=== PATIENT | female | born 1995 | race Caucasian/White ===

== ENCOUNTER 2017-05-08 17:28 | Emergency (ER) | payer SELFPAY ==
[2017-05-08 17:29] VITALS: BP 153/95; PULSE 115; RESP 16; TEMP 36.6; O2SAT 99; BMI 29.2
--- NOTE | 2017-05-08 17:56 | NURSING ---
NO OLD EKGS
--- NOTE | 2017-05-08 17:57 | EKG12_ITS ---
Test Reason : CP Blood Pressure : / mmHG Vent. Rate : 100 BPM Atrial Rate : 100 BPM P-R Int : 128 ms QRS Dur : 072 ms QT Int : 358 ms P-R-T Axes : 034 065 037 degrees QTc Int : 461 ms Normal sinus rhythm Normal ECG Confirmed by CLARICE THOMAS ([id number]), clinical editor FLAKO SUMMERS ([id number]) on 05/11/2017 1:17:22 PM Referred By: GABI Confirmed By:CLARICE THOMAS
[2017-05-08] MEDS: 0.9% Normal Saline 1,000 ML 150 ML IV (18:12)
[2017-05-08] MEDS: Ketorolac 30 MG/ML Syringe IV (18:12)
[2017-05-08 18:23] LABS: Absolute Lymphocyte Count 2.44 X10^3/ul (0.83-4.51); Basophil# 0.02 X10^3/uL; Basophil% 0.2 % (0-1); Eosinophil# 0.09 X10^3/uL; Hematocrit 43.2 % (37-47); Hemoglobin 13.6 g/dl (12.0-15.0); Lymphocyte # 2.44 X10^3/ul (4.0); Mean Corp Hgb Conc 31.5 g/gl (32-36); Mean Corpuscular Hgb 28.1 pg (27.0-32.0); Mean Corpuscular Volume 89.3 fL (81-99); Mean Platelet Vol. 9.5 fl (6.2-12.0); Monocyte# 0.82 X10^3/uL; Monocyte% 8.7 % (0-10); Neutrophil # 5.99 X10^3/uL (2.7-7.7); Neutrophil % 63.9 % (47-70); Platelet Count 358 K/mm3 (150-450); RBC Distribution Width SD 42.6 fl (35.1-43.9); Red Blood Count 4.84 M/mm3 (4.2-5.4); White Blood Count 9.4 K/mm3 (4.4-11.0)
[2017-05-08 18:24] LABS: POSITIVE COUNT NO; POSITIVE DIFFERENTIAL NO; POSITIVE MORPHOLOGY NO
--- NOTE | 2017-05-08 18:28 | RAD_ITS ---
XR Chest 2 Views INDICATION: INTERMITTENT CHEST PAIN FOR 2-3 WEEKS. WORSE TODAY COMPARISON: None FINDINGS: Heart size and pulmonary vascularity are within normal limits. The lungs are clear without evidence of airspace consolidation or pleural effusion. The osseous structures are grossly unremarkable. RAD/Chest PA and Lateral IMPRESSION: No radiographic evidence of acute intrathoracic disease. at 1931 Reported and signed by: Parvin Mathews MD Electronically Signed: Parvin Mathews MD at 18:29 EST Tel , Service support ,
[2017-05-08 18:34] LABS: D-Dimer Quantitative (DVT/PE) < 0.27 FEU/ug/m (0.27-0.49)
[2017-05-08 18:39] LABS: Anion Gap 6 (5-15); BUN 9 mg/dL (7-18); Calcium,Total 9.2 mg/dL (8.5-10.1); Chloride 105 mmol/L (98-107); Creatinine, Serum 0.64 mg/dL (0.55-1.02); EST Glomerular Filtration Rate 124 mL/min (>60); Est Glom Filt Rate - Afr Amer 150 mL/min (>60); Estimated Creatinine Clearance 121.08 ml/min; Glucose 92 mg/dL (74-106); Potassium 3.9 mmol/L (3.5-5.1); Sodium Level 139 mmol/L (136-145)
--- NOTE | 2017-05-08 19:18 | ED.VISSUMM ---
- ER Visit Summary Date of Service: 05/08/17 Chief Complaint: Chest pain History of Present Illness: The patient is a 21 F who reports intermittent chest pain for the last 3 weeks. She reports mild lightheadedness today only. She does state she feels like her heart races fast when this happens. She has not yet checked her pulse rate with these episodes. She denies coronary vascular or PE risk factors. Physical Examination: Blood pressure is 153/95, temperature 97.9, heart rate 115, respiratory rate 16, pulse ox 99% on room air. Head and neck examination is unremarkable. Heart is slightly tachycardic and regular. Lung sounds are clear. Does have mild left anterior chest wall tenderness. No crepitus is noted. Abdomen is soft and nontender. Lower extremity examination reveals normal strength and sensation. No calf tenderness or edema is noted. Test Results: EKG is sinus at 100 with no acute ischemia. Two-view chest x-ray is unremarkable. CBC and chemistry studies are normal. Troponin is less than 0.02. D-dimer is less than 0.27. Emergency Department Course and Treatment: She was given Toradol and IV fluids. On repeat evaluation she is resting comfortable. Heart rate is 94. Test results were discussed with her. I advised her that I do not have a definitive cause for her symptoms. I do have concern that she claims her heart races during these episodes. She does need to be seen for follow-up and may require a Holter monitor. Treatment Plan: [] Disposition: Discharge Impression: Chest pain, uncertain etiology This note was generated with [employer] dictation software. It may contain incorrect words, spelling, and punctuation that were not noted in review of the chart prior to signing ED Disposition - Plan for ED Patient: Chief Complaint: Chest Pain Referrals: Ramón Dent DO [Primary Care Provider] -
--- NOTE | 2017-05-08 19:23 | ED.DCSUM_ITS ---
- ER Visit Summary Date of Service: 05/08/17 Chief Complaint: Chest pain History of Present Illness: The patient is a 21 F who reports intermittent chest pain for the last 3 weeks. She reports mild lightheadedness today only. She does state she feels like her heart races fast when this happens. She has not yet checked her pulse rate with these episodes. She denies coronary vascular or PE risk factors. Physical Examination: Blood pressure is 153/95, temperature 97.9, heart rate 115 , respiratory rate 16, pulse ox 99% on room air. Head and neck examination is unremarkable. Heart is slightly tachycardic and regular. Lung sounds are clear. Does have mild left anterior chest wall tenderness. No crepitus is noted. Abdomen is soft and nontender. Lower extremity examination reveals normal strength and sensation. No calf tenderness or edema is noted. Test Results: EKG is sinus at 100 with no acute ischemia. Two-view chest x-ray is unremarkable. CBC and chemistry studies are normal. Troponin is less than 0.02. D-dimer is less than 0.27. Emergency Department Course and Treatment: She was given Toradol and IV fluids. On repeat evaluation she is resting comfortable. Heart rate is 94. Test results were discussed with her. I advised her that I do not have a definitive cause for her symptoms. I do have concern that she claims her heart races during these episodes. She does need to be seen for follow-up and may require a Holter monitor. Treatment Plan: [] Disposition: Discharge Impression: Chest pain, uncertain etiology This note was generated with [employer] dictation software. It may contain incorrect words, spelling, and punctuation that were not noted in review of the chart prior to signing ED Disposition - Plan for ED Patient: Chief Complaint: Chest Pain Referrals: Ramón Dent DO [Primary Care Provider] -
--- NOTE | 2017-05-08 19:23 | ED.DEP ---
ED Disposition - Plan for ED Patient: Disposition: Home or Assisted Living Chief Complaint: Chest Pain Instructions: ED Chest Pain Atypical Unkn Cause Referrals: Gutierrez Wu III, MD [STAFF PHYSICIAN] - As soon as possible
[2017-05-08 19:28] LABS: Pregnancy, Serum, hCG Quali. NEGATIVE Negative (0-9 Nonpreg)
[2017-05-08 19:37] VITALS: BP 140/88; PULSE 88; RESP 20; O2SAT 97
== END 2017-05-08 19:39 | disposition home or self-care (01) ==
PROVIDERS: Emergency Provider Emergency Medicine; Family Provider Pediatrics; PCP Pediatrics
DX: R07.9 Chest pain, unspecified (principal); R42 Dizziness and giddiness; R00.0 Tachycardia, unspecified
CPT/HCPCS: 71046; 80048; 84484; 84703; 85025; 85379; 93005; 96361; 96374; 99284; J7030; A4216

== ENCOUNTER 2018-02-14 19:02 | Emergency (ER) | payer MEDICAID, SELFPAY ==
[2018-02-14 19:03] VITALS: BP 153/97; PULSE 96; RESP 15; TEMP 35.7; O2SAT 100; BMI 33.5
[2018-02-14 22:18] VITALS: BP 112/74; PULSE 71; RESP 15; O2SAT 99
--- NOTE | 2018-02-14 23:59 | ED.VISSUMM ---
- ER Visit Summary Date of Service: 02/14/18 Chief Complaint: Cramping lower abdominal/pelvic pain with vaginal bleeding History of Present Illness: The patient is a 22 F who presents with vaginal bleeding and pelvic cramping pain that started today. The bleeding has resolved. The cramping pain is much milder. She denies orthostatic symptoms. She does report nausea without vomiting diarrhea. She does report frequency without hematuria or dysuria. She states she has A negative blood type and her has A positive blood type. She denies history of bruising or bleeding disorder. She has no other complaints please read written note Physical Examination: Vital signs are normal. She appears in no distress. HEENT is unremarkable. Heart is regular without murmur, gallop or rub. S1 and S2 are normal. Lungs are clear to auscultation with good movement of air bilaterally. Abdomen is soft nontender bowel sounds are present normal. External genitalia normal. There is no blood in the vaginal vault. There is small amount of blood noted near the external loss which appears normal. Uterus is mildly tender. No cervical motion tenderness. No obvious adnexal mass. Test Results: Trans-abdominal pelvic ultrasound performed by la reveals a single live IUP with heart rate of 140-150. There is no gross anomaly noted. The placenta appears normal. Emergency Department Course and Treatment: ABO Rh and RhoGam and transabdominal ultrasound performed by la Treatment Plan: Appropriate home-going instructions and follow-up with the director educational radio at [facility] Disposition: Discharged to home in stable condition with appropriate home-going instruction Impression: Threatened miscarriage This note was generated with [employer] dictation software. It may contain incorrect words, spelling, and punctuation that were not noted in review of the chart prior to signing ED Disposition - Plan for ED Patient: Disposition: Home or Assisted Living Chief Complaint: Vag Bld, Preg Instructions: ED Miscarriage Poss Referrals: Ramón Dent DO [Primary Care Provider] - Angie Escalera MD [STAFF PHYSICIAN] - 3-5 Days
--- NOTE | 2018-02-15 00:03 | ED.DCSUM_ITS ---
- ER Visit Summary Date of Service: 02/14/18 Chief Complaint: Cramping lower abdominal/pelvic pain with vaginal bleeding History of Present Illness: The patient is a 22 F who presents with vaginal bleeding and pelvic cramping pain that started today. The bleeding has resolved. The cramping pain is much milder. She denies orthostatic symptoms. She does report nausea without vomiting diarrhea. She does report frequency without hematuria or dysuria. She states she has A negative blood type and her has A positive blood type. She denies history of bruising or bleeding disorder. She has no other complaints please read written note Physical Examination: Vital signs are normal. She appears in no distress. HEENT is unremarkable. Heart is regular without murmur, gallop or rub. S1 and S2 are normal. Lungs are clear to auscultation with good movement of air bilaterally. Abdomen is soft nontender bowel sounds are present normal. External genitalia normal. There is no blood in the vaginal vault. There is small amount of blood noted near the external loss which appears normal. Uterus is mildly tender. No cervical motion tenderness. No obvious adnexal mass. Test Results: Trans-abdominal pelvic ultrasound performed by wi reveals a single live IUP with heart rate of 140-150. There is no gross anomaly noted. The placenta appears normal. Emergency Department Course and Treatment: ABO Rh and RhoGam and transabdominal ultrasound performed by wi Treatment Plan: Appropriate home-going instructions and follow-up with the authorization manager at [facility] Disposition: Discharged to home in stable condition with appropriate home-going instruction Impression: Threatened miscarriage This note was generated with [employer] dictation software. It may contain incorrect words, spelling, and punctuation that were not noted in review of the chart prior to signing ED Disposition - Plan for ED Patient: Disposition: Home or Assisted Living Chief Complaint: Vag Bld, Preg Instructions: ED Miscarriage Poss Referrals: Ramón Dent DO [Primary Care Provider] - Angie Escalera MD [STAFF PHYSICIAN] - 3-5 Days
[2018-02-15 00:09] VITALS: BP 118/75; PULSE 62; RESP 15; O2SAT 98
== END 2018-02-15 00:10 | disposition home or self-care (01) ==
PROVIDERS: Emergency Provider Emergency Medicine; Family Provider Pediatrics; PCP Pediatrics
DX: O20.0 Threatened abortion (principal); Z3A.00 Weeks of gestation of pregnancy not specified
CPT/HCPCS: 36415; 85461; 86900; 90384; 96372; 99282; J2790

== ENCOUNTER 2018-05-27 16:45 | Outpatient (CLI) | payer MEDICAID, SELFPAY ==
[2018-05-27 17:18] VITALS: BMI 40.6
--- NOTE | 2018-05-27 18:36 | OB.TRI.NOTE ---
History of Present Illness Date of Service: 05/27/18 Was patient seen by the physician?: Yes Reason For Visit: DECREASED MOVEMENT Date of Service: 05/27/18 Gestational age: 28w 3d History of Present Illness: 22-year-old 1 para 0 at 28 weeks gestation presents complaining of decreased movement for the past couple of days. She reports that you she used to feel more good vigorous movements. However over the last 48 hours she feels the fetus has been more quiet. She is feeling some movements, especially early in the morning and late at night. She denies any vaginal bleeding, trauma, contractions or leaking of fluid. She denies any other complaints. Allergies morphine Allergy (Verified 05/08/17 17:31) Rash NST - FHR Rate Baby A Baseline: 130 bpm Variability:: Moderate Accelerations:: 10 x 10 Decelerations:: Variable - occas NST Reactive:: Appropriate for gestational age Uterine Activity:: quiet Impression/Plan Brief US done, normal AFV, + gross FM, normal tone, transverse fetus a/p 22 YOF @ 28+ weeks gest w/ decreased FM d/w her kick counts normal AFV and NSt is AGA f/u in office as scheduled or as needed
== END 2018-05-27 18:40 | disposition home or self-care (01) ==
LOC: WPOUT 16:50 → WP 16:51
PROVIDERS: Family Provider Pediatrics; PCP Pediatrics; Referring Provider Obstetrics & Gynecology; Visit Provider Obstetrics & Gynecology
DX: O36.8130 Decreased fetal movements, third trimester, not applicable or unspecified (principal); O32.2XX0 Maternal care for transverse and oblique lie, not applicable or unspecified; Z3A.28 28 weeks gestation of pregnancy
CPT/HCPCS: 59025; 59050; 76815; 99218; G0378

== ENCOUNTER 2018-06-14 17:06 | Emergency (ER) | payer MEDICAID, SELFPAY ==
[2018-06-14 17:08] VITALS: BP 147/92; PULSE 109; RESP 18; TEMP 36.7; O2SAT 98; BMI 45.3
[2018-06-14 17:21] VITALS: PULSE 104; O2SAT 98
--- NOTE | 2018-06-14 17:25 | EKG12_ITS ---
Test Reason : SOB Blood Pressure : / mmHG Vent. Rate : 097 BPM Atrial Rate : 097 BPM P-R Int : 132 ms QRS Dur : 072 ms QT Int : 356 ms P-R-T Axes : 020 036 017 degrees QTc Int : 452 ms Normal sinus rhythm Normal ECG Confirmed by CLARICE THOMAS ([id number]), newspaper or periodical editor PRINCESS MARTINS ([id number]) on 06/17/2018 11:09:43 AM Referred By: LAITH Confirmed By:CLARICE THOMAS
--- NOTE | 2018-06-14 17:38 | RAD_ITS ---
STUDY: X-RAY CHEST REASON FOR EXAM: Female, 22 years old. Chest pain with sob TECHNIQUE: Single AP portable view of the chest. COMPARISON: 05/08/2017. FINDINGS: The lungs are clear and expanded. There is no demonstrated pleural abnormality. Normal size heart. Normal mediastinum and yenifer. Normal visualized pulmonary arteries. Normal visualized aortic arch and descending thoracic aorta. Normal visualized thoracic spine. Normal visualized ribs, clavicles, and shoulders. There is no demonstrated abnormality of the visualized soft tissue structures of the upper abdomen. RAD/Chest 1 View (Portable) IMPRESSION: Normal x-ray examination of the chest. Electronically Signed: Joseph Landaverde MD at 18:21 EDT , Service support ,
[2018-06-14 17:47] LABS: Absolute Lymphocyte Count 2.29 X10^3/ul (0.83-4.51); Absolute Neutrophil Count 8.4 X10^3/uL (2.0-7.7); Basophil# 0.02 X10^3/uL; Basophil% 0.2 % (0-1); Eosinophil# 0.16 X10^3/uL; Eosinophils% 1.3 % (0-5); Hematocrit 34.6 % (37-47); Lymphocyte # 2.29 X10^3/ul (4.0); Lymphocyte % 18.4 % (19-41); Mean Corp Hgb Conc 31.8 g/gl (32-36); Mean Corpuscular Hgb 27.8 pg (27.0-32.0); Mean Corpuscular Volume 87.4 fL (81-99); Mean Platelet Vol. 9.5 fl (6.2-12.0); Monocyte# 1.49 X10^3/uL; Neutrophil # 8.35 X10^3/uL (2.7-7.7); Neutrophil % 67.2 % (47-70); Platelet Count 307 K/mm3 (150-450); RBC Distribution Width CV 13.3 % (11.6-14.6); RBC Distribution Width SD 42.8 fl (35.1-43.9); Red Blood Count 3.96 M/mm3 (4.2-5.4); White Blood Count 12.4 K/mm3 (4.4-11.0)
[2018-06-14 17:49] LABS: POSITIVE COUNT NO; POSITIVE DIFFERENTIAL NO; POSITIVE MORPHOLOGY NO
[2018-06-14 17:52] VITALS: O2SAT 98
[2018-06-14 17:59] LABS: International Normalized Ratio 1.1; Prothrombin Time (Protime)PT. 13.7 SECONDS (11.7-14.9)
[2018-06-14 18:00] LABS: Partial Thromboplast Time 25.1 Seconds (24.1-36.2)
[2018-06-14 18:06] LABS: D-Dimer Quantitative (DVT/PE) 0.56 FEU/ug/m (0.27-0.49)
[2018-06-14 18:07] LABS: AST(SGOT) 17 U/L (15-37); Alanine Aminotransfer ALT/SGPT 18 U/L (13-56); Albumin, Serum 2.5 g/dL (3.2-5.0); Alkaline Phosphatase 107 U/L (45-117); Anion Gap 5 (5-15); BUN 5 mg/dL (7-18); BUN/Creat Ratio 10.1 RATIO (10-20); Bilirubin, Direct < 0.05 mg/dL (0.00-0.30); Calcium,Total 8.3 mg/dL (8.5-10.1); Chloride 108 mmol/L (98-107); EST Glomerular Filtration Rate 165 mL/min (>60); Est Glom Filt Rate - Afr Amer 200 mL/min (>60); Estimated Creatinine Clearance 147.23 ml/min; Globulin 4.2 g/dL (2.2-4.2); Glucose 64 mg/dL (74-106); Potassium 3.6 mmol/L (3.5-5.1); Protein, Total 6.7 g/dL (6.4-8.2); Sodium Level 138 mmol/L (136-145); Uric Acid 2.5 mg/dL (2.6-6.0)
--- NOTE | 2018-06-14 18:08 | ED.RN ---
dr. kirkpatrick informed of d-dimer 0.56.
[2018-06-14 18:14] LABS: BNP,B-Type NATRIURETIC PEPTIDE 7.8 pg/mL (0-100)
--- NOTE | 2018-06-14 18:21 | CT_ITS ---
STUDY: CTA CHEST REASON FOR EXAM: Female, 22 years old. SOBSSOBSCTA - Chest 31 WEEKS WITH WEIGHT GAIN OF 24 LBS IN ONE WEEK. SOB RADIATION DOSAGE (If Supplied By Facility): CTDIvol = ( 12.66 ) mGy, DLP = ( 437.87 ) mGycm TECHNIQUE: The examination was performed with the intravenous administration of 100ML IV Isovue 370. Post-processing of the angiographic images was performed, with multiplanar reformation and 3D reconstruction. Individualized dose optimization techniques were used for this CT. COMPARISON: None. FINDINGS: Normal enhancement of the main pulmonary artery and right and left pulmonary arteries. Normal enhancement of the bilateral peripheral pulmonary arteries. There is no demonstrated pulmonary embolism. Normal thoracic aorta and visualized great vessels. There is no demonstrated aortic dissection. Normal heart and pericardium. Normal mediastinum. Normal hilar regions. Normal visualized trachea and bronchi. The lungs are under expanded. Normal pulmonary parenchyma. Normal pleura. Normal chest wall structures. Normal osseous structures. There is diffuse fatty infiltration of the liver. CT/CTA Chest W/WO Contrast IMPRESSION: Normal CTA chest examination, without a demonstrated pulmonary embolism or arterial dissection. No acute chest disease. Electronically Signed: Joseph Landaverde MD at 19:29 EDT , Service support ,
[2018-06-14 19:07] VITALS: PULSE 106; RESP 18; O2SAT 97
[2018-06-14 19:26] LABS: Mucous, Urine 0 SEEN /hpf (<or=2+); Red Blood Cells-Urine 0 SEEN /hpf (0-5)
[2018-06-14 19:34] LABS: Color, Urine Yellow (Yellow); Glucose, Dipstick 50 mg/dl (Normal); Ketone-Dipstick Negative (Negative); Leukocyte Esterase-Dipstick 25 /ul (Negative); Nitrite-Dipstick Negative (Negative); Occult Blood-Urine Negative /ul (Negative); Protein-Dipstick 15 mg/dl (Negative); Urine Bilirubin Dipstick Negative (Negative); Urine Clarity Sl. Cloudy (Clear); Urine Urobilinogen Normal (Normal)
[2018-06-14 19:43] LABS: Bacteria RARE /hpf (None Seen); Squamous Epithelial Cells - UA 0-5 SEEN /hpf (5-10); White Blood Cells 0-5 SEEN /hpf (0-5)
--- NOTE | 2018-06-14 21:23 | ED.DCSUM_ITS ---
- ER Visit Summary Date of Service: 06/14/18 Chief Complaint: Short of breath, weight gain History of Present Illness: The patient is a 22 F who is currently 31 weeks . She reports increased shortness of breath with exertion along with chest heaviness. She did syncopal episode 1 week ago at work. She was sent over from her [employer] SUPERVIS[employer]'s office with the above complaints along with a 12 pound weight gain in the past 1 week. Physical Examination: Blood pressure is 147/92, temperature 98.1, heart rate 109, respiratory rate 18, pulse ox 98% on room air. Patient sitting upright in bed no acute distress. She is alert and talkative. Head neck examination normal. Heart is slightly tachycardic and regular. Lungs sounds are clear. Abdomen is soft and gravid. Test Results: EKG is sinus at 97 with no sign of acute ischemia. Portable chest x-ray normal. CBC was a white count 12.4 with normal differential. Hemoglobin is 11. Chemistry studies significant for glucose of 64. LFTs normal. Coags normal. Uric acid is normal. Urinalysis and BNP are normal. D-dimer is elevated at 0.56. CTA of the chest is obtained and unremarkable. Emergency Department Course and Treatment: Blood pressures remained stable in the emergency room. At time of discharge pressure is 129/90. I spoke with Dr. Escalera, the patient's STOREROOM SUPERVISOR. Patient will be seen in the office later this week. If patient is not feeling improved tomorrow she is to call the office. Patient is to increase fluids and rest. Treatment Plan: [] Disposition: Discharge Impression: 1. Dyspnea 2. Third trimester This note was generated with [employer] dictation software. It may contain incorrect words, spelling, and punctuation that were not noted in review of the chart prior to signing ED Disposition - Plan for ED Patient: Disposition: Home or Assisted Living Instructions: ED Dyspnea Shortness of Breath, ED Pelvic Pain Preg UKO 2 or 3 Tri Referrals: Angie Escalera MD [STAFF PHYSICIAN] - Keep Renita appointment Additional Instructions: Call office tomorrow if not feeling improved.
[2018-06-14 21:33] VITALS: BP 129/90; PULSE 96; RESP 20; O2SAT 100
== END 2018-06-14 21:33 | disposition home or self-care (01) ==
PROVIDERS: Emergency Provider Emergency Medicine
DX: O99.513 Diseases of the respiratory system complicating pregnancy, third trimester (principal); R06.00 Dyspnea, unspecified; R74.8 Abnormal levels of other serum enzymes; Z3A.31 31 weeks gestation of pregnancy
CPT/HCPCS: 71045; 71275; 80048; 80076; 81001; 83880; 84550; 85025; 85379; 85610; 85730; 93005; 99284; Q9967

== ENCOUNTER 2018-06-29 17:27 | Observation (INO) | payer MEDICAID, SELFPAY ==
[2018-06-29 16:53] VITALS: BMI 40.8
[2018-06-29] MEDS: 0.9% Normal Saline 1,000 ML 500 ML IV (17:20)
[2018-06-29 17:57] LABS: Fetal Fibronectin POSITIVE
[2018-06-29] MEDS: 0.9% Normal Saline 1,000 ML 50 ML IV (18:25)
[2018-06-29 18:29] LABS: Color, Urine Yellow (Yellow); Glucose, Dipstick 250 mg/dl (Normal); Ketone-Dipstick Negative (Negative); Leukocyte Esterase-Dipstick 25 /ul (Negative); Nitrite-Dipstick Negative (Negative); Occult Blood-Urine Negative /ul (Negative); Protein-Dipstick Negative (Negative); Specific Gravity, Urine 1.015 (1.002-1.030); Urine Bilirubin Dipstick Negative (Negative); Urine Clarity Clear (Clear); Urine Urobilinogen 1 mg/dl (Normal); Urine pH 6.5 (5.0 - 8.0)
--- NOTE | 2018-06-29 20:17 | OB.TRI.NOTE ---
History of Present Illness Date of Service: 06/29/18 Was patient seen by the physician?: Yes Reason For Visit: R/O PRE TERM LABOR Date of Service: 06/29/18 Gestational age: 33.1 History of Present Illness: 23yo @ 33.1 wks sent from office to r/o labor. pt was seen in office- NST performed due to patient c/o back pain. Contractions found to be every 2-3 minutes. cervix at that time was closed (external os FT), soft and thick -3. head was appreciated- significant amount of movement on NST in office and here on L&D. Ultrasound done on L&D reveals BREECH presentation. Allergies morphine Allergy (Verified 06/29/18 16:55) Rash peanut Allergy (Verified 06/29/18 16:55) Anaphylaxis Laboratory Studies: Laboratory Tests 06/29/18 06/29/18 Range/Units 17:45 16:30 Urine Color Yellow (Yellow) Urine Clarity Clear (Clear) Urine pH 6.5 (5.0 - 8.0) Ur Specific [place] 1.015 (1.002-1.030) Urine Protein Negative (Negative) mg/dl Urine Glucose (UA) 250 H (Normal) mg/dl Urine Ketones Negative (Negative) mg/dl Urine Occult Blood Negative (Negative) /ul Urine Nitrite Negative (Negative) Urine Bilirubin Negative (Negative) mg/dL Urine Urobilinogen 1 H (Normal) mg/dl Ur Leukocyte Esterase 25 H (Negative) /ul Fibronectin POSITIVE H Physical Exam General: Alert, Oriented x3 Abdomen: Soft, Gravid Neurological: Cranial nerves II-XII grossly intact CYLINDER HONER: Normal external genitalia Estimated gestational size: Appropriate for gestational size Presentation: Breech Cervix Dilation (cm): 0.5 Station: -3 Effacement (%): 40 NST - FHR Rate Baby A Baseline: 130s Variability:: Moderate Accelerations:: 15 x 15 Decelerations:: None NST Reactive:: Yes FHR Category:: Category I Uterine Activity:: q2-3min Impression/Plan 23yo @ 33.1 wks with contractions- r/o labor 1) FFN - Positive- collected in office prior to VE 2) Breech confirmed on ultrasound 3) Celestone 12mg IM now and repeat 24 hrs 4) finish liter of NS then KVO and allow PO fluids 5) Cervical exam minimal change from office- however now unable to palpate presenting part 6) monitor FHR/TOCO 7) overnight observation at this time
--- NOTE | 2018-06-29 20:23 | OB.TRI.HP_ITS ---
History of Present Illness Date of Service: 06/29/18 Was patient seen by the physician?: Yes Reason For Visit: R/O PRE TERM LABOR Date of Service: 06/29/18 Gestational age: 33.1 History of Present Illness: 23yo @ 33.1 wks sent from office to r/o labor. pt was seen in office- NST performed due to patient c/o back pain. Contractions found to be every 2-3 minutes. cervix at that time was closed (external os FT), soft and thick -3. head was appreciated- significant amount of movement on NST in office and here on L&D. Ultrasound done on L&D reveals BREECH presentation. Allergies morphine Allergy (Verified 06/29/18 16:55) Rash peanut Allergy (Verified 06/29/18 16:55) Anaphylaxis Laboratory Studies: Laboratory Tests 06/29/18 06/29/18 Range/Units 17:45 16:30 Urine Color Yellow (Yellow) Urine Clarity Clear (Clear) Urine pH 6.5 (5.0 - 8.0) Ur Specific [place] 1.015 (1.002-1.030) Urine Protein Negative (Negative) mg/dl Urine Glucose (UA) 250 H (Normal) mg/dl Urine Ketones Negative (Negative) mg/dl Urine Occult Blood Negative (Negative) /ul Urine Nitrite Negative (Negative) Urine Bilirubin Negative (Negative) mg/dL Urine Urobilinogen 1 H (Normal) mg/dl Ur Leukocyte Esterase 25 H (Negative) /ul Fibronectin POSITIVE H Physical Exam General: Alert, Oriented x3 Abdomen: Soft, Gravid Neurological: Cranial nerves II-XII grossly intact BUILDING APPRAISER: Normal external genitalia Estimated gestational size: Appropriate for gestational size Presentation: Breech Cervix Dilation (cm): 0.5 Station: -3 Effacement (%): 40 NST - FHR Rate Baby A Baseline: 130s Variability:: Moderate Accelerations:: 15 x 15 Decelerations:: None NST Reactive:: Yes FHR Category:: Category I Uterine Activity:: q2-3min Impression/Plan 23yo @ 33.1 wks with contractions- r/o labor 1) FFN - Positive- collected in office prior to VE 2) Breech confirmed on ultrasound 3) Celestone 12mg IM now and repeat 24 hrs 4) finish liter of NS then KVO and allow PO fluids 5) Cervical exam minimal change from office- however now unable to palpate presenting part 6) monitor FHR/TOCO 7) overnight observation at this time
[2018-06-29] MEDS: Betamethasone/Betamethasone 30 MG/5 ML Vial 12 MG IM (20:40)
[2018-06-29] MEDS: Acetaminophen 325 MG Tablet 650 MG PO (21:23)
[2018-06-30] MEDS: Acetaminophen 325 MG Tablet 650 MG PO (02:46)
--- NOTE | 2018-06-30 07:08 | OB.TRI.PN ---
Progress Notes Date of Service: 06/30/18 Progress Note: pt seen at bedside, doing well. pt reports having constant cramping. denies vaginal bleeding. good FM overnight. Cervical exam unchanged FT/thick and soft/ Floating. BREECH. a/P 23yo @ 33.2 wks- contractions 1) NST today 2) Celestone #2 injection tonight 8pm 3) PTL reviewed 4) f/u in office wednesday for Ultrasound and OB visit 5) dc home after reactive NST Laboratory Studies: Laboratory Tests 06/29/18 06/29/18 Range/Units 17:45 16:30 Urine Color Yellow (Yellow) Urine Clarity Clear (Clear) Urine pH 6.5 (5.0 - 8.0) Ur Specific [place] 1.015 (1.002-1.030) Urine Protein Negative (Negative) mg/dl Urine Glucose (UA) 250 H (Normal) mg/dl Urine Ketones Negative (Negative) mg/dl Urine Occult Blood Negative (Negative) /ul Urine Nitrite Negative (Negative) Urine Bilirubin Negative (Negative) mg/dL Urine Urobilinogen 1 H (Normal) mg/dl Ur Leukocyte Esterase 25 H (Negative) /ul Fibronectin POSITIVE H
== END 2018-06-30 08:10 | disposition home or self-care (01) ==
LOC: WPOUT 06-30 09:35
PROVIDERS: Admitting Provider Obstetrics & Gynecology; Referring Provider Obstetrics & Gynecology; Visit Provider Obstetrics & Gynecology
DX: O62.9 Abnormality of forces of labor, unspecified (principal); Z3A.33 33 weeks gestation of pregnancy; O32.1XX0 Maternal care for breech presentation, not applicable or unspecified; O47.03 False labor before 37 completed weeks of gestation, third trimester
CPT/HCPCS: 96360; 96361; 36415; 59025; 59050; 76815; 81002; 82565; 82570; 82731; 84112; 84156; 84450; 84460; 84550; 85027; 85610; 85730; 96372; 99218; J7030; G0378; J0702

== ENCOUNTER 2018-06-30 22:37 | Outpatient (CLI) | payer MEDICAID, SELFPAY ==
[2018-06-29 16:53] VITALS: BMI 40.8
[2018-06-30] MEDS: Betamethasone/Betamethasone 30 MG/5 ML Vial 12 MG IM (23:16)
[2018-06-30 23:27] VITALS: BMI 41.2
[2018-07-01 00:19] LABS: Hematocrit 31.6 % (37-47); Hemoglobin 10.1 g/dl (12.0-15.0); Mean Corpuscular Hgb 27.2 pg (27.0-32.0); Mean Corpuscular Volume 84.9 fL (81-99); Mean Platelet Vol. 9.7 fl (6.2-12.0); Platelet Count 349 K/mm3 (150-450); RBC Distribution Width CV 13.3 % (11.6-14.6); Red Blood Count 3.72 M/mm3 (4.2-5.4); White Blood Count 15.8 K/mm3 (4.4-11.0)
[2018-07-01 00:22] LABS: International Normalized Ratio 1.1; Prothrombin Time (Protime)PT. 14.2 SECONDS (11.7-14.9); Scan Indicated on CBC? Y/N NO
[2018-07-01 00:23] LABS: Partial Thromboplast Time 25.6 Seconds (24.1-36.2)
[2018-07-01 00:26] LABS: Protein, Urine (Random) 23.3 mg/dL (<11.9); Protein:Creat Ratio 218 mg/g CRE (0-200)
[2018-07-01 00:31] LABS: ROM Internal Control Test YES-OK TO RESULT pt. (Internal QC); ROM Patient Test Negative (Negative); Record Kit Lot#, ROM+ J7836
[2018-07-01 00:31] LABS: AST(SGOT) 14 U/L (15-37); Alanine Aminotransfer ALT/SGPT 14 U/L (13-56); Creatinine, Serum 0.46 mg/dL (0.55-1.02); EST Glomerular Filtration Rate 180 mL/min (>60); Est Glom Filt Rate - Afr Amer 217 mL/min (>60); Estimated Creatinine Clearance 165.65 ml/min; Uric Acid 2.9 mg/dL (2.6-6.0)
--- NOTE | 2018-07-01 01:13 | OB.TRI.NOTE ---
History of Present Illness Was patient seen by the physician?: No Reason For Visit: CELESTONE SHOT Date of Service: 06/30/18 Final BELEM: 08/16/18 Gestational age: 33 Weeks and 3 Days Allergies morphine Allergy (Verified 06/29/18 16:55) Rash peanut Allergy (Verified 06/29/18 16:55) Anaphylaxis Laboratory Studies: Laboratory Tests 06/30/18 06/30/18 06/30/18 Range/Units 23:55 23:50 23:50 WBC (4.4-11.0) K/mm3 RBC (4.2-5.4) M/mm3 Hgb (12.0-15.0) g/dl Hct (37-47) % MCV (81-99) fL MCH (27.0-32.0) pg MCHC (32-36) g/gl RDW (11.6-14.6) % RDW Differential (35.1-43.9) fl Plt Count (150-450) K/mm3 MPV (6.2-12.0) fl PT 14.2 (11.7-14.9) SECONDS INR 1.1 APTT 25.6 (24.1-36.2) Seconds Creatinine 0.46 L (0.55-1.02) mg/dL Estim Creat Clear Calc 165.65 ml/min Est GFR (MDRD) Af Amer 217 (>60) mL/min Est GFR (MDRD) Non-Af 180 (>60) mL/min Uric Acid 2.9 (2.6-6.0) mg/dL AST 14 L (15-37) U/L ALT 14 (13-56) U/L U Random Total Protein (<11.9) mg/dL Urine Creatinine (NO RANGE EST.) mg/dL Protein/Creatinin Ratio (0-200) mg/g CRE Vag Amniotic Fld Detect Negative (Negative) 06/30/18 06/30/18 Range/Units 23:50 23:00 WBC 15.8 H (4.4-11.0) K/mm3 RBC 3.72 L (4.2-5.4) M/mm3 Hgb 10.1 L (12.0-15.0) g/dl Hct 31.6 L (37-47) % MCV 84.9 (81-99) fL MCH 27.2 (27.0-32.0) pg MCHC 32.0 (32-36) g/gl RDW 13.3 (11.6-14.6) % RDW Differential 40.0 (35.1-43.9) fl Plt Count 349 (150-450) K/mm3 MPV 9.7 (6.2-12.0) fl PT (11.7-14.9) SECONDS INR APTT (24.1-36.2) Seconds Creatinine (0.55-1.02) mg/dL Estim Creat Clear Calc ml/min Est GFR (MDRD) Af Amer (>60) mL/min Est GFR (MDRD) Non-Af (>60) mL/min Uric Acid (2.6-6.0) mg/dL AST (15-37) U/L ALT (13-56) U/L U Random Total Protein 23.3 H (<11.9) mg/dL Urine Creatinine 107.00 (NO RANGE EST.) mg/dL Protein/Creatinin Ratio 218 H (0-200) mg/g CRE Vag Amniotic Fld Detect (Negative) NST - FHR Rate Baby A Baseline: 125 Variability:: Moderate Accelerations:: 15 x 15 Decelerations:: None NST Reactive:: Yes Uterine Activity:: irritability Impression/Plan NST for threatened PTL
== END 2018-07-01 00:40 | disposition home or self-care (01) ==
LOC: WPOUT 22:41 → WP 22:41
PROVIDERS: Referring Provider Obstetrics & Gynecology; Visit Provider Obstetrics & Gynecology
DX: O47.03 False labor before 37 completed weeks of gestation, third trimester (principal); Z3A.33 33 weeks gestation of pregnancy
CPT/HCPCS: 96372; 36415; 59025; 59050; 82565; 82570; 84112; 84156; 84450; 84460; 84550; 85027; 85610; 85730; 99218; G0378

== ENCOUNTER 2018-07-17 20:55 | Outpatient (CLI) | payer MEDICAID, SELFPAY ==
[2018-07-17 21:40] VITALS: BMI 41.2
[2018-07-17 22:00] LABS: ROM Internal Control Test YES-OK TO RESULT pt. (Internal QC); ROM Patient Test Negative (Negative)
[2018-07-17 22:46] LABS: Group B Strep DNA By PCR Negative (Negative); Internal Control PASS; Probe Check PASS; Specimen Processing Control PASS
[2018-07-17 22:50] LABS: Color, Urine Yellow (Yellow); Glucose, Dipstick Normal (Normal); Ketone-Dipstick 5 mg/dl (Negative); Leukocyte Esterase-Dipstick 25 /ul (Negative); Nitrite-Dipstick Negative (Negative); Occult Blood-Urine 10 /ul (Negative); Protein-Dipstick Negative (Negative); Urine Bilirubin Dipstick Negative (Negative); Urine Clarity Clear (Clear); Urine Urobilinogen 1 mg/dl (Normal)
[2018-07-17 23:00] LABS: Protein:Creat Ratio 229 mg/g CRE (0-200)
[2018-07-17 23:34] LABS: Hematocrit 32.2 % (37-47); Hemoglobin 9.9 g/dl (12.0-15.0); Mean Corp Hgb Conc 30.7 g/gl (32-36); Mean Corpuscular Hgb 26.1 pg (27.0-32.0); Mean Platelet Vol. 9.7 fl (6.2-12.0); Platelet Count 405 K/mm3 (150-450); RBC Distribution Width SD 43.3 fl (35.1-43.9); Red Blood Count 3.79 M/mm3 (4.2-5.4); Scan Indicated on CBC? Y/N NO; White Blood Count 12.4 K/mm3 (4.4-11.0)
[2018-07-17 23:37] LABS: International Normalized Ratio 1.1; Prothrombin Time (Protime)PT. 13.6 SECONDS (11.7-14.9)
[2018-07-17 23:38] LABS: Partial Thromboplast Time 26.7 Seconds (24.1-36.2)
[2018-07-18 00:04] LABS: Creatinine, Serum 0.53 mg/dL (0.55-1.02); Estimated Creatinine Clearance 143.77 ml/min
[2018-07-18 00:05] LABS: AST(SGOT) 16 U/L (15-37); Alanine Aminotransfer ALT/SGPT 14 U/L (13-56); EST Glomerular Filtration Rate 154 mL/min (>60); Est Glom Filt Rate - Afr Amer 187 mL/min (>60)
--- NOTE | 2018-07-19 10:28 | OB.TRI.HP_ITS ---
- Problem List (1) False labor before 37 completed weeks of gestation during in third trimester, antepartum Status: Acute (2) Vaginal discharge during in third trimester Status: Acute History of Present Illness Date of Service: 07/17/18 Was patient seen by the physician?: No Reason For Visit: R/O LABOR Date of Service: 07/17/18 Final BELEM: 08/16/18 Final BELEM Source: US <20 weeks Gestational age: 36 Weeks and 0 Days History of Present Illness: Patient presents to triage reporting irregular contractions that intensified and some scant clear leaking fluid from vagina. On admission patient's blood pressures were slightly elevated 140s/80s. Patient denies DIEGO, scotoma or RUQ pain. She reports +FM. Patient has a previous triage visit where she received Celestone for concerns of labor. Allergies morphine Allergy (Verified 07/17/18 21:42) Rash peanut Allergy (Verified 07/17/18 21:42) Anaphylaxis Laboratory Studies: Laboratory Tests 07/17/18 07/17/18 07/17/18 Range/Units 23:00 23:00 23:00 WBC 12.4 H (4.4-11.0) K/mm3 RBC 3.79 L (4.2-5.4) M/mm3 Hgb 9.9 L (12.0-15.0) g/dl Hct 32.2 L (37-47) % MCV 85.0 (81-99) fL MCH 26.1 L (27.0-32.0) pg MCHC 30.7 L (32-36) g/gl RDW 14.0 (11.6-14.6) % RDW Differential 43.3 (35.1-43.9) fl Plt Count 405 (150-450) K/mm3 MPV 9.7 (6.2-12.0) fl PT 13.6 (11.7-14.9) SECONDS INR 1.1 APTT 26.7 (24.1-36.2) Seconds Creatinine 0.53 L (0.55-1.02) mg/dL Estim Creat Clear Calc 143.77 ml/min Est GFR (MDRD) Af Amer 187 (>60) mL/min Est GFR (MDRD) Non-Af 154 (>60) mL/min Uric Acid 3.0 (2.6-6.0) mg/dL AST 16 (15-37) U/L ALT 14 (13-56) U/L Urine Color (Yellow) Urine Clarity (Clear) Urine pH (5.0 - 8.0) Ur Specific [place] (1.002-1.030) Urine Protein (Negative) mg/dl Urine Glucose (UA) (Normal) mg/dl Urine Ketones (Negative) mg/dl Urine Occult Blood (Negative) /ul Urine Nitrite (Negative) Urine Bilirubin (Negative) mg/dL Urine Urobilinogen (Normal) mg/dl Ur Leukocyte Esterase (Negative) /ul U Random Total Protein (<11.9) mg/dL Urine Creatinine (NO RANGE EST.) mg/dL Protein/Creatinin Ratio (0-200) mg/g CRE Vag Amniotic Fld Detect (Negative) Group B Strep DNA (Negative) Specimen Comment 07/17/18 07/17/18 07/17/18 Range/Units 22:30 22:30 21:18 WBC (4.4-11.0) K/mm3 RBC (4.2-5.4) M/mm3 Hgb (12.0-15.0) g/dl Hct (37-47) % MCV (81-99) fL MCH (27.0-32.0) pg MCHC (32-36) g/gl RDW (11.6-14.6) % RDW Differential (35.1-43.9) fl Plt Count (150-450) K/mm3 MPV (6.2-12.0) fl PT (11.7-14.9) SECONDS INR APTT (24.1-36.2) Seconds Creatinine (0.55-1.02) mg/dL Estim Creat Clear Calc ml/min Est GFR (MDRD) Af Amer (>60) mL/min Est GFR (MDRD) Non-Af (>60) mL/min Uric Acid (2.6-6.0) mg/dL AST (15-37) U/L ALT (13-56) U/L Urine Color Yellow (Yellow) Urine Clarity Clear (Clear) Urine pH 6.0 (5.0 - 8.0) Ur Specific [place] 1.020 (1.002-1.030) Urine Protein Negative (Negative) mg/dl Urine Glucose (UA) Normal (Normal) mg/dl Urine Ketones 5 H (Negative) mg/dl Urine Occult Blood 10 H (Negative) /ul Urine Nitrite Negative (Negative) Urine Bilirubin Negative (Negative) mg/dL Urine Urobilinogen 1 H (Normal) mg/dl Ur Leukocyte Esterase 25 H (Negative) /ul U Random Total Protein 25.0 H (<11.9) mg/dL Urine Creatinine 109.00 (NO RANGE EST.) mg/dL Protein/Creatinin Ratio 229 H (0-200) mg/g CRE Vag Amniotic Fld Detect Negative (Negative) Group B Strep DNA (Negative) Specimen Comment 07/17/18 Range/Units 21:18 WBC (4.4-11.0) K/mm3 RBC (4.2-5.4) M/mm3 Hgb (12.0-15.0) g/dl Hct (37-47) % MCV (81-99) fL MCH (27.0-32.0) pg MCHC (32-36) g/gl RDW (11.6-14.6) % RDW Differential (35.1-43.9) fl Plt Count (150-450) K/mm3 MPV (6.2-12.0) fl PT (11.7-14.9) SECONDS INR APTT (24.1-36.2) Seconds Creatinine (0.55-1.02) mg/dL Estim Creat Clear Calc ml/min Est GFR (MDRD) Af Amer (>60) mL/min Est GFR (MDRD) Non-Af (>60) mL/min Uric Acid (2.6-6.0) mg/dL AST (15-37) U/L ALT (13-56) U/L Urine Color (Yellow) Urine Clarity (Clear) Urine pH (5.0 - 8.0) Ur Specific [place] (1.002-1.030) Urine Protein (Negative) mg/dl Urine Glucose (UA) (Normal) mg/dl Urine Ketones (Negative) mg/dl Urine Occult Blood (Negative) /ul Urine Nitrite (Negative) Urine Bilirubin (Negative) mg/dL Urine Urobilinogen (Normal) mg/dl Ur Leukocyte Esterase (Negative) /ul U Random Total Protein (<11.9) mg/dL Urine Creatinine (NO RANGE EST.) mg/dL Protein/Creatinin Ratio (0-200) mg/g CRE Vag Amniotic Fld Detect (Negative) Group B Strep DNA Negative (Negative) Specimen Comment Not Reportable Review of Systems Unable to obtain accurate/complete ROS d/t: See Nursing Note Physical Exam Vitals: See Nursing Note - initially 140/90s, over course of hospital stay blood pressure decreased 140/80s then 130/70s Otherwise VSS, Afebrile See Nursing Note for PE NST - FHR Rate Baby A Baseline: 130 Variability:: Moderate Accelerations:: 15 x 15 Decelerations:: None NST Reactive:: Yes, Appropriate for gestational age FHR Category:: Category I Uterine Activity:: Mild to moderately palpable contractions q 2-15 minutes lasting 60-80 seconds. Most palpable contractions not easily felt by the patient. Impression/Plan 23 y/o @ 35+ weeks, False Labor, Category I FHT P: 1) Patient's cervix unchanged during triage evaluation 2) Urine P/C Ratio in normal range and pre-eclampsia labs are not elevated 3) Labor precautions reviewed, [facility] teaching done 4) F/u in [facility] as scheduled for next visit Naida SYED
== END 2018-07-18 00:15 | disposition home or self-care (01) ==
LOC: WPOUT 21:03 → OBT 21:04
PROVIDERS: Advanced Practice Midwife; Referring Provider Obstetrics & Gynecology; Visit Provider Obstetrics & Gynecology
DX: O47.03 False labor before 37 completed weeks of gestation, third trimester (principal); Z3A.36 36 weeks gestation of pregnancy
CPT/HCPCS: 36415; 59025; 59050; 81002; 82565; 82570; 84112; 84156; 84450; 84460; 84550; 85027; 85610; 85730; 87081; 87653; 99218; G0378

== ENCOUNTER 2018-07-31 13:05 | Inpatient (IN) | payer MEDICAID, SELFPAY ==
[2018-07-30 23:49] VITALS: BMI 42.4
[2018-07-31] MEDS: Lactated Ringers 1,000 ML 999 ML IV (01:50)
[2018-07-31 02:07] LABS: Absolute Lymphocyte Count 1.81 X10^3/ul (0.83-4.51); Absolute Neutrophil Count 7.9 X10^3/uL (2.0-7.7); Basophil# 0.02 X10^3/uL; Basophil% 0.2 % (0-1); Eosinophil# 0.16 X10^3/uL; Eosinophils% 1.4 % (0-5); Hematocrit 33.9 % (37-47); Hemoglobin 10.6 g/dl (12.0-15.0); Lymphocyte # 1.81 X10^3/ul (4.0); Lymphocyte % 15.9 % (19-41); Mean Corp Hgb Conc 31.3 g/gl (32-36); Mean Corpuscular Hgb 26.2 pg (27.0-32.0); Mean Corpuscular Volume 83.7 fL (81-99); Mean Platelet Vol. 10.2 fl (6.2-12.0); Monocyte# 1.35 X10^3/uL; Monocyte% 11.9 % (0-10); Neutrophil # 7.94 X10^3/uL (2.7-7.7); Neutrophil % 69.9 % (47-70); Platelet Count 285 K/mm3 (150-450); RBC Distribution Width CV 14.4 % (11.6-14.6); RBC Distribution Width SD 42.7 fl (35.1-43.9); Red Blood Count 4.05 M/mm3 (4.2-5.4); White Blood Count 11.4 K/mm3 (4.4-11.0)
[2018-07-31 02:09] LABS: POSITIVE COUNT NO; POSITIVE DIFFERENTIAL NO; POSITIVE MORPHOLOGY NO
[2018-07-31 02:21] LABS: Fibrinogen 678 mg/dl (203-444); International Normalized Ratio 1.1; Partial Thromboplast Time 25.7 Seconds (24.1-36.2); Prothrombin Time (Protime)PT. 14.1 SECONDS (11.7-14.9)
--- NOTE | 2018-07-31 02:43 | NURSING ---
this nurse spoke to new order obtained. lab results given to .
[2018-07-31] MEDS: Nalbuphine 10 MG/ML Ampul IV ×2 (02:59→18:30)
[2018-07-31] MEDS: Acetaminophen 500 MG Tablet PO (04:44)
[2018-07-31] MEDS: Lactated Ringers 1,000 ML 100 ML IV ×3 (07:14→20:50)
[2018-07-31] MEDS: DiphenhydrAMINE 50 MG/ML Syringe IV (07:42)
[2018-07-31] MEDS: traMADol 50 MG Tablet PO (07:48)
[2018-07-31 12:37] LABS: Absolute Lymphocyte Count 1.11 X10^3/ul (0.83-4.51); Basophil# 0.02 X10^3/uL; Basophil% 0.2 % (0-1); Eosinophil# 0.12 X10^3/uL; Eosinophils% 1.3 % (0-5); Hematocrit 34.9 % (37-47); Hemoglobin 10.9 g/dl (12.0-15.0); Lymphocyte # 1.11 X10^3/ul (4.0); Lymphocyte % 11.9 % (19-41); Mean Corp Hgb Conc 31.2 g/gl (32-36); Mean Corpuscular Hgb 25.8 pg (27.0-32.0); Mean Corpuscular Volume 82.7 fL (81-99); Mean Platelet Vol. 10.3 fl (6.2-12.0); Monocyte% 10.7 % (0-10); Neutrophil # 6.99 X10^3/uL (2.7-7.7); Neutrophil % 75.1 % (47-70); POSITIVE COUNT NO; POSITIVE DIFFERENTIAL NO; POSITIVE MORPHOLOGY NO; Platelet Count 273 K/mm3 (150-450); RBC Distribution Width CV 14.4 % (11.6-14.6); RBC Distribution Width SD 42.6 fl (35.1-43.9); Red Blood Count 4.22 M/mm3 (4.2-5.4); White Blood Count 9.3 K/mm3 (4.4-11.0)
[2018-07-31 12:38] LABS: Fibrinogen 599 mg/dl (203-444); Prothrombin Time (Protime)PT. 13.4 SECONDS (11.7-14.9)
--- NOTE | 2018-07-31 16:22 | HP.PCM_ITS ---
History Date of Admission: 07/31/18 Final BELEM: 08/16/18 Final BELEM Source: US <20 weeks Gestational age: 37 Weeks and 5 Days History of this : This is a 23 year-old, 1 para 0 at 37-5/7 weeks gestation with EDC of 6 06/2018 by last menstrual period confirmed by 7-week ultrasound presented late in the evening of 07/30/2018 complaining of a fall in her garage. She states she was carrying an empty box and tripped and fell she is not sure if she hit her knees or her abdomen. She did lay on the garage door for several minutes because she was just so uncomfortable and sore from having fallen. She denies any vaginal bleeding. She does not have any acute injuries or musculoskeletal pain that she is complaining of other than some abdominal tenderness when she arrived. She has had good movement. She started having some cramping that worsened after the fall but no regular contractions before admission. After arrival, patient was found to be having some contractions that were palpating mild to moderate. Her cervix was examined several times and there was not a significant change. However, because the patient was so uncomfortable she was observed overnight. She received several doses of Nubain, then a dose of t ramadol and Vistaril to try to help her sleep, but she was still uncomfortable to get a significant amount of sleep even after these measures. She woke up because the contractions were painful enough that they occur up. 2 sets of abruption labs were ordered which were normal and did not reveal any indication of occult abruption. This morning she was found to be 3 cm and it was determined that she was likely an early prodromal labor. In addition, she has been followed in the office for elevated blood pressures and polyhydramnios. Between her blood pressures in the office and the blood pressures today, she does meet criteria for gestational hypertension. She denies any visual changes, severe persistent headache, or epigastric discomfort other than pressure from the baby. She did have a mild headache this morning but this was likely due to lack of sleep. This afternoon after observing the patient for approximately 14 hours, the decision was made to admit her for prodromal labor and gestational hypertension without evidence of preeclampsia. is complicated today by an LGA fetus based on estimated weight on ultrasound and polyhydramnios, maternal obesity with BMI of 42. Mild antepartum anemia. 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 Allergies morphine Allergy (Verified 07/17/18 21:42) Rash peanut Allergy (Verified 07/17/18 21:42) Anaphylaxis Home Medications: Home Medications Pnv No.95/Ferrous Fum/Folic AC [ Formula] 1 each PO DAILY 02/14/18 Smoking Status: Never smoker Alcohol: None Number of Fetus(es): 1 Heart Tracing: Normal baseline, moderate variability, at times minimal variability, spontaneous accelerations noted. No recurrent decelerations. Reactive and reassuring upon admission. TOCO Analysis: Contractions q. 2 to 5 minutes upon admission, now spaced out to approximately every 5-7 min History Past Pregnancies: Past Pregnancies Delivery Date Name GA/Weeks Outcome Route Weight Infant Gender Labor Length Anesthesia Delivery Location Provider FOB Expected Infant Delivery Method: Spontaneous Vaginal Review of Systems Constitutional: Reports: Fatigue. Denies: Anorexia, Chills, Fever Eyes: Denies: Blurred vision, Vision Change Cardiovascular: Reports: Edema. Denies: Chest Pain Respiratory: Reports: Shortness of Breath - appropriate level for , no tachypnea. Denies: Cough Gastrointestinal: Reports: Abdominal Pain. Denies: Diarrhea, Vomiting Genitourinary: Denies: Dysuria Skin: Denies: Rash Neurological: Denies: Blurred vision, Double vision, Change in Speech, Slurred speech, Confusion Hematologic/ Lymphatic: Reports: Anemia. Denies: Easy Bruising, Hx of blood clot Physical Exam General: Alert, Cooperative, No apparent distress, - - appears tired, is cooperative HEENT: Atraumatic, EOMI Cardiovascular: Regular rate Lungs: Normal air movement Abdomen: Soft, Non Tender, Non-Distended, Gravid, Tender - mildly, diffusely, - - No rebound or guarding Extremities:: Deep tendon reflexes - 2+, no clonus, Other - Edema 2+ Neurological: Cranial nerves II-XII grossly intact, Neuro grossly intact [employer]ENT: Normal external genitalia Estimated gestational size: Large for gestational age Presentation: Cephalic Cervix Dilation (cm): 3 - Medium consistency, midposition Station: -3 Effacement (%): 70 - AROM with return of large amount of clear fluid Assessment/Plan All Active Problems False labor before 37 completed weeks of gestation during in third trimester, antepartum (Acute) Vaginal discharge during in third trimester (Acute) This is a 23 year-old, 1 para 0 at 37-5/7 weeks gestation with likely prodromal labor and gestational hypertension without evidence of preeclampsia. Will admit for what is likely early labor. Augmentation with Pitocin as needed. It may have nitrous oxide, or epidural as needed for pain control. Estimated weight is less than 4500 g clinically, and this is clinically reasonable to expect vaginal delivery. Repeat preeclampsia labs in the morning if patient is undelivered and/or earlier if blood pressures or other symptoms change significantly. Patient's questions were answered and she agrees with plan.
[2018-07-31] MEDS: Oxytocin 30 units/NS 500 ml 30 UNITS/500 ML IV.SOLN IV (17:05)
[2018-07-31] MEDS: fentaNYL-bupivacaine (epidural) 100 ML BAG EPIDURAL (20:59)
[2018-07-31] MEDS: Amnioinfusion- 0.9% NS 1,000 ML IV.SOLN. INTRA-UTER (23:47)
[2018-08-01] MEDS: fentaNYL-bupivacaine (epidural) 100 ML BAG EPIDURAL (01:41)
[2018-08-01] MEDS: Acetaminophen 325 MG Tablet PO (02:19)
[2018-08-01] MEDS: Oxytocin 30 units/NS 500 ml 30 UNITS/500 ML IV.SOLN 334 UNITS IV (04:08)
--- NOTE | 2018-08-01 04:24 | PCM.OPRPT ---
Vaginal Delivery Maternal Presentation: Medically Indicated Induction - prodromal labor, gestational hypertension Method of Induction: - - pitocin augmentation Amniotic Membrane Rupture Type: Artificial Amniotic Fluid Description: Clear Final BELEM: 08/16/18 Gestational age: 37 Weeks and 6 Days Date of Procedure: 08/01/18 Pre-Operative Diagnosis: labor Post-Operative Diagnosis: same Surgery/ Procedure Performed: Spontaneous Vaginal Delivery Type of Anesthesia: Epidural Description of Procedure: A vigorous female was delivered LEXII over a first-degree perineal laceration. The remainder the infant was delivered with maternal pushing and gentle traction only in less than 15 seconds. The Pitocin infusion was initiated for active management of the third stage. The cord was clamped and cut after 1 minute. The was attended to by the waiting nursing staff. The placenta was delivered spontaneously and intact. Of note, the cord was very thin but normal length and normal insertion. The cervix and vagina were intact. The first-degree perineal laceration was repaired with 3-0 Vicryl suture in a running standard fashion. Sponge and needle counts were correct. A vaginal sweep was completed by me. Presentation: LEXII Placental Delivery Description: Spontaneous Placenta Disposition: [facility] Cord Vessel Description: 3 Vessels Cord Entanglement: None Drain: Guevara to straight drain Estimated Blood Loss: 300 Infant A gender: Female (1 minute): 8 (5 minute): 9 Episiotomy Description: None Laceration: 1st degree Medications given after delivery: IV Pitocin Complications: None
[2018-08-01] MEDS: Oxytocin 30 units/NS 500 ml 30 UNITS/500 ML IV.SOLN 167 UNITS IV (04:38)
[2018-08-01] MEDS: 0.9% Saline Lock 10 ML Syringe IV (05:56)
[2018-08-01] MEDS: Naproxen 250 MG Tablet 500 MG PO ×2 (06:07→19:24)
[2018-08-01 08:00] VITALS: BP 119/67; PULSE 106; RESP 15; TEMP 36.2
[2018-08-01 12:00] VITALS: BP 132/96; PULSE 104; RESP 13; TEMP 36.3
[2018-08-01 16:15] VITALS: BP 131/80; PULSE 99; RESP 14; TEMP 36.5
[2018-08-01 20:45] VITALS: BP 138/82; PULSE 98; RESP 16; TEMP 36.6
[2018-08-02 00:15] VITALS: BP 129/80; PULSE 80; RESP 16; TEMP 36.6
[2018-08-02 04:45] VITALS: BP 126/86; PULSE 82; RESP 16; TEMP 36.4
[2018-08-02 05:08] LABS: Hematocrit 30.2 % (37-47); Hemoglobin 9.5 g/dl (12.0-15.0); Mean Corp Hgb Conc 31.5 g/gl (32-36); Mean Corpuscular Hgb 26.1 pg (27.0-32.0); Mean Platelet Vol. 9.6 fl (6.2-12.0); Platelet Count 250 K/mm3 (150-450); RBC Distribution Width CV 14.8 % (11.6-14.6); RBC Distribution Width SD 44.8 fl (35.1-43.9); Red Blood Count 3.64 M/mm3 (4.2-5.4); Scan Indicated on CBC? Y/N NO; White Blood Count 14.5 K/mm3 (4.4-11.0)
--- NOTE | 2018-08-02 08:21 | PN.OBGYN_ITS ---
Subjective: Pain well controlled, average lochia. Patient denies headache visual changes or epigastric pain. - Physical Exam General: Alert, Cooperative, No apparent distress Abdomen: Soft, Non-Distended, Tender - Appropriately, fundus firm. Extremities: Edema - 2+, - - 3+ DTRs, no clonus Vital Signs Temp Pulse Resp BP 97.6 F L 82 16 126/86 H 08/02/18 04:45 08/02/18 04:45 08/02/18 04:45 08/02/18 04:45 Oxygen Delivery Method Room Air Weight: 112.037 kg Body Mass Index (BMI) 42.4 Intake and Output for Last 24 Hours 07/31/18 08/01/18 08/02/18 23:59 23:59 23:59 Intake Total 1802 / 1802 Output Total 900 / 900 4300 / 4300 Balance 902 / 902 -4300 / -4300 Laboratory Tests Past 24 Hrs 08/02/18 04:50 WBC 14.5 H RBC 3.64 L Hgb 9.5 L Hct 30.2 L MCV 83.0 MCH 26.1 L MCHC 31.5 L RDW 14.8 H RDW Differential 44.8 H Plt Count 250 MPV 9.6 Medical Necessity - Tobacco Use Smoking Status: Never smoker Assessment/Plan All Active Problems False labor before 37 completed weeks of gestation during in third trimester, antepartum (Acute) Vaginal discharge during in third trimester (Acute) day #1 status post vaginal delivery. Blood pressure stable. Likely home tomorrow. Continue to work on breast-feeding and monitor blood pr essures for today.
[2018-08-02 10:00] VITALS: BP 135/86; PULSE 74; RESP 20; TEMP 37
[2018-08-02 14:00] VITALS: BP 104/63; PULSE 79; RESP 18; TEMP 36.6
[2018-08-02] MEDS: Naproxen 250 MG Tablet 500 MG PO (14:59)
[2018-08-02] MEDS: Senna/Docusate Sodium 1 Tablet PO (15:00)
[2018-08-02 19:45] VITALS: BP 133/93; PULSE 73; RESP 18; TEMP 36.6; O2SAT 98
[2018-08-02] MEDS: Acetaminophen 500 MG Tablet 1000 MG PO (22:40)
[2018-08-03 02:40] VITALS: BP 146/86; PULSE 89; RESP 16; TEMP 36.2
[2018-08-03] MEDS: Naproxen 250 MG Tablet 500 MG PO (03:11)
[2018-08-03 03:55] VITALS: BP 127/86; PULSE 67; RESP 18
[2018-08-03 08:20] VITALS: BP 143/95; PULSE 77; RESP 16; TEMP 36.3
--- NOTE | 2018-08-03 08:38 | PCM.PN.OB ---
Subjective: Pain well controlled, average lochia. Mild headache but that is been persistent for the entire hospital stay. Is not severe or worsening in the pain medication she took in the middle the night helped. She denies visual changes or epigastric pain - Physical Exam General: Alert, Cooperative, No apparent distress Abdomen: Soft, Non-Distended Extremities: Edema - 2+ edema, no clonus, 2+ DTRs Vital Signs Temp Pulse Resp BP Pulse Ox 97.1 F L 67 18 127/86 H 98 08/03/18 02:40 08/03/18 03:55 08/03/18 03:55 08/03/18 03:55 08/02/18 19:45 Oxygen Delivery Method Room Air Weight: 112.037 kg Body Mass Index (BMI) 42.4 Intake and Output for Last 24 Hours 08/01/18 08/02/18 08/03/18 23:59 23:59 23:59 Output Total 4300 / 4300 Balance -4300 / -4300 Medical Necessity - Tobacco Use Smoking Status: Never smoker Assessment/Plan All Active Problems False labor before 37 completed weeks of gestation during in third trimester, antepartum (Acute) Vaginal discharge during in third trimester (Acute) day #2 status post vaginal delivery. Patient is doing well. Blood pressures have trended up over the last 24 hours. Will initiate labetalol 100 mg p.o. twice daily and have her follow-up in the office in 2 to 4 days for blood pressure check. Return to the office or hospital as needed for symptoms of severe preeclampsia. Patient is comfortable with plan. Infant is breast-feeding and doing well.
--- NOTE | 2018-08-03 08:47 | DCINST_ITS ---
Discharge Diet: No Restrictions Discharge Activity: Return to Normal Activity, May not drive while taking narcotic pain medications., May Shower May resume sexual activity in: 4-6 weeks Additional Activity Instructions:: Nothing in the vagina for 4-6 weeks. You may return to work/school in 6 weeks. Call your doctor if your incision/area has: Continuous Slow Oozing, Sudden Increased Bleeding, Increased Pain/ Swelling, Increased Redness, Foul Smelling Discharge Additional Instructions: If you experience any of the following, contact your healthcare provider. * Bleeding that soaks a pad every hour for 2 hours * Fever 100.4 or higher * Unrelieved incision or abdominal pain * Swelling, redness, discharge or bleeding from your incision or episiotomy site * Your incision begins to separate * Problems urinating (including inability to urinate or burning while urinating). * Visual changes * Severe headache * Flu-like symptoms * Pain or redness in one of both of your breasts * Pain, warmth, tenderness or swelling in your legs, especially the calf area * Frequent nausea and vomiting * Symptoms of depression or anxiety If you experience any of the following, call 911 or go to the nearest Emergency Room. * Chest pain * Problems breathing * Seizure activity * Partial or complete paralysis of a body part, slurred speech, weakness or drooping of the face, or a sudden inability to walk or hold your balance Allergies/Adverse Reactions: Allergies morphine Allergy (Verified 07/17/18 21:42) Rash peanut Allergy (Verified 07/17/18 21:42) Anaphylaxis Medications to take at Discharge Pnv No.95/Ferrous Fum/Folic AC [ Formula Tablet] 1 each PO DAILY 02/14/18 Ibuprofen [Motrin] 800 mg PO TID PRN PRN #60 tablet 08/03/18 Labetalol [Trandate (Beta Ismael)] 100 mg PO BID #60 tablet 08/03/18 The following prescriptions were given: Ibuprofen [Motrin] 800 mg PO TID PRN PRN #60 tablet PRN Reason: Pain Labetalol [Trandate (Beta Ismael)] 100 mg PO BID #60 tablet Please Follow Up With: Angie Escalera MD - [phone] When: Call to make an appointment with your doctor in 6 weeks. Schedule a BP check 2-4 days Primary Care Physician: Care Physician,No Primary [Primary Care Provider] - Test Results: Test results from this visit will be discussed in further detail at your follow- up appointment, if applicable.
--- NOTE | 2018-08-03 08:47 | PCM.DC.SUM ---
Discharge Date and Diagnosis Date of Admission: 07/31/18 Date of Discharge: 08/03/18 Hospital Course and Treatment Operations: - Procedures: None Summary of Care Provided: The patient is a 23 year old 1 para 0 was admitted at 37+ gestational weeks for contractions and gestational hypertension. Her labor was augmented with Pitocin and artificial rupture membranes. She had a spontaneous vaginal delivery without complications. By postoperative day #2 she was ambulating, urinating tolerating regular diet without difficulty. She was given routine instructions and she is to follow-up in 2 to 4 days or as needed. She was begun on labetalol 100 mg p.o. twice daily. [] - Physical Exam Vital Signs Temp Pulse Resp BP Pulse Ox 97.1 F L 67 18 127/86 H 98 08/03/18 02:40 08/03/18 03:55 08/03/18 03:55 08/03/18 03:55 08/02/18 19:45 Oxygen Delivery Method Room Air Weight: 112.037 kg Body Mass Index (BMI) 42.4 Intake and Output for Last 24 Hours 08/01/18 08/02/18 08/03/18 23:59 23:59 23:59 Output Total 4300 / 4300 Balance -4300 / -4300 Discharge Diet: No Restrictions Discharge Activity: Return to Normal Activity, May not drive while taking narcotic pain medications., May Shower May resume sexual activity in: 4-6 weeks Additional Activity Instructions:: Nothing in the vagina for 4-6 weeks. You may return to work/school in 6 weeks. Call your doctor if your incision/area has: Continuous Slow Oozing, Sudden Increased Bleeding, Increased Pain/ Swelling, Increased Redness, Foul Smelling Discharge Home Medications: Medications to take at Discharge Pnv No.95/Ferrous Fum/Folic AC [ Formula Tablet] 1 each PO DAILY 02/14/18 Ibuprofen [Motrin] 800 mg PO TID PRN PRN #60 tablet 08/03/18 Labetalol [Trandate (Beta Ismael)] 100 mg PO BID #60 tablet 08/03/18 Following Prescrptions Were Given to Patient: Ibuprofen [Motrin] 800 mg PO TID PRN PRN #60 tablet PRN Reason: Pain Labetalol [Trandate (Beta Ismael)] 100 mg PO BID #60 tablet Primary Care Physician: Care Physician,No Primary [Primary Care Provider] - Please Follow Up With: Angie Escalera MD - [phone] Medical Necessity - Tobacco Use Smoking Status: Never smoker Meaningful Use Info Meaningful Use Diagnoses (Choose all that apply): None applicable
[2018-08-03] MEDS: Labetalol 100 MG Tablet PO (10:35)
[2018-08-03 14:15] VITALS: BP 146/85; PULSE 101; RESP 16; TEMP 36.6
== END 2018-08-03 14:15 | disposition home or self-care (01) | DRG 560 ==
LOC: WPOUT 13:15
PROVIDERS: Admitting Provider Obstetrics & Gynecology; Referring Provider Obstetrics & Gynecology; Visit Provider Obstetrics & Gynecology
DX: O13.4 Gestational [pregnancy-induced] hypertension without significant proteinuria, complicating childbirth (principal); O40.3XX0 Polyhydramnios, third trimester, not applicable or unspecified; O70.0 First degree perineal laceration during delivery; O36.63X0 Maternal care for excessive fetal growth, third trimester, not applicable or unspecified; O99.02 Anemia complicating childbirth; D64.9 Anemia, unspecified; O99.214 Obesity complicating childbirth; E66.9 Obesity, unspecified; Z3A.37 37 weeks gestation of pregnancy; Z37.0 Single live birth
CPT/HCPCS: 59025; 59050; 85025; 85027; 85384; 85461; 85610; 85730; 86850; 86900; 90384; 99218; J7030; J7120; A4216; G0378; J2790

== ENCOUNTER → 2018-08-18 14:04 | Outpatient (CLI) | payer MEDICAID, SELFPAY ==
[2018-07-30 23:49] VITALS: BMI 42.4
[2018-08-18 14:31] LABS: Lipase 115 U/L (73-393)
== END ==
PROVIDERS: Visit Provider Family Medicine
DX: R10.11 Right upper quadrant pain (principal); R10.13 Epigastric pain
CPT/HCPCS: 83690

== ENCOUNTER 2019-05-24 14:33 | Emergency (ER) | payer MEDICAID, SELFPAY ==
[2018-07-30 23:49] VITALS: BMI 42.4
[2019-05-24 14:34] VITALS: BP 132/82; PULSE 95; RESP 18; TEMP 37.2; O2SAT 98; BMI 40.7
[2019-05-24 14:59] VITALS: PULSE 101; RESP 16; O2SAT 99
--- NOTE | 2019-05-24 15:06 | US_ITS ---
STUDY: SECOND AND THIRD TRIMESTER OBSTETRICAL ULTRASOUND REASON FOR EXAM: Female, 23 years old ABD CRAMPING X 2 DAYS. LMP: January 31, 2019. TECHNIQUE: Transabdominal. TECHNICAL QUALITY: Adequate. PRIOR ULTRASOUND: None. FINDINGS: There is a single intrauterine fetus. The fetus is in a cephalic presentation. There is demonstrated cardiac activity with a heart rate of 153 bpm. There is a normal amniotic fluid volume. The largest amniotic fluid pocket measures 5.8 cm. The placenta is fundal in location. There are Grade 0 placental changes. The cervix measures 3.5 cm in length. The bilateral adnexal regions are normal. There is debris in the urinary bladder. BIOMETRY: BPD: 3.7 cm: 17 weeks, 3 days HC: 13.6 cm: 17 weeks, 1 days AC: 11.9 cm: 17 weeks, 5 days FL: 2.2 cm: 16 weeks, 4 days age by current US: 17 weeks, 2 days. BELEM by current US: October 30, 2019. Estimated weight: 180 grams, +/- 26 grams, 94 %. Age by LMP: 16 weeks, 1 days. BELEM by LMP: November 07, 2019. US/OB Limited (No Biometrics) IMPRESSION: Single intrauterine gestation 17 weeks 2 days with estimated due date October 30, 2019. Electronically Signed: Lee Bain MD at 16:22 EDT , Service support ,
--- NOTE | 2019-05-24 15:06 | ED.DCSUM_ITS ---
History of Present Illness Chief Complaint: Nausea/Vomiting Informant: Patient Onset: Today Narrative: Patient is currently 17 weeks . She states last week for 3 days she had some mild cramping and bleeding. This seemed to resolve. She was seen by her OB 2 days ago. She states yesterday afternoon her cramping started again. She did take some Tylenol this afternoon and then vomited approximate 45 minutes later. She states the cramping has been more difficult to control today. She denies urinary symptoms. She denies diarrhea. She thought she may have had a fever this morning when she was at work but did not have a thermometer available to check it. Past Medical History - Allergies and Home Meds Allergies/Adverse Reactions: Allergies morphine Allergy (Verified 05/24/19 14:36) Rash peanut Allergy (Verified 05/24/19 14:36) Anaphylaxis Primary Care Physician: Care Physician,No Primary [Primary Care Provider] - Doctors: [facility] [employer] Prior records reviewed: Yes Past Medical History: None Lives: With Family Smoking Status: Never smoker Review of Systems General: Denies: Chills, Fever Eyes: Denies: Visual changes - bilaterally ENT: Denies: Bilateral ear pain Cardiovascular: Denies: Chest pain Respiratory: Denies: Dyspnea, Cough Gastrointestinal: Reports: Abdominal pain, Nausea, Vomiting. Denies: Diarrhea Genitourinary: Denies: Dysuria Musculoskeletal: Denies: Swelling, Extremity Pain Neurological: Denies: Headache Psych: Denies: Depression Allergy: Denies: Uticaria Physical Exam Vital Signs/Narrative: Vital Signs Temp Pulse Resp BP Pulse Ox 05/24/19 14:59 101 H 16 99 05/24/19 14:34 99.0 F 95 18 132/82 H 98 Inital Vital Signs reviewed: Yes General: Well nourished, Well developed Head: Normocephalic ENT: Moist mucous membranes Neck: Supple Cardiovascular: Regular rate, Regular rhythm Respiratory: No distress, CTA bilaterally Abdomen: Soft, Nontender, Hypoactive bowel sounds Extremities: Nontender Skin: Normal color, No rash Neurological: Alert, Oriented x3 Psychological: Normal affect Diagnostic/Tx/Re-eval Impressions Obstetrics Ultrasound 05/24/19 15:06 IMPRESSION: Single intrauterine gestation 17 weeks 2 days with estimated due date October 30, 2019. Electronically Signed: Lee Bain MD at 16:22 EDT , Service support , 05/24/19 15:06 US OB [OB Limited] [US] Stat Laboratory Results 05/24/19 05/24/19 05/24/19 15:19 15:19 17:12 WBC 10.7 RBC 4.24 Hgb 11.8 L Hct 37.1 MCV 87.5 MCH 27.8 MCHC 31.8 L RDW Std Deviation 44.4 H RDW Coeff of Dorcas 13.9 Plt Count 311 MPV 9.7 Immature Gran % (Auto) 0.400 Neut % (Auto) 66.0 Lymph % (Auto) 22.6 [place] % (Auto) 8.8 Eos % (Auto) 1.8 Baso % (Auto) 0.4 Absolute Neuts (auto) 7.1 Absolute Lymphs (auto) 2.42 Nucleated RBC % 0 Sodium 139 Potassium 3.9 Chloride 109 H Carbon Dioxide 23.0 Anion Gap 7 BUN 9 Creatinine 0.52 L Estim Creat Clear Calc 140.38 Est GFR (MDRD) Af Amer 187 Est GFR (MDRD) Non-Af 154 BUN/Creatinine Ratio 17.2 Glucose 85 Calcium 8.6 Urine Color Yellow Urine Clarity Sl. Cloudy Urine pH 6.5 Ur Specific [place] 1.015 Urine Protein Negative Urine Glucose (UA) Normal Urine Ketones Negative Urine Occult Blood Negative Urine Nitrite Negative Urine Bilirubin Negative Urine Urobilinogen Normal Ur Leukocyte Esterase Negative Urine RBC 0 SEEN Urine WBC 0 SEEN Ur Squamous Epith Cells 0-5 SEEN Urine Bacteria RARE Urine Mucus 0 SEEN - Medical Decision Making Patient was given a liter IV fluids and Zofran. On repeat evaluation she reports feeling much improved. She has had no further cramping in the ER. She is had no bleeding or spotting. She has Zofran at home that she will take if needed for nausea. She will increase fluids. ED Disposition - Plan for ED Patient: Disposition: Home or Assisted Living Diagnosis: Abdominal cramping, Vomiting Instructions: VOMITING (7y-Adult), Pelvic Pain in : Unclear (2-3 Trime ster) Referrals: Kimi Smith CNM [Certified Nurse Senior [employer] Sql Developer] -
[2019-05-24] MEDS: 0.9% Normal Saline 1,000 ML 1000 ML IV (15:18)
[2019-05-24] MEDS: Ondansetron 4 MG/2 ML Vial IV (15:18)
[2019-05-24 15:27] LABS: Absolute Lymphocyte Count 2.42 X10^3/uL (0.83-4.51); Absolute Neutrophil Count 7.1 X10^3/uL (2.0-7.7); Basophil# 0.04 X10^3/uL; Basophil% 0.4 % (0-1); Eosinophil# 0.19 X10^3/uL; Eosinophils% 1.8 % (0-5); Hematocrit 37.1 % (37-47); Hemoglobin 11.8 g/dL (12.0-15.0); Lymphocyte # 2.42 X10^3/ul (4.0); Lymphocyte % 22.6 % (19-41); Mean Corp Hgb Conc 31.8 g/dL (32-36); Mean Corpuscular Hgb 27.8 pg (27.0-32.0); Mean Corpuscular Volume 87.5 fL (81-99); Mean Platelet Vol. 9.7 fl (6.2-12.0); Monocyte# 0.94 X10^3/uL; Monocyte% 8.8 % (0-10); NRBC Flagged by Analyzer 0 % (0-5); Neutrophil # 7.09 X10^3/uL (2.7-7.7); Platelet Count 311 K/mm3 (150-450); RBC Distribution Width CV 13.9 % (11.6-14.6); RBC Distribution Width SD 44.4 fl (35.1-43.9); Red Blood Count 4.24 M/mm3 (4.2-5.4); White Blood Count 10.7 K/mm3 (4.4-11.0)
[2019-05-24 15:43] LABS: Anion Gap 7 (5-15); BUN 9 mg/dL (7-18); BUN/Creat Ratio 17.2 RATIO (10-20); Calcium,Total 8.6 mg/dL (8.5-10.1); Chloride 109 mmol/L (98-107); Creatinine, Serum 0.52 mg/dL (0.55-1.02); EST Glomerular Filtration Rate 154 mL/min (>60); Est Glom Filt Rate - Afr Amer 187 mL/min (>60); Estimated Creatinine Clearance 140.38 ml/min; Glucose 85 mg/dL (74-106); Potassium 3.9 mmol/L (3.5-5.1); Sodium Level 139 mmol/L (136-145)
[2019-05-24 17:15] LABS: Mucous, Urine 0 SEEN /hpf (<or=2+); Red Blood Cells-Urine 0 SEEN /hpf (0-5); White Blood Cells 0 SEEN /hpf (0-5)
[2019-05-24 17:22] LABS: Color, Urine Yellow (Yellow); Glucose, Dipstick Normal (Normal); Ketone-Dipstick Negative (Negative); Leukocyte Esterase-Dipstick Negative /ul (Negative); Nitrite-Dipstick Negative (Negative); Occult Blood-Urine Negative /ul (Negative); Protein-Dipstick Negative (Negative); Specific Gravity, Urine 1.015 (1.002-1.030); Urine Bilirubin Dipstick Negative (Negative); Urine Clarity Sl. Cloudy (Clear); Urine Urobilinogen Normal (Normal); Urine pH 6.5 (5.0 - 8.0)
[2019-05-24 17:36] LABS: Bacteria RARE /hpf (None Seen); Squamous Epithelial Cells - UA 0-5 SEEN /hpf (5-10)
[2019-05-24 18:11] VITALS: BP 142/97; PULSE 81; RESP 16; O2SAT 100
== END 2019-05-24 18:12 | disposition home or self-care (01) ==
PROVIDERS: Emergency Provider Emergency Medicine
DX: O21.9 Vomiting of pregnancy, unspecified (principal); R10.9 Unspecified abdominal pain; Z3A.17 17 weeks gestation of pregnancy
CPT/HCPCS: 76815; 80048; 81001; 85025; 96361; 96374; 99283; J7030; A4216; J2405

== ENCOUNTER 2019-09-04 23:10 | Outpatient (CLI) | payer MEDICAID, SELFPAY ==
[2019-09-04 23:25] VITALS: BP 141/95; PULSE 100; TEMP 36.4
[2019-09-04 23:31] VITALS: BMI 45.6
[2019-09-04 23:46] VITALS: BP 215/78; PULSE 102
[2019-09-04 23:50] VITALS: BP 122/79; PULSE 106
[2019-09-04 23:52] VITALS: BP 128/72
[2019-09-04 23:56] VITALS: BP 125/86; PULSE 105
--- NOTE | 2019-09-08 17:39 | OB.TRI.NOTE ---
History of Present Illness Date of Service: 09/04/19 Was patient seen by the physician?: No Reason For Visit: R/O Date of Service: 09/04/19 Final BELEM: 11/07/19 Final BELEM Source: US <20 weeks Gestational age: 30 w 6 Days Allergies morphine Allergy (Verified 05/24/19 14:36) Rash peanut Allergy (Verified 05/24/19 14:36) Anaphylaxis Physical Exam Vitals: Vital Signs Temp Pulse BP 97.5 F L 105 H 125/86 H 09/04/19 23:25 09/04/19 23:56 09/04/19 23:56 NST - FHR Rate Baby A Baseline: 135 Variability:: Moderate Accelerations:: 15 x 15 Decelerations:: None NST Reactive:: Yes FHR Category:: Category I Uterine Activity:: irritability Impression/Plan 24-year-old 2 para 1 at 30 weeks 6 days with threatened labor. No evidence of labor. heart tones are reassuring. Patient is to push fluids and rest. Follow-up in the office as scheduled or as needed. Patient is comfortable with plan.
== END 2019-09-05 00:10 | disposition home or self-care (01) ==
LOC: WPOUT 23:17 → WP 23:17
PROVIDERS: Visit Provider Obstetrics & Gynecology
DX: Z34.83 Encounter for supervision of other normal pregnancy, third trimester (principal); Z3A.30 30 weeks gestation of pregnancy
CPT/HCPCS: 59025; 59050; 99218; G0378

== ENCOUNTER 2019-09-20 23:07 | Outpatient (CLI) | payer MEDICAID, SELFPAY ==
[2019-09-20 23:36] VITALS: PULSE 109; O2SAT 98
[2019-09-20 23:40] VITALS: BMI 45.7
[2019-09-20 23:52] VITALS: BP 131/88; PULSE 106; TEMP 36.3; O2SAT 98
[2019-09-21 00:08] LABS: Absolute Lymphocyte Count 2.25 X10^3/uL (0.83-4.51); Absolute Neutrophil Count 7.9 X10^3/uL (2.0-7.7); Basophil# 0.03 X10^3/uL; Basophil% 0.3 % (0-1); Eosinophil# 0.13 X10^3/uL; Eosinophils% 1.1 % (0-5); Lymphocyte # 2.25 X10^3/ul (4.0); Lymphocyte % 19.5 % (19-41); Mean Corp Hgb Conc 30.6 g/dL (32-36); Mean Corpuscular Hgb 27.4 pg (27.0-32.0); Mean Corpuscular Volume 89.8 fL (81-99); Mean Platelet Vol. 9.7 fl (6.2-12.0); Monocyte# 1.12 X10^3/uL; Monocyte% 9.7 % (0-10); NRBC Flagged by Analyzer 0 % (0-5); Neutrophil # 7.93 X10^3/uL (2.7-7.7); Neutrophil % 68.7 % (47-70); Platelet Count 293 K/mm3 (150-450); RBC Distribution Width CV 13.5 % (11.6-14.6); RBC Distribution Width SD 44.2 fl (35.1-43.9); Red Blood Count 4.01 M/mm3 (4.2-5.4); White Blood Count 11.5 K/mm3 (4.4-11.0)
[2019-09-21 00:09] VITALS: BP 131/88; PULSE 101
[2019-09-21 00:16] LABS: Bedside Glucose 113 mg/dL (70-110)
[2019-09-21 00:23] LABS: Color, Urine Yellow (Yellow); Glucose, Dipstick 250 mg/dl (Normal); Ketone-Dipstick 5 mg/dl (Negative); Leukocyte Esterase-Dipstick Negative /ul (Negative); Nitrite-Dipstick Negative (Negative); Occult Blood-Urine Negative /ul (Negative); Protein-Dipstick Negative (Negative); Urine Bilirubin Dipstick Negative (Negative); Urine Clarity Clear (Clear); Urine Urobilinogen Normal (Normal)
[2019-09-21 00:24] VITALS: BP 141/91; PULSE 106
[2019-09-21 00:24] LABS: ALB/GLOB Ratio 0.6 RATIO (0.9-2.4); AST(SGOT) 11 U/L (15-37); Alanine Aminotransfer ALT/SGPT 15 U/L (13-56); Albumin, Serum 2.4 g/dL (3.2-5.0); Alkaline Phosphatase 117 U/L (45-117); Anion Gap 8 (5-15); BUN 7 mg/dL (7-18); Calcium,Total 8.1 mg/dL (8.5-10.1); Chloride 108 mmol/L (98-107); Creatinine, Serum 0.58 mg/dL (0.55-1.02); EST Glomerular Filtration Rate 136 mL/min (>60); Est Glom Filt Rate - Afr Amer 165 mL/min (>60); Estimated Creatinine Clearance 124.79 ml/min; Globulin 4.2 g/dL (2.2-4.2); Glucose 120 mg/dL (74-106); Protein, Total 6.6 g/dL (6.4-8.2); Sodium Level 139 mmol/L (136-145)
[2019-09-21 00:35] LABS: Lactic Acid 2.6 mmol/L (0.4-1.9)
[2019-09-21 01:29] VITALS: BP 137/84; PULSE 94
[2019-09-21 04:05] LABS: Reflex Lactate? Y
--- NOTE | 2019-09-27 08:51 | OB.TRI.PN_ITS ---
Progress Notes Date of Service: 09/20/19 Progress Note: at 33w2d Presented to labor and delivery with complaint of BS in the 300's, instructed to come to labor and delivery. Over the last week patient with complaint of increasing BS levels in 200's and today in 300's. It was 350 at highest and then came down to 313. Slight headache, no visual changes just not feeling well. Feels she is doing well with diet and no other concerns. No vaginal bleeding or leakage of fluid. O: FHR 145, moderate, accels, reactive. No contractions BS 113 by fingerstick CMP BS 120 K 3.0 CBC hgb 11 lactic acid 2.6 urine ketones 5 A: GDM P: 1) No signs of DKA and BS normal range 2) Will follow up in office in am 3) Reviewed by nursing when to call and BS management Laboratory Studies: Laboratory Tests 09/21/19 09/20/19 09/20/19 Range/Units 00:05 23:59 23:59 WBC (4.4-11.0) K/mm3 RBC (4.2-5.4) M/mm3 Hgb (12.0-15.0) g/dL Hct (37-47) % MCV (81-99) fL MCH (27.0-32.0) pg MCHC (32-36) g/dL RDW Std Deviation (35.1-43.9) fl RDW Coeff of Dorcas (11.6-14.6) % Plt Count (150-450) K/mm3 MPV (6.2-12.0) fl Immature Gran % (Auto) (0.0-0.9) % Neut % (Auto) (47-70) % Lymph % (Auto) (19-41) % [place] % (Auto) (0-10) % Eos % (Auto) (0-5) % Baso % (Auto) (0-1) % Absolute Neuts (auto) (2.0-7.7) X10^3/uL Absolute Lymphs (auto) (0.83-4.51) X10^3/uL Nucleated RBC % (0-5) % Sodium 139 (136-145) mmol/L Potassium 3.0 L (3.5-5.1) mmol/L Chloride 108 H (98-107) mmol/L Carbon Dioxide 23.0 (21.0-32.0) mmol/L Anion Gap 8 (5-15) BUN 7 (7-18) mg/dL Creatinine 0.58 (0.55-1.02) mg/dL Estim Creat Clear Calc 124.79 ml/min Est GFR (MDRD) Af Amer 165 (>60) mL/min Est GFR (MDRD) Non-Af 136 (>60) mL/min BUN/Creatinine Ratio 12.0 (10-20) RATIO Glucose 120 H (74-106) mg/dL Lactic Acid (0.4-1.9) mmol/L Calcium 8.1 L (8.5-10.1) mg/dL Total Bilirubin 0.10 L (0.20-1.00) mg/dL AST 11 L (15-37) U/L ALT 15 (13-56) U/L Alkaline Phosphatase 117 (45-117) U/L Total Protein 6.6 (6.4-8.2) g/dL Albumin 2.4 L (3.2-5.0) g/dL Globulin 4.2 (2.2-4.2) g/dL Albumin/Globulin Ratio 0.6 L (0.9-2.4) RATIO Urine Color Yellow (Yellow) Urine Clarity Clear (Clear) Urine pH 7.0 (5.0 - 8.0) Ur Specific [place] 1.010 (1.002-1.030) Urine Protein Negative (Negative) mg/dl Urine Glucose (UA) 250 H (Normal) mg/dl Urine Ketones 5 H (Negative) mg/dl Urine Occult Blood Negative (Negative) /ul Urine Nitrite Negative (Negative) Urine Bilirubin Negative (Negative) mg/dL Urine Urobilinogen Normal (Normal) mg/dl Ur Leukocyte Esterase Negative (Negative) /ul POC Glucose 113 H (70-110) mg/dL 09/20/19 09/20/19 Range/Units 23:59 23:59 WBC 11.5 H (4.4-11.0) K/mm3 RBC 4.01 L (4.2-5.4) M/mm3 Hgb 11.0 L (12.0-15.0) g/dL Hct 36.0 L (37-47) % MCV 89.8 (81-99) fL MCH 27.4 (27.0-32.0) pg MCHC 30.6 L (32-36) g/dL RDW Std Deviation 44.2 H (35.1-43.9) fl RDW Coeff of Dorcas 13.5 (11.6-14.6) % Plt Count 293 (150-450) K/mm3 MPV 9.7 (6.2-12.0) fl Immature Gran % (Auto) 0.700 (0.0-0.9) % Neut % (Auto) 68.7 (47-70) % Lymph % (Auto) 19.5 (19-41) % [place] % (Auto) 9.7 (0-10) % Eos % (Auto) 1.1 (0-5) % Baso % (Auto) 0.3 (0-1) % Absolute Neuts (auto) 7.9 H (2.0-7.7) X10^3/uL Absolute Lymphs (auto) 2.25 (0.83-4.51) X10^3/uL Nucleated RBC % 0 (0-5) % Sodium (136-145) mmol/L Potassium (3.5-5.1) mmol/L Chloride (98-107) mmol/L Carbon Dioxide (21.0-32.0) mmol/L Anion Gap (5-15) BUN (7-18) mg/dL Creatinine (0.55-1.02) mg/dL Estim Creat Clear Calc ml/min Est GFR (MDRD) Af Amer (>60) mL/min Est GFR (MDRD) Non-Af (>60) mL/min BUN/Creatinine Ratio (10-20) RATIO Glucose (74-106) mg/dL Lactic Acid 2.6 H* (0.4-1.9) mmol/L Calcium (8.5-10.1) mg/dL Total Bilirubin (0.20-1.00) mg/dL AST (15-37) U/L ALT (13-56) U/L Alkaline Phosphatase (45-117) U/L Total Protein (6.4-8.2) g/dL Albumin (3.2-5.0) g/dL Globulin (2.2-4.2) g/dL Albumin/Globulin Ratio (0.9-2.4) RATIO Urine Color (Yellow) Urine Clarity (Clear) Urine pH (5.0 - 8.0) Ur Specific [place] (1.002-1.030) Urine Protein (Negative) mg/dl Urine Glucose (UA) (Normal) mg/dl Urine Ketones (Negative) mg/dl Urine Occult Blood (Negative) /ul Urine Nitrite (Negative) Urine Bilirubin (Negative) mg/dL Urine Urobilinogen (Normal) mg/dl Ur Leukocyte Esterase (Negative) /ul POC Glucose (70-110) mg/dL
== END 2019-09-21 01:35 | disposition home or self-care (01) ==
LOC: WPOUT 23:13 → WP 23:13
PROVIDERS: Visit Provider Advanced Practice Midwife
DX: O24.419 Gestational diabetes mellitus in pregnancy, unspecified control (principal); R51 Headache; Z3A.33 33 weeks gestation of pregnancy
CPT/HCPCS: 36415; 59025; 59050; 80053; 81002; 82962; 83605; 85025; 99218; G0378

== ENCOUNTER 2019-09-25 11:50 | Outpatient (CLI) | payer MEDICAID, SELFPAY ==
[2019-09-25 13:05] VITALS: BP 134/83; PULSE 107
[2019-09-25 13:34] VITALS: BMI 44.1
[2019-09-25] MEDS: Lactated Ringers 1,000 ML 250 ML IV (14:25)
[2019-09-25 14:41] LABS: Bedside Glucose 113 mg/dL (70-110)
[2019-09-25 14:49] LABS: ALB/GLOB Ratio 0.5 RATIO (0.9-2.4); AST(SGOT) 13 U/L (15-37); Alanine Aminotransfer ALT/SGPT 16 U/L (13-56); Albumin, Serum 2.4 g/dL (3.2-5.0); Alkaline Phosphatase 133 U/L (45-117); Anion Gap 7 (5-15); BUN 6 mg/dL (7-18); BUN/Creat Ratio 10.4 RATIO (10-20); Calcium,Total 8.5 mg/dL (8.5-10.1); Chloride 107 mmol/L (98-107); Creatinine, Serum 0.58 mg/dL (0.55-1.02); EST Glomerular Filtration Rate 138 mL/min (>60); Est Glom Filt Rate - Afr Amer 166 mL/min (>60); Estimated Creatinine Clearance 130.27 ml/min; Globulin 4.4 g/dL (2.2-4.2); Glucose 106 mg/dL (74-106); Potassium 3.5 mmol/L (3.5-5.1); Protein, Total 6.8 g/dL (6.4-8.2); Sodium Level 139 mmol/L (136-145)
--- NOTE | 2019-09-25 18:13 | PCM.HP.OB ---
- Problem List (1) 33 weeks gestation of Status: Acute (2) Multiparous Status: Acute (3) Diet controlled gestational diabetes mellitus (GDM) Status: Acute History Date of Admission: 09/25/19 Final BELEM: 11/07/19 Final BELEM Source: US <20 weeks Gestational age: 33 Weeks and 6 Days History of this : This is a 24 year-old, at 33w6d admitted for N/V and uncontrolled GDM. She reports last week her blood sugars were in the 200-300s. She states about 5 days ago she bought a new glucometer and since then her blood sugars have been better controlled. She states her fasting blood sugars have been in the 110s. Her postprandials have been 160-180, and she has been checking her postprandials 1 hour after meals. She has nausea and vomiting when she lies down at night. Otherwise she is tolerating p.o. She has good appetite. No contractions, bleeding, leaking of fluid. Good movement. Allergies cefdinir Allergy (Verified 09/25/19 13:36) Vomiting morphine Allergy (Verified 09/25/19 13:36) Rash peanut Allergy (Verified 09/25/19 13:36) Anaphylaxis Home Medications: Home Medications Pnv No.95/Ferrous Fum/Folic AC [ Formula Tablet] 1 each PO DAILY 02/14/18 Acetaminophen [Tylenol Extra Strength] 500 mg PO Q4H PRN PRN 05/24/19 Aspirin [Aspirin, Baby] 81 mg PO DAILY@0800 09/04/19 Insulin Glargine [Lantus (BKC)] units SUBCUT QHS 09/25/19 Smoking Status: Never smoker Number of Fetus(es): 1 NST - FHR Rate Baby A Baseline: 130 Variability:: Moderate Accelerations:: 15 x 15 Decelerations:: Variable - 1 variable NST Reactive:: Yes History Past Pregnancies: Past Pregnancies Delivery Date Name GA/ Weeks Outcome Route Wt Sex Labor Length Anesthesia Delivery Location Provider FOB Review of Systems Gastrointestinal: Denies: Abdominal Pain, Nausea, Vomiting Genitourinary: Denies: Dysuria Gynecological: Denies: Vaginal bleeding, Vaginal discharge Physical Exam Vitals: Vital Signs Pulse BP 107 H 134/83 H 09/25/19 13:05 09/25/19 13:05 General: Alert, No apparent distress HEENT: Atraumatic Abdomen: Soft, Gravid Neurological: Neuro grossly intact Assessment/Plan All Active Problems False labor before 37 completed weeks of gestation during in third trimester, antepartum (Acute) Vaginal discharge during in third trimester (Acute) 33 weeks gestation of (Acute) Multiparous (Acute) Diet controlled gestational diabetes mellitus (GDM) (Acute) This is a 24 year-old, at 33w6d admitted for N/V and uncontrolled GDM. - N/V: Electrolytes on admission. 1L fluid bolus given. Patient is tolerating PO. Will start Pepcid for likely acid reflux and order Zofran PRN overnight - GDM: To check BG fasting and 2 hr PP. Continue 10 units of NPH at bedtime. Diabetic diet - NST q shift - SCD's for DVT proph
[2019-09-25 19:25] VITALS: BP 133/94; PULSE 104; PULSE 106; O2SAT 98
[2019-09-25 19:26] VITALS: TEMP 36.8; O2SAT 97
[2019-09-25 19:31] LABS: Bedside Glucose 136 mg/dL (70-110)
[2019-09-25 19:52] VITALS: BP 145/84; PULSE 101
[2019-09-25] MEDS: Famotidine 20 MG Tablet PO (22:20)
[2019-09-26 06:21] LABS: Bedside Glucose 88 mg/dL (70-110)
[2019-09-26 07:44] VITALS: O2SAT 92
[2019-09-26 07:45] VITALS: BP 133/76; PULSE 85; TEMP 36.4; O2SAT 97
--- NOTE | 2019-09-26 07:56 | PN.OBGYN_ITS ---
Patient Problems: Active and Suspected Problems 33 weeks gestation of (Acute) Multiparous (Acute) Diet controlled gestational diabetes mellitus (GDM) (Acute) Subjective: patient denies DIEGO or visual changes. Denies epigastric pain. No N/V since arrived here. Good FM. No VB/LOF. No regular ctxs. - Physical Exam Vitals/I&O's: Vital Signs Temp Pulse BP Pulse Ox 97.6 F L 85 133/76 H 97 09/26/19 07:45 09/26/19 07:45 09/26/19 07:45 09/26/19 07:45 Weight: 116.7 kg Body Mass Index (BMI) 44.1 Intake and Output for Last 24 Hours 09/24/19 09/25/19 09/26/19 23:59 23:59 23:59 Intake Total 1000 / 1000 Balance 1000 / 1000 General: Alert, Cooperative, No apparent distress Abdomen: Soft, Non Tender, Non-Distended, Gravid, Appropriate for Gestational Age Extremities: Edema - 2+ Neurological: Deep Tendon Reflexes 2+/4 and Symmetrical, - - no clonus Psych/Mental Status: Normal Affect, Appropriate Laboratory Results 09/25/19 14:12: POC Glucose 113 H 09/25/19 14:25: Sodium 139, Potassium 3.5, Chloride 107, Carbon Dioxide 25.0, Anion Gap 7, BUN 6 L, Creatinine 0.58, Estim Creat Clear Calc 130.27, Est GFR (MDRD) Af Amer 166, Est GFR (MDRD) Non-Af 138, BUN/Creatinine Ratio 10.4, Glucose 106, Calcium 8.5, Total Bilirubin 0.10 L, AST 13 L, ALT 16, Alkaline Phosphatase 133 H, Total Protein 6.8, Albumin 2.4 L, Globulin 4.4 H, Albumin/Globulin Ratio 0.5 L 09/25/19 19:23: POC Glucose 136 H 09/26/19 06:18: POC Glucose 88 Current Medications Dextrose (D50w Syringe) 0 gm IV X1 PRN; Protocol PRN Reason: Hypoglycemia Famotidine (Pepcid) 20 mg PO BID [facility] Last Admin: 09/25/19 22:20 Dose: 20 mg Documented by: Glucagon () 1 mg IM .X1 PRN PRN Reason: Hypoglycemia Insulin Glargine (Lantus (Bkc)) 10 units SC QHS [facility] Last Admin: 09/25/19 22:21 Dose: 10 units Documented by: Ondansetron HCl (Zofran Odt) 4 mg PO Q8H PRN PRN PRN Reason: NAUSEA/VOMITING Medical Necessity - Tobacco Use Smoking Status: Never smoker Assessment/Plan All Active Problems False labor before 37 completed weeks of gestation during in third trimester, antepartum (Acute) Vaginal discharge during in third trimester (Acute) 33 weeks gestation of (Acute) Multiparous (Acute) Diet controlled gestational diabetes mellitus (GDM) (Acute) HD#2 GDM, patient reported significant jump in blood sugars over the past week. Been reported nausea vomiting yesterday. Since arrival to hospital she is not had any further emesis. Blood sugars have been well controlled. We will see what postprandial is after breakfast. monitoring this morning. Likely discharge home later, but will need to continue to monitor blood sugars and follow-up in the office. Patient hypertension without evidence of preeclampsia at this time. Will follow blood pressure closely. Patient is to call or return for any symptoms of preeclampsia.
[2019-09-26] MEDS: Famotidine 20 MG Tablet PO (10:07)
[2019-09-26 10:10] LABS: Bedside Glucose 117 mg/dL (70-110)
== END 2019-09-26 11:30 | disposition home or self-care (01) ==
LOC: WPOUT 12:00 → WP 12:01
PROVIDERS: Referring Provider Obstetrics & Gynecology; Visit Provider Obstetrics & Gynecology
DX: O47.03 False labor before 37 completed weeks of gestation, third trimester (principal); O24.410 Gestational diabetes mellitus in pregnancy, diet controlled; O21.2 Late vomiting of pregnancy; O16.3 Unspecified maternal hypertension, third trimester; Z79.82 Long term (current) use of aspirin; Z3A.33 33 weeks gestation of pregnancy
CPT/HCPCS: 96360; 96361; 36415; 59025; 59050; 80053; 82962; 99218; J7120; G0378

== ENCOUNTER 2019-10-13 15:40 | Outpatient (CLI) | payer MEDICAID, SELFPAY ==
[2019-10-13] VITALS (13 sets, daily range): BP systolic 120–176; BP diastolic 68–98; PULSE 64–85; O2SAT 98–99; BMI 46.2
[2019-10-13 18:19] LABS: ALB/GLOB Ratio 0.5 RATIO (0.9-2.4); AST(SGOT) 14 U/L (15-37); Alanine Aminotransfer ALT/SGPT 13 U/L (13-56); Albumin, Serum 2.4 g/dL (3.2-5.0); Alkaline Phosphatase 153 U/L (45-117); Anion Gap 5 (5-15); BUN 10 mg/dL (7-18); Calcium,Total 9.3 mg/dL (8.5-10.1); Chloride 108 mmol/L (98-107); Creatinine, Serum 0.56 mg/dL (0.55-1.02); EST Glomerular Filtration Rate 144 mL/min (>60); Est Glom Filt Rate - Afr Amer 174 mL/min (>60); Estimated Creatinine Clearance 129.25 ml/min; Globulin 4.4 g/dL (2.2-4.2); Glucose 124 mg/dL (74-106); Potassium 3.8 mmol/L (3.5-5.1); Protein, Total 6.8 g/dL (6.4-8.2); Sodium Level 139 mmol/L (136-145)
--- NOTE | 2019-11-03 18:14 | OB.TRI.PN ---
Progress Notes Date of Service: 10/15/19 Progress Note: Patient called with elevated blood glucose at home in 300's, not feeling well. with nausea and feeling dizzy. No vaginal bleeding, fluid leakage or contractions. Advised to go to labor and delivery. Upon arrival no complaints. O: Reactive NST VS stable Glucose 124 A: Nausea Dizziness Abnormal Glucose P: 1) Glucose normal range upon arrival and feeling ok. No further complaints. 2) Ok to D/C home Laboratory Studies: Laboratory Tests 10/13/19 Range/Units 17:05 Sodium 139 (136-145) mmol/L Potassium 3.8 (3.5-5.1) mmol/L Chloride 108 H (98-107) mmol/L Carbon Dioxide 26.0 (21.0-32.0) mmol/L Anion Gap 5 (5-15) BUN 10 (7-18) mg/dL Creatinine 0.56 (0.55-1.02) mg/dL Estim Creat Clear Calc 129.25 ml/min Est GFR (MDRD) Af Amer 174 (>60) mL/min Est GFR (MDRD) Non-Af 144 (>60) mL/min BUN/Creatinine Ratio 18.0 (10-20) RATIO Glucose 124 H (74-106) mg/dL Calcium 9.3 (8.5-10.1) mg/dL Total Bilirubin 0.10 L (0.20-1.00) mg/dL AST 14 L (15-37) U/L ALT 13 (13-56) U/L Alkaline Phosphatase 153 H (45-117) U/L Total Protein 6.8 (6.4-8.2) g/dL Albumin 2.4 L (3.2-5.0) g/dL Globulin 4.4 H (2.2-4.2) g/dL Albumin/Globulin Ratio 0.5 L (0.9-2.4) RATIO
== END 2019-10-13 18:45 | disposition home or self-care (01) ==
LOC: WPOUT 15:50 → WP 15:51
PROVIDERS: Referring Provider Advanced Practice Midwife; Visit Provider Advanced Practice Midwife
DX: O99.810 Abnormal glucose complicating pregnancy (principal); Z3A.00 Weeks of gestation of pregnancy not specified
CPT/HCPCS: 36415; 59025; 59050; 80053; 99218; G0378

== ENCOUNTER 2019-10-16 18:53 | Inpatient (IN) | payer MEDICAID, SELFPAY ==
[2019-10-13 16:02] VITALS: BMI 46.2
--- NOTE | 2019-10-16 16:53 | PCM.HP.OB ---
History Date of Admission: 09/25/19 Final BELEM: 11/07/19 Final BELME Source: US <20 weeks Gestational age: 36 Weeks and 6 Days History of this : This is a 24 year-old, @ 36.6 wks- seen in office today for discomfort. BPs trending up- BPs 130-140/80s-90s with GDMA2, on NPH insulin at night with moderate control. pt denies DIEGO, visual changes or RUQ pain. reviewed IOL for Gestational HTN. Allergies cefdinir Allergy (Verified 09/25/19 13:36) Vomiting morphine Allergy (Verified 09/25/19 13:36) Rash peanut Allergy (Verified 09/25/19 13:36) Anaphylaxis Home Medications: Home Medications Pnv No.95/Ferrous Fum/Folic AC [ Formula Tablet] 1 each PO DAILY 02/14/18 Acetaminophen [Tylenol Extra Strength] 500 mg PO Q4H PRN PRN 05/24/19 Aspirin [Aspirin, Baby] 81 mg PO DAILY@0800 09/04/19 Insulin Glargine [Lantus (BKC)] units SUBCUT QHS 09/25/19 Smoking Status: Never smoker Alcohol: None Number of Fetus(es): 1 History Past Pregnancies: Past Pregnancies Delivery Date Name GA/ Weeks Outcome Route Wt Sex Labor Length Anesthesia Delivery Location Provider FOB Expected Delivery Method: Spontaneous Vaginal Review of Systems Constitutional: Denies: Anorexia Eyes: Denies: Blurred vision HEENT: Denies: Head Aches Cardiovascular: Denies: Chest Pain Respiratory: Denies: Cough Gastrointestinal: Denies: Abdominal Pain Physical Exam General: Alert, Oriented x3 Abdomen: Soft, Non Tender, Gravid Neurological: Cranial nerves II-XII grossly intact TIRE ADJUSTER: Normal external genitalia Estimated gestational size: Appropriate for gestational size Presentation: Cephalic Cervix Dilation (cm): 0 Station: -3 Effacement (%): 50 Assessment/Plan All Active Problems False labor before 37 completed weeks of gestation during in third trimester, antepartum (Acute) Vaginal discharge during in third trimester (Acute) 33 weeks gestation of (Acute) Multiparous (Acute) Diet controlled gestational diabetes mellitus (GDM) (Acute) This is a 24 year-old, @ 36.6 weeks, Here for IOL due to Gest HTN and GDMA2 1) admit to L&D 2) cervical ripening with Cytotec- then possible Pitocin/Guevara or AROM 3) Epidural if requested 4) monitor fhr/toco 5) PRE E labs- previous labs were WNL but will recheck today 6) risks/benefits of IOL were reviewed with patient in office
[2019-10-16 19:27] VITALS: BMI 46.5
[2019-10-16 19:31] VITALS: TEMP 36.7; O2SAT 99
[2019-10-16 19:32] VITALS: PULSE 101; O2SAT 98
[2019-10-16] MEDS: Lactated Ringers 1,000 ML 50 ML IV (19:55)
[2019-10-16 20:10] VITALS: BP 125/82; PULSE 95
[2019-10-16 20:10] LABS: Bedside Glucose 91 mg/dL (70-110)
[2019-10-16 20:23] LABS: Absolute Lymphocyte Count 2.14 X10^3/uL (0.83-4.51); Absolute Neutrophil Count 7.3 X10^3/uL (2.0-7.7); Basophil# 0.02 X10^3/uL; Basophil% 0.2 % (0-1); Eosinophils% 0.9 % (0-5); Hematocrit 35.8 % (37-47); Hemoglobin 11.5 g/dL (12.0-15.0); Lymphocyte # 2.14 X10^3/ul (4.0); Mean Corp Hgb Conc 32.1 g/dL (32-36); Mean Corpuscular Volume 87.1 fL (81-99); Mean Platelet Vol. 9.9 fl (6.2-12.0); Monocyte% 10.3 % (0-10); NRBC Flagged by Analyzer 0 % (0-5); Neutrophil # 7.29 X10^3/uL (2.7-7.7); Neutrophil % 67.9 % (47-70); Platelet Count 297 K/mm3 (150-450); RBC Distribution Width CV 13.8 % (11.6-14.6); RBC Distribution Width SD 43.8 fl (35.1-43.9); Red Blood Count 4.11 M/mm3 (4.2-5.4); White Blood Count 10.7 K/mm3 (4.4-11.0)
[2019-10-16 20:32] LABS: International Normalized Ratio 1.1; Partial Thromboplast Time 25.6 Seconds (24.1-36.2); Prothrombin Time (Protime)PT. 13.4 SECONDS (11.7-14.9)
[2019-10-16 20:37] LABS: AST(SGOT) 16 U/L (15-37); Alanine Aminotransfer ALT/SGPT 16 U/L (13-56); Creatinine, Serum 0.52 mg/dL (0.55-1.02); EST Glomerular Filtration Rate 155 mL/min (>60); Est Glom Filt Rate - Afr Amer 188 mL/min (>60); Estimated Creatinine Clearance 139.19 ml/min; Uric Acid 3.5 mg/dL (2.6-6.0)
[2019-10-16] MEDS: miSOPROStol 25 MCG TABLET PO (21:04)
[2019-10-16 21:11] VITALS: BP 134/85; PULSE 89
[2019-10-16 21:13] VITALS: TEMP 36.8
[2019-10-16 22:19] LABS: Protein, Urine (Random) 34.2 mg/dL (<11.9); Protein:Creat Ratio 287 mg/g CRE (0-200)
[2019-10-17] VITALS (72 sets, daily range): BP systolic 102–164; BP diastolic 55–106; PULSE 71–163; RESP 18; TEMP 35.8–36.9; O2SAT 77–100
[2019-10-17 00:30] LABS: Bedside Glucose 77 mg/dL (70-110)
[2019-10-17] MEDS: miSOPROStol 25 MCG TABLET PO (01:18)
[2019-10-17 04:16] LABS: Bedside Glucose 91 mg/dL (70-110)
--- NOTE | 2019-10-17 04:59 | PCM.PN.BLA ---
Progress Note pt seen at bedside, doing well. VE performed- Unable to palpate presenting part- 1/thick/high- not able to place intracervical curran at this time. Will start pitocin. Vertex confirmed on bedside ultrasound. STROKE Vital Signs/Narrative: Vital Signs Temp Pulse BP Pulse Ox 10/17/19 04:10 97.7 F L 10/17/19 04:08 85 122/77 H 10/17/19 02:36 81 117/77 10/17/19 02:31 86 98
[2019-10-17] MEDS: Oxytocin 30 units/NS 500 ml 30 UNITS/500 ML IV.SOLN IV (05:49)
[2019-10-17 07:30] LABS: Bedside Glucose 80 mg/dL (70-110)
[2019-10-17 11:55] LABS: Bedside Glucose 82 mg/dL (70-110)
[2019-10-17] MEDS: Lactated Ringers 1,000 ML 50 ML IV (13:18)
--- NOTE | 2019-10-17 13:51 | PCM.PN.BLA ---
Progress Note S: Patient feeling increased ctxs O:cvx - 1.5/60/-3 AROM clear fluid FSE & IUPC placed fhts - 125 with mod variability, accels tocos - not tracing well A&P: continue pit induction for gestational hypertension STROKE Vital Signs/Narrative: Vital Signs Temp Pulse BP Pulse Ox 10/17/19 12:46 80 127/78 H 10/17/19 12:45 98.1 F 10/17/19 10:55 85 117/72 95 10/17/19 10:54 97.2 F L 10/17/19 09:53 98.4 F 10/17/19 09:52 81 114/61
[2019-10-17] MEDS: Lactated Ringers 500 ML 999 ML IV (14:44)
[2019-10-17] MEDS: fentaNYL-bupivacaine (epidural) 100 ML BAG EPIDURAL (15:14)
[2019-10-17 16:25] LABS: Bedside Glucose 79 mg/dL (70-110)
[2019-10-17 19:00] LABS: Bedside Glucose 82 mg/dL (70-110)
[2019-10-17] MEDS: Oxytocin 30 units/NS 500 ml 30 UNITS/500 ML IV.SOLN 334 UNITS IV (19:49)
--- NOTE | 2019-10-17 20:06 | PCM.OPRPT ---
Vaginal Delivery Maternal Presentation: Medically Indicated Induction Method of Induction: Pitocin, Amniotomy, Cytotec Medical Reason for Induction: Gestational Hypertension Amniotic Membrane Rupture Type: Artificial Amniotic Fluid Description: Clear Final BELEM: 11/07/19 Gestational age: 37 Weeks and 0 Days Date of Procedure: 10/17/19 Pre-Operative Diagnosis: (1) Gestational hypertension (2) A2 Gestational diabetes Post-Operative Diagnosis: Same Surgery/ Procedure Performed: Spontaneous Vaginal Delivery Type of Anesthesia: Epidural Description of Procedure: Patient in stirrups when C/C/+2. She pushed to deliver head. Shoulders & body easily followed. placed on maternal abdomen where 3VC clamped & cut in delayed fashion. Placenta delivered with gentle traction. Good uterine tone obtained. Presentation: LEXII Placental Delivery Description: Spontaneous Placenta Disposition: [facility] Cord Vessel Description: 3 Vessels Cord Entanglement: None Estimated Blood Loss: 250ml A gender: Male - Brent (1 minute): 9 (5 minute): 9 Episiotomy Description: None Laceration: None Medications given after delivery: IV Pitocin Complications: None
[2019-10-18] VITALS (13 sets, daily range): BP systolic 119–137; BP diastolic 70–82; PULSE 78–97; RESP 14–18; TEMP 36.3–36.9
[2019-10-18 05:11] LABS: Bedside Glucose 94 mg/dL (70-110)
--- NOTE | 2019-10-18 08:08 | PCM.PN.OB ---
Subjective: Patient is doing well. She denies headache, vision changes, right upper quadrant pain. She is ambulating voiding without difficulty. She is tolerating regular diet without nausea or vomiting. She denies lightheadedness, chest pain, shortness of breath, leg pain. Lochia normal. - Physical Exam Vitals/I&O's: Vital Signs Temp Pulse Resp BP Pulse Ox 97.9 F 78 18 119/70 97 10/18/19 05:01 10/18/19 05:00 10/18/19 05:00 10/18/19 05:00 10/17/19 23:44 Oxygen Delivery Method Room Air Weight: 263 lb 0.183 oz Body Mass Index (BMI) 46.5 Intake and Output for Last 24 Hours 10/16/19 10/17/19 10/18/19 23:59 23:59 23:59 Intake Total 3541.76 / 3541.76 Output Total 2024 / 2024 300 / 300 Balance 1516.76 / 1516.76 -300 / -300 General: Alert, No apparent distress HEENT: Atraumatic Abdomen: Soft, Non Tender, - - FF@U Extremities: No Calf Tenderness, Edema Skin: No rashes Neurological: Neuro grossly intact Psych/Mental Status: Normal Affect, Appropriate Laboratory Results 10/17/19 11:45: POC Glucose 82 10/17/19 16:22: POC Glucose 79 10/17/19 18:54: POC Glucose 82 10/17/19 22:45: Screen NEGATIVE, Baby's Blood Type A POSITIVE, Baby's BRODY NEGATIVE 10/18/19 05:00: POC Glucose 94 Current Medications Acetaminophen (Tylenol) 1,000 mg PO Q8H PRN PRN PRN Reason: Pain Score 1-3/10 Bisacodyl (Dulcolax) 10 mg RECTAL UD PRN PRN Reason: If no BM Dibucaine (Dibucaine) 1 applic TOPICAL TID PRN PRN; Protocol PRN Reason: Discomfort Hydrocortisone (Hytone) 1 applic TOPICAL TID PRN PRN; Protocol PRN Reason: Discomfort Ibuprofen (Motrin) 600 mg PO Q6H PRN PRN PRN Reason: Pain Score 1-3/10 Methylergonovine Maleate (Methergine) 0.2 mg IM X1 PRN PRN Reason: Excess bleeding/uterine atony Ondansetron HCl (Zofran) 4 mg IV Q4H PRN PRN PRN Reason: Nausea Oxycodone HCl (Oxyir) 5 - 10 mg PO Q4H PRN PRN PRN Reason: Pain Score 4-10/10 Senna/Docusate Sodium (Senokot-S, Shari-Colace) 1 - 2 tablet PO DAILY PRN PRN PRN Reason: Constipation Simethicone (Mylicon) 80 mg PO PCHS PRN PRN Reason: Indigestion/Stomach pain Sodium Chloride () 5 - 15 ml IV UD PRN PRN Reason: SALINE FLUSH Medical Necessity - Tobacco Use Smoking Status: Never smoker Assessment/Plan All Active Problems False labor before 37 completed weeks of gestation during in third trimester, antepartum (Acute) Vaginal discharge during in third trimester (Acute) 33 weeks gestation of (Acute) Multiparous (Acute) Diet controlled gestational diabetes mellitus (GDM) (Acute) Patient is day 1 from a vaginal delivery. She is doing well. No preeclampsia symptoms and blood pressures are normal. Fasting blood sugar this morning. Dispo- care and anticipate discharge home tomorrow.
[2019-10-18] MEDS: Senna/Docusate Sodium 1 Tablet PO (09:09)
[2019-10-18] MEDS: Ibuprofen 600 MG Tablet PO (09:09)
[2019-10-19] VITALS (15 sets, daily range): BP systolic 91–161; BP diastolic 50–90; PULSE 79–88; RESP 14–18; TEMP 36.2–36.5
[2019-10-19] MEDS: Ibuprofen 600 MG Tablet PO (03:08)
--- NOTE | 2019-10-19 08:06 | PCM.PN.OB ---
Subjective: Patient doing well. She denies headache, vision changes, upper abdominal pain. She is ambulating voiding without difficulty. She is tolerating regular diet without nausea or vomiting. She denies lightheadedness, dizziness, chest pain, shortness of breath, leg pain. Lochia normal. She feels ready to go home. - Physical Exam Vitals/I&O's: Vital Signs Temp Pulse Resp BP Pulse Ox 97.3 F L 80 14 135/87 H 97 10/19/19 07:45 10/19/19 07:45 10/19/19 02:56 10/19/19 07:45 10/17/19 23:44 Oxygen Delivery Method Room Air Weight: 263 lb 0.183 oz Body Mass Index (BMI) 46.5 Intake and Output for Last 24 Hours 10/17/19 10/18/19 10/19/19 23:59 23:59 23:59 Intake Total 3541.76 / 3541.76 Output Total 2024 / 2024 300 / 300 Balance 1516.76 / 1516.76 -300 / -300 General: Alert, No apparent distress HEENT: Atraumatic Abdomen: Soft, Non Tender Extremities: No edema, No Calf Tenderness Skin: No rashes Neurological: Neuro grossly intact Psych/Mental Status: Normal Affect, Appropriate Current Medications Acetaminophen (Tylenol) 1,000 mg PO Q8H PRN PRN PRN Reason: Pain Score 1-3/10 Bisacodyl (Dulcolax) 10 mg RECTAL UD PRN PRN Reason: If no BM Dibucaine (Dibucaine) 1 applic TOPICAL TID PRN PRN; Protocol PRN Reason: Discomfort Hydrocortisone (Hytone) 1 applic TOPICAL TID PRN PRN; Protocol PRN Reason: Discomfort Ibuprofen (Motrin) 600 mg PO Q6H PRN PRN PRN Reason: Pain Score 1-3/10 Last Admin: 10/19/19 03:08 Dose: 600 mg Documented by: Labetalol HCl (Trandate) 200 mg PO BID CAMI Methylergonovine Maleate (Methergine) 0.2 mg IM X1 PRN PRN Reason: Excess bleeding/uterine atony Ondansetron HCl (Zofran) 4 mg IV Q4H PRN PRN PRN Reason: Nausea Oxycodone HCl (Oxyir) 5 - 10 mg PO Q4H PRN PRN PRN Reason: Pain Score 4-10/10 Senna/Docusate Sodium (Senokot-S, Shari-Colace) 1 - 2 tablet PO DAILY PRN PRN PRN Reason: Constipation Last Admin: 10/18/19 09:09 Dose: 2 tablet Documented by: Simethicone (Mylicon) 80 mg PO PCHS PRN PRN Reason: Indigestion/Stomach pain Sodium Chloride () 5 - 15 ml IV UD PRN PRN Reason: SALINE FLUSH Medical Necessity - Tobacco Use Smoking Status: Never smoker Assessment/Plan All Active Problems False labor before 37 completed weeks of gestation during in third trimester, antepartum (Acute) Vaginal discharge during in third trimester (Acute) 33 weeks gestation of (Acute) Multiparous (Acute) Diet controlled gestational diabetes mellitus (GDM) (Acute) Patient is day 2 from a spontaneous vaginal delivery. Blood pressures have been elevated so we will start labetalol 200 mg p.o. twice daily. Patient has no preeclampsia symptoms this morning. We will continue to monitor blood pressures today and if patient does well on labetalol okay for discharge home. Discussed follow-up in the office early next week for blood pressure check. She is otherwise meeting all milestones to go home and desires to go home today.
[2019-10-19] MEDS: Labetalol 200 MG Tablet PO (08:18)
--- NOTE | 2019-10-19 08:24 | DCINST_ITS ---
Discharge Diet: No Restrictions Discharge Activity: May Shower, May Take a Tub Bath May resume sexual activity in: 6 weeks Weight Bearing Status: Weight bearing as tolerated Lifting Restrictions: No lifting anything heavier than baby for 4 weeks Call your doctor if you observe: Fever of 101 or Higher, Inability to urinate, Inability to have a bowel movement, Using more than one pad per hour, Shortness of breath, Dizziness, Fainting spells, Chest pain, Increased palpitations (irregular heartbeat), Calf discomfort, Uncontrolled pain Additional Instructions: If you experience any of the following, contact your healthcare provider. * Bleeding that soaks a pad every hour for 2 hours * Fever 100.4 or higher * Unrelieved incision or abdominal pain * Swelling, redness, discharge or bleeding from your incision or episiotomy site * Your incision begins to separate * Problems urinating (including inability to urinate or burning while urinating). * Visual changes * Severe headache * Flu-like symptoms * Pain or redness in one of both of your breasts * Pain, warmth, tenderness or swelling in your legs, especially the calf area * Frequent nausea and vomiting * Symptoms of depression or anxiety If you experience any of the following, call 911 or go to the nearest Emergency Room. * Chest pain * Problems breathing * Seizure activity * Partial or complete paralysis of a body part, slurred speech, weakness or drooping of the face, or a sudden inability to walk or hold your balance Allergies/Adverse Reactions: Allergies cefdinir Allergy (Verified 09/25/19 13:36) Vomiting morphine Allergy (Verified 09/25/19 13:36) Rash peanut Allergy (Verified 09/25/19 13:36) Anaphylaxis Medications to take at Discharge Pnv No.95/Ferrous Fum/Folic AC [ Formula Tablet] 1 each PO DAILY 02/14/18 Acetaminophen [Tylenol Extra Strength] 500 mg PO Q4H PRN PRN 05/24/19 Aspirin [Aspirin, Baby] 81 mg PO DAILY@0800 09/04/19 Insulin Glargine [Lantus (BKC)] 10 units SUBCUT QHS 09/25/19 Labetalol [Trandate (Beta Ismael)] 200 mg PO BID #60 tab 10/19/19 The following prescriptions were given: Labetalol [Trandate (Beta Ismael)] 200 mg PO BID #60 tab Transmission Status: Pending to [id number] When: 1 week for blood pressure check. 6 weeks for visit Primary Care Physician: Care Physician,No Primary [Primary Care Provider] - Test Results: Test results from this visit will be discussed in further detail at your follow- up appointment, if applicable.
== END 2019-10-19 13:15 | disposition home or self-care (01) | DRG 560 ==
PROVIDERS: Obstetrics & Gynecology; Admitting Provider Obstetrics & Gynecology; Visit Provider Obstetrics & Gynecology
DX: O13.4 Gestational [pregnancy-induced] hypertension without significant proteinuria, complicating childbirth (principal); O24.424 Gestational diabetes mellitus in childbirth, insulin controlled; O99.214 Obesity complicating childbirth; E66.01 Morbid (severe) obesity due to excess calories; Z79.82 Long term (current) use of aspirin; Z79.4 Long term (current) use of insulin; Z3A.36 36 weeks gestation of pregnancy; Z37.0 Single live birth
CPT/HCPCS: 36415; 59025; 59050; 80053; 82565; 82570; 82962; 84156; 84450; 84460; 84550; 85025; 85461; 85610; 85730; 86850; 86900; 86901; 87635; 90384; 94799; 99218; J7120; G0378; J2790; U0003

== ENCOUNTER 2022-08-27 21:52 | Emergency (ER) | payer MEDICAID, SELFPAY ==
[2022-08-27 21:53] VITALS: BP 145/94; PULSE 132; RESP 18; TEMP 36.8; O2SAT 98; BMI 36.4
[2022-08-27] MEDS: Metoclopramide 10 MG/2 ML Vial IV (22:53)
[2022-08-27] MEDS: 0.9% Normal Saline 1,000 ML 999 ML IV (22:53)
--- NOTE | 2022-08-27 23:06 | EDS_ITS ---
HPI HPI - GI History of Present Illness Chief Complaint: Nausea/Vomiting Narrative Narrative: 27-year-old female presenting with nausea, vomiting. She states this started after surgery. Apparently she had gastric bypass 5 days ago at [facility] by Dr. Steel. She states it is an elective surgery. She states she contacted her surgeon a couple of days ago because she notes she had not been able to hold down much food. She is making less urine and stool is not quite diarrhea but not quite solid. She has had 2 bowel movements this week. She reports that every time she eats something she has pain in the left flank. It is sharp in nature. It does go away eventually. She is concerned she might be dehydrated because she has not been able to eat. She states that she called her surgeon 2 days ago and they told her she needed to get stat lab work but did not have her come to an office visit. She has not heard about her lab results. She denies fevers. She does states she is lightheaded and dizzy when she stands up. PFSH PFSH Home Medications vit no.95-ferrous fumarate 28 mg-folic acid 800 mcg tablet ( Multivitamins) 1 ea PO DAILY 02/14/18 [History Last Taken 10/16/19] acetaminophen 500 mg tablet 500 mg PO Q4H PRN PRN Pain Or Fever 05/24/19 [History Last Taken 05/24/19] metoclopramide HCl 10 mg tablet (Reglan) 10 mg PO Q6H PRN nausea and vomiting #14 tabs 08/28/22 [Rx Last Taken Unknown] sucralfate 100 mg/mL oral suspension (Carafate) 10 ml PO BID PRN epigastric pain #400 mL 08/28/22 [Rx Last Taken Unknown] Allergy/AdvReac Type Severity Reaction Status Date / Time cefdinir Allergy Vomiting Verified 08/27/22 21:55 morphine Allergy Rash Verified 08/27/22 21:55 peanut Allergy Anaphylaxis Verified 08/27/22 21:55 Social History Smoking Status: Never smoker ROS ROS ED Constitutional Constitutional ED: Denies chills or fever(s) ENT ENT ED: Denies rhinorrhea or sore throat Cardiovascular Cardiovascular: Reports other Details: Lightheadedness ; Denies chest pain Respiratory/Chest Respiratory/Chest: Denies cough or dyspnea Gastrointestinal Gastrointestinal: Reports abdominal pain, nausea and vomiting Genitourinary Genitourinary ED: Reports other Details: Decreased urine output ; Denies dysuria Musculoskeletal Musculoskeletal: Denies arthralgias Integumentary Denies abscess or Abrasions Neurologic Neurologic: Reports headache(s) Psychiatric Psychiatric: Denies anxiety or depression Endocrine Endocrinology: Denies polydipsia or polyphagia EXAM Physical Exam Const Vital Signs: 08/27/22 21:53 08/28/22 02:35 Temperature 98.3 F Temperature Source Temporal Pulse Rate 132 H 94 Respiratory Rate 18 17 Blood Pressure 145/94 H 123/87 H Blood Pressure Mean 111 99 Pulse Ox 98 100 Oxygen Delivery Method Room Air Room Air Positive well nourished General Appearance ED: NAD; Negative for pallor HEENT Reports dry mucous membranes normocephalic and atraumatic Mouth ED: Yes dry mucous membranes Mouth: dry mucous membranes Eyes PERRL Resp normal respiratory effort Effort and Inspection: Negative for respiratory distress Cardio regular rhythm Rate: tachycardic GI GI Narrative: TTP LUQ. Abdomen nonperitoneal. Surgical stitch sites look clean, dry, intact. Palpation: soft Neuro CN's II-XII intact bilaterally and moves all extremities Sensorium / Orientation: alert Motor Exam: strength 5/5 throughout Psych mental status grossly normal Skin General Skin Exam: Negative for jaundice or pallor MDM MDM MDM Narrative Medical decision making narrative: 27-year-old female presenting with left flank pain intermittently and nausea/vomiting. She has decreased output of urine and decree stool output because she cannot eat and drink. She is contacted her surgeon who had her do lab work but she has not seen the results. She has not been seen again by her surgeon. Differential includes postop infection, anemia, GI bleed, electrolyte abnormalities, dehydration, UTI, pyelonephritis, gastritis bowel perforation, bowel obstruction. Patient is given Reglan to help with her nausea. CBC to assess white blood cell count, hemoglobin, platelets, differential. BMP to assess, renal function, electrolytes. Liver function panel to assess the liver. Urinalysis to assess for UTI. CT of the abdomen pelvis with oral contrast will be obtained as well. CBC shows a normal white count of 7.5. Hemoglobin 14.9, hematocrit 45.7, platelets 355. Creatinine is normal 1.84 electrolytes normal with exception of a potassium of 3.2. Urinalysis shows 150 ketones. No evidence of infection. CT of the abdomen pelvis shows a left ovarian cyst which does not appear to be complex. There is no evidence of acute pathology otherwis e. On reevaluation the patient is feeling much better. Heart rate has come down. She does not feel lightheaded anymore. She is not nauseous anymore with the Reglan. Potassium was repleted orally with 40 mill equivalents of p.o. potassium. She tolerated this well. I made several attempts to try to get a hold of the surgeon or the on-call surgeon for [facility] and I did not receive a phone call back. She did tell me she supposed to be on Protonix but she was given extended release by mistake and they told her not to take it because of she is status post gastric bypass. She does not know what they were supposed to substitute. I am going to place her on Carafate. She states the Reglan helped a lot somata give her Reglan for nausea. Return precautions were discussed. Patient discharged home in stable condition. Impression: 1. Postop abdominal pain 2. Left ovarian cyst 3. Nausea/vomiting 4. Dehydration 5. Hypokalemia Lab Data Labs: Laboratory Results - last 24 hr 08/27/22 08/27/22 08/28/22 22:46 22:46 00:40 WBC 7.5 RBC 5.31 Hgb 14.9 Hct 45.7 MCV 86.1 MCH 28.1 MCHC 32.6 RDW Std Deviation 42.7 RDW Coeff of Dorcas 13.9 Plt Count 355 MPV 10.9 Immature Gran % (Auto) 0.300 Neut % (Auto) 57.5 Lymph % (Auto) 29.9 Dixon % (Auto) 9.6 Eos % (Auto) 2.0 Baso % (Auto) 0.7 Absolute Neuts (auto) 4.3 Absolute Lymphs (auto) 2.24 Nucleated RBC % 0 Sodium 137 Potassium 3.2 L Chloride 105 Carbon Dioxide 19.0 L Anion Gap 13 BUN 10 Creatinine 0.84 Estim Creat Clear Calc 83.95 Est GFR (MDRD) Af Amer 105 Est GFR (MDRD) Non-Af 87 BUN/Creatinine Ratio 11.9 Glucose 94 Calcium 9.5 Total Bilirubin 0.30 Direct Bilirubin 0.11 AST 41 H ALT 114 H Alkaline Phosphatase 148 H Total Protein 7.7 Albumin 3.6 Globulin 4.1 Urine Color Yellow Urine Clarity Clear Urine pH 5.0 Ur Specific [place] 1.030 Urine Protein 30 H Urine Glucose (UA) Normal Urine Ketones 150 A* Urine Occult Blood 25 H Urine Nitrite Negative Urine Bilirubin 1 H Urine Urobilinogen 4 H Ur Leukocyte Esterase 25 H Urine RBC 0-5 SEEN Urine WBC 0-5 SEEN Ur Squamous Epith Cells 0-5 SEEN Amorphous Sediment 1+ Urine Bacteria 2+ Hyaline Casts 5-10 SEEN Urine Mucus 1+ Radiography Diagnostic Testing: Clinical Impression(s) from Imaging Studies Abdomen CT 08/28/22 22:32 IMPRESSION: 1. Presumed recent cholecystectomy. No suspicious fluid collections. Mild band of atelectasis in the right lung base. Mild ventral body wall postoperative changes. 2. Gastrojejunostomy. Oral contrast reached most of the distal small bowel. Normal appendix. Moderate stool in the proximal half of the colon and in the sigmoid. 3. 5.4 cm left adnexal cystic lesion. Fairly simple by unenhanced CT but not fully evaluated. Recommendations: ACR White Paper guidelines (Ordoñez, et. al. JACR 2020;17(2):248-254) recommend pelvic ultrasound to better characterize this cyst. Electronically Signed: Rand Shrestha MD at 1:17 EDT , Discharge Plan Triage Chief Complaint: Nausea/Vomiting ED Provider: Davion Calvo Dx/Rx/DC Orders Prescriptions: New sucralfate [Carafate] 100 mg/mL suspension 10 ml PO BID PRN (Reason: epigastric pain) Qty: 400 0RF metoclopramide HCl [Reglan] 10 mg tablet 10 mg PO Q6H PRN (Reason: nausea and vomiting) Qty: 14 0RF No Action PNV cmb#95-ferrous fumarate-FA [ Multivitamins] 1 EACH tablet 1 ea PO DAILY acetaminophen 500 MG tablet 500 mg PO Q4H PRN PRN (Reason: Pain Or Fever) Primary Care Provider: Care Physician,No Primary Referrals: Care Physician,No Primary [Primary Care Provider] - Disposition Disposition: Home, Self Care
[2022-08-27 23:07] LABS: Absolute Lymphocyte Count 2.24 X10^3/uL (0.83-4.51); Absolute Neutrophil Count 4.3 X10^3/uL (2.0-7.7); Basophil# 0.05 X10^3/uL; Basophil% 0.7 % (0-1); Eosinophil# 0.15 X10^3/uL; Hematocrit 45.7 % (37-47); Hemoglobin 14.9 g/dL (12.0-15.0); Lymphocyte # 2.24 X10^3/ul (0.83-4.51); Lymphocyte % 29.9 % (19-41); Mean Corp Hgb Conc 32.6 g/dL (32-36); Mean Corpuscular Hgb 28.1 pg (27.0-32.0); Mean Corpuscular Volume 86.1 fL (81-99); Mean Platelet Vol. 10.9 fl (6.2-12.0); Monocyte# 0.72 X10^3/uL; Monocyte% 9.6 % (0-10); NRBC Flagged by Analyzer 0 % (0-5); Neutrophil # 4.32 X10^3/uL (2.7-7.7); Neutrophil % 57.5 % (47-70); Platelet Count 355 K/mm3 (150-450); RBC Distribution Width CV 13.9 % (11.6-14.6); RBC Distribution Width SD 42.7 fl (35.1-43.9); Red Blood Count 5.31 M/mm3 (4.2-5.4); White Blood Count 7.5 K/mm3 (4.4-11.0)
[2022-08-27 23:24] LABS: AST(SGOT) 41 U/L (15-37); Alanine Aminotransfer ALT/SGPT 114 U/L (13-56); Albumin, Serum 3.6 g/dL (3.2-5.0); Alkaline Phosphatase 148 U/L (45-117); Anion Gap 13 (5-15); BUN 10 mg/dL (7-18); BUN/Creat Ratio 11.9 RATIO (10-20); Bilirubin, Direct 0.11 mg/dL (0.00-0.30); Calcium,Total 9.5 mg/dL (8.5-10.1); Chloride 105 mmol/L (98-107); Creatinine, Serum 0.84 mg/dL (0.55-1.02); EST Glomerular Filtration Rate 87 mL/min (>60); Est Glom Filt Rate - Afr Amer 105 mL/min (>60); Estimated Creatinine Clearance 83.95 ml/min; Globulin 4.1 g/dL (2.2-4.2); Glucose 94 mg/dL (74-106); Potassium 3.2 mmol/L (3.5-5.1); Protein, Total 7.7 g/dL (6.4-8.2); Sodium Level 137 mmol/L (136-145)
[2022-08-28 00:52] LABS: Color, Urine Yellow (Yellow); Glucose, Dipstick Normal (Normal); Leukocyte Esterase-Dipstick 25 /ul (Negative); Nitrite-Dipstick Negative (Negative); Occult Blood-Urine 25 /ul (Negative); Protein-Dipstick 30 mg/dl (Negative); Urine Clarity Clear (Clear); Urine Urobilinogen 4 mg/dl (Normal)
[2022-08-28 00:54] LABS: Ketone-Dipstick 150 mg/dl (Negative); Urine Bilirubin Dipstick 1 mg/dL (Negative)
[2022-08-28 00:56] LABS: Amorphous Sediment 1+; Bacteria 2+ /hpf (None Seen); Hyaline Cast 5-10 SEEN /lpf (0-5); Mucous, Urine 1+ /hpf (<or=2+); Red Blood Cells-Urine 0-5 SEEN /hpf (0-5); Squamous Epithelial Cells - UA 0-5 SEEN /hpf (5-10); White Blood Cells 0-5 SEEN /hpf (0-5)
[2022-08-28] MEDS: 0.9% Normal Saline 1,000 ML 999 ML IV (01:08)
[2022-08-28 02:35] VITALS: BP 123/87; PULSE 94; RESP 17; O2SAT 100
[2022-08-28] MEDS: Potassium Chloride Oral Soln 20 MEQ/15 ML UDC 40 MEQ PO (02:41)
[2022-08-28] MEDS: Pantoprazole Sodium 40 MG Tablet PO (03:12)
--- NOTE | 2022-08-28 22:32 | CT_ITS ---
EXAM: CT ABDOMEN AND PELVIS WITHOUT INTRAVENOUS CONTRAST CLINICAL INDICATION: abdominal pain TECHNIQUE: Helically acquired images were obtained of the abdomen and pelvis without intravenous contrast. This CT exam was performed using one or more of the following dose reduction techniques: automated exposure control, adjustment of the mA and/or kV according to patient size, and/or use of iterative reconstruction technique. CONTRAST: Oral Gastrografin RADIATION DOSE: CTDIvol = 16.39 mGy, DLP = 855.96 mGy-cm. COMPARISON: Unenhanced exam September 10, 2015. FINDINGS: LOWER THORAX: Mild band of atelectasis in the right lung base. No cardiomegaly. No significant pericardial effusion. ABDOMEN: LIVER: Small zone of presumed focal fat in the typical location in the left lobe of the liver. GALLBLADDER AND BILE DUCTS: Gas bubbles in the ventral abdominal wall, mild soft tissue stranding in the upper abdomen midline right upper quadrant, presumed recent cholecystectomy. Cholecystectomy clips. No intra- or extrahepatic biliary ductal dilation. PANCREAS: Unremarkable. No focal cystic mass. SPLEEN: Unremarkable. Normal size without focal cystic or solid mass. ADRENALS: Unremarkable. No nodules. KIDNEYS AND URETERS: Unremarkable. Normal renal size and position. No hydronephrosis. STOMACH AND BOWEL: Postoperative changes of gastrojejunostomy. Oral contrast reached most of the distal small bowel. Moderate gas and stool in the proximal half of the colon, mild stool in the sigmoid colon, moderate gas in the rectum. No stomach or bowel distention. No focal inflammatory change. PELVIS: APPENDIX: No evidence of acute appendicitis. BLADDER: Unremarkable. REPRODUCTIVE: Large dominant follicle or cyst in the left ovary, 5.4 cm x 4.8 cm x 5 cm, appears simple on unenhanced CT. ABDOMEN and PELVIS: INTRAPERITONEAL SPACE: Unremarkable. No ascites or other fluid collection. No free air. BONES/JOINTS: L5 pars defects and slight grade 1 L4-5 anterolisthesis, similar to prior exam. No significant spinal stenosis. No suspicious lytic or blastic abnormality. SOFT TISSUES: Unremarkable. No discrete abdominal or pelvic wall hernia. VASCULATURE: Unremarkable. Abdominal aorta is non-dilated. LYMPH NODES: Unremarkable. No enlarged lymph nodes. CT/Abdomen/Pel W ORAL Cont Only IMPRESSION: 1. Presumed recent cholecystectomy. No suspicious fluid collections. Mild band of atelectasis in the right lung base. Mild ventral body wall postoperative changes. 2. Gastrojejunostomy. Oral contrast reached most of the distal small bowel. Normal appendix. Moderate stool in the proximal half of the colon and in the sigmoid. 3. 5.4 cm left adnexal cystic lesion. Fairly simple by unenhanced CT but not fully evaluated. Recommendations: ACR White Paper guidelines (Ordoñez, et. al. JACR 2020;17(2):248-254) recommend pelvic ultrasound to better characterize this cyst. Electronically Signed: Rand Shrestha MD at 1:17 EDT ,
== END 2022-08-28 03:57 | disposition home or self-care (01) ==
PROVIDERS: Emergency Provider Student in an Organized Health Care Education/Training Program; Visit Provider Student in an Organized Health Care Education/Training Program
DX: G89.18 Other acute postprocedural pain (principal); R10.9 Unspecified abdominal pain; E86.0 Dehydration; Z98.84 Bariatric surgery status; N83.202 Unspecified ovarian cyst, left side; E87.6 Hypokalemia; R11.2 Nausea with vomiting, unspecified; Z79.899 Other long term (current) drug therapy; R51.9 Headache, unspecified
CPT/HCPCS: 74176; 80048; 80076; 81001; 85025; 96361; 96374; 99284; J7030; A4216

== ENCOUNTER 2022-11-17 10:23 | Emergency (ER) | payer MEDICAID, SELFPAY ==
[2022-11-17 10:24] VITALS: BP 146/91; PULSE 90; RESP 14; TEMP 36.1; O2SAT 100; BMI 31.5
--- NOTE | 2022-11-17 10:55 | US_ITS ---
STUDY: FIRST TRIMESTER OBSTETRICAL ULTRASOUND REASON FOR EXAM: Female, 27 years old Positive home , left adnexal pain, -- History 8 cm left ovarian cyst 1 month ago LMP: October 20, 2022. TECHNIQUE: Transvaginal TECHNICAL QUALITY: Adequate. PRIOR ULTRASOUND: Comparison is made with prior study dated May 24, 2019. FINDINGS: There is visualization of a single gestational sac in a normal intrauterine position. The mean sac diameter (MSD) measures 8.3 mm, indicating an estimated gestational age (EGA) of 5 weeks, 4 days. The gestational sac has an irregular shape. There is no demonstrated yolk sac. The placenta is non-visualized. There is no demonstrated embryo ( pole). The estimated gestation age (EGA) by LMP is 4 weeks, 0 days. The estimated date of delivery (BELEM) by LMP is July 27, 2023. The estimated gestation age (EGA) by US is 5 weeks, 4 days. The estimated date of delivery (BELEM) by US is July 16, 2023. The uterus measures 10.8 cm x 7.8 cm x 4.9 cm. There is no demonstrated uterine fibroid. The cervix is closed. The right ovary measures 7.6 cm x 8.6 cm x 6.6 cm.. There is a 7.6 x 8.6 cm x 6.6 cm simple cyst in the right ovary. There is no visualized right adnexal mass or complex lesion. The left ovary measures 4.2 cm x 3.1 cm by 2.3 cm.. There is no left ovarian cyst. There is no visualized left adnexal mass or complex lesion. Good blood flow is seen in both ovaries. There is minimal fluid in the cul de sac. US/Transvaginal w/Preg US IMPRESSION: Irregular shaped intrauterine gestational sac without a pole or yolk sac. 7.6 cm x 8.6 cm x 6.6 cm simple cyst in the right ovary. Minimal amount of free fluid in the cul-de-sac. Electronically Signed: Ellis Murguia MD at 13:14 EDT ,
--- NOTE | 2022-11-17 10:57 | ED.VIS.FEGU ---
HPI HPI - Female History of Present Illness Chief Complaint: Female C/O Detail of Chief Complaint: Left adnexal pain Informant: patient Pain Pain: Negative for Pelvic Pain, Vulvar Pain or Vaginal Pain Maximum Severity: Severe Worsened by: Movement Relieved by: - (Nothing) Bleeding Issue: Negative for Vaginal bleeding, Passing clots or Passing tissue Associated Symptoms Associated Symptoms: Positive for Dysuria, Frequency and Irregular Period; Negative for Urgency, Hematuria or Missed Period Last known menstrual period: October 16, positive home test P: 2 Narrative Narrative: Patient is a 27-year-old female who was last normal menstrual was October 16. She had a positive home as yesterday. She has a known history of an 8 cm left ovarian cyst diagnosed on ultrasound 1 month ago. She presents with abrupt onset of left lower quadrant abdominal pain. She was sent to the ER by her sales special agent. She denies orthostatic symptoms. She does report dysuria and slight frequency. She denies hematuria. Denies history of renal ureterolithiasis. She denies black or maroon-colored stool. Denies blood or mucus in her stool. She denies change in bowel habitus. She points to the left lower back where she has most discomfort. She denies history of ectopic . She denies history of STI. She denies history of endometriosis. She does have history of gestational diabetes. Prior similar symptoms: No Recent Illness/Hospitalization: Yes PFSH PFSH Home Medications vit no.95-ferrous fumarate 28 mg-folic acid 800 mcg tablet ( Multivitamins) 1 ea PO DAILY 02/14/18 [History Last Taken 10/16/19] acetaminophen 500 mg tablet 500 mg PO Q4H PRN PRN Pain Or Fever 05/24/19 [History Last Taken 05/24/19] metoclopramide HCl 10 mg tablet (Reglan) 10 mg PO Q6H PRN nausea and vomiting #14 tabs 08/28/22 [Rx Last Taken Unknown] sucralfate 100 mg/mL oral suspension (Carafate) 10 ml PO BID PRN epigastric pain #400 mL 08/28/22 [Rx Last Taken Unknown] Allergy/AdvReac Type Severity Reaction Status Date / Time cefdinir Allergy Vomiting Verified 11/17/22 10:24 morphine Allergy Rash Verified 11/17/22 10:24 peanut Allergy Anaphylaxis Verified 11/17/22 10:24 Social History (Updated 11/17/22 @ 11:[address] Ru Oden MD) household members: children Smoking Status: Never smoker ROS ROS ED Constitutional Constitutional ED: Denies chills, fever(s) or subjective Eyes Eyes: Denies change in vision ENT ENT ED: Denies rhinorrhea or sore throat Cardiovascular Cardiovascular: Denies chest pain or palpitations Respiratory/Chest Respiratory/Chest: Denies cough, dyspnea or dyspnea on exertion Gastrointestinal Gastrointestinal: Reports abdominal pain and nausea; Denies diarrhea or vomiting Genitourinary Genitourinary ED: Reports dysuria and urinary frequency; Denies hematuria Musculoskeletal Musculoskeletal: Denies arthralgias, myalgias or neck pain Integumentary Denies rash Neurologic Neurologic: Denies paresthesias or weakness Psychiatric Psychiatric: Reports anxiety Endocrine Endocrinology: Denies heat intolerance Hematologic/Lymphatic Hematologic/Lymphatic: Denies easy bleeding or easy bruising EXAM Physical Exam Const Vital Signs: 11/17/22 10:24 11/17/22 14:37 Temperature 97 F L Temperature Source Temporal Pulse Rate 90 98 Respiratory Rate 14 18 Blood Pressure 146/91 H 134/83 H Blood Pressure Mean 109 100 Pulse Ox 100 93 Oxygen Delivery Method Room Air Room Air Positive well nourished and well developed Constitutional Narrative: Patient appears uncomfortable. Patient became tearful after abdominal exam. General Appearance ED: well developed; Negative for NAD, odor of alcohol detected or pallor HEENT Reports moist mucous membranes HEENT Narrative: Head is atraumatic normocephalic. Ears are normal. Nares are patent. Eyes PERRL and EOMs intact bilaterally General Eye ED: Negative for pale conjunctiva or scleral icterus Neck no lymphadenopathy, supple and no JVD Chest Wall inspection of chest normal and palpation of chest normal Resp normal respiratory effort and clear to auscultation bilaterally Cardio regular rate, regular rhythm, S1 normal heart sound, no murmurs and no JVD GI soft to palpation, non-distended and no masses; Negative for non-tender GI Narrative: Question percussion tenderness. Auscultation: hypoactive bowel sounds Palpation: tender LLQ and guarding LLQ; Negative for rigid, hepatomegaly, splenomegaly or mass Back/Spine no CVA tenderness Lumbar Spine / Lower Back: lumbar spinal tenderness Extremity normal to inspection and full ROM General Extremety ED: Negative for edema or tenderness General Extremity: Negative for edema Neuro oriented x3, CN's II-XII intact bilaterally and no sensory deficits noted Sensorium / Orientation: alert Psych Mood & Affect: anxious Skin no rashes or lesions noted and no wounds General Skin Exam: Negative for jaundice or pallor MDM MDM MDM Narrative Medical decision making narrative: With history of recent test and history of 8 cm left ovarian cyst need to evaluate for ectopic , ovarian torsion. Serum quantitative level was obtained as well as transvaginal ultrasound. The maintenance parts technician was contacted personally by me to inform her that there is concern for as well as torsion. UA was obtained because of her urologic symptoms. CBC to assess white count differential. Patient was made NPO. Patient was medicated with Zofran for her nausea and morphine for her pain. History & Record Review Additional record(s) reviewed:: Prior outpatient record (Records from outside facility indicates patient did have a large left ovarian cyst.) Lab Data Attestation: I reviewed the patient's lab results. Lab results narrative: Urinalysis is unremarkable. Quantitative hCG is 46. Labs: Laboratory Results - last 24 hr 11/17/22 11/17/22 11:11 11:20 HCG, Quant 46 H Urine Color Yellow Urine Clarity Cloudy Urine pH 5.0 Ur Specific Strawn 1.025 Urine Protein 30 H Urine Glucose (UA) Normal Urine Ketones 150 A* Urine Occult Blood Negative Urine Nitrite Negative Urine Bilirubin 1 H Urine Urobilinogen 8 H Ur Leukocyte Esterase 100 H Urine RBC 0 SEEN Urine WBC 0-5 SEEN Ur Squamous Epith Cells 0-5 SEEN Urine Bacteria RARE Urine Mucus 3+ Radiography Diagnostic Testing: Clinical Impression(s) from Imaging Studies Obstetrics Ultrasound 11/17/22 10:55 IMPRESSION: Irregular shaped intrauterine gestational sac without a pole or yolk sac. 7.6 cm x 8.6 cm x 6.6 cm simple cyst in the right ovary. Minimal amount of free fluid in the cul-de-sac. Electronically Signed: Ellis Murguia MD at 13:14 EDT , Management Discussion w/another healthcare provider: Parts Sales Counterperson (Dr. Miller who is on-call for [facility] was paged. Patient is seen through [facility]) Treatment and Re-Evaluation Narrative: Plan is quantitative hCG in 48 hours. Discharge Plan Triage Chief Complaint: Female C/O ED Provider: Ru Oden Dx/Rx/DC Orders Clinical Impression: Early stage of , Cyst of left ovary Instructions: 1st Trimester, ED Ovarian Cyst Prescriptions: No Action PNV cmb#95-ferrous fumarate-FA [ Multivitamins] 1 EACH tablet 1 ea PO DAILY acetaminophen 500 MG tablet 500 mg PO Q4H PRN PRN (Reason: Pain Or Fever) sucralfate [Carafate] 100 mg/mL suspension 10 ml PO BID PRN (Reason: epigastric pain) Qty: 400 0RF metoclopramide HCl [Reglan] 10 mg tablet 10 mg PO Q6H PRN (Reason: nausea and vomiting) Qty: 14 0RF Primary Care Provider: Care Physician,No Primary Referrals: Chelsea Miller MD [Med Staff - Active Staff] - 3-5 Days Care Physician,No Primary [Primary Care Provider] - Activity Restrictions/Additional Instructions: 1. You will need to contact the lab for repeat test in 48 hours. Recommend having the test done here since there can be a 15 to 20% variance if done at another lab. 2. Contact Dr. Miller for follow-up appointment to discuss results of repeat hCG level Disposition Disposition: Home, Self Care
[2022-11-17 11:15] LABS: Red Blood Cells-Urine 0 SEEN /hpf (0-5)
[2022-11-17 11:20] LABS: Color, Urine Yellow (Yellow); Glucose, Dipstick Normal (Normal); Ketone-Dipstick 150 mg/dl (Negative); Leukocyte Esterase-Dipstick 100 /ul (Negative); Nitrite-Dipstick Negative (Negative); Occult Blood-Urine Negative /ul (Negative); Protein-Dipstick 30 mg/dl (Negative); Specific Gravity, Urine 1.025 (1.002-1.030); Urine Bilirubin Dipstick 1 mg/dL (Negative); Urine Clarity Cloudy (Clear); Urine Urobilinogen 8 mg/dl (Normal)
[2022-11-17 11:25] LABS: Bacteria RARE /hpf (None Seen); Mucous, Urine 3+ /hpf (<or=2+); Squamous Epithelial Cells - UA 0-5 SEEN /hpf (5-10); White Blood Cells 0-5 SEEN /hpf (0-5)
[2022-11-17] MEDS: Ondansetron 4 MG/2 ML Vial IV (11:26)
[2022-11-17] MEDS: Morphine 4 MG/ML Syringe IV (11:27)
[2022-11-17 11:46] LABS: hCG Titer Quant., Serum 46 mIU/mL (1-3)
[2022-11-17 14:37] VITALS: BP 134/83; PULSE 98; RESP 18; O2SAT 93
== END 2022-11-17 15:30 | disposition home or self-care (01) ==
PROVIDERS: Emergency Provider Emergency Medicine; Visit Provider Emergency Medicine
DX: O34.81 Maternal care for other abnormalities of pelvic organs, first trimester (principal); N83.202 Unspecified ovarian cyst, left side; R11.0 Nausea; R30.0 Dysuria; Z86.32 Personal history of gestational diabetes; Z3A.01 Less than 8 weeks gestation of pregnancy
CPT/HCPCS: 76817; 81001; 84702; 96374; 96375; 99283; A4216; J2405

== ENCOUNTER → 2022-11-19 | Outpatient (CLI) | payer MEDICAID, SELFPAY ==
[2022-11-19 12:09] LABS: Internal QC Validated? YES +Cl - CLEAR BKGD; Record Kit Lot#,Urine Preg HCG0000667200
[2022-11-19 12:16] LABS: Pregnancy, Urine Positive Negative
[2022-11-19 16:02] LABS: hCG Titer Quant., Serum 109 mIU/mL (1-3)
== END | disposition home or self-care (01) ==
PROVIDERS: Referring Provider Emergency Medicine; Visit Provider Emergency Medicine
DX: O99.891 Other specified diseases and conditions complicating pregnancy (principal); R52 Pain, unspecified; Z3A.00 Weeks of gestation of pregnancy not specified
CPT/HCPCS: 36415; 81025; 84702

== ENCOUNTER 2022-12-17 09:04 | Emergency (ER) | payer MEDICAID, SELFPAY ==
[2022-12-17 09:05] VITALS: BP 138/92; PULSE 81; RESP 14; TEMP 36.6; O2SAT 98; BMI 29.8
--- NOTE | 2022-12-17 09:07 | EX.ED.DYSGE1 ---
HPI History of Present Illness Chief Complaint: Abd Pain [facility] Medical History (Updated 12/17/22 @ 09:31 by Cherry Rodriguez) Gestational diabetes Gestational diabetes Home Medications vit no.95-ferrous fumarate 28 mg-folic acid 800 mcg tablet ( Multivitamins) 1 ea PO DAILY 02/14/18 [History Last Taken 10/16/19] acetaminophen 500 mg tablet 500 mg PO Q4H PRN PRN Pain Or Fever 05/24/19 [History Last Taken 05/24/19] metoclopramide HCl 10 mg tablet (Reglan) 10 mg PO Q6H PRN nausea and vomiting #14 tabs 08/28/22 [Rx Last Taken Unknown] sucralfate 100 mg/mL oral suspension (Carafate) 10 ml PO BID PRN epigastric pain #400 mL 08/28/22 [Rx Last Taken Unknown] Allergy/AdvReac Type Severity Reaction Status Date / Time cefdinir Allergy Vomiting Verified 12/17/22 09:05 morphine Allergy Rash Verified 12/17/22 09:05 peanut Allergy Anaphylaxis Verified 12/17/22 09:05 Social History (Updated 11/17/22 @ 11:[address] Ru Oden MD) household members: children Smoking Status: Never smoker EXAM Physical Exam Const Vital Signs: 12/17/22 09:05 Temperature 98 F Temperature Source Temporal Pulse Rate 81 Respiratory Rate 14 Blood Pressure 138/92 H Blood Pressure Mean 107 Pulse Ox 98 Oxygen Delivery Method Room Air [facility] MDM Narrative Medical decision making narrative: HISTORY OF PRESENT ILLNESS: 27-year-old female here with concern for lump on the left side. She is 8 weeks . She further states she had an ultrasound 1/2 weeks ago which showed a live intrauterine no evidence of ectopic . REVIEW OF SYSTEMS: Pertinent positives: left sided abdominal lump Pertinent negatives: Vomiting, vaginal bleeding, passage of tissue, fever PHYSICAL EXAM: Nursing triage notes reviewed, Vital signs reviewed Constitutional: please see mdm HENT: MMM Eyes: Pupils equal round and reactive to light, Extraocular muscles intact Neck: No stridor, no JVD, full neck ROM Lungs: Clear to auscultation, No wheezing or rales. No increased work of breathing, no conversational dyspnea, no accessory muscle use, no nasal flaring. No respiratory distress noted Heart: Regular rate and rhythm, No murmurs, No rubs and No gallops, 2+ distal pulses (radial, femoral, posterior tibial) in all extremities Abdomen: Soft, there is approximately 3 x 3 cm area that feels like a lump or mass just left of the umbilicus., rebound or guarding, no obvious peritoneal signs, no palpable pulsatile abdominal masses, no auscultated abdominal bruit no adnexal tenderness noted. : No CVAT Extremities: No edema Skin: No rash or lesions noted MEDICAL DECISION MAKING: Chief Complaint: Abdominal lung External records reviewed: prior ED notes reviewed: Last ED visit on November 17, 2022 for left adnexal pain. Imaging studies reviewed: IMPRESSION: Irregular shaped intrauterine gestational sac without a pole or yolk sac. 7.6 cm x 8.6 cm x 6.6 cm simple cyst in the right ovary. Minimal amount of free fluid in the cul-de-sac. Factors affecting care: Approximately 8 weeks OB Social determinants of health: none History obtained from others: none Consults: none MDM Narrative: The patient was hemodynamically stable, afebrile, nontoxic-appearing. There is a palpable freely movable, lump in the left side of the abdomen. Ultrasound despite the patient abdomen showed approximately 9 x 7 x 6 cm hypoechoic area with Doppler signal consistent with likely hematoma versus cyst this is just below the subcutaneous layer and just above the peritoneum. Differential diagnosis includes: Abdominal wall hematoma, abdominal wall cyst, lipoma, abdominal wall abscess There is no indication for incision or drainage. I do not suspect the patient suffering from an abscess at this time there is no infectious symptoms she is afebrile she is nontoxic-appearing she has no sirs or sepsis criteria in terms of her vital signs or clinical exam. Given she is and a CT scan would not be indicated. No decays for repeat ultrasound as patient had an ultrasound 1/2 weeks ago which showed live intrauterine . There is no signs or symptoms of any related concerns. Given she is anti-inflammatories are indicated. I shared my clinical suspicion with the patient. Given the positive dopplerable signal I did not feel the need to ascertain the nature of this fluid in her abdominal wall. I suspect it is a hematoma. This should resolve on its own. Gave Tylenol instructions. Infection instructions and COCKTA[employer]OUNGE [employer]NAGER follow-up. The patient and/or family, caregivers express understanding. The patient and/or family, caregivers agrees with the plan. Shared decision making: I will have a discussion with the patient and or visitors regarding risk/benefits of further testing or admission. They will be made aware of of the risk/benefits inherent in this decision they will be given the opportunity to voice understanding. Total critical care time today provided was at least 0 minutes. This excludes separately billable procedures. Critical care time (if documented) is secondary to the patient having high probability of clinically significant/life threatening deterioration in the patient's condition which required my urgent intervention. Impression: 1. Abdominal wall fluid collection 2. First trimester Dispo: Discharge Discharge Plan Triage Chief Complaint: Abd Pain ED Provider: Rito Bloom Dx/Rx/DC Orders Prescriptions: No Action PNV cmb#95-ferrous fumarate-FA [ Multivitamins] 1 EACH tablet 1 ea PO DAILY acetaminophen 500 MG tablet 500 mg PO Q4H PRN PRN (Reason: Pain Or Fever) sucralfate [Carafate] 100 mg/mL suspension 10 ml PO BID PRN (Reason: epigastric pain) Qty: 400 0RF metoclopramide HCl [Reglan] 10 mg tablet 10 mg PO Q6H PRN (Reason: nausea and vomiting) Qty: 14 0RF Primary Care Provider: Care Physician,No Primary Referrals: Care Physician,No Primary [Primary Care Provider] -
== END 2022-12-17 10:09 | disposition home or self-care (01) ==
PROVIDERS: Emergency Provider Emergency Medicine; Visit Provider Emergency Medicine
DX: O99.891 Other specified diseases and conditions complicating pregnancy (principal); R18.8 Other ascites; Z3A.08 8 weeks gestation of pregnancy
CPT/HCPCS: 99282

== ENCOUNTER 2022-12-19 20:28 | Emergency (ER) | payer MEDICAID, SELFPAY ==
[2022-12-19 20:29] VITALS: BP 127/91; PULSE 94; RESP 15; TEMP 36.2; O2SAT 100; BMI 29.5
--- NOTE | 2022-12-19 21:13 | US_ITS ---
STUDY: FIRST TRIMESTER OBSTETRICAL ULTRASOUND REASON FOR EXAM: Female, 27 years old r/o ovarian cyst -- PAIN WITH CYST LMP: October 20, 2022 TECHNIQUE: Transvaginal TECHNICAL QUALITY: Adequate. PRIOR ULTRASOUND: November 17, 2022 OB ultrasound FINDINGS: There is visualization of a single gestational sac in a normal intrauterine position. days. The gestational sac shape is within normal limits. There is a visualized yolk sac. The yolk sac measures 4 mm. The placenta is non-visualized. There is a visualized early suggestion of a umbilical cord with an adjacent small cystic structure suggesting a possible first trimester umbilical cord cyst. This measures approximately 7 x 7 x 5 mm. The radiologist gestational sac there is a visualized curvilinear fluid collection which may represent a small subchronic hemorrhage. There is visualization of a live embryo. The crown-rump length (CRL) measures 1.88 cm, indicating an estimated gestational age (EGA) of 8 weeks, 2 days. There is demonstrated cardiac activity with a heart rate of 173 bpm. The estimated gestation age (EGA) by LMP is 8 weeks, 4 days. The estimated date of delivery (BELEM) by LMP is 07/27/2023. The estimated gestation age (EGA) by US is 8 weeks, 2 days. The estimated date of delivery (BELEM) by US is July 29, 2023.. The uterus measures 11.4 x 8.2 x 6.7 cm. There is no demonstrated uterine fibroid. The cervix is closed. As seen on the prior study November 17, 2022, there is a large right side anechoic thin-walled avascular adnexal cystic structure measuring 8.9 x 8.4 x 7.6 cm. Allowing for differences in measuring technique this is similar to the prior study. The left ovary measures 3.4 x 1.5 x 3.5. There is no left ovarian cyst. There is no visualized left adnexal mass or complex lesion. There is no fluid in the cul de sac. US/Transvaginal w/Preg US IMPRESSION: Single live intrauterine . 8 weeks 2 days by ultrasound. Estimated delivery date 07/29/2023. Findings suggest a small subchorionic hemorrhage. There is a visualized small 7 x 7 x 5 mm cystic structure that is suggestive of a small first trimester umbilical cord cyst. Recommend continued follow-up. Large anechoic cystic mass in the right adnexa measuring 8.9 x 8.4 x 7.6 cm. This may represent a large corpus luteal cyst. Appropriate follow-up is warranted as this cyst is atypical by size. Electronically Signed: Kallie Cortes MD at 0:23 EDT ,
--- NOTE | 2022-12-19 23:00 | EX.ED.DYSGE1 ---
HPI History of Present Illness Chief Complaint: Abd Pain [facility] Medical History (Updated 12/20/22 @ 00:[address] Rito Bloom DO) Gestational diabetes Gestational diabetes Home Medications vit no.95-ferrous fumarate 28 mg-folic acid 800 mcg tablet ( Multivitamins) 1 ea PO DAILY 02/14/18 [History Last Taken 10/16/19] acetaminophen 500 mg tablet 500 mg PO Q4H PRN PRN Pain Or Fever 05/24/19 [History Last Taken 05/24/19] ondansetron 4 mg disintegrating tablet 4 mg PO Q8H PRN nausea and vomiting 3 days #9 tabs 12/20/22 [Rx Last Taken Unknown] Allergy/AdvReac Type Severity Reaction Status Date / Time cefdinir Allergy Vomiting Verified 12/19/22 20:35 morphine Allergy Rash Verified 12/19/22 20:35 peanut Allergy Anaphylaxis Verified 12/19/22 20:35 Social History (Updated 11/17/22 @ 11:[address] Ru Oden MD) household members: children Smoking Status: Never smoker EXAM Physical Exam Const Vital Signs: 12/19/22 20:29 Temperature 97.1 F L Temperature Source Temporal Pulse Rate 94 Respiratory Rate 15 Blood Pressure 127/91 H Blood Pressure Mean 103 Pulse Ox 100 Oxygen Delivery Method Room Air MDM MDM MDM Narrative Medical decision making narrative: HISTORY OF PRESENT ILLNESS: 27-year-old female here with concern for a lump in the left side of her abdomen. REVIEW OF SYSTEMS: Pertinent positives: abdominal pain associated with lump Pertinent negatives: No abdominal pain, vaginal bleeding, discharge, passage of tissue, leakage of fluid. PHYSICAL EXAM: Nursing triage notes reviewed, Vital signs reviewed Constitutional: please see mdm HENT: MMM Eyes: Pupils equal round and reactive to light, Extraocular muscles intact Neck: No stridor, no JVD, full neck ROM Lungs: Clear to auscultation, No wheezing or rales. No increased work of breathing, no conversational dyspnea, no accessory muscle use, no nasal flaring. No respiratory distress noted Heart: Regular rate and rhythm, No murmurs, No rubs and No gallops, 2+ distal pulses (radial, femoral, posterior tibial) in all extremities Abdomen: Soft, there is a palpable approximate 3 x 3 cm area of a mass in the left lower quadrant of the abdomen. There is no Rigidity, rebound or guarding, no obvious peritoneal signs, no palpable pulsatile abdominal masses, no auscultated abdominal bruit : No CVAT Extremities: No edema Neuro: No focal neurological deficits, cranial nerves II through XII intact, 5/5 strength in all extremities. Intact sensation to light touch in all extremities, 2+ reflexes bilateral patella tendons. Normal gait. No ataxia. Skin: No rash or lesions noted MEDICAL DECISION MAKING: Chief Complaint: Lump in the left side of the abdomen External records reviewed: Prior ED visits reviewed: Seen in the ED on 12/17/2022 by myself this time and ultrasounds performed and showed a cystic structure in left abdomen. Factors affecting care: Left ovarian cyst, currently Social determinants of health: none History obtained from others: none Consults: none [facility] Narrative: Patient was hemodynamically stable, afebrile, nontoxic-appearing. Exam with masslike structure left lower quadrant of the abdomen. Ultrasound showed approximately 8 x 8 x 9 large cystic structure left abdomen. My ultrasound showed evidence of a heartbeat. I considered the following differential diagnosis: Ovarian cyst, abdominal wall cyst ALL IMAGES (IF OBTAINED) HAVE BEEN PERSONALLY REVIEWED AND INTERPRETED BY MYSELF. Given is her second visit I did want to make sure the patient did not have any PROGRAM HOST emergencies such as miscarriage or demise. Did obtain a transvaginal ultrasound. US pending at this time. The patient and/or family, caregivers express understanding. The patient and/or family, caregivers agrees with the plan. Shared decision making: I will have a discussion with the patient and or visitors regarding risk/benefits of further testing or admission. They will be made aware of of the risk/benefits inherent in this decision they will be given the opportunity to voice understanding. Total critical care time today provided was at least 0 [] minutes. This excludes separately billable procedures. Critical care time (if documented) is secondary to the patient having high probability of clinically significant/life threatening deterioration in the patient's condition which required my urgent intervention. Impression: 1. corpus luteum cyst 2. 1st trimester pregnency 3. subchorionic hemmorhage 4. umbilical cord cyst Dispo: discharge Radiography Diagnostic Testing: Clinical Impression(s) from Imaging Studies Obstetrics Ultrasound 12/19/22 21:13 IMPRESSION: Single live intrauterine . 8 weeks 2 days by ultrasound. Estimated delivery date 07/29/2023. Findings suggest a small subchorionic hemorrhage. There is a visualized small 7 x 7 x 5 mm cystic structure that is suggestive of a small first trimester umbilical cord cyst. Recommend continued follow-up. Large anechoic cystic mass in the right adnexa measuring 8.9 x 8.4 x 7.6 cm. This may represent a large corpus luteal cyst. Appropriate follow-up is warranted as this cyst is atypical by size. Electronically Signed: Kallie Cortes MD at 0:23 EDT , Discharge Plan Triage Chief Complaint: Abd Pain ED Provider: Rito Bloom Dx/Rx/DC Orders Clinical Impression: Corpus luteum cyst Instructions: 1st Trimester, ED Abdominal Pain, Early Prescriptions: New ondansetron 4 mg tablet,disintegrating 4 mg PO Q8H PRN (Reason: nausea and vomiting) 3 Days Qty: 9 0RF No Action PNV cmb#95-ferrous fumarate-FA [ Multivitamins] 1 EACH tablet 1 ea PO DAILY acetaminophen 500 MG tablet 500 mg PO Q4H PRN PRN (Reason: Pain Or Fever) Primary Care Provider: Natalie Blum Referrals: Pamela Dumont MD [Med Staff - Active Staff] - Activity Restrictions/Additional Instructions: Thank you for trusting us with your care today! Please take Tylenol (2 pills, 650 mg) every 6 hours as needed for pain and fever control. Please take Zofran as needed. Please return to the emergency department if your symptoms change or worsen. Please follow with your primary care physician for further outpatient evaluation and management. Disposition Disposition: Home, Self Care
[2022-12-19] MEDS: Ondansetron ODT 4 MG Tablet PO (23:03)
== END 2022-12-20 00:44 | disposition home or self-care (01) ==
PROVIDERS: Emergency Provider Emergency Medicine; PCP Physician Assistant; Visit Provider Emergency Medicine
DX: O99.891 Other specified diseases and conditions complicating pregnancy (principal); N83.202 Unspecified ovarian cyst, left side; O34.81 Maternal care for other abnormalities of pelvic organs, first trimester; O20.8 Other hemorrhage in early pregnancy; N83.10 Corpus luteum cyst of ovary, unspecified side; Z3A.08 8 weeks gestation of pregnancy
CPT/HCPCS: 76817; 99283

== ENCOUNTER 2023-02-18 20:13 | Emergency (ER) | payer MEDICAID, SELFPAY ==
[2023-02-18 20:14] VITALS: BP 128/80; PULSE 89; RESP 16; TEMP 36.4; O2SAT 100; BMI 29.2
--- NOTE | 2023-02-18 23:21 | ED.VIS.FEGU ---
HPI HPI - Female History of Present Illness Chief Complaint: Vag Bld, Preg Detail of Chief Complaint: Vaginal bleeding, second trimester Informant: patient Pain Pain: Negative for Pelvic Pain, Vulvar Pain or Vaginal Pain Quality: Positive for Cramping Location: Suprapubic Current Severity: Mild Maximum Severity: Moderate Relieved by: - (Nothing) Bleeding Issue: Positive for Vaginal bleeding; Negative for Passing clots or Passing tissue Onset: Hours Context: Sudden Onset Timing: Intermittent Current Severity: - (Patient reports a gush of blood while sitting.) Associated Symptoms Associated Symptoms: Positive for Frequency and Missed Period; Negative for Dysuria, Urgency or Hematuria Last known menstrual period: Patient is 18 weeks gestation. She has had a ultrasound that revealed a si Test: Positive Sexually: Positive for Active Control: No control P: 2 Ab: 0 Narrative Narrative: Patient is a 27-year-old G3, P2 female who has a negative blood type who presents with gush of blood while sitting. She had no complication with the first 2 . She reports cramping pain that she localizes in the suprapubic area. She did not note any clots with the gush of blood. She did contact her OB who is affiliated with [facility] who recommended she come to the emergency department. She states she has not felt the baby kick during her entire . She denies fever, chills night sweats. She denies dysuria or hematuria. She does have frequency. She denies low back or flank pain. There is no history of trauma. Prior similar symptoms: No Recent Illness/Hospitalization: No PFSH PFSH Medical History Gestational diabetes Gestational diabetes Home Medications vit no.95-ferrous fumarate 28 mg-folic acid 800 mcg tablet ( Multivitamins) 1 ea PO DAILY 02/14/18 [History Last Taken 10/16/19] acetaminophen 500 mg tablet 500 mg PO Q4H PRN PRN Pain Or Fever 05/24/19 [History Last Taken 05/24/19] ondansetron 4 mg disintegrating tablet 4 mg PO Q8H PRN nausea and vomiting 3 days #9 tabs 12/20/22 [Rx Last Taken Unknown] Allergy/AdvReac Type Severity Reaction Status Date / Time cefdinir Allergy Vomiting Verified 02/18/23 20:16 morphine Allergy Rash Verified 02/18/23 20:16 peanut Allergy Anaphylaxis Verified 02/18/23 20:16 Social History household members: children Smoking Status: Never smoker ROS ROS ED Constitutional Constitutional ED: Denies chills, fever(s), subjective or sweats Eyes Eyes: Denies blurry vision, change in vision or diplopia ENT ENT ED: Denies rhinorrhea or sore throat Cardiovascular Cardiovascular: Denies chest pain or palpitations Respiratory/Chest Respiratory/Chest: Denies cough, dyspnea or dyspnea on exertion Gastrointestinal Gastrointestinal: Reports abdominal pain; Denies constipation, diarrhea, melena or vomiting Genitourinary Genitourinary ED: Reports urinary frequency; Denies dysuria or hematuria Musculoskeletal Musculoskeletal: Denies arthralgias, myalgias or neck pain Integumentary Denies rash Neurologic Neurologic: Denies headache(s) or paresthesias Psychiatric Psychiatric: Reports anxiety Hematologic/Lymphatic Hematologic/Lymphatic: Denies easy bleeding or easy bruising EXAM Physical Exam Const Vital Signs: 02/18/23 20:14 02/18/23 23:52 Temperature 97.6 F L Temperature Source Temporal Pulse Rate 89 66 Respiratory Rate 16 15 Blood Pressure 128/80 H Blood Pressure Mean 96 Pulse Ox 100 100 Oxygen Delivery Method Room Air Positive well nourished, well developed and obese General Appearance ED: well developed and NAD; Negative for odor of alcohol detected or pallor Nutritional Appearance: obese HEENT Reports moist mucous membranes HEENT Narrative: Head is atraumatic and normocephalic. Ears are normal. Nares are patent. Eyes PERRL and EOMs intact bilaterally General Eye ED: Negative for pale conjunctiva or scleral icterus Neck no lymphadenopathy, supple and no JVD Chest Wall inspection of chest normal and palpation of chest normal Resp normal respiratory effort and clear to auscultation bilaterally Cardio regular rate, regular rhythm, S1 normal heart sound, no murmurs and no JVD GI normal to inspection, nondistended, normoactive bowel sounds, soft to palpation and non-distended; Negative for non-tender GI Narrative: Fundal height is 1 fingerbreadth below the umbilicus. heart tones are 145. Auscultation: normoactive bowel sounds Palpation: Negative for tender, guarding, rigid, hepatomegaly or splenomegaly Narrative: External genitalia normal. Vaginal mucosa was normal. Cervical mucosa is normal. There is no blood in the vaginal vault. Bimanual exam reveals the external os to be slightly open to fingertip. There is no right or left adnexal mass appreciated. Back/Spine no CVA tenderness Extremity normal to inspection and full ROM General Extremety ED: Negative for edema or tenderness General Extremity: Negative for edema Neuro oriented x3, CN's II-XII intact bilaterally and no sensory deficits noted Sensorium / Orientation: alert Motor Exam: strength 5/5 throughout Psych mental status grossly normal Skin no rashes or lesions noted and no wounds General Skin Exam: Negative for jaundice or pallor MDM MDM MDM Narrative Medical decision making narrative: Differential diagnosis would include vaginal bleeding, bleeding from cervix, threatened AB. She did have an outpatient ultrasound which revealed a subchorionic bleed. This may be the cause of her gush of blood . Since she has a negative blood RhoGAM protocol was initiated. Since heart tones are 145 and the os is closed with no blood noted ultrasound was not obtained. History & Record Review Additional record(s) reviewed:: Prior outpatient record (Outpatient ultrasound that revealed single live intrauterine .) and Prior labs Discharge Plan Triage Chief Complaint: Vag Bld, Preg ED Provider: Ru Oden Dx/Rx/DC Orders Clinical Impression: Vaginal bleeding before 22 weeks gestation, Encounter for prophylactic administration of RhoGAM Prescriptions: No Action PNV cmb#95-ferrous fumarate-FA [ Multivitamins] 1 EACH tablet 1 ea PO DAILY acetaminophen 500 MG tablet 500 mg PO Q4H PRN PRN (Reason: Pain Or Fever) ondansetron 4 mg tablet,disintegrating 4 mg PO Q8H PRN (Reason: nausea and vomiting) 3 Days Qty: 9 0RF Primary Care Provider: Natalie Blum Referrals: Chelsea Miller MD [Med Staff - Active Staff] - 3-5 Days Natalie Blum PA [Primary Care Provider] - Disposition Disposition: Home, Self Care
[2023-02-18 23:52] VITALS: PULSE 66; RESP 15; O2SAT 100
== END 2023-02-19 00:13 | disposition home or self-care (01) ==
PROVIDERS: Emergency Provider Emergency Medicine; PCP Physician Assistant; Visit Provider Emergency Medicine
DX: O20.9 Hemorrhage in early pregnancy, unspecified (principal); Z3A.18 18 weeks gestation of pregnancy; Z67.91 Unspecified blood type, Rh negative
CPT/HCPCS: 96372; 99282; J2790

== ENCOUNTER 2023-04-12 19:36 | Emergency (ER) | payer MEDICAID, SELFPAY ==
[2023-04-12 19:37] VITALS: BP 133/82; PULSE 101; RESP 18; TEMP 36.5; O2SAT 99; BMI 30.7
[2023-04-12] MEDS: 0.9% Normal Saline (1000mL) 1,000 ML 999 ML IV (20:00)
[2023-04-12 20:02] LABS: Absolute Lymphocyte Count 1.88 X10^3/uL (0.83-4.51); Absolute Neutrophil Count 7.5 X10^3/uL (2.0-7.7); Basophil# 0.02 X10^3/uL; Basophil% 0.2 % (0-1); Eosinophil# 0.03 X10^3/uL; Eosinophils% 0.3 % (0-5); Hematocrit 33.4 % (37-47); Hemoglobin 10.2 g/dL (12.0-15.0); Lymphocyte # 1.88 X10^3/ul (0.83-4.51); Lymphocyte % 18.6 % (19-41); Mean Corp Hgb Conc 30.5 g/dL (32-36); Mean Corpuscular Hgb 25.8 pg (27.0-32.0); Mean Corpuscular Volume 84.3 fL (81-99); Mean Platelet Vol. 9.7 fl (6.2-12.0); Monocyte# 0.63 X10^3/uL; Monocyte% 6.2 % (0-10); NRBC Flagged by Analyzer 0 % (0-5); Neutrophil # 7.49 X10^3/uL (2.7-7.7); Neutrophil % 74.3 % (47-70); Platelet Count 324 K/mm3 (150-450); RBC Distribution Width CV 12.7 % (11.6-14.6); RBC Distribution Width SD 38.8 fl (35.1-43.9); Red Blood Count 3.96 M/mm3 (4.2-5.4); White Blood Count 10.1 K/mm3 (4.4-11.0)
[2023-04-12 20:15] LABS: Anion Gap 6 (5-15); BUN 4 mg/dL (7-18); BUN/Creat Ratio 8.3 RATIO (10-20); Calcium,Total 8.1 mg/dL (8.5-10.1); Chloride 112 mmol/L (98-107); Creatinine, Serum 0.48 mg/dL (0.55-1.02); EST Glomerular Filtration Rate 164 mL/min (>60); Est Glom Filt Rate - Afr Amer 198 mL/min (>60); Estimated Creatinine Clearance 176.26 ml/min; Glucose 133 mg/dL (74-106); Potassium 3.7 mmol/L (3.5-5.1); Sodium Level 141 mmol/L (136-145)
[2023-04-12 20:50] VITALS: BP 117/79
--- OUTSIDE RECORDS SUMMARY | 2023-04-12 21:33 | XMS RPT_ITS | CCD ---
Author Name Unknown Address [address] [place] [address] Organization [facility] Care Team Providers Care Rigging Foreman Name Role Phone Jacklyn ZIMMERMAN, Shakeel Lamb Primary Care Provider [phone] BRENDA YOST Referring Unavailable JACKLYN, SHAKEEL A Primary Care Unavailable SAM YOSTI Referring Unavailable JACKLYN, SHAKEEL A Primary Care Unavailable Shakeel Villasenor MD Primary Care Provider [phone] ANGIE MORA Referring Unavailable JACKLYN, SHAKEEL A Primary Care Unavailable JACKLYN, SHAKEEL A Primary Care Unavailable SANDRA EDWARDS Attending Unavailable JACKLYN, SHAKEEL A Primary Care Unavailable JIMMIE JULES Attending Unavail able JACKLYN, SHAKEEL A Primary Care Unavailable CORETTA, KAYY Referring Unavailable JACKLYN, SHAKEEL A Primary Care Unavailable ANGIE MORA Referring Unavailable JACKLYN, SHAKEEL A Primary Care Unavailable CRISTY PLATT Referring Unavailable JACKLYN, SHAKEEL A Primary Care Unavailable RITIKA, XIAOXI Referring Unavailable RITIKA, XIAVIRGIEI Attending Unavailable JACKLYN, SHAKEEL A Primary Care Unavailable CORETTA, KAYY Referring Unavailable JACKLYN, SHAKEEL A Primary Care Unavailable RITIKA, XIAOXI Referring Unavailable RITIKA, XIAVIRGIEI Attending Unavailable JACKLYN, SHAKEEL A Primary Care Unavailable SAM YOSTI Attending Unavailable RITIKA, XIAOXI Referring Unavailable JACKLYN, SHAKEEL A Primary Care Unavailable RITIKA, XIAOXI Referring Unavailable JACKLYN, SHAKEEL A Primary Care Unavailable JACKLYN, SHAKEEL A Primary Care Unavailable HANNAH COTO Attending Unavailable JACKLYN, SHAKEEL A Primary Care Unavailable JACKLYN, SHAKEEL A Primary Care Unavailable HANNAH COTO Attending Unavailable RITIKA, XIAOXI Referring Unavailable JACKLYN, SHAKEEL A Primary Care Unavailable BRENDA YOST Referring Unavailable JACKLYN, SHAKEEL A Primary Care Unavailable BRENDA YOST Referring Unavailable JACKLYN, SHAKEEL A Primary Care Unavailable ANGIE MORA Attending Unavailable JACKLYN, SHAKEEL A Primary Care Unavailable BRENDA YOST Referring Unavailable KAREN OCHOA Attending Unavailable JACKLYN, SHAKEEL A Primary Care Unavailable CORETTAKAYY Beasley Attending Unavailable JACKLYN, SHAKEEL A Primary Care Unavailable JACKLYN, SHAKEEL A Primary Care Unavailable KALPANA JEAN BAPTISTE Attending Unavailable BRENDA YOST Referring Unavailable JACKLYN, SHAKEEL A Primary Care Unavailable JACKLYN, SHAKEEL A Primary Care Unavailable BULOW, CRISTY Attending Unavailable JACKLYN, SHAKEEL A Primary Care Unavailable BULOW, CRISTY Referring Unavailable JACKLYN, SHAKEEL A Primary Care Unavailable CORETTA, KAYY Attending Unavailable JACKLYN, SHAKEEL A Primary Care Unavailable CORETTA, KAYY Referring Unavailable JACKLYN, SHAKEEL A Primary Care Unavailable ANGIE MORA Referring Unavailable JACKLYN, SHAKEEL A Primary Care Unavailable ANGIE MORA Referring Unavailable JACKLYN, SHAKEEL A Primary Care Unavailable BRENDA YOST Attending Unavailable BRENDA YOST Admitting Unavailable JACKLYN, SHAKEEL A Primary Care Unavailable BULOW, CRISTY Referring Unavailable JACKLYN, SHAKEEL A Primary Care Unavailable BULOW, CRISTY Referring Unavailable JACKLYN, SHAKEEL A Primary Care Unavailable JACKLYN, SHAKEEL A Primary Care Unavailable BRENDA YOST Referring Unavailable JACKLYN, SHAKEEL A Primary Care Unavailable CHUY CHRISTENSEN Attending Unavailable JACKLYN, SHAKEEL A Primary Care Unavailable JACKLYN, SHAKEEL A Primary Care Unavailable KEITH ARRIAGA Referring Unavailable Allergies Allergy Classification Reported Allergen(s) Allergy Type Date of Onset Reaction(s) Facility (20 sources) cefdinir; Translations: [CEFDINIR] Drug Allergy [address] [facility] Work Phone: (20 sources) Morphine; Translations: [MORPHINE] Drug Allergy 4 Hives, Shortness of Breath [facility] Work Phone: (20 sources) peanut; Translations: [PEANUTS] Food Intolerance [address] [facility] Work Phone: Medications Completed/Discontinued Medications Medication Drug Class(es) Dates Sig (Normalized) Sig (Original) acetaminophen 325 mg oral tablet (20 sources) take 2 tablets by mouth every six hours as needed acetaminophen (TYLENOL) 325 mg tablet Take 650 mg by mouth every 6 hours as needed. 0 Active Problems Active Problems Problem Classification Problem Date Documented Da te Episodic/Chronic Contraceptive and procreative management (1 source) Contraception status; Translations: [Encounter for surveillance of vaginal ring hormonal contraceptive device] Episodic Headache; including migraine (1 source) Headache disorder; Translations: [Headache disorder] Onset: 04-12-2023 Episodic Immunizations and screening for infectious disease (2 sources) Patient encounter status; Translations: [Encounter for screening for human papillomavirus (HPV)] Episodic Miscellaneous mental health disorders (1 source) Psychological and behavioral factors associated with disorders or diseases classified elsewhere; Translations: [Psychological factors affecting morbid obesity (HCC)] Onset: 06-30-2022 Chronic Nausea and vomiting (1 source) Nausea and vomiting; Translations: [Nausea with vomiting, unspecified] Episodic Nervous system congenital anomalies (20 sources) Chiari malformation type II; 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] Onset: 07-10-2013 11-28-2019 Chronic Other complications of (1 source) High risk ; Translations: [Supervision of high risk , unspecified, second trimester] 01-29-2023 Episodic Other complications of (1 source) Supervision of high risk , unspecified, second trimester; Translations: [Supervision of high risk in second trimester] Onset: 03-11-2023 Episodic Other connective tissue disease (1 source) Cramp in lower limb; Translations: [Cramp and spasm] Episodic Other gastrointestinal disorders (1 source) Intolerance to food; Translations: [Malabsorption due to intolerance, not elsewhere classified] Chronic Other gastrointestinal disorders (1 source) Malabsorption due to intolerance, not elsewhere classified; Translations: [Food intolerance] Onset: 09-29-2022 Chronic Other gastrointestinal disorders (2 sources) History of bariatric surgical procedure; Translations: [Bariatric surgery status] Episodic Other gastrointestinal disorders (6 sources) History of bypass of stomach; Translations: [Bariatric surgery status] Onset: 01-01-2023 01-01-2023 Episodic Other liver diseases (1 source) Enzyme level - finding; Translations: [Transaminitis] Episodic Other nutritional; endocrine; and metabolic disorders (20 sources) Morbid obesity; Translations: [Morbid (severe) obesity due to excess calories] Onset: 03-22-2019 11-29-2020 Chronic Other nutritional; endocrine; and metabolic disorders (20 sources) Body mass index 40+ - severely obese; Translations: [Morbid (severe) obesity due to excess calories] Onset: 08-04-2022 Chronic Other nutritional; endocrine; and metabolic disorders (3 sources) Morbid (severe) obesity due to excess calories; Translations: [Obesity, Class III, BMI 40-49.9 (morbid obesity) (HCC)] Onset: 11-29-2020 Chronic Other nutritional; endocrine; and metabolic disorders (1 source) Body mass index (BMI) 40.0-44.9, adult; Translations: [Body mass index 40.0-44.9, adult (HCC)] Onset: 06-02-2022 Chronic Other screening for suspected conditions (not mental disorders or infectious disease) (1 source) Cancer cervix screening status; Translations: [Encounter for screening for malignant neoplasm of cervix] Episodic Other upper respiratory infections (3 sources) Chronic sinusitis; Translations: [Chronic sinusitis, unspecified] Onset: 11-02-2022 11-02-2022 Chronic Other upper respiratory infections (1 source) Streptococcal sore throat; Translations: [Streptococcal pharyngitis] 11-02-2022 Episodic Ovarian cyst (1 source) Cyst of left ovary; Translations: [Unspecified ovarian cyst, left side] 11-05-2022 Episodic Residual codes; unclassified (1 source) Gestation period, 10 weeks; Translations: [10 weeks gestation of ] 01-01-2023 Episodic Residual codes; unclassified (1 source) Gestation period, 14 weeks; Translations: [14 weeks gestation of ] 01-29-2023 Episodic Residual codes; unclassified (1 source) 14 weeks gestation of ; Translations: [14 weeks gestation of ] Onset: 03-11-2023 Episodic Residual codes; unclassified (1 source) 10 weeks gestation of ; Translations: [10 weeks gestation of ] Onset: 01-20-2023 Episodic Syncope (1 source) Syncope and collapse; Translations: [Syncope, unspecified syncope type] Onset: 04-12-2023 Episodic Unclassified (1 source) NO SHOW 09-28-2022 Unclassified (1 source) Transaminitis; Translations: [Transaminitis] Onset: 09-29-2022 Past or Other Problems Problem Classification Problem Date Documented Da te Episodic/Chronic Abdominal pain (5 sources) Left upper quadrant pain; Translations: [Left upper quadrant pain] Onset: 08-26-2022 Episodic Chronic obstructive pulmonary disease and bronchiectasis (1 source) Bronchitis, not specified as acute or chronic; Translations: [Sinobronchitis] Onset: 11-02-2022 Episodic Diabetes or abnormal glucose tolerance complicating ; childbirth; or the puerperium (20 sources) History of gestational diabetes mellitus; Translations: [Personal history of gestational diabetes] Onset: 05-16-2020 05-16-2020 Episodic Hemorrhage during ; abruptio placenta; placenta previa (1 source) Threatened ; Translations: [Threatened ] Onset: 11-24-2022 Episodic Mycoses (20 sources) Onychomycosis; Translations: [Tinea unguium] Onset: 11-29-2020 11-29-2020 Episodic Nonmalignant breast conditions (3 sources) Cyst of left breast; Translations: [Solitary cyst of left breast] Onset: 11-04-2022 10-16-2022 Episodic Other complications of (3 sources) with inconclusive viability, not applicable or unspecified; Translations: [ with inconclusive viability] Onset: 12-03-2022 12-01-2022 Episodic Other complications of (2 sources) RhD negative; Translations: [Other specified related conditions, unspecified trimester] Onset: 01-17-2018 01-21-2023 Episodic Other connective tissue disease (1 source) Cramp and spasm; Translations: [Leg cramping] Onset: 08-26-2022 Episodic Other gastrointestinal disorders (1 source) Bariatric surgery status; Translations: [History of gastric bypass] Onset: 01-01-2023 Episodic Other nervous system disorders (1 source) Other acute postprocedural pain; Translations: [Post-op pain] Onset: 08-20-2022 Episodic Other and delivery including normal (2 sources) with uncertain dates; Translations: [Encounter for supervision of normal , unspecified, first trimester] Onset: 01-01-2023 01-01-2023 Episodic Residual codes; unclassified (20 sources) History of gestational hypertension; Translations: [Personal history of other complications of , childbirth and the puerperium] Onset: 03-16-2019 11-29-2020 Episodic Viral infection (20 sources) Viral disease; Translations: [Viral infection, unspecified] Onset: 03-26-2021 Episodic Results Test Name Value Interpretation Reference Range Facil ity Vital Signs Date Time Vital Sign Value Performing Clinician Brien reagan 01-29-2023 11:01-0500 Body weight 73.03 kg Angie Mora MD Work Phone: [facility] 01-29-2023 11:01-0500 Diastolic blood pressure 74 mm[Hg] Angie Mora MD Work Phone: [facility] 01-29-2023 11:01-0500 Systolic blood pressure 118 mm[Hg] Angie Mora MD Work Phone: [facility] 01-01-2023 10:59-0400 Body height 160 cm Kayy Coretta [employer]CR[employer] Work Phone: [facility] 01-01-2023 10:59-0400 Body weight 76.2 kg Kayy Cleburne [employer]CR[employer]E M[employer] Work Phone: [facility] 01-01-2023 10:59-0400 Diastolic blood pressure 74 mm[Hg] Kayy Cleburne [employer]CR[employer]E [employer] Work Phone: [facility] 01-01-2023 10:59-0400 Systolic blood pressure 118 mm[Hg] Kayy Coretta [employer]CR[employer] Work Phone: [facility] 12-17-2022 08:43-0400 Body temperature 97.59 [degF] Steffanie Miller [employer]CR[employer]E [employer] Work Phone: [facility] 12-17-2022 08:43-0400 Body weight 76.39 kg Steffanie Miller [employer]CR[employer]E [employer] Work Phone: [facility] 12-17-2022 08:43-0400 Diastolic blood pressure 96 mm[Hg] Steffanie Miller [employer]CR[employer]E [employer] Work Phone: [facility] 12-17-2022 08:43-0400 Heart rate 73 /min Steffanie Miller [employer]CR[employer] Work Phone: [facility] 12-17-2022 08:43-0400 Respiratory rate 20 /min Steffanielizzeth Miller [employer]CR[employer] Work Phone: [facility] 12-17-2022 08:43-0400 SaO2% (BldA) [Mass fraction] 100 % Steffanie Miller [employer]CR[employer]E [employer] Work Phone: [facility] 12-17-2022 08:43-0400 Systolic blood pressure 120 mm[Hg] Steffanie Miller [employer]CR[employer]E [employer] Work Phone: [facility] 11-02-2022 12:25-0400 Body height 160 cm Rameshrosario Chagkevin [employer]CR[employer] Work Phone: [facility] 11-02-2022 12:25-0400 Body temperature 97.59 [degF] Jennalee Chagin [employer]CR[employer]E [employer] Work Phone: [facility] 11-02-2022 12:25-0400 Body weight 83.42 kg Jenpatrica Chagin [employer]CR[employer]E M[employer] Work Phone: [facility] 11-02-2022 12:25-0400 Diastolic blood pressure 86 mm[Hg] Jennalee Chagin [employer]CR[employer]E M[employer] Work Phone: [facility] 11-02-2022 12:25-0400 Heart rate 86 /min Jennalee Chagin [employer]CR[employer]E M[employer] Work Phone: [facility] 11-02-2022 12:25-0400 Respiratory rate 18 /min Jennalee Chagin [employer]CR[employer]E M[employer] Work Phone: [facility] 11-02-2022 12:25-0400 SaO2% (BldA) [Mass fraction] 97 % Jennalee Chagin [employer]CR[employer]E M[employer] Work Phone: [facility] 11-02-2022 12:25-0400 Systolic blood pressure 126 mm[Hg] Jennalee Chagin [employer]CR[employer]E M[employer] Work Phone: [facility] 10-16-2022 12:56-0400 Body weight 84.01 kg Kayy Coretta [employer]CR[employer]E [employer] Work Phone: [facility] 10-16-2022 12:56-0400 Diastolic blood pressure 82 mm[Hg] Kayy Coretta [employer]CR[employer]E [employer] Work Phone: [facility] 10-16-2022 12:56-0400 Systolic blood pressure 112 mm[Hg] Kayy Coretta [employer]CR[employer]E [employer] Work Phone: [facility] 08-11-2022 13:11-0400 Body weight 101.[address] Work Phone: [facility] 05-28-2022 07:57-0400 Body weight 110 kg Cristy Bulow [employer]CR[employer]E M[employer] Work Phone: [facility] 05-28-2022 07:57-0400 Diastolic blood pressure 74 mm[Hg] Cristy Bulow [employer]CR[employer]E M[employer] Work Phone: [facility] 05-28-2022 07:57-0400 Heart rate 95 /min Cristy Bulow [employer]CR[employer]E M[employer] Work Phone: [facility] 05-28-2022 07:57-0400 Respiratory rate 18 /min Cristy Bulow [employer]CR[employer]E M[employer] Work Phone: [facility] 05-28-2022 07:57-0400 Systolic blood pressure 126 mm[Hg] Cristy Bulow [employer]CR[employer]E M[employer] Work Phone: [facility] 10-03-2021 09:59-0400 Body height 159.2 cm Brenda Yost MD Work Phone: [facility] 10-03-2021 09:59-0400 Body weight 105.78 kg Brenda Yost MD Work Phone: [facility] 10-03-2021 09:59-0400 Diastolic blood pressure 82 mm[Hg] Brenda Yost MD Work Phone: [facility] 10-03-2021 09:59-0400 Heart rate 85 /min Brenda Yost MD Work Phone: [facility] 10-03-2021 09:59-0400 Systolic blood pressure 120 mm[Hg] Brenda Yost MD Work Phone: [facility] 08-22-2021 14:51-0400 Body height 161.3 cm Kayy Cleburne [employer]CRETE M[employer] Work Phone: [facility] 08-22-2021 14:51-0400 Body weight 101.42 kg Kayy Coretta [employer]CR[employer]E M[employer] Work Phone: [facility] 08-22-2021 14:51-0400 Diastolic blood pressure 70 mm[Hg] Kayy Coretta [employer]CR[employer]E [employer] Work Phone: [facility] 08-22-2021 14:51-0400 Systolic blood pressure 116 mm[Hg] Kayy Cleburne [employer]CR[employer]E M[employer] Work Phone: [facility] 07-22-2021 11:04-0400 Body temperature 97.5 [degF] Kimi Jeffrey [employer]CR[employer]E [employer] Work Phone: [facility] 07-22-2021 11:04-0400 Body weight 103.42 kg Kimi Jeffrey [employer]CR[employer]E [employer] Work Phone: [facility] 07-22-2021 11:04-0400 Diastolic blood pressure 74 mm[Hg] Kimi Jeffrey [employer]CR[employer]E M[employer] Work Phone: [facility] 07-22-2021 11:04-0400 Heart rate 98 /min Kimi Jeffrey [employer]CR[employer]E [employer] Work Phone: [facility] 07-22-2021 11:04-0400 Respiratory rate 16 /min Kimi Jeffrey [employer]CR[employer]E M[employer] Work Phone: [facility] 07-22-2021 11:04-0400 SaO2% (BldA) [Mass fraction] 99 % Kimi Jeffrey [employer]CR[employer]E M[employer] Work Phone: [facility] 07-22-2021 11:04-0400 Systolic blood pressure 122 mm[Hg] Kimi Jeffrey [employer]CR[employer]E M[employer] Work Phone: [facility] Encounters Encounter Date Encounter Type Care Provider Facility Start: 04-12-2023 End: 04-12-2023 Emergency department patient visit CHUY CHRISTENSEN Facility:[facility] Start: 04-07-2023 End: 04-07-2023 ambulatory SHAKEEL VILLASENOR Facility:[facility] Start: 03-31-2023 End: 03-31-2023 ambulatory SHAKEEL VILLASENOR Facility:[facility] Start: 03-11-2023 End: 03-11-2023 ambulatory ANGIE MORA Facility:[facility] Start: 01-29-2023 End: 01-29-2023 ambulatory ANGIE MORA Facility:[facility] Start: 01-29-2023 End: 01-29-2023 Patient encounter procedure Angie Mora MD Work Phone: OB/Gynecology Procedures Date Procedure Procedure Detail Performing Clinician Start: 01-20-2023 Antibody screen ANGIE MORA Plan of Treatment Date Care Activity Detail Author Start: 08-14-[address] [facility] Start: 08-22-2024 [address] [facility] Start: 01-29-2023 End: 01-30-2024 OBSTETRIC ULTRASOUND [facility] OBSTETRIC ULTRASOUND [facility] Anc Imaging Routine History of gastric bypass 14 weeks gestation of Supervision of high risk in second trimester Expected: 01/29/2023, Expires: 01/30/2024 [facility] Work Phone: Immunizations Immunization Date Immunization Notes Care Provider Fa venuty 08-15-2019 RHO(D) immune globul in- IV or IM Kimi Jeffrey [employer] Work Phone: [facility] 08-15-2019 tetanus toxoid, redu david diphtheria toxoid, and acellular pertussis vaccine, adsorbed Kimi Jeffrey [employer]CR[employer]E [employer] Work Phone: [facility] 05-22-2019 RHO(D) immune globul in- IV or IM Kimi Jeffrey [employer]CR[employer]E M[employer] Work Phone: [facility] Work Phone: 06-29-2018 tetanus toxoid, redu david diphtheria toxoid, and acellular pertussis vaccine, adsorbed Kimi Jeffrey CONCR[employer]E M[employer]ER.[facility] Work Phone: [facility] 05-23-2018 RHO(D) immune globul in- IV or IM Kimi Jeffrey [employer]CR[employer]E M[employer].[facility] Work Phone: [facility] Work Phone: 03-25-2018 influenza, injectabl e, quadrivalent, contains preservative Kimi Jeffrey [employer]CR[employer]E M[employer].[facility] Work Phone: [facility] 03-25-2018 influenza virus vaccine, unspecified formulation Angie Mora MD Work Phone: [facility] 09-05-2012 human papilloma viru s vaccine, quadrivalent Kimi Jeffrey [employer]CR[employer].[facility] Work Phone: [facility] 03-30-2012 human papilloma viru s vaccine, quadrivalent Kimi Jeffrey [employer]CR[employer]E M[employer].[facility] Work Phone: [facility] 12-01-2011 human papilloma viru s vaccine, quadrivalent Kimi Jeffrey [employer]CR[employer]E M[employer].[facility] Work Phone: [facility] 12-01-2011 tetanus toxoid, redu david diphtheria toxoid, and acellular pertussis vaccine, adsorbed Kimi Jeffrey [employer]CR[employer]E M[employer].[facility] Work Phone: [facility] 03-28-2010 Meningococcal, MCV4, unspecified conjugate formulation(groups A, C, Y and W-135) Kimi Jeffrey [employer]CR[employer]E M[employer].[facility] Work Phone: [facility] Work Phone: 12-13-2008 diphtheria and tetan us toxoids, adsorbed for pediatric use Kimi Jeffrey [employer]CR[employer]E M[employer].[facility] Work Phone: [facility] Work Phone: 10-08-2000 diphtheria, tetanus toxoids and acellular pertussis vaccine Kimi Jeffrey [employer]CR[employer]E [employer].[facility] Work Phone: [facility] Work Phone: 10-08-2000 measles, mumps and rubella virus vaccine Kimi Rachele [employer]CR[employer].[facility] Work Phone: [facility] Work Phone: 10-08-2000 poliovirus vaccine, inactivated Kimifloyd Jeffrey [employer] Work Phone: [facility] Work Phone: 10-08-2000 varicella virus vaccine Marilin ica Rachele [employer]CR[employer].[facility] Work Phone: [facility] Work Phone: 01-13-2000 diphtheria, tetanus toxoids and acellular pertussis vaccine Kimi Rachele [employer]CR[employer].[facility] Work Phone: [facility] Work Phone: 09-26-1997 diphtheria, tetanus toxoids and acellular pertussis vaccine Kimi Rachele [employer]CR[employer].[facility] Work Phone: [facility] Work Phone: 09-26-1997 haemophilus influenz ae type b vaccine, HbOC conjugate Kimifloyd Jeffrey [employer]CR[employer].[facility] Work Phone: [facility] Work Phone: 09-26-1997 measles, mumps and rubella virus vaccine Kimi Rachele [employer]CR[employer].[facility] Work Phone: [facility] Work Phone: 1997 Chicken Pox (disease) Nasrin a Rachele [employer] Work Phone: [facility] Work Phone: 01-03-1997 trivalent poliovirus vaccine, live, oral Kimi Jeffrey [employer].[facility] Work Phone: [facility] Work Phone: 01-01-1997 hepatitis B vaccine, pediatric or pediatric/adolescent dosage Kimi Jeffrey [employer] Work Phone: [facility] Work Phone: 1996 DTaP-Haemophilus influenzae type b conjugate vaccine Kimifloyd Jeffrey [employer] Work Phone: [facility] Work Phone: 1996 trivalent poliovirus vaccine, live, oral Kimi Jeffrey [employer] Work Phone: [facility] Work Phone: 1996 DTaP-Haemophilus influenzae type b conjugate vaccine Kimi Jeffrey [employer] Work Phone: [facility] Work Phone: 1996 trivalent poliovirus vaccine, live, oral Kimi Jeffrey [employer]CR[employer].[facility] Work Phone: [facility] Work Phone: 1996 hepatitis B vaccine, pediatric or pediatric/adolescent dosage Kimi Jeffrey [employer] Work Phone: [facility] Work Phone: 1996 hepatitis B vaccine, pediatric or pediatric/adolescent dosage Kimi Jeffrey [employer]CR[employer].[facility] Work Phone: [facility] Work Phone: Payers Date Payer Category Payer Medicaid [phone]. [id number] 2022 Medicaid [id number] 2022 Medicaid [id number] 2022 Medicaid [id number] 2020 Medicaid [place] [employer] [employer] MEDICAID [id number] 2020-Present [phone] [address] [place] [address] Medicaid [id number] 2020 Unknown [facility] IMS MGMT [id number] 2020-Present [phone] [address] [address] [place] [address] [id number] Social History Date Type Detail Facility Start: 05-15-2013 End: 05-11-2022 Tobacco smoking status NHIS Never smoked tobacco [facility] Work Phone: Start: 05-15-2013 End: 05-11-2022 Tobacco use and exposure Smokeless tobacco non-user [facility] Work Phone: Start: 07-22-2021 End: 08-04-2022 Alcohol intake Current non-drinker of alcohol (finding) [facility] Start: 11-28-2019 History SDOH Financial 5 [facility] Start: 11-28-2019 History SDOH Food Worry 1 [facility] Start: 11-28-2019 History SDOH Transpo rt Med 2 [facility] Start: 03-16-[address] [facility] Start: 1995 Sex Assigned At Not on file C [facility] Start: 07-12-2021 End: 07-22-2021 Exposure to SARS-CoV-2 (event) Yes [facility] Work Phone: Start: 08-04-2021 End: 10-03-2021 Exposure to SARS-CoV-2 (event) Not sure [facility] Work Phone: Start: 10-31-2019 End: 08-04-2022 History of Social function [facility] Start: 10-31-2019 End: 08-04-[address] [facility] How hard is it for y ou to pay for the very basics like food, housing, medical care, and heating Not hard at all [facility] (I/We) worried sarah er (my/our) food would run out before (I/we) got money to buy more. Never true [facility] Start: 11-03-2022 [facility] Goals Date Patient Goal Desired Activity /State Personal health goal Clinical Notes 06-29-2019 to 04-07-2023 Quick Notes - Angie Mora MD - 01/29/2023 11:40 AM ESTPatient InstructionsTelephone Encounter - Raquel Brown RN - 01/05/2023 11:13 AM EDTPatient InstructionsPatient Instructions Note Date & Type Note Facility 04-07-2023 Note HNO ID: [id number] Author: ARMANDO WASHINGTON APRN.AIRCRAFT ENGINE [employer]CH[employer]IC [employer] Service: ? Author Type: Nurse Practitioner Type: Progress Notes Filed: 04/07/2023 17:10 Note Text: This note was created using NoteWriter. Subjective Laina De León is a 27 year old female. HPI by patient: Laina is a 27 year old presenting to the office with the complaint of flu like symptoms Started approximately Wednesday Associated symptoms include dizzy, SOB, lightheaded, cold sweats, runny nose, body aches, chills, bilateral ear pain Denies any other concerns Covid Immunization Dates Overdue - Covid-19 Vaccine ( season) Overdue since 11/13/2022 05/08/2021 Imm Admin: COVID-19 original vaccine, full dose, monovalent (MODERNA) 07/18/2020 Imm Admin: COVID-19 original vaccine, full dose, monovalent (MODERNA) 06/20/2020 Imm Admin: COVID-19 original vaccine, full dose, monovalent (MODERNA) Sick contacts: no Smoking history/second hand smoke: no OTC tylenol No antibiotic use in the last 60 days. ALLERGIES Cefdinir Vomiting Morphine Hives, Shortness of Breath Comment:given medication at [facility] and reacted Peanuts Swelling Comment:redness Family History Reviewed Including Cardiac Diseases, Psychiatric Diseases, AND Substance Abuse Problem: No Known Problems Relation: Father Age of Onset: (Not Specified) Problem: No Known Problems Relation: Mother Age of Onset: (Not Specified) Problem: No Known Problems Relation: Sister Age of Onset: (Not Specified) Problem: No Known Problems Relation: Sister Age of Onset: (Not Specified) Problem: No Known Problems Relation: Maternal Grandfather Age of Onset: (Not Specified) Problem: No Known Problems Relation: Maternal Grandmother Age of Onset: (Not Specified) Problem: Heart Relation: Paternal Grandfather Age of Onset: (Not Specified) Problem: Hypertension Relation: Paternal Grandmother Age of Onset: (Not Specified) Problem: No Known Problems Relation: Daughter Age of Onset: (Not Specified) Problem: Heart Relation: Other Age of Onset: (Not Specified) Comment: great g-father/Paternal Problem: Hypertension Relation: Other Age of Onset: (Not Specified) Comment: mgm/paternal side Problem: Thyroid Relation: Other Age of Onset: (Not Specified) Comment: MGGMo Problem: Anesthesia Problems Relation: No Family History Age of Onset: (Not Specified) Social History Tobacco Use Smoking status: Never Smokeless tobacco: Never Vaping Use Vaping Use: Never used Alcohol use: No Drug use: No Review of Systems Constitutional: Positive for chills and fatigue. Negative for fever. HENT: Positive for congestion, ear pain, postnasal drip, rhinorrhea and sore throat. Respiratory: Positive for cough. Cardiovascular: Negative for chest pain. Musculoskeletal: Positive for myalgias. Allergic/Immunologic: Negative for immunocompromised state. Neurological: Positive for dizziness, light-headedness and headaches. Hematological: Negative for adenopathy. Objective BP 97/57 (BP Site: Right Arm, BP Position: Sitting, BP Cuff Size: Regular Adult) Pulse 118 Temp 37.5 ?C (99.5 ?F) (Left Tympanic) Resp 18 Ht 160 cm (5' 3 ) Wt 77.2 kg (170 lb 1.4 oz) LMP 10/20/2022 (Exact Date) SpO2 99% BMI 30.13 kg/m? Physical Exam Vitals and nursing note reviewed. HENT: Right Ear: Tympanic membrane and ear canal normal. Left Ear: Tympanic membrane and ear canal normal. Nose: Congestion and rhinorrhea present. Mouth/Throat: Pharynx: Uvula midline. Posterior oropharyngeal erythema present. No oropharyngeal exudate. Cardiovascular: Rate and Rhythm: Normal rate and regular rhythm. Heart sounds: Normal heart sounds. Pulmonary: Effort: Pulmonary effort is normal. No respiratory distress. Breath sounds: Normal breath sounds. No stridor. No wheezing, rhonchi or rales. Chest: Chest wall: No tenderness. Lymphadenopathy: Cervical: No cervical adenopathy. Skin: General: Skin is warm and dry. Neurological: Mental Status: She is alert and oriented to person, place, and time. Assessment and Plan ASSESSMENT/PLAN: 1. Flu-like symptoms - ICD9: 780.99, ICD10: R68.89 - Supportive care recs provided - COVID AND INFLUENZA A/B AND RSV NAAT, ROUTINE - OXYMETAZOLINE 0.05 % NASAL SPRAY - GUAIFENESIN ER 600 MG TABLET, EXTENDED RELEASE 12 HR Armando Washington APRN.CNP Medical Decision Making: Problems: Moderate: New problem with uncertain prognosis Data: Unique test(s) ordered: 3+ Risk: Moderate: Drug management Medical Decision Making Level: 4 - Moderate [facility] 01-29-2023 Miscellaneous Notes RR- VB No. LOF No. CTXS No. Movement: absent. Other c/o: No. Medication list reviewed. Physical Exam See Flow Sheet Abd: soft, nontender, gravid Ext: edema: no A/P 14w3d Estimated Date of Delivery: 07/27/23 Labs: declines aneuploidy screeing f/u in 4-5 weeks for anatomy US cont. PNV declines flu vaccine today Angie Mora M.D. documented in this encounter [facility] 01-29-2023 Instructions Marly Hernadez Ma - 01/29/2023 10:56 AM EST SEQUENTIAL SCREENINGS The [facility] offers sequential screenings for women who are interested in screenings for chromosomal abnormalities and certain defects during a . The sequential screen combines ultrasound and blood tests to determine the risk of chromosomal abnormalities, including Down's Syndrome (Trisomy 21) and Trisomy 18, as well as open neural tube defects including spina bifida. Ultrasound examination is performed between 11 weeks and 13 weeks gestational age. Blood tests are drawn after the ultrasound and again later in the between 15 and 21 weeks gestational age. Please let your physician know if you are interested in this testing. It will require an appointment with our dairy laboratory technician. This is not an ultrasound performed by a physician in our office during a routine visit. SIGNS AND SYMPTOMS OF LABOR 1. Contractions every 10 minutes or more often 2. Clear, pink, or brownish fluid (water) leaking from vagina 3. Feeling that baby is pushing down, pressure 4. Low, dull backache 5. Cramps that feel like a period 6. Cramps with or without diarrhea If you notice any of the above symptoms, contact our office at [phone] and ask to speak with a nurse. After hours, you can call doctors registry at [phone] OR call [facility] at [phone] and ask to have the doctor confidential investigator paged. If you consider this an emergency, dial [phone] or go to your nearest emergency department. NEED HELP? Are you dealing with a violent or abusive relationship? Are you a victim of rape or sexual assult? Call [facility]) 24 hour Crisis Hotline: 630.729.5307 or 793-981-9623. MANUAL Your Guide to a Healthy manual is now on-line. Visit [email or web address] to download your free copy documented in this encounter [facility] 01-05-2023 Miscellaneous Notes 1st risk assessment form submitted 01/05/2023 11w today documented in this encounter [facility] 01-01-2023 Note HNO ID: [id number] Author: Kayy Longo APRN.AIRCRAFT ENGINE MECHANIC [employer] Service: ? Author Type: Nurse Practitioner Type: Progress Notes Filed: 01/01/2023 12:00 PM Note Text: INITIAL OB ASSESSMENT OB Provider: Kalpana Laguerre CNM HPI: Laina is a 27 year old White here to establish Obstetrical Care. Patient's last menstrual period was 10/20/2022 (exact date). from OB Dating Form. Cycles regular was unplanned but accepted Weight prior to bypass 210 lbs, 2 weeks prior to that 250 lbs Complaints: Nausea OB History T2 L2 SAB0 IAB0 Ectopic0 Multiple0 Live Births2 Previous history: Prior : never History of 4th degree laceration: No History of shoulder dystocia: No History of Hypertensive disorders including pre-eclampsia, chronic hypertension or gestational hypertension: No History of gestational diabetes: Yes Patient's Risk Screening for delivery: Have you had a prior cash between 20w and 36w6d?: No MEDICAL/PSYCHOSOCIAL HISTORY: History of hemorrhage or bleeding concerns: No Thyroid Disease: No History of chronic hypertension: No History of pre-existing diabetes: No ABO/RH(D) Date Value Ref Range Status 05/22/2019 A NEGATIVE Final BMI 29.76 kg/(m2) History of abnormal pap: No Prior treatment for cervical dysplasia: none. History of STDs: None Tobacco use: No Caffeine use: No Drug use: No Alcohol use: No Multivitamin with Folic acid: Yes Judaism or heritage: No Would refuse blood transfusion if medically necessary: No Are you currently employed? Yes, Occupation: [employer] Do you have any history of depression, anxiety, PTSD, eating disorders or other mood problems: No Do you have any safety concerns or history of traumatic events that you would like to discuss with your provider: No SDOH Screening: How often does this describe you? I don't have enough money to pay my bills: Never Within the past 12 months, have you worried that your food would run out before you had money to buy more: Never In the past 12 months, has lack of reliable transportation kept you from going to medical appointments or work, or from keeping things needed for daily living: Never In the past 12 months, have you had any concerns about having a place to live, or about the condition or quality of your housing: Never Are there any cultural or spiritual needs we should be aware of: No Depression/Anxiety Screening: denies symptoms of depression. OB Depression and Anxiety Screening- This Encounter (since 12/31/2022) Over the past 2 weeks have you felt down, depressed, or hopeless? Negative Over the past two weeks, have you felt little interest or pleasure in doing things?? Negative Feeling nervous, anxious or on edge 0-Not at all Not being able to stop or control worrying 0-Not al all Anxiety Pre-Screening Total (If >/= 3 additional questions will be reviewed) 0 Genetic Screening: Partner present: No Patient verbalized knowledge of partner family health history: No Do you or your partner have any personal or family history of defects not previously discussed: No Do you have history of a complicated by anomaly, genetic condition, or demise: No ACOG Recommended Screening Screening for early gestational diabetes testing: Criteria for early testing requires elevated BMI plus one other risk factor: BMI 29.76 kg/(m2) (risk factor if > than 25 or 23 in Americans) Additional risk factors: Previous gestational diabetes mellitus and recent bariatric surgery 08/20/22 She does meet ACOG criteria for early gestational DM screening. Screening for low dose aspirin use for the prevention of pre-eclampsia: Low dose aspirin should be considered if the patient has one high or two moderate risk factors: High risk factors: None Moderate risk ractors: Family history of pre-eclampsia (mother or sister) She does not meet criteria for low dose ASA Marital Status:Single Partner: Name: Abe Age: 29 Occupation: [employer] Gender: Male History of STDs: None PAST MEDICAL HISTORY Diagnosis Date Anemia complicating , first trimester 03/24/2019 Asthma as a child Childhood asthma without complication 01/03/2018 01/03/2018 Not currently using Albuterol inhaler. Continue to monitor. No Hemabate. SW Concussion 2009 COVID-19 virus infection 03/26/202103/2021 Diet controlled gestational diabetes mellitus (GDM) in third trimester 08/16/2019 Gestational hypertension Hx of gestational diabetes mellitus, not currently 05/16/2020 Mononucleosis NEGATIVE MEDICAL HISTORY normal color vision PMH - PAST MEDICAL HISTORY OF slip disc Spondylolysis of lumbar region 06/25/2011 PAST SURGICAL HISTORY Procedure Laterality Date GASTRIC BYPASS HX 08/20/2022 LAPAROSCOPY SURG CHOLECYSTECTOMY 08/30/2018 Cholecystectomy, lap Current Outpatie (more content not included)... [facility] 01-01-2023 Instructions Erika Calderón Ma - 01/01/2023 11:05 AM EDT Please select the following link to access the [facility] Your Guide to a Healthy . [email or web address] documented in this encounter [facility] 01-01-2023 History of Present illness Narrative INITIAL OB ASSESSMENT OB Provider: Kalpana Laguerre CNM HPI: Laina is a 27 year old White here to establish Obstetrical Care. Patient's last menstrual period was 10/20/2022 (exact date). from OB Dating Form. Cycles regular was unplanned but accepted Weight prior to bypass 210 lbs, 2 weeks prior to that 250 lbs Complaints: Nausea OB History T2 L2 SAB0 IAB0 Ectopic0 Multiple0 Live Births2 Previous history: Prior : never History of 4th degree laceration: No History of shoulder dystocia: No History of Hypertensive disorders including pre-eclampsia, chronic hypertension or gestational hypertension: No History of gestational diabetes: Yes Patient's Risk Screening for delivery: Have you had a prior cash between 20w and 36w6d?: No MEDICAL/PSYCHOSOCIAL HISTORY: History of hemorrhage or bleeding concerns: No Thyroid Disease: No History of chronic hypertension: No History of pre-existing diabetes: No ABO/RH(D) Date Value Ref Range Status 05/22/2019 A NEGATIVE Final BMI 29.76 kg/(m^2) History of abnormal pap: No Prior treatment for cervical dysplasia: none. History of STDs: None Tobacco use: No Caffeine use: No Drug use: No Alcohol use: No Multivitamin with Folic acid: Yes Judaism or heritage: No Would refuse blood transfusion if medically necessary: No Are you currently employed? Yes, Occupation: [employer] Do you have any history of depression, anxiety, PTSD, eating disorders or other mood problems: No Do you have any safety concerns or history of traumatic events that you would like to discuss with your provider: No SDOH Screening: How often does this describe you? I don't have enough money to pay my bills: Never Within the past 12 months, have you worried that your food would run out before you had money to buy more: Never In the past 12 months, has lack of reliable transportation kept you from going to medical appointments or work, or from keeping things needed for daily living: Never In the past 12 months, have you had any concerns about having a place to live, or about the condition or quality of your housing: Never Are there any cultural or spiritual needs we should be aware of: No Depression/Anxiety Screening: denies symptoms of depression. OB Depression and Anxiety Screening- This Encounter (since 12/31/2022) Over the past 2 weeks have you felt down, depressed, or hopeless? Negative Over the past two weeks, have you felt little interest or pleasure in doing things? Negative Feeling nervous, anxious or on edge 0-Not at all Not being able to stop or control worrying 0-Not al all Anxiety Pre-Screening Total (If >/= 3 additional questions will be reviewed) 0 Genetic Screening: Partner present: No Patient verbalized knowledge of partner family health history: No Do you or your partner have any personal or family history of defects not previously discussed: No Do you have history of a complicated by anomaly, genetic condition, or demise: No ACOG Recommended Screening Screening for early gestational diabetes testing: Criteria for early testing requires elevated BMI plus one other risk factor: BMI 29.76 kg/(m^2) (risk factor if > than 25 or 23 in Americans) Additional risk factors: Previous gestational diabetes mellitus and recent bariatric surgery 08/20/22 She does meet ACOG criteria for early gestational DM screening. Screening for low dose aspirin use for the prevention of pre-eclampsia: Low dose aspirin should be considered if the patient has one high or two moderate risk factors: High risk factors: None Moderate risk ractors: Family history of pre-eclampsia (mother or sister) She does not meet criteria for low dose ASA Marital Status:Single Partner: Name: Abe Age: 29 Occupation: [employer] Gender: Male History of STDs: None PAST MEDICAL HISTORY Diagnosis Date Anemia complicating , first trimester 03/24/2019 Asthma as a child Childhood asthma without complication 01/03/2018 01/03/2018 Not currently using Albuterol inhaler. Continue to monitor. No Hemabate. SW Concussion 2009 COVID-19 virus infection 03/26/202103/2021 Diet controlled gestational diabetes mellitus (GDM) in third trimester 08/16/2019 Gestational hypertension Hx of gestational diabetes mellitus, not currently 05/16/2020 Mononucleosis NEGATIVE MEDICAL HISTORY normal color vision PMH - PAST MEDICAL HISTORY OF slip disc Spondylolysis of lumbar region 06/25/2011 PAST SURGICAL HISTORY Procedure Laterality Date GASTRIC BYPASS HX 08/20/2022 LAPAROSCOPY SURG CHOLECYSTECTOMY 08/30/2018 Cholecystectomy, lap Current Outpatient Medications Medication Sig Dispense Refill vit/iron fum/folic ac (-FOLIC ACID ORAL) Take by mouth. albuterol HFA (PROVENTIL HFA, VENTOLIN HFA) 90 mcg/actuation inhaler Inhale 2 Puffs as instructed every 4 hours as needed for wheezing/shortness of breath. (Patient not taking: Reported on 01/01/2023) [address] (PROTONIX) 40 mg tablet Take 1 tablet by mouth DAILY (6 AM). (Patient not taking: Reported on 01/01/2023) 90 tablet 3 mv,calcium,min/iron/folic/vitK (ONE-A-DAY WOMEN'S COMPLETE ORAL) Take by mouth once daily. (Patient not taking: Reported on 01/01/2023) acetaminophen (TYLENOL) 325 mg tablet Take 650 mg by mouth every 6 hours as needed. No current facility-administered medications for this visit. Allergies As of Date: 01/01/2023 Allergen Noted Reaction CEFDINIR 04/11/2012 Vomiting MORPHINE 05/15/2013 Hives and Shortness of Breath PEANUTS 12/18/2014 Swelling Fully Assessed 01/01/2023 Does patient have penicillin allergy: No REVIEW OF SYSTEMS: GENERAL: Negative for: Fever or Chills HEENT: Negative for: Headache, Impaired Vision, Ringing in Ears, Nosebleeds NECK: Negative for: Swelling, Pain, Stiffness RESPIRATORY: Negative for: Cough, Shortness of breath, Wheezing GASTROINTESTINAL: nausea MUSCULOSKELETAL: Negative for: Muscle or joint pain, stiffness, Joint swelling NEUROLOGIC/PSYCHIATRIC: Negative for: Weakness, Paralysis, Numbness, Tingling, Tremor, Anxiety, Depression, Memory loss SKIN: Negative for: Rash, Itching GENITOURINARY: Negative for: vaginal itching, vaginal discharge, hematuria or dysuria PHYSICAL EXAM: BP 118/74 Ht 5' 3 (1.60m) Wt 168 lb (76.2kg) LMP 10/20/2022 BMI 29.77 kg/(m^2). GENERAL: pleasant in no apparent distress DERMATOLOGY: Normal, without lesions, non-icteric, and non-hirsute NECK: Supple, full range of motion, no adenopathy, and thyroid normal CHEST: Normal inspiratory effort BREAST: soft, non-tender, symmetric, no dominant mass, normal nipple-areolar complex, no lymphadenopathy, and no nipple discharge ABDOMEN: soft, non-tender, and no masses NEURO: alert and oriented x3,exam grossly non-focal PELVIS: External genitalia normal without lesions. Perineal body intact. No vaginal or cervical lesions. Cervix closed. No adnexal masses or tenderness. Clinical Pelvimetry: Pelvimetry clinically assessed as adequate Limited OB ultrasound exam: single intrauterine and positive cardiac activity OB Risk Screening: Completed, no positive findings documented. ASSESSMENT: 27 year old at 10w3d wks gestational age PLAN: 1) Patient oriented to practice. Patient given new OB orientation folder. Discussed nutrition, folic acid supplementation, dietary guidelines, exercise, smoking, alcohol, caffeine, and drug use. Discussed gestational weight gain guidelines. Discussed routine OB labs including STD/HIV. Discussed how to access Your guide to a health and the Test Lead Application Testing. OB Community care order placed. Discussed aneuploidy and carrier screening. Regarding aneuploidy screening, nuchal translucency/first trimester early anatomy ultrasound and NIPT were discussed. Regarding carrier screening, the myriad screen was discussed. The risks/benefits and limitations of NIPT/aneuploidy screening were reviewed including the potential for false negative and false positive results. We discussed the availability of professional-society guided carrier screening and reviewed the conditions screened and limitations of screening. The availability of genetic counseling was reviewed. Information on aneuploidy/carrier screening was provided. The patient chooses: Aneuploidy screening: declines screening Discussed hemoglobin electrophoresis. Patient: Declines Patient has penicillin allergy, plan for allergy testing. Reviewed midwifery and associate professor of art history services that are available. 2) History of diabetes: Given previous gestational diabetes or LGA baby, ordered early glucose screen or Hemoglobin A1C Follow up in 4 weeks or sooner prn. @8 weeks external US done that show a small sub-chorionic hemorrhage, pt had had no bleeding. Also showed a small cyst on umbilical cord Kayy Longo APRN.FLORECITA documented in this encounter [facility] 12-17-2022 Note HNO ID: [id number] Author: Steffanie Miller APRN.FLORECITA Service: ? Author Type: Nurse Practitioner Type: Progress Notes Filed: 12/17/2022 9:01 AM Note Text: Patient came in with complaints of left abdominal discomfort and firm lump that she noted a few days ago. Patient says that she did not have it before. On palpation a firm lump is noted in the mid left area. About the size of a softball. And tender upon palpation. Patient is also 7 or 8 weeks . Patient denies any other symptoms associated with it. Did call [facility] office they agree ER is best place for patient. Patient is being sent right now. Patient is going to take her self. [facility] 12-17-2022 History of Present illness Narrative Patient came in with complaints of left abdominal discomfort and firm lump that she noted a few days ago. Patient says that she did not have it before. On palpation a firm lump is noted in the mid left area. About the size of a softball. And tender upon palpation. Patient is also 7 or 8 weeks . Patient denies any other symptoms associated with it. Did call [facility] office they agree ER is best place for patient. Patient is being sent right now. Patient is going to take her self. documented in this encounter [facility] 12-03-2022 Note HNO ID: [id number] Author: Kimi Sherwood RDMS Service: ? Author Type: Auto Motor Mechanic Type: Progress Notes Filed: 12/03/2022 11:24 AM Note Text: Radiology Service Progress Note PATIENT NAME: Laina De León DATE OF SERVICE: December 03, 2022 TIME: 11:24 AM PATIENT IDENTITY VERIFICATION COMPLETED USING TWO (2) IDENTIFIERS: Name and Date of confirmed by patient verbally. FALL SCREENING: Has the patient had 2 falls in the last year or 1 fall with injury or currently using an Ambulatory Assistive Device (Walker, Cane, Wheelchair, Crutches, etc.)? No PATIENT GENDER DATA: Female. status: : Yes. Urinalysis hCG results are as follows: Positive status: NO. PATIENT RELEVANT IMPLANT DATA REVIEWED: Not Applicable RADIOLOGY DEPARTMENT: Ultrasound PERIPHERAL IV DATA: Not applicable SIGNED BY: Kimi Sherwood RDMS RVT December 03, 2022 11:24 AM [facility] 12-03-2022 History of Present illness Narrative Radiology Service Progress Note PATIENT NAME: Laina De León DATE OF SERVICE: December 03, 2022 TIME: 11:24 AM PATIENT IDENTITY VERIFICATION COMPLETED USING TWO (2) IDENTIFIERS: Name and Date of confirmed by patient verbally. FALL SCREENING: Has the patient had 2 falls in the last year or 1 fall with injury or currently using an Ambulatory Assistive Device (Walker, Cane, Wheelchair, Crutches, etc.)? No PATIENT GENDER DATA: Female. status: : Yes. Urinalysis hCG results are as follows: Positive status: NO. PATIENT RELEVANT IMPLANT DATA REVIEWED: Not Applicable RADIOLOGY DEPARTMENT: Ultrasound PERIPHERAL IV DATA: Not applicable SIGNED BY: Kimi Sherwood RDMS RVT December 03, 2022 11:24 AM documented in this encounter [facility] 12-01-2022 Note HNO ID: [id number] Author: Angie Mora MD Service: ? Author Type: Physician Type: Progress Notes Filed: 12/01/2022 3:11 PM Note Text: patient needs new order for early ob US in radiology. Angie Mora MD [facility] 12-01-2022 History of Present illness Narrative patient needs new order for early ob US in radiology. Angie Mora MD documented in this encounter [facility] 11-20-2022 Miscellaneous Notes Patient notified and NOB scheduled. Klarissa Lay RN Message and mychart message left asking pt to call the office for results. Leonela Carreon LPN Hcg quants increasing well. OK to scheduled PNC. Chelsea Miller MD 2nd HCG quant from [facility] is 109 Order faxed to [facility] lab. Please leave phone note open for result. Patient will still need initial visits scheduled. Inna Horne RN Spoke with patient. She's agreeable to go later today. Lab order on 's desk. Inna Horne RN Yes repeat HCG today if possible [facility] lab called. Patient was seen at [facility] ER on 11/17 to rule out ectopic and torsion. Her HCG was 46. Lab called because the wrong order was placed by ER physician. A urine HCG was done today. No blood work. Patient was to have a repeat HCG today. Would you like us to contact patient and see if she can go back to [facility] lab and have HCG level done? ER report in mailbox. Inna Horne RN documented in this encounter [facility] 11-17-2022 Miscellaneous Notes Noted Chelsea Miller MD Patient called with c/o left sided pain accompanied by nausea that began 2 hours ago. Sharp pain with a pain rate of 7 out of 10. An 8cm cyst was seen on her US on 11/05/22. Advised to visit ER to rule out torsion. Patient informed nurse that she took three positive UPT. LMP 10/20/22. Patient plans to go to ER for evaluation. Message forwarded to DOC and RM to review when she returns. Inna Horne RN documented in this encounter [facility] 11-05-2022 Miscellaneous Notes Pt notified and assisted to schedule follow up ultrasound.Leonela Carreon LPN Please let the pt know that she does have a 8cm cyst on the left ovary and that is the cause of her pain. Review torsion precautions. Follow up US in 8 weeks. Kayy Longo APRN.CNP documented in this encounter [facility] 11-04-2022 Note HNO ID: [id number] Author: Kathleen Espinoza RDMS Service: ? Author Type: Glass Scullion Type: Progress Notes Filed: 11/04/2022 2:58 PM Note Text: Radiology Service Progress Note PATIENT NAME: Laina De León DATE OF SERVICE: November 04, 2022 TIME: 2:58 PM PATIENT IDENTITY VERIFICATION COMPLETED USING TWO (2) IDENTIFIERS: Name and Date of confirmed by patient verbally. FALL SCREENING: Has the patient had 2 falls in the last year or 1 fall with injury or currently using an Ambulatory Assistive Device (Walker, Cane, Wheelchair, Crutches, etc.)? No PATIENT GENDER DATA: Female. status: : No status: NO. PATIENT RELEVANT IMPLANT DATA REVIEWED: Not Applicable RADIOLOGY DEPARTMENT: Ultrasound PERIPHERAL IV DATA: Not applicable SIGNED BY: Kathleen Espinoza RDMS November 04, 2022 2:58 PM [facility] 11-04-2022 Note HNO ID: [id number] Author: Kathleen Espinoza RDMS Service: ? Author Type: Glass Scullion Type: Progress Notes Filed: 11/04/2022 2:59 PM Note Text: Radiology Service Progress Note PATIENT NAME: Laina De León DATE OF SERVICE: November 04, 2022 TIME: 2:59 PM PATIENT IDENTITY VERIFICATION COMPLETED USING TWO (2) IDENTIFIERS: Name and Date of confirmed by patient verbally. FALL SCREENING: Has the patient had 2 falls in the last year or 1 fall with injury or currently using an Ambulatory Assistive Device (Walker, Cane, Wheelchair, Crutches, etc.)? No PATIENT GENDER DATA: Female. status: : No status: NO. PATIENT RELEVANT IMPLANT DATA REVIEWED: Not Applicable RADIOLOGY DEPARTMENT: Ultrasound PERIPHERAL IV DATA: Not applicable SIGNED BY: Kathleen Espinoza RDMS November 04, 2022 2:59 PM [facility] 11-04-2022 History of Present illness Narrative Radiology Service Progress Note PATIENT NAME: Laina De León DATE OF SERVICE: November 04, 2022 TIME: 2:59 PM PATIENT IDENTITY VERIFICATION COMPLETED USING TWO (2) IDENTIFIERS: Name and Date of confirmed by patient verbally. FALL SCREENING: Has the patient had 2 falls in the last year or 1 fall with injury or currently using an Ambulatory Assistive Device (Walker, Cane, Wheelchair, Crutches, etc.)? No PATIENT GENDER DATA: Female. status: : No status: NO. PATIENT RELEVANT IMPLANT DATA REVIEWED: Not Applicable RADIOLOGY DEPARTMENT: Ultrasound PERIPHERAL IV DATA: Not applicable SIGNED BY: Kathleen Espinoza RDMS November 04, 2022 2:59 PM documented in this encounter [facility] 11-02-2022 Note HNO ID: [id number] Author: Sterling Martinez RT(Jerilyn) Service: Radiology Author Type: Technologist Type: Progress Notes Filed: 11/02/2022 3:00 PM Note Text: Radiology Service Progress Note PATIENT NAME: Laina De León DATE OF SERVICE: November 02, 2022 TIME: 2:59 PM PATIENT IDENTITY VERIFICATION COMPLETED USING TWO (2) IDENTIFIERS: Name and Date of confirmed by patient verbally and Name and Date of confirmed by identification band. FALL SCREENING: Has the patient had 2 falls in the last year or 1 fall with injury or currently using an Ambulatory Assistive Device (Walker, Cane, Wheelchair, Crutches, etc.)? No PATIENT GENDER DATA: Female. status: : No status: NO. PATIENT RELEVANT IMPLANT DATA REVIEWED: Not Applicable RADIOLOGY DEPARTMENT: General X-ray: Exam(s) Completed: Chest X-Ray PERIPHERAL IV DATA: Not applicable SIGNED BY: JEROD Monge) November 02, 2022 2:59 PM [facility] 11-02-2022 History of Present illness Narrative Radiology Service Progress Note PATIENT NAME: Laina De León DATE OF SERVICE: November 02, 2022 TIME: 2:59 PM PATIENT IDENTITY VERIFICATION COMPLETED USING TWO (2) IDENTIFIERS: Name and Date of confirmed by patient verbally and Name and Date of confirmed by identification band. FALL SCREENING: Has the patient had 2 falls in the last year or 1 fall with injury or currently using an Ambulatory Assistive Device (Walker, Cane, Wheelchair, Crutches, etc.)? No PATIENT GENDER DATA: Female. status: : No status: NO. PATIENT RELEVANT IMPLANT DATA REVIEWED: Not Applicable RADIOLOGY DEPARTMENT: General X-ray: Exam(s) Completed: Chest X-Ray PERIPHERAL IV DATA: Not applicable SIGNED BY: RT Saleem(Jerilyn) November 02, 2022 2:59 PM documented in this encounter [facility] 11-02-2022 Note HNO ID: [id number] Author: Keith Arriaga APRN.AIRCRAFT ENGINE MECHANIC OVERHAUL Service: ? Author Type: Nurse Practitioner Type: Progress Notes Filed: 11/02/2022 1:03 PM Note Text: This note was created using [employer]ishop[employer]. Subjective Laina De León is a 27 year old female. CC: cough X3 weeks sore throat, coughing, headache, lightheaded and dizzy contributes this to hard coughing, denies lightheadedness/dizziness at rest, chills a couple days ago, bilateral ear pressure, congestion Overall no improvement Denies shortness of breath, wheezing, ear pain, nausea, vomiting, diarrhea Struve exercise-induced asthma as a child To date Mucinex, DayQuil/NyQuil Sick contact: none known Review of Systems Constitutional: Negative for chills, fatigue and fever. HENT: Positive for congestion, ear pain and sore throat. Negative for postnasal drip, rhinorrhea, sinus pressure and sinus pain. Respiratory: Positive for cough. Negative for shortness of breath and wheezing. Gastrointestinal: Negative for diarrhea, nausea and vomiting. Neurological: Negative for headaches. Objective BP 126/86 (BP Site: Right Arm, BP Position: Sitting, BP Cuff Size: Regular Adult) Pulse 86 Temp 36.4 ?C (97.6 ?F) (Right Tympanic) Resp 18 Ht 160 cm (5' 3 ) Wt 83.4 kg (183 lb 14.4 oz) LMP 09/29/2022 (Exact Date) SpO2 97% BMI 32.58 kg/m? Physical Exam Vitals reviewed. Constitutional: General: She is not in acute distress. Appearance: She is not ill-appearing. HENT: Head: Normocephalic. Right Ear: Ear canal and external ear normal. A middle ear effusion (Mild serous) is present. Left Ear: Ear canal and external ear normal. A middle ear effusion (Serous) is present. Nose: Nose normal. Right Sinus: No maxillary sinus tenderness or frontal sinus tenderness. Left Sinus: No maxillary sinus tenderness or frontal sinus tenderness. Mouth/Throat: Lips: [place]. Pharynx: Oropharynx is clear. Uvula midline. Posterior oropharyngeal erythema (slight) present. No pharyngeal swelling, oropharyngeal exudate or uvula swelling. Tonsils: No tonsillar exudate or tonsillar abscesses. Comments: Postnasal drainage noted Cardiovascular: Rate and Rhythm: Normal rate and regular rhythm. Heart sounds: Normal heart sounds. Pulmonary: Effort: Pulmonary effort is normal. No respiratory distress. Breath sounds: Wheezing present. Comments: Faint expiratory wheeze bilateral lower lung stevens. Harsh cough during exam. Lymphadenopathy: Head: Right side of head: No submental, submandibular, tonsillar, preauricular, posterior auricular or occipital adenopathy. Left side of head: No submental, submandibular, tonsillar, preauricular, posterior auricular or occipital adenopathy. Skin: General: Skin is warm. Coloration: Skin is not cyanotic or pale. Neurological: Mental Status: She is alert and oriented to person, place, and time. Assessment and Plan ASSESSMENT/PLAN: 1. Sinobronchitis - ICD9: 473.9, 490, ICD10: J32.9, J40 (primary diagnosis) -Discussed with patient given wheezing will begin albuterol Given length of cough with worsening will also obtain chest x-ray to rule out pneumonia - Will begin treatment with Augmentin 875 mg PO BID for 10 days to cover strep and respiratory bacteria, as tolerated despite a listed cephalosporin allergy Contagiousness and precautions discussed Work note provided - Follow up in 3-5 days if symptoms persist or worsen. -Discussed red flags and emergent treatment or immediate evaluation - XR CHEST 2V FRONTAL/LAT 2. Strep pharyngitis - ICD9: 034.0, ICD10: J02.0 - Group A strep molecular testing positive -See above Note provided - Contagious dz precautions discussed- including considered contagious until on antibiotics for 24 hours - The patient should follow up in 3-5 days if symptoms persist or worsen Keith Arriaga APRN.CNP [facility] 11-02-2022 Instructions Keith Arriaga APRN.CNP - 11/02/2022 12:30 PM EDT Rest Fluids May use Tylenol as needed for discomfort Plain Mucinex Leave 4 hours between taking your antibiotic and any vitamins, calcium or magnesium supplements. Take antibiotic with full glass of water and food. This antibiotic can make you more sensitive to sunlight avoid prolonged sun exposure, use sun protection SPF. documented in this encounter [facility] 11-02-2022 History of Present illness Narrative This note was created using [employer]. Subjective Laina De León is a 27 year old female. CC: cough X3 weeks sore throat, coughing, headache, lightheaded and dizzy contributes this to hard coughing, denies lightheadedness/dizziness at rest, chills a couple days ago, bilateral ear pressure, congestion Overall no improvement Denies shortness of breath, wheezing, ear pain, nausea, vomiting, diarrhea Struve exercise-induced asthma as a child To date Mucinex, DayQuil/NyQuil Sick contact: none known Review of Systems Constitutional: Negative for chills, fatigue and fever. HENT: Positive for congestion, ear pain and sore throat. Negative for postnasal drip, rhinorrhea, sinus pressure and sinus pain. Respiratory: Positive for cough. Negative for shortness of breath and wheezing. Gastrointestinal: Negative for diarrhea, nausea and vomiting. Neurological: Negative for headaches. Objective BP 126/86 (BP Site: Right Arm, BP Position: Sitting, BP Cuff Size: Regular Adult) Pulse 86 Temp 36.4 C (97.6 F) (Right Tympanic) Resp 18 Ht 160 cm (5' 3 ) Wt 83.4 kg (183 lb 14.4 oz) LMP 09/29/2022 (Exact Date) SpO2 97% BMI 32.58 kg/m Physical Exam Vitals reviewed. Constitutional: General: She is not in acute distress. Appearance: She is not ill-appearing. HENT: Head: Normocephalic. Right Ear: Ear canal and external ear normal. A middle ear effusion (Mild serous) is present. Left Ear: Ear canal and external ear normal. A middle ear effusion (Serous) is present. Nose: Nose normal. Right Sinus: No maxillary sinus tenderness or frontal sinus tenderness. Left Sinus: No maxillary sinus tenderness or frontal sinus tenderness. Mouth/Throat: Lips: [place]. Pharynx: Oropharynx is clear. Uvula midline. Posterior oropharyngeal erythema (slight) present. No pharyngeal swelling, oropharyngeal exudate or uvula swelling. Tonsils: No tonsillar exudate or tonsillar abscesses. Comments: Postnasal drainage noted Cardiovascular: Rate and Rhythm: Normal rate and regular rhythm. Heart sounds: Normal heart sounds. Pulmonary: Effort: Pulmonary effort is normal. No respiratory distress. Breath sounds: Wheezing present. Comments: Faint expiratory wheeze bilateral lower lung stevens. Harsh cough during exam. Lymphadenopathy: Head: Right side of head: No submental, submandibular, tonsillar, preauricular, posterior auricular or occipital adenopathy. Left side of head: No submental, submandibular, tonsillar, preauricular, posterior auricular or occipital adenopathy. Skin: General: Skin is warm. Coloration: Skin is not cyanotic or pale. Neurological: Mental Status: She is alert and oriented to person, place, and time. Assessment and Plan ASSESSMENT/PLAN: 1. Sinobronchitis - ICD9: 473.9, 490, ICD10: J32.9, J40 (primary diagnosis) -Discussed with patient given wheezing will begin albuterol Given length of cough with worsening will also obtain chest x-ray to rule out pneumonia - Will begin treatment with Augmentin 875 mg PO BID for 10 days to cover strep and respiratory bacteria, as tolerated despite a listed cephalosporin allergy Contagiousness and precautions discussed Work note provided - Follow up in 3-5 days if symptoms persist or worsen. -Discussed red flags and emergent treatment or immediate evaluation - XR CHEST 2V FRONTAL/LAT 2. Strep pharyngitis - ICD9: 034.0, ICD10: J02.0 - Group A strep molecular testing positive -See above Note provided - Contagious dz precautions discussed- including considered contagious until on antibiotics for 24 hours - The patient should follow up in 3-5 days if symptoms persist or worsen Keith Arriaga APRN.AIRCRAFT ENGINE MECHANIC OVERHAUL documented in this encounter [facility] 10-16-2022 Note HNO ID: [id number] Author: Kayy Longo APRN.FLORECITA Service: ? Author Type: Nurse Practitioner Type: Progress Notes Filed: 10/16/2022 1:45 PM Note Text: Director Corporate Sales offered: Patient declines. Laina is a 27 year old who presents for an annual gynecologic exam with complaints, cramping on the left side for 2 months Menses: cycles every 21-25 days and 4-5 days of flow. 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 Continue to monitor. No Hemabate. SW Concussion 2010 COVID-19 virus infection 03/26/202103/2021 Diet controlled gestational diabetes mellitus (GDM) in third trimester 08/16/2019 Gestational hypertension Hx of gestational diabetes mellitus, not currently 05/16/2020 Mononucleosis NEGATIVE MEDICAL HISTORY normal color vision PMH - PAST MEDICAL HISTORY OF slip disc Spondylolysis of lumbar region 06/25/2011 PAST SURGICAL HISTORY Procedure Laterality Date GASTRIC BYPASS HX 08/20/2022 LAPAROSCOPY SURG CHOLECYSTECTOMY 08/30/2018 Cholecystectomy, lap FAMILY HISTORY Problem Relation Age of Onset No Known Problems Father No Known Problems Mother No Known Problems Sister No Known Problems Sister No Known Problems Maternal Grandfather No Known Problems Maternal Grandmother Heart Paternal Grandfather Hypertension Paternal Grandmother No Known Problems Daughter Heart Other great g-father/Paternal Hypertension Other mgm/paternal side Thyroid Other MGGMo Anesthesia Problems No Family History SOCIAL HISTORY Social History Tobacco Use Smoking status: Never Smokeless tobacco: Never Vaping Use Vaping Use: Never used Substance Use Topics Alcohol use: No Drug use: No REVIEW OF SYSTEMS Abdomen: No abdominal pain, nausea, vomiting, diarrhea, or constipation. No bloating, early satiety, indigestion, or increased flatulence. Bladder: No dysuria, gross hematuria, urinary frequency, urinary urgency, or incontinence. Breast: No breast lumps, nipple d/c, overlying skin changes, redness or skin retraction. Allergies and current medication updated:Yes EXAM: BP 112/82 Wt 185 lb 3.2 oz (84.0kg) LMP 09/29/2022 GENERAL: pleasant, female in no apparent distress HEENT: Normocephalic, atraumatic, mucus membranes moist, and no lesions NECK: Supple, full range of motion, no adenopathy, and thyroid normal DERMATOLOGY: Normal, without lesions, non-icteric, and non-hirsute BREAST: soft, non-tender, symmetric, normal nipple-areolar complex, no lymphadenopathy, no nipple discharge, and +left breast upper outer quadrant has a 2 cm possible cyst that is tender with exam CHEST: Normal inspiratory effort ABDOMEN: soft, non-tender, and no masses PELVIC: external genitalia normal, normal Bartholin's glands, urethra, [place]'s glands, no vulvar lesions, no cervical lesions, good vaginal support, physiologic discharge present, normal appearing perineal body and perianal region BIMANUAL: uterus normal size, shape and consistency, no adnexal masses, and non-tender RECTOVAGINAL: deferred. NEURO: alert and oriented x3,exam grossly non-focal EXTREMITIES: normal ASSESSMENT/PLAN: 1) Health maintenance: Pap/HPV up to date. Nutrition, exercise and routine health maintenance exams reviewed. Calcium/Vitamin D supplementation information provided. 2) Contraception: none. Contraceptive options reviewed and information provided. 3) STD screening: Declined STD check. 4) Follow up one year or sooner as needed Pelvic US and breast US ordered Kayy Longo APRN.CNP [facility] 10-16-2022 History of Present illness Narrative Director Corporate Sales offered: Patient declines. Laina is a 27 year old who presents for an annual gynecologic exam with complaints, cramping on the left side for 2 months Menses: cycles every 21-25 days and 4-5 days of flow. 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 Continue to monitor. No Hemabate. SW Concussion 2010 COVID-19 virus infection 03/26/202103/2021 Diet controlled gestational diabetes mellitus (GDM) in third trimester 08/16/2019 Gestational hypertension Hx of gestational diabetes mellitus, not currently 05/16/2020 Mononucleosis NEGATIVE MEDICAL HISTORY normal color vision PMH - PAST MEDICAL HISTORY OF slip disc Spondylolysis of lumbar region 06/25/2011 PAST SURGICAL HISTORY Procedure Laterality Date GASTRIC BYPASS HX 08/20/2022 LAPAROSCOPY SURG CHOLECYSTECTOMY 08/30/2018 Cholecystectomy, lap FAMILY HISTORY Problem Relation Age of Onset No Known Problems Father No Known Problems Mother No Known Problems Sister No Known Problems Sister No Known Problems Maternal Grandfather No Known Problems Maternal Grandmother Heart Paternal Grandfather Hypertension Paternal Grandmother No Known Problems Daughter Heart Other great g-father/Paternal Hypertension Other mgm/paternal side Thyroid Other MGGMo Anesthesia Problems No Family History SOCIAL HISTORY Social History Tobacco Use Smoking status: Never Smokeless tobacco: Never Vaping Use Vaping Use: Never used Substance Use Topics Alcohol use: No Drug use: No REVIEW OF SYSTEMS Abdomen: No abdominal pain, nausea, vomiting, diarrhea, or constipation. No bloating, early satiety, indigestion, or increased flatulence. Bladder: No dysuria, gross hematuria, urinary frequency, urinary urgency, or incontinence. Breast: No breast lumps, nipple d/c, overlying skin changes, redness or skin retraction. Allergies and current medication updated:Yes EXAM: BP 112/82 Wt 185 lb 3.2 oz (84.0kg) LMP 09/29/2022 GENERAL: pleasant, female in no apparent distress HEENT: Normocephalic, atraumatic, mucus membranes moist, and no lesions NECK: Supple, full range of motion, no adenopathy, and thyroid normal DERMATOLOGY: Normal, without lesions, non-icteric, and non-hirsute BREAST: soft, non-tender, symmetric, normal nipple-areolar complex, no lymphadenopathy, no nipple discharge, and +left breast upper outer quadrant has a 2 cm possible cyst that is tender with exam CHEST: Normal inspiratory effort ABDOMEN: soft, non-tender, and no masses PELVIC: external genitalia normal, normal Bartholin's glands, urethra, [place]'s glands, no vulvar lesions, no cervical lesions, good vaginal support, physiologic discharge present, normal appearing perineal body and perianal region BIMANUAL: uterus normal size, shape and consistency, no adnexal masses, and non-tender RECTOVAGINAL: deferred. NEURO: alert and oriented x3,exam grossly non-focal EXTREMITIES: normal ASSESSMENT/PLAN: 1) Health maintenance: Pap/HPV up to date. Nutrition, exercise and routine health maintenance exams reviewed. Calcium/Vitamin D supplementation information provided. 2) Contraception: none. Contraceptive options reviewed and information provided. 3) STD screening: Declined STD check. 4) Follow up one year or sooner as needed Pelvic US and breast US ordered Kayy Longo APRN.FLORECITA documented in this encounter [facility] 09-30-2022 Note HNO ID: [id number] Author: Karen Ochoa, PhD Service: ? Author Type: Physician Type: Progress Notes Filed: 09/30/2022 2:58 PM Note Text: [facility] Progress Note 09/30/2022 Billing code: [id number]/[place] Patient did not attend, cancel, or reschedule this appointment. Shared Psychology Appointment (SPA, virtual)-- NO SHOW Karen Ochoa, PhD Clinical Health Psychologist [facility] 09-29-2022 Note HNO ID: [id number] Author: RT Willam(R) Service: Radiology Author Type: Technologist Type: Progress Notes Filed: 09/29/2022 10:35 AM Note Text: Radiology Service Progress Note PATIENT NAME: Laina De León DATE OF SERVICE: September 29, 2022 TIME: 10:34 AM PATIENT IDENTITY VERIFICATION COMPLETED USING TWO (2) IDENTIFIERS: Name and Date of confirmed by patient verbally and Name and Date of confirmed by identification band. FALL SCREENING: Has the patient had 2 falls in the last year or 1 fall with injury or currently using an Ambulatory Assistive Device (Walker, Cane, Wheelchair, Crutches, etc.)? No PATIENT GENDER DATA: Female. status: : No status: NO. PATIENT RELEVANT IMPLANT DATA REVIEWED: Not Applicable RADIOLOGY DEPARTMENT: General X-ray: Exam(s) Completed: GI/ Procedure(s): Upper GI with barium contrast PERIPHERAL IV DATA: Not applicable SIGNED BY: RT Willam(R) September 29, 2022 10:34 AM [facility] 09-28-2022 Note HNO ID: [id number] Author: Jeffery Tinajero RD Service: ? Author Type: Registered Dietitian Type: Progress Notes Filed: 09/28/2022 4:05 PM Note Text: Patient was scheduled for a nutrition appointment today. The patient did not check into their scheduled appointment. I sent the patient a [employer] message encouraging them to reschedule their appointment by calling [phone]. [facility] 09-28-2022 History of Present illness Narrative Patient was scheduled for a nutrition appointment today. The patient did not check into their scheduled appointment. I sent the patient a [employer] message encouraging them to reschedule their appointment by calling [phone]. documented in this encounter [facility] 09-18-2022 Note HNO ID: [id number] Author: Brenda Yost MD Service: ? Author Type: Physician Type: Progress Notes Filed: 09/18/2022 11:29 AM Note Text: Metabolic Surgery Postoperative Virtual Clinic Visit Name: Laina De León This visit was performed virtually via Zoom technology due to the COVID-19 epidemic as an effort to protect patients and minimize exposure.? Virtual Visit (Audio/Visual) I have discussed the nature of this visit with the patient which will occur via [employer] (Phone, Virtual Visit) and she agrees to proceed with this interaction . Index Surgery Date of Surgery: 08/20/2022 Surgeon: Brenda Yost MD Surgical Procedure: robo bypass Pre-surgical weight: 230lbs HPI: Today's Visit: There were no vitals taken for this visit. No weight on file for this encounter. Last Visit: Wt: 101.6 kg (224 lb) BMI: 39.68 kg/(m2) Total weight loss: not asked About 50% of the time, patient feels a balloon sensation or gas bubble in her lower neck/chest area when she tries to eat soft foods. Then gets nauseous, has abdominal discomfort. Has tried to cottage cheese, scrambled eggs. Has the same sensation with any type of soft foods. Also becomes slightly shaky and lightheadedness 15-20min after eating. Fluid intake is around 40-50oz Protein intake is around 30-40grams BMs are normal Pain medication use: tylenol prn No issues with incisions. Taking vitamins PHYSICAL EXAM: General - Normal, healthy, cooperative, in no acute distress, obese Able to interact verbally by video conference Psych - ORIENTATION: normal to time place, person and situation Mood/Affect: AFFECT AND MOOD: Normal Head/Neuro - Normal size and shape Facial appearance normal Pulmonary - respiratory effort normal Cardiovascular - patient describes extremities normal, warm, no cyanosis,no clubbing, and no edema Abdominal - Obese, Visible protrusions or hernias: No Incisions/scars: Healed, per patient Skin - abnormal lesions not visualized Motor - patient seen sitting with Normal appearing strength and coordination Assessment A/P: Normal post-OP course Patient Active Problem List Morbid obesity with BMI of 40.0-44.9, adult (HCC) Obesity, Class III, BMI >= 40 COVID-19 virus infection Onychomycosis Well adult exam Hx of gestational diabetes mellitus, not currently Morbid obesity (HCC) History of gestational hypertension 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[facility]) Resolved Hospital Problems No resolved problems to display. DISPOSITION: Return 1 month to Post-op follow up/ individual office visit EDUCATION: Encouraged to continue with healthy lifestyle changes and incorporate cardiovascular and resistance training, Discussed weight loss expectations after bariatric and metabolic surgery, Advised PT to avoid NSAIDs, smoking tobacco given increased risk of marginal ulcers, or Discussed importance of protein intake as per the RDN note CBC, CMP Upper GI ordered REFERRALS: N/A LABS: Brenda Yost MD Advanced Laparoscopic AND Bariatric Surgery Bariatric AND Metabolic [place] [facility] 09-18-2022 History of Present illness Narrative Metabolic Surgery Postoperative Virtual Clinic Visit Name: Laina De León This visit was performed virtually via [employer] technology due to the COVID-19 epidemic as an effort to protect patients and minimize exposure.? Virtual Visit (Audio/Visual) I have discussed the nature of this visit with the patient which will occur via [facility] (Phone, Virtual Visit) and she agrees to proceed with this interaction . Index Surgery Date of Surgery: 08/20/2022 Surgeon: Brenda Yost MD Surgical Procedure: robo bypass Pre-surgical weight: 230lbs HPI: Today's Visit: There were no vitals taken for this visit. No weight on file for this encounter. Last Visit: Wt: 101.6 kg (224 lb) BMI: 39.68 kg/(m^2) Total weight loss: not asked About 50% of the time, patient feels a balloon sensation or gas bubble in her lower neck/chest area when she tries to eat soft foods. Then gets nauseous, has abdominal discomfort. Has tried to cottage cheese, scrambled eggs. Has the same sensation with any type of soft foods. Also becomes slightly shaky and lightheadedness 15-20min after eating. Fluid intake is around 40-50oz Protein intake is around 30-40grams BMs are normal Pain medication use: tylenol prn No issues with incisions. Taking vitamins PHYSICAL EXAM: General - Normal, healthy, cooperative, in no acute distress, obese Able to interact verbally by video conference Psych - ORIENTATION: normal to time place, person and situation Mood/Affect: AFFECT AND MOOD: Normal Head/Neuro - Normal size and shape Facial appearance normal Pulmonary - respiratory effort normal Cardiovascular - patient describes extremities normal, warm, no cyanosis,no clubbing, and no edema Abdominal - Obese, Visible protrusions or hernias: No Incisions/scars: Healed, per patient Skin - abnormal lesions not visualized Motor - patient seen sitting with Normal appearing strength and coordination Assessment A/P: Normal post-OP course Patient Active Problem List Morbid obesity with BMI of 40.0-44.9, adult ([facility]) Obesity, Class III, BMI >= 40 COVID-19 virus infection Onychomycosis Well adult exam Hx of gestational diabetes mellitus, not currently Morbid obesity (HCC) History of gestational hypertension 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[facility]) Resolved Hospital Problems No resolved problems to display. DISPOSITION: Return 1 month to Post-op follow up/ individual office visit EDUCATION: Encouraged to continue with healthy lifestyle changes and incorporate cardiovascular and resistance training, Discussed weight loss expectations after bariatric and metabolic surgery, Advised PT to avoid NSAIDs, smoking tobacco given increased risk of marginal ulcers, or Discussed importance of protein intake as per the RDN note CBC, CMP Upper GI ordered REFERRALS: N/A LABS: Brenda Yost MD Advanced Laparoscopic & Bariatric Surgery Bariatric & Metabolic [place] [facility] documented in this encounter [facility] 09-04-2022 Note HNO ID: [id number] Author: Brenda Yost MD Service: ? Author Type: Physician Type: Progress Notes Filed: 09/04/2022 9:06 AM Note Text: Metabolic Surgery Postoperative Virtual Clinic Visit Name: Laina De León This visit was performed virtually via Zoom technology due to the COVID-19 epidemic as an effort to protect patients and minimize exposure.? Virtual Visit (Audio/Visual) I have discussed the nature of this visit with the patient which will occur via [facility] (Phone, Virtual Visit) and she agrees to proceed with this interaction . Index Surgery Date of Surgery: 08/20/2022 Surgeon: Brenda Yost MD Surgical Procedure: robo bypass Pre-surgical weight: 230lbs HPI: Today's Visit: There were no vitals taken for this visit. No weight on file for this encounter. Last Visit: Wt: 101.6 kg (224 lb) BMI: 39.68 kg/(m2) Total weight loss: not asked Patient developed abdominal pain about 4 days postop. Went to the ED and was found to have a ruptured ovarian cyst. Also found to be COVID positive. Relatively asymptomatic from a respiratory standpoint. Overall, patient has been doing well now. Fluid intake is around 50oz Protein intake is around 30-40grams BMs are normal Pain medication use: none (last use was 5 days ago) No fevers/chills. No issues with incisions. Patient was recovering from ruptured cyst. Has been walking PHYSICAL EXAM: General - Normal, healthy, cooperative, in no acute distress, obese Able to interact verbally by video conference Psych - ORIENTATION: normal to time place, person and situation Mood/Affect: AFFECT AND MOOD: Normal Head/Neuro - Normal size and shape Facial appearance normal Pulmonary - respiratory effort normal Cardiovascular - patient describes extremities normal, warm, no cyanosis,no clubbing, and no edema Abdominal - Obese, Visible protrusions or hernias: No Incisions/scars: Healed, per patient Skin - abnormal lesions not visualized Motor - patient seen sitting with Normal appearing strength and coordination Assessment A/P: Normal post-OP course Patient Active Problem List Morbid obesity with BMI of 40.0-44.9, adult ([facility]) Obesity, Class III, BMI >= 40 COVID-19 virus infection Onychomycosis Well adult exam Hx of gestational diabetes mellitus, not currently Morbid obesity (HCC) History of gestational hypertension 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[facility]) Resolved Hospital Problems No resolved problems to display. DISPOSITION: Return 1 month to Post-op follow up/ individual office visit EDUCATION: Encouraged to continue with healthy lifestyle changes and incorporate cardiovascular and resistance training, Discussed weight loss expectations after bariatric and metabolic surgery, Advised PT to avoid NSAIDs, smoking tobacco given increased risk of marginal ulcers, or Discussed importance of protein intake as per the RDN note REFERRALS: N/A LABS: Brenda Yost MD Advanced Laparoscopic AND Bariatric Surgery Bariatric AND Metabolic [place] [id number] History of Present illness Narrative Metabolic Surgery Postoperative Virtual Clinic Visit Name: Laina De León This visit was performed virtually via Zoom technology due to the COVID-19 epidemic as an effort to protect patients and minimize exposure.? Virtual Visit (Audio/Visual) I have discussed the nature of this visit with the patient which will occur via [facility] (Phone, Virtual Visit) and she agrees to proceed with this interaction . Index Surgery Date of Surgery: 08/20/2022 Surgeon: Brenda Yost MD Surgical Procedure: robo bypass Pre-surgical weight: 230lbs HPI: Today's Visit: There were no vitals taken for this visit. No weight on file for this encounter. Last Visit: Wt: 101.6 kg (224 lb) BMI: 39.68 kg/(m^2) Total weight loss: not asked Patient developed abdominal pain about 4 days postop. Went to the ED and was found to have a ruptured ovarian cyst. Also found to be COVID positive. Relatively asymptomatic from a respiratory standpoint. Overall, patient has been doing well now. Fluid intake is around 50oz Protein intake is around 30-40grams BMs are normal Pain medication use: none (last use was 5 days ago) No fevers/chills. No issues with incisions. Patient was recovering from ruptured cyst. Has been walking PHYSICAL EXAM: General - Normal, healthy, cooperative, in no acute distress, obese Able to interact verbally by video conference Psych - ORIENTATION: normal to time place, person and situation Mood/Affect: AFFECT AND MOOD: Normal Head/Neuro - Normal size and shape Facial appearance normal Pulmonary - respiratory effort normal Cardiovascular - patient describes extremities normal, warm, no cyanosis,no clubbing, and no edema Abdominal - Obese, Visible protrusions or hernias: No Incisions/scars: Healed, per patient Skin - abnormal lesions not visualized Motor - patient seen sitting with Normal appearing strength and coordination Assessment A/P: Normal post-OP course Patient Active Problem List Morbid obesity with BMI of 40.0-44.9, adult (HCC) Obesity, Class III, BMI >= 40 COVID-19 virus infection Onychomycosis Well adult exam Hx of gestational diabetes mellitus, not currently Morbid obesity (HCC) History of gestational hypertension 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[facility]) Resolved Hospital Problems No resolved problems to display. DISPOSITION: Return 1 month to Post-op follow up/ individual office visit EDUCATION: Encouraged to continue with healthy lifestyle changes and incorporate cardiovascular and resistance training, Discussed weight loss expectations after bariatric and metabolic surgery, Advised PT to avoid NSAIDs, smoking tobacco given increased risk of marginal ulcers, or Discussed importance of protein intake as per the RDN note REFERRALS: N/A LABS: Brenda Yost MD Advanced Laparoscopic & Bariatric Surgery Bariatric & Metabolic [place] [facility] documented in this encounter [facility] 08-31-2022 Miscellaneous Notes BMI SPECIALTY CARE COORDINATION POST-OP TELEPHONE CALL BMI Post Op Telephone Call Pt was called on the 7 day after discharge. DO YOU HAVE A COPY OF YOUR DISCHARGE INSTRUCTIONS YES Is there anything in your discharge instructions that you do not understand? YES Pain: tolerable. and taking Tylenol. On a scale of 0-10, 0 being not satisfied and 10 being very satisfied, how satisfied were you with your pain management strategy after surgery? 10 Patient instructed not to take any narcotic pain medications (such as Roxicodone) within three hours before bedtime as it may cause breathing difficulty. If you are having pain at bedtime you may take Tylenol (liquid form or two extra strength tablets). Phase 2 full liquid diet:: tolerating diet. and pt estimates 45 grams of protein and 50oz of fluid daily. Incisions: surgical glue intact GI: + BM and +flatus : WNL Medications: Taking as instructioned at discharge PPI and Zofran CPAP USE: No Remind patient of post op appt. Reminded patient of how to reach [facility] BMI or their surgeons office. Patient reminded to seek medical attention if they develop chest pain, a sudden onset of shortness of breath or persistent pain in the calf of their legs - BEST TO ALWAYS present to [facility] hospital where you had your surgery Patient verbalized understanding of all advice and instructions given. COVID-19 Symptoms: none . Sakshi Porter RN documented in this encounter [facility] 08-28-2022 Miscellaneous Notes [facility] SPECIALTY CARE COORDINATION TELEPHONE ENCOUNTER KVM with call back number to check on pt documented in this encounter [facility] 08-26-2022 Miscellaneous Notes BMI SPECIALTY CARE COORDINATION TELEPHONE ENCOUNTER 12:00 update Pt is going to get stat lab work drawn Pt called the phone line complaining about leg cramps and hurts to stand up in the back of her caves. She said when she drinks she has a sharp pain on the left side. The nurse told her to give it a couple days and it has not gone away yet. She can feel the difference of incisional pain and this pain when she drinks. She stated that the pain lasts for approx 5 minutes. I asked her does it happen when it is room temperature and she said yes it happens no matter what. I will advise and get back to her. documented in this encounter [facility] 08-22-2022 Note HNO ID: [id number] Author: Nova Moran MD Service: General Surgery Author Type: Resident Type: Progress Notes Filed: 08/22/2022 8:52 AM Note Text: GENERAL SURGERY PROGRESS NOTE Laina De León [id number] ASSESSMENT AND PLAN Laina De León is a 27 year old female with PMHx chiari malformation type II, gestational DM, gestational HTN who is now s/p robotic qcxs-[id number]-gastric bypass (08/21/2022). Patient doing well. Neuro/Pain: Tylenol, Oxy, Dilaudid Cardiac: No active issues Respiratory: Encourage incentive spirometry. Minimize use of supplemental O2. FEN/GI: Phase II diet, IVF, PPI, anti-emetics PRN Renal: Strict I/Os ID: No indication for abx Heme: No clinical evidence of bleeding Endo: No endocrine concerns Prophylaxis: DVT ppx: Lovenox 40mg Sub Q BID, OOB/ambulation, SCDs Dispo: Continue RNF, likely dc later today Plan to be discussed with Dr. Yost Nova Moran M.D. General Surgery PGY2 SUBJECTIVE: No acute events overnight. Pain improved. No nausea or vomiting. Tolerating phase II diet. Had ~2000 cc intake yesterday. Ambulated in hallway. Passing flatus. OBJECTIVE: BP 98/71 Pulse 74 Temp 37 ?C (98.6 ?F) (Oral) Resp 20 Ht 160 cm (5' 2.99 ) Wt 97.5 kg (214 lb 15.2 oz) LMP 07/30/2022 (Exact Date) SpO2 92% BMI 38.09 kg/m? GENERAL: Alert and oriented, no acute distress HEENT: Sclera non-icteric LUNGS: Non labored breathing on RA ABDOMEN: Soft, non-tender, non-distended WOUND: Clean, dry and intact without erythema, induration or drainage Labs: CBC, Coags, BMP, Mg, Phos Recent Labs 08/21/22 0509 WBC 11.82* HB 13.5 HCT 39.6 PLT 284 NA 139 K 3.2* CHLOR 102 CO2 20* BUN <2* CREAT 0.62 GLUC 90 CA 8.8 MG 1.7 P 2.2* Liver Function, Amylase, AND Lipase I/O past 24h: Intake/Output Summary (Last 24 hours) at 08/22/2022 0852 Last data filed at 08/22/2022 0608 Gross per 24 hour Intake 2320 ml Output 700 ml Net 1620 ml LDA: Lines, Drains, and Airways Line Duration Peripheral 08/20/22 0655 Assessment Short Left Forearm 22 Gauge 2 days Peripheral 08/20/22 0755 Left Hand 18 Gauge 2 days SURGERY/PROCEDURE: Procedure(s) and Anesthesia Type: * XI ROBOTIC LAPAROSCOPIC GASTRIC RESTRICTIVE SURG W/ BYPASS AND JOSE-EN-Y [facility] 08-21-2022 Note HNO ID: [id number] Author: Leann Martel RN Service: Care Management Author Type: Registered Nurse Type: Care Mgt Initial Assessment Filed: 08/21/2022 11:44 AM Note Text: CARE MANAGEMENT: ASSESSMENT AND DISCHARGE PLAN SERVICE DATE: August 21, 2022 SERVICE TIME: 1053 PCP: Shakeel Villasenor MD Primary Contact: Extended Emergency Contact Information Primary Emergency Contact: Cory De León Mobile Relation: Father Admission Status: Inpatient Insurance Provider: INESSA GARVEY MEDICAID OF [place] Discharge Planning requested by: Per Department Practice Potential Transition Plans No Services Indicated Advance Directives Current Advance Directive: None Laboratory Manager Attempted to Assist with AD Completion: Yes Action: Education Provided [place] of [place] Explained: [place] Given: No Reason Not Given: No placements necessary Discharge Planning Participant(s): Patient Patient/Family Comments: Caregiver Assessment: Caregiver is ready, willing and able to meet the patient's needs as recommended by the inter-professional team: No Caregiver needed Transport at Discharge: Transportation Arrangements: Car Destination: home Needs Prior to Discharge: Needs Prior to Discharge: None Post-Acute Discharge Plan: This patient has been screened for Care Management Transitional Planning Services. At this time, it does not appear this patient will require transition planning services. Should this change, and the patient require transition planning services during this admission, please contact assigned rn field case manager/transitional primary health care nurse. SIGNATURE: Leann Martel RN PATIENT NAME: Laina De León DATE: August 21, 2022 TIME: 10:53 AM CONTACT #: [phone] [facility] 08-21-2022 Note HNO ID: [id number] Author: Nova Moran MD Service: General Surgery Author Type: Resident Type: Progress Notes Filed: 08/21/2022 7:58 AM Note Text: GENERAL SURGERY PROGRESS NOTE Laina De León [id number] ASSESSMENT AND PLAN Laina De León is a 27 year old female with PMHx chiari malformation type II, gestational DM, gestational HTN who is now s/p robotic ealz-jd-z-gastric bypass (08/21/2022). Patient doing well. Neuro/Pain: Tylenol, Oxy, Dilaudid Cardiac: No active issues Respiratory: Encourage incentive spirometry. Minimize use of supplemental O2. FEN/GI: Phase II diet, IVF, PPI, anti-emetics PRN Renal: Strict I/Os ID: No indication for abx Heme: No clinical evidence of bleeding Endo: No endocrine concerns Prophylaxis: DVT ppx: Lovenox 40mg Sub Q BID, OOB/ambulation, SCDs Dispo: Continue RNF, likely dc later today Plan discussed with Dr. Yost Nova Moran M.D. General Surgery PGY2 SUBJECTIVE: No acute events overnight. Having crampy abdominal pin, No nausea or vomiting. Tolerating phase I diet. Not yet passing flatus. On her period. Ambulated to bathroom. OBJECTIVE: BP 121/70 Pulse 66 Temp 36.7 ?C (98.1 ?F) (Oral) Resp 19 Ht 160 cm (5' 2.99 ) Wt 97.5 kg (214 lb 15.2 oz) LMP 07/30/2022 (Exact Date) SpO2 95% BMI 38.09 kg/m? GENERAL: Alert and oriented, no acute distress HEENT: Sclera non-icteric LUNGS: Non labored breathing on RA ABDOMEN: Soft, non-tender, non-distended WOUND: Clean, dry and intact without erythema, induration or drainage Labs: CBC, Coags, BMP, Mg, Phos Recent Labs 08/21/22 0509 WBC 11.82* HB 13.5 HCT 39.6 PLT 284 NA 139 K 3.2* CHLOR 102 CO2 20* BUN <2* CREAT 0.62 GLUC 90 CA 8.8 MG 1.7 P 2.2* Liver Function, Amylase, AND Lipase I/O past 24h: Intake/Output Summary (Last 24 hours) at 08/21/2022 0751 Last data filed at 08/21/2022 0400 Gross per 24 hour Intake 2350 ml Output 620 ml Net 1730 ml LDA: Lines, Drains, and Airways Line Duration Peripheral 08/20/22 0655 Assessment Short Left Forearm 22 Gauge 1 day Peripheral 08/20/22 0755 Left Hand 18 Gauge <1 day SURGERY/PROCEDURE: Procedure(s) and Anesthesia Type: * XI ROBOTIC LAPAROSCOPIC GASTRIC RESTRICTIVE SURG W/ BYPASS AND JOSE-EN-Y [facility] documented as of this encounter (statuses as of 10/16/2022) [facility] History of Past illness Narrative* Problem Noted Date Diagnosed Date Resolved Date Morbid obesity with BMI of 40.0-44.9, adult 08/20/2022 10/16/2022 Obesity, Class III, BMI >= 40 08/04/2022 10/16/2022 Well adult exam 05/16/2020 10/16/2022 Overview: Last done: 05/16/20 Acute upper respiratory infection 06/29/2019 10/31/2019 Overview: 06/29/2019 Pt being tested for COVID19 - results pending. SW Morbid obesity 03/22/2019 10/16/2022 Last Assessment & Plan: -Body mass index is 40.88 kg/m . -scheduled for the surgery Polyhydramnios in third trimester 07/05/2018 08/05/2018 Overview: July 05, 2018 D/w her risks. NSTs weekly. Kick counts. PTL precuations. F/u weekly. Angie Mora MD Short interval between pregn ancies affecting , antepartum 06/15/2018 10/31/2019 Overview: 03/16/2019 Patient delivered her previous child 08/01/2018. TKRN Shortness of breath 06/15/2018 07/06/19 19 Abnormal glucose measurement 05/31/2018 08/05/2018 Overview: 05/31/2018 Elevated 1hr GTT. 03/17 elevated with 3hr GTT - 2hr was elevated to 209. Consider 3rd tri growth US. SW Rh negative state in antepartum period 01/17/2018 10/31/2019 Overview: 03/24/19-A negative will need Rhogam at 28 wks. Kimi Smith APRN.CNM Childhood asthma without complication 01/03/2018 10/31/2019 Overview: 01/03/2018 Not currently using Albuterol inhaler. Continue to monitor. No Hemabate. SW Bleeding in early 12/30/2017 06/21/2018 Overview: 12/30/2017 Patient was seen by Kimi Smith 12/22/2017 for bleeding in . She denies any bleeding since then. Miscarriage precautions given. Patient to call/come in of she develops any further bleeding, the development of pain or PRN problems. TKRN Patient request for diagnostic testing 12/30/2017 08/15/2019 Overview: 06/19/19-Declines aneuploidy screening. Kimi Smith APRN.CNM 03/16/2019. Patient desires nuchal ultrasound and genetic carrier screening testing. TKRN Mononucleosis 05/17/2013 06/21/2018 Tendonitis, Achilles, left 01/10/2013 0 06/21/2018 Lumbago 07/07/2011 06/21/2018 Spondylolysis of lumbar region 06/25/2011 10/31/2019 documented as of this encounter (statuses as of 11/02/2022) [facility]23 History of Past illness Narrative* Problem Noted Date Diagnosed Date Resolved Date Morbid obesity with BMI of 40.0-44.9, adult 08/20/2022 10/16/2022 Obesity, Class III, BMI >= 40 08/04/2022 10/16/2022 Well adult exam 05/16/2020 10/16/2022 Overview: Last done: 05/16/20 Acute upper respiratory infection 06/29/2019 10/31/2019 Overview: 06/29/2019 Pt being tested for COVID19 - results pending. SW Morbid obesity 03/22/2019 10/16/2022 Last Assessment & Plan: -Body mass index is 40.88 kg/m . -scheduled for the surgery Polyhydramnios in third trimester 07/05/2018 08/05/2018 Overview: July 05, 2018 D/w her risks. NSTs weekly. Kick counts. PTL precuations. F/u weekly. Angie Mora MD Short interval between pregn ancies affecting , antepartum 06/15/2018 10/31/2019 Overview: 03/16/2019 Patient delivered her previous child 08/01/2018. TKRN Shortness of breath 06/15/2018 07/06/19 19 Abnormal glucose measurement 05/31/2018 08/05/2018 Overview: 05/31/2018 Elevated 1hr GTT. 03/17 elevated with 3hr GTT - 2hr was elevated to 209. Consider 3rd tri growth US. SW Rh negative state in antepartum period 01/17/2018 10/31/2019 Overview: 03/24/19-A negative will need Rhogam at 28 wks. Kimi Smith APRN.CNM Childhood asthma without complication 01/03/2018 10/31/2019 Overview: 01/03/2018 Not currently using Albuterol inhaler. Continue to monitor. No Hemabate. SW Bleeding in early 12/30/2017 06/21/2018 Overview: 12/30/2017 Patient was seen by Kimi Smith 12/22/2017 for bleeding in . She denies any bleeding since then. Miscarriage precautions given. Patient to call/come in of she develops any further bleeding, the development of pain or PRN problems. TKRN Patient request for diagnostic testing 12/30/2017 08/15/2019 Overview: 06/19/19-Declines aneuploidy screening. Kimi Smith APRN.SAM 03/16/2019. Patient desires nuchal ultrasound and genetic carrier screening testing. TKRN Mononucleosis 05/17/2013 06/21/2018 Tendonitis, Achilles, left 01/10/2013 0 06/21/2018 Lumbago 07/07/2011 06/21/2018 Spondylolysis of lumbar region 06/25/2011 10/31/2019 documented as of this encounter (statuses as of 11/03/2022) [facility] History of Past illness Narrative* Problem Noted Date Diagnosed Date Resolved Date Morbid obesity with BMI of 40.0-44.9, adult 08/20/2022 10/16/2022 Obesity, Class III, BMI >= 40 08/04/2022 10/16/2022 Well adult exam 05/16/2020 10/16/2022 Overview: Last done: 05/16/20 Acute upper respiratory infection 06/29/2019 10/31/2019 Overview: 06/29/2019 Pt being tested for COVID19 - results pending. SW Morbid obesity 03/22/2019 10/16/2022 Last Assessment & Plan: -Body mass index is 40.88 kg/m . -scheduled for the surgery Polyhydramnios in third trimester 07/05/2018 08/05/2018 Overview: July 05, 2018 D/w her risks. NSTs weekly. Kick counts. PTL precuations. F/u weekly. Angie Mora MD Short interval between pregn ancies affecting , antepartum 06/15/2018 10/31/2019 Overview: 03/16/2019 Patient delivered her previous child 08/01/2018. TKRN Shortness of breath 06/15/2018 07/06/19 19 Abnormal glucose measurement 05/31/2018 08/05/2018 Overview: 05/31/2018 Elevated 1hr GTT. 03/17 elevated with 3hr GTT - 2hr was elevated to 209. Consider 3rd tri growth US. SW Rh negative state in antepartum period 01/17/2018 10/31/2019 Overview: 03/24/19-A negative will need Rhogam at 28 wks. Kimi Smith APRN.CNM Childhood asthma without complication 01/03/2018 10/31/2019 Overview: 01/03/2018 Not currently using Albuterol inhaler. Continue to monitor. No Hemabate. SW Bleeding in early 12/30/2017 06/21/2018 Overview: 12/30/2017 Patient was seen by Kimi Smith 12/22/2017 for bleeding in . She denies any bleeding since then. Miscarriage precautions given. Patient to call/come in of she develops any further bleeding, the development of pain or PRN problems. TKRN Patient request for diagnostic testing 12/30/2017 08/15/2019 Overview: 06/19/19-Declines aneuploidy screening. Kimi Smith APRN.SAM 03/16/2019. Patient desires nuchal ultrasound and genetic carrier screening testing. TKRN Mononucleosis 05/17/2013 06/21/2018 Tendonitis, Achilles, left 01/10/2013 0 06/21/2018 Lumbago 07/07/2011 06/21/2018 Spondylolysis of lumbar region 06/25/2011 10/31/2019 documented as of this encounter (statuses as of 11/06/2022) [facility] History of Past illness Narrative* Problem Noted Date Diagnosed Date Resolved Date Morbid obesity with BMI of 40.0-44.9, adult 08/20/2022 10/16/2022 Obesity, Class III, BMI >= 40 08/04/2022 10/16/2022 Well adult exam 05/16/2020 10/16/2022 Overview: Last done: 05/16/20 Acute upper respiratory infection 06/29/2019 10/31/2019 Overview: 06/29/2019 Pt being tested for COVID19 - results pending. SW Morbid obesity 03/22/2019 10/16/2022 Last Assessment & Plan: -Body mass index is 40.88 kg/m . -scheduled for the surgery Polyhydramnios in third trimester 07/05/2018 08/05/2018 Overview: July 05, 2018 D/w her risks. NSTs weekly. Kick counts. PTL precuations. F/u weekly. Angie Mora MD Short interval between pregn ancies affecting , antepartum 06/15/2018 10/31/2019 Overview: 03/16/2019 Patient delivered her previous child 08/01/2018. TKRN Shortness of breath 06/15/2018 07/06/19 19 Abnormal glucose measurement 05/31/2018 08/05/2018 Overview: 05/31/2018 Elevated 1hr GTT. 03/17 elevated with 3hr GTT - 2hr was elevated to 209. Consider 3rd tri growth US. SW Rh negative state in antepartum period 01/17/2018 10/31/2019 Overview: 03/24/19-A negative will need Rhogam at 28 wks. Kimi Smith APRN.SAM Childhood asthma without complication 01/03/2018 10/31/2019 Overview: 01/03/2018 Not currently using Albuterol inhaler. Continue to monitor. No Hemabate. SW Bleeding in early 12/30/2017 06/21/2018 Overview: 12/30/2017 Patient was seen by Kimi Smith 12/22/2017 for bleeding in . She denies any bleeding since then. Miscarriage precautions given. Patient to call/come in of she develops any further bleeding, the development of pain or PRN problems. TKRN Patient request for diagnostic testing 12/30/2017 08/15/2019 Overview: 06/19/19-Declines aneuploidy screening. Kimi Smith APRN.SAM 03/16/2019. Patient desires nuchal ultrasound and genetic carrier screening testing. TKRN Mononucleosis 05/17/2013 06/21/2018 Tendonitis, Achilles, left 01/10/2013 0 06/21/2018 Lumbago 07/07/2011 06/21/2018 Spondylolysis of lumbar region 06/25/2011 10/31/2019 documented as of this encounter (statuses as of 11/17/2022) [facility] History of Past illness Narrative* Problem Noted Date Diagnosed Date Resolved Date Morbid obesity with BMI of 40.0-44.9, adult 08/20/2022 10/16/2022 Obesity, Class III, BMI >= 40 08/04/2022 10/16/2022 Well adult exam 05/16/2020 10/16/2022 Overview: Last done: 05/16/20 Acute upper respiratory infection 06/29/2019 10/31/2019 Overview: 06/29/2019 Pt being tested for COVID19 - results pending. SW Morbid obesity 03/22/2019 10/16/2022 Last Assessment & Plan: -Body mass index is 40.88 kg/m . -scheduled for the surgery Polyhydramnios in third trimester 07/05/2018 08/05/2018 Overview: July 05, 2018 D/w her risks. NSTs weekly. Kick counts. PTL precuations. F/u weekly. Angie Mora MD Short interval between pregn ancies affecting , antepartum 06/15/2018 10/31/2019 Overview: 03/16/2019 Patient delivered her previous child 08/01/2018. TKRN Shortness of breath 06/15/2018 07/06/19 19 Abnormal glucose measurement 05/31/2018 08/05/2018 Overview: 05/31/2018 Elevated 1hr GTT. 03/17 elevated with 3hr GTT - 2hr was elevated to 209. Consider 3rd tri growth US. SW Rh negative state in antepartum period 01/17/2018 10/31/2019 Overview: 03/24/19-A negative will need Rhogam at 28 wks. Kimi Smith APRN.CNM Childhood asthma without complication 01/03/2018 10/31/2019 Overview: 01/03/2018 Not currently using Albuterol inhaler. Continue to monitor. No Hemabate. SW Bleeding in early 12/30/2017 06/21/2018 Overview: 12/30/2017 Patient was seen by Kimi Smith 12/22/2017 for bleeding in . She denies any bleeding since then. Miscarriage precautions given. Patient to call/come in of she develops any further bleeding, the development of pain or PRN problems. TKRN Patient request for diagnostic testing 12/30/2017 08/15/2019 Overview: 06/19/19-Declines aneuploidy screening. Kimi Smith APRN.SAM 03/16/2019. Patient desires nuchal ultrasound and genetic carrier screening testing. TKRN Mononucleosis 05/17/2013 06/21/2018 Tendonitis, Achilles, left 01/10/2013 0 06/21/2018 Lumbago 07/07/2011 06/21/2018 Spondylolysis of lumbar region 06/25/2011 10/31/2019 documented as of this encounter (statuses as of 11/20/2022) [facility] History of Past illness Narrative* Problem Noted Date Diagnosed Date Resolved Date Morbid obesity with BMI of 40.0-44.9, adult 08/20/2022 10/16/2022 Obesity, Class III, BMI >= 40 08/04/2022 10/16/2022 Well adult exam 05/16/2020 10/16/2022 Overview: Last done: 05/16/20 Acute upper respiratory infection 06/29/2019 10/31/2019 Overview: 06/29/2019 Pt being tested for COVID19 - results pending. SW Morbid obesity 03/22/2019 10/16/2022 Last Assessment & Plan: -Body mass index is 40.88 kg/m . -scheduled for the surgery Polyhydramnios in third trimester 07/05/2018 08/05/2018 Overview: July 05, 2018 D/w her risks. NSTs weekly. Kick counts. PTL precuations. F/u weekly. Angie Mora MD Short interval between pregn ancies affecting , antepartum 06/15/2018 10/31/2019 Overview: 03/16/2019 Patient delivered her previous child 08/01/2018. TKRN Shortness of breath 06/15/2018 07/06/19 19 Abnormal glucose measurement 05/31/2018 08/05/2018 Overview: 05/31/2018 Elevated 1hr GTT. 1/3 elevated with 3hr GTT - 2hr was elevated to 209. Consider 3rd tri growth US. SW Rh negative state in antepartum period 01/17/2018 10/31/2019 Overview: 03/24/19-A negative will need Rhogam at 28 wks. Kimi Smith APRN.SAM Childhood asthma without complication 01/03/2018 10/31/2019 Overview: 01/03/2018 Not currently using Albuterol inhaler. Continue to monitor. No Hemabate. SW Bleeding in early 12/30/2017 06/21/2018 Overview: 12/30/2017 Patient was seen by Kimi Smith 12/22/2017 for bleeding in . She denies any bleeding since then. Miscarriage precautions given. Patient to call/come in of she develops any further bleeding, the development of pain or PRN problems. TKRN Patient request for diagnostic testing 12/30/2017 08/15/2019 Overview: 06/19/19-Declines aneuploidy screening. Kimi Smith APRN.SAM 03/16/2019. Patient desires nuchal ultrasound and genetic carrier screening testing. TKRN Mononucleosis 05/17/2013 06/21/2018 Tendonitis, Achilles, left 01/10/2013 0 06/21/2018 Lumbago 07/07/2011 06/21/2018 Spondylolysis of lumbar region 06/25/2011 10/31/2019 documented as of this encounter (statuses as of 12/02/2022) [facility] History of Past illness Narrative* Problem Noted Date Diagnosed Date Resolved Date Morbid obesity with BMI of 40.0-44.9, adult 08/20/2022 10/16/2022 Obesity, Class III, BMI >= 40 08/04/2022 10/16/2022 Well adult exam 05/16/2020 10/16/2022 Overview: Last done: 05/16/20 Acute upper respiratory infection 06/29/2019 10/31/2019 Overview: 06/29/2019 Pt being tested for COVID19 - results pending. SW Morbid obesity 03/22/2019 10/16/2022 Last Assessment & Plan: -Body mass index is 40.88 kg/m . -scheduled for the surgery Polyhydramnios in third trimester 07/05/2018 08/05/2018 Overview: July 05, 2018 D/w her risks. NSTs weekly. Kick counts. PTL precuations. F/u weekly. Angie Mora MD Short interval between pregn ancies affecting , antepartum 06/15/2018 10/31/2019 Overview: 03/16/2019 Patient delivered her previous child 08/01/2018. TKRN Shortness of breath 06/15/2018 07/06/19 19 Abnormal glucose measurement 05/31/2018 08/05/2018 Overview: 05/31/2018 Elevated 1hr GTT. 03/17 elevated with 3hr GTT - 2hr was elevated to 209. Consider 3rd tri growth US. SW Rh negative state in antepartum period 01/17/2018 10/31/2019 Overview: 03/24/19-A negative will need Rhogam at 28 wks. Kimi Smith APRN.CNM Childhood asthma without complication 01/03/2018 10/31/2019 Overview: 01/03/2018 Not currently using Albuterol inhaler. Continue to monitor. No Hemabate. SW Bleeding in early 12/30/2017 06/21/2018 Overview: 12/30/2017 Patient was seen by Kimi Smith 12/22/2017 for bleeding in . She denies any bleeding since then. Miscarriage precautions given. Patient to call/come in of she develops any further bleeding, the development of pain or PRN problems. TKRN Patient request for diagnostic testing 12/30/2017 08/15/2019 Overview: 06/19/19-Declines aneuploidy screening. Kimi Smith APRN.CNM 03/16/2019. Patient desires nuchal ultrasound and genetic carrier screening testing. TKRN Mononucleosis 05/17/2013 06/21/2018 Tendonitis, Achilles, left 01/10/2013 0 06/21/2018 Lumbago 07/07/2011 06/21/2018 Spondylolysis of lumbar region 06/25/2011 10/31/2019 documented as of this encounter (statuses as of 12/18/2022) [facility] History of Past illness Narrative* Problem Noted Date Diagnosed Date Resolved Date Morbid obesity with BMI of 40.0-44.9, adult 08/20/2022 10/16/2022 Obesity, Class III, BMI >= 40 08/04/2022 10/16/2022 Well adult exam 05/16/2020 10/16/2022 Overview: Last done: 05/16/20 Acute upper respiratory infection 06/29/2019 10/31/2019 Overview: 06/29/2019 Pt being tested for COVID19 - results pending. SW Morbid obesity 03/22/2019 10/16/2022 Last Assessment & Plan: -Body mass index is 40.88 kg/m . -scheduled for the surgery Polyhydramnios in third trimester 07/05/2018 08/05/2018 Overview: July 05, 2018 D/w her risks. NSTs weekly. Kick counts. PTL precuations. F/u weekly. Angie Mora MD Short interval between pregn ancies affecting , antepartum 06/15/2018 10/31/2019 Overview: 03/16/2019 Patient delivered her previous child 08/01/2018. TKRN Shortness of breath 06/15/2018 07/06/19 19 Abnormal glucose measurement 05/31/2018 08/05/2018 Overview: 05/31/2018 Elevated 1hr GTT. 03/17 elevated with 3hr GTT - 2hr was elevated to 209. Consider 3rd tri growth US. SW Rh negative state in antepartum period 01/17/2018 10/31/2019 Overview: 03/24/19-A negative will need Rhogam at 28 wks. Kimi Smith APRN.SAM Childhood asthma without complication 01/03/2018 10/31/2019 Overview: 01/03/2018 Not currently using Albuterol inhaler. Continue to monitor. No Hemabate. SW Bleeding in early 12/30/2017 06/21/2018 Overview: 12/30/2017 Patient was seen by Kimi Smith 12/22/2017 for bleeding in . She denies any bleeding since then. Miscarriage precautions given. Patient to call/come in of she develops any further bleeding, the development of pain or PRN problems. TKRN Patient request for diagnostic testing 12/30/2017 08/15/2019 Overview: 06/19/19-Declines aneuploidy screening. Kimi Smith APRN.SAM 03/16/2019. Patient desires nuchal ultrasound and genetic carrier screening testing. TKRN Mononucleosis 05/17/2013 06/21/2018 Tendonitis, Achilles, left 01/10/2013 0 06/21/2018 Lumbago 07/07/2011 06/21/2018 Spondylolysis of lumbar region 06/25/2011 10/31/2019 documented as of this encounter (statuses as of 01/01/2023) [facility] History of Past illness Narrative* Problem Noted Date Diagnosed Date Resolved Date Morbid obesity with BMI of 40.0-44.9, adult 08/20/2022 10/16/2022 Obesity, Class III, BMI >= 40 08/04/2022 10/16/2022 Well adult exam 05/16/2020 10/16/2022 Overview: Last done: 05/16/20 Acute upper respiratory infection 06/29/2019 10/31/2019 Overview: 06/29/2019 Pt being tested for COVID19 - results pending. SW Morbid obesity 03/22/2019 10/16/2022 Last Assessment & Plan: -Body mass index is 40.88 kg/m . -scheduled for the surgery Polyhydramnios in third trimester 07/05/2018 08/05/2018 Overview: July 05, 2018 D/w her risks. NSTs weekly. Kick counts. PTL precuations. F/u weekly. Angie Mora MD Short interval between pregn ancies affecting , antepartum 06/15/2018 10/31/2019 Overview: 03/16/2019 Patient delivered her previous child 08/01/2018. TKRN Shortness of breath 06/15/2018 07/06/19 19 Abnormal glucose measurement 05/31/2018 08/05/2018 Overview: 05/31/2018 Elevated 1hr GTT. 03/17 elevated with 3hr GTT - 2hr was elevated to 209. Consider 3rd tri growth US. SW Rh negative state in antepartum period 01/17/2018 10/31/2019 Overview: 03/24/19-A negative will need Rhogam at 28 wks. Kimi Smith APRN.CNM Childhood asthma without complication 01/03/2018 10/31/2019 Overview: 01/03/2018 Not currently using Albuterol inhaler. Continue to monitor. No Hemabate. SW Bleeding in early 12/30/2017 06/21/2018 Overview: 12/30/2017 Patient was seen by Kimi Smith 12/22/2017 for bleeding in . She denies any bleeding since then. Miscarriage precautions given. Patient to call/come in of she develops any further bleeding, the development of pain or PRN problems. TKRN Patient request for diagnostic testing 12/30/2017 08/15/2019 Overview: 06/19/19-Declines aneuploidy screening. Kimi Smith APRN.CNM 03/16/2019. Patient desires nuchal ultrasound and genetic carrier screening testing. TKRN Mononucleosis 05/17/2013 06/21/2018 Tendonitis, Achilles, left 01/10/2013 0 06/21/2018 Lumbago 07/07/2011 06/21/2018 Spondylolysis of lumbar region 06/25/2011 10/31/2019 documented as of this encounter (statuses as of 01/05/2023) [facility] History of Past illness Narrative* Problem Noted Date Diagnosed Date Resolved Date Morbid obesity with BMI of 40.0-44.9, adult 08/20/2022 10/16/2022 Obesity, Class III, BMI >= 40 08/04/2022 10/16/2022 Well adult exam 05/16/2020 10/16/2022 Overview: Last done: 05/16/20 Acute upper respiratory infection 06/29/2019 10/31/2019 Overview: 06/29/2019 Pt being tested for COVID19 - results pending. SW Morbid obesity 03/22/2019 10/16/2022 Last Assessment & Plan: -Body mass index is 40.88 kg/m . -scheduled for the surgery Polyhydramnios in third trimester 07/05/2018 08/05/2018 Overview: July 05, 2018 D/w her risks. NSTs weekly. Kick counts. PTL precuations. F/u weekly. Angie Mora MD Short interval between pregn ancies affecting , antepartum 06/15/2018 10/31/2019 Overview: 03/16/2019 Patient delivered her previous child 08/01/2018. TKRN Shortness of breath 06/15/2018 07/06/19 19 Abnormal glucose measurement 05/31/2018 08/05/2018 Overview: 05/31/2018 Elevated 1hr GTT. 03/17 elevated with 3hr GTT - 2hr was elevated to 209. Consider 3rd tri growth US. SW Rh negative state in antepartum period 01/17/2018 10/31/2019 Overview: 03/24/19-A negative will need Rhogam at 28 wks. Kimi Smith APRN.CNM Childhood asthma without complication 01/03/2018 10/31/2019 Overview: 01/03/2018 Not currently using Albuterol inhaler. Continue to monitor. No Hemabate. SW Bleeding in early 12/30/2017 06/21/2018 Overview: 12/30/2017 Patient was seen by Kimi Smith 12/22/2017 for bleeding in . She denies any bleeding since then. Miscarriage precautions given. Patient to call/come in of she develops any further bleeding, the development of pain or PRN problems. TKRN Patient request for diagnostic testing 12/30/2017 08/15/2019 Overview: 06/19/19-Declines aneuploidy screening. Kimi Smith APRN.SAM 03/16/2019. Patient desires nuchal ultrasound and genetic carrier screening testing. TKRN Mononucleosis 05/17/2013 06/21/2018 Tendonitis, Achilles, left 01/10/2013 0 06/21/2018 Lumbago 07/07/2011 06/21/2018 Spondylolysis of lumbar region 06/25/2011 10/31/2019 documented as of this encounter (statuses as of 01/17/2023) [facility] History of Past illness Narrative* Problem Noted Date Diagnosed Date Resolved Date Morbid obesity with BMI of 40.0-44.9, adult 08/20/2022 10/16/2022 Obesity, Class III, BMI >= 40 08/04/2022 10/16/2022 COVID-19 virus infection 03/26/2021 Overview: 03/2021 Onychomycosis 11/29/2020 01/29/2023 Well adult exam 05/16/2020 10/16/2022 Overview: Last done: 05/16/20 Hx of gestational diabetes sandra contreras, not currently 05/16/2020 01/29/2023 Last Assessment & Plan: Assessment: resolved after Hemoglobin A1C (%) Date Value 05/16/2020 5.7 Acute upper respiratory infection 06/29/2019 10/31/2019 Overview: 06/29/2019 Pt being tested for COVID19 - results pending. SW Morbid obesity 03/22/2019 10/16/2022 Last Assessment & Plan: -Body mass index is 40.88 kg/m . -scheduled for the surgery Polyhydramnios in third trimester 07/05/2018 08/05/2018 Overview: July 05, 2018 D/w her risks. NSTs weekly. Kick counts. PTL precuations. F/u weekly. Angie Mora MD Short interval between pregn ancies affecting , antepartum 06/15/2018 10/31/2019 Overview: 03/16/2019 Patient delivered her previous child 08/01/2018. TKRN Shortness of breath 06/15/2018 07/06/19 19 Abnormal glucose measurement 05/31/2018 08/05/2018 Overview: 05/31/2018 Elevated 1hr GTT. 1/3 elevated with 3hr GTT - 2hr was elevated to 209. Consider 3rd tri growth US. SW Childhood asthma without complication 01/03/2018 10/31/2019 Overview: 01/03/2018 Not currently using Albuterol inhaler. Continue to monitor. No Hemabate. SW Bleeding in early 12/30/2017 06/21/2018 Overview: 12/30/2017 Patient was seen by Kimi Smith 12/22/2017 for bleeding in . She denies any bleeding since then. Miscarriage precautions given. Patient to call/come in of she develops any further bleeding, the development of pain or PRN problems. TKRN Patient request for diagnostic testing 12/30/2017 08/15/2019 Overview: 06/19/19-Declines aneuploidy screening. Kimi Smith APRN.SAM 03/16/2019. Patient desires nuchal ultrasound and genetic carrier screening testing. TKRN Mononucleosis 05/17/2013 06/21/2018 Tendonitis, Achilles, left 01/10/2013 0 06/21/2018 Lumbago 07/07/2011 06/21/2018 Spondylolysis of lumbar region 06/25/2011 10/31/2019 documented as of this encounter (statuses as of 01/29/2023) [facility] History of Past illness Narrative* Problem Noted Date Diagnosed Date Resolved Date Morbid obesity with BMI of 40.0-44.9, adult 08/20/2022 10/16/2022 Obesity, Class III, BMI >= 40 08/04/2022 10/16/2022 COVID-19 virus infection 03/26/2021 Overview: 03/2021 Onychomycosis 11/29/2020 01/29/2023 Well adult exam 05/16/2020 10/16/2022 Overview: Last done: 05/16/20 Hx of gestational diabetes sandra contreras, not currently 05/16/2020 01/29/2023 Last Assessment & Plan: Assessment: resolved after Hemoglobin A1C (%) Date Value 05/16/2020 5.7 Acute upper respiratory infection 06/29/2019 10/31/2019 Overview: 06/29/2019 Pt being tested for COVID19 - results pending. SW Morbid obesity 03/22/2019 10/16/2022 Last Assessment & Plan: -Body mass index is 40.88 kg/m . -scheduled for the surgery Polyhydramnios in third trimester 07/05/2018 08/05/2018 Overview: July 05, 2018 D/w her risks. NSTs weekly. Kick counts. PTL precuations. F/u weekly. Angie Mora MD Short interval between pregn ancies affecting , antepartum 06/15/2018 10/31/2019 Overview: 03/16/2019 Patient delivered her previous child 08/01/2018. TKRN Shortness of breath 06/15/2018 07/06/19 19 Abnormal glucose measurement 05/31/2018 08/05/2018 Overview: 05/31/2018 Elevated 1hr GTT. 03/17 elevated with 3hr GTT - 2hr was elevated to 209. Consider 3rd tri growth US. SW Childhood asthma without complication 01/03/2018 10/31/2019 Overview: 01/03/2018 Not currently using Albuterol inhaler. Continue to monitor. No Hemabate. SW Bleeding in early 12/30/2017 06/21/2018 Overview: 12/30/2017 Patient was seen by Kimi Smith 12/22/2017 for bleeding in . She denies any bleeding since then. Miscarriage precautions given. Patient to call/come in of she develops any further bleeding, the development of pain or PRN problems. TKRN Patient request for diagnostic testing 12/30/2017 08/15/2019 Overview: 06/19/19-Declines aneuploidy screening. Kimi Smith APRN.CNM 03/16/2019. Patient desires nuchal ultrasound and genetic carrier screening testing. TKRN Mononucleosis 05/17/2013 06/21/2018 Tendonitis, Achilles, left 01/10/2013 0 06/21/2018 Lumbago 07/07/2011 06/21/2018 Spondylolysis of lumbar region 06/25/2011 10/31/2019 documented as of this encounter (statuses as of 02/02/2023) [facility]06-08-2023 NoteHNO ID: [id number] Author: Zacarias Daniels APRN.EDGE BURNISHER Service: ? 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 EDGE BURNISHER: Zacarias Daniels APRN.EDGE BURNISHER Indications and Patient Condition Indications for airway management: anesthesia Preoxygenated: yes anesthesia circuit Method: sleep Difficult Mask: No Final Airway Details Final airway type: endotracheal airway Final Endotracheal Airway: ETT Cuffed: yes Successful intubation technique: video laryngoscopy Devices used: Atkinson Endotracheal tube insertion site: oral Blade: Tavares Blade size: #3 ETT size (mm): 7.0 Placement verified by: capnometry Cormack-Lehane Classification: grade I - full view of glottis Number of attempts at approach: 1 Airway not difficult SIGNATURE: Zacarias Daniels APRN.CRNA PATIENT NAME: Laina De León DATE: August 20, 2022 TIME: 8:03 AM [facility]: [id number] NoteHNO ID: [id number] Author: Kalpana Jean Baptiste RD Service: ? Author Type: Registered Dietitian Type: Progress Notes Filed: 08/11/2022 1:12 PM Note Text: his visit was performed virtually due to the COVID-19 epidemic as an effort to protect patients and minimize exposure. Consent from patient received to conduct visit virtually. This Team Access Model visit is a virtual GROUP encounter. It required patient-provider interaction for the medical decision making as documented below. I have communicated my name and active licensure. The patient?s identity and physical location were verified at the time of this visit. Either the patient or their legal personal banking representative has been informed of the risks and benefits of -- and alternatives to -- treatment through a remote evaluation and consents to proceed with the evaluation remotely. Patient reports weight (as measured by home scale) of 224 pounds. TOPIC: LIFE STYLE CHANGES: Pre-op weight loss surgery (RYGB): Diet and Exercise PROGRESS: Nutrition Intervention (date of last encounter 07/02/22): 1. Practice these: * Eat in this order protein first, vegetable and fruit second and whole grain carbohydrates last. * Separate eating and drinking by 30 minutes * Chew your food 20-30x per bite * Meals should last 30 minutes. 2. Fluids: 64 oz per day minimum No carbonation, no caffeine, no calories, no alcohol. Water, sugar free drink mix, decaf coffee and tea 3. Exercise: 150-250 minutes cardio/aerobic activity/week and 10-20 minutes strength/resistance training 2x per week 4. Protein: 77 g per day. Lean meats, fish, low fat dairy - cottage cheese, [place] yogurt, light yogurt, cheese, ricotta cheese, nuts, peanut butter, beans/legumes. Eat protein first at all meals. 5. Vitamins : Begin looking into Vitamins and Minerals (page 49 of your Bariatric Guide to Surgery Book) - OK to use a bariatric multivitamin: - Bariatric Fusion: multiple options- look on website www.bariatricfusion.com - Celebrate: multiple options- look on website Www.Kinteraebratevitamins.[employer] - Procare Health: 1 Multivitamin and Calcium Citrate twice a day (total of 7481-1993 mg/day) * take calcium citrate separately from Multivitamin with iron at least 2 hours apart and 4 hours apart from additional calcium www.[employer] - Bariatric Choice: 4 complete multivitamins (chewables) per day www.bariatricchoCircleCI.[employer] - Bariatric Advantage: 2 Multivitamins and 3 Calcium Citrate Chewables per day * take calcium citrate separately from Multivitamin with iron at least 2 hours apart and 4 hours apart from additional calcium www.bariatricadvantage.[employer] - [place]imelts Www.[employer] - Bariatric Pal www.bariatricpal.com B complex with at least 75 mg Thiamine during the 2 weeks. 6. Start the full liquid diet 2 weeks prior to surgery. No solid food. 64 oz per day fluid - 4 shakes per day (Isopure + 1/2 cup skim milk) 7. Advance your diet as tolerated after surgery- refer to book for each phase and examples. Begin after starting solid foods: Vitamin/minerals: (2) children's chewable Multivitamin complete (morning) OR (2) adult Chewable complete multivitamin, Iron supplement 45-60mg (morning), Vit B12 500 mcg sublingual pill or liquid (morning), and calcium citrate w/Vit D 600 mg at lunch and 600 mg at dinner. Additional 2000 IU Vit D3 daily, B complex with 75-100 mg Thiamine Pre-op goal weight: 224 lbs. CHANGES IN TREATMENT: Patient met goal(s): Yes Diagnosis: has not changed. Allergies: Cefdinir, Morphine, and Peanuts Medications: Current Outpatient Medications Medication Sig Dispense Refill Etonogestrel-Ethinyl Estradiol (NUVARING) 0.12-0.015 mg/24 hr vaginal ring Use 1 Each vaginally as directed. (Patient not taking: No sig reported) 1 Each 13 mv,calcium,min/iron/folic/vitK (ONE-A-DAY WOMEN'S COMPLETE ORAL) Take by mouth once daily. (Patient not taking: No sig reported) acetaminophen (TYLENOL) 325 mg tablet Take 650 mg by mouth every 6 hours as needed. (Patient not taking: No sig reported) No current facility-administered medications for this visit. (currently taking) ; Anthropometrics: Height: Last 1 Encounter Ht Readings: Date: Ht: 08/04/2022 160 cm (5' 3 ) Current weight: Last 1 Encounter Wt Readings: Date: Wt: 08/04/2022 104.7 kg (230 lb 12.8 oz) There is no height or weight on file to calculate BMI. Resting Metabolic Rate: 1756 Malnutrition Screening Significant unintentional weight loss? No Eating less than 75% of usual intake for more than 2 weeks? No Nutritional status: Educational materials provided: none this visit READINESS TO LEARN Cognitive ability: Alert and oriented Motivation to learn: Interested Family support: Unable to assess - Family not present Instruction provided to: Patient Patient learns best by: Multiple Methods Factors affecting learning: None Physical limitations affecting learning: None Lik (more content not included)...[facility]05-30-2023 Instructions* Patient Instructions* Kalpana Jean Baptiste, GAYATHRI - 08/11/2022 1:12 PM EDT Nutrition Intervention: Modify type and amount of intake at meals and snacks Practice these: * Eat in this order protein first, vegetable and fruit second and whole grain carbohydrates last. * Separate eating and drinking by 30 minutes * Chew your food 20-30x per bite * Meals should last 30 minutes. 2. Fluids: 64 oz per day minimum No carbonation, no caffeine, no calories, no alcohol. Water, sugarfree drink mix, decaf coffee and tea 3. Physical activity: 150-250 minutes cardio/aerobic activity/week and 10-20 minutes strength/resistance training 2x per week 4. Protein: 77 g per day. Lean meats, fish, low fat dairy - cottage cheese, [place]ayan yogurt, light yogurt, cheese, ricotta cheese, nuts, peanut butter, beans/legumes. Eat protein first at all meals. 5. Protein shakes: < 200 calories, < 30 g carbohydrates and > 15 g protein 6. Vitamins : Begin looking into Vitamins and Minerals (page 49 of your Bariatric Guide to Surgery Book) - OK to use a bariatric multivitamin: - Bariatric Fusion: multiple options- look on website www.bariatricfusion.com - Celebrate: multiple options- look on website Www.Kinteraebratevitamins.[employer] - Procare Health: 1 Multivitamin and Calcium Citrate twice a day (total of 1200- 1500 mg/day) * take calcium citrate separately from Multivitamin with iron at least 2 hours apart and 4 hours apart from additional calcium www.procareGlobal Care Quest.[employer] - Bariatric Choice: 4 complete multivitamins (chewable) per day Www.bariatricchoice.com - Bariatric Advantage: 2 Multivitamins and 3 Calcium Citrate Chewable per day * take calcium citrate separately from Multivitamin with iron at least 2 hours apart and 4 hours apart from additional calcium www.bariatricadVeltiage.[employer] B complex with at least 75 mg Thiamine during the 2 weeks. 7. Start the full liquid diet 2 weeks prior to surgery. No solid food. 64 oz per day fluid - 4 shakes per day (Isopure + 1/2 cup skim milk) OR trying 4 shakes per day (Isopure + 3/4 cup oat milk) 8. Advance your diet as tolerated after surgery. Phase 1-Clear liquid (in hospital only); Phase 2 Full liquids (protein shakes limited to 1/4c per meal, 1c fluids between meals), Phase 3 soft/pureed;high protein foods; Phase 4 high protein foods with added vegetables Begin after starting solid foods: Vitamin/minerals: (2) children's chewable Multivitamin complete (morning) OR (2) adult Centrum Chewable complete multivitamin, Iron supplement 18mg (morning), Vit B12 500 mcg sublingual pill or liquid (morning), and calcium citrate w/Vit D 600 mg at lunch and 600 mg at dinner. Additional 2000 IU Vit D3 daily, B complex with 75-100 mg Thiamine Nutrition Monitoring & Evaluation:Follow pre op diet and fluid guidelines Criteria: weight check Need for Follow up: 2 weeks post op documented in [facility] encounterSt[facility] History of Present illness Narrative* Kalpana Jean Baptiste, RD - 08/11/2022 12:45 PM EDT his visit was performed virtually due to the COVID-19 epidemic as an effort to protect patients andminimize exposure. Consent from patient received to conduct visit virtually. This Team Access Modelvisit is a virtual GROUP encounter. It required patient-provider interaction for the medical decision making as documented below. I have communicated my name and active licensure. The patient s identity and physical location wereverified at the time of this visit. Either the patient or their legal personal banking representative has been informed of the risks and benefits of -- and alternatives to -- treatment through a remote evaluation andconsents to proceed with the evaluation remotely. Patient reports weight (as measured by home scale) of 224 pounds. TOPIC: LIFE STYLE CHANGES: Pre-op weight loss surgery (RYGB): Diet and Exercise PROGRESS: Nutrition Intervention (date of last encounter 07/02/22): 1. Practice these: * Eat in this order protein first, vegetable and fruit second and whole grain carbohydrates last. * Separate eating and drinking by 30 minutes * Chew your food 20-30x per bite * Meals should last 30 minutes. 2. Fluids: 64 oz per day minimum No carbonation, no caffeine, no calories, no alcohol. Water, sugarfree drink mix, decaf coffee and tea 3. Exercise: 150-250 minutes cardio/aerobic activity/week and 10-20 minutes strength/resistance training 2x per week 4. Protein: 77 g per day. Lean meats, fish, low fat dairy - cottage cheese, [place] yogurt, light yogurt, cheese, ricotta cheese, nuts, peanut butter, beans/legumes. Eat protein first at all meals. 5. Vitamins : Begin looking into Vitamins and Minerals (page 49 of your Bariatric Guide to Surgery Book) - OK to use a bariatric multivitamin: - Bariatric Fusion: multiple options- look on website www.bariatricfusion.com - Celebrate: multiple options- look on website Www.celebratevitamins.com - Procare Health: 1 Multivitamin and Calcium Citrate twice a day (total of 1200- 1500 mg/day) * take calcium citrate separately from Multivitamin with iron at least 2 hours apart and 4 hours apart from additional calcium www.procarenow.[employer] - Bariatric Choice: 4 complete multivitamins (chewables) per day www.bariatricchoice.com - Bariatric Advantage: 2 Multivitamins and 3 Calcium Citrate Chewables per day * take calcium citrate separately from Multivitamin with iron at least 2 hours apart and 4 hours apart from additional calcium www.bariatricadvantage.com - [place]imelts Www.[employer] - Bariatric Pal www.bariatricpal.com B complex with at least 75 mg Thiamine during the 2 weeks. 6. Start the full liquid diet 2 weeks prior to surgery. No solid food. 64 oz per day fluid - 4 shakes per day (Isopure + 1/2 cup skim milk) 7. Advance your diet as tolerated after surgery- refer to book for each phase and examples. Begin after starting solid foods: Vitamin/minerals: (2) children's chewable Multivitamin complete (morning)OR (2) adult Chewable complete multivitamin, Iron supplement 45-60mg (morning), Vit B12 500 mcg sublingual pill or liquid (morning), and calcium citrate w/Vit D 600 mg at lunch and 600 mg at dinner. Additional 2000 IU Vit D3 daily, B complex with 75-100 mg Thiamine Pre-op goal weight: 224 lbs. CHANGES IN TREATMENT: Patient met goal(s): Yes Diagnosis: has not changed. Allergies: Cefdinir, Morphine, and Peanuts Medications: Current Outpatient Medications Medication Sig Dispense Refill Etonogestrel-Ethinyl Estradiol (NUVARING) 0.12-0.015 mg/24 hr vaginal ring Use 1 Each vaginally as directed. (Patient not taking: No sig reported) 1 Each 13 mv,calcium,min/iron/folic/vitK (ONE-A-DAY WOMEN'S COMPLETE ORAL) Take by mouth once daily. (Patientnot taking: No sig reported) acetaminophen (TYLENOL) 325 mg tablet Take 650 mg by mouth every 6 hours as needed. (Patient not taking: No sig reported) No current facility-administered medications for this visit. (currently taking) ; Anthropometrics: Height: Last 1 Encounter Ht Readings: Date: Ht: 08/04/2022 160 cm (5' 3 ) Current weight: Last 1 Encounter Wt Readings: Date: Wt: 08/04/2022 104.7 kg (230 lb 12.8 oz) There is no height or weight on file to calculate BMI. Resting Metabolic Rate: 1756 Malnutrition Screening Significant unintentional weight loss? No Eating less than 75% of usual intake for more than 2 weeks? No Nutritional status: Educational materials provided: none this visit READINESS TO LEARN Cognitive ability: Alert and oriented Motivation to learn: Interested Family support: Unable to assess - Family not present Instruction provided to: Patient Patient learns best by: Multiple Methods Factors affecting learning: None Physical limitations affecting learning: None Likelihood of Adherence: High Patient participated in preop bariatric surgery shared nutrition appointment. Patient participated actively in group. Patient with intolerance to the 5 protein shakes recommended for pre-op, started using Isopure with crystal light today and has been tolerating well. Isopure with 90 calories, 20 grams of protein, so will have to add milk/plant-based milk with powder to further meet calorie needs (800). Protein shake planned now is Isopure. Vitamin B complex with appropriate thiamine is being taken. Beverage choices include water, Propel Zero. PA includes being active with her kids. Nutrition Diagnosis: Overweight/obesity, related to, food/nutrition - related knowledge deficit, asevidenced by BMI above normative standard for age and gender. Nutrition Intervention: Modify type and amount of intake at meals and snacks Practice these: * Eat in this order protein first, vegetable and fruit second and whole grain carbohydrates last. * Separate eating and drinking by 30 minutes * Chew your food 20-30x per bite * Meals should last 30 minutes. 2. Fluids: 64 oz per day minimum No carbonation, no caffeine, no calories, no alcohol. Water, sugarfree drink mix, decaf coffee and tea 3. Physical activity: 150-250 minutes cardio/aerobic activity/week and 10-20 minutes strength/resistance training 2x per week 4. Protein: 77 g per day. Lean meats, fish, low fat dairy - cottage cheese, [place] yogurt, light yogurt, cheese, ricotta cheese, nuts, peanut butter, beans/legumes. Eat protein first at all meals. 5. Protein shakes: < 200 calories, < 30 g carbohydrates and > 15 g protein 6. Vitamins : Begin looking into Vitamins and Minerals (page 49 of your Bariatric Guide to Surgery Book) - OK to use a bariatric multivitamin: - Bariatric Fusion: multiple options- look on website www.bariatricfusion.com - Celebrate: multiple options- look on website Www.Kinteraebratevitamins.[employer] - [employer] Health: 1 Multivitamin and Calcium Citrate twice a day (total of 1200- 1500 mg/day) * take calcium citrate separately from Multivitamin with iron at least 2 hours apart and 4 hours apart from additional calcium www.[employer] - Bariatric Choice: 4 complete multivitamins (chewable) per day Www.bariatricCoverMe.[employer] - Bariatric Advantage: 2 Multivitamins and 3 Calcium Citrate Chewable per day * take calcium citrate separately from Multivitamin with iron at least 2 hours apart and 4 hours apart from additional calcium www.bariatricadvantage.[employer] B complex with at least 75 mg Thiamine during the 2 weeks. 7. Start the full liquid diet 2 weeks prior to surgery. No solid food. 64 oz per day fluid - 4 shakes per day (Isopure + 1/2 cup skim milk) OR trying 4 shakes per day (Isopure + 3/4 cup oat milk) 8. Advance your diet as tolerated after surgery. Phase 1-Clear liquid (in hospital only); Phase 2 Full liquids (protein shakes limited to 1/4c per meal, 1c fluids between meals), Phase 3 soft/pureed;high protein foods; Phase 4 high protein foods with added vegetables Begin after starting solid foods: Vitamin/minerals: (2) children's chewable Multivitamin complete (morning) OR (2) adult Centrum Chewable complete multivitamin, Iron supplement 18mg (morning), Vit B12 500 mcg sublingual pill or liquid (morning), and calcium citrate w/Vit D 600 mg at lunch and 600 mg at dinner. Additional 2000 IU Vit D3 daily, B complex with 75-100 mg Thiamine Nutrition Monitoring & Evaluation:Follow pre op diet and fluid guidelines Criteria: weight check Need for Follow up: 2 weeks post op Appointment Start Time: 12:45 pm Appointment End Time: 1:10 pm Time Spent on Consult: 25 minutes - Group Signed by: Kalpana Jean Baptiste RDN, SEBAS, MFBrando documented in this encounterSt. [facility] Miscellaneous Notes* Telephone Encounter - Sakshi Porter RN - 08/11/2022 11:44 AM EDT BMI SPECIALTY CARE COORDINATION TELEPHONE ENCOUNTER Dr Yost spoke with pt and gave her alternative ideas. I will check up on her in a couple days to see how she is tolerating the diet. documented in this encounterSt. [facility]05-30-2023 Miscellaneous Notes* Telephone Encounter - Sakshi Porter RN - 08/11/2022 10:38 AM EDT [facility] SPECIALTY CARE COORDINATION TELEPHONE ENCOUNTER Pt complains that she cannot tolerate any protein shake and has tried 6 of the, She stated that nutrition told her to try the mendez that have all the vitamins and calories/protein and she cannot tolerate them either. She vomits after all of them. I will talk to Dr. Yost and call her back. She was on hold with nutrition for 45 mins and then she called nursing. documented in this encounterSt. Mary'[facility]05-30-2023 Miscellaneous Notes* Telephone Encounter - Priya Kaminski RN - 08/11/2022 9:44 AM EDT Please see pt Priya Kaminski RN August 11, 2022 9:44 AM * Telephone Encounter - Patsy Polk - 08/11/2022 9:37 AM EDT Laina Chandana De León is calling Hannah Coto RD today with concern regarding request to speak to a nurse. She states that she has not been able to keep anything down. Going on day 6 today. No chief complaint on file. Patient has been identified by name and birthdate. Duration of symptoms: 6 days Person calling: self Call patient at: on cell [phone] (home) [phone] (cell) Was an appointment scheduled: Yes: Date/Time: today Closing statement: Symptom Call: Thank you for [facility], your call is very important. A nurse will call in approximately 2-4 hours during business hours. If this is an emergency, please contact 911. Patsy Pride documented in this encounterSt. Mary'[facility]05-23-2023 NoteHNO ID: [id number] Author: Brenda Yost MD Service: ? Author Type: Physician Type: Progress Notes Filed: 08/04/2022 9:13 AM Note Text: BARIATRIC SURGERY PREOPERATIVE VISIT NOTE SERVICE DATE: 08/04/2022 SUBJECTIVE: Preoperative visit Laina De León is a 27 year old female seen in Bariatric Surgery clinic today for their final preoperative assessment. WEIGHT Current BMI: Body mass index is 41.31 kg/m?. Last Wt 08/04/22 104.7 kg (230 lb 13.2 oz) Planned Procedure: Laparoscopic Jose en-Y Gastric Bypass PMH: anil malformation type II, gestational DM, gestational HTN PSH: lap maurisio Patient Active Problem List Obesity, Class III, BMI >= 40 COVID-19 virus infection Onychomycosis Well adult exam Hx of gestational diabetes mellitus, not currently Morbid obesity (HCC) History of gestational hypertension 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HCC) Resolved Hospital Problems No resolved problems to display. PAST MEDICAL HISTORY Diagnosis Date Anemia complicating , first trimester 03/24/2019 Asthma as a child Childhood asthma without complication 01/03/2018 01/03/2018 Not currently using Albuterol inhaler. Continue to monitor. No Hemabate. SW Concussion 2009 COVID-19 virus infection 03/26/202103/2021 Diet controlled gestational diabetes mellitus (GDM) in third trimester 08/16/2019 Gestational hypertension Hx of gestational diabetes mellitus, not currently 05/16/2020 Mononucleosis NEGATIVE MEDICAL HISTORY normal color vision PMH - PAST MEDICAL HISTORY OF slip disc Spondylolysis of lumbar region 06/25/2011 PAST SURGICAL HISTORY Procedure Laterality Date LAPAROSCOPY SURG CHOLECYSTECTOMY 08/30/2018 Cholecystectomy, lap Social History Tobacco Use Smoking status: Never Smokeless tobacco: Never Vaping Use Vaping Use: Never used Substance Use Topics Alcohol use: No Drug use: No ALLERGIES Allergen Reactions Cefdinir Vomiting Morphine Hives, Shortness of Breath given medication at [facility] ER and reacted Peanuts Swelling redness BMI PHYSICAL EXAM: General - Normal, healthy, cooperative, in no acute distress, obese Able to interact verbally by video conference Psych - ORIENTATION: normal to time place, person and situation Mood/Affect: AFFECT AND MOOD: Normal Head/Neuro - Normal size and shape Facial appearance normal Pulmonary - respiratory effort normal Cardiovascular - patient describes extremities normal, warm, no cyanosis,no clubbing, and no edema Abdominal - Obese, Visible protrusions or hernias: No Incisions/scars: Healed, Skin - abnormal lesions not visualized Motor - patient seen sitting with Normal appearing strength and coordination MEDICATIONS: Prior to Admission Medications: Etonogestrel-Ethinyl Estradiol (NUVARING) 0.12-0.015 mg/24 hr vaginal ring Use 1 Each vaginally as directed. (Patient not taking: No sig reported) mv,calcium,min/iron/folic/vitK (ONE-A-DAY WOMEN'S COMPLETE ORAL) Take by mouth once daily. (Patient not taking: No sig reported) acetaminophen (TYLENOL) 325 mg tablet Take 650 mg by mouth every 6 hours as needed. (Patient not taking: No sig reported) No current facility-administered medications for this visit. VISIT NOTE: This patient was seen in clinic today to obtain informed consent and discuss the details of their upcoming operation including the appropriate expectations for perioperative and postoperative care. In addition, preoperative and postoperative relevant prescriptions were provided and explained during this clinic visit. The consent discussion included the risks, benefits and anticipated outcomes of the procedure, the risks and benefits of the alternatives to the procedure, and the roles and tasks of the personnel to be involved. The patient had an opportunity to ask additional questions that were answered. The patient expressed that they understood. A consent form was signed today. SIGNATURE: Brenda Yost MD PATIENT NAME: Laina De León Advanced Laparoscopic AND Bariatric Surgery DATE: August 04, 2022 CSN: [id number] TIME: 8:55 [facility]04-20-2023 NoteHNO ID: [id number] Author: Hannah Coto RD Service: ? Author Type: Registered Dietitian Type: Progress Notes Filed: 07/02/2022 9:22 AM Note Text: Nutritional Therapy Re-Assessment Nutrition Diagnosis: Overweight/obesity, related to, decreased energy needs, as evidenced by BMI above normative standard for age and gender RECOMMENDED MALNUTRITION DIAGNOSIS: NO MALNUTRITION IDENTIFIED NUTRITION CARE PLAN: Nutrition Intervention 07/02/2022: Modify type and amount of food eaten at meals and snacks. 1. Practice these: * Eat in this order protein first, vegetable and fruit second and whole grain carbohydrates last. * Separate eating and drinking by 30 minutes * Chew your food 20-30x per bite * Meals should last 30 minutes. 2. Fluids: 64 oz per day minimum No carbonation, no caffeine, no calories, no alcohol. Water, sugar free drink mix, decaf coffee and tea 3. Exercise: 150-250 minutes cardio/aerobic activity/week and 10-20 minutes strength/resistance training 2x per week 4. Protein: 77 g per day. Lean meats, fish, low fat dairy - cottage cheese, [place]rugu[place] yogurt, light yogurt, cheese, ricotta cheese, nuts, peanut butter, beans/legumes. Eat protein first at all meals. 5. Vitamins : Begin looking into Vitamins and Minerals (page 49 of your Bariatric Guide to Surgery Book) - OK to use a bariatric multivitamin: - Bariatric Fusion: multiple options- look on website www.bariatricfusion.com - Celebrate: multiple options- look on website Www.Huoliratevitamins.[employer] - Procare Health: 1 Multivitamin and Calcium Citrate twice a day (total of 2597-5564 mg/day) * take calcium citrate separately from Multivitamin with iron at least 2 hours apart and 4 hours apart from additional calcium www.TripdaareGlobal Care Quest.[employer] - Bariatric Choice: 4 complete multivitamins (chewables) per day www.bariatricchoice.com - Bariatric Advantage: 2 Multivitamins and 3 Calcium Citrate Chewables per day * take calcium citrate separately from Multivitamin with iron at least 2 hours apart and 4 hours apart from additional calcium www.bariatricadvantage.com - Barimelts Www.barimelts.[employer] - Bariatric Pal www.bariatricpal.com B complex with at least 75 mg Thiamine during the 2 weeks. 6. Start the full liquid diet 2 weeks prior to surgery. No solid food. 64 oz per day fluid - 4 shakes per day (Isopure + 1/2 cup skim milk) 7. Advance your diet as tolerated after surgery- refer to book for each phase and examples. Begin after starting solid foods: Vitamin/minerals: (2) children's chewable Multivitamin complete (morning) OR (2) adult Chewable complete multivitamin, Iron supplement 45-60mg (morning), Vit B12 500 mcg sublingual pill or liquid (morning), and calcium citrate w/Vit D 600 mg at lunch and 600 mg at dinner. Additional 2000 IU Vit D3 daily, B complex with 75-100 mg Thiamine Pre-op goal weight: 224 lbs. Nutrition Monitoring AND Evaluation: 1-2# weight loss per week Need for Follow up: 2 weeks pre op PROGRESS: Interval History: Patient presents with desirable and intentional weight loss 11# since last visit. She continues to have consistent intake throughout the day and has trialed several protein shakes for pre op diet. Fluids remain adequate and appropriate and is foods and fluids accordingly. 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 At end of session, patient is able to identify pre op full liquid diet as well as all post op vitamins and diet phases. Anticipate good adherence to goals. The patient has been thoroughly evaluated and educated on good dietary practices and is capable of following these guidelines pre- and post surgically. From nutrition standpoint, the patient is cleared for weight loss surgery. If the patient desires, she may continue to follow up with the dietitian on a monthly basis until all surgical requirements are met. Nutrition Intervention 06/11/2022: Modify type and amount of food eaten at meals and snacks. Read Nutrition Guidelines section before next visit. 1. Continue to not skip meals. 2. Use protein shake 1x per day to replace any skipped meals or for breakfast 3. Use the Healthy Plate Method of portion control for lunch and dinner 4 oz lean meat (fish, chicken, pork tenderloin, turkey, seafood, eggs/cheese 1/2 plate non starchy vegetables (salad, greens, cabbage, spinach, brussel sprouts, broccoli, carrots, celery, peppers, green beans, cauliflower) 1 cup starch/starchy vegetables (corn, peas, reynolds beans, winter squash, sweet potato, rice, pasta, potato) 4. continue physical activity with a goal of 150 min of aerobic exercise per week. Include 2-3 days of strength exercises 2-3 times/week. 5. Drink 64 ounces per day water. Fluids should follow these guidelines: No carbonation, no caffeine, no calories, no alcohol- no eating and drinking at same time- separate foods and fluids by at least 20 minutes (more content not included)...[facility]04-20-2023 NoteEducation (BIANKA) GENETLAINA Chandana ([id number]) 1995 F CHT Date Time Provider Department 07/02/22 8:45 AM HANNAH COTO Reason for Visit: Patient Education [91] Reassessment [674] Cmt: Primary Visit Diagnosis:Body mass index 40.0-44.9, adult ([facility]) [Z68.41] Other Visit Diagnosis:Dietary counseling and surveillance [Z71.3] During your visit today, we recorded the following information about you: Height 1.592 m Allergies As of Date: 07/02/2022 Noted Allergy Reaction CEFDINIR 04/11/2012 11 - Vomiting MORPHINE 05/15/2013 4 - Hives 12 - Shortness of Breath Comments: given medication at [facility] and reacted PEANUTS 12/18/2014 7 - Swelling Comments: redness Date Reviewed: 07/02/2022 Reviewed by: Hannah Coto RD - Fully Assessed Prescriptions as of 07/02/2022 - Etonogestrel-Ethinyl Estradiol (NUVARING) 0.12-0.015 mg/24 hr vaginal ring Use 1 Each vaginally as directed. - mv,calcium,min/iron/folic/vitK (ONE-A-DAY WOMEN'S COMPLETE ORAL) Take by mouth once daily. - acetaminophen (TYLENOL) 325 mg tablet Take 650 mg by mouth every 6 hours as needed. Encounter Status:Closed by HANNAH COTO on 07/02/22[facility] 06-30-2022 NoteHNO ID: [id number] Author: Jamee Loyd PSYD Service: ? Author Type: Resident Type: Progress Notes Filed: 06/30/2022 12:53 PM Note Text: Attestation signed by Nickie Reynolds, PhD at 06/30/2022 12:54 PM Reviewed and confirmed. See specific supervision comments below. Nickie Reynolds, Ph.D. Psychologist [facility] EVALUATION DATE OF SERVICE: 06/30/2022 TIME OF SERVICE: 9:15AM-10:15AM - pt arrived approx. 15 mins. late for appointment. [facility]: [facility] CPT CODE: 14640 Psychiatric diagnostic evaluation BILLING CODE: ENDO OLIVIA [facility] [place] DATE OF FIRST SERVICE THIS CYCLE: 06/30/2022 SESSION #: 1 The patient signed the Informed Consent for Psychological Evaluation AND Care Form, and the [facility] care insurance benefits, fees for service, emergency procedures, and the limits of confidentiality that may pertain with any given case were discussed with the patient. Ms. De León was given a copy of the consent form. IDENTIFYING INFORMATION: Ms. Laina De León is a 27 year old female. She was referred by Dr. Yost. Ms. De León is seeking gastric bypass surgery for morbid obesity. COLLATERAL PARTIES PRESENT: Nickie Reynolds, PhD, BMI psychologist and mapping supervisor. MOTIVATION FOR SURGERY / UNDERSTANDING OF PROCEDURE / EXPECTATIONS: Ms. De León notes she is motivated for surgery by loss of energy, wanting to improve health for children, and wanting to feel better . The patient has a fair understanding of the surgery, risks, and benefits. She has talked with other people. Including her friend who have undergone the procedure. Pt stated that she initially started process in August 2021, but was traveling for work, which impacted her timeline. Specific areas of understanding that should be addressed include nutrition after surgery, risks associated with surgery, behavioral changes necessary, and knowledge regarding surgical procedure. The patient has not attended a weight loss surgery support group. The patient expects to lose 50 lbs. following surgery over 12-18 months. Other expectations include improvement in health, increased energy, reduction in pain, and being able to do more with my children. Educated patient regarding expected weight loss after surgical procedure and timeline of weight loss/surgery recovery. CAPACITY TO CONSENT: Ms. De León evidences the following concerns regarding capacity to consent: none noted. MEDICAL PROBLEMS ACTIVE PROBLEM LIST Chiari Malformation Type II (Hcc) History of Gestational Hypertension Morbid Obesity (Hcc) Well Adult Exam Hx of Gestational Diabetes Mellitus, Not Currently Onychomycosis Covid-19 Virus Infection Gallbladder removed Past surgeries? Yes. PAST SURGICAL HISTORY Procedure Laterality Date LAPAROSCOPY SURG CHOLECYSTECTOMY 08/30/2018 Cholecystectomy, lap History of psychological complications post-surgery? No MEDICATIONS Current Outpatient Medications Medication Sig Etonogestrel-Ethinyl Estradiol (NUVARING) 0.12-0.015 mg/24 hr vaginal ring Use 1 Each vaginally as directed. mv,calcium,min/iron/folic/vitK (ONE-A-DAY WOMEN'S COMPLETE ORAL) Take by mouth once daily. acetaminophen (TYLENOL) 325 mg tablet Take 650 mg by mouth every 6 hours as needed. No current facility-administered medications for this visit. Medications were reviewed with patient. ALLERGIES ALLERGIES Allergen Reactions Cefdinir Vomiting Morphine Hives, Shortness of Breath given medication at [facility] and reacted Peanuts Swelling redness EATING/WEIGHT HISTORY: Ms. De León was thin as a child. Her weight at age 19 was 170-180 lbs. 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 The patient denies a family history of obesity. The patient's current weight is 244 lbs. Her BMI is 43.76. The patient has tried weight loss strategies in the past including: meal kits (HelloFresh, Every Plate), watching what [she's] eating. The patient denies a history of laxative/diuretic use. The patient denies a history of vomiting to lose weight. The patient denies a history of an eating disorder. She has not had treatment for eating disorders in the past. The most pt has lost is ~2 lbs using dieting. Patient reports eating 3 meals/day, with 1 snack. The patient notes coffee/tea use of 0 cups/day. Soda pop usage is 0 per day - no caffeine since appointment on 06/11/22 Diet History: Taken from nutrition intake note from 06/11/[address] Breakfast - work 7:30- takes something with her- banana and baby bel cheese / fruit powder protein (more content not included)...[facility]03-30-2023 NoteEducation (BIANKA) LAINA DE LEÓN ([id number]) 1995 F T Date Time Provider Department 06/11/22 8:45 AM HANNAH COTO Reason for Visit: Patient Education [91] Assessment [673] Primary Visit Diagnosis:Body mass index 40.0-44.9, adult ([facility]) [Z68.41] Other Visit Diagnosis:Dietary counseling and surveillance [Z71.3] During your visit today, we recorded the following information about you: Weight Height 110.9 kg 1.592 m Allergies As of Date: 06/11/2022 Noted Allergy Reaction CEFDINIR 04/11/2012 11 - Vomiting MORPHINE 05/15/2013 4 - Hives 12 - Shortness of Breath Comments: given medication at [facility] and reacted PEANUTS 12/18/2014 7 - Swelling Comments: redness Date Reviewed: 06/11/2022 Reviewed by: Hannah Coto RD - Fully Assessed Prescriptions as of 06/11/2022 - Etonogestrel-Ethinyl Estradiol (NUVARING) 0.12-0.015 mg/24 hr vaginal ring Use 1 Each vaginally as directed. - mv,calcium,min/iron/folic/vitK (ONE-A-DAY WOMEN'S COMPLETE ORAL) Take by mouth once daily. - acetaminophen (TYLENOL) 325 mg tablet Take 650 mg by mouth every 6 hours as needed. Encounter Status:Closed by HANNAH COTO on 06/11/22[facility] 06-11-2022 NoteHNO ID: [id number] Author: Hannah Coto RD Service: ? Author Type: Registered Dietitian Type: Progress Notes Filed: 06/11/2022 9:59 AM Note Text: Nutrition Therapy Initial Assessment Nutrition Diagnosis: Overweight/obesity, related to, decreased energy needs, as evidenced by BMI above normative standard for age and gender. RECOMMENDED MALNUTRITION DIAGNOSIS: NO MALNUTRITION IDENTIFIED NUTRITION CARE PLAN Nutrition Intervention 06/11/2022: Modify type and amount of food eaten at meals and snacks. Read Nutrition Guidelines section before next visit. 1. Continue to not skip meals. 2. Use protein shake 1x per day to replace any skipped meals or for breakfast 3. Use the Healthy Plate Method of portion control for lunch and dinner 4 oz lean meat (fish, chicken, pork tenderloin, turkey, seafood, eggs/cheese 1/2 plate non starchy vegetables (salad, greens, cabbage, spinach, brussel sprouts, broccoli, carrots, celery, peppers, green beans, cauliflower) 1 cup starch/starchy vegetables (corn, peas, reynolds beans, winter squash, sweet potato, rice, pasta, potato) 4. continue physical activity with a goal of 150 min of aerobic exercise per week. Include 2-3 days of strength exercises 2-3 times/week. 5. Drink 64 ounces per day water. Fluids should follow these guidelines: No carbonation, no caffeine, no calories, no alcohol- no eating and drinking at same time- separate foods and fluids by at least 20 minutes. Goal weight pre-op is 224 lbs. Protein goal is 77 gm Nutrition Monitoring AND Evaluation: 1-2# weight loss per week Need for Follow up: 1 month Patient presents for initial nutrition consult to discuss initial consultation pre op RYGB (Dr. Yost). BMI 43.76, Class 3 obesity. No significant co morbidities included. Patient has basic understanding of the surgery and necessary changes needed to be made prior to surgery. Weight loss expectations are unknown; expecting to lose ? lbs (? %TBW). Motivation for surgery includes feeling better . Previous diet attempts include lower carb. Diet recall reveals consistent intake with all food groups represented and without significant calories coming from concentrated sweets or saturated fats. Patient is drinking all zero calorie beverages and is working towards goal. Physical activity includes walking 1- 1.5 miles daily at work and is planning on increasing with warmer weather. Overall, doing well. Anticipate adherence to pre agreed upon goals. [place] body weight is 141 lbs. Excess body weight is 92 lbs.(Based on initial weight 233# recorded by Dr. Yost 10/03/2021) Goal weight pre-op is 224 lbs. Protein goal is 77 gm (based on 1.2 gm/kg ideal body weight) Patient does meet National Institutes of Health guidelines for weight loss surgery, however would like to see more of an effort in making dietary changes before giving clearance. I anticipate at least 1 nutritional follow-up visits prior to clearance for surgery. Patient's symptoms are: Weight Concerns: failure to lose weight Diet History: Breakfast - work 7:30- takes something with her- banana and baby bel cheese Snack - fruit Lunch - 11:45- food delivered- [employer] (chicken/rice/veg) OR chicken, vegetable, water or propel/flavored water Snack - crackers and hummus, nuts Dinner - 6:30- does not eat out; skillet dinner with pasta/chicken/vegetables Snack - none Beverages - water, flavored water, propel, occasionally gatorade 0 Alcohol- none Vitamins/Supplements - mvi Activity: Activities of Daily Living: Active 50% of the day. 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 Resting Metabolic Rate: 1809 Malnutrition Screening Significant unintentional weight loss? No Eating less than 75% of usual intake for more than 2 weeks? No Potential Signs of Inflammation: no identifiable sources Education Materials Provided: BMI Nutrition Guidelines READINESS TO LEARN Cognitive ability: Alert and oriented Motivation to learn: Eager Interested Family support: Unable to assess - Family not present Instruction provided to: Patient Patient learns best by: Multiple Methods Factors affecting learning: None Physical limitations affecting learning: None Referred/Supervised by: Alex MNT Billing Type: Initial Assess/15 min 3 units SIGNATURE: Hannah Coto MS,RD,CSKELSEYM,LD PATIENT NAME: Laina De León DATE: June 09, 2022 TIME: 7:46 AM PAGER:[facility]03-21-2023 NoteHNO ID: [id number] Author: Lila Tobar LPN Service: ? Author Type: ? Type: Progress Notes Filed: 06/02/2022 9:10 AM Note Text: Patient presents for EKG per Cristy Platt CNP. Denies any problems at this time. Tolerated procedure well. Lila Tobar [facility]03-21-2023 NoteHNO ID: [id number] Author: RT Mirna(R) Service: ? Author Type: Glass Scullion Type: Progress Notes Filed: 06/02/2022 8:39 AM Note Text: Radiology Service Progress Note PATIENT NAME: Laina De León DATE OF SERVICE: June 02, 2022 TIME: 8:29 AM PATIENT IDENTITY VERIFICATION COMPLETED USING TWO (2) IDENTIFIERS: Name and Date of confirmed by patient verbally. FALL SCREENING: Has the patient had 2 falls in the last year or 1 fall with injury or currently using an Ambulatory Assistive Device (Walker, Cane, Wheelchair, Crutches, etc.)? No PATIENT GENDER DATA: Female. status: : No status: NO. PATIENT RELEVANT IMPLANT DATA REVIEWED: Yes RADIOLOGY DEPARTMENT: General X-ray: Exam(s) Completed: Chest X-Ray PERIPHERAL IV DATA: Not applicable SIGNED BY: RT Mirna(R) June 02, 2022 8:29 [facility]03-21-2023 History of Present illness Narrative* Lila Tobar LPN - 06/02/2022 9:09 AM EDT Patient presents for EKG per Cristy Platt CNP. Denies any problems at this time. Tolerated procedure well. Lila Tobar LPN [facility] NoteHNO ID: [id number] Author: Cristy Platt APRN.FLORECITA Service: ? Author Type: Nurse Practitioner Type: Progress Notes Filed: 05/28/2022 8:22 AM Note Text: BMI Obesity Medicine Initial Bariatric Surgery Consult May 28, 2022 Consultation requested by Kelly Can CNP for an opinion regarding Obesity. My final recommendations will be communicated back to the requesting physician by way of shared Medical record or letter to requesting physician via [place] mail. Patient Summary:: Laina De León is a 26 year old female who presents on May 28, 2022 for medical assessment of obesity. The patient is undecided on which surgical procedure to pursue with . Weight History: She reports no family history of obesity and adult onset weight gain. 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 Weight Graph: (please see graph scanned in chart) Obesigenic Medications: NO Diet: B: Fruit, yogurt L: Pack lunches, grilled chicken wrap D: Pasta dish Currently using every plate service Snacks: Fruits, pretzel chips Beverages: Water, propel Quality of diet: 24hr recall suggests healthy diet. Characterization of diet:Structured. History of eating disorders: negative Previous Obesity Treatments: Self directed exercise and dieting Portion control Caloric restriction Low carb dieting Exercise: Regular exercise: Walks 1-1.5 miles a day Previously had active job Barriers to regular exercise? None Stress test: no Functional Status: Do heavy work around the house, such as scrubbing floors, lifting or moving heavy furniture (8.00 METs) Patient denies any chest pain or undue shortness of breath with the above physical activity. ?Sleep: BRYSON NO ; CPAP NO Quality:adequate, Generally restful Weeder Thinner Work? NO STOP BANG 1. Snoring : Do you snore loudly (louder than talking, heard through closed doors)? NO 2. Tired : Do you often feel tired, fatigued, or sleepy during daytime? YES 3. Observed : Has anyone observed you stop breathing during your sleep? NO 4. Blood Pressure: Do you have or are you being treated for high blood pressure? NO 5. BMI : BMI more than 35 kg/m2? YES 6. Age : Age over 50 yr old? NO 7. Neck circumference: Neck circumference greater than 40 cm? NO 8. Gender : Gender male? NO STOP BANG Score 2, low ??Stress: Some Past Medical History PAST MEDICAL HISTORY Diagnosis Date Anemia complicating , first trimester 03/24/2019 Asthma as a child Childhood asthma without complication 01/03/2018 01/03/2018 Not currently using Albuterol inhaler. Continue to monitor. No Hemabate. SW Concussion 2009 COVID-19 virus infection 03/26/202103/2021 Diet controlled gestational diabetes mellitus (GDM) in third trimester 08/16/2019 Gestational hypertension Hx of gestational diabetes mellitus, not currently 05/16/2020 Mononucleosis NEGATIVE MEDICAL HISTORY normal color vision PMH - PAST MEDICAL HISTORY OF slip disc Spondylolysis of lumbar region 06/25/2011 No history of GA, COPD, asthma, peptic ulcer disease, dyslipidemia, hypothyroidism, HTN, cancer, DVT, PE, CVA, T2DM, gout, kidney stones, CKD, and smoking history Current Outpatient Medications on File Prior to Visit Medication Sig Etonogestrel-Ethinyl Estradiol (NUVARING) 0.12-0.015 mg/24 hr vaginal ring Use 1 Each vaginally as directed. mv,calcium,min/iron/folic/vitK (ONE-A-DAY WOMEN'S COMPLETE ORAL) Take by mouth once daily. acetaminophen (TYLENOL) 325 mg tablet Take 650 mg by mouth every 6 hours as needed. No current facility-administered medications on file prior to visit. ALLERGIES Allergen Reactions Cefdinir Vomiting Morphine Hives, Shortness of Breath given medication at [facility] and reacted Peanuts Swelling redness PAST SURGICAL HISTORY Procedure Laterality Date LAPAROSCOPY SURG CHOLECYSTECTOMY 08/30/2018 Cholecystectomy, lap Any problems with anesthesia with the above surgeries: No FAMILY HISTORY Problem Relation Age of Onset No Known Problems Mother No Known Problems Father No Known Problems Sister No Known Problems Sister Hypertension Paternal Grandmother Heart Paternal Grandfather No Known Problems Maternal Grandmother No Known Problems Maternal Grandfather Heart Other great g-father/Paternal Hypertension Other mgm/paternal side Thyroid Other MGGMo No Known Problems Daughter Social History Tobacco Use Smoking status: Never Smokeless tobacco: Never Vaping Use Vaping Use: Never used Substance Use Topics Alcohol use: No Drug use: No Review Of Systems Skin: negative Respiratory: No history of cough, hemoptysis, asthma, recent chest infection, wheezing Cardiovascular: No history of chest pain,palpitation,orthopnea,cynosis,pedel edema and +Gestati (more content not included)...[facility]03-16-2023 History of Present illness Narrative* Cristy Platt, CONCRETE MIXER.FLORECITA - 05/28/2022 7:59 AM EDT BMI Obesity Medicine Initial Bariatric Surgery Consult May 28, 2022 Consultation requested by Kelly Can CNP for an opinion regarding Obesity. My final recommendations will be communicated back to the requesting physician by way of shared Medical record or letterto requesting physician via [place] mail. Patient Summary:: Laina De León is a 26 year old female who presents on May 28, 2022 for medical assessment of obesity. The patient is undecided on which surgical procedure to pursue with . Weight History: She reports no family history of obesity and adult onset weight gain. 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 Weight Graph: (please see graph scanned in chart) Obesigenic Medications: NO Diet: B: Fruit, yogurt L: Pack lunches, grilled chicken wrap D: Pasta dish Currently using every plate service Snacks: Fruits, pretzel chips Beverages: Water, propel Quality of diet: 24hr recall suggests healthy diet. Characterization of diet:Structured. History of eating disorders: negative Previous Obesity Treatments: Self directed exercise and dieting Portion control Caloric restriction Low carb dieting Exercise: Regular exercise: Walks 1-1.5 miles a day Previously had active job Barriers to regular exercise? None Stress test: no Functional Status: Do heavy work around the house, such as scrubbing floors, lifting or moving heavy furniture (8.00 METs) Patient denies any chest pain or undue shortness of breath with the above physical activity. ?Sleep: BRYSON NO ; CPAP NO Quality:adequate, Generally restful Weeder Thinner Work? NO STOP BANG 1. Snoring : Do you snore loudly (louder than talking, heard through closed doors)? NO 2. Tired : Do you often feel tired, fatigued, or sleepy during daytime? YES 3. Observed : Has anyone observed you stop breathing during your sleep? NO 4. Blood Pressure: Do you have or are you being treated for high blood pressure? NO 5. BMI : BMI more than 35 kg/m2? YES 6. Age : Age over 50 yr old? NO 7. Neck circumference: Neck circumference greater than 40 cm? NO 8. Gender : Gender male? NO STOP BANG Score 2, low ??Stress: Some Past Medical History PAST MEDICAL HISTORY Diagnosis Date Anemia complicating , first trimester 03/24/2019 Asthma as a child Childhood asthma without complication 01/03/2018 01/03/2018 Not currently using Albuterol inhaler. Continue to monitor. No Hemabate. SW Concussion 2009 COVID-19 virus infection 03/26/202103/2021 Diet controlled gestational diabetes mellitus (GDM) in third trimester 08/16/2019 Gestational hypertension Hx of gestational diabetes mellitus, not currently 05/16/2020 Mononucleosis NEGATIVE MEDICAL HISTORY normal color vision PMH - PAST MEDICAL HISTORY OF slip disc Spondylolysis of lumbar region 06/25/2011 No history of GA, COPD, asthma, peptic ulcer disease, dyslipidemia, hypothyroidism, HTN, cancer, DVT, PE, CVA, T2DM, gout, kidney stones, CKD, and smoking history Current Outpatient Medications on File Prior to Visit Medication Sig Etonogestrel-Ethinyl Estradiol (NUVARING) 0.12-0.015 mg/24 hr vaginal ring Use 1 Each vaginally as directed. mv,calcium,min/iron/folic/vitK (ONE-A-DAY WOMEN'S COMPLETE ORAL) Take by mouth once daily. acetaminophen (TYLENOL) 325 mg tablet Take 650 mg by mouth every 6 hours as needed. No current facility-administered medications on file prior to visit. ALLERGIES Allergen Reactions Cefdinir Vomiting Morphine Hives, Shortness of Breath given medication at [facility] ER and reacted Peanuts Swelling redness PAST SURGICAL HISTORY Procedure Laterality Date LAPAROSCOPY SURG CHOLECYSTECTOMY 08/30/2018 Cholecystectomy, lap Any problems with anesthesia with the above surgeries: No FAMILY HISTORY Problem Relation Age of Onset No Known Problems Mother No Known Problems Father No Known Problems Sister No Known Problems Sister Hypertension Paternal Grandmother Heart Paternal Grandfather No Known Problems Maternal Grandmother No Known Problems Maternal Grandfather Heart Other great g-father/Paternal Hypertension Other mgm/paternal side Thyroid Other MGGMo No Known Problems Daughter Social History Tobacco Use Smoking status: Never Smokeless tobacco: Never Vaping Use Vaping Use: Never used Substance Use Topics Alcohol use: No Drug use: No Review Of Systems Skin: negative Respiratory: No history of cough, hemoptysis, asthma, recent chest infection, wheezing Cardiovascular: No history of chest pain,palpitation,orthopnea,cynosis,pedel edema and +GestationalHTN Gastrointestinal: No blood in stool, pain with BM, tarry stool, persistent diarrhea or constipations/p Cholecystectomy Genitourinary: No burning with urination, blood in urine or incontinence. Hematology/Lymphology Negative for prolonged bleeding, bruising easily or swollen nodes Musculoskeletal: negative Psychiatric: negative Endocrine: No history of thyroid disorder,diabetes,cold intolerance,heat,intolerance,polydypsia and+Gestational DM Neuro: No history of headaches, syncope, paralysis, seizures or tremors Physical Exam BP 126/74 Pulse 95 Resp 18 Wt 110 kg (242 lb 8 oz) LMP 09/23/2021 (Exact Date) BMI 43.42 kg/m BMI = Body mass index is 43.42 kg/m . HEENT:: Supple, no adenopathy; thyroid symmetric, normal size, no bruits Lungs: Lungs clear to auscultation. No wheezing, rhonchi, rales. Heart: RRR without murmur, gallop, or rubs. No ectopy Abdomen: Normal abdominal exam, Abdomen soft, non-tender. Bowel sounds normal. No masses, organomegaly Extremities: No clubbing, cyanosis, or edema. Skin: Skin color, texture, turgor normal, no suspicious rashes or lesions Impression Laina De León is a 26 year old female with Class III obesity She has the following metabolic complications of obesity N/A and other medical conditions as below. We reviewed principles of energy metabolism, caloric intake and expenditure, and rationale for treatment program. We discussed the importance of healthy lifestyle modification. She is a candidate for bariatric and metabolic surgery. she will be evaluated by our multidisciplinary team in preparation for surgery. : Recommend that she should not become for 18-24 months after surgery due to increased risks of micronutrient deficiency. I counseled her on the perioperative use of estrogen therapy, instructing her not to take oral estrogen (eg OCPs) one month before and one month after surgery due to increased VTE risk. We reviewed alternate forms of contraception and encouraged the patient to speak with her physician/provider to formulate a perioperative plan. If she is considering a Jose-en Y gastric bypass, I counseled her that oral methods of control may not be as effective after surgery and that they should consider alternate contraception to reduce the risk of . Patient Active Problem List COVID-19 virus infection Onychomycosis Well adult exam Hx of gestational diabetes mellitus, not currently Morbid obesity (HCC) History of gestational hypertension 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HCC) Resolved Hospital Problems No resolved problems to display. Plan Based on the severity and resistance of the obesity to more conservative weight loss approaches, I believe a surgical intervention is the best and most appropriate intervention. -She has a 0 month insurance requirement prior to surgery. -Reviewed BMI Nutritional Tips for Bariatric Surgery pamphlet -Encouraged the patient to improve physical activity. We discussed the benefits of both cardiovascular and strength exercises. -Discussed the importance of taking post-operative vitamins and reviewed vitamin levels ordered today. Patient understands that any variations of B vitamins or Vitamin D will be corrected pre-operatively. -Labs ordered today: See Epic -CXR, EKG order placed today I spent a total of 45 minutes on the date of the service which included preparing to see the patient, [id number] patient care, completing clinical documentation, obtaining and/or reviewing separately obtained history, performing a medically appropriate examination, counseling and educating the pat ient/family/caregiver, ordering medications, tests, or procedures, and independently interpreting results (not separately reported). Cristy Platt APRN.CNP documented in this encounterSt. [facility] NoteHNO ID: [id number] Author: Shakeel Guzmán APRN.CNP Service: ? Author Type: Nurse Practitioner Type: Progress Notes Filed: 05/11/2022 7:36 AM Note Text: Subjective HPI Nontoxic-appearing female presents to urgent care with a chief complaint of sore throat. Duration of symptoms 6 days. Associated symptoms sore throat, fever, , and headache. Some transient ear pain.highest recorded temperature 101. Has been afebrile for the last 24 hours. Patient states history of strep throat in the past with similar signs of symptoms. No sick contacts. Patient denies any trismus, inability to swallow, inability to handle secretions, decreased range of motion of neck, vomiting, abdominal pain, visual changes, acute headache, cough, pleuritic pain, or change in bowel or bladder habits. Past medical history prescription medication use allergies reviewed. .Patient presents with: Sore Throat: bilateral ear pain and headache x days PAST MEDICAL HISTORY Diagnosis Date Anemia complicating , first trimester 03/24/2019 Asthma as a child Childhood asthma without complication 01/03/2018 01/03/2018 Not currently using Albuterol inhaler. Continue to monitor. No Hemabate. SW Concussion 2009 COVID-19 virus infection 03/26/202103/2021 Diet controlled gestational diabetes mellitus (GDM) in third trimester 08/16/2019 Gestational hypertension Hx of gestational diabetes mellitus, not currently 05/16/2020 Mononucleosis NEGATIVE MEDICAL HISTORY normal color vision PMH - PAST MEDICAL HISTORY OF slip disc Spondylolysis of lumbar region 06/25/2011 PAST SURGICAL HISTORY Procedure Laterality Date LAPAROSCOPY SURG CHOLECYSTECTOMY 08/30/2018 Cholecystectomy, lap ALLERGIES Cefdinir, Morphine, and Peanuts MEDICATIONS Etonogestrel-Ethinyl Estradiol (NUVARING) 0.12-0.015 mg/24 hr vaginal ring Use 1 Each vaginally as directed. mv,calcium,min/iron/folic/vitK (ONE-A-DAY WOMEN'S COMPLETE ORAL) Take by mouth once daily. acetaminophen (TYLENOL) 325 mg tablet Take 650 mg by mouth every 6 hours as needed. FAMILY HISTORY Problem Relation Age of Onset No Known Problems Mother No Known Problems Father No Known Problems Sister No Known Problems Sister Hypertension Paternal Grandmother Heart Paternal Grandfather No Known Problems Maternal Grandmother No Known Problems Maternal Grandfather Heart Other great g-father/Paternal Hypertension Other mgm/paternal side Thyroid Other MGGMo No Known Problems Daughter Social History Tobacco Use Smoking status: Never Smokeless tobacco: Never Vaping Use Vaping Use: Never used Substance Use Topics Alcohol use: No Drug use: No BP 112/68 Pulse 108 Temp 36.9 ?C (98.4 ?F) Resp 16 Wt 108.9 kg (240 lb) LMP 09/23/2021 (Exact Date) SpO2 98% BMI 42.98 kg/m? Hr 91 Review of Systems Constitutional: Positive for fever. Negative for chills and malaise/fatigue. HENT: Positive for ear pain and sore throat. Negative for congestion, ear discharge and sinus pain. Eyes: Negative for blurred vision, pain, discharge and redness. Respiratory: Negative for cough, hemoptysis, sputum production, shortness of breath, wheezing and stridor. Cardiovascular: Negative for chest pain. Gastrointestinal: Negative for abdominal pain, diarrhea, nausea and vomiting. Musculoskeletal: Negative for myalgias. Skin: Negative for itching and rash. Neurological: Positive for headaches. Negative for dizziness. Objective Physical Exam Constitutional: General: She is not in acute distress. Appearance: She is not diaphoretic. HENT: Head: Normocephalic. Jaw: No trismus, tenderness, swelling or pain on movement. Right Ear: Tympanic membrane, ear canal and external ear normal. Left Ear: Tympanic membrane, ear canal and external ear normal. Mouth/Throat: Lips: [place]. Mouth: Mucous membranes are moist. Pharynx: Oropharynx is clear. Uvula midline. Posterior oropharyngeal erythema present. No pharyngeal swelling, oropharyngeal exudate or uvula swelling. Tonsils: No tonsillar exudate or tonsillar abscesses. 1+ on the right. 2+ on the left. Eyes: Conjunctiva/sclera: Conjunctivae normal. Pupils: Pupils are equal, round, and reactive to light. Cardiovascular: Rate and Rhythm: Normal rate and regular rhythm. Heart sounds: Normal heart sounds. Pulmonary: Effort: Pulmonary effort is normal. No tachypnea, accessory muscle usage or respiratory distress. Breath sounds: Normal breath sounds. No stridor. No wheezing, rhonchi or rales. Abdominal: Palpations: Abdomen is soft. Tenderness: There is no abdominal tenderness. Musculoskeletal: Cervical back: Normal range of motion and neck supple. No rigidity or tenderness. No pain with movement. Normal range of motion. Lymphadenopathy: Cervical: No cervical adenopathy. Skin: General: Skin is warm and dry. Neurological: Mental Status: She is alert and oriented to (more content not included)... [facility]07-22-2022 History of Present illness Narrative* Brenda Yost MD - 10/03/2021 10:00 AM EDT BARIATRIC H&P/PRE-OPERATIVE CONSULT SERVICE DATE: 10/03/2021 SERVICE TIME: 10AM PRIMARY CARE PHYSICIAN: Shakeel Villasenor MD Subjective Patient presents to discuss bariatric surgery options for weight loss. Patient referred by Dr. Can. CHIEF COMPLAINT: Discussion of surgical weight loss, morbid obesity HPI: Laina De León is a 26 year old female who presents on October 03, 2021 for surgical evaluation and treatment of obesity. The patient is interested in surgical weight management. Age at onset - early adult years. Rate of weight gain is described as gradual over years. She started gaining weight around the time of her first child (2018), continued when she was with her second in 2019. She doesn't have a goal weight in mind, she just wants to feel better and feel healthier. Maximum weight 235 (currently) Previous treatments include self-directed dieting. She doesn't feel like the weight comes off and if she does lose weight, it doesn't stay off. Heartburn/reflux: sometimes when she eats, not consistent, doesn't take meds. Happens less than once a week. NSAID use: none Smoking: no EtOH: very rarely DIET INTAKE: A lot of meat and veggies, doesn't like eating starchy stuff EXERCISE ACTIVITY: Patient walks a lot for work, maybe 8-10 miles a day (works for [employer]), feels that she doesn't lose weight even though she is pretty active, can exercise with minimal issues but sometimes becomes SOB FUNCTIONAL STATUS: Climb a flight of stairs or walk up a hill (5.50 METs) Significant Anesthesia Considerations: None PAST MEDICAL HISTORY Diagnosis Date Anemia complicating , first trimester 03/24/2019 Asthma as a child Childhood asthma without complication 01/03/2018 01/03/2018 Not currently using Albuterol inhaler. Continue to monitor. No Hemabate. SW Concussion 2009 COVID-19 virus infection 03/26/202103/2021 Diet controlled gestational diabetes mellitus (GDM) in third trimester 08/16/2019 Gestational hypertension Hx of gestational diabetes mellitus, not currently 05/16/2020 Mononucleosis NEGATIVE MEDICAL HISTORY normal color vision PMH - PAST MEDICAL HISTORY OF slip disc Spondylolysis of lumbar region 06/25/2011 PAST SURGICAL HISTORY Procedure Laterality Date LAPAROSCOPY SURG CHOLECYSTECTOMY 08/30/2018 Cholecystectomy, lap FAMILY HISTORY Problem Relation Age of Onset No Known Problems Mother No Known Problems Father No Known Problems Sister No Known Problems Sister Hypertension Paternal Grandmother Heart Paternal Grandfather No Known Problems Maternal Grandmother No Known Problems Maternal Grandfather Heart Other great g-father/Paternal Hypertension Other mgm/paternal side Thyroid Other MGGMo No Known Problems Daughter Social History Tobacco Use Smoking status: Never Smoker Smokeless tobacco: Never Used Vaping Use Vaping Use: Never used Substance Use Topics Alcohol use: No Drug use: No Current Outpatient Medications Medication Sig Etonogestrel-Ethinyl Estradiol (NUVARING) 0.12-0.015 mg/24 hr vaginal ring Use 1 Each vaginally as directed. mv,calcium,min/iron/folic/vitK (ONE-A-DAY WOMEN'S COMPLETE ORAL) Take by mouth once daily. acetaminophen (TYLENOL) 325 mg tablet Take 650 mg by mouth every 6 hours as needed. No current facility-administered medications for this visit. ALLERGIES Allergen Reactions Cefdinir Vomiting Morphine Hives, Shortness of Breath given medication at [facility] ER and reacted Peanuts Swelling redness REVIEW OF SYSTEMS: General: no fevers or chills Neuro: No history of stroke or neurological problems. Respiratory: No SOB or cough. No asthma. No snoring/BRYSON Cardiovascular: No HTN, no CHF or GA. GI: No abdominal pain. No reflux or heartburn. : No dysuria or hematuria. No kidney stones . Endocrine: Has not taken steroids within the past 30 days. No history of diabetes Hematology: No history of bleeding disorder. No h/o DVT or PE Oncology: No personal history of cancer. Psych: No anxiety or depression requiring medications Skin: No ecchymoses Objective PHYSICAL EXAM: Patient reported BP 120/82 Pulse 85 Ht 159.2 cm (5' 2.66 ) Wt 105.8 kg (233 lb 3.2 oz) LMP 09/23/2021 (Exact Date) BMI 41.76 kg/m General Normal, healthy, cooperative, in no acute distress, obese Able to interact verbally by video conference Psych ORIENTATION: normal to time place, person and situation Mood/Affect: AFFECT AND MOOD: Normal Head/Neuro Normal size and shape Facial appearance normal Pulmonary respiratory effort normal Cardiovascular patient describes extremities normal, warm, no cyanosis,no clubbing, and no edema Abdominal Obese, Visible protrusions or hernias: No Incisions/scars: Healed, lap maurisio incisions Skin abnormal lesions not visualized Motor patient seen sitting with Normal appearing strength and coordination DATA: Diagnostic tests reviewed for today's visit: Labs reviewed: cbc, bmp, lfts, hga1c Notes reviewed: joe longo, ingrid, jayson The following labs were reviewed: WBC (k/uL) Date Value 01/10/2021 8.02 RBC (m/uL) Date Value 01/10/2021 4.99 Hemoglobin (g/dL) Date Value 01/10/2021 13.5 Hematocrit (%) Date Value 01/10/2021 43.6 MCV (fL) Date Value 01/10/2021 87.4 MCH (pG) Date Value 01/10/2021 27.1 MCHC (g/dL) Date Value 01/10/2021 31.0 RDW-CV (%) Date Value 01/10/2021 12.4 Platelet Count (k/uL) Date Value 01/10/2021 393 MPV (fL) Date Value 01/10/2021 10.2 Glucose (mg/dL) Date Value 01/10/2021 85 BUN (mg/dL) Date Value 01/10/2021 12 Creatinine (mg/dL) Date Value 01/10/2021 0.57 (L) Sodium (mmol/L) Date Value 01/10/2021 138 Potassium (mmol/L) Date Value 01/10/2021 4.5 Chloride (mmol/L) Date Value 01/10/2021 102 CO2 (mmol/L) Date Value 01/10/2021 22 Protein, Total (g/dL) Date Value 01/10/2021 7.5 Albumin (g/dL) Date Value 01/10/2021 4.3 Calcium (mg/dL) Date Value 01/10/2021 9.5 Alkaline Phosphatase (U/L) Date Value 01/10/2021 123 Bilirubin, Total (mg/dL) Date Value 01/10/2021 0.2 AST (U/L) Date Value 01/10/2021 20 ALT (U/L) Date Value 01/10/2021 14 Glucose (mg/dL) Date Value 01/10/2021 85 Creatinine (mg/dL) Date Value 01/10/2021 0.57 Potassium (mmol/L) Date Value 01/10/2021 4.5 AST (U/L) Date Value 01/10/2021 20 ALT (U/L) Date Value 01/10/2021 14 Hemoglobin A1C (%) Date Value 05/16/2020 5.7 Total Cholesterol, Nonfasting (mg/dL) Date Value 05/16/2020 138 HDL Cholesterol, Nonfasting (mg/dL) Date Value 05/16/2020 46 ] LDL Cholesterol, Nonfasting (mg/dL) Date Value 05/16/2020 68 Triglycerides, Nonfasting (mg/dL) Date Value 05/16/2020 119 ] Hemoglobin A1C (%) Date Value 05/16/2020 5.7 Albumin (g/dL) Date Value 01/10/2021 4.3 Total Cholesterol, Nonfasting (mg/dL) Date Value 05/16/2020 138 HDL Cholesterol, Nonfasting (mg/dL) Date Value 05/16/2020 46 LDL Cholesterol, Nonfasting (mg/dL) Date Value 05/16/2020 68 Triglycerides, Nonfasting (mg/dL) Date Value 05/16/2020 119 ] Glucose (mg/dL) Date Value 01/10/2021 85 BUN (mg/dL) Date Value 01/10/2021 12 Creatinine (mg/dL) Date Value 01/10/2021 0.57 (L) Sodium (mmol/L) Date Value 01/10/2021 138 Potassium (mmol/L) Date Value 01/10/2021 4.5 Chloride (mmol/L) Date Value 01/10/2021 102 CO2 (mmol/L) Date Value 01/10/2021 22 Protein, Total (g/dL) Date Value 01/10/2021 7.5 Albumin (g/dL) Date Value 01/10/2021 4.3 Calcium (mg/dL) Date Value 01/10/2021 9.5 Alkaline Phosphatase (U/L) Date Value 01/10/2021 123 Bilirubin, Total (mg/dL) Date Value 01/10/2021 0.2 AST (U/L) Date Value 01/10/2021 20 ALT (U/L) Date Value 01/10/2021 14 WBC (k/uL) Date Value 01/10/2021 8.02 RBC (m/uL) Date Value 01/10/2021 4.99 Hemoglobin (g/dL) Date Value 01/10/2021 13.5 Hematocrit (%) Date Value 01/10/2021 43.6 MCV (fL) Date Value 01/10/2021 87.4 MCH (pG) Date Value 01/10/2021 27.1 MCHC (g/dL) Date Value 01/10/2021 31.0 RDW-CV (%) Date Value 01/10/2021 12.4 Platelet Count (k/uL) Date Value 01/10/2021 393 MPV (fL) Date Value 01/10/2021 10.2 PROBLEM LIST: Patient Active Problem List COVID-19 virus infection Onychomycosis Well adult exam Hx of gestational diabetes mellitus, not currently Morbid obesity (HCC) History of gestational hypertension 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HCC) Resolved Hospital Problems No resolved problems to display. Assessment/Plan Ms. De León is a 26 year old female referred to me for preoperative evaluation. IMPRESSION: Morbid obesity, BMI 41.8: - Patient is a good candidate for metabolic surgery based on NIH criteria. Had an extensive discussion regarding bariatric surgery, comparing and contrasting different procedures. - Patient is currently considering RYGB - Continue through BMI program - Reviewed principles of energy metabolism, caloric intake and expenditure, and rationale for treatment program. Also reinforced need for reduced calorie, low fat diet and increased physical activity. Information regarding potential postoperative complications, dietary and medical postoperative limitations, and potential cosmetic sequelae has been received by individual. SIGNATURE: Yokasta Manzo MD PATIENT NAME: Laina De León DATE: October 03, 2021 TIME: 10:16 AM Medical Decision Making: Problems: Moderate: 1+ chronic illnesses with change Data: Unique source(s) for external note(s) reviewed: 3+ Unique test result(s) reviewed: 2 Independent interpretation of test from other physician/QHCP Risk: High: Decision on elective major surgery w/ risk factors Medical Decision Making Level: 5 - High documented in this encounterSt. [facility] History of Present illness Narrative* Kayy PinonRAYMOND shen.AIRCRAFT ENGINE MECHANIC OVERHAUL - 08/22/2021 2:38 PM EDT Laina is a 26 year old who presents for an annual gynecologic exam without complaints. Menses: cycles every 21-25 days and 4-5 days of flow. Contraception: Nuva Ring HPV vaccine: Yes Last Pap: 01/11/2018 normal HPV: N/A History of abnormal pap: No Last mammogram: never Sexually active: Yes Patient concerns for STD exposure: No. 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 Continue to monitor. No Hemabate. SW Concussion 2010 COVID-19 virus infection 03/26/202103/2021 Diet controlled gestational diabetes mellitus (GDM) in third trimester 08/16/2019 Gestational hypertension Hx of gestational diabetes mellitus, not currently 05/16/2020 Mononucleosis NEGATIVE MEDICAL HISTORY normal color vision PMH - PAST MEDICAL HISTORY OF slip disc Spondylolysis of lumbar region 06/25/2011 PAST SURGICAL HISTORY Procedure Laterality Date LAPAROSCOPY SURG CHOLECYSTECTOMY 08/30/2018 Cholecystectomy, lap FAMILY HISTORY Problem Relation Age of Onset No Known Problems Mother No Known Problems Father No Known Problems Sister No Known Problems Sister Hypertension Paternal Grandmother Heart Paternal Grandfather No Known Problems Maternal Grandmother No Known Problems Maternal Grandfather Heart Other great g-father/Paternal Hypertension Other mgm/paternal side Thyroid Other MGGMo No Known Problems Daughter SOCIAL HISTORY Social History Tobacco Use Smoking status: Never Smoker Smokeless tobacco: Never Used Vaping Use Vaping Use: Never used Substance Use Topics Alcohol use: No Drug use: No REVIEW OF SYSTEMS Abdomen: No abdominal pain, nausea, vomiting, diarrhea, or constipation. No bloating, early satiety, indigestion, or increased flatulence. Bladder: No dysuria, gross hematuria, urinary frequency, urinary urgency, or incontinence. Breast: No breast lumps, nipple d/c, overlying skin changes, redness or skin retraction. Allergies and current medication updated:Yes EXAM: BP 116/70 Ht 5' 3.5 (1.61m) Wt 223 lb 9.6 oz (101.4kg) LMP 07/22/2021 BMI 38.98 kg/(m^2). GENERAL: pleasant, female in no apparent distress HEENT: Normocephalic, atraumatic, mucus membranes moist and no lesions NECK: Supple, full range of motion, no adenopathy and thyroid normal DERMATOLOGY: Normal, without lesions, non-icteric and non-hirsute BREAST: soft, non-tender, symmetric, no dominant mass, normal nipple-areolar complex, no lymphadenopathy and no nipple discharge CHEST: Normal inspiratory effort ABDOMEN: soft, non-tender and no masses PELVIC: external genitalia normal, normal Bartholin's glands, urethra, [place]'s glands, no vulvar lesions, no cervical lesions, physiologic discharge present, normal appearing perineal body and perianal region BIMANUAL: uterus normal size, shape and consistency, no adnexal masses and non-tender RECTOVAGINAL: deferred. NEURO: alert and oriented x3,exam grossly non-focal EXTREMITIES: normal ASSESSMENT/PLAN: 1) Health maintenance: Pap done with reflex HPV. Mammogram starting age 40. Nutrition, exercise and routine health maintenance exams reviewed. Calcium/Vitamin D supplementation information provided. 2) Contraception: Nuva Ring. Contraceptive options reviewed and information provided. 3) STD screening: Declined STD check. 4) Follow up one year or sooner as needed Kayy Longo APRN.CNP documented in this encounterSt. [facility] Miscellaneous Notes* Telephone Encounter - Kelly Can APRN.CNP - 08/18/2021 3:37 PM EDT Prescription sent for generic equivalent. The following approved medication requests have been transmitted electronically. Signed Prescriptions Disp Refills naltrexone-bupropion (CONTRAVE) 8-90 mg ER tablet 60 tablet 0 Sig: Take 1 tablet by mouth twice daily. Authorizing Provider: KELLY CAN APRN.CNP documented in this encounterSt. Mary'[facility]06-06-2022 Miscellaneous Notes* Telephone Encounter - Kelly Can APRN.CNP - 08/18/2021 1:34 PM EDT Discussed with patient last week about medications for weight loss. Would like to start Contrave. Will be seeing bariatric medicine in 4 weeks. Get labs in 3 months. The following approved medication requests have been transmitted electronically. Signed Prescriptions Disp Refills naltrexone-bupropion (CONTRAVE) 8-90 mg ER tablet 60 tablet 3 Sig: Take 1 tablet by mouth twice daily. Take 1 tablet daily for 1 week and then increase to 1 tablet BID. Authorizing Provider: KELLY CAN APRN.CNP * Telephone Encounter - Marla Valentine LPN - 08/18/2021 10:53 AM EDT Pt called and states she is returning your call and can be reached at [phone] after 12 pm today. Marla Valentine LPN documented in this encounterSt. Mary[facility]05-10-2022 Instructions* Patient Instructions* Kimi Jeffrey APRN.CNP - 07/22/2021 11:13 AM EDT Viral illness (primary encounter diagnosis) Nausea and vomiting, unspecified vomiting type You have been diagnosed with an illness caused by a virus. Antibiotics do not cure viral infections. If given when not needed, antibiotics can be harmful. The treatments described below will help youfeel better while your body's own defenses are fighting the virus. General Instructions: Drink extra water and juice. Use a cool mist vaporizer or saline nasal spray to relieve congestion. For Sore throats, use ice chips or sore throat spray; lozenges for older children and adults. Specific Medications: Fever, aches, ear pain: Use medicines according to the package instructions or as directed by your healthcare provider. Stop the medication when the symptoms get better. No follow-ups on file. documented in this encounterSt. Mary'[facility]05-10-2022 History of Present illness Narrative* Kimi Jeffrey APRN.FLORECITA - 07/22/2021 11:07 AM EDT This note was created using [employer]. Subjective Laina De León is a 26 year old female. 26 year old female Acute onset 07/16/21 citing she felt tired and slept 18 hours 07/17/21 states developed +body aches +fever + chills unable to tolerate PO +emesis +diarrhea + headache States immediately after eating anything. Denies cough or congestion. Denies accompanying URI sx. States she feels like she is getting worse. 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 States 21 month old recently ill, attends daycare. States that he is feeling better. States similarsymptoms. States she took Immodium and tylenol. The history is provided by the patient. No speech and language clinician was used. Illness The current episode started 5 to 7 days ago. The onset was sudden. The problem occurs continuously.The problem has been gradually worsening. The problem is mild. Nothing relieves the symptoms. Nothing aggravates the symptoms. Associated symptoms include a fever, diarrhea, nausea, vomiting, headaches and rhinorrhea. Pertinent negatives include no decreased vision, no double vision, no eye itching, no photophobia, no abdominal pain, no congestion, no ear discharge, no ear pain, no hearing loss, no mouth sores, no sore throat, no stridor, no neck pain, no cough, no wheezing, no rash, no eye discharge, no eye pain and no eye redness. She has been eating and drinking normally. Urine output has been normal. The last void occurred less than 6 hours ago. There were sick contacts at work. She hasreceived no recent medical care. PAST MEDICAL HISTORY Diagnosis Date Anemia complicating , first trimester 03/24/2019 Asthma as a child Childhood asthma without complication 01/03/2018 01/03/2018 Not currently using Albuterol inhaler. Continue to monitor. No Hemabate. SW Concussion 2009 COVID-19 virus infection 03/26/202103/2021 Diet controlled gestational diabetes mellitus (GDM) in third trimester 08/16/2019 Gestational hypertension Hx of gestational diabetes mellitus, not currently 05/16/2020 Mononucleosis NEGATIVE MEDICAL HISTORY normal color vision PMH - PAST MEDICAL HISTORY OF slip disc Spondylolysis of lumbar region 06/25/2011 PAST SURGICAL HISTORY Procedure Laterality Date LAPAROSCOPY SURG CHOLECYSTECTOMY 08/30/2018 Cholecystectomy, lap ALLERGIES Cefdinir, Morphine, and Peanuts MEDICATIONS mv,calcium,min/iron/folic/vitK (ONE-A-DAY WOMEN'S COMPLETE ORAL) Take by mouth once daily. acetaminophen (TYLENOL) 325 mg tablet Take 650 mg by mouth every 6 hours as needed. ondansetron orally disintegrating (ZOFRAN ODT) 4 mg disintegrating tablet Take 1 tablet by mouth every 6 hours as needed for nausea/vomiting. amitriptyline (ELAVIL) 10 mg tablet Take 1 tablet by mouth daily at bedtime. cholecalciferol, vitamin D3, (VITAMIN D3 ORAL) Take 2,000 Units by mouth once daily. cholecalciferol, Vitamin D3, (VITAMIN D3) 1,250 mcg (50,000 unit) cap capsule Take 1 capsule by mouth one time a week. Etonogestrel-Ethinyl Estradiol (NUVARING) 0.12-0.015 mg/24 hr vaginal ring Use 1 Each vaginally as directed. FAMILY HISTORY Problem Relation Age of Onset No Known Problems Mother No Known Problems Father No Known Problems Sister No Known Problems Sister Hypertension Paternal Grandmother Heart Paternal Grandfather No Known Problems Maternal Grandmother No Known Problems Maternal Grandfather Heart Other great g-father/Paternal Hypertension Other mgm/paternal side Thyroid Other MGGMo No Known Problems Daughter Social History Tobacco Use Smoking status: Never Smoker Smokeless tobacco: Never Used Vaping Use Vaping Use: Never used Substance Use Topics Alcohol use: No Drug use: No Review of Systems Constitutional: Positive for fatigue and fever. Negative for activity change, appetite change and chills. HENT: Positive for rhinorrhea. Negative for congestion, ear discharge, ear pain, hearing loss, mouth sores, sinus pressure, sinus pain, sneezing and sore throat. Eyes: Negative for double vision, photophobia, pain, discharge, redness and itching. Respiratory: Negative for apnea, cough, chest tightness, wheezing and stridor. Cardiovascular: Negative for chest pain, palpitations and leg swelling. Gastrointestinal: Positive for diarrhea, nausea and vomiting. Negative for abdominal pain. Musculoskeletal: Negative for arthralgias, back pain and neck pain. Skin: Negative for color change, pallor and rash. Allergic/Immunologic: Negative for environmental allergies, food allergies and immunocompromised state. Neurological: Positive for headaches. Negative for dizziness, seizures, facial asymmetry, light-headedness and numbness. Hematological: Negative for adenopathy. Does not bruise/bleed easily. Psychiatric/Behavioral: Negative for agitation and behavioral problems. Objective BP 122/74 Pulse 98 Temp 36.4 C (97.5 F) Resp 16 Wt 103.4 kg (228 lb) LMP 12/24/2020 (Approximate) SpO2 99% BMI 40.39 kg/m Physical Exam Vitals and nursing note reviewed. Constitutional: General: She is not in acute distress. Appearance: Normal appearance. She is normal weight. She is not ill-appearing, toxic-appearing or diaphoretic. HENT: Head: Normocephalic and atraumatic. Right Ear: Ear canal and external ear normal. Left Ear: Ear canal and external ear normal. Nose: Nose normal. No congestion or rhinorrhea. Mouth/Throat: Mouth: Mucous membranes are moist. Pharynx: No oropharyngeal exudate or posterior oropharyngeal erythema. Eyes: General: Right eye: No discharge. Left eye: No discharge. Extraocular Movements: Extraocular movements intact. Conjunctiva/sclera: Conjunctivae normal. Pupils: Pupils are equal, round, and reactive to light. Cardiovascular: Rate and Rhythm: Normal rate and regular rhythm. Pulses: Normal pulses. Heart sounds: Normal heart sounds. No murmur heard. No friction rub. Pulmonary: Effort: Pulmonary effort is normal. No respiratory distress. Breath sounds: Normal breath sounds. No stridor. No wheezing, rhonchi or rales. Chest: Chest wall: No tenderness. Abdominal: General: Abdomen is flat. There is no distension. Palpations: Abdomen is soft. There is no mass. Tenderness: There is no abdominal tenderness (generalized mild abdominal TTP ). There is no right CVA tenderness, left CVA tenderness, guarding or rebound. Hernia: No hernia is present. Musculoskeletal: General: No swelling, tenderness, deformity or signs of injury. Normal range of motion. Cervical back: Normal range of motion and neck supple. No rigidity. Right lower leg: No edema. Left lower leg: No edema. Lymphadenopathy: Cervical: No cervical adenopathy. Skin: General: Skin is warm and dry. Coloration: Skin is not jaundiced or pale. Findings: No bruising, erythema, lesion or rash. Neurological: General: No focal deficit present. Mental Status: She is alert and oriented to person, place, and time. Cranial Nerves: No cranial nerve deficit. Sensory: No sensory deficit. Motor: No weakness. Coordination: Coordination normal. Gait: Gait normal. Psychiatric: Mood and Affect: Mood normal. Behavior: Behavior normal. Thought Content: Thought content normal. Judgment: Judgment normal. Assessment and Plan ASSESSMENT/PLAN: 1. Viral illness - ICD9: 079.99, ICD10: B34.9 (primary diagnosis) - Discussed viral etiology and rationale for treatment. - Symptomatic treatment with prn analgesia - Supportive care with fluids and rest - The patient may also use OTC cough and cold meds as needed, warm salt water gargles, throat lozenges and/or OTC throat spray as needed and nasal saline gtts and suction prn. - Follow up in 3-5 days if symptoms persist or sooner if worsening of symptoms - COVID WITH FLUA+B, ROUTINE - ONDANSETRON 4 MG DISINTEGRATING TABLET 2. Nausea and vomiting, unspecified vomiting type - ICD9: 787.01, ICD10: R11.2 X 4 days Likely related to viral illness No red flags Hemodynamically stable Will cover with Zofran here in clinic, RX for same - COVID WITH FLUA+B, ROUTINE-obtained BRAT diet Follow up with Dr. Villasenor if symptoms persist - ONDANSETRON 4 MG DISINTEGRATING TABLET Kimi Jeffrey APRN.FLORECITA documented in this encounterSt. [facility]09-[facility]21 NoteHNO ID: [id number] Author: Bekah Momin DPM Service: Podiatry Author Type: Resident Type: Progress Notes Filed: 12/02/2020 2:00 PM Note Text: Attestation signed by Kevin Funes at 12/02/2020 10:30 PM I was present and agree with resident note Kevin Funes DPM PODIATRIC PRE-OPERATIVE NOTE SERVICE DATE: 12/02/2020 SERVICE TIME: 1:58 PM DIAGNOSIS: Dystrophic left third toenail PROCEDURE(S): Left third toenail removal via chemical matrixectomy Consent on chart: Yes LABS: CBC: WBC 6.68 05/16/2020 Hemoglobin 14.0 05/16/2020 Hematocrit 46.1 05/16/2020 Platelet Count 357 05/16/2020 CMP: Sodium 141 05/16/2020 Potassium 4.1 05/16/2020 BUN 9 05/16/2020 Creatinine 0.66 05/16/2020 Glucose 92 05/16/2020 COAGS: No results found for this basename: aptt,inr URINALYSIS: Ketones, Urine NEG 09/10/2015 Nitrites NEG 09/10/2015 Specific [place], Ur >=1.030 08/30/2018 Protein, Urine trace 10/16/2019 Leukocytes NEG 09/10/2015 Type AND screen: No Medical Clearance: Yes CXR/EKG: N/A Medications/Preop Antibiotics: Ancef ALLERGIES Allergen Reactions - Cefdinir Vomiting - Morphine Hives, Shortness of Breath given medication at [facility] ER and reacted - Peanuts Swelling redness Surgical site identified: Yes NPO: Yes IV Fluids: Yes Risks and benefits, complications, treatment options, expected outcome and rehabilitation explained, patient understands. All questions were entertained and answered. Patient wishes to proceed with above procedure(s). SIGNATURE: Bekah Momin DPM PATIENT NAME: Laina De León DATE: December 02, 2020 TIME: 1:58 PM PAGER:[facility] [phone] History of Past illness Narrative * Problem Noted Date Resolved Date Acute upper respiratory infection 06/29/2019 10/31/2019 Overview: 06/29/2019 Pt being tested for COVID19 - results pending. SW Polyhydramnios in third trimester 07/05/2018 08/05/2018 Overview: July 05, 2018 D/w her risks. NSTs weekly. Kick counts. PTL precuations. F/u weekly. Angie Mora MD Short interval between pregn ancies affecting , antepartum 06/15/2018 10/31/2019 Overview: 03/16/2019 Patient delivered her previous child 08/01/2018. TKRN Shortness of breath 06/15/2018 07/05/2018 Abnormal glucose measurement 05/31/2018 Overview: 05/31/2018 Elevated 1hr GTT. 03/17 elevated with 3hr GTT - 2hr was elevated to 209. Consider 3rd tri growth US. SW Rh negative state in antepartum period 8 10/31/2019 Overview: 03/24/19-A negative will need Rhogam at 28 wks. Kimi Smith APRN.CNM Childhood asthma without complication 01/03/2018 10/31/2019 Overview: 01/03/2018 Not currently using Albuterol inhaler. Continue to monitor. No Hemabate. SW Bleeding in early 12/30/2017 04/0 11/2018 Overview: 12/30/2017 Patient was seen by Kimi Smith 12/22/2017 for bleeding in . She denies any bleeding since then. Miscarriage precautions given. Patient to call/come in of she develops any further bleeding, the development of pain or PRN problems. TKRN Patient request for diagnostic testing 8 08/15/2019 Overview: 06/19/19-Declines aneuploidy screening. Kimi Smith APRN.SAM 03/16/2019. Patient desires nuchal ultrasound and genetic carrier screening testing. TKRN Mononucleosis 05/17/2013 06/21/2018 Tendonitis, Achilles, left 01/10/201306/21 Lumbago 07/07/2011 06/21/2018 Spondylolysis of lumbar region 06/25/2011 0 10/31/2019 documented as of this encounter (statuses as of 07/22/2021) [facility] of Past illness Narrative* Problem Noted Date Resolved Date Acute upper respiratory infection 06/29/2019 10/31/2019 Overview: 06/29/2019 Pt being tested for COVID19 - results pending. SW Polyhydramnios in third trimester 07/05/2018 08/05/2018 Overview: July 05, 2018 D/w her risks. NSTs weekly. Kick counts. PTL precuations. F/u weekly. Angie Mora MD Short interval between pregn ancies affecting , antepartum 06/15/2018 10/31/2019 Overview: 03/16/2019 Patient delivered her previous child 08/01/2018. TKRN Shortness of breath 06/15/2018 07/05/2018 Abnormal glucose measurement 05/31/2018 Overview: 05/31/2018 Elevated 1hr GTT. 03/17 elevated with 3hr GTT - 2hr was elevated to 209. Consider 3rd tri growth US. SW Rh negative state in antepartum period 8 10/31/2019 Overview: 03/24/19-A negative will need Rhogam at 28 wks. Kimi Smith APRN.SAM Childhood asthma without complication 01/03/2018 10/31/2019 Overview: 01/03/2018 Not currently using Albuterol inhaler. Continue to monitor. No Hemabate. SW Bleeding in early 12/30/2017 04/0 11/2018 Overview: 12/30/2017 Patient was seen by Kimi Smith 12/22/2017 for bleeding in . She denies any bleeding since then. Miscarriage precautions given. Patient to call/come in of she develops any further bleeding, the development of pain or PRN problems. TKRN Patient request for diagnostic testing 8 08/15/2019 Overview: 06/19/19-Declines aneuploidy screening. Kimi Smith APRN.CNM 03/16/2019. Patient desires nuchal ultrasound and genetic carrier screening testing. TKRN Mononucleosis 05/17/2013 06/21/2018 Tendonitis, Achilles, left 01/10/201306/21 Lumbago 07/07/2011 06/21/2018 Spondylolysis of lumbar region 06/25/2011 0 10/31/2019 documented as of this encounter (statuses as of 08/18/2021) [facility] of Past illness Narrative* Problem Noted Date Resolved Date Acute upper respiratory infection 06/29/2019 10/31/2019 Overview: 06/29/2019 Pt being tested for COVID19 - results pending. SW Polyhydramnios in third trimester 07/05/2018 08/05/2018 Overview: July 05, 2018 D/w her risks. NSTs weekly. Kick counts. PTL precuations. F/u weekly. Angie Mora MD Short interval between pregn ancies affecting , antepartum 06/15/2018 10/31/2019 Overview: 03/16/2019 Patient delivered her previous child 08/01/2018. TKRN Shortness of breath 06/15/2018 07/05/2018 Abnormal glucose measurement 05/31/2018 Overview: 05/31/2018 Elevated 1hr GTT. 03/17 elevated with 3hr GTT - 2hr was elevated to 209. Consider 3rd tri growth US. SW Rh negative state in antepartum period 8 10/31/2019 Overview: 03/24/19-A negative will need Rhogam at 28 wks. Kimi Smith APRN.SAM Childhood asthma without complication 01/03/2018 10/31/2019 Overview: 01/03/2018 Not currently using Albuterol inhaler. Continue to monitor. No Hemabate. SW Bleeding in early 12/30/2017 04/11/2018 Overview: 12/30/2017 Patient was seen by Kimi Smith 12/22/2017 for bleeding in . She denies any bleeding since then. Miscarriage precautions given. Patient to call/come in of she develops any further bleeding, the development of pain or PRN problems. TKRN Patient request for diagnostic testing 8 08/15/2019 Overview: 06/19/19-Declines aneuploidy screening. Kimi Smith APRN.SAM 03/16/2019. Patient desires nuchal ultrasound and genetic carrier screening testing. TKRN Mononucleosis 05/17/2013 06/21/2018 Tendonitis, Achilles, left 01/10/201306/21 Lumbago 07/07/2011 06/21/2018 Spondylolysis of lumbar region 06/25/2011 0 10/31/2019 documented as of this encounter (statuses as of 08/18/2021) [facility] of Past illness Narrative* Problem Noted Date Resolved Date Acute upper respiratory infection 06/29/2019 10/31/2019 Overview: 06/29/2019 Pt being tested for COVID19 - results pending. SW Polyhydramnios in third trimester 07/05/2018 08/05/2018 Overview: July 05, 2018 D/w her risks. NSTs weekly. Kick counts. PTL precuations. F/u weekly. Angie Mora MD Short interval between pregn ancies affecting , antepartum 06/15/2018 10/31/2019 Overview: 03/16/2019 Patient delivered her previous child 08/01/2018. TKRN Shortness of breath 06/15/2018 07/05/2018 Abnormal glucose measurement 05/31/2018 Overview: 05/31/2018 Elevated 1hr GTT. 03/17 elevated with 3hr GTT - 2hr was elevated to 209. Consider 3rd tri growth US. SW Rh negative state in antepartum period 8 10/31/2019 Overview: 03/24/19-A negative will need Rhogam at 28 wks. Kimi Smith APRN.SAM Childhood asthma without complication 01/03/2018 10/31/2019 Overview: 01/03/2018 Not currently using Albuterol inhaler. Continue to monitor. No Hemabate. SW Bleeding in early 12/30/2017 04/0 11/2018 Overview: 12/30/2017 Patient was seen by Kimi Smith 12/22/2017 for bleeding in . She denies any bleeding since then. Miscarriage precautions given. Patient to call/come in of she develops any further bleeding, the development of pain or PRN problems. TKRN Patient request for diagnostic testing 8 08/15/2019 Overview: 06/19/19-Declines aneuploidy screening. Kimi Smith APRN.SAM 03/16/2019. Patient desires nuchal ultrasound and genetic carrier screening testing. TKRN Mononucleosis 05/17/2013 06/21/2018 Tendonitis, Achilles, left 01/10/201306/21 Lumbago 07/07/2011 06/21/2018 Spondylolysis of lumbar region 06/25/2011 0 10/31/2019 documented as of this encounter (statuses as of 08/19/2021) [facility] of Past illness Narrative* Problem Noted Date Resolved Date Acute upper respiratory infection 06/29/2019 10/31/2019 Overview: 06/29/2019 Pt being tested for COVID19 - results pending. SW Polyhydramnios in third trimester 07/05/2018 08/05/2018 Overview: July 05, 2018 D/w her risks. NSTs weekly. Kick counts. PTL precuations. F/u weekly. Angie Mora MD Short interval between pregn ancies affecting , antepartum 06/15/2018 10/31/2019 Overview: 03/16/2019 Patient delivered her previous child 08/01/2018. TKRN Shortness of breath 06/15/2018 07/05/2018 Abnormal glucose measurement 05/31/2018 Overview: 05/31/2018 Elevated 1hr GTT. 03/17 elevated with 3hr GTT - 2hr was elevated to 209. Consider 3rd tri growth US. SW Rh negative state in antepartum period 8 10/31/2019 Overview: 03/24/19-A negative will need Rhogam at 28 wks. Kimi Smith APRN.CNM Childhood asthma without complication 01/03/2018 10/31/2019 Overview: 01/03/2018 Not currently using Albuterol inhaler. Continue to monitor. No Hemabate. SW Bleeding in early 12/30/2017 04/11/2018 Overview: 12/30/2017 Patient was seen by Kimi Smith 12/22/2017 for bleeding in . She denies any bleeding since then. Miscarriage precautions given. Patient to call/come in of she develops any further bleeding, the development of pain or PRN problems. TKRN Patient request for diagnostic testing 8 08/15/2019 Overview: 06/19/19-Declines aneuploidy screening. Kimi Smith APRN.CNM 03/16/2019. Patient desires nuchal ultrasound and genetic carrier screening testing. TKRN Mononucleosis 05/17/2013 06/21/2018 Tendonitis, Achilles, left 01/10/201306/21 Lumbago 07/07/2011 06/21/2018 Spondylolysis of lumbar region 06/25/2011 0 10/31/2019 documented as of this encounter (statuses as of 08/22/2021) [facility] Past illness Narrative* Problem Noted Date Resolved Date Acute upper respiratory infection 06/29/2019 10/31/2019 Overview: 06/29/2019 Pt being tested for COVID19 - results pending. SW Polyhydramnios in third trimester 07/05/2018 08/05/2018 Overview: July 05, 2018 D/w her risks. NSTs weekly. Kick counts. PTL precuations. F/u weekly. Angie Mora MD Short interval between pregn ancies affecting , antepartum 06/15/2018 10/31/2019 Overview: 03/16/2019 Patient delivered her previous child 08/01/2018. TKRN Shortness of breath 06/15/2018 07/05/2018 Abnormal glucose measurement 05/31/2018 Overview: 05/31/2018 Elevated 1hr GTT. 03/17 elevated with 3hr GTT - 2hr was elevated to 209. Consider 3rd tri growth US. SW Rh negative state in antepartum period 8 10/31/2019 Overview: 03/24/19-A negative will need Rhogam at 28 wks. Kimi Smith APRN.CNM Childhood asthma without complication 01/03/2018 10/31/2019 Overview: 01/03/2018 Not currently using Albuterol inhaler. Continue to monitor. No Hemabate. SW Bleeding in early 12/30/2017 04/0 11/2018 Overview: 12/30/2017 Patient was seen by Kimi Smith 12/22/2017 for bleeding in . She denies any bleeding since then. Miscarriage precautions given. Patient to call/come in of she develops any further bleeding, the development of pain or PRN problems. TKRN Patient request for diagnostic testing 8 08/15/2019 Overview: 06/19/19-Declines aneuploidy screening. Kimi Smith APRN.CNM 03/16/2019. Patient desires nuchal ultrasound and genetic carrier screening testing. TKRN Mononucleosis 05/17/2013 06/21/2018 Tendonitis, Achilles, left 01/10/201306/21 Lumbago 07/07/2011 06/21/2018 Spondylolysis of lumbar region 06/25/2011 0 10/31/2019 documented as of this encounter (statuses as of 10/03/2021) [facility] History of Past illness Narrative* Problem Noted Date Resolved Date Acute upper respiratory infection 06/29/2019 10/31/2019 Overview: 06/29/2019 Pt being tested for COVID19 - results pending. SW Polyhydramnios in third trimester 07/05/2018 08/05/2018 Overview: July 05, 2018 D/w her risks. NSTs weekly. Kick counts. PTL precuations. F/u weekly. Angie Mora MD Short interval between pregn ancies affecting , antepartum 06/15/2018 10/31/2019 Overview: 03/16/2019 Patient delivered her previous child 08/01/2018. TKRN Shortness of breath 06/15/2018 07/05/2018 Abnormal glucose measurement 05/31/2018 Overview: 05/31/2018 Elevated 1hr GTT. 03/17 elevated with 3hr GTT - 2hr was elevated to 209. Consider 3rd tri growth US. SW Rh negative state in antepartum period 8 10/31/2019 Overview: 03/24/19-A negative will need Rhogam at 28 wks. Kimi Smith APRN.SAM Childhood asthma without complication 01/03/2018 10/31/2019 Overview: 01/03/2018 Not currently using Albuterol inhaler. Continue to monitor. No Hemabate. SW Bleeding in early 12/30/2017 04/0 11/2018 Overview: 12/30/2017 Patient was seen by Kimi Smith 12/22/2017 for bleeding in . She denies any bleeding since then. Miscarriage precautions given. Patient to call/come in of she develops any further bleeding, the development of pain or PRN problems. TKRN Patient request for diagnostic testing 8 08/15/2019 Overview: 06/19/19-Declines aneuploidy screening. Kimi Smith APRN.SAM 03/16/2019. Patient desires nuchal ultrasound and genetic carrier screening testing. TKRN Mononucleosis 05/17/2013 06/21/2018 Tendonitis, Achilles, left 01/10/201306/21 Lumbago 07/07/2011 06/21/2018 Spondylolysis of lumbar region 06/25/2011 0 10/31/2019 documented as of this encounter (statuses as of 05/28/2022) [facility] History of Past illness Narrative* Problem Noted Date Resolved Date Acute upper respiratory infection 06/29/2019 10/31/2019 Overview: 06/29/2019 Pt being tested for COVID19 - results pending. SW Polyhydramnios in third trimester 07/05/2018 08/05/2018 Overview: July 05, 2018 D/w her risks. NSTs weekly. Kick counts. PTL precuations. F/u weekly. Angie Mora MD Short interval between pregn ancies affecting , antepartum 06/15/2018 10/31/2019 Overview: 03/16/2019 Patient delivered her previous child 08/01/2018. TKRN Shortness of breath 06/15/2018 07/05/2018 Abnormal glucose measurement 05/31/2018 Overview: 05/31/2018 Elevated 1hr GTT. 03/17 elevated with 3hr GTT - 2hr was elevated to 209. Consider 3rd tri growth US. SW Rh negative state in antepartum period 8 10/31/2019 Overview: 03/24/19-A negative will need Rhogam at 28 wks. Kimi Smith APRN.SAM Childhood asthma without complication 01/03/2018 10/31/2019 Overview: 01/03/2018 Not currently using Albuterol inhaler. Continue to monitor. No Hemabate. SW Bleeding in early 12/30/2017 04/0 11/2018 Overview: 12/30/2017 Patient was seen by Kimi Smith 12/22/2017 for bleeding in . She denies any bleeding since then. Miscarriage precautions given. Patient to call/come in of she develops any further bleeding, the development of pain or PRN problems. TKRN Patient request for diagnostic testing 8 08/15/2019 Overview: 06/19/19-Declines aneuploidy screening. Kimi Smith APRN.SAM 03/16/2019. Patient desires nuchal ultrasound and genetic carrier screening testing. TKRN Mononucleosis 05/17/2013 06/21/2018 Tendonitis, Achilles, left 01/10/201306/21 Lumbago 07/07/2011 06/21/2018 Spondylolysis of lumbar region 06/25/2011 0 10/31/2019 documented as of this encounter (statuses as of 06/02/2022) [facility] History of Past illness Narrative* Problem Noted Date Resolved Date Acute upper respiratory infection 06/29/2019 10/31/2019 Overview: 06/29/2019 Pt being tested for COVID19 - results pending. SW Polyhydramnios in third trimester 07/05/2018 08/05/2018 Overview: July 05, 2018 D/w her risks. NSTs weekly. Kick counts. PTL precuations. F/u weekly. Angie Mora MD Short interval between pregn ancies affecting , antepartum 06/15/2018 10/31/2019 Overview: 03/16/2019 Patient delivered her previous child 08/01/2018. TKRN Shortness of breath 06/15/2018 07/05/2018 Abnormal glucose measurement 05/31/2018 Overview: 05/31/2018 Elevated 1hr GTT. 03/17 elevated with 3hr GTT - 2hr was elevated to 209. Consider 3rd tri growth US. SW Rh negative state in antepartum period 8 10/31/2019 Overview: 03/24/19-A negative will need Rhogam at 28 wks. Kimi Smith APRN.SAM Childhood asthma without complication 01/03/2018 10/31/2019 Overview: 01/03/2018 Not currently using Albuterol inhaler. Continue to monitor. No Hemabate. SW Bleeding in early 12/30/2017 04/0 11/2018 Overview: 12/30/2017 Patient was seen by Kimi Smith 12/22/2017 for bleeding in . She denies any bleeding since then. Miscarriage precautions given. Patient to call/come in of she develops any further bleeding, the development of pain or PRN problems. TKRN Patient request for diagnostic testing 8 08/15/2019 Overview: 06/19/19-Declines aneuploidy screening. Kimi Smith APRN.SAM 03/16/2019. Patient desires nuchal ultrasound and genetic carrier screening testing. TKRN Mononucleosis 05/17/2013 06/21/2018 Tendonitis, Achilles, left 01/10/201306/21 Lumbago 07/07/2011 06/21/2018 Spondylolysis of lumbar region 06/25/2011 0 10/31/2019 documented as of this encounter (statuses as of 07/03/2022) [facility] History of Past illness Narrative* Problem Noted Date Resolved Date Acute upper respiratory infection 06/29/2019 10/31/2019 Overview: 06/29/2019 Pt being tested for COVID19 - results pending. SW Polyhydramnios in third trimester 07/05/2018 08/05/2018 Overview: July 05, 2018 D/w her risks. NSTs weekly. Kick counts. PTL precuations. F/u weekly. Angie Mora MD Short interval between pregn ancies affecting , antepartum 06/15/2018 10/31/2019 Overview: 03/16/2019 Patient delivered her previous child 08/01/2018. TKRN Shortness of breath 06/15/2018 07/05/2018 Abnormal glucose measurement 05/31/2018 Overview: 05/31/2018 Elevated 1hr GTT. 03/17 elevated with 3hr GTT - 2hr was elevated to 209. Consider 3rd tri growth US. SW Rh negative state in antepartum period 8 10/31/2019 Overview: 03/24/19-A negative will need Rhogam at 28 wks. Kimi Smith APRN.CNM Childhood asthma without complication 01/03/2018 10/31/2019 Overview: 01/03/2018 Not currently using Albuterol inhaler. Continue to monitor. No Hemabate. SW Bleeding in early 12/30/2017 04/0 11/2018 Overview: 12/30/2017 Patient was seen by Kimi Smith 12/22/2017 for bleeding in . She denies any bleeding since then. Miscarriage precautions given. Patient to call/come in of she develops any further bleeding, the development of pain or PRN problems. TKRN Patient request for diagnostic testing 8 08/15/2019 Overview: 06/19/19-Declines aneuploidy screening. Kimi Smith APRN.SAM 03/16/2019. Patient desires nuchal ultrasound and genetic carrier screening testing. TKRN Mononucleosis 05/17/2013 06/21/2018 Tendonitis, Achilles, left 01/10/201306/21 Lumbago 07/07/2011 06/21/2018 Spondylolysis of lumbar region 06/25/2011 0 10/31/2019 documented as of this encounter (statuses as of 08/11/2022) [facility] History of Past illness Narrative* Problem Noted Date Resolved Date Acute upper respiratory infection 06/29/2019 10/31/2019 Overview: 06/29/2019 Pt being tested for COVID19 - results pending. SW Polyhydramnios in third trimester 07/05/2018 08/05/2018 Overview: July 05, 2018 D/w her risks. NSTs weekly. Kick counts. PTL precuations. F/u weekly. Angie Mora MD Short interval between pregn ancies affecting , antepartum 06/15/2018 10/31/2019 Overview: 03/16/2019 Patient delivered her previous child 08/01/2018. TKRN Shortness of breath 06/15/2018 07/05/2018 Abnormal glucose measurement 05/31/2018 Overview: 05/31/2018 Elevated 1hr GTT. 03/17 elevated with 3hr GTT - 2hr was elevated to 209. Consider 3rd tri growth US. SW Rh negative state in antepartum period 8 10/31/2019 Overview: 03/24/19-A negative will need Rhogam at 28 wks. Kimi Smith APRN.SAM Childhood asthma without complication 01/03/2018 10/31/2019 Overview: 01/03/2018 Not currently using Albuterol inhaler. Continue to monitor. No Hemabate. SW Bleeding in early 12/30/201711/2018 Overview: 12/30/2017 Patient was seen by Kimi Smith 12/22/2017 for bleeding in . She denies any bleeding since then. Miscarriage precautions given. Patient to call/come in of she develops any further bleeding, the development of pain or PRN problems. TKRN Patient request for diagnostic testing 8 08/15/2019 Overview: 06/19/19-Declines aneuploidy screening. Kimi Smith APRN.CNM 03/16/2019. Patient desires nuchal ultrasound and genetic carrier screening testing. TKRN Mononucleosis 05/17/2013 06/21/2018 Tendonitis, Achilles, left 01/10/201306/21 Lumbago 07/07/2011 06/21/2018 Spondylolysis of lumbar region 06/25/2011 0 10/31/2019 documented as of this encounter (statuses as of 08/11/2022) [facility] History of Past illness Narrative* Problem Noted Date Resolved Date Acute upper respiratory infection 06/29/2019 10/31/2019 Overview: 06/29/2019 Pt being tested for COVID19 - results pending. SW Polyhydramnios in third trimester 07/05/2018 08/05/2018 Overview: July 05, 2018 D/w her risks. NSTs weekly. Kick counts. PTL precuations. F/u weekly. Angie Mora MD Short interval between pregn ancies affecting , antepartum 06/15/2018 10/31/2019 Overview: 03/16/2019 Patient delivered her previous child 08/01/2018. TKRN Shortness of breath 06/15/2018 07/05/2018 Abnormal glucose measurement 05/31/2018 Overview: 05/31/2018 Elevated 1hr GTT. 1/3 elevated with 3hr GTT - 2hr was elevated to 209. Consider 3rd tri growth US. SW Rh negative state in antepartum period 8 10/31/2019 Overview: 03/24/19-A negative will need Rhogam at 28 wks. Kimi Smith APRN.SAM Childhood asthma without complication 01/03/2018 10/31/2019 Overview: 01/03/2018 Not currently using Albuterol inhaler. Continue to monitor. No Hemabate. SW Bleeding in early 12/30/2017 04/0 11/2018 Overview: 12/30/2017 Patient was seen by Kimi Smith 12/22/2017 for bleeding in . She denies any bleeding since then. Miscarriage precautions given. Patient to call/come in of she develops any further bleeding, the development of pain or PRN problems. TKRN Patient request for diagnostic testing 8 08/15/2019 Overview: 06/19/19-Declines aneuploidy screening. Kimi Smith APRN.SAM 03/16/2019. Patient desires nuchal ultrasound and genetic carrier screening testing. TKRN Mononucleosis 05/17/2013 06/21/2018 Tendonitis, Achilles, left 01/10/201306/21 Lumbago 07/07/2011 06/21/2018 Spondylolysis of lumbar region 06/25/2011 0 10/31/2019 documented as of this encounter (statuses as of 08/26/2022) [facility] History of Past illness Narrative* Problem Noted Date Resolved Date Acute upper respiratory infection 06/29/2019 10/31/2019 Overview: 06/29/2019 Pt being tested for COVID19 - results pending. SW Polyhydramnios in third trimester 07/05/2018 08/05/2018 Overview: July 05, 2018 D/w her risks. NSTs weekly. Kick counts. PTL precuations. F/u weekly. Angie Mora MD Short interval between pregn ancies affecting , antepartum 06/15/2018 10/31/2019 Overview: 03/16/2019 Patient delivered her previous child 08/01/2018. TKRN Shortness of breath 06/15/2018 07/05/2018 Abnormal glucose measurement 05/31/2018 Overview: 05/31/2018 Elevated 1hr GTT. 03/17 elevated with 3hr GTT - 2hr was elevated to 209. Consider 3rd tri growth US. SW Rh negative state in antepartum period 8 10/31/2019 Overview: 03/24/19-A negative will need Rhogam at 28 wks. Kimi Smith APRN.SAM Childhood asthma without complication 01/03/2018 10/31/2019 Overview: 01/03/2018 Not currently using Albuterol inhaler. Continue to monitor. No Hemabate. SW Bleeding in early 12/30/2017 04/0 11/2018 Overview: 12/30/2017 Patient was seen by Kimi Smith 12/22/2017 for bleeding in . She denies any bleeding since then. Miscarriage precautions given. Patient to call/come in of she develops any further bleeding, the development of pain or PRN problems. TKRN Patient request for diagnostic testing 8 08/15/2019 Overview: 06/19/19-Declines aneuploidy screening. Kimi Smith APRN.SAM 03/16/2019. Patient desires nuchal ultrasound and genetic carrier screening testing. TKRN Mononucleosis 05/17/2013 06/21/2018 Tendonitis, Achilles, left 01/10/201306/21 Lumbago 07/07/2011 06/21/2018 Spondylolysis of lumbar region 06/25/2011 0 10/31/2019 documented as of this encounter (statuses as of 08/28/2022) [facility] History of Past illness Narrative* Problem Noted Date Resolved Date Acute upper respiratory infection 06/29/2019 10/31/2019 Overview: 06/29/2019 Pt being tested for COVID19 - results pending. SW Polyhydramnios in third trimester 07/05/2018 08/05/2018 Overview: July 05, 2018 D/w her risks. NSTs weekly. Kick counts. PTL precuations. F/u weekly. Angie Mora MD Short interval between pregn ancies affecting , antepartum 06/15/2018 10/31/2019 Overview: 03/16/2019 Patient delivered her previous child 08/01/2018. TKRN Shortness of breath 06/15/2018 07/05/2018 Abnormal glucose measurement 05/31/2018 Overview: 05/31/2018 Elevated 1hr GTT. 03/17 elevated with 3hr GTT - 2hr was elevated to 209. Consider 3rd tri growth US. SW Rh negative state in antepartum period 8 10/31/2019 Overview: 03/24/19-A negative will need Rhogam at 28 wks. Kimi Smith APRN.SAM Childhood asthma without complication 01/03/2018 10/31/2019 Overview: 01/03/2018 Not currently using Albuterol inhaler. Continue to monitor. No Hemabate. SW Bleeding in early 12/30/2017 04/0 11/2018 Overview: 12/30/2017 Patient was seen by Kimi Smith 12/22/2017 for bleeding in . She denies any bleeding since then. Miscarriage precautions given. Patient to call/come in of she develops any further bleeding, the development of pain or PRN problems. TKRN Patient request for diagnostic testing 8 08/15/2019 Overview: 06/19/19-Declines aneuploidy screening. Kimi Smith APRN.SAM 03/16/2019. Patient desires nuchal ultrasound and genetic carrier screening testing. TKRN Mononucleosis 05/17/2013 06/21/2018 Tendonitis, Achilles, left 01/10/201306/21 Lumbago 07/07/2011 06/21/2018 Spondylolysis of lumbar region 06/25/2011 0 10/31/2019 documented as of this encounter (statuses as of 08/28/2022) [facility] History of Past illness Narrative* Problem Noted Date Resolved Date Acute upper respiratory infection 06/29/2019 10/31/2019 Overview: 06/29/2019 Pt being tested for COVID19 - results pending. SW Polyhydramnios in third trimester 07/05/2018 08/05/2018 Overview: July 05, 2018 D/w her risks. NSTs weekly. Kick counts. PTL precuations. F/u weekly. Angie Mora MD Short interval between pregn ancies affecting , antepartum 06/15/2018 10/31/2019 Overview: 03/16/2019 Patient delivered her previous child 08/01/2018. TKRN Shortness of breath 06/15/2018 07/05/2018 Abnormal glucose measurement 05/31/2018 Overview: 05/31/2018 Elevated 1hr GTT. 03/17 elevated with 3hr GTT - 2hr was elevated to 209. Consider 3rd tri growth US. SW Rh negative state in antepartum period 8 10/31/2019 Overview: 03/24/19-A negative will need Rhogam at 28 wks. Kimi Smith APRN.CNM Childhood asthma without complication 01/03/2018 10/31/2019 Overview: 01/03/2018 Not currently using Albuterol inhaler. Continue to monitor. No Hemabate. SW Bleeding in early 12/30/2017 0411/2018 Overview: 12/30/2017 Patient was seen by Kimi Smith 12/22/2017 for bleeding in . She denies any bleeding since then. Miscarriage precautions given. Patient to call/come in of she develops any further bleeding, the development of pain or PRN problems. TKRN Patient request for diagnostic testing 8 08/15/2019 Overview: 06/19/19-Declines aneuploidy screening. Kimi Smith APRN.SAM 03/16/2019. Patient desires nuchal ultrasound and genetic carrier screening testing. TKRN Mononucleosis 05/17/2013 06/21/2018 Tendonitis, Achilles, left 01/10/201306/21 Lumbago 07/07/2011 06/21/2018 Spondylolysis of lumbar region 06/25/2011 0 10/31/2019 documented as of this encounter (statuses as of 08/31/2022) [facility] History of Past illness Narrative* Problem Noted Date Resolved Date Acute upper respiratory infection 06/29/2019 10/31/2019 Overview: 06/29/2019 Pt being tested for COVID19 - results pending. SW Polyhydramnios in third trimester 07/05/2018 08/05/2018 Overview: July 05, 2018 D/w her risks. NSTs weekly. Kick counts. PTL precuations. F/u weekly. Angie Mora MD Short interval between pregn ancies affecting , antepartum 06/15/2018 10/31/2019 Overview: 03/16/2019 Patient delivered her previous child 08/01/2018. TKRN Shortness of breath 06/15/2018 07/05/2018 Abnormal glucose measurement 05/31/2018 Overview: 05/31/2018 Elevated 1hr GTT. 03/17 elevated with 3hr GTT - 2hr was elevated to 209. Consider 3rd tri growth US. SW Rh negative state in antepartum period 8 10/31/2019 Overview: 03/24/19-A negative will need Rhogam at 28 wks. Kimi Smith APRN.SAM Childhood asthma without complication 01/03/2018 10/31/2019 Overview: 01/03/2018 Not currently using Albuterol inhaler. Continue to monitor. No Hemabate. SW Bleeding in early 12/30/2017 04/0 11/2018 Overview: 12/30/2017 Patient was seen by Kimi Smith 12/22/2017 for bleeding in . She denies any bleeding since then. Miscarriage precautions given. Patient to call/come in of she develops any further bleeding, the development of pain or PRN problems. TKRN Patient request for diagnostic testing 8 08/15/2019 Overview: 06/19/19-Declines aneuploidy screening. Kimi Smith APRN.CNSandra 03/16/2019. Patient desires nuchal ultrasound and genetic carrier screening testing. TKRN Mononucleosis 05/17/2013 06/21/2018 Tendonitis, Achilles, left 01/10/201306/21 Lumbago 07/07/2011 06/21/2018 Spondylolysis of lumbar region 06/25/2011 0 10/31/2019 documented as of this encounter (statuses as of 09/04/2022) [facility] History of Past illness Narrative* Problem Noted Date Resolved Date Acute upper respiratory infection 06/29/2019 10/31/2019 Overview: 06/29/2019 Pt being tested for COVID19 - results pending. SW Polyhydramnios in third trimester 07/05/2018 08/05/2018 Overview: July 05, 2018 D/w her risks. NSTs weekly. Kick counts. PTL precuations. F/u weekly. Angie Mora MD Short interval between pregn ancies affecting , antepartum 06/15/2018 10/31/2019 Overview: 03/16/2019 Patient delivered her previous child 08/01/2018. TKRN Shortness of breath 06/15/2018 07/05/2018 Abnormal glucose measurement 05/31/2018 Overview: 05/31/2018 Elevated 1hr GTT. 03/17 elevated with 3hr GTT - 2hr was elevated to 209. Consider 3rd tri growth US. SW Rh negative state in antepartum period 8 10/31/2019 Overview: 03/24/19-A negative will need Rhogam at 28 wks. Kimi Smith APRN.SAM Childhood asthma without complication 01/03/2018 10/31/2019 Overview: 01/03/2018 Not currently using Albuterol inhaler. Continue to monitor. No Hemabate. SW Bleeding in early 12/30/2017 04/0 11/2018 Overview: 12/30/2017 Patient was seen by Kimi Smith 12/22/2017 for bleeding in . She denies any bleeding since then. Miscarriage precautions given. Patient to call/come in of she develops any further bleeding, the development of pain or PRN problems. TKRN Patient request for diagnostic testing 8 08/15/2019 Overview: 06/19/19-Declines aneuploidy screening. Kimi Smith APRN.SAM 03/16/2019. Patient desires nuchal ultrasound and genetic carrier screening testing. TKRN Mononucleosis 05/17/2013 06/21/2018 Tendonitis, Achilles, left 01/10/201306/21 Lumbago 07/07/2011 06/21/2018 Spondylolysis of lumbar region 06/25/2011 0 10/31/2019 documented as of this encounter (statuses as of 09/18/2022) [facility] of Past illness Narrative* Problem Noted Date Diagnosed Date Resolved Date Acute upper respiratory infection 06/29/2019 10/31/2019 Overview: 06/29/2019 Pt being tested for COVID19 - results pending. SW Polyhydramnios in third trimester 07/05/2018 08/05/2018 Overview: July 05, 2018 D/w her risks. NSTs weekly. Kick counts. PTL precuations. F/u weekly. Angie Mora MD Short interval between pregn ancies affecting , antepartum 06/15/2018 10/31/2019 Overview: 03/16/2019 Patient delivered her previous child 08/01/2018. TKRN Shortness of breath 06/15/2018 07/06/19 19 Abnormal glucose measurement 05/31/2018 08/05/2018 Overview: 05/31/2018 Elevated 1hr GTT. 03/17 elevated with 3hr GTT - 2hr was elevated to 209. Consider 3rd tri growth US. SW Rh negative state in antepartum period 01/17/2018 10/31/2019 Overview: 03/24/19-A negative will need Rhogam at 28 wks. Kimi Smith APRN.CNM Childhood asthma without complication 01/03/2018 10/31/2019 Overview: 01/03/2018 Not currently using Albuterol inhaler. Continue to monitor. No Hemabate. SW Bleeding in early 12/30/2017 06/21/2018 Overview: 12/30/2017 Patient was seen by Kimi Smith 12/22/2017 for bleeding in . She denies any bleeding since then. Miscarriage precautions given. Patient to call/come in of she develops any further bleeding, the development of pain or PRN problems. TKRN Patient request for diagnostic testing 12/30/2017 08/15/2019 Overview: 06/19/19-Declines aneuploidy screening. Kimi Smith APRN.CNM 03/16/2019. Patient desires nuchal ultrasound and genetic carrier screening testing. TKRN Mononucleosis 05/17/2013 06/21/2018 Tendonitis, Achilles, left 01/10/2013 0 06/21/2018 Lumbago 07/07/2011 06/21/2018 Spondylolysis of lumbar region 06/25/2011 10/31/2019 documented as of this encounter (statuses as of 09/29/2022) [facility] Viral illness- Primary Unspecified viral infection, in conditions classified elsewhere and of unspecified site Nausea and vomiting, unspecified vomiting type [facility] this [facility] Diagnosis Obesity, Class III, BMI 40-49.9 (morbid obesity) (HCC)- Primary Morbid obesity [facility] Diagnosis Obesity, Class III, BMI 40-49.9 (morbid obesity) (HCC) Morbid obesity [facility] Diagnosis Encounter for gynecological examination (general) (routine) without abnormal findings- Primary Screening for cervical cancer Screening for malignant neoplasm of the cervix Encounter for screening for human papillomavirus (HPV) Special screening examination for human papillomavirus (HPV) Encounter for surveillance of vaginal ring hormonal contraceptive device [facility] Diagnosis Body mass index 40.0-44.9, adult (HCC)- Primary Body Mass Index 40.0-44.9, adult [facility] Diagnosis Body mass index 40.0-44.9, adult (HCC)- Primary Body Mass Index 40.0-44.9, adult [facility] Diagnosis Body mass index 40.0-44.9, adult (HCC) Body Mass Index 40.0-44.9, adult [facility] Diagnosis Morbid obesity (HCC)- Primary Morbid obesity Preoperative examination Preoperative examination, unspecified [facility] this [facility] Diagnosis BMI 40.0-44.9, adult (HCC)- Primary Body Mass Index 40.0-44.9, adult Dietary counseling Dietary surveillance and counseling Morbid obesity (HCC) Morbid obesity Preoperative examination Preoperative examination, unspecified [facility] Diagnosis Left upper quadrant abdominal pain- Primary Leg cramping Cramp of limb [facility] Diagnosis Transaminitis- Primary Nonspecific elevation of levels of transaminase or lactic acid dehydrogenase (LDH) [facility] Diagnosis Bariatric surgery status- Primary [facility] Diagnosis Food intolerance- Primary Other specified intestinal malabsorption Bariatric surgery status documented [facility] this [facility] Diagnosis NO SHOW- Primary documented [facility] this [facility]* Diagnosis Encounter for gynecological examination without abnormal finding- Primary Routine gynecological examination Pelvic pain in female Unspecified symptom associated with female genital organs Breast cyst, left documented in this encounter [facility] note* Diagnosis Sinobronchitis- Primary Unspecified sinusitis (chronic) Strep pharyngitis Streptococcal sore throat [facility]* Diagnosis Sinobronchitis Unspecified sinusitis (chronic) [facility]* Diagnosis Left ovarian cyst- Primary Other and unspecified ovarian cyst documented in this encounter [facility] note* Diagnosis , location unknown- Primary state, incidental documented in this encounter [facility] note* Diagnosis Lower abdominal pain- Primary Abdominal pain, other specified site documented in this encounter [facility] note* Diagnosis 10 weeks gestation of - Primary state, incidental with uncertain dates in first trimester History of gastric bypass Bariatric surgery status Hx of gestational diabetes mellitus, not currently Personal history of gestational diabetes [facility]* Diagnosis , location unknown state, incidental documented in this encounter [facility] note* Diagnosis Breast cyst, left [facility]* Diagnosis Supervision of high risk in second trimester- Primary Unspecified high-risk History of gastric bypass Bariatric surgery status 14 weeks gestation of state, incidental documented in this encounter [facility] for referral (narrative)* Outpatient Procedure (Routine) - Authorized Specialty Diagnoses / Procedures Referred By Catie perez Referred To Contact [facility] Diagnoses Body mass index 40.0-44.9, adult (HCC) Procedures ECG COMPLETE ECG ROUTINE ECG W/LEAST 12 LDS W/I&R Cristy Platt APRN.CNP [address] [place] [address] [facility] [id number] [place] [address] Referral ID Status Reason Start Date Expiration Date Visits Requested Visits Authorized [id number] Authorized Auto-Generat ed Referral 05/28/2022 05/28/2023 1 1 [facility] for referral (narrative)* Diagnostic Procedure Only (Routine) - Pending Review Specialty Diagnoses / Procedures Referred By Catie perez Referred To Contact XR IMAGING Diagnoses Food intolerance Procedures XR UPPER GI SINGLE CONTRAST RADIOLOGIC EXAM UPR GI TRC SINGLE CONTRAST STUDY Brenda Yost MD [address] [place] [address] Xr Imaging Referral ID Status Reason Start Date Expiration Date Visits Requested Visits Authorized [id number] Pending Review Auto-Generat ed Referral 09/18/2022 10/18/2023 1 1 [facility] for referral (narrative)* Diagnostic Procedure Only (Routine) - Authorized Specialty Diagnoses / Procedures Referred By Contac t Referred To Contact [facility] Diagnoses Breast cyst, left Procedures US BREAST LTD LEFT US BREAST UNI REAL TIME WITH IMAGE LIMITED Kayy Longo APRN.CNP [address] [place] [address] [facility] [address] [place] [address] Referral ID Status Reason Start Date Expiration Date Visits Requested Visits Authorized [id number] Authorized Auto-Generat ed Referral 10/16/2022 11/15/2023 1 1 * Diagnostic Procedure Only (Routine) - Authorized Specialty Diagnoses / Procedures Referred By Contac t Referred To Contact [facility] Diagnoses Pelvic pain in female Procedures PELVIC US WHI US PELVIC NONOBSTETRIC REAL-TIME IMAGE COMPLETE Kayy Longo APRN.CNP [address] [place] [address] [facility] [address] [place] [address] Referral ID Status Reason Start Date Expiration Date Visits Requested Visits Authorized [id number] Authorized Auto-Generat ed Referral 10/16/2022 10/16/2023 1 1 [facility] for referral (narrative)* Diagnostic Procedure Only (Routine) - Authorized Specialty Diagnoses / Procedures Referred By Contac t Referred To Contact US IMAGING Diagnoses Left ovarian cyst Procedures US FEMALE PELVIS TRANSVAG US TRANSVAGINAL Kayy Longo APRN.CNP [address] [place] [address] [place] [address] Referral ID Status Reason Start Date Expiration Date Visits Requested Visits Authorized [id number] Authorized Auto-Generat ed Referral 11/05/2022 12/05/2023 1 1 [facility] for referral (narrative)* Diagnostic Procedure Only (Routine) - Pending Review Specialty Diagnoses / Procedures Referred By Contac t Referred To Contact US IMAGING Diagnoses , location unknown Procedures US PREG TRANSVAG <14 WEEKS US PREG UTERUS REAL TIME W/IMAGE DCMTN TRANSVAG Angie Mora MD [address] [place] [address] Us Imaging [id number] Referral ID Status Reason Start Date Expiration Date Visits Requested Visits Authorized [id number] Pending Review Auto-Generat ed Referral 12/01/2022 12/31/2023 1 1 * Diagnostic Procedure Only (Routine) - Pending Review Specialty Diagnoses / Procedures Referred By Contac t Referred To Contact US IMAGING Diagnoses , location unknown Procedures US PREG TRANSABD <14 WEEKS LTD US UTERUS LIMITED 1/> FETUSES Angie Mora MD [address] [place] [address] [place] [address] Referral ID Status Reason Start Date Expiration Date Visits Requested Visits Authorized [id number] Pending Review Auto-Generat ed Referral 12/01/2022 12/31/2023 1 1 [facility] for referral (narrative)* Diagnostic Procedure Only (Routine) - Closed Specialty Diagnoses / Procedures Referred By Contac t Referred To Contact US IMAGING Diagnoses , location unknown Procedures US PREG TRANSVAG <14 WEEKS US PREG UTERUS REAL TIME W/IMAGE DCMTN TRANSVAG Angie Mora MD [address] [place] [address] [place] [address] Referral ID Status Reason Start Date Expiration Date V isits Requested Visits Authorized [id number] Closed Auto-Generate d Referral 12/01/2022 12/31/2023 1 1 * Diagnostic Procedure Only (Routine) - Closed Specialty Diagnoses / Procedures Referred By Contac t Referred To Contact US IMAGING Diagnoses , location unknown Procedures US PREG TRANSABD <14 WEEKS LTD US UTERUS LIMITED 1/ FETUSES Angie Mora MD [address] [place] [place] [address] Us Imaging [id number] Referral ID Status Reason Start Date Expiration Date V isits Requested Visits Authorized [id number] Closed Auto-Generate d Referral 12/01/2022 12/31/2023 1 1 [facility] for referral (narrative)* Diagnostic Procedure Only (Routine) - Closed Specialty Diagnoses / Procedures Referred By Contac t Referred To Contact [facility] Diagnoses Breast cyst, left Procedures US BREAST LTD LEFT US BREAST UNI REAL TIME WITH IMAGE LIMITED Kayy Longo APRN.CNP [address] [place] [address] [facility] [address] [place] [address] Referral ID Status Reason Start Date Expiration Date V isits Requested Visits Authorized [id number] Closed Auto-Generate d Referral 10/16/2022 11/15/2023 1 1 [facility] for referral (narrative)* Diagnostic Procedure Only (Routine) - Authorized Specialty Diagnoses / Procedures Referred By Contac t Referred To Contact [facility] Diagnoses History of gastric bypass 14 weeks gestation of Supervision of high risk in second trimester Procedures OBSTETRIC ULTRASOUND WHI US PREG UTERUS AFTER 1ST TRIMEST GESTATION Angie Mora MD [address] [place] [address] 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 Open packaging using dry hands; do not push tablet through packaging. Given 07/22/2021 11:25 AM EDT 4 mg Health Concerns Infection Onset Date Last Indicated Resolved Time COVID-19 Rule-Out 07/22/2021 07/22/2021 Problem Noted Date Diagnosed Date [facility] Education - COMMON 01/01/2023 [place] - [place] 01/01/2023 Problem Noted Date Diagnosed Date [facility] Education - COMMON 01/01/2023 [place] - [place] 01/01/2023 Problem Noted Date Diagnosed Date [facility] Education - COMMON 01/01/2023 [place] - [place] 01/01/2023 Additional Source Comments INFORMATION SOURCE (unrecogn ized section and content) DATE CREATED AUTHOR AUTHOR'S ORGANIZ ATION 05/05/2019 [facility] ([place]) DATE CREATED AUTHOR AUTHOR'S ORGANIZ ATION 12/03/2020 [facility] DATE CREATED AUTHOR AUTHOR'S ORGANIZ ATION 05/30/2021 [facility] [place] DATE CREATED AUTHOR AUTHOR'S ORGANIZ ATION 09/30/2022 [facility] DATE CREATED AUTHOR AUTHOR'S ORGANIZ ATION 04/09/2023 [facility] DATE CREATED AUTHOR AUTHOR'S ORGANIZ ATION 04/12/2023 [facility] Source Comments (unrecognize d section and content) In the event this informatio n is protected by the Federal Confidentiality of Alcohol and Drug Abuse Patient Records regulations: The Federal rules restrict any use of the information to criminally investigate or prosecute any alcohol or drug abuse patient.[facility] event this information is protected by the Federal Confidentiality of Alcohol and Drug Abuse Patient Records regulations: The Federal rules restrict any use of the information to criminally investigate or prosecute any alcohol or drug abuse patient.[facility] the event this information is protected by the Federal Confidentiality of Alcohol and Drug Abuse Patient Records regulations: The Federal rules restrict any use of the information to criminally investigate or prosecute any alcohol or drug abuse patient.[facility] the event this information is protected by the Federal Confidentiality of Alcohol and Drug Abuse Patient Records regulations: The Federal rules restrict any use of the information to criminally investigate or prosecute any alcohol or drug abuse patient.[facility] the event this information is protected by the Federal Confidentiality of Alcohol and Drug Abuse Patient Records regulations: The Federal rules restrict any use of the information to criminally investigate or prosecute any alcohol or drug abuse patient.[facility] the event this information is protected by the Federal Confidentiality of Alcohol and Drug Abuse Patient Records regulations: The Federal rules restrict any use of the information to criminally investigate or prosecute any alcohol or drug abuse patient.[facility] the event this information is protected by the Federal Confidentiality of Alcohol and Drug Abuse Patient Records regulations: The Federal rules restrict any use of the information to criminally investigate or prosecute any alcohol or drug abuse patient.[facility] the event this information is protected by the Federal Confidentiality of Alcohol and Drug Abuse Patient Records regulations: The Federal rules restrict any use of the information to criminally investigate or prosecute any alcohol or drug abuse patient.[facility] the event this information is protected by the Federal Confidentiality of Alcohol and Drug Abuse Patient Records regulations: The Federal rules restrict any use of the information to criminally investigate or prosecute any alcohol or drug abuse patient.[facility] the event this information is protected by the Federal Confidentiality of Alcohol and Drug Abuse Patient Records regulations: The Federal rules restrict any use of the information to criminally investigate or prosecute any alcohol or drug abuse patient.[facility] the event this information is protected by the Federal Confidentiality of Alcohol and Drug Abuse Patient Records regulations: The Federal rules restrict any use of the information to criminally investigate or prosecute any alcohol or drug abuse patient.[facility] the event this information is protected by the Federal Confidentiality of Alcohol and Drug Abuse Patient Records regulations: The Federal rules restrict any use of the information to criminally investigate or prosecute any alcohol or drug abuse patient.[facility] the event this information is protected by the Federal Confidentiality of Alcohol and Drug Abuse Patient Records regulations: The Federal rules restrict any use of the information to criminally investigate or prosecute any alcohol or drug abuse patient.[facility] the event this information is protected by the Federal Confidentiality of Alcohol and Drug Abuse Patient Records regulations: The Federal rules restrict any use of the information to criminally investigate or prosecute any alcohol or drug abuse patient.[facility] the event this information is protected by the Federal Confidentiality of Alcohol and Drug Abuse Patient Records regulations: The Federal rules restrict any use of the information to criminally investigate or prosecute any alcohol or drug abuse patient.[facility] the event this information is protected by the Federal Confidentiality of Alcohol and Drug Abuse Patient Records regulations: The Federal rules restrict any use of the information to criminally investigate or prosecute any alcohol or drug abuse patient.[facility] the event this information is protected by the Federal Confidentiality of Alcohol and Drug Abuse Patient Records regulations: The Federal rules restrict any use of the information to criminally investigate or prosecute any alcohol or drug abuse patient.[facility] the event this information is protected by the Federal Confidentiality of Alcohol and Drug Abuse Patient Records regulations: The Federal rules restrict any use of the information to criminally investigate or prosecute any alcohol or drug abuse patient.[facility] the event this information is protected by the Federal Confidentiality of Alcohol and Drug Abuse Patient Records regulations: The Federal rules restrict any use of the information to criminally investigate or prosecute any alcohol or drug abuse patient.[facility] the event this information is protected by the Federal Confidentiality of Alcohol and Drug Abuse Patient Records regulations: The Federal rules restrict any use of the information to criminally investigate or prosecute any alcohol or drug abuse patient.[facility] the event this information is protected by the Federal Confidentiality of Alcohol and Drug Abuse Patient Records regulations: The Federal rules restrict any use of the information to criminally investigate or prosecute any alcohol or drug abuse patient.[facility] the event this information is protected by the Federal Confidentiality of Alcohol and Drug Abuse Patient Records regulations: The Federal rules restrict any use of the information to criminally investigate or prosecute any alcohol or drug abuse patient.[facility] the event this information is protected by the Federal Confidentiality of Alcohol and Drug Abuse Patient Records regulations: The Federal rules restrict any use of the information to criminally investigate or prosecute any alcohol or drug abuse patient.[facility] the event this information is protected by the Federal Confidentiality of Alcohol and Drug Abuse Patient Records regulations: The Federal rules restrict any use of the information to criminally investigate or prosecute any alcohol or drug abuse patient.[facility] the event this information is protected by the Federal Confidentiality of Alcohol and Drug Abuse Patient Records regulations: The Federal rules restrict any use of the information to criminally investigate or prosecute any alcohol or drug abuse patient.[facility] the event this information is protected by the Federal Confidentiality of Alcohol and Drug Abuse Patient Records regulations: The Federal rules restrict any use of the information to criminally investigate or prosecute any alcohol or drug abuse patient.[facility] the event this information is protected by the Federal Confidentiality of Alcohol and Drug Abuse Patient Records regulations: The Federal rules restrict any use of the information to criminally investigate or prosecute any alcohol or drug abuse patient.[facility] the event this information is protected by the Federal Confidentiality of Alcohol and Drug Abuse Patient Records regulations: The Federal rules restrict any use of the information to criminally investigate or prosecute any alcohol or drug abuse patient.[facility] the event this information is protected by the Federal Confidentiality of Alcohol and Drug Abuse Patient Records regulations: The Federal rules restrict any use of the information to criminally investigate or prosecute any alcohol or drug abuse patient.[facility] the event this information is protected by the Federal Confidentiality of Alcohol and Drug Abuse Patient Records regulations: The Federal rules restrict any use of the information to criminally investigate or prosecute any alcohol or drug abuse patient.[facility] the event this information is protected by the Federal Confidentiality of Alcohol and Drug Abuse Patient Records regulations: The Federal rules restrict any use of the information to criminally investigate or prosecute any alcohol or drug abuse patient.[facility] the event this information is protected by the Federal Confidentiality of Alcohol and Drug Abuse Patient Records regulations: The Federal rules restrict any use of the information to criminally investigate or prosecute any alcohol or drug abuse patient.[facility]In the event this information is protected by the Federal Confidentiality of Alcohol and Drug Abuse Patient Records regulations: The Federal rules restrict any use of the information to criminally investigate or prosecute any alcohol or drug abuse patient.[facility] CenterIn the event this information is protected by the Federal Confidentiality of Alcohol and Drug Abuse Patient Records regulations: The Federal rules restrict any use of the information to criminally investigate or prosecute any alcohol or drug abuse patient.[facility] Reason for Visit (unrecogniz ed section and content) Reason Comments Orders Medication/labs Reason Comments Refill Request Reason Comments Obesity New Patient Reason Comments Obesity Weight Loss Surgery Reason Comments EKG Specialty Diagnoses / Procedures Referred By Catie perez Referred To Contact [facility] Diagnoses Body mass index 40.0-44.9, adult (HCC) Procedures ECG COMPLETE ECG ROUTINE ECG W/LEAST 12 LDS W/I&R Giulia, Cristy, CONCRETE MIXER.AIRCRAFT ENGINE MECHANIC OVERHAUL [address] [place] [address] [facility] [place] [address] [place] [address] Referral ID Status Reason Start Date Expiration Date V isits Requested Visits Authorized [id number] Closed Auto-Generate d Referral 05/28/2022 05/28/2023 1 1 Reason Comments 08/16/2022 (pseudo) Reason Onset Date Comments phone encounter 08/11/2022 Reason Comments Patient Update Reason Comments Patient Education Reassessment Reason Comments phone encounter Reason Comments Post Op Call Reason Comments Post-Op Visit Reason Comments Post-Op Visit Reason Onset Date Comments Yearly Exam 10/16/2022 Reason Comments Sore Throat Going on for 3wks, c oughing, headaches, chest hurts, lightheaded and dizzy due to coughing, chills a couple days ago, both ear pain (pressure), has taken mucines day/nyquil otc meds with no relief at all, Reason Comments Results Reason Comments Left sided pain Early Reason Comments US Reason Comments Mass Lump in lower left s derrell of abdomen x 1 day Reason Comments Initial OB Visit Reason Comments Radiology US Specialty Diagnoses / Procedures Referred By Catie perez Referred To Contact US IMAGING Diagnoses , location unknown Procedures US PREG TRANSABD <14 WEEKS LTD US UTERUS LIMITED 1/> FETUSES Angie Mora MD [address] [place] [address] Us Imaging [id number] Referral ID Status Reason Start Date Expiration Date V isits Requested Visits Authorized [id number] Closed Auto-Generate d Referral 12/01/2022 12/31/2023 1 1 Reason Comments Radiology US Specialty Diagnoses / Procedures Referred By Catie perez Referred To Contact [facility] Diagnoses Breast cyst, left Procedures US BREAST LTD LEFT US BREAST UNI REAL TIME WITH IMAGE LIMITED Kayy LongoRAYMOND.AIRCRAFT ENGINE MECHANIC OVERHAUL [address] [place] [address] Br Imaging [address] [place] [address] Referral ID Status Reason Start Date Expiration Date V isits Requested Visits Authorized [id number] Closed Auto-Generate d Referral 10/16/2022 11/15/2023 1 1 Reason Onset Date Comments Care 01/29/2023 Reason Comments Vomiting Care Teams (unrecognized sec tion and content) Rigging Foreman Relationship Specialty Start Date End Date Shakeel Villasenor MD [address] [place] [address] [phone] PCP - General Family Practice 03/20/21 Rigging Foreman Relationship Specialty Start Date End Date Shakeel Villasenor MD [address] [place] [id number] PCP - General Family Practice 03/20/21 Rigging Foreman Relationship Specialty Start Date End Date Shakeel Villasenor MD [address] [place] [phone] PCP - General Family Practice 03/20/21 Rigging Foreman Relationship Specialty Start Date End Date Shakeel Villasenor MD [address] [place] [phone] PCP - General Family Practice 03/20/21 Rigging Foreman Relationship Specialty Start Date End Date Shakeel Villasenor MD [address] [place] [phone] PCP - General Family Medicine 03/20/21 Rigging Foreman Relationship Specialty Start Date End Date Shakeel Villasenor MD [address] [place] [phone] PCP - General Family Medicine 03/20/21 Rigging Foreman Relationship Specialty Start Date End Date Shakeel Villasenor MD [address] [place] [address] PCP - General Family Medicine 03/20/21 Rigging Foreman Relationship Specialty Start Date End Date Shakeel Villasenor MD [address] [place] [address] PCP - General Family Medicine 03/20/21 Rigging Foreman Relationship Specialty Start Date End Date Shakeel Villasenor MD [address] [place] [address] PCP - General Family Medicine 03/20/21 Rigging Foreman Relationship Specialty Start Date End Date Shakeel Villasenor MD [address] [place] [address] PCP - General Family Medicine 03/20/21 Rigging Foreman Relationship Specialty Start Date End Date Shakeel Villasenor MD [address] [place] [address] PCP - General Family Medicine 03/20/21 Rigging Foreman Relationship Specialty Start Date End Date Shakeel Villasenor MD [address] [place] [address] PCP - General Family Medicine 03/20/21 Rigging Foreman Relationship Specialty Start Date End Date Shakeel Villasenor MD [address] [place] [address] PCP - General Family Medicine 03/20/21 Rigging Foreman Relationship Specialty Start Date End Date Shakeel Villasenor MD [address] [place] [address] PCP - General Family Medicine 03/20/21 Rigging Foreman Relationship Specialty Start Date End Date Shakeel Villasenor MD [address] [place] [address] PCP - General Family Medicine 03/20/21 Rigging Foreman Relationship Specialty Start Date End Date Shakeel Villasenor MD [address] [place] [address] PCP - General Family Medicine 03/20/21 Rigging Foreman Relationship Specialty Start Date End Date Shakeel Villasenro MD [address] [place] [address] PCP - General Family Medicine 03/20/21 Rigging Foreman Relationship Specialty Start Date End Date Shakeel Villasenor MD [address] [place] [address] PCP - General Family Medicine 03/20/21 Rigging Foreman Relationship Specialty Start Date End Date Shakeel Villasenor MD [address] [place] [address] PCP - General Family Medicine 03/20/21 Rigging Foreman Relationship Specialty Start Date End Date Shakeel Villasenor MD [address] [place] [address] PCP - General Family Medicine 03/20/21 Rigging Foreman Relationship Specialty Start Date End Date Shakeel Villasenor MD [address] [place] [address] PCP - General Family Medicine 03/20/21 Rigging Foreman Relationship Specialty Start Date End Date Shakeel Villasenor MD [address] [place] [address] PCP - General Family Medicine 03/20/21 Rigging Foreman Relationship Specialty Start Date End Date Shakeel Villasenor MD [address] [place] [address] PCP - General Family Medicine 03/20/21 FOR RECORDS PERTAINING TO PATIENTS WHO ARE OR HAVE BEEN ENROLLED IN A CHEMICAL DEPENDENCY/SUBSTANCEABUSE PROGRAM, SOME INFORMATION MAY BE OMITTED. This clinical summary was aggregated from multiple sources. Caution should be exercised in using it in the provision of clinical care. This summary normalizes information from multiple sources, and as a consequence, information in this document may materially change the coding, format and clinical context of patient data. In addition, data may be omitted in some cases. CLINICAL DECISIONS SHOULD BE BASED ON THE PRIMARY CLINICAL RECORDS. [employer] provides no warranty or guarantee of the accuracy or completeness of information in this document.
[2023-04-12 22:03] LABS: Red Blood Cells-Urine 0 SEEN /hpf (0-5)
[2023-04-12 22:04] LABS: Absolute Lymphocyte Count 2.44 X10^3/uL (0.83-4.51); Absolute Neutrophil Count 7.7 X10^3/uL (2.0-7.7); Basophil# 0.03 X10^3/uL; Basophil% 0.3 % (0-1); Eosinophil# 0.03 X10^3/uL; Eosinophils% 0.3 % (0-5); Hematocrit 30.5 % (37-47); Hemoglobin 9.3 g/dL (12.0-15.0); Lymphocyte # 2.44 X10^3/ul (0.83-4.51); Lymphocyte % 21.8 % (19-41); Mean Corp Hgb Conc 30.5 g/dL (32-36); Mean Corpuscular Hgb 25.8 pg (27.0-32.0); Mean Corpuscular Volume 84.7 fL (81-99); Mean Platelet Vol. 9.6 fl (6.2-12.0); Monocyte# 0.92 X10^3/uL; Monocyte% 8.2 % (0-10); NRBC Flagged by Analyzer 0 % (0-5); Neutrophil # 7.74 X10^3/uL (2.7-7.7); Neutrophil % 69.2 % (47-70); Platelet Count 273 K/mm3 (150-450); RBC Distribution Width CV 12.8 % (11.6-14.6); RBC Distribution Width SD 39.5 fl (35.1-43.9); White Blood Count 11.2 K/mm3 (4.4-11.0)
[2023-04-12] MEDS: 0.9% Normal Saline (1000mL) 1,000 ML 1000 ML IV (22:05)
[2023-04-12 22:09] LABS: Color, Urine Yellow (Yellow); Glucose, Dipstick Normal (Normal); Ketone-Dipstick Negative (Negative); Leukocyte Esterase-Dipstick 100 /ul (Negative); Nitrite-Dipstick Negative (Negative); Occult Blood-Urine Negative /ul (Negative); Protein-Dipstick Negative (Negative); Specific Gravity, Urine 1.015 (1.002-1.030); Urine Bilirubin Dipstick Negative (Negative); Urine Clarity Clear (Clear); Urine Urobilinogen 1 mg/dl (Normal); Urine pH 6.5 (5.0 - 8.0)
[2023-04-12 22:16] LABS: Bacteria 1+ /hpf (None Seen); Mucous, Urine RARE /hpf (<or=2+); Squamous Epithelial Cells - UA 0-5 SEEN /hpf (5-10); White Blood Cells 0-5 SEEN /hpf (0-5)
[2023-04-12 22:23] LABS: ALB/GLOB Ratio 0.6 RATIO (0.9-2.4); AST(SGOT) 13 U/L (15-37); Alanine Aminotransfer ALT/SGPT 15 U/L (13-56); Albumin, Serum 2.2 g/dL (3.2-5.0); Alkaline Phosphatase 104 U/L (45-117); Anion Gap 6 (5-15); BUN 5 mg/dL (7-18); BUN/Creat Ratio 14.7 RATIO (10-20); Calcium,Total 7.9 mg/dL (8.5-10.1); Chloride 113 mmol/L (98-107); Creatinine, Serum 0.34 mg/dL (0.55-1.02); EST Glomerular Filtration Rate 245 mL/min (>60); Est Glom Filt Rate - Afr Amer 297 mL/min (>60); Estimated Creatinine Clearance 248.84 ml/min; Globulin 3.9 g/dL (2.2-4.2); Glucose 86 mg/dL (74-106); Protein, Total 6.1 g/dL (6.4-8.2); Sodium Level 142 mmol/L (136-145)
[2023-04-12 22:46] VITALS: BP 110/83; BP 119/80; BP 123/87; PULSE 78; PULSE 82; PULSE 85
[2023-04-12 23:44] VITALS: BP 110/75; PULSE 73; RESP 17; O2SAT 98
--- NOTE | 2023-04-12 23:49 | EDS_ITS ---
HPI History of Present Illness Chief Complaint: Dizziness Informant: patient Narrative Narrative: 27-year-old female entering now her third trimester (G3, P2 Ab0) who follows with [facility] for obstetrics locally presenting to the emergency room. Patient states she was at work today was standing for about 15 minutes when she had a syncopal episode. She states she went to [facility] where she was evaluated given IV fluids was discharged. Patient notes that last week she had influenza. She states for the past 3 days she has had an occipital headache. She denies any light sensitivity. Is not positional in nature. She denies any arm leg face weakness or altered sensation. No rashes. She states that she feels very lightheaded with standing. Prior to her passing out she states she got black vision. She states when she stands she has black spots to start appearing in her vision. There is no vertiginous-like feeling. [facility] Medical History Gestational diabetes Gestational diabetes Home Medications vit no.95-ferrous fumarate 28 mg-folic acid 800 mcg tablet ( Multivitamins) 1 ea PO DAILY 02/14/18 [History Last Taken 10/16/19] acetaminophen 500 mg tablet 500 mg PO Q4H PRN PRN Pain Or Fever 05/24/19 [Histo ry Last Taken 05/24/19] Allergy/AdvReac Type Severity Reaction Status Date / Time cefdinir Allergy Vomiting Verified 04/12/23 19:37 morphine Allergy Rash Verified 04/12/23 19:37 peanut Allergy Anaphylaxis Verified 04/12/23 19:37 Social History household members: children Smoking Status: Never smoker ROS ROS ED Constitutional Constitutional ED: Denies chills, fever(s) or weight loss Eyes Eyes: Reports other Details: Black spots. Vision was standing ; Denies blurry vision, change in vision or diplopia ENT ENT ED: Denies ear pain, rhinorrhea or sore throat Cardiovascular Cardiovascular: Reports other Details: Syncope lightheadedness with standing ; Denies chest pain, orthopnea, palpitations or racing heartbeat Respiratory/Chest Respiratory/Chest: Denies cough, dyspnea or orthopnea Gastrointestinal Gastrointestinal: Denies abdominal pain, diarrhea, nausea or vomiting Genitourinary Genitourinary ED: Denies dysuria, hematuria or urinary frequency Musculoskeletal Musculoskeletal: Denies arthralgias or myalgias Integumentary Denies abscess or rash Neurologic Neurologic: Reports headache(s); Denies paresthesias or weakness Psychiatric Psychiatric: Denies anxiety, depression, suicidal ideation or suicidal thoughts Endocrine Endocrinology: Denies polydipsia, polyphagia or polyuria Allergic/Immunologic Allergic/Immunologic ED: Denies mouth swelling, tongue swelling or urticaria EXAM Physical Exam Const Vital Signs: 04/12/23 19:37 04/12/23 20:28 04/12/23 20:50 Temperature 97.7 F L Temperature Source Temporal Pulse Rate 101 H Pulse Rate [Lying] Pulse Rate [Sitting (for 1 minute prior to obtaining)] Pulse Rate [Standing (for 1 minute prior to obtaining)] Respiratory Rate 18 Respiratory Effort Normal Respiratory Pattern Normal Blood Pressure 133/82 H 117/79 Blood Pressure [Lying] Blood Pressure [Sitting (for 1 minute prior to obtaining)] Blood Pressure [Standing (for 1 minute prior to obtaining)] Blood Pressure Mean 99 91 Blood Pressure Mean [Lying] Blood Pressure Mean [Sitting (for 1 minute prior to obtaining)] Blood Pressure Mean [Standing (for 1 minute prior to obtaining)] Pulse Ox 99 04/12/23 22:46 04/12/23 23:44 Temperature Temperature Source Pulse Rate 73 Pulse Rate [Lying] 78 Pulse Rate [Sitting (for 1 minute prior to obtaining)] 82 Pulse Rate [Standing (for 1 minute prior to obtaining)] 85 Respiratory Rate 17 Respiratory Effort Respiratory Pattern Blood Pressure 110/75 Blood Pressure [Lying] 110/83 H Blood Pressure [Sitting (for 1 minute prior to obtaining)] 119/80 Blood Pressure [Standing (for 1 minute prior to obtaining)] 123/87 H Blood Pressure Mean 86 Blood Pressure Mean [Lying] 92 Blood Pressure Mean [Sitting (for 1 minute prior to obtaining)] 93 Blood Pressure Mean [Standing (for 1 minute prior to obtaining)] 99 Pulse Ox 98 Positive well nourished and well developed General Appearance ED: well developed HEENT Reports normocephalic, head/scalp atraumatic and moist mucous membranes Eyes PERRL and EOMs intact bilaterally Eyes Narrative: No photophobia. No obvious papilledema on the nondilated exam. Neck no lymphadenopathy, supple and no JVD Resp normal respiratory effort and clear to auscultation bilaterally Cardio regular rate, regular rhythm and no murmurs GI normal to inspection, nondistended, normoactive bowel sounds and non-tender GI Narrative: Enlarged uterus consistent with dates Palpation: soft Back/Spine no CVA tenderness and normal ROM Extremity normal to inspection General Extremety ED: Negative for edema General Extremity: Negative for edema Neuro oriented x3 and CN's II-XII intact bilaterally Sensorium / Orientation: alert Sensory Exam: No sensory level loss detected Motor Exam: strength 5/5 throughout Psych mental status grossly normal Mood & Affect: Negative for depressed or tearful Skin no rashes or lesions noted and no wounds MDM MDM MDM Narrative Medical decision making narrative: Basic blood work fairly unremarkable. I was not made aware that blood work had been drawn in triage while she was waiting for room assignment. She has a slight decrease in her hemoglobin probably dilutional from the liter of fluid she got here before I saw her and the fluids that she received at [facility]. CMP is essentially negative urinalysis negative for infection. No protein. No ketones. Patient is not orthostatic positive. When she initially checked into triage heart rate is 101 she is down into the 70s. heart tones in the 150s. At this point I am not seeing anything obvious to explain her symptoms. Headache differential is very broad. I doubt that this is meningitis stroke hemorrhage migraine thrombosis. I do not see evidence of dehydration. Patient states that she just does not feel right now when she stands. Very difficult to get a clear understanding of what she is feeling. At this point however I am not seeing anything obvious having admitted her into the hospital for. I did advise her that in the next 24 hours to please keep a close eye on herself and if she develops any new or concerning symptoms she needs to come to emergency. 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 History & Record Review Discussion w/independent historian: Patient Lab Data Attestation: I reviewed the patient's lab results. Labs: Laboratory Results - last 24 hr 04/12/23 04/12/23 19:50 21:57 WBC 10.1 11.2 H RBC 3.96 L 3.60 L Hgb 10.2 L 9.3 L Hct 33.4 L 30.5 L MCV 84.3 84.7 MCH 25.8 L 25.8 L MCHC 30.5 L 30.5 L RDW Std Deviation 38.8 39.5 RDW Coeff of Dorcas 12.7 12.8 Plt Count 324 273 MPV 9.7 9.6 Immature Gran % (Auto) 0.400 0.200 Neut % (Auto) 74.3 H 69.2 Lymph % (Auto) 18.6 L 21.8 [place] % (Auto) 6.2 8.2 Eos % (Auto) 0.3 0.3 Baso % (Auto) 0.2 0.3 Absolute Neuts (auto) 7.5 7.7 Absolute Lymphs (auto) 1.88 2.44 Nucleated RBC % 0 0 Sodium 141 142 Potassium 3.7 4.0 Chloride 112 H 113 H Carbon Dioxide 23.0 23.0 Anion Gap 6 6 BUN 4 L 5 L Creatinine 0.48 L 0.34 L Estim Creat Clear Calc 176.26 248.84 Est GFR (MDRD) Af Amer 198 297 Est GFR (MDRD) Non-Af 164 245 BUN/Creatinine Ratio 8.3 L 14.7 Glucose 133 H 86 Calcium 8.1 L 7.9 L Total Bilirubin 0.20 AST 13 L ALT 15 Alkaline Phosphatase 104 Total Protein 6.1 L Albumin 2.2 L Globulin 3.9 Albumin/Globulin Ratio 0.6 L Urine Color Yellow Urine Clarity Clear Urine pH 6.5 Ur Specific [place] 1.015 Urine Protein Negative Urine Glucose (UA) Normal Urine Ketones Negative Urine Occult Blood Negative Urine Nitrite Negative Urine Bilirubin Negative Urine Urobilinogen 1 H Ur Leukocyte Esterase 100 H Urine RBC 0 SEEN Urine WBC 0-5 SEEN Ur Squamous Epith Cells 0-5 SEEN Urine Bacteria 1+ Urine Mucus RARE EKG Initial EKG: Attestation: I personally reviewed and interpreted this EKG as follows: Comments: Normal sinus rhythm ventricular rate of 77 bpm Discharge Plan Triage Chief Complaint: Dizziness ED Provider: Jeff Thakur Dx/Rx/DC Orders Clinical Impression: Lightheadedness, Headache, , Syncope Prescriptions: No Action PNV cmb#95-ferrous fumarate-FA [ Multivitamins] 1 EACH tablet 1 ea PO DAILY acetaminophen 500 MG tablet 500 mg PO Q4H PRN PRN (Reason: Pain Or Fever) Stand Alone Forms: ED Work / School Excuse Primary Care Provider: Natalie Blum Referrals: Natalie Blum, PA [Primary Care Provider] - As Needed Activity Restrictions/Additional Instructions: 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 Please return to the emergency department with any concerns or worsening. Disposition Disposition: Home, Self Care Discharge Date/Time: 04/12/23 23:46
== END 2023-04-12 23:46 | disposition home or self-care (01) ==
PROVIDERS: Emergency Medicine; Emergency Provider Emergency Medicine; PCP Physician Assistant; Visit Provider Emergency Medicine
DX: O26.893 Other specified pregnancy related conditions, third trimester (principal); R55 Syncope and collapse; Z3A.00 Weeks of gestation of pregnancy not specified
CPT/HCPCS: 80048; 80053; 81001; 85025; 93005; 96360; 96361; 99284; J7030; A4216

== ENCOUNTER 2023-05-17 14:13 | Outpatient (CLI) | payer MEDICAID, SELFPAY ==
[2023-05-17 14:31] VITALS: PULSE 92; RESP 16; TEMP 37; O2SAT 97
[2023-05-17 14:32] VITALS: BP 111/73; PULSE 85
[2023-05-17 14:36] VITALS: BMI 31.9
[2023-05-17 15:02] LABS: Bedside Glucose 158 mg/dL (74-106)
--- NOTE | 2023-05-17 15:19 | OB.TRI.NOTE ---
HPI - General HPI Narrative LAINA DE LEÓN, is a 27 F at 29 weeks who presents to triage with lower abdominal cramping that started yesterday. She denies any loss of fluid or vaginal bleeding. Denies dysuria. History of GDM with previous and is just now starting to monitor blood glucose levels. Maternal Data Information BELEM Calculator Estimated Delivery Date Method Current WG Current Estimate 07/27/23 Manual 29w 6d PFSH PFS Medical History Gestational diabetes Gestational diabetes Home Medications vit no.95-ferrous fumarate 28 mg-folic acid 800 mcg tablet ( Multivitamins) 1 ea PO DAILY 02/14/18 [History Last Taken 10/16/19] acetaminophen 500 mg tablet 500 mg PO Q4H PRN PRN Pain Or Fever 05/24/19 [History Last Taken 05/24/19] aspirin 81 mg tablet,delayed release (Adult Low Dose Aspirin) 81 mg PO DAILY 05/17/23 [History Last Taken Unknown] ferrous sulfate 325 mg (65 mg iron) tablet (Feosol) 325 mg PO DAILY 05/17/23 [History Last Taken Unknown] Allergy/AdvReac Type Severity Reaction Status Date / Time cefdinir Allergy Vomiting Verified 05/17/23 14:34 morphine Allergy Rash Verified 05/17/23 14:34 peanut Allergy Anaphylaxis Verified 05/17/23 14:34 Social History household members: children Smoking Status: Never smoker History Elective abortions Hx Para 1 Spontaneous abortions Hx # Term Pregnancies Ectopic pregnancies Hx # Pregnancies Multiple births # of living children ROS Eyes Eyes: Denies blurry vision Cardiovascular Cardiovascular: Reports none; Denies chest pain at rest, chest pain with activity or dizziness Respiratory/Chest Respiratory/Chest: Denies cough or dyspnea Gastrointestinal Gastrointestinal: Reports none and other; Denies diarrhea or vomiting Genitourinary Genitourinary: Denies dysuria Musculoskeletal Musculoskeletal: Reports none Integumentary Integumentary: Reports none; Denies rash Neurologic Neurologic: Denies dizziness, headache(s) or other visual disturbances Psychiatric Psychiatric: Reports none Physical Exam Const alert and no apparent distress General Appearance: cooperative Orientation / Consciousness: awake Exam Limitations: no limitations HEENT normocephalic Eyes General Eye: normal appearance of both eyes Neck full ROM Chest inspection of chest normal Resp normal respiratory effort and normal air movement Effort and Inspection: symmetric chest movement Auscultation: clear to auscultation bilaterally Cardio regular rate GI soft to palpation, non-tender and non-distended Inspection: and other Back/Spine normal ROM Extremity full ROM, normal capillary refill and no calf tenderness Skin no rashes or lesions noted Neuro oriented x3 and CN's II-XII intact bilaterally Psych mental status grossly normal NST FHR Rate Baby A Baseline: 140 Variability:: Moderate Accelerations:: 10 x 10 Decelerations:: None NST Reactive:: Yes Uterine Activity:: none Assessment & Plan (1) 29 weeks gestation of : (2) Uterine cramping: (3) History of gastric bypass: PLAN: Plan UA- + glucose, ketones, urobili No contractions seen via TOCO or palpated Suspect dehydration- discussed increasing fluid intake and adding in electrolytes NST reactive BEDSIDE GLUCOSE - 158 D/C home with follow up in office t his week
[2023-05-17 15:25] LABS: Color, Urine Yellow (Yellow); Glucose, Dipstick 250 mg/dl (Normal); Ketone-Dipstick 15 mg/dl (Negative); Leukocyte Esterase-Dipstick Negative /ul (Negative); Nitrite-Dipstick Negative (Negative); Occult Blood-Urine Negative /ul (Negative); Protein-Dipstick 15 mg/dl (Negative); Urine Bilirubin Dipstick Negative (Negative); Urine Clarity Clear (Clear); Urine Urobilinogen 4 mg/dl (Normal)
== END 2023-05-17 16:10 | disposition home or self-care (01) ==
LOC: WPOUT 14:18 → WP 14:19
PROVIDERS: PCP Physician Assistant; Referring Provider Advanced Practice Midwife; Visit Provider Advanced Practice Midwife
DX: O99.891 Other specified diseases and conditions complicating pregnancy (principal); Z3A.29 29 weeks gestation of pregnancy; Z79.82 Long term (current) use of aspirin; N94.89 Other specified conditions associated with female genital organs and menstrual cycle; O99.843 Bariatric surgery status complicating pregnancy, third trimester
CPT/HCPCS: 59025; 59050; 81002; 82962; 99221; G0378

== ENCOUNTER 2023-06-09 11:00 | Observation (INO) | payer MEDICAID, SELFPAY ==
[2023-06-09] VITALS (18 sets, daily range): BP systolic 107–118; BP diastolic 60–76; PULSE 81–134; RESP 16; TEMP 36.6–37; O2SAT 97–98
[2023-06-09 09:49] LABS: Bedside Glucose 232 mg/dL (74-106)
[2023-06-09] MEDS: Insulin Human 75/25 Kwickpen 20 UNIT SC (11:19)
--- NOTE | 2023-06-09 13:53 | NURSING ---
120cc apple juice given for BGT 69
[2023-06-09 14:06] LABS: Bedside Glucose 69 mg/dL (74-106)
[2023-06-09 14:25] LABS: Bedside Glucose 121 mg/dL (74-106)
[2023-06-09 17:06] LABS: Bedside Glucose 96 mg/dL (74-106)
[2023-06-09] MEDS: Insulin Human 75/25 Kwickpen 10 UNIT SC (17:11)
[2023-06-09] MEDS: Acetaminophen 500 MG Tablet 1000 MG PO (18:33)
[2023-06-09 20:00] LABS: Bedside Glucose 83 mg/dL (74-106)
[2023-06-09 22:37] LABS: Bedside Glucose 58 mg/dL (74-106)
[2023-06-09 22:37] LABS: Bedside Glucose 90 mg/dL (74-106)
[2023-06-10 00:06] VITALS: BP 86/51; PULSE 75; RESP 16; TEMP 36.3; O2SAT 98
[2023-06-10 00:07] VITALS: BP 112/76; PULSE 77
[2023-06-10 03:03] VITALS: PULSE 74; RESP 16; TEMP 36.3; O2SAT 98
[2023-06-10 03:04] VITALS: BP 111/75; PULSE 71
[2023-06-10] MEDS: 0.9% Saline Lock 10 ML Syringe IV (03:06)
[2023-06-10 03:30] LABS: Bedside Glucose 71 mg/dL (74-106)
--- NOTE | 2023-06-10 06:09 | PCM.HP.OB ---
[facility] - General General Date of Admission: 06/09/23 Date of Service: 06/09/23 Chief Complaint: headache, high blood sugar HPI Narrative LAINA DE LEÓN, is a 27 F who presents with a headache, overall lousy feeling and a fasting blood sugar of 242. Started on NPH about 2-3 weeks ago, however did not actually start it until last week. Dose prescribed was 10 but but was actually taking 15 units with breakfast. Prior blood o was normal fastings and 170-180 postpradials. After starting NPH fasting increased to 180s and PP was over 200. Overall did not fell good and could tell that her BG was high. Short acting insulin was added 2 days ago however the pharmacy wouldn't fill it and she did not start. Upon arrival she had already taken her NPH. BG was 232. Original plan to add short acting with meals was followed and she was given given breakfast with 20 units. Calculated based on weight and gestational age. Her PP was 69. However, she did not eat the entire meal. She had half a bowl of cheerios and half a yogurt. She was given juice and it increased to 121 and an hour after 96. Next dose decreased as a result and PP was 86. She also ate a smaller meal. Patient states she is eating her daily amount of carbs but is doing so over 6-7 meals instead of 3. QHS was 58 treated with juice and jello. Her headache improved with decreasing BG and tylenol. Vital have been normal. Maternal Data Information BELEM Calculator Estimated Delivery Date Method Current WG Current Estimate 07/27/23 Manual 33w 2d Final BELEM: 07/27/23 Gestational age: 33+1 [facility] Medical History Gestational diabetes Gestational diabetes Home Medications vit no.95-ferrous fumarate 28 mg-folic acid 800 mcg tablet ( Multivitamins) 1 ea PO DAILY 02/14/18 [History Last Taken 10/16/19] acetaminophen 500 mg tablet 500 mg PO Q4H PRN PRN Pain Or Fever 05/24/19 [History Last Taken 05/24/19] aspirin 81 mg tablet,delayed release (Adult Low Dose Aspirin) 81 mg PO DAILY 05/17/23 [History Last Taken Unknown] ferrous sulfate 325 mg (65 mg iron) tablet (Feosol) 325 mg PO DAILY 05/17/23 [History Last Taken Unknown] insulin NPH isoph U-100 human 100 unit/mL (3 mL) subcutaneous pen (Humulin N NPH U-100 Insulin KwikPen) 15 unit subcut DAILY 06/09/23 [History Last Taken Unknown] Allergy/AdvReac Type Severity Reaction Status Date / Time cefdinir Allergy Vomiting Verified 06/09/23 09:47 morphine Allergy Rash Verified 06/09/23 09:47 peanut Allergy Anaphylaxis Verified 06/09/23 09:47 Social History household members: children Smoking Status: Never smoker History Elective abortions Hx Para 1 Spontaneous abortions Hx # Term Pregnancies Ectopic pregnancies Hx # Pregnancies Multiple births # of living children NST FHR Rate Baby A Variability:: Moderate Accelerations:: 15 x 15 Decelerations:: None NST Reactive:: Yes FHR Category:: Category I Uterine Activity:: quiet ROS Eyes Eyes: Denies blurry vision ENT HEENT: Reports headache(s) Cardiovascular Cardiovascular: Reports none; Denies chest pain at rest, chest pain with activity or dizziness Respiratory/Chest Respiratory/Chest: Denies cough or dyspnea Gastrointestinal Gastrointestinal: Reports none and other; Denies diarrhea or vomiting Genitourinary Genitourinary: Denies dysuria Musculoskeletal Musculoskeletal: Reports none Integumentary Integumentary: Reports none; Denies rash Neurologic Neurologic: Reports weakness; Denies dizziness, headache(s) or other visual disturbances Psychiatric Psychiatric: Reports none Vital Signs Vital Signs Vital Signs: 06/09/23 09:29 06/09/23 09:29 06/09/23 09:30 Temperature Temperature Source Pulse Rate 134 H 124 H Respiratory Rate Blood Pressure 112/70 BP Systolic 112 BP Diastolic 70 Pulse Ox 06/09/23 09:30 06/09/23 09:35 06/09/23 09:35 Temperature Temperature Source Pulse Rate 116 H Respiratory Rate Blood Pressure BP Systolic BP Diastolic Pulse Ox 98 98 06/09/23 09:40 06/09/23 09:40 06/09/23 09:45 Temperature Temperature Source Pulse Rate 112 H 115 H Respiratory Rate Blood Pressure BP Systolic BP Diastolic Pulse Ox 98 06/09/23 09:45 06/09/23 09:50 06/09/23 09:50 Temperature Temperature Source Pulse Rate 114 H Respiratory Rate Blood Pressure BP Systolic BP Diastolic Pulse Ox 98 98 06/09/23 09:55 06/09/23 09:55 06/09/23 10:00 Temperature Temperature Source Pulse Rate 104 H 101 H Respiratory Rate Blood Pressure BP Systolic BP Diastolic Pulse Ox 98 06/09/23 10:00 06/09/23 10:05 06/09/23 10:05 Temperature Temperature Source Pulse Rate 99 Respiratory Rate Blood Pressure BP Systolic BP Diastolic Pulse Ox 98 98 06/09/23 10:10 06/09/23 10:10 06/09/23 10:15 Temperature Temperature Source Pulse Rate 96 97 Respiratory Rate Blood Pressure BP Systolic BP Diastolic Pulse Ox 98 06/09/23 10:15 06/09/23 10:20 06/09/23 10:20 Temperature Temperature Source Pulse Rate 89 Respiratory Rate Blood Pressure BP Systolic BP Diastolic Pulse Ox 98 97 06/09/23 10:25 06/09/23 10:25 06/09/23 10:30 Temperature Temperature Source Pulse Rate 90 91 Respiratory Rate Blood Pressure BP Systolic BP Diastolic Pulse Ox 98 06/09/23 10:30 06/09/23 14:05 06/09/23 14:05 Temperature Temperature Source Pulse Rate 88 Respiratory Rate Blood Pressure 118/69 BP Systolic 118 BP Diastolic 69 Pulse Ox 97 06/09/23 15:52 06/09/23 15:52 06/09/23 19:32 Temperature Temperature Source Pulse Rate 81 Respiratory Rate Blood Pressure 107/60 113/76 BP Systolic 107 113 BP Diastolic 60 76 Pulse Ox 06/09/23 19:32 06/09/23 19:31 06/09/23 19:31 Temperature Temperature Source Pulse Rate 90 92 Respiratory Rate Blood Pressure BP Systolic BP Diastolic Pulse Ox 98 06/09/23 19:32 06/09/23 19:32 06/09/23 19:32 Temperature Temperature Source Temporal Pulse Rate 93 Respiratory Rate 16 Blood Pressure BP Systolic BP Diastolic Pulse Ox 06/09/23 19:32 06/09/23 19:32 06/10/23 00:06 Temperature 97.9 F Temperature Source Temporal Pulse Rate Respiratory Rate Blood Pressure BP Systolic BP Diastolic Pulse Ox 98 06/10/23 00:06 06/10/23 00:06 06/10/23 00:06 Temperature 97.3 F L Temperature Source Pulse Rate Respiratory Rate 16 Blood Pressure BP Systolic BP Diastolic Pulse Ox 98 06/10/23 00:06 06/10/23 00:06 06/10/23 00:07 Temperature Temperature Source Pulse Rate 75 Respiratory Rate Blood Pressure 86/51 L 112/76 BP Systolic 86 112 BP Diastolic 51 76 Pulse Ox 06/10/23 00:07 06/10/23 03:03 06/10/23 03:03 Temperature Temperature Source Temporal Pulse Rate 77 74 Respiratory Rate Blood Pressure BP Systolic BP Diastolic Pulse Ox 06/10/23 03:03 06/10/23 03:03 06/10/23 03:03 Temperature 97.4 F L Temperature Source Pulse Rate Respiratory Rate 16 Blood Pressure BP Systolic BP Diastolic Pulse Ox 98 06/10/23 03:04 06/10/23 03:04 Temperature Temperature Source Pulse Rate 71 Respiratory Rate Blood Pressure 111/75 BP Systolic 111 BP Diastolic 75 Pulse Ox Weight Weight: 85.275 kg Labs Labs Labs: Blood Type A NEGATIVE Antibody Screen NEGATIVE Hct 30.5 % (37-47) L Hgb 9.3 g/dL (12.0-15.0) L Obstetrics Ultrasound Group B Strep DNA Negative (Negative) Rhogam given: Yes Assessment & Plan (1) Gestational diabetes requiring insulin: PLAN: adding short acting insulin to regimen and fill will hospital pharmacy (2) 33 weeks gestation of : (3) Headache in , antepartum: PLAN: tylenol hydration and BG control
[2023-06-10 06:28] LABS: Bedside Glucose 69 mg/dL (74-106)
--- NOTE | 2023-06-10 08:03 | PN.OBGYN_ITS ---
Subjective Subjective Over night glucose 71 at 3 am. Snack at 10 with a qhs BG of 58. Fasting this am 69. Asymptomatic. Ordering breakfast. Discussed QHS snack and just NPH but 2 times a day. Super[employer] coming to see her this am. Objective Data Objective Data Vital Signs: Vital Signs Temp Pulse Resp BP Pulse Ox 97.4 F L 71 16 111/75 98 06/10/23 03:03 06/10/23 03:04 06/10/23 03:03 06/10/23 03:04 06/10/23 03:03 Weight: 85.275 kg Intake & Output: Intake and Output for Last 24 Hours 06/08/23 06/09/23 06/10/23 23:59 23:59 23:59 Intake Total 120 / 120 Balance 120 / 120 Lab / Micro Data Labs: Laboratory Results - last 24 hr 06/09/23 09:30: POC Glucose 232 H 06/09/23 13:47: POC Glucose 69 L 06/09/23 14:06: POC Glucose 121 H 06/09/23 15:02: POC Glucose 96 06/09/23 19:31: POC Glucose 83 06/09/23 21:58: POC Glucose 58 L 06/09/23 22:17: POC Glucose 90 06/10/23 03:01: POC Glucose 71 L 06/10/23 06:02: POC Glucose 69 L ROS Constitutional Constitutional: Denies headache(s) Eyes Eyes: Denies change in vision ENT HEENT: Reports systems reviewed and no addt'l complaints, except as documented Cardiovascular Cardiovascular: Denies chest pain, dyspnea or lightheadedness Respiratory/Chest Respiratory/Chest: Denies dyspnea Gastrointestinal Gastrointestinal: Denies change in bowel habits Genitourinary Genitourinary: Denies burning urination or genital lesions Integumentary Integumentary: Denies rash Neurologic Neurologic: Denies confusion, dizziness, headache(s), numbness or weakness Physical Exam Const alert and oriented x3 General Appearance: cooperative and comfortable HEENT normocephalic and head/scalp atraumatic Eyes PERRL and EOMs intact bilaterally Neck full ROM Resp normal respiratory effort Extremity normal to inspection and full ROM Neuro oriented x3 and CN's II-XII intact bilaterally Psych mental status grossly normal NST FHR Rate Baby A NST Reactive:: Yes Assessment & Plan (1) Gestational diabetes requiring insulin: PLAN: NPH 20 am and 10 QHS 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 Has office appointments scheduled (2) 33 weeks gestation of :
--- NOTE | 2023-06-10 08:40 | PCM.DC.SUM ---
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 Has office appointments scheduled (2) 33 weeks gestation of : Status: Acute Code(s): Z3A.33 - 33 weeks gestation of Medications at Discharge Home Medications vit no.95-ferrous fumarate 28 mg-folic acid 800 mcg tablet ( Multivitamins) 1 ea PO DAILY 02/14/18 acetaminophen 500 mg tablet 500 mg PO Q4H PRN PRN Pain Or Fever 05/24/19 aspirin 81 mg tablet,delayed release (Adult Low Dose Aspirin) 81 mg PO DAILY 05/17/23 ferrous sulfate 325 mg (65 mg iron) tablet (Feosol) 325 mg PO DAILY 05/17/23 insulin NPH isoph U-100 human 100 unit/mL (3 mL) subcutaneous pen (Humulin N NPH U-100 Insulin KwikPen) 10 unit (0.1 mL) subcut QHS #0 mL 06/10/23 insulin NPH isoph U-100 human 100 unit/mL (3 mL) subcutaneous pen (Humulin N NPH U-100 Insulin KwikPen) 20 unit (0.2 mL) subcut BREAKFAST #0 mL 06/10/23 Hospital Course Operations None Procedures None Summary of Care Provided Minutes Spent on Discharge: 25 Hospital Course: Admitted for DIEGO and elevated BG. BG decreased with short acting insulin. Highest in patient BG 121. Improved FBG with QHS snack. New plan - NPH 20 in am and 10 QHS with snack Physical Exam Const alert and no apparent distress General Appearance: cooperative HEENT normocephalic Resp normal respiratory effort Cardio regular rate GI soft to palpation GI Narrative: gravid, nontender, appropriate for gestational age Extremity no calf tenderness General Extremity: edema Skin no wounds Rashes: No rashes noted Psych activity/motor behavior normal Weight / BMI Weight Weight: 85.275 kg ABG / Lab / Microbiology Data Laboratory: Laboratory Results - last 24 hr 06/09/23 09:30: POC Glucose 232 H 06/09/23 13:47: POC Glucose 69 L 06/09/23 14:06: POC Glucose 121 H 06/09/23 15:02: POC Glucose 96 06/09/23 19:31: POC Glucose 83 06/09/23 21:58: POC Glucose 58 L 06/09/23 22:17: POC Glucose 90 06/10/23 03:01: POC Glucose 71 L 06/10/23 06:02: POC Glucose 69 L D/C Instructions Discharge Diet: No restrictions and Carb Control Diet Discharge Activity: Return to Normal Activity Additional Instructions: call office for low BG or BG over 200 Please Follow Up With: Inna Garcia MD When: 06/14/23 - scheduled Meaningful Use Info Meaningful Use Diagnoses (Choose all that apply): None applicable Discharge Plan Admission Admit Date/Time: 06/09/23 11:00 Attending Provider: Inna Garcia Primary Care Provider: Natalie Blum Instructions Additional Instructions / Restrictions: NPH 20 units with breakfast. 10 units qhs. QHS snack Discharge Orders/Prescriptions Prescriptions: New Humulin N NPH Insulin KwikPen 100 unit/mL (3 mL) Insulin Pen 20 unit subcut BREAKFAST Qty: 0 0RF Humulin N NPH Insulin KwikPen 100 unit/mL (3 mL) Insulin Pen 10 unit subcut QHS Qty: 0 0RF Continued PNV cmb#95-ferrous fumarate-FA [ Multivitamins] 1 EACH tablet 1 ea PO DAILY acetaminophen 500 MG tablet 500 mg PO Q4H PRN PRN (Reason: Pain Or Fever) aspirin [Adult Low Dose Aspirin] 81 mg tablet,delayed release (DR/EC) 81 mg PO DAILY ferrous sulfate [Feosol] 325 mg (65 mg iron) tablet 325 mg PO DAILY Discontinued Humulin N NPH Insulin KwikPen 100 unit/mL (3 mL) insulin pen 15 unit subcut DAILY Referrals / Follow Up: Natalie Blum PA [Primary Care Provider] - Disposition Disposition (needs filled in before D/C Order can be placed): Home, Self Care
[2023-06-10 08:42] LABS: Bedside Glucose 76 mg/dL (74-106)
[2023-06-10 09:42] VITALS: BP 98/56; PULSE 130; O2SAT 99
[2023-06-10 13:29] VITALS: BP 122/76; PULSE 84
== END 2023-06-10 11:46 | disposition home or self-care (01) ==
LOC: WPOUT 06-10 07:21 → WP 06-10 07:21
PROVIDERS: Advanced Practice Midwife; Admitting Provider Obstetrics & Gynecology; PCP Physician Assistant; Referring Provider Obstetrics & Gynecology; Visit Provider Obstetrics & Gynecology
DX: O24.414 Gestational diabetes mellitus in pregnancy, insulin controlled (principal); O99.891 Other specified diseases and conditions complicating pregnancy; R51.9 Headache, unspecified; Z79.82 Long term (current) use of aspirin; Z3A.33 33 weeks gestation of pregnancy
CPT/HCPCS: 59025; 59050; 82962; 97803; 99221; A4216; G0378

== ENCOUNTER 2023-06-11 21:55 | Outpatient (CLI) | payer MEDICAID, SELFPAY ==
[2023-06-11 22:08] VITALS: BP 120/73; PULSE 101
[2023-06-11 22:14] VITALS: RESP 18; TEMP 36.7
[2023-06-11 22:18] VITALS: BMI 32.4
[2023-06-11 22:42] LABS: Bedside Glucose 88 mg/dL (74-106)
[2023-06-11] MEDS: Ondansetron ODT 4 MG Tablet PO (23:16)
[2023-06-11 23:51] VITALS: PULSE 86; O2SAT 98
[2023-06-11 23:56] VITALS: PULSE 89; O2SAT 99
[2023-06-12 00:01] VITALS: PULSE 86; O2SAT 99
[2023-06-12 00:06] VITALS: PULSE 96; O2SAT 98
[2023-06-12 00:11] VITALS: PULSE 89; O2SAT 99
--- NOTE | 2023-06-12 08:20 | OB.TRI.NOTE ---
HPI - General General Date of Service: 06/11/23 HPI Narrative LAINA DE LEÓN, is a 27 F who presents c/o nausea, vomiting and headache since last night- was seen in office earlier in day. having hard time controlling BS- did not take NPH b/c BS was low. in 80s, last had full meal 06/10/23 6pm. in office was able to keep down apple juice and crackers. No fevers, no abdominal pain. Maternal Data Information BELEM Calculator Estimated Delivery Date Method Current WG Current Estimate 07/27/23 Manual 33w 4d PFSH PFSH Medical History Gestational diabetes Gestational diabetes Home Medications vit no.95-ferrous fumarate 28 mg-folic acid 800 mcg tablet ( Multivitamins) 1 ea PO DAILY 02/14/18 [History Last Taken 10/16/19] acetaminophen 500 mg tablet 500 mg PO Q4H PRN PRN Pain Or Fever 05/24/19 [History Last Taken 05/24/19] aspirin 81 mg tablet,delayed release (Adult Low Dose Aspirin) 81 mg PO DAILY 05/17/23 [History Last Taken Unknown] ferrous sulfate 325 mg (65 mg iron) tablet (Feosol) 325 mg PO DAILY 05/17/23 [History Last Taken Unknown] insulin NPH isoph U-100 human 100 unit/mL (3 mL) subcutaneous pen (Humulin N NPH U-100 Insulin KwikPen) 10 unit (0.1 mL) subcut QHS #0 mL 06/10/23 [Rx Last Taken Unknown] insulin NPH isoph U-100 human 100 unit/mL (3 mL) subcutaneous pen (Humulin N NPH U-100 Insulin KwikPen) 20 unit (0.2 mL) subcut BREAKFAST #0 mL 06/10/23 [Rx Last Taken Unknown] Allergy/AdvReac Type Severity Reaction Status Date / Time cefdinir Allergy Vomiting Verified 06/11/23 22:20 morphine Allergy Rash Verified 06/11/23 22:20 peanut Allergy Anaphylaxis Verified 06/11/23 22:20 Social History household members: children Smoking Status: Never smoker History Elective abortions Hx Para 1 Spontaneous abortions Hx # Term Pregnancies Ectopic pregnancies Hx # Pregnancies Multiple births # of living children NST FHR Rate Baby A Baseline: 130s Variability:: Moderate Accelerations:: 15 x 15 Decelerations:: None NST Reactive:: Yes FHR Category:: Category I Uterine Activity:: occasional Assessment & Plan (1) Headache in , antepartum: (2) Gestational diabetes requiring insulin: (3) History of gastric bypass: (4) 33 weeks gestation of : (5) Nausea and vomiting during : PLAN: Plan @ 33.4 weeks GDMA2, h/o Gastric Bypass 1) difficulty w/ BS control at this time- hold NPH pt was given parameters in office- encouraged for higher protein snacks 2) zofran given in L&D 3) able to tolerate PO- per nursing No vomiting in L&D 4) VS stable 5) BS 88 on L&D 6) dc home 7) NST- cat1 reactive- well being established. pt has followup in office on 06/14/23
== END 2023-06-12 00:15 | disposition home or self-care (01) ==
LOC: WPOUT 22:03 → WP 22:03
PROVIDERS: PCP Physician Assistant; Referring Provider Obstetrics & Gynecology; Visit Provider Obstetrics & Gynecology
DX: O99.891 Other specified diseases and conditions complicating pregnancy (principal); O21.9 Vomiting of pregnancy, unspecified; R51.9 Headache, unspecified; Z79.82 Long term (current) use of aspirin; O24.414 Gestational diabetes mellitus in pregnancy, insulin controlled; Z3A.33 33 weeks gestation of pregnancy; O99.843 Bariatric surgery status complicating pregnancy, third trimester
CPT/HCPCS: 59025; 59050; 82962; 99221; G0378

== ENCOUNTER 2023-07-02 14:15 | Outpatient (CLI) | payer MEDICAID, SELFPAY ==
[2023-07-02 14:43] VITALS: BP 125/80; PULSE 100
[2023-07-02 15:05] LABS: Hematocrit 34.9 % (37-47); Hemoglobin 10.5 g/dL (12.0-15.0); Mean Corp Hgb Conc 30.1 g/dL (32-36); Mean Corpuscular Volume 86.4 fL (81-99); Mean Platelet Vol. 10.2 fl (6.2-12.0); POSITIVE MORPHOLOGY YES; Platelet Count 288 K/mm3 (150-450); RBC Distribution Width CV 20.1 % (11.6-14.6); Red Blood Count 4.04 M/mm3 (4.2-5.4)
[2023-07-02 15:06] LABS: Scan Indicated on CBC? Y/N YES- FLAGS NOTED
--- NOTE | 2023-07-02 15:21 | OB.TRI.NOTE ---
HPI - General General Date of Admission: 07/02/23 Date of Service: 07/02/23 Chief Complaint: rule out pre e HPI Narrative LAINA DE LEÓN, is a 28 F who presents with headache, vision changes that resolve when she removes her glasses, RUQ pain when she pushes on her abdomen. The headache has been present for days and is noted at her last visit. Maternal Data Information BELEM Calculator Estimated Delivery Date Method Current WG Current Estimate 07/27/23 Manual 36w 3d PFSH PFSH Medical History Gestational diabetes Gestational diabetes Home Medications vit no.95-ferrous fumarate 28 mg-folic acid 800 mcg tablet ( Multivitamins) 1 ea PO DAILY 02/14/18 [History Last Taken 10/16/19] acetaminophen 500 mg tablet 500 mg PO Q4H PRN PRN Pain Or Fever 05/24/19 [History Last Taken 05/24/19] aspirin 81 mg tablet,delayed release (Adult Low Dose Aspirin) 81 mg PO DAILY 05/17/23 [History Last Taken Unknown] ferrous sulfate 325 mg (65 mg iron) tablet (Feosol) 325 mg PO DAILY 05/17/23 [History Last Taken Unknown] insulin NPH isoph U-100 human 100 unit/mL (3 mL) subcutaneous pen (Humulin N NPH U-100 Insulin KwikPen) 10 unit (0.1 mL) subcut QHS #0 mL 06/10/23 [Rx Last Taken Unknown] insulin NPH isoph U-100 human 100 unit/mL (3 mL) subcutaneous pen (Humulin N NPH U-100 Insulin KwikPen) 20 unit (0.2 mL) subcut BREAKFAST #0 mL 06/10/23 [Rx Last Taken Unknown] Allergy/AdvReac Type Severity Reaction Status Date / Time cefdinir Allergy Vomiting Verified 06/11/23 22:20 morphine Allergy Rash Verified 06/11/23 22:20 peanut Allergy Anaphylaxis Verified 06/11/23 22:20 Social History household members: children Smoking Status: Never smoker History Elective abortions Hx Para 1 Spontaneous abortions Hx # Term Pregnancies Ectopic pregnancies Hx # Pregnancies Multiple births # of living children
[2023-07-02 15:42] LABS: Protein, Urine (Random) 39.1 mg/dL (<11.9); Protein:Creat Ratio 270 mg/g CRE (0-200)
[2023-07-02] MEDS: LACTATED RINGERS 1,000 ML 999 ML IV (15:45)
[2023-07-02 15:47] LABS: AST(SGOT) 14 U/L (15-37); Alanine Aminotransfer ALT/SGPT 14 U/L (13-56); Creatinine, Serum 0.76 mg/dL (0.55-1.02); EST Glomerular Filtration Rate 96 mL/min (>60); Est Glom Filt Rate - Afr Amer 117 mL/min (>60); Uric Acid 3.4 mg/dL (2.6-6.0)
--- NOTE | 2023-07-02 15:48 | OB.TRI.NOTE ---
HPI - General General Date of Admission: 07/02/23 Date of Service: 07/02/23 Chief Complaint: rule out pre e HPI Narrative LAINA DE LEÓN, is a 28 F who presents with a headache. She has had an off and on headache for a few days. She says today the headache feels different because it is more generalized rather than frontal. She feels it is a pulsating DIEGO 7/10 and not improved with Tylenol this morning. She reports vision changes when she takes her glasses off. She has nausea but no vomiting. Eating OK. She has a sharp RUQ pain when she pushes on her upper abdomen. No ctx, vb, lof. Good FM. She had an appointment this morning and says she was going to mention the headache, but forgot to discuss her headache at the visit. She was seen earlier this week for an appointment and had a headache at that time. She has been checking her blood pressures at home and states they have all been normal. Maternal Data Information BELEM Calculator Estimated Delivery Date Method Current WG Current Estimate 07/27/23 Manual 36w 3d [facility] Medical History Gestational diabetes Gestational diabetes Home Medications vit no.95-ferrous fumarate 28 mg-folic acid 800 mcg tablet ( Multivitamins) 1 ea PO DAILY 02/14/18 [History Last Taken 10/16/19] acetaminophen 500 mg tablet 500 mg PO Q4H PRN PRN Pain Or Fever 05/24/19 [History Last Taken 05/24/19] aspirin 81 mg tablet,delayed release (Adult Low Dose Aspirin) 81 mg PO DAILY 05/17/23 [History Last Taken Unknown] ferrous sulfate 325 mg (65 mg iron) tablet (Feosol) 325 mg PO DAILY 05/17/23 [History Last Taken Unknown] insulin NPH isoph U-100 human 100 unit/mL (3 mL) subcutaneous pen (Humulin N NPH U-100 Insulin KwikPen) 10 unit (0.1 mL) subcut QHS #0 mL 06/10/23 [Rx Last Taken Unknown] insulin NPH isoph U-100 human 100 unit/mL (3 mL) subcutaneous pen (Humulin N NPH U-100 Insulin KwikPen) 20 unit (0.2 mL) subcut BREAKFAST #0 mL 06/10/23 [Rx Last Taken Unknown] Allergy/AdvReac Type Severity Reaction Status Date / Time cefdinir Allergy Vomiting Verified 06/11/23 22:20 morphine Allergy Rash Verified 06/11/23 22:20 peanut Allergy Anaphylaxis Verified 06/11/23 22:20 Social History household members: children Smoking Status: Never smoker History Elective abortions Hx Para 1 Spontaneous abortions Hx # Term Pregnancies Ectopic pregnancies Hx # Pregnancies Multiple births # of living children Physical Exam Const alert and no apparent distress General Appearance: comfortable HEENT normocephalic Resp normal respiratory effort GI soft to palpation and non-distended GI Narrative: +minimal tenderness in epigastric area and RUQ. No rebounding, no guarding, no rigidity Extremity Extremity Narrative: Patellar reflexes 2+ and no clonus, no swelling NST FHR Rate Baby A Baseline: 130 Variability:: Moderate Accelerations:: 15 x 15 Decelerations:: None NST Reactive:: Yes FHR Category:: Category I Uterine Activity:: no contractions Assessment & Plan (1) 36 weeks gestation of : PLAN: Pre e labs normal. BP normal. Suspect migraine headache with nausea. Patient desired IVF bolus and migraine cocktail. Cont to check BP's at home. Discussed pre e signs and symptoms, and reasons to call or come in. She has a visit on Wednesday and an induction scheduled for 37 weeks. (2) Headache in :
[2023-07-02 15:49] VITALS: BP 119/81; PULSE 88
[2023-07-02 15:58] LABS: Differential Comment SEE COMMENTS
[2023-07-02 16:03] VITALS: BMI 34.0
[2023-07-02 16:06] VITALS: BP 112/83; PULSE 88
[2023-07-02] MEDS: DiphenhydrAMINE 50 MG/ML Syringe 25 MG IV (16:16)
[2023-07-02] MEDS: Metoclopramide 10 MG/2 ML Vial 5 MG IV (16:17)
[2023-07-02 16:21] VITALS: BP 132/88; PULSE 85
[2023-07-02 16:37] VITALS: BP 134/87; PULSE 78
[2023-07-02 16:51] VITALS: BP 125/87; PULSE 75
== END 2023-07-02 17:00 | disposition home or self-care (01) ==
LOC: WPOUT 14:19 → WP 14:19
PROVIDERS: Obstetrics & Gynecology; PCP Physician Assistant; Referring Provider Advanced Practice Midwife; Visit Provider Advanced Practice Midwife
DX: O99.891 Other specified diseases and conditions complicating pregnancy (principal); Z79.4 Long term (current) use of insulin; R51.9 Headache, unspecified; R10.11 Right upper quadrant pain; Z3A.36 36 weeks gestation of pregnancy; Z79.82 Long term (current) use of aspirin; Z79.899 Other long term (current) drug therapy
CPT/HCPCS: 96374; 96375; 96361; 36415; 59025; 59050 ×2; 82565; 82570; 84156; 84450; 84460; 84550; 85027; G0378 ×2; J7120; 99221

== ENCOUNTER 2023-07-04 09:48 | Inpatient (IN) | payer MEDICAID, SELFPAY ==
[2023-07-04] VITALS (41 sets, daily range): BP systolic 113–143; BP diastolic 71–99; PULSE 68–106; RESP 16–18; TEMP 36.3–37.2; O2SAT 97–100; BMI 34.2
--- NOTE | 2023-07-04 | PLAC_PTH ---
PATIENT: LAINA DE LEÓN LOC: [facility] U#:[id number] AGE/SX: 28/F ROOM: WP006 RE07/04/[address]: Dr. Mariam Edwards DO : 1995 BED: 1 DIS: 07/06/2023 SPEC #: [id number] RECD: 07/05/23 10:25 STATUS: JIMI GA #: [id number] REYNALDO: 07/04/23 00:[address]: Mariam dEwards DEPT: SURGICAL PATHOLOGY RECD BY: Rk Coates ENTERED: 07/05/23 10:25 SP TYPE: PLACENTA OTHR DR: SHAYY Alejandro Tissues: Placenta, NOS Procedures: Surgery Specimen Level V HEADER OPERATION: Vaginal delivery PRE-OP DIAGNOSIS: Possible abruption TISSUE SUBMITTED: Placenta MICROSCOPIC DIAGNOSIS Placenta: Placental disc - third trimester placenta (555 gm). Membranes - no pathologic diagnosis. Umbilical cord - three blood vessels and no pathologic diagnosis. SJ:mr 07/07/23 MICROSCOPIC DESCRIPTION Slides are reviewed. GROSS DESCRIPTION SPECIMEN: PLACENTA / CLINICAL INFORMATION: A. Weight: 3.19 kg B. Gestational Age: 36 weeks C. Sex: Female PLACENTAL WEIGHT (POST FIXATION): 555 gm PLACENTAL DIMENSIONS: 19.0 x 16.0 x 4.0 cm PLACENTAL SHAPE: Usual ovoid PLACENTAL WEIGHT FOR GESTATIONAL AGE: Within 10-99th percentile MEMBRANES - Present A. Insertion: Marginal B. Site of rupture from edge: 10.0 cm from edge of placental disc C. Color of membrane: Barba-allison D. Abnormalities: None UMBILICAL CORD - Present A. Color: Barba-allison B. Insertion: Paracentral C. Length: 37.0 cm D. Diameter: 1.2 cm E. Number of vessels: Three F. Abnormalities: None PLACENTAL DISC - Present A. Color of surface: Barba-allison B. surface abnormalities: None C. Maternal cotyledons: Intact with minimal tears D. Attached retro placental clot: No clot E. Cut surface: Dark red and spongy F. Lesions: None G. Separate clot: Absent SECTIONS SUBMITTED: 1. Membrane roll 2. Cord, maternal end 3. Cord, end 4. Placental disc, and maternal surfaces 5. Placental disc, and maternal surfaces 6. Placental disc, and maternal surfaces /mr 07/06/2023TC:4 CPT: 36004
[2023-07-04 07:46] LABS: Bedside Glucose 75 mg/dL (74-106)
[2023-07-04] MEDS: Lactated Ringers 1,000 ML 999 ML IV (08:00)
[2023-07-04 08:15] LABS: Absolute Lymphocyte Count 2.09 X10^3/uL (0.83-4.51); Absolute Neutrophil Count 9.5 X10^3/uL (2.0-7.7); Basophil# 0.05 X10^3/uL; Basophil% 0.4 % (0-1); Eosinophil# 0.09 X10^3/uL; Eosinophils% 0.7 % (0-5); Hematocrit 34.3 % (37-47); Hemoglobin 10.6 g/dL (12.0-15.0); Lymphocyte # 2.09 X10^3/ul (0.83-4.51); Lymphocyte % 16.4 % (19-41); Mean Corp Hgb Conc 30.9 g/dL (32-36); Mean Corpuscular Hgb 25.9 pg (27.0-32.0); Mean Corpuscular Volume 83.9 fL (81-99); Monocyte# 0.94 X10^3/uL; Monocyte% 7.4 % (0-10); NRBC Flagged by Analyzer 0 % (0-5); Neutrophil # 9.51 X10^3/uL (2.7-7.7); Neutrophil % 74.6 % (47-70); Platelet Count 285 K/mm3 (150-450); RBC Distribution Width CV 19.9 % (11.6-14.6); RBC Distribution Width SD 61.1 fl (35.1-43.9); Red Blood Count 4.09 M/mm3 (4.2-5.4); White Blood Count 12.7 K/mm3 (4.4-11.0)
[2023-07-04 08:45] LABS: International Normalized Ratio 1.1
[2023-07-04 08:46] LABS: Partial Thromboplast Time 27.3 Seconds (24.1-36.2)
[2023-07-04 08:47] LABS: Fibrinogen 529 mg/dl (203-444)
--- NOTE | 2023-07-04 08:50 | PCM.HP.OB ---
HPI - General General Date of Service: 07/04/23 Chief Complaint: bleeding HPI Narrative LAINA DE LEÓN, is a 28 F who presents with vaginal bleeding. The patient is a who presents at 36w5d with bleeding. She states she woke up this morning after feeling a gush and noticed blood soaking through her pants, and onto her bed. She is feeling ctx's as well. No leaking fluid. Good FM. DIEGO from Wednesday has improved. Maternal Data Information BELEM Calculator Estimated Delivery Date Method Current WG Current Estimate 07/27/23 Manual 36w 5d PFSH PFS Medical History (Updated 07/04/23 @ 09:[address] Mariam Edwards, DO) Gestational diabetes Gestational diabetes Polyhydramnios Home Medications vit no.95-ferrous fumarate 28 mg-folic acid 800 mcg tablet ( Multivitamins) 1 ea PO DAILY 02/14/18 [History Last Taken 10/16/19] acetaminophen 500 mg tablet 500 mg PO Q4H PRN PRN Pain Or Fever 05/24/19 [History Last Taken 05/24/19] aspirin 81 mg tablet,delayed release (Adult Low Dose Aspirin) 81 mg PO DAILY 05/17/23 [History Last Taken Unknown] ferrous sulfate 325 mg (65 mg iron) tablet (Feosol) 325 mg PO DAILY 05/17/23 [History Last Taken Unknown] insulin NPH isoph U-100 human 100 unit/mL (3 mL) subcutaneous pen (Humulin N NPH U-100 Insulin KwikPen) 16 unit subcut QHS Diabetes 07/04/23 [History Last Taken Unknown] insulin NPH isoph U-100 human 100 unit/mL (3 mL) subcutaneous pen (Humulin N NPH U-100 Insulin KwikPen) 50 unit subcut BREAKFAST Diabetes 07/04/23 [History Last Taken 07/03/23] Allergy/AdvReac Type Severity Reaction Status Date / Time cefdinir Allergy Vomiting Verified 06/11/23 22:20 morphine Allergy Rash Verified 06/11/23 22:20 peanut Allergy Anaphylaxis Verified 06/11/23 22:20 Surgical History (Updated 07/04/23 @ 08:26 by Melany Goyal) Gastric bypass status for obesity History of cholecystectomy Social History household members: children Smoking Status: Never smoker History Elective abortions Hx Para 2 Spontaneous abortions Hx # Term Pregnancies Ectopic pregnancies Hx # Pregnancies Multiple births # of living children NST FHR Rate Baby A Baseline: 140 Variability:: Moderate Accelerations:: 15 x 15 Decelerations:: None NST Reactive:: Yes FHR Category:: Category I Uterine Activity:: ctx's q 1-3 min Vital Signs Vital Signs Vital Signs: 07/04/23 07:03 07/04/23 07:03 07/04/23 07:03 Temperature Temperature Source Temporal Pulse Rate 72 Respiratory Rate Blood Pressure 139/95 H BP Systolic 139 BP Diastolic 95 07/04/23 07:03 07/04/23 07:03 07/04/23 08:29 Temperature 97.5 F L Temperature Source Pulse Rate Respiratory Rate 18 Blood Pressure 122/78 H BP Systolic 122 BP Diastolic 78 07/04/23 08:29 07/04/23 08:29 07/04/23 08:29 Temperature Temperature Source Temporal Pulse Rate 80 Respiratory Rate 16 Blood Pressure BP Systolic BP Diastolic 07/04/23 08:29 Temperature 98.9 F Temperature Source Pulse Rate Respiratory Rate Blood Pressure BP Systolic BP Diastolic Weight Weight: 193 lb Body Mass Index (BMI) 34.2 Physical Exam Const alert and no apparent distress General Appearance: comfortable HEENT normocephalic Resp normal respiratory effort GI soft to palpation, non-tender and non-distended Narrative: Cvx 4-5/60. Cervix is soft and posterior. BBOW on exam and unable to palpate head. Labs Labs Labs: Blood Type A NEGATIVE Antibody Screen NEGATIVE Hct 34.3 % (37-47) L Hgb 10.6 g/dL (12.0-15.0) L Obstetrics Ultrasound Syphilis Total Ab Pending Group B Strep DNA Negative (Negative) Rhogam given: Yes Assessment & Plan (1) 36 weeks gestation of : PLAN: - Admit for observation - GBS negative on 06/21/23 - Plans epidural for pain control - Cervix 4-5 cm on admission and on 1 hour recheck - Bedside TAUS shows subjective polyhydramnios and vertex presentation - Will recheck again in 2 hours. [place] with ctx's q 1-3 min, however patient comfortable appearing and cervix posterior - Discussed risk of prematurity with delivery at this gestational age - Discussed would not recommend BMZ for lung maturity given insulin requiring GDM and 36w5d (2) Gestational diabetes requiring insulin: PLAN: - BG check on admission - Diabetic protocol if admitted for labor (3) History of gastric bypass: (4) Polyhydramnios affecting : PLAN: - EFW 3,025 g 83% on 06/25/23 - JOSY on 07/02/23 showing polyhydramnios 33.5 cm - Discussed risks associated with polyhydramnios (5) Rh negative state in antepartum period: (6) History of gestational hypertension: PLAN: - BP's have been normal except isolated elevated diastolic BP. Headache from Wednesday has improved. Pre e labs 2 days ago normal. Continue to closely monitor (7) Vaginal bleeding: PLAN: - Discussed concern for placental abruption given amount of bleeding she described at home. Since admission scant brown to dark red blood noted on exams and pads. No active red bleeding. Abruption labs normal and Hgb stable. Category 1 tracing. Discussed indication for emergent delivery would be heavy vaginal bleeding with concern for patient, or non reassuring heart tracing with concern for fetus. Continue to closely monitor at this time
[2023-07-04 09:39] LABS: Syphilis Antibodies Non-reactive
[2023-07-04] MEDS: Lactated Ringers 1,000 ML 200 ML IV (10:21)
[2023-07-04] MEDS: Oxytocin 15 Units/NS 250ml 15 UNITS/250 ML IV.SOLN 2 UNITS IV (10:47)
[2023-07-04 11:28] LABS: Bedside Glucose 71 mg/dL (74-106)
[2023-07-04] MEDS: fentaNYL-bupivacaine (epidural) 100 ML BAG EPIDURAL (11:37)
[2023-07-04] MEDS: LACTATED RINGERS 500 ML 999 ML IV (14:00)
--- NOTE | 2023-07-04 14:05 | PCM.PN.BLA ---
Progress Note RN called as patient feels she is leaking fluid. At bedside to check on patient. She is comfortable with an epidural. Physical Exam Const alert and no apparent distress General Appearance: comfortable HEENT normocephalic Resp normal respiratory effort GI soft to palpation and non-tender Narrative: Cvx 5/80/-2, cervix soft and now midposition. Assessment & Plan Assessment/Plan (1) Vaginal bleeding: PLAN: Patient on 4 of Pitocin with ctx's q 2 min and palpating strong. Cervical change noted, and cervix is now thinned and mid position. Can palpated head on cervical exam now. Upon exam scant brown blood noted, and possibly scant clear fluid as well. Bulging bag of water palpated behind head. Category 1 tracing. Discussed with patient possible small leak in membranes, and now forebag palpated. Unable to rupture forebag given head is ballotable. Head has come down in the pelvis and cervical change noted with position changes and Pitocin. Continue with position changes to engage head prior to rupture of forebag. Bedside TAUS performed noting vertex presentation. Patient agreeable with plan of care. (2) History of gestational hypertension: (3) Rh negative state in antepartum period: (4) Polyhydramnios affecting : (5) 36 weeks gestation of : (6) Gestational diabetes requiring insulin: (7) History of gastric bypass:
[2023-07-04 15:32] LABS: Bedside Glucose 66 mg/dL (74-106)
--- NOTE | 2023-07-04 15:42 | PCM.OPRPT ---
Problems Associated Problem List Diagnoses (1) Vaginal delivery: (2) Vaginal bleeding: (3) History of gestational hypertension: (4) Rh negative state in antepartum period: (5) Polyhydramnios affecting : (6) 36 weeks gestation of : (7) Gestational diabetes requiring insulin: Report of Operation Date of Procedure: 07/04/23 Pre-Operative Diagnosis: 36 week gestation, vaginal bleeding, A2GDM poorly controlled, polyhydramnios Post-Operative Diagnosis: As above Surgery/Procedure Performed:: Vaginal delivery Description of Surgical Findings:: VFI in LEXII position with apgars 8, 9. Clear fluid. Normal appearing placenta. Intact perineum. Surgeon: Mariam Edwards Type of Anesthesia: Epidural Special Medications: None Specimen's removed: Placenta Drains: Guevara Estimated Blood Loss (mL): 100 Fluids Replaced: N/A Description of Procedure: Patient complete and pushing. Head of infant delivered in right occiput anterior position, followed by the shoulders and body spontaneously. A vigorous viable female infant was delivered atraumatically without any force, traction, or delay. The was placed on maternal abdomen. The cord was clamped and cut after a 60 second delay by the father of the baby. Cord blood was obtained. The placenta was delivered spontaneously and noted to be normal-appearing and intact with three-vessel cord. The uterus was explored x 1. Fundus firm and bleeding hemostatic. No lacerations noted upon inspection. Sponge counts were correct. Vaginal sweep was performed. Grafts/Implants Used: None Complications None Admit VTE Documentation VTE Present on Admission: No
[2023-07-04] MEDS: Oxytocin 15 Units/NS 250ml 15 UNITS/250 ML IV.SOLN 83 UNITS IV (16:00)
[2023-07-04] MEDS: Acetaminophen 500 MG Tablet 1000 MG PO (17:19)
[2023-07-04 17:28] LABS: Bedside Glucose 124 mg/dL (74-106)
[2023-07-04] MEDS: Rho(D) Immune Globulin 300 MCG (1500 Unit) Syringe IV (18:34)
[2023-07-04] MEDS: 0.9% Saline Lock 10 ML Syringe IV ×2 (18:39→19:56)
[2023-07-04 18:54] LABS: Pathology Specimen OB SEE PATHOLOGY REPORT
[2023-07-05 00:12] VITALS: BP 123/83; PULSE 89; RESP 17; TEMP 36.3; O2SAT 97
[2023-07-05] MEDS: Acetaminophen 500 MG Tablet 1000 MG PO (02:02)
[2023-07-05 03:13] VITALS: BP 116/85; PULSE 74; RESP 16; TEMP 36.2; O2SAT 97
[2023-07-05 07:13] LABS: Bedside Glucose 74 mg/dL (74-106)
[2023-07-05 08:30] VITALS: BP 118/87; PULSE 72; RESP 16; TEMP 36.2; O2SAT 97
--- NOTE | 2023-07-05 08:30 | PCM.PN.OB ---
Subjective Subjective Feels good. BG have been normal. Bottle feeding. Pain controlled., Moderate lochia Objective Data Objective Data Vital Signs: Vital Signs Temp Pulse Resp BP Pulse Ox O2 Del Method 97.1 F L 74 16 116/85 H 97 Room Air 07/05/23 03:13 07/05/23 03:13 07/05/23 03:13 07/05/23 03:13 07/05/23 03:13 07/05/23 03:13 Oxygen Delivery Method Room Air Weight: 87.543 kg Body Mass Index (BMI) 34.2 Intake & Output: Intake and Output for Last 24 Hours 07/03/23 07/04/23 07/05/23 23:59 23:59 23:59 Intake Total 2868.95 / 2868.95 Output Total 2250 / 2250 Balance 618.95 / 618.95 Lab / Micro Data 07/04/23 08:00 Labs: Laboratory Results - last 24 hr 07/04/23 08:00: PT 14.0, INR 1.1, APTT 27.3, Fibrinogen 529 H, Syphilis Total Ab Non-reactive, Blood Type A NEGATIVE, Antibody Screen POSITIVE, Antibody Identification ANTI-D 07/04/23 11:06: POC Glucose 71 L 07/04/23 15:14: POC Glucose 66 L 07/04/23 17:04: POC Glucose 124 H 07/04/23 17:05: Screen NEGATIVE, Baby's Blood Type A POSITIVE, Baby's BRODY NEGATIVE 07/05/23 06:44: POC Glucose 74 Physical Exam Const alert and no apparent distress Narrative: Fundus firm, below umbilicus. Assessment & Plan (1) Vaginal delivery: (2) 36 weeks gestation of : (3) Gestational diabetes requiring insulin: PLAN: Plan Expect D/c tomorrow
[2023-07-05 12:18] VITALS: BP 112/80; PULSE 78; RESP 18; TEMP 36.3; O2SAT 97
[2023-07-05 16:09] VITALS: BP 127/95; PULSE 91; RESP 16; TEMP 36.4; O2SAT 98
[2023-07-05 21:02] VITALS: BP 131/82; PULSE 78; RESP 16; TEMP 36.3; O2SAT 96
[2023-07-06 03:40] VITALS: BP 105/71; PULSE 70; RESP 18; TEMP 36.9; O2SAT 97
--- NOTE | 2023-07-06 07:10 | NURSING ---
all late entry charting completed by this RN on this pt completed late due to unit acuity
--- NOTE | 2023-07-06 08:51 | PCM.DC.SUM ---
Providers Date of Admission: 07/04/23 Date of Discharge: 07/06/23 Primary Care Physician: SHAYY Alejandro Reason For Visit: LABOR AND DELIVERY Diagnosis Discharge Diagnosis (1) Vaginal delivery: Status: Acute Code(s): O80 - Encounter for full-term uncomplicated delivery (2) 36 weeks gestation of : Status: Acute Code(s): Z3A.36 - 36 weeks gestation of (3) Gestational diabetes requiring insulin: Status: Acute Code(s): O24.414 - Gestational diabetes mellitus in , insulin controlled Medications at Discharge Home Medications vit no.95-ferrous fumarate 28 mg-folic acid 800 mcg tablet ( Multivitamins) 1 ea PO DAILY 02/14/18 acetaminophen 500 mg tablet 500 mg PO Q4H PRN PRN Pain Or Fever 05/24/19 aspirin 81 mg tablet,delayed release (Adult Low Dose Aspirin) 81 mg PO DAILY 05/17/23 ferrous sulfate 325 mg (65 mg iron) tablet (Feosol) 325 mg PO DAILY 05/17/23 insulin NPH isoph U-100 human 100 unit/mL (3 mL) subcutaneous pen (Humulin N NPH U-100 Insulin KwikPen) 16 unit subcut QHS Diabetes 07/04/23 insulin NPH isoph U-100 human 100 unit/mL (3 mL) subcutaneous pen (Humulin N NPH U-100 Insulin KwikPen) 50 unit subcut BREAKFAST Diabetes 07/04/23 Hospital Course Summary of Care Provided Minutes Spent on Discharge: 15 Weight / BMI Weight Weight: 193 lb Body Mass Index (BMI) 34.2 ABG / Lab / Microbiology Data 07/04/23 08:00 D/C Instructions Discharge Diet: No restrictions Discharge Activity: Return to Normal Activity, May Drive, May Shower and May Take a Tub Bath May resume sexual activity in: 6 weeks Weight Bearing Status: Full weight bearing Lifting Restricted to (Lbs): 20 Call your doctor if you observe: Fever of 101 or Higher, Inability to urinate, Inability to have a bowel movement, Using more than 1 pad per hour, Shortness of breath, Dizziness, Fainting spells, Chest pain, Increased palpitations (irregular heartbeat), Calf discomfort and Uncontrolled pain When: 2 weeks virtual visit and 6 weeks PP Meaningful Use Info Meaningful Use Meaningful Use Diagnoses (Choose all that apply): None applicable Ischemic Stroke Statin Dosing Therapy Reference: STATIN DOSE THERAPY REFERENCE: * Patients > 75 years receive moderate or high dose statin therapy. * Patients 75 years or YOUNGER should receive HIGH intensity statin dose unless contraindicated. You will be required to document reason for non-treatment if statin daily dose does not meet guidelines. HIGH DOSE STATIN THERAPY DAILY Atorvastatin > than or = to 40 mg Rosuvastatin > than or = to 20 mg Amlodipine + Atorvastatin > than or = to 2.5/40 mg Ezetimibe + Simvastatin 10/80 mg Simvastatin 80mg Discharge Plan Admission Admit Date/Time: 07/04/23 09:48 Attending Provider: Mariam Edwards Primary Care Provider: Natalie Blum Discharge Orders/Prescriptions Prescriptions: No Action PNV cmb#95-ferrous fumarate-FA [ Multivitamins] 1 EACH tablet 1 ea PO DAILY acetaminophen 500 MG tablet 500 mg PO Q4H PRN PRN (Reason: Pain Or Fever) aspirin [Adult Low Dose Aspirin] 81 mg tablet,delayed release (DR/EC) 81 mg PO DAILY ferrous sulfate [Feosol] 325 mg (65 mg iron) tablet 325 mg PO DAILY Humulin N NPH Insulin KwikPen 100 unit/mL (3 mL) Insulin Pen 50 unit subcut BREAKFAST Humulin N NPH Insulin KwikPen 100 unit/mL (3 mL) Insulin Pen 16 unit subcut QHS Referrals / Follow Up: Natalie Blum PA [Primary Care Provider] -
--- NOTE | 2023-07-06 08:52 | PCM.DC.SUM ---
Providers Date of Admission: 07/04/23 Primary Care Physician: SHAYY Alejandro Reason For Visit: LABOR AND DELIVERY Diagnosis Discharge Diagnosis (1) Vaginal delivery: Status: Acute Code(s): O80 - Encounter for full-term uncomplicated delivery (2) 36 weeks gestation of : Status: Acute Code(s): Z3A.36 - 36 weeks gestation of (3) Gestational diabetes requiring insulin: Status: Acute Code(s): O24.414 - Gestational diabetes mellitus in , insulin controlled Medications at Discharge Home Medications vit no.95-ferrous fumarate 28 mg-folic acid 800 mcg tablet ( Multivitamins) 1 ea PO DAILY 02/14/18 acetaminophen 500 mg tablet 1,000 mg (2 x 500 mg) PO Q6H PRN PRN Pain 1-10 Or Fever #0 tabs 07/06/23 ibuprofen 600 mg tablet 600 mg PO Q6H PRN PRN Pain Score 1-10 #0 tabs 07/06/23 Weight / BMI Weight Weight: 193 lb Body Mass Index (BMI) 34.2 ABG / Lab / Microbiology Data 07/04/23 08:00 D/C Instructions Discharge Diet: No restrictions May resume sexual activity in: 6 weeks Weight Bearing Status: Full weight bearing Lifting Restricted to (Lbs): 20 Call your doctor if you observe: Fever of 101 or Higher, Inability to urinate, Inability to have a bowel movement, Using more than 1 pad per hour, Shortness of breath, Dizziness, Fainting spells, Chest pain, Increased palpitations (irregular heartbeat), Calf discomfort and Uncontrolled pain When: 2 weeks virtual visit and 6 weeks PP Meaningful Use Info Meaningful Use Meaningful Use Diagnoses (Choose all that apply): None applicable Ischemic Stroke Statin Dosing Therapy Reference: STATIN DOSE THERAPY REFERENCE: * Patients > 75 years receive moderate or high dose statin therapy. * Patients 75 years or YOUNGER should receive HIGH intensity statin dose unless contraindicated. You will be required to document reason for non-treatment if statin daily dose does not meet guidelines. HIGH DOSE STATIN THERAPY DAILY Atorvastatin > than or = to 40 mg Rosuvastatin > than or = to 20 mg Amlodipine + Atorvastatin > than or = to 2.5/40 mg Ezetimibe + Simvastatin 10/80 mg Simvastatin 80mg Discharge Plan Admission Admit Date/Time: 07/04/23 09:48 Primary Reason for Your Visit: Attending Provider: Mariam Edwards Primary Care Provider: Natalie Blum Discharge Orders/Prescriptions Prescriptions: New acetaminophen 500 mg Tablet 1,000 mg PO Q6H PRN PRN (Reason: Pain 1-10 Or Fever) Qty: 0 0RF ibuprofen 600 mg Tablet 600 mg PO Q6H PRN PRN (Reason: Pain Score 1-10) Qty: 0 0RF Continued PNV cmb#95-ferrous fumarate-FA [ Multivitamins] 1 EACH tablet 1 ea PO DAILY Discontinued acetaminophen 500 MG tablet 500 mg PO Q4H PRN PRN (Reason: Pain Or Fever) aspirin [Adult Low Dose Aspirin] 81 mg tablet,delayed release (DR/EC) 81 mg PO DAILY ferrous sulfate [Feosol] 325 mg (65 mg iron) tablet 325 mg PO DAILY Humulin N NPH Insulin KwikPen 100 unit/mL (3 mL) Insulin Pen 50 unit subcut BREAKFAST Humulin N NPH Insulin KwikPen 100 unit/mL (3 mL) Insulin Pen 16 unit subcut QHS Referrals / Follow Up: Mariam Edwards DO [Med Staff - Active Staff] - (2 week virtual and 6 week ) Natalie Blum PA [Primary Care Provider] - Disposition Disposition (needs filled in before D/C Order can be placed): Home, Self Care
--- NOTE | 2023-07-06 08:54 | PCM.PN.OB ---
Subjective Subjective Doing well per patient and nursing staff. Ambulating and taking PO without difficulty. Voiding and passing flatus. Pain controlled. Bottle feeding, planning to pump when she gets home. Denies headache, visual changes, chest pain, shortness of breath, leg pain or increased bleeding. Lochia normal. Objective Data Objective Data Vital Signs: Vital Signs Temp Pulse Resp BP Pulse Ox O2 Del Method 98.4 F 70 18 105/71 97 Room Air 07/06/23 03:40 07/06/23 03:40 07/06/23 03:40 07/06/23 03:40 07/06/23 03:40 07/06/23 03:40 Oxygen Delivery Method Room Air Weight: 193 lb Body Mass Index (BMI) 34.2 Intake & Output: Intake and Output for Last 24 Hours 07/04/23 07/05/23 07/06/23 23:59 23:59 23:59 Intake Total 2868.95 / 2868.95 Output Total 2250 / 2250 Balance 618.95 / 618.95 Lab / Micro Data 07/04/23 08:00 ROS Constitutional Constitutional: Reports systems reviewed and no addt'l complaints, except as documented; Denies headache(s) Eyes Eyes: Denies acute decrease in peripheral vision, blurry vision or change in vision ENT HEENT: Reports systems reviewed and no addt'l complaints, except as documented Cardiovascular Cardiovascular: Denies chest pain or dizziness Respiratory/Chest Respiratory/Chest: Denies cough, dyspnea, dyspnea on exertion, shortness of breath at rest or shortness of breath with exertion Gastrointestinal Gastrointestinal: Denies abdominal pain, diarrhea, nausea or vomiting Genitourinary Genitourinary: Denies abdominal discomfort Musculoskeletal Musculoskeletal: Denies limited range of motion Integumentary Integumentary: Reports systems reviewed and no addt'l complaints, except as documented Neurologic Neurologic: Reports systems reviewed and no addt'l complaints, except as documented Psychiatric Psychiatric: Reports systems reviewed and no addt'l complaints, except as documented Endocrine Endocrinology: Reports systems reviewed and no addt'l complaints, except as documented Hematologic/Lymphatic Hematologic/Lymphatic: Reports systems reviewed and no addt'l complaints, except as documented Allergic/Immunologic Allergic/Immunologic: Reports systems reviewed and no addt'l complaints, except as documented Physical Exam Const alert and oriented x3 General Appearance: cooperative Orientation / Consciousness: awake, oriented to person, oriented to place and oriented to time Exam Limitations: no limitations HEENT normocephalic Head and Scalp: normal to inspection, normocephalic and atraumatic Face and Sinus: normal facial exam Eyes General Eye: normal appearance of both eyes Neck full ROM Chest Chest: symmetrical chest wall rise Resp normal respiratory effort and normal air movement Auscultation: clear to auscultation bilaterally Cardio regular rate, regular rhythm, S1 normal heart sound, S2 normal heart sound, no murmurs, no rub, no gallops and no clicks GI normal to inspection, nondistended, normoactive bowel sounds and non-tender appearance of the vagina normal Bladder / Kidney Exam: no CVA tenderness Back/Spine normal ROM Extremity normal to inspection and full ROM Skin no rashes or lesions noted Neuro oriented x3 and moves all extremities Sensorium / Orientation: awake, alert and oriented to person Motor Exam: clonus absent Deep Tendon Reflexes: Rt Patellar (L4): 2+ and Lt Patellar (L4): 2+ Assessment & Plan (1) Vaginal delivery: PLAN: Plan 1) PPD#2 D/C home 2) Vitals stable 3) follow up in 2 weeks and 6 weeks
[2023-07-06 09:01] VITALS: BP 124/85; PULSE 68; RESP 16; TEMP 36.4; O2SAT 98
== END 2023-07-06 12:30 | disposition home or self-care (01) | DRG 560 ==
LOC: WPOUT 09:55 → WP 09:55
PROVIDERS: Advanced Practice Midwife; Admitting Provider Obstetrics & Gynecology; PCP Physician Assistant; Visit Provider Obstetrics & Gynecology
DX: O40.3XX0 Polyhydramnios, third trimester, not applicable or unspecified (principal); Z37.0 Single live birth; O24.424 Gestational diabetes mellitus in childbirth, insulin controlled; O99.891 Other specified diseases and conditions complicating pregnancy; R51.9 Headache, unspecified; R10.11 Right upper quadrant pain; Z3A.36 36 weeks gestation of pregnancy; Z79.82 Long term (current) use of aspirin; O99.844 Bariatric surgery status complicating childbirth
CPT/HCPCS: 36415; 59025; 59050; 76815; 82565; 82570; 82962; 84156; 84450; 84460; 84550; 85025; 85027; 85384; 85461; 85610; 85730; 86780; 86850; 86870; 86900; 86901; 88307; 90384; 99221; J7120; A4216; G0378; J2790; J2791

== ENCOUNTER 2024-06-23 21:55 | Outpatient (CLI) | payer MEDICAID, SELFPAY ==
[2024-06-23 22:08] VITALS: BMI 27.5
[2024-06-23 22:18] VITALS: PULSE 241; O2SAT 100
[2024-06-23 22:22] VITALS: BP 115/70; PULSE 80
[2024-06-23 22:40] LABS: Color, Urine Yellow (Yellow); Glucose, Dipstick 50 mg/dl (Normal); Ketone-Dipstick Negative (Negative); Leukocyte Esterase-Dipstick 25 /ul (Negative); Nitrite-Dipstick Negative (Negative); Occult Blood-Urine Negative /ul (Negative); Protein-Dipstick 15 mg/dl (Negative); Urine Bilirubin Dipstick Negative (Negative); Urine Clarity Sl. Cloudy (Clear); Urine Urobilinogen Normal (Normal)
--- NOTE | 2024-06-23 23:03 | OB.TRI.HP_ITS ---
HPI - General General Date of Admission: 06/23/24 Chief Complaint: cramping and back pain HPI Narrative LAINA DE LEÓN, is a 28 F who presents with cramping and lower back pain. NO bleeding or loss of fluid Maternal Data Information Final BELEM: 11/05/24 Gestational age: 20+5 [facility] Medical History (Updated 06/26/24 @ 05:[address] Inna Garcia MD) Polyhydramnios Gestational diabetes Gestational diabetes Home Medications ?Medication ?Instructions ?Recorded ?Last Taken ?Type vit no.95-ferrous 1 ea PO DAILY 05/3006/23/24 History fumarate 28 mg-folic acid 800 mcg tablet ( Multivitamins) aspirin 81 mg chewable tablet 1 tab PO DAILY 06/23/24 06/23/24 History (Aspirin Childrens) ferrous sulfate 325 mg (65 mg 325 mg PO BID 06/23/24 0 06/23/24 History iron) tablet (Feosol) insulin NPH isoph U-100 human 100 16 unit subcut DAILY 06/23/24 06/23/24 20:00 History unit/mL (3 mL) subcutaneous pen (Humulin N NPH U-100 Insulin KwikPen) insulin NPH isoph U-100 human 100 32 unit subcut DAILY gdm 06/23/24 06/23/24 History unit/mL (3 mL) subcutaneous pen (Humulin N NPH U-100 Insulin KwikPen) Allergy/AdvReac Type Severity Reaction Status Date / Time cefdinir Allergy Vomiting Verified 06/23/24 22:27 morphine Allergy Rash Verified 06/23/24 22:27 peanut Allergy Anaphylaxis Verified 06/23/24 22:27 Surgical History (Updated 07/10/23 @ 00:04 by Background Chad) Gastric bypass status for obesity History of cholecystectomy Social History household members: children Smoking Status: Never smoker History 5 Elective abortions Hx Para 2 Spontaneous abortions Hx # Term Pregnancies Ectopic pregnancies Hx # Pregnancies Multiple births # of living children NST FHR Rate Baby A Baseline: 150 Uterine Activity:: quiet Assessment & Plan (1) 20 weeks gestation of : (2) Back pain affecting in second trimester: PLAN: UA negative. No contractions PLAN: Plan Urine culture sent.
[2024-06-23] MEDS: SimETHICONE 80 MG Chewable Tablet PO (23:30)
== END 2024-06-23 23:35 | disposition home or self-care (01) ==
LOC: WPOUT 22:00 → WP 22:02
PROVIDERS: PCP Physician Assistant; Visit Provider Obstetrics & Gynecology
DX: O99.891 Other specified diseases and conditions complicating pregnancy (principal); M54.50 Low back pain, unspecified; O26.892 Other specified pregnancy related conditions, second trimester; R10.9 Unspecified abdominal pain; O24.414 Gestational diabetes mellitus in pregnancy, insulin controlled; Z3A.20 20 weeks gestation of pregnancy
CPT/HCPCS: 59050; 81002; 87086; 87088; 99221; G0378

== ENCOUNTER 2024-09-23 16:50 | Outpatient (CLI) | payer MEDICAID, SELFPAY ==
[2024-09-23] VITALS (12 sets, daily range): BP systolic 116–146; BP diastolic 66–96; PULSE 80–105; RESP 14; TEMP 36.5; O2SAT 98–99; BMI 33.8
--- OUTSIDE RECORDS SUMMARY | 2024-09-23 17:02 | XMS RPT_ITS | CCD ---
Author Organization [facility] Care Team Providers Care Associate Director Career Services Name Role Phone Shakeel Villasenor MD Primary Care Provider CORY YOST Referring Unavailable SHAKEEL VILLASENOR Primary Care Unavailable CORY YOST Referring Unavailable SHAKEEL VILLASENOR Primary Care Unavailable Shakeel Villasenor MD Primary Care Provider Shakeel Villasenor MD Primary Care Provider Shakeel Villasenor MD Primary Care Provider Shakeel Villasenor MD Primary Care Provider Cynthia RAMONBLENDER LABORER, Lea Unavailable Natalie Blum PA-C Unavailable JOCELYNN MACKENZIE Attending Unavailable JOCELYNN MACKENZIE Admitting Unavailable Natalie Ley Primary Care Provider Dr. Inna Garcia MD Attending Provider Shakeel Villasenor MD Primary Care Provider Natalie Ley Primary Care Unavailable Inna Garcia Attending Unavailable Kimi Smith Referring Unavailable Kimi Smith Attending Unavailable Natalie Ley Primary Care Unavailable Sandra Edwards Attending Unavailable Jerry Sandra Admitting Unavailable Natalie Ley Primary Care Unavailable Kulwant LUCAS, Natalie Primary Care Unavailable Margaret Clay NP Attending Unavailable Natalie Ley Referring Unavailable JIMMIE JULES Attending Unavail able INNA GARCIA Attending Unavailable MELLISSA JULESRE Referring Unavail able SANDRA EDWARDS Attending Unavailable PRICEIDRE Referring Unavail able MELLISSA JULESRE Referring Unavail able BENDARAM, EDDI WANG Attending Unavaila ble JET, KAYY Referring Unavailable JACKLYN, SHAKEEL A Primary Care Unavailable JET, KAYY Referring Unavailable JACKLYN, SHAKEEL A Primary Care Unavailable JACKLYN, SHAKEEL A Primary Care Unavailable JET, KAYY Referring Unavailable JACKLYN, SHAKEEL A Primary Care Unavailable JIMMIE JULES Attending Unavail able JACKLYN, SHAKEEL A Primary Care Unavailable INNA GARCIA Referring Unavailable BENDARAM, EDDI WANG Attending Unavaila ble SHAYE, INNA Referring Unavailable JACKLYN, SHAKEEL A Primary Care Unavailable JET, KAYY Referring Unavailable JACKLYN, SHAKEEL A Primary Care Unavailable JET, KAYY Attending Unavailable JACKLYN, SHAKEEL A Primary Care Unavailable JET, KAYY Referring Unavailable JACKLYN, SHAKEEL A Primary Care Unavailable INNA GARCIA Referring Unavailable BENDARAM, EDDI WANG Attending Unavaila ANGIE Aparicio Referring Unavailable MELLISSA JULESRE Referring Unavail able JET, KAYY Referring Unavailable ANGIE MORA Attending Unavailable JACKLYN, SHAKEEL A Primary Care Unavailable JACKLYN, SHAKEEL A Primary Care Unavailable JET, KAYY Attending Unavailable ANGIE MORA Referring Unavailable JACKLYN, SHAKEEL A Primary Care Unavailable JET, KAYY Referring Unavailable JET, KAYY Referring Unavailable JET, KAYY Referring Unavailable INNA GARCIA Attending Unavailable JET, KAYY Referring Unavailable JACKLYN, SHAKEEL A Primary Care Unavailable CHELSEA NAVARRO Attending Unavailable JIMMIE JULES Referring Unavail able JACKLYN, SHAKEEL A Primary Care Unavailable IVETT LAGUERRE Attending Unavailable JET, KAYY Referring Unavailable JACKLYN, SHAKEEL A Primary Care Unavailable JET, KAYY Referring Unavailable ANGIE MORA Referring Unavailable JET, KAYY Referring Unavailable JACKLYN, SHAKEEL A Primary Care Unavailable Allergies Allergy Classification Reported Allergen(s) Allergy Type Date of Onset Reaction(s) Facility (20 sources) cefdinir; Translations: [CEFDINIR] Drug Allergy [address] [facility] Work Phone: (20 sources) Morphine; Translations: [MORPHINE] Drug Allergy 4 Hives, Shortness of Breath [facility] Work Phone: (20 sources) peanut; Translations: [PEANUTS] Food Intolerance [address] [facility] Work Phone: (11 sources) peanut allergenic extract Drug Allergy 3 Anaphylaxis [facility] (1 source) cefdinir Drug Allergy 5 [facility] (1 source) Morphine Drug Allergy 5 [facility] (1 source) peanut allergenic extract Drug Allergy 5 [facility] Medications Current Medications Medication Drug Class(es) Dates Sig (Normalized) Sig (Original) aspirin 81 mg chewable tablet (20 sources) Platelet Aggregation Inhibitor, Nonsteroidal Anti-inflammatory Drug Start: 06-23-2024 take 1 tablet by mouth once daily Aspirin (Aspirin Childrens) 81 mg tablet,chewable Active 1 {tbl} PO DAILY June 23, 2024 12:00am Start: 03-31-2024 take 1 tablet by chuck once daily aspirin, enteric coated (ECOTRIN LOW STRENGTH) 81 mg EC tablet Indications: Encounter for supervision of normal in multigravida (HCC) Take 1 tablet by mouth once daily. 90 tablet 3 03/31/2024 Active Start: 05-17-2023 End: 07-06-2023 Aspirin (Adult Low Dose Aspi rin) 81 mg tablet,delayed release (DR/EC) Discontinued 81 mg PO DAILY May 17, 2023 1:00am July 06, 2023 8:53am Start: 09-04-2019 End: 10-19-2019 take 1 tablet by mouth once daily Aspirin 81 MG tablet,chewable Discontinued 81 mg PO DAILY@0800 September 04, 2019 12:00am October 19, 2019 12:01pm Start: 08-29-2019 End: 11-29-2020 take 1 tablet by mouth once daily aspirin, enteric coated (ASPIRIN, ENTERIC COATED) 81 mg EC tablet Take 1 tablet by mouth once daily. 08/29/2019 11/29/2020 Discontinued End: 09-13-2023 take 81 mg by mouth once daily BABY ASPIRIN ORAL Take 81 mg by mouth once daily. 0 09/13/2023 Discontinued Comment on above: Take 81 mg by mouth once daily. Blood-Glucose Sensor (FREESTYLE DELORIS 3 PLUS SENSOR) ira (20 sources) Start: 09-07-2024 Blood-Glucose Sensor (FREESTYLE DELORIS 3 PLUS SENSOR) ira Indications: Insulin controlled gestational diabetes mellitus (GDM) in second trimester (HCC) Please change every 15 days 6 each 1 09/07/2024 Active Start: 06-22-2024 End: 09-07-2024 Blood-Glucose Sensor (FREEST YLE DELORIS 3 PLUS SENSOR) ira Indications: Insulin controlled gestational diabetes mellitus (GDM) in second trimester (HCC) Please change every 15 days 6 each 1 06/22/2024 09/07/2024 Discontinued Start: 06-22-2024 Blood-Glucose Sensor (FREESTYLE DELORIS 3 PLUS SENSOR) ira Indications: Insulin controlled gestational diabetes mellitus (GDM) in second trimester (HCC) Please change every 15 days 6 each 1 06/22/2024 Active ferrous sulfate 325 mg oral tablet (20 sources) Start: 06-23-2024 take 1 tablet by mouth twice daily Ferrous Sulfate (Feosol) 325 mg (65 mg iron) tablet Active 325 mg PO TWICE A DAY June 23, 2024 12:00am Start: 05-17-2023 End: 07-06-2023 take 1 tablet by mouth once daily Ferrous Sulfate (Feosol) 325 mg (65 mg iron) tablet Discontinued 325 mg PO DAILY May 17, 2023 1:00am July 06, 2023 8:53am Comment on above: Take 325 mg by mouth once daily. flash glucose scanning reader (FREESTYLE DELORIS 14 DAY READER) (1 source) Start: 06-17-2024 End: 06-18-2024 flash glucose scanning reader (FREESTYLE DELORIS 14 DAY READER) Use to check blood sugar at least 4 times daily. 1 each 06/17/2024 06/18/2024 Active flash glucose sensor (FREESTYLE DELORIS 14 DAY SENSOR) kit (20 sources) Start: 06-17-2024 flash glucose sensor (FREESTYLE DELORIS 14 DAY SENSOR) kit Apply new sensor every 14 days to upper arm. Use to check blood sugar at least 4 times daily. 6 kit 4 06/17/2024 Active 3 ml insulin isophane, human 100 unt/ml pen injector (20 sources) Start: 09-04-2024 insulin NPH (HUMULIN N NPH INSULIN KWIKPEN) 100 unit/mL (3 mL) injection pen Indications: Diabetes mellitus type 1, controlled, without complications (HCC) Take 32 units before breakfast and 9 units before dinner 15 mL 1 09/04/2024 Active Start: 06-23-2024 Insulin Nph Is oph U-100 Human (Humulin N Nph Insulin Kwikpen) 100 unit/mL (3 mL) insulin pen Active 32 U SC DAILY June 23, 2024 12:00am Start: 06-23-2024 Insulin Nph Is oph U-100 Human (Humulin N Nph Insulin Kwikpen) 100 unit/mL (3 mL) insulin pen Active 16 U SC DAILY June 23, 2024 12:00am Start: 06-22-2024 End: 09-04-2024 inject 32 [IU] by subcutaneous injection before breakfast, then inject 16 [IU] by subcutaneous injection before dinner insulin NPH subcutaneous pen Indications: Diabetes mellitus type 1, controlled, without complications (HCC) Take 32 units before breakfast and 16 units before dinner 15 mL 1 06/22/2024 09/04/2024 Discontinued Start: 07-04-2023 End: 07-06-2023 Insulin Nph Isoph U-100 Gina n (Humulin N Nph Insulin Kwikpen) 100 unit/mL (3 mL) Insulin Pen Discontinued 50 U SC WITH BREAKFAST July 04, 2023 12:00am July 06, 2023 8:53am Start: 07-04-2023 End: 07-06-2023 Insulin Nph Isoph U-100 Gina n (Humulin N Nph Insulin Kwikpen) 100 unit/mL (3 mL) Insulin Pen Discontinued 16 U SC AT BEDTIME July 04, 2023 12:00am July 06, 2023 8:53am Start: 06-28-2023 End: 09-13-2023 insulin NPH subcutaneous pen Inject 76 Units subcutaneously as directed. Inject 50 units before breakfast and 26 units at night 3 mL 3 06/28/2023 09/13/2023 Discontinued Start: 06-21-2023 End: 06-28-2023 insulin NPH subcutaneous pen Inject 50 Units subcutaneously as directed. Inject 40 units before breakfast and 26 units at night 3 mL 3 06/21/2023 06/28/2023 Discontinued Start: 06-10-2023 End: 07-04-2023 Insulin Nph Isoph U-100 Gina n (Humulin N Nph Insulin Kwikpen) 100 unit/mL (3 mL) Insulin Pen Discontinued 20 U SC WITH BREAKFAST 0 June 10, 2023 12:00am July 04, 2023 7:14am Start: 06-10-2023 End: 07-04-2023 Insulin Nph Isoph U-100 Gina n (Humulin N Nph Insulin Kwikpen) 100 unit/mL (3 mL) Insulin Pen Discontinued 10 U SC AT BEDTIME 0 June 10, 2023 12:00am July 04, 2023 7:14am Start: 06-09-2023 End: 06-10-2023 Insulin Nph Isoph U-100 Gina n (Humulin N Nph Insulin Kwikpen) 100 unit/mL (3 mL) insulin pen Discontinued 15 U SC DAILY June 09, 2023 12:00am June 10, 2023 8:41am Start: 05-26-2023 End: 08-24-2023 inject 10 [IU] by subcutaneous injection once daily at breakfast insulin NPH subcutaneous pen Inject 10 Units subcutaneously daily with breakfast. 3 mL 2 05/26/2023 06/21/2023 Discontinued Comment on above: Inject 10 Units subc utaneously daily with breakfast. Inject 50 Units subc utaneously as directed. Inject 40 units before breakfast and 26 units at night Inject 76 Units subc utaneously as directed. Inject 50 units before breakfast and 26 units at night ondansetron 4 mg disintegrating oral tablet (20 sources) Serotonin-3 Receptor Antagonist Start: 025 take 1 tablet by mouth every eight hours as needed ondansetron orally disintegrating (ZOFRAN ODT) 4 mg disintegrating tablet Take 1 tablet by mouth every 8 hours as needed. 20 tablet 1 03/31/2024 Active Start: 12-20-2022 End: 04-12-2023 take 1 tablet by mouth every eight hours as needed for nausea and vomiting Ondansetron 4 mg tablet,disintegrating Discontinued 4 mg PO Q8H as needed for nausea and vomiting 9 December 20, 2022 12:00am April 12, 2023 8:37pm Start: 08-21-2022 End: 10-16-2022 take 1 tablet by mouth every eight hours as needed ondansetron (ZOFRAN) 4 mg tablet Take 1 tablet by mouth every 8 hours as needed for nausea/vomiting. 10 tablet 0 08/21/2022 10/16/2022 Discontinued Start: 07-22-2021 End: 08-22-2021 take 1 tablet by mouth every six hours as needed ondansetron orally disintegrating (ZOFRAN ODT) 4 mg disintegrating tablet Take 1 tablet by mouth every 6 hours as needed for nausea/vomiting. 21 tablet 0 07/22/2021 08/22/2021 Discontinued Comment on above: Take 1 tablet by chuck th every 6 hours as needed for nausea/vomiting. Take 1 tablet by chuck th every 8 hours as needed for nausea/vomiting. Pnv Cmb#95-Ferrous Fumarate-Fa ( Multivitamins) 1 EACH tablet (11 sources) Start: 02-14-2018 Pnv Cmb#95-Ferrous Fumarate-Fa ( Multivitamins) 1 EACH tablet Active 1 NMA PO DAILY February 14, 2018 1:00am Start: 02-14-2018 Pnv Cmb#95-Nino jocelyn Fumarate-Fa ( Multivitamins) 1 EACH tablet Active 1 EACH PO DAILY February 14, 2018 12:00am Start: 02-14-2018 Pnv Cmb#95-Nino jocelyn Fumarate-Fa ( Multivitamins) 1 EACH tablet Active 1 EACH PO DAILY February 14, 2018 1:00am vit/iron fum/folic ac (-FOLIC ACID ORAL) (20 sources) take 1 tablet by chuck th once daily before mealtime vit/iron fum/folic ac (-FOLIC ACID ORAL) Take 1 tablet by mouth once daily. Active vit/iro n fum/folic ac (-FOLIC ACID ORAL) Take by mouth. Suspended vit/iro n fum/folic ac (-FOLIC ACID ORAL) Take by mouth. Active vit/iro n fum/folic ac (-FOLIC ACID ORAL) Take by mouth. 0 Suspended vit/iro n fum/folic ac (-FOLIC ACID ORAL) Take by mouth. 0 Active Comment on above: Take by mouth. Completed/Discontinued Medications Medication Drug Class(es) Dates Sig (Normalized) Sig (Original) acetaminophen 500 mg oral tablet (20 sources) Start: 07-06-2023 End: 06-23-2024 take 1-10 tablets by mouth every six hours as needed for pain Acetaminophen 500 mg Tablet Discontinued 1000 mg PO EVERY 6 HOURS NEEDED as needed for Pain 1-10 Or Fever 0 July 06, 2023 12:00am June 23, 2024 10:29pm Start: 07-06-2023 take 1000 mg by mout h every six hours as needed Acetaminophen Active 1000 MG PO EVERY 6 HOURS NEEDED 0 July 06, 2023 12:00am Start: 05-24-2019 End: 07-06-2023 take 1 tablet by mouth every four hours as needed for pain Acetaminophen 500 MG tablet Discontinued 500 mg PO EVERY 4 HOURS NEEDED as needed for Pain Or Fever May 24, 2019 12:00am July 06, 2023 8:53am End: 03-31-2024 take 2 tablets by mouth every six hours as needed acetaminophen (TYLENOL) 325 mg tablet Take 650 mg by mouth every 6 hours as needed. 03/31/2024 Discontinued Comment on above: Take 650 mg by mouth every 6 hours as needed. [id number] 200 actuat albuterol 0.09 mg/actuat metered dose inhaler (10 sources) beta2-Adrenergic Agonist Start: End: take 2 puff(s) by inhalation every four hours as needed for wheezing albuterol HFA (PROVENTIL HFA, VENTOLIN HFA) 90 mcg/actuation inhaler Inhale 2 Puffs as instructed every 4 hours as needed for wheezing/shortness of breath. 1 Each 0 11/02/2022 01/01/2023 Discontinued Comment on above: Inhale 2 Puffs as in structed every 4 hours as needed for wheezing/shortness of breath. amitriptyline hydrochloride 10 mg oral tablet (5 sources) Tricyclic Antidepressant Start: 021 End: take 1 tablet by mouth once daily at bedtime amitriptyline (ELAVIL) 10 mg tablet Take 1 tablet by mouth daily at bedtime. 30 tablet 3 02/14/2021 08/22/2021 Discontinued Comment on above: Take 1 tablet by chuck th daily at bedtime. amoxicillin 875 mg / clavulanate 125 mg oral tablet (4 sources) Penicillin-class Antibacterial Start: End: take 1 tablet by mouth every twelve hours amoxicillin-clavula timoteo acid (AUGMENTIN) 875-125 mg per tablet Take 1 tablet by mouth every 12 hours for 10 days. 20 tablet 0 11/02/2022 11/12/2022 Comment on above: Take 1 tablet by chuck every 12 hours for 10 days. Breast Pump (1 source) Start: End: Breast Pump Use as directed 1 Each 12/26/2019 11/29/2020 Discontinued 12 hr buPROPion hydrochloride 90 mg / naltrexone hydrochloride 8 mg extended release oral tablet (5 sources) Opioid Antagonist, Aminoketone Start: End: take 1 tablet by mouth twice daily naltrexone-bupropio n (CONTRAVE) 8-90 mg ER tablet Indications: Obesity, Class III, BMI 40-49.9 (morbid obesity) (HCC) Take 1 tablet by mouth twice daily. 60 tablet 0 08/18/2021 08/22/2021 Discontinued Comment on above: Take 1 tablet by [place] twice daily. Take 1 tablet daily for 1 week and then increase to 1 tablet BID. Take 1 tablet by chuck twice daily. cholecalciferol 1.25 mg oral capsule (5 sources) Vitamin D Start: End: take 1 capsule by mouth every week cholecalciferol, Vitamin D3, (VITAMIN D3) 1,250 mcg (50,000 unit) cap capsule Take 1 capsule by mouth one time a week. 12 capsule 0 05/17/2020 08/22/2021 Discontinued Comment on above: Take 1 capsule by [facility] one time a week. cholecalciferol, vitamin D3, (VITAMIN D3 ORAL) (5 sources) End: take 2000 [IU] by mouth once daily cholecalciferol, vitamin D3, (VITAMIN D3 ORAL) Take 2,000 Units by mouth once daily. 0 08/22/2021 Discontinued take 2000 [IU] by mouth once lyle ly cholecalciferol, vitamin D3, (VITAMIN D3 ORAL) Take 2,000 Units by mouth once daily. 0 Active Comment on above: Take 2,000 Units by mouth once daily. cyclobenzaprine hydrochloride 10 mg oral tablet (1 source) Muscle Relaxant Start: 11-15-19 End: 11-30-19 take 1 tablet by mouth every eight hours as needed cyclobenzaprine (FLEXERIL) 10 mg tablet Take 1 tablet by mouth three times daily as needed for Muscle Spasm. 15 tablet 11/15/2019 11/29/2020 Discontinued doxycycline hyclate 100 mg oral capsule (1 source) Tetracycline-cla ss Drug Start: 11-03-19 End: 11-03-19 take 1 capsule by mouth twice daily doxycycline hyclate (VIBRAMYCIN) 100 mg capsule Take 1 capsule by mouth twice daily for 7 days. 14 capsule 0 11/02/2022 11/02/2022 Discontinued (Course of therapy completed) Comment on above: Take 1 capsule by mo [facility] twice daily for 7 days. 21 day ethinyl estradiol 0.910060 mg/hr / etonogestrel 0.005 mg/hr vaginal system (20 sources) Progestin, Estrogen Start: 02-02-20 End: 03-31-19 Etonogestrel-Ethinyl Estradiol (NUVARING) 0.12-0.015 mg/24 hr vaginal ring Use 1 Each vaginally as directed. 1 Each 13 02/02/2024 03/31/2024 Discontinued Start: 11-28-2019 End: 10-16-2022 Etonogestrel-Ethinyl Estradi ol (NUVARING) 0.12-0.015 mg/24 hr vaginal ring Use 1 Each vaginally as directed. 1 Each 13 11/28/2019 08/22/2021 Discontinued Comment on above: Use 1 Each vaginally as directed. 12 hr guaiFENesin 600 mg extended release oral tablet (20 sources) Start: 04-07-19 End: 06-21-19 take 2 tablets by mouth twice daily guaiFENesin (MUCINEX) 600 mg 12 hr tablet Indications: Flu-like symptoms Take 2 tablets by mouth two times a day. 30 tablet 0 04/07/2023 06/21/2023 Discontinued Comment on above: Take 2 tablets by mo ut two times a day. ibuprofen 600 mg oral tablet (2 sources) Nonsteroidal Anti-inflammatory Drug Start: 07-06-19 End: 06-24-19 take 1 tablet by mouth every six hours as needed for pain Ibuprofen 600 mg Tablet Discontinued 600 mg PO EVERY 6 HOURS NEEDED as needed for Pain Score 1-10 0 July 06, 2023 12:00am June 23, 2024 10:29pm 3 ml insulin glargine 100 unt/ml pen injector (16 sources) Insulin Analog Start: 06-18-19 End: 06-23-19 insulin glargine (LANTUS SOLOSTAR U-100 INSULIN) 100 unit/mL (3 mL) Inject 15 Units subcutaneously in the morning and before bedtime 3 mL 06/17/2024 06/22/2024 Discontinued Start: 09-25-2019 End: 10-19-2019 inject 10 [IU] by subcutaneous injection at bedtime Insulin Glargine 100 UNITS/ML insulin pen Discontinued 10 U subcut AT BEDTIME September 25, 2019 12:00am October 19, 2019 12:01pm Start: 09-25-2019 End: 10-19-2019 inject 10 [IU] by subcutaneous injection at bedtime Insulin Glargine Discontinued 10 UNITS subcut AT BEDTIME September 25, 2019 12:00am October 19, 2019 12:01pm 3 ml insulin lispro 100 unt/ml pen injector (5 sources) Insulin Analog Start: 06-17-2024 End: 06-22-2024 inject 8 [IU] by subcutaneous injection three times daily before mealtime insulin lispro (HUMALOG KWIKPEN INSULIN) 100 unit/mL Inject 8 Units subcutaneously three times a day before meals. 1 each 06/17/2024 06/22/2024 Discontinued 3 ml insulin, regular, human 100 unt/ml pen injector (11 sources) Insulin Start: 06-07-2023 End: 08-06-2023 insulin regular human (NOVOLIN R FLEXPEN) 100 unit/mL (3 mL) pen Inject 20 Units subcutaneously daily with breakfast. 12 mL 0 06/07/2023 06/21/2023 Discontinued Start: 06-07-2023 End: 08-06-2023 insulin regular human (NOVOL IN R FLEXPEN) 100 unit/mL (3 mL) pen Inject 15 Units subcutaneously daily with dinner. 4.5 mL 1 06/07/2023 06/25/2023 Discontinued Comment on above: Inject 20 Units subc utaneously daily with breakfast. Inject 15 Units subc utaneously daily with dinner. 10 ml iron sucrose 20 mg/ml injection (3 sources) Parenteral Iron Replacement Start: 06-28-2024 End: 06-28-2024 200 mg, INTRAVENOUS, ONCE, 1 dose, On Wed06/28/24 at 0830, May administer up to 200 mg via IV push over 5-10 minutes. Please conduct a 30 minute post-dose observation. Start: 06-23-2024 End: 06-23-2024 200 mg, INTRAVENOUS, ONCE, 1 dose, On Wed06/23/24 at 1130, May administer up to 200 mg via IV push over 5-10 minutes. Please conduct a 30 minute post-dose observation. Start: 06-21-2024 End: 06-21-2024 200 mg, INTRAVENOUS, ONCE, 1 dose, On Wed06/21/24 at 1000, May administer up to 200 mg via IV push over 5-10 minutes. Please conduct a 30 minute post-dose observation. metoclopramide 10 mg oral tablet (11 sources) Dopamine-2 Receptor Antagonist Start: 08-28-2022 End: 12-19-2022 take 1 tablet by mouth every six hours as needed for nausea and vomiting Metoclopramide Hcl (Reglan) 10 mg tablet Discontinued 10 mg PO EVERY 6 HOURS as needed for nausea and vomiting August 28, 2022 12:00am December 19, 2022 8:56pm mv,calcium,min/iron/ folic/vitK (ONE-A-DAY WOMEN'S COMPLETE ORAL) (20 sources) End: 01-01-2023 mv,calcium,min/iron /folic/vitK (ONE-A-DAY WOMEN'S COMPLETE ORAL) Take by mouth once daily. 0 01/01/2023 Discontinued mv,calcium,min/i mainor/folic/vitK (ONE-A-DAY WOMEN'S COMPLETE ORAL) Take by mouth once daily. 0 Active Comment on above: Take by mouth once d aily. oxyCODONE hydrochloride 5 mg oral tablet (9 sources) Opioid Agonist Start: 08-22-19 End: 10-17-19 take 1 tablet by mouth every six hours as needed for pain oxyCODONE IR (ROXICODONE) 5 mg immediate release tablet Indications: Post-op pain Take 1 tablet by mouth every 6 hours as needed for pain. 5 tablet 0 08/21/2022 10/16/2022 Discontinued Comment on above: Take 1 tablet by chuck th every 6 hours as needed for pain. oxymetazoline hydrochloride 0.5 mg/ml nasal spray (20 sources) Start: 04-07-19 End: 09-13-19 oxymetazoline (AFRIN, OXYMETAZOLINE,) 0.05 % nasal spray Indications: Flu-like symptoms Use 2-3 Sprays in each nostril two times a day. Use as directed. For a maximum of 3 (three) days. 22 mL 0 04/07/2023 09/13/2023 Discontinued Comment on above: Use 2-3 Sprays in ea ch nostril two times a day. Use as directed. For a maximum of 3 (three) days. pantoprazole 40 mg delayed release oral tablet (19 sources) Proton Pump Inhibitor Start: 08-23-19 End: 08-22-19 take 1 tablet by mouth once daily, then take 6 tablets by mouth in the morning pantoprazole DR (PROTONIX) 40 mg tablet Take 1 tablet by mouth DAILY (6 AM). 90 tablet 3 08/22/2022 01/01/2023 Discontinued Comment on above: Take 1 tablet by chuck th DAILY (6 AM). Rbnrikkc-Ti-Cdg-Fe-FA ( VITAMIN) tab (1 source) End: 11-30-19 take 1 tablet by mouth once Igleiasw-Zo-Fpo-Fe-F A ( VITAMIN) tab Take 1 tablet by mouth. 11/29/2020 Discontinued 2 ml rho(d) immune globulin, human 750 unt/ml prefilled syringe (1 source) Human Immunoglobulin G Start: 04-28-19 End: 04-28-19 RhoD immune globulin 300 mcg injection (RHOPHYLAC) sucralfate 100 mg/ml oral suspension (11 sources) Aluminum Complex Start: 08-29-19 End: 12-20-19 take 1 mL by mouth twice daily as needed for pain Sucralfate (Carafate) 100 mg/mL suspension Discontinued 10 mL PO TWICE A DAY as needed for epigastric pain 400 August 28, 2022 3:49am December 19, 2022 8:56pm Problems Active Problems Problem Classification Problem Date Documented Da te Episodic/Chronic Administrative/social admission (11 sources) Multiparous; Translations: [Problems related to multiparity] 09-27-2019 Episodic Conditions associated with dizziness or vertigo (7 sources) Lightheadedness; Translations: [Dizziness and giddiness] 04-12-2023 Episodic Contraceptive and procreative management (12 sources) Contraception status; Translations: [Encounter for surveillance of vaginal ring hormonal contraceptive device] Onset: 08-14-2024 Episodic Deficiency and other anemia (1 source) Iron deficiency anemia; Translations: [Other iron deficiency anemias] 05-31-2024 Episodic Deficiency and other anemia (1 source) Anemia, unspecified; Translations: [Anemia, unspecified type] Onset: 06-16-2024 Episodic Diabetes mellitus without complication (2 sources) Type 1 diabetes mellitus well controlled; Translations: [Type 1 diabetes mellitus without complications] 06-22-2024 Chronic Diabetes or abnormal glucose tolerance complicating ; childbirth; or the puerperium (1 source) Diabetes mellitus in mother complicating , childbirth AND/OR puerperium; Translations: [Unspecified pre-existing diabetes mellitus in , second trimester] 06-23-2024 Chronic Diabetes or abnormal glucose tolerance complicating ; childbirth; or the puerperium (20 sources) History of gestational diabetes mellitus; Translations: [Personal history of gestational diabetes] Onset: 05-16-2020 Resolved: 03-31-2024 05-16-2020 Episodic Early or threatened labor (11 sources) False labor before 37 completed weeks of gestation; Translations: [False labor before 37 completed weeks of gestation, third trimester] 08-01-2018 Episodic Headache; including migraine (15 sources) Headache; Translations: [Headache] 04-12-2023 Episodic Headache; including migraine (1 source) Headache; including migraine; Translations: [Headache, unspecified] Onset: 07-11-2023 Immunizations and screening for infectious disease (20 sources) Patient encounter status; Translations: [Encounter for screening for human papillomavirus (HPV)] Onset: 08-14-2024 Episodic Menstrual disorders (4 sources) Missed period; Translations: [Irregular menstruation, unspecified] Onset: 01-24-2024 01-24-2024 Chronic Nausea and vomiting (14 sources) Nausea and vomiting; Translations: [Nausea with vomiting, unspecified] Episodic Nervous system congenital anomalies (20 sources) Chiari malformation type II; 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] Onset: 07-10-2013 11-28-2019 Chronic Nonmalignant breast conditions (2 sources) Cyst of left breast; Translations: [Solitary cyst of left breast] 10-16-2022 Episodic Other complications of (20 sources) Anemia of ; Translations: [Anemia complicating , second trimester] Onset: 05-19-2023 Resolved: 03-31-2024 04-30-2023 Chronic Other complications of (20 sources) Anemia in mother complicating , childbirth AND/OR puerperium; Translations: [Anemia complicating , third trimester] Onset: 05-04-2023 Resolved: 03-31-2024 05-04-2023 Chronic Other complications of (1 source) Anemia complicating , unspecified trimester; Translations: [Anemia affecting , antepartum (HCC)] Onset: 04-18-2024 Chronic Other complications of (2 sources) Anemia complicating , second trimester; Translations: [Maternal iron deficiency anemia complicating , second trimester (HCC)] Onset: 05-30-2024 Chronic Other complications of (1 source) Anemia complicating , first trimester; Translations: [Anemia affecting in first trimester] Onset: 05-30-2024 Chronic Other complications of (11 sources) Vaginal discharge; Translations: [Other specified related conditions, third trimester] 08-01-2018 Episodic Other complications of (2 sources) with inconclusive viability, not applicable or unspecified; Translations: [ with inconclusive viability] 12-01-2022 Episodic Other complications of (14 sources) High risk ; Translations: [Supervision of high risk , unspecified, second trimester] 01-29-2023 Episodic Other complications of (10 sources) Other specified related conditions, unspecified trimester; Translations: [Other specified complications of , antepartum condition or complication] Onset: 06-16-2024 06-10-2023 Episodic Other complications of (3 sources) Vomiting of , unspecified; Translations: [Unspecified vomiting of , unspecified as to episode of care or not applicable] 06-12-2023 Episodic Other complications of (1 source) Supervision of high risk , unspecified, second trimester; Translations: [Supervision of high risk in second trimester (HCC)] Onset: 07-24-2024 Episodic Other connective tissue disease (1 source) Cramp in lower limb; Translations: [Cramp and spasm] Episodic Other female genital disorders (2 sources) Vaginal bleeding; Translations: [Abnormal uterine and vaginal bleeding, unspecified] 07-04-2023 Chronic Other female genital disorders (1 source) Abnormal uterine and vaginal bleeding, unspecified; Translations: [Other specified noninflammatory disorders of vagina] 07-06-2023 Chronic Other female genital disorders (5 sources) Uterine contractions present; Translations: [Other specified conditions associated with female genital organs and menstrual cycle] 05-17-2023 Episodic Other female genital disorders (4 sources) Other specified conditions associated with female genital organs and menstrual cycle; Translations: [Other specified symptoms associated with female genital organs] 05-17-2023 Episodic Other gastrointestinal disorders (1 source) Intolerance to food; Translations: [Malabsorption due to intolerance, not elsewhere classified] Chronic Other gastrointestinal disorders (1 source) Malabsorption due to intolerance, not elsewhere classified; Translations: [Food intolerance] Onset: 09-29-2022 Chronic Other gastrointestinal disorders (20 sources) Abnormal intestinal absorption; Translations: [Intestinal malabsorption, unspecified] Onset: 05-04-2023 04-30-2023 Chronic Other gastrointestinal disorders (1 source) Intestinal malabsorption, unspecified; Translations: [Impaired intestinal absorption (HCC)] Onset: 05-04-2023 Chronic Other gastrointestinal disorders (2 sources) History of bariatric surgical procedure; Translations: [Bariatric surgery status] Episodic Other gastrointestinal disorders (8 sources) Bariatric surgery status; Translations: [Bariatric surgery status] Onset: 06-16-2024 05-17-2023 Episodic Other liver diseases (1 source) Enzyme level - finding; Translations: [Transaminitis] Episodic Other non-traumatic joint disorders (1 source) Pain in wrist; Translations: [Pain in left wrist] 01-12-2020 Episodic Other screening for suspected conditions (not mental disorders or infectious disease) (4 sources) Cancer cervix screening status; Translations: [Encounter for screening for malignant neoplasm of cervix] Onset: 06-23-2024 Episodic Other upper respiratory infections (2 sources) Chronic sinusitis; Translations: [Chronic sinusitis, unspecified] 11-02-2022 Chronic Polyhydramnios and other problems of amniotic cavity (20 sources) Polyhydramnios; Translations: [Polyhydramnios, third trimester, not applicable or unspecified] Onset: 07-05-2018 Resolved: 03-31-2024 05-26-2023 Episodic Residual codes; unclassified (13 sources) Gestation period, 33 weeks; Translations: [33 weeks gestation of ] 09-27-2019 Episodic Residual codes; unclassified (1 source) Gestation period, 10 weeks; Translations: [10 weeks gestation of ] 01-01-2023 Episodic Residual codes; unclassified (1 source) Gestation period, 14 weeks; Translations: [14 weeks gestation of ] 01-29-2023 Episodic Residual codes; unclassified (2 sources) Gestation period, 30 weeks; Translations: [30 weeks gestation of ] 05-19-2023 Episodic Residual codes; unclassified (3 sources) Gestation period, 31 weeks; Translations: [31 weeks gestation of ] 05-26-2023 Episodic Residual codes; unclassified (3 sources) Gestation period, 32 weeks; Translations: [32 weeks gestation of ] 06-01-2023 Episodic Residual codes; unclassified (5 sources) Gestation period, 29 weeks; Translations: [29 weeks gestation of ] 05-17-2023 Episodic Residual codes; unclassified (4 sources) 29 weeks gestation of ; Translations: [ state, incidental] 05-17-2023 Episodic Residual codes; unclassified (6 sources) 33 weeks gestation of ; Translations: [ state, incidental] 06-10-2023 Episodic Residual codes; unclassified (2 sources) Gestation period, 34 weeks; Translations: [34 weeks gestation of ] 06-18-2023 Episodic Residual codes; unclassified (3 sources) Gestation period, 35 weeks; Translations: [35 weeks gestation of ] 06-25-2023 Episodic Residual codes; unclassified (4 sources) Gestation period, 36 weeks; Translations: [36 weeks gestation of ] 07-02-2023 Episodic Residual codes; unclassified (3 sources) 36 weeks gestation of ; Translations: [ state, incidental] 07-02-2023 Episodic Residual codes; unclassified (1 source) Personal history of other complications of , childbirth and the puerperium; Translations: [Personal history of other genital system and obstetric disorders] 07-06-2023 Episodic Residual codes; unclassified (1 source) Finding of menstrual bleeding; Translations: [Other specified health status] 03-16-2024 Episodic Residual codes; unclassified (1 source) Gestation period, 6 weeks; Translations: [Less than 8 weeks gestation of ] 03-16-2024 Episodic Residual codes; unclassified (1 source) Gestation period, 8 weeks; Translations: [8 weeks gestation of ] 03-31-2024 Episodic Residual codes; unclassified (2 sources) Gestation period, 12 weeks; Translations: [12 weeks gestation of ] 04-26-2024 Episodic Residual codes; unclassified (1 source) Gestation period, 17 weeks; Translations: [17 weeks gestation of ] 05-31-2024 Episodic Residual codes; unclassified (6 sources) Gestation period, 20 weeks; Translations: [20 weeks gestation of ] 06-21-2024 Episodic Residual codes; unclassified (2 sources) Gestation period, 25 weeks; Translations: [25 weeks gestation of ] 07-24-2024 Episodic Residual codes; unclassified (3 sources) Gestation period, 28 weeks; Translations: [28 weeks gestation of ] 08-14-2024 Episodic Residual codes; unclassified (1 source) 31 weeks gestation of ; Translations: [31 weeks gestation of (HCC)] Onset: 09-07-2024 Episodic Residual codes; unclassified (1 source) Unspecified blood type, Rh negative; Translations: [Rh negative state in antepartum period (HCC)] Onset: 06-16-2024 Episodic Residual codes; unclassified (1 source) 30 weeks gestation of ; Translations: [30 weeks gestation of (HCC)] Onset: 08-29-2024 Episodic Residual codes; unclassified (1 source) 28 weeks gestation of ; Translations: [28 weeks gestation of (HCC)] Onset: 08-14-2024 Episodic Residual codes; unclassified (1 source) 25 weeks gestation of ; Translations: [25 weeks gestation of (HCC)] Onset: 07-24-2024 Episodic Residual codes; unclassified (1 source) 20 weeks gestation of ; Translations: [20 weeks gestation of (HCC)] Onset: 06-22-2024 Episodic Spontaneous (1 source) with abortive outcome; Translations: [Complete or unspecified spontaneous without complication] 02-02-2024 Episodic Unclassified (1 source) NO SHOW 09-28-2022 Unclassified (1 source) Transaminitis; Translations: [Transaminitis] Onset: 09-29-2022 Unclassified (20 sources) [facility] Education - COMMON Onset: 01-01-2023 01-01-2023 Unclassified (20 sources) Education - [place] Onset: 01-01-2023 01-01-2023 Unclassified (1 source) Other specified diseases and conditions complicating ; Translations: [Other specified diseases and conditions complicating ] Onset: 06-28-2024 Unclassified (1 source) Gestational Diabetes Onset: 08-29-2024 Past or Other Problems Problem Classification Problem Date Documented Da te Episodic/Chronic Abdominal pain (17 sources) Left upper quadrant pain; Translations: [Left upper quadrant pain] Onset: 10-01-2023 Episodic Asthma (20 sources) Childhood asthma; Translations: [Unspecified asthma, uncomplicated] Onset: 01-03-2018 Resolved: 10-31-2019 10-31-2019 Chronic Deficiency and other anemia (20 sources) Anemia; Translations: [Anemia, unspecified] Onset: 05-04-2023 05-04-2023 Episodic Deficiency and other anemia (1 source) Iron deficiency anemia, unspecified; Translations: [Maternal iron deficiency anemia complicating , second trimester (HCC)] Onset: 06-05-2024 Episodic Diabetes mellitus without complication (20 sources) Abnormal glucose level; Translations: [Other abnormal glucose] Onset: 05-31-2018 Resolved: 08-05-2018 08-05-2018 Episodic Hemorrhage during ; abruptio placenta; placenta previa (20 sources) Antepartum hemorrhage; Translations: [Hemorrhage in early , unspecified] Onset: 12-30-2017 Resolved: 06-21-2018 02-19-2023 Episodic Mycoses (20 sources) Onychomycosis; Translations: [Tinea unguium] Onset: 11-29-2020 Resolved: 01-29-2023 11-29-2020 Episodic Other acquired deformities (20 sources) Spondylolysis; Translations: [Spondylolysis, lumbar region] Onset: 06-25-2011 Resolved: 10-31-2019 10-31-2019 Episodic Other complications of (20 sources) RhD negative; Translations: [Other specified related conditions, unspecified trimester] Onset: 01-17-2018 01-21-2023 Episodic Other complications of (20 sources) Finding of pattern of ; Translations: [Supervision of other high risk pregnancies, unspecified trimester] Onset: 06-15-2018 Resolved: 10-31-2019 10-31-2019 Episodic Other connective tissue disease (20 sources) Left achilles tendonitis; Translations: [Achilles tendinitis, left leg] Onset: 01-10-2013 Resolved: 06-21-2018 06-21-2018 Episodic Other female genital disorders (20 sources) Cyst of uterine adnexa; Translations: [Other noninflammatory disorders of ovary, fallopian tube and broad ligament] Onset: 03-16-2024 03-16-2024 Episodic Other gastrointestinal disorders (20 sources) History of bypass of stomach; Translations: [Bariatric surgery status] Onset: 01-01-2023 01-01-2023 Episodic Other lower respiratory disease (20 sources) Dyspnea; Translations: [Shortness of breath] Onset: 06-15-2018 Resolved: 07-05-2018 07-05-2018 Episodic Other nutritional; endocrine; and metabolic disorders (20 sources) Morbid obesity; Translations: [Morbid (severe) obesity due to excess calories] Onset: 03-22-2019 Resolved: 10-16-2022 11-29-2020 Chronic Other nutritional; endocrine; and metabolic disorders (20 sources) Body mass index 40+ - severely obese; Translations: [Morbid (severe) obesity due to excess calories] Onset: 08-04-2022 Resolved: 10-16-2022 Chronic Other and delivery including normal (20 sources) Early stage of ; Translations: [Encounter for supervision of normal , unspecified, unspecified trimester] Onset: 07-11-2023 11-17-2022 Episodic Other upper respiratory infections (20 sources) Streptococcal sore throat; Translations: [Streptococcal pharyngitis] Onset: 06-29-2019 Resolved: 10-31-2019 11-02-2022 Episodic Ovarian cyst (20 sources) Cyst of left ovary; Translations: [Unspecified ovarian cyst, left side] Onset: 12-16-2023 11-05-2022 Episodic Residual codes; unclassified (20 sources) History of gestational hypertension; Translations: [Personal history of other complications of , childbirth and the puerperium] Onset: 03-16-2019 11-29-2020 Episodic Residual codes; unclassified (20 sources) Gestation period, 27 weeks; Translations: [27 weeks gestation of ] Onset: 05-03-2023 Resolved: 06-21-2023 04-28-2023 Episodic Residual codes; unclassified (20 sources) Gestation period, 19 weeks; Translations: [19 weeks gestation of ] Onset: 06-17-2024 Resolved: 06-23-2024 06-17-2024 Episodic Residual codes; unclassified (1 source) 8 weeks gestation of ; Translations: [8 weeks gestation of ] Onset: 04-14-2024 Episodic Short gestation; low weight; and growth retardation (20 sources) Prematurity of infant; Translations: [ , unspecified weeks of gestation] Onset: 06-16-2024 06-16-2024 Episodic Spondylosis; intervertebral disc disorders; other back problems (20 sources) Low back pain; Translations: [Lumbago] Onset: 07-07-2011 Resolved: 06-21-2018 06-21-2018 Episodic Syncope (20 sources) Syncope; Translations: [Syncope and collapse] Onset: 05-03-2023 04-12-2023 Episodic Viral infection (20 sources) Viral disease; Translations: [Viral infection, unspecified] Onset: 05-17-2013 Resolved: 01-29-2023 Episodic Results Test Name Value Interpretation Reference Range Facility URINE OB DIP B/Oon 5 Glucose Ql (U) Negative Neg mg/dL [facility] Interpretation and review of laboratory results Normal [facility] Protein.monoclonal (U) [Mass/Vol] Negative Neg mg/dL [facility] Examination level ultrasound on 09-07-[address] [facility] Radiology Study observation (narrative) [facility] URINE OB DIP B/Oon 5 Glucose Ql (U) Negative Neg mg/dL [facility] Interpretation and review of laboratory results Normal [facility] Protein.monoclonal (U) [Mass/Vol] trace Neg mg/dL [facility] CNOVon 08-29-2024 CNOV Office Visit (ENWSTR ) ----- SEDA DE LEÓN ([id number]) 1995 F T Date Time Provider Department 08/29/24 8:40 AM EDDI SNEED ENWSTR During your visit today, we recorded the following information about you: Pulse Respiration Blood pressure Weight 74/minute 18/minute 100/68 84.8 kg Jose Munoz RN 08/30/2024 10:25 PM Signed Eddi Sneed MD 08/30/2024 10:25 PM Addendum [facility] Follow up visit note Referred by: Inna Garcia MD (OBGYN) Chief complaint: Gestational Diabetes Mellitus My final recommendations will be communicated back to the requesting physician by way of shared medical record or letter via [place] mail. History of Present Illness: Seda De León is a 29 year old female patient presenting for follow up evaluation of Gestational diabetes mellitus She is A1, currently 30+ weeks of gestation. Last delivery was in 06/2023. Initial visit with vt on 06/22/24. EUGENE 07/25/24 PMH: significant for gastric bypass in 2019, iron deficiency anemia for which she is undergoing infusions along with oral iron supplements. She had 2 pregnancies before gastric bypass -Initially diagnosed with GDM during second and third (so prior two pregnancies) - Blood sugars typically normalize within 1-2 days . . - Weight gain of 10-15 lbs this ; no significant weight changes in previous pregnancies. - no new symptoms of hyperglycemia - she reports no concerns today other than some lows No known diabetic complications as expected from GDM Other comorbidities-- No -Family history of diabetes mellitus - No Personal history of pancreatitis-- No History of alcohol consumption--No Family history of thyroid cancer-- No Personal history of Urinary tract infections -- None is the recent past - Insulin therapy initiated one week ago with Lispro and Lantus due to blood sugars >200 mg/dL. . Diabetes Medications -Current regimen: insulin NPH 32 units before breakfast, 16 units before dinner started on initial visit with me, switched from basal-bolus (TID) regimen which resulted in multiple hypoglycemic episodes which are now better Reduced dose of before dinner insulin to 14 units on last visit, and advised to go down further if continues to experience lows after 2 to 3 days of taking new dose- she further reduced it as instructed to 11 units now for the last few days -Misses doses: None -Adverse medication effects: hypoglycemia -Rotating injection sites: yes -Previously Used DM Meds: She was on insulin during previous , treated by OBGYN . Blood sugars -Self monitoring of blood sugar via CGM Summary of Personal CGM Findings: Type of CGM: [employer] 3+ August 02, 2024 to August 29, 2024 1) CGM recording is adequate for interpretation. Worn 95% of time. 2) Average glucose is 85 mg/dL. BG range/St. Dev: 25% 3) 82% time in range 70-180 mg/dL, however ranges are different and hence not significantly concerning on most blood sugar readings and the reading mostly except some are within goal 4) patterns: shows random lows (below recommended threshold for ) to lowest 56 mg/dl, during the day, and few overnight . Hypoglycemia -Hypoglycemic episodes: much less frequent than before, but still has some lows randomly -Frequency and timing of hypoglycemia: lowest 54 mg/dl -Hypoglycemia awareness: yes, diaphoresis and tremors. . Lifestyle -Exercise: low to moderate -Diet: - Adheres to a low-carb, high-protein diet, consuming 5 small meals daily since gastric bypass . ROS: SYSTEMIC: Denies fatigue, malaise, energy, Weight has been stable, heat/cold intolerance, polydipsia EYES: Denies blurring of vision, diplopia, pain/discomfort, excessive tearing, swelling of eye lids, bulging, redness, dryness, NECK: Denies goiter, lump, pain/discomfort, dysphagia, hoarseness, sore thorat RESPIRATORY: Denies dyspnea at rest/with exertion, orthopnea cough, pleuritic chest pain, snoring, apnea episodes CARDIOVASCULAR: Chest pain, palpitations, irregular heart beats GASTRO-INTESTINAL:Denies Nausea, vomiting, abdominal pain, hyperdefecation, rectal bleeding NEUROLOGICAL: Denies dizziness, lightheadedness, weakness, cramping, numbness/tingling of extremities MUSCULOSKELETAL: Denies joint pain, stiffness, swelling, cramping or weakness. GENITOURINARY: Denies polyuria, recurrent UTI/yeast infections SKIN: Denies dryness, brittle nails, hair loss, alopecia, excessive sweating, flushing, darkening of skin PSYCHIATRIC: Denies anxiety, depression, panic attacks, irritability, mood swings Past Medical History PAST MEDICAL HISTORY Diagnosis Date Anemia complicating , first trimester ([facility]) 03/24/2019 Anemia during in second trimester ([facility]) 05/19/2023 Asthma as a child [employer] (more content not included)... Normal [facility] URINE OB DIP B/Oon 5 Glucose Ql (U) Negative Neg mg/dL [facility] Interpretation and review of laboratory results Normal 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 STUDENT SERVICES COUNSELOR FRVW [place] OGWE During your visit today, we recorded the following information about you: Arabella Sanz RN 08/15/2024 8:39 AM Signed 3rd risk assessment form submitted 08/15/24 Arabella Sanz RN Allergies As of Date: 08/15/2024 Noted Allergy Reaction CEFDINIR 04/11/2012 11 - Vomiting MORPHINE 05/15/2013 4 - Hives 12 - Shortness of Breath Comments: given medication at [facility] and reacted PEANUTS 12/18/2014 7 - Swelling Comments: redness Date Reviewed: 08/14/2024 Reviewed by: Donna Miguel MA - Fully Assessed Reason for Visit: PRAF [4193] Prescriptions as of 08/15/2024 - Insulin Douglas, Disposable, (PEN NEEDLE) 32 gauge x 5/32 1 each as needed. - Blood-Glucose Sensor (FREESTYLE DELORIS 3 PLUS SENSOR) ira Please change every 15 days - insulin NPH subcutaneous pen Take 32 units before breakfast and 16 units before dinner - flash glucose sensor (FREESTYLE DELORIS 14 DAY SENSOR) kit Apply new sensor every 14 days to upper arm. Use to check blood sugar at least 4 times daily. - blood sugar diagnostic (FREESTYLE PRECISION CARA STRIPS) test strip Use to check blood sugar once daily as needed. - aspirin, enteric coated (ECOTRIN LOW STRENGTH) 81 mg EC tablet Take 1 tablet by mouth once daily. - ondansetron orally disintegrating (ZOFRAN ODT) 4 mg disintegrating tablet Take 1 tablet by mouth every 8 hours as needed. - ferrous sulfate 325 mg (65 mg iron) tablet Take 325 mg by mouth once daily. - vit/iron fum/folic ac (-FOLIC ACID ORAL) Take by mouth. Problem List As Of Date 08/15/2024 Noted Resolved Spondylolysis of lumbar region [M43.06] 06/25/2011 10/31/2019 Lumbago [M54.50] 07/07/2011 06/21/2018 Tendonitis, Achilles, left [M76.62] 01/10/2013 06/21/2018 Mononucleosis [B27.90] 05/17/2013 06/21/2018 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HCC) [Q07.01] 07/10/2013 Bleeding in early [O20.9] 12/30/2017 06/21/2018 Patient request for diagnostic testing [Z01.89] 12/30/2017 08/15/2019 Childhood asthma without complication [J45.909] 01/03/2018 10/31/2019 Rh negative state in antepartum period (HCC) [O*01/17/2018 Abnormal glucose measurement [R73.09] 05/31/2018 08/05/2018 Short interval between pregnancies affecting pr*06/15/2018 10/31/2019 Shortness of breath [R06.02] 06/15/2018 07/05/2018 Polyhydramnios (HCC) [O40.9XX0] 07/05/2018 History of gestational hypertension [Z87.59] 03/16/2019 Morbid obesity (HCC) [E66.01] 03/22/2019 10/16/2022 Acute upper respiratory infection [J06.9] 06/29/2019 10/31/2019 Well adult exam [Z00.00] 05/16/2020 10/16/2022 Hx of gestational diabetes mellitus, not curren*05/16/2020 01/29/2023 Onychomycosis [B35.1] 11/29/2020 01/29/2023 COVID-19 virus infection [U07.1] 03/26/2021 01/29/2023 Obesity, Class III, BMI >= 40 [E66.813] 08/04/2022 10/16/2022 Morbid obesity with BMI of 40.0-44.9, adult (HC*08/20/2022 10/16/2022 History of gastric bypass [Z98.84] 01/01/2023 Pre-syncope [R55] 05/03/2023 27 weeks gestation of [Z3A.27] 05/03/2023 06/21/2023 Anemia [D64.9] 05/04/2023 Maternal iron deficiency anemia complicating pr*05/04/2023 03/31/2024 Impaired intestinal absorption [K90.9] 05/04/2023 Insulin controlled gestational diabetes mellitu*05/19/2023 Anemia during in second trimester [O9*05/19/2023 03/31/2024 Paratubal cyst [N83.8] 03/16/2024 Hx of gestational diabetes in prior , *03/31/2024 Encounter for supervision of normal i*03/31/2024 Anemia affecting , antepartum [O99.019]04/18/2024 Maternal iron deficiency anemia complicating pr*06/05/2024 Prematurity of fetus (HCC) [P07.30] 06/16/2024 19 weeks gestation of (HCC) [Z3A.19] 06/17/2024 06/23/2024 Request for sterilization [Z30.2] 08/14/2024 Encounter Status:Closed by ARABELLA SANZ on 08/15/24 Normal [facility] CBC W Auto Differential pane l (Bld)on 08-14-2024 Basophils (Bld) [#/Vol] 0.04 10*3/uL Normal <0.11 [facility] Comment on above: Order Comment: Speci men Type: BLOOD SPECIMENOrdering Facility: [facility] Address: [address] [place] [address] Performed By: #### 5 7021-8 ####[facility] CENTERLIA [id number] [place] [address] [place] Basophils/100 WBC (Bld) 0.4 % Normal [facility] Comment on above: Order Comment: Speci men Type: BLOOD SPECIMENOrdering Facility: [facility] Address: [address] [place] [address] Performed By: #### 5 7021-8 ####[facility] CENTERLIA [id number] [place] [address] [place] Differential cell count method Nom (Bld) Auto Normal [facility] Comment on above: Order Comment: Speci men Type: BLOOD SPECIMENOrdering Facility: [facility] Address: [address] [place] [address] Performed By: #### 5 7021-8 ####[facility] CENTERLIA [id number] [place] [address] [place] Eosinophils (Bld) [#/Vol] 0.11 10*3/uL Normal <0.46 [facility] Comment on above: Order Comment: Speci men Type: BLOOD SPECIMENOrdering Facility: [facility] Address: [address] [place] [address] Performed By: #### 5 7021-8 ####[facility] CENTERLIA [id number] [place] [address] [place] Eosinophils/100 WBC (Bld) 1.1 % Normal [facility] Comment on above: Order Comment: Speci men Type: BLOOD SPECIMENOrdering Facility: [facility] Address: [address] [place] [address] Performed By: #### 5 7021-8 ####[facility] SHAILESHNCTAYO [id number] [place] [address] [place] Erythrocyte distribution width (RBC) [Ratio] 18.4 % High 11.5-15.0 [facility] Comment on above: Order Comment: Speci men Type: BLOOD SPECIMENOrdering Facility: [facility] Address: [address] [place] [address] Performed By: #### 5 7021-8 ####[facility] JESSENIAMIDDLETONNCLIA [id number] [place] [address] [place] Hematocrit (Bld) [Volume fraction] 33.3 % Low 36.0-46.0 [facility] Comment on above: Order Comment: Speci men Type: BLOOD SPECIMENOrdering Facility: [facility] Address: [address] [place] [address] Performed By: #### 5 7021-8 ####[facility] JESSENIAMIDDLETONNCLIA [id number] [place] [address] [place] Hemoglobin (Bld) [Mass/Vol] 10.3 g/dL Low 11.5-15.5 [facility] Comment on above: Order Comment: Speci men Type: BLOOD SPECIMENOrdering Facility: [facility] Address: [address] [place] [address] Performed By: #### 5 7021-8 ####[facility]ITALNCLIA [id number] [place] [address] [place] Immature granulocytes (Bld) [#/Vol] 0.05 10*3/uL Normal <0.10 [facility] Comment on above: Order Comment: Speci men Type: BLOOD SPECIMENOrdering Facility: [facility] Address: [address] [place], [place] [address] Performed By: #### 5 7021-8 ####[facility] HOSPITALNCLIA [id number] [place] [address] [place] [facility] Immature granulocytes/100 WBC (Bld) 0.5 % Normal [facility] Comment on above: Order Comment: Speci men Type: BLOOD SPECIMENOrdering Facility: [facility] Address: [address] [place] [address] Performed By: #### 5 7021-8 ####[facility] HOSPITALNCLI [id number] [place] [address] [place] Lymphocytes (Bld) [#/Vol] 2.22 10*3/uL Normal 1.00-4.00 [facility] Comment on above: Order Comment: Speci men Type: BLOOD SPECIMENOrdering Facility: [facility] Address: [address] [place] [address] Performed By: #### 5 7021-8 ####[facility]IM[facility]E [id number] [place] [address] [place] Lymphocytes/100 WBC (Bld) 21.6 % Normal [facility] Comment on above: Order Comment: Speci men Type: BLOOD SPECIMENOrdering Facility: [facility] Address: [address] [place] [address] Performed By: #### 5 7021-8 ####[facility] [id number] [place] [address] [place] MCH (RBC) [Entitic mass] 25.4 pg Low 26.0-34.0 [facility] Comment on above: Order Comment: Speci men Type: BLOOD SPECIMENOrdering Facility: [facility] Address: [address] [place] [address] Performed By: #### 5 7021-8 ####[facility]ITALNCST[facility] [id number] [place] [address] [place] MCHC (RBC) [Mass/Vol] 30.9 g/dL Normal 30.5-36.0 [facility] Comment on above: Order Comment: Speci men Type: BLOOD SPECIMENOrdering Facility: [facility] Address: [address] [place] [address] Performed By: #### 5 7021-8 ####[facility] JESSENIAIvanMARKOA [id number] [place] [address] [place] MCV (RBC) [Entitic vol] 82.0 fL Normal 80.0-100.0 [facility] Comment on above: Order Comment: Speci men Type: BLOOD SPECIMENOrdering Facility: [facility] Address: [address] [place] [address] Performed By: #### 5 7021-8 ####[facility] HOSPITALNCМАРИНАA [id number] [place] [address] [place] Monocytes (Bld) [#/Vol] 0.83 10*3/uL Normal <0.87 [facility] Comment on above: Order Comment: Speci men Type: BLOOD SPECIMENOrdering Facility: [facility] Address: [address] [place] [address] Performed By: #### 5 7021-8 ####[facility] HOSPITALMARYLIA [id number] [place] [address] [place] Monocytes/100 WBC (Bld) 8.1 % Normal [facility] Comment on above: Order Comment: Speci men Type: BLOOD SPECIMENOrdering Facility: [facility] Address: [address] [place] [address] Performed By: #### 5 7021-8 ####[facility]ITALNCLIA [id number] [place] [address] [place] Neutrophils (Bld) [#/Vol] 7.05 10*3/uL Normal 1.45-7.50 [facility] Comment on above: Order Comment: Speci men Type: BLOOD SPECIMENOrdering Facility: [facility] Address: [address] [place] [address] Performed By: #### 5 7021-8 ####[facility] ROBBIE [id number] [place] [address] [place] Neutrophils/100 WBC (Bld) 68.3 % Normal [facility] Comment on above: Order Comment: Speci men Type: BLOOD SPECIMENOrdering Facility: [facility] Address: [address] [place] [address] Performed By: #### 5 7021-8 ####[facility]ITALNCST[facility] [id number] [place] [address] [place] Nucleated RBC (Bld) [#/Vol] 10*3/uL Normal <0.01 [facility] Comment on above: Order Comment: Speci men Type: BLOOD SPECIMENOrdering Facility: [facility] Address: [address] [place] [address] Performed By: #### 5 7021-8 ####[facility]PITALNCLIA [id number] [place] [address] [place] Nucleated RBC/100 WBC (Bld) [Ratio] 0.0 /100 WBC Normal [facility] Comment on above: Order Comment: Speci men Type: BLOOD SPECIMENOrdering Facility: [facility] Address: [address] [place] [address] Performed By: #### 5 7021-8 ####[facility]A [id number] [place] [address] [place] Platelet mean volume (Bld) [Entitic vol] 9.3 fL Normal 9.0-12.7 [facility] Comment on above: Order Comment: Speci men Type: BLOOD SPECIMENOrdering Facility: [facility] Address: [address] [place] [address] Performed By: #### 5 7021-8 ####[facility] JESSENIAMIDDLETONNCLIA [id number] [place] [address] [place] Platelets (Bld) [#/Vol] 361 10*3/uL Normal 150-400 [facility] Comment on above: Order Comment: Speci men Type: BLOOD SPECIMENOrdering Facility: [facility] Address: [address] [place], [place] [address] Performed By: #### 5 7021-8 ####[facility] JESSENIAMIDDLETONNCLIA [id number] [place] [address] [place] RBC (Bld) [#/Vol] 4.06 10*6/uL Normal 3.90-5.20 [facility] Comment on above: Order Comment: Speci men Type: BLOOD SPECIMENOrdering Facility: [facility] Address: [address] [place] [address] Performed By: #### 5 7021-8 ####[facility]OSPITALNCLIA [id number] [place] [address] [place] WBC (Bld) [#/Vol] 10.30 10*3/uL Normal 3.70-11.00 [facility] Comment on above: Order Comment: Speci men Type: BLOOD SPECIMENOrdering Facility: [facility] Address: [address] [place], [place] [address] Performed By: #### 5 7021-8 ####[facility] HOSPITALNCLIA [id number] [place] [address] [place] Examination level ultrasound on 08-14-[address] [facility] Radiology Study observation (narrative) [facility] Ferritin SerPl-mCncon 2024 Ferritin [Mass/Vol] 15.0 ng/mL Normal 14.7-205.1 [facility] Comment on above: Order Comment: Speci men Type: BLOOD SPECIMENOrdering Facility: [facility] Address: [address] [place] [address] Performed By: #### 2 276-4, 85102-8 ####[facility] LABIA [id number] [place] [id number] [place] Iron and Iron binding capaci ty panelon 08-14-2024 Iron [Mass/Vol] 32 ug/dL Low 41-186 [facility] Comment on above: Order Comment: Speci men Type: BLOOD SPECIMENOrdering Facility: [facility] Address: [address] [place] [address] Performed By: #### 2 276-4, 86875-2 ####[facility] LABIA [id number] [place] [address] [place] Iron binding capacity [Mass/Vol] >532 High 232-386 [facility] Comment on above: Order Comment: Speci men Type: BLOOD SPECIMENOrdering Facility: [facility] Address: [address] [place] [address] Performed By: #### 2 276-4, 67095-3 ####[facility] LABIA [id number] [place] [address] [place] Iron/TIBC [Molar ratio] <6.0 Low 15.0-57.0 [facility] Comment on above: Order Comment: Speci men Type: BLOOD SPECIMENOrdering Facility: [facility] Address: [address] [place] [address] Performed By: #### 2 276-4, 81492-6 ####[facility] LABIA [id number] [place] [id number] [place] Reagin and Treponema pallidu m IgG and IgM [Interp]on 08-14-2024 T. pallidum IgG+IgM IA Ql (S) Non-Reactive Normal Nonreactive [facility] Comment on above: Order Comment: Speci men Type: BLOOD SPECIMENOrdering Facility: [facility] Address: [address] [place] [address] Performed By: #### 7 3752-8 ####[facility] LABCLIA [id number] [place] [address] [place] Reagin+T pallidum IgG+IgM Se rPl-Impon 08-14-2024 Reagin and Treponema pallidum IgG and IgM [Interp] Cannot exclude recent Treponemal infection if specimen collected within 7-10 days after appearance of suspect lesions or 2-3 weeks after an exposure. Clinical correlation is required. Normal [facility] Comment on above: Order Comment: Speci men Type: BLOOD SPECIMENOrdering Facility: [facility] Address: [address] [place] [address] Performed By: #### 7 3752-8 ####[facility] LABCLIA [id number] [place] [address] [place] TYPE + SCREEN PRENATALon ABO A Normal [facility] Comment on above: Order Comment: Speci men Type: BLOOD SPECIMENOrdering Facility: [facility] Address: [address] [place] [address] Performed By: #### T SPN ####[facility] BLOOD BANKCLIA [id number] [place] [address] [place] Rh Nom (Bld) Negative Normal [facility] Comment on above: Order Comment: Speci men Type: BLOOD SPECIMENOrdering Facility: [facility] Address: [address] [place] [address] Performed By: #### T SPN ####[facility] BLOOD BANKCLIA [id number] [place] [address] [place] TYPE AND SCREEN EXPIRATION 08/17/2024 23:59 Normal [facility] Comment on above: Order Comment: Speci men Type: BLOOD SPECIMENOrdering Facility: [facility] Address: [address] [place] [address] Performed By: #### T SPN ####[facility] BLOOD BANKCLIA [id number] [place] [id number] [place] URINE OB DIP B/Oon Glucose Ql (U) Negative Neg mg/dL [facility] Interpretation and review of laboratory results Normal [facility] Protein.monoclonal (U) [Mass/Vol] Negative Neg mg/dL [facility] CNOVon 07-25-2024 CNOV Office Visit (ENWSTR ) ----- SEDA DE LEÓN ([id number]) 1995 F CHT Date Time Provider Department 07/25/24 2:00 PM EDDI SNEED ENWSTR During your visit today, we recorded the following information about you: Pulse Blood pressure Weight 86/minute 111/77 77 kg Jose Munoz RN 08/02/2024 1:11 PM Signed Eddi Sneed MD 08/02/2024 1:09 PM Signed [facility] Initial Clinic Visit Note Referred by: Inna Garcia MD (OBGYN) Chief complaint: Gestational Diabetes Mellitus My final recommendations will be communicated back to the requesting physician by way of shared medical record or letter via US mail. History of Present Illness: Seda De León is a 29 year old female patient presenting as a new patient to me for evaluation of Gestational diabetes mellitus She is A1, currently 26 weeks of gestation. Last delivery was in 06/2023. PMH: significant for gastric bypass in 2019, iron deficiency anemia for which she is undergoing infusions along with oral iron supplements. She had 2 pregnancies before gastric bypass -Initially diagnosed with GDM during second and third (so prior two pregnancies) - Blood sugars typically normalize within 1-2 days . . - Weight gain of 10-15 lbs this ; no significant weight changes in previous pregnancies. - no new symptoms of hyperglycemia - she reports no concerns today other than some lows No known diabetic complications as expected from GDM Other comorbidities-- No -Family history of diabetes mellitus - No Personal history of pancreatitis-- No History of alcohol consumption--No Family history of thyroid cancer-- No Personal history of Urinary tract infections -- None is the recent past - Insulin therapy initiated one week ago with Lispro and Lantus due to blood sugars >200 mg/dL. . Diabetes Medications -Current regimen: insulin NPH 32 units before breakfast, 16 units before dinner started on initial visit with me, switched from basal-bolus (TID) regimen which resulted in multiple hypoglycemic episodes which are now better -Misses doses: None -Adverse medication effects: hypoglycemia -Rotating injection sites: yes -Previously Used DM Meds: She was on insulin during previous , treated by OBGYN . Blood sugars -Self monitoring of blood sugar via CGM Summary of Personal CGM Findings: Type of CGM: [email or web address] G7 1) CGM recording is adequate for interpretation. Worn 94% of time. 2) Average glucose is 81 mg/dL. BG range/St. Dev: 24.8% 3) 73% time in range 70-180 mg/dL, however ranges are different and hence not significantly concerning on most blood sugar readings 4) patterns: shows random lows (below recommended threshold for ) to lowest 56 mg/dl, during the day, and few overnight . Hypoglycemia -Hypoglycemic episodes: less frequent than before, but still has some overnight lows -Frequency and timing of hypoglycemia: lowest 56 mg/dl -Hypoglycemia awareness: yes, diaphoresis and tremors. . Lifestyle -Exercise: low to moderate -Diet: - Adheres to a low-carb, high-protein diet, consuming 5 small meals daily since gastric bypass . ROS: SYSTEMIC: Denies fatigue, malaise, energy, Weight has been stable, heat/cold intolerance, polydipsia EYES: Denies blurring of vision, diplopia, pain/discomfort, excessive tearing, swelling of eye lids, bulging, redness, dryness, NECK: Denies goiter, lump, pain/discomfort, dysphagia, hoarseness, sore thorat RESPIRATORY: Denies dyspnea at rest/with exertion, orthopnea cough, pleuritic chest pain, snoring, apnea episodes CARDIOVASCULAR: Chest pain, palpitations, irregular heart beats GASTRO-INTESTINAL:Denies Nausea, vomiting, abdominal pain, hyperdefecation, rectal bleeding NEUROLOGICAL: Denies dizziness, lightheadedness, weakness, cramping, numbness/tingling of extremities MUSCULOSKELETAL: Denies joint pain, stiffness, swelling, cramping or weakness. GENITOURINARY: Denies polyuria, recurrent UTI/yeast infections SKIN: Denies dryness, brittle nails, hair loss, alopecia, excessive sweating, flushing, darkening of skin PSYCHIATRIC: Denies anxiety, depression, panic attacks, irritability, mood swings Past Medical History PAST MEDICAL HISTORY Diagnosis Date Anemia complicating , first trimester ([facility]) 03/24/2019 Anemia during in second trimester ([facility]) 05/19/2023 Asthma as a child Childhood asthma without complication ([facility]) 01/03/2018 01/03/2018 Not currently using Albuterol inhaler. Continue to monitor. No Hemabate. SW Concussion 2009 COVID-19 virus infection 03/26/202103/2021 Diet controlled gestational diabetes mellitus (GDM) in third trimester ([facility]) 08/16/2019 Gestational hypertension ([facility]) History of gestational hypertension 03/16/2019 Hx of gestational harsh (more content not included)... Normal [facility] URINE OB DIP B/Oon 5 Glucose Ql (U) Negative Neg mg/dL 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 [facility] During your visit today, we recorded the following information about you: Arabella Sanz RN 2024 12:06 PM Signed 2nd risk assessment form submitted 06/26/24 Arabella Sanz RN Allergies As of Date: 2024 Noted Allergy Reaction CEFDINIR 04/11/2012 11 - Vomiting MORPHINE 05/15/2013 4 - Hives 12 - Shortness of Breath Comments: given medication at [facility] and reacted PEANUTS 12/18/2014 7 - Swelling Comments: redness Date Reviewed: 06/23/2024 Reviewed by: Paulina Salas, RN - Fully Assessed Reason for Visit: PRAF [4193] Prescriptions as of 2024 - Blood-Glucose Sensor (FREESTYLE DELORIS 3 PLUS SENSOR) ira Please change every 15 days - insulin NPH subcutaneous pen Take 32 units before breakfast and 16 units before dinner - flash glucose sensor (FREESTYLE DELORIS 14 DAY SENSOR) kit Apply new sensor every 14 days to upper arm. Use to check blood sugar at least 4 times daily. - blood sugar diagnostic (FREESTYLE PRECISION CARA STRIPS) test strip Use to check blood sugar once daily as needed. - Insulin Douglas, Disposable, (PEN NEEDLE) 32 gauge x 5/32 1 each as needed. - aspirin, enteric coated (ECOTRIN LOW STRENGTH) 81 mg EC tablet Take 1 tablet by mouth once daily. - ondansetron orally disintegrating (ZOFRAN ODT) 4 mg disintegrating tablet Take 1 tablet by mouth every 8 hours as needed. - ferrous sulfate 325 mg (65 mg iron) tablet Take 325 mg by mouth once daily. - vit/iron fum/folic ac (-FOLIC ACID ORAL) Take by mouth. 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] 07/10/2013 Bleeding in early [O20.9] 12/30/2017 06/21/2018 Patient request for diagnostic testing [Z01.89] 12/30/2017 08/15/2019 Childhood asthma without complication [J45.909] 01/03/2018 10/31/2019 Rh negative state in antepartum period (HCC) [O*01/17/2018 Abnormal glucose measurement [R73.09] 05/31/2018 08/05/2018 Short interval between pregnancies affecting pr*06/15/2018 10/31/2019 Shortness of breath [R06.02] 06/15/2018 07/05/2018 Polyhydramnios in third trimester [O40.3XX0] 07/05/2018 03/31/2024 History of gestational hypertension [Z87.59] 03/16/2019 Morbid obesity (HCC) [E66.01] 03/22/2019 10/16/2022 Acute upper respiratory infection [J06.9] 06/29/2019 10/31/2019 Well adult exam [Z00.00] 05/16/2020 10/16/2022 Hx of gestational diabetes mellitus, not curren*05/16/2020 01/29/2023 Onychomycosis [B35.1] 11/29/2020 01/29/2023 COVID-19 virus infection [U07.1] 03/26/2021 01/29/2023 Obesity, Class III, BMI >= 40 [E66.01] 08/04/2022 10/16/2022 Morbid obesity with BMI of 40.0-44.9, adult (HC*08/20/2022 10/16/2022 History of gastric bypass [Z98.84] 01/01/2023 Pre-syncope [R55] 05/03/2023 27 weeks gestation of [Z3A.27] 05/03/2023 06/21/2023 Anemia [D64.9] 05/04/2023 Maternal iron deficiency anemia complicating pr*05/04/2023 03/31/2024 Impaired intestinal absorption [K90.9] 05/04/2023 Insulin controlled gestational diabetes mellitu*05/19/2023 Anemia during in second trimester [O9*05/19/2023 03/31/2024 Paratubal cyst [N83.8] 03/16/2024 Hx of gestational diabetes in prior , *03/31/2024 Encounter for supervision of normal i*03/31/2024 Anemia affecting , antepartum [O99.019]04/18/2024 Maternal iron deficiency anemia complicating pr*06/05/2024 Prematurity of fetus (HCC) [P07.30] 06/16/2024 19 weeks gestation of (HCC) [Z3A.19] 06/17/2024 06/23/2024 Encounter Status:Closed by ARABELLA SANZ on 06/26/24 [facility] Telephone (ENDWST) ----- SEDA DE LEÓN ([id number]) 1995 F CHT Date Time Provider Department 06/26/24 EDDI SNEED ENDWST During your visit today, we recorded the following information about you: Kimi Jason LPN 2024 9:17 AM Signed Patient calling stating she is still having issues with lows. She has been running between 60s AND 70s and even after she eats she doesn't even peak to 150. Verified that she is double checking with finger sticks and taking insulin 32 units before breakfast and 16 units before dinner. She is having symptoms of shakiness, lightheadedness and sweating. ELLEN Askew Brittney, RN 2024 9:49 AM Signed Eddi Sneed MD 2024 7:17 PM Signed She can lower the dose to 28 units in am and 14 units in pm. But most of her labs are within ranges. Please advise her to quit following what the sensor for a low, and rather let us know of blood sugars less than 60 mg/dl before next visit in 3 weeks Inna Dowell MA 06/27/2024 9:05 AM Signed Phoned patient as requested. Patient accepts dosage change. Patient is double checking readings with glucometer. Inna Dowell MA Allergies As of Date: 2024 Noted Allergy Reaction CEFDINIR 04/11/2012 11 - Vomiting MORPHINE 05/15/2013 4 - Hives 12 - Shortness of Breath Comments: given medication at [facility] ER and reacted PEANUTS 12/18/2014 7 - Swelling Comments: redness Date Reviewed: 06/23/2024 Reviewed by: Paulina Salas, KEYONNA - Fully Assessed Prescriptions as of 06/27/2024 - Blood-Glucose Sensor (FREESTYLE DELORIS 3 PLUS SENSOR) ira Please change every 15 days - insulin NPH subcutaneous pen Take 32 units before breakfast and 16 units before dinner - flash glucose sensor (FREESTYLE DELORIS 14 DAY SENSOR) kit Apply new sensor every 14 days to upper arm. Use to check blood sugar at least 4 times daily. - blood sugar diagnostic (FREESTYLE PRECISION CARA STRIPS) test strip Use to check blood sugar once daily as needed. - Insulin Douglas, Disposable, (PEN NEEDLE) 32 gauge x 5/32 1 each as needed. - aspirin, enteric coated (ECOTRIN LOW STRENGTH) 81 mg EC tablet Take 1 tablet by mouth once daily. - ondansetron orally disintegrating (ZOFRAN ODT) 4 mg disintegrating tablet Take 1 tablet by mouth every 8 hours as needed. - ferrous sulfate 325 mg (65 mg iron) tablet Take 325 mg by mouth once daily. - vit/iron fum/folic ac (-FOLIC ACID ORAL) Take by mouth. 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] 07/10/2013 Bleeding in early [O20.9] 12/30/2017 06/21/2018 Patient request for diagnostic testing [Z01.89] 12/30/2017 08/15/2019 Childhood asthma without complication [J45.909] 01/03/2018 10/31/2019 Rh negative state in antepartum period (HCC) [O*01/17/2018 Abnormal glucose measurement [R73.09] 05/31/2018 08/05/2018 Short interval between pregnancies affecting pr*06/15/2018 10/31/2019 Shortness of breath [R06.02] 06/15/2018 07/05/2018 Polyhydramnios in third trimester [O40.3XX0] 07/05/2018 03/31/2024 History of gestational hypertension [Z87.59] 03/16/2019 Morbid obesity (HCC) [E66.01] 03/22/2019 10/16/2022 Acute upper respiratory infection [J06.9] 06/29/2019 10/31/2019 Well adult exam [Z00.00] 05/16/2020 10/16/2022 Hx of gestational diabetes mellitus, not curren*05/16/2020 01/29/2023 Onychomycosis [B35.1] 11/29/2020 01/29/2023 COVID-19 virus infection [U07.1] 03/26/2021 01/29/2023 Obesity, Class III, BMI >= 40 [E66.01] 08/04/2022 10/16/2022 Morbid obesity with BMI of 40.0-44.9, adult (HC*08/20/2022 10/16/2022 History of gastric bypass [Z98.84] 01/01/2023 Pre-syncope [R55] 05/03/2023 27 weeks gestation of [Z3A.27] 05/03/2023 06/21/2023 Anemia [D64.9] 05/04/2023 Maternal iron deficiency anemia complicating pr*05/04/2023 03/31/2024 Impaired intestinal absorption [K90.9] 05/04/2023 Insulin controlled gestational diabetes mellitu*05/19/2023 Anemia during in second trimester [O9*05/19/2023 03/31/2024 Paratubal cyst [N83.8] 03/16/2024 Hx of gestational diabetes in prior , *03/31/2024 Encounter for supervision of normal i*03/31/2024 Anemia affecting , antepartum [O99.019]04/18/2024 Maternal iron deficiency anemia complicating pr*06/05/2024 Prematurity of fetus (HCC) [P07.30] 06/16/2024 19 weeks gestation of (HCC) [Z3A.19] 06/17/2024 06/23/2024 Encounter Status:Closed by INNA DOWELL on 06/27/24 Normal [facility] Urine Cultureon 06-25-2024 URC Below infection colt l. Mixed Gram Positive Organisms [place] Count <1000 MIXC Mixed contaminants. Submit a new specimen if indicated. Normal [facility] Comment on above: Performed By: #### B [id number], BTS, L100.0100 #### [facility] [address] [place], [address] Bilirubin Test strip Ql (U)O rdered By: Inna Garcia on 06-23-2024 Bilirubin Ql (U) Negative Negative [facility] CNPNon 06-23-2024 CNPN Telephone (EMQ) ----- SEDA DE LEÓN ([id number]) 1995 F T Date Time Provider Department 06/23/24 EDDI SNEED During your visit today, we recorded the following information about you: Cade Bustamante 06/23/2024 2:57 PM Signed Initiated PA for insulin NPH human (HUMULIN N NPH INSULIN KWIKPEN) 100 unit/mL through Covermymeds Questions Completed/attached notes Waiting for determination Cade Marshall Prior Caseworker Intake Endocrinology AND Metabolism [place] Cade Bustamante 06/23/2024 3:25 PM Signed insulin NPH human (HUMULIN N NPH INSULIN KWIKPEN) 100 unit/mL has been approved Notified patient through aida Marshall Prior Caseworker Intake Endocrinology AND Metabolism [place] Allergies As of Date: 06/23/2024 Noted Allergy Reaction CEFDINIR 04/11/2012 11 - Vomiting MORPHINE 05/15/2013 4 - Hives 12 - Shortness of Breath Comments: given medication at [facility] and reacted PEANUTS 12/18/2014 7 - Swelling Comments: redness Date Reviewed: 06/23/2024 Reviewed by: Paulina Salas RN - Fully Assessed Reason for Visit: Insurance Authorization [[id number]] Cmt: (HUMULIN N NPH INSULIN KWIKPEN) 100 unit/mL - Insurance Approval Prescriptions as of 06/23/2024 - Blood-Glucose Sensor (FREESTYLE DELORIS 3 PLUS SENSOR) ira Please change every 15 days - insulin NPH subcutaneous pen Take 32 units before breakfast and 16 units before dinner - flash glucose sensor (FREESTYLE DELORIS 14 DAY SENSOR) kit Apply new sensor every 14 days to upper arm. Use to check blood sugar at least 4 times daily. - blood sugar diagnostic (FREESTYLE PRECISION CARA STRIPS) test strip Use to check blood sugar once daily as needed. - Insulin Douglas, Disposable, (PEN NEEDLE) 32 gauge x 5/32 1 each as needed. - aspirin, enteric coated (ECOTRIN LOW STRENGTH) 81 mg EC tablet Take 1 tablet by mouth once daily. - ondansetron orally disintegrating (ZOFRAN ODT) 4 mg disintegrating tablet Take 1 tablet by mouth every 8 hours as needed. - ferrous sulfate 325 mg (65 mg iron) tablet Take 325 mg by mouth once daily. - vit/iron fum/folic ac (-FOLIC ACID ORAL) Take by mouth. 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] 06/25/2011 10/31/2019 Lumbago [M54.50] 07/07/2011 06/21/2018 Tendonitis, Achilles, left [M76.62] 01/10/2013 06/21/2018 Mononucleosis [B27.90] 05/17/2013 06/21/2018 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HCC) [Q07.01] 07/10/2013 Bleeding in early [O20.9] 12/30/2017 06/21/2018 Patient request for diagnostic testing [Z01.89] 12/30/2017 08/15/2019 Childhood asthma without complication [J45.909] 01/03/2018 10/31/2019 Rh negative state in antepartum period (HCC) [O*01/17/2018 Abnormal glucose measurement [R73.09] 05/31/2018 08/05/2018 Short interval between pregnancies affecting pr*06/15/2018 10/31/2019 Shortness of breath [R06.02] 06/15/2018 07/05/2018 Polyhydramnios in third trimester [O40.3XX0] 07/05/2018 03/31/2024 History of gestational hypertension [Z87.59] 03/16/2019 Morbid obesity (HCC) [E66.01] 03/22/2019 10/16/2022 Acute upper respiratory infection [J06.9] 06/29/2019 10/31/2019 Well adult exam [Z00.00] 05/16/2020 10/16/2022 Hx of gestational diabetes mellitus, not curren*05/16/2020 01/29/2023 Onychomycosis [B35.1] 11/29/2020 01/29/2023 COVID-19 virus infection [U07.1] 03/26/2021 01/29/2023 Obesity, Class III, BMI >= 40 [E66.01] 08/04/2022 10/16/2022 Morbid obesity with BMI of 40.0-44.9, adult (HC*08/20/2022 10/16/2022 History of gastric bypass [Z98.84] 01/01/2023 Pre-syncope [R55] 05/03/2023 27 weeks gestation of [Z3A.27] 05/03/2023 06/21/2023 Anemia [D64.9] 05/04/2023 Maternal iron deficiency anemia complicating pr*05/04/2023 03/31/2024 Impaired intestinal absorption [K90.9] 05/04/2023 Insulin controlled gestational diabetes mellitu*05/19/2023 Anemia during in second trimester [O9*05/19/2023 03/31/2024 Paratubal cyst [N83.8] 03/16/2024 Hx of gestational diabetes in prior , *03/31/2024 Encounter for supervision of normal i*03/31/2024 Anemia affecting , antepartum [O99.019]04/18/2024 Maternal iron deficiency anemia complicating pr*06/05/2024 Prematurity of fetus (HCC) [P07.30] 06/16/2024 19 weeks gestation of (HCC) [Z3A.19] 06/17/2024 06/23/2024 Encounter Status:Closed by CADE BUSTAMANTE on 06/23/24 Normal [facility] Examination level ultrasound on 06-23-2024 Indication Detailed anatomic survey Gestational diabetes mellitus before 24 weeks Impression REMOTE READ The patient is referred for a detailed anatomic survey. - Single, live, intrauterine . - biometry is consistent with the established gestational age. - No malformations were visualized on a complete detailed anatomic survey. - The amniotic fluid volume is normal amount. - The placenta is posterior, fundal. - The Transabdominal cervical length measures 40.1 mm with no evidence of funneling or other dynamic changes. - Not all structural malformations can be detected by ultrasound examination. Recommendations Monthly growth ultrasound Maternal Assessment Height 160 cm Height (ft) 5 ft Height (in) 3 in Physical Exam Initial weight (lb) 147 lb Initial BMI 26.05 kg/m Maternal assessment other: 5 Para 3 Method Transabdominal ultrasound examination. View: Adequate visualization Cash . Number of fetuses: 1 Dating LMP on: 01/30/2024 Cycle: LMP date not known GA by LMP 20 w + 5 d BELEM by LMP: 11/05/2024 GA by prior assessment 20 w + 5 d BELEM by prior assessment: 11/05/2024 Ultrasound examination on: 06/23/2024 GA by U/S based upon: AC, BPD, Femur, HC GA by U/S 21 w + 0 d BELEM by U/S: 11/03/2024 Assigned: based on stated BELEM, selected on 06/23/2024 Assigned GA 20 w + 5 d Assigned BELEM: 11/05/2024 General Evaluation Cardiac activity present. FHR 140 bpm. movements: present. Presentation: breech Placenta: Placental site: posterior, fundal Umbilical cord: Cord vessels: 3 vessel cord Amniotic fluid: Amount of AF: normal amount. MVP 5.3 cm Growth Overview Exam date GA BPD (mm) HC (mm) AC (mm) FL (mm) HL (mm) EFW (g) 06/23/2024 20w 5d 49.5 60% 189.7 66% 165.8 73% 32.2 38% 32.2 51% 389 57% Biometry Standard BPD 49.5 mm 21w 0d 60% Hadlock OFD 68.8 mm 21w 3d 95% Nicolaides HC 189.7 mm 21w 2d 66% Kristin Cerebellum tr 21.5 mm 20w 2d 52% Hill Nuchal fold 4.2 mm AC 165.8 mm 21w 4d 73% Hadlock Femur 32.2 mm 20w 1d 38% Kristin Humerus 32.2 mm 20w 6d 51% Kristin EFW 389 g 20w 6d 57% Hadlock EFW (lb) 0 lb EFW (oz) 14 oz EFW by: Hadlock (HC-AC-FL) Extended Cardroom Hand 6.1 mm CM 4.6 mm 32% Nicolaides Extremities / Bony Struc FL / HC 0.17 2% Hadlock Other Structures FHR 140 bpm Anatomy Cranium: normal Lateral ventricles: normal Choroid plexus: normal Midline falx: normal Cavum septi pellucidi: normal Cerebellum: normal Cisterna magna: normal Head / Neck Vermis: normal Neck: normal Nuchal fold: normal Lips: normal Profile: normal Nose: normal Face Maxilla: normal Mandible: normal Orbits: normal Lens: normal 4-chamber view: normal RVOT view: normal LVOT view: normal 3-vessel view: normal [id number] view: normal Heart / Thorax Situs: situs solitus (normal) Aortic arch view: normal SVC: normal IVC: normal Cardiac axis: normal Rt lung: normal Lt lung: normal Diaphragm: normal Cord insertion: normal Stomach: normal Kidneys: normal Bladder: normal Genitals: normal Abdomen Abdom. wall: normal Cervical spine: normal Thoracic spine: normal Lumbar spine: normal Sacral spine: normal Arms: normal Legs: normal Rt upper arm: normal Rt forearm: normal Rt hand: normal Rt fingers: normal Lt upper arm: normal Lt forearm: normal Lt hand: normal Lt fingers: normal Rt upper leg: normal Rt lower leg: normal Rt foot: normal Lt upper leg: normal Lt lower leg: normal Lt foot: normal sex: male Wants to know sex: yes Maternal Structures Uterus / Cervix Uterus: Visualized Cervix: Visualized Approach: Transabdominal Cervical length 40.1 mm Other: Patient declined transvaginal ultrasound for cervical length. Ovaries / Tubes / Adnexa Rt ovary: Not visualized Lt ovary: Not visualized Performed By: Steve Barraza RDMS, RVT Read By: Kyung Tom M.D. MATERNAL MEDICINE [facility] Radiology Study observation (narrative) [facility] Glucose Ql (U)Ordered By: Jacoby Garcia on 06-23-2024 Glucose (U) [Mass/Vol] 50 mg/dL High Normal [facility] Ketones Test strip Ql (U)Ord ered By: Inna Garcia on 06-23-2024 Ketones Ql (U) Negative Negative [facility] Nitrite Test strip Ql (U)Ord ered By: Inna Garcia on 06-23-2024 Nitrite Ql (U) Negative Negative [facility] OB Triage Physician Noteon 0 06-23-2024 OB Triage Physician Note [facility] Medical Records Department [address] [place] [address] OB Triage Physician Note 06/23/24 2303 MR#: [id number] Acct: [id number] Name: SEDA DE LEÓN Rep #: [id number] : 1995 28 From: Inna Garcia MD PCP: SHAYY Alejandro Status:DEP CLI Y Location: [facility] HPI - General General Date of Admission: 06/23/24 Chief Complaint: cramping and back pain HPI Narrative SEDA DE LEÓN, is a 28 F who presents with cramping and lower back pain. NO bleeding or loss of fluid Maternal Data Information Final BELEM: 11/05/24 Gestational age: 20+5 PFSH [facility] Medical History (Updated 06/26/24 @ 05:[address] Inna Garcia MD) Polyhydramnios Gestational diabetes Gestational diabetes Home Medications ???Medication ???Instructions ???Recorded ???Last Taken ???Type vit no.95-ferrous 1 ea PO DAILY 02/14/18 0 06/23/24 History fumarate 28 mg-folic acid 800 mcg tablet ( Multivitamins) aspirin 81 mg chewable tablet 1 tab PO DAILY 06/23/24 06/23/24 H istory (Aspirin Childrens) ferrous sulfate 325 mg (65 mg 325 mg PO BID 06/23/24 06/23/24 Hi story iron) tablet (Feosol) insulin NPH isoph U-100 human 100 16 unit subcut DAILY 06/23/2402/06 20:00 History unit/mL (3 mL) subcutaneous pen (Humulin N NPH U-100 Insulin KwikPen) insulin NPH isoph U-100 human 100 32 unit subcut DAILY gdm 06/23/24 06/23/24 History unit/mL (3 mL) subcutaneous pen (Humulin N NPH U-100 Insulin KwikPen) Allergy/AdvReac Type Severity Reaction Status Date / Time cefdinir Allergy Vomiting Verified 06/23/24 22:27 morphine Allergy Rash Verified 06/23/24 22:27 peanut Allergy Anaphylaxis Verified 06/23/24 22:27 Surgical History (Updated 07/10/23 @ 00:04 by Background Darenny) Gastric bypass status for obesity History of cholecystectomy Social History household members: children Smoking Status: Never smoker History 5 Elective abortions Hx Para 2 Spontaneous abortions Hx # Term Pregnancies Ectopic pregnancies Hx # Pregnancies Multiple births # of living children NST FHR Rate Baby A Baseline: 150 Uterine Activity:: quiet Assessment Plan (1) 20 weeks gestation of : (2) Back pain affecting in second trimester: PLAN: UA negative. No contractions PLAN: Plan Urine culture sent. 06/26/24 0557 Date Inna Garcia MD Cosigner Signature (if applicable): Date CC: Dr. Inna Garcia MD; SHAYY Alejandro Signed Normal [facility] Protein Test strip Ql (U)Ord ered By: Inna Garcia on 06-23-2024 Protein Ql (U) 15 mg/dl High Negative [facility] Urinalysis, Routine (Dipstic k)on 06-23-2024 BILIRUBIN URINE Negative Normal Negative [facility] Comment on above: Order Comment: Labor Performed By: #### B [id number], BTS, L100.0100 #### [facility] [address] [place], [address] Clarity (U) Sl. Cloudy Normal Clear [facility] Comment on above: Order Comment: Labor Performed By: #### B [id number], BTS, L100.0100 #### [facility] [address] [place], [address] Color (U) Yellow Normal Yellow [facility] Comment on above: Order Comment: Labor Performed By: #### B [id number], BTS, L100.0100 #### [facility] [address] [place], [address] GLUCOSE, UR 50 mg/dl Abnormal Normal [facility] Comment on above: Order Comment: Labor Performed By: #### B [id number], BTS, L100.0100 #### [facility] [address] [place], [address] KETONE UR Negative Normal Negative [facility] Comment on above: Order Comment: Labor Performed By: #### B [id number], BTS, L100.0100 #### [facility] [address] [place], [address] LEUK ESTERASE 25 /ul Abnormal Negative [facility] Comment on above: Order Comment: Labor Performed By: #### B [id number], BTS, L100.0100 #### [facility] [address] [place], [address] Nitrite Ql (U) Negative Normal Negative [facility] Comment on above: Order Comment: Labor Performed By: #### B [id number], BTS, L100.0100 #### [facility] [address] [place], [address] OCCULT BLOOD-UR Negative Normal Negative [facility] Comment on above: Order Comment: Labor Performed By: #### B [id number], BTS, L100.0100 #### [facility] [address] [place], [address] pH UR 6.0 Normal 5.0 - 8.0 [facility] Comment on above: Order Comment: Labor Performed By: #### B [id number], BTS, L100.0100 #### [facility] [address] [place], [address] PROT DIPSTX 15 mg/dl Abnormal Negative [facility] Comment on above: Order Comment: Labor Performed By: #### B [id number], BTS, L100.0100 #### [facility] [address] [place], [address] SP.GR. DIPSTX 1.020 Normal 1.002-1.030 [facility] Comment on above: Order Comment: Labor Performed By: #### B [id number], BTS, L100.0100 #### [facility] [address] [place], [address] UROBILI Normal Normal Normal [facility] Comment on above: Order Comment: Labor Performed By: #### B [id number], BTS, L100.0100 #### [facility] [address] [place], [address] Urine blood detectionOrdered By: Inna Garcia on 06-23-2024 Urine Occult Blood Negative Negative [facility] Urine clarityOrdered By: Vianey Garcia on 06-23-2024 Clarity (U) Sl. Cloudy Clear [facility] Urine color determinationOrd ered By: Inna Garcia on 06-23-2024 Color (U) Yellow Yellow [facility] Urine leukocyte esterase det ection by dipstickOrdered By: Inna Garcia on 06-23-2024 Leukocyte esterase Test strip Ql (U) 25 /ul High Negative [facility] Urine pHOrdered By: Inna Garcia on 06-23-2024 pH (U) 6.0 [pH] 5.0 - 8.0 [facility] Urine specific gravity measu rementOrdered By: Inna Shaye on 06-23-2024 Specific gravity (U) [Rel density] 1.020 1.002-1.030 [facility] Urobilinogen Ql (U)Ordered B y: Inna Shaye on 06-23-2024 Urine Urobilinogen Normal mg/dl Normal [facility] CNOVon 06-22-2024 CNOV Office Visit (ENWSTR ) ----- SEDA DE LEÓN ([id number]) 1995 F CHT Date Time Provider Department 06/22/24 3:00 PM EDDI SNEED ENWSTR During your visit today, we recorded the following information about you: Temperature Pulse Weight 97.7 degrees 111/minute 74.9 kg Eddi Sneed MD 06/25/2024 6:22 PM Signed [facility] Initial Clinic Visit Note Referred by: Inna Garcia MD (OBGYN) Chief complaint: Gestational Diabetes Mellitus My final recommendations will be communicated back to the requesting physician by way of shared medical record or letter via [place] mail. History of Present Illness: Seda De León is a 28 year old female patient presenting as a new patient to me for evaluation of Gestational diabetes mellitus She is A1, currently 20 weeks of gestation. Last delivery was in 06/2023. PMH: significant for gastric bypass in 2019, iron deficiency anemia for which she is undergoing infusions along with oral iron supplements. She had 2 pregnancies before gastric bypass -Initially diagnosed with GDM during second and third (so prior two pregnancies) - Blood sugars typically normalize within 1-2 days . . - Weight gain of 10 lbs this ; no significant weight changes in previous pregnancies. - Has symptoms of increased urination, thirst and fatigue which she believes is due to No known diabetic complications as expected from GDM Other comorbidities-- No -Family history of diabetes mellitus - No Personal history of pancreatitis-- No History of alcohol consumption--No Family history of thyroid cancer-- No Personal history of Urinary tract infections -- None is the recent past - Insulin therapy initiated one week ago with Lispro and Lantus due to blood sugars >200 mg/dL. . Diabetes Medications -Current regimen: insulin lantus 15 units BID, Humalog kwikpen 10 units TID - Insulin therapy initiated one week ago with Lispro and Lantus due to blood sugars >200 mg/dL. -Misses doses: None -Adverse medication effects: hypoglycemia as mentioned below -Rotating injection sites: yes -Previously Used DM Meds: She was on insulin during previous , treated by OBGYN . Blood sugars -Self monitoring of blood sugar via fingerstick: x daily - Uses a glucometer and sensor for blood sugar monitoring; noted discrepancies between sensor and glucometer readings, and hence stopped using sensor. No available BG readings today . Hypoglycemia -Hypoglycemic episodes: yes, since starting insulin -Frequency and timing of hypoglycemia: Experiencing frequent hypoglycemic episodes, with blood sugars dropping to 40s-50s mg/dL, particularly 2 hours postprandial and at night. -Hypoglycemia awareness: yes, diaphoresis and tremors. She also reports she is not sure with what meals she needs to take lispro as she eats multiple small meals a day . Lifestyle -Exercise: -Diet: - Adheres to a low-carb, high-protein diet, consuming 5 small meals daily since gastric bypass . ROS: SYSTEMIC: Denies fatigue, malaise, energy, Weight has been stable, heat/cold intolerance, polydipsia EYES: Denies blurring of vision, diplopia, pain/discomfort, excessive tearing, swelling of eye lids, bulging, redness, dryness, NECK: Denies goiter, lump, pain/discomfort, dysphagia, hoarseness, sore thorat RESPIRATORY: Denies dyspnea at rest/with exertion, orthopnea cough, pleuritic chest pain, snoring, apnea episodes CARDIOVASCULAR: Chest pain, palpitations, irregular heart beats GASTRO-INTESTINAL:Denies Nausea, vomiting, abdominal pain, hyperdefecation, rectal bleeding NEUROLOGICAL: Denies dizziness, lightheadedness, weakness, cramping, numbness/tingling of extremities MUSCULOSKELETAL: Denies joint pain, stiffness, swelling, cramping or weakness. GENITOURINARY: Denies polyuria, recurrent UTI/yeast infections SKIN: Denies dryness, brittle nails, hair loss, alopecia, excessive sweating, flushing, darkening of skin PSYCHIATRIC: Denies anxiety, depression, panic attacks, irritability, mood swings Past Medical History PAST MEDICAL HISTORY Diagnosis Date Anemia complicating , first trimester ([facility]) 03/24/2019 Anemia during in second trimester ([facility]) 05/19/2023 Asthma as a child Childhood asthma without complication ([facility]) 01/03/2018 01/03/2018 Not currently using Albuterol inhaler. Continue to monitor. No Hemabate. SW Concussion 2010 COVID-19 virus infection 03/26/202103/2021 Diet controlled gestational diabetes mellitus (GDM) in third trimester ([facility]) 08/16/2019 Gestational hypertension ([facility]) History of gestational hypertension 03/16/2019 Hx of gestational diabetes mellitus, not currently 05/16/2020 Insulin controlled gestational diabetes mellitus (GDM) in third trimester ([facility]) 05/18 (more content not included)... Normal [facility] CNPNon 06-22-2024 CNPN Telephone (ENWSTR) ----- SEDA DE LEÓN ([id number]) 1995 F CHT Date Time Provider Department 06/22/24 EDDI SNEED ENWSTR During your visit today, we recorded the following information about you: Inna Dowell MA 06/22/2024 3:48 PM Signed Prior Auth requested for Humulin kwikpen 100u/ml [place] [id number] YINKA Juárez Lakieta D 06/23/2024 2:58 PM Signed Cade Kimball Caseworker Intake Endocrinology AND Metabolism [place] Allergies As of Date: 06/22/2024 Noted Allergy Reaction CEFDINIR 04/11/2012 11 - Vomiting MORPHINE 05/15/2013 4 - Hives 12 - Shortness of Breath Comments: given medication at [facility] ER and reacted PEANUTS 12/18/2014 7 - Swelling Comments: redness Date Reviewed: 06/22/2024 Reviewed by: Inna Dowell MA - Fully Assessed 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 Use to check blood sugar at least 4 times daily. - blood sugar diagnostic (FREESTYLE PRECISION CARA STRIPS) test strip Use to check blood sugar once daily as needed. - Insulin Douglas, Disposable, (PEN NEEDLE) 32 gauge x 5/32 1 each as needed. - aspirin, enteric coated (ECOTRIN LOW STRENGTH) 81 mg EC tablet Take 1 tablet by mouth once daily. - ondansetron orally disintegrating (ZOFRAN ODT) 4 mg disintegrating tablet Take 1 tablet by mouth every 8 hours as needed. - ferrous sulfate 325 mg (65 mg iron) tablet Take 325 mg by mouth once daily. - vit/iron fum/folic ac (-FOLIC ACID ORAL) Take by mouth. 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] 06/25/2011 10/31/2019 Lumbago [M54.50] 07/07/2011 06/21/2018 Tendonitis, Achilles, left [M76.62] 01/10/2013 06/21/2018 Mononucleosis [B27.90] 05/17/2013 06/21/2018 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HCC) [Q07.01] 07/10/2013 Bleeding in early [O20.9] 12/30/2017 06/21/2018 Patient request for diagnostic testing [Z01.89] 12/30/2017 08/15/2019 Childhood asthma without complication [J45.909] 01/03/2018 10/31/2019 Rh negative state in antepartum period (HCC) [O*01/17/2018 Abnormal glucose measurement [R73.09] 05/31/2018 08/05/2018 Short interval between pregnancies affecting pr*06/15/2018 10/31/2019 Shortness of breath [R06.02] 06/15/2018 07/05/2018 Polyhydramnios in third trimester [O40.3XX0] 07/05/2018 03/31/2024 History of gestational hypertension [Z87.59] 03/16/2019 Morbid obesity (HCC) [E66.01] 03/22/2019 10/16/2022 Acute upper respiratory infection [J06.9] 06/29/2019 10/31/2019 Well adult exam [Z00.00] 05/16/2020 10/16/2022 Hx of gestational diabetes mellitus, not curren*05/16/2020 01/29/2023 Onychomycosis [B35.1] 11/29/2020 01/29/2023 COVID-19 virus infection [U07.1] 03/26/2021 01/29/2023 Obesity, Class III, BMI >= 40 [E66.01] 08/04/2022 10/16/2022 Morbid obesity with BMI of 40.0-44.9, adult (HC*08/20/2022 10/16/2022 History of gastric bypass [Z98.84] 01/01/2023 Pre-syncope [R55] 05/03/2023 27 weeks gestation of [Z3A.27] 05/03/2023 06/21/2023 Anemia [D64.9] 05/04/2023 Maternal iron deficiency anemia complicating pr*05/04/2023 03/31/2024 Impaired intestinal absorption [K90.9] 05/04/2023 Insulin controlled gestational diabetes mellitu*05/19/2023 Anemia during in second trimester [O9*05/19/2023 03/31/2024 Paratubal cyst [N83.8] 03/16/2024 Hx of gestational diabetes in prior , *03/31/2024 Encounter for supervision of normal i*03/31/2024 Anemia affecting , antepartum [O99.019]04/18/2024 Maternal iron deficiency anemia complicating pr*06/05/2024 Prematurity of fetus (HCC) [P07.30] 06/16/2024 19 weeks gestation of (HCC) [Z3A.19] 06/17/2024 Encounter Status:Closed by CADE BUSTAMANTE on 06/23/24 [facility] CNNURSEon 06-21-2024 CNNURSE Nurse Visit (ENDIMT) ----- SEDA DE LEÓN ([id number]) 1995 F CHT Date Time Provider Department 06/21/24 11:00 AM SAMANTHA ELIAS During your visit today, we recorded the following information about you: Samantha Elias RN 06/21/2024 11:23 AM Signed DIABETES CARE AND EDUCATION VISIT Location: [place] Type of visit: In person individual PATIENT'S MAIN CONCERN TODAY: Low blood sugars and make sure her sensor is connected Support person present for education today: none Cognitive ability: Alert and oriented Motivation to learn: Interested Learning barriers identified by educator: none Method of instruction: written, verbal, and demonstration DIABETES FINDINGS: 3rd GDM - given copy of the Survival Skills and GDM guide Monitoring: downloaded and linked to our Endo account Meal Planning: briefly reviewed Medications: Reviewed use of the insulin pens Problem Solving: Discussed hypoglycemia and hyperglycemia - discussed follow up with her physician for dosage adjustments if having any sugars less than 60 mg/dL in Physical Activity: benefits of physical activity for her body's use of insulin/sugar HANDOUTS: Healthy You: Survival Skills and Healthy You: Diabetes and LEARNING RESPONSE: Taking medications: Demonstrated understanding/competency today or at previous visit Monitoring glucose: Demonstrated understanding/competency today or at previous visit Acute complications: Demonstrated understanding/competency today or at previous visit POSSIBLE FUTURE TOPICS: 1. DIABETES CARE AND EDUCATION PLAN: Individual follow-up, GDM dietary appointment scheduled for RD Time Spent (Minutes): 25 minutes This visit note will be communicated to the healthcare provider via access to shared medical record. SIGNATURE: Samantha Elias RN PATIENT NAME: Seda De León DATE: June 21, 2024 TIME: 10:59 AM Inna Dowell MA 06/21/2024 11:23 AM Signed Referring Provider: ANGIE MORA [[id number]] Allergies As of Date: 06/21/2024 Noted Allergy Reaction CEFDINIR 04/11/2012 11 - Vomiting MORPHINE 05/15/2013 4 - Hives 12 - Shortness of Breath Comments: given medication at [facility] and reacted PEANUTS 12/18/2014 7 - Swelling Comments: redness Date Reviewed: 06/21/2024 Reviewed by: Eva Parker RN - Fully Assessed Primary Visit Diagnosis:Hx of gestational diabetes in prior , currently ([facility]) [O09.299, Z86.32] Prescriptions as of 06/21/2024 - insulin glargine (LANTUS SOLOSTAR U-100 INSULIN) 100 unit/mL (3 mL) Inject 15 Units subcutaneously in the morning and before bedtime - flash glucose sensor (FREESTYLE DELORIS 14 DAY SENSOR) kit Apply new sensor every 14 days to upper arm. Use to check blood sugar at least 4 times daily. - blood sugar diagnostic (FREESTYLE PRECISION CARA STRIPS) test strip Use to check blood sugar once daily as needed. - insulin lispro (HUMALOG KWIKPEN INSULIN) 100 unit/mL Inject 8 Units subcutaneously three times a day before meals. - Insulin Douglas, Disposable, (PEN NEEDLE) 32 gauge x 5/32 1 each as needed. - aspirin, enteric coated (ECOTRIN LOW STRENGTH) 81 mg EC tablet Take 1 tablet by mouth once daily. - ondansetron orally disintegrating (ZOFRAN ODT) 4 mg disintegrating tablet Take 1 tablet by mouth every 8 hours as needed. - ferrous sulfate 325 mg (65 mg iron) tablet Take 325 mg by mouth once daily. - vit/iron fum/folic ac (-FOLIC ACID ORAL) Take by mouth. Problem List As Of Date 06/21/2024 Noted Resolved Spondylolysis of lumbar region [M43.06] 06/25/2011 10/31/2019 Lumbago [M54.50] 07/07/2011 06/21/2018 Tendonitis, Achilles, left [M76.62] 01/10/2013 06/21/2018 Mononucleosis [B27.90] 05/17/2013 06/21/2018 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HCC) [Q07.01] 07/10/2013 Bleeding in early [O20.9] 12/30/2017 06/21/2018 Patient request for diagnostic testing [Z01.89] 12/30/2017 08/15/2019 Childhood asthma without complication [J45.909] 01/03/2018 10/31/2019 Rh negative state in antepartum period (HCC) [O*01/17/2018 Abnormal glucose measurement [R73.09] 05/31/2018 08/05/2018 Short interval between pregnancies affecting pr*06/15/2018 10/31/2019 Shortness of breath [R06.02] 06/15/2018 07/05/2018 Polyhydramnios in third trimester [O40.3XX0] 07/05/2018 03/31/2024 History of gestational hypertension [Z87.59] 03/16/2019 Morbid obesity (HCC) [E66.01] 03/22/2019 10/16/2022 Acute upper respiratory infection [J06.9] 06/29/2019 10/31/2019 Well adult exam [Z00.00] 05/16/2020 10/16/2022 Hx of gestational diabetes mellitus, not curren*05/16/2020 01/29/2023 Onychomycosis [B35.1] 11/29/2020 01/29/2023 COVID-19 virus infection [U07.1] 03/26/2021 01/29/2023 Obesity, Class III, BMI >= 40 [E66.01] 08/04/2022 10/16/2022 Morbid obesity with BMI of 40.0-44.9, adult (HC*08/20/2022 08/ (more content not included)... [facility] SEDA DE LEÓN ([id number]) 1995 F CHT Date Time Provider Department 06/21/24 IVETT LAGUERRE During your visit today, we recorded the following information about you: Seda Cardoza, RN 06/21/2024 9:37 AM Signed 20w3d DX gestational DM-sent to [facility][1] on Wednesday. Discharged home on Wednesday. Pt was started on Lispro AND Lantus insulin and dosage/ Has Deloris. Ever since leaving on Wednesday has been keeping a log of blood sugars. Fluctuating -180's then down to 40's , constant headaches since Wednesday Taking Tylenol-helps, but not taking completely away. Has not been monitoring blood pressures and denies having BP problems at this time. Pt states she is eating high protein meals. The low BG are waking her up at night. Currently in [facility] getting an iron infusion-appt at 930 (60 minute appt). Advised Pt that headaches can occur with fluctuations in blood sugars and that she should be seen to discuss with provider what dosage would be best for her. Please advise on when Pt should be seen. KEYONNA Hendricks Jennifer, MD 06/21/2024 10:01 AM Signed Seda Sherman, KEYONNA 06/21/2024 10:47 AM Signed Spoke to Endocrinology- Dr. Torres is able to see patient tomorrow at 3pm. Balaji-[employer]-able to see Pt today at 11am to assist with linking Pt's deloris to Alexa system. Pt is agreeable to seeing Endo Dietitian Wednesday virtually at 11am. At bedtime-eating cheese stick, cottage cheese, yogurt. Advised Pt to be cautious with the yogurt as it can have a lot of sugar in it. Pt states that its usually around 2am that she wakes up with her BG around 40/50's and she is hot/sweaty. Advised Pt to maybe set an alarm for 1am and eat protein-such as peanuts to help stabilize BG. Pt states she has been trying to stick to eating mainly meats and vegetables Pt states yesterday at grilled chicken wrap-used mini tortilla (0 carb wrap). Please file pended orders. PSS scheduling appts. KEYNONA Hendricks Jennifer, MD 06/21/2024 10:59 AM Signed Thank you. Orders signed Allergies As of Date: 06/21/2024 Noted Allergy Reaction CEFDINIR 04/11/2012 11 - Vomiting MORPHINE 05/15/2013 4 - Hives 12 - Shortness of Breath Comments: given medication at [facility] and reacted PEANUTS 12/18/2014 7 - Swelling Comments: redness Date Reviewed: 06/21/2024 Reviewed by: Eva Parker RN - Fully Assessed Primary Visit Diagnosis:Insulin controlled gestational diabetes mellitus (GDM) in second trimester ([facility]) [O24.414] Other Visit Diagnosis:20 weeks gestation of ([facility]) [Z3A.20] Order(s):CONSULT TO ENDOCRINOLOGY [9007] Order #: [id number]: 1 FUTURE ENDOCRINOLOGY DIETITIAN VISIT (MNT) [6807250] Order #: [id number]: 4 FUTURE Prescriptions as of 06/21/2024 - insulin glargine (LANTUS SOLOSTAR U-100 INSULIN) 100 unit/mL (3 mL) Inject 15 Units subcutaneously in the morning and before bedtime - flash glucose sensor (FREESTYLE DELORIS 14 DAY SENSOR) kit Apply new sensor every 14 days to upper arm. Use to check blood sugar at least 4 times daily. - blood sugar diagnostic (FREESTYLE PRECISION CARA STRIPS) test strip Use to check blood sugar once daily as needed. - insulin lispro (HUMALOG KWIKPEN INSULIN) 100 unit/mL Inject 8 Units subcutaneously three times a day before meals. - Insulin Douglas, Disposable, (PEN NEEDLE) 32 gauge x 5/32 1 each as needed. - aspirin, enteric coated (ECOTRIN LOW STRENGTH) 81 mg EC tablet Take 1 tablet by mouth once daily. - ondansetron orally disintegrating (ZOFRAN ODT) 4 mg disintegrating tablet Take 1 tablet by mouth every 8 hours as needed. - ferrous sulfate 325 mg (65 mg iron) tablet Take 325 mg by mouth once daily. - vit/iron fum/folic ac (-FOLIC ACID ORAL) Take by mouth. 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 Normal [facility] CNCOon 06-17-2024 CNCO Letter Text Normal [facility] CNDSon 06-17-2024 CNDS HNO ID: [id number] Author: CRISTY SWENSON DO Service: Obstetrics Author Type: Resident Type: Discharge Summary Filed: 06/17/2024 16:15 Note Text: ----- Attestation signed by Donna Worthington MD at 06/17/2024 7:52 PM (Updated) [facility] STAFF PHYSICIAN NOTE OF PERSONAL INVOLVEMENT IN CARE I have reviewed the progress note obtained and documented by the resident and I personally participated in the mcgowan components. I have discussed the case and management of the patient's care. The following comments revise or confirm relevant mcgowan components of the note. Admitted for glucose control. Started Lantus/lispro. I spent 30 min discharging the patient. Donna Worthington MD ----- DISCHARGE NOTE (Patient Admitted Less than 48 Hours) SERVICE DATE: 06/17/2024 SERVICE TIME: 4:14 PM ADMISSION DATE: 06/16/2024 DISCHARGE DISPOSITION: Home with Self Care Seda is a 28 year old who was directly admitted to the [facility] service from [place] on 06/16/24 at 19w5d for glycemic control in the setting of newly diagnosed GDMA. Upon arrival, patient's blood glucose was found to be 224. She was started on Lantus 15/15, log 10/10/10 and sliding scale insulin with meals. Her CBC and CMP on admission were unremarkable other than iron deficiency anemia with a hgb of 9.4. Her repeat hgb A1c is still in process. Her blood sugar stabilized inpatient, though she did experience post-prandial low of 61, so her log was changed to 8u. She was discharged home on hospital day 2 with a prescription for insulin and a CGM. She has office follow up scheduled on 06/21. She has venofer infusions schedules on 06/21 and 06/23. Recommendations for insulin controlled gestational diabetes: Recommend serial assessment of growth (28, 32, 36 weeks gestation and twice weekly surveillance (NSTs/BPPs on different days) beginning at 32 weeks. Recommend delivery at 39 wga or earlier if clinically indicated. DIET: Carb conscious ACTIVITY AFTER DISCHARGE: Resume pre-hospital activity FOLLOW UP CARE REQUIRED: growth q4 starting at 28w; NST/BPP weekly starting at 32w DISCHARGE MEDICATIONS: Medication List START taking these medications blood sugar diagnostic test strip Commonly known as: FREESTYLE PRECISION CARA STRIPS Use to check blood sugar once daily as needed. FREESTYLE DELORIS 14 DAY READER Generic drug: flash glucose scanning reader Use to check blood sugar at least 4 times daily. FREESTYLE DELORIS 14 DAY SENSOR Kit Generic drug: flash glucose sensor Apply new sensor every 14 days to upper arm. Use to check blood sugar at least 4 times daily. insulin lispro 100 unit/mL Commonly known as: HumaLOG KwikPen Insulin Inject 8 Units subcutaneously three times a day before meals. LANTUS SOLOSTAR U-100 INSULIN 100 unit/mL (3 mL) Generic drug: insulin glargine Inject 15 Units subcutaneously in the morning and before bedtime CONTINUE taking these medications aspirin, enteric coated 81 mg EC tablet Commonly known as: ECOTRIN LOW STRENGTH Take 1 tablet by mouth once daily. ferrous sulfate 325 mg (65 mg iron) tablet ondansetron orally disintegrating 4 mg disintegrating tablet Commonly known as: ZOFRAN ODT Take 1 tablet by mouth every 8 hours as needed. -FOLIC ACID ORAL Where to Get Your Medications These medications were sent to e- [facility]/pharmacy #[id number] [place] [address] [address] [facility] [phone] [place] [address] blood sugar diagnostic test strip FREESTYLE DELORIS 14 DAY READER FREESTYLE DELORIS 14 DAY SENSOR Kit insulin lispro 100 unit/mL LANTUS SOLOSTAR U-100 INSULIN 100 unit/mL (3 mL) FINAL DIAGNOSIS: GMDA2 Plan of care discussed with Provider, RN, Patient SIGNATURE: Cristy Swenson DO PATIENT NAME: Seda De León DATE: June 17, 2024 TIME: 4:14 PM [facility] PT EDon 06-17-2024 PT ED HNO ID: [id number] Author: MAGGIE SALGADO DTR Service: Nutrition Therapy Author Type: Document Management Specialist Type: Patient Education Filed: 06/19/2024 16:34 Note Text: NUTRITION THERAPY PATIENT EDUCATION SERVICE DATE: 06/19/2024 SERVICE TIME: 1633 TOPIC: Diet: Carbohydrate Controlled Exemption from nutrition education: Patient not ready to learn at this time due to patient was discharged prior to education Material(s) Provided to Patient: Education Materials Provided Nutrition Education [facility]: Gestational Diabetes Program and Portion Plate Placemat were sent via mail MNT Billing: $ Routine Care : 1-15 minutes SIGNATURE: Maggie Salgado DTR PATIENT NAME: Seda De León DATE: June 19, 2024 TIME: 4:33 PM PAGER: Normal [facility] CBC W Auto Differential pane l (Bld)on 06-16-2024 Basophils (Bld) [#/Vol] 0.03 10*3/uL Normal <0.11 [facility] Comment on above: Order Comment: Speci men Type: BLOOD SPECIMEN Ordering Facility: [facility] Address: [address] [place] [address] Performed By: #### 5 7021-8 #### [facility] CLIA [id number] [address] [place] [address] [place] Basophils/100 WBC (Bld) 0.3 % Normal [facility] Comment on above: Order Comment: Speci men Type: BLOOD SPECIMEN Ordering Facility: [facility] Address: [address] [place] [address] Performed By: #### 5 7021-8 #### [facility] CLIA [id number] [address] [place] Differential cell count method Nom (Bld) Auto Normal [facility] Comment on above: Order Comment: Speci men Type: BLOOD SPECIMEN Ordering Facility: [facility] Address: [address] [place] [address] Performed By: #### 5 7021-8 #### [facility] CLIA [id number] [address] [place] [address] [place] Eosinophils (Bld) [#/Vol] 0.15 10*3/uL Normal <0.46 [facility] Comment on above: Order Comment: Speci men Type: BLOOD SPECIMEN Ordering Facility: [facility] Address: [address] [place] [address] Performed By: #### 5 7021-8 #### [facility] CLIA [id number] [address] [place] Eosinophils/100 WBC (Bld) 1.3 % Normal [facility] Comment on above: Order Comment: Speci men Type: BLOOD SPECIMEN Ordering Facility: [facility] Address: [address] [place] [address] Performed By: #### 5 7021-8 #### [facility] CLIA [id number] [address] [place] Erythrocyte distribution width (RBC) [Ratio] 15.4 % High 11.5-15.0 [facility] Comment on above: Order Comment: Speci men Type: BLOOD SPECIMEN Ordering Facility: [facility] Address: [address] [place] [address] Performed By: #### 5 7021-8 #### [facility] CLIA [id number] [address] [place] Hematocrit (Bld) [Volume fraction] 31.0 % Low 36.0-46.0 [facility] Comment on above: Order Comment: Speci men Type: BLOOD SPECIMEN Ordering Facility: [facility] Address: [address] [place] [address] Performed By: #### 5 7021-8 #### [facility] CLIA [id number] [address] [place] Hemoglobin (Bld) [Mass/Vol] 9.4 g/dL Low 11.5-15.5 [facility] Comment on above: Order Comment: Speci men Type: BLOOD SPECIMEN Ordering Facility: [facility] Address: [address] [place] [address] Performed By: #### 5 7021-8 #### [facility] CLIA [id number] [address] [place] Immature granulocytes (Bld) [#/Vol] 0.04 10*3/uL Normal <0.10 [facility] Comment on above: Order Comment: Speci men Type: BLOOD SPECIMEN Ordering Facility: [facility] Address: [address] [place] [address] Performed By: #### 5 7021-8 #### [facility] CLIA [id number] [address] Immature granulocytes/100 WBC (Bld) 0.4 % Normal [facility] Comment on above: Order Comment: Speci men Type: BLOOD SPECIMEN Ordering Facility: [facility] Address: [address] [place] [address] Performed By: #### 5 7021-8 #### [facility] CLIA [id number] [address] Lymphocytes (Bld) [#/Vol] 2.31 10*3/uL Normal 1.00-4.00 [facility] Comment on above: Order Comment: Speci men Type: BLOOD SPECIMEN Ordering Facility: [facility] Address: [address] [place] [address] Performed By: #### 5 7021-8 #### [facility] CLIA [id number] [address] Lymphocytes/100 WBC (Bld) 20.6 % Normal [facility] Comment on above: Order Comment: Speci men Type: BLOOD SPECIMEN Ordering Facility: [facility] Address: [address] [place] [address] Performed By: #### 5 7021-8 #### [facility] CLIA [id number] [address] MCH (RBC) [Entitic mass] 23.7 pg Low 26.0-34.0 [facility] Comment on above: Order Comment: Speci men Type: BLOOD SPECIMEN Ordering Facility: [facility] Address: [address] [place] [address] Performed By: #### 5 7021-8 #### [facility] CLIA [id number] [address] [place] MCHC (RBC) [Mass/Vol] 30.3 g/dL Low 30.5-36.0 [facility] Comment on above: Order Comment: Speci men Type: BLOOD SPECIMEN Ordering Facility: [facility] Address: [address] [place] [address] Performed By: #### 5 7021-8 #### [facility] CLIA [id number] [address] [place] [address] [place] MCV (RBC) [Entitic vol] 78.3 fL Low 80.0-100.0 [facility] Comment on above: Order Comment: Speci men Type: BLOOD SPECIMEN Ordering Facility: [facility] Address: [address] [place] [address] Performed By: #### 5 7021-8 #### [facility] CLIA [id number] [address] [place] Monocytes (Bld) [#/Vol] 1.09 10*3/uL High <0.87 [facility] Comment on above: Order Comment: Speci men Type: BLOOD SPECIMEN Ordering Facility: [facility] Address: [address] [place] [address] Performed By: #### 5 7021-8 #### [facility] CLIA [id number] [address] [place] Monocytes/100 WBC (Bld) 9.7 % Normal [facility] Comment on above: Order Comment: Speci men Type: BLOOD SPECIMEN Ordering Facility: [facility] Address: [address] [place] [address] Performed By: #### 5 7021-8 #### [facility] CLIA [id number] [address] [place] Neutrophils (Bld) [#/Vol] 7.60 10*3/uL High 1.45-7.50 [facility] Comment on above: Order Comment: Speci men Type: BLOOD SPECIMEN Ordering Facility: [facility] Address: [address] [place] [address] Performed By: #### 5 7021-8 #### [facility] CLIA [id number] [address] [place] Neutrophils/100 WBC (Bld) 67.7 % Normal [facility] [facility] Comment on above: Order Comment: Speci men Type: BLOOD SPECIMEN Ordering Facility: [facility] Address: [address] [place] [address] Performed By: #### 5 7021-8 #### [facility] CLIA [id number] [address] [place] Nucleated RBC (Bld) [#/Vol] 10*3/uL Normal <0.01 [facility] Comment on above: Order Comment: Speci men Type: BLOOD SPECIMEN Ordering Facility: [facility] Address: [address] [place] [address] Performed By: #### 5 7021-8 #### [facility] CLIA [id number] [address] [place] Nucleated RBC/100 WBC (Bld) [Ratio] 0.0 /100 WBC Normal [facility] Comment on above: Order Comment: Speci men Type: BLOOD SPECIMEN Ordering Facility: [facility] Address: [address] [place] [address] Performed By: #### 5 7021-8 #### [facility] CLIA [id number] [address] [place] Platelet mean volume (Bld) [Entitic vol] 9.7 fL Normal 9.0-12.7 [facility] Comment on above: Order Comment: Speci men Type: BLOOD SPECIMEN Ordering Facility: [facility] Address: [address] [place] [address] Performed By: #### 5 7021-8 #### [facility] CLIA [id number] 1 [place] [address] [place] Platelets (Bld) [#/Vol] 385 10*3/uL Normal 150-400 [facility] Comment on above: Order Comment: Speci men Type: BLOOD SPECIMEN Ordering Facility: [facility] Address: [address] [place] [address] Performed By: #### 5 7021-8 #### [facility] CLIA [id number] [address] OF [facility] RBC (Bld) [#/Vol] 3.96 10*6/uL Normal 3.90-5.20 [facility] Comment on above: Order Comment: Speci men Type: BLOOD SPECIMEN Ordering Facility: [facility] Address: [address] [place] [address] Performed By: #### 5 7021-8 #### [facility] CLIA [id number] [address] WBC (Bld) [#/Vol] 11.22 10*3/uL High 3.70-11.00 [facility] Comment on above: Order Comment: Speci men Type: BLOOD SPECIMEN Ordering Facility: [facility] Address: [address] [place] [address] Performed By: #### 5 7021-8 #### [facility] CLIA [id number] [address] Comprehensive metabolic 2000 panelon 06-16-2024 Albumin [Mass/Vol] 3.5 g/dL Low 3.9-4.9 [facility] Comment on above: Order Comment: Speci men Type: BLOOD SPECIMEN Ordering Facility: [facility] Address: [address] [place] [address] Performed By: #### 2 4323-8 #### [facility] CLIA [id number] [address] ALP [Catalytic activity/Vol] 95 U/L Normal 34-123 [facility] Comment on above: Order Comment: Speci men Type: BLOOD SPECIMEN Ordering Facility: [facility] Address: [address] [place] [address] Performed By: #### 2 4323-8 #### [facility] CLIA [id number] [address] ALT With P-5'-P [Catalytic activity/Vol] 6 U/L Low 7-38 [facility] Comment on above: Order Comment: Speci men Type: BLOOD SPECIMEN Ordering Facility: [facility] Address: [address] [place] [address] Performed By: #### 2 4323-8 #### [facility] CLIA [id number] [address] [place] Anion gap [Moles/Vol] 10 mmol/L Normal 8-15 [facility] Comment on above: Order Comment: Speci men Type: BLOOD SPECIMEN Ordering Facility: [facility] Address: [address] [place] [address] Performed By: #### 2 4323-8 #### [facility] CLIA [id number] [address] [place] AST With P-5'-P [Catalytic activity/Vol] 15 U/L Normal 13-35 [facility] Comment on above: Order Comment: Speci men Type: BLOOD SPECIMEN Ordering Facility: [facility] Address: [address] [place] [address] Performed By: #### 2 4323-8 #### [facility] CLIA [id number] [address] [place] Bilirubin [Mass/Vol] mg/dL Low 0.2-1.3 [facility] Comment on above: Order Comment: Speci men Type: BLOOD SPECIMEN Ordering Facility: [facility] Address: [address] [place] [address] Performed By: #### 2 4323-8 #### [facility] CLIA [id number] [address] [place] Calcium [Mass/Vol] 8.2 mg/dL Low 8.5-10.2 [facility] Comment on above: Order Comment: Speci men Type: BLOOD SPECIMEN Ordering Facility: [facility] Address: [address] [place] [address] Performed By: #### 2 4323-8 #### [facility] CLIA [id number] [address] [place] Chloride [Moles/Vol] 104 mmol/L Normal 98-107 [facility] Comment on above: Order Comment: Speci men Type: BLOOD SPECIMEN Ordering Facility: [facility] Address: [address] [place] [address] Performed By: #### 2 4323-8 #### [employer] [facility] CLIA [id number] [address] [place] CO2 [Moles/Vol] 22 mmol/L Normal 22-30 [facility] Comment on above: Order Comment: Speci men Type: BLOOD SPECIMEN Ordering Facility: [facility] Address: [address] [place] [address] Performed By: #### 2 4323-8 #### [facility] CLIA [id number] [address] STATES OF [facility] Creatinine [Mass/Vol] 0.45 mg/dL Low 0.58-0.96 [facility] Comment on above: Order Comment: Speci men Type: BLOOD SPECIMEN Ordering Facility: [facility] Address: [address] [place] [address] Performed By: #### 2 4323-8 #### [facility] CLIA [id number] [address] Creatinine and Glomerular filtration rate.predicted panel (S/P/Bld) 135 mL/min/1.73m??? Normal >=60 [facility] Comment on above: Order Comment: Speci men Type: BLOOD SPECIMEN Ordering Facility: [facility] Address: [address] [place] [address] Result Comment: Rekha mated Glomerular Filtration Rate (eGFR) is calculated using the 2020 CKD-EPI creatinine equation. This equation utilizes serum creatinine, sex, and age as parameters. The creatinine assay has traceable calibration to isotope dilution-mass spectrometry. Refer to KDIGO guidelines for clinical interpretation. In patients with unstable renal function, e.g. those with acute kidney injury, the eGFR may not accurately reflect actual GFR. Performed By: #### 2 4323-8 #### [employer] [facility] CLIA [id number] [address] OF [facility] Glucose [Mass/Vol] 56 mg/dL Low 74-99 [facility] Comment on above: Order Comment: Speci men Type: BLOOD SPECIMEN Ordering Facility: [facility] Address: [address] [place], [place] [id number] Result Comment: The [place] Diabetes Association (ADA) provides guidance for cutoff values for fasting glucose and random glucose. The ADA defines fasting as no caloric intake for at least 8 hours. Fasting plasma glucose results between 100 to 125 mg/dL indicate increased risk for diabetes (prediabetes). Fasting plasma glucose results greater than or equal to 126 mg/dL meet the criteria for diagnosis of diabetes. In the absence of unequivocal hyperglycemia, results should be confirmed by repeat testing. In a patient with classic symptoms of hyperglycemia or hyperglycemic crisis, random plasma glucose results greater than or equal to 200 mg/dL meet the criteria for diagnosis of diabetes. Reference: Standards of Medical Care in Diabetes 2016, [place] Diabetes Association. Diabetes Care. 2016.39(Suppl 1). Performed By: #### 2 4323-8 #### [facility] CLIA [id number] 1 [place] [address] [place] Potassium [Moles/Vol] 4.0 mmol/L Normal 3.7-5.1 [facility] Comment on above: Order Comment: Shantel espinal Type: BLOOD SPECIMEN Ordering Facility: [facility] Address: [address] [place] [address] Performed By: #### 2 4323-8 #### [facility] CLIA [id number] 1 [place] [address] [place] Protein [Mass/Vol] 6.7 g/dL Normal 6.3-8.0 [facility] Comment on above: Order Comment: Shantel men Type: BLOOD SPECIMEN Ordering Facility: [facility] Address: [address] [place] [id number] Performed By: #### 2 4323-8 #### [facility] CLIA [id number] 1 [place] [address] [place] Sodium [Moles/Vol] 136 mmol/L Normal 136-144 [facility] Comment on above: Order Comment: Shantel espinal Type: BLOOD SPECIMEN Ordering Facility: [facility] Address: [address] [place] [address] Performed By: #### 2 4323-8 #### [facility] CLIA [id number] [address] STATES [facility] Urea nitrogen [Mass/Vol] 10 mg/dL Normal 7-21 [facility] Comment on above: Order Comment: Shantel espinal Type: BLOOD SPECIMEN Ordering Facility: [facility] Address: [facility] [place] [address] Performed By: #### 2 4323-8 #### [facility] CLIA [id number] 1 [place] [id number] [facility] HISTORY PHYSICALon HISTORY PHYSICAL HNO ID: [id number] Author: JOCELYNN MACKENZIE MD Service: Obstetrics Author Type: Resident Type: H&P Filed: 06/16/2024 16:28 Note Text: ----- Attestation signed by Jocelynn Mackenzie MD at 06/16/2024 4:28 PM Attending Attestation I evaluated personally participated in the mcgowan components. I agree with the resident's findings and plan as documented and have discussed the case and management of the patient's care with the resident. I have reviewed and edited the above note to reflect our collaborative assessment and recommendations. 28yo at 19w5d with GDM admitted for glycemic control. She has a history of GDM in prior requiring insulin. Agree with plan to begin Lantus 15/15 and aspart 10 with meals. Jocelynn Mackenzie MD June 16, 2024 4:26 PM ----- OBSTETRICS HISTORY AND PHYSICAL SERVICE DATE: June 16, 2024 SERVICE TIME: 3:00 PM Subjective Patient's stated reason for arrival: CHIEF COMPLAINT: glycemic control HISTORY OF THE PRESENT ILLNESS: The patient is a 28 year old female, , who is at 19w5d with an BELEM of 11/05/2024, by Last Menstrual Period dating method. Patient is here as a direct admit from [place] for glycemic control in the setting of GDMA. Patient with hx of GDMA2 in previous that was poorly controlled. Had an early hgba1c that was 5.6 in this . Fasting glucoses since diagnosis have been 110-160 and 1 hour post-prandials have been 170-300. She is asymptomatic. Denies DIEGO, vision changes, CP, SOB, RUQ pain. Good movement. No vaginal bleeding, loss of fluid or contractions. HISTORY REVIEW PAST MEDICAL HISTORY Diagnosis Date Anemia complicating , first trimester 03/24/2019 Anemia during in second trimester 05/19/2023 Asthma as a child Childhood asthma without complication 01/03/2018 01/03/2018 Not currently using Albuterol inhaler. Continue to monitor. No Hemabate. SW Concussion 2009 COVID-19 virus infection 03/26/202103/2021 Diet controlled gestational diabetes mellitus (GDM) in third trimester 08/16/2019 Gestational hypertension History of gestational hypertension 03/16/2019 Hx of gestational diabetes mellitus, not currently 05/16/2020 Insulin controlled gestational diabetes mellitus (GDM) in third trimester 05/19/2023 Maternal iron deficiency anemia complicating , third trimester 05/04/2023 Mononucleosis NEGATIVE MEDICAL HISTORY normal color vision PMH - PAST MEDICAL HISTORY OF slip disc Polyhydramnios in third trimester 07/05/2018 06/03/23 Mild noted on 32 week growth. Continue to plan for testing. Cristy Matthew, RAYMOND.[employer] July 05, 2018 D/w her risks. NSTs weekly. Kick counts. PTL precuations. F/u weekly. Angie Mora MD Spondylolysis of lumbar region 06/25/2011 PAST SURGICAL HISTORY Procedure Laterality Date GASTRIC BYPASS HX 08/20/2022 LAPAROSCOPY SURG CHOLECYSTECTOMY 08/30/2018 Cholecystectomy, lap FAMILY HISTORY Problem Relation Age of Onset No Known Problems Mother No Known Problems Father No Known Problems Sister No Known Problems Sister No Known Problems Maternal Grandmother No Known Problems Maternal Grandfather Hypertension Paternal Grandmother Heart Paternal Grandfather other (Bladder reflux) Daughter Seizures Daughter Heart Paternal great-grandfather Anesthesia Problems No Family History Social History Tobacco Use Smoking status: Never Smokeless tobacco: Never Vaping Use Vaping status: Never Used Substance Use Topics Alcohol use: No Drug use: No Obstetric History T2 L3 SAB1 IAB0 Ectopic0 Multiple0 Live Births3 Name of Baby 1: Ashley Date: 08/01/18 GA: 37w6d Type: Vaginal, Spontaneous Apgar1: 8 Apgar5: 9 Living: Living Name of Baby 2: Brent Date: 10/17/19 GA: 37w0d Type: Vaginal, Spontaneous Apgar1: 9 Apgar5: 9 Living: Living Name of Baby 3: Not recorded Date: 07/04/23 GA: 36w5d Type: Vaginal, Spontaneous Apgar1: 8 Apgar5: 9 Living: Living Name of Baby 4: Not recorded Date: 02/02/24 GA: Not recorded Type: Not recorded Apgar1: Not recorded Apgar5: Not recorded Living: Not recorded Name of Baby 5: Not recorded Date: Not recorded GA: Not recorded Type: Not recorded Apgar1: Not recorded Apgar5: Not recorded Living: Not recorded ALLERGIES Allergen Reactions Cefdinir Vomiting Morphine Hives, Shortness of Breath given medication at [facility] ER and reacted Peanuts Swelling redness Prior to Admission Medications Prescriptions Last Dose Informant Patient Reported? Taking? aspirin, enteric coated (ECOTRIN LOW STRENGTH) 81 mg EC tablet No Yes Sig: Take 1 tablet by mouth once daily. ferrous sulfate 325 mg (65 mg iron) tablet Yes Yes Sig: Take 325 mg by mouth once daily. ondansetron orally disintegr (more content not included)... Normal [facility] HbA1c (Bld)on 06-16-2024 Average glucose Estimated from glycated hemoglobin (Bld) [Mass/Vol] 105 mg/dL Normal [facility] Comment on above: Order Comment: Speci men Type: BLOOD SPECIMEN Ordering Facility: [facility] Address: [address] [place] [address] Result Comment: eAG: (Estimated average glucose) is a calculated value from HgbA1c and is physician relations representative of the average blood glucose level in the last 2-3 month period. Performed By: #### 5 5454-3 #### [facility] CLIA [id number] [address] [place] [address] [place] HbA1c (Bld) [Mass fraction] 5.3 % Normal 4.3-5.6 [facility] Comment on above: Order Comment: Speci men Type: BLOOD SPECIMEN Ordering Facility: [facility] Address: [address] [place] [address] Result Comment: [place] Diabetes Association guidelines indicate that patients with HgbA1c in the range 5.7-6.4% are at increased risk for development of diabetes, and intervention by lifestyle modification may be beneficial. HgbA1c greater or equal to 6.5% is considered diagnostic of diabetes. Performed By: #### 5 5454-3 #### [facility] CLIA [id number] [address] [place] [address] [place] TYPE + SCREEN PRENATALon ABO A Normal [facility] Comment on above: Order Comment: Speci men Type: BLOOD SPECIMEN Ordering Facility: [facility] Address: [address] [place] [address] Performed By: #### T SPN #### [facility] CLIA [id number] [address] [place] Rh Nom (Bld) Negative Normal [facility] Comment on above: Order Comment: Speci men Type: BLOOD SPECIMEN Ordering Facility: [facility] Address: [address] [place] [address] Performed By: #### T SPN #### [facility] CLIA [id number] [address] [place] TYPE AND SCREEN EXPIRATION 06/19/2024 23:59 Normal [facility] Comment on above: Order Comment: Speci men Type: BLOOD SPECIMEN Ordering Facility: [facility] Address: [address] [place] [address] Performed By: #### T SPN #### [facility] CLIA [id number] [address] STATES OF [facility] FLORECITAIzzy 06-08-2024 CNPN Telephone (INTMMN) ----- GENETSEDA Chandana ([id number]) 1995 F CHT Date Time Provider Department 06/08/24 LUH QUINN INTMMN During your visit today, we recorded the following information about you: Luh Quinn, KEYONNA 06/08/2024 11:26 AM Signed Venofer orders signed. SHAYY approved. Venice León 06/08/2024 11:53 AM Signed LVM for pt to call back and schedule IRON SUCROSE 200 X3 OVER 2 WEEKS. Amy Torres 06/08/2024 12:14 PM Signed Scheduled with patient Start email sent Allergies As of Date: 06/08/2024 Noted Allergy Reaction CEFDINIR 04/11/2012 11 - Vomiting MORPHINE 05/15/2013 4 - Hives 12 - Shortness of Breath Comments: given medication at [facility] and reacted PEANUTS 12/18/2014 7 - Swelling Comments: redness Date Reviewed: 06/05/2024 Reviewed by: Luh Quinn, RN - Fully Assessed Reason for Visit: Hematology [Other] Prescriptions as of 06/08/2024 - aspirin, enteric coated (ECOTRIN LOW STRENGTH) 81 mg EC tablet Take 1 tablet by mouth once daily. - ondansetron orally disintegrating (ZOFRAN ODT) 4 mg disintegrating tablet Take 1 tablet by mouth every 8 hours as needed. - ferrous sulfate 325 mg (65 mg iron) tablet Take 325 mg by mouth once daily. - vit/iron fum/folic ac (-FOLIC ACID ORAL) Take by mouth. 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] 07/10/2013 Bleeding in early [O20.9] 12/30/2017 06/21/2018 Patient request for diagnostic testing [Z01.89] 12/30/2017 08/15/2019 Childhood asthma without complication [J45.909] 01/03/2018 10/31/2019 Rh negative state in antepartum period [O26.899*01/17/2018 Abnormal glucose measurement [R73.09] 05/31/2018 08/05/2018 Short interval between pregnancies affecting pr*06/15/2018 10/31/2019 Shortness of breath [R06.02] 06/15/2018 07/05/2018 Polyhydramnios in third trimester [O40.3XX0] 07/05/2018 03/31/2024 History of gestational hypertension [Z87.59] 03/16/2019 Morbid obesity (HCC) [E66.01] 03/22/2019 10/16/2022 Acute upper respiratory infection [J06.9] 06/29/2019 10/31/2019 Well adult exam [Z00.00] 05/16/2020 10/16/2022 Hx of gestational diabetes mellitus, not curren*05/16/2020 01/29/2023 Onychomycosis [B35.1] 11/29/2020 01/29/2023 COVID-19 virus infection [U07.1] 03/26/2021 01/29/2023 Obesity, Class III, BMI >= 40 [E66.01] 08/04/2022 10/16/2022 Morbid obesity with BMI of 40.0-44.9, adult (HC*08/20/2022 10/16/2022 History of gastric bypass [Z98.84] 01/01/2023 Pre-syncope [R55] 05/03/2023 27 weeks gestation of [Z3A.27] 05/03/2023 06/21/2023 Anemia [D64.9] 05/04/2023 Maternal iron deficiency anemia complicating pr*05/04/2023 03/31/2024 Impaired intestinal absorption [K90.9] 05/04/2023 Diet controlled gestational diabetes mellitus (*05/19/2023 Anemia during in second trimester [O9*05/19/2023 03/31/2024 Paratubal cyst [N83.8] 03/16/2024 Hx of gestational diabetes in prior , *03/31/2024 Encounter for supervision of normal i*03/31/2024 Anemia affecting , antepartum [O99.019]04/18/2024 Maternal iron deficiency anemia complicating pr*06/05/2024 Encounter Status:Closed by LHU MEYERS on 06/08/24 Normal [facility] CBC panel Auto (Bld)on 05-30 Erythrocyte distribution width (RBC) [Ratio] 15.9 % High 11.5-15.0 [facility] Comment on above: Order Comment: Shantel espinal Type: BLOOD SPECIMENOrdering Facility: [facility] Address: [address] [place] [address] Performed By: #### 5 8410-2 ####[facility] [id number] [place] [address] [place] Hematocrit (Bld) [Volume fraction] 33.5 % Low 36.0-46.0 [facility] Comment on above: Order Comment: Shantel espinal Type: BLOOD SPECIMENOrdering Facility: [facility] Address: [address] [place] [address] Performed By: #### 5 8410-2 ####[facility] [id number] [place] [id number] [place] Hemoglobin (Bld) [Mass/Vol] 9.9 g/dL Low 11.5-15.5 [facility] Comment on above: Order Comment: Shantel espinal Type: BLOOD SPECIMENOrdering Facility: [facility] Address: [address] [place] [address] Performed By: #### 5 8410-2 ####[facility] [id number] [place] [address] [place] MCH (RBC) [Entitic mass] 23.3 pg Low 26.0-34.0 [facility] Comment on above: Order Comment: Speci men Type: BLOOD SPECIMENOrdering Facility: [facility] Address: [address] [place] [address] Performed By: #### 5 8410-2 ####[facility] [id number] [place] [address] [place] MCHC (RBC) [Mass/Vol] 29.6 g/dL Low 30.5-36.0 [facility] Comment on above: Order Comment: Speci men Type: BLOOD SPECIMENOrdering Facility: [facility] Address: [address] [place] [address] Performed By: #### 5 8410-2 ####[facility] [id number] [place] [address] [place] MCV (RBC) [Entitic vol] 79.0 fL Low 80.0-100.0 [facility] Comment on above: Order Comment: Speci men Type: BLOOD SPECIMENOrdering Facility: [facility] Address: [address] [place] [address] Performed By: #### 5 8410-2 ####[facility] [id number] [place] [address] [place] Nucleated RBC (Bld) [#/Vol] 10*3/uL Normal <0.01 [facility] Comment on above: Order Comment: Speci men Type: BLOOD SPECIMENOrdering Facility: [facility] Address: [address] [place] [address] Performed By: #### 5 8410-2 ####[facility] [id number] [place] [address] [place] Platelet mean volume (Bld) [Entitic vol] 10.9 fL Normal 9.0-12.7 [facility] Comment on above: Order Comment: Speci men Type: BLOOD SPECIMENOrdering Facility: [facility] Address: [address] [place] [address] Performed By: #### 5 8410-2 ####[facility] [id number] [facility] [id number], [facility]95 [place] Platelets (Bld) [#/Vol] 474 10*3/uL High 150-400 [facility] Comment on above: Order Comment: Speci men Type: BLOOD SPECIMENOrdering Facility: [facility] Address: [address] [place] [address] Performed By: #### 5 8410-2 ####[facility] [id number] [facility] [address], [place] [address] [place] RBC (Bld) [#/Vol] 4.24 10*6/uL Normal 3.90-5.20 [facility] Comment on above: Order Comment: Speci men Type: BLOOD SPECIMENOrdering Facility: [facility] Address: [address] [place] [address] Performed By: #### 5 8410-2 ####[facility] LABCLIA [id number] [address], [place] [address] [place] WBC (Bld) [#/Vol] 9.94 10*3/uL Normal 3.70-11.00 [facility] Comment on above: Order Comment: Speci men Type: BLOOD SPECIMENOrdering Facility: [facility] Address: [address] [place] [address] Performed By: #### 5 8410-2 ####[facility] LABCLIA [id number] [address], [facility] [place] Ferritin SerPl-mCncon 2024 Ferritin [Mass/Vol] 13.8 ng/mL Low 14.7-205.1 [facility] Comment on above: Order Comment: Speci men Type: BLOOD SPECIMENOrdering Facility: [facility] Address: [address] [place] [address] Performed By: #### 5 0190-8, 2275-4 ####[facility] LABCLIA [id number] [place] [address] [place] Iron and Iron binding capaci ty panelon 05-30-2024 Iron [Mass/Vol] 20 ug/dL Low 41-186 [facility] Comment on above: Order Comment: Speci men Type: BLOOD SPECIMENOrdering Facility: [facility] Address: [address] [place] [address] Performed By: #### 5 0190-8, 2275-4 ####[facility] LABCLIA [id number] [address] [place] Iron binding capacity [Mass/Vol] >520 High 232-386 [facility] Comment on above: Order Comment: Speci men Type: BLOOD SPECIMENOrdering Facility: [facility] Address: [address] [place] [address] Performed By: #### 5 0190-8, 2275-06 ####[facility] LABIA [id number] [address] [place] Iron/TIBC [Molar ratio] <3.8 Low 15.0-57.0 [facility] Comment on above: Order Comment: Speci men Type: BLOOD SPECIMENOrdering Facility: [facility] Address: [address] [place] [address] Performed By: #### 5 0190-8, 4 ####[facility] LABCLIA [id number] [place] [id number] [place] CNCOon 05-02-2024 CNCO Letter Text Normal [facility] Examination level ultrasound on 04-26-2024 Indication First trimester anatomic survey Impression REMOTE READ The patient is referred for a first trimester anatomy scan including nuchal translucency measurement as clinically indicated. - Single, live, intrauterine . - [place] rump length measurement is consistent with the established gestational age. - A qualitative screen of the nuchal translucency and other anatomic structures was unremarkable on a complete first trimester anatomic assessment. - Simple ovarian cyst as noted below - Not all structural malformations can be detected by ultrasound examination. Maternal Structures: Right Ovary: Size 17 mm x 27 mm x 20 mm Left Ovary: Size 85 mm x 71 mm x 56 mm Recommendations Return for anatomy ultrasound Maternal Assessment Height 160 cm Height (ft) 5 ft Height (in) 3 in Physical Exam Initial weight (lb) 147 lb Initial BMI 26.05 kg/m Maternal assessment other: 5 Para 3 Method Transabdominal ultrasound examination Cash . Number of fetuses: 1 Dating LMP on: 01/30/2024 Cycle: LMP date not known GA by LMP 12 w + 3 d BELEM by LMP: 11/05/2024 GA by prior assessment 12 w + 3 d BELEM by prior assessment: 11/05/2024 Ultrasound examination on: 04/26/2024 GA by U/S based upon: CRL GA by U/S 13 w + 0 d BELEM by U/S: 11/01/2024 Assigned: based on stated BELEM, selected on 04/26/2024 Assigned GA 12 w + 3 d Assigned BELEM: 11/05/2024 General Evaluation Cardiac activity present Placenta: posterior Cord vessels: 3 vessel cord Amniotic fluid: normal amount Biometry Standard FHR 167 bpm CRL 67.0 mm 13w 0d 81% [place] First Trimester Anatomy Calvarium: normal Falx cerebri: normal Choroid plexus: normal Profile: normal Nasal bone: normal Retronasal triangle: normal Maxilla: normal Mandible: normal Nuchal translucency: Unremarkable Situs: normal Cardiac position: normal Cardiac axis: normal 4-chamber view: normal 4-chamber view with color: normal 5-glgqci-hcmecvl view: normal Abdominal cord insertion: normal Stomach: normal Kidneys: normal Bladder: normal Color doppler of perivesical umbilical arteries: normal Vertebral alignment: normal Arms: normal Hands: normal Legs: normal Feet: normal Maternal Structures Uterus / Cervix Uterus: Visualized Uterus length 152 mm Uterus width 117 mm Uterus height 90 mm Uterus Vol 835.8 cm Ovaries / Tubes / Adnexa Rt ovary: Visualized Rt ovary D1 17 mm Rt ovary D2 27 mm Rt ovary D3 20 mm Rt ovary Vol 4.8 cm Lt ovary: Visualized Lt ovary D1 85 mm Lt ovary D2 71 mm Lt ovary D3 56 mm Lt ovary Vol 177.0 cm Lt ovarian cyst D1 70 mm Lt ovarian cyst D2 55 mm Lt ovarian cyst D3 65 mm Lt ovarian cyst mean 63.3 mm Lt ovarian cyst vol 131.031 cm Lt ovarian cyst findings: Unilocular simple cyst Performed By: Steve Barraza RDMS, RVT Read By: Kyung Tom M.D. MATERNAL MEDICINE [facility] Radiology Study observation (narrative) [facility] William 04-18-2024 CNPN Telephone (OBGYWM) ----- SEDA DE LEÓN ([id number]) 1995 F CHT Date Time Provider Department 04/18/24 KAYY LONGO OBGYWM During your visit today, we recorded the following information about you: Allergies As of Date: 04/18/2024 Noted Allergy Reaction CEFDINIR 04/11/2012 11 - Vomiting MORPHINE 05/15/2013 4 - Hives 12 - Shortness of Breath Comments: given medication at [facility] and reacted PEANUTS 12/18/2014 7 - Swelling Comments: redness Date Reviewed: 03/31/2024 Reviewed by: Patricia Valentine LPN - Fully Assessed Reason for Visit: Orders [681] Primary Visit Diagnosis:Anemia affecting in first trimester [O99.011] Order(s):IRON AND TIBC [SQIRON] Order #: [id number] FUTURE FERRITIN [SQFERR] Order #: [id number] FUTURE Prescriptions as of 04/18/2024 - aspirin, enteric coated (ECOTRIN LOW STRENGTH) 81 mg EC tablet Take 1 tablet by mouth once daily. - ondansetron orally disintegrating (ZOFRAN ODT) 4 mg disintegrating tablet Take 1 tablet by mouth every 8 hours as needed. - ferrous sulfate 325 mg (65 mg iron) tablet Take 325 mg by mouth once daily. - vit/iron fum/folic ac (-FOLIC ACID ORAL) Take by mouth. 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] 07/10/2013 Bleeding in early [O20.9] 12/30/2017 06/21/2018 Patient request for diagnostic testing [Z01.89] 12/30/2017 08/15/2019 Childhood asthma without complication [J45.909] 01/03/2018 10/31/2019 Rh negative state in antepartum period [O26.899*01/17/2018 Abnormal glucose measurement [R73.09] 05/31/2018 08/05/2018 Short interval between pregnancies affecting pr*06/15/2018 10/31/2019 Shortness of breath [R06.02] 06/15/2018 07/05/2018 Polyhydramnios in third trimester [O40.3XX0] 07/05/2018 03/31/2024 History of gestational hypertension [Z87.59] 03/16/2019 Morbid obesity (HCC) [E66.01] 03/22/2019 10/16/2022 Acute upper respiratory infection [J06.9] 06/29/2019 10/31/2019 Well adult exam [Z00.00] 05/16/2020 10/16/2022 Hx of gestational diabetes mellitus, not curren*05/16/2020 01/29/2023 Onychomycosis [B35.1] 11/29/2020 01/29/2023 COVID-19 virus infection [U07.1] 03/26/2021 01/29/2023 Obesity, Class III, BMI >= 40 [E66.01] 08/04/2022 10/16/2022 Morbid obesity with BMI of 40.0-44.9, adult (HC*08/20/2022 10/16/2022 History of gastric bypass [Z98.84] 01/01/2023 Pre-syncope [R55] 05/03/2023 27 weeks gestation of [Z3A.27] 05/03/2023 06/21/2023 Anemia [D64.9] 05/04/2023 Maternal iron deficiency anemia complicating pr*05/04/2023 03/31/2024 Impaired intestinal absorption [K90.9] 05/04/2023 Insulin controlled gestational diabetes mellitu*05/19/2023 03/31/2024 Anemia during in second trimester [O9*05/19/2023 03/31/2024 Paratubal cyst [N83.8] 03/16/2024 Hx of gestational diabetes in prior , *03/31/2024 Encounter for supervision of normal i*03/31/2024 Encounter Status:Closed by KAYY LONGO on 04/18/24 Normal [facility] CBC W Auto Differential pane l (Bld)on 04-14-2024 Basophils (Bld) [#/Vol] 0.05 10*3/uL Normal <0.11 [facility] Comment on above: Order Comment: Speci men Type: BLOOD SPECIMENOrdering Facility: [facility] Address: [address] [place] [address] Performed By: #### 5 7021-8 ####[facility] [id number] [place] [address] [place] Basophils/100 WBC (Bld) 0.4 % Normal [facility] Comment on above: Order Comment: Speci men Type: BLOOD SPECIMENOrdering Facility: [facility] Address: [address] [place] [address] Performed By: #### 5 7021-8 ####[facility] [id number] [place] [address] [place] Differential cell count method Nom (Bld) Auto Normal [facility] Comment on above: Order Comment: Speci men Type: BLOOD SPECIMENOrdering Facility: [facility] Address: [address] [place] [address] Performed By: #### 5 7021-8 ####[facility]YWINLIA [id number] [place] [address] [place] Eosinophils (Bld) [#/Vol] 0.13 10*3/uL Normal <0.46 [facility] Comment on above: Order Comment: Speci men Type: BLOOD SPECIMENOrdering Facility: [facility] Address: [address] [place] [address] Performed By: #### 5 7021-8 ####[facility]ENTERLIA [id number] [place] [address] [place] Eosinophils/100 WBC (Bld) 1.1 % Normal [facility] Comment on above: Order Comment: Speci men Type: BLOOD SPECIMENOrdering Facility: [facility] Address: [address] [place] [address] Performed By: #### 5 7021-8 ####[facility] [id number] [place] [address] [place] Erythrocyte distribution width (RBC) [Ratio] 15.1 % High 11.5-15.0 [facility] Comment on above: Order Comment: Speci men Type: BLOOD SPECIMENOrdering Facility: [facility] Address: [address] [place] [address] Performed By: #### 5 7021-8 ####[facility] CENTERLIA [id number] [place] [address] [place] Hematocrit (Bld) [Volume fraction] 32.9 % Low 36.0-46.0 [facility] Comment on above: Order Comment: Speci men Type: BLOOD SPECIMENOrdering Facility: [facility] Address: [address] [place] [address] Performed By: #### 5 7021-8 ####[facility]ITALNCLI [id number] [place] [address] [place] Hemoglobin (Bld) [Mass/Vol] 10.1 g/dL Low 11.5-15.5 [facility] Comment on above: Order Comment: Speci men Type: BLOOD SPECIMENOrdering Facility: [facility] Address: [address] [place] [address] Performed By: #### 5 7021-8 ####[facility] [id number] [place] [address] [place] Immature granulocytes (Bld) [#/Vol] 0.04 10*3/uL Normal <0.10 [facility] Comment on above: Order Comment: Speci men Type: BLOOD SPECIMENOrdering Facility: [facility] Address: [address] [place] [address] Performed By: #### 5 7021-8 ####[facility] [id number] [place] [address] [place] Immature granulocytes/100 WBC (Bld) 0.3 % Normal [facility] Comment on above: Order Comment: Speci men Type: BLOOD SPECIMENOrdering Facility: [facility] Address: [address] [place] [address] Performed By: #### 5 7021-8 ####[facility] [id number] [place] [address] [place] Lymphocytes (Bld) [#/Vol] 2.76 10*3/uL Normal 1.00-4.00 [facility] Comment on above: Order Comment: Speci men Type: BLOOD SPECIMENOrdering Facility: [facility] Address: [address] [place] [address] Performed By: #### 5 7021-8 ####[facility] [id number] [place] [address] [place] Lymphocytes/100 WBC (Bld) 23.7 % Normal [facility] Comment on above: Order Comment: Speci men Type: BLOOD SPECIMENOrdering Facility: [facility] Address: [address] [place] [address] Performed By: #### 5 7021-8 ####[facility] JESSENIAIvanNCTAYO [id number] [place] [address] [place] MCH (RBC) [Entitic mass] 24.2 pg Low 26.0-34.0 [facility] Comment on above: Order Comment: Speci men Type: BLOOD SPECIMENOrdering Facility: [facility] Address: [address] [place] [address] Performed By: #### 5 7021-8 ####[facility] [id number] [place] [address] [place] MCHC (RBC) [Mass/Vol] 30.7 g/dL Normal 30.5-36.0 [facility] Comment on above: Order Comment: Speci men Type: BLOOD SPECIMENOrdering Facility: [facility] Address: [address] [place] [address] Performed By: #### 5 7021-8 ####[facility]OSPITALNCA [id number] [place] [address] [place] MCV (RBC) [Entitic vol] 78.7 fL Low 80.0-100.0 [facility] Comment on above: Order Comment: Speci men Type: BLOOD SPECIMENOrdering Facility: [facility] Address: [address] [place], [place] [address] Performed By: #### 5 7021-8 ####[facility]ITALNCLIA [id number] [place] [address] [place] Monocytes (Bld) [#/Vol] 0.75 10*3/uL Normal <0.87 [facility] Comment on above: Order Comment: Speci men Type: BLOOD SPECIMENOrdering Facility: [facility] Address: [address] [place] [address] [place] [address] Performed By: #### 5 7021-8 ####[facility] JESSENIAWMARYLIA [id number] [place] [address] [place] Monocytes/100 WBC (Bld) 6.4 % Normal [facility] Comment on above: Order Comment: Speci men Type: BLOOD SPECIMENOrdering Facility: [facility] Address: [address] [place] [address] Performed By: #### 5 7021-8 ####[facility]ITALNCLIA [id number] [place] [address] [place] Neutrophils (Bld) [#/Vol] 7.93 10*3/uL High 1.45-7.50 [facility] Comment on above: Order Comment: Speci men Type: BLOOD SPECIMENOrdering Facility: [facility] Address: [address] [place] [address] Performed By: #### 5 7021-8 ####[facility] CENTERLIA [id number] [place] [address] [place] Neutrophils/100 WBC (Bld) 68.1 % Normal [facility] Comment on above: Order Comment: Speci men Type: BLOOD SPECIMENOrdering Facility: [facility] Address: [address] [place] [address] Performed By: #### 5 7021-8 ####[facility]ENTERLIA [id number] [place] [address] [place] Nucleated RBC (Bld) [#/Vol] 10*3/uL Normal <0.01 [facility] Comment on above: Order Comment: Speci men Type: BLOOD SPECIMENOrdering Facility: [facility] Address: [address] [place] [address] Performed By: #### 5 7021-8 ####[facility] [id number] [place] [address] [place] Nucleated RBC/100 WBC (Bld) [Ratio] 0.0 /100 WBC Normal [facility] Comment on above: Order Comment: Speci men Type: BLOOD SPECIMENOrdering Facility: [facility] Address: [address] [place] [address] Performed By: #### 5 7021-8 ####[facility] [id number] [place] [address] [place] Platelet mean volume (Bld) [Entitic vol] 9.5 fL Normal 9.0-12.7 [facility] Comment on above: Order Comment: Speci men Type: BLOOD SPECIMENOrdering Facility: [facility] Address: [address] [place] [address] Performed By: #### 5 7021-8 ####[facility] [id number] [place] [address] [place] Platelets (Bld) [#/Vol] 392 10*3/uL Normal 150-400 [facility] Comment on above: Order Comment: Speci men Type: BLOOD SPECIMENOrdering Facility: [facility] Address: [address] [place] [address] Performed By: #### 5 7021-8 ####[facility] [id number] [place] [address] [place] RBC (Bld) [#/Vol] 4.18 10*6/uL Normal 3.90-5.20 [facility] Comment on above: Order Comment: Speci men Type: BLOOD SPECIMENOrdering Facility: [facility] Address: [address] [place] [address] Performed By: #### 5 7021-8 ####[facility]ITALNCLI [id number] [place] [address] [place] WBC (Bld) [#/Vol] 11.66 10*3/uL High 3.70-11.00 [facility] Comment on above: Order Comment: Speci men Type: BLOOD SPECIMENOrdering Facility: [facility] Address: [address] [place] [address] Performed By: #### 5 7021-8 ####[facility] A[facility] [id number] [place] [id number] [place] HBV surface Ag Ser Qlon 03-17 HBV surface Ag Ql (S) Negative Normal Negative [facility] Comment on above: Order Comment: Speci men Type: BLOOD SPECIMENOrdering Facility: [facility] Address: [address] [place] [address] Performed By: #### 7 3752-8, 5195-3, 31028-6 ####[facility] LABCLIA [id number] [place] [address] [place] HCV Ab Ser Qlon 04-14-2024 HCV Ab Ql (S) Negative Normal Negative [facility] Comment on above: Order Comment: Speci men Type: BLOOD SPECIMENOrdering Facility: [facility] Address: [address] [place] [address] Result Comment: The result suggests no evidence of active infection with Hepatitis C virus. Should recent infection be suspected, repeat testing may be considered 4-6 weeks after this draw. Performed By: #### 1 6128-1 ####[facility] LABCLIA [id number] [place] [address] [place] HIV 1+2 Ab IA Qlon HIV 1 and 2 Ab IA.rapid Nom (S/P/Bld) Normal [facility] Comment on above: Order Comment: Speci men Type: BLOOD SPECIMENOrdering Facility: [facility] Address: [address] [place] [address] Result Comment: Test not indicated. Performed By: #### 7 3752-8, 5195-3, 81530-1 ####[facility] LABCLIA [id number] [place] [address] [place] HIV 1+2 Ab+HIV1 p24 Ag IA Ql Non-Reactive Normal Nonreactive [facility] Comment on above: Order Comment: Speci men Type: BLOOD SPECIMENOrdering Facility: [facility] Address: [address] [place] [address] Performed By: #### 7 3752-8, 5195-3, 59682-0 ####[facility] LABCLIA [id number] [place] [address] [place] HIV immunoassay testing algorithm interpretation (S/P/Bld) [Interp] Normal [facility] Comment on above: Order Comment: Speci men Type: BLOOD SPECIMENOrdering Facility: [facility] Address: [address] [place] [address] Result Comment: No e vidence of HIV-1 or HIV-2 infection. Should recent infection be suspected, repeat testing may be considered 2-3 weeks after this draw. [place] Rev. Code 3701.243(E): This information has been disclosed to you from confidential records protected from disclosure by state law. ???You shall make no further disclosure of this information without the specific, written, and informed release of the individual to whom it pertains or as otherwise permitted by state law. A general authorization for the release of medical or other information is not sufficient for the purpose of the release of HIV test results or diagnoses. Performed By: #### 7 3752-8, 5195-3, 37428-5 ####[facility] LABCLIA [id number] [place] [id number] [place] HbA1c (Bld)on 04-14-2024 Average glucose Estimated from glycated hemoglobin (Bld) [Mass/Vol] 114 mg/dL Normal [facility] Comment on above: Order Comment: Speci men Type: BLOOD SPECIMENOrdering Facility: [facility] Address: [address] [place] [address] Result Comment: eAG: (Estimated average glucose) is a calculated value from HgbA1c and is physician relations representative of the average blood glucose level in the last 2-3 month period. Performed By: #### 5 5454-3 ####[facility] LABCLIA [id number] [place] [address] [place] HbA1c (Bld) [Mass fraction] 5.6 % Normal 4.3-5.6 [facility] Comment on above: Order Comment: Speci men Type: BLOOD SPECIMENOrdering Facility: [facility] Address: [address] [place] [address] Result Comment: [place] Diabetes Association guidelines indicate that patients with HgbA1c in the range 5.7-6.4% are at increased risk for development of diabetes, and intervention by lifestyle modification may be beneficial. HgbA1c greater or equal to 6.5% is considered diagnostic of diabetes. Performed By: #### 5 5454-3 ####[facility] LABCLIA [id number] [place] [address] [place] [id number] PLUSon 04-14-2024 Cell-free DNA./Cell-free DNA.total Dosage of chromosome-specific cfDNA (cfDNA) [Molar fraction] 11% Normal [facility] Comment on above: Order Comment: Speci men Type: BLOOD SPECIMENOrdering Facility: [facility] Address: [address] [place] [address] Performed By: #### M AT21 ####[facility] LABCLIA [id number] [place] [address] Chr 13+18+21+X+Y aneuploidy Dosage of chromosome-specific cfDNA Ql (cfDNA) Negative Normal [facility] Comment on above: Order Comment: Speci men Type: BLOOD SPECIMENOrdering Facility: [facility] Address: [address] [place] [address] Performed By: #### M AT21 ####[facility] LABCLIA [id number] [place] [address] Chr 21 trisomy Dosage of chromosome-specific cfDNA Ql (cfDNA) Negative Normal [facility] Comment on above: Order Comment: Speci men Type: BLOOD SPECIMENOrdering Facility: [facility] Address: [address] [place] [address] Performed By: #### M AT21 ####[facility] LABCLIA [id number] [place] [address] Chr X and Y aneuploidy risk Sequencing Ql (cfDNA) [Interp] Not detected Normal [facility] Comment on above: Order Comment: Speci men Type: BLOOD SPECIMENOrdering Facility: [facility] Address: [address] [place] [address] Result Comment: Not Detected Not Detected Performed By: #### M AT21 ####[facility] LABCLIA [id number] [place] [address] Citation Carlos (Reference lab test) Comment Normal [facility] Comment on above: Order Comment: Speci men Type: BLOOD SPECIMENOrdering Facility: [facility] Address: [address] [place] [address] Result Comment: 1. P navid BORGES, et al. Estefania Med. 2012;14(3):296-305. 2. Kranthi TOURE et al. Prenat Diag. 2013;33(6):591-597. 3. Echols C, et al. Clin Chem. 2015 Apr;61(4):608-616. 4. Rick BORGES, et al. Estefania Med. 2011;13(11):913-920. 5. ACOG/SMFM Practice Bulletin No. 226, Dec 2019. Performed By: #### M AT21 ####[facility] LABCLIA [id number] [place] [address] Gestational age Estimated from conception date Cash Normal [facility] Comment on above: Order Comment: Speci men Type: BLOOD SPECIMENOrdering Facility: [facility] Address: [address] [place] [address] Performed By: #### M AT21 ####[facility] LABCLIA [id number] [place] [address] GESTATIONALAGE AGE > OR = 9W Yes [facility] Comment on above: Order Comment: Speci men Type: BLOOD SPECIMENOrdering Facility: [facility] Address: [address] [place] [address] Performed By: #### M AT21 ####[facility] LABCLIA [id number] [place] [address] Laboratory comment Carlos (Report) Comment [facility] Comment on above: Order Comment: Shantel espinal Type: BLOOD SPECIMENOrdering Facility: [facility] Address: [address] [place] [address] Result Comment: The MaterniT(R) 21 PLUS laboratory-developed test (LDT) analyzes circulating cell-free DNA from a maternal blood sample. This test is used for screening purposes and not diagnostic. Clinical correlation is recommended. Validation data on twin pregnancies is limited and the ability of this test to detect aneuploidy in higher multiple gestations has not yet been validated. Performed By: #### M AT21 ####[facility] LABCLIA [id number] [place] [id number] director of adult epilepsy name Nom (Provider) Comment [facility] Comment on above: Order Comment: Speckyle espinal Type: BLOOD SPECIMENOrdering Facility: [facility] Address: [address] [place] [address] Result Comment: This specimen showed an expected representation of chromosome 21, 18 and 13 material. Clinical correlation is suggested. Comment Harish Carcamo MD, PhD, Director, [employer] Performed By: #### M AT21 ####[facility] LABCLIA [id number] [place] [id number] LIMITATIONS OF THE TEST Comment [facility] Comment on above: Order Comment: Shantel espinal Type: BLOOD SPECIMENOrdering Facility: [facility] Address: [address] [place] [address] Result Comment: Soledad ellington the results of these tests are highly reliable, discordant results, including inaccurate sex prediction, may occur due to placental, maternal, or mosaicism or neoplasm; vanishing twin; prior maternal organ transplant; or other causes. These tests are screening tests and not diagnostic; they do not replace the accuracy and precision of diagnosis with CVS or amniocentesis. A patient with a positive test result should be referred for genetic counseling and offered invasive diagnosis for confirmation of test results.[5] The results of this testing, including the benefits and limitations, should be discussed with a qualified healthcare provider. management decisions, including termination of the , should not be based on the results of these tests alone. The healthcare provider is responsible for the use of this information in the management of their patient. Sex chromosomal aneuploidies are not reportable for known multiple gestations. A negative result does not ensure an unaffected nor does it exclude the possibility of other chromosomal abnormalities or defects which are not a part of these tests. An uninformative result may be reported, the causes of which may include, but are not limited to, insufficient sequencing coverage, noise or artifacts in the region, amplification or sequencing bias, or insufficient fraction. These tests are not intended to identify pregnancies at risk for neural tube defects or ventral wall defects. Testing for whole chromosome abnormalities (including sex chromosomes) and for subchromosomal abnormalities could lead to the potential discovery of both and maternal genomic abnormalities that could have major, minor, or no, clinical significance. Evaluating the significance of a positive or a non-reportable result may involve both invasive testing and additional studies on the mother. Such investigations may lead to a diagnosis of maternal chromosomal or subchromosomal abnormalities, which on occasion may be associated with benign or malignant maternal neoplasms. These tests may not accurately identify triploidy, balanced rearrangements, or the precise location of subchromosomal duplications or deletions; these may be detected by diagnosis with CVS or amniocentesis. The ability to report results may be impacted by maternal BMI, maternal weight, maternal systemic lupus erythematosus (SLE) and/or by certain pharmaceutical agents such as low molecular weight heparin (for example: Lovenox(R), Xaparin(R), Clexane(R) and Fragmin(R)). Performed By: #### M AT21 ####[facility] LABCLIA [id number] [facility] [place] [address] Monosomy X risk Dosage of chromosome-specific cfDNA Ql (Plasma cell-free+WBC DNA) [Interp] Not detected [facility] Comment on above: Order Comment: Speci men Type: BLOOD SPECIMENOrdering Facility: [facility] Address: [facility] [place] [address] Performed By: #### M AT21 ####[facility] LABCLIA [id number] [place] [address] NEGATIVE PREDICTIVE VALUE Note [facility] Comment on above: Order Comment: Shantel espinal Type: BLOOD SPECIMENOrdering Facility: [facility] Address: [address] [place] [address] Result Comment: The Negative Predictive Value (NPV) for trisomy 21, 18, and 13 is greater than 99%. The NPV for SCA and ESS cannot be calculated as SCA and ESS are only reported when an abnormality is detected. Performed By: #### M AT21 ####[facility] LABCLIA [id number] [place] [address] PERFORMANCE CHARACTERISTICS Note [facility] Comment on above: Order Comment: Shantel espinal Type: BLOOD SPECIMENOrdering Facility: [facility] Address: [address] [place] [address] Result Comment: ! Sex ! Accuracy: 99.4% ! ! ! ! Region (associated syndrome) ! Est. Sens# ! Est. Spec ! ! ! ! Trisomy 21 (Down Syndrome) ! 99.1% ! 99.9% ! ! ! ! Trisomy 18 (Perez Syndrome) ! >99.9% ! 99.6% ! ! ! ! Trisomy 13 (Patau Syndrome) ! 91.7% ! 99.7% ! ! ! ! Sex Chromosome Aneuploidies## ! 96.2% ! 99.7% ! ! ! * As reported in ISCA database nstd37 [https://www.ncbi.nlm.nih.gov/dbvar/studies/nstd37/ ] # Estimated Sensitivity. Sensitivity estimated across the observed size distribution of each syndrome [per ISCA database nstd37] and across the range of fractions observed in routine clinical NIPT. Actual sensitivity can also be influenced by other factors such as the size of the event, total sequence counts, amplification bias, or sequence bias. ## Cash gestation only. Performed By: #### M AT21 ####[employer] ResearchIA [id number] [place] [address] POSITIVE PREDICTIVE VALUE N/A [facility] Comment on above: Order Comment: Speci men Type: BLOOD SPECIMENOrdering Facility: [facility] Address: [address] [place] [address] Performed By: #### M AT21 ####[facility] LABCLIA [id number] [place] [address] Reference Lab Test Method Comment [facility] Comment on above: Order Comment: Speci men Type: BLOOD SPECIMENOrdering Facility: [facility] Address: [address] [place], [place] [id number] Result Comment: See Notes Circulating cell-free DNA was purified from the plasma component of maternal blood. The extracted DNA was then converted into a genomic DNA library for aneuploidy analysis of chromosomes 21, 18, and 13 via next generation sequencing.[1] Optional findings based on the test order include sex chromosome aneuploidy (SCA)[2], and enhanced sequencing series (ESS)[3], which will only be reported on as an additional finding when an abnormality is detected. SCA testing includes information on X and Y representation, while ESS testing includes deletions in selected regions (22q, 15q, 11q, 8q, 5p, 4p, 1p) and trisomy of chromosomes 16 and 22. Performed By: #### M AT21 ####[employer] [id number] [place] [address] Service comment (Unsp spec) [Interp] Comment [facility] Comment on above: Order Comment: Speci men Type: BLOOD SPECIMENOrdering Facility: [facility] Address: [address] [place] [address] Result Comment: See Notes [employer] is a subsidiary of [employer], using the brand [employer]. This test was developed and its performance characteristics determined by [employer]. It has not been cleared or approved by the Food and Drug Administration. This laboratory is certified under the Clinical Laboratory Improvement Amendments (CLIA) as qualified to perform high complexity clinical laboratory testing and accredited by the [employer] (CAP). If there is future clinical need for adding MaterniT GENOME testing, this specimen will be available until term. [facility] samples will not be retained beyond 60 days. [facility] patients will have to send a new sample for re-sequencing ([facility] Test Code: 265484). Performed By: #### M AT21 ####[facility] LABCLIA [id number] [place] [address] Sex Dosage of chromosome-specific cfDNA Nom (cfDNA) Comment [facility] Comment on above: Order Comment: Speci men Type: BLOOD SPECIMENOrdering Facility: [facility] Address: [address] [place] [address] Result Comment: Cons istent with Male Performed By: #### M AT21 ####[facility] LABCLIA [id number] [place] [address] Test performance information Carlos (Unsp spec) Comment [facility] Comment on above: Order Comment: Speci men Type: BLOOD SPECIMENOrdering Facility: [facility] Address: [address] [place] [address] Result Comment: The performance characteristics of the MaterniT(R) 21 PLUS laboratory-developed test (LDT) have been determined in a clinical validation study with women at increased risk for chromosomal aneuploidy.[1-4] Performed By: #### M AT21 ####[facility] LABCLIA [id number] [place] [address] Trisomy 13 risk Dosage of chromosome-specific cfDNA Ql (cfDNA) [Interp] Negative [facility] Comment on above: Order Comment: Speci men Type: BLOOD SPECIMENOrdering Facility: [facility] Address: [address] [place] [address] Performed By: #### M AT21 ####[facility] LABCLIA [id number] [place] [address] Trisomy 18 risk Dosage of chromosome-specific cfDNA Ql (Plasma cell-free+WBC DNA) [Interp] Negative [facility] Comment on above: Order Comment: Speci kylie Type: BLOOD SPECIMENOrdering Facility: [facility] Address: [address] [place] [address] Performed By: #### M AT21 ####[facility] LABCLIA [id number] [place] [address] RUBELLA IGG ANTIBODYon 04-14 RUBELLA IGG AB, QUAL Positive Normal Positive [facility] Comment on above: Order Comment: Shantel espinal Type: BLOOD SPECIMENOrdering Facility: [facility] Address: [address] [place] [address] Result Comment: The result suggests recent or past exposure to Rubella virus or history of Rubella vaccination. Positive result may also be seen due to presence of passively-transferred antibodies. Please correlate with patient's history. Performed By: #### R UBIGG ####[facility] LABCLIA [id number] [place] [address] [place] Reagin and Treponema pallidu m IgG and IgM [Interp]on 04-14-2024 T. pallidum IgG+IgM IA Ql (S) Non-Reactive Normal Nonreactive [facility] Comment on above: Order Comment: Speci men Type: BLOOD SPECIMENOrdering Facility: [facility] Address: [address] [place] [address] Performed By: #### 7 3752-8, 5195-3, 70479-1 ####[facility] LABCLIA [id number] [place] [address] [place] Reagin+T pallidum IgG+IgM Se rPl-Impon 04-14-2024 Reagin and Treponema pallidum IgG and IgM [Interp] Cannot exclude recent Treponemal infection if specimen collected within 7-10 days after appearance of suspect lesions or 2-3 weeks after an exposure. Clinical correlation is required. [facility] Comment on above: Order Comment: Speci men Type: BLOOD SPECIMENOrdering Facility: [facility] Address: [address] [place] [address] Performed By: #### 7 3752-8, 5195-3, 31470-4 ####[facility] LABCLIA [id number] [place] [address] [place] TYPE + SCREEN PRENATALon ABO A [facility] Comment on above: Order Comment: Speci men Type: BLOOD SPECIMENOrdering Facility: [facility] Address: [address] [place] [address] Performed By: #### T SPN ####[facility] BLOOD BANKCLIA [id number] [place] [address] [place] Rh Nom (Bld) Negative [facility] Comment on above: Order Comment: Speci men Type: BLOOD SPECIMENOrdering Facility: [facility] Address: [address] [place] [address] Performed By: #### T SPN ####[facility] BLOOD BANKCLIA [id number] [address] TYPE AND SCREEN EXPIRATION 04/17/2024 23:59 [facility] Comment on above: Order Comment: Speci men Type: BLOOD SPECIMENOrdering Facility: [facility] Address: [address] [place] [address] Performed By: #### T SPN ####[facility] BLOOD BANKCLIA [id number] [address] CNPNon 04-04-2024 CNPN Telephone (OGFVWE) ----- SEDA DE LEÓN ([id number]) 1995 F [facility] Date Time Provider Department 04/04/24 INNA CARROLL During your visit today, we recorded the following information about you: Inna Carroll RN 04/04/2024 11:24 AM Signed 1st risk assessment form submitted 04/04/2024. 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 - ondansetron orally disintegrating (ZOFRAN ODT) 4 mg disintegrating tablet Take 1 tablet by mouth every 8 hours as needed. - ferrous sulfate 325 mg (65 mg iron) tablet Take 325 mg by mouth once daily. - vit/iron fum/folic ac (-FOLIC ACID ORAL) Take by mouth. 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] 07/10/2013 Bleeding in early [O20.9] 12/30/2017 06/21/2018 Patient request for diagnostic testing [Z01.89] 12/30/2017 08/15/2019 Childhood asthma without complication [J45.909] 01/03/2018 10/31/2019 Rh negative state in antepartum period [O26.899*01/17/2018 Abnormal glucose measurement [R73.09] 05/31/2018 08/05/2018 Short interval between pregnancies affecting pr*06/15/2018 10/31/2019 Shortness of breath [R06.02] 06/15/2018 07/05/2018 Polyhydramnios in third trimester [O40.3XX0] 07/05/2018 03/31/2024 History of gestational hypertension [Z87.59] 03/16/2019 Morbid obesity (HCC) [E66.01] 03/22/2019 10/16/2022 Acute upper respiratory infection [J06.9] 06/29/2019 10/31/2019 Well adult exam [Z00.00] 05/16/2020 10/16/2022 Hx of gestational diabetes mellitus, not curren*05/16/2020 01/29/2023 Onychomycosis [B35.1] 11/29/2020 01/29/2023 COVID-19 virus infection [U07.1] 03/26/2021 01/29/2023 Obesity, Class III, BMI >= 40 [E66.01] 08/04/2022 10/16/2022 Morbid obesity with BMI of 40.0-44.9, adult (HC*08/20/2022 10/16/2022 History of gastric bypass [Z98.84] 01/01/2023 Pre-syncope [R55] 05/03/2023 27 weeks gestation of [Z3A.27] 05/03/2023 06/21/2023 Anemia [D64.9] 05/04/2023 Maternal iron deficiency anemia complicating pr*05/04/2023 03/31/2024 Impaired intestinal absorption [K90.9] 05/04/2023 Insulin controlled gestational diabetes mellitu*05/19/2023 03/31/2024 Anemia during in second trimester [O9*05/19/2023 03/31/2024 Paratubal cyst [N83.8] 03/16/2024 Hx of gestational diabetes in prior , *03/31/2024 Encounter for supervision of normal i*03/31/2024 Encounter Status:Closed by INNA CARROLL on 04/04/24 [facility] Bacteria Ur Culton Bacteria identified Cx Nom (U) ORGANISM ID: 1 <10,000 CFU/ml Normal urogenital braeden [facility] Comment on above: Performed By: #### 6 30-4 ####[facility] LABCLIA [id number] [place] [address] [place] C. trachomatis+N. gonorrhoea e DNA BEN+probe Ql (Unsp spec)on 03-31-2024 C. trachomatis rRNA BEN+probe Ql (Unsp spec) Not detected Normal Not detected [facility] Comment on above: Order Comment: Speci men Type: SWABOrdering Facility: [facility] Address: [address] [place] [address] Performed By: #### 3 6902-5 ####[facility] LABCLIA [id number] [place] [address] [place] N. gonorrhoeae rRNA BEN+probe Ql (Unsp spec) Not detected Normal Not detected [facility] Comment on above: Order Comment: Speci men Type: SWABOrdering Facility: [facility] Address: [address] [place] [address] Performed By: #### 3 6902-5 ####[facility] LABCLIA [id number] [place] [address] [place] PAP TESTon 03-31-2024 ADEQUACY [facility] Comment on above: Order Comment: Speci men Type: FLUID SPECIMENOrdering Facility: [facility] Address: [address] [place] [address] Result Comment: Sati sfactory for interpretation. No endocervical component Performed By: #### L [id number] ####[facility] LABCLIA [id number] [place] [address] [place] CASE REPORT [facility] Comment on above: Order Comment: Speci men Type: FLUID SPECIMENOrdering Facility: [facility] Address: [address] [place] [address] Result Comment: Gyne cologic Cytology Report Case: [id number] Authorizing Provider: Kayy Longo APRN.BLENDER LABORER Collected: 03/31/2024 09:48 AM Ordering Location: OB/Gynecology Received: 03/31/2024 12:14 PM First Screen: Luis Jim, CT, ASCP Specimen: Pap Test, ThinPrep, Cervix Performed By: #### L [id number] ####[facility] LABCLIA [id number] [place] [address] [place] CLINICAL HISTORY, CYTOLOGY, BERRY GROWER Routine Exam [facility] Comment on above: Order Comment: Speci men Type: FLUID SPECIMENOrdering Facility: [facility] Address: [address] [place] [address] Performed By: #### L [id number] ####[facility] LABCLIA [id number] [place] [address] [place] FINAL PERFORMING LAB Normal [facility] Comment on above: Order Comment: Speci men Type: FLUID SPECIMENOrdering Facility: [facility] Address: [address] [place] [address] Result Comment: Tech nical component, overlock sleeve setter screening performed at [facility], [facility] [address] CLIA# [id number] Diagnostic interpretation performed at [facility], [address] [address] CLIA# [id number] Fire Alarm Installer: Amarjit Harper M.D. Performed By: #### L [id number] ####[facility] LABCLIA [id number] [place] [address] [place] INTERPRETATION, CYTOLOGY, BERRY GROWER [facility] Comment on above: Order Comment: Speci men Type: FLUID SPECIMENOrdering Facility: [facility] Address: [address] [place] [address] Result Comment: Nega tive for intraepithelial lesion or malignancy. Performed By: #### L [id number] ####[facility] LABCLIA [id number] [place] [id number] [place] LMP 02/29/2024 [facility] Comment on above: Order Comment: Speci men Type: FLUID SPECIMENOrdering Facility: [facility] Address: [address] [place] [address] Performed By: #### L [id number] ####[facility] LABCLIA [id number] [place] [id number] [place] PAP DISCLAIMER COMMENT The Pap Smear is a screening test for cervical cancer. False negative results occur with all screening tests, emphasizing the need for rescreening at recommended intervals, and clinical correlation. [facility] Comment on above: Order Comment: Speci men Type: FLUID SPECIMENOrdering Facility: [facility] Address: [address] [place] [id number] Performed By: #### L [id number] ####[facility] LABCLIA [id number] [address] [place] PAP BAG PATCHER COMMENT This specimen has be en analyzed by the ThinPrep Imaging System, an automated imaging and review system, which assists the laboratory in evaluating cells on ThinPrep Pap tests. Following automated imaging, selected stevens from every slide are reviewed by a overlock sleeve setter. [facility] Comment on above: Order Comment: Speci men Type: FLUID SPECIMENOrdering Facility: [facility] Address: [address] [place] [address] Performed By: #### L [id number] ####[facility] LABIA [id number] [address] [place] POC MERCHANDISING LEAD ULTRASOUNDon 03-31-19 Indication Confirmation of intrauterine . Confirmation of cardiac activity. Estimation of gestational age Impression cardiac activity is visualized, CRL is appropriate for clinical dates, corresponding to BELEM 11/05/24 Recommendations Additional follow-up as clinically indicated. Method Transvaginal ultrasound examination. View: Adequate visualization Cash . Number of embryos: 1 Dating LMP on: 01/30/2024 Cycle: LMP date not known GA by LMP 8 w + 5 d BELEM by LMP: 11/05/2024 Ultrasound examination on: 03/31/2024 GA by U/S based upon: CRL GA by U/S 8 w + 1 d BELEM by U/S: 11/09/2024 Assigned: based on the LMP, selected on 03/31/2024 Assigned GA 8 w + 5 d Assigned BELEM: 11/05/2024 Biometry Standard FHR 170 bpm CRL 17.4 mm 8w 1d 10% Hadlock Assessment Gestational sac: visualized Location: intrauterine Yolk sac: visualized Embryo: visualized CRL 17.4 mm 8w 1d 10% Hadlock Cardiac activity: present FHR 170 bpm General Evaluation Cardiac activity present. FHR 170 bpm. movements: present Performed By: Kayy Longo CNP Read By: Kayy Longo CNP MATERNAL MEDICINE [facility] Radiology Study observation (narrative) [facility] Examination level ultrasound on 03-16-2024 Indication dating, Viability Impression Maternal Structures: Right Ovary: Size 32 mm x 29 mm x 11 mm Left Ovary: Size 40 mm x 39 mm x 18 mm. There is a left simple paraovarian/paratubal cyst that measures 19 mm x 40 mm x 54 mm. - Single, live, intrauterine . - An intrauterine gestational sac with a yolk sac and pole is present. - Patient did not have a menses after the last miscarriage. Therefore, dating is now based on today?s crown rump length. The final EDC is 11/09/2024 - heart rate is within normal limits. FHR 122. Recommendations - First trimester anatomic survey at 13 weeks with nuchal translucency measurement as clinically indicated. - Additional follow up as clinically indicated. Simple paratubal/paraovarian cyst. No follow-up needed. Maternal Assessment Height 160 cm Height (ft) 5 ft Height (in) 3 in Method Transabdominal ultrasound examination. View: Adequate visualization Cash . Number of embryos: 1 Dating Cycle: LMP date not known Ultrasound examination on: 03/16/2024 GA by U/S based upon: CRL GA by U/S 6 w + 0 d BELEM by U/S: 11/09/2024 Assigned: based on ultrasound (CRL), selected on 03/16/2024 Assigned GA 6 w + 0 d Assigned BELEM: 11/09/2024 Assessment Gestational sac: visualized Location: intrauterine Yolk sac: visualized YS 2.8 mm 1% Gr[place]ia Embryo: visualized CRL 3.4 mm 6w 0d <1% Hadlock Cardiac activity: present FHR 122 bpm Maternal Structures Uterus / Cervix Uterus: Visualized Uterus position: anteflexed Description of uterine malformations: none Myometrium: normal Uterus length 101 mm Uterus width 94 mm Uterus height 71 mm Uterus Vol 353.0 cm Endometrium: normal, live IUP noted within Cervix: Visualized Cervix details: normal Ovaries / Tubes / Adnexa Rt ovary: Visualized Rt ovary morphology: premenopausal normal follicular Rt ovary D1 32 mm Rt ovary D2 29 mm Rt ovary D3 11 mm Rt ovary Vol 5.1 cm Lt ovary: Visualized Lt ovary morphology: premenopausal normal follicular Lt ovary D1 40 mm Lt ovary D2 39 mm Lt ovary D3 18 mm Lt ovary Vol 14.3 cm Lt ovarian cyst(s): Cysts identified Lt ovarian cyst D1 19 mm Lt ovarian cyst D2 40 mm Lt ovarian cyst D3 54 mm Lt ovarian cyst mean 37.7 mm Lt ovarian cyst vol 21.488 cm Lt ovarian cyst findings: Simple paraovarian/paratubal cyst Performed By: Niki Lucio RDMS Read By: Trisha Rudolph M.D. MATERNAL MEDICINE [facility] Radiology Study observation (narrative) [facility] B-HCG SerPl-aCncon 4 HCG.beta subunit Qn 1700.0 m[IU]/mL High <5.0 [facility] Comment on above: Order Comment: Speci men Type: BLOOD SPECIMENOrdering Facility: [facility] Address: [address] [place] [address] Result Comment: CHERELLE TITATIVE HCG NORMAL RANGES Weeks of Gestation (Weeks Since LMP) 3 Weeks (5.8-71.2 mIU/mL) 4 Weeks (9.5-750 mIU/mL) 5 Weeks (217-7138 mIU/mL) 6 Weeks (158-13127 mIU/mL) 7 Weeks (3697-406005 mIU/mL) 8 Weeks (35460-922665 mIU/mL) 9 Weeks (44437-511703 mIU/mL) 10 Weeks (38460-938737 mIU/mL) 12 Weeks (67217-735675 mIU/mL) Referenced to 4th IS of [facility] Performed By: #### 2 1198-7 ####[facility] LABCLIA [id number] [facility] [place] [place] [address] [place] CNPIzzy 03-03-2024 CNPN Telephone (WALEGY) ----- SEDA DE LEÓN ([id number]) 1995 F CHT Date Time Provider Department 03/03/24 SHAYE, INNA OBGYWM During your visit today, we recorded the following information about you: Seda Cardoza RN 03/03/2024 10:16 AM Addendum ----- Message from Inna Garcia MD sent at 03/03/2024 10:02 AM EST ----- Keep open for future results Inna Horne RN 03/06/2024 8:42 AM Signed See result note. Inna Horne RN Allergies As of Date: 03/03/2024 Noted Allergy Reaction CEFDINIR 04/11/2012 11 - Vomiting MORPHINE 05/15/2013 4 - Hives 12 - Shortness of Breath Comments: given medication at [facility] and reacted PEANUTS 12/18/2014 7 - Swelling Comments: redness Date Reviewed: 02/02/2024 Reviewed by: Erika Calderón MA - Fully Assessed Prescriptions as of 03/06/2024 - Etonogestrel-Ethinyl Estradiol (NUVARING) 0.12-0.015 mg/24 hr vaginal ring Use 1 Each vaginally as directed. - ferrous sulfate 325 mg (65 mg iron) tablet Take 325 mg by mouth once daily. - vit/iron fum/folic ac (-FOLIC ACID ORAL) Take by mouth. - acetaminophen (TYLENOL) 325 mg tablet Take 650 mg by mouth every 6 hours as needed. 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.01] 07/10/2013 Bleeding in early [O20.9] 12/30/2017 06/21/2018 Patient request for diagnostic testing [Z01.89] 12/30/2017 08/15/2019 Childhood asthma without complication [J45.909] 01/03/2018 10/31/2019 Rh negative state in antepartum period [O26.899*01/17/2018 Abnormal glucose measurement [R73.09] 05/31/2018 08/05/2018 Short interval between pregnancies affecting pr*06/15/2018 10/31/2019 Shortness of breath [R06.02] 06/15/2018 07/05/2018 Polyhydramnios in third trimester [O40.3XX0] 07/05/2018 History of gestational hypertension [Z87.59] 03/16/2019 Morbid obesity (HCC) [E66.01] 03/22/2019 10/16/2022 Acute upper respiratory infection [J06.9] 06/29/2019 10/31/2019 Well adult exam [Z00.00] 05/16/2020 10/16/2022 Hx of gestational diabetes mellitus, not curren*05/16/2020 01/29/2023 Onychomycosis [B35.1] 11/29/2020 01/29/2023 COVID-19 virus infection [U07.1] 03/26/2021 01/29/2023 Obesity, Class III, BMI >= 40 [E66.01] 08/04/2022 10/16/2022 Morbid obesity with BMI of 40.0-44.9, adult (HC*08/20/2022 10/16/2022 History of gastric bypass [Z98.84] 01/01/2023 Pre-syncope [R55] 05/03/2023 27 weeks gestation of [Z3A.27] 05/03/2023 06/21/2023 Anemia [D64.9] 05/04/2023 Maternal iron deficiency anemia complicating pr*05/04/2023 Impaired intestinal absorption [K90.9] 05/04/2023 Insulin controlled gestational diabetes mellitu*05/19/2023 Anemia during in second trimester [O9*05/19/2023 Encounter Status:Closed by INNA HORNE on 03/06/24 Normal [facility] B-HCG [facility] 4 HCG.beta subunit Qn 713.3 m[IU]/mL High <5.0 C [facility] Comment on above: Order Comment: Speci men Type: BLOOD SPECIMENOrdering Facility: [facility] Address: [address] [place] [address] Result Comment: CHERELLE TITATIVE HCG NORMAL RANGES Weeks of Gestation (Weeks Since LMP) 3 Weeks (5.8-71.2 mIU/mL) 4 Weeks (9.5-750 mIU/mL) 5 Weeks (217-7138 mIU/mL) 6 Weeks (158-35658 mIU/mL) 7 Weeks (3697-984219 mIU/mL) 8 Weeks (94043-397052 mIU/mL) 9 Weeks (62111-557103 mIU/mL) 10 Weeks (54744-217309 mIU/mL) 12 Weeks (31158-805556 mIU/mL) Referenced to 4th IS of [facility] Performed By: #### 2 1198-7 ####[facility] LABIA [id number] [address] OF [facility] CNPIzzy 03-01-2024 CNPN Telephone (OBGYWM) ----- SEDA DE LEÓN ([id number]) 1995 F T Date Time Provider Department 03/01/24 INNA GARCIA During your visit today, we recorded the following information about you: Steve Bolivar RN 03/01/2024 1:20 PM Signed Patient was last seen in the office on 02/01 for miscarriage follow up. At office visit she was prescribed Nuvaring and started it the following day. Patient calling with concerns of positive test at home. Patient took a test because she was due to start her period after removing the Nuvaring and she has not started yet. Patient last had an HCG quant level done on 01/28/24 and it was 61.2. Do you want patient to have repeat blood work? KEYONNA Borja Jennifer, MD 03/01/2024 1:32 PM Signed Yes. Orders placed Steve Bolivar RN 03/01/2024 1:53 PM Signed Patient notified and voiced understanding, will get blood work completed tomorrow. KEYONNA Borja Jennifer, MD 03/06/2024 8:16 AM Signed Addended by: INNA GARCIA on: 03/06/2024 08:16 AM Modules accepted: Orders Allergies As of Date: 03/01/2024 Noted Allergy Reaction CEFDINIR 04/11/2012 11 - Vomiting MORPHINE 05/15/2013 4 - Hives 12 - Shortness of Breath Comments: given medication at [facility] and reacted PEANUTS 12/18/2014 7 - Swelling Comments: redness Date Reviewed: 02/02/2024 Reviewed by: Erika Calderón MA - Fully Assessed Reason for Visit: test [Other] Primary Visit Diagnosis:Missed menses [N92.6] Order(s):HCG QUANTITATIVE [SQHCGQT] Order #: [id number] STANDING OBSTETRIC ULTRASOUND WHI [[id number]] Reflex Order#: [id number] (Ord#:[id number])Qty: 1 FUTURE Prescriptions as of 03/06/2024 - Etonogestrel-Ethinyl Estradiol (NUVARING) 0.12-0.015 mg/24 hr vaginal ring Use 1 Each vaginally as directed. - ferrous sulfate 325 mg (65 mg iron) tablet Take 325 mg by mouth once daily. - vit/iron fum/folic ac (-FOLIC ACID ORAL) Take by mouth. - acetaminophen (TYLENOL) 325 mg tablet Take 650 mg by mouth every 6 hours as needed. 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] 07/10/2013 Bleeding in early [O20.9] 12/30/2017 06/21/2018 Patient request for diagnostic testing [Z01.89] 12/30/2017 08/15/2019 Childhood asthma without complication [J45.909] 01/03/2018 10/31/2019 Rh negative state in antepartum period [O26.899*01/17/2018 Abnormal glucose measurement [R73.09] 05/31/2018 08/05/2018 Short interval between pregnancies affecting pr*06/15/2018 10/31/2019 Shortness of breath [R06.02] 06/15/2018 07/05/2018 Polyhydramnios in third trimester [O40.3XX0] 07/05/2018 History of gestational hypertension [Z87.59] 03/16/2019 Morbid obesity (HCC) [E66.01] 03/22/2019 10/16/2022 Acute upper respiratory infection [J06.9] 06/29/2019 10/31/2019 Well adult exam [Z00.00] 05/16/2020 10/16/2022 Hx of gestational diabetes mellitus, not curren*05/16/2020 01/29/2023 Onychomycosis [B35.1] 11/29/2020 01/29/2023 COVID-19 virus infection [U07.1] 03/26/2021 01/29/2023 Obesity, Class III, BMI >= 40 [E66.01] 08/04/2022 10/16/2022 Morbid obesity with BMI of 40.0-44.9, adult (HC*08/20/2022 10/16/2022 History of gastric bypass [Z98.84] 01/01/2023 Pre-syncope [R55] 05/03/2023 27 weeks gestation of [Z3A.27] 05/03/2023 06/21/2023 Anemia [D64.9] 05/04/2023 Maternal iron deficiency anemia complicating pr*05/04/2023 Impaired intestinal absorption [K90.9] 05/04/2023 Insulin controlled gestational diabetes mellitu*05/19/2023 Anemia during in second trimester [O9*05/19/2023 Encounter Status:Closed by STEVE BOLIVAR on 03/01/24 [facility] Wliliam 02-09-2024 BRANDON Telephone (OBGYWM) ----- SEDA DE LEÓN ([id number]) 1995 F CHT Date Time Provider Department 02/09/24 JIMMIE JULES During your visit today, we recorded the following information about you: Polo Soto RN 02/09/2024 4:27 PM Signed Patient saw DM 02/01 for f/u miscarriage and was prescribed Nuvaring. She is asking when she can start that. She is still having light bleeding from miscarriage. Aware provider is back in office on 02/10. KEYONNA Gasca Deidre, MD 02/11/2024 9:37 AM Signed She can start it. Polo Soto RN 02/11/2024 9:45 AM Signed Patient notified. Polo Soto RN Allergies As of Date: 02/09/2024 Noted Allergy Reaction CEFDINIR 04/11/2012 11 - Vomiting MORPHINE 05/15/2013 4 - Hives 12 - Shortness of Breath Comments: given medication at [facility] and reacted PEANUTS 12/18/2014 7 - Swelling Comments: redness Date Reviewed: 02/02/2024 Reviewed by: Erika Calderón MA - Fully Assessed Reason for Visit: Medication Question [6498] Prescriptions as of 02/11/2024 - Etonogestrel-Ethinyl Estradiol (NUVARING) 0.12-0.015 mg/24 hr vaginal ring Use 1 Each vaginally as directed. - ferrous sulfate 325 mg (65 mg iron) tablet Take 325 mg by mouth once daily. - vit/iron fum/folic ac (-FOLIC ACID ORAL) Take by mouth. - acetaminophen (TYLENOL) 325 mg tablet Take 650 mg by mouth every 6 hours as needed. 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] 07/10/2013 Bleeding in early [O20.9] 12/30/2017 06/21/2018 Patient request for diagnostic testing [Z01.89] 12/30/2017 08/15/2019 Childhood asthma without complication [J45.909] 01/03/2018 10/31/2019 Rh negative state in antepartum period [O26.899*01/17/2018 Abnormal glucose measurement [R73.09] 05/31/2018 08/05/2018 Short interval between pregnancies affecting pr*06/15/2018 10/31/2019 Shortness of breath [R06.02] 06/15/2018 07/05/2018 Polyhydramnios in third trimester [O40.3XX0] 07/05/2018 History of gestational hypertension [Z87.59] 03/16/2019 Morbid obesity (HCC) [E66.01] 03/22/2019 10/16/2022 Acute upper respiratory infection [J06.9] 06/29/2019 10/31/2019 Well adult exam [Z00.00] 05/16/2020 10/16/2022 Hx of gestational diabetes mellitus, not curren*05/16/2020 01/29/2023 Onychomycosis [B35.1] 11/29/2020 01/29/2023 COVID-19 virus infection [U07.1] 03/26/2021 01/29/2023 Obesity, Class III, BMI >= 40 [E66.01] 08/04/2022 10/16/2022 Morbid obesity with BMI of 40.0-44.9, adult (HC*08/20/2022 10/16/2022 History of gastric bypass [Z98.84] 01/01/2023 Pre-syncope [R55] 05/03/2023 27 weeks gestation of [Z3A.27] 05/03/2023 06/21/2023 Anemia [D64.9] 05/04/2023 Maternal iron deficiency anemia complicating pr*05/04/2023 Impaired intestinal absorption [K90.9] 05/04/2023 Insulin controlled gestational diabetes mellitu*05/19/2023 Anemia during in second trimester [O9*05/19/2023 Encounter Status:Closed by POLO SOTO on 02/11/24 [facility] CNOVon 02-02-2024 CNOV Office Visit (OBGYWM ) ----- SEDA DE LEÓN ([id number]) 1995 F CHT Date Time Provider Department 02/02/24 10:20 AM JIMMIE JULES OBGYWM During your visit today, we recorded the following information about you: Blood pressure Weight 118/74 66.7 kg Jimmie Jules MD 02/02/2024 11:59 AM Signed Commercial Installer offered: Patient declines. Seda De León is a 28 year old female who presents for follow up miscarriage- pt reports didn't know she was - took UPT on 01/13, started bleeding on 01/28 - no fevers or pain. Pt reports just stopped breast feeding 2 months ago. Pt was not taking any control. Pt reports would like to start BC. Pt reports previously used Nuva Ring and was happy with it. Pt offers no other concerns today. Pt reports prior to she was being followed for a left ovarian cyst. Patient states she was to have a follow-up ultrasound but it had to be canceled because she found out she was . 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 Continue to monitor. No Hemabate. SW Concussion 2010 COVID-19 virus infection 03/26/202103/2021 Diet controlled gestational diabetes mellitus (GDM) in third trimester 08/16/2019 Gestational hypertension History of gestational hypertension 03/16/2019 Hx of gestational diabetes mellitus, not currently [...] Other MGGMo Anesthesia Problems No Family History Social History Tobacco Use Smoking status: Never Smokeless tobacco: Never Vaping Use Vaping status: Never Used Substance Use Topics Alcohol use: No Drug use: No Current Outpatient Medications Medication Sig ferrous sulfate 325 mg (65 mg iron) tablet Take 325 mg by mouth once daily. vit/iron fum/folic ac (-FOLIC ACID ORAL) Take by mouth. acetaminophen (TYLENOL) 325 mg tablet Take 650 mg by mouth every 6 hours as needed. No current facility-administered medications for this visit. Allergies As of Date: 02/02/2024 Allergen Noted Reaction CEFDINIR 04/11/2012 Vomiting MORPHINE 05/15/2013 Hives and Shortness of Breath PEANUTS 12/18/2014 Swelling Fully Assessed 09/13/2023 REVIEW OF SYSTEMS Abdomen: No bloating, early satiety, indigestion, or increased flatulence. No abdominal pain, nausea, vomiting, diarrhea, or constipation. Bladder: no dysuria. Expanded ROS: no fever Allergies and current medication updated:Yes SENSITIVE EXAM: The sensitive examination was discussed with the Patient or Patient's Authorized R&D Engineer. As applicable, any other physician, advance practice provider, medical student, or other health professional student that will be observing or involved in the sensitive examination for educational or training purposes was discussed with the Patient or Authorized R&D Engineer. The Patient or Authorized R&D Engineer has agreed to proceed with the sensitive examination. (Sensitive examination includes inspection and/or palpation of the breasts, pelvis, prostate and anorectal regions). EXAM: BP 118/74 Wt 147 lb (66.7kg) LMP 10/20/2022 GENERAL: pleasant, female in no apparent distress HEENT: Normocephalic, atraumatic, mucus membranes moist, and no lesions NECK: full range of motion DERMATOLOGY: Normal and without lesions ABDOMEN: soft, non-tender, and no masses PELVIC: external genitalia normal, normal Bartholin's glands, urethra, [place]'s glands, no vulvar lesions, no cervical lesions, good vaginal support, normal appearing perineal body and perianal region, moderate amount of blood in vault, minimal active bleeding. Os is closed. NEURO: alert and oriented x3,exam grossly non-focal EXTREMITIES: normal Limited transvaginal ultras (more content not included)... Normal [facility] 01-31-2024 CNPN Telephone (OBGYWM) ----- SEDA DE LEÓN ([id number]) 1995 F CHT Date Time Provider Department 01/31/24 KAYY LONGO OBGYWM During your visit today, we recorded the following information about you: Kayy Longo APRN.CNP 01/31/2024 7:31 AM Signed Pt quant levels are falling, consistent with a SAB. Pt needs scheduled with doctor to discuss management. Kayy Longo APRN.Polo Lindsey RN 01/31/2024 9:56 AM Signed Attempted to call patient. Unable to leave message because mailbox was full. KEYONNA Gasca Lindsey, RN 01/31/2024 10:27 AM Signed Patient notified and voiced understanding of results. Follow up scheduled. Steve Bolivar RN Allergies As of Date: 01/31/2024 Noted Allergy Reaction CEFDINIR 04/11/2012 11 - Vomiting MORPHINE 05/15/2013 4 - Hives 12 - Shortness of Breath Comments: given medication at [facility] and reacted PEANUTS 12/18/2014 7 - Swelling Comments: redness Date Reviewed: 09/13/2023 Reviewed by: Maritza Schneider MA - Fully Assessed Reason for Visit: Results [95] Prescriptions as of 01/31/2024 - ferrous sulfate 325 mg (65 mg iron) tablet Take 325 mg by mouth once daily. - vit/iron fum/folic ac (-FOLIC ACID ORAL) Take by mouth. - acetaminophen (TYLENOL) 325 mg tablet Take 650 mg by mouth every 6 hours as needed. Problem List As Of Date 01/31/2024 Noted Resolved Spondylolysis of lumbar region [M43.06] 06/25/2011 10/31/2019 Lumbago [M54.50] 07/07/2011 06/21/2018 Tendonitis, Achilles, left [M76.62] 01/10/2013 06/21/2018 Mononucleosis [B27.90] 05/17/2013 06/21/2018 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HCC) [Q07.01] 07/10/2013 Bleeding in early [O20.9] 12/30/2017 06/21/2018 Patient request for diagnostic testing [Z01.89] 12/30/2017 08/15/2019 Childhood asthma without complication [J45.909] 01/03/2018 10/31/2019 Rh negative state in antepartum period [O26.899*01/17/2018 Abnormal glucose measurement [R73.09] 05/31/2018 08/05/2018 Short interval between pregnancies affecting pr*06/15/2018 10/31/2019 Shortness of breath [R06.02] 06/15/2018 07/05/2018 Polyhydramnios in third trimester [O40.3XX0] 07/05/2018 History of gestational hypertension [Z87.59] 03/16/2019 Morbid obesity (HCC) [E66.01] 03/22/2019 10/16/2022 Acute upper respiratory infection [J06.9] 06/29/2019 10/31/2019 Well adult exam [Z00.00] 05/16/2020 10/16/2022 Hx of gestational diabetes mellitus, not curren*05/16/2020 01/29/2023 Onychomycosis [B35.1] 11/29/2020 01/29/2023 COVID-19 virus infection [U07.1] 03/26/2021 01/29/2023 Obesity, Class III, BMI >= 40 [E66.01] 08/04/2022 10/16/2022 Morbid obesity with BMI of 40.0-44.9, adult (HC*08/20/2022 10/16/2022 History of gastric bypass [Z98.84] 01/01/2023 Pre-syncope [R55] 05/03/2023 27 weeks gestation of [Z3A.27] 05/03/2023 06/21/2023 Anemia [D64.9] 05/04/2023 Maternal iron deficiency anemia complicating pr*05/04/2023 Impaired intestinal absorption [K90.9] 05/04/2023 Insulin controlled gestational diabetes mellitu*05/19/2023 Anemia during in second trimester [O9*05/19/2023 Encounter Status:Closed by STEVE BOLIVAR on 01/31/24 Normal [facility] B-HCG SerPl-aCncon 4 HCG.beta subunit Qn 61.2 m[IU]/mL High <5.0 Cl [facility] Comment on above: Order Comment: Speci men Type: BLOOD SPECIMENOrdering Facility: [facility] Address: [address] [place] [address] Result Comment: CHERELLE TITATIVE HCG NORMAL RANGES Weeks of Gestation (Weeks Since LMP) 3 Weeks (5.8-71.2 mIU/mL) 4 Weeks (9.5-750 mIU/mL) 5 Weeks (217-7138 mIU/mL) 6 Weeks (158-24823 mIU/mL) 7 Weeks (3697-952086 mIU/mL) 8 Weeks (70882-205520 mIU/mL) 9 Weeks (04807-469196 mIU/mL) 10 Weeks (37138-301958 mIU/mL) 12 Weeks (75351-838907 mIU/mL) Referenced to 4th IS of [facility] Performed By: #### 2 1198-7 ####[facility] LABCLIA [id number] [place] [address] [place] B-HCG SerPl-aCncon 4 HCG.beta subunit Qn 124.3 m[IU]/mL High <5.0 C [facility] Comment on above: Order Comment: Speci men Type: BLOOD SPECIMENOrdering Facility: [facility] Address: [address] [facility] [place] [address] Result Comment: CHERELLE TITATIVE HCG NORMAL RANGES Weeks of Gestation (Weeks Since LMP) 3 Weeks (5.8-71.2 mIU/mL) 4 Weeks (9.5-750 mIU/mL) 5 Weeks (217-7138 mIU/mL) 6 Weeks (158-21173 mIU/mL) 7 Weeks (3697-613844 mIU/mL) 8 Weeks (98882-293848 mIU/mL) 9 Weeks (42315-813492 mIU/mL) 10 Weeks (24067-287940 mIU/mL) 12 Weeks (91941-691708 mIU/mL) Referenced to 4th IS of [facility] Performed By: #### 2 1198-7 ####[facility] LABCLIA [id number] [address] [facility] CNPN Telephone (OBGYWM) ----- SEDA DE LEÓN ([id number]) 1995 F CHT Date Time Provider Department 01/25/24 KAYY LONGO During your visit today, we recorded the following information about you: Kayy Longo APRN.CNP 01/25/2024 7:02 AM Signed +HCG, repeat x 2, order filed. Assist pt in scheduling NOB. Kayy Longo APRN.Inna Mcdaniel RN 01/25/2024 8:30 AM Signed Patient notified. Will have HCG done on 01/25 and 01/27. Scheduled NOB on 02/23. Inna Horne RN Allergies As of Date: 01/25/2024 Noted Allergy Reaction CEFDINIR 04/11/2012 11 - Vomiting MORPHINE 05/15/2013 4 - Hives 12 - Shortness of Breath Comments: given medication at [facility] and reacted PEANUTS 12/18/2014 7 - Swelling Comments: redness Date Reviewed: 09/13/2023 Reviewed by: Maritza Schneider MA - Fully Assessed Reason for Visit: Results [95] Primary Visit Diagnosis:Encounter for test, result positive [Z32.01] Order(s):HCG QUANTITATIVE [SQHCGQT] Order #: [id number] STANDING Prescriptions as of 01/25/2024 - ferrous sulfate 325 mg (65 mg iron) tablet Take 325 mg by mouth once daily. - vit/iron fum/folic ac (-FOLIC ACID ORAL) Take by mouth. - acetaminophen (TYLENOL) 325 mg tablet Take 650 mg by mouth every 6 hours as needed. Problem List As Of Date 01/25/2024 Noted Resolved Spondylolysis of lumbar region [M43.06] 06/25/2011 10/31/2019 Lumbago [M54.50] 07/07/2011 06/21/2018 Tendonitis, Achilles, left [M76.62] 01/10/2013 06/21/2018 Mononucleosis [B27.90] 05/17/2013 06/21/2018 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HCC) [Q07.01] 07/10/2013 Bleeding in early [O20.9] 12/30/2017 06/21/2018 Patient request for diagnostic testing [Z01.89] 12/30/2017 08/15/2019 Childhood asthma without complication [J45.909] 01/03/2018 10/31/2019 Rh negative state in antepartum period [O26.899*01/17/2018 Abnormal glucose measurement [R73.09] 05/31/2018 08/05/2018 Short interval between pregnancies affecting pr*06/15/2018 10/31/2019 Shortness of breath [R06.02] 06/15/2018 07/05/2018 Polyhydramnios in third trimester [O40.3XX0] 07/05/2018 History of gestational hypertension [Z87.59] 03/16/2019 Morbid obesity (HCC) [E66.01] 03/22/2019 10/16/2022 Acute upper respiratory infection [J06.9] 06/29/2019 10/31/2019 Well adult exam [Z00.00] 05/16/2020 10/16/2022 Hx of gestational diabetes mellitus, not curren*05/16/2020 01/29/2023 Onychomycosis [B35.1] 11/29/2020 01/29/2023 COVID-19 virus infection [U07.1] 03/26/2021 01/29/2023 Obesity, Class III, BMI >= 40 [E66.01] 08/04/2022 10/16/2022 Morbid obesity with BMI of 40.0-44.9, adult (HC*08/20/2022 10/16/2022 History of gastric bypass [Z98.84] 01/01/2023 Pre-syncope [R55] 05/03/2023 27 weeks gestation of [Z3A.27] 05/03/2023 06/21/2023 Anemia [D64.9] 05/04/2023 Maternal iron deficiency anemia complicating pr*05/04/2023 Impaired intestinal absorption [K90.9] 05/04/2023 Insulin controlled gestational diabetes mellitu*05/19/2023 Anemia during in second trimester [O9*05/19/2023 Encounter Status:Closed by INNA HORNE on 01/25/24 Normal [facility] B-HCG SerPl-aCncon 4 HCG.beta subunit Qn 88.1 m[IU]/mL High <5.0 Cl [facility] Comment on above: Order Comment: Speci men Type: BLOOD SPECIMENOrdering Facility: [facility] Address: [address] [place] [address] Result Comment: CHERELLE TITATIVE HCG NORMAL RANGES Weeks of Gestation (Weeks Since LMP) 3 Weeks (5.8-71.2 mIU/mL) 4 Weeks (9.5-750 mIU/mL) 5 Weeks (217-7138 mIU/mL) 6 Weeks (158-54074 mIU/mL) 7 Weeks (3697-368860 mIU/mL) 8 Weeks (25675-718513 mIU/mL) 9 Weeks (68426-360445 mIU/mL) 10 Weeks (90892-880465 mIU/mL) 12 Weeks (53997-020490 mIU/mL) Referenced to 4th IS of [facility] Performed By: #### 2 1198-7 ####[facility] LABIA [id number] [address] [place] 01-24-2024 BRANDON Telephone (OBGYWSandra) ----- SEDA DE LEÓN ([id number]) 1995 F T Date Time Provider Department 01/24/24 KAYY LONGO During your visit today, we recorded the following information about you: Inna Horne RN 01/24/2024 9:56 AM Signed Patient states that she has not had a period since she delivered June 2023. Calling to report that she had a faint +UPT and a week later, another faint +UPT. She has a Pelvic US on 12/16/23 for a left ovarian cyst. Not using contraception. Interested in discussing if she is not . Denies experiencing any symptoms. Having some left sided pain, but believes that's from her cyst. HCG pending if appropriate. KEYONAN Barrios Renee, APRN.FLORECITA 01/24/2024 10:18 AM Signed Ordered filed. She can stop by and have that done at any time. Kayy Longo APRN.Steve Villasenor RN 01/24/2024 10:37 AM Signed Patient notified and voiced understanding. Steve Bolivar RN Allergies As of Date: 01/24/2024 Noted Allergy Reaction CEFDINIR 04/11/2012 11 - Vomiting MORPHINE 05/15/2013 4 - Hives 12 - Shortness of Breath Comments: given medication at [facility] ER and reacted PEANUTS 12/18/2014 7 - Swelling Comments: redness Date Reviewed: 09/13/2023 Reviewed by: Maritza Schneider MA - Fully Assessed Reason for Visit: Missed Menses [Other] Primary Visit Diagnosis:Missed menses [N92.6] Order(s):HCG QUANTITATIVE [SQHCGQT] Order #: [id number] FUTURE Prescriptions as of 01/24/2024 - ferrous sulfate 325 mg (65 mg iron) tablet Take 325 mg by mouth once daily. - vit/iron fum/folic ac (-FOLIC ACID ORAL) Take by mouth. - acetaminophen (TYLENOL) 325 mg tablet Take 650 mg by mouth every 6 hours as needed. Problem List As Of Date 01/24/2024 Noted Resolved Spondylolysis of lumbar region [M43.06] 06/25/2011 10/31/2019 Lumbago [M54.50] 07/07/2011 06/21/2018 Tendonitis, Achilles, left [M76.62] 01/10/2013 06/21/2018 Mononucleosis [B27.90] 05/17/2013 06/21/2018 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HCC) [Q07.01] 07/10/2013 Bleeding in early [O20.9] 12/30/2017 06/21/2018 Patient request for diagnostic testing [Z01.89] 12/30/2017 08/15/2019 Childhood asthma without complication [J45.909] 01/03/2018 10/31/2019 Rh negative state in antepartum period [O26.899*01/17/2018 Abnormal glucose measurement [R73.09] 05/31/2018 08/05/2018 Short interval between pregnancies affecting pr*06/15/2018 10/31/2019 Shortness of breath [R06.02] 06/15/2018 07/05/2018 Polyhydramnios in third trimester [O40.3XX0] 07/05/2018 History of gestational hypertension [Z87.59] 03/16/2019 Morbid obesity (HCC) [E66.01] 03/22/2019 10/16/2022 Acute upper respiratory infection [J06.9] 06/29/2019 10/31/2019 Well adult exam [Z00.00] 05/16/2020 10/16/2022 Hx of gestational diabetes mellitus, not curren*05/16/2020 01/29/2023 Onychomycosis [B35.1] 11/29/2020 01/29/2023 COVID-19 virus infection [U07.1] 03/26/2021 01/29/2023 Obesity, Class III, BMI >= 40 [E66.01] 08/04/2022 10/16/2022 Morbid obesity with BMI of 40.0-44.9, adult (HC*08/20/2022 10/16/2022 History of gastric bypass [Z98.84] 01/01/2023 Pre-syncope [R55] 05/03/2023 27 weeks gestation of [Z3A.27] 05/03/2023 06/21/2023 Anemia [D64.9] 05/04/2023 Maternal iron deficiency anemia complicating pr*05/04/2023 Impaired intestinal absorption [K90.9] 05/04/2023 Insulin controlled gestational diabetes mellitu*05/19/2023 Anemia during in second trimester [O9*05/19/2023 Encounter Status:Closed by STEVE BOLIVAR on 01/24/24 [facility] 12-17-2023 CNPN Telephone (OBGYWM) ----- SEDA DE LEÓN ([id number]) 1995 F T Date Time Provider Department 12/17/23 KAYY LONGO During your visit today, we recorded the following information about you: Kayy Longo APRN.CNP 12/17/2023 7:50 AM Signed Please let the patient know that the ovarian cyst has slightly increased in size I would like to repeat the ultrasound in another 12 weeks. Please review torsion precautions with patient. Kayy Longo APRN.FLORECITA Yee Egan, ELLEN 12/17/2023 9:01 AM Signed Left message to call office Polo Soto RN 12/28/2023 8:48 AM Signed Left message for patient to call office or check mychart. Polo Soto RN Allergies As of Date: 12/17/2023 Noted Allergy Reaction CEFDINIR 04/11/2012 11 - Vomiting MORPHINE 05/15/2013 4 - Hives 12 - Shortness of Breath Comments: given medication at [facility] and reacted PEANUTS 12/18/2014 7 - Swelling Comments: redness Date Reviewed: 09/13/2023 Reviewed by: Maritza Schneider MA - Fully Assessed Reason for Visit: Results [95] Primary Visit Diagnosis:Ovarian cyst, left [N83.202] Order(s):PELVIC US [facility] [[id number]] Order #: [id number]: 1 FUTURE Prescriptions as of 12/28/2023 - ferrous sulfate 325 mg (65 mg iron) tablet Take 325 mg by mouth once daily. - vit/iron fum/folic ac (-FOLIC ACID ORAL) Take by mouth. - acetaminophen (TYLENOL) 325 mg tablet Take 650 mg by mouth every 6 hours as needed. Problem List As Of Date 12/17/2023 Noted Resolved Spondylolysis of lumbar region [M43.06] 06/25/2011 10/31/2019 Lumbago [M54.50] 07/07/2011 06/21/2018 Tendonitis, Achilles, left [M76.62] 01/10/2013 06/21/2018 Mononucleosis [B27.90] 05/17/2013 06/21/2018 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HCC) [Q07.01] 07/10/2013 Bleeding in early [O20.9] 12/30/2017 06/21/2018 Patient request for diagnostic testing [Z01.89] 12/30/2017 08/15/2019 Childhood asthma without complication [J45.909] 01/03/2018 10/31/2019 Rh negative state in antepartum period [O26.899*01/17/2018 Abnormal glucose measurement [R73.09] 05/31/2018 08/05/2018 Short interval between pregnancies affecting pr*06/15/2018 10/31/2019 Shortness of breath [R06.02] 06/15/2018 07/05/2018 Polyhydramnios in third trimester [O40.3XX0] 07/05/2018 History of gestational hypertension [Z87.59] 03/16/2019 Morbid obesity (HCC) [E66.01] 03/22/2019 10/16/2022 Acute upper respiratory infection [J06.9] 06/29/2019 10/31/2019 Well adult exam [Z00.00] 05/16/2020 10/16/2022 Hx of gestational diabetes mellitus, not curren*05/16/2020 01/29/2023 Onychomycosis [B35.1] 11/29/2020 01/29/2023 COVID-19 virus infection [U07.1] 03/26/2021 01/29/2023 Obesity, Class III, BMI >= 40 [E66.01] 08/04/2022 10/16/2022 Morbid obesity with BMI of 40.0-44.9, adult (HC*08/20/2022 10/16/2022 History of gastric bypass [Z98.84] 01/01/2023 Pre-syncope [R55] 05/03/2023 27 weeks gestation of [Z3A.27] 05/03/2023 06/21/2023 Anemia [D64.9] 05/04/2023 Maternal iron deficiency anemia complicating pr*05/04/2023 Impaired intestinal absorption [K90.9] 05/04/2023 Insulin controlled gestational diabetes mellitu*05/19/2023 Anemia during in second trimester [O9*05/19/2023 Encounter Status:Closed by POLO SOTO on 12/28/23 Normal [facility] US [facility]vison 12-16-2023 Indication Follow-up on ovarian cyst Impression Normal appearing anteverted uterus that measures 93 mm x 50 mm x 66 mm. Asymmetrically thickened myometrium which is suggestive of adenomyosis. Endometrium meaures 17.4 mm. Normal endometrial contour. Normal appearing right ovary that contains a 23 x 21 x 19 mm corpus luteum cyst. Left ovary contains a 64 x 77 x 62 mm simple paraovarian/paratubal cyst. No adnexal masses were observed. There is no free fluid visualized in the peritoneal cavity. Comparison to ultrasound on 10/01/2023: Normal appearing left ovary with a 56 x 55 x 34 mm paraovarian/paratubal unilocular simple cyst. Recommendations O-RADS 2 left ovarian simple cyst, almost certainly benign. Follow up ultrasound is recommended in 12 months due to size of cyst. History Previous Outcomes Children born living ?37w 1 Other: Mode of last delivery: Vaginal Delivery Method transvaginal, 3D ultrasound examination, Color Doppler examination. View: Adequate visualization Uterus Uterus: Visualized Uterus position: anteverted Description of uterine malformations: none Myometrium: asymmetrically thickened Endometrium: thickened Cervix details: normal Uterus length 93 mm Uterus width 66 mm Uterus height 50 mm Uterus Vol 162.3 cm Endometrial thickness, total 17.4 mm Fibroids: No fibroids identified Polyps: No polyps identified Right Ovary Rt ovary: Visualized Rt ovary D1 23 mm Rt ovary D2 19 mm Rt ovary D3 21 mm Rt ovary Vol 4.8 cm Rt ovarian corpus luteum: purely cystic Rt ovarian corpus luteum D1 23.0 mm Rt ovarian corpus luteum D2 21.0 mm Rt ovarian corpus luteum D3 19.0 mm Left Ovary Lt ovary: Visualized Lt ovary morphology: premenopausal normal follicular Lt ovary D1 32 mm Lt ovary D2 16 mm Lt ovary D3 14 mm Lt ovary Vol 3.9 cm Lt ovarian cyst D1 64 mm Lt ovarian cyst D2 77 mm Lt ovarian cyst D3 62 mm Lt ovarian cyst mean 67.7 mm Lt ovarian cyst vol 159.978 cm Lt ovarian cyst findings: Simple paraovarian/paratubal cyst Cul de Sac Visualized. no free fluid visualized Performed By: Niki Lucio RDMS Read By: Reyna Greene M.D. MATERNAL MEDICINE [facility] Radiology Study observation (narrative) [facility] [place] 10-04-2023 [facility] Telephone (OBGYWM) ----- SEDA DE LEÓN ([id number]) 1995 F CHT Date Time Provider Department 10/04/23 KAYY LONGO During your visit today, we recorded the following information about you: Kayy Longo APRN.CNP 10/04/2023 2:04 PM Signed Please let the pt know that there is a cyst on the left ovary which is the likely reason for the pain she is having. I would like her to repeat the US in 10 weeks to monitor cyst. No treatment at this time. THU Lynn Tara, RN 10/04/2023 2:28 PM Signed Pt notified and pelvic u/s appt made. Seda Cardoza RN Allergies As of Date: 10/04/2023 Noted Allergy Reaction CEFDINIR 04/11/2012 11 - Vomiting MORPHINE 05/15/2013 4 - Hives 12 - Shortness of Breath Comments: given medication at [facility] and reacted PEANUTS 12/18/2014 7 - Swelling Comments: redness Date Reviewed: 09/13/2023 Reviewed by: Maritza Schneider MA - Fully Assessed Reason for Visit: Results [95] Primary Visit Diagnosis:Ovarian cyst, left [N83.202] Order(s):PELVIC US I [[id number]] Order #: [id number]: 1 FUTURE Prescriptions as of 10/04/2023 - ferrous sulfate 325 mg (65 mg iron) tablet Take 325 mg by mouth once daily. - vit/iron fum/folic ac (-FOLIC ACID ORAL) Take by mouth. - acetaminophen (TYLENOL) 325 mg tablet Take 650 mg by mouth every 6 hours as needed. Problem List As Of Date 10/04/2023 Noted Resolved Spondylolysis of lumbar region [M43.06] 06/25/2011 10/31/2019 Lumbago [M54.50] 07/07/2011 06/21/2018 Tendonitis, Achilles, left [M76.62] 01/10/2013 06/21/2018 Mononucleosis [B27.90] 05/17/2013 06/21/2018 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HCC) [Q07.01] 07/10/2013 Bleeding in early [O20.9] 12/30/2017 06/21/2018 Patient request for diagnostic testing [Z01.89] 12/30/2017 08/15/2019 Childhood asthma without complication [J45.909] 01/03/2018 10/31/2019 Rh negative state in antepartum period [O26.899*01/17/2018 Abnormal glucose measurement [R73.09] 05/31/2018 08/05/2018 Short interval between pregnancies affecting pr*06/15/2018 10/31/2019 Shortness of breath [R06.02] 06/15/2018 07/05/2018 Polyhydramnios in third trimester [O40.3XX0] 07/05/2018 History of gestational hypertension [Z87.59] 03/16/2019 Morbid obesity (HCC) [E66.01] 03/22/2019 10/16/2022 Acute upper respiratory infection [J06.9] 06/29/2019 10/31/2019 Well adult exam [Z00.00] 05/16/2020 10/16/2022 Hx of gestational diabetes mellitus, not curren*05/16/2020 01/29/2023 Onychomycosis [B35.1] 11/29/2020 01/29/2023 COVID-19 virus infection [U07.1] 03/26/2021 01/29/2023 Obesity, Class III, BMI >= 40 [E66.01] 08/04/2022 10/16/2022 Morbid obesity with BMI of 40.0-44.9, adult (HC*08/20/2022 10/16/2022 History of gastric bypass [Z98.84] 01/01/2023 Pre-syncope [R55] 05/03/2023 27 weeks gestation of [Z3A.27] 05/03/2023 06/21/2023 Anemia [D64.9] 05/04/2023 Maternal iron deficiency anemia complicating pr*05/04/2023 Impaired intestinal absorption [K90.9] 05/04/2023 Insulin controlled gestational diabetes mellitu*05/19/2023 Anemia during in second trimester [O9*05/19/2023 Encounter Status:Closed by SEDA CARDOZA on 10/04/23 Normal [facility]vison 10-02-2023 Indication Pelvic pain- left lower quadrant Impression Normal appearing anteverted uterus that measures 83 mm x 38 mm x 55 mm. Endometrium has a normal trilaminar appearance and measures 2.9 mm. Arcuate endometrial contour. Normal appearing right ovary. Normal appearing left ovary with a 56 x 55 x 34 mm paraovarian/paratubal unilocular simple cyst. No adnexal masses were observed. There is no free fluid visualized in the peritoneal cavity. Recommendations O-RADS 2 left ovarian simple cyst, almost certainly benign. Follow up ultrasound is recommended in 12 months due to size of cyst. History Previous Outcomes Children born living ?37w 1 Other: Mode of last delivery: Vaginal Delivery Menstrual History Cycle: LMP date not known Method Transabdominal, transvaginal, 3D ultrasound examination, Color Doppler examination. View: Adequate visualization Uterus Uterus: Visualized Uterus position: anteverted Description of uterine malformations: arcuate Myometrium: normal Endometrium: normal Cervix details: normal Uterus length 83 mm Uterus width 55 mm Uterus height 38 mm Uterus Vol 90.4 cm Endometrial thickness, total 2.9 mm Fibroids: No fibroids identified Polyps: No polyps identified Right Ovary Rt ovary: Visualized Rt ovary morphology: premenopausal normal follicular Rt ovary D1 25 mm Rt ovary D2 18 mm Rt ovary D3 26 mm Rt ovary Vol 6.1 cm Left Ovary Lt ovary: Visualized Lt ovary morphology: premenopausal normal follicular Lt ovary D1 19 mm Lt ovary D2 19 mm Lt ovary D3 24 mm Lt ovary Vol 4.4 cm Lt ovarian cyst(s): Cysts identified Lt ovarian cyst D1 56 mm Lt ovarian cyst D2 55 mm Lt ovarian cyst D3 34 mm Lt ovarian cyst mean 48.3 mm Lt ovarian cyst vol 54.831 cm Lt ovarian cyst findings: Simple paraovarian/paratubal cyst Cul de Sac Visualized. no free fluid visualized Performed By: Niki Lucio RDMS Read By: Reyna Greene M.D. MATERNAL MEDICINE [facility] US [facility] 10-01-2023 Radiology Study observation (narrative) [facility] CNOVon 09-13-2023 CNOV Office Visit (OBGYWM ) ----- SEDA DE LEÓN ([id number]) 1995 F CHT Date Time Provider Department 09/13/23 10:15 AM KAYY LONGO OBGYWSandra During your visit today, we recorded the following information about you: Blood pressure Weight 120/70 68.3 kg Kayy Longo, RAYMOND.BLENDER LABORER 09/13/2023 10:42 AM Signed Commercial Installer offered: Patient declines. Seda De León is a 28 year old female who presents for problem visit left side pelvic pain for 3 week(s). HPI: pain started about 3-4 wks that comes and goes. The pain ranges from cramping to sharp. She is now noticing the pain more often. Denies any vaginal bleeding. 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 Continue to monitor. No Hemabate. SW Concussion 2009 COVID-19 virus infection 03/26/202103/2021 Diet controlled gestational diabetes mellitus (GDM) in third trimester 08/16/2019 Gestational hypertension History of gestational hypertension 03/16/2019 Hx of gestational diabetes mellitus, not currently [...] Other MGGMo Anesthesia Problems No Family History Social History Tobacco Use Smoking status: Never Smokeless tobacco: Never Vaping Use Vaping Use: Never used Substance Use Topics Alcohol use: No Drug use: No Current Outpatient Medications Medication Sig ferrous sulfate 325 mg (65 mg iron) tablet Take 325 mg by mouth once daily. vit/iron fum/folic ac (-FOLIC ACID ORAL) Take by mouth. acetaminophen (TYLENOL) 325 mg tablet Take 650 mg by mouth every 6 hours as needed. insulin NPH subcutaneous pen Inject 76 Units subcutaneously as directed. Inject 50 units before breakfast and 26 units at night (Patient not taking: Reported on 07/13/2023) insulin needles, DISPOSABLE, (PEN NEEDLE) 31 gauge x 5/16 1 Each once daily. (Patient not taking: Reported on 07/13/2023) oxymetazoline (AFRIN, OXYMETAZOLINE,) 0.05 % nasal spray Use 2-3 Sprays in each nostril two times a day. Use as directed. For a maximum of 3 (three) days. (Patient not taking: Reported on 07/13/2023) BABY ASPIRIN ORAL Take 81 mg by mouth once daily. (Patient not taking: Reported on 07/13/2023) No current facility-administered medications for this visit. Allergies As of Date: 09/13/2023 Allergen Noted Reaction CEFDINIR 04/11/2012 Vomiting MORPHINE 05/15/2013 Hives and Shortness of Breath PEANUTS 12/18/2014 Swelling Fully Assessed 09/13/2023 REVIEW OF SYSTEMS Expanded ROS: N/A Allergies and current medication updated:Yes EXAM: BP 120/70 Wt 150 lb 9.6 oz (68.3kg) LMP 10/20/2022 GENERAL: pleasant, female in no apparent distress HEENT: Normocephalic, atraumatic, mucus membranes moist, and no lesions CHEST: Normal inspiratory effort ABDOMEN: soft, no masses, and Mild tenderness in LLQ, suprapubic area PELVIC: external genitalia normal, normal Bartholin's glands, urethra, [place]'s glands, no vulvar lesions, no cervical lesions, good vaginal support, physiologic discharge present, normal appearing perineal body and perianal region BIMANUAL: uterus normal size, shape and consistency, no adnexal masses, non-tender, and Mild tenderness NEURO: alert and oriented x3,exam grossly non-focal EXTREMITIES: normal ASSESSMENT/PLAN: 1. Pelvic pain in female - ICD9: 625.9, ICD10: R10.2 - PELVIC US WHI Will notify patient of test results. Kayy Longo APRN.FLORECITA Medical Decision Making: Problems: Low: Acute, uncomplicated illness or injury Data: Unique test(s) ordered: 1 Risk: Low: Low risk from testing/treatment Medical Decision Making Level: 3 - Low Allergies As of Date: 09/13/2023 Noted Allergy Reaction CEFDINIR 04/11/2012 11 - Vomiting MORPHINE 05/15/2013 4 - Hives 12 - Shor (more content not included)... Normal [facility] MR/HARPREET.Sheri 08-17-2023 MR/HARPREET.[facility] [address] [place] [address] OFFICE VISIT Date of Service: 08/11/23 MR#: [id number] Acct: [id number] Name: SEDA DE LEÓN Rep #: [id number] : 1995 Provider: Margaret Clay NP Age/Sex: 28/F Location: [facility] Status: Signed Intake Vital Signs 07/04/23 07:11 08/17/23 09:57 Height 5 ft 3 in 5 ft 3 in Intake Visit Reasons: assessment Chief Complaint: assessment Allergies cefdinir Allergy (Verified 06/11/23 22:20) Vomiting morphine Allergy (Verified 06/11/23 22:20) Rash peanut Allergy (Verified 06/11/23 22:20) Anaphylaxis : Yes PFSH PFSH Medical History (Updated 07/10/23 @ 00:04 by Background Daemon) Polyhydramnios Gestational diabetes Gestational diabetes Surgical History (Updated 07/10/23 @ 00:04 by Background Daemon) Gastric bypass status for obesity History of cholecystectomy Social History household members: children Smoking Status: Never smoker History Elective abortions Hx Para 2 Spontaneous abortions Hx # Term Pregnancies Ectopic pregnancies Hx # Pregnancies Multiple births # of living children HPI HPI HPI: SEDA REHARD, is a 28 F who presents to the office today for assessment. Would like to transition baby to nursing more at breast, has been having to fortify breastmilk d/t baby having sl ow weight gain. History provided by the patient. ROS ROS Const Constitutional: Denies fever(s) or lethargy : Denies nipple discharge Skin Skin/Breast: Denies breast pain, breast skin changes or nipple discharge Details: currently patient is bottle feeding 3 oz fortified breastmilk q 3 hours, to 24cal/oz, would like to transition to exclusisve if able, patient has oversupply, getting 10-12 oz q 4 hours with pumping, minimal nipple pain with feeds and baby is tongue tied , currently latching 3-4x per day for 10 minutes usually after bottle feeds Exam Maternal Assessment Breast Assessment Bilateral Breasts: Full Nipple Assessment Bilateral Nipples: Everted Areolar Tissue Areolar Tissue: Pliable Assessment Baby Feeding History Is your baby latching onto the breast: Yes Number of Breast Feedings in 24 hours: 3-4 Minutes per breast: First Breast: 10 Supplements Supplement Type:: Expressed milk (fortified to 24 tomy/oz) Frequency: q 3 hours Amount: 3 oz Breast Pumping Type of Breast Pump: Spectra, Medela Frequency: q 4 hours Amount: 10-12 oz Reason for supplements or pumping:: Bottle feeding d/t weight gain concerns Goals Breast Feeding Goals: Exclusive Exam Const General: comfortable and no acute distress Orientation: alert and oriented x3 Chest Breast inspection: normal inspection of the breasts Breast palpation: normal palpation of the breasts Resp Effort Inspection: normal respiratory effort Skin General: no rashes or lesions noted Psych Appearance: grossly normal Mental Status: mental status grossly normal Affect: normal affect Assessment and Plan Assessment and Plan (1) Care and examination of lactating mother: Plan: Latch Score L - Latch Latch: Grasps breast, tongue down, lips flanged, rhymic sucking (2) A - Audible Swallowing Audible Swallowing: Spontaneous intermittent <24 hrs, spontaneous frequent >24 hrs (2) T - Type of Nipple Type of Nipple: Everted (after stimulation) (2) C - Comfort (Breast/Nipple) Comfort (Breast/Nipple): Soft and/or tender (2) H - Hold (Positioning) Hold (Positioning): No assist from staff, mother able to position/hold (2) Total Score Total Score:: 10 Observation Feeding Observed:: Yes Educated on feeding plan, goal to feed 1x per day at breast and continue all other bottles at 24 tomy/oz d/t baby having such difficulty with weight each time has tried to wean down to 22 tomy/oz. Educated on oversupply. Follow up in 1 week or sooner as needed. Coding Level of Care Code 65338 PRVT COUNSELING INDIVID Diagnoses Care and examination of lactating mother Z39.1 Time Spent (min) 08/17/23 0959 Date Margaret Clay RESIDENT PROGRAMS ASSISTANT RESIDENT PROGRAMS ASSISTANT-C Cosigner Signature: Date (if applicable) CC: Normal [facility] Bedside Glucoseon 07-05-2023 FINGERSTICK GLU 74 mg/dL Normal 74-106 [facility] Comment on above: Result Comment: BETO MCKNIGHT OF PATIENT CARE PER NURSING PROTOCOL Performed By: #### L 501.080 #### [facility] [address] [place], [place], [id number] Thin prep Papanicolaou smear with manual screeningOrdered By: Sandra Edwards on 07-05-2023 Thin prep Papanicolaou smear with manual screening 74 mg/dL 74-106 [facility] Comment on above: MANAGEMENT OF PATIEN T CARE PER NURSING PROTOCOL (ROM) Rupture Of Membraneson 07-04-2023 C-LINE PRESENT? Normal Internal QC [facility] Comment on above: Result Comment: NOT NEEDED PER WP Performed By: #### B [id number], BTS, L100.0100 #### [facility] [address] [place], [place], [id number] RECORD KIT LOT# Normal [facility] Comment on above: Result Comment: NOT NEEDED PER WP Performed By: #### B [id number], BTS, L100.0100 #### [facility] [address] [place], [address] ROM Normal Negative [facility] Comment on above: Result Comment: NOT NEEDED PER WP Performed By: #### B [id number], BTS, L100.0100 #### [facility] [address] [place], [address] Absolute lymphocyte countOrd ered By: Sandra Edwards on 07-04-2023 Lymphocytes Auto (Unsp spec) [#/Vol] 2.09 10*3/uL 0.83-4.51 [facility] Activated partial thrombopla stin time (aPTT) in platelet poor plasma by coagulation aOrdered By: Sandra Edwards on 07-04-2023 aPTT Coag (PPP) [Time] 27.3 s 24.1-36.2 [facility] Automated blood erythrocyte count (number/volume)Ordered By: Sandra Edwards on 07-04-2023 RBC (Bld) [#/Vol] 4.09 10*6/uL Low 4.2-5.4 [facility] Comment on above: Performed By: #### B [id number], BTS, L100.0100 #### [facility] [address] [place], [address] Automated blood hematocrit ( percentage)Ordered By: Sandra Edwards on 07-04-2023 Hematocrit (Bld) [Volume fraction] 34.3 % Low 37-47 [facility] Comment on above: Performed By: #### B [id number], BTS, L100.0100 #### [facility] [address] [place], [address] Automated lymphocyte count a s percentage of total leukocytesOrdered By: Sandra Edwards on 07-04-2023 Lymphocytes/100 WBC Auto (Unsp spec) 16.4 % 19-41 [facility] [id number] 07-04-2023 ANTIBODY ID D Normal [facility] Comment on above: Order Comment: Labor Performed By: #### B [id number], BTS, L100.0100 #### [facility] [address] [place], [address] BRho(D) IGon 07-04-2023 Rho(D) IG Normal [facility] Comment on above: Result Comment: [id number] Rho(D) IG PRSMD TRFSD 07/04/23 1825 Performed By: #### B [id number], BTS, L100.0100 #### [facility] [address] [place], [address] Basophil percentageOrdered B y: Sandra Edwards on 07-04-2023 Basophils/100 WBC (Bld) 0.4 % Normal 0-1 [facility] Comment on above: Performed By: #### B [id number], BTS, L100.0100 #### [facility] [address] [place], [address] Eosinophils/100 WBC (Bld) 0.7 % Normal 0-5 [facility] Comment on above: Performed By: #### B [id number], BTS, L100.0100 #### [facility] [address] [place], [address] Hemoglobin (Bld) [Mass/Vol] 10.6 g/dL Low 12.0-15.0 [facility] Comment on above: Performed By: #### B [id number], BTS, L100.0100 #### [facility] [address] [place], [address] Monocytes/100 WBC (Bld) 7.4 % Normal 0-10 [facility] Comment on above: Performed By: #### B [id number], BTS, L100.0100 #### [facility] [address] [place], [address] Neutrophils/100 WBC (Bld) 74.6 % High 47-70 [facility] Comment on above: Performed By: #### B [id number], BTS, L100.0100 #### [facility] [address] [place], [address] WBC (Bld) [#/Vol] 12.7 10*3/uL High 4.4-11.0 [facility] Comment on above: Performed By: #### B [id number], BTS, L100.0100 #### [facility] [address] [place], [address] Neutrophils (Bld) [#/Vol] 9.5 10*3/uL 2.0-7.7 [facility] Bedside Glucoseon 07-04-2023 FINGERSTICK GLU 124 mg/dL High 74-106 [facility] Comment on above: Result Comment: BETO GEMENT OF PATIENT CARE PER NURSING PROTOCOL Performed By: #### L 501.080 #### [facility] [address] [place], [address] FINGERSTICK GLU 66 mg/dL Low 74-106 [facility] Comment on above: Result Comment: BETO GEMENT OF PATIENT CARE PER NURSING PROTOCOL Performed By: #### L 501.080 #### [facility] [address] [place], [address] FINGERSTICK GLU 71 mg/dL Low 74-106 [facility] Comment on above: Result Comment: BETO GEMENT OF PATIENT CARE PER NURSING PROTOCOL Performed By: #### B [id number], BTS, L100.0100 #### [facility] [address] [place], [address] FINGERSTICK GLU 75 mg/dL Normal 74-106 [facility] Comment on above: Result Comment: BETO GEMENT OF PATIENT CARE PER NURSING PROTOCOL Performed By: #### L 501.080 #### [facility] [address] [place], [address] CBC W/Diff, Automatedon 04-2 Absolute Lymph 2.09 X10 3/uL Normal 0.83-4.51 [facility] Comment on above: Performed By: #### B [id number], BTS, L100.0100 #### [facility] [address] [place], [address] Absolute Neut 9.5 X10 3/uL High 2.0-7.7 [facility] Comment on above: Performed By: #### B [id number], BTS, L100.0100 #### [facility] [address] [place], [address] IG% 0.500 Normal 0.0-0.9 [facility] Comment on above: Result Comment: IG% - Immature Granulocytes (promyelocytes, myelocytes and metamyelocytes) > 1% indicates that a LEFT SHIFT is Present. Performed By: #### B [id number], BTS, L100.0100 #### [facility] [address] [place], [address] Lymphocytes/100 WBC (Bld) 16.4 % Low 19-41 [facility] Comment on above: Performed By: #### B [id number], BTS, L100.0100 #### [facility] [address] [place], [address] Nucleated RBC (Bld) [#/Vol] 0 10*3/uL Normal 0-5 [facility] Comment on above: Performed By: #### B [id number], BTS, L100.0100 #### [facility] [address] [place], [address] RDW SD 61.1 fl High 35.1-43.9 [facility] Comment on above: Performed By: #### B [id number], BTS, L100.0100 #### [facility] [address] [place], [address] CBC W/Diff, AutomatedOrdered By: Sandra Edwards on 07-04-2023 MCH (RBC) [Entitic mass] 25.9 pg Low 27.0-32.0 [facility] Comment on above: Performed By: #### B [id number], BTS, L100.0100 #### [facility] [address] [place], [address] MCHC (RBC) [Mass/Vol] 30.9 g/dL Low 32-36 [facility] Comment on above: Performed By: #### B [id number], BTS, L100.0100 #### [facility] [address] [place], [address] Platelet mean volume (Bld) [Entitic vol] 10.0 fL Normal 6.2-12.0 [facility] Comment on above: Performed By: #### B [id number], BTS, L100.0100 #### [facility] [address] [place], [address] Platelets (Bld) [#/Vol] 285 10*3/uL Normal 150-450 [facility] Comment on above: Performed By: #### B [id number], BTS, L100.0100 #### [facility] [address] [place], [address] Determination of erythrocyte mean corpuscular volume (MCV)Ordered By: Sandra Edwards on 07-04-2023 MCV (RBC) [Entitic vol] 83.9 fL Normal 81-99 [facility] Comment on above: Performed By: #### B [id number], BTS, L100.0100 #### [facility] [address] [place], [address] Erythrocyte distribution wid th ratioOrdered By: Sandra Edwards on 07-04-2023 Erythrocyte distribution width (RBC) [Ratio] 19.9 % High 11.6-14.6 [facility] Comment on above: Performed By: #### B [id number], BTS, L100.0100 #### [facility] [address] [place], [address] Erythrocyte distribution wid th standard deviationOrdered By: Sandra Edwards on 07-04-2023 Erythrocyte distribution width (RBC) [Entitic vol] 61.1 fL 35.1-43.9 [facility] FibrinogenOrdered By: Sandra jackson on 07-04-2023 Fibrinogen 529 mg/dl High 203-444 [facility] Comment on above: Performed By: #### L 300.4700, L300.3900, L300.4310 #### [facility] [address] [place], [address] H AND P Exam - OB/GYNon 06-14 H&P Exam - TOOL AND DIE DESIGNER [facility] Medical Records Department [address] [place] [address] H P Exam - TOOL AND DIE DESIGNER 07/04/23 0850 MR#: [id number] Acct: [id number] Name: SEDA DE LEÓN Rep #: [id number] : 1995 28 From: Sandra Edwards DO PCP: SHAYY Alejandro Status:ADM IN Location: [id number] HPI - General General Date of Service: 07/04/23 Chief Complaint: bleeding HPI Narrative SEDA DE LEÓN, is a 28 F who presents with vaginal bleeding. The patient is a who presents at 36w5d with bleeding. She states she woke up this morning after feeling a gush and noticed blood soaking through her pants, and onto her bed. She is feeling ctx's as well. No leaking fluid. Good FM. DIEGO from Wednesday has improved. Maternal Data Information BELEM Calculator Estimated Delivery Date Method Current WG Current Estimate 07/27/23 Manual 36w 5d PFSH PFSH Medical History (Updated 07/04/23 @ 09:[address] Sandra Edwards, DO) Gestational diabetes Gestational diabetes Polyhydramnios Home Medications vit no.95-ferrous fumarate 28 mg-folic acid 800 mcg tablet ( Multivitamins) 1 ea PO DAILY 02/14/18 [History Last Taken 10/16/19] acetaminophen 500 mg tablet 500 mg PO Q4H PRN PRN Pain Or Fever 05/24/19 [History Last Taken 05/24/19] aspirin 81 mg tablet,delayed release (Adult Low Dose Aspirin) 81 mg PO DAILY 05/17/23 [History Last Taken Unknown] ferrous sulfate 325 mg (65 mg iron) tablet (Feosol) 325 mg PO DAILY 05/17/23 [History Last Taken Unknown] insulin NPH isoph U-100 human 100 unit/mL (3 mL) subcutaneous pen (Humulin N NPH U-100 Insulin KwikPen) 16 unit subcut QHS Diabetes 07/04/23 [History Last Taken Unknown] insulin NPH isoph U-100 human 100 unit/mL (3 mL) subcutaneous pen (Humulin N NPH U-100 Insulin KwikPen) 50 unit subcut BREAKFAST Diabetes 07/04/23 [History Last Taken 07/03/23] Allergy/AdvReac Type Severity Reaction Status Date / Time cefdinir Allergy Vomiting Verified 06/11/23 22:20 morphine Allergy Rash Verified 06/11/23 22:20 peanut Allergy Anaphylaxis Verified 06/11/23 22:20 Surgical History (Updated 07/04/23 @ 08:26 by Melany Goyla) Gastric bypass status for obesity History of cholecystectomy Social History household members: children Smoking Status: Never smoker History Elective abortions Hx Para 2 Spontaneous abortions Hx # Term Pregnancies Ectopic pregnancies Hx # Pregnancies Multiple births # of living children NST FHR Rate Baby A Baseline: 140 Variability:: Moderate Accelerations:: 15 x 15 Decelerations:: None NST Reactive:: Yes FHR Category:: Category I Uterine Activity:: ctx's q 1-3 min Vital Signs Vital Signs Vital Signs: 07/04/23 07:03 07/04/23 07:03 07/04/23 07:03 Temperature Temperature Source Temporal Pulse Rate 72 Respiratory Rate Blood Pressure 139/95 H BP Systolic 139 BP Diastolic 95 07/04/23 07:03 07/04/23 07:03 07/04/23 08:29 Temperature 97.5 F L Temperature Source Pulse Rate Respiratory Rate 18 Blood Pressure 122/78 H BP Systolic 122 BP Diastolic 78 07/04/23 08:29 07/04/23 08:29 07/04/23 08:29 Temperature Temperature Source Temporal Pulse Rate 80 Respiratory Rate 16 Blood Pressure BP Systolic BP Diastolic 07/04/23 08:29 Temperature 98.9 F Temperature Source Pulse Rate Respiratory Rate Blood Pressure BP Systolic BP Diastolic Weight Weight: 193 lb Body Mass Index (BMI) 34.2 Physical Exam Const alert and no apparent distress General Appearance: comfortable HEENT normocephalic Resp normal respiratory effort GI soft to palpation, non-tender and non-distended Narrative: Cvx 4-. Cervix is soft and posterior. BBOW on exam and unable to palpate head. Labs Labs Labs: Blood Type A NEGATIVE Antibody Screen NEGATIVE Hct 34.3 % (37-47) L Hgb 10.6 g/dL (12.0-15.0) L Obstetrics Ultrasound Syphilis Total Ab Pending Group B Strep DNA Negative (Negative) Rhogam given: Yes Assessment Plan (1) 36 weeks gestation of : PLAN: - Admit for observation - GBS negative on 06/21/23 - Plans epidural for pain control - Cervix 4-5 cm on admission and on 1 hour recheck - Bedside TAUS shows subjective polyhydramnios and vertex presentation - Will recheck again in 2 hours. [place] with ctx's q 1-3 min, however patient comfortable appearing and cervix posterior - Discussed risk of prematurity with delivery at this gestational age - Discussed would not recommend BMZ for lung maturity given insulin requiring GDM and 36w5d (2) Gestational diabet (more content not included)... Normal [facility] Immature granulocytes/100 WB C Auto (Bld)Ordered By: Sandra Edwards on 07-04-2023 Immature granulocytes/100 WBC (Bld) 0.500 % 0.0-0.9 [facility] Comment on above: IG% - Immature Granu locytes (promyelocytes, myelocytes and metamyelocytes) > 1% indicates that a LEFT SHIFT is Present. L509.8000on 07-04-2023 Syphilis Abs Non-Reactive Normal [facility] Comment on above: Performed By: #### B [id number], BTS, L100.0100 #### [facility] [address] [place], [address] Laboratory - CoagulationOrde red By: Sandra Edwards on 07-04-2023 INR Coag (Bld) [Relative time] 1.1 {INR} [facility] Laboratory - Hematology and Cell countsOrdered By: Sandra Edwards on 07-04-2023 Nucleated RBC/100 WBC (Bld) [Ratio] 0 % 0-5 [facility] Operative Reporton 4 Operative Report [facility] Medical Records Department [address] [place] [address] Operative Report 07/04/23 1542 MR#: [id number] Acct: [id number] Name: SEDA DE LEÓN Rep #: [id number] : 1995 28 From: Sandra Edwards DO PCP: SHAYY Alejandro Status:ADM IN Location: [id number] Problems Associated Problem List Diagnoses (1) Vaginal delivery: (2) Vaginal bleeding: (3) History of gestational hypertension: (4) Rh negative state in antepartum period: (5) Polyhydramnios affecting : (6) 36 weeks gestation of : (7) Gestational diabetes requiring insulin: Report of Operation Date of Procedure: 07/04/23 Pre-Operative Diagnosis: 36 week gestation, vaginal bleeding, A2GDM poorly controlled, polyhydramnios Post-Operative Diagnosis: As above Surgery/Procedure Performed:: Vaginal delivery Description of Surgical Findings:: VFI in LEXII position with apgars 8, 9. Clear fluid. Normal appearing placenta. Intact perineum. Surgeon: Sandra Edwards Type of Anesthesia: Epidural Special Medications: None Specimen's removed: Placenta Drains: Guevara Estimated Blood Loss (mL): 100 Fluids Replaced: N/A Description of Procedure: Patient complete and pushing. Head of infant delivered in right occiput anterior position, followed by the shoulders and body spontaneously. A vigorous viable female was delivered atraumatically without any force, traction, or delay. The was placed on maternal abdomen. The cord was clamped and cut after a 60 second delay by the father of the baby. Cord blood was obtained. The placenta was delivered spontaneously and noted to be normal-appearing and intact with three-vessel cord. The uterus was explored x 1. Fundus firm and bleeding hemostatic. No lacerations noted upon inspection. Sponge counts were correct. Vaginal sweep was performed. Grafts/Implants Used: None Complications None Admit VTE Documentation VTE Present on Admission: No 07/04/23 1546 Cosigner Signature (if applicable): CC: Dr. Sandra Edwards DO; SHAYY Alejandro Signed Normal [facility] Partial Thromboplast Timeon 07-04-2023 aPTT Coag (Bld) [Time] 27.3 s Normal 24.1-36.2 [facility] Comment on above: Performed By: #### L 300.4700, L300.3900, L300.4310 #### [facility] [address] [place], [address] Pathology Specimen OBon 06-14 PATH. Spec OB SEE PATHOLOGY REPORT Normal [facility] Comment on above: Order Comment: Send Specimen For (Specify): Studies @ [facility] Lab:RoutineTime of Procedure: 1524Date of Procedure: 07/04/23Reason specimen being sent to pathology (Hx/complications):Possible abruptionType of specimen: PlacentaType of procedure performed: Other Result Comment: Spec imen submitted to Anatomical Pathology Department for testing. Performed By: #### B [id number], BTS, L100.0100 #### [facility] [address] [place], [address] Prothrombin Time w/INRon INR Coag (PPP) [Relative time] 1.1 {INR} Normal [facility] Comment on above: Performed By: #### L 300.4700, L300.3900, L300.4310 #### [facility] [address] [place], [address] Prothrombin Time w/INROrdere d By: Sandra Edwards on 07-04-2023 PT Coag (PPP) [Time] 14.0 s Normal 11.7-14.9 [facility] Comment on above: Performed By: #### L 300.4700, L300.3900, L300.4310 #### [facility] [address] [place], [address] Rh Negative Mom Workupon ABO and Rh group Nom (Bld) Blood group A Rh(D) positive Normal [facility] Comment on above: Order Comment: Labor Performed By: #### B [id number], BTS, L100.0100 #### [facility] [address] [place], [address] DIRECT ANTIGLOB Negative Normal NEGATIVE [facility] Comment on above: Order Comment: Labor Performed By: #### B [id number], BTS, L100.0100 #### [facility] [address] [place], [address] SCREEN Negative Normal NEGATIVE [facility] Comment on above: Order Comment: Labor Performed By: #### B [id number], BTS, L100.0100 #### [facility] [address] [place], [address] ABO and Rh group Nom (Bld) Blood group A Rh(D) negative Normal [facility] Comment on above: Order Comment: Labor Performed By: #### B [id number], BTS, L100.0100 #### [facility] [address] [place], [address] MOM'S ABS Negative Normal [facility] Comment on above: Order Comment: Labor Performed By: #### B [id number], BTS, L100.0100 #### [facility] [address] [place], [address] ABO and Rh group Nom (Bld) Test Not Performed [facility] Comment on above: Order Comment: Labor Result Comment: Canc elled via OM: Order edited - Discontinuing original order Performed By: #### B [id number], BTS, L100.0100 #### [facility] [address] [place], [address] DIRECT ANTIGLOB Not performed Normal NEGATIVE [facility] Comment on above: Order Comment: Labor Result Comment: Canc elled via OM: Order edited - Discontinuing original order Performed By: #### B [id number], BTS, L100.0100 #### [facility] [address] [place], [address] SCREEN Not performed Normal NEGATIVE [facility] Comment on above: Order Comment: Labor Result Comment: Canc elled via OM: Order edited - Discontinuing original order Performed By: #### B [id number], BTS, L100.0100 #### [facility] [address] [place], [address] MOM'S ABS Not performed Normal [facility] Comment on above: Order Comment: Labor Result Comment: Canc elled via OM: Order edited - Discontinuing original order Performed By: #### B [id number], BTS, L100.0100 #### [facility] [address] [place], [address] Serum Treponema species anti body detectionOrdered By: Sandra Edwards on 07-04-2023 Treponema sp Ab Ql (S) Non-Reactive [facility] Surgery Specimen Level Von 0 07-04-2023 Surgery Specimen Level V Patient Age/Sex Location Account Attending Physician SEDA DE LEÓN [id number] Dr. Sandra Edwards DO Specimen: [id number] Received: 07/05/23 Status: JIMI Graham Num: [id number] Spec Type: PLACENTA Subm Dr: Dr. Sandra Edwards DO HEADER OPERATION: Vaginal delivery PRE-OP DIAGNOSIS: Possible abruption TISSUE SUBMITTED: Placenta MICROSCOPIC DIAGNOSIS Placenta: Placental disc - third trimester placenta (555 gm). Membranes - no pathologic diagnosis. Umbilical cord - three blood vessels and no pathologic diagnosis. SJ: 07/07/23 MICROSCOPIC DESCRIPTION Slides are reviewed. GROSS DESCRIPTION SPECIMEN: PLACENTA / CLINICAL INFORMATION: A. Weight: 3.19 kg B. Gestational Age: 36 weeks C. Sex: Female PLACENTAL WEIGHT (POST FIXATION): 555 gm PLACENTAL DIMENSIONS: 19.0 x 16.0 x 4.0 cm PLACENTAL SHAPE: Usual ovoid PLACENTAL WEIGHT FOR GESTATIONAL AGE: Within 10-99th percentile MEMBRANES - Present A. Insertion: Marginal B. Site of rupture from edge: 10.0 cm from edge of placental disc C. Color of membrane: Barba-allison D. Abnormalities: None UMBILICAL CORD - Present A. Color: Barba-allison B. Insertion: Paracentral C. Length: 37.0 cm D. Diameter: 1.2 cm E. Number of vessels: Three F. Abnormalities: None Patient Age/Sex Location Account Attending Physician SEDA DE LEÓN [id number] Dr. Sandra Edwards DO PLACENTAL DISC - Present A. Color of surface: Barba-allison B. surface abnormalities: None C. Maternal cotyledons: Intact with minimal tears D. Attached retro placental clot: No clot E. Cut surface: Dark red and spongy F. Lesions: None G. Separate clot: Absent SECTIONS SUBMITTED: 1. Membrane roll 2. Cord, maternal end 3. Cord, end 4. Placental disc, and maternal surfaces 5. Placental disc, and maternal surfaces 6. Placental disc, and maternal surfaces MOI/ 07/06/2023TC:4 CPT: 96254 Patient Age/Sex Location Account Attending Physician SEDA DE LEÓN [id number] Dr. Sandra Edwards, DO Signed (signature on file) Dr. Jean Claude Godinez MD 07/07/23 1228 Normal [facility] Comment on above: Performed By: #### B [id number], BTS, L100.0100 #### [facility] [address] [place], [place], [address] Type AND Screenon 07-04-2023 ABO and Rh group Nom (Bld) Blood group A Rh(D) negative Normal [facility] Comment on above: Order Comment: Labor Performed By: #### Brian [id number], BTS, L100.0100 #### [facility] [address] [place], [address] AST(SGOT)on 07-02-2023 AST [Catalytic activity/Vol] 14 U/L Low 15-37 [facility] Comment on above: Performed By: #### Brian [id number], BTS, L100.0100 #### [facility] [address] [place], [address] Alanine Aminotransferas (SGP T)on 07-02-2023 ALT [Catalytic activity/Vol] 14 U/L Normal 13-56 [facility] Comment on above: Performed By: #### B [id number], BTS, L100.0100 #### [facility] [address] [place], [address] Basophil percentageOrdered B y: Sandra Jerry on 07-02-2023 Hemoglobin (Bld) [Mass/Vol] 10.5 g/dL 12.0-15.0 [facility] WBC (Bld) [#/Vol] 9.0 10*3/uL 4.4-11.[address] [facility] Blood manual differential co mment interpretation (narrative result)Ordered By: Sandra Edwards on 07-02-2023 Manual differential comment Carlos (Bld) [Interp] SEE COMMENTS [facility] Comment on above: RARE ANISOCYTOSISRAR E MACROCYTOSIS CBC-Complete Blood Cnt No Di ffon 07-02-2023 Erythrocyte distribution width (RBC) [Ratio] 20.1 % High 11.6-14.6 [facility] Comment on above: Performed By: #### B [id number], BTS, L100.0100 #### [facility] [address] [place], [address] Hematocrit (Bld) [Volume fraction] 34.9 % Low 37-47 [facility] Comment on above: Performed By: #### B [id number], BTS, L100.0100 #### [facility] [address] [place], [address] Hemoglobin (Bld) [Mass/Vol] 10.5 g/dL Low 12.0-15.0 [facility] Comment on above: Performed By: #### B [id number], BTS, L100.0100 #### [facility] [address] [place], [address] MCH (RBC) [Entitic mass] 26.0 pg Low 27.0-32.0 [facility] Comment on above: Performed By: #### B [id number], BTS, L100.0100 #### [facility] [address] [place], [address] MCHC (RBC) [Mass/Vol] 30.1 g/dL Low 32-36 [facility] Comment on above: Performed By: #### B [id number], BTS, L100.0100 #### [facility] [address] [place], [address] MCV (RBC) [Entitic vol] 86.4 fL Normal 81-99 [facility] Comment on above: Performed By: #### B [id number], BTS, L100.0100 #### [facility] [address] [place], [address] Platelet mean volume (Bld) [Entitic vol] 10.2 fL Normal 6.2-12.0 [facility] Comment on above: Performed By: #### B [id number], BTS, L100.0100 #### [facility] [address] [place], [address] Platelets (Bld) [#/Vol] 288 10*3/uL Normal 150-450 [facility] Comment on above: Performed By: #### B [id number], BTS, L100.0100 #### [facility] [address] [place], [address] RBC (Bld) [#/Vol] 4.04 10*6/uL Low 4.2-5.4 [facility] Comment on above: Performed By: #### B [id number], BTS, L100.0100 #### [facility] [address] [place], [address] RDW SD 63.0 fl High 35.1-43.9 [facility] Comment on above: Performed By: #### B [id number], BTS, L100.0100 #### [facility] [address] [place], [address] WBC (Bld) [#/Vol] 9.0 10*3/uL Normal 4.4-11.[address] [facility] Comment on above: Performed By: #### B [id number], BTS, L100.0100 #### [facility] [address] [place], [address] Determination of erythrocyte mean corpuscular volume (MCV)Ordered By: Sandra Edwards on 07-02-2023 MCV (RBC) [Entitic vol] 86.4 fL 81-99 [facility] Differential Commenton 07-01 SMEAR COMMENT SEE COMMENTS Normal [facility] Comment on above: Result Comment: RARE ANISOCYTOSIS RARE MACROCYTOSIS Performed By: #### B [id number], BTS, L100.0100 #### [facility] [address] [place], [address] Erythrocyte distribution wid th ratioOrdered By: Sandra Edwards on 07-02-2023 Erythrocyte distribution width (RBC) [Ratio] 20.1 % 11.6-14.6 [facility] Erythrocyte distribution wid th standard deviationOrdered By: Sandra Edwards on 07-02-2023 Erythrocyte distribution width (RBC) [Entitic vol] 63.0 fL 35.1-43.9 [facility] Biophysical profile.hope dy movement USon 07-02-[address] [facility] Hematocrit Auto (Bld) [Volum e fraction]Ordered By: Sandra Edwards on 07-02-2023 Hematocrit (Bld) [Volume fraction] 34.9 % 37-47 [facility] - Chemistry and C hemistry - challengeOrdered By: Sandra Edwards on 07-02-2023 ALT [Catalytic activity/Vol] 14 U/L 13-56 [facility] - Hematology and Cell countsOrdered By: Sandra Edwards on 07-02-2023 MCH (RBC) [Entitic mass] 26.0 pg 27.0-32.0 [facility] MCHC (RBC) [Mass/Vol] 30.1 g/dL 32-36 [facility] Platelet mean volume (Bld) [Entitic vol] 10.2 fL 6.2-12.0 [facility] Platelets (Bld) [#/Vol] 288 10*3/uL 150-450 [facility] No Panel InformationOrdered By: Sandra Edwards on 07-02-2023 Estimated GFR (MDRD) Amer 117 mL/min >60 [facility] Comment on above: GFR Calc Estimated GFR (MDRD) Non-Af Amer 96 mL/min >60 [facility] Comment on above: Non- GFR Calc OB Triage Physician Noteon 0 07-02-2023 OB Triage Physician Note [facility] Medical Records Department [address] [place] [address] OB Triage Physician Note 07/02/23 1548 MR#: [id number] Acct: [id number] Name: SEDA DE LEÓN Rep #: [id number] : 1995 28 From: Sandra Edwards DO PCP: SHAYY Alejandro Status:REG CLI Y Location: [id number] HPI - General General Date of Admission: 07/02/23 Date of Service: 07/02/23 Chief Complaint: rule out pre e HPI Narrative SEDA DE LEÓN, is a 28 F who presents with a headache. She has had an off and on headache for a few days. She says today the headache feels different because it is more generalized rather than frontal. She feels it is a pulsating DIEGO 7/10 and not improved with Tylenol this morning. She reports vision changes when she takes her glasses off. She has nausea but no vomiting. Eating OK. She has a sharp RUQ pain when she pushes on her upper abdomen. No ctx, vb, lof. Good FM. She had an appointment this morning and says she was going to mention the headache, but forgot to discuss her headache at the visit. She was seen earlier this week for an appointment and had a headache at that time. She has been checking her blood pressures at home and states they have all been normal. Maternal Data Information BELEM Calculator Estimated Delivery Date Method Current WG Current Estimate 07/27/23 Manual 36w 3d PFSH PFS Medical History Gestational diabetes Gestational diabetes Home Medications vit no.95-ferrous fumarate 28 mg-folic acid 800 mcg tablet ( Multivitamins) 1 ea PO DAILY 02/14/18 [History Last Taken 10/16/19] acetaminophen 500 mg tablet 500 mg PO Q4H PRN PRN Pain Or Fever 05/24/19 [History Last Taken 05/24/19] aspirin 81 mg tablet,delayed release (Adult Low Dose Aspirin) 81 mg PO DAILY 05/17/23 [History Last Taken Unknown] ferrous sulfate 325 mg (65 mg iron) tablet (Feosol) 325 mg PO DAILY 05/17/23 [History Last Taken Unknown] insulin NPH isoph U-100 human 100 unit/mL (3 mL) subcutaneous pen (Humulin N NPH U-100 Insulin KwikPen) 10 unit (0.1 mL) subcut QHS #0 mL 06/10/23 [Rx Last Taken Unknown] insulin NPH isoph U-100 human 100 unit/mL (3 mL) subcutaneous pen (Humulin N NPH U-100 Insulin KwikPen) 20 unit (0.2 mL) subcut BREAKFAST #0 mL 06/10/23 [Rx Last Taken Unknown] Allergy/AdvReac Type Severity Reaction Status Date / Time cefdinir Allergy Vomiting Verified 06/11/23 22:20 morphine Allergy Rash Verified 06/11/23 22:20 peanut Allergy Anaphylaxis Verified 06/11/23 22:20 Social History household members: children Smoking Status: Never smoker History Elective abortions Hx Para 1 Spontaneous abortions Hx # Term Pregnancies Ectopic pregnancies Hx # Pregnancies Multiple births # of living children Physical Exam Const alert and no apparent distress General Appearance: comfortable HEENT normocephalic Resp normal respiratory effort GI soft to palpation and non-distended GI Narrative: +minimal tenderness in epigastric area and RUQ. No rebounding, no guarding, no rigidity Extremity Extremity Narrative: Patellar reflexes 2+ and no clonus, no swelling NST FHR Rate Baby A Baseline: 130 Variability:: Moderate Accelerations:: 15 x 15 Decelerations:: None NST Reactive:: Yes FHR Category:: Category I Uterine Activity:: no contractions Assessment Plan (1) 36 weeks gestation of : PLAN: Pre e labs normal. BP normal. Suspect migraine headache with nausea. Patient desired IVF bolus and migraine cocktail. Cont to check BP's at home. Discussed pre e signs and symptoms, and reasons to call or come in. She has a visit on Wednesday and an induction scheduled for 37 weeks. (2) Headache in : 07/02/23 7923 Date Sandra Edwards DO Cosigner Signature (if applicable): Date CC: Dr. Sandra Edwards DO; SHAYY Alejandro Signed ADDENDUM by Dr. Sandra Edwards DO on 07/02/23 at 1600 Addendum Has nausea and light sensitivity with headache. 07/02/23 1600 Date Sandra Edwards DO cc: Dr. Sandra Edwards DO; SHAYY Alejandro * Signed Normal [facility] OB Triage Physician Note [facility] Medical Records Department [address] [place] [address] OB Triage Physician Note 07/02/23 1521 MR#: [id number] Acct: [id number] Name: SEDA DE LEÓN Rep #: [id number] : 1995 28 From: Sandra Edwards DO PCP: SHAYY Alejandro Status:REG CLI Y Location: [place] [id number] HPI - General General Date of Admission: 07/02/23 Date of Service: 07/02/23 Chief Complaint: rule out pre e HPI Narrative SEDA DE LEÓN, is a 28 F who presents with headache, vision changes that resolve when she removes her glasses, RUQ pain when she pushes on her abdomen. The headache has been present for days and is noted at her last visit. Maternal Data Information BELEM Calculator Estimated Delivery Date Method Current WG Current Estimate 07/27/23 Manual 36w 3d PFSH PFSH Medical History Gestational diabetes Gestational diabetes Home Medications vit no.95-ferrous fumarate 28 mg-folic acid 800 mcg tablet ( Multivitamins) 1 ea PO DAILY 02/14/18 [History Last Taken 10/16/19] acetaminophen 500 mg tablet 500 mg PO Q4H PRN PRN Pain Or Fever 05/24/19 [History Last Taken 05/24/19] aspirin 81 mg tablet,delayed release (Adult Low Dose Aspirin) 81 mg PO DAILY 05/17/23 [History Last Taken Unknown] ferrous sulfate 325 mg (65 mg iron) tablet (Feosol) 325 mg PO DAILY 05/17/23 [History Last Taken Unknown] insulin NPH isoph U-100 human 100 unit/mL (3 mL) subcutaneous pen (Humulin N NPH U-100 Insulin KwikPen) 10 unit (0.1 mL) subcut QHS #0 mL 06/10/23 [Rx Last Taken Unknown] insulin NPH isoph U-100 human 100 unit/mL (3 mL) subcutaneous pen (Humulin N NPH U-100 Insulin KwikPen) 20 unit (0.2 mL) subcut BREAKFAST #0 mL 06/10/23 [Rx Last Taken Unknown] Allergy/AdvReac Type Severity Reaction Status Date / Time cefdinir Allergy Vomiting Verified 06/11/23 22:20 morphine Allergy Rash Verified 06/11/23 22:20 peanut Allergy Anaphylaxis Verified 06/11/23 22:20 Social History household members: children Smoking Status: Never smoker History Elective abortions Hx Para 1 Spontaneous abortions Hx # Term Pregnancies Ectopic pregnancies Hx # Pregnancies Multiple births # of living children 07/02/23 1523 Date Sandra Edwards DO Cosigner Signature (if applicable): Date CC: Dr. Sandra Edwards DO; SHAYY Alejandro Signed Normal [facility] Protein+Creatinine Ratio,Uri neon 07-02-2023 PROT:CRE RATIO 270 mg/g CRE High 0-200 [facility] Comment on above: Performed By: #### B [id number], BTS, L100.0100 #### [facility] [address] [place], [address] Protein (U) [Mass/Vol] 39.1 mg/dL High <11.9 [facility] Comment on above: Performed By: #### B [id number], BTS, L100.0100 #### [facility] [address] [place], [address] UR CREAT 145.00 mg/dL Normal NO RANGE EST. [facility] Comment on above: Performed By: #### B [id number], BTS, L100.0100 #### [facility] [address] [place], [address] RBC Auto (Bld) [#/Vol]Ordere d By: Sandra Edwards on 07-02-2023 RBC (Bld) [#/Vol] 4.04 10*6/uL 4.2-5.4 [facility] Serum Creatinine AND GFRon 0 07-02-2023 Creatinine [Mass/Vol] 0.76 mg/dL Normal 0.55-1.02 [facility] Comment on above: Result Comment: The validity of the calculated GFR GFRAA in patients over 70 years has not been determined. Clinical correlation is essential. Performed By: #### B [id number], BTS, L100.0100 #### [facility] [address] [place], [address] EST GFR - AA 117 mL/min Normal >60 [facility] Comment on above: Result Comment: Afri can [place] GFR Calc Performed By: #### B [id number], BTS, L100.0100 #### [facility] [address] [place], [address] GFR/1.73 sq M.predicted among non-blacks MDRD (S/P/Bld) [Vol rate/Area] 96 mL/min/{1.73_m2} Normal >60 [facility] Comment on above: Result Comment: Non- GFR Calc Performed By: #### B [id number], BTS, L100.0100 #### [facility] [address] [place], [place], [address] Serum or plasma creatinine m easurement (mass/volume)Ordered By: Sandra Edwards on 07-02-2023 Creatinine [Mass/Vol] 0.76 mg/dL 0.55-1.02 [facility] Comment on above: The validity of the calculated GFR & GFRAA in patients over 70 years has not been determined. Clinical correlation is essential. Serum or plasma uric acid me asurement (mass/volume)Ordered By: Sandra Edwards on 07-02-2023 Urate [Mass/Vol] 3.4 mg/dL 2.6-6.0 [facility] Comment on above: The drugs N-Acetylcy steine and Metamizole may falsely depress this assay. Thin prep Papanicolaou smear with manual screeningOrdered By: Sandra Edwards on 07-02-2023 Protein (U) [Mass/Vol] 39.1 mg/dL 0.0-11.8 [facility] Thin prep Papanicolaou smear with manual screening 14 U/L 15-37 [facility] Uric Acidon 07-02-2023 URIC 3.4 mg/dL Normal 2.6-6.0 [facility] Comment on above: Result Comment: The drugs N-Acetylcysteine and Metamizole may falsely depress this assay. Performed By: #### B [id number], BTS, L100.0100 #### [facility] [address] [place], [place], [address] Urine creatinine measurement (mass/volume)Ordered By: Sandra Edwards on 07-02-2023 Creatinine (U) [Mass/Vol] 145.00 mg/dL NO RANGE EST. [facility] Urine protein/creatinine mas s ratioOrdered By: Sandra Edwards on 07-02-2023 Protein/Creatinine (U) [Mass ratio] 270 mg/g CRE 0-200 [facility] URINE OB DIP B/Oon Glucose Ql (U) Negative Neg mg/dL [facility] Protein.monoclonal (U) [Mass/Vol] trace Neg mg/dL [facility] Examination level ultrasound on 06-25-[address] [facility] CBC panel Auto (Bld)on 06-20 Erythrocyte distribution width (RBC) [Ratio] 21.0 % High 11.5 - 15.0 % [facility] Hematocrit (Bld) [Volume fraction] 33.9 % Low 36.0 - 46.0 % [facility] Hemoglobin (Bld) [Mass/Vol] 10.6 g/dL Low 11.5 - 15.5 g/dL [facility] MCH (RBC) [Entitic mass] 26.2 pg 26.0 - 34.[address] [facility] MCHC (RBC) [Mass/Vol] 31.3 g/dL 30.5 - 36.0 g/dL [facility] MCV (RBC) [Entitic vol] 83.9 fL 80.0 - 100.[address] [facility] Nucleated RBC (Bld) [#/Vol] <0.01 k/uL [facility] Platelet mean volume (Bld) [Entitic vol] 9.8 fL 9.0 - 12.[address] [facility] Platelets (Bld) [#/Vol] 285 10*3/uL 150 - 400 k/uL [facility] RBC (Bld) [#/Vol] 4.04 10*6/uL 3.90 - 5.2 0 m/uL [facility] WBC (Bld) [#/Vol] 7.32 10*3/uL 3.70 - 11. 00 k/uL [facility] Comprehensive metabolic 2000 panelon 06-21-2023 Albumin [Mass/Vol] 3.3 g/dL Low 3.9 - 4.9 g/dL [facility] ALP [Catalytic activity/Vol] 133 U/L High 34 - 123 U/L [facility] ALT [Catalytic activity/Vol] 13 U/L 7 - 38 U/L [facility] Anion gap [Moles/Vol] 8 mmol/L Low 9 - 18 mmol/L [facility] AST [Catalytic activity/Vol] 12 U/L Low 13 - 35 U/L [facility] Bilirubin [Mass/Vol] Low 0.2 - 1 .3 mg/dL [facility] Calcium [Mass/Vol] 8.7 mg/dL 8.5 - 10. 2 mg/dL [facility] Chloride [Moles/Vol] 107 mmol/L High 97 - 10 5 mmol/L [facility] CO2 [Moles/Vol] 23 mmol/L 22 - 30 mmol/L [facility] Creatinine [Mass/Vol] 0.40 mg/dL Low 0.58 - 0.96 mg/dL [facility] Estimated Glomerular Filtration Rate 140 mL/min/1.73m >=60 mL/min/1.73m [facility] Glucose [Mass/Vol] 87 mg/dL 74 - 99 mg/dL [facility] Potassium [Moles/Vol] 3.6 mmol/L Low 3.7 - 5.1 mmol/L [facility] Protein [Mass/Vol] 6.3 g/dL 6.3 - 8.0 g/dL [facility] Sodium [Moles/Vol] 138 mmol/L 136 - 144 mmol/L [facility] Urea nitrogen [Mass/Vol] 8 mg/dL 7 - 21 mg/dL [facility] URINE OB DIP B/Oon 4 Glucose Ql (U) Negative Neg mg/dL [facility] Protein.monoclonal (U) [Mass/Vol] Negative Neg mg/dL [facility] Biophysical profile.hope dy movement USon 06-18-[address] [facility] URINE OB DIP B/Oon 4 Glucose Ql (U) Negative Neg mg/dL [facility] Protein.monoclonal (U) [Mass/Vol] Negative Neg mg/dL [facility] Thin prep Papanicolaou smear with manual screeningOrdered By: Sandra Lopez on 06-11-2023 Thin prep Papanicolaou smear with manual screening 88 mg/dL 74-106 [facility] Comment on above: MANAGEMENT OF PATIEN T CARE PER NURSING PROTOCOL Thin prep Papanicolaou smear with manual screeningOrdered By: Inna Garcia on 06-10-2023 Thin prep Papanicolaou smear with manual screening 76 mg/dL 74-106 [facility] Comment on above: MANAGEMENT OF PATIEN T CARE PER NURSING PROTOCOL URINE OB DIP B/Oon 4 Glucose Ql (U) Negative Neg mg/dL [facility] Protein.monoclonal (U) [Mass/Vol] Negative Neg mg/dL [facility] Examination level ultrasound on 06-02-[address] [facility] URINE OB DIP B/Oon 4 Glucose Ql (U) Negative Neg mg/dL [facility] Protein.monoclonal (U) [Mass/Vol] Negative Neg mg/dL [facility] Examination level ultrasound on 05-26-[address] [facility] URINE OB DIP B/Oon 4 Glucose Ql (U) Negative Neg mg/dL [facility] Protein.monoclonal (U) [Mass/Vol] trace Neg mg/dL [facility] URINE OB DIP B/Oon 4 Glucose Ql (U) Negative Neg mg/dL [facility] Protein.monoclonal (U) [Mass/Vol] Negative Neg mg/dL [facility] Bilirubin Test strip Ql (U)O rdered By: Ivett Laguerre on 05-17-2023 Bilirubin Ql (U) Negative Negative [facility] Ketones Test strip Ql (U)Ord ered By: Ivett Laguerre on 05-17-2023 Ketones Ql (U) 15 mg/dl Negative [facility] Nitrite Test strip Ql (U)Ord ered By: Ivett Laguerre on 05-17-2023 Nitrite Ql (U) Negative Negative [facility] Protein Test strip Ql (U)Ord ered By: Ivett Laguerre on 05-17-2023 Protein Ql (U) 15 mg/dl Negative [facility] Thin prep Papanicolaou smear with manual screeningOrdered By: Ivett Laguerre on 05-17-2023 Thin prep Papanicolaou smear with manual screening 158 mg/dL 74-106 [facility] Comment on above: MANAGEMENT OF PATIEN T CARE PER NURSING PROTOCOL Urine blood detectionOrdered By: Ivett Laguerre on 05-17-2023 RBC Ql (U) Negative Negative [facility] Urine clarityOrdered By: Veda Laguerre on 05-17-2023 Clarity (U) Clear Clear [facility] Urine color determinationOrd ered By: Ivett Laguerre on 05-17-2023 Color (U) Yellow Yellow [facility] Urine glucose detectionOrder ed By: Ivett Laguerre on 05-17-2023 Glucose Ql (U) 250 mg/dl Normal [facility] Urine leukocyte esterase det ection by dipstickOrdered By: Ivett Laguerre on 05-17-2023 Leukocyte esterase Test strip Ql (U) Negative Negative [facility] Urine pHOrdered By: Ivett Laguerre on 05-17-2023 pH (U) 7.0 [pH] 5.0 - 8.0 [facility] Urine specific gravity measu rementOrdered By: Ivett Laguerre on 05-17-2023 Specific gravity (U) [Rel density] 1.010 1.002-1.030 [facility] Urine urobilinogen measureme ntOrdered By: Ivett Laguerre on 05-17-2023 Urobilinogen Ql (U) 4 mg/dl Normal [facility] URINE OB DIP B/Oon 4 Glucose Ql (U) Negative Neg mg/dL [facility] Protein.monoclonal (U) [Mass/Vol] Negative Neg mg/dL [facility] Absolute lymphocyte countOrd ered By: Jeff Thakur on 04-12-2023 Lymphocytes Auto (Unsp spec) [#/Vol] 2.44 10*3/uL 0.83-4.51 [facility] Automated lymphocyte count a s percentage of total leukocytesOrdered By: Jeff Thakur on 04-12-2023 Lymphocytes/100 WBC Auto (Unsp spec) 21.8 % 19-41 [facility] Basophil percentageOrdered B y: Jeff Thakur on 04-12-2023 Basophil percentage 0-5 SEEN /hpf 0-5 [facility] Basophils/100 WBC (Bld) 0.3 % 0-1 [facility] Bilirubin [Mass/Vol] 0.20 mg/dL 0.20-1.00 [facility] Comment on above: For patients on eltr ombopag therapy, use of [employer] [place] TBIL is not recommended. Chloride [Moles/Vol] 113 mmol/L 98-107 [facility] Eosinophils/100 WBC (Bld) 0.3 % 0-5 [facility] Glucose [Mass/Vol] 86 mg/dL 74-[address] [facility] Hemoglobin (Bld) [Mass/Vol] 9.3 g/dL 12.0-15.0 [facility] Monocytes/100 WBC (Bld) 8.2 % 0-10 [facility] Neutrophils (Bld) [#/Vol] 7.7 10*3/uL 2.0-7.7 [facility] Neutrophils/100 WBC (Bld) 69.2 % 47-70 [facility] Potassium [Moles/Vol] 4.0 mmol/L 3.5-5.1 [facility] Protein [Mass/Vol] 6.1 g/dL 6.4-8.[address] [facility] Sodium [Moles/Vol] 142 mmol/L 136-[address] [facility] WBC (Bld) [#/Vol] 11.2 10*3/uL 4.4-11.0 [facility] Bilirubin Test strip Ql (U)O rdered By: Jeff Thakur on 04-12-2023 Bilirubin Ql (U) Negative Negative [facility] Determination of erythrocyte mean corpuscular volume (MCV)Ordered By: Jeff Thakur on 04-12-2023 MCV (RBC) [Entitic vol] 84.7 fL 81-99 [facility] Erythrocyte distribution wid th ratioOrdered By: Jeff Thakur on 04-12-2023 Erythrocyte distribution width (RBC) [Ratio] 12.8 % 11.6-14.6 [facility] Erythrocyte distribution wid th standard deviationOrdered By: Jeff Thakur on 04-12-2023 Erythrocyte distribution width (RBC) [Entitic vol] 39.5 fL 35.1-43.9 [facility] Hematocrit Auto (Bld) [Volum e fraction]Ordered By: Jeff Thakur on 04-12-2023 Hematocrit (Bld) [Volume fraction] 30.5 % 37-47 [facility] Immature granulocytes/100 WB C Auto (Bld)Ordered By: Jeff Thakur on 04-12-2023 Immature granulocytes/100 WBC (Bld) 0.200 % 0.0-0.9 [facility] Comment on above: IG% - Immature Granu locytes (promyelocytes, myelocytes and metamyelocytes) > 1% indicates that a LEFT SHIFT is Present. Ketones Test strip Ql (U)Ord ered By: Jeff Thakur on 04-12-2023 Ketones Ql (U) Negative Negative [facility] - Chemistry and C hemistry - challengeOrdered By: Jeff Thakur on 04-12-2023 Albumin/Globulin [Mass ratio] 0.6 {ratio} 0.9-2.4 [facility] ALP [Catalytic activity/Vol] 104 U/L 45-117 [facility] ALT [Catalytic activity/Vol] 15 U/L 13-56 [facility] CO2 [Moles/Vol] 23.0 mmol/L 21.0-32.0 [facility] Globulin (S) [Mass/Vol] 3.9 g/dL 2.2-4.2 [facility] Urea nitrogen/Creatinine [Mass ratio] 14.7 mg/mg 10-20 [facility] - Hematology and Cell countsOrdered By: Jeff Thakur on 04-12-2023 MCH (RBC) [Entitic mass] 25.8 pg 27.0-32.0 [facility] MCHC (RBC) [Mass/Vol] 30.5 g/dL 32-36 [facility] Nucleated RBC/100 WBC (Bld) [Ratio] 0 % 0-5 [facility] Platelets (Bld) [#/Vol] 273 10*3/uL 150-450 [facility] Mucus LM Ql (Urine sed)Order ed By: Jeff Thakur on 04-12-2023 Mucus Ql (Urine sed) RARE /hpf [facility] Nitrite Test strip Ql (U)Ord ered By: Jeff Thakur on 04-12-2023 Nitrite Ql (U) Negative Negative [facility] No Panel InformationOrdered By: Jeff Thakur on 04-12-2023 Estimated Creatinine Clearance Calc 248.84 ml/min [facility] Estimated GFR (MDRD) Amer 297 mL/min >60 [facility] Comment on above: GFR Calc Estimated GFR (MDRD) Non-Af Amer 245 mL/min >60 [facility] Comment on above: Non- GFR Calc Urine RBC 0 SEEN /hpf 0-5 [facility] Platelet mean volume Paolo-Ec ker (Bld) [Entitic vol]Ordered By: Jeff Thakur on 04-12-2023 Platelet mean volume (Bld) [Entitic vol] 9.6 fL 6.2-12.0 [facility] Protein Test strip Ql (U)Ord ered By: Jeff Thkaur on 04-12-2023 Protein Ql (U) Negative Negative [facility] RBC Auto (Bld) [#/Vol]Ordere d By: Jeff Thakur on 04-12-2023 RBC (Bld) [#/Vol] 3.60 10*6/uL 4.2-5.4 [facility] Serum or plasma calcium alia urement (mass/volume)Ordered By: Jeff Thakur on 04-12-2023 Calcium [Mass/Vol] 7.9 mg/dL 8.5-10.[address] [facility] Serum or plasma creatinine m easurement (mass/volume)Ordered By: Jeff Thakur on 04-12-2023 Creatinine [Mass/Vol] 0.34 mg/dL 0.55-1.02 [facility] Comment on above: The validity of the calculated GFR & GFRAA in patients over 70 years has not been determined. Clinical correlation is essential. Serum or plasma urea nitroge n measurement (mass/volume)Ordered By: Jeff Thakur on 04-12-2023 Urea nitrogen [Mass/Vol] 5 mg/dL 7-18 [facility] Squamous epithelial cells de tection in urine sediment by light microscopyOrdered By: Jeff Thakur on 04-12-2023 Epithelial cells.squamous LM Ql (Urine sed) 0-5 SEEN /hpf 5-10 [facility] Thin prep Papanicolaou smear with manual screeningOrdered By: Jeff Thakur on 04-12-2023 Thin prep Papanicolaou smear with manual screening 2.2 g/dL 3.2-5.0 [facility] Thin prep Papanicolaou smear with manual screening 13 U/L 15-37 [facility] Thin prep Papanicolaou smear with manual screening 6 5-15 [facility] Urine blood detectionOrdered By: Jeff Thakur on 04-12-2023 RBC Ql (U) Negative Negative [facility] Urine clarityOrdered By: Abraham Thakur on 04-12-2023 Clarity (U) Clear Clear [facility] Urine color determinationOrd ered By: Jeff Thakur on 04-12-2023 Color (U) Yellow Yellow [facility] Urine glucose detectionOrder ed By: Jeff Thakur on 04-12-2023 Glucose Ql (U) Normal mg/dl Normal [facility] Urine leukocyte esterase det ection by dipstickOrdered By: Jeff Thakur on 04-12-2023 Leukocyte esterase Test strip Ql (U) 100 /ul Negative [facility] Urine pHOrdered By: Jeff butt on 04-12-2023 pH (U) 6.5 [pH] 5.0 - 8.0 [facility] Urine sediment bacteria coun t by microscopy (number/high power field)Ordered By: Jeff Thakur on 04-12-2023 Bacteria LM.HPF (Urine sed) [#/Area] 1 /[HPF] None Seen [facility] Urine specific gravity measu rementOrdered By: Jeff Thakur on 04-12-2023 Specific gravity (U) [Rel density] 1.015 1.002-1.030 [facility] Urine urobilinogen measureme ntOrdered By: Jeff Thakur on 04-12-2023 Urobilinogen Ql (U) 1 mg/dl Normal [facility] No Panel Informationon 12-[address] [facility] Laboratory - Chemistry and C hemistry - challengeOrdered By: Ru Oden on 11-19-2022 HCG ( test) Ql (U) Negative [facility] Comment on above: TEST is *P OSITIVE* Serum or plasma choriogonado tropin detectionOrdered By: Ru Oden on 11-19-2022 HCG ( test) Ql 109 mIU/mL <4 [facility] Comment on above: hCG levels with Gest ational AgeGestational Age hCG mIU/mL (IU/L)0.2 - 1 week 5 - 501-2 weeks 50 - 5002-3 weeks 100 - 03269-1 weeks 500 - 845058-5 weeks 1000 - 070409-7 weeks 39058 - 100,0006-8 weeks 90845 - 200,0002-3 months 80333 - 100,000 Basophil percentageOrdered B y: Ru Oden on 11-17-2022 Basophil percentage 0-5 SEEN /hpf 0-5 [facility] Bilirubin Test strip Ql (U)O rdered By: Ru Oden on 11-17-2022 Bilirubin Ql (U) 1 mg/dL Negative [facility] Comment on above: COLOR OF URINE MAY A FFECT DIPSTICK RESULTS. Ketones Test strip Ql (U)Ord ered By: Ru Oden on 11-17-2022 Ketones Ql (U) 150 mg/dl Negative [facility] Comment on above: CRITICAL VALUE *H Mucus LM Ql (Urine sed)Order ed By: Ru Oden on 11-17-2022 Mucus Ql (Urine sed) 3+ /hpf [facility] Nitrite Test strip Ql (U)Ord ered By: Ru Oden on 11-17-2022 Nitrite Ql (U) Negative Negative [facility] Protein Test strip Ql (U)Ord ered By: Ru Oden on 11-17-2022 Protein Ql (U) 30 mg/dl Negative [facility] Serum or plasma choriogonado tropin detectionOrdered By: Ru Oden on 11-17-2022 HCG ( test) Ql 46 mIU/mL <4 [facility] Comment on above: hCG levels with Gest ational AgeGestational Age hCG mIU/mL (IU/L)0.2 - 1 week 5 - 501-2 weeks 50 - 5002-3 weeks 100 - 75869-5 weeks 500 - 510438-5 weeks 1000 - 437949-8 weeks 53418 - 100,0006-8 weeks 61554 - 200,0002-3 months 78135 - 100,000 Squamous epithelial cells de tection in urine sediment by light microscopyOrdered By: Ru Oden on 11-17-2022 Epithelial cells.squamous LM Ql (Urine sed) 0-5 SEEN /hpf 5-10 [facility] Urine blood detectionOrdered By: Ru Oden on 11-17-2022 RBC Ql (U) Negative Negative [facility] RBC Ql (U) 0 SEEN /hpf 0-5 [facility] Urine clarityOrdered By: Ru Oden on 11-17-2022 Clarity (U) Cloudy Clear [facility] Urine color determinationOrd ered By: Ru Oden on 11-17-2022 Color (U) Yellow Yellow [facility] Urine glucose detectionOrder ed By: Ru Oden on 11-17-2022 Glucose Ql (U) Normal mg/dl Normal [facility] Urine leukocyte esterase det ection by dipstickOrdered By: Ru Oden on 11-17-2022 Leukocyte esterase Test strip Ql (U) 100 /ul Negative [facility] Urine pHOrdered By: Ru romero on 11-17-2022 pH (U) 5.0 [pH] 5.0 - 8.0 [facility] Urine sediment bacteria coun t by microscopy (number/high power field)Ordered By: Ru Oden on 11-17-2022 Bacteria LM.HPF (Urine sed) [#/Area] RARE /hpf None Seen [facility] Urine specific gravity measu rementOrdered By: Ru Oden on 11-17-2022 Specific gravity (U) [Rel density] 1.025 1.002-1.030 [facility] Urobilinogen Auto test strip Ql (U)Ordered By: Ru Oden on 11-17-2022 Urobilinogen Ql (U) 8 mg/dl Normal [facility] US BREAST LTD LEFTon [address] [facility] No Panel Informationon 11-[address] [facility] STREP A MOLECULAR (POC)on Procedural Control Valid [facility] Strep A (POCT) Positive Abnormal Negative [facility] CBC W Auto Differential pane l (Bld)on 09-29-2022 Basophils (Bld) [#/Vol] 0.04 10*3/uL Normal <0.11 [facility] Comment on above: Order Comment: Speci men Type: BLOOD SPECIMEN Ordering Facility: [facility] Address: [address] [place] [address] Performed By: #### 5 7021-8 #### [facility] CLIA [id number] [place] [address] [place] Basophils/100 WBC (Bld) 0.7 % Normal [facility] Comment on above: Order Comment: Speci men Type: BLOOD SPECIMEN Ordering Facility: [facility] Address: [address] [place] [address] Performed By: #### 5 7021-8 #### [facility] CLIA [id number] [place] [address] [place] Differential cell count method Nom (Bld) Auto Normal [facility] Comment on above: Order Comment: Speci men Type: BLOOD SPECIMEN Ordering Facility: [facility] Address: [address] [address] Performed By: #### 5 7021-8 #### [facility] CLIA [id number] [place] [address] [place] Eosinophils (Bld) [#/Vol] 0.15 10*3/uL Normal <0.46 [facility] Comment on above: Order Comment: Speci men Type: BLOOD SPECIMEN Ordering Facility: [facility] Address: [address] [address] Performed By: #### 5 7021-8 #### [facility] CLIA [id number] [place] [address] [place] Eosinophils/100 WBC (Bld) 2.6 % Normal [facility] Comment on above: Order Comment: Speci men Type: BLOOD SPECIMEN Ordering Facility: [facility] Address: [address] [place] [address] Performed By: #### 5 7021-8 #### [facility] CLIA [id number] [place] [address] [place] Erythrocyte distribution width (RBC) [Ratio] 13.3 % Normal 11.5-15.0 [facility] Comment on above: Order Comment: Speci men Type: BLOOD SPECIMEN Ordering Facility: [facility] Address: [address] [address] Performed By: #### 5 7021-8 #### [facility] CLIA [id number] [place] [address] [place] Hematocrit (Bld) [Volume fraction] 40.9 % Normal 36.0-46.0 [facility] Comment on above: Order Comment: Speci men Type: BLOOD SPECIMEN Ordering Facility: [facility] Address: [address] [place] [address] Performed By: #### 5 7021-8 #### [facility] CLIA [id number] [place] [address] [place] Hemoglobin (Bld) [Mass/Vol] 13.2 g/dL Normal 11.5-15.5 [facility] Comment on above: Order Comment: Speci men Type: BLOOD SPECIMEN Ordering Facility: [facility] Address: [address] [address] Performed By: #### 5 7021-8 #### [facility] CLIA [id number] [place] [address] [place] Immature granulocytes (Bld) [#/Vol] 10*3/uL Normal <0.10 [facility] Comment on above: Order Comment: Speci men Type: BLOOD SPECIMEN Ordering Facility: [facility] Address: [address] [address] Performed By: #### 5 7021-8 #### [facility] CLIA [id number] [place] [address] [place] Immature granulocytes/100 WBC (Bld) 0.2 % Normal [facility] Comment on above: Order Comment: Speci men Type: BLOOD SPECIMEN Ordering Facility: [facility] Address: [address] [address] Performed By: #### 5 7021-8 #### [facility] CLIA [id number] [place] [address] [place] Lymphocytes (Bld) [#/Vol] 2.36 10*3/uL Normal 1.00-4.00 [facility] Comment on above: Order Comment: Speci men Type: BLOOD SPECIMEN Ordering Facility: [facility] Address: [address] [address] Performed By: #### 5 7021-8 #### [facility] CLIA [id number] [place] [address] [place] Lymphocytes/100 WBC (Bld) 40.4 % Normal [facility] Comment on above: Order Comment: Speci men Type: BLOOD SPECIMEN Ordering Facility: [facility] Address: [address] [address] Performed By: #### 5 7021-8 #### [facility] CLIA [id number] [address] [place] MCH (RBC) [Entitic mass] 27.7 pg Normal 26.0-34.0 [facility] Comment on above: Order Comment: Speci men Type: BLOOD SPECIMEN Ordering Facility: [facility] Address: [address] [address] Performed By: #### 5 7021-8 #### [facility] CLIA [id number] [address] [place] MCHC (RBC) [Mass/Vol] 32.3 g/dL Normal 30.5-36.0 [facility] Comment on above: Order Comment: Speci men Type: BLOOD SPECIMEN Ordering Facility: [facility] Address: [address] [place] [address] Performed By: #### 5 7021-8 #### [facility] [id number] [place] [address] [place] MCV (RBC) [Entitic vol] 85.9 fL Normal 80.0-100.0 [facility] Comment on above: Order Comment: Speci men Type: BLOOD SPECIMEN Ordering Facility: [facility] Address: [address] [place] [address] Performed By: #### 5 7021-8 #### [facility] IA [id number] [address] [place] Monocytes (Bld) [#/Vol] 0.52 10*3/uL Normal <0.87 [facility] Comment on above: Order Comment: Speci men Type: BLOOD SPECIMEN Ordering Facility: [facility] Address: [address] [address] Performed By: #### 5 7021-8 #### [facility] CLIA [id number] [address] Monocytes/100 WBC (Bld) 8.9 % Normal [facility] Comment on above: Order Comment: Speci men Type: BLOOD SPECIMEN Ordering Facility: [facility] Address: [address] Performed By: #### 5 7021-8 #### [facility] CLIA [id number] [place] [address] [place] Neutrophils (Bld) [#/Vol] 2.76 10*3/uL Normal 1.45-7.50 [facility] Comment on above: Order Comment: Speci men Type: BLOOD SPECIMEN Ordering Facility: [facility] Address: [address] [address] Performed By: #### 5 7021-8 #### [facility] CLIA [id number] [place] [address] [place] Neutrophils/100 WBC (Bld) 47.2 % Normal [facility] Comment on above: Order Comment: Speci men Type: BLOOD SPECIMEN Ordering Facility: [facility] Address: [address] [address] Performed By: #### 5 7021-8 #### [facility] CLIA [id number] [place] [address] [place] Nucleated RBC (Bld) [#/Vol] 10*3/uL Normal <0.01 [facility] Comment on above: Order Comment: Speci men Type: BLOOD SPECIMEN Ordering Facility: [facility] Address: [address] [address] Performed By: #### 5 7021-8 #### [facility] CLIA [id number] [place] [address] [place] Nucleated RBC/100 WBC (Bld) [Ratio] 0.0 /100 WBC Normal [facility] Comment on above: Order Comment: Speci men Type: BLOOD SPECIMEN Ordering Facility: [facility] Address: [address] Performed By: #### 5 7021-8 #### [facility] CLIA [id number] [place] [address] [place] Platelet mean volume (Bld) [Entitic vol] 10.9 fL Normal 9.0-12.7 [facility] Comment on above: Order Comment: Speci men Type: BLOOD SPECIMEN Ordering Facility: [facility] Address: [address] [address] Performed By: #### 5 7021-8 #### [facility] CLIA [id number] [place] [address] [place] Platelets (Bld) [#/Vol] 323 10*3/uL Normal 150-400 [facility] Comment on above: Order Comment: Speci men Type: BLOOD SPECIMEN Ordering Facility: [facility] Address: [address] Performed By: #### 5 7021-8 #### [facility] CLIA [id number] [place] [address] [place] [facility] [place] RBC (Bld) [#/Vol] 4.76 10*6/uL Normal 3.90-5.[address] [facility] Comment on above: Order Comment: Speci men Type: BLOOD SPECIMEN Ordering Facility: [facility] Address: [address] Performed By: #### 5 7021-8 #### [facility] CLIA [id number] [place] [address] [place] WBC (Bld) [#/Vol] 5.84 10*3/uL Normal 3.70-11.[address] [facility] Comment on above: Order Comment: Speci men Type: BLOOD SPECIMEN Ordering Facility: [facility] Address: [address] [place], [place] [address] Performed By: #### 5 7021-8 #### [facility] CLIA [id number] [address] [place] Comprehensive metabolic 2000 panelon 09-29-2022 Albumin [Mass/Vol] 4.0 g/dL Normal 3.9-4.9 [facility] Comment on above: Order Comment: Speci men Type: BLOOD SPECIMEN Ordering Facility: [facility] Address: [address] [place], [place] [address] Performed By: #### 2 4323-8 #### [facility] CLIA [id number] [place] [address] [place] ALP [Catalytic activity/Vol] 109 U/L Normal 34-123 [facility] Comment on above: Order Comment: Speci men Type: BLOOD SPECIMEN Ordering Facility: [facility] Address: [address] [address] Performed By: #### 2 4323-8 #### [facility] CLIA [id number] [place] [address] [place] ALT [Catalytic activity/Vol] 23 U/L Normal 7-38 [facility] Comment on above: Order Comment: Speci men Type: BLOOD SPECIMEN Ordering Facility: [facility] Address: [address] [place] [address] Performed By: #### 2 4323-8 #### [facility] CLIA [id number] [place] [address] [place] Anion gap [Moles/Vol] 15 mmol/L Normal 9-18 [facility] Comment on above: Order Comment: Speci men Type: BLOOD SPECIMEN Ordering Facility: [facility] Address: [address] [place] [address] Performed By: #### 2 4323-8 #### [facility] CLIA [id number] [place] [address] [place] AST [Catalytic activity/Vol] 30 U/L Normal 13-35 [facility] Comment on above: Order Comment: Speci men Type: BLOOD SPECIMEN Ordering Facility: [facility] Address: [address] [address] Performed By: #### 2 4323-8 #### [facility] CLIA [id number] [place] [address] [place] Bilirubin [Mass/Vol] 0.2 mg/dL Normal 0.2-1.3 [facility] Comment on above: Order Comment: Speci men Type: BLOOD SPECIMEN Ordering Facility: [facility] Address: [address] [place] [id number] Performed By: #### 2 4323-8 #### [facility] CLIA [id number] [place] [address] [place] Calcium [Mass/Vol] 9.4 mg/dL Normal 8.5-10.2 [facility] Comment on above: Order Comment: Speci men Type: BLOOD SPECIMEN Ordering Facility: [facility] Address: [address] Performed By: #### 2 4323-8 #### [facility] CLIA [id number] [place] [address] [place] Chloride [Moles/Vol] 104 mmol/L Normal 97-105 [facility] Comment on above: Order Comment: Speci men Type: BLOOD SPECIMEN Ordering Facility: [facility] Address: [address] [address] Performed By: #### 2 4323-8 #### [facility] CLIA [id number] [place] [address] [place] CO2 [Moles/Vol] 23 mmol/L Normal 22-30 [facility] Comment on above: Order Comment: Speci men Type: BLOOD SPECIMEN Ordering Facility: [facility] Address: [address] Performed By: #### 2 4323-8 #### [facility] CLIA [id number] [place] [address] [place] Creatinine [Mass/Vol] 0.57 mg/dL Low 0.58-0.96 [facility] Comment on above: Order Comment: Speci men Type: BLOOD SPECIMEN Ordering Facility: [facility] Address: [address] Performed By: #### 2 4323-8 #### [facility] CLIA [id number] [place] [address] [place] ESTIMATED GLOMERULAR FILTRATION RATE 129 mL/min/1.73m??? Normal >=60 [facility] Comment on above: Order Comment: Speci men Type: BLOOD SPECIMEN Ordering Facility: [facility] Address: [address] Result Comment: Rekha mated Glomerular Filtration Rate (eGFR) is calculated using the 2020 CKD-EPI creatinine equation. This equation utilizes serum creatinine, sex, and age as parameters. The creatinine assay has traceable calibration to isotope dilution-mass spectrometry. Refer to KDIGO guidelines for clinical interpretation. In patients with unstable renal function, e.g. those with acute kidney injury, the eGFR may not accurately reflect actual GFR. Performed By: #### 2 4323-8 #### [facility] CLIA [id number] [place] [address] [place] Glucose [Mass/Vol] 90 mg/dL Normal 74-99 [facility] Comment on above: Order Comment: Shantel espinal Type: BLOOD SPECIMEN Ordering Facility: [facility] Address: [address] [place], [place] [id number] Result Comment: The [place] Diabetes [employer] (ADA) provides guidance for cutoff values for fasting glucose and random glucose. The ADA defines fasting as no caloric intake for at least 8 hours. Fasting plasma glucose results between 100 to 125 mg/dL indicate increased risk for diabetes (prediabetes). Fasting plasma glucose results greater than or equal to 126 mg/dL meet the criteria for diagnosis of diabetes. In the absence of unequivocal hyperglycemia, results should be confirmed by repeat testing. In a patient with classic symptoms of hyperglycemia or hyperglycemic crisis, random plasma glucose results greater than or equal to 200 mg/dL meet the criteria for diagnosis of diabetes. Reference: Standards of Medical Care in Diabetes 2016, [place] [employer]. Diabetes Care. 2016.39(Suppl 1). Performed By: #### 2 4323-8 #### [facility] CLIA [id number] [place] [address] [place] Potassium [Moles/Vol] 3.5 mmol/L Low 3.7-5.1 [facility] Comment on above: Order Comment: Shantel espinal Type: BLOOD SPECIMEN Ordering Facility: [facility] Address: [address] [place], [place] [address] Performed By: #### 2 4323-8 #### [facility] CLIA [id number] [place] [address] [place] Protein [Mass/Vol] 6.6 g/dL Normal 6.3-8.0 [facility] Comment on above: Order Comment: Shantel espinal Type: BLOOD SPECIMEN Ordering Facility: [facility] Address: [address] [place] [address] Performed By: #### 2 4323-8 #### [facility] CLIA [id number] [place] [address] [place] Sodium [Moles/Vol] 142 mmol/L Normal 136-144 [facility] Comment on above: Order Comment: Norai kylie Type: BLOOD SPECIMEN Ordering Facility: [facility] Address: [address] [place] [address] Performed By: #### 2 4323-8 #### [facility] CLIA [id number] [place] [address] [place] Urea nitrogen [Mass/Vol] 7 mg/dL Normal 7-21 [facility] Comment on above: Order Comment: Speci men Type: BLOOD SPECIMEN Ordering Facility: [facility] Address: [address] [place] [address] Performed By: #### 2 4323-8 #### [facility] CLIA [id number] [place] [address] [place] XR UPPER GI SINGLE CONTRASTo n 09-29-2022 XR UPPER GI SINGLE CONTRAST * * *Final Report* * * DATE OF EXAM: Sep 29 2022 10:07AM SPX [id number] - XR UPPER GI SINGLE CONTRAST / PROCEDURE REASON: Food intolerance * * * * Physician Interpretation * * * * RESULT: EXAM:XR UPPER GI SINGLE CONTRAST HISTORY: 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 Cholecystectomy clips are in place. Single contrast study was performed. 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 The esophagus is normal in contour, caliber and course. No gastroesophageal reflux elicited during the study. The contrast passes into the small gastric pouch and subsequently into the small bowel without delay. Proximal jejunal mucosal fold pattern is normal. Fluoroscopic Radiation Summary: Plane A, Air Kerma: 38.8 mGy Dose Area Product (DAP): Fluoro time: 2:48 min:sec IMPRESSION:Postoperative changes. No abnormal findings. Transcribed Using Voice Recognition Transcribe Date/Time: Sep 29 2022 10:20A Dictated by: GENEVA RIVERO MD This examination was interpreted and the report reviewed and electronically signed by: GENEVA RIVERO MD on Sep 29 2022 10:30AM EST [id number] Normal [facility] Amorphous sediment detection in urine sediment by light microscopyOrdered By: Dr. Calvo on 08-28-2022 Amorphous sediment LM Ql (Urine sed) 1+ [facility] Basophil percentageOrdered B y: Dr. Calvo on 08-28-2022 Basophil percentage 0-5 SEEN /hpf 0-5 [facility] Bilirubin Test strip Ql (U)O rdered By: Dr. Calvo on 08-28-2022 Bilirubin Ql (U) 1 mg/dL Negative [facility] Comment on above: COLOR OF URINE MAY A FFECT DIPSTICK RESULTS.CRITICAL VALUE VERIFIED. CALLED TO Ayan RIVERA RN ER08/28/22 0054 Vincent Archer.RESULTS READ BACK BY SAME. Hyaline casts LM.LPF (Urine sed) [#/Area]Ordered By: Dr. Calvo on 08-28-2022 Hyaline casts (Urine sed) [#/Area] 5 /[LPF] 0-5 [facility] Ketones Test strip Ql (U)Ord ered By: Dr. Calvo on 08-28-2022 Ketones Ql (U) 150 mg/dl Negative [facility] Comment on above: CRITICAL VALUE *H Mucus LM Ql (Urine sed)Order ed By: Dr. Calvo on 08-28-2022 Mucus Ql (Urine sed) 1+ /hpf [facility] Nitrite Test strip Ql (U)Ord ered By: Dr. Calvo on 08-28-2022 Nitrite Ql (U) Negative Negative [facility] Protein Test strip Ql (U)Ord ered By: Dr. Calvo on 08-28-2022 Protein Ql (U) 30 mg/dl Negative [facility] Squamous epithelial cells de tection in urine sediment by light microscopyOrdered By: Dr. Calvo on 08-28-2022 Epithelial cells.squamous LM Ql (Urine sed) 0-5 SEEN /hpf 5-10 [facility] Urine blood detectionOrdered By: Dr. Calvo on 08-28-2022 RBC Ql (U) 25 /ul Negative [facility] RBC Ql (U) 0-5 SEEN /hpf 0-5 [facility] Urine clarityOrdered By: Dr. Calvo on 08-28-2022 Clarity (U) Clear Clear [facility] Urine color determinationOrd ered By: Dr. Calvo on 08-28-2022 Color (U) Yellow Yellow [facility] Urine glucose detectionOrder ed By: Dr. Calvo on 08-28-2022 Glucose Ql (U) Normal mg/dl Normal [facility] Urine leukocyte esterase det ection by dipstickOrdered By: Dr. Calvo on 08-28-2022 Leukocyte esterase Test strip Ql (U) 25 /ul Negative [facility] Urine pHOrdered By: Dr. Ky terry on 08-28-2022 pH (U) 5.0 [pH] 5.0 - 8.0 [facility] Urine sediment bacteria coun t by microscopy (number/high power field)Ordered By: Dr. Calvo on 08-28-2022 Bacteria LM.HPF (Urine sed) [#/Area] 2 /[HPF] None Seen [facility] Comment on above: Previous reported re sult: 1+ /hpfEdited by: GOLDIE on 08/28/22:0056 AMENDED REPORT 08/28/22 0056 BACTERIA previously reported as: 1+ /hpf Urine specific gravity measu rementOrdered By: Dr. Calvo on 08-28-2022 Specific gravity (U) [Rel density] 1.030 1.002-1.030 [facility] Urobilinogen Auto test strip Ql (U)Ordered By: Dr. Calvo on 08-28-2022 Urobilinogen Ql (U) 4 mg/dl Normal [facility] Absolute lymphocyte countOrd ered By: Dr. Calvo on 08-27-2022 Lymphocytes Auto (Unsp spec) [#/Vol] 2.24 10*3/uL 0.83-4.51 [facility] Basophil percentageOrdered B y: Dr. Calvo on 08-27-2022 Basophils/100 WBC (Bld) 0.7 % 0-1 [facility] Bilirubin [Mass/Vol] 0.30 mg/dL 0.20-1.00 [facility] Comment on above: For patients on eltr ombopag therapy, use of Dimension [place] TBIL is not recommended. Chloride [Moles/Vol] 105 mmol/L 98-107 [facility] Eosinophils/100 WBC (Bld) 2.0 % 0-5 [facility] Glucose [Mass/Vol] 94 mg/dL 74-[address] [facility] Neutrophils (Bld) [#/Vol] 4.3 10*3/uL 2.0-7.7 [facility] Neutrophils/100 WBC (Bld) 57.5 % 47-70 [facility] Potassium [Moles/Vol] 3.2 mmol/L 3.5-5.1 [facility] Protein [Mass/Vol] 7.7 g/dL 6.4-8.[address] [facility] Sodium [Moles/Vol] 137 mmol/L 136-[address] [facility] WBC (Bld) [#/Vol] 7.5 10*3/uL 4.4-11.[address] [facility] Blood erythrocytes count (nu mber/volume)Ordered By: Dr. Calvo on 08-27-2022 RBC (Bld) [#/Vol] 5.31 10*6/uL 4.2-5.4 [facility] Blood hemoglobin measurement (mass/volume)Ordered By: Dr. Calvo on 08-27-2022 Hemoglobin (Bld) [Mass/Vol] 14.9 g/dL 12.0-15.0 [facility] Blood lymphocytes/100 leukoc ytesOrdered By: Dr. Calvo on 08-27-2022 Lymphocytes/100 WBC (Bld) 29.9 % 19-41 [facility] Blood monocytes/100 leukocyt esOrdered By: Dr. Calvo on 08-27-2022 Monocytes/100 WBC (Bld) 9.6 % 0-10 [facility] Blood platelet mean volumeOr dered By: Dr. Calvo on 08-27-2022 Platelet mean volume (Bld) [Entitic vol] 10.9 fL 6.2-12.0 [facility] Determination of erythrocyte mean corpuscular volume (MCV)Ordered By: Dr. Calvo on 08-27-2022 MCV (RBC) [Entitic vol] 86.1 fL 81-99 [facility] Direct bilirubinOrdered By: Dr. Calvo on 08-27-2022 Bilirubin.direct [Mass/Vol] 0.11 mg/dL 0.00-0.30 [facility] Hematocrit Auto (Bld) [Volum e fraction]Ordered By: Dr. Calvo on 08-27-2022 Hematocrit (Bld) [Volume fraction] 45.7 % 37-47 [facility] Laboratory - Chemistry and C hemistry - challengeOrdered By: Dr. Calvo on 08-27-2022 ALP [Catalytic activity/Vol] 148 U/L 45-117 [facility] ALT [Catalytic activity/Vol] 114 U/L 13-56 [facility] CO2 [Moles/Vol] 19.0 mmol/L 21.0-32.0 [facility] Globulin (S) [Mass/Vol] 4.1 g/dL 2.2-4.2 [facility] Urea nitrogen/Creatinine [Mass ratio] 11.9 mg/mg 10-20 [facility] Laboratory - Hematology and Cell countsOrdered By: Dr. Calvo on 08-27-2022 Erythrocyte distribution width (RBC) [Entitic vol] 42.7 fL 35.1-43.9 [facility] Erythrocyte distribution width (RBC) [Ratio] 13.9 % 11.6-14.6 [facility] Immature granulocytes/100 WBC (Bld) 0.300 % 0.0-0.9 [facility] Comment on above: IG% - Immature Granu locytes (promyelocytes, myelocytes and metamyelocytes) > 1% indicates that a LEFT SHIFT is Present. MCH (RBC) [Entitic mass] 28.1 pg 27.0-32.0 [facility] Nucleated RBC/100 WBC (Bld) [Ratio] 0 % 0-5 [facility] MCHC Auto (RBC) [Mass/Vol]Or dered By: Dr. Calvo on 08-27-2022 MCHC (RBC) [Mass/Vol] 32.6 g/dL 32-36 [facility] No Panel InformationOrdered By: Dr. Calvo on 08-27-2022 Estimated Creatinine Clearance Calc 83.95 ml/min [facility] Estimated GFR (MDRD) Amer 105 mL/min >60 [facility] Comment on above: GFR Calc Estimated GFR (MDRD) Non-Af Amer 87 mL/min >60 [facility] Comment on above: Non- GFR Calc Platelets bldOrdered By: Dr. Calvo on 08-27-2022 Platelets (Bld) [#/Vol] 355 10*3/uL 150-450 [facility] Serum or plasma albumin alia urement (mass/volume)Ordered By: Dr. Calvo on 08-27-2022 Albumin [Mass/Vol] 3.6 g/dL 3.2-5.[address] [facility] Serum or plasma calcium alia urement (mass/volume)Ordered By: Dr. Calvo on 08-27-2022 Calcium [Mass/Vol] 9.5 mg/dL 8.5-10.[address] [facility] Serum or plasma creatinine m easurement (mass/volume)Ordered By: Dr. Calvo on 08-27-2022 Creatinine [Mass/Vol] 0.84 mg/dL 0.55-1.02 [facility] Comment on above: The validity of the calculated GFR & GFRAA in patients over 70 years has not been determined. Clinical correlation is essential. Serum or plasma urea nitroge n measurement (mass/volume)Ordered By: Dr. Calvo on 08-27-2022 Urea nitrogen [Mass/Vol] 10 mg/dL 7-18 [facility] Thin prep Papanicolaou smear with manual screeningOrdered By: Dr. Calvo on 08-27-2022 Thin prep Papanicolaou smear with manual screening 41 U/L 15-37 [facility] Thin prep Papanicolaou smear with manual screening 13 -15 [facility] CBC W Auto Differential pane l (Bld)on 08-26-2022 Basophils (Bld) [#/Vol] 0.03 10*3/uL <0.11 k/uL [facility] Basophils/100 WBC (Bld) 0.5 % [facility] Differential cell count method Nom (Bld) Auto [facility] Eosinophils (Bld) [#/Vol] 0.15 10*3/uL <0.46 k/uL [facility] Eosinophils/100 WBC (Bld) 2.3 % [facility] Erythrocyte distribution width (RBC) [Ratio] 13.8 % 11.5 - 15.0 % [facility] Hematocrit (Bld) [Volume fraction] 44.1 % 36.0 - 46.0 % [facility] Hemoglobin (Bld) [Mass/Vol] 14.3 g/dL 11.5 - 15.5 g/dL [facility] Immature granulocytes (Bld) [#/Vol] <0.10 k/uL [facility] Immature granulocytes/100 WBC (Bld) 0.2 % [facility] Lymphocytes (Bld) [#/Vol] 2.11 10*3/uL 1.00 - 4.00 k/uL [facility] Lymphocytes/100 WBC (Bld) 33.0 % [facility] MCH (RBC) [Entitic mass] 27.8 pg 26.0 - 34.[address] [facility] MCHC (RBC) [Mass/Vol] 32.4 g/dL 30.5 - 36.0 g/dL [facility] MCV (RBC) [Entitic vol] 85.6 fL 80.0 - 100.[address] [facility] Monocytes (Bld) [#/Vol] 0.63 10*3/uL <0.87 k/uL [facility] Monocytes/100 WBC (Bld) 9.8 % [facility] Neutrophils (Bld) [#/Vol] 3.47 10*3/uL 1.45 - 7.50 k/uL [facility] Neutrophils/100 WBC (Bld) 54.2 % [facility] Nucleated RBC (Bld) [#/Vol] <0.01 k/uL [facility] Nucleated RBC/100 WBC (Bld) [Ratio] 0.0 /[address] [facility] Platelet mean volume (Bld) [Entitic vol] 12.3 fL 9.0 - 12.[address] [facility] Platelets (Bld) [#/Vol] 332 10*3/uL 150 - 400 k/uL [facility] RBC (Bld) [#/Vol] 5.15 10*6/uL 3.90 - 5.2 0 m/uL [facility] WBC (Bld) [#/Vol] 6.40 10*3/uL 3.70 - 11. 00 k/uL [facility] PHOSPHORUS INORGANICon 08-26 Phosphate [Mass/Vol] 3.6 mg/dL 2.7 - 4 .8 mg/dL [facility] XR Chest PA and Lateralon IMPRESSION: No acute radiographic abnormality. Day Care Provider: RAMON Transcribe Date/Time: Jun 02 2022 10:25A Dictated by : DEMETRA MEDRANO MD This examination was interpreted and the report reviewed and electronically signed by: DEMETRA MEDRANO MD on Jun 02 2022 10:26AM [facility] DIVISION OF RADIOLOGY * * *Final Report* * * DATE OF EXAM: Jun 02 2022 8:38AM WOX 5291 - XR CHEST 2V FRONTAL/LAT / PROCEDURE REASON: Body mass index 40.0-44.9, adult (HCC) * * * * Physician Interpretation * * * * EXAMINATION: CHEST RADIOGRAPH (2 VIEW FRONTAL & LATERAL) CLINICAL HISTORY: Body mass index 40.0-44.9, adult (HCC) MQ: XC2_6 EXAM DATE/TIME: 06/02/2022 8:38 AM COMPARISON: No relevant prior studies available. RESULT: Lines, tubes, and devices: None. Lungs and pleura: Small lung volume due to inadequate inspiration. No definite consolidation. No lung mass. No pleural effusion. No pneumothorax. Cardiomediastinal silhouette: Probably unremarkable cardiomediastinal silhouette. Bones and soft tissues: Unremarkable. DIVISION OF RADIOLOGY Provider, [facility] - 06/02/2022 * * *Final Report* * * DATE OF EXAM: Jun 02 2022 8:38AM WOX 5291 - XR CHEST 2V FRONTAL/LAT / PROCEDURE REASON: Body mass index 40.0-44.9, adult (HCC) * * * * Physician Interpretation * * * * EXAMINATION: CHEST RADIOGRAPH (2 VIEW FRONTAL & LATERAL) CLINICAL HISTORY: Body mass index 40.0-44.9, adult (HCC) MQ: XC2_6 EXAM DATE/TIME: 06/02/2022 8:38 AM COMPARISON: No relevant prior studies available. RESULT: Lines, tubes, and devices: None. Lungs and pleura: Small lung volume due to inadequate inspiration. No definite consolidation. No lung mass. No pleural effusion. No pneumothorax. Cardiomediastinal silhouette: Probably unremarkable cardiomediastinal silhouette. Bones and soft tissues: Unremarkable. IMPRESSION IMPRESSION: No acute radiographic abnormality. Day Care Provider: RAMON Transcribe Date/Time: Jun 02 2022 10:25A Dictated by : DEMETRA MEDRANO MD This examination was interpreted and the report reviewed and electronically signed by: DEMETRA MEDRANO MD on Jun 02 2022 10:26AM EST [facility] Radiology Study observation (narrative) [facility] XR Chest PA and LateralOrder ed By: [facility] Provider on 06-02-[address] [facility] SCon 05-23-2021 [facility] REPORT Normal [facility] DATE OF SERVICE: 05/23/2021 HISTORY OF PRESENT ILLNESS: She is a 25-year-old female presenting today with a productive cough, sinus pressure, congestion, and drainage. She has chest discomfort with breathing. She states that she tested positive for COVID-19 in March 2021. She is fully vaccinated. She denies headaches and dizziness, denies abdominal pain, denies back pain. No history of blood clots. SOCIAL, FAMILY, PAST SURGICAL HISTORIES: Reviewed. ALLERGIES: PEANUTS, CEFDINIR. HOME MEDICATIONS: NuvaRing. PHYSICAL EXAMINATION: Blood pressure is 124/88, pulse is 102, respirations 19, temperature 98.6, pulse oximetry 97%. She is alert, in no acute distress. Head is atraumatic, normocephalic. Normal sclerae and conjunctivae. Nose is congested. Oropharynx postnasal drip. Neck is supple. Lungs have coarse breath sounds bilaterally. No rales or labored breathing. Regular rate and rhythm. Abdomen soft, nontender. Skin warm, dry. No clubbing, cyanosis or edema. [facility] PATIENT NAME: SEDA DE LEÓN [address] MEDICAL REC #: [id number] [place] [address] [facility] REPORT [facility] PHYSICIAN IMPRESSION: 1. Sinusitis. 2. Upper respiratory infection with cough and congestion. PLAN: Z-Tunde and Bromfed DM. Rest, fluids, follow up for nonresolution. Irwin Downs MD [id number] SSI File#: [id number] END OF DOCUMENT / CHANGE LOG FOLLOWS Last Edited By Elec. Signed By Irwin Downs MD #Irwin Yeung MD #DAPHNE on 05/29/2021 10:52 ET on 05/29/2021 10:52 ET Revision Number - 2 Verified/Reviewed by 05/29/21 1053 DAPHNE [facility] PATIENT NAME: SEDA DE LEÓN [address] [address] MEDICAL REC #: [id number] [place] [address] [facility] RE[facility] PHYSICIAN Normal [facility] ANES POSTPROC EVALon 021 ANES POSTPROC EVAL HNO ID: [id number] Author: Kimber Melara MD Service: Anesthesiology Author Type: Anesthesiologist Type: Anesthesia Postprocedure Evaluation Filed: 12/02/2020 4:02 PM Note Text: POST ANESTHESIA EVALUATION NOTE : 1995 Procedure Summary Date: 12/02/20 Room / Location: [address] [place] Anesthesia Start: 1415 Anesthesia Stop: 1451 Procedure: EXCISION OF NAIL AND MATRIX FOR PERMANENT REMOVAL (Left Toe third ) Diagnosis: Onychomycosis Surgeons: Kevin Funes Responsible Provider: Kimber Melara MD Anesthesia Type: MAC ASA Status: 2 Anesthesia Type: MAC Last vitals Vitals Value Taken Time BP 127/85 12/02/20 1530 Temp 36.7 ?C (98.1 ?F) 12/02/20 1455 Pulse 66 12/02/20 1530 Resp 16 12/02/20 1530 SpO2 100 % 12/02/20 1530 Post Anesthesia Patient Status Patient Evaluation: PACU. PACU/ICU Patient Condition: stable. Anticipated Disposition: phase 2 then home. Neurological Status: aware and responsive. Pulmonary Status: breathing comfortably on room air Airway Control: returned to baseline unsupported. Cardiovascular Status: stable. Pain Management: clinically adequate - multimodal analgesia pain management approach Postoperative Hydration: acceptable. Intraoperative Events: no significant anesthesia events Post Operative Nausea/Vomiting Status: no significant post operative nausea or vomiting Anesthetic Observations: Recommendation: continue current plan of care. No complications documented. SIGNATURE: Kimber Melara MD PATIENT NAME: Seda De León DATE: December 02, 2020 TIME: 4:01 PM CSN: [id number] [facility] ANES PRE-OPon 12-02-2020 ANES PRE-OP HNO ID: [id number] Author: Kimber Melara MD Service: Anesthesiology Author Type: Anesthesiologist Type: Anesthesia Preprocedure Evaluation Filed: 12/02/2020 11:17 AM Note Text: ANESTHESIOLOGY DAY OF SURGERY NOTE : 1995 Procedure(s) (LRB): EXCISION OF NAIL AND MATRIX FOR PERMANENT REMOVAL (Left) Surgeon(s): Kevin Funes Estimated body mass index is 40.74 kg/m? as calculated from the following: Height as of 11/29/20: 160 cm (5' 3). Weight as of 11/29/20: 104.3 kg (230 lb). Most recent hematocrit and potassium results: Hematocrit 46.1 05/16/2020 Potassium 4.1 05/16/2020 Relevant Problems NEURO-PSYCH (+) History of gestational hypertension (+) Hx of gestational diabetes mellitus, not currently I - PHYSICAL EVALUATION AIRWAY Patient intubated: No. Tracheostomy tube not present Mallampati: II. TM distance: >3 FB. Neck ROM: full ROM without neurological symptoms. Mouth opening: adequate. Short neck: no. Thick neck: no DENTAL Dental findings: teeth intact. Additional exam findings: no II - ANESTHESIA PLAN ASA Score: 2 Anesthetic Plan: MAC The patient is not a current smoker. Monitoring plan: standard ASA. Postoperative analgesic plan: multimodal analgesia. Anesthetic Risks, Benefits, Alternatives, Personnel Discussed. Consent obtained from: patient.Patient / Surrogate agrees to blood products: blood products not planned DNR status not reviewed with patient and/or family prior to surgery. Significant changes in the patient condition since the History and Physical, not otherwise documented in primary service progress note: no. Potential Anesthesia issues that may suggest increased risk of complications or contraindication to planned procedure: none. No vitals data found for the desired time range. Facility-Administered Medications as of 12/02/2020 Medication Dose Route Frequency - lidocaine 10 mg/mL (1 %) 1-2 mg injection (XYLOCAINE) 0.1-0.2 mL INTRADERMAL PRN - lactated ringers iv infusion 5-30 mL/hr INTRAVENOUS CONTINUOUS Outpatient Medications as of 12/02/2020 Medication Sig - cholecalciferol, Vitamin D3, (VITAMIN D3) 1,250 mcg (50,000 unit) cap capsule Take 1 capsule by mouth one time a week. - Etonogestrel-Ethinyl Estradiol (NUVARING) 0.12-0.015 mg/24 hr vaginal ring Use 1 Each vaginally as directed. - acetaminophen (TYLENOL) 325 mg tablet Take 650 mg by mouth every 6 hours as needed. I have interviewed and examined the patient. I have reviewed the medical record and/or the pre-anesthesia evaluation, pertinent labs, and test results. This contains updated information obtained within 48 hours of Surgery/Procedure. SIGNATURE: Kimber Melara MD PATIENT NAME: Seda De León DATE: December 02, 2020 TIME: 11:16 AM CSN: [id number] [facility] BRIEF OP NOTon 12-02-2020 BRIEF OP NOT HNO ID: [id number] Author: Kevin Funes Service: Podiatry Author Type: Physician Type: Brief Op Note Filed: 12/02/2020 2:50 PM Note Text: BRIEF OP NOTE LOG ID: [id number] Surgery/Procedure Date: 12/02/2020 Incision/Procedure Start Time: 2:31 PM Incision Close/Procedure End Time: 2:49 PM Surgeon(s)/Proceduralist( s) and Stock Cutter(s): Surgeon(s) and Role: * Kevin Funes - Primary * Bekah Momin DPM - Resident - Assisting Procedure(s): left 3rd toenail removal with chemical matrixectomy Anesthesia: Monitored Anesthesia Care Findings: severe thickening of left hallux toenail Estimated Blood Loss: 0 ml Specimens: None Complications: None Pre-Op/Pre-Procedure Diagnosis: onychomycosis Post-Op/Post-Procedure Diagnosis: * No post-op diagnosis entered * SIGNATURE: Kevin Funes DPM PATIENT NAME: Seda De León DATE: December 02, 2020 TIME: 2:50 PM PAGER/CONTACT #: [facility] HISTORY PHYSICALon HISTORY PHYSICAL HNO ID: [id number] Author: Kevin Funes Service: Podiatry Author Type: Physician Type: HANDP Filed: 12/02/2020 1:54 PM Note Text: UPDATED HISTORY AND PHYSICAL EXAMINATION SERVICE DATE: 12/02/2020 SERVICE TIME: 1:53 PHYSICAL EXAM MUST BE COMPLETED ON ADMISSION The History and Physical (completed in the past 30 days) has been reviewed and the patient has been examined. The contents accurately reflect the patient's condition with the following additions or revisions since the HANDP was completed. Examination indicates no changes. This HANDP can be found in the Electronic Medical Record. Lungs are clear and symmetrical Heart with regular rate and rhythm Will plan for left 3rd toenail removal via chemical matrixectomy SIGNATURE: Kevin Funes DPM PATIENT NAME: Seda De León DATE: December 02, 2020 TIME: 1:53 PM [facility] NURSING PROGon 12-02-2020 NURSING PROG HNO ID: [id number] Author: Fredis Abraham RN Service: Nursing Author Type: Registered Nurse Type: Nursing Progress Note Filed: 12/02/2020 3:46 PM Note Text: Nursing Progress Note Patient Name: Seda De León Patient Location: [place] Surgery/ME Surgery Daily Note: Lite snack given, family at bedside, no c/o This note was completed by: Fredis Abraham [facility] OPERATIVE NOon 12-02-2020 OPERATIVE NO HNO ID: [id number] Author: Kevin Funes Service: Podiatry Author Type: Physician Type: Operative Report Filed: 12/02/2020 9:25 PM Note Text: OPERATIVE/PROCEDURE REPORT LOG ID: [id number] SURGERY/PROCEDURE DATE: 12/02/2020 INCISION/PROCEDURE START TIME: 2:31 PM INCISION CLOSE/PROCEDURE END TIME: 2:49 PM SURGEON(S)/PROCEDURALIST( S) AND TWISTING FRAME OPERATOR(S): Surgeon(s) and Role: * Kevin Funes - Primary * Bekah Momin DPM - Resident - Assisting No Additional Staff SURGERY/PROCEDURE(S): Left 3rd toenail total phenol matrixectomy ANESTHESIA: Monitored Anesthesia Care SURGERY/PROCEDURE DETAILS: patient is a pleasant 25 year old female who complains of painful dystrophic left 3rd toenail. We discussed various treatment options for the toenail not limited to topical medication vs oral medication vs toenail removal. Patient has elected to proceed with total toenail removal. We discussed risks of the procedure not limited to infection, pain, swelling, bleeding, slow wound healing, recurrent toenail, loss of toe. Patient consents to proceed with total nail removal of left 3rd toe. Of note, patient does have gel nail sinhala on the left 3rd toenail. I attempted to remove this prior to procedure but was unsuccessful. I offered patient chance to reschedule but patient elected to proceed with removal of toenail today. Patient was transferred from the pre-op holding area to the operating room and placed on the operating room table in supine position. She was placed under monitored anesthesia care and a local field block was performed to the left 3rd toe consisting of 3 cc of 1% lidocaine plain. The left 3rd toe was then prepped and draped in the usual aseptic technique. Attention was then directed to the left 3rd toe. A digitial tourniquet was applied to the left 3rd toe. Using an elevator, the left 3rd toenail was freed proximally from the nail bed. The entire nail was then removed. A curette was used to assure no remaining spicule. All nonviable tissue was debrided with tissue nippers. Three applications of phenol administered for 30 seconds was then applied to the left 3rd toe. The toe was then irrigated with saline and the tourniquet was removed. Hemostasis was achieved. The left 3rd toe as then dressed with silvadene, adaptic, billy and coban. Patient was awakened and found to be in stable condition . She was transferred to pacu in stable condition. She will discharge once discharge criteria is met. PRE-OP/PRE-PROCEDURE DIAGNOSIS: onychomycosis of left 3rd toe POST-OP/POST-PROCEDURE DIAGNOSIS: Same as Preop ESTIMATED BLOOD LOSS: 0 ml SPECIMENS: None IMPLANTABLE DEVICES: None DRAINS: None COMPLICATIONS: None PARTICIPATION IN SURGERY/PROCEDURE: I/primary surgeon/proceduralist performed the procedure with assistance. SIGNATURE: Kevin Funes DPM PATIENT NAME: Seda De León DATE: December 02, 2020 TIME: 9:10 PM [facility] XR Wrist - left PA and Later al and Obliqueon 01-12-2020 IMPRESSION: No acute bone or joint space abnormality. Day Care Provider: RAMON Transcribe Date/Time: Jan 12 2020 8:21A Dictated by : Patrick SEXTON MD This examination was interpreted and the report reviewed and electronically signed by: Patrick SEXTON MD on Jan 12 2020 8:23AM [facility] DIVISION OF RADIOLOGY * * *Final Report* * * DATE OF EXAM: Jan 12 2020 8:20AM WOX 5270 - XR WRIST 3V PA/LAT/OBL LT / PROCEDURE REASON: Acute pain of left wrist * * * * Physician Interpretation * * * * EXAM: XR WRIST 3V PA/LAT/OBL LT HISTORY: Acute pain of left wrist. Dorsal carpal bone pain x1 week, no injury. VIEWS: PA, oblique and lateral left wrist. COMPARISON: No relevant comparison. FINDINGS: No dislocation, acute fracture or focal bone lesion. Joint spaces are maintained. No soft tissue calcification. DIVISION OF RADIOLOGY Provider, Cc Imagin g [place] - 01/12/2020 * * *Final Report* * * DATE OF EXAM: Jan 12 2020 8:20AM WOX 5270 - XR WRIST 3V PA/LAT/OBL LT / PROCEDURE REASON: Acute pain of left wrist * * * * Physician Interpretation * * * * EXAM: XR WRIST 3V PA/LAT/OBL LT HISTORY: Acute pain of left wrist. Dorsal carpal bone pain x1 week, no injury. VIEWS: PA, oblique and lateral left wrist. COMPARISON: No relevant comparison. FINDINGS: No dislocation, acute fracture or focal bone lesion. Joint spaces are maintained. No soft tissue calcification. IMPRESSION IMPRESSION: No acute bone or joint space abnormality. Day Care Provider: PSCB Transcribe Date/Time: Jan 12 2020 8:21A Dictated by : Patrick SEXTON MD This examination was interpreted and the report reviewed and electronically signed by: Patrick SEXTON MD on Jan 12 2020 8:23AM EST [facility] Radiology Study observation (narrative) [facility] XR Wrist - left PA and Later al and ObliqueOrdered By: Ccf Provider on 01-12-[address] [facility] CURon 04-09-2019 CUR . MICRO - Microbiology PROCEDURE: Urine Culture [*1] SOURCE: Urine, Clean Catch BODY SITE: COLLECTED DATE/TIME: 04/07/2019 07:15 EST RECEIVED DATE/TIME: 04/07/2019 15:13 EST START DATE/TIME: 04/07/2019 15:13 EST FREE TEXT SOURCE: FINAL REPORTS Final Report [] Verified Date/Time/Personnel: 04/09/2019 07:33 EST 10,000 - 50,000 cfu/ml Multiple bacterial morphotypes present. Probable Contamination. Suggest recollection if clinically indicated. PRELIMINARY REPORTS Preliminary Report [] Verified Date/Time/Personnel: 04/08/2019 08:20 EST No growth to date Performing Locations *1: This test was performed at: [facility], [address] [place] [address], [id number] , [facility] ([place]) Comment on above: Performed By: #### C BC, VAMSI, [facility] #### [address] [address] #### LIP, CMP, HCGQ, GFR #### [place] [address] RESPIDon 04-08-2019 Adenovirus Not Detected Normal Not Detected [facility] ([place]) Comment on above: Order Comment: Order added by [email or web address] Performed By: #### R ESPID #### [place] [address] Bordetella Parapertussis Not Detected Normal Not Detected [facility] ([place]) Comment on above: Order Comment: Order added by [email or web address] Performed By: #### R ESPID #### [place] [address] Bordetella Pertussis Not Detected Normal Not Detected [facility] ([place]) Comment on above: Order Comment: Order added by [email or web address] Performed By: #### R ESPID #### [place] [address] Chlamydophila pneumoniae Not Detected Normal Not Detected [facility] ([place]) Comment on above: Order Comment: Order added by [email or web address] Performed By: #### R ESPID #### [place] [address] Coronavirus 229E Not Detected Normal Not Detected [facility] ([place]) Comment on above: Order Comment: Order added by [email or web address] Performed By: #### R ESPID #### [place] [address] Coronavirus HKU1 Not Detected Normal Not Detected [facility] ([place]) Comment on above: Order Comment: Order added by [email or web address] Performed By: #### R ESPID #### [place] [address] Coronavirus NL63 Not Detected Normal Not Detected [facility] ([place]) Comment on above: Order Comment: Order added by [email or web address] Performed By: #### R ESPID #### [address] [address] Coronavirus OC43 Not Detected Normal Not Detected [facility] ([place]) Comment on above: Order Comment: Order added by [email or web address] Performed By: #### R ESPID #### [address] [address] Human Metapneumovirus Not Detected Normal Not Detected [facility] ([place]) Comment on above: Order Comment: Order added by [email or web address] Performed By: #### R ESPID #### [place] [id number] Influenza A Not Detected Normal Not Detected [facility] ([place]) Comment on above: Order Comment: Order added by [email or web address] Performed By: #### R ESPID #### [place] [address] Influenza B Not Detected Normal Not Detected [facility] ([place]) Comment on above: Order Comment: Order added by [email or web address] Performed By: #### R ESPID #### [place] [id number] Mycoplasma pneumoniae Not Detected Normal Not Detected [facility] ([place]) Comment on above: Order Comment: Order added by [email or web address] Performed By: #### R ESPID #### [place] [id number] Parainfluenza 1 Not Detected Normal Not Detected [facility] ([place]) Comment on above: Order Comment: Order added by [email or web address]_[email or web address] Performed By: #### R ESPID #### [place] [id number] Parainfluenza 2 Not Detected Normal Not Detected [facility] ([place]) Comment on above: Order Comment: Order added by [email or web address] Performed By: #### R ESPID #### [place] [id number] Parainfluenza 3 Not Detected Normal Not Detected [facility] ([place]) Comment on above: Order Comment: Order added by [email or web address] Performed By: #### R ESPID #### [place] [address] Parainfluenza 4 Not Detected Normal Not Detected [facility] ([place]) Comment on above: Order Comment: Order added by [email or web address] Performed By: #### R ESPID #### [place] [address] Respiratory Syncytial Virus Not Detected Normal Not Detected [facility] ([place]) Comment on above: Order Comment: Order added by [email or web address] Performed By: #### R ESPID #### [place] [address] Rhinovirus/Enteroviru s Not Detected Normal Not Detected [facility] ([place]) Comment on above: Order Comment: Order added by [email or web address] Performed By: #### R ESPID #### [place] [address] .Auto Diffon 04-07-2019 Ammonia (P) [Mass/Vol] 0.60 10 3/mcL Normal 0.15-1.00 [facility] ([place]) Comment on above: Performed By: #### VAMSI GONZALEZ ANEU #### [address] [address] #### LIP, CMP, HCGQ, GFR #### [place] [address] Basophils (Bld) [#/Vol] 0.00 10 3/mcL Normal 0.00-0.19 [facility] ([place]) Comment on above: Performed By: #### C VAMSI MARIE ANEU #### [address] [address] #### LIP, CMP, HCGQ, GFR #### [place] [address] Basophils/100 WBC (Bld) 0.2 % Normal 0.0-2.5 [facility] ([place]) Comment on above: Performed By: #### C VAMSI MARIE ANEU #### [place] [address] #### LIP, CMP, HCGQ, GFR #### [address] [address] Eosinophils (Bld) [#/Vol] 0.00 10 3/mcL Normal 0.00-0.40 [facility] ([place]) Comment on above: Performed By: #### C BC, ADIFF, ANEU #### [place] [address] #### LIP, CMP, HCGQ, GFR #### [address] [address] Eosinophils/100 WBC (Bld) 0.2 % Normal 0.0-7.0 [facility] ([place]) Comment on above: Performed By: #### C BC, ADIFF, ANEU #### [place] [address] #### LIP, CMP, HCGQ, GFR #### [address] [address] Lymphocytes (Bld) [#/Vol] 0.70 10 3/mcL Low 0.77-3.85 [facility] ([place]) Comment on above: Performed By: #### C BC, ADIFF, ANEU #### [place] [address] #### LIP, CMP, HCGQ, GFR #### [address] [address] Lymphocytes/100 WBC (Bld) 5.3 % Low 10.0-50.0 [facility] ([place]) Comment on above: Performed By: #### C BC, ADIFF, ANEU #### [place] [address] #### LIP, CMP, HCGQ, GFR #### [address] [address] Monocytes/100 WBC (Bld) 5.1 % Normal 1.7-13.0 [facility] ([place]) Comment on above: Performed By: #### C BC, ADIFF, ANEU #### [address] [address] #### LIP, CMP, HCGQ, GFR #### [address] [address] Neutrophils/100 WBC (Bld) 89.2 % High 37.0-80.0 [facility] ([place]) Comment on above: Performed By: #### C BC, ADIFF, ANEU #### [address] [address] #### LIP, CMP, HCGQ, GFR #### [address] [address] .GFRon 04-07-2019 GFR 100 ml/min/1.73sqm Normal [facility] ([place]) Comment on above: Result Comment: GFR Population mean for , Non- Americans Ages 20-29 = 116 mL/min/1.73 sq.m. Ages 30-39 = 107 mL/min/1.73 sq.m. Ages 40-49 = 99 mL/min/1.73 sq.m. Ages 50-59 = 93 mL/min/1.73 sq.m. Ages 60-69 = 85 mL/min/1.73 sq.m. Ages 70+ = 75 mL/min/1.73 sq.m. Chronic Kidney Disease: Less than 60 mL/min/1.73 square meters End Stage Renal Disease: Less than 15 mL/min/1.73 square meters Performed By: #### C BC, ADIFF, ANEU #### [address] [address] #### LIP, CMP, HCGQ, GFR #### [address] [address] GFR Non- 83 ml/min/1.73sqm Normal [facility] ([place]) Comment on above: Result Comment: GFR Population mean for , Non- Americans Ages 20-29 = 116 mL/min/1.73 sq.m. Ages 30-39 = 107 mL/min/1.73 sq.m. Ages 40-49 = 99 mL/min/1.73 sq.m. Ages 50-59 = 93 mL/min/1.73 sq.m. Ages 60-69 = 85 mL/min/1.73 sq.m. Ages 70+ = 75 mL/min/1.73 sq.m. Chronic Kidney Disease: Less than 60 mL/min/1.73 square meters End Stage Renal Disease: Less than 15 mL/min/1.73 square meters Performed By: #### C BCVAMSI, ANEU #### [place] [address] #### LIP, CMP, HCGQ, GFR #### [address] [address] .NEUABSon 04-07-2019 Neutrophils (Bld) [#/Vol] 11.00 10 3/mcL High 2.85-6.16 [facility] ([place]) Comment on above: Performed By: #### VAMSI GONZALEZ, ANEU #### [place] [address] #### LIP, CMP, HCGQ, GFR #### [place] [address] CBCon 04-07-2019 Erythrocyte distribution width (RBC) [Ratio] 13.9 % Normal 11.5-14.5 [facility] ([place]) Comment on above: Performed By: #### VAMSI GONZALEZ, ANEU #### [place] [address] #### LIP, CMP, HCGQ, GFR #### [place] [address] Hematocrit (Bld) [Volume fraction] 43.9 % Normal 37.0-47.0 [facility] ([place]) Comment on above: Performed By: #### VAMSI GONZALEZ, ANEU #### [place] [address] #### LIP, CMP, HCGQ, GFR #### [place] [address] Hemoglobin (Bld) [Mass/Vol] 14.4 G/dL Normal 12.0-16.0 [facility] ([place]) Comment on above: Performed By: #### C CYNTHIA ADIFF, ANEU #### [place] [address] #### LIP, CMP, HCGQ, GFR #### [address] [address] MCH (RBC) [Entitic mass] 27.5 pg Normal 27.0-31.2 [facility] ([place]) Comment on above: Performed By: #### C CYNTHIA, ADIFF, ANEU #### [place] [address] #### LIP, CMP, HCGQ, GFR #### [place] [address] MCHC (RBC) [Mass/Vol] 32.8 G/dL Low 33.0-37.0 [facility] ([place]) Comment on above: Performed By: #### C CYNTHIA, GISELAIFF, ANEU #### [place] [address] #### LIP, CMP, HCGQ, GFR #### [place] [address] MCV (RBC) [Entitic vol] 83.6 fL Normal 80.0-94.0 [facility] ([place]) Comment on above: Performed By: #### C CYNTHIA, ADIFF, ANEU #### [place] [address] #### LIP, CMP, HCGQ, GFR #### [place] [address] Platelet mean volume (Bld) [Entitic vol] 8.1 fL Normal 7.4-10.4 [facility] ([place]) Comment on above: Performed By: #### C CYNTHIA, ADIFF, ANEU #### [place] [address] #### LIP, CMP, HCGQ, GFR #### [place] [address] Platelets (Bld) [#/Vol] 368 10 3/mcL Normal 130-400 [facility] ([place]) Comment on above: Performed By: #### C CYNTHIA ADIFF, ANEU #### [place] [address] #### LIP, CMP, HCGQ, GFR #### [address] [address] RBC (Bld) [#/Vol] 5.26 10 6/mcL Normal 4.20-5.40 [facility] ([place]) Comment on above: Performed By: #### C CYNTHIA ADIFF, ANEU #### [place] [address] #### LIP, CMP, HCGQ, GFR #### [address] [address] WBC (Bld) [#/Vol] 12.40 10 3/mcL High 4.60-10.80 [facility] ([place]) Comment on above: Performed By: #### C VAMSI MARIE, ANEU #### [place] [address] #### LIP, CMP, HCGQ, GFR #### [place] [address] CMPon 04-07-2019 Albumin [Mass/Vol] 3.4 G/dL Low 3.5-5.0 [facility] ([place]) Comment on above: Performed By: #### C GISELA MARIEIFF, ANEU #### [place] [address] #### LIP, CMP, HCGQ, GFR #### [place] [address] Albumin/Globulin [Mass ratio] 0.9 {ratio} Low 1.1-2.5 [facility] ([place]) Comment on above: Performed By: #### Noemy MARIE, ADIFF, ANEU #### [place] [address] #### LIP, CMP, HCGQ, GFR #### [place] [address] ALP [Catalytic activity/Vol] 104 U/L Normal 40-135 [facility] ([place]) Comment on above: Performed By: #### C BC, ADIFF, ANEU #### [address] [address] #### LIP, CMP, HCGQ, GFR #### [address] [address] ALT [Catalytic activity/Vol] 24 U/L Normal 10-35 [facility] ([place]) Comment on above: Performed By: #### C BC, ADIFF, ANEU #### [address] [address] #### LIP, CMP, HCGQ, GFR #### [address] [address] AST [Catalytic activity/Vol] 18 U/L Normal 10-40 [facility] ([place]) Comment on above: Performed By: #### C BC, ADIFF, ANEU #### [place] [address] #### LIP, CMP, HCGQ, GFR #### [address] [address] Bili Total 0.3 mg/dL Normal 0.2-1.0 [facility] ([place]) Comment on above: Performed By: #### C BC, ADIFF, ANEU #### [place] [address] #### LIP, CMP, HCGQ, GFR #### [address] [address] Calcium [Mass/Vol] 8.6 mg/dL Normal 8.4-10.2 [facility] ([place]) Comment on above: Performed By: #### C BC, ADIFF, ANEU #### [address] [address] #### LIP, CMP, HCGQ, GFR #### [address] [address] Chloride [Moles/Vol] 102 mmol/L Normal 98-107 [facility] ([place]) Comment on above: Performed By: #### C BC, ADIFF, ANEU #### [address] [address] #### LIP, CMP, HCGQ, GFR #### [address] [address] CO2 [Moles/Vol] 21 mmol/L Low 22-29 [facility] ([place]) Comment on above: Performed By: #### C BC, ADIFF, ANEU #### [address] [address] #### LIP, CMP, HCGQ, GFR #### [address] [address] Creatinine [Mass/Vol] 0.86 mg/dL Normal 0.55-1.02 [facility] ([place]) Comment on above: Performed By: #### C BC, ADIFF, ANEU #### [place] [address] #### LIP, CMP, HCGQ, GFR #### [place] [address] Electrolyte Balance 13.0 mEq/L Normal [facility] ([place]) Comment on above: Performed By: #### C BC, ADIFF, ANEU #### [place] [address] #### LIP, CMP, HCGQ, GFR #### [address] [address] Globulin (S) [Mass/Vol] 3.7 G/dL Normal [facility] ([place]) Comment on above: Performed By: #### C BC, ADIFF, ANEU #### [address] [address] #### LIP, CMP, HCGQ, GFR #### [address] [address] Glucose [Mass/Vol] 150 mg/dL High 70-105 [facility] ([place]) Comment on above: Performed By: #### C BC, ADIFF, ANEU #### [place] [id number] #### LIP, CMP, HCGQ, GFR #### [address] [address] Potassium [Moles/Vol] 3.8 mmol/L Normal 3.5-5.1 [facility] ([place]) Comment on above: Performed By: #### C BC, ADIFF, ANEU #### [address] [address] #### LIP, CMP, HCGQ, GFR #### [address] [address] Protein [Mass/Vol] 7.1 G/dL Normal 6.4-8.2 [facility] ([place]) Comment on above: Performed By: #### C BC, ADIFF, ANEU #### [address] [address] #### LIP, CMP, HCGQ, GFR #### [address] [address] Sodium [Moles/Vol] 136 mmol/L Normal 136-145 [facility] ([place]) Comment on above: Performed By: #### C BC, ADIFF, ANEU #### [address] [address] #### LIP, CMP, HCGQ, GFR #### [address] [address] Urea nitrogen [Mass/Vol] 14 mg/dL Normal 7-18 [facility] ([place]) Comment on above: Performed By: #### C BC, ADIFF, ANEU #### [address] [address] #### LIP, CMP, HCGQ, GFR #### [address] [address] Urea nitrogen/Creatinine [Mass ratio] 16 ratio Normal 7-27 [facility] ([place]) Comment on above: Performed By: #### C BC, ADIFF, ANEU #### [address] [address] #### LIP, CMP, HCGQ, GFR #### [address] [address] HCGQon 04-07-2019 hCG, quantitative [address].8 mIU/mL Normal [facility] ([place]) Comment on above: Result Comment: HCG Quantitative 3 Weeks Gestation mIU/mL 5.0 to 12.0 HCG Quantitative 4 Weeks Gestation mIU/mL 10.0 to 708.0 HCG Quantitative 5 Weeks Gestation mIU/mL 217.0 to 8245.0 HCG Quantitative 6 Weeks Gestation mIU/mL 152.0 to 32,177.0 HCG Quantitative 7 Weeks Gestation mIU/mL 4059.0 to 153,767.0 HCG Quantitative 8 Weeks Gestation mIU/mL 31,366.0 to 149,094.0 HCG Quantitative 9 Weeks Gestation mIU/mL 59,109.0 to 135,901.0 HCG Quantitative 10 Weeks Gestation mIU/mL 44,186.0 to 170,409.0 HCG Quantitative 12 Weeks Gestation mIU/mL 27,107.0 to 201,615.0 HCG Quantitative 14 Weeks Gestation mIU/mL 24,302.0 to 93,646.0 Performed By: #### VAMSI GONZALEZ ANEU #### [address] [address] #### LIP, CMP, HCGQ, GFR #### [place] [address] LIPon 04-07-2019 Lipase Level 59 U/L Low 73-393 [facility] ([place]) Comment on above: Performed By: #### VAMSI GONZALEZ, ANEU #### [place] [address] #### LIP, CMP, HCGQ, GFR #### [place] [address] RFLUon 04-07-2019 RFLU . MICRO - Microbiology PROCEDURE: Rapid Flu A+B Screen w Confirm if Ind [*1] SOURCE: Nares BODY SITE: COLLECTED DATE/TIME: 04/07/2019 07:15 EST RECEIVED DATE/TIME: 04/07/2019 07:27 EST START DATE/TIME: 04/07/2019 07:27 EST FREE TEXT SOURCE: FINAL REPORTS Final Report [] Verified Date/Time/Personnel: 04/07/2019 07:47 EST Specimen is negative for the presence of influenza A antigen. . Specimen is negative for the presence of influenza B antigen. . Inadequate specimen collection, improper sample handling and/or low levels of viral shedding may yield a false-negative result. . The optimal specimen type for the Rapid Flu test is a nasopharyngeal wash/aspirate or nasopharyngeal swab. All negative rapid tests for Flu A and Flu B will be confirmed with a Respiratory Id Panel by PCR. . Assay method employs immunofluorescence technology. Performing Locations *1: This test was performed at: [address] ([place]) Comment on above: Performed By: #### R FLU #### [place] [address] UAon 04-07-2019 Color (U) Yellow Normal [facility] ([place]) Comment on above: Performed By: #### U A #### [place] [address] Glucose (U) [Mass/Vol] Negative Normal Negative [facility] ([place]) Comment on above: Performed By: #### U A #### [place] [address] Ketones Ql (U) Trace Negative [facility] ([place]) Comment on above: Performed By: #### U A #### [place] [address] UA Appear Clear Normal Clear [facility] ([place]) Comment on above: Performed By: #### U A #### [place] [address] UA Blood Negative Normal Negative [facility] ([place]) Comment on above: Performed By: #### U A #### [place] [id number] UA Leuk Est Negative Normal Negative [facility] ([place]) Comment on above: Performed By: #### U A #### [place] [address] UA Nitrite Negative Normal Negative [facility] ([place]) Comment on above: Performed By: #### U A #### [place] [address] UA pH 6.0 Normal 5.0 - 8.0 [facility] ([place]) Comment on above: Performed By: #### U A #### [address] [address] UA Protein Negative Normal Negative [facility] ([place]) Comment on above: Performed By: #### U A #### [address] [address] UA Spec Grav >=1.030 1.015-1.025 [facility] ([place]) Comment on above: Performed By: #### U A #### [address] [address] UA Specimen Type Clean Catch Normal [facility] ([place]) Comment on above: Performed By: #### U A #### [address] [address] UA Urobilinogen 0.2 E.U./dL Normal 0.2-1.0 [facility] ([place]) Comment on above: Performed By: #### U A #### [address] [address] Urobilinogen Qn (U) Negative Normal Negative [facility] ([place]) Comment on above: Performed By: #### U A #### [address] [address] Surgical Tissue Examon 08-30 Surgical Tissue Exam Test performed at [place] [address] NAME: SEDA DE LEÓN REQUESTING: ATIYA MCKEE MD FINAL DIAGNOSIS: LAPAROSCOPIC CHOLECYSTECTOMY - CHRONIC CHOLECYSTITIS. OPERATIVE PROCEDURE: Laparoscopic cholecystectomy with cholangiograms CLINICAL INFORMATION: RUQ abdominal pain [R10.11] GROSS DESCRIPTION: Gallbladder Received in formalin labeled gallbladder is a specimen consisting of a gallbladder measuring 4.3 x 2.4 x 1.2 cm. A perforation is not present. The lumen contains bile. The serosal surface is pink-purple and smooth. The wall of the specimen measures 0.1 cm in thickness. Calcluli are not present. A calculus is not impacted in the cystic duct. Upon sectioning the folds, the mucosal surface displays a focus of prominent mucosal folds measuring 1.4 x 1.2 x 0.5 cm. Upon sectioning, it displays a white smooth cut surface. The remainder of the mucosal surface is green, bile stained, and slightly hemorrhagic. Tissue is submitted as follows: 1 - physician relations representative sections of gallbladder; 2-3 focus of mucosal folds- fungating mass, totally submitted. KVB:[email or web address] QUIROZ M.D. (Electronic signature on file) Signed out: 09/01/2018 12:12 PRINTED: 09/01/[address] [facility] Comment on above: Performed By: #### S URG #### [place] [address] Urine HCG, Qual.on 9 HCG.beta subunit ( test) Ql (U) Negative Normal Negative [facility] Comment on above: Performed By: #### L HCG2 #### [place] [address] Specific [place], Ur >=1.030 Normal 1.005-1.030 [facility] Comment on above: Performed By: #### L HCG2 #### [facility] [address] [place], [place] [address] Vital Signs Date Time Vital Sign Value Performing Clinician Facility 09-21-2024 09:59-0400 Body mass index (BMI) [Ratio] 33.8 kg/m2 Sandra Edwards MD Work Phone: [facility] 09-21-2024 09:59-0400 Body weight 86.55 kg Sandra Edwards MD Work Phone: [facility] 09-21-2024 09:59-0400 Diastolic blood pressure 77 mm[Hg] Sandra Edwards MD Work Phone: [facility] 09-21-2024 09:59-0400 Systolic blood pressure 118 mm[Hg] Sandra Edwards MD Work Phone: [facility] 09-07-2024 09:53-0400 Body mass index (BMI) [Ratio] 32.42 kg/m2 Chelsea Navarro MD Work Phone: [facility] 09-07-2024 09:53-0400 Body weight 83.01 kg Chelsea Navarro MD Work Phone: [facility] 09-07-2024 09:53-0400 Diastolic blood pressure 72 mm[Hg] Chelsea Navarro MD Work Phone: [facility] 09-07-2024 09:53-0400 Systolic blood pressure 116 mm[Hg] Chelsea Navarro MD Work Phone: [facility] 08-29-2024 08:38-0400 Body mass index (BMI) [Ratio] 33.13 kg/m2 Eddi Sneed MD Work Phone: [facility] 08-29-2024 08:38-0400 Body weight 84.82 kg Eddi Sneed MD Work Phone: [facility] Comment on above: self-reported from OB visit 08/29/24 08-29-2024 08:38-0400 Diastolic blood pressure 68 mm[Hg] Eddi Sneed MD Work Phone: [facility] Comment on above: self-reported from OB visit 08/29/24 08-29-2024 08:38-0400 Heart rate 74 /min Eddi Sneed MD Work Phone: [facility] 08-29-2024 08:38-0400 Respiratory rate 18 /min Eddi Sneed MD Work Phone: [facility] 08-29-2024 08:38-0400 SaO2% (BldA) [Mass fraction] 98 % Eddi Sneed MD Work Phone: [facility] 08-29-2024 08:38-0400 Systolic blood pressure 100 mm[Hg] Eddi Sneed MD Work Phone: [facility] Comment on above: self-reported from OB visit 08/29/24 08-29-2024 08:08-0400 Body mass index (BMI) [Ratio] 33.13 kg/m2 Inna Garcia MD Work Phone: [facility] 08-29-2024 08:08-0400 Body weight 84.82 kg Inna Garcia MD Work Phone: [facility] 08-29-2024 08:08-0400 Diastolic blood pressure 68 mm[Hg] Inna Garcia MD Work Phone: [facility] 08-29-2024 08:08-0400 Systolic blood pressure 100 mm[Hg] Inna Garcia MD Work Phone: [facility] 08-14-2024 13:34-0400 Body mass index (BMI) [Ratio] 31.21 kg/m2 Sandra Edwards MD Work Phone: [facility] 08-14-2024 13:34-0400 Body weight 79.92 kg Sandra Edwards MD Work Phone: [facility] 08-14-2024 13:34-0400 Diastolic blood pressure 70 mm[Hg] Sandra Edwards MD Work Phone: [facility] 08-14-2024 13:34-0400 Systolic blood pressure 110 mm[Hg] Sandra Edwards MD Work Phone: [facility] 07-24-2024 07:57-0400 Body mass index (BMI) [Ratio] 30.65 kg/m2 Jimmie Wang MD Work Phone: [facility] 07-24-2024 07:57-0400 Body weight 78.47 kg Jimmie Wang MD Work Phone: [facility] 07-24-2024 07:57-0400 Diastolic blood pressure 64 mm[Hg] Jimmie Wang MD Work Phone: [facility] 07-24-2024 07:57-0400 Systolic blood pressure 110 mm[Hg] Jimmie Wang MD Work Phone: [facility] 06-28-2024 08:14-0400 Body temperature 98.2 [degF] Treatment Wstr Work Phone: [facility] 06-28-2024 08:14-0400 Diastolic blood pressure 71 mm[Hg] Treatment Wstr Work Phone: [facility] 06-28-2024 08:14-0400 Heart rate 98 /min Treatment Wstr Work Phone: [facility] 06-28-2024 08:14-0400 Respiratory rate 16 /min Treatment Wstr Work Phone: [facility] 06-28-2024 08:14-0400 SaO2% (BldA) [Mass fraction] 99 % Treatment Wstr Work Phone: [facility] 06-28-2024 08:14-0400 Systolic blood pressure 109 mm[Hg] Treatment Wstr Work Phone: [facility] 06-23-2024 22:22-0400 Diastolic blood pressure 70 mm[Hg] Natalie LUCAS Work Phone: [facility] 06-23-2024 22:22-0400 Heart rate 80 /min Natalie Blum PA Work Phone: [facility] 06-23-2024 22:22-0400 Systolic blood pressure 115 mm[Hg] Natalie Blum PA Work Phone: [facility] 06-23-2024 22:18-0400 SaO2% (BldA) [Mass fraction] 100 % Natalie LUCAS Work Phone: [facility] 06-23-2024 22:08-0400 Body height 165.1 cm Natalie LUCAS Work Phone: [facility] 06-23-2024 22:08-0400 Body mass index (BMI) [Ratio] 27.5 kg/m2 Natalie LUCAS Work Phone: [facility] 06-23-2024 22:08-0400 Body weight 75.11 kg Natalie Blum PA Work Phone: [facility] 06-23-2024 11:18-0400 Body temperature 97.9 [degF] Treatment Wstr Work Phone: [facility] 06-23-2024 11:18-0400 Diastolic blood pressure 76 mm[Hg] Treatment Wstr Work Phone: [facility] 06-23-2024 11:18-0400 Heart rate 87 /min Treatment Wstr Work Phone: [facility] 06-23-2024 11:18-0400 Respiratory rate 16 /min Treatment Wstr Work Phone: [facility] 06-23-2024 11:18-0400 SaO2% (BldA) [Mass fraction] 99 % Treatment Wstr Work Phone: [facility] 06-23-2024 11:18-0400 Systolic blood pressure 116 mm[Hg] Treatment Wstr Work Phone: [facility] 06-23-2024 08:53-0400 Body mass index (BMI) [Ratio] 29.05 kg/m2 Inna Garcia MD Work Phone: [facility] 06-23-2024 08:53-0400 Body weight 74.39 kg Inna Garcia MD Work Phone: [facility] 06-23-2024 08:53-0400 Diastolic blood pressure 64 mm[Hg] Inna Garcia MD Work Phone: [facility] 06-23-2024 08:53-0400 Systolic blood pressure 118 mm[Hg] Inna Garcia MD Work Phone: [facility] 06-22-2024 14:53-0400 Body mass index (BMI) [Ratio] 29.26 kg/m2 Eddi Sneed MD Work Phone: [facility] 06-22-2024 14:53-0400 Body temperature 97.7 [degF] Eddi Sneed MD Work Phone: [facility] 06-22-2024 14:53-0400 Body weight 74.93 kg Eddi Sneed MD Work Phone: [facility] 06-22-2024 14:53-0400 Heart rate 111 /min Eddi Sneed MD Work Phone: [facility] 06-22-2024 14:53-0400 SaO2% (BldA) [Mass fraction] 98 % Eddi Sneed MD Work Phone: [facility] 06-21-2024 09:33-0400 Body temperature 97.11 [degF] Treatment Wstr Work Phone: [facility] 06-21-2024 09:33-0400 Diastolic blood pressure 73 mm[Hg] Treatment Wstr Work Phone: [facility] 06-21-2024 09:33-0400 Heart rate 82 /min Treatment Wstr Work Phone: [facility] 06-21-2024 09:33-0400 SaO2% (BldA) [Mass fraction] 100 % Treatment Wstr Work Phone: [facility] 06-21-2024 09:33-0400 Systolic blood pressure 117 mm[Hg] Treatment Wstr Work Phone: [facility] 05-31-2024 15:31-0400 Body mass index (BMI) [Ratio] 28.31 kg/m2 Angie Mora MD Work Phone: [facility] 05-31-2024 15:31-0400 Body weight 72.48 kg Angie Mora MD Work Phone: [facility] 05-31-2024 15:31-0400 Diastolic blood pressure 80 mm[Hg] Angie Mora MD Work Phone: [facility] 05-31-2024 15:31-0400 Systolic blood pressure 120 mm[Hg] Angie Mora MD Work Phone: [facility] 04-26-2024 10:14-0500 Body mass index (BMI) [Ratio] 26.57 kg/m2 Ivett Laguerre APRN.CNM Work Phone: [facility] 04-26-2024 10:14-0500 Body weight 68.04 kg Ivett Plotts [employer] OPER[employer].CNM Work Phone: [facility] 04-26-2024 10:14-0500 Diastolic blood pressure 82 mm[Hg] Ivett Plotts [employer] OPERATOR.CNM Work Phone: [facility] 04-26-2024 10:14-0500 Systolic blood pressure 120 mm[Hg] Ivett Plotts [employer] OPERATOR.CNM Work Phone: [facility] 03-31-2024 08:19-0500 Body mass index (BMI) [Ratio] 26.15 kg/m2 Kayy Plainfield [employer] OPER[employer].BLENDER LABORER Work Phone: [facility] 03-31-2024 08:19-0500 Body weight 66.95 kg Kayy Jet [employer] OPER[employer].BLENDER LABORER Work Phone: [facility] 03-31-2024 08:19-0500 Diastolic blood pressure 62 mm[Hg] Kayy Jet [employer] OPERATOR.BLENDER LABORER Work Phone: [facility] 03-31-2024 08:19-0500 Systolic blood pressure 116 mm[Hg] Kayy Jet [employer] OPERATOR.BLENDER LABORER Work Phone: [facility] 02-02-2024 10:16-0500 Body mass index (BMI) [Ratio] 26.04 kg/m2 Jimmie Wang MD Work Phone: [facility] 02-02-2024 10:16-0500 Body weight 66.68 kg Jimmie Wang MD Work Phone: [facility] 02-02-2024 10:16-0500 Diastolic blood pressure 74 mm[Hg] Jimmie Wang MD Work Phone: [facility] 02-02-2024 10:16-0500 Systolic blood pressure 118 mm[Hg] Jimmie Wang MD Work Phone: [facility] 09-13-2023 10:26-0400 Body mass index (BMI) [Ratio] 26.68 kg/m2 Kayy [place] [employer] OPER[employer].BLENDER LABORER Work Phone: [facility] 09-13-2023 10:26-0400 Body weight 68.31 kg Kayy Jet [employer] OPERATOR.BLENDER LABORER Work Phone: [facility] 09-13-2023 10:26-0400 Diastolic blood pressure 70 mm[Hg] Kayy Jet [employer] OPERATOR.BLENDER LABORER Work Phone: [facility] 09-13-2023 10:26-0400 Systolic blood pressure 120 mm[Hg] Kayy Jet [employer] OPERATOR.BLENDER LABORER Work Phone: [facility] 07-13-2023 10:01-0400 Body mass index (BMI) [Ratio] 29.58 kg/m2 Angie Mora MD Work Phone: [facility] 07-13-2023 10:01-0400 Body weight 75.75 kg Angie Mora MD Work Phone: [facility] 07-13-2023 10:01-0400 Diastolic blood pressure 84 mm[Hg] Angie Mora MD Work Phone: [facility] 07-13-2023 10:01-0400 Systolic blood pressure 126 mm[Hg] Angie Mora MD Work Phone: [facility] 07-06-2023 09:01-0400 Body temperature 97.5 [degF] [facility] 07-06-2023 09:01-0400 Diastolic blood pressure 85 mm[Hg] [facility] 07-06-2023 09:01-0400 Heart rate 68 /min [facility] 07-06-2023 09:01-0400 Respiratory rate 16 /min [facility] 07-06-2023 09:01-0400 SaO2% (BldA) [Mass fraction] 98 % [facility] 07-06-2023 09:01-0400 Systolic blood pressure 124 mm[Hg] [facility] 07-04-2023 07:11-0400 Body height 160.02 cm [facility] 07-04-2023 07:11-0400 Body mass index (BMI) [Ratio] 34.2 kg/m2 [facility] 07-04-2023 07:11-0400 Body weight 87.54 kg [facility] 07-02-2023 16:51-0400 Diastolic blood pressure 87 mm[Hg] [facility] 07-02-2023 16:51-0400 Heart rate 75 /min [facility] 07-02-2023 16:51-0400 Systolic blood pressure 125 mm[Hg] [facility] 07-02-2023 16:03-0400 Body mass index (BMI) [Ratio] 34 kg/m2 [facility] 07-02-2023 16:03-0400 Body weight 87.08 kg [facility] 07-02-2023 11:06-0400 Diastolic blood pressure 76 mm[Hg] Ob Ultrasound Work Phone: [facility] 07-02-2023 11:06-0400 Systolic blood pressure 120 mm[Hg] Ob Ultrasound Work Phone: [facility] 06-28-2023 10:13-0400 Body weight 85.28 kg Angie Mora MD Work Phone: [facility] 06-28-2023 10:13-0400 Diastolic blood pressure 84 mm[Hg] Angie Mora MD Work Phone: [facility] 06-28-2023 10:13-0400 Systolic blood pressure 129 mm[Hg] Angie Mora MD Work Phone: [facility] 06-25-2023 10:52-0400 Diastolic blood pressure 76 mm[Hg] Jimmie Wang MD Work Phone: [facility] 06-25-2023 10:52-0400 Systolic blood pressure 116 mm[Hg] Jimmie Wang MD Work Phone: [facility] 06-21-2023 13:17-0400 Body weight 83.92 kg Angie Mora MD Work Phone: [facility] 06-21-2023 13:17-0400 Diastolic blood pressure 81 mm[Hg] Angie Mora MD Work Phone: [facility] 06-21-2023 13:17-0400 Systolic blood pressure 132 mm[Hg] Angie Mora MD Work Phone: [facility] 06-18-2023 14:25-0400 Diastolic blood pressure 80 mm[Hg] Ob Ultrasound Work Phone: [facility] 06-18-2023 14:25-0400 Systolic blood pressure 110 mm[Hg] Ob Ultrasound Work Phone: [facility] 06-14-2023 14:18-0400 Body weight 83.92 kg Inna Garcia MD Work Phone: [facility] 06-14-2023 14:18-0400 Diastolic blood pressure 85 mm[Hg] Inna Garcia MD Work Phone: [facility] 06-14-2023 14:18-0400 Systolic blood pressure 132 mm[Hg] Inna Garcia MD Work Phone: [facility] 06-12-2023 00:11-0400 Heart rate 89 /min [facility] 06-12-2023 00:11-0400 SaO2% (BldA) [Mass fraction] 99 % [facility] 06-12-2023 00:06-0400 Heart rate 96 /min [facility] 06-12-2023 00:06-0400 SaO2% (BldA) [Mass fraction] 98 % [facility] 06-11-2023 22:18-0400 Body height 160.02 cm [facility] 06-11-2023 22:18-0400 Body mass index (BMI) [Ratio] 32.4 kg/m2 [facility] 06-11-2023 22:18-0400 Body weight 83 kg [facility] 06-11-2023 22:14-0400 Body temperature 98 [degF] [facility] 06-11-2023 22:14-0400 Respiratory rate 18 /min [facility] 06-11-2023 22:08-0400 Diastolic blood pressure 73 mm[Hg] [facility] 06-11-2023 22:08-0400 Systolic blood pressure 120 mm[Hg] [facility] 06-10-2023 13:29-0400 Diastolic blood pressure 76 mm[Hg] [facility] 06-10-2023 13:29-0400 Heart rate 84 /min [facility] 06-10-2023 13:29-0400 Systolic blood pressure 122 mm[Hg] [facility] 06-10-2023 11:23-0400 Body height 160.02 cm [facility] 06-10-2023 11:23-0400 Body weight 85.27 kg [facility] 06-10-2023 09:42-0400 Diastolic blood pressure 56 mm[Hg] [facility] 06-10-2023 09:42-0400 Heart rate 130 /min [facility] 06-10-2023 09:42-0400 SaO2% (BldA) [Mass fraction] 99 % [facility] 06-10-2023 09:42-0400 Systolic blood pressure 98 mm[Hg] [facility] 06-10-2023 03:03-0400 Body temperature 97.4 [degF] [facility] 06-10-2023 03:03-0400 Respiratory rate 16 /min [facility] 06-07-2023 09:50-0400 Body weight 83.92 kg Inna Garcia MD Work Phone: [facility] 06-07-2023 09:50-0400 Diastolic blood pressure 73 mm[Hg] Inna Garcia MD Work Phone: [facility] 06-07-2023 09:50-0400 Systolic blood pressure 113 mm[Hg] Inna Garcia MD Work Phone: [facility] 06-03-2023 13:23-0400 Body temperature 97.9 [degF] Treatment Wstr Work Phone: [facility] 06-03-2023 13:23-0400 Diastolic blood pressure 76 mm[Hg] Treatment Wstr Work Phone: [facility] 06-03-2023 13:23-0400 Heart rate 93 /min Treatment Wstr Work Phone: [facility] 06-03-2023 13:23-0400 Respiratory rate 20 /min Treatment Wstr Work Phone: [facility] 06-03-2023 13:23-0400 Systolic blood pressure 107 mm[Hg] Treatment Wstr Work Phone: [facility] 06-01-2023 13:58-0400 Body weight 84.28 kg Inna Garcia MD Work Phone: [facility] 06-01-2023 13:58-0400 Diastolic blood pressure 82 mm[Hg] Inna Garcia MD Work Phone: [facility] 06-01-2023 13:58-0400 Systolic blood pressure 121 mm[Hg] Inna Garcia MD Work Phone: [facility] 05-26-2023 15:30-0400 Body weight 83.46 kg Jimmie Wang MD Work Phone: [facility] 05-26-2023 15:30-0400 Diastolic blood pressure 70 mm[Hg] Jimmie Wang MD Work Phone: [facility] 05-26-2023 15:30-0400 Systolic blood pressure 118 mm[Hg] Jimmie Wang MD Work Phone: [facility] 05-26-2023 14:44-0400 Body temperature 97.59 [degF] Treatment Wstr Work Phone: [facility] 05-26-2023 14:44-0400 Diastolic blood pressure 78 mm[Hg] Treatment Wstr Work Phone: [facility] 05-26-2023 14:44-0400 Heart rate 94 /min Treatment Wstr Work Phone: [facility] 05-26-2023 14:44-0400 Respiratory rate 16 /min Treatment Wstr Work Phone: [facility] 05-26-2023 14:44-0400 SaO2% (BldA) [Mass fraction] 98 % Treatment Wstr Work Phone: [facility] 05-26-2023 14:44-0400 Systolic blood pressure 114 mm[Hg] Treatment Wstr Work Phone: [facility] 05-25-2023 13:46-0400 Body height [address] [facility] 05-25-2023 13:46-0400 Body weight 84.[address] [facility] 05-24-2023 10:58-0400 Diastolic blood pressure 71 mm[Hg] Treatment Wstr Work Phone: [facility] 05-24-2023 10:58-0400 Heart rate 88 /min Treatment Wstr Work Phone: [facility] 05-24-2023 10:58-0400 Systolic blood pressure 103 mm[Hg] Treatment Wstr Work Phone: [facility] 05-24-2023 09:57-0400 Body temperature 98.01 [degF] Treatment Wstr Work Phone: [facility] 05-24-2023 09:57-0400 Respiratory rate 20 /min Treatment Wstr Work Phone: [facility] 05-19-2023 08:02-0500 Body weight 81.65 kg Jimmie Wang MD Work Phone: [facility] 05-19-2023 08:02-0500 Diastolic blood pressure 60 mm[Hg] Jimmie Wang MD Work Phone: [facility] 05-19-2023 08:02-0500 Systolic blood pressure 110 mm[Hg] Jimmie Wang MD Work Phone: [facility] 05-17-2023 14:36-0500 Body height 160.02 cm [facility] 05-17-2023 14:36-0500 Body mass index (BMI) [Ratio] 31.9 kg/m2 [facility] 05-17-2023 14:36-0500 Body weight 81.9 kg [facility] 05-17-2023 14:32-0500 Diastolic blood pressure 73 mm[Hg] [facility] 05-17-2023 14:32-0500 Heart rate 85 /min [facility] 05-17-2023 14:32-0500 Systolic blood pressure 111 mm[Hg] [facility] 05-17-2023 14:31-0500 Body temperature 98.6 [degF] [facility] 05-17-2023 14:31-0500 Respiratory rate 16 /min [facility] 05-17-2023 14:31-0500 SaO2% (BldA) [Mass fraction] 97 % [facility] 04-28-2023 13:38-0500 Body weight 80.74 kg Jimmie Wang MD Work Phone: [facility] 04-28-2023 13:38-0500 Diastolic blood pressure 68 mm[Hg] Jimmie Wang MD Work Phone: [facility] 04-28-2023 13:38-0500 Systolic blood pressure 120 mm[Hg] Jimmie Wang MD Work Phone: [facility] 04-12-2023 23:44-0500 Diastolic blood pressure 75 mm[Hg] [facility] 04-12-2023 23:44-0500 Heart rate 73 /min [facility] 04-12-2023 23:44-0500 Respiratory rate 17 /min [facility] 04-12-2023 23:44-0500 SaO2% (BldA) [Mass fraction] 98 % [facility] 04-12-2023 23:44-0500 Systolic blood pressure 110 mm[Hg] [facility] 04-12-2023 19:37-0500 Body height 160.02 cm [facility] 04-12-2023 19:37-0500 Body mass index (BMI) [Ratio] 30.7 kg/m2 [facility] 04-12-2023 19:37-0500 Body temperature 97.7 [degF] [facility] 04-12-2023 19:37-0500 Body weight 78.56 kg [facility] 02-18-2023 23:52-0500 Heart rate 66 /min [facility] 02-18-2023 23:52-0500 Respiratory rate 15 /min [facility] 02-18-2023 23:52-0500 SaO2% (BldA) [Mass fraction] 100 % [facility] 02-18-2023 20:14-0500 Body height 160.02 cm [facility] 02-18-2023 20:14-0500 Body mass index (BMI) [Ratio] 29.2 kg/m2 [facility] 02-18-2023 20:14-0500 Body temperature 97.6 [degF] [facility] 02-18-2023 20:14-0500 Body weight 74.84 kg [facility] 02-18-2023 20:14-0500 Diastolic blood pressure 80 mm[Hg] [facility] 02-18-2023 20:14-0500 Systolic blood pressure 128 mm[Hg] [facility] 01-29-2023 11:01-0500 Body weight 73.03 kg Angie Mora MD Work Phone: [facility] 01-29-2023 11:01-0500 Diastolic blood pressure 74 mm[Hg] Angie Mora MD Work Phone: [facility] 01-29-2023 11:01-0500 Systolic blood pressure 118 mm[Hg] Angie Mora MD Work Phone: [facility] 01-01-2023 10:59-0400 Body height 160 cm Kayy Jet [employer]PER[employer]ER [employer]ORER Work Phone: [facility] 01-01-2023 10:59-0400 Body weight 76.2 kg Kayy Jet [employer] OPERATOR.BLENDER LABORER Work Phone: [facility] 01-01-2023 10:59-0400 Diastolic blood pressure 74 mm[Hg] Kayy Jet [employer] OPERATOR.BLENDER LABORER Work Phone: [facility] 01-01-2023 10:59-0400 Systolic blood pressure 118 mm[Hg] Kayy Longo APRN.BLENDER LABORER Work Phone: [facility] 12-19-2022 20:29-0400 Body mass index (BMI) [Ratio] 29.5 kg/m2 [facility] 12-19-2022 20:29-0400 Body temperature 97.1 [degF] [facility] 12-19-2022 20:29-0400 Body weight 75.74 kg [facility] 12-19-2022 20:29-0400 Diastolic blood pressure 91 mm[Hg] [facility] 12-19-2022 20:29-0400 Heart rate 94 /min [facility] 12-19-2022 20:29-0400 Respiratory rate 15 /min [facility] 12-19-2022 20:29-0400 SaO2% (BldA) [Mass fraction] 100 % [facility] 12-19-2022 20:29-0400 Systolic blood pressure 127 mm[Hg] [facility] 12-17-2022 09:05-0400 Body mass index (BMI) [Ratio] 29.8 kg/m2 [facility] 12-17-2022 09:05-0400 Body temperature 98 [degF] [facility] 12-17-2022 09:05-0400 Body weight 76.4 kg [facility] 12-17-2022 09:05-0400 Diastolic blood pressure 92 mm[Hg] [facility] 12-17-2022 09:05-0400 Heart rate 81 /min [facility] 12-17-2022 09:05-0400 Respiratory rate 14 /min [facility] 12-17-2022 09:05-0400 SaO2% (BldA) [Mass fraction] 98 % [facility] 12-17-2022 09:05-0400 Systolic blood pressure 138 mm[Hg] [facility] 12-17-2022 08:43-0400 Body temperature 97.59 [degF] Steffanie Navarro APRN.CNP Work Phone: [facility] 12-17-2022 08:43-0400 Body weight 76.39 kg Steffanie Navarro APRN.BLENDER LABORER Work Phone: [facility] 12-17-2022 08:43-0400 Diastolic blood pressure 96 mm[Hg] Steffanie Navarro APRN.BLENDER LABORER Work Phone: [facility] 12-17-2022 08:43-0400 Heart rate 73 /min Steffanie Navarro APRN.BLENDER LABORER Work Phone: [facility] 12-17-2022 08:43-0400 Respiratory rate 20 /min Steffanie Navarro APRN.BLENDER LABORER Work Phone: [facility] 12-17-2022 08:43-0400 SaO2% (BldA) [Mass fraction] 100 % Steffanie Navarro APRN.BLENDER LABORER Work Phone: [facility] 12-17-2022 08:43-0400 Systolic blood pressure 120 mm[Hg] Steffanie Navarro APRN.BLENDER LABORER Work Phone: [facility] 11-17-2022 14:37-0400 Diastolic blood pressure 83 mm[Hg] [facility] 11-17-2022 14:37-0400 Heart rate 98 /min [facility] 11-17-2022 14:37-0400 Respiratory rate 18 /min [facility] 11-17-2022 14:37-0400 SaO2% (BldA) [Mass fraction] 93 % [facility] 11-17-2022 14:37-0400 Systolic blood pressure 134 mm[Hg] [facility] 11-17-2022 10:24-0400 Body height 160.02 cm [facility] 11-17-2022 10:24-0400 Body mass index (BMI) [Ratio] 31.5 kg/m2 [facility] 11-17-2022 10:24-0400 Body temperature 97 [degF] [facility] 11-17-2022 10:24-0400 Body weight 80.7 kg [facility] 11-02-2022 12:25-0400 Body height 160 cm Keith Arriaga APRN.BLENDER LABORER Work Phone: [facility] 11-02-2022 12:25-0400 Body temperature 97.59 [degF] Jennalee Chagin [employer] OPER[employer]ENDER [employer]ORER Work Phone: [facility] 11-02-2022 12:25-0400 Body weight 83.42 kg Jennalee Chagin [employer] OPERATOR.BLENDER LABORER Work Phone: [facility] 11-02-2022 12:25-0400 Diastolic blood pressure 86 mm[Hg] Jennalee Chagin [employer] OPERATOR.BLENDER LABORER Work Phone: [facility] 11-02-2022 12:25-0400 Heart rate 86 /min Jennalee Chagin [employer] OPERATOR.BLENDER LABORER Work Phone: [facility] 11-02-2022 12:25-0400 Respiratory rate 18 /min Jennalee Chagin [employer]ANT OPERATOR.BLENDER LABORER Work Phone: [facility] 11-02-2022 12:25-0400 SaO2% (BldA) [Mass fraction] 97 % Jennalee Chagin [employer] PLANT OPERATOR.BLENDER LABORER Work Phone: [facility] 11-02-2022 12:25-0400 Systolic blood pressure 126 mm[Hg] Jennalee Chagin [employer] POWER PLANT OPERATOR.BLENDER LABORER Work Phone: [facility] 10-16-2022 12:56-0400 Body weight 84.01 kg Kayy [place] [employer] OPERATOR.BLENDER LABORER Work Phone: [facility] 10-16-2022 12:56-0400 Diastolic blood pressure 82 mm[Hg] Kayy Jet [employer] P[employer] OPERATOR.BLENDER LABORER Work Phone: [facility] 10-16-2022 12:56-0400 Systolic blood pressure 112 mm[Hg] Kayy Jet [employer] P[employer] PLANT OPERATOR.BLENDER LABORER Work Phone: [facility] 08-28-2022 02:35-0400 Diastolic blood pressure 87 mm[Hg] [facility] 08-28-2022 02:35-0400 Heart rate 94 /min [facility] 08-28-2022 02:35-0400 Respiratory rate 17 /min [facility] 06-16-2023 02:35-0400 SaO2% (BldA) [Mass fraction] 100 % [facility] 08-28-2022 02:35-0400 Systolic blood pressure 123 mm[Hg] [facility] 08-27-2022 21:53-0400 Body height 160.02 cm [facility] 08-27-2022 21:53-0400 Body mass index (BMI) [Ratio] 36.4 kg/m2 [facility] 08-27-2022 21:53-0400 Body temperature 98.3 [degF] [facility] 08-27-2022 21:53-0400 Body weight 93.4 kg [facility] 08-11-2022 13:11-0400 Body weight 101.61 kg Ivett Pati TRINH Work Phone: [facility] 05-28-2022 07:57-0400 Body weight 110 kg Cristy Bulow [employer] OPERATOR.BLENDER LABORER Work Phone: [facility] 05-28-2022 07:57-0400 Diastolic blood pressure 74 mm[Hg] Cristy Bulow [employer] P[employer] OPERATOR.BLENDER LABORER Work Phone: [facility] 05-28-2022 07:57-0400 Heart rate 95 /min Cristy Bulow [employer] P[employer] OPERATOR.BLENDER LABORER Work Phone: [facility] 05-28-2022 07:57-0400 Respiratory rate 18 /min Cristy Bulow [employer] POWER PLANT OPERATOR.BLENDER LABORER Work Phone: [facility] 05-28-2022 07:57-0400 Systolic blood pressure 126 mm[Hg] Cristy Bulow [employer] POWER PLANT OPERATOR.BLENDER LABORER Work Phone: [facility] 10-03-2021 09:59-0400 Body height 159.2 cm Cory Yost MD Work Phone: [facility] 10-03-2021 09:59-0400 Body weight 105.78 kg Cory Yost MD Work Phone: [facility] 10-03-2021 09:59-0400 Diastolic blood pressure 82 mm[Hg] Cory Yost MD Work Phone: [facility] 10-03-2021 09:59-0400 Heart rate 85 /min Cory Yost MD Work Phone: [facility] 10-03-2021 09:59-0400 Systolic blood pressure 120 mm[Hg] Cory Yost MD Work Phone: [facility] 08-22-2021 14:51-0400 Body height 161.3 cm Kayy Jet [employer] OPERATOR.BLENDER LABORER Work Phone: [facility] 08-22-2021 14:51-0400 Body weight 101.42 kg Kayy [place] [employer] P[employer] OPERATOR.BLENDER LABORER Work Phone: [facility] 08-22-2021 14:51-0400 Diastolic blood pressure 70 mm[Hg] Kayy Jet [employer] POWER PLANT OPERATOR.BLENDER LABORER Work Phone: [facility] 08-22-2021 14:51-0400 Systolic blood pressure 116 mm[Hg] Kayy Jet [employer] P[employer] PL[employer] OPERATOR.BLENDER LABORER Work Phone: [facility] 07-22-2021 11:04-0400 Body temperature 97.5 [degF] Kimi Jeffrey [employer] OPERATOR.BLENDER LABORER Work Phone: [facility] 07-22-2021 11:04-0400 Body weight 103.42 kg Kimi Jeffrey [employer] OPERATOR.BLENDER LABORER Work Phone: [facility] 07-22-2021 11:04-0400 Diastolic blood pressure 74 mm[Hg] Kimi Jeffrey [employer] OPERATOR.BLENDER LABORER Work Phone: [facility] 07-22-2021 11:04-0400 Heart rate 98 /min Kimi Jeffrey [employer] OPERATOR.BLENDER LABORER Work Phone: [facility] 07-22-2021 11:04-0400 Respiratory rate 16 /min Kimi Jeffrey [employer] OPERATOR.BLENDER LABORER Work Phone: [facility] 07-22-2021 11:04-0400 SaO2% (BldA) [Mass fraction] 99 % Kimi Jeffrey [employer] OPERATOR.BLENDER LABORER Work Phone: [facility] 07-22-2021 11:04-0400 Systolic blood pressure 122 mm[Hg] Kimi Rachele ANDINO Work Phone: [facility] Encounters Encounter Date Encounter Type Care Provider Facility Start: 09-21-2024 End: 09-21-2024 Patient encounter procedure Sandra Edwards MD Work Phone: OB/Gynecology Comment on above: Insulin controlled g estational diabetes mellitus (GDM) in second trimester (HCC) (Primary Dx); 33 weeks gestation of (HCC); Polyhydramnios in third trimester complication, single or unspecified fetus (HCC); Anemia affecting , antepartum (HCC) Start: 09-07-2024 End: 09-07-2024 Patient encounter procedure Whi Tech 1 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[facility] Comment on above: Encounter for ultras ound to check growth (HCC) (Primary Dx); Insulin controlled gestational diabetes mellitus (GDM) in second trimester (HCC); 31 weeks gestation of (HCC) Polyhydramnios in th ird trimester complication, single or unspecified fetus (HCC) (Primary Dx); Insulin controlled gestational diabetes mellitus (GDM) in second trimester (HCC); Anemia affecting , antepartum (HCC); 31 weeks gestation of (HCC) Start: 09-07-2024 End: 09-07-2024 [facility] Facility:[facility] Start: 09-01-2024 End: 09-04-2024 Refill Eddi Sneed MD Work Phone: Endocrinology Comment on above: Refill Request Start: 08-29-2024 End: 08-29-2024 Patient encounter procedure Eddi Sneed MD Work Phone: Endocrinology Comment on above: Insulin controlled g estational diabetes mellitus (GDM) in third trimester (HCC) [O24.414] (Primary Dx) Start: 08-29-2024 End: 08-29-2024 Office outpatient visit 15 minutes Inna Garcia MD Work Phone: OB/Gynecology Comment on above: Polyhydramnios in th ird trimester complication, single or unspecified fetus (HCC) (Primary Dx); Insulin controlled gestational diabetes mellitus (GDM) in second trimester (HCC); Rh negative state in antepartum period (HCC); Supervision of high risk in second trimester (HCC); Anemia, unspecified type; 30 weeks gestation of (HCC) Start: 08-29-2024 End: 08-29-2024 ambulatory INNA GARCIA Facility:[facility] Start: 08-15-2024 End: 08-15-2024 Telephone encounter Nurse 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Joy Zarate Work Phone: Obstetrics/Gynecology Comment on above: PRAF Start: 08-14-2024 End: 08-14-2024 ambulatory JIMMIE WANG Facility:[facility] Start: 08-14-2024 End: 08-14-2024 ambulatory SANDRA EDWARDS Facility:[facility] Start: 08-14-2024 End: 08-14-2024 Patient encounter procedure Sandra Edwards MD Work Phone: OB/Gynecology Comment on above: 28 weeks gestation o f (HCC) (Primary Dx); Supervision of high risk in second trimester (HCC); Insulin controlled gestational diabetes mellitus (GDM) in second trimester (HCC); Rh negative state in antepartum period (HCC); Need for vaccination; Request for sterilization Encounter for ultras ound to check growth (HCC) (Primary Dx); Insulin controlled gestational diabetes mellitus (GDM) in second trimester (HCC); 28 weeks gestation of (HCC) Start: 07-25-2024 End: 07-25-2024 ambulatory EDDI SNEED Facility:[facility] Start: 07-24-2024 End: 07-24-2024 Patient encounter procedure Jimmie Wang MD Work Phone: OB/Gynecology Comment on above: Supervision of high risk in second trimester (HCC) (Primary Dx); Insulin controlled gestational diabetes mellitus (GDM) in second trimester (HCC); Anemia, unspecified type; 25 weeks gestation of (HCC) Start: 07-24-2024 End: 07-24-2024 ambulatory JIMMIE WANG Facility:[facility] Start: 06-28-2024 End: 06-28-2024 ambulatory Treatment Rm 15 [facility] Work Phone: Hematology/Oncology Comment on above: Maternal iron defici ency anemia complicating , second trimester (HCC) (Primary Dx); Impaired intestinal absorption (HCC); History of gastric bypass Start: 2024 End: 06-27-2024 Telephone encounter Nurse 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Joy Zarate Work Phone: Obstetrics/Gynecology Comment on above: PRAF Start: 06-23-2024 End: 06-23-2024 Telephone encounter Eddi Sneed MD Work Phone: Endocrinology & Metabolic [place] Comment on above: Insurance Authorizat ion ((HUMULIN N NPH INSULIN KWIKPEN) 100 unit/mL - Insurance Approval ) Start: 06-23-2024 End: 06-23-2024 Office outpatient visit 15 minutes Inna Garcia MD Work Phone: OB/Gynecology Comment on above: 20 weeks gestation o f (HCC) (Primary Dx); Insulin controlled gestational diabetes mellitus (GDM) in second trimester (HCC); Anemia, unspecified type; Rh negative state in antepartum period (HCC); Encounter for supervision of normal in multigravida ([facility]) Start: 06-23-2024 End: 06-23-2024 ambulatory Treatment 16 [facility] Work Phone: Hematology/Oncology Comment on above: Maternal iron defici ency anemia complicating , second trimester (HCC) (Primary Dx); Impaired intestinal absorption (HCC); History of gastric bypass Start: 06-23-2024 End: 06-23-2024 Patient encounter procedure Whi Tech 1 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[facility] Comment on above: Encounter for anatomic survey (HCC) (Primary Dx); Pre-existing diabetes mellitus in in second trimester (HCC); 20 weeks gestation of (HCC) Start: 06-22-2024 End: 06-22-2024 ambulatory EDDI SNEED Facility:[facility] Start: 06-22-2024 End: 06-22-2024 Patient encounter procedure Eddi Sneed MD Work Phone: Endocrinology Comment on above: Insulin controlled g estational diabetes mellitus (GDM) in second trimester (HCC) (Primary Dx); 20 weeks gestation of (HCC); Diabetes mellitus type 1, controlled, without complications (HCC) Start: 06-22-2024 End: 06-23-2024 Telephone encounter Eddi Sneed MD Work Phone: Endocrinology Comment on above: Spin Instructor - O ther (Prior Auth for HumuLin N kwik Pen 100u/ML) Start: 06-21-2024 End: 06-21-2024 Telephone encounter Ivett Laguerre APRN.CNM Work Phone: OB/Gynecology Start: 06-21-2024 End: 06-21-2024 Nursing evaluation of patient and report Samantha Elias RN Work Phone: Endocrinology Comment on above: Hx of gestational di abetes in prior , currently (HCC) (Primary Dx) Start: 06-21-2024 End: 06-21-2024 ambulatory Treatment Rm 15 [facility] Work Phone: Hematology/Oncology Comment on above: Maternal iron defici ency anemia complicating , second trimester (HCC) (Primary Dx); Impaired intestinal absorption (HCC); History of gastric bypass Start: 06-17-2024 End: 06-17-2024 Orders Only Cristy Swenson DO Work Phone: [place] PROVIDER OB Start: 06-16-2024 End: 06-17-2024 Evaluation and management of inpatient JOCELYNN DOLMEGAN Facility:[facility] Start: 06-15-2024 End: 06-16-2024 ambulatory Angie Mora MD Work Phone: OB/Gynecology Comment on above: Glucose Start: 06-05-2024 End: 06-05-2024 ambulatory Luh Quinn RNsupervisor special effects [facility] in [facility] Comment on above: Blood Management Start: 05-31-2024 End: 05-31-2024 ambulatory ANGIE MORA Facility:[facility] Start: 05-31-2024 End: 05-31-2024 Patient encounter procedure Angie Mora MD Work Phone: OB/Gynecology Comment on above: 17 weeks gestation o f (Primary Dx); Encounter for supervision of normal in multigravida; Anemia affecting , antepartum; Diet controlled gestational diabetes mellitus (GDM) in second trimester; Other iron deficiency anemia; Impaired intestinal absorption Start: 05-31-2024 End: 07-31-2024 Follow-up encounter Ivett Laguerre APRN.CNM Work Phone: OB/Gynecology Start: 05-30-2024 End: 05-30-2024 [facility] Facility:[facility] Start: 04-28-2024 End: 06-28-2024 Follow-up encounter Kayy Longo APRN.CNP Work Phone: OB/Gynecology Start: 04-26-2024 End: 04-26-2024 [facility] Facility:[facility] Start: 04-26-2024 End: 04-26-2024 Patient encounter procedure Ivett Laguerre APRN.CNM Work Phone: OB/Gynecology Comment on above: Encounter for superv ision of normal in multigravida (Primary Dx); Hx of gestational diabetes in prior , currently ; Anemia affecting in second trimester; 12 weeks gestation of ; Rh negative state in antepartum period; History of gastric bypass; History of gestational hypertension; Anemia complicating , second trimester Encounter for patrick fishman screening for malformation using ultrasound (Primary Dx); 12 weeks gestation of Start: 04-18-2024 End: 04-18-2024 Telephone encounter Kayy Longo APRN.CNP Work Phone: OB/Gynecology Comment on above: Orders Start: 04-14-2024 End: 04-14-2024 ambulatory [facility] Facility:[facility] Start: 04-04-2024 End: 04-04-2024 Telephone encounter Inna Carroll RN Obstetrics/Gynecolog y Comment on above: Spin Instructor - O ther (PRAF) Start: 03-31-2024 End: 03-31-2024 [facility] Facility:[facility] Start: 03-31-2024 End: 03-31-2024 Patient encounter procedure Kayy Longo APRN.BLENDER LABORER Work Phone: OB/Gynecology Comment on above: Encounter for superv ision of normal in multigravida (Primary Dx); Screening for cervical cancer; 8 weeks gestation of ; Encounter for anatomic survey; Hx of gestational diabetes in prior , currently Start: 03-16-2024 End: 03-16-2024 [facility] Facility:[facility] Start: 03-16-2024 End: 03-16-2024 Patient encounter procedure 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[facility] Work Phone: OB/Gynecology Comment on above: Missed menses (Prima ry Dx); Date of last menstrual period (LMP) unknown; 6 weeks gestation of ; Paratubal cyst Start: 03-04-2024 End: 03-04-2024 [facility] Facility:[facility] Start: 03-03-2024 End: 03-06-2024 Telephone encounter Inna Garcia MD Work Phone: OB/Gynecology Start: 03-02-2024 End: 03-02-2024 [facility] Facility:[facility] Start: 03-01-2024 End: 03-01-2024 Telephone encounter Inna Garcia MD Work Phone: OB/Gynecology Comment on above: test Start: 02-09-2024 End: 02-11-2024 Telephone encounter Jimmie Wang MD Work Phone: OB/Gynecology Comment on above: Medication Question Start: 02-02-2024 End: 02-02-2024 [facility] Facility:[facility] Start: 02-02-2024 End: 02-02-2024 Patient encounter procedure Jimmie Wang MD Work Phone: OB/Gynecology Comment on above: Complete (P rimary Dx); Ovarian cyst, left; Encounter for initial prescription of vaginal ring hormonal contraceptive Start: 01-31-2024 End: 01-31-2024 Telephone encounter Kayy Longo APRN.BLENDER LABORER Work Phone: OB/Gynecology Comment on above: Results Start: 01-28-2024 End: 01-28-2024 ambulatory SHAKEEL VILLASENOR Facility:[facility] Start: 01-26-2024 End: 01-26-2024 ambulatory KAYY JET Facility:[facility] Start: 01-25-2024 End: 01-25-2024 Telephone encounter Kayy Jet [employer] POWER PLANT OPERATOR.BLENDER LABORER Work Phone: OB/Gynecology Comment on above: Results Start: 01-24-2024 End: 01-24-2024 Telephone encounter Kayy [place] [employer]URE POWER PLANT OPERATOR.BLENDER LABORER Work Phone: OB/Gynecology Comment on above: Missed Menses Start: 01-24-2024 End: 01-24-2024 ambulatory KAYY JET Facility:[facility] Start: 01-03-2024 End: 01-04-2024 E-mail encounter from caregiver Luisana Craft MD Work Phone: Neurology Start: 01-03-2024 End: 01-04-2024 Patient encounter procedure Luisana Craft MD Work Phone: Neurology Comment on above: Appointment Request Start: 12-17-2023 End: 12-28-2023 Telephone encounter Kayy Jet [employer] POWER PLANT OPERATOR.BLENDER LABORER Work Phone: OB/Gynecology Comment on above: Results Start: 12-16-2023 End: 12-16-2023 ambulatory KAYY JET OB/Gynecology Start: 12-16-2023 End: 12-16-2023 Patient encounter procedure Whi Tech 1 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Wstr Mob OB/Gynecology Start: 10-04-2023 Telephone encounter Kayy [facility] [employer] POWER PLANT OPERATOR.BLENDER LABORER Work Phone: OB/Gynecology Comment on above: Results Start: 10-01-2023 End: 10-01-2023 ambulatory KAYY JET OB/Gynecology Start: 10-01-2023 End: 10-01-2023 Patient encounter procedure Whi Tech 1 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Wstr Mob OB/Gynecology Start: 09-13-2023 End: 09-13-2023 ambulatory SHAKEEL VILLASENOR Facility:[facility] Start: 09-13-2023 End: 09-13-2023 Patient encounter procedure Kayy Jet [employer] POWER PLANT OPERATOR.BLENDER LABORER Work Phone: OB/Gynecology Comment on above: Pelvic pain in femal e (Primary Dx) Start: 08-11-2023 End: 08-11-2023 ambulatory Natalie LUCAS Facility:[facility] Start: 07-13-2023 End: 07-13-2023 Patient encounter procedure Angie Mora MD Work Phone: OB/Gynecology Comment on above: Routine f ollow-up (Primary Dx); Impaired glucose tolerance in , delivered Start: 07-05-2023 ambulatory Sandra Herrera Work Phone: OB/Gynecology Comment on above: Ob Delivery Note Start: 07-04-2023 End: 07-06-2023 Evaluation and management of inpatient [facility] Work Phone: Start: 07-02-2023 End: 07-02-2023 ambulatory [facility] Work Phone: Start: 07-02-2023 Telephone encounter Kimi Deirdre elle [employer] CAP[employer] POWER PLANT OPERATOR.CNM Work Phone: OB/Gynecology Comment on above: OB DIEGO, vision change s, RUQ pain Start: 07-02-2023 End: 07-02-2023 Patient encounter procedure [facility] Out[facility] Work Phone: Comment on above: History of gastric b ypass (Primary Dx); Insulin controlled gestational diabetes mellitus (GDM) in third trimester; Polyhydramnios in third trimester complication, single or unspecified fetus; 36 weeks gestation of Start: 06-28-2023 End: 06-28-2023 Patient encounter procedure Angie Mora MD Work Phone: OB/Gynecology Comment on above: Supervision of other high risk pregnancies, third trimester (Primary Dx); Insulin controlled gestational diabetes mellitus (GDM) in third trimester; Polyhydramnios in third trimester complication, single or unspecified fetus; 35 weeks gestation of ; History of gastric bypass Start: 06-25-2023 End: 06-25-2023 Patient encounter procedure Jimmie Neyhart Wang MD Work Phone: OB/Gynecology Comment on above: Insulin controlled g estational diabetes mellitus (GDM) in third trimester (Primary Dx); Polyhydramnios in third trimester complication, single or unspecified fetus; Supervision of other high risk pregnancies, third trimester; 35 weeks gestation of Encounter for ultras ound to check growth (Primary Dx); Insulin controlled gestational diabetes mellitus (GDM) in third trimester; Polyhydramnios in third trimester complication, single or unspecified fetus; 35 weeks gestation of Start: 06-21-2023 End: 06-21-2023 Patient encounter procedure Angie Mora MD Work Phone: OB/Gynecology Comment on above: Supervision of other high risk pregnancies, third trimester (Primary Dx); 34 weeks gestation of ; Polyhydramnios in third trimester complication, single or unspecified fetus; Insulin controlled gestational diabetes mellitus (GDM) in third trimester; History of gastric bypass; Anemia during in third trimester Start: 06-18-2023 End: 06-18-2023 Patient encounter procedure 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[facility] Work Phone: OB/Gynecology Comment on above: Insulin controlled g estational diabetes mellitus (GDM) in third trimester (Primary Dx); Polyhydramnios in third trimester complication, single or unspecified fetus; History of gastric bypass; 34 weeks gestation of Start: 06-14-2023 End: 06-14-2023 Office outpatient visit 15 minutes Inan Garcia MD Work Phone: OB/Gynecology Comment on above: 33 weeks gestation o f (Primary Dx); Insulin controlled gestational diabetes mellitus (GDM) in third trimester; Polyhydramnios in third trimester complication, single or unspecified fetus Start: 06-11-2023 End: 06-12-2023 ambulatory [facility] Work Phone: Start: 06-11-2023 End: 06-12-2023 Patient encounter procedure [facility] Work Phone: Start: 06-09-2023 Telephone encounter Inna alonzo MD Work Phone: OB/Gynecology Comment on above: blood sugars Start: 06-09-2023 End: 06-10-2023 Evaluation and management of inpatient [facility] Work Phone: Start: 06-09-2023 End: 06-10-2023 observation encounter [facility] Work Phone: Start: 06-07-2023 End: 06-07-2023 Office outpatient visit 25 minutes Inna Garcia MD Work Phone: OB/Gynecology Comment on above: Insulin controlled g estational diabetes mellitus (GDM) in third trimester (Primary Dx); 32 weeks gestation of ; Polyhydramnios in third trimester complication, single or unspecified fetus; Anemia during in third trimester Start: 06-03-2023 End: 06-03-2023 ambulatory Treatment [address] [place] Work Phone: Hematology/Oncology Comment on above: Maternal iron defici ency anemia complicating , third trimester (Primary Dx); Impaired intestinal absorption Start: 06-02-2023 End: 06-02-2023 Patient encounter procedure 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[facility] Work Phone: OB/Gynecology Comment on above: Insulin controlled g estational diabetes mellitus (GDM) in third trimester; Polyhydramnios in third trimester complication, single or unspecified fetus Start: 06-01-2023 End: 06-01-2023 ambulatory Treatment [address] [place] Work Phone: Hematology/Oncology Comment on above: Maternal iron defici ency anemia complicating , third trimester (Primary Dx); Impaired intestinal absorption; 32 weeks gestation of ; Supervision of high risk in second trimester; Insulin controlled gestational diabetes mellitus (GDM) in third trimester; History of gastric bypass Start: 06-01-2023 End: 06-01-2023 Patient encounter procedure Inna Garcia MD Work Phone: OB/Gynecology Comment on above: 32 weeks gestation o f (Primary Dx); Supervision of high risk in second trimester; Insulin controlled gestational diabetes mellitus (GDM) in third trimester; History of gastric bypass; History of gestational hypertension Start: 06-01-2023 Telephone encounter Inna alonzo MD Work Phone: OB/Gynecology Comment on above: Appointment Start: 05-31-2023 Telephone encounter Jimmie Wang MD Work Phone: OB/Gynecology Comment on above: Insulin [place] Start: 05-27-2023 Telephone encounter Jimmie Wang MD Work Phone: OB/Gynecology Comment on above: Insurance Authorizat ion Start: 05-26-2023 End: 05-26-2023 ambulatory Treatment Rm 8 [facility] Work Phone: Hematology/Oncology Comment on above: Maternal iron defici ency anemia complicating , third trimester (Primary Dx); Impaired intestinal absorption Start: 05-26-2023 End: 05-26-2023 Patient encounter procedure 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[facility] Work Phone: OB/Gynecology Comment on above: Gestational diabetes mellitus, class A1 (Primary Dx); Supervision of high risk in second trimester; History of gastric bypass; History of gestational hypertension; Polyhydramnios in cash in third trimester Insulin controlled g estational diabetes mellitus (GDM) in third trimester (Primary Dx); Polyhydramnios in third trimester complication, single or unspecified fetus; History of gastric bypass; Anemia during in third trimester; 31 weeks gestation of Insulin controlled g estational diabetes mellitus (GDM) in third trimester (Primary Dx); Polyhydramnios in third trimester complication, single or unspecified fetus Start: 05-25-2023 End: 05-25-[address] OB/Gynecology Comment on above: Assessment; Patient Education Start: 05-24-2023 End: 05-24-2023 ambulatory Treatment Rm 12 [facility] Work Phone: Hematology/Oncology Comment on above: Maternal iron defici ency anemia complicating , third trimester (Primary Dx); Impaired intestinal absorption Start: 05-20-2023 Telephone encounter Spin Instructor RN Obstetrics/Gynecology Comment on above: PRAF Start: 05-19-2023 End: 05-19-2023 Patient encounter procedure Jimmie Wang MD Work Phone: OB/Gynecology Comment on above: Gestational diabetes mellitus, class A1 (Primary Dx); Supervision of high risk in second trimester; Anemia during in second trimester; 30 weeks gestation of Start: 05-17-2023 End: 05-17-2023 ambulatory [facility] Work Phone: Start: 05-17-2023 End: 05-17-2023 Patient encounter procedure [facility] Work Phone: Start: 05-04-2023 ambulatory Luh Quinn RN [facility] Comment on above: Blood Management Maternal iron defici ency anemia complicating , third trimester; Impaired intestinal absorption Start: 04-30-2023 Telephone encounter Jimmie Wang MD Work Phone: OB/Gynecology Comment on above: Blood Management Breast Pump Start: 04-29-2023 Telephone encounter Jimmie Wang MD Work Phone: OB/Gynecology Comment on above: Results Start: 04-28-2023 End: 04-28-2023 Patient encounter procedure Jimmie Wang MD Work Phone: OB/Gynecology Comment on above: Supervision of high risk in second trimester (Primary Dx); History of gastric bypass; Rh negative state in antepartum period; Need for vaccination; 27 weeks gestation of Start: 04-12-2023 End: 04-12-2023 Emergency department patient visit [facility] Work Phone: Start: 02-18-2023 End: 02-19-2023 Emergency department patient visit [facility] Work Phone: Start: 01-29-2023 End: 01-29-2023 Patient encounter procedure Angie Mora MD Work Phone: OB/Gynecology Comment on above: Supervision of high risk in second trimester (Primary Dx); History of gastric bypass; 14 weeks gestation of Start: 01-05-2023 Telephone encounter Raquel Brown RN Obstetrics/Gynecology Start: 01-01-2023 End: 01-01-2023 Patient encounter procedure Kayy Longo RAYMOND.BLENDER LABORER Work Phone: OB/Gynecology Comment on above: 10 weeks gestation o f (Primary Dx); with uncertain dates in first trimester; History of gastric bypass; Hx of gestational diabetes mellitus, not currently Start: 12-19-2022 End: 12-20-2022 Emergency department patient visit [facility] Work Phone: Start: 12-17-2022 End: 12-17-2022 Emergency department patient visit [facility] Work Phone: Start: 12-17-2022 End: 12-17-2022 Patient encounter procedure Steffanie Navarro RAYMOND.BLENDER LABORER Work Phone: [facility] Comment on above: Lower abdominal pain (Primary Dx) Start: 12-03-2022 End: 12-03-2022 Subsequent hospital visit by physician [facility] 1 Work Phone: Radiology Comment on above: , location unknown [O36.80X0] Start: 12-01-2022 ambulatory Angie perkins MD Work Phone: OB/Gynecology Comment on above: , location unknown (Primary Dx) Start: 12-01-2022 Patient encounter procedure Angie Mora MD Work Phone: [facility] Start: 11-19-2022 Telephone encounter Chelsea campo MD Work Phone: OB/Gynecology Comment on above: Patient Update Start: 11-19-2022 End: 11-19-2022 ambulatory [facility] Work Phone: Start: 11-19-2022 End: 11-19-2022 Patient encounter procedure [facility]Labor[facility] Work Phone: Start: 11-17-2022 Telephone encounter Chelsea campo MD Work Phone: OB/Gynecology Comment on above: Left sided pain; Ear ly Start: 11-17-2022 End: 11-17-2022 Emergency department patient visit [facility] Work Phone: Start: 11-05-2022 Telephone encounter Kayy correia [employer]BON CAPTURE POWER PLANT OPERATOR.BLENDER LABORER Work Phone: OB/Gynecology Comment on above: Results Start: 11-04-2022 End: 11-04-2022 Subsequent hospital visit by physician [facility] 2 Work Phone: Radiology Comment on above: Breast cyst, left [N 60.02] Start: 11-02-2022 End: 11-02-2022 Subsequent hospital visit by physician [facility] Comment on above: Sinobronchitis [J32. 9, J40] Start: 11-02-2022 End: 11-02-2022 Patient encounter procedure Keith Arriaga [employer]BON CAPTURE POWER PLANT OPERATOR.BLENDER LABORER Work Phone: [facility] Comment on above: Sinobronchitis (Prim janelle Dx); Strep pharyngitis Start: 10-16-2022 End: 10-16-2022 Patient encounter procedure Kayy Longo [employer] CAPTURE POWER PLANT OPERATOR.BLENDER LABORER Work Phone: OB/Gynecology Comment on above: Encounter for gyneco logical examination without abnormal finding (Primary Dx); Pelvic pain in female; Breast cyst, left Start: 10-16-2022 End: 10-16-2022 Patient encounter status Kayy Longo [employer] CAPTURE POWER PLANT OPERATOR.BLENDER LABORER Work Phone: [facility] Start: 09-29-2022 End: 09-30-2022 ambulatory CORY YOST Facility:[facility] Start: 09-28-2022 Chart abstracting Jeffery funez RD Work Phone: General Surgery Start: 09-18-2022 End: 09-18-2022 Admission to same day surgery center Cory Yost MD Work Phone: General Surgery Comment on above: Food intolerance (Pr imary Dx); Bariatric surgery status Start: 09-18-2022 End: 09-18-2022 Telemedicine consultation with patient Cory Yost MD Work Phone: [facility] Start: 09-04-2022 End: 09-04-2022 Admission to same day surgery center Cory Yost MD Work Phone: General Surgery Comment on above: Bariatric surgery [facility] (Primary Dx) Start: 09-04-2022 End: 09-04-2022 Telemedicine consultation with patient Cory Yost MD Work Phone: [facility] Start: 08-31-2022 Telephone encounter Sakshi Michaels General Surgery Comment on above: Post Op Call Start: 08-28-2022 Orders Only Cory Yost MD Work Phone: General Surgery Comment on above: Transaminitis (Prima ry Dx) Patient Update Start: 08-27-2022 End: 08-28-2022 Emergency department patient visit [facility] Start: 08-26-2022 Telephone encounter Sakshi Michaels General Surgery Comment on above: phone encounter Left upper quadrant abdominal pain (Primary Dx); Leg cramping Start: 08-11-2022 Telephone encounter Sakshi Michaels General Surgery Comment on above: phone encounter Patient Update Vomiting Start: 08-11-2022 End: 08-11-2022 ambulatory Ivett Pulidojoyce TRINH Work Phone: General Surgery Comment on above: BMI 40.0-44.9, adult (HCC) (Primary Dx); Dietary counseling Start: 08-11-2022 End: 08-11-2022 Telemedicine consultation with patient Ivett Krueger RD Work Phone: [facility] Start: 07-02-2022 ambulatory Sakshi Porter RN [facility] Comment on above: 08/16/2022 (pseudo) Start: 07-02-2022 Preprocedural examination done Sakshi Porter RN General Surgery Start: 06-02-2022 End: 06-02-2022 Nursing evaluation of patient and report Hi Nurse Work Phone: [facility] Comment on above: Body mass index 40.0 -44.9, adult (HCC) Start: 06-02-2022 End: 06-02-2022 Subsequent hospital visit by physician [facility] Work Phone: Radiology Comment on above: Body mass index 40.0 -44.9, adult (HCC) [Z68.41] Start: 05-28-2022 End: 05-28-2022 Patient encounter procedure Cristy Giulia [employer] CAPTURE POWER PLANT OPERATOR.BLENDER LABORER Work Phone: Endocrinology BMI Comment on above: Body mass index 40.0 -44.9, adult (HCC) (Primary Dx) Start: 10-03-2021 End: 10-03-2021 Patient encounter procedure Cory Yost MD Work Phone: General Surgery Comment on above: Body mass index 40.0 -44.9, adult (HCC) (Primary Dx) Start: 08-22-2021 End: 08-22-2021 Patient encounter procedure Kayy Longo CARBON CAPTURE POWER PLANT OPERATOR.BLENDER LABORER Work Phone: OB/Gynecology Comment on above: Encounter for gyneco logical examination (general) (routine) without abnormal findings (Primary Dx); Screening for cervical cancer; Encounter for screening for human papillomavirus (HPV); Encounter for surveillance of vaginal ring hormonal contraceptive device Start: 08-22-2021 End: 08-22-2021 Patient encounter status Kayy Longo CARBON CAPTURE POWER PLANT OPERATOR.BLENDER LABORER Work Phone: OB/Gynecology Start: 08-18-2021 Refill Kelly Can APRN.BLENDER LABORER Work Phone: [facility] Comment on above: Refill Request Start: 08-18-2021 Telephone encounter Kelly carpenter [employer] CAPTURE POWER PLANT OPERATOR.BLENDER LABORER Work Phone: Family [facility] Comment on above: Orders (Medication/l abs ) Start: 07-22-2021 End: 07-22-2021 Patient encounter procedure Kimi Jeffrey CARBON CAPTURE POWER PLANT OPERATOR.BLENDER LABORER Work Phone: [facility] Comment on above: Viral illness (Prima ry Dx); Nausea and vomiting, unspecified vomiting type Start: 05-16-2020 End: 10-16-2022 Patient encounter status Kimi Jeffrey APRN.BLENDER LABORER Work Phone: [facility] Work Phone: Start: 01-12-2020 End: 01-12-2020 Subsequent hospital visit by physician [facility] Work Phone: Radiology Comment on above: Acute pain of left w rist [M25.532] Start: 12-30-2017 End: 08-15-2019 Patient requested procedure Sandra Edwards MD Work Phone: [facility] Procedures Date Procedure Procedure Detail Performing Clinician Start: 09-21-2024 Urnls dip stick/tabl et rgnt non-auto w/o micrscp Sandra Edwards MD Work Phone: Start: 09-07-2024 Urnls dip stick/tabl et rgnt non-auto w/o micrscp Chelsea Navarro MD Work Phone: Start: 09-07-2024 Us preg uterus after 1st trimest / gestation Jimmie Wang MD Work Phone: Start: 08-29-2024 Urnls dip stick/tabl et rgnt non-auto w/o micrscp Inna Garcia MD Work Phone: Start: 08-14-2024 Antibody screen JIMMIE WANG Comment on above: Order Comment: Speci men Type: BLOOD SPECIMENOrdering Facility: [facility] Address: [address] [place] [address] Result Comment: Narda ent has a previous clinically significant antibody Performed By: #### T SPN ####[facility] BLOOD BANKCLIA [id number] [place] [address] [place] Start: 08-14-2024 Urnls dip stick/tabl et rgnt non-auto w/o micrscp Sandra Edwards MD Work Phone: Start: 08-14-2024 Us preg uterus after 1st trimest 03/15 gestation Jimmie Wang MD Work Phone: Start: 07-24-2024 Urnls dip stick/tabl et rgnt non-auto w/o micrscp Jimmie Wang MD Work Phone: Start: 06-23-2024 Us preg uterus after 1st trimest / gestation Kayy Jet [employer]BON CAPTURE POWER PLANT OPERATOR.BLENDER LABORER Work Phone: Start: 06-16-2024 Antibody screen JOCELYNN SMITH Comment on above: Order Comment: Speci men Type: BLOOD SPECIMEN Ordering Facility: [facility] Address: [address] [place] [address] Result Comment: Narda ent has a previous clinically significant antibody Performed By: #### T SPN #### [facility] BLOOD BANK CLIA [id number] [place] Start: 04-26-2024 Us preg uterus after 1st trimest / gestation Kayy Plainfield CARBON CAPTURE POWER PLANT OPERATOR.BLENDER LABORER Work Phone: Start: 04-14-2024 Antibody screen JIMMIE WANG Comment on above: Order Comment: Speci men Type: BLOOD SPECIMENOrdering Facility: [facility] Address: [address] [place] [address] Result Comment: Narda ent has a previous clinically significant antibody Performed By: #### T SPN ####CC [facility] BLOOD BANKCLIA [id number] [address] [place] Start: 03-31-2024 Us uterus l imited 1/> fetuses Kayy Plainfield CARBON CAPTURE POWER PLANT OPERATOR.BLENDER LABORER Work Phone: Start: 03-31-2024 Adult depression scr eening assessment Kayy Jet [employer]BON CAPTURE POWER PLANT OPERATOR.BLENDER LABORER Work Phone: Start: 03-16-2024 Us preg uterus after 1st trimest 03/15 gestation Inna Garcia MD Work Phone: Start: 12-16-2023 Us pelvic nonobstetr ic real-time image complete Kayy Plainfield CARBON CAPTURE POWER PLANT OPERATOR.BLENDER LABORER Work Phone: Start: 10-01-2023 Us pelvic nonobstetr ic real-time image complete Kayy Plainfield CARBON CAPTURE POWER PLANT OPERATOR.BLENDER LABORER Work Phone: Start: 07-02-2023 biophysical pr ofile non-stress testing Jimmie Wang MD Work Phone: Start: 06-28-2023 URINE OB DIP B/O Kaitlin Mora MD Work Phone: Start: 06-25-2023 Us preg uterus after 1st trimest 03/15 gestation Jimmie Wang MD Work Phone: Start: 06-21-2023 URINE OB DIP B/O Kaitlin Mora MD Work Phone: Start: 06-18-2023 biophysical pr ofile non-stress testing Jimmie Wang MD Work Phone: Start: 06-14-2023 URINE OB DIP B/O Virgil Garcia MD Work Phone: Start: 06-07-2023 URINE OB DIP B/O Virgil Garcia MD Work Phone: Start: 06-02-2023 Us preg uterus after 1st trimest 03/15 gestation Jimmie Wang MD Work Phone: Start: 06-01-2023 URINE OB DIP B/O Virgil Garcia MD Work Phone: Start: 05-26-2023 URINE OB DIP B/O Jimmie Wang MD Work Phone: Start: 05-26-2023 Us preg uterus after 1st trimest 03/15 gestation Jimmie Wang MD Work Phone: Start: 05-19-2023 URINE OB DIP B/O Jimmie Wang MD Work Phone: Start: 04-28-2023 URINE OB DIP B/O Jimmie Wang MD Work Phone: Start: 12-19-2022 Transvaginal obstetr ic ultrasonography Start: 12-03-2022 Us preg uterus real time w/image dcmtn transvag Angie Mora MD Work Phone: Start: 11-17-2022 Transvaginal obstetr ic ultrasonography Start: 11-04-2022 Us breast uni real t hans with image limited Kayy Longo [employer]BON CAPTURE POWER PLANT OPERATOR.BLENDER LABORER Work Phone: Start: 11-02-2022 Radiologic exam ches t 2 views Keith Arriaga CARBON CAPTURE POWER PLANT OPERATOR.BLENDER LABORER Work Phone: Start: 11-02-2022 STREP A MOLECULAR (POC) [facility] Provider Start: 08-28-2022 CT of abdomen and pe lvis with oral contrast Start: 06-02-2022 Radiologic exam ches t 2 views Cristy Platt [employer]BON CAPTURE POWER PLANT OPERATOR.BLENDER LABORER Work Phone: Start: 01-12-2020 Radex wrist complete minimum 3 views Marcelle Talavera CARBON CAPTURE POWER PLANT OPERATOR.BLENDER LABORER Work Phone: Start: 06-22-2018 Adult depression scr eening assessment Kimi Jeffrey CARBON CAPTURE POWER PLANT OPERATOR.BLENDER LABORER Work Phone: Plan of Treatment Date Care Activity Detail Author Start: 08-14-2034 Urine microalbumin profile DTaP,Tdap,Td Vaccine (12 - Td or Tdap) [facility] Start: 04-28-2033 Urine microalbumin profile DTaP,Tdap,Td Vaccine (11 - Td or Tdap) [facility] Start: 08-14-2029 Urine microalbumin profile [facility] Start: 03-31-2027 Screening for malignant neoplasm of cervix Cervical Cancer Screening [facility] Start: 03-31-2025 Anxiety Screening Anxiety Screening [facility] Start: 03-31-2025 Depression Screening Depression Screening [facility] Start: 11-13-2024 Influenza vaccination [facility] Start: 10-17-2024 End: 10-17-2024 Patient encounter procedure 10/17/2024 8:10 AM EDT Routine Office Visit OB/Gynecology [address] [place] [address] Jimmie Jules MD [address] [place] [id number] ob routine OB/Gynecology Comment on above: ob routine Start: 10-12-2024 End: 10-12-2024 Patient encounter procedure OB/Gynecology Comment on above: nst/ob OB Start: 10-05-2024 End: 10-05-2024 Patient encounter procedure Maternal Medicine Comment on above: Growth OB Start: 09-28-2024 End: 09-28-2024 Patient encounter procedure OB/Gynecology Comment on above: nst/ob OB 4 wk f/u GESTATIONAL DIABETES Start: 09-21-2024 End: 09-21-2024 Patient encounter procedure OB/Gynecology Comment on above: nst/ob NST / OB Start: 09-07-2024 End: 09-07-2024 Patient encounter procedure Maternal Medicine Comment on above: Growth OB Start: 08-29-2024 End: 08-29-2024 Patient encounter procedure OB/Gynecology Comment on above: OB Return in about 4 we eks Start: 08-22-2024 PAP TESTING PAP TESTING [facility] Start: 08-22-2024 Screening for malignant neoplasm of cervix [facility] Start: 08-14-2024 End: 11-13-2024 ANEMIA REFLEX PANEL ANEMIA REFLEX PANEL Lab Routine Supervision of high risk in second trimester (HCC) 25 weeks gestation of (HCC) Expected: 08/14/2024, Expires: 11/13/[address] [facility] Comment on above: Expected: 08/14/2024, Expires: 5 Start: 08-14-2024 End: 07-24-2025 SYPHILIS TREPONEMAL W/REFLEX SYPHILIS TREPONEMAL W/REFLEX Lab Routine Supervision of high risk in second trimester (HCC) 25 weeks gestation of (HCC) Expected: 08/14/2024, Expires: 07/24/2025 [facility] Work Phone: Comment on above: Expected: 08/14/2024, Expires: 6 Start: 08-14-2024 End: 11-13-2024 TYPE + SCREEN TYPE + SCREEN Blood Bank Routine Supervision of high risk in second trimester (HCC) 25 weeks gestation of (HCC) Expected: 08/14/2024, Expires: 11/13/[address] [facility] Comment on above: Expected: 08/14/2024, Expires: 5 Start: 08-14-2024 End: 08-14-2024 Patient encounter procedure Maternal Medicine Comment on above: US AND PRASAD Start: 07-25-2024 End: 07-25-2024 Patient encounter procedure 07/25/2024 2:00 PM EDT Office Visit Endocrinology [address] [place] [address] Eddi Sneed MD [address] [place] [address] Gest diabetes Endocrinology Comment on above: Gest diabetes Start: 07-21-2024 End: 07-21-2024 Patient encounter procedure OB/Gynecology Comment on above: OB Gest diabetes Start: 06-28-2024 End: 06-28-2024 ambulatory 06/28/2024 8:30 AM EDT Infusion Center Hematology/Oncology [address] [place] [address] 2ND Hematology/Oncology Comment on above: 2ND Start: 06-23-2024 End: 06-23-2024 [facility] Start: 06-23-2024 Nonstress test [facility] Start: 06-23-2024 Obstetric monitoring [facility] Start: 06-23-2024 Vital signs measurements [facility] Start: 06-23-2024 Bacteria identified in Urine by Culture Urine Culture [facility] Start: 06-23-2024 End: 06-23-2024 ambulatory 06/23/2024 11:00 AM EDT Infusion Center Hematology/Oncology [address] [place] [address] 2ND Hematology/Oncology Comment on above: 2ND Start: 06-23-2024 End: 06-23-2024 Patient encounter procedure Maternal Medicine Comment on above: Anatomy Anatomy/OB Start: 06-22-2024 End: 06-22-2024 Patient encounter procedure 06/22/2024 3:00 PM EDT Office Visit Endocrinology [address] [place] [address] Eddi Sneed MD [address] [place] [address] Gestational DM-ok per KEYONNA Tejedamedical care administrator Comment on above: Gestational DM-ok per KEYONNA Tejeda Start: 06-21-2024 End: 06-21-2024 ambulatory 06/21/2024 9:30 AM EDT [facility] Hematology/Oncology [address] [place] [address] 2ND Hematology/Oncology Comment on above: 2ND Start: 05-31-2024 End: 05-31-2024 Patient encounter procedure 05/31/2024 3:50 PM EDT Routine Office Visit OB/Gynecology [address] [place] [address] Angie Mora MD [address] [place] [address] OB-Review blood sugars OB/Gynecology Comment on above: OB-Review blood sugars Start: 05-26-2024 End: 05-26-2024 Patient encounter procedure 05/26/2024 8:10 AM EDT Routine Office Visit OB/Gynecology [address] [place], [place] [id number] Jimmie Jules MD [address] [place] [address] OB OB/Gynecology Comment on above: OB Start: 04-26-2024 End: 07-26-2024 CBC panel - Blood by Automated count COMPLETE BLOOD COUNT Lab Routine Anemia complicating , second trimester Expected: 04/26/2024, Expires: 07/26/2024 [facility] Work Phone: Comment on above: Expected: 04/26/2024, Expires: Start: 04-26-2024 End: 04-26-2024 Patient encounter procedure Maternal Medicine Comment on above: Nuchal OB Start: 04-18-2024 End: 07-18-2024 Ferritin [Mass/volume] in Serum or Plasma FERRITIN Lab Routine Anemia affecting in first trimester Expected: 04/18/2024, Expires: 07/18/[address] [facility] Comment on above: Expected: 04/18/2024, Expires: Start: 04-18-2024 End: 07-18-2024 Iron and Iron binding capacity panel - Serum or Plasma IRON AND TIBC Lab Routine Anemia affecting in first trimester Expected: 04/18/2024, Expires: 07/18/2024 [facility] Work Phone: Comment on above: Expected: 04/18/2024, Expires: Start: 03-31-2024 End: 06-30-2024 ANEMIA REFLEX PANEL ANEMIA REFLEX PANEL Lab Routine Encounter for supervision of normal in multigravida Expected: 03/31/2024, Expires: 06/30/2024 [facility] Work Phone: Comment on above: Expected: 03/31/2024, Expires: Start: 03-31-2024 End: 06-30-2024 Chromosome 21 trisomy [Presence] in Blood or Tissue by Cytogenetics [id number] PLUS Lab Routine 8 weeks gestation of Expected: 03/31/2024, Expires: 06/30/[address] [facility] Comment on above: Expected: 03/31/2024, Expires: Start: 03-31-2024 End: 06-30-2024 Hemoglobin A1c in Blood HEMOGLOBIN A1C Lab Routine Encounter for supervision of normal in multigravida Expected: 03/31/2024, Expires: 06/30/[address] [facility] Comment on above: Expected: 03/31/2024, Expires: Start: 03-31-2024 End: 06-30-2024 Hepatitis B virus surface Ag [Presence] in Serum HEPATITIS B SURFACE ANTIGEN Lab Routine Encounter for supervision of normal in multigravida Expected: 03/31/2024, Expires: 06/30/[address] [facility] Comment on above: Expected: 03/31/2024, Expires: Start: 03-31-2024 End: 06-30-2024 Hepatitis C virus Ab [Presence] in Serum HEPATITIS C ANTIBODY IA WITH CONFIRMATION Lab Routine Encounter for supervision of normal in multigravida Expected: 03/31/2024, Expires: 06/30/[address] [facility] Comment on above: Expected: 03/31/2024, Expires: Start: 03-31-2024 End: 06-30-2024 HIV 1+2 Ab [Presence] in Serum or Plasma by Immunoassay HIV 1/2 COMBO WITH REFLEX TO DIFFERENTIATION Lab Routine Encounter for supervision of normal in multigravida Expected: 03/31/2024, Expires: 06/30/[address] [facility] Comment on above: Expected: 03/31/2024, Expires: Start: 03-31-2024 End: 03-31-2025 OBSTETRIC ULTRASOUND [facility] Comment on above: Expected: 03/31/2024, Expires: Start: 03-31-2024 End: 06-30-2024 RUBELLA IGG ANTIBODY RUBELLA IGG ANTIBODY Lab Routine Encounter for supervision of normal in multigravida Expected: 03/31/2024, Expires: 06/30/[address] [facility] Comment on above: Expected: 03/31/2024, Expires: Start: 03-31-2024 End: 06-30-2024 SYPHILIS TREPONEMAL W/REFLEX SYPHILIS TREPONEMAL W/REFLEX Lab Routine Encounter for supervision of normal in multigravida Expected: 03/31/2024, Expires: 06/30/[address] [facility] Comment on above: Expected: 03/31/2024, Expires: Start: 03-31-2024 End: 06-30-2024 TYPE + SCREEN TYPE + SCREEN Blood Bank Routine Encounter for supervision of normal in multigravida Expected: 03/31/2024, Expires: 06/30/[address] 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[employer] [address] [place] [address] Ovarian cyst, left [N83.202] OB/Gynecology Comment on above: Ovarian cyst, left [N83.202] Start: 03-16-2024 End: 03-16-2024 Patient encounter procedure 03/16/2024 8:00 AM EST Routine Office Visit OB/Gynecology [address] [place] [address] 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, 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[employer] [address] [place] [address] dating/viability OB/Gynecology Comment on above: dating/viability Start: 03-09-2024 End: 03-09-2024 ambulatory 03/09/2024 8:00 AM EST Procedure OB/Gynecology [address] [place] [address] 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, 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[employer] [address] [place] [address] Ovarian cyst, left [N83.202 OB/Gynecology Comment on above: Ovarian cyst, left [N83.202 Start: 02-24-2024 End: 02-24-2024 Patient encounter procedure 02/24/2024 8:15 AM EST Initial Office Visit OB/Gynecology [address] [place] [address] Kayy Longo, RAYMOND.BLENDER LABORER [address] [place] [address] New OB OB/Gynecology Comment on above: New OB Start: 02-02-2024 End: 02-02-2024 Patient encounter procedure 02/02/2024 10:20 AM EST Office Visit OB/Gynecology [address] [place] [id number] Jimmie Jules MD [address] [place] [address] Miscarriage F/U OB/Gynecology Comment on above: Miscarriage F/U Start: 01-24-2024 End: 04-24-2024 Choriogonadotropin.beta subunit [Units/volume] in Serum or Plasma [facility] Work Phone: Comment on above: Expected: 01/24/2024, Expires: Start: 01-19-2024 End: 01-19-2024 Patient encounter procedure 01/19/2024 12:30 PM EST Office Visit Neurology [address] [id number] Luisana Craft MD [address], [place] [id number] recurring migraines (last OV 02/14/2021) Neurology Comment on above: recurring migraines (last OV 02/14/2021) Start: 12-17-2023 End: 12-16-2024 US Pelvis PELVIC US [facility] Anc Imaging Routine Ovarian cyst, left Expected: 12/17/2023, Expires: 12/16/2024 [facility] Work Phone: Comment on above: Expected: 12/17/2023, Expires: Start: 12-16-2023 End: 12-16-2023 Manual pelvic examination 12/16/2023 9:00 AM EDT Procedure OB/Gynecology [address] [place] [id number] Pelvic u/s OB/Gynecology Comment on above: Pelvic u/s Start: 11-14-2023 Covid-19 Vaccine () Covid-19 Vaccine () [facility] Start: 11-14-2023 Influenza vaccination [facility] Start: 10-04-2023 End: 10-03-2024 US Pelvis PELVIC US [facility] Anc Imaging Routine Ovarian cyst, left Expected: 10/04/2023, Expires: 10/03/2024 [facility] Work Phone: Comment on above: Expected: 10/04/2023, Expires: Start: 09-14-2023 End: 09-14-2023 Manual pelvic examination 09/14/2023 10:30 AM EDT Procedure OB/Gynecology [address] [place] [address] Pelvic pain in female [R10.2] OB/Gynecology Comment on above: Pelvic pain in female [R10.2] Start: 09-13-2023 End: 09-12-2024 US Pelvis PELVIC US [facility] Anc Imaging Routine Pelvic pain in female Expected: 09/13/2023, Expires: 09/12/2024 [facility] Work Phone: Comment on above: Expected: 09/13/2023, Expires: Start: 08-17-2023 End: 08-17-2023 Patient encounter procedure 08/17/2023 10:20 AM EDT Office Visit OB/Gynecology [address] [place] [address] Chelsea Navarro MD [address] [place] [address] PP OB/Gynecology Comment on above: PP Start: 07-13-2023 End: 10-12-2023 GLUC RYAN, 2-HR NON-GEST, 75 GM, FASTING GLUC RYAN, 2-HR NON-GEST, 75 GM, FASTING Lab Routine Impaired glucose tolerance in , delivered Expected: 07/13/2023, Expires: 10/12/2023 [facility] Work Phone: Comment on above: Expected: 07/13/2023, Expires: Start: 07-06-2023 Patient discharge [facility] Start: 07-04-2023 Administration of blood product [facility] Start: 07-04-2023 Administration of medication [facility] Start: 07-04-2023 Application of ice collar, cap or bag [facility] Start: 07-04-2023 Catheterization of vein [facility] Start: 07-04-2023 Introduction of urinary catheter [facility] Start: 07-04-2023 Measuring intake and output [facility] Start: 07-04-2023 Notification of physician [facility] Start: 07-04-2023 Procedure discontinued [facility] Start: 07-04-2023 Provision of activity privileges [facility] Start: 07-04-2023 Vital signs measurements [facility] Start: 07-04-2023 Documentation procedure [facility] Start: 07-04-2023 End: 07-04-2023 [facility] Start: 07-04-2023 Admission procedure [facility] Start: 06-21-2023 End: 09-20-2023 Protein/Creatinine [Mass Ratio] in Urine PROTEIN CREATININE RATIO Lab Routine 34 weeks gestation of Polyhydramnios in third trimester complication, single or unspecified fetus Insulin controlled gestational diabetes mellitus (GDM) in third trimester History of gastric bypass Supervision of other high risk pregnancies, third trimester Anemia during in third trimester Expected: 06/21/2023, Expires: 09/20/2023 [facility] Work Phone: Comment on above: Expected: 06/21/2023, Expires: Start: 06-12-2023 Patient discharge [facility] Start: 06-11-2023 End: 06-11-2023 [facility] Start: 06-11-2023 Nonstress test [facility] Start: 06-11-2023 Obstetric monitoring [facility] Start: 06-11-2023 Vital signs measurements [facility] Start: 06-10-2023 Patient discharge [facility] Start: 06-09-2023 Notification of physician [facility] Start: 06-09-2023 [facility] Start: 06-09-2023 [facility] Start: 06-09-2023 Admission procedure [facility] Start: 06-09-2023 Nonstress test [facility] Start: 06-09-2023 Vital signs measurements [facility] Start: 06-09-2023 End: 06-09-2023 Notification of physician [facility] Start: 06-09-2023 End: 06-09-2023 Catheterization of vein [facility] Start: 06-09-2023 End: 06-09-2023 [facility] Start: 06-09-2023 Patient referral to dietitian [facility] Start: 06-07-2023 End: 09-06-2023 CBC panel - Blood by Automated count CBC Lab Routine Anemia during in third trimester Expected: 06/07/2023, Expires: 09/06/2023 [facility] Work Phone: Comment on above: Expected: 06/07/2023, Expires: Start: 06-01-2023 End: 08-31-2023 TYPE + SCREEN [facility] Work Phone: Comment on above: Expected: 06/01/2023, Expires: Start: 05-17-2023 End: 05-17-2023 Nonstress test [facility] Start: 05-17-2023 End: 05-17-2023 Obstetric monitoring [facility] Start: 05-17-2023 Vital signs measurements [facility] Start: 05-17-2023 End: 05-17-2023 [facility] Start: 05-17-2023 Patient discharge [facility] Start: 04-12-2023 [facility] Start: 03-15-2023 Behavioral Health Screening Behavioral Health Screening [facility] Start: 03-15-2023 Depression Assessment Depression Assessment [facility] Start: 02-19-2023 [facility] Start: 02-18-2023 Administration of blood product [facility] Start: 02-18-2023 [facility] Start: 02-18-2023 [facility] Start: 01-29-2023 End: 01-30-2024 OBSTETRIC ULTRASOUND [facility] OBSTETRIC ULTRASOUND [facility] Anc Imaging Routine History of gastric bypass 14 weeks gestation of Supervision of high risk in second trimester Expected: 01/29/2023, Expires: 01/30/2024 [facility] Work Phone: Comment on above: Expected: 01/29/2023, Expires: 4 Start: 01-01-2023 End: 04-02-2023 CBC panel - Blood by Automated count CBC Lab Routine 10 weeks gestation of Expected: 01/01/2023, Expires: 04/02/2023 [facility] Work Phone: Comment on above: Expected: 01/01/2023, Expires: 4 Start: 01-01-2023 End: 04-02-2023 Hemoglobin A1c in Blood HGB A1C Lab Routine 10 weeks gestation of Expected: 01/01/2023, Expires: 04/02/2023 [facility] Work Phone: Comment on above: Expected: 01/01/2023, Expires: 4 Start: 01-01-2023 End: 04-02-2023 Hepatitis B virus surface Ag [Presence] in Serum HEP B SURF AG SCRN Lab Routine 10 weeks gestation of Expected: 01/01/2023, Expires: 04/02/2023 [facility] Work Phone: Comment on above: Expected: 01/01/2023, Expires: 4 Start: 01-01-2023 End: 04-02-2023 Hepatitis C virus Ab [Presence] in Serum HEPATITIS C ANTIBODY IA WITH CONFIRMATION Lab Routine 10 weeks gestation of Expected: 01/01/2023, Expires: 04/02/2023 [facility] Work Phone: Comment on above: Expected: 01/01/2023, Expires: 4 Start: 01-01-2023 End: 04-02-2023 HIV 1+2 Ab [Presence] in Serum or Plasma by Immunoassay HIV 1 2 COMBO(AG/AB),WITH REFLEX TO DIFFERENTIATION Lab Routine 10 weeks gestation of Expected: 01/01/2023, Expires: 04/02/2023 [facility] Work Phone: Comment on above: Expected: 01/01/2023, Expires: 4 Start: 01-01-2023 End: 04-02-2023 RUBELLA IGG AB RUBELLA IGG AB Lab Routine 10 weeks gestation of Expected: 01/01/2023, Expires: 04/02/2023 [facility] Work Phone: Comment on above: Expected: 01/01/2023, Expires: 4 Start: 01-01-2023 End: 04-02-2023 SYPHILIS TOTAL W/REFLEX SYPHILIS TOTAL W/REFLEX Lab Routine 10 weeks gestation of Expected: 01/01/2023, Expires: 04/02/2023 [facility] Work Phone: Comment on above: Expected: 01/01/2023, Expires: 4 Start: 01-01-2023 End: 04-02-2023 TYPE + SCREEN TYPE + SCREEN Blood Bank Routine 10 weeks gestation of Expected: 01/01/2023, Expires: 04/02/2023 [facility] Work Phone: Comment on above: Expected: 01/01/2023, Expires: 4 Start: 12-20-2022 [facility] Start: 12-17-2022 [facility] Start: 11-13-2022 Covid-19 Vaccine () Covid-19 Vaccine () [facility] Start: 11-13-2022 Influenza vaccination [facility] Start: 10-16-2022 End: 10-17-2023 PELVIC US [facility] PELVIC US [facility] Anc Imaging Routine Pelvic pain in female Expected: 10/16/2022, Expires: 10/17/2023 [facility] Work Phone: Comment on above: Expected: 10/16/2022, Expires: 4 Start: 09-18-2022 End: 11-18-2022 CBC panel - Blood by Automated count CBC Lab Routine Food intolerance Expected: 09/18/2022, Expires: 11/18/2022 [facility] Work Phone: Comment on above: Expected: 09/18/2022, Expires: 3 Start: 09-18-2022 End: 11-18-2022 Comprehensive metabolic 2000 panel - Serum or Plasma COMP METABOLIC PANEL Lab Routine Food intolerance Expected: 09/18/2022, Expires: 11/18/2022 [facility] Work Phone: Comment on above: Expected: 09/18/2022, Expires: Start: 08-28-2022 End: 10-28-2022 CBC W Auto Differential panel - Blood CBC + DIFF Lab Routine Transaminitis Expected: 08/28/2022, Expires: 10/28/2022 [facility] Work Phone: Comment on above: Expected: 08/28/2022, Expires: Start: 08-28-2022 End: 10-28-2022 Comprehensive metabolic 2000 panel - Serum or Plasma COMP METABOLIC PANEL Lab Routine Transaminitis Expected: 08/28/2022, Expires: 10/28/2022 [facility] Work Phone: Comment on above: Expected: 08/28/2022, Expires: Start: 08-26-2022 End: 10-26-2022 Comprehensive metabolic 2000 panel - Serum or Plasma [facility] Work Phone: Comment on above: Expected: 08/26/2022, Expires: 3 Start: 08-26-2022 End: 10-26-2022 Magnesium [Mass/volume] in Serum or Plasma [facility] Work Phone: Comment on above: Expected: 08/26/2022, Expires: Start: 05-28-2022 End: 07-28-2022 25-hydroxyvitamin D3 [Mass/volume] in Serum or Plasma VITAMIN D 25 HYDROXY Lab Routine Body mass index 40.0-44.9, adult (HCC) Expected: 05/28/2022, Expires: 07/28/2022 [facility] Work Phone: Comment on above: Expected: 05/28/2022, Expires: Start: 05-28-2022 End: 07-28-2022 CBC W Auto Differential panel - Blood CBC + DIFF Lab Routine Body mass index 40.0-44.9, adult (HCC) Expected: 05/28/2022, Expires: 07/28/2022 [facility] Work Phone: Comment on above: Expected: 05/28/2022, Expires: Start: 05-28-2022 End: 07-28-2022 Cobalamin (Vitamin B12) [Mass/volume] in Serum or Plasma VITAMIN B12 BLOOD Lab Routine Body mass index 40.0-44.9, adult (HCC) Expected: 05/28/2022, Expires: 07/28/2022 [facility] Work Phone: Comment on above: Expected: 05/28/2022, Expires: Start: 05-28-2022 End: 07-28-2022 Comprehensive metabolic 2000 panel - Serum or Plasma COMP METABOLIC PANEL Lab Routine Body mass index 40.0-44.9, adult (HCC) Expected: 05/28/2022, Expires: 07/28/2022 [facility] Work Phone: Comment on above: Expected: 05/28/2022, Expires: Start: 05-28-2022 End: 07-28-2022 Ferritin [Mass/volume] in Serum or Plasma FERRITIN BLD Lab Routine Body mass index 40.0-44.9, adult (HCC) Expected: 05/28/2022, Expires: 07/28/2022 [facility] Work Phone: Comment on above: Expected: 05/28/2022, Expires: Start: 05-28-2022 End: 07-28-2022 Folate [Mass/volume] in Serum or Plasma FOLATE SERUM Lab Routine Body mass index 40.0-44.9, adult (HCC) Expected: 05/28/2022, Expires: 07/28/2022 [facility] Work Phone: Comment on above: Expected: 05/28/2022, Expires: Start: 05-28-2022 End: 07-28-2022 Hemoglobin A1c in Blood HGB A1C Lab Routine Body mass index 40.0-44.9, adult (HCC) Expected: 05/28/2022, Expires: 07/28/2022 [facility] Work Phone: Comment on above: Expected: 05/28/2022, Expires: Start: 05-28-2022 End: 07-28-2022 Iron and Iron binding capacity panel - Serum or Plasma IRON + TIBC Lab Routine Body mass index 40.0-44.9, adult (HCC) Expected: 05/28/2022, Expires: 07/28/2022 [facility] Work Phone: Comment on above: Expected: 05/28/2022, Expires: Start: 05-28-2022 End: 07-28-2022 Lipid 1996 panel - Serum or Plasma LIPID PANEL BASIC Lab Routine Body mass index 40.0-44.9, adult (HCC) Expected: 05/28/2022, Expires: 07/28/2022 [facility] Work Phone: Comment on above: Expected: 05/28/2022, Expires: Start: 05-28-2022 End: 07-28-2022 Natriuretic peptide.B prohormone N-Terminal [Mass/volume] in Serum or Plasma NT PRO BNP Lab Routine Body mass index 40.0-44.9, adult (HCC) Expected: 05/28/2022, Expires: 07/28/2022 [facility] Work Phone: Comment on above: Expected: 05/28/2022, Expires: Start: 05-28-2022 End: 07-28-2022 Thyrotropin [Units/volume] in Serum or Plasma TSH BLD Lab Routine Body mass index 40.0-44.9, adult (HCC) Expected: 05/28/2022, Expires: 07/28/2022 [facility] Work Phone: Comment on above: Expected: 05/28/2022, Expires: 3 Start: 05-28-2022 End: 07-28-2022 VITAMIN B1 (THIAMINE), WHOLE BLOOD VITAMIN B1 (THIAMINE), WHOLE BLOOD Lab Routine Body mass index 40.0-44.9, adult (HCC) Expected: 05/28/2022, Expires: 07/28/2022 [facility] Work Phone: Comment on above: Expected: 05/28/2022, Expires: 3 Start: 03-15-2022 DEPRESSION ASSESSMENT DEPRESSION ASSESSMENT [facility] Start: 11-13-2021 Influenza vaccination [facility] Start: 08-18-2021 End: 10-18-2021 Comprehensive metabolic 2000 panel - Serum or Plasma COMP METABOLIC PANEL Lab Routine Obesity, Class III, BMI 40-49.9 (morbid obesity) (HCC) Expected: 08/18/2021, Expires: 10/18/2021 [facility] Work Phone: Comment on above: Expected: 08/18/2021, Expires: 2 Start: 07-22-2021 End: 08-05-2021 Influenza virus A and B RNA and SARS-CoV-2 (COVID-19) N gene panel - Respiratory specimen by BEN with probe detection [facility] Work Phone: Comment on above: Expected: 07/22/2021, Expires: 2 Start: 07-03-2021 COVID-19 VACCINE (4 - Booster for Moderna series) COVID-19 VACCINE (4 - Booster for Moderna series) [facility] Start: 07-03-2021 COVID-19 VACCINE (4 - Moderna series) COVID-19 VACCINE (4 - Moderna series) [facility] Start: 01-03-2021 PAP TESTING PAP TESTING [facility] Start: 06-23-2019 Adult depression screening assessment DEPRESSION SCREENING [facility] Start: 06-27-2015 ONE PNEUMOVAX PRIOR TO AGE 65 ONE PNEUMOVAX PRIOR TO AGE [address] [facility] Start: 2014 Anxiety Screening Anxiety Screening [facility] Start: 2014 Depression Screening Depression Screening [facility] Start: 2010 PEDS TO ADULT TRANSITION ANNUAL ASSESSMENT PEDS TO ADULT TRANSITION ANNUAL ASSESSMENT [facility] Start: 2008 PEDS TO ADULT TRANSITION INITIAL DISCUSSION PEDS TO ADULT TRANSITION INITIAL DISCUSSION [facility] Bacteria identified in Urine by Culture URINE CULTURE Microbiology Routine 10 weeks gestation of 01/01/2023 12:55 PM EDT [facility] Work Phone: Bacteria identified in Urine by Culture BACTERIAL CULTURE, URINE Microbiology Routine Encounter for supervision of normal in multigravida 03/31/2024 9:48 AM [facility] End: 11-22-2023 BIOPHYSICAL PROFILE US [facility] BIOPHYSICAL PROFILE US [facility] Anc Imaging Routine Insulin controlled gestational diabetes mellitus (GDM) in third trimester Polyhydramnios in third trimester complication, single or unspecified fetus History of gastric bypass 31 weeks gestation of Once per week for 10 Occurrences starting 05/26/2023 until 11/22/2023 [facility] Work Phone: Comment on above: Once per week for 10 Occurrences startin g 05/26/2023 until 11/22/2023 Chlamydia trachomatis+Neisseria gonorrhoeae DNA [Presence] in Unspecified specimen by BEN with probe detection GONORRHEA/CHLAMYDIA NAAT Lab Routine 10 weeks gestation of 01/01/2023 12:55 PM EDT [facility] Work Phone: Chlamydia trachomatis+Neisseria gonorrhoeae DNA [Presence] in Unspecified specimen by BEN with probe detection GONORRHEA/CHLAMYDIA NAAT Lab Routine Encounter for supervision of normal in multigravida 03/31/2024 9:48 AM [facility] End: 01-24-2025 Choriogonadotropin.beta subunit [Units/volume] in Serum or Plasma HCG QUANTITATIVE Lab Routine Encounter for test, result positive 2x per week for 2 Occurrences starting 01/25/2024 until 01/24/2025 [facility] Work Phone: Comment on above: 2x per week for 2 Occurrences starting 1 03/26/2023 until 01/24/2025 End: 03-01-2025 Choriogonadotropin.beta subunit [Units/volume] in Serum or Plasma HCG QUANTITATIVE Lab Routine Missed menses 3x per week for 10 Occurrences starting 03/01/2024 until 03/01/2025 [facility] Work Phone: Comment on above: 3x per week for 10 Occurrences starting 03/01/2024 until 03/01/2025 End: 05-29-2023 ECG COMPLETE ECG COMPLETE ECG Routine Body mass index 40.0-44.9, adult (HCC) 1 Occurrences starting 05/28/2022 until 05/29/2023 [facility] Work Phone: Comment on above: 1 Occurrences starting 05/28/2022 until 05/29/2023 End: 07-28-2023 nonstress test NON-STRESS TEST Procedures Routine 31 weeks gestation of Polyhydramnios in third trimester complication, single or unspecified fetus Insulin controlled gestational diabetes mellitus (GDM) in third trimester Once per week for 10 Occurrences starting 05/26/2023 until 07/28/2023 [facility] Work Phone: Comment on above: Once per week for 10 Occurrences startin g 05/26/2023 until 07/28/2023 End: 11-05-2024 nonstress test NON-STRESS TEST Procedures Routine 28 weeks gestation of ([facility]) Supervision of high risk in second trimester ([facility]) Insulin controlled gestational diabetes mellitus (GDM) in second trimester ([facility]) Once per week for 7 Occurrences starting 08/14/2024 until 11/05/2024 [facility] Work Phone: Comment on above: Once per week for 7 Occurrences starting 08/14/2024 until 11/05/2024 End: 08-11-2023 OBSTETRIC ULTRASOUND WHI OBSTETRIC ULTRASOUND [facility] Anc Imaging Routine Insulin controlled gestational diabetes mellitus (GDM) in third trimester Polyhydramnios in third trimester complication, single or unspecified fetus Once per month for 2 Occurrences starting 05/26/2023 until 08/11/2023 [facility] Work Phone: Comment on above: Once per month for 2 Occurrences startin g 05/26/2023 until 08/11/2023 End: 11-06-2024 OBSTETRIC ULTRASOUND WHI OBSTETRIC ULTRASOUND [facility] Anc Imaging Routine Insulin controlled gestational diabetes mellitus (GDM) in second trimester ([facility]) 25 weeks gestation of ([facility]) Supervision of high risk in second trimester ([facility]) Once per month for 8 Occurrences starting 07/24/2024 until 11/06/[address] [facility] Comment on above: Once per month for 8 Occurrences startin g 07/24/2024 until 11/06/2024 PAP FLUID CERVICAL SCREENING PAP FLUID CERVICAL SCREENING Lab Routine Screening for cervical cancer Encounter for screening for human papillomavirus (HPV) 08/22/2021 3:07 PM EDT [facility] Work Phone: PAP TEST PAP TEST Lab Rou johnny Screening for cervical cancer 03/31/2024 9:48 AM EST [facility] Patient Education [facility] Work Phone: Patient referral [facility] Work Phone: POC MERCHANDISING LEAD ULTRASOUND POC MERCHANDISING LEAD ULTRASO UND Anc Imaging Routine with uncertain dates in first trimester Ordered: 01/01/2023 [facility] Work Phone: Comment on above: Ordered: 01/01/2023 End: 06-27-2023 Radiologic exam chest 2 views XR CHEST 2V FRONTAL/LAT Radiology Routine Body mass index 40.0-44.9, adult (HCC) 1 Occurrences starting 05/28/2022 until 06/27/2023 [facility] Work Phone: Comment on above: 1 Occurrences starting 05/28/2022 until 06/27/2023 ROUTINE, GR OUP B STREP PCR ROUTINE, GROUP B STREP PCR Microbiology Routine 34 weeks gestation of 06/21/2023 3:36 PM EDT [facility] Work Phone: Urine culture [facility] URINE OB DIP B/O URINE OB DIP B/ O Lab Routine History of gastric bypass 14 weeks gestation of Supervision of high risk in second trimester Ordered: 01/29/2023 [facility] Work Phone: Comment on above: Ordered: 01/29/2023 URINE OB DIP B/O URINE OB DIP B/ O Lab Routine 35 weeks gestation of Ordered: 06/25/2023 [facility] Work Phone: Comment on above: Ordered: 06/25/2023 End: 11-15-2023 US BREAST LTD LEFT US BREAST LTD LEFT Radiology Routine Breast cyst, left 1 Occurrences starting 10/16/2022 until 11/15/2023 [facility] Work Phone: Comment on above: 1 Occurrences starting 10/16/2022 until 11/15/2023 End: 12-31-2023 US PREG TRANSABD <14 WEEKS LTD US PREG TRANSABD <14 WEEKS LTD Radiology Routine , location unknown 1 Occurrences starting 12/01/2022 until 12/31/2023 [facility] Work Phone: Comment on above: 1 Occurrences starting 12/01/2022 until 12/31/2023 End: 12-31-2023 US PREG TRANSVAG <14 WEEKS US PREG TRANSVAG <14 WEEKS Radiology Routine , location unknown 1 Occurrences starting 12/01/2022 until 12/31/2023 [facility] Work Phone: Comment on above: 1 Occurrences starting 12/01/2022 until 12/31/2023 End: 12-05-2023 Us transvaginal US FEMALE PELVIS TRANSVAG Radiology Routine Left ovarian cyst 1 Occurrences starting 11/05/2022 until 12/05/2023 [facility] Work Phone: Comment on above: 1 Occurrences starting 11/05/2022 until 12/05/2023 End: 10-18-2023 XR UPPER GI SINGLE CONTRAST XR UPPER GI SINGLE CONTRAST Radiology Routine Food intolerance 1 Occurrences starting 09/18/2022 until 10/18/2023 [facility] Work Phone: Comment on above: 1 Occurrences starting 09/18/2022 until 10/18/2023 [facility] Immunizations Immunization Date Immunization Notes Care Provider [facility] 08-14-2024 RHO(D) immune globulin- IV or IM Sandra Edwards MD Work Phone: [facility] 08-14-2024 tetanus toxoid, reduced diphtheria toxoid, and acellular pertussis vaccine, adsorbed Sandra Edwards MD Work Phone: [facility] 06-01-2023 RHO(D) immune globulin- IV or IM Treatment Wstr Work Phone: [facility] 04-28-2023 tetanus toxoid, reduced diphtheria toxoid, and acellular pertussis vaccine, adsorbed Jimmie Wang MD Work Phone: [facility] 08-15-2019 RHO(D) immune globulin- IV or IM Kimi Jeffrey [employer] Work Phone: [facility] 08-15-2019 tetanus toxoid, reduced diphtheria toxoid, and acellular pertussis vaccine, adsorbed Kimi Jeffrey [employer] OPERATOR.[employer] Work Phone: [facility] 05-22-2019 RHO(D) immune globulin- IV or IM Kimi Jeffrey [employer] OPERATOR.[employer] Work Phone: [facility] Work Phone: 06-29-2018 tetanus toxoid, reduced diphtheria toxoid, and acellular pertussis vaccine, adsorbed Kimi Jeffrey [employer] OPERATOR.[employer] Work Phone: [facility] 05-23-2018 RHO(D) immune globulin- IV or IM Kimi Jeffrey [employer] OPERATOR.[employer]ORER Work Phone: [facility] Work Phone: 03-25-2018 influenza, injectable, quadrivalent, contains preservative Kimi Jeffrey [employer] OPERATOR.[employer]ER Work Phone: [facility] 03-25-2018 influenza virus vaccine, unspecified formulation Angie Mora MD Work Phone: [facility] 09-05-2012 human papilloma viru s vaccine, quadrivalent Kimi Jeffrey [employer] OPERATOR.[employer] Work Phone: [facility] 03-30-2012 human papilloma viru s vaccine, quadrivalent Kimi Jeffrey [employer] OPERATOR.[employer]ER [employer]ORER Work Phone: [facility] 12-01-2011 human papilloma viru s vaccine, quadrivalent Kimi Jeffrey [employer] OPERATOR.[employer]ENDER [employer]ORER Work Phone: [facility] 12-01-2011 tetanus toxoid, reduced diphtheria toxoid, and acellular pertussis vaccine, adsorbed Kimi Jeffrey [employer] OPERATOR.[employer]ENDER [employer]ORER Work Phone: [facility] 03-28-2010 Meningococcal, MCV4, unspecified conjugate formulation(groups A, C, Y and W-135) Kimi Jeffrey [employer] OPERATOR.[facility] Work Phone: [facility] Work Phone: 12-13-2008 diphtheria and tetanus toxoids, adsorbed for pediatric use Kimi Jeffrey [employer] OPERATOR.[facility] Work Phone: [facility] Work Phone: 10-08-2000 diphtheria, tetanus toxoids and acellular pertussis vaccine Kimi Jeffrey [employer] OPERATOR.BLENDER LABORER Work Phone: [facility] Work Phone: 10-08-2000 measles, mumps and rubella virus vaccine Kimi Jeffrey [employer] OPERATOR.[facility] Work Phone: [facility] Work Phone: 10-08-2000 poliovirus vaccine, inactivated Kimi Jeffrey [employer] OPERATOR.[facility] Work Phone: [facility] Work Phone: 10-08-2000 varicella virus vaccine Kimi Jeffrey [employer] OPERATOR.[employer]END[employer]ER Work Phone: [facility] Work Phone: 01-13-2000 diphtheria, tetanus toxoids and acellular pertussis vaccine Kimi Jeffrey [employer] OPERATOR.[employer]ER [employer]ORER Work Phone: [facility] Work Phone: 09-26-1997 diphtheria, tetanus toxoids and acellular pertussis vaccine Kimi Jeffrey [employer] OPERATOR.[employer]ENDER [employer]ORER Work Phone: [facility] Work Phone: 09-26-1997 haemophilus influenzae type b vaccine, HbOC conjugate Kimi Jeffrey [employer] OPERATOR.[facility] Work Phone: [facility] Work Phone: 09-26-1997 measles, mumps and rubella virus vaccine Kimi Jeffrey [employer] OPERATOR.[facility] Work Phone: [facility] Work Phone: 1997 Chicken Pox (disease) Jessic a Jeffrey [employer] OPERATOR.[facility] Work Phone: [facility] Work Phone: 01-03-1997 trivalent poliovirus vaccine, live, oral Kmii Jeffrey [employer] OPERATOR.[facility] Work Phone: [facility] Work Phone: 01-01-1997 hepatitis B vaccine, pediatric or pediatric/adolescent dosage Kimi Jeffrey [employer] OPERATOR.[facility] Work Phone: [facility] Work Phone: 1996 DTaP-Haemophilus influenzae type b conjugate vaccine Kimi Jeffrey [employer] OPERATOR.[facility] Work Phone: [facility] Work Phone: 1996 trivalent poliovirus vaccine, live, oral Kimi Jeffrey [employer] OPERATOR.[facility] Work Phone: [facility] Work Phone: 1996 DTaP-Haemophilus influenzae type b conjugate vaccine Kimi Jeffrey [employer] OPERATOR.[facility] Work Phone: [facility] Work Phone: 1996 trivalent poliovirus vaccine, live, oral Kimi Jeffrey [employer] OPERATOR.[facility] Work Phone: [facility] Work Phone: 1996 hepatitis B vaccine, pediatric or pediatric/adolescent dosage Kimi Jeffrey [employer] OPERATOR.[facility] Work Phone: [facility] Work Phone: 1996 hepatitis B vaccine, pediatric or pediatric/adolescent dosage Kimi Jeffrey APRN.[facility] Work Phone: [facility] Work Phone: NEGATED: Highlighted row has not occurred!04-28-2023 RHO(D) immune globulin- IV or IM Jimmie Wang MD Work Phone: [facility] Payers Date Payer Category Payer Self-pay [id number] 2022 Medicaid [id number] 2020 Medicaid [employer] MEDICA[employer] [id number] 2020-Present [phone] [address] [place] [address] Medicaid [id number] 2020 Government (not [facility] or Medicaid) [employer] MGMT [id number] 2020 Unknown [facility] [employer] CLA IMS MGMT [id number] 2020-Present [phone] [id number] 2019 Medicaid [id number] Unknown [employer] [id number] Unknown [facility] [id number] Unknown [employer] ADV D *DO NOT USE* [id number] Unknown [id number] Unknown [id number] Unknown [id number] Unknown [id number] Social History Date Type Detail Facility Start: 05-15-2013 End: 05-11-2022 Tobacco smoking status [facility] Never smoked tobacco [facility] Work Phone: Start: 05-15-2013 End: 05-11-2022 Tobacco use and exposure Smokeless tobacco non-user [facility] Work Phone: Start: 07-22-2021 End: 09-21-2024 Alcohol intake Current non-drinker of alcohol (finding) [facility] Start: 11-28-2019 History SDOH Financial [address] [facility] Start: 11-28-2019 History SDOH Food Worry [address] [facility] Start: 11-28-2019 History SDOH Transport Med [address] [facility] Start: 03-16-2019 Education [address] [facility] Start: 1995 Sex Assigned At Not on file C [facility] Start: 07-12-2021 End: 07-22-2021 Exposure to SARS-CoV-2 (event) Yes [facility] Work Phone: Start: 12-13-2019 End: 10-03-2021 Exposure to SARS-CoV-2 (event) Not sure [facility] Work Phone: Start: 08-27-2022 End: 04-12-2023 Tobacco smoking status NHIS Unknown if ever smoked [facility] Start: 10-16-2019 None [facility] Start: 05-24-2019 With Family [facility] Start: 05-24-2019 Non-smoker [facility] Start: 1995 Sex Assigned At Female W [facility] Start: 08-04-2022 End: 06-21-2024 History of Social function [facility] Start: 08-04-2022 End: 06-21-2024 Tobacco use panel [facility] How hard is it for you to pay for the very basics like food, housing, medical care, and heating Not hard at all [facility] (I/We) worried whether (my/our) food would run out before (I/we) got money to buy more. Never true [facility] Start: 11-03-2022 [facility] Start: 06-24-2024 Sex Female (finding) [facility] NEGATED: Highlighted row [facility] Medical Equipment Procedure Code Equipment Code Equipment Origin al Text Equipment Identifier Dates [id number], [id number], [id number], [id number], [id number], [id number], [id number] Start: 08-16-2019 End: 08-29-2024 Comment on above: 1 Each once daily. Goals Date Patient Goal Desired Activity /State Personal health goal Personal health goal Functional Status Date Assessment Result Facility 06-17-2024 Are you deaf, or do you have serious difficulty hearing No 06/17/2024 4:23 PM Chen Tirado, KEYONNA [facility] 06-17-2024 Are you blind, or do you have serious difficulty seeing, even when wearing glasses No 06/17/2024 4:23 PM Chen Tirado, RN No [facility] 06-17-2024 Do you have serious difficulty walking or climbing stairs No 06/17/2024 4:23 PM Chen Tirado, RN No [facility] 06-17-2024 Do you have difficul ty dressing or bathing No 06/17/2024 4:23 PM Chen Tirado, RN No [facility] 06-17-2024 Because of a physica l, mental, or emotional condition, do you have difficulty doing errands alone such as visiting a physician's office or shopping No 06/17/2024 4:23 PM Chen Tirado RN No [facility] 05-03-2023 Are you deaf, or do you have serious difficulty hearing No 05/03/2023 4:15 PM Hortencia Curtis RN No [facility] 05-03-2023 Are you blind, or do you have serious difficulty seeing, even when wearing glasses No 05/03/2023 4:15 PM Hortencia Curtis RN No [facility] 05-03-2023 Do you have serious difficulty walking or climbing stairs No 05/03/2023 4:15 PM Hortencia Curtis RN No [facility] 05-03-2023 Do you have difficul ty dressing or bathing No 05/03/2023 4:15 PM Hortencia Curtis RN No [facility] 05-03-2023 Because of a physica l, mental, or emotional condition, do you have difficulty doing errands alone such as visiting a physician's office or shopping No 05/03/2023 4:15 PM Hortencia Curtis RN No [facility] Mental Status Date Assessment Result Facility 06-17-2024 Because of a physica l, mental, or emotional condition, do you have serious difficulty concentrating, remembering, or making decisions No 06/17/2024 4:23 PM Chen Tirado RN No [facility] 05-03-2023 Because of a physica l, mental, or emotional condition, do you have serious difficulty concentrating, remembering, or making decisions No 05/03/2023 4:15 PM Hortencia Curtis RN No [facility] 04-12-2023 Cognitive function Level Of Cons ciousness Awake;Alert;Appropriate [facility] Work Phone: Clinical Notes 06-29-2019 to 09-21-2024 Quick Notes - Sandra Edwards MD - 09/21/2024 11:44 AM EDTPrenatal Quick Notes - Sandra Edwards MD - 09/21/2024 11:44 AM EDTSandra Edwards MD - 09/21/2024 10:49 AM EDTPatient Instructions Note Date & Type Note Facility 09-21-2024 Progress note Formatting of t his note might be different from the original. SW- Pt doing well. No DIEGO, vision changes, pain, ctx, vb, lof. Good FM PE: Gen- NAD, well appearing Abd- Soft, gravid, NT See flowsheet A/p 33 wk gestation - A2GDM: Managed by endo. Average BG 90-05 per patient. Cont antepartum testing and repeat growth US. Discussed delivery timing - Anemia: Cont PO iron - RTO 1 wk Sandra Edwards DO [facility] 09-21-2024 Miscellaneous Notes SW- Pt doing well. No DIEGO, vision changes, pain, ctx, vb, lof. Good FM PE: Gen- NAD, well appearing Abd- Soft, gravid, NT See flowsheet A/p 33 wk gestation - A2GDM: Managed by endo. Average BG 90-05 per patient. Cont antepartum testing and repeat growth US. Discussed delivery timing - Anemia: Cont PO iron - RTO 1 wk Sandra Edwards DO documented in this encounter [facility] 09-21-2024 History of Presen t illness Narrative NST SUMMARY PROVIDER ASSESSMENT AND INTERPRETATION Seda De León is a 29 year old female, , who is at 33w4d with an BELEM of 11/05/2024, by Last Menstrual Period dating method. Indications for NST: Gestational Diabetes - Insulin Controlled Baseline: 135 Variability: Moderate Accelerations: Present 15 X 15 Decelerations: None Contractions: TOCO: one ctx Interpretation: Reactive SIGNATURE: Sandra Edwards DO documented in this encounter [facility] 09-21-2024 Instructions Donna Miguel MA - 09/21/2024 9:59 AM EDT SEQUENTIAL SCREENINGS The [facility] offers sequential screenings for women who are [...] It will require an appointment with our bottle house quality control technician. This is not an ultrasound performed [...] the above symptoms, contact our office at [phone] and ask to speak with a nurse. After hours, you can call doctors registry at [phone] OR call [facility] at [phone] and ask to have the doctor educational psychology professor paged. If you consider this an emergency, dial 7-5-2 or go to your nearest emergency department. NEED HELP? Are you dealing with a violent or abusive relationship? Are you a victim of rape or sexual assult? Call [facility] ([place]) 24 hour Crisis Hotline: 463.190.6107 or 499-737-0487. MANUAL Your Guide to a Healthy manual is now on-line. Visit [email or web address] Lora to download your free copy documented in this encounter [facility] 09-07-2024 Progress note Formatting of t his note might be different from the original. KJ - S: Seda denies LOF, contractions or vaginal bleeding. O: 31w4d, see flow sheet SENSITIVE EXAM: Sensitive exam not performed. A/P: Assessment & Plan Polyhydramnios in third trimester complication, single or unspecified fetus (HCC) Growth US today with BPP 8/8 Orders: URINE OB DIP B/O Insulin controlled gestational diabetes mellitus (GDM) in second trimester ([facility]) Managed by endocrinology. Patient reports BS are getting better. testing at 32 weeks. Orders: URINE OB DIP B/O Blood-Glucose Sensor (FREESTYLE DELORIS 3 PLUS SENSOR) ira; Please change every 15 days Anemia affecting , antepartum ([facility]) Continue iron PO. S/p IV iron. Orders: URINE OB DIP B/O 31 weeks gestation of ([facility]) Orders: URINE OB DIP B/O Reviewed PTL & FM precautions Chelsea Navarro MD [facility] 09-07-2024 Miscellaneous Notes KJ - S: Seda denies LOF, contractions or vaginal bleeding. O: 31w4d, see flow sheet SENSITIVE EXAM: Sensitive exam not performed. A/P: Assessment & Plan Polyhydramnios in third trimester complication, single or unspecified fetus (HCC) Growth US today with BPP 8/8 Orders: URINE OB DIP B/O Insulin controlled gestational diabetes mellitus (GDM) in second trimester ([facility]) Managed by endocrinology. Patient reports BS are getting better. testing at 32 weeks. Orders: URINE OB DIP B/O Blood-Glucose Sensor (FREESTYLE DELORIS 3 PLUS SENSOR) ira; Please change every 15 days Anemia affecting , antepartum ([facility]) Continue iron PO. S/p IV iron. Orders: URINE OB DIP B/O 31 weeks gestation of ([facility]) Orders: URINE OB DIP B/O Reviewed PTL & FM precautions Chelsea Navarro MD documented in this encounter [facility] 09-07-2024 Note Indication Evaluation of well-being. Evaluation of growth, Gestational diabetes - insulin dependent, History of gestational hypertension Impression remote read - Single, live, intrauterine . - presentation is cephalic, oblique. - The biometry is consistent with the assigned gestational dating. - The EFW is 1928 g, at the 60%. AC is at the 85%. - The amniotic fluid volume is normal amount with an MVP of 6.6 cm and an JOSY of 21 cm. - The placenta is posterior, fundal. - BPP 10/20. - No malformations visualized on a limited survey as detailed below. Recommendations Continue planned testing Maternal Assessment Height 160 cm Height (ft) 5 ft Height (in) 3 in Physical Exam Initial weight (lb) 147 lb Initial BMI 26.05 kg/m Method Transabdominal ultrasound examination Cash . Number of fetuses: 1 Dating LMP on: 01/30/2024 Cycle: LMP date not known GA by LMP 31 w + 4 d BELEM by LMP: 11/05/2024 GA by prior assessment 31 w + 4 d BELEM by prior assessment: 11/05/2024 Ultrasound examination on: 09/07/2024 GA by U/S based upon: AC, BPD, Femur, HC GA by U/S 31 w + 6 d BELEM by U/S: 11/03/2024 Assigned: based on stated BELEM, selected on 08/14/2024 Assigned GA 31 w + 4 d Assigned BELEM: 11/05/2024 General Evaluation Cardiac activity present. FHR 145 bpm. movements: present. Presentation: cephalic, oblique Placenta: Placental site: posterior, fundal Umbilical cord: Cord vessels: 3 vessel cord. Insertion site: normal insertion Amniotic fluid: Amount of AF: normal amount. MVP 6.6 cm. JOSY 21.0 cm. Q1 5.3 cm, Q2 3.8 cm, Q3 6.6 cm, Q4 5.3 cm Biophysical Profile 2: breathing movements 2: Gross body movements 2: tone 2: Amniotic fluid volume 10/20 Biophysical profile score Growth Overview Exam date GA BPD (mm) HC (mm) AC (mm) FL (mm) HL (mm) EFW (g) 06/23/2024 20w 5d 49.5 60% 189.7 66% 165.8 73% 32.2 38% 32.2 51% 389 57% 08/14/2024 28w 1d 71.8 61% 270.4 69% 251.9 79% 49.3 16% 1238 51% 09/07/2024 31w 4d 79.3 48% 298.8 64% 289.7 85% 58.3 27% 1928 60% Biometry Standard BPD 79.3 mm 31w 6d 48% Hadlock OFD 107.6 mm 32w 1d 70% Nicolaides HC 298.8 mm 32w 2d 64% Kristin AC 289.7 mm 33w 0d 85% Hadlock Femur 58.3 mm 30w 3d 27% Kristin EFW 1,928 g 31w 6d 60% Hadlock EFW (lb) 4 lb EFW (oz) 4 oz EFW by: Hadlock (HC-AC-FL) Extended Cardroom Hand 5.1 mm Extremities / Bony Struc FL / HC 0.20 Other Structures FHR 145 bpm Anatomy Lateral ventricles: normal Cavum septi pellucidi: normal Cerebellum: normal Cisterna magna: normal 4-chamber view: normal RVOT view: normal LVOT view: normal 3-vessel view: normal Heart / Thorax Situs: situs solitus (normal) Diaphragm: normal Stomach: normal Kidneys: normal Bladder: normal Wants to know sex: yes Performed By: Gita Salcido RDMS Read By: Kyung Tom M.D. [facility] 09-07-2024 Instructions Tom Thomson MA - 09/07/2024 9:52 AM EDT SEQUENTIAL SCREENINGS The [facility] offers sequential screenings for women who are [...] It will require an appointment with our bottle house quality control technician. This is not an ultrasound performed [...] the above symptoms, contact our office at [phone] and ask to speak with a nurse. After hours, you can call doctors registry at [phone] OR call [facility] at [phone] and ask to have the doctor educational psychology professor paged. If you consider this an emergency, dial 0-7-6 or go to your nearest emergency department. NEED HELP? Are you dealing with a violent or abusive relationship? Are you a victim of rape or sexual assult? Call [facility] ([place]) 24 hour Crisis Hotline: 899.424.8101 or 915-981-4776. MANUAL Your Guide to a Healthy manual is now on-line. Visit [email or web address] [email or web address] to download your free copy documented in this encounter [facility] 08-29-2024 Instructions Eddi Sneed MD - 08/29/2024 8:49 AM EDT Continue 32 unuts with breakfast and reduce evening dose to 9 units daily Continue CGM documented in this encounter [facility] 08-29-2024 Note HNO ID: [id number] Author: EDDI SNEED MD Service: ? Author Type: Physician Type: Progress Notes Filed: 08/30/2024 22:25 Note Text: [facility] Follow up visit note Referred by: Inna Garcia MD (OBGYN) Chief complaint: Gestational Diabetes Mellitus My final recommendations will be communicated back to the requesting physician by way of shared medical record or letter via US mail. History of Present Illness: Seda De León is a 29 year old female patient presenting for follow up evaluation of Gestational diabetes mellitus She is A1, currently 30+ weeks of gestation. Last delivery was in 06/2023. Initial visit with vt on 06/22/24. EUGENE 07/25/24 PMH: significant for gastric bypass in 2019, iron deficiency anemia for which she is undergoing infusions along with oral iron supplements. She had 2 pregnancies before gastric bypass -Initially diagnosed with GDM during second and third (so prior two pregnancies) - Blood sugars typically normalize within 1-2 days . . - Weight gain of 10-15 lbs this ; no significant weight changes in previous pregnancies. - no new symptoms of hyperglycemia - she reports no concerns today other than some lows No known diabetic complications as expected from GDM Other comorbidities-- No -Family history of diabetes mellitus - No Personal history of pancreatitis-- No History of alcohol consumption--No Family history of thyroid cancer-- No Personal history of Urinary tract infections -- None is the recent past - Insulin therapy initiated one week ago with Lispro and Lantus due to blood sugars >200 mg/dL. . Diabetes Medications -Current regimen: insulin NPH 32 units before breakfast, 16 units before dinner started on initial visit with me, switched from basal-bolus (TID) regimen which resulted in multiple hypoglycemic episodes which are now better Reduced dose of before dinner insulin to 14 units on last visit, and advised to go down further if continues to experience lows after 2 to 3 days of taking new dose- she further reduced it as instructed to 11 units now for the last few days -Misses doses: None -Adverse medication effects: hypoglycemia -Rotating injection sites: yes -Previously Used DM Meds: She was on insulin during previous , treated by OBGYN . Blood sugars -Self monitoring of blood sugar via CGM Summary of Personal CGM Findings: Type of CGM: Key [employer] deloris 3+ August 02, 2024 to August 29, 2024 1) CGM recording is adequate for interpretation. Worn 95% of time. 2) Average glucose is 85 mg/dL. BG range/St. Dev: 25% 3) 82% time in range 70-180 mg/dL, however ranges are different and hence not significantly concerning on most blood sugar readings and the reading mostly except some are within goal 4) patterns: shows random lows (below recommended threshold for ) to lowest 56 mg/dl, during the day, and few overnight . Hypoglycemia -Hypoglycemic episodes: much less frequent than before, but still has some lows randomly -Frequency and timing of hypoglycemia: lowest 54 mg/dl -Hypoglycemia awareness: yes, diaphoresis and tremors. . Lifestyle -Exercise: low to moderate -Diet: - Adheres to a low-carb, high-protein diet, consuming 5 small meals daily since gastric bypass . ROS: SYSTEMIC: Denies fatigue, malaise, energy, Weight has been stable, heat/cold intolerance, polydipsia EYES: Denies blurring of vision, diplopia, pain/discomfort, excessive tearing, swelling of eye lids, bulging, redness, dryness, NECK: Denies goiter, lump, pain/discomfort, dysphagia, hoarseness, sore thorat RESPIRATORY: Denies dyspnea at rest/with exertion, orthopnea cough, pleuritic chest pain, snoring, apnea episodes CARDIOVASCULAR: Chest pain, palpitations, irregular heart beats GASTRO-INTESTINAL:Denies Nausea, vomiting, abdominal pain, hyperdefecation, rectal bleeding NEUROLOGICAL: Denies dizziness, lightheadedness, weakness, cramping, numbness/tingling of extremities MUSCULOSKELETAL: Denies joint pain, stiffness, swelling, cramping or weakness. GENITOURINARY: Denies polyuria, recurrent UTI/yeast infections SKIN: Denies dryness, brittle nails, hair loss, alopecia, excessive sweating, flushing, darkening of skin PSYCHIATRIC: Denies anxiety, depression, panic attacks, irritability, mood swings Past Medical History PAST MEDICAL HISTORY Diagnosis Date Anemia complicating , first trimester ([facility]) 03/24/2019 Anemia during in second trimester ([facility]) 05/19/2023 Asthma as a child Childhood asthma without complication ([facility]) 01/03/2018 01/03/2018 Not currently using Albuterol inhaler. Continue to monitor. No Hemabate. SW Concussion 2009 COVID-19 virus infection 03/26/202103/2021 Diet controlled gestational diabetes mellitus (GDM) in third trimester ([facility]) 08/16/2019 Gestational hypertension (HCC) History of (more content not included)... [facility] 08-29-2024 History of Presen t illness Narrative [facility] Follow up visit note Referred by: Inna Garcia MD (OBGYN) Chief complaint: Gestational Diabetes Mellitus My final recommendations will be communicated back to the requesting physician by way of shared medical record or letter via US mail. History of Present Illness: Seda De León is a 29 year old female patient presenting for follow up evaluation of Gestational diabetes mellitus She is A1, currently 30+ weeks of gestation. Last delivery was in 06/2023. Initial visit with me on 06/22/24. EUGENE 07/25/24 PMH: significant for gastric bypass in 2019, iron deficiency anemia for which she is undergoing infusions along with oral iron supplements. She had 2 pregnancies before gastric bypass -Initially diagnosed with GDM during second and third (so prior two pregnancies) - Blood sugars typically normalize within 1-2 days . . - Weight gain of 10-15 lbs this ; no significant weight changes in previous pregnancies. - no new symptoms of hyperglycemia - she reports no concerns today other than some lows No known diabetic complications as expected from GDM Other comorbidities-- No -Family history of diabetes mellitus - No Personal history of pancreatitis-- No History of alcohol consumption--No Family history of thyroid cancer-- No Personal history of Urinary tract infections -- None is the recent past - Insulin therapy initiated one week ago with Lispro and Lantus due to blood sugars >200 mg/dL. . Diabetes Medications -Current regimen: insulin NPH 32 units before breakfast, 16 units before dinner started on initial visit with me, switched from basal-bolus (TID) regimen which resulted in multiple hypoglycemic episodes which are now better Reduced dose of before dinner insulin to 14 units on last visit, and advised to go down further if continues to experience lows after 2 to 3 days of taking new dose- she further reduced it as instructed to 11 units now for the last few days -Misses doses: None -Adverse medication effects: hypoglycemia -Rotating injection sites: yes -Previously Used DM Meds: She was on insulin during previous , treated by OBGYN . Blood sugars -Self monitoring of blood sugar via CGM Summary of Personal CGM Findings: Type of CGM: [employer] deloris 3+ August 02, 2024 to August 29, 2024 1) CGM recording is adequate for interpretation. Worn 95% of time. 2) Average glucose is 85 mg/dL. BG range/St. Dev: 25% 3) 82% time in range 70-180 mg/dL, however ranges are different and hence not significantly concerning on most blood sugar readings and the reading mostly except some are within goal 4) patterns: shows random lows (below recommended threshold for ) to lowest 56 mg/dl, during the day, and few overnight . Hypoglycemia -Hypoglycemic episodes: much less frequent than before, but still has some lows randomly -Frequency and timing of hypoglycemia: lowest 54 mg/dl -Hypoglycemia awareness: yes, diaphoresis and tremors. . Lifestyle -Exercise: low to moderate -Diet: - Adheres to a low-carb, high-protein diet, consuming 5 small meals daily since gastric bypass . ROS: SYSTEMIC: Denies fatigue, malaise, energy, Weight has been stable, heat/cold intolerance, polydipsia EYES: Denies blurring of vision, diplopia, pain/discomfort, excessive tearing, swelling of eye lids, bulging, redness, dryness, NECK: Denies goiter, lump, pain/discomfort, dysphagia, hoarseness, sore thorat RESPIRATORY: Denies dyspnea at rest/with exertion, orthopnea cough, pleuritic chest pain, snoring, apnea episodes CARDIOVASCULAR: Chest pain, palpitations, irregular heart beats GASTRO-INTESTINAL:Denies Nausea, vomiting, abdominal pain, hyperdefecation, rectal bleeding NEUROLOGICAL: Denies dizziness, lightheadedness, weakness, cramping, numbness/tingling of extremities MUSCULOSKELETAL: Denies joint pain, stiffness, swelling, cramping or weakness. GENITOURINARY: Denies polyuria, recurrent UTI/yeast infections SKIN: Denies dryness, brittle nails, hair loss, alopecia, excessive sweating, flushing, darkening of skin PSYCHIATRIC: Denies anxiety, depression, panic attacks, irritability, mood swings Past Medical History PAST MEDICAL HISTORY Diagnosis Date Anemia complicating , first trimester ([facility]) 03/24/2019 Anemia during in second trimester ([facility]) 05/19/2023 Asthma as a child Childhood asthma without complication ([facility]) 01/03/2018 01/03/2018 Not currently using Albuterol inhaler. Continue to monitor. No Hemabate. SW Concussion 2010 COVID-19 virus infection 03/26/202103/2021 Diet controlled gestational diabetes mellitus (GDM) in third trimester ([facility]) 08/16/2019 Gestational hypertension ([facility]) History of gestational hypertension 03/16/2019 Hx of gestational diabetes mellitus, not currently 05/16/2020 Insulin controlled gestational diabetes mellitus (GDM) in third trimester ([facility]) 05/19/2023 Maternal iron deficiency anemia complicating , third trimester ([facility]) 05/04/2023 Mononucleosis NEGATIVE MEDICAL HISTORY normal color vision PMH - PAST MEDICAL HISTORY OF slip disc Polyhydramnios in third trimester (HCC) 07/05/2018 06/03/23 Mild noted on 32 week growth. Continue to plan for testing. Cristy Matthew APRN.BLENDER LABORER July 05, 2018 D/w her risks. NSTs weekly. Kick counts. PTL precuations. F/u weekly. Angie Mora MD Spondylolysis of lumbar region 06/25/2011 Past Surgical History PAST SURGICAL HISTORY Procedure Laterality Date GASTRIC BYPASS HX 08/20/2022 LAPAROSCOPY SURG CHOLECYSTECTOMY 08/30/2018 Cholecystectomy, lap Family History FAMILY HISTORY Problem Relation Age of Onset No Known Problems Mother No Known Problems Father No Known Problems Sister No Known Problems Sister No Known Problems Maternal Grandmother No Known Problems Maternal Grandfather Hypertension Paternal Grandmother Heart Paternal Grandfather other (Bladder reflux) Daughter Seizures Daughter Heart Paternal great-grandfather Anesthesia Problems No Family History Social History Social History Tobacco Use Smoking status: Never Smokeless tobacco: Never Vaping Use Vaping status: Never Used Substance Use Topics Alcohol use: No Drug use: No Allergies ALLERGIES Allergen Reactions Cefdinir Vomiting Morphine Hives, Shortness of Breath given medication at [facility] ER and reacted Peanuts Swelling redness Current Medications Current Outpatient Medications Medication Sig Dispense Refill BD ULTRAFINE III MINI PEN 31 gauge x 3/16 1 each as needed. Blood-Glucose Sensor (AradigmSTYLE DELORIS 3 PLUS SENSOR) ira Please change every 15 days 6 each 1 insulin NPH subcutaneous pen Take 32 units before breakfast and 16 units before dinner (Patient taking differently: Take 32 units before breakfast and 10 units before dinner) 15 mL 1 blood sugar diagnostic (FREESTYLE PRECISION CARA STRIPS) test strip Use to check blood sugar once daily as needed. 20 strip 1 aspirin, enteric coated (ECOTRIN LOW STRENGTH) 81 mg EC tablet Take 1 tablet by mouth once daily. 90 tablet 3 ondansetron orally disintegrating (ZOFRAN ODT) 4 mg disintegrating tablet Take 1 tablet by mouth every 8 hours as needed. 20 tablet 1 ferrous sulfate 325 mg (65 mg iron) tablet Take 325 mg by mouth once daily. vit/iron fum/folic ac (-FOLIC ACID ORAL) Take 1 tablet by mouth once daily. flash glucose sensor (FREESTYLE DELORIS 14 DAY SENSOR) kit Apply new sensor every 14 days to upper arm. Use to check blood sugar at least 4 times daily. (Patient not taking: Reported on 08/29/2024) 6 kit 4 No current facility-administered medications for this visit. Vitals: 08/29/24 0838 BP: 100/68 Pulse: 74 Resp: 18 SpO2: 98% Weight: 84.8 kg (187 lb) Physical Exam GENERAL: Well nourished, obese, well hydrated, in no distress and oriented x 3 EYES: no thyroid eye signs, EOMI NECK: , no tenderness and adenopathy THYROID: Non-tender to palpable, no evidence of goiter, no nodules palpable LUNGS: Unlabored on room air HEART: regular rate and rhythm, normal S and S2 GI: gravid abdomen Injections sites without lipodystrophy EXTREMITIES: no edema NEURO: normal strength, no tremor, monofilament testing not done today either. OTHER: Acanthosis None Labs TSH Date Value Ref Range Status 06/02/2022 0.668 0.270 - 4.200 mIU/L Final Comment: If the patient is , TSH reference range varies by gestational period: First Trimester (weeks 9-12): 0.180-2.990 mIU/L Second Trimester: 0.110-3.980 mIU/L Third Trimester: 0.480-4.710 mIU/L Marquez Lagos et al. A Practical Approach for the Verifications and Determination of Site- and Trimester-Specific Reference Intervals for Thyroid Function tests in . Thyroid, 2019:29:3:412-420. Yobani Ellington et al. 2017 Guidelines of the [place] Thyroid Association for the Diagnosis and Management of Thyroid Disease during and the . Thyroid, 2017:27:3:315-389. 01/10/2021 0.792 0.270 - 4.200 uU/mL Final Comment: If the patient is , TSH reference range varies by gestational period: First Trimester (weeks 9-12): 0.180-2.990 mcIU/mL Second Trimester: 0.110-3.980 mcIU/mL Third Trimester: 0.480-4.710 mcIU/mL Marquez Lagos et al. A Practical Approach for the Verifications and Determination of Site- and Trimester-Specific Reference Intervals for Thyroid Function tests in . Thyroid, 2019:29:3:412-420. Yobani Ellington et al. 2017 Guidelines of the [place] Thyroid Association for the Diagnosis and Management of Thyroid Disease during and the . Thyroid, 2017:27:3:315-389. 05/16/2020 0.541 0.270 - 4.200 uU/mL Final Comment: If the patient is , TSH reference range varies by gestational period: First Trimester (weeks 9-12): 0.180-2.990 mcIU/mL Second Trimester: 0.110-3.980 mcIU/mL Third Trimester: 0.480-4.710 mcIU/mL Marquez Lagos et al. A Practical Approach for the Verifications and Determination of Site- and Trimester-Specific Reference Intervals for Thyroid Function tests in . Thyroid, 2019:29:3:412-420. Yobani Ellington, et al. 2017 Guidelines of the [place] Thyroid Association for the Diagnosis and Management of Thyroid Disease during and the . Thyroid, 2017:27:3:315-389. Free T4 Date Value Ref Range Status 05/16/2020 1.3 0.9 - 1.7 ng/dL Final Hemoglobin A1C Date Value Ref Range Status 06/16/2024 5.3 4.3 - 5.6 % Final Comment: [place] Diabetes Association guidelines indicate that patients with HgbA1c in the range 5.7-6.4% are at increased risk for development of diabetes, and intervention by lifestyle modification may be beneficial. HgbA1c greater or equal to 6.5% is considered diagnostic of diabetes. Cholesterol, Total Date Value Ref Range Status 06/02/2022 127 <200 mg/dL Final Comment: <200 mg/dL, Desirable 200-239 mg/dL, Borderline high >239 mg/dL, High HDL Cholesterol Date Value Ref Range Status 06/02/2022 41 >39 mg/dL Final Comment: 40-59 mg/dL, Acceptable >59 mg/dL, High: Negative risk factor for coronary heart disease <40 mg/dL, Low: Positive risk factor for coronary heart disease LDL Cholesterol, Calculated Date Value Ref Range Status 06/02/2022 53 <100 mg/dL Final Comment: <100 mg/dL, Optimal 100-129 mg/dL, Near optimal/above optimal 130-159 mg/dL, Borderline high 160-189 mg/dL, High >189 mg/dL, Very high Secondary prevention optimal LDL Cholesterol levels are recommended to be < 70 mg/dL Triglyceride Date Value Ref Range Status 06/02/2022 165 (H) <150 mg/dL Final Comment: <150 mg/dL, Normal 150-199 mg/dL, Borderline high 200-499 mg/dL, High >499 mg/dL, Very high Assessment and Plan Gestational diabetes mellitus: On insulin basal-bolus regimen Currently 30+ weeks of gestation Had GDM during previous , requiring insulin, no complications reported -A1c 5.3% in 06/2024, but this is not reliable -eGFR normal, at 135 in 06/2024 - she has seen DE on 06/21/24, has an appt with endocrine dietitian - reviewed no need for checking of preventative labs during -Current regimen: Insulin NPH 32 units before breakfast, 11 units before dinner Plan: - will reduce evening dose to 10 units daily. Continue same dose for before breakfast Advised lowering to 9 units before dinner if continues to have symptoms overnight or BG lower than 64 mg/dl - advised continuing small frequent meals as is, low carb high protein- will send prescriptions for deloris 3+ -hypoglycemia treatment reviewed, along with BG targets. Reviewed lowering insulin dose by 2 units in the evening if waking up with low sugars or if overnight hypoglycemia noted after this change. - she is also instructed to check finger stick if BG are extreme and appear not consistent with diet and activity, and bring log on next visit -Lifestyle modifications (diet, exercise) have been discussed with the patient - completed diabetes education on 06/21/24 - recommended to keep appt with dietitian - labs for cholesterol may not bladder changer, hence will defer, reviewed diet and exercise as above Scripts sent to pharmacy of pt choice: Yes RTC in 4 weeks I have confirmed and edited as necessary, the past medical, surgical, family, and social history as obtained by others. Medical Decision Making: Problems: Moderate: 1+ chronic illnesses with change Risk: Moderate: Drug management Medical Decision Making Level: 4 - Moderate Eddi Sneed MD Endocrinology Associate Staff [facility] Endocrinology and Metabolism [place] [phone] Images from the original note were not included. documented in this encounter [facility] 08-29-2024 Note HNO ID: [id number] Author: JOSE MUNOZ RN Service: ? Author Type: Registered Nurse Type: Progress Notes Filed: 08/30/2024 22:25 Note Text: [facility] 08-29-2024 Progress note Formatting of t his note might be different from the original. S: Seda De León is a 29 year old female who presents at 11/05/2024, by Last Menstrual Period for a routine visit. Denies headache, visual changes, chest pain, shortness of breath, vaginal bleeding, leakage of fluid, or dysuria. Feeling well, no complaints. Good movement, No contractions O: See flow sheet Gen: No apparent distress Abd: Gravid, nontender Growth US next visit Insulin managed by endo. Has apportionment today ASSESSMENT/PLAN: 1. Polyhydramnios in third trimester complication, single or unspecified fetus ([facility]) - ICD9: 657.03, ICD10: O40.3XX0 (primary diagnosis) Repeat US next visit - URINE OB DIP B/O 2. Insulin controlled gestational diabetes mellitus (GDM) in second trimester ([facility]) - ICD9: 648.83, ICD10: O24.414 Managed by endo - URINE OB DIP B/O 3. Rh negative state in antepartum period ([facility]) - ICD9: 646.83, ICD10: O26.899, Z67.91 S/p rhogam - URINE OB DIP B/O 4. Supervision of high risk in second trimester ([facility]) - ICD9: V23.9, ICD10: O09.92 - URINE OB DIP B/O 5. Anemia, unspecified type - ICD9: 285.9, ICD10: D64.9 Rpeat Hgb in 2-4 weeks - URINE OB DIP B/O 6. 30 weeks gestation of ([facility]) - ICD9: V22.2, ICD10: Z3A.30 - URINE OB DIP B/O Inna Garcia MD [facility] 08-29-2024 Miscellaneous Notes S: Seda De León is a 29 year old female who presents at 11/05/2024, by Last Menstrual Period for a routine visit. Denies headache, visual changes, chest pain, shortness of breath, vaginal bleeding, leakage of fluid, or dysuria. Feeling well, no complaints. Good movement, No contractions O: See flow sheet Gen: No apparent distress Abd: Gravid, nontender Growth US next visit Insulin managed by endo. Has apportionment today ASSESSMENT/PLAN: 1. Polyhydramnios in third trimester complication, single or unspecified fetus ([facility]) - ICD9: 657.03, ICD10: O40.3XX0 (primary diagnosis) Repeat US next visit - URINE OB DIP B/O 2. Insulin controlled gestational diabetes mellitus (GDM) in second trimester ([facility]) - ICD9: 648.83, ICD10: O24.414 Managed by endo - URINE OB DIP B/O 3. Rh negative state in antepartum period ([facility]) - ICD9: 646.83, ICD10: O26.899, Z67.91 S/p rhogam - URINE OB DIP B/O 4. Supervision of high risk in second trimester ([facility]) - ICD9: V23.9, ICD10: O09.92 - URINE OB DIP B/O 5. Anemia, unspecified type - ICD9: 285.9, ICD10: D64.9 Rpeat Hgb in 2-4 weeks - URINE OB DIP B/O 6. 30 weeks gestation of ([facility]) - ICD9: V22.2, ICD10: Z3A.30 - URINE OB DIP B/O Inna Garcia MD documented in this encounter [facility] 08-29-2024 Instructions Maritza Schneider MA - 08/29/2024 8:02 AM EDT SEQUENTIAL SCREENINGS The [facility] offers sequential screenings for women who are [...] It will require an appointment with our bottle house quality control technician. This is not an ultrasound performed [...] the above symptoms, contact our office at [phone] and ask to speak with a nurse. After hours, you can call doctors registry at [phone] OR call [facility] at [phone] and ask to have the doctor educational psychology professor paged. If you consider this an emergency, dial 9-1-9 or go to your nearest emergency department. NEED HELP? Are you dealing with a violent or abusive relationship? Are you a victim of rape or sexual assult? Call [facility] ([place]) 24 hour Crisis Hotline: 830.948.2799 or 763-366-4981. MANUAL Your Guide to a Healthy manual is now on-line. Visit [email or web address] to download your free copy documented in this encounter [facility] 08-15-2024 Telephone encounter Note 3rd risk assessment form submitted 08/15/24 Arabella Sanz RN [facility] 08-15-2024 Miscellaneous Notes 3rd risk assessment form submitted 08/15/24 Arabella Sanz RN documented in this encounter [facility] 08-14-2024 Note Indication Evaluation of growth Gestational diabetes mellitus before 24 weeks Impression - Single, live, intrauterine . - presentation is cephalic. - The biometry is consistent with the assigned gestational dating. - The EFW is 1238 g, at the 51%. AC is at the 79%. - The amniotic fluid volume is mild polyhydramnios with an MVP of 7.9 cm and an JOSY of 27 cm. - The placenta is posterior, fundal. - No malformations visualized on a limited survey as detailed below. Recommendations Growth in four weeks Maternal Assessment Height 160 cm Height (ft) 5 ft Height (in) 3 in Physical Exam Initial weight (lb) 147 lb Initial BMI 26.05 kg/m Maternal assessment other: 5 Para 3 REMOTE READ Method Transabdominal ultrasound examination Cash . Number of fetuses: 1 Dating LMP on: 01/30/2024 Cycle: LMP date not known GA by LMP 28 w + 1 d BELEM by LMP: 11/05/2024 GA by prior assessment 28 w + 1 d BELEM by prior assessment: 11/05/2024 Ultrasound examination on: 08/14/2024 GA by U/S based upon: AC, BPD, Femur, HC GA by U/S 28 w + 4 d BELEM by U/S: 11/02/2024 Assigned: based on stated BELEM, selected on 08/14/2024 Assigned GA 28 w + 1 d Assigned BELEM: 11/05/2024 General Evaluation Cardiac activity present. FHR 138 bpm. movements: present. Presentation: cephalic Placenta: Placental site: posterior, fundal Umbilical cord: Cord vessels: 3 vessel cord Amniotic fluid: Amount of AF: mild polyhydramnios. MVP 7.9 cm. JOSY 27.0 cm. Q1 6.3 cm, Q2 5.8 cm, Q3 6.9 cm, Q4 7.9 cm Growth Overview Exam date GA BPD (mm) HC (mm) AC (mm) FL (mm) HL (mm) EFW (g) 06/23/2024 20w 5d 49.5 60% 189.7 66% 165.8 73% 32.2 38% 32.2 51% 389 57% 08/14/2024 28w 1d 71.8 61% 270.4 69% 251.9 79% 49.3 16% 1238 51% Biometry Standard BPD 71.8 mm 28w 6d 61% Hadlock OFD 95.7 mm 28w 2d 67% Nicolaides HC 270.4 mm 29w 0d 69% Kristin AC 251.9 mm 29w 3d 79% Hadlock Femur 49.3 mm 26w 5d 16% Kristin EFW 1,238 g 28w 1d 51% Hadlock EFW (lb) 2 lb EFW (oz) 12 oz EFW by: Hadlock (HC-AC-FL) Extended Cardroom Hand 1.8 mm Extremities / Bony Struc FL / HC 0.18 Other Structures FHR 138 bpm Anatomy Lateral ventricles: normal Cavum septi pellucidi: normal Cerebellum: normal Cisterna magna: normal 4-chamber view: normal RVOT view: normal LVOT view: normal 3-vessel view: normal Heart / Thorax Situs: situs solitus (normal) Diaphragm: normal Stomach: normal Kidneys: normal Bladder: normal sex: male Wants to know sex: yes Performed By: Steve Barraza RDMS, RVT Read By: Kyung Tom M.D. [facility] 08-14-2024 Note HNO ID: [id number] Author: POLO SOTO RN Service: ? Author Type: Registered Nurse Type: Progress Notes Filed: 08/14/2024 14:39 Note Text: Seda De León 29 year old is here for her injection of Rhophylac. Seda De León ABO/RH(D) (no units) Date Value 05/22/2019 A NEGATIVE Antibody Screen (no units) Date Value 06/16/2024 Negative 08/15/2019 POS Antibody Identified (no units) Date Value 04/28/2023 No new Neda Detected 08/15/2019 ANTI-D PRESENT. Seda De León is RH Negative Rhophylac was given without incident. See immunizations for details of immunizations administered today. Provider Dr. Edwards was present in office at time of injection Seda De León was given her Rhophylac pocket card. Polo Soto RN [facility] 08-14-2024 History of Presen t illness Narrative Seda De León 29 year old is here for her injection of Rhophylac. Seda De León ABO/RH(D) (no units) Date Value 05/22/2019 A NEGATIVE Antibody Screen (no units) Date Value 06/16/2024 Negative 08/15/2019 POS Antibody Identified (no units) Date Value 04/28/2023 No new Neda Detected 08/15/2019 ANTI-D PRESENT. Seda De León is RH Negative Rhophylac was given without incident. See immunizations for details of immunizations administered today. Provider Dr. Edwards was present in office at time of injection Seda eD León was given her Rhophylac pocket card. Polo Soto RN Patient identified by name and date of . Seda De León presents today for a vaccination of Tdap. Patient denies an allergy to latex: yes Patient denies a severe (life-threatening) allergy to a previous dose of Tdap, DTP, DTaP, DT or Td vaccine. Yes Patient denies history of epilepsy or neurological problems: Yes Patient is afebrile and denies being moderately or severely ill: Yes Patient denies history of Guillain-[place] Syndrome (a severe paralytic illness): Yes Tdap Adacel injection was given without incident. See immunizations for details of immunizations administered today. VIS sheet provided: Yes Provider Dr. Edwards was present in office at time of injection. Polo Soto RN documented in this encounter [facility] 08-14-2024 Note HNO ID: [id number] Author: POLO SOTO RN Service: ? Author Type: Registered Nurse Type: Progress Notes Filed: 08/14/2024 14:39 Note Text: Patient identified by name and date of . Seda De León presents today for a vaccination of Tdap. Patient denies an allergy to latex: yes Patient denies a severe (life-threatening) allergy to a previous dose of Tdap, DTP, DTaP, DT or Td vaccine. Yes Patient denies history of epilepsy or neurological problems: Yes Patient is afebrile and denies being moderately or severely ill: Yes Patient denies history of Guillain-Middleburg Syndrome (a severe paralytic illness): Yes Tdap Adacel injection was given without incident. See immunizations for details of immunizations administered today. VIS sheet provided: Yes Provider Dr. Edwards was present in office at time of injection. Polo Soto RN [facility] 08-14-2024 Progress note Formatting of t his note might be different from the original. SW- Pt doing well. No pain, vb, lof. Good FM PE: Gen- NAD, well appearing Abd- Soft, gravid, NT See flowsheet A/p 28 wk gestation - Type 2 DM: Following with endo - Tdap and Rhogam today - Declines plan sheet - LARC signed - NST's ordered - Title 19 signed. Desires sterilization after discussion of r/b/a - RTO 2 wks Sandra Edwards DO [facility] 08-14-2024 Miscellaneous Notes SW- Pt doing well. No pain, vb, lof. Good FM PE: Gen- NAD, well appearing Abd- Soft, gravid, NT See flowsheet A/p 28 wk gestation - Type 2 DM: Following with endo - Tdap and Rhogam today - Declines plan sheet - LARC signed - NST's ordered - Title 19 signed. Desires sterilization after discussion of r/b/a - RTO 2 wks Sandra Edwards DO documented in this encounter [facility] 08-14-2024 Instructions Donna Miguel MA - 08/14/2024 1:27 PM EDT SEQUENTIAL SCREENINGS The [facility] offers sequential screenings for women who are [...] It will require an appointment with our bottle house quality control technician. This is not an ultrasound performed [...] the above symptoms, contact our office at [phone] and ask to speak with a nurse. After hours, you can call doctors registry at [phone] OR call [facility] at [phone] and ask to have the doctor educational psychology professor paged. If you consider this an emergency, dial [phone] or go to your nearest emergency department. NEED HELP? Are you dealing with a violent or abusive relationship? Are you a victim of rape or sexual assult? Call [facility] ([place]) 24 hour Crisis Hotline: 192.328.4937 or 860-282-7955. MANUAL Your Guide to a Healthy manual is now on-line. Visit [email or web address] to download your free copy documented in this encounter [facility] 07-25-2024 Note HNO ID: [id number] Author: EDDI SNEED MD Service: ? Author Type: Physician Type: Progress Notes Filed: 08/02/2024 13:09 Note Text: [facility] Initial Clinic Visit Note Referred by: Inna Garcia MD (OBGYN) Chief complaint: Gestational Diabetes Mellitus My final recommendations will be communicated back to the requesting physician by way of shared medical record or letter via [place] mail. History of Present Illness: Seda De León is a 29 year old female patient presenting as a new patient to vt for evaluation of Gestational diabetes mellitus She is A1, currently 26 weeks of gestation. Last delivery was in 06/2023. PMH: significant for gastric bypass in 2019, iron deficiency anemia for which she is undergoing infusions along with oral iron supplements. She had 2 pregnancies before gastric bypass -Initially diagnosed with GDM during second and third (so prior two pregnancies) - Blood sugars typically normalize within 1-2 days . . - Weight gain of 10-15 lbs this ; no significant weight changes in previous pregnancies. - no new symptoms of hyperglycemia - she reports no concerns today other than some lows No known diabetic complications as expected from GDM Other comorbidities-- No -Family history of diabetes mellitus - No Personal history of pancreatitis-- No History of alcohol consumption--No Family history of thyroid cancer-- No Personal history of Urinary tract infections -- None is the recent past - Insulin therapy initiated one week ago with Lispro and Lantus due to blood sugars >200 mg/dL. . Diabetes Medications -Current regimen: insulin NPH 32 units before breakfast, 16 units before dinner started on initial visit with me, switched from basal-bolus (TID) regimen which resulted in multiple hypoglycemic episodes which are now better -Misses doses: None -Adverse medication effects: hypoglycemia -Rotating injection sites: yes -Previously Used DM Meds: She was on insulin during previous , treated by OBGYN . Blood sugars -Self monitoring of blood sugar via CGM Summary of Personal CGM Findings: Type of CGM: Dex3d [employer] G7 1) CGM recording is adequate for interpretation. Worn 94% of time. 2) Average glucose is 81 mg/dL. BG range/St. Dev: 24.8% 3) 73% time in range 70-180 mg/dL, however ranges are different and hence not significantly concerning on most blood sugar readings 4) patterns: shows random lows (below recommended threshold for ) to lowest 56 mg/dl, during the day, and few overnight . Hypoglycemia -Hypoglycemic episodes: less frequent than before, but still has some overnight lows -Frequency and timing of hypoglycemia: lowest 56 mg/dl -Hypoglycemia awareness: yes, diaphoresis and tremors. . Lifestyle -Exercise: low to moderate -Diet: - Adheres to a low-carb, high-protein diet, consuming 5 small meals daily since gastric bypass . ROS: SYSTEMIC: Denies fatigue, malaise, energy, Weight has been stable, heat/cold intolerance, polydipsia EYES: Denies blurring of vision, diplopia, pain/discomfort, excessive tearing, swelling of eye lids, bulging, redness, dryness, NECK: Denies goiter, lump, pain/discomfort, dysphagia, hoarseness, sore thorat RESPIRATORY: Denies dyspnea at rest/with exertion, orthopnea cough, pleuritic chest pain, snoring, apnea episodes CARDIOVASCULAR: Chest pain, palpitations, irregular heart beats GASTRO-INTESTINAL:Denies Nausea, vomiting, abdominal pain, hyperdefecation, rectal bleeding NEUROLOGICAL: Denies dizziness, lightheadedness, weakness, cramping, numbness/tingling of extremities MUSCULOSKELETAL: Denies joint pain, stiffness, swelling, cramping or weakness. GENITOURINARY: Denies polyuria, recurrent UTI/yeast infections SKIN: Denies dryness, brittle nails, hair loss, alopecia, excessive sweating, flushing, darkening of skin PSYCHIATRIC: Denies anxiety, depression, panic attacks, irritability, mood swings Past Medical History PAST MEDICAL HISTORY Diagnosis Date Anemia complicating , first trimester ([facility]) 03/24/2019 Anemia during in second trimester ([facility]) 05/19/2023 Asthma as a child Childhood asthma without complication ([facility]) 01/03/2018 01/03/2018 Not currently using Albuterol inhaler. Continue to monitor. No Hemabate. SW Concussion 2010 COVID-19 virus infection 03/26/202103/2021 Diet controlled gestational diabetes mellitus (GDM) in third trimester ([facility]) 08/16/2019 Gestational hypertension ([facility]) History of gestational hypertension 03/16/2019 Hx of gestational diabetes mellitus, not currently 05/16/2020 Insulin controlled gestational diabetes mellitus (GDM) in third trimester ([facility]) 05/19/2023 Maternal iron deficiency anemia complicating , third trimester ([facility]) 05/04/2023 Mononucleosis NEGATIVE MEDICAL HISTORY normal color vision PMH - P (more content not included)... [facility] 07-25-2024 Note HNO ID: [id number] Author: O'DELL, JOSE, RN Service: ? Author Type: Registered Nurse Type: Progress Notes Filed: 08/02/2024 13:11 Note Text: [facility] 07-24-2024 Progress note Formatting of t his note might be different from the original. DM-Pt doing well. Denies vaginal Bleeding, Leaking fluid, or regular Contractions. Pt reports good movement Physical Exam: Gen: female in no apparent distress Abd: soft, Gravid. Non tender to palpation. See flow sheet @ 08/04 [facility] Assessment & Plan Supervision of high risk in second trimester ([facility]) Orders: URINE OB DIP B/O SYPHILIS TREPONEMAL W/REFLEX; Future ANEMIA REFLEX PANEL; Future TYPE + SCREEN ; Future OBSTETRIC ULTRASOUND WHI; Standing Insulin controlled gestational diabetes mellitus (GDM) in second trimester ([facility]) Sees endocrinology tomorrow- will need insulin adjusted- runs 70s before meals but can spike to 200s after. Last time endocrinology removed her short acting insulin before meals- b/c dropping too low. - pt reports running low during night - reviewed poor sleep and impact on BS levels - Reviewed nutrition and decreasing carbs- increasing protein. - Growth us starting 28 weeks - NSTs starting 32 weeks - BPPs?? May need twice weekly testing if still not well controlled Orders: URINE OB DIP B/O Insulin Douglas, Disposable, (PEN NEEDLE) 32 gauge x 5/32; 1 each as needed. OBSTETRIC ULTRASOUND WHI; Standing Anemia, unspecified type Continue IV iron Orders: URINE OB DIP B/O 25 weeks gestation of ([facility]) Orders: URINE OB DIP B/O SYPHILIS TREPONEMAL W/REFLEX; Future ANEMIA REFLEX PANEL; Future TYPE + SCREEN ; Future OBSTETRIC ULTRASOUND WHI; Standing Jimmie Lopez MD [facility] 07-24-2024 Miscellaneous Notes DM-Pt doing well. Denies vaginal Bleeding, Leaking fluid, or regular Contractions. Pt reports good movement Physical Exam: Gen: female in no apparent distress Abd: soft, Gravid. Non tender to palpation. See flow sheet @ 08/04 [facility] Assessment & Plan Supervision of high risk in second trimester ([facility]) Orders: URINE OB DIP B/O SYPHILIS TREPONEMAL W/REFLEX; Future ANEMIA REFLEX PANEL; Future TYPE + SCREEN ; Future OBSTETRIC ULTRASOUND WHI; Standing Insulin controlled gestational diabetes mellitus (GDM) in second trimester ([facility]) Sees endocrinology tomorrow- will need insulin adjusted- runs 70s before meals but can spike to 200s after. Last time endocrinology removed her short acting insulin before meals- b/c dropping too low. - pt reports running low during night - reviewed poor sleep and impact on BS levels - Reviewed nutrition and decreasing carbs- increasing protein. - Growth us starting 28 weeks - NSTs starting 32 weeks - BPPs?? May need twice weekly testing if still not well controlled Orders: URINE OB DIP B/O Insulin Douglas, Disposable, (PEN NEEDLE) 32 gauge x 5/32; 1 each as needed. OBSTETRIC ULTRASOUND WHI; Standing Anemia, unspecified type Continue IV iron Orders: URINE OB DIP B/O 25 weeks gestation of ([facility]) Orders: URINE OB DIP B/O SYPHILIS TREPONEMAL W/REFLEX; Future ANEMIA REFLEX PANEL; Future TYPE + SCREEN ; Future OBSTETRIC ULTRASOUND WHI; Standing Jimmie Lopez MD documented in this encounter [facility] 07-24-2024 Instructions Erika Calderón MA - 07/24/2024 7:55 AM EDT SEQUENTIAL SCREENINGS The [facility] offers sequential screenings for women who are [...] It will require an appointment with our bottle house quality control technician. This is not an ultrasound performed [...] the above symptoms, contact our office at [phone] and ask to speak with a nurse. After hours, you can call doctors registry at [phone] OR call [facility] at [phone] and ask to have the doctor educational psychology professor paged. If you consider this an emergency, dial --1 or go to your nearest emergency department. NEED HELP? Are you dealing with a violent or abusive relationship? Are you a victim of rape or sexual assult? Call [facility] ([place]) 24 hour Crisis Hotline: 134.613.1951 or 918-612-9252. MANUAL Your Guide to a Healthy manual is now on-line. Visit [email or web address] to download your free copy documented in this encounter [facility] 06-27-2024 Telephone encounter Note Phoned patient as requested. Patient accepts dosage change. Patient is double checking readings with glucometer. Inna Dowell MA [facility] 06-27-2024 Miscellaneous Notes Phoned patient as requested. Patient accepts dosage change. Patient is double checking readings with glucometer. Inna Dowell MA She can lower the dose to 28 units in am and 14 units in pm. But most of her labs are within ranges. Please advise her to quit following what the sensor for a low, and rather let us know of blood sugars less than 60 mg/dl before next visit in 3 weeks Images from the original note were not included. Patient calling stating she is still having issues with lows. She has been running between 60s & 70s and even after she eats she doesn't even peak to 150. Verified that she is double checking with finger sticks and taking insulin 32 units before breakfast and 16 units before dinner. She is having symptoms of shakiness, lightheadedness and sweating. Kimi Jason LPN documented in this encounter [facility] 2024 Telephone encounter Note She can lower the dose to 28 units in am and 14 units in pm. But most of her labs are within ranges. Please advise her to quit following what the sensor for a low, and rather let us know of blood sugars less than 60 mg/dl before next visit in [address] [facility] 2024 Telephone encounter Note 2nd risk assessment form submitted 06/26/24 Arabella Sanz RN [facility] 2024 Miscellaneous Notes 2nd risk assessment form submitted 06/26/24 Arabella Sanz RN documented in this encounter [facility] 2024 Telephone encounter Note Images from the original note were not included. [facility] 2024 Telephone encounter Note Patient calling stating she is still having issues with lows. She has been running between 60s & 70s and even after she eats she doesn't even peak to 150. Verified that she is double checking with finger sticks and taking insulin 32 units before breakfast and 16 units before dinner. She is having symptoms of shakiness, lightheadedness and sweating. Kimi Jason LPN [facility] 06-23-2024 Telephone encounter Note Images from the original note were not included. insulin NPH human (HUMULIN N NPH INSULIN KWIKPEN) 100 unit/mL has been approved Notified patient through aida Marshall Prior Caseworker Intake Endocrinology & Metabolism [place] [facility] 06-23-2024 Miscellaneous Notes Images from the original note were not included. insulin NPH human (HUMULIN N NPH INSULIN KWIKPEN) 100 unit/mL has been approved Notified patient through aida Kimball Caseworker Intake Endocrinology & Metabolism [place] Images from the original note were not included. Initiated PA for insulin NPH human (HUMULIN N NPH INSULIN KWIKPEN) 100 unit/mL through Covermymeds Questions Completed/attached notes Waiting for determination Cade Kimball Caseworker Intake Endocrinology [facility] Metabolism [place] documented in this encounter [facility] 06-23-2024 Telephone encounter Note Images from the original note were not included. Cade Kimball Caseworker Intake Endocrinology & Metabolism [place] [facility] 06-23-2024 Miscellaneous Notes Images from the original note were not included. Cade Marshall Prior Caseworker Intake Endocrinology & Metabolism [place] Prior Auth requested for Humulin kwikpen 100u/ml [place] [id number] Inna Dowell MA documented in this encounter [facility] 06-23-2024 Telephone encounter Note Images from the original note were not included. Initiated PA for insulin NPH human (HUMULIN N NPH INSULIN KWIKPEN) 100 unit/mL through Covermymeds Questions Completed/attached notes Waiting for determination Cade Marshall Prior Caseworker Intake Endocrinology & Metabolism [place] [facility] 06-23-2024 Progress note Formatting of t his note might be different from the original. S: Seda De León is a 28 year old female who presents at 11/05/2024, by Last Menstrual Period for a routine visit. Denies headache, visual changes, chest pain, shortness of breath, vaginal bleeding, leakage of fluid, or dysuria. Feeling well, no complaints. O: See flow sheet Gen: No apparent distress Saw endocrine on Wed and insulin changed. Does feel better. Did not have low BG overnight last night. Getting weekly Iron infusion. Anantomy completed today ASSESSMENT/PLAN: 1. 20 weeks gestation of ([facility]) - ICD9: V22.2, ICD10: Z3A.20 (primary diagnosis) 2. Insulin controlled gestational diabetes mellitus (GDM) in second trimester ([facility]) - ICD9: 648.83, ICD10: O24.414 New insulin dosage per endocrine 3. Anemia, unspecified type - ICD9: 285.9, ICD10: D64.9 IV iron 4. Rh negative state in antepartum period ([facility]) - ICD9: 646.83, ICD10: O26.899, Z67.91 Rhogam at 28 5. Encounter for supervision of normal in multigravida ([facility]) - ICD9: V22.1, ICD10: Z34.80 Inna Garcia MD [facility] 06-23-2024 Miscellaneous Notes S: Seda De León is a 28 year old female who presents at 11/05/2024, by Last Menstrual Period for a routine visit. Denies headache, visual changes, chest pain, shortness of breath, vaginal bleeding, leakage of fluid, or dysuria. Feeling well, no complaints. O: See flow sheet Gen: No apparent distress Saw endocrine on Wed and insulin changed. Does feel better. Did not have low BG overnight last night. Getting weekly Iron infusion. Anantomy completed today ASSESSMENT/PLAN: 1. 20 weeks gestation of ([facility]) - ICD9: V22.2, ICD10: Z3A.20 (primary diagnosis) 2. Insulin controlled gestational diabetes mellitus (GDM) in second trimester ([facility]) - ICD9: 648.83, ICD10: O24.414 New insulin dosage per endocrine 3. Anemia, unspecified type - ICD9: 285.9, ICD10: D64.9 IV iron 4. Rh negative state in antepartum period ([facility]) - ICD9: 646.83, ICD10: O26.899, Z67.91 Rhogam at 28 5. Encounter for supervision of normal in multigravida ([facility]) - ICD9: V22.1, ICD10: Z34.80 Inna Garcia MD documented in this encounter [facility] 06-23-2024 Instructions Maritza Schneider MA - 06/23/2024 8:12 AM EDT SEQUENTIAL SCREENINGS The [facility] offers sequential screenings for women who are [...] It will require an appointment with our bottle house quality control technician. This is not an ultrasound performed [...] the above symptoms, contact our office at [phone] and ask to speak with a nurse. After hours, you can call doctors registry at [phone] OR call [facility] at [phone] and ask to have the doctor educational psychology professor paged. If you consider this an emergency, dial 91- or go to your nearest emergency department. NEED HELP? Are you dealing with a violent or abusive relationship? Are you a victim of rape or sexual assult? Call [facility] ([place]) 24 hour Crisis Hotline: 995.556.1658 or 957-256-6524. MANUAL Your Guide to a Healthy manual is now on-line. Visit [email or web address] to download your free copy documented in this encounter [facility] 06-22-2024 Telephone encounter Note Prior Auth requested for Humulin kwikpen 100u/ml [place] [id number] Inna Dowell MA [facility] 06-22-2024 Instructions Eddi Sneed MD - 06/22/2024 3:20 PM EDT Please administer 32 units of NPH before breakfast and 16 units before dinner Please start using Primavista 3+, scripts sent documented in this encounter [facility] 06-22-2024 Note HNO ID: [id number] Author: EDDI SNEED MD Service: ? Author Type: Physician Type: Progress Notes Filed: 06/25/2024 18:22 Note Text: [facility] Initial Clinic Visit Note Referred by: Inna Garcia MD (OBGYN) Chief complaint: Gestational Diabetes Mellitus My final recommendations will be communicated back to the requesting physician by way of shared medical record or letter via [place] mail. History of Present Illness: Seda De León is a 28 year old female patient presenting as a new patient to me for evaluation of Gestational diabetes mellitus She is A1, currently 20 weeks of gestation. Last delivery was in 06/2023. PMH: significant for gastric bypass in 2019, iron deficiency anemia for which she is undergoing infusions along with oral iron supplements. She had 2 pregnancies before gastric bypass -Initially diagnosed with GDM during second and third (so prior two pregnancies) - Blood sugars typically normalize within 1-2 days . . - Weight gain of 10 lbs this ; no significant weight changes in previous pregnancies. - Has symptoms of increased urination, thirst and fatigue which she believes is due to No known diabetic complications as expected from GDM Other comorbidities-- No -Family history of diabetes mellitus - No Personal history of pancreatitis-- No History of alcohol consumption--No Family history of thyroid cancer-- No Personal history of Urinary tract infections -- None is the recent past - Insulin therapy initiated one week ago with Lispro and Lantus due to blood sugars >200 mg/dL. . Diabetes Medications -Current regimen: insulin lantus 15 units BID, Humalog kwikpen 10 units TID - Insulin therapy initiated one week ago with Lispro and Lantus due to blood sugars >200 mg/dL. -Misses doses: None -Adverse medication effects: hypoglycemia as mentioned below -Rotating injection sites: yes -Previously Used DM Meds: She was on insulin during previous , treated by [facility] . Blood sugars -Self monitoring of blood sugar via fingerstick: x daily - Uses a glucometer and sensor for blood sugar monitoring; noted discrepancies between sensor and glucometer readings, and hence stopped using sensor. No available BG readings today . Hypoglycemia -Hypoglycemic episodes: yes, since starting insulin -Frequency and timing of hypoglycemia: Experiencing frequent hypoglycemic episodes, with blood sugars dropping to 40s-50s mg/dL, particularly 2 hours postprandial and at night. -Hypoglycemia awareness: yes, diaphoresis and tremors. She also reports she is not sure with what meals she needs to take lispro as she eats multiple small meals a day . Lifestyle -Exercise: -Diet: - Adheres to a low-carb, high-protein diet, consuming 5 small meals daily since gastric bypass . ROS: SYSTEMIC: Denies fatigue, malaise, energy, Weight has been stable, heat/cold intolerance, polydipsia EYES: Denies blurring of vision, diplopia, pain/discomfort, excessive tearing, swelling of eye lids, bulging, redness, dryness, NECK: Denies goiter, lump, pain/discomfort, dysphagia, hoarseness, sore thorat RESPIRATORY: Denies dyspnea at rest/with exertion, orthopnea cough, pleuritic chest pain, snoring, apnea episodes CARDIOVASCULAR: Chest pain, palpitations, irregular heart beats GASTRO-INTESTINAL:Denies Nausea, vomiting, abdominal pain, hyperdefecation, rectal bleeding NEUROLOGICAL: Denies dizziness, lightheadedness, weakness, cramping, numbness/tingling of extremities MUSCULOSKELETAL: Denies joint pain, stiffness, swelling, cramping or weakness. GENITOURINARY: Denies polyuria, recurrent UTI/yeast infections SKIN: Denies dryness, brittle nails, hair loss, alopecia, excessive sweating, flushing, darkening of skin PSYCHIATRIC: Denies anxiety, depression, panic attacks, irritability, mood swings Past Medical History PAST MEDICAL HISTORY Diagnosis Date Anemia complicating , first trimester ([facility]) 03/24/2019 Anemia during in second trimester ([facility]) 05/19/2023 Asthma as a child Childhood asthma without complication ([facility]) 01/03/2018 01/03/2018 Not currently using Albuterol inhaler. Continue to monitor. No Hemabate. SW Concussion 2009 COVID-19 virus infection 03/26/202103/2021 Diet controlled gestational diabetes mellitus (GDM) in third trimester ([facility]) 08/16/2019 Gestational hypertension (HCC) History of gestational hypertension 03/16/2019 Hx of gestational diabetes mellitus, not currently 05/16/2020 Insulin controlled gestational diabetes mellitus (GDM) in third trimester ([facility]) 05/19/2023 Maternal iron deficiency anemia complicating , third trimester ([facility]) 05/04/2023 Mononucleosis NEGATIVE MEDICAL HISTORY normal color vision PMH - PAST MEDICAL HISTORY OF slip disc Polyhydramnios in third trimester ([facility]) 07/05/2018 06/03/23 (more content not included)... [facility] 06-22-2024 History of Presen t illness Narrative [facility] Initial Clinic Visit Note Referred by: Inna Garcia MD (OBGYN) Chief complaint: Gestational Diabetes Mellitus My final recommendations will be communicated back to the requesting physician by way of shared medical record or letter via [place] mail. History of Present Illness: Seda De León is a 28 year old female patient presenting as a new patient to me for evaluation of Gestational diabetes mellitus She is A1, currently 20 weeks of gestation. Last delivery was in 06/2023. PMH: significant for gastric bypass in 2019, iron deficiency anemia for which she is undergoing infusions along with oral iron supplements. She had 2 pregnancies before gastric bypass -Initially diagnosed with GDM during second and third (so prior two pregnancies) - Blood sugars typically normalize within 1-2 days . . - Weight gain of 10 lbs this ; no significant weight changes in previous pregnancies. - Has symptoms of increased urination, thirst and fatigue which she believes is due to No known diabetic complications as expected from GDM Other comorbidities-- No -Family history of diabetes mellitus - No Personal history of pancreatitis-- No History of alcohol consumption--No Family history of thyroid cancer-- No Personal history of Urinary tract infections -- None is the recent past - Insulin therapy initiated one week ago with Lispro and Lantus due to blood sugars >200 mg/dL. . Diabetes Medications -Current regimen: insulin lantus 15 units BID, Humalog kwikpen 10 units TID - Insulin therapy initiated one week ago with Lispro and Lantus due to blood sugars >200 mg/dL. -Misses doses: None -Adverse medication effects: hypoglycemia as mentioned below -Rotating injection sites: yes -Previously Used DM Meds: She was on insulin during previous , treated by [facility] . Blood sugars -Self monitoring of blood sugar via fingerstick: x daily - Uses a glucometer and sensor for blood sugar monitoring; noted discrepancies between sensor and glucometer readings, and hence stopped using sensor. No available BG readings today . Hypoglycemia -Hypoglycemic episodes: yes, since starting insulin -Frequency and timing of hypoglycemia: Experiencing frequent hypoglycemic episodes, with blood sugars dropping to 40s-50s mg/dL, particularly 2 hours postprandial and at night. -Hypoglycemia awareness: yes, diaphoresis and tremors. She also reports she is not sure with what meals she needs to take lispro as she eats multiple small meals a day . Lifestyle -Exercise: -Diet: - Adheres to a low-carb, high-protein diet, consuming 5 small meals daily since gastric bypass . ROS: SYSTEMIC: Denies fatigue, malaise, energy, Weight has been stable, heat/cold intolerance, polydipsia EYES: Denies blurring of vision, diplopia, pain/discomfort, excessive tearing, swelling of eye lids, bulging, redness, dryness, NECK: Denies goiter, lump, pain/discomfort, dysphagia, hoarseness, sore thorat RESPIRATORY: Denies dyspnea at rest/with exertion, orthopnea cough, pleuritic chest pain, snoring, apnea episodes CARDIOVASCULAR: Chest pain, palpitations, irregular heart beats GASTRO-INTESTINAL:Denies Nausea, vomiting, abdominal pain, hyperdefecation, rectal bleeding NEUROLOGICAL: Denies dizziness, lightheadedness, weakness, cramping, numbness/tingling of extremities MUSCULOSKELETAL: Denies joint pain, stiffness, swelling, cramping or weakness. GENITOURINARY: Denies polyuria, recurrent UTI/yeast infections SKIN: Denies dryness, brittle nails, hair loss, alopecia, excessive sweating, flushing, darkening of skin PSYCHIATRIC: Denies anxiety, depression, panic attacks, irritability, mood swings Past Medical History PAST MEDICAL HISTORY Diagnosis Date Anemia complicating , first trimester ([facility]) 03/24/2019 Anemia during in second trimester ([facility]) 05/19/2023 Asthma as a child Childhood asthma without complication ([facility]) 01/03/2018 01/03/2018 Not currently using Albuterol inhaler. Continue to monitor. No Hemabate. SW Concussion 2010 COVID-19 virus infection 03/26/202103/2021 Diet controlled gestational diabetes mellitus (GDM) in third trimester ([facility]) 08/16/2019 Gestational hypertension (HCC) History of gestational hypertension 03/16/2019 Hx of gestational diabetes mellitus, not currently 05/16/2020 Insulin controlled gestational diabetes mellitus (GDM) in third trimester ([facility]) 05/19/2023 Maternal iron deficiency anemia complicating , third trimester ([facility]) 05/04/2023 Mononucleosis NEGATIVE MEDICAL HISTORY normal color vision PMH - PAST MEDICAL HISTORY OF slip disc Polyhydramnios in third trimester ([facility]) 07/05/2018 06/03/23 Mild noted on 32 week growth. Continue to plan for testing. Cristy Matthew APRN.[employer]ENDER [employer]ER July 05, 2018 D/w her risks. NSTs weekly. Kick counts. PTL precuations. F/u weekly. Angie Mora MD Spondylolysis of lumbar region 06/25/2011 Past Surgical History PAST SURGICAL HISTORY Procedure Laterality Date GASTRIC BYPASS HX 08/20/2022 LAPAROSCOPY SURG CHOLECYSTECTOMY 08/30/2018 Cholecystectomy, lap Family History FAMILY HISTORY Problem Relation Age of Onset No Known Problems Mother No Known Problems Father No Known Problems Sister No Known Problems Sister No Known Problems Maternal Grandmother No Known Problems Maternal Grandfather Hypertension Paternal Grandmother Heart Paternal Grandfather other (Bladder reflux) Daughter Seizures Daughter Heart Paternal great-grandfather Anesthesia Problems No Family History Social History Social History Tobacco Use Smoking status: Never Smokeless tobacco: Never Vaping Use Vaping status: Never Used Substance Use Topics Alcohol use: No Drug use: No Allergies ALLERGIES Allergen Reactions Cefdinir Vomiting Morphine Hives, Shortness of Breath given medication at [facility] ER and reacted Peanuts Swelling redness Current Medications Current Outpatient Medications Medication Sig Dispense Refill insulin glargine (LANTUS SOLOSTAR U-100 INSULIN) 100 unit/mL (3 mL) Inject 15 Units subcutaneously in the morning and before bedtime 3 mL 0 flash glucose sensor (FREESTYLE DELORIS 14 DAY SENSOR) kit Apply new sensor every 14 days to upper arm. Use to check blood sugar at least 4 times daily. 6 kit 4 blood sugar diagnostic (FREESTYLE PRECISION CARA STRIPS) test strip Use to check blood sugar once daily as needed. 20 strip 1 insulin lispro (HUMALOG KWIKPEN INSULIN) 100 unit/mL Inject 8 Units subcutaneously three times a day before meals. 1 each 0 Insulin Douglas, Disposable, (PEN NEEDLE) 32 gauge x 5/32 1 each as needed. 200 each 0 aspirin, enteric coated (ECOTRIN LOW STRENGTH) 81 mg EC tablet Take 1 tablet by mouth once daily. 90 tablet 3 ondansetron orally disintegrating (ZOFRAN ODT) 4 mg disintegrating tablet Take 1 tablet by mouth every 8 hours as needed. 20 tablet 1 ferrous sulfate 325 mg (65 mg iron) tablet Take 325 mg by mouth once daily. vit/iron fum/folic ac (-FOLIC ACID ORAL) Take by mouth. No current facility-administered medications for this visit. Vitals: 06/22/24 1453 BP Position: Sitting BP Cuff Size: Regular Adult Pulse: 111 Temp: 36.5 C (97.7 F) TempSrc: Temporal Artery SpO2: 98% Weight: 74.9 kg (165 lb 3.2 oz) Physical Exam GENERAL: Well nourished, obese, well hydrated, in no distress and oriented x 3 EYES: no thyroid eye signs, EOMI NECK: , no tenderness and adenopathy THYROID: Non-tender to palpable, no evidence of goiter, no nodules palpable LUNGS: Unlabored on room air HEART: regular rate and rhythm GI: gravid abdomen Injections sites without lipodystrophy EXTREMITIES: no edema NEURO: normal strength, no tremor, monofilament testing not done OTHER: Acanthosis None Labs TSH Date Value Ref Range Status 06/02/2022 0.668 0.270 - 4.200 mIU/L Final Comment: If the patient is , TSH reference range varies by gestational period: First Trimester (weeks 9-12): 0.180-2.990 mIU/L Second Trimester: 0.110-3.980 mIU/L Third Trimester: 0.480-4.710 mIU/L Marquez Lagos et al. A Practical Approach for the Verifications and Determination of Site- and Trimester-Specific Reference Intervals for Thyroid Function tests in . Thyroid, 2019:29:3:412-420. Yobani Ellington et al. 2017 Guidelines of the [place] Thyroid Association for the Diagnosis and Management of Thyroid Disease during and the . Thyroid, 2017:27:3:315-389. 01/10/2021 0.792 0.270 - 4.200 uU/mL Final Comment: If the patient is , TSH reference range varies by gestational period: First Trimester (weeks 9-12): 0.180-2.990 mcIU/mL Second Trimester: 0.110-3.980 mcIU/mL Third Trimester: 0.480-4.710 mcIU/mL Marquez Lagos et al. A Practical Approach for the Verifications and Determination of Site- and Trimester-Specific Reference Intervals for Thyroid Function tests in . Thyroid, 2019:29:3:412-420. Yobani Ellington et al. 2017 Guidelines of the [place] Thyroid Association for the Diagnosis and Management of Thyroid Disease during and the . Thyroid, 2017:27:3:315-389. 05/16/2020 0.541 0.270 - 4.200 uU/mL Final Comment: If the patient is , TSH reference range varies by gestational period: First Trimester (weeks 9-12): 0.180-2.990 mcIU/mL Second Trimester: 0.110-3.980 mcIU/mL Third Trimester: 0.480-4.710 mcIU/mL Marquez Lagos et al. A Practical Approach for the Verifications and Determination of Site- and Trimester-Specific Reference Intervals for Thyroid Function tests in . Thyroid, 2019:29:3:412-420. Yobani Ellington et al. 2017 Guidelines of the [place] Thyroid Association for the Diagnosis and Management of Thyroid Disease during and the . Thyroid, 2017:27:3:315-389. Free T4 Date Value Ref Range Status 05/16/2020 1.3 0.9 - 1.7 ng/dL Final Hemoglobin A1C Date Value Ref Range Status 06/16/2024 5.3 4.3 - 5.6 % Final Comment: [place] Diabetes Association guidelines indicate that patients with HgbA1c in the range 5.7-6.4% are at increased risk for development of diabetes, and intervention by lifestyle modification may be beneficial. HgbA1c greater or equal to 6.5% is considered diagnostic of diabetes. Cholesterol, Total Date Value Ref Range Status 06/02/2022 127 <200 mg/dL Final Comment: <200 mg/dL, Desirable 200-239 mg/dL, Borderline high >239 mg/dL, High HDL Cholesterol Date Value Ref Range Status 06/02/2022 41 >39 mg/dL Final Comment: 40-59 mg/dL, Acceptable >59 mg/dL, High: Negative risk factor for coronary heart disease <40 mg/dL, Low: Positive risk factor for coronary heart disease LDL Cholesterol Date Value Ref Range Status 06/02/2022 53 <100 mg/dL Final Comment: <100 mg/dL, Optimal 100-129 mg/dL, Near optimal/above optimal 130-159 mg/dL, Borderline high 160-189 mg/dL, High >189 mg/dL, Very high Secondary prevention optimal LDL Cholesterol levels are recommended to be < 70 mg/dL Triglyceride Date Value Ref Range Status 06/02/2022 165 (H) <150 mg/dL Final Comment: <150 mg/dL, Normal 150-199 mg/dL, Borderline high 200-499 mg/dL, High >499 mg/dL, Very high Assessment and Plan Gestational diabetes mellitus: On insulin basal-bolus regimen Currently 21 weeks of gestation Had GDM during previous , requiring insulin, no complications reports -A1c 5.3% in 06/2024, but this is not reliable -eGFR normal, at 135 in 06/2024 - she has seen DE on 06/21/24, has an appt with endocrine dietitian -Current regimen: insulin lantus 15 units BID, Humalog kwikpen 10 units TID -Will change regimen to Insulin NPH due to duration of action and meal timings- start on 32 units before breakfast, 16 units before dinner - advised continuing small frequent meals as is, low carb high protein- will send prescriptions for deloris 3+ -hypoglycemia treatment reviewed, along with BG targets. Reviewed lowering insulin dose by 2 units in the evening if waking up with low sugars or if overnight hypoglycemia noted after this change. - she is also instructed to check finger stick if BG are extreme and appear not consistent with diet and activity, and bring log on next visit -Lifestyle modifications (diet, exercise) have been discussed with the patient - recommended to keep appt with dietitian - labs for cholesterol may not bladder changer, hence will defer, reviewed diet and exercise as above Scripts sent to pharmacy of pt choice: Yes RTC in 4 weeks I have confirmed and edited as necessary, the past medical, surgical, family, and social history as obtained by others. I spent a total of 55 minutes on the date of the service which included preparing to see the patient, [id number] patient care, completing clinical documentation, obtaining and/or reviewing separately obtained history, performing a medically appropriate examination, counseling and educating the patient/family/caregiver, ordering medications, tests, or procedures, independently interpreting results (not separately reported), and communicating results to the patient/family/caregiver. Eddi Sneed MD Endocrinology Associate Staff [facility] Endocrinology and Metabolism [place] [phone] documented in this encounter [facility] 06-21-2024 Note HNO ID: [id number] Author: INNA DOWELL MA Service: ? Author Type: Drop Forger Type: Progress Notes Filed: 06/21/2024 11:23 Note Text: [facility] 06-21-2024 History of Presen t illness Narrative Images from the original note were not included. DIABETES CARE AND EDUCATION VISIT Location: [place] Type of visit: In person individual PATIENT'S MAIN CONCERN TODAY: Low blood sugars and make sure her sensor is connected Support person present for education today: none Cognitive ability: Alert and oriented Motivation to learn: Interested Learning barriers identified by educator: none Method of instruction: written, verbal, and demonstration DIABETES FINDINGS: 3rd GDM - given copy of the Survival Skills and GDM guide Monitoring: downloaded and linked to our Endo account Meal Planning: briefly reviewed Medications: Reviewed use of the insulin pens Problem Solving: Discussed hypoglycemia and hyperglycemia - discussed follow up with her physician for dosage adjustments if having any sugars less than 60 mg/dL in Physical Activity: benefits of physical activity for her body's use of insulin/sugar HANDOUTS: Healthy You: Survival Skills and Healthy You: Diabetes and LEARNING RESPONSE: Taking medications: Demonstrated understanding/competency today or at previous visit Monitoring glucose: Demonstrated understanding/competency today or at previous visit Acute complications: Demonstrated understanding/competency today or at previous visit POSSIBLE FUTURE TOPICS: 1. DIABETES CARE AND EDUCATION PLAN: Individual follow-up, GDM dietary appointment scheduled for RD Time Spent (Minutes): 25 minutes This visit note will be communicated to the healthcare provider via access to shared medical record. SIGNATURE: Samantha Elias RN PATIENT NAME: Seda De León DATE: June 21, 2024 TIME: 10:59 AM documented in this encounter [facility] 06-21-2024 Telephone encounter Note Thank you. Orders signed [facility] 06-21-2024 Note HNO ID: [id number] Author: SAMANTHA ELIAS RN Service: ? Author Type: Registered Nurse Type: Progress Notes Filed: 06/21/2024 11:23 Note Text: DIABETES CARE AND EDUCATION VISIT Location: [place] Type of visit: In person individual PATIENT'S MAIN CONCERN TODAY: Low blood sugars and make sure her sensor is connected Support person present for education today: none Cognitive ability: Alert and oriented Motivation to learn: Interested Learning barriers identified by educator: none Method of instruction: written, verbal, and demonstration DIABETES FINDINGS: 3rd GDM - given copy of the Survival Skills and GDM guide Monitoring: downloaded and linked to our Endo account Meal Planning: briefly reviewed Medications: Reviewed use of the insulin pens Problem Solving: Discussed hypoglycemia and hyperglycemia - discussed follow up with her physician for dosage adjustments if having any sugars less than 60 mg/dL in Physical Activity: benefits of physical activity for her body's use of insulin/sugar HANDOUTS: Healthy You: Survival Skills and Healthy You: Diabetes and LEARNING RESPONSE: Taking medications: Demonstrated understanding/competency today or at previous visit Monitoring glucose: Demonstrated understanding/competency today or at previous visit Acute complications: Demonstrated understanding/competency today or at previous visit POSSIBLE FUTURE TOPICS: 1. DIABETES CARE AND EDUCATION PLAN: Individual follow-up, GDM dietary appointment scheduled for RD Time Spent (Minutes): 25 minutes This visit note will be communicated to the healthcare provider via access to shared medical record. SIGNATURE: Samantha Elias RN PATIENT NAME: Seda De León DATE: June 21, 2024 TIME: 10:59 AM [facility] 06-21-2024 Miscellaneous Notes Thank you. Orders signed Spoke to Endocrinology- Dr. Torres is able to see patient tomorrow at 3pm. [employer]-able to see Pt today at 11am to assist with linking Pt's deloris to [employer] system. Pt is agreeable to seeing Endo Dietitian Wednesday virtually at 11am. At bedtime-eating cheese stick, cottage cheese, yogurt. Advised Pt to be cautious with the yogurt as it can have a lot of sugar in it. Pt states that its usually around 2am that she wakes up with her BG around 40/50's and she is hot/sweaty. Advised Pt to maybe set an alarm for 1am and eat protein-such as peanuts to help stabilize BG. Pt states she has been trying to stick to eating mainly meats and vegetables Pt states yesterday at grilled chicken wrap-used mini tortilla (0 carb wrap). Please file pended orders. PSS scheduling appts. Seda Cardoza RN Okay 20w3d DX gestational DM-sent to [facility][1] on Wednesday. Discharged home on Wednesday. Pt was started on Lispro & Lantus insulin and dosage/ Has Deloris. Ever since leaving on Wednesday has been keeping a log of blood sugars. Fluctuating -180's then down to 40's , constant headaches since Wednesday Taking Tylenol-helps, but not taking completely away. Has not been monitoring blood pressures and denies having BP problems at this time. Pt states she is eating high protein meals. The low BG are waking her up at night. Currently in [facility] getting an iron infusion-appt at 930 (60 minute appt). Advised Pt that headaches can occur with fluctuations in blood sugars and that she should be seen to discuss with provider what dosage would be best for her. Please advise on when Pt should be seen. Seda Cardoza RN documented in this encounter [facility] 06-21-2024 Telephone encounter Note Spoke to Endocrinology- Dr. Torres is able to see patient tomorrow at 3pm. [employer]-able to see Pt today at 11am to assist with linking Pt's deloris to [employer] system. Pt is agreeable to seeing Endo Dietitian Wednesday virtually at 11am. At bedtime-eating cheese stick, cottage cheese, yogurt. Advised Pt to be cautious with the yogurt as it can have a lot of sugar in it. Pt states that its usually around 2am that she wakes up with her BG around 40/50's and she is hot/sweaty. Advised Pt to maybe set an alarm for 1am and eat protein-such as peanuts to help stabilize BG. Pt states she has been trying to stick to eating mainly meats and vegetables Pt states yesterday at grilled chicken wrap-used mini tortilla (0 carb wrap). Please file pended orders. PSS scheduling appts. Seda Cardoza RN [facility] 06-21-2024 Telephone encounter Note [place] [facility] 06-21-2024 Telephone encounter Note 20w3d DX gestational DM-sent to [facility][1] on Wednesday. Discharged home on Wednesday. Pt was started on Lispro & Lantus insulin and dosage/ Has Deloris. Ever since leaving on Wednesday has been keeping a log of blood sugars. Fluctuating -180's then down to 40's , constant headaches since Wednesday Taking Tylenol-helps, but not taking completely away. Has not been monitoring blood pressures and denies having BP problems at this time. Pt states she is eating high protein meals. The low BG are waking her up at night. Currently in [facility] getting an iron infusion-appt at 930 (60 minute appt). Advised Pt that headaches can occur with fluctuations in blood sugars and that she should be seen to discuss with provider what dosage would be best for her. Please advise on when Pt should be seen. Seda Cardoza RN [facility] 06-17-2024 Note HNO ID: [id number] Author: CRISTY SWENSON DO Service: Obstetrics Author Type: Resident Type: Progress Notes Filed: 06/17/2024 08:30 Note Text: Attestation signed by Donna Worthington MD at 06/17/2024 7:50 PM MFM Addendum: 19w6d with GDMA2 and pre-diabetes. Started on insulin. Lantus . Home on lispro . She is planning to get a freestyle CGM. Advised to follow up with Evelin Wang for glucose follow up instructions. Donna Worthington MD OBSTETRICS NTEPARTUM PROGRESS NOTE SERVICE DATE: 06/17/2024 SERVICE TIME: 8:28 AM 28 year old EGA:19w6d admitted for glycemic control in the setting of recently diagnosed GDMA. Plan of care discussed with: Provider, RN, Patient. Assessment AND Plan Insulin controlled gestational diabetes mellitus (GDM) in second trimester (HCC) - direct admission from [place] to the [facility] service for glycemic control in the setting of GDM - fasting glucose 78 (4/5) - initiate Lantus 15/15, log 12/22/09, SS1 - admission CBC, CMP within normal limits other than iron deficiency anemia - Hgb A1c pending - fasting and 1 hour post-prandial blood glucose - consult nutrition - s/p DM education Rh negative state in antepartum period ([facility]) - A negative will need Rhogam at 28 wks History of gestational hypertension - GHTN in G1/G2 - compliant with bASA History of gastric bypass - susana-en-y gastric bypass 08/2022 - hx of iron malabsorption - Hgb 9.9 two weeks ago Anemia - most recent Hgb 9.9 - admission Hgb 9.4, consider venofer during admission Hx of gestational diabetes in prior , currently ([facility]) - poorly controlled GDMA2 in G3 Prematurity of fetus ([facility]) - daily doptones - BMZ, magnesium, NICU consult deferred due to previability - has not had anatomy US yet Subjective : No current vaginal bleeding, No current leaking of fluid, No contractions, Good movement, No shortness of breath or chest pain, and No calf tenderness Seda is feeling well this morning. She has no complaints and was able to sleep well last night. She would like to be discharged home today. Requesting a prescription for a CGM on discharge. Objective : LAST VITALS: Pulse BP Resp O2 Sat Temp Pain 77 117/64 15 98 % 36 ?C (96.8 ?F) 0 PHYSICAL EXAM: General: WD, WN, NAD, comfortable Heart: RR Lungs: normal respiratory effort MONITORING/ASSESSMENT: Daily doptones pending LABS Diagnostic tests reviewed for today's visit: Most recent labs and imaging results. SIGNATURE: Cristy Swenson DO PATIENT NAME: Seda De León DATE: June 17, 2024 TIME: 6:38 AM [facility] 06-16-2024 Note HNO ID: [id number] Author: ANTHONY, DAVID, RN Service: Diabetes Education Author Type: Registered Nurse Type: Allied Health Filed: 06/16/2024 15:47 Note Text: DIABETES EDUCATION INPATIENT PROGRESS NOTE INITIAL OR FOLLOW-UP: First diabetes care AND education visit this admission VISIT TYPE: in-person SERVICE DATE: 06/16/2024 SERVICE TIME: 3 pm RECOMMENDATIONS TO DISCHARGING PROVIDER FOR DISCHARGE ORDERS: Follow-up with PCP/endo/MFM after discharge. Provided outpatient phone number for follow up. Awareness of need for referral for education. Educated on pen use as well as hypo/hyperglycemia s/s and management. Patient return demo of insulin pen with 100% accuracy. Reviewed hospital dosing and discussed how they may change. Patient was on insulin with last and has been checking BG for the last week or so. Had GDM with last and was admitted during that time for variable BG. Encouraged patient to seek outpatient diabetes educ referral for RN/RD support. Reviewed CGM and brief explanation of use/benefits/obtainment. RECOMMENDATIONS TO INPATIENT NURSE: Allow patient to dial up insulin pen dose (supervised) and Allow patient to self-inject insulin (supervised) PATIENT HISTORY/ASSESSMENT: Previously diagnosed: Gestational Treatment prior to hospitalization: prior on insulin Has meter. Admission Dx: GDM INTERVENTIONS/TOPICS COVERED: -Diabetes Basics: diabetes disease process, role of insulin in the body, role of glucose in the body, insulin resistance, relationship of glucose and insulin in the body, hepatic glucose release, gestational diabetes basics, and symptoms of diabetes -Monitoring: BG targets, CGM type: Deloris, rationale for HGM, and testing frequency -Healthy Eating: impact of carbs on BG, foods with carbs, and protein -Medications: medication safety/timing, medication side effects, insulin storage, site selection/rotation, pen injection instruction, patient able to do a successful return demo with minimal coaching, sharps disposal, basal insulin, prandial insulin, and injectable insulin discussed: lispro (Humalog) and glargine (Lantus) -Physical Activity: benefits of exercise, impact of exercise on BG, types of exercise, and exercise safety -Problem Solving: hypoglycemia s/sx/tx and hyperglycemia s/sx/tx -Reducing Risks: LT complications, importance of BG control to reduce risks, and risks to mom and baby with elevated blood sugars during EDUCATION: Cognitive ability: Alert and Oriented. Motivation to learn: Interested. Barriers to learning: None Family support: Unable to assess - Family not present Education Type: Individual instruction Written instruction - handouts Verbal instruction Demonstration-Hands on Learning Response to education: States/Identifies. Education provided to: Patient. Teachback method used: Yes Handouts provided: Healthy You: Diabetes and Time Spent (Minutes): 30 SIGNATURE: David Anthony RN PATIENT NAME: Seda De León DATE: June 16, 2024 TIME: 3:42 PM PAGER: [phone] [facility] 06-16-2024 Telephone encounter Note Patient notified. Polo Soto RN [facility] 06-16-2024 Miscellaneous Notes Patient notified. Polo Soto RN Please call patient- I spoke to [facility] Dr. Jocelynn Mackenzie educational psychology professor for [facility]- pt is go proceed to [facility] for admission for BS control. Patient notified and wants to go to [facility]. Polo Soto RN Please call patient- I reached out to [facility]- BS are extremely elevated. They agree with admission for BS regulation- either [facility] or [facility]. Would she be ok with this- and where does she prefer? 19w5d Please review elevated blood sugars in RR's absence. Thank you. documented in this encounter [facility] 06-16-2024 Telephone encounter Note Please call patient- I spoke to [facility] Dr. Jocelynn Mackenzie educational psychology professor for [facility]- pt is go proceed to [facility] for admission for BS control. [facility] Work Phone: 06-16-2024 Telephone encounter Note Patient notified and wants to go to [facility]. Polo Soto RN [facility] 06-16-2024 Telephone encounter Note Please call patient- I reached out to [facility]- BS are extremely elevated. They agree with admission for BS regulation- either [place] or [facility]. Would she be ok with this- and where does she prefer? [facility] 06-16-2024 Telephone encounter Note 19w5d Please review elevated blood sugars in RR's absence. Thank you. [facility] 06-05-2024 Note HNO ID: [id number] Author: LUH QUINN RN Service: ? Author Type: Registered Nurse Type: Progress Notes Filed: 06/05/2024 13:15 Note Text: Patient referred to Blood Management for evaluation and treatment of pre-surgical anemia and/or iron deficiency. Non-surgical: anemia in Date of surgery: NA Medical/Surgical History: PAST MEDICAL HISTORY Diagnosis Date Anemia complicating , first trimester 03/24/2019 Anemia during in second trimester 05/19/2023 Asthma as a child Childhood asthma without complication 01/03/2018 01/03/2018 Not currently using Albuterol inhaler. Continue to monitor. No Hemabate. SW Concussion 2009 COVID-19 virus infection 03/26/202103/2021 Diet controlled gestational diabetes mellitus (GDM) in third trimester 08/16/2019 Gestational hypertension History of gestational hypertension 03/16/2019 Hx of gestational diabetes mellitus, not currently 05/16/2020 Insulin controlled gestational diabetes mellitus (GDM) in third trimester 05/19/2023 Maternal iron deficiency anemia complicating , third trimester 05/04/2023 Mononucleosis NEGATIVE MEDICAL HISTORY normal color vision PMH - PAST MEDICAL HISTORY OF slip disc Polyhydramnios in third trimester 07/05/2018 06/03/23 Mild noted on 32 week growth. Continue to plan for testing. Cristy Matthew APRN.BLENDER LABORER July 05, 2018 D/w her risks. NSTs weekly. Kick counts. PTL precuations. F/u weekly. Angie Mora MD Spondylolysis of lumbar region 06/25/2011 PAST SURGICAL HISTORY Procedure Laterality Date GASTRIC BYPASS HX 08/20/2022 LAPAROSCOPY SURG CHOLECYSTECTOMY 08/30/2018 Cholecystectomy, lap Other significant Medical/Surgical history: - Prior diagnosis of anemia - Nutritional deficiencies - Gastric bypass Current Outpatient Medications Medication Sig aspirin, enteric coated (ECOTRIN LOW STRENGTH) 81 mg EC tablet Take 1 tablet by mouth once daily. ondansetron orally disintegrating (ZOFRAN ODT) 4 mg disintegrating tablet Take 1 tablet by mouth every 8 hours as needed. ferrous sulfate 325 mg (65 mg iron) tablet Take 325 mg by mouth once daily. vit/iron fum/folic ac (-FOLIC ACID ORAL) Take by mouth. No current facility-administered medications for this visit. Current medications that may affect iron absorption and/or blood loss: - Aspirin Baseline laboratory values: WBC (k/uL) Date Value 05/30/2024 9.94 RBC (m/uL) Date Value 05/30/2024 4.24 Hemoglobin (g/dL) Date Value 05/30/2024 9.9 (L) Hematocrit (%) Date Value 05/30/2024 33.5 (L) MCV (fL) Date Value 05/30/2024 79.0 (L) MCH (pg) Date Value 05/30/2024 23.3 (L) MCHC (g/dL) Date Value 05/30/2024 29.6 (L) RDW-CV (%) Date Value 05/30/2024 15.9 (H) Platelet Count (k/uL) Date Value 05/30/2024 474 (H) MPV (fL) Date Value 05/30/2024 10.9 Iron Date Value Ref Range Status 05/30/2024 20 (L) 41 - 186 ug/dL Final TIBC Date Value Ref Range Status 05/30/2024 >520 (H) 232 - 386 ug/dL Final Ferritin Date Value Ref Range Status 05/30/2024 13.8 (L) 14.7 - 205.1 ng/mL Final Folate Date Value Ref Range Status 06/02/2022 13.8 >4.7 ng/mL Final Vitamin B12 Date Value Ref Range Status 06/02/2022 678 232 - 1,245 pg/mL Final Transferrin Saturation Date Value Ref Range Status 05/30/2024 <3.8 (L) 15.0 - 57.0 % Final Assess for the need to augment a patient?s natural red blood cell production: - Blood transfusion avoidance - Iron depletion Recommendations according to Blood Management patient care guidelines: - Iron Sucrose 200 mg, IV infusion, dose(s) 3 Total iron deficit using Ganzoni equation = 677 mg (pre- wt 67 kg/goal hgb 11 g/dL) Clinical information is sent to a provider for review and evaluation for treatment. [facility] 06-05-2024 History of Presen t illness Narrative Patient referred to Blood Management for evaluation and treatment of pre-surgical anemia and/or iron deficiency. Non-surgical: anemia in Date of surgery: NA Medical/Surgical History: PAST MEDICAL HISTORY Diagnosis Date Anemia complicating , first trimester 03/24/2019 Anemia during in second trimester 05/19/2023 Asthma as a child Childhood asthma without complication 01/03/2018 01/03/2018 Not currently using Albuterol inhaler. Continue to monitor. No Hemabate. SW Concussion 2009 COVID-19 virus infection 03/26/202103/2021 Diet controlled gestational diabetes mellitus (GDM) in third trimester 08/16/2019 Gestational hypertension History of gestational hypertension 03/16/2019 Hx of gestational diabetes mellitus, not currently 05/16/2020 Insulin controlled gestational diabetes mellitus (GDM) in third trimester 05/19/2023 Maternal iron deficiency anemia complicating , third trimester 05/04/2023 Mononucleosis NEGATIVE MEDICAL HISTORY normal color vision PMH - PAST MEDICAL HISTORY OF slip disc Polyhydramnios in third trimester 07/05/2018 06/03/23 Mild noted on 32 week growth. Continue to plan for testing. Cristy Matthew APRN.BLENDER LABORER July 05, 2018 D/w her risks. NSTs weekly. Kick counts. PTL precuations. F/u weekly. Angie Mora MD Spondylolysis of lumbar region 06/25/2011 PAST SURGICAL HISTORY Procedure Laterality Date GASTRIC BYPASS HX 08/20/2022 LAPAROSCOPY SURG CHOLECYSTECTOMY 08/30/2018 Cholecystectomy, lap Other significant Medical/Surgical history: - Prior diagnosis of anemia - Nutritional deficiencies - Gastric bypass Current Outpatient Medications Medication Sig aspirin, enteric coated (ECOTRIN LOW STRENGTH) 81 mg EC tablet Take 1 tablet by mouth once daily. ondansetron orally disintegrating (ZOFRAN ODT) 4 mg disintegrating tablet Take 1 tablet by mouth every 8 hours as needed. ferrous sulfate 325 mg (65 mg iron) tablet Take 325 mg by mouth once daily. vit/iron fum/folic ac (-FOLIC ACID ORAL) Take by mouth. No current facility-administered medications for this visit. Current medications that may affect iron absorption and/or blood loss: - Aspirin Baseline laboratory values: WBC (k/uL) Date Value 05/30/2024 9.94 RBC (m/uL) Date Value 05/30/2024 4.24 Hemoglobin (g/dL) Date Value 05/30/2024 9.9 (L) Hematocrit (%) Date Value 05/30/2024 33.5 (L) MCV (fL) Date Value 05/30/2024 79.0 (L) MCH (pg) Date Value 05/30/2024 23.3 (L) MCHC (g/dL) Date Value 05/30/2024 29.6 (L) RDW-CV (%) Date Value 05/30/2024 15.9 (H) Platelet Count (k/uL) Date Value 05/30/2024 474 (H) MPV (fL) Date Value 05/30/2024 10.9 Iron Date Value Ref Range Status 05/30/2024 20 (L) 41 - 186 ug/dL Final TIBC Date Value Ref Range Status 05/30/2024 >520 (H) 232 - 386 ug/dL Final Ferritin Date Value Ref Range Status 05/30/2024 13.8 (L) 14.7 - 205.1 ng/mL Final Folate Date Value Ref Range Status 06/02/2022 13.8 >4.7 ng/mL Final Vitamin B12 Date Value Ref Range Status 06/02/2022 678 232 - 1,245 pg/mL Final Transferrin Saturation Date Value Ref Range Status 05/30/2024 <3.8 (L) 15.0 - 57.0 % Final Assess for the need to augment a patient s natural red blood cell production: - Blood transfusion avoidance - Iron depletion Recommendations according to Blood Management patient care guidelines: - Iron Sucrose 200 mg, IV infusion, dose(s) 3 Total iron deficit using Ganzoni equation = 677 mg (pre- wt 67 kg/goal hgb 11 g/dL) Clinical information is sent to a provider for review and evaluation for treatment. documented in this encounter [facility] 05-31-2024 Progress note Formatting of t his note might be different from the original. RR- VB No. LOF No. CTXS No. Movement: present. Other c/o: No. Medication list reviewed. patient reports started checking BS b/c of h/o GDM and hasn't felt well so was concerned about high or low BS. SENSITIVE EXAM: Sensitive exam not performed. Physical Exam See Flow Sheet Abd: soft, nontender, gravid Ext: edema: no A/P 17w3d Estimated Date of Delivery: 11/05/24 Assessment & Plan 17 weeks gestation of Encounter for supervision of normal in multigravida Anemia affecting , antepartum h/o gastric bypass, iron levels still low despite attempt at po fe, referral for IVfe Diet controlled gestational diabetes mellitus (GDM) in second trimester h/o gastric bypass, normal hgba1c earlier in . However, now BS is significantly elevated. D/w her need recording of trends to determine if needs treatment. Consider endocrine referaly and consider continuous glucose monitoring. COnsider GDM as strong h/o of it and will not have her do 1 hr as has dumping syndrome. BS difficult to control last . States glucose strips are new within a month and monitor is from last and in good working order. Checked BS at work and reading was simliar to her monitor F/u for anatomy US or prn. Send BS log in within a week for review. 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 Angie Mora M.D. [facility] 05-31-2024 Miscellaneous Notes RR- VB No. LOF No. CTXS No. Movement: present. Other c/o: No. Medication list reviewed. patient reports started checking BS b/c of h/o GDM and hasn't felt well so was concerned about high or low BS. SENSITIVE EXAM: Sensitive exam not performed. Physical Exam See Flow Sheet Abd: soft, nontender, gravid Ext: edema: no A/P 17w3d Estimated Date of Delivery: 11/05/24 Assessment & Plan 17 weeks gestation of Encounter for supervision of normal in multigravida Anemia affecting , antepartum h/o gastric bypass, iron levels still low despite attempt at po fe, referral for IVfe Diet controlled gestational diabetes mellitus (GDM) in second trimester h/o gastric bypass, normal hgba1c earlier in . However, now BS is significantly elevated. D/w her need recording of trends to determine if needs treatment. Consider endocrine referaly and consider continuous glucose monitoring. COnsider GDM as strong h/o of it and will not have her do 1 hr as has dumping syndrome. BS difficult to control last . States glucose strips are new within a month and monitor is from last and in good working order. Checked BS at work and reading was simliar to her monitor F/u for anatomy US or prn. Send BS log in within a week for review. 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 Angie Mora M.D. documented in this encounter [facility] 05-31-2024 Instructions Donna Miguel MA - 05/31/2024 3:30 PM EDT SEQUENTIAL SCREENINGS The [facility] offers sequential screenings for women who are [...] It will require an appointment with our bottle house quality control technician. This is not an ultrasound performed [...] the above symptoms, contact our office at [phone] and ask to speak with a nurse. After hours, you can call doctors registry at [phone] OR call [facility] at [phone] and ask to have the doctor educational psychology professor paged. If you consider this an emergency, dial 9-1-1 or go to your nearest emergency department. NEED HELP? Are you dealing with a violent or abusive relationship? Are you a victim of rape or sexual assult? Call [facility] ([facility] 24 hour Crisis Hotline: 920.810.4263 or 393-951-2060. MANUAL Your Guide to a Healthy manual is now on-line. Visit [email or web address] to download your free copy documented in this encounter [facility] 05-31-2024 Telephone encounter Note Blood management consulted. Ivett Laguerre APRN.CNM [facility] 05-31-2024 Instructions Ivett Laguerre APRN.CNM - 05/31/2024 9:41 AM EDT Referral to Blood Management: We want to let you know we have placed a referral for you to our Blood Management Program. Your lab results show that you have anemia, and this program is designed to help manage and treat anemia during . Anemia is a condition where you don't have enough healthy red blood cells to carry oxygen to your body's tissues, which can cause fatigue, other health issues for you and complications with your . Our team of specialists will contact you to schedule an appointment and work with you to develop a personalized treatment plan. This may include diet changes, supplements, and/or other medical treatments to ensure you and your baby remain healthy throughout your and delivery. For more information about anemia during , you can visit the following link: [email or web address] Please feel free to reach out to us if you have any questions or concerns. documented in this encounter [facility] 05-31-2024 Miscellaneous Notes Blood management consulted. Ivett Laguerre APRN.CNM documented in this encounter [facility] 04-26-2024 Progress note Formatting of t his note might be different from the original. S: Seda De León is a 28 year old female who presents at 12 weeks gestation for a routine. Just completed early anatomy / NT ultrasound. Denies headache, visual changes, chest pain, shortness of breath, vaginal bleeding, leakage of fluid, or dysuria. Nausea resolved. No longer taking Zofran. O: See flow sheet Gen: No apparent distress Abd: Gravid, nontender ASSESSMENT/PLAN: 1. Encounter for supervision of normal in multigravida 2. Hx of gestational diabetes in prior , currently 3. Anemia affecting in second trimester 4. 12 weeks gestation of 5. Rh negative state in antepartum period 6. History of gastric bypass 7. History of gestational hypertension - Repeat CBC today - BP normal at 120/82 - Anticipate iron infusions due to hx of malabsorption oral iron - Hx. Of gastric bypass- no GCT- will start monitoring blood sugars - Hx of GDM A2 - Continue ASA - Continue vitamin - Rhogam at 28 weeks gestation - RTO 4 weeks Ivett Laguerre APRN.CNM [facility] 04-26-2024 Miscellaneous Notes S: Seda De León is a 28 year old female who presents at 12 weeks gestation for a routine. Just completed early anatomy / NT ultrasound. Denies headache, visual changes, chest pain, shortness of breath, vaginal bleeding, leakage of fluid, or dysuria. Nausea resolved. No longer taking Zofran. O: See flow sheet Gen: No apparent distress Abd: Gravid, nontender ASSESSMENT/PLAN: 1. Encounter for supervision of normal in multigravida 2. Hx of gestational diabetes in prior , currently 3. Anemia affecting in second trimester 4. 12 weeks gestation of 5. Rh negative state in antepartum period 6. History of gastric bypass 7. History of gestational hypertension - Repeat CBC today - BP normal at 120/82 - Anticipate iron infusions due to hx of malabsorption oral iron - Hx. Of gastric bypass- no GCT- will start monitoring blood sugars - Hx of GDM A2 - Continue ASA - Continue vitamin - Rhogam at 28 weeks gestation - RTO 4 weeks Ivett Laguerre APRN.CNM documented in this encounter [facility] 04-26-2024 Tom Crawford MA - 04/26/2024 10:14 AM EST SEQUENTIAL SCREENINGS The [facility] offers sequential screenings for women who are [...] It will require an appointment with our bottle house quality control technician. This is not an ultrasound performed [...] the above symptoms, contact our office at [phone] and ask to speak with a nurse. After hours, you can call doctors registry at [phone] OR call [facility] at [phone] and ask to have the doctor educational psychology professor paged. If you consider this an emergency, dial 9-7-2 or go to your nearest emergency department. NEED HELP? Are you dealing with a violent or abusive relationship? Are you a victim of rape or sexual assult? Call [facility] ([place]) 24 hour Crisis Hotline: 744.584.2634 or 251-359-8626. MANUAL Your Guide to a Healthy manual is now on-line. Visit [email or web address] to download your free copy documented in this encounter [facility] 04-04-2024 Telephone encounter Note 1st risk assessment form submitted 04/04/2024. Inna Carroll RN [facility] 04-04-2024 Miscellaneous Notes 1st risk assessment form submitted 04/04/2024. Inna Carroll RN documented in this encounter [facility] 03-28-2024 Note HNO ID: [id number] Author: KAYY LONGO APRN.BLENDER LABORER Service: ? 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 Patient's last menstrual period was 02/29/2024 (approximate). from OB Dating Form. was unplanned but accepted Complaints: No OB History T2 L3 SAB1 IAB0 Ectopic0 Multiple0 Live Births3 Previous history: Prior : never History of 4th degree laceration: NA History of shoulder dystocia: No History of Hypertensive disorders including pre-eclampsia or gestational hypertension: Yes -with first History of gestational diabetes: Yes -2nd and 3rd Patient's Risk Screening for delivery: Have you had a prior cash between 20w and 36w6d? Yes Did you present in active spontaneous labor or have ruptured membranes, or advanced cervical dilation (greater than or equal to 4 cm) or effacement? Yes How many pregnancies have you had before? 3 Did you have a previous baby with a GBS Infection? No Please select all that apply for any prior : N/A MEDICAL/PSYCHOSOCIAL HISTORY: History of hemorrhage or bleeding concerns: No Thyroid Disease: No History of chronic hypertension: No History of pre-existing diabetes: No ABO/RH(D) Date Value Ref Range Status 05/22/2019 A NEGATIVE Final No weight on file for this encounter. Last Pap: 09/01/2021 History of abnormal pap: No Prior treatment for cervical dysplasia: N/A. Last HPV: History of STDs: None Partner History of STDs: None Did you have a partner with Herpes? No Tobacco use: No E-Cigarette/Vaping Use: No Caffeine use: Yes Drug use: No Alcohol use: No Multivitamin with Folic acid: Yes Would refuse blood transfusion if medically necessary: No Social Needs: How often does this describe you? I don't have enough money to pay my bills: Never Within the past 12 months, have you worried that your food would run out before you had money to buy more? Never In the past 12 months, has lack of reliable transportation kept you from going to medical appointments or work, or from getting things needed for daily living? Never In the past 12 months, have you had any concerns about having a place to live, or about the condition or quality of your housing? Never Would you like more information on any of the following (please check all that apply)? Not interested Social History: Do you have any history of depression, anxiety, PTSD, or other mood problems? No Do you have a history of abuse or trauma that may impact your experience? No Are you currently employed? Yes -[employer] Depression/Anxiety Screening: denies symptoms of depression. OB Depression and Anxiety Screening- This Encounter (since 03/30/2024) None Genetic Screening: Partner present: No Patient verbalized knowledge of partner family health history: No Do you or your partner have any personal or family history of defects not previously discussed: No Do you have history of a complicated by anomaly, genetic condition, or demise: No OB Risk Screening: Completed, positive findings include: Patient answered 'Yes' they had a prior cash between 20w and 36w6d. 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 Continue to monitor. No Hemabate. SW Concussion 2009 COVID-19 virus infection 03/26/202103/2021 Diet controlled gestational diabetes mellitus (GDM) in third trimester 08/16/2019 Gestational hypertension History of gestational hypertension 03/16/2019 Hx of gestational diabetes mellitus, not currently 05/16/2020 Mononucleosis NEGATIVE MEDICAL HISTORY normal color vision PMH - PAST MEDICAL HISTORY OF slip disc Spondylolysis of lumbar region 06/25/2011 PAST SURGICAL HISTORY Procedure Laterality Date GASTRIC BYPASS HX 08/20/2022 LAPAROSCOPY SURG CHOLECYSTECTOMY 08/30/2018 Cholecystectomy, lap Current Outpatient Medications Medication Sig Dispense Refill ferrous sulfate 325 mg (65 mg iron) tablet Take 325 mg by mouth once daily. vit/iron fum/folic ac (-FOLIC ACID ORAL) Take by mouth. Etonogestrel-Ethinyl Estradiol (NUVARING) 0.12-0.015 mg/24 hr vaginal ring Use 1 Each vaginally as directed. (Patient not taking: Reported on 03/28/2024) 1 Each 13 acetaminophen (TYLENOL) 325 mg tablet Take 650 mg by mouth every 6 hours as needed. (Patient not taking: Reported on 03/28/2024) No current facility-administered medication (more content not included)... 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 Patient's last menstrual period was 02/29/2024 (approximate). from OB Dating Form. was unplanned but accepted Complaints: No OB History T2 L3 SAB1 IAB0 Ectopic0 Multiple0 Live Births3 Previous history: Prior : never History of 4th degree laceration: NA History of shoulder dystocia: No History of Hypertensive disorders including pre-eclampsia or gestational hypertension: Yes -with first History of gestational diabetes: Yes -2nd and 3rd Patient's Risk Screening for delivery: Have you had a prior cash between 20w and 36w6d? Yes Did you present in active spontaneous labor or have ruptured membranes, or advanced cervical dilation (greater than or equal to 4 cm) or effacement? Yes How many pregnancies have you had before? 3 Did you have a previous baby with a GBS Infection? No Please select all that apply for any prior : N/A MEDICAL/PSYCHOSOCIAL HISTORY: History of hemorrhage or bleeding concerns: No Thyroid Disease: No History of chronic hypertension: No History of pre-existing diabetes: No ABO/RH(D) Date Value Ref Range Status 05/22/2019 A NEGATIVE Final No weight on file for this encounter. Last Pap: 09/01/2021 History of abnormal pap: No Prior treatment for cervical dysplasia: N/A. Last HPV: History of STDs: None Partner History of STDs: None Did you have a partner with Herpes? No Tobacco use: No E-Cigarette/Vaping Use: No Caffeine use: Yes Drug use: No Alcohol use: No Multivitamin with Folic acid: Yes Would refuse blood transfusion if medically necessary: No Social Needs: How often does this describe you? I don't have enough money to pay my bills: Never Within the past 12 months, have you worried that your food would run out before you had money to buy more? Never In the past 12 months, has lack of reliable transportation kept you from going to medical appointments or work, or from getting things needed for daily living? Never In the past 12 months, have you had any concerns about having a place to live, or about the condition or quality of your housing? Never Would you like more information on any of the following (please check all that apply)? Not interested Social History: Do you have any history of depression, anxiety, PTSD, or other mood problems? No Do you have a history of abuse or trauma that may impact your experience? No Are you currently employed? Yes -[employer] Depression/Anxiety Screening: denies symptoms of depression. OB Depression and Anxiety Screening- This Encounter (since 03/30/2024) None Genetic Screening: Partner present: No Patient verbalized knowledge of partner family health history: No Do you or your partner have any personal or family history of defects not previously discussed: No Do you have history of a complicated by anomaly, genetic condition, or demise: No OB Risk Screening: Completed, positive findings include: Patient answered 'Yes' they had a prior cash between 20w and 36w6d. 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 Continue to monitor. No Hemabate. SW Concussion 2009 COVID-19 virus infection 03/26/202103/2021 Diet controlled gestational diabetes mellitus (GDM) in third trimester 08/16/2019 Gestational hypertension History of gestational hypertension 03/16/2019 Hx of gestational diabetes mellitus, not currently 05/16/2020 Mononucleosis NEGATIVE MEDICAL HISTORY normal color vision PMH - PAST MEDICAL HISTORY OF slip disc Spondylolysis of lumbar region 06/25/2011 PAST SURGICAL HISTORY Procedure Laterality Date GASTRIC BYPASS HX 08/20/2022 LAPAROSCOPY SURG CHOLECYSTECTOMY 08/30/2018 Cholecystectomy, lap Current Outpatient Medications Medication Sig Dispense Refill ferrous sulfate 325 mg (65 mg iron) tablet Take 325 mg by mouth once daily. vit/iron fum/folic ac (-FOLIC ACID ORAL) Take by mouth. Etonogestrel-Ethinyl Estradiol (NUVARING) 0.12-0.015 mg/24 hr vaginal ring Use 1 Each vaginally as directed. (Patient not taking: Reported on 03/28/2024) 1 Each 13 acetaminophen (TYLENOL) 325 mg tablet Take 650 mg by mouth every 6 hours as needed. (Patient not taking: Reported on 03/28/2024) No current facility-administered medications for this visit. Allergies As of Date: 03/31/2024 Allergen Noted Reaction CEFDINIR 04/11/2012 Vomiting MORPHINE 05/15/2013 Hives and Shortness of Breath PEANUTS 12/18/2014 Swelling Fully Assessed 03/31/2024 Does patient have penicillin allergy: No REVIEW OF SYSTEMS: GENERAL: Negative for: Fever or Chills HEENT: Negative for: Headache, Impaired Vision, Ringing in Ears, Nosebleeds NECK: Negative for: Swelling, Pain, Stiffness RESPIRATORY: Negative for: Cough, Shortness of breath, Wheezing GASTROINTESTINAL: Negative for: Heartburn, Constipation, Diarrhea, Blood in stool, and Positive for: Nausea and Vomiting MUSCULOSKELETAL: Negative for: Muscle or joint pain, stiffness, Joint swelling NEUROLOGIC/PSYCHIATRIC: Negative for: Weakness, Paralysis, Numbness, Tingling, Tremor, Anxiety, Depression, Memory loss SKIN: Negative for: Rash, Itching GENITOURINARY: Negative for: vaginal itching, vaginal discharge, hematuria or dysuria SENSITIVE EXAM: The sensitive examination was discussed with the Patient or Patient's Authorized R&D Engineer. As applicable, any other physician, advance practice provider, medical student, or other health professional student that will be observing or involved in the sensitive examination for educational or training purposes was discussed with the Patient or Authorized R&D Engineer. The Patient or Authorized R&D Engineer has agreed to proceed with the sensitive examination. (Sensitive examination includes inspection and/or palpation of the breasts, pelvis, prostate and anorectal regions). PHYSICAL EXAM: LMP 02/29/2024 GENERAL: pleasant in no apparent distress DERMATOLOGY: [...] adequate Limited OB ultrasound exam: single intrauterine , positive cardiac activity, and POCUS performed. +cardiac activity, CRL consistent with LMP. Kayy Longo APRN.CNP ASSESSMENT: 28 year old at 4w3d wks gestational age PLAN: 1) Patient oriented to practice. Patient given new OB orientation folder. Discussed nutrition, folic acid supplementation, dietary guidelines, exercise, smoking, alcohol, caffeine, and drug use. Discussed gestational weight gain guidelines. Discussed routine OB labs including STD/HIV. Discussed how to access Your guide to a health and the [employer]. 2) Screening: Hemoglobin A1C: ordered Baby Aspirin: The patient has been counseled about the potential benefits of low dose aspirin in and our recommendation that this be offered to all patients, regardless of whether they meet the high risk criteria specified above. She Accepts Aneuploidy Screening: Discussed aneuploidy screening, nuchal translucency/first trimester early anatomy ultrasound and NIPT. The risks/benefits and limitations of NIPT/aneuploidy screening were reviewed including the potential for false negative and false positive results. The availability of genetic counseling was reviewed. Information on aneuploidy screening was provided. The patient chooses to proceed with First trimester early anatomy ultrasound (12-13w6d) and NIPT (10 weeks) Myriad Carrier Screening: Discussed myriad carrier screening. We discussed the availability of professional-society guided carrier screening and reviewed the conditions screened and limitations of screening. The availability of genetic counseling was reviewed. Information on carrier screening was provided. The patient Declines 3) Patient offered option of Virtual Visits. Patient unsure. May consider in future. 4) History of hypertension: Gestational Hypertension History of diabetes: Given previous gestational diabetes or LGA baby, ordered early glucose screen or Hemoglobin A1C Follow up in 4 weeks or sooner prnCarlotta Longo APRN.CNP documented in this encounter [facility] 03-28-2024 Instructions Patricia Valentine LPN - 03/28/2024 2:10 PM EST Please select the following link to access the [facility] Your Guide to a Healthy . [email or web address] Please select the following link to access the [facility] Your Guide to a Healthy . [email or web address] documented in this encounter [facility] 03-16-2024 Note HNO ID: [id number] Author: TRISHA RUDOLPH MD Service: ? Author Type: Physician Type: Progress Notes Filed: 03/16/2024 10:42 Note Text: The patient presents for requested ultrasound. Full report available in the Imaging tab in [employer]. Trisha Rudolph MD [facility] 03-16-2024 History of Presen t illness Narrative The patient presents for requested ultrasound. Full report available in the Imaging tab in [employer]. Trisha Rudolph MD documented in this encounter [facility] 03-06-2024 Telephone encounter Note See result note. Inna Horen, RN [facility] 03-06-2024 Miscellaneous Notes See result note. Inna Horne, RN ----- Message from Inna Garcia MD sent at 03/03/2024 10:02 AM EST ----- Keep open for future results documented in this encounter [facility] 03-03-2024 Telephone encounter Note ----- Message from Inna Garcia MD sent at 03/03/2024 10:02 AM EST ----- Keep open for future results [facility] 03-01-2024 Telephone encounter Note Patient notified and voiced understanding, will get blood work completed tomorrow. Steve Bolivar RN [facility] 03-01-2024 Miscellaneous Notes Patient notified and voiced understanding, will get blood work completed tomorrow. Steve Bolivar RN Yes. Orders placed Patient was last seen in the office on 02/01 for miscarriage follow up. At office visit she was prescribed Nuvaring and started it the following day. Patient calling with concerns of positive test at home. Patient took a test because she was due to start her period after removing the Nuvaring and she has not started yet. Patient last had an HCG quant level done on 01/28/24 and it was 61.2. Do you want patient to have repeat blood work? Steve Bolivar RN documented in this encounter [facility] 03-01-2024 Telephone encounter Note Yes. Orders placed [facility] 03-01-2024 Telephone encounter Note Patient was last seen in the office on 02/01 for miscarriage follow up. At office visit she was prescribed Nuvaring and started it the following day. Patient calling with concerns of positive test at home. Patient took a test because she was due to start her period after removing the Nuvaring and she has not started yet. Patient last had an HCG quant level done on 01/28/24 and it was 61.2. Do you want patient to have repeat blood work? Steve Bolivar RN [facility] 02-11-2024 Telephone encounter Note Patient notified. Polo Soto RN [facility] 02-11-2024 Miscellaneous Notes Patient notified. Polo Soto RN She can start it. Patient saw DM 02/01 for f/u miscarriage and was prescribed Nuvaring. She is asking when she can start that. She is still having light bleeding from miscarriage. Aware provider is back in office on 02/10. Polo Soto RN documented in this encounter [facility] 02-11-2024 Telephone encounter Note She can start it. [facility] 02-09-2024 Telephone encounter Note Patient saw DM 02/01 for f/u miscarriage and was prescribed Nuvaring. She is asking when she can start that. She is still having light bleeding from miscarriage. Aware provider is back in office on 02/10. Polo Soto RN [facility] 02-02-2024 Note HNO ID: [id number] Author: JIMMIE JULES MD Service: ? Author Type: Physician Type: Progress Notes Filed: 02/02/2024 11:59 Note Text: Commercial Installer offered: Patient declines. Seda De León is a 28 year old female who presents for follow up miscarriage- pt reports didn't know she was - took UPT on 01/13, started bleeding on 01/28 - no fevers or pain. Pt reports just stopped breast feeding 2 months ago. Pt was not taking any control. Pt reports would like to start BC. Pt reports previously used Nuva Ring and was happy with it. Pt offers no other concerns today. Pt reports prior to she was being followed for a left ovarian cyst. Patient states she was to have a follow-up ultrasound but it had to be canceled because she found out she was . 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 Continue to monitor. No Hemabate. SW Concussion 2009 COVID-19 virus infection 03/26/202103/2021 Diet controlled gestational diabetes mellitus (GDM) in third trimester 08/16/2019 Gestational hypertension History of gestational hypertension 03/16/2019 Hx of gestational diabetes mellitus, not currently [...] Other MGGMo Anesthesia Problems No Family History Social History Tobacco Use Smoking status: Never Smokeless tobacco: Never Vaping Use Vaping status: Never Used Substance Use Topics Alcohol use: No Drug use: No Current Outpatient Medications Medication Sig ferrous sulfate 325 mg (65 mg iron) tablet Take 325 mg by mouth once daily. vit/iron fum/folic ac (-FOLIC ACID ORAL) Take by mouth. acetaminophen (TYLENOL) 325 mg tablet Take 650 mg by mouth every 6 hours as needed. No current facility-administered medications for this visit. Allergies As of Date: 02/02/2024 Allergen Noted Reaction CEFDINIR 04/11/2012 Vomiting MORPHINE 05/15/2013 Hives and Shortness of Breath PEANUTS 12/18/2014 Swelling Fully Assessed 09/13/2023 REVIEW OF SYSTEMS Abdomen: No bloating, early satiety, indigestion, or increased flatulence. No abdominal pain, nausea, vomiting, diarrhea, or constipation. Bladder: no dysuria. Expanded ROS: no fever Allergies and current medication updated:Yes SENSITIVE EXAM: The sensitive examination was discussed with the Patient or Patient's Authorized R&D Engineer. As applicable, any other physician, advance practice provider, medical student, or other health professional student that will be observing or involved in the sensitive examination for educational or training purposes was discussed with the Patient or Authorized R&D Engineer. The Patient or Authorized R&D Engineer has agreed to proceed with the sensitive examination. (Sensitive examination includes inspection and/or palpation of the breasts, pelvis, prostate and anorectal regions). EXAM: BP 118/74 Wt 147 lb (66.7kg) LMP 10/20/2022 GENERAL: pleasant, female in no apparent distress HEENT: Normocephalic, atraumatic, mucus membranes moist, and no lesions NECK: full range of motion DERMATOLOGY: Normal and without lesions ABDOMEN: soft, non-tender, and no masses PELVIC: external genitalia normal, normal Bartholin's glands, urethra, [place]'s glands, no vulvar lesions, no cervical lesions, good vaginal support, normal appearing perineal body and perianal region, moderate amount of blood in vault, minimal active bleeding. Os is closed. NEURO: alert and oriented x3,exam grossly non-focal EXTREMITIES: normal Limited transvaginal ultrasund: EM lining 0.9cm. LEFT ovarian simple cyst - 7.6 cm, ASSESSMENT AND PLAN: Assessment AND Plan Complete HCG levels reviewed Ovarian cyst, left Reschedule pelvic us Encounter for initial prescription of vaginal ring hormon (more content not included)... [facility] 02-02-2024 History of Presen t illness Narrative Commercial Installer offered: Patient declines. Seda De León is a 28 year old female who presents for follow up miscarriage- pt reports didn't know she was - took UPT on 01/13, started bleeding on 01/28 - no fevers or pain. Pt reports just stopped breast feeding 2 months ago. Pt was not taking any control. Pt reports would like to start BC. Pt reports previously used Nuva Ring and was happy with it. Pt offers no other concerns today. Pt reports prior to she was being followed for a left ovarian cyst. Patient states she was to have a follow-up ultrasound but it had to be canceled because she found out she was . 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 Continue to monitor. No Hemabate. SW Concussion 2009 COVID-19 virus infection 03/26/202103/2021 Diet controlled gestational diabetes mellitus (GDM) in third trimester 08/16/2019 Gestational hypertension History of gestational hypertension 03/16/2019 Hx of gestational diabetes mellitus, not currently [...] Other MGGMo Anesthesia Problems No Family History Social History Tobacco Use Smoking status: Never Smokeless tobacco: Never Vaping Use Vaping status: Never Used Substance Use Topics Alcohol use: No Drug use: No Current Outpatient Medications Medication Sig ferrous sulfate 325 mg (65 mg iron) tablet Take 325 mg by mouth once daily. vit/iron fum/folic ac (-FOLIC ACID ORAL) Take by mouth. acetaminophen (TYLENOL) 325 mg tablet Take 650 mg by mouth every 6 hours as needed. No current facility-administered medications for this visit. Allergies As of Date: 02/02/2024 Allergen Noted Reaction CEFDINIR 04/11/2012 Vomiting MORPHINE 05/15/2013 Hives and Shortness of Breath PEANUTS 12/18/2014 Swelling Fully Assessed 09/13/2023 REVIEW OF SYSTEMS Abdomen: No bloating, early satiety, indigestion, or increased flatulence. No abdominal pain, nausea, vomiting, diarrhea, or constipation. Bladder: no dysuria. Expanded ROS: no fever Allergies and current medication updated:Yes SENSITIVE EXAM: The sensitive examination was discussed with the Patient or Patient's Authorized R&D Engineer. As applicable, any other physician, advance practice provider, medical student, or other health professional student that will be observing or involved in the sensitive examination for educational or training purposes was discussed with the Patient or Authorized R&D Engineer. The Patient or Authorized R&D Engineer has agreed to proceed with the sensitive examination. (Sensitive examination includes inspection and/or palpation of the breasts, pelvis, prostate and anorectal regions). EXAM: BP 118/74 Wt 147 lb (66.7kg) LMP 10/20/2022 GENERAL: pleasant, female in no apparent distress HEENT: Normocephalic, atraumatic, mucus membranes moist, and no lesions NECK: full range of motion DERMATOLOGY: Normal and without lesions ABDOMEN: soft, non-tender, and no masses PELVIC: external genitalia normal, normal Bartholin's glands, urethra, [place]'s glands, no vulvar lesions, no cervical lesions, good vaginal support, normal appearing perineal body and perianal region, moderate amount of blood in vault, minimal active bleeding. Os is closed. NEURO: alert and oriented x3,exam grossly non-focal EXTREMITIES: normal Limited transvaginal ultrasund: EM lining 0.9cm. LEFT ovarian simple cyst - 7.6 cm, ASSESSMENT AND PLAN: Assessment & Plan Complete HCG levels reviewed Ovarian cyst, left Reschedule pelvic us Encounter for initial prescription of vaginal ring hormonal contraceptive Nuva ring ordered Medical Decision Making: Problems: Low: Acute, uncomplicated illness or injury Moderate: 1+ chronic illnesses with change Risk: Moderate: Drug management Medical Decision Making Level: 4 - Moderate Jimmie Lopez MD documented in this encounter [facility] 01-31-2024 Telephone encounter Note Patient notified and voiced understanding of results. Follow up scheduled. Steve Bolivar RN [facility] 01-31-2024 Miscellaneous Notes Patient notified and voiced understanding of results. Follow up scheduled. Steve Bolivar RN Attempted to call patient. Unable to leave message because mailbox was full. Polo Soto RN Pt quant levels are falling, consistent with a SAB. Pt needs scheduled with doctor to discuss management. Kayy Longo APRN.BLENDER LABORER documented in this encounter [facility] 01-31-2024 Telephone encounter Note Attempted to call patient. Unable to leave message because mailbox was full. Polo Soto RN [facility] 01-31-2024 Telephone encounter Note Pt quant levels are falling, consistent with a SAB. Pt needs scheduled with doctor to discuss management. Kayy Longo APRN.BLENDER LABORER [facility] 01-25-2024 Telephone encounter Note Patient notified. Will have HCG done on 01/25 and 01/27. Scheduled NOB on 02/23. Inna Horne RN [facility] 01-25-2024 Miscellaneous Notes Patient notified. Will have HCG done on 01/25 and 01/27. Scheduled NOB on 02/23. Inna Horne RN +HCG, repeat x 2, order filed. Assist pt in scheduling NOB. Kayy Longo APRN.BLENDER LABORER documented in this encounter [facility] 01-25-2024 Telephone encounter Note +HCG, repeat x 2, order filed. Assist pt in scheduling NOB. Kayy Longo APRN.BLENDER LABORER [facility] 01-24-2024 Telephone encounter Note Patient notified and voiced understanding. Steve Bolivar RN [facility] 01-24-2024 Miscellaneous Notes Patient notified and voiced understanding. Steve Bolivar, RN Ordered filed. She can stop by and have that done at any time. Kayy Longo APRN.BLENDER LABORER Patient states that she has not had a period since she delivered June 2023. Calling to report that she had a faint +UPT and a week later, another faint +UPT. She has a Pelvic US on 12/16/23 for a left ovarian cyst. Not using contraception. Interested in discussing if she is not . Denies experiencing any symptoms. Having some left sided pain, but believes that's from her cyst. HCG pending if appropriate. Inna Horne RN documented in this encounter [facility] 01-24-2024 Telephone encounter Note Ordered filed. She can stop by and have that done at any time. Kayy Longo APRN.CNP [facility] 01-24-2024 Telephone encounter Note Patient states that she has not had a period since she delivered June 2023. Calling to report that she had a faint +UPT and a week later, another faint +UPT. She has a Pelvic US on 12/16/23 for a left ovarian cyst. Not using contraception. Interested in discussing if she is not . Denies experiencing any symptoms. Having some left sided pain, but believes that's from her cyst. HCG pending if appropriate. Inna Horne RN [facility] 12-28-2023 Telephone encounter Note Left message for patient to call office or check mychart. Polo Soto RN [facility] 12-28-2023 Miscellaneous Notes Left message for patient to call office or check mychart. Polo Soto RN Left message to call office Please let the patient know that the ovarian cyst has slightly increased in size I would like to repeat the ultrasound in another 12 weeks. Please review torsion precautions with patient. Kayy Longo APRN.FLORECITA documented in this encounter [facility] 12-17-2023 Telephone encounter Note Left message to call office [facility] 12-17-2023 Telephone encounter Note Please let the patient know that the ovarian cyst has slightly increased in size I would like to repeat the ultrasound in another 12 weeks. Please review torsion precautions with patient. Kayy Longo APRN.BLENDER LABORER [facility] 12-16-2023 Note HNO ID: [id number] Author: REYNA GREENE MD Service: ? 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 Encounter Diagnosis ICD-10-CM 1. Ovarian cyst, left N83.202 Please see report under imaging tab. 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 Encounter Diagnosis ICD-10-CM 1. Ovarian cyst, left N83.202 Please see report under imaging tab. Reyna Greene MD December 16, 2023 9:14 PM documented in this encounter [facility] 10-04-2023 Telephone encounter Note Pt notified and pelvic u/s appt made. Seda Cardoza RN [facility] 10-04-2023 Miscellaneous Notes Pt notified and pelvic u/s appt made. Seda Cardoza RN Please let the pt know that there is a cyst on the left ovary which is the likely reason for the pain she is having. I would like her to repeat the US in 10 weeks to monitor cyst. No treatment at this time. Kayy Longo APRN.BLENDER LABORER documented in this encounter [facility] 10-04-2023 Telephone encounter Note Please let the pt know that there is a cyst on the left ovary which is the likely reason for the pain she is having. I would like her to repeat the US in 10 weeks to monitor cyst. No treatment at this time. Kayy Longo APRN.BLENDER LABORER [facility] 10-02-2023 Note HNO ID: [id number] Author: REYNA GREENE MD Service: ? 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 Encounter Diagnosis ICD-10-CM 1. Pelvic pain in female R10.2 Please see report under imaging tab. 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 Encounter Diagnosis ICD-10-CM 1. Pelvic pain in female R10.2 Please see report under imaging tab. Reyna Greene MD October 02, 2023 9:20 AM documented in this encounter [facility] 09-13-2023 Note HNO ID: [id number] Author: KAYY LONGO APRN.BLENDER LABORER Service: ? Author Type: Nurse Practitioner Type: Progress Notes Filed: 09/13/2023 10:42 Note Text: Commercial Installer offered: Patient declines. Seda De León is a 28 year old female who presents for problem visit left side pelvic pain for 3 week(s). HPI: pain started about 3-4 wks that comes and goes. The pain ranges from cramping to sharp. She is now noticing the pain more often. Denies any vaginal bleeding. 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 Continue to monitor. No Hemabate. SW Concussion 2010 COVID-19 virus infection 03/26/202103/2021 Diet controlled gestational diabetes mellitus (GDM) in third trimester 08/16/2019 Gestational hypertension History of gestational hypertension 03/16/2019 Hx of gestational diabetes mellitus, not currently [...] Other MGGMo Anesthesia Problems No Family History Social History Tobacco Use Smoking status: Never Smokeless tobacco: Never Vaping Use Vaping Use: Never used Substance Use Topics Alcohol use: No Drug use: No Current Outpatient Medications Medication Sig ferrous sulfate 325 mg (65 mg iron) tablet Take 325 mg by mouth once daily. vit/iron fum/folic ac (-FOLIC ACID ORAL) Take by mouth. acetaminophen (TYLENOL) 325 mg tablet Take 650 mg by mouth every 6 hours as needed. insulin NPH subcutaneous pen Inject 76 Units subcutaneously as directed. Inject 50 units before breakfast and 26 units at night (Patient not taking: Reported on 07/13/2023) insulin needles, DISPOSABLE, (PEN NEEDLE) 31 gauge x 5/16 1 Each once daily. (Patient not taking: Reported on 07/13/2023) oxymetazoline (AFRIN, OXYMETAZOLINE,) 0.05 % nasal spray Use 2-3 Sprays in each nostril two times a day. Use as directed. For a maximum of 3 (three) days. (Patient not taking: Reported on 07/13/2023) BABY ASPIRIN ORAL Take 81 mg by mouth once daily. (Patient not taking: Reported on 07/13/2023) No current facility-administered medications for this visit. Allergies As of Date: 09/13/2023 Allergen Noted Reaction CEFDINIR 04/11/2012 Vomiting MORPHINE 05/15/2013 Hives and Shortness of Breath PEANUTS 12/18/2014 Swelling Fully Assessed 09/13/2023 REVIEW OF SYSTEMS Expanded ROS: N/A Allergies and current medication updated:Yes EXAM: BP 120/70 Wt 150 lb 9.6 oz (68.3kg) LMP 10/20/2022 GENERAL: pleasant, female in no apparent distress HEENT: Normocephalic, atraumatic, mucus membranes moist, and no lesions CHEST: Normal inspiratory effort ABDOMEN: soft, no masses, and Mild tenderness in LLQ, suprapubic area PELVIC: external genitalia normal, normal Bartholin's glands, urethra, [place]'s glands, no vulvar lesions, no cervical lesions, good vaginal support, physiologic discharge present, normal appearing perineal body and perianal region BIMANUAL: uterus normal size, shape and consistency, no adnexal masses, non-tender, and Mild tenderness NEURO: alert and oriented x3,exam grossly non-focal EXTREMITIES: normal ASSESSMENT/PLAN: 1. Pelvic pain in female - ICD9: 625.9, ICD10: R10.2 - PELVIC US WHI Will notify patient of test results. Kayy Longo APRN.BLENDER LABORER Medical Decision Making: Problems: Low: Acute, uncomplicated illness or injury Data: Unique test(s) ordered: 1 Risk: Low: Low risk from testing/treatment Medical Decision Making Level: 3 - Low [facility] 09-13-2023 History of Presen t illness Narrative Commercial Installer offered: Patient declines. Seda De León is a 28 year old female who presents for problem visit left side pelvic pain for 3 week(s). HPI: pain started about 3-4 wks that comes and goes. The pain ranges from cramping to sharp. She is now noticing the pain more often. Denies any vaginal bleeding. 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 Continue to monitor. No Hemabate. SW Concussion 2009 COVID-19 virus infection 03/26/202103/2021 Diet controlled gestational diabetes mellitus (GDM) in third trimester 08/16/2019 Gestational hypertension History of gestational hypertension 03/16/2019 Hx of gestational diabetes mellitus, not currently [...] Other MGGMo Anesthesia Problems No Family History Social History Tobacco Use Smoking status: Never Smokeless tobacco: Never Vaping Use Vaping Use: Never used Substance Use Topics Alcohol use: No Drug use: No Current Outpatient Medications Medication Sig ferrous sulfate 325 mg (65 mg iron) tablet Take 325 mg by mouth once daily. vit/iron fum/folic ac (-FOLIC ACID ORAL) Take by mouth. acetaminophen (TYLENOL) 325 mg tablet Take 650 mg by mouth every 6 hours as needed. insulin NPH subcutaneous pen Inject 76 Units subcutaneously as directed. Inject 50 units before breakfast and 26 units at night (Patient not taking: Reported on 07/13/2023) insulin needles, DISPOSABLE, (PEN NEEDLE) 31 gauge x 5/16 1 Each once daily. (Patient not taking: Reported on 07/13/2023) oxymetazoline (AFRIN, OXYMETAZOLINE,) 0.05 % nasal spray Use 2-3 Sprays in each nostril two times a day. Use as directed. For a maximum of 3 (three) days. (Patient not taking: Reported on 07/13/2023) BABY ASPIRIN ORAL Take 81 mg by mouth once daily. (Patient not taking: Reported on 07/13/2023) No current facility-administered medications for this visit. Allergies As of Date: 09/13/2023 Allergen Noted Reaction CEFDINIR 04/11/2012 Vomiting MORPHINE 05/15/2013 Hives and Shortness of Breath PEANUTS 12/18/2014 Swelling Fully Assessed 09/13/2023 REVIEW OF SYSTEMS Expanded ROS: N/A Allergies and current medication updated:Yes EXAM: BP 120/70 Wt 150 lb 9.6 oz (68.3kg) LMP 10/20/2022 GENERAL: pleasant, female in no apparent distress HEENT: Normocephalic, atraumatic, mucus membranes moist, and no lesions CHEST: Normal inspiratory effort ABDOMEN: soft, no masses, and Mild tenderness in LLQ, suprapubic area PELVIC: external genitalia normal, normal Bartholin's glands, urethra, [place]'s glands, no vulvar lesions, no cervical lesions, good vaginal support, physiologic discharge present, normal appearing perineal body and perianal region BIMANUAL: uterus normal size, shape and consistency, no adnexal masses, non-tender, and Mild tenderness NEURO: alert and oriented x3,exam grossly non-focal EXTREMITIES: normal ASSESSMENT/PLAN: 1. Pelvic pain in female - ICD9: 625.9, ICD10: R10.2 - PELVIC US WHI Will notify patient of test results. Kayy Longo APRN.CNP Medical Decision Making: Problems: Low: Acute, uncomplicated illness or injury Data: Unique test(s) ordered: 1 Risk: Low: Low risk from testing/treatment Medical Decision Making Level: 3 - Low documented in this encounter [facility] 07-13-2023 Miscellaneous Notes Patient has appt with RR today Medication has been approved, attempted to contact pt without success. Message left asking pt to contact office for update. Pt does not actively use her mychart. Leonela Carreon LPN Electronic PA submitted. Will await further response from pts insurance. Leonela Carreon LPN Left message on pharmacy voicemail for them to call us or send us information regarding Insulin coverage,Several attempts by phone to reach pharmacy with long wait times Attempted to call [facility], was on hold for 15 minutes-will attempt again DIscussed with Dr Garcia. Patient to go to [facility]. She is instructed not to drive. She is to have her father drive her. I called Iveth AT [facility] L&D. Please call orders, Dr Gutierrez. Updated Episode faxed to [facility] PATIENT CALLING IN. States she has been unable to mixing picker tender Novalin R due to Insurance issues. Took 15 units of NPH today after her FBS was 248. Did not eat breakfast. Took BS again 1 hour later and it was 253. States she feels dizzy, hot, heart racing, nauseated and headache. Rates the pain a 7 on the pain scale. Patient states she is with her father and he can drive her to hospital if necessary. Blood sugars from yesterday: FBS;108 1 hour PP:187 Snack @ 10am-1 hour PP:162 lunch 1 hour PP:201 DInner 1 hour PP:176 Next appointment-BPP on Wednesday and NST and appt with Dr Garcia documented in this encounter [facility] 07-13-2023 Telephone encounter Note Patient has appt with RR today [facility] 07-13-2023 History of Presen t illness Narrative EARLY VISIT Seda De León is a 28 year old here for 1 week visit. Delivery Summary: ROS: General: Denies any fever or chills Hypertension Screening: Headache? No. Visual Changes? No Epigastric Pain? No Increased Swelling? No Taking any BP medications at home? No If applicable, monitoring BP at home? (If Yes, include results) NA Mood: normal Depression: denies symptoms of depression. OB Depression and Anxiety Screening- This Encounter (since 07/12/2023) Over the past 2 weeks have you felt down, depressed, or hopeless? Negative Over the past two weeks, have you felt little interest or pleasure in doing things? Negative Feeling nervous, anxious or on edge 0-Not at all Not being able to stop or control worrying 0-Not al all Anxiety Pre-Screening Total (If >/= 3 additional questions will be reviewed) 0 Feeding: Breast and bottle feeding problems: baby not gaining weight Bladder: No dysuria, gross hematuria, urinary frequency, urinary urgency, or incontinence Bowel symptoms: No nausea, vomiting, or diarrhea, No heartburn or reflux symptoms, and Negative for abdominal discomfort, blood in stools or black stools Abdomen: N/A Bleeding: spotting Bottom and Perineum: No issues Sleep: no sleep concerns and sleeps in bassinet/crib in parent's room, feels rested [place] since delivery: Not resumed Emotional support: Yes Exercise: N/A Other issues: None Above reviewed and agree. Angie Mora MD PHYSICAL EXAMINATION: Wt 167 lb (75.8 kg) LMP 10/20/2022 (Exact Date) Yes BMI 29.58 kg/m General: pleasant,female in no apparent distress, A&O x 3. Skin warm and intact. Pelvic: Deferred Bimanual: Deferred ASSESSMENT AND PLAN: 28 year old status post with normal course. Contraception plan: not sure . Reinforced 6-week pelvic rest. Encouraged condom usage should patient deviate. Education: resources provided - see MA/RN note 4. BP stable Follow up: Return to Clinic for 6 week visit and as needed Angie Mora MD documented in this encounter [facility] 07-06-2023 Telephone encounter Note Medication has been approved, attempted to contact pt without success. Message left asking pt to contact office for update. Pt does not actively use her mychart. Leonela Carreon LPN [facility] 07-06-2023 Hospital Discharg e instructions Additional Instructions Date of Discharge: 07/06/23 [facility] Work Phone: 07-06-2023 Progress note Note Date/Time July 06, 2023 8:56am [facility] Medical Records Department [address] [place] [address] Progress Note - OBGYN 07/06/2354 MR#: [id number] Acct: [id number] Name: SEDA DE LEÓN Rep #:[id number] : 1995 28 From: Kimi DOMINGUEZ PCP: SHAYY Alejandro Status:ADM I N Location: [place] [address] Subjective Subjective Doing well per patient and nursing staff. Ambulating and taking PO without difficulty. Voiding and passing flatus. Pain controlled. Bottle feeding, planning to pump when she gets home. Denies headache, visual changes, chest pain, shortness of breath, leg pain or increased bleeding. Lochia normal. Objective Data Objective Data Vital Signs: Vital Signs Temp Pulse Resp BP Pulse Ox O2 Del Method 98.4 F 70 18 105/71 97 Room Air 07/06/23 03:40 07/06/23 03:40 07/06/23 03:40 07/06/23 03:40 07/06/23 03:40 07/06/23 03:40 Oxygen Delivery Method Room Air Weight: 193 lb Body Mass Index (BMI) 34.2 Intake & Output: Intake and Output for Last 24 Hours 07/04/23 07/05/23 07/06/23 23:59 23:59 23:59 Intake Total 2868.95 / 2868.95 Output Total 2250 / 2250 Balance 618.95 / 618.95 Lab / Micro Data 07/04/23 08:00 ROS Constitutional Constitutional: Reports systems reviewed and no addt'l complaints, except as documented; Denies headache(s) Eyes Eyes: Denies acute decrease in peripheral vision, blurry vision or change in vision ENT HEENT: Reports systems reviewed and no addt'l complaints, except as documented Cardiovascular Cardiovascular: Denies chest pain or dizziness Respiratory/Chest Respiratory/Chest: Denies cough, dyspnea, dyspnea on exertion, shortness of breath at rest or shortness of breath with exertion Gastrointestinal Gastrointestinal: Denies abdominal pain, diarrhea, nausea or vomiting Genitourinary Genitourinary: Denies abdominal discomfort Musculoskeletal Musculoskeletal: Denies limited range of motion Integumentary Integumentary: Reports systems reviewed and no addt'l complaints, except as documented Neurologic Neurologic: Reports systems reviewed and no addt'l complaints, except as documented Psychiatric Psychiatric: Reports systems reviewed and no addt'l complaints, except as documented Endocrine Endocrinology: Reports systems reviewed and no addt'l complaints, except as documented Hematologic/Lymphatic Hematologic/Lymphatic: Reports systems reviewed and no addt'l complaints, exceptas documented Allergic/Immunologic Allergic/Immunologic: Reports systems reviewed and no addt'l complaints, except as documented Physical Exam Const alert and oriented x3 General Appearance: cooperative Orientation / Consciousness: awake, oriented to person, oriented to place and oriented to time Exam Limitations: no limitations HEENT normocephalic Head and Scalp: normal to inspection, normocephalic and atraumatic Face and Sinus: normal facial exam Eyes General Eye: normal appearance of both eyes Neck full ROM Chest Chest: symmetrical chest wall rise Resp normal respiratory effort and normal air movement Auscultation: clear to auscultation bilaterally Cardio regular rate, regular rhythm, S1 normal heart sound, S2 normal heart sound, no murmurs, no rub, no gallops and no clicks GI normal to inspection, nondistended, normoactive bowel sounds and non-tender appearance of the vagina normal Bladder / Kidney Exam: no CVA tenderness Back/Spine normal ROM Extremity normal to inspection and full ROM Skin no rashes or lesions noted Neuro oriented x3 and moves all extremities Sensorium / Orientation: awake, alert and oriented to person Motor Exam: clonus absent Deep Tendon Reflexes: Rt Patellar (L4): 2+ and Lt Patellar (L4): 2+ Assessment & Plan (1) Vaginal delivery: PLAN: Plan 1) PPD#2 D/C home 2) Vitals stable 3) follow up in 2 weeks and 6 weeks 07/06/23 0856 <Electronically signed by Kimi Smith CNM> Cosigner Signature (if applicable): CC: ~ Signed [facility] Work Phone: 1(964) 646-197104-23-2024 Discharge summary Author Kimi Smith [facility] July 06, 2023 8:54am Note Date/Time July 06, 2023 8:5 3am [facility] Medical Records Department [address] [place] [address] [place] [address] Discharge Summary 07/06/23 0852 MR#: [id number] Acct: [id number] Name: SEDA DE LEÓN Rep #:[id number] : 1995 28 From: Kimi DOMINGUEZ PCP: SHAYY Alejandro Status:ADM I N Location: [address] Providers Date of Admission: 07/04/23 Primary Care Physician: SHAYY Alejandro Reason For Visit: LABOR AND DELIVERY Diagnosis Discharge Diagnosis (1) Vaginal delivery: Status: Acute Code(s): O80 - Encounter for full-term uncomplicated delivery (2) 36 weeks gestation of : Status: Acute Code(s): Z3A.36 - 36 weeks gestation of (3) Gestational diabetes requiring insulin: Status: Acute Code(s): O24.414 - Gestational diabetes mellitus in , insulin controlled Medications at Discharge Home Medications vit no.95-ferrous fumarate 28 mg-folic acid 800 mcg tablet ( Multivitamins) 1 ea PO DAILY 02/14/18 acetaminophen 500 mg tablet 1,000 mg (2 x 500 mg) PO Q6H PRN PRN Pain 1-10 Or Fever #0 tabs 07/06/23 ibuprofen 600 mg tablet 600 mg PO Q6H PRN PRN Pain Score 1-10 #0 tabs 07/06/23 Weight / BMI Weight Weight: 193 lb Body Mass Index (BMI) 34.2 ABG / Lab / Microbiology Data 07/04/23 08:00 D/C Instructions Discharge Diet: No restrictions May resume sexual activity in: 6 weeks Weight Bearing Status: Full weight bearing Lifting Restricted to (Lbs): 20 Call your doctor if you observe: Fever of 101 or Higher, Inability to urinate, Inability to have a bowel movement, Using more than 1 pad per hour, Shortness ofbreath, Dizziness, Fainting spells, Chest pain, Increased palpitations (irregular heartbeat), Calf discomfort and Uncontrolled pain When: 2 weeks virtual visit and 6 weeks PP Meaningful Use Info Meaningful Use Meaningful Use Diagnoses (Choose all that apply): None applicable Ischemic Stroke Statin Dosing Therapy Reference: STATIN DOSE THERAPY REFERENCE: * Patients > 75 years receive moderate or high dose statin therapy. * Patients 75 years or YOUNGER should receive HIGH intensity statin dose unless contraindicated. You will be required to document reason for non-treatment if statin daily dose does not meet guidelines. HIGH DOSE STATIN THERAPY DAILY Atorvastatin > than or = to 40 mg Rosuvastatin > than or = to 20 mg Amlodipine + Atorvastatin > than or = to 2.5/40 mg Ezetimibe + Simvastatin 10/80 mg Simvastatin 80mg Discharge Plan Admission Admit Date/Time: 07/04/23 09:48 Primary Reason for Your Visit: Attending Provider: Sandra Edwards Primary Care Provider: Natalie Blum Discharge Orders/Prescriptions Prescriptions: New acetaminophen 500 mg Tablet 1,000 mg PO Q6H PRN PRN (Reason: Pain 1-10 Or Fever) Qty: 0 0RF ibuprofen 600 mg Tablet 600 mg PO Q6H PRN PRN (Reason: Pain Score 1-10) Qty: 0 0RF Continued PNV cmb#95-ferrous fumarate-FA [ Multivitamins] 1 EACH tablet 1 ea PO DAILY Discontinued acetaminophen 500 MG tablet 500 mg PO Q4H PRN PRN (Reason: Pain Or Fever) aspirin [Adult Low Dose Aspirin] 81 mg tablet,delayed release (DR/EC) 81 mg PO DAILY ferrous sulfate [Feosol] 325 mg (65 mg iron) tablet 325 mg PO DAILY Humulin N NPH Insulin KwikPen 100 unit/mL (3 mL) Insulin Pen 50 unit subcut BREAKFAST Humulin N NPH Insulin KwikPen 100 unit/mL (3 mL) Insulin Pen 16 unit subcut QHS Referrals / Follow Up: Sandra Edwards DO [Med Staff - Active Staff] - (2 week virtual and 6 week ) Natalie Blum PA [Primary Care Provider] - Disposition Disposition (needs filled in before D/C Order can be placed): Home, Self Care 07/06/23 0854 <Electronically signed by Kimi Smith CNM> Cosigner Signature (if applicable): CC: SAM Smith; SHAYY Alejandro~ Signed [facility] Work Phone: [phone]) 424-496904-23-2024 Discharge summary Author Kimi Smith [facility] July 06, 2023 8:52am Note Date/Time July 06, 2023 8:5 2am [facility] Medical Records Department [address] [place] [address] [place] [address] Discharge Summary 07/06/23 0851 MR#: [id number] Acct: [id number] Name: SEDA DE LEÓN Rep #:[id number] : 1995 28 From: Kimi DOMINGUEZ PCP: SHAYY Alejandro Status:ADM I N [facility] Prov[facility] Date of Admission: 07/04/23 Date of Discharge: 07/06/23 Primary Care Physician: SHAYY Alejandro Reason For Visit: LABOR AND DELIVERY Diagnosis Discharge Diagnosis (1) Vaginal delivery: Status: Acute Code(s): O80 - Encounter for full-term uncomplicated delivery (2) 36 weeks gestation of : Status: Acute Code(s): Z3A.36 - 36 weeks gestation of (3) Gestational diabetes requiring insulin: Status: Acute Code(s): O24.414 - Gestational diabetes mellitus in , insulin controlled Medications at Discharge Home Medications vit no.95-ferrous fumarate 28 mg-folic acid 800 mcg tablet ( Multivitamins) 1 ea PO DAILY 02/14/18 acetaminophen 500 mg tablet 500 mg PO Q4H PRN PRN Pain Or Fever 05/24/19 aspirin 81 mg tablet,delayed release (Adult Low Dose Aspirin) 81 mg PO DAILY 05/17/23 ferrous sulfate 325 mg (65 mg iron) tablet (Feosol) 325 mg PO DAILY 05/17/23 insulin NPH isoph U-100 human 100 unit/mL (3 mL) subcutaneous pen (Humulin N NPHU-100 Insulin KwikPen) 16 unit subcut QHS Diabetes 07/04/23 insulin NPH isoph U-100 human 100 unit/mL (3 mL) subcutaneous pen (Humulin N NPHU-100 Insulin KwikPen) 50 unit subcut BREAKFAST Diabetes 07/04/23 Hospital Course Summary of Care Provided Minutes Spent on Discharge: 15 Weight / BMI Weight Weight: 193 lb Body Mass Index (BMI) 34.2 ABG / Lab / Microbiology Data 07/04/23 08:00 D/C Instructions Discharge Diet: No restrictions Discharge Activity: Return to Normal Activity, May Drive, May Shower and May Take a Tub Bath May resume sexual activity in: 6 weeks Weight Bearing Status: Full weight bearing Lifting Restricted to (Lbs): 20 Call your doctor if you observe: Fever of 101 or Higher, Inability to urinate, Inability to have a bowel movement, Using more than 1 pad per hour, Shortness ofbreath, Dizziness, Fainting spells, Chest pain, Increased palpitations (irregular heartbeat), Calf discomfort and Uncontrolled pain When: 2 weeks virtual visit and 6 weeks PP Meaningful Use Info Meaningful Use Meaningful Use Diagnoses (Choose all that apply): None applicable Ischemic Stroke Statin Dosing Therapy Reference: STATIN DOSE THERAPY REFERENCE: * Patients > 75 years receive moderate or high dose statin therapy. * Patients 75 years or YOUNGER should receive HIGH intensity statin dose unless contraindicated. You will be required to document reason for non-treatment if statin daily dose does not meet guidelines. HIGH DOSE STATIN THERAPY DAILY Atorvastatin > than or = to 40 mg Rosuvastatin > than or = to 20 mg Amlodipine + Atorvastatin > than or = to 2.5/40 mg Ezetimibe + Simvastatin 10/80 mg Simvastatin 80mg Discharge Plan Admission Admit Date/Time: 07/04/23 09:48 Attending Provider: Sandar Edwards Primary Care Provider: Natalie Blum Discharge Orders/Prescriptions Prescriptions: No Action PNV cmb#95-ferrous fumarate-FA [ Multivitamins] 1 EACH tablet 1 ea PO DAILY acetaminophen 500 MG tablet 500 mg PO Q4H PRN PRN (Reason: Pain Or Fever) aspirin [Adult Low Dose Aspirin] 81 mg tablet,delayed release (DR/EC) 81 mg PO DAILY ferrous sulfate [Feosol] 325 mg (65 mg iron) tablet 325 mg PO DAILY Humulin N NPH Insulin KwikPen 100 unit/mL (3 mL) Insulin Pen 50 unit subcut BREAKFAST Humulin N NPH Insulin KwikPen 100 unit/mL (3 mL) Insulin Pen 16 unit subcut QHS Referrals / Follow Up: Natalie Blum PA [Primary Care Provider] - 07/06/23851 <Electronically signed by Kimi Smith CNM> Cosigner Signature (if applicable): CC: SAM Smith; SHAYY Alejandro~ Signed [facility] Work Phone: 1(424) 894-515604-23-2024 [facility] Medical Records Department [address] [place] [address] Discharge Summary 07/06/23851 MR#: [id number] Acct: [id number] Name: SEDA DE LEÓN Rep #: [id number] : 1995 28 From: Kimi Smith CNM PCP: SHAYY Alejandro Status:ADM IN Location: LR915-3 Providers Date of Admission: 07/04/23 Primary Care Physician: SHAYY Alejandro Reason For Visit: LABOR AND DELIVERY Diagnosis Discharge Diagnosis (1) Vaginal delivery: Status: Acute Code(s): O80 - Encounter for full-term uncomplicated delivery (2) 36 weeks gestation of : Status: Acute Code(s): Z3A.36 - 36 weeks gestation of (3) Gestational diabetes requiring insulin: Status: Acute Code(s): O24.414 - Gestational diabetes mellitus in , insulin controlled Medications at Discharge Home Medications vit no.95-ferrous fumarate 28 mg-folic acid 800 mcg tablet ( Multivitamins) 1 ea PO DAILY 02/14/18 acetaminophen 500 mg tablet 1,000 mg (2 x 500 mg) PO Q6H PRN PRN Pain 1-10 Or Fever #0 tabs 07/06/23 ibuprofen 600 mg tablet 600 mg PO Q6H PRN PRN Pain Score 1-10 #0 tabs 07/06/23 Weight / BMI Weight Weight: 193 lb Body Mass Index (BMI) 34.2 ABG / Lab / Microbiology Data 07/04/23 08:00 D/C Instructions Discharge Diet: No restrictions May resume sexual activity in: 6 weeks Weight Bearing Status: Full weight bearing Lifting Restricted to (Lbs): 20 Call your doctor if you observe: Fever of 101 or Higher, Inability to urinate, Inability to have a bowel movement, Using more than 1 pad per hour, Shortness of breath, Dizziness, Fainting spells, Chest pain, Increased palpitations (irregular heartbeat), Calf discomfort and Uncontrolled pain When: 2 weeks virtual visit and 6 weeks PP Meaningful Use Info Meaningful Use Meaningful Use Diagnoses (Choose all that apply): None applicable Ischemic Stroke Statin Dosing Therapy Reference: STATIN DOSE THERAPY REFERENCE: * Patients > 75 years receive moderate or high dose statin therapy. * Patients 75 years or YOUNGER should receive HIGH intensity statin dose unless contraindicated. You will be required to document reason for non-treatment if statin daily dose does not meet guidelines. HIGH DOSE STATIN THERAPY DAILY Atorvastatin > than or = to 40 mg Rosuvastatin > than or = to 20 mg Amlodipine + Atorvastatin > than or = to 2.5/40 mg Ezetimibe + Simvastatin 10/80 mg Simvastatin 80mg Discharge Plan Admission Admit Date/Time: 07/04/23 09:48 Primary Reason for Your Visit: Attending Provider: Sandra Edwards Primary Care Provider: Natalie Blum Discharge Orders/Prescriptions Prescriptions: New acetaminophen 500 mg Tablet 1,000 mg PO Q6H PRN PRN (Reason: Pain 1-10 Or Fever) Qty: 0 0RF ibuprofen 600 mg Tablet 600 mg PO Q6H PRN PRN (Reason: Pain Score 1-10) Qty: 0 0RF Continued PNV cmb#95-ferrous fumarate-FA [ Multivitamins] 1 EACH tablet 1 ea PO DAILY Discontinued acetaminophen 500 MG tablet 500 mg PO Q4H PRN PRN (Reason: Pain Or Fever) aspirin [Adult Low Dose Aspirin] 81 mg tablet,delayed release (DR/EC) 81 mg PO DAILY ferrous sulfate [Feosol] 325 mg (65 mg iron) tablet 325 mg PO DAILY Humulin N NPH Insulin KwikPen 100 unit/mL (3 mL) Insulin Pen 50 unit subcut BREAKFAST Humulin N NPH Insulin KwikPen 100 unit/mL (3 mL) Insulin Pen 16 unit subcut QHS Referrals / Follow Up: Sandra Edwards DO [Med Staff - Active Staff] - (2 week virtual and 6 week ) Natalie Blum PA [Primary Care Provider] - Disposition Disposition (needs filled in before D/C Order can be placed): Home, Self Care 07/06/23 0854 Cosigner Signature (if applicable): CC: SAM Smith; SHAYY Alejandro [facility] Medical Records Department [address] [place] [address] Discharge Summary 07/06/23 0851 MR#: [id number] Acct: [id number] Name: SEDA DE LEÓN Rep #: [id number] : 1995 28 From: Kimi Smith CNM PCP: SHAYY Alejandro Status:ADM IN Location: [id number] Providers Date of Admission: 07/04/23 Date of Discharge: 07/06/23 Primary Care Physician: SHAYY Alejandro Reason For Visit: LABOR AND DELIVERY Diagnosis Discharge Diagnosis (1) Vaginal delivery: Status: Acute Code(s): O80 - Encounter for full-term uncomplicated delivery (2) 36 weeks gestation of : Status: Acute Code(s): Z3A.36 - 36 weeks gestation of (3) Gestational diabetes requiring insulin: Status: Acute Code(s): O24.414 - Gestational diabetes mellitus in , insulin controlled Medications at Discharge Home Medications vit no.95-ferrous fumarate 28 mg-folic acid 800 mcg tablet ( Multivitamins) 1 ea PO DAILY 02/14/18 acetaminophen 500 mg tablet 500 mg PO Q4H PRN PRN Pain Or Fever 05/24/19 aspirin 81 mg tablet,delayed release (Adult Low Dose Aspirin) 81 mg PO DAILY 05/17/23 ferrous sulfate 325 mg (65 mg iron) tablet (Feosol) 325 mg PO DAILY 05/17/23 insulin NPH isoph U-100 human 100 unit/mL (3 mL) subcutaneous pen (Humulin N NPH U-100 Insulin Kwi kPen) 16 unit subcut QHS Diabetes 07/04/23 insulin NPH isoph U-100 human 100 unit/mL (3 mL) subcutaneous pen (Humulin N NPH U-100 Insulin KwikPen) 50 unit subcut BREAKFAST Diabetes 07/04/23 Hospital Course Summary of Care Provided Minutes Spent on Discharge: 15 Weight / BMI Weight Weight: 193 lb Body Mass Index (BMI) 34.2 ABG / Lab / Microbiology Data 07/04/23 08:00 D/C Instructions Discharge Diet: No restrictions Discharge Activity: Return to Normal Activity, May Drive, May Shower and May Take a Tub Bath May resume sexual activity in: 6 weeks Weight Bearing Status: Full weight bearing Lifting Restricted to (Lbs): 20 Call your doctor if you observe: Fever of 101 or Higher, Inability to urinate, Inability to have a bowel movement, Using more than 1 pad per hour, Shortness of breath, Dizziness, Fainting spells, Chest pain, Increased palpitations (irregular heartbeat), Calf discomfort and Uncontrolled pain When: 2 weeks virtual visit and 6 weeks PP Meaningful Use Info Meaningful Use Meaningful Use Diagnoses (Choose all that apply): None applicable Ischemic Stroke Statin Dosing Therapy Reference: STATIN DOSE THERAPY REFERENCE: * Patients > 75 years receive moderate or high dose statin therapy. * Patients 75 years or YOUNGER should receive HIGH intensity statin dose unless contraindicated. You will be required to document reason for non-treatment if statin daily dose does not meet guidelines. HIGH DOSE STATIN THERAPY DAILY Atorvastatin > than or = to 40 mg Rosuvastatin > than or = to 20 mg Amlodipine + Atorvastatin > than or = to 2.5/40 mg Ezetimibe + Simvastatin 10/80 mg Simvastatin 80mg Discharge Plan Admission Admit Date/Time: 07/04/23 09:48 Attending Provider: Sandra Edwards Primary Care Provider: Natalie Blum Discharge Orders/Prescriptions Prescriptions: No Action PNV cmb#95-ferrous fumarate-FA [ Multivitamins] 1 EACH tablet 1 ea PO DAILY acetaminophen 500 MG tablet 500 mg PO Q4H PRN PRN (Reason: Pain Or Fever) aspirin [Adult Low Dose Aspirin] 81 mg tablet,delayed release (DR/EC) 81 mg PO DAILY ferrous sulfate [Feosol] 325 mg (65 mg iron) tablet 325 mg PO DAILY Humulin N NPH Insulin KwikPen 100 unit/mL (3 mL) Insulin Pen 50 unit subcut BREAKFAST Humulin N NPH Insulin KwikPen 100 unit/mL (3 mL) Insulin Pen 16 unit subcut QHS Referrals / Follow Up: Natalie Blum PA [Primary Care Provider] - 07/06/23 0852 Cosigner Signature (if applicable): CC: SAM Smith; SHAY[facility] Alejandro [facility] Progress note Author Inna Garcia [facility] July 05, 2023 8:31am Note Date/Time July 05, 2023 8:3 1am [facility] Medical Records Department [address] [place] [address] Progress Note - OBGYN 07/05/23 0830 MR#: [id number] Acct: [id number] Name: SEDA DE LEÓN Rep #:[id number] : 1995 28 From: Inna Garcia MD PCP: SHAYY Alejandro Status:ADM I N [facility] Subjective Subjective Feels good. BG have been normal. Bottle feeding. Pain controlled., Moderate lochia Objective Data Objective Data Vital Signs: Vital Signs Temp Pulse Resp BP Pulse Ox O2 Del Method 97.1 F L 74 16 116/85 H 97 Room Air 07/05/23 03:13 07/05/23 03:13 07/05/23 03:13 07/05/23 03:13 07/05/23 03:13 07/05/23 03:13 Oxygen Delivery Method Room Air Weight: 87.543 kg Body Mass Index (BMI) 34.2 Intake & Output: Intake and Output for Last 24 Hours 07/03/23 07/04/23 07/05/23 23:59 23:59 23:59 Intake Total 2868.95 / 2868.95 Output Total 2250 / 2250 Balance 618.95 / 618.95 Lab / Micro Data 07/04/23 08:00 Labs: Laboratory Results - last 24 hr 07/04/23 08:00: PT 14.0, INR 1.1, APTT 27.3, Fibrinogen 529 H, Syphilis Total AbNon-reactive, Blood Type A NEGATIVE, Antibody Screen POSITIVE, Antibody Identification ANTI-D 07/04/23 11:06: POC Glucose 71 L 07/04/23 15:14: POC Glucose 66 L 07/04/23 17:04: POC Glucose 124 H 07/04/23 17:05: Screen NEGATIVE, Baby's Blood Type A POSITIVE, Baby's BRODY NEGATIVE 07/05/23 06:44: POC Glucose 74 Physical Exam Const alert and no apparent distress Narrative: Fundus firm, below umbilicus. Assessment & Plan (1) Vaginal delivery: (2) 36 weeks gestation of : (3) Gestational diabetes requiring insulin: PLAN: Plan Expect D/c tomorrow 07/05/23830 <Electronically signed by Inna Garcia MD> Cosigner Signature (if applicable): CC: ~ Signed [facility] Work Phone: 1(814) 804-541904-22-2024 History of Present illness Narrative* Polo Soto RN - 07/05/2023 8:57 AM EDT Patient delivered via by Dr. Edwards on 07/04/[address] [facility]. See OB history. Polo Soto RN [facility] Progress note Author Sandra Edwards [facility] July 04, 2023 2:12pm Note Date/Time July 04, 2023 2:1 2pm [facility] Medical Records Department [address] [place] [address] Progress Note 07/04/23 1405 MR#: [id number] Acct: [id number] Name: SEDA DE LEÓN Rep #:[id number] : 1995 28 From: Sandra Edwards DO PCP: SHAYY Alejandro Status:ADM I N Location: [place] [address] Progress Note RN called as patient feels she is leaking fluid. At bedside to check on patient.She is comfortable with an epidural. Physical Exam Const alert and no apparent distress General Appearance: comfortable HEENT normocephalic Resp normal respiratory effort GI soft to palpation and non-tender Narrative: Cvx 5/80/-2, cervix soft and now midposition. Assessment & Plan Assessment/Plan (1) Vaginal bleeding: PLAN: Patient on 4 of Pitocin with ctx's q 2 min and palpating strong. Cervical change noted, and cervix is now thinned and mid position. Can palpated head on cervical exam now. Upon exam scant brown blood noted, and possibly scantclear fluid as well. Bulging bag of water palpated behind head. Category 1tracing. Discussed with patient possible small leak in membranes, and now forebag palpated. Unable to rupture forebag given head is ballotable. Head has come downin the pelvis and cervical change noted with position changes and Pitocin. Continue with position changes to engage head prior to rupture of forebag.Bedside TAUS performed noting vertex presentation. Patient agreeable with plan of care. (2) History of gestational hypertension: (3) Rh negative state in antepartum period: (4) Polyhydramnios affecting : (5) 36 weeks gestation of : (6) Gestational diabetes requiring insulin: (7) History of gastric bypass: 07/04/23 1412 <Electronically signed by Sandra Edwards DO> Sandra Edwards DO Cosigner Signature (if applicable): CC: ~ Signed [facility] Work Phone: 1(553) 832-679804-21-2024 History and physical note Author Sandra Edwards [facility] July 04, 2023 2:05pm Note Date/Time July 04, 2023 8:5 6am [facility] Medical Records Department [address] [place] [address] H&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 The patient is a [id number] presents at 36w5d with bleeding. She states she woke up this morning after feeling a gush and noticed blood soaking through her pants, and onto her bed. She is feeling ctx's as well. No leaking fluid. Good FM. DIEGO from Wednesday has improved. Maternal Data Information BELEM Calculator Estimated Delivery Date Method Current WG Current Estimate 07/27/23 Manual 36w 5d PFSH PFS Medical History (Updated 07/04/23 @ 09:[address] Sandra Edwards DO) Gestational diabetes Gestational diabetes Polyhydramnios Home Medications vit no.95-ferrous fumarate 28 mg-folic acid 800 mcg tablet ( Multivitamins) 1 ea PO DAILY 02/14/18 [History Last Taken 10/16/19] acetaminophen 500 mg tablet 500 mg PO Q4H PRN PRN Pain Or Fever 05/24/19 [History Last Taken 05/24/19] aspirin 81 mg tablet,delayed release (Adult Low Dose Aspirin) 81 mg PO DAILY 05/17/23 [History Last Taken Unknown] ferrous sulfate 325 mg (65 mg iron) tablet (Feosol) 325 mg PO DAILY 05/17/23 [History Last Taken Unknown] insulin NPH isoph U-100 human 100 unit/mL (3 mL) subcutaneous pen (Humulin N NPHU-100 Insulin KwikPen) 16 unit subcut QHS Diabetes 04/21/24 [History Last Taken Unknown] insulin NPH isoph U-100 human 100 unit/mL (3 mL) subcutaneous pen (Humulin N NPHU-100 Insulin KwikPen) 50 unit subcut BREAKFAST Diabetes 07/04/23 [History Last Taken 07/03/23] Allergy/AdvReac Type Severity Reaction Status Date / Time cefdinir Allergy Vomiting Verified 06/11/23 22:20 morphine Allergy Rash Verified 06/11/23 22:20 peanut Allergy Anaphylaxis Verified 06/11/23 22:20 Surgical History (Updated 07/04/23 @ 08:26 by Melany Goyal) Gastric bypass status for obesity History of cholecystectomy Social History household members: children Smoking Status: Never smoker History Elective abortions Hx Para 2 Spontaneous abortions Hx # Term Pregnancies Ectopic pregnancies Hx # Pregnancies Multiple births # of living children NST FHR Rate Baby A Baseline: 140 Variability:: Moderate Accelerations:: 15 x 15 Decelerations:: None NST Reactive:: Yes FHR Category:: Category I Uterine Activity:: ctx's q 1-3 min Vital Signs Vital Signs Vital Signs: 07/04/23 07:03 07/04/23 07:03 07/04/23 07:03 Temperature Temperature Source Temporal Pulse Rate 72 Respiratory Rate Blood Pressure 139/95 H BP Systolic 139 BP Diastolic 95 07/04/23 07:03 07/04/23 07:03 07/04/23 08:29 Temperature 97.5 F L Temperature Source Pulse Rate Respiratory Rate 18 Blood Pressure 122/78 H BP Systolic 122 BP Diastolic 78 07/04/23 08:29 07/04/23 08:29 07/04/23 08:29 Temperature Temperature Source Temporal Pulse Rate 80 Respiratory Rate 16 Blood Pressure BP Systolic BP Diastolic 07/04/23 08:29 Temperature 98.9 F Temperature Source Pulse Rate Respiratory Rate Blood Pressure BP Systolic BP Diastolic Weight Weight: 193 lb Body Mass Index (BMI) 34.2 Physical Exam Const alert and no apparent distress General Appearance: comfortable HEENT normocephalic Resp normal respiratory effort GI soft to palpation, non-tender and non-distended Narrative: Cvx 4-5/60. Cervix is soft and posterior. BBOW on exam and unable to palpate head. Labs Labs Labs: Blood Type A NEGATIVE Antibody Screen NEGATIVE Hct 34.3 % (37-47) L Hgb 10.6 g/dL (12.0-15.0) L Obstetrics Ultrasound Syphilis Total Ab Pending Group B Strep DNA Negative (Negative) Rhogam given: Yes Assessment & Plan (1) 36 weeks gestation of : PLAN: - Admit for observation - GBS negative on 06/21/23 - Plans epidural for pain control - Cervix 4-5 cm on admission and on 1 hour recheck - Bedside TAUS shows subjective polyhydramnios and vertex presentation - Will recheck again in 2 hours. [place] with ctx's q 1-3 min, however patient comfortable appearing and cervix posterior - Discussed risk of prematurity with delivery at this gestational age - Discussed would not recommend BMZ for lung maturity given insulin requiring GDM and 36w5d (2) Gestational diabetes requiring insulin: PLAN: - BG check on admission - Diabetic protocol if admitted for labor (3) History of gastric bypass: (4) Polyhydramnios affecting : PLAN: - EFW 3,025 g 83% on 06/25/23 - JOSY on 07/02/23 showing polyhydramnios 33.5 cm - Discussed risks associated with polyhydramnios (5) Rh negative state in antepartum period: (6) History of gestational hypertension: PLAN: - BP's have been normal except isolated elevated diastolic BP. Headache from Wednesday has improved. Pre e labs 2 days ago normal. Continue to closely monitor (7) Vaginal bleeding: PLAN: - Discussed concern for placental abruption given amount of bleeding she described at home. Since admission scant brown to dark red blood noted on exams and pads. No active red bleeding. Abruption labs normal and Hgb stable. Category1 tracing. Discussed indication for emergent delivery would be heavy vaginal bleeding with concern for patient, or non reassuring heart tracing with concern for fetus. Continue to closely monitor at this time 07/04/23 0905 <Electronically signed by Sandra Edwards DO> Cosigner Signature (if applicable): CC: Dr. Sandra Edwards DO; SHAYY Alejandro~ Signed ADDENDUM by Dr. Sandra Edwards DO on 07/04/23 at 1405 Addendum Discussed patient with Dr. Wang for a second opinion. Patient is uncontrolled A2GDM and the plan was delivery at 37 week gestation. She is 5 cm with vaginal bleeding, a bulging bag of water, polyhydramnios, smiley on toco q 1-3 minutes, and concern for placental abruption. Given this, the decision was made to proceed with augmentation with Pitocin. Discussed risk if prematurity with the patient given 36 w 5 d gestation. Discussed r/b/a inductionof labor versus observation until 37 week gestation. Patient desires to proceed with induction of labor. 07/04/23 1405<Electronically signed by Sandra Edwards DO> Cosigner Signature (if applicable): cc: Dr. Sandra Edwards DO; SHAYY Alejandro ~* Signed [facility] Work Phone: 1(428) 912-276104-21-2024 Procedure [facility] 07-02-2023 Miscellaneous Notes* Telephone Encounter - Kimi Smith APRN.CNM - 07/02/2023 2:34 PM EDT Called labor and delivery to notify of patient coming and orders. Kimi Smith APRN.CNM * Telephone Encounter - Inna Horne RN - 07/02/2023 1:43 PM EDT 36w3d Patient called with c/o blurry vision since she left the office after her US. She's had a DIEGO the past two days. No relief with Tylenol. Pain rate of 6-7. Having some RUQ pain too. Advised to have someone take her to L&D for evaluation. Charge nurse notified. Please call L&D with orders. Inna Horne RN [facility] History of Present illness Narrative* Angie Moar MD - 06/28/2023 10:52 AM EDT NST SUMMARY PROVIDER ASSESSMENT AND INTERPRETATION Seda De Lenó is a 28 year old female, , who is at 35w6d with an BELEM of 07/27/2023, by Last Menstrual Period dating method. Indications for NST: Gestational Diabetes - Insulin Controlled Baseline: 145 Variability: Moderate Accelerations: Present 15 X 15 Decelerations: None Contractions: TOCO: Irregular Interpretation: Category I and Reactive SIGNATURE: Angie Mora MD documented in [facility]04-15-2024 Miscellaneous Notes* Quick Notes - Angie Mora MD - 06/28/2023 10:42 AM EDT RR- VB No. LOF No. CTXS No. Movement: present. Other c/o: mild intermittent DIEGO, no change in this. No visual changes Medication list reviewed. Physical Exam See Flow Sheet Abd: soft, nontender, gravid Ext: edema: 1+ , 2+ DTRs, no clonus A/P 35w6d Estimated Date of Delivery: 07/27/23 GDMA2- fastings now 80-90, postprandials now under 200 but still elevated. Today fasting 82, after breaskfast 170. Increase morning insulin to 50 units, keep evening at 26. NST done today US for growth last week 83% w/ mild poly, cont. antepartum testing. Plan delivery at 37 weeks Preeclampsia labs last week normal, couldn't void so urine prot. creatinine ratio not done- will have her do today Angie Mora M.D. documented in this encounterMer[facility] Instructions* Patient Instructions* Marly Hernadez MA - 06/28/2023 10:15 AM EDT SEQUENTIAL SCREENINGS The [facility] offers sequential screenings for women who are interested in screenings for chromosomal abnormalities and certain defects during a . The sequential screen combinesultrasound and blood tests to determine the risk [...] this testing. It will require an appointment withour bottle house quality control technician. This is not an ultrasound performed [...] the above symptoms, contact our office at [phone] and ask to speak with anurse. After hours, you can call doctors registry at [phone] OR call [facility] at [phone] ask to have the doctor educational psychology professor paged. If you consider this an emergency, dial 9-1-3 or go to your nearest emergency department. NEED HELP? Are you dealing with a violent or abusive relationship? Are you a victim of rape or sexual assult? Call [facility] ([place]) 24 hour Crisis Hotline: 801.910.1620 or 976-282-7316. MANUAL Your Guide to a Healthy manual is now on-line. Visit [email or web address] to download your free copy documented in this encounterMer[facility]04-12-[facility] History of Present illness Narrative* Jimmie Jules MD - 06/25/2023 11:45 AM EDT NST SUMMARY PROVIDER ASSESSMENT AND INTERPRETATION Seda De León is a 27 year old female, , who is at 35w3d with an BELEM of 07/27/2023, by Last Menstrual Period dating method. Indications for NST: Diabetes - Insulin Controlled Baseline: 145 Variability: Moderate Accelerations: Present 15 X 15 Decelerations: None Contractions: TOCO: None Interpretation: Category I and Reactive SIGNATURE: Jimmie Lopez MD documented in this encounterMercy Health St[facility]04-12-2024 Miscellaneous Notes* Quick Notes - Jimmie Jules MD - 06/25/2023 11:03 AM EDT DM-Pt doing well. Denies vaginal Bleeding, Leaking fluid, or regular Contractions. Pt reports good movement- has slowed down. Physical Exam: Gen: female in no apparent distress Abd: soft, Gravid. Non tender to palpation. See flow sheet A/P: @ 35.3 weeks 1) fasting blood sugars 80-90s , 1hr PP now 170s-180s (better then previous) can't do regular insulin was dropping too low despite diet changes etc. 2) hunger cues not there- does not feel hungry- reviewed eating small frequent meals- higher protein- discussed impact on BS by not eating. 3) last hg after iron 10.6. 4) continue Insulin at 26 NPH at night and 40 NPH in morning. 5) IOL scheduled 37 weeks 6) BPP today 08/20 -2 for breathing , NST today 7) next appointment Wednesday - NST scheduled. Jimmie Lopez MD documented in this encounterMer[facility]04-12-2024 Instructions* Patient Instructions* Erika Calderón MA - 06/25/2023 10:12 AM EDT SEQUENTIAL SCREENINGS [facility] offers sequential screenings for women who are interested in screenings for chromosomal abnormalities and certain defects during a . The sequential screen combinesultrasound and blood tests to determine the risk [...] this testing. It will require an appointment withour bottle house quality control technician. This is not an ultrasound performed [...] the above symptoms, contact our office at [phone] and ask to speak with anurse. After hours, you can call doctors registry at [phone] OR call [facility] at [phone] ask to have the doctor educational psychology professor paged. If you consider this an emergency, dial 2--7 or go to your nearest emergency department. NEED HELP? Are you dealing with a violent or abusive relationship? Are you a victim of rape or sexual assult? Call [facility] ([place]) 24 hour Crisis Hotline: 221.796.1219 or 687-249-8263. MANUAL Your Guide to a Healthy manual is now on-line. Visit [email or web address] to download your free copy documented in this encounterMer[facility]04-08-20[facility] History of Present illness Narrative* Angie Mora MD - 06/21/2023 1:49 PM EDT NST SUMMARY PROVIDER ASSESSMENT AND INTERPRETATION Seda De León is a 27 year old female, , who is at 34w6d with an BELEM of 07/27/2023, by Last Menstrual Period dating method. Indications for NST: Diabetes - Insulin Controlled and Obesity Baseline: 140 Variability: Moderate Accelerations: Present 15 X 15 Decelerations: None Contractions: TOCO: Irregular Interpretation: Category I and Reactive SIGNATURE: Angie Mora MD documented in this encounterMercy [facility]04-08-2024 Miscellaneous Notes* Quick Notes - Angie Mora MD - 06/21/2023 1:44 PM EDT RR- VB No. LOF No. CTXS No. Movement: present. Other c/o: denies visual changes, mild DIEGO for 4 weeks, not worsening Medication list reviewed. Physical Exam See Flow Sheet Abd: soft, nontender, gravid Ext: edema: Trace, symetrical: Yes, DTRS: 2+, clonus: Absent A/P 34w6d Estimated Date of Delivery: 07/27/23 GDMA2- increase insulin 16 qhs and 40 in am. When used short acting BP dropped too low, cont. antepartum testing, NST today BP stable, no evidence of preeclampsia, monitor closely, call or return for signs of preeclampsia. check labs today anemia-s/p iron infusions, last CBC hgb 9.7 plan delivery at 37 weeks- scheduled Angie Mora M.D. documented in this encounterMercy [facility] St[facility]04-08-2024 Instructions* Patient Instructions* Yee Egan LPN - 06/21/2023 1:18 PM EDT SEQUENTIAL SCREENINGS [facility] offers sequential screenings for women who are interested in screenings for chromosomal abnormalities and certain defects during a . The sequential screen combinesultrasound and blood tests to determine the risk [...] this testing. It will require an appointment withour bottle house quality control technician. This is not an ultrasound performed [...] the above symptoms, contact our office at [phone] and ask to speak with anurse. After hours, you can call doctors registry at [phone] OR call [facility] at [phone] ask to have the doctor educational psychology professor paged. If you consider this an emergency, dial 9-1- or go to your nearest emergency department. NEED HELP? Are you dealing with a violent or abusive relationship? Are you a victim of rape or sexual assult? Call [facility] ([place]) 24 hour Crisis Hotline: 143.880.1637 or 746-878-3099. MANUAL Your Guide to a Healthy manual is now on-line. Visit [email or web address] to download your free copy documented in this encounterMer[facility]04-01-2024 Miscellaneous Notes* Quick Notes - Inna Garcia MD - 06/14/2023 3:49 PM EDT S: Seda De León is a 27 year old female who presents at 07/27/2023, by Last Menstrual Period for a routine visit. Denies headache, visual changes, chest pain, shortness of breath, vaginal bleeding, leakage of fluid, or dysuria. Feeling well, no complaints. Fasting Blood sugars improved with NPH and snack QHS. 100 or less. AM NPH 20 units. No longer over 200 for PP but still not controlled. Increasing am NPH to 30 units. O: See flow sheet Gen: No apparent distress Abd: Gravid, nontender Reactive NST- lots of movement. Took extra time ASSESSMENT/PLAN: 1. 33 weeks gestation of - ICD9: V22.2, ICD10: Z3A.33 (primary diagnosis) - URINE OB DIP B/O 2. Insulin controlled gestational diabetes mellitus (GDM) in third trimester - ICD9: 648.83, ICD10:O24.414 Increased NPH Am to 30 untis - URINE OB DIP B/O 3. Polyhydramnios in third trimester complication, single or unspecified fetus - ICD9: 657.03, ICD10: O40.3XX0 BPP wednesday - URINE OB DIP B/O Inna Garcia MD documented in this encounterMercy [facility] St[facility]04-01-2024 Instructions* Patient Instructions* Stephane ErikaYINKA - 06/14/2023 2:11 PM EDT SEQUENTIAL SCREENINGS [facility] offers sequential screenings for women who are interested in screenings for chromosomal abnormalities and certain defects during a . The sequential screen combinesultrasound and blood tests to determine the risk [...] this testing. It will require an appointment withour bottle house quality control technician. This is not an ultrasound performed [...] the above symptoms, contact our office at [phone] and ask to speak with anurse. After hours, you can call doctors registry at [phone] OR call [facility] at [phone] ask to have the doctor educational psychology professor paged. If you consider this an emergency, dial 9-1-1 or go to your nearest emergency department. NEED HELP? Are you dealing with a violent or abusive relationship? Are you a victim of rape or sexual assult? Call [facility] ([place]) 24 hour Crisis Hotline: 271.932.7020 or 347-144-4407. MANUAL Your Guide to a Healthy manual is now on-line. Visit [email or web address] to download your free copy documented in this encounterMercy [facility]. [facility]03-28-2024 Telephone encounter Note * Telephone Encounter - Leonela Carreon LPN - 06/10/2023 2:45 PM EDT Electronic PA submitted. Will await further response from pts insurance. Leonela Carreon LPN [facility]03-28-2024 Discharge summary Author Inna Garcia [facility] June 10, 2023 8:51am Note Date/Time June 10, 2023 8:4 0am [facility] Medical Records Department [address] [place] [address] Discharge Summary 06/10/23 0840 MR#: [id number] Acct: [id number] Name: SEDA DE LEÓN Rep #:[id number] : 1995 27 From: Inna Garcia MD PCP: SHAYY Alejandro Status:ADM I NO [facility] Prov[facility] Date of Admission: 06/09/23 Date of Discharge: 06/10/23 Primary Care Physician: SHAYY Alejandro Reason For Visit: BLOOD SUGAR Diagnosis Discharge Diagnosis (1) Gestational diabetes requiring insulin: Status: Acute Code(s): O24.414 - Gestational diabetes mellitus in , insulin controlled Plan: NPH 20 am and 10 QHS plan d/c after imaging scheduler. Has office appointments scheduled (2) 33 weeks gestation of : Status: Acute Code(s): Z3A.33 - 33 weeks gestation of Medications at Discharge Home Medications vit no.95-ferrous fumarate 28 mg-folic acid 800 mcg tablet ( Multivitamins) 1 ea PO DAILY 02/14/18 acetaminophen 500 mg tablet 500 mg PO Q4H PRN PRN Pain Or Fever 05/24/19 aspirin 81 mg tablet,delayed release (Adult Low Dose Aspirin) 81 mg PO DAILY 05/17/23 ferrous sulfate 325 mg (65 mg iron) tablet (Feosol) 325 mg PO DAILY 05/17/23 insulin NPH isoph U-100 human 100 unit/mL (3 mL) subcutaneous pen (Humulin N NPHU-100 Insulin KwikPen) 10 unit (0.1 mL) subcut QHS #0 mL 06/10/23 insulin NPH isoph U-100 human 100 unit/mL (3 mL) subcutaneous pen (Humulin N NPHU-100 Insulin KwikPen) 20 unit (0.2 mL) subcut BREAKFAST #0 mL 06/10/23 Hospital Course Operations None Procedures None Summary of Care Provided Minutes Spent on Discharge: 25 Hospital Course: Admitted for DIEGO and elevated BG. BG decreased with short acting insulin. Highestin patient BG 121. Improved FBG with QHS snack. New plan - NPH 20 in am and 10 QHS with snack Physical Exam Const alert and no apparent distress General Appearance: cooperative HEENT normocephalic Resp normal respiratory effort Cardio regular rate GI soft to palpation GI Narrative: gravid, nontender, appropriate for gestational age Extremity no calf tenderness General Extremity: edema Skin no wounds Rashes: No rashes noted Psych activity/motor behavior normal Weight / BMI Weight Weight: 85.275 kg ABG / Lab / Microbiology Data Laboratory: Laboratory Results - last 24 hr 06/09/23 09:30: POC Glucose 232 H 06/09/23 13:47: POC Glucose 69 L 06/09/23 14:06: POC Glucose 121 H 06/09/23 15:02: POC Glucose 96 06/09/23 19:31: POC Glucose 83 06/09/23 21:58: POC Glucose 58 L 06/09/23 22:17: POC Glucose 90 06/10/23 03:01: POC Glucose 71 L 06/10/23 06:02: POC Glucose 69 L D/C Instructions Discharge Diet: No restrictions and Carb Control Diet Discharge Activity: Return to Normal Activity Additional Instructions: call office for low BG or BG over 200 Please Follow Up With: Inna Garcia MD When: 06/14/23 - scheduled Meaningful Use Info Meaningful Use Diagnoses (Choose all that apply): None applicable Discharge Plan Admission Admit Date/Time: 06/09/23 11:00 Attending Provider: Inna Garcia Primary Care Provider: Natalie Blum Instructions Additional Instructions / Restrictions: NPH 20 units with breakfast. 10 units qhs. QHS snack Discharge Orders/Prescriptions Prescriptions: New Humulin N NPH Insulin KwikPen 100 unit/mL (3 mL) Insulin Pen 20 unit subcut BREAKFAST Qty: 0 0RF Humulin N NPH Insulin KwikPen 100 unit/mL (3 mL) Insulin Pen 10 unit subcut QHS Qty: 0 0RF Continued PNV cmb#95-ferrous fumarate-FA [ Multivitamins] 1 EACH tablet 1 ea PO DAILY acetaminophen 500 MG tablet 500 mg PO Q4H PRN PRN (Reason: Pain Or Fever) aspirin [Adult Low Dose Aspirin] 81 mg tablet,delayed release (DR/EC) 81 mg PO DAILY ferrous sulfate [Feosol] 325 mg (65 mg iron) tablet 325 mg PO DAILY Discontinued Humulin N NPH Insulin KwikPen 100 unit/mL (3 mL) insulin pen 15 unit subcut DAILY Referrals / Follow Up: Natalie Blum PA [Primary Care Provider] - Disposition Disposition (needs filled in before D/C Order can be placed): Home, Self Care 06/10/23 0851 <Electronically signed by Inna Garcia MD> Cosigner Signature (if applicable): CC: Dr. Inna Garcia MD; SHAYY Alejandro~ Signed [facility] Work Phone: 1(647) 567-511503-28-2024 Progress note Author Inna Garcia [facility] June 10, 2023 8:28am Note Date/Time June 10, 2023 8:0 4am [facility] Medical Records Department [address] [place] [address] Progress Note - OBGYN 06/10/23 0803 MR#: [id number] Acct: [id number] Name: SEDA DE LEÓN Rep #:[id number] : 1995 27 From: Inna Garcia MD PCP: SHAYY Alejandro Status:ADM I NO [facility] Subjective Subjective Over night glucose 71 at 3 am. Snack at 10 with a qhs BG of 58. Fasting this am 69. Asymptomatic. Ordering breakfast. Discussed QHS snack and just NPH but 2 times a day. Mechanical Lead coming to see her this am. Objective Data Objective Data Vital Signs: Vital Signs Temp Pulse Resp BP Pulse Ox 97.4 F L 71 16 111/75 98 06/10/23 03:03 06/10/23 03:04 06/10/23 03:03 06/10/23 03:04 06/10/23 03:03 Weight: 85.275 kg Intake & Output: Intake and Output for Last 24 Hours 06/08/23 06/09/23 06/10/23 23:59 23:59 23:59 Intake Total 120 / 120 Balance 120 / 120 Lab / Micro Data Labs: Laboratory Results - last 24 hr 06/09/23 09:30: POC Glucose 232 H 06/09/23 13:47: POC Glucose 69 L 06/09/23 14:06: POC Glucose 121 H 06/09/23 15:02: POC Glucose 96 06/09/23 19:31: POC Glucose 83 06/09/23 21:58: POC Glucose 58 L 06/09/23 22:17: POC Glucose 90 06/10/23 03:01: POC Glucose 71 L 06/10/23 06:02: POC Glucose 69 L ROS Constitutional Constitutional: Denies headache(s) Eyes Eyes: Denies change in vision ENT HEENT: Reports systems reviewed and no addt'l complaints, except as documented Cardiovascular Cardiovascular: Denies chest pain, dyspnea or lightheadedness Respiratory/Chest Respiratory/Chest: Denies dyspnea Gastrointestinal Gastrointestinal: Denies change in bowel habits Genitourinary Genitourinary: Denies burning urination or genital lesions Integumentary Integumentary: Denies rash Neurologic Neurologic: Denies confusion, dizziness, headache(s), numbness or weakness Physical Exam Const alert and oriented x3 General Appearance: cooperative and comfortable HEENT normocephalic and head/scalp atraumatic Eyes PERRL and EOMs intact bilaterally Neck full ROM Resp normal respiratory effort Extremity normal to inspection and full ROM Neuro oriented x3 and CN's II-XII intact bilaterally Psych mental status grossly normal NST FHR Rate Baby A NST Reactive:: Yes Assessment & Plan (1) Gestational diabetes requiring insulin: PLAN: NPH 20 am and 10 QHS plan d/c after imaging scheduler. 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 Started on NPH about 2-3 weeks ago, however did not actually start it until last week. Dose prescribed was 10 but but was actually taking 15 units with breakfast. Prior blood o was normal fastings and 170-180 postpradials. After starting NPH fasting increased to 180s and PP was over 200. Overall did not fell good and could tell that her BG was high. Short acting insulin was added 2 days ago however the pharmacy wouldn't fill it and she did not start. Upon arrival she had already taken her NPH. BG was 232. Original planto add short acting with meals was followed and she was given given breakfast with 20 units. Calculated based on weight and gestational age. Her PP was 69. However, she did not eat the entire meal. She had half a bowl of cheerios and half a yogurt. She was given juice and it increased to 121 and an hour after 96.Next dose decreased as a result and PP was 86. She also ate a smaller meal. Patient states she is eating her daily amount of carbs but is doing so over 6-7 meals instead of 3. QHS was 58 treated with juice and jello. Her headache improved with decreasing BG and tylenol. Vital have been normal. Maternal Data Information BELEM Calculator Estimated Delivery Date Method Current WG Current Estimate 07/27/23 Manual 33w 2d Final BELEM: 07/27/23 Gestational age: 33+1 PFSH [facility] Medical History Gestational diabetes Gestational diabetes Home Medications vit no.95-ferrous fumarate 28 mg-folic acid 800 mcg tablet ( Multivitamins) 1 ea PO DAILY 02/14/18 [History Last Taken 10/16/19] acetaminophen 500 mg tablet 500 mg PO Q4H PRN PRN Pain Or Fever 05/24/19 [History Last Taken 05/24/19] aspirin 81 mg tablet,delayed release (Adult Low Dose Aspirin) 81 mg PO DAILY 05/17/23 [History Last Taken Unknown] ferrous sulfate 325 mg (65 mg iron) tablet (Feosol) 325 mg PO DAILY 05/17/23 [History Last Taken Unknown] insulin NPH isoph U-100 human 100 unit/mL (3 mL) subcutaneous pen (Humulin N NPHU-100 Insulin KwikPen) 15 unit subcut DAILY 06/09/23 [History Last Taken Unknown] Allergy/AdvReac Type Severity Reaction Status Date / Time cefdinir Allergy Vomiting Verified 06/09/23 09:47 morphine Allergy Rash Verified 06/09/23 09:47 peanut Allergy Anaphylaxis Verified 06/09/23 09:47 Social History household members: children Smoking Status: Never smoker History Elective abortions Hx Para 1 Spontaneous abortions Hx # Term Pregnancies Ectopic pregnancies Hx # Pregnancies Multiple births # of living children NST FHR Rate Baby A Variability:: Moderate Accelerations:: 15 x 15 Decelerations:: None NST Reactive:: Yes FHR Category:: Category I Uterine Activity:: quiet ROS Eyes Eyes: Denies blurry vision ENT HEENT: Reports headache(s) Cardiovascular Cardiovascular: Reports none; Denies chest pain at rest, chest pain with activity or dizziness Respiratory/Chest Respiratory/Chest: Denies cough or dyspnea Gastrointestinal Gastrointestinal: Reports none and other; Denies diarrhea or vomiting Genitourinary Genitourinary: Denies dysuria Musculoskeletal Musculoskeletal: Reports none Integumentary Integumentary: Reports none; Denies rash Neurologic Neurologic: Reports weakness; Denies dizziness, headache(s) or other visual disturbances Psychiatric Psychiatric: Reports none Vital Signs Vital Signs Vital Signs: 06/09/23 09:29 06/09/23 09:29 06/09/23 09:30 Temperature Temperature Source Pulse Rate 134 H 124 H Respiratory Rate Blood Pressure 112/70 BP Systolic 112 BP Diastolic 70 Pulse Ox 06/09/23 09:30 06/09/23 09:35 06/09/23 09:35 Temperature Temperature Source Pulse Rate 116 H Respiratory Rate Blood Pressure BP Systolic BP Diastolic Pulse Ox 98 98 06/09/23 09:40 06/09/23 09:40 06/09/23 09:45 Temperature Temperature Source Pulse Rate 112 H 115 H Respiratory Rate Blood Pressure BP Systolic BP Diastolic Pulse Ox 98 06/09/23 09:45 06/09/23 09:50 06/09/23 09:50 Temperature Temperature Source Pulse Rate 114 H Respiratory Rate Blood Pressure BP Systolic BP Diastolic Pulse Ox 98 98 06/09/23 09:55 06/09/23 09:55 06/09/23 10:00 Temperature Temperature Source Pulse Rate 104 H 101 H Respiratory Rate Blood Pressure BP Systolic BP Diastolic Pulse Ox 98 06/09/23 10:00 06/09/23 10:05 06/09/23 10:05 Temperature Temperature Source Pulse Rate 99 Respiratory Rate Blood Pressure BP Systolic BP Diastolic Pulse Ox 98 98 06/09/23 10:10 06/09/23 10:10 06/09/23 10:15 Temperature Temperature Source Pulse Rate 96 97 Respiratory Rate Blood Pressure BP Systolic BP Diastolic Pulse Ox 98 06/09/23 10:15 06/09/23 10:20 06/09/23 10:20 Temperature Temperature Source Pulse Rate 89 Respiratory Rate Blood Pressure BP Systolic BP Diastolic Pulse Ox 98 97 06/09/23 10:25 06/09/23 10:25 06/09/23 10:30 Temperature Temperature Source Pulse Rate 90 91 Respiratory Rate Blood Pressure BP Systolic BP Diastolic Pulse Ox 98 06/09/23 10:30 06/09/23 14:05 06/09/23 14:05 Temperature Temperature Source Pulse Rate 88 Respiratory Rate Blood Pressure 118/69 BP Systolic 118 BP Diastolic 69 Pulse Ox 97 06/09/23 15:52 06/09/23 15:52 06/09/23 19:32 Temperature Temperature Source Pulse Rate 81 Respiratory Rate Blood Pressure 107/60 113/76 BP Systolic 107 113 BP Diastolic 60 76 Pulse Ox 06/09/23 19:32 06/09/23 19:31 06/09/23 19:31 Temperature Temperature Source Pulse Rate 90 92 Respiratory Rate Blood Pressure BP Systolic BP Diastolic Pulse Ox 98 06/09/23 19:32 06/09/23 19:32 06/09/23 19:32 Temperature Temperature Source Temporal Pulse Rate 93 Respiratory Rate 16 Blood Pressure BP Systolic BP Diastolic Pulse Ox 06/09/23 19:32 06/09/23 19:32 06/10/23 00:06 Temperature 97.9 F Temperature Source Temporal Pulse Rate Respiratory Rate Blood Pressure BP Systolic BP Diastolic Pulse Ox 98 06/10/23 00:06 06/10/23 00:06 06/10/23 00:06 Temperature 97.3 F L Temperature Source Pulse Rate Respiratory Rate 16 Blood Pressure BP Systolic BP Diastolic Pulse Ox 98 06/10/23 00:06 06/10/23 00:06 06/10/23 00:07 Temperature Temperature Source Pulse Rate 75 Respiratory Rate Blood Pressure 86/51 L 112/76 BP Systolic 86 112 BP Diastolic 51 76 Pulse Ox 06/10/23 00:07 06/10/23 03:03 06/10/23 03:03 Temperature Temperature Source Temporal Pulse Rate 77 74 Respiratory Rate Blood Pressure BP Systolic BP Diastolic Pulse Ox 06/10/23 03:03 06/10/23 03:03 06/10/23 03:03 Temperature 97.4 F L Temperature Source Pulse Rate Respiratory Rate 16 Blood Pressure BP Systolic BP Diastolic Pulse Ox 98 06/10/23 03:04 06/10/23 03:04 Temperature Temperature Source Pulse Rate 71 Respiratory Rate Blood Pressure 111/75 BP Systolic 111 BP Diastolic 75 Pulse Ox Weight Weight: 85.275 kg Labs Labs Labs: Blood Type A NEGATIVE Antibody Screen NEGATIVE Hct 30.5 % (37-47) L Hgb 9.3 g/dL (12.0-15.0) L Obstetrics Ultrasound Group B Strep DNA Negative (Negative) Rhogam given: Yes Assessment & Plan (1) Gestational diabetes requiring insulin: PLAN: adding short acting insulin to regimen and fill will hospital pharmacy (2) 33 weeks gestation of : (3) Headache in , antepartum: PLAN: tylenol hydration and BG control 06/10/23 0629 <Electronically signed by Inna Garcia MD> Cosigner Signature (if applicable): CC: Dr. Inna Garcia MD; SHAYY Alejandro~ Signed [facility] Work Phone: [phone] Telephone encounter Note* Telephone Encounter - Jenifer Jeffery RN - 06/09/2023 9:44 AM EDT Left message on pharmacy voicemail for them to call us or send us information regarding Insulin coverage,Several attempts by phone to reach pharmacy with long wait times [facility]03-27-2024 Telephone encounter Note* Telephone Encounter - Jenifer Jeffery RN - 06/09/2023 9:13 AM EDT Attempted to call [facility], was on hold for 15 minutes-will attempt again [facility]03-27-2024 Telephone encounter Note* Telephone Encounter - Jenifer Jeffery RN - 06/09/2023 8:48 AM EDT DIscussed with Dr Garcia. Patient to go to [facility]. She is instructed not to drive. She is to have her father drive her. I called Iveth AT [facility] L&D. Please call orders, Dr Gutierrez. Updated Episode faxedto [facility]03-27-2024 Telephone encounter Note* Telephone Encounter - Jenifer Jeffery RN - 06/09/2023 8:30 AM EDT PATIENT CALLING IN. States she has been unable to mixing picker tender Novalin R due to Insurance issues. Took 15 units of NPH today after her FBS was 248. Did not eat breakfast. Took BS again 1 hour later and itwas 253. States she feels dizzy, hot, heart racing, nauseated and headache. Rates the pain a 7 on the pain scale. Patient states she is with her father and he can drive her to hospital if necessary. Blood sugars from yesterday: FBS;108 1 hour PP:187 Snack @ 10am-1 hour PP:162 lunch 1 hour PP:201 DInner 1 hour PP:176 Next appointment-BPP on Wednesday and NST and appt with Dr Garcia [facility]03-25-2024 Miscellaneous Notes* Quick Notes - Inna Garcia MD - 06/07/2023 11:03 AM EDT S: Seda De León is a 27 year old female who presents at 07/27/2023, by Last Menstrual Period for a routine visit. Denies headache, visual changes, chest pain, shortness of breath, vaginal bleeding, leakage of fluid, or dysuria. Feeling well, no complaints. Start NPH last week. Am only. Has been taking 15 units daily but has not seen an improvement in BG control. Discussed adding short acting insulin as well with meals. O: See flow sheet Gen: No apparent distress Abd: Gravid, nontender NST reactive ASSESSMENT/PLAN: 1. Insulin controlled gestational diabetes mellitus (GDM) in third trimester - ICD9: 648.83, ICD10:O24.414 (primary diagnosis) Need calculated with [email or web address] Novolin R 20 units with breakfast and 15 units with dinner. 2. 32 weeks gestation of - ICD9: V22.2, ICD10: Z3A.32 Repeat CBS next visit for anemia - URINE OB DIP B/O 3. Polyhydramnios in third trimester complication, single or unspecified fetus - ICD9: 657.03, ICD10: O40.3XX0 Weekly NST and BPP Kick counts - URINE OB DIP B/O Inna Garcia MD documented in this encounterMer[facility] Instructions* Patient Instructions* Erika Calderón MA - 06/07/2023 9:47 AM EDT SEQUENTIAL SCREENINGS The [facility] offers sequential screenings for women who are interested in screenings for chromosomal abnormalities and certain defects during a . The sequential screen combinesultrasound and blood tests to determine the risk [...] this testing. It will require an appointment withour bottle house quality control technician. This is not an ultrasound performed [...] the above symptoms, contact our office at [phone] and ask to speak with anurse. After hours, you can call doctors registry at [phone] OR call [facility] at [phone] ask to have the doctor educational psychology professor paged. If you consider this an emergency, dial 8-0-2 or go to your nearest emergency department. NEED HELP? Are you dealing with a violent or abusive relationship? Are you a victim of rape or sexual assult? Call [facility] ([facility] 24 hour Crisis Hotline: 391.466.4669 or 257-103-0840. MANUAL Your Guide to a Healthy manual is now on-line. Visit [email or web address] to download your free copy documented in this encounterMer[facility]03[facility]2024 Miscellaneous Notes* Quick Notes - Inna Garcia MD - 06/01/2023 4:10 PM EDT S: Seda De León is a 27 year old female who presents at 07/27/2023, by Last Menstrual Period for a routine visit. Denies headache, visual changes, chest pain, shortness of breath, vaginal bleeding, leakage of fluid, or dysuria. Feeling well, no complaints. Took her first dose of insulin this am. Issues obtaining supplies. Trying to follow a DM diet. Blood sugar was still high PP this am. Reactive NST. Unable to come Wednesday for BPP. Next NST on wednesday O: See flow sheet Gen: No apparent distress Abd: Gravid, nontender ASSESSMENT/PLAN: 1. 32 weeks gestation of - ICD9: V22.2, ICD10: Z3A.32 (primary diagnosis) - URINE OB DIP B/O - TYPE + SCREEN - RHO(D) IMMUNE GLOBULIN 1,500 UNIT (300 MCG)/2 ML INJECTION SYRINGE 2. Supervision of high risk in second trimester - ICD9: V23.9, ICD10: O09.92 - URINE OB DIP B/O - TYPE + SCREEN - RHO(D) IMMUNE GLOBULIN 1,500 UNIT (300 MCG)/2 ML INJECTION SYRINGE 3. Insulin controlled gestational diabetes mellitus (GDM) in third trimester - ICD9: 648.83, ICD10:O24.414 - URINE OB DIP B/O - TYPE + SCREEN - RHO(D) IMMUNE GLOBULIN 1,500 UNIT (300 MCG)/2 ML INJECTION SYRINGE 4. History of gastric bypass - ICD9: V45.86, ICD10: Z98.84 - URINE OB DIP B/O - TYPE + SCREEN - RHO(D) IMMUNE GLOBULIN 1,500 UNIT (300 MCG)/2 ML INJECTION SYRINGE 5. History of gestational hypertension - ICD9: V13.29, ICD10: Z87.59 - URINE OB DIP B/O - RHO(D) IMMUNE GLOBULIN 1,500 UNIT (300 MCG)/2 ML INJECTION SYRINGE Inna Garcia MD documented in this encounterMer[facility]03[facility] Nurse Note* Inna Horne RN - 06/01/2023 3:40 PM EDT The patient is here for an injection of Rhogam. Dose: 300 mcg Amount wasted: none. Route: Intramuscular Site: right upper quadrant gluteus World Travel Counselor: CSL Behring Lot #: see MAR Expiration Date: see MAR The date due for the next injection is n/a Inna Horne RN documented in this encounterMer[facility] Instructions* Patient Instructions* Donna Miguel MA - 06/01/2023 1:58 PM EDT SEQUENTIAL SCREENINGS The [facility] offers sequential screenings for women who are interested in screenings for chromosomal abnormalities and certain defects during a . The sequential screen combinesultrasound and blood tests to determine the risk [...] this testing. It will require an appointment withour bottle house quality control technician. This is not an ultrasound performed [...] the above symptoms, contact our office at [phone] and ask to speak with anurse. After hours, you can call doctors registry at [phone] OR call [facility] at [phone] ask to have the doctor educational psychology professor paged. If you consider this an emergency, dial 9--4 or go to your nearest emergency department. NEED HELP? Are you dealing with a violent or abusive relationship? Are you a victim of rape or sexual assult? Call [facility] ([facility] 24 hour Crisis Hotline: 715.289.4174 or 316-389-1999. MANUAL Your Guide to a Healthy manual is now on-line. Visit [email or web address] to download your free copy documented in this encounterMer[facility]03[facility]2024 Miscellaneous Notes* Telephone Encounter - Polo Soto RN - 06/01/2023 8:30 AM EDT 32w0d Patient does twice weekly testing. She has NST scheduled with Dr. Garcia this afternoon. Called because she had to cancel her BPP this Wednesday d/t a . There are no other openings on for a BPP. Is it okay for her to skip this week and return on Tuesday 06/06 for her next NST as scheduled? Can discuss with her when she is here for her visit if needed. Polo Soto RN documented in this encounterMer[facility]03-18-2024 Miscellaneous Notes* Telephone Encounter - Jimmie Jules MD - 05/31/2023 8:24 AM EDT ordered * Telephone Encounter - Inna Horne RN - 05/31/2023 8:08 AM EDT Patient received her insulin, but it did not come with pen needles. RX pending. Inna Horne RN documented in this encounterMer[facility]03-14-2024 Miscellaneous Notes* Telephone Encounter - Leonela Carreon LPN - 05/27/2023 4:52 PM EDT Received approval for insulin. Pt notified. Leonela Carreon LPN * Telephone Encounter - Leonela Carreon LPN - 05/27/2023 10:26 AM EDT Electronic PA submitted for insulin. Will await further response from pt's insurance. Leonela Carreon LPN documented in this encounterMer[facility]03-13-2024 Miscellaneous Notes* Quick Notes - Jimmie Jules MD - 05/26/2023 3:55 PM EDT DM-Pt doing well. Denies vaginal Bleeding, Leaking fluid, or regular Contractions. Pt reports good movement.Saw Diabetic nutrition - was told to eat more CHO- reports BS went even higher and patient felt worse. Physical Exam: Gen: female in no apparent distress Abd: soft, Gravid. Non tender to palpation. See flow sheet A/P: @ 31.1 weeks 1) discussed nutrition - decrease simple CHO- increase fiber content. 2) did not bring BS log but states all fastings [id number] and 1hr PP 150s-170s. 3) will start NPH in morning- advised will likely need Regular with some meals but needs to keep track and bring log next week. 4) will needs weekly BPPs /NSTs- NSTs ordered. As scheduling BPPs now is limited. 5) Mild POLY on ultrasound 6)continue IV IRON 7) continue ASA- h/o GHTN Jimmie Landry-MD Shania documented in this encounterMercy Health [facility]03-13-2024 Instructions* Patient Instructions* Erika Calderón MA - 05/26/2023 2:40 PM EDT SEQUENTIAL SCREENINGS The [facility] offers sequential screenings for women who are interested in screenings for chromosomal abnormalities and certain defects during a . The sequential screen combinesultrasound and blood tests to determine the risk [...] this testing. It will require an appointment withour bottle house quality control technician. This is not an ultrasound performed [...] the above symptoms, contact our office at [phone] and ask to speak with anurse. After hours, you can call doctors registry at [phone] OR call [facility] at [phone] ask to have the doctor educational psychology professor paged. If you consider this an emergency, dial 1-5-3 or go to your nearest emergency department. NEED HELP? Are you dealing with a violent or abusive relationship? Are you a victim of rape or sexual assult? Call [facility] ([place]) 24 hour Crisis Hotline: 610.499.6114 or 459-535-3965. MANUAL Your Guide to a Healthy manual is now on-line. Visit [email or web address] to download your free copy documented in this encounterMercy [facility]03-12-2024 Instructions* Patient Instructions* Susi Pleitez, GAYATHRI - 05/25/2023 2:53 PM EDT Vitamin/minerals: Bariatric including 300 mg/day DHA, calcium citrate 1200 mg (divided doses) with additional 600 mg starting in second trimester: Nutrients that are specific for and should be included in your bariatric MVI OR includes: o Folic acid: 0.4-1.0 mg/day (400-1000 mg) during , and at least 4-6 weeks after , or for the duration if you are . - Iron: Continue to aim for 45-60 mg per day o Vitamin D: Continue to aim for 3,000 international unit(s) daily o Choline: 450 milligrams - If taking a bariatric MVI, may need to consider adding an additional Choline supplement. o DHA: If taking a bariatric MVI, consider adding an additional 300 mg DHA daily. If taking a , it might include already, so please double check. Eating protein first at every meal with a goal of 77 grams per day (1.2 grams/kg ideal weight), complex carbohydrates 50-60% of total calories, not to exceed 175 grams/day; no limit fat intake; breakfast keep to 1-2 carb choices 15-30 grams; include 3 snacks of 15 grams carb and and ounce of protein; Keep carbs whole grain and high fiber, avoid sugars and refined grains, one fruit only at a time Consider including beans/lentils, peas, edamame for healthy carb and protein o 3rd Trimester: 450 additional calories 64-80 oz of calorie-free, caffeine-free, no carbonation, no alcohol containing beverages Physical activity- Cardio 150-250 minutes/week and strength/resistance training 2x per week for 10-20 minutes/session Weight gain recommendations: o BMI 30+: 0.5 lb per week weight gain during the second and third trimester with a total weight gain recommendation of 11-18 lbs. Continue to practice these: o Separate eating and drinking by 30 minutes; Chew your food 20-30x per bite; o Meals should last 30 minutes. General Interventions: Be smart about food safety: women are at higher risk for food poisoning. Follow these strategies to keep you and your baby safe: Make sure to thoroughly cook all meat, poultry, and seafood. Lunch meat, deli meats, and hot dogs should be thoroughly reheated (until steaming hot) Avoid sushi, unpasteurized milk or juice, sun tea and unpasteurized soft cheeses. Wash hands before eating or preparing food. Keep the counters and cooking areas clean. Diluted chlorine bleach may be used as an affordable wayto sanitize kitchen counters (1 tsp unscented chlorine bleach to 1 quart of water). Eat food rich in omega-3's: Fish rich in omega-3 fatty acids like tuna, and salmon can be beneficial for the eye and brain health of your developing baby. These types of fish have lower concentrations of mercury. It is safe to eat 2-3 servings per week (about 4oz per serving). Non-fish sources of [place] 3's include walnuts and walnut oil, ground flaxseed and flaxseed oil, hemp and forrest seeds, and soybean oil. Avoid fish high in mercury like shark, chayo mackerel, swordfish, tilefish, marlin, orange roughly, and bigeye tuna. -Be mindful of cravings: listen to your cravings, but practice moderation. If you crave non-food items like ice, cornstarch, or dirt, tell your booth usher. This may be a sign of a nutrient deficiency. Eat healthy during morning sickness: Feeling nauseous during your first trimester is a common occurrence. Having an empty stomach can make nausea worse. Eating 6 small meals throughout the day instead of 3 big meals can give your stomach an amount of food that is easier to digest. Also, a small amount of srinivas (in the form of srinivas root, srinivas arianna, gingersnaps, srinivas tea, or hard candy) can help settle your stomach. BMI scheduling [phone] - schedule with bariatric medical of doctor or RESIDENT PROGRAMS ASSISTANT documented in this encounterMercy Health [facility]03[facility] History of Present illness Narrative* Susi Pleitez RD - 05/25/2023 1:42 PM EDT Nutrition Therapy Initial Assessment Nutrition Diagnosis: Altered nutrition-related lab values, related to, endocrine dysfunction and , as evidenced by elevated blood sugars . RECOMMENDED MALNUTRITION DIAGNOSIS: NO MALNUTRITION IDENTIFIED NUTRITION CARE PLAN Nutrition Intervention 05/25/2023: comprehensive nutrition education Vitamin/minerals: Bariatric including 300 mg/day DHA, calcium citrate 1200 mg (divided doses) with additional 600 mg starting in second trimester: Nutrients that are specific for and should be included in your bariatric MVI OR includes: o Folic acid: 0.4-1.0 mg/day (400-1000 mg) during , and at least 4-6 weeks after , or for the duration if you are . - Iron: Continue to aim for 45-60 mg per day o Vitamin D: Continue to aim for 3,000 international unit(s) daily o Choline: 450 milligrams - If taking a bariatric MVI, may need to consider adding an additional Choline supplement. o DHA: If taking a bariatric MVI, consider adding an additional 300 mg DHA daily. If taking a , it might include already, so please double check. Eating protein first at every meal with a goal of 77 grams per day (1.2 grams/kg ideal weight), complex carbohydrates 50-60% of total calories, not to exceed 175 grams/day; no limit fat intake; breakfast keep to 1-2 carb choices 15-30 grams; include 3 snacks of 15 grams carb and and ounce of protein; Keep carbs whole grain and high fiber, avoid sugars and refined grains, one fruit only at a time Consider including beans/lentils, peas, edamame for healthy carb and protein o 3rd Trimester: 450 additional calories 64-80 oz of calorie-free, caffeine-free, no carbonation, no alcohol containing beverages Physical activity- Cardio 150-250 minutes/week and strength/resistance training 2x per week for 10-20 minutes/session Weight gain recommendations: o BMI 30+: 0.5 lb per week weight gain during the second and third trimester with a total weight gain recommendation of 11-18 lbs. Continue to practice these: o Separate eating and drinking by 30 minutes; Chew your food 20-30x per bite; o Meals should last 30 minutes. General Interventions: Be smart about food safety: women are at higher risk for food poisoning. Follow these strategies to keep you and your baby safe: Make sure to thoroughly cook all meat, poultry, and seafood. Lunch meat, deli meats, and hot dogs should be thoroughly reheated (until steaming hot) Avoid sushi, unpasteurized milk or juice, sun tea and unpasteurized soft cheeses. Wash hands before eating or preparing food. Keep the counters and cooking areas clean. Diluted chlorine bleach may be used as an affordable wayto sanitize kitchen counters (1 tsp unscented chlorine bleach to 1 quart of water). Eat food rich in omega-3's: Fish rich in omega-3 fatty acids like tuna, and salmon can be beneficial for the eye and brain health of your developing baby. These types of fish have lower concentrations of mercury. It is safe to eat 2-3 servings per week (about 4oz per serving). Non-fish sources of [place] 3's include walnuts and walnut oil, ground flaxseed and flaxseed oil, hemp and forrest seeds, and soybean oil. Avoid fish high in mercury like shark, chayo mackerel, swordfish, tilefish, marlin, orange roughly, and bigeye tuna. -Be mindful of cravings: listen to your cravings, but practice moderation. If you crave non-food items like ice, cornstarch, or dirt, tell your booth usher. This may be a sign of a nutrient deficiency. Eat healthy during morning sickness: Feeling nauseous during your first trimester is a common occurrence. Having an empty stomach can make nausea worse. Eating 6 small meals throughout the day instead of 3 big meals can give your stomach an amount of food that is easier to digest. Also, a small amount of srinivas (in the form of srinivas root, srinivas arianna, gingersnaps, srinivas tea, or hard candy) can help settle your stomach. BMI scheduling [phone] - schedule with bariatric medical of doctor or RESIDENT PROGRAMS ASSISTANT Nutrition Monitoring & Evaluation: nutrition to meet needs of post RYGB August 2022 andlabs in target range Need for Follow up: 3 weeks Patient presents for initial MNT as relates to gestational diabetes at 31 weeks, third , did have GDM with previous pregnancies. Is s/p RYGB 09/04 with starting weight 260 reaching 170 lbs. Was 185 lbs at conception, was not feeling well and dropped to 170 recently started gaining to current. Had a surgery follow up one month post surgery, no other follow up in bariatric team. Prior to was taking a once daily bariatric vitamin, no additional calcium. Is food and fluids by 30 min, chewing well. Struggles to get enough protein - bothered by textures and food aromas.Fluids appropriate in type and amount. Currently taking a vitamin with additional iron. Has occasional constipation, managing with Miralax daily. Includes starch servings at dinner meal, limited carbohydrate if first part of day, overall low carbohydrate intake - less than recommended for and gestational diabetes. Fasting blood sugars in target range, post meal blood sugars above target. Is active at work working 3 days per week Patient's symptoms are: elevated blood sugars Diet History: High 70's, low 80's. Occ around 100 if high at dinner Breakfast - 6-6:30-hard boiled egg, 1-2 egg bites, Fairlife protein shake, Snack - work will be protein shakes, or part of a Czech yogurt (texture), couple cheese and cashewsor part of hard boiled Lunch - 4 oz chicken and 2 asparagus Snack - no Dinner - 5- 5:30- pasta or rice based, ground turkey; bowl with rice and beans and ground turkey; Snack - protein bar or protein drink; fruit Beverages - struggles with fluid; gatorlite sugar free (2), water, propel, total fluids: minimum 64oz, usually 80 sana oz Alcohol- no Vitamins/Supplements - with iron, plus 65 mg, magnesium (Getting iron infusions) Eat 4 x per day Bothered by meat (texture, smell) cannot do red meat Can tolerate ground turkey and chicken, pork loin/pork tenderloing, some cottage cheese (texture) Can tolerate rice better One hour post: 150-180's, occ up to 200 (after dinner) Activity: Activities of Daily Living: varies Additional Activity: Lightly active (Light exercise: planned physical activity 1-3 days/week) Walk a lot at work at [employer] Anthropometrics: Height: Last 1 Encounter Ht Readings: Date: Ht: 05/25/2023 160 cm (5' 3) Current weight: Last 1 Encounter Wt Readings: Date: Wt: 05/25/2023 84.4 kg (186 lb 2.4 oz) Body mass index is 32.97 kg/m . Resting Metabolic Rate: 1554 Malnutrition Screening Significant unintentional weight loss? No Eating less than 75% of usual intake for more than 2 weeks? No Potential Signs of Inflammation: Education Materials Provided: NCM gestational diabetes READINESS TO LEARN Cognitive ability: Alert and oriented Motivation to learn: Interested Family support: Unable to assess - Family not present Instruction provided to: Patient Patient learns best by: Individual Instruction Factors affecting learning: None Physical limitations affecting learning: None Referred/Supervised by: Shania/Shania YOUNG Billing Type: Initial Assess/15 min 3 units SIGNATURE: Susi Pleitez RD PATIENT NAME: Seda De León DATE: May 25, 2023 TIME: 1:47 PM documented in this encounterMer[facility]03[facility]24 Miscellaneous Notes* Telephone Encounter - Arabella Sanz RN - 05/20/2023 11:35 AM EST 3rd risk assessment form submitted 05/20/23 Arabella Sanz RN documented in this encounterMer[facility]03-06-2024 Miscellaneous Notes* Quick Notes - Jimmie Jules MD - 05/19/2023 8:30 AM EST DM-Pt doing well. Denies vaginal Bleeding, Leaking fluid, or regular Contractions. Pt reports good movement Physical Exam: Gen: female in no apparent distress Abd: soft, Gravid. Non tender to palpation. See flow sheet A/P: @ 30.1 weeks 1) BS log reviewed- fastings all wnl but 1 hour PP are almost all elevated 120s- 220s mostly 150s. Pt reports eats every healthy is surprised but was on insulin previously. 2) real estate financial analyst/nutrition placed 3) will notify office if BS still elevated and will start on insulin 4) RTO 2 weeks 5) growth us scheduled 6) IV IRON scheduled Jimmie Lopez MD documented in this encounterMercy [facility]03[facility] Instructions* Patient Instructions* Erika Calderón MA - 05/19/2023 7:59 AM EST SEQUENTIAL SCREENINGS The [facility] offers sequential screenings for women who are interested in screenings for chromosomal abnormalities and certain defects during a . The sequential screen combinesultrasound and blood tests to determine the risk [...] this testing. It will require an appointment withour bottle house quality control technician. This is not an ultrasound performed [...] the above symptoms, contact our office at [phone] and ask to speak with anurse. After hours, you can call doctors registry at [phone] OR call [facility] at [phone] ask to have the doctor educational psychology professor paged. If you consider this an emergency, dial 9-8-0 or go to your nearest emergency department. NEED HELP? Are you dealing with a violent or abusive relationship? Are you a victim of rape or sexual assult? Call [facility] ([place]) 24 hour Crisis Hotline: 922.191.9352 or 154-125-7976. MANUAL Your Guide to a Healthy manual is now on-line. Visit [email or web address] to download your free copy documented in this encounterMer[facility] History of Present illness Narrative* Luh Quinn RN - 05/04/2023 1:58 PM EST Patient referred to Blood Management for evaluation and treatment of pre- surgical anemia and/or iron deficiency. Non-surgical: anemia in Date of surgery: NA Medical/Surgical History: PAST MEDICAL HISTORY Diagnosis Date Anemia complicating , first trimester 03/24/2019 Asthma as a child Childhood asthma without complication 01/03/2018 01/03/2018 Not currently using Albuterol inhaler. Continue to monitor. No Hemabate. SW Concussion 2009 COVID-19 virus infection 03/26/202103/2021 Diet controlled gestational diabetes mellitus (GDM) in third trimester 08/16/2019 Gestational hypertension History of gestational hypertension 03/16/2019 Hx of gestational diabetes mellitus, not currently 05/16/2020 Mononucleosis NEGATIVE MEDICAL HISTORY normal color vision PMH - PAST MEDICAL HISTORY OF slip disc Spondylolysis of lumbar region 06/25/2011 PAST SURGICAL HISTORY Procedure Laterality Date GASTRIC BYPASS HX 08/20/2022 LAPAROSCOPY SURG CHOLECYSTECTOMY 08/30/2018 Cholecystectomy, lap Other significant Medical/Surgical history: - Nutritional deficiencies - Gastric bypass Current Outpatient Medications Medication Sig ferrous sulfate 325 mg (65 mg iron) tablet Take 325 mg by mouth once daily. oxymetazoline (AFRIN, OXYMETAZOLINE,) 0.05 % nasal spray Use 2-3 Sprays in each nostril two times aday. Use as directed. For a maximum of 3 (three) days. guaiFENesin (MUCINEX) 600 mg 12 hr tablet Take 2 tablets by mouth two times a day. BABY ASPIRIN ORAL Take 81 mg by mouth once daily. vit/iron fum/folic ac (-FOLIC ACID ORAL) Take by mouth. acetaminophen (TYLENOL) 325 mg tablet Take 650 mg by mouth every 6 hours as needed. No current facility-administered medications for this visit. Current medications that may affect iron absorption and/or blood loss: - Aspirin Baseline laboratory values: WBC (k/uL) Date Value 04/29/2023 10.74 RBC (m/uL) Date Value 04/29/2023 3.91 Hemoglobin (g/dL) Date Value 04/29/2023 9.9 (L) Hematocrit (%) Date Value 04/29/2023 32.8 (L) MCV (fL) Date Value 04/29/2023 83.9 MCH (pg) Date Value 04/29/2023 25.3 (L) MCHC (g/dL) Date Value 04/29/2023 30.2 (L) RDW-CV (%) Date Value 04/29/2023 13.2 Platelet Count (k/uL) Date Value 04/29/2023 496 (H) MPV (fL) Date Value 04/29/2023 9.3 Iron Date Value Ref Range Status 04/29/2023 18 (L) 41 - 186 ug/dL Final TIBC Date Value Ref Range Status 04/29/2023 >518 (H) 232 - 386 ug/dL Final Ferritin Date Value Ref Range Status 04/29/2023 13.3 (L) 14.7 - 205.1 ng/mL Final Folate Date Value Ref Range Status 06/02/2022 13.8 >4.7 ng/mL Final Vitamin B12 Date Value Ref Range Status 06/02/2022 678 232 - 1,245 pg/mL Final Transferrin Saturation Date Value Ref Range Status 04/29/2023 <3.5 (L) 15.0 - 57.0 % Final Assess for the need to augment a patient s natural red blood cell production: - Blood transfusion avoidance - Iron depletion Recommendations according to Blood Management patient care guidelines: - Iron Sucrose 200 mg, IV infusion, dose(s) 4 total iron deficit using Ganzoni equation = 701 mg (pre- wt 76 kg/goal hgb 11 g/dL) Clinical information is sent to a provider for review and evaluation for treatment. documented in this encounterMer[facility] History of Past illness Narrative* Problem Noted Date Diagnosed Date Resolved Date 27 weeks gestation of 05/03/2023 06/21/2023 Morbid obesity with BMI of 40.0-44.9, adult [...] 40.88 kg/m . -scheduled for the surgery Short interval between pregn ancies affecting , [...] as of this encounter (statuses as of 06/21/2023) [facility] History of Past illness Narrative* Problem Noted Date Diagnosed Date Resolved Date 27 weeks gestation of 05/03/2023 06/21/2023 Morbid obesity with BMI of 40.0-44.9, adult [...] 40.88 kg/m . -scheduled for the surgery Short interval between pregn ancies affecting , antepartum 06/15/2018 10/31/2019 Overview: 03/16/2019 Patient delivered her previous child 08/01/2018. TKRN Shortness of breath 06/15/2018 07/06/19 19 Abnormal glucose measurement 05/31/2018 08/05/2018 Overview: 05/31/2018 Elevated 1hr GTT. 1/ elevated with 3hr GTT - 2hr was [...] as of this encounter (statuses as of 06/25/2023) [facility] History of Past illness Narrative* Problem Noted Date Diagnosed Date Resolved Date 27 weeks gestation of 05/03/2023 06/21/2023 Morbid obesity with BMI of 40.0-44.9, adult [...] 40.88 kg/m . -scheduled for the surgery Short interval between pregn ancies affecting , antepartum 06/15/2018 10/31/2019 Overview: 03/16/2019 Patient delivered her previous child 08/01/2018. TKRN Shortness of breath 06/15/2018 07/06/19 19 Abnormal glucose measurement 05/31/2018 08/05/2018 Overview: 05/31/2018 Elevated 1hr GTT. 1 elevated with 3hr GTT - 2hr was elevated to 209. Consider 3rd tri growth US. SW Childhood asthma without complication 01/03/2018 10/31/2019 Overview: 01/03/2018 Not currently using Albuterol inhaler. Continue to monitor. No Hemabate. SW Bleeding in early 12/30/2017 06/21/2018 Overview: 12/30/2017 Patient was seen by Kimi mSith 12/22/2017 for bleeding in . She denies [...] as of this encounter (statuses as of 06/25/2023) [facility] History of Past illness Narrative* Problem Noted Date Diagnosed Date Resolved Date 27 weeks gestation of 05/03/2023 06/21/2023 Morbid obesity with BMI of 40.0-44.9, adult [...] 40.88 kg/m . -scheduled for the surgery Short interval between pregn ancies affecting , antepartum 06/15/2018 10/31/2019 Overview: 03/16/2019 Patient delivered her previous child 08/01/2018. TKRN Shortness of breath 06/15/2018 07/06/19 19 Abnormal glucose measurement 05/31/2018 08/05/2018 Overview: 05/31/2018 Elevated 1hr GTT. 1 elevated with 3hr GTT - 2hr was [...] as of this encounter (statuses as of 06/29/2023) [facility] History of Past illness Narrative* Problem Noted Date Diagnosed Date Resolved Date 27 weeks gestation of 05/03/2023 06/21/2023 Morbid obesity with BMI of 40.0-44.9, adult [...] 40.88 kg/m . -scheduled for the surgery Short interval between pregn ancies affecting , [...] as of this encounter (statuses as of 07/02/2023) [facility] History of Past illness Narrative* Problem Noted Date Diagnosed Date Resolved Date 27 weeks gestation of 05/03/2023 06/21/2023 Morbid obesity with BMI of 40.0-44.9, adult [...] 40.88 kg/m . -scheduled for the surgery Short interval between pregn ancies affecting , antepartum 06/15/2018 10/31/2019 Overview: 03/16/2019 Patient delivered her previous child 08/01/2018. TKRN Shortness of breath 06/15/2018 07/06/19 19 Abnormal glucose measurement 05/31/2018 08/05/2018 Overview: 05/31/2018 Elevated 1hr GTT. 1/ elevated with 3hr GTT - 2hr was [...] as of this encounter (statuses as of 07/02/2023) [facility] Miscellaneous Notes* Telephone Encounter - Inna Horne RN - 05/03/2023 9:17 AM EST Faxed * Telephone Encounter - Inna Horne RN - 04/30/2023 5:05 PM EST Received breast pump RX from [employer]. To DM to sign. Inna Horne RN documented in this encounterMercy Health St[facility]02-16-2024 Miscellaneous Notes* Telephone Encounter - Inna Horne RN - 04/30/2023 10:24 AM EST Patient notified. Inna Horne RN * Telephone Encounter - Jimmie Jules MD - 04/30/2023 10:02 AM EST ordered * Telephone Encounter - Inna Horne RN - 04/30/2023 8:56 AM EST Blood Management referral pending. Please file. Inna Horne RN * Telephone Encounter - Inna Horne RN - 04/30/2023 8:53 AM EST ----- Message from Jimmie Wang MD sent at 04/30/2023 8:02 AM EST ----- Recommend IV IRON please pend IV iron referral- blood mgmt referral. documented in this encounterMercy Health St. [facility]02-15-2024 Miscellaneous Notes* Telephone Encounter - Polo Soto RN - 04/29/2023 1:22 PM EST Patient notified. Polo Soto RN * Telephone Encounter - Jimmie Jules MD - 04/29/2023 11:57 AM EST If she has been taking daily then yes do the studies and then IV iron I would recommend it. * Telephone Encounter - Polo Soto RN - 04/29/2023 11:48 AM EST 27w2d Patient called in. She has already been taking ferrous sulfate 325mg daily throughout . Should she do iron labs now? Polo Soto RN * Telephone Encounter - Polo Soto RN - 04/29/2023 11:44 AM EST Jimmie Wang MD 04/29/2023 7:53 AM EST Notify patient of anemia in . Needs to be taking iron supplementation. Please make sure she is taking her bariatric supplements appropriately. If her supplement does not contain iron she needs to get 1 that does and she needs to start taking it daily. Will repeat her CBC in 4 weeks if there is no improvement we may need to consider IV iron documented in this encounterMercy Health St. [facility]02-14-2024 Miscellaneous Notes* Quick Notes - Jimmie Jules MD - 04/28/2023 1:56 PM EST DM-Pt doing well. Denies vaginal Bleeding, Leaking fluid, or regular Contractions. Pt reports good movement Physical Exam: Gen: female in no apparent distress Abd: soft, Gravid. Non tender to palpation. See flow sheet A/P: @ 27.1 weeks 1) labs today, tdap Will check FS for 2 weeks. H/o Bypass- no gct. Hga1c today. 2)Larc form Signed and declined today - vasectomy planned 3) ASA 4) RTO 2 weeks 5) Growth us 32 weeks 6) had rhogam [address] [facility]- will get next visit. Jimmie Lopez MD documented in this encounterMercy Health St. [facility]02-14-2024 History of Present illness Narrative* Erika Calderón Ma - 04/28/2023 1:42 PM EST Patient identified by name and date of . Seda De León presents today for a vaccination of Tdap. Patient denies an allergy to latex: yes Patient denies a severe (life-threatening) allergy to a previous dose of Tdap, DTP, DTaP, DT or Td vaccine. Yes Patient denies history of epilepsy or neurological problems: Yes Patient is afebrile and denies being moderately or severely ill: Yes Patient denies history of Guillain-[place] Syndrome (a severe paralytic illness): Yes Tdap Adacel injection was given without incident. See immunizations for details of immunizations administered today. VIS sheet provided: Yes Provider Shania was present in office at time of injection. Erika Calderón Ma documented in this encounterMercy Health St. [facility]02-14-2024 Instructions* Patient Instructions* Erika Calderón Ma - 04/28/2023 1:34 PM EST SEQUENTIAL SCREENINGS The [facility] offers sequential screenings for women who are interested in screenings for chromosomal abnormalities and certain defects during a . The sequential screen combinesultrasound and blood tests to determine the risk [...] this testing. It will require an appointment withour bottle house quality control technician. This is not an ultrasound performed [...] the above symptoms, contact our office at [phone] and ask to speak with anurse. After hours, you can call doctors registry at [phone] OR call [facility] at [phone] ask to have the doctor educational psychology professor paged. If you consider this an emergency, dial 9-1-7 or go to your nearest emergency department. NEED HELP? Are you dealing with a violent or abusive relationship? Are you a victim of rape or sexual assult? Call [facility] ([facility] 24 hour Crisis Hotline: 792.993.3527 or 278-949-8756. MANUAL Your Guide to a Healthy manual is now on-line. Visit [email or web address] to download your free copy documented in this encounterMercy Health St. [facility]12-07-2023 Discharge summary Author Ru Oden [facility] February 19, 2023 12:09am Note Date/Time February 18, 2023 1 1:28pm [facility] Medical Records Department [address] [place] [address] Emergency Department Summary 02/18/23 MR#: [id number] Acct: [id number] Name: SEDA DE LEÓN Rep #:[id number] : 1995 27 From: Ru Oden MD PCP: SHAYY Alejandro Status:REG E R Location: ED HPI HPI - Female History of Present Illness Chief Complaint: Vag Bld, Preg Detail of Chief Complaint: Vaginal bleeding, second trimester Informant: patient Pain Pain: Negative for Pelvic Pain, Vulvar Pain or Vaginal Pain Quality: Positive for Cramping Location: Suprapubic Current Severity: Mild Maximum Severity: Moderate Relieved by: - (Nothing) Bleeding Issue: Positive for Vaginal bleeding; Negative for Passing clots or Passing tissue Onset: Hours Context: Sudden Onset Timing: Intermittent Current Severity: - (Patient reports a gush of blood while sitting.) Associated Symptoms Associated Symptoms: Positive for Frequency and Missed Period; Negative for Dysuria, Urgency or Hematuria Last known menstrual period: Patient is 18 weeks gestation. She has had a ultrasound that revealed a si Test: Positive Sexually: Positive for Active Control: No control P: 2 Ab: 0 Narrative Narrative: Patient is a 27-year-old G3, P2 female who has a negative blood type who presents with gush of blood while sitting. She had no complication with the first 2 . She reports cramping pain that she localizes in the suprapubic area. She did not note any clots with the gush of blood. She did contact her OB who is affiliated with [facility] who recommended she come to the emergency department. She states she has not felt the baby kick during her entire . She denies fever, chills night sweats. She denies dysuria or hematuria. She does have frequency. She denies low back or flank pain. There is no history of trauma. Prior similar symptoms: No Recent Illness/Hospitalization: No PFSH PFSH Medical History Gestational diabetes Gestational diabetes Home Medications vit no.95-ferrous fumarate 28 mg-folic acid 800 mcg tablet ( Multivitamins) 1 ea PO DAILY 02/14/18 [History Last Taken 10/16/19] acetaminophen 500 mg tablet 500 mg PO Q4H PRN PRN Pain Or Fever 05/24/19 [History Last Taken 05/24/19] ondansetron 4 mg disintegrating tablet 4 mg PO Q8H PRN nausea and vomiting 3 days #9 tabs 12/20/22 [Rx Last Taken Unknown] Allergy/AdvReac Type Severity Reaction Status Date / Time cefdinir Allergy Vomiting Verified 02/18/23 20:16 morphine Allergy Rash Verified 02/18/23 20:16 peanut Allergy Anaphylaxis Verified 02/18/23 20:16 Social History household members: children Smoking Status: Never smoker ROS ROS ED Constitutional Constitutional ED: Denies chills, fever(s), subjective or sweats Eyes Eyes: Denies blurry vision, change in vision or diplopia ENT ENT ED: Denies rhinorrhea or sore throat Cardiovascular Cardiovascular: Denies chest pain or palpitations Respiratory/Chest Respiratory/Chest: Denies cough, dyspnea or dyspnea on exertion Gastrointestinal Gastrointestinal: Reports abdominal pain; Denies constipation, diarrhea, melena or vomiting Genitourinary Genitourinary ED: Reports urinary frequency; Denies dysuria or hematuria Musculoskeletal Musculoskeletal: Denies arthralgias, myalgias or neck pain Integumentary Denies rash Neurologic Neurologic: Denies headache(s) or paresthesias Psychiatric Psychiatric: Reports anxiety Hematologic/Lymphatic Hematologic/Lymphatic: Denies easy bleeding or easy bruising EXAM Physical Exam Const Vital Signs: 02/18/23 20:14 02/18/23 23:52 Temperature 97.6 F L Temperature Source Temporal Pulse Rate 89 66 Respiratory Rate 16 15 Blood Pressure 128/80 H Blood Pressure Mean 96 Pulse Ox 100 100 Oxygen Delivery Method Room Air Positive well nourished, well developed and obese General Appearance ED: well developed and NAD; Negative for odor of alcohol detected or pallor Nutritional Appearance: obese HEENT Reports moist mucous membranes HEENT Narrative: Head is atraumatic and normocephalic. Ears are normal. Nares are patent. Eyes PERRL and EOMs intact bilaterally General Eye ED: Negative for pale conjunctiva or scleral icterus Neck no lymphadenopathy, supple and no JVD Chest Wall inspection of chest normal and palpation of chest normal Resp normal respiratory effort and clear to auscultation bilaterally Cardio regular rate, regular rhythm, S1 normal heart sound, no murmurs and no JVD GI normal to inspection, nondistended, normoactive bowel sounds, soft to palpation and non-distended; Negative for non-tender GI Narrative: Fundal height is 1 fingerbreadth below the umbilicus. heart tones are 145. Auscultation: normoactive bowel sounds Palpation: Negative for tender, guarding, rigid, hepatomegaly or splenomegaly Narrative: External genitalia normal. Vaginal mucosa was normal. Cervical mucosa is normal. There is no blood in the vaginal vault. Bimanual exam reveals the external os to be slightly open to fingertip. There is no right or left adnexalmass appreciated. Back/Spine no CVA tenderness Extremity normal to inspection and full ROM General Extremety ED: Negative for edema or tenderness General Extremity: Negative for edema Neuro oriented x3, CN's II-XII intact bilaterally and no sensory deficits noted Sensorium / Orientation: alert Motor Exam: strength 5/5 throughout Psych mental status grossly normal Skin no rashes or lesions noted and no wounds General Skin Exam: Negative for jaundice or pallor MDM MDM MDM Narrative Medical decision making narrative: Differential diagnosis would include vaginal bleeding, bleeding from cervix, threatened AB. She did have an outpatient ultrasound which revealed a subchorionic bleed. This may be the cause of her gush of blood . Since she has a negative blood RhoGAM protocol was initiated. Since heart tones [id number] and the os is closed with no blood noted ultrasound was not obtained. History & Record Review Additional record(s) reviewed:: Prior outpatient record (Outpatient ultrasound that revealed single live intrauterine .) and Prior labs Discharge Plan Triage Chief Complaint: Vag Bld, Preg ED Provider: Jac Odeno Dx/Rx/DC Orders Clinical Impression: Vaginal bleeding before 22 weeks gestation, Encounter for prophylactic administration of RhoGAM Prescriptions: No Action PNV cmb#95-ferrous fumarate-FA [ Multivitamins] 1 EACH tablet 1 ea PO DAILY acetaminophen 500 MG tablet 500 mg PO Q4H PRN PRN (Reason: Pain Or Fever) ondansetron 4 mg tablet,disintegrating 4 mg PO Q8H PRN (Reason: nausea and vomiting) 3 Days Qty: 9 0RF Primary Care Provider: Natalie Blum Referrals: Chelsea Navarro MD [Med Staff - Active Staff] - 3-5 Days Natalie Blum PA [Primary Care Provider] - Disposition Disposition: Home, Self Care What to do if you have Problems For any increased pain, shortness of breath, bleeding, nausea or vomiting, chestpain, or any unexpected problems, contact your Primary Care Provider. Call Doctors Registry ([phone]) or report to the closest Emergency Room. Call 911 if necessary. 02/19/23 0009 <Electronically signed by Ru Oden MD> Cosigner Signature (if applicable): CC: SHAYY Alejandor ~ Signed [facility] Work Phone: 1(839) 748-163711-17-2023 Miscellaneous Notes* Quick Notes - Angie Mora MD - 01/29/2023 11:40 AM EST RR- VB No. LOF No. CTXS No. Movement: absent. Other c/o: No. Medication list reviewed. Physical Exam See Flow Sheet Abd: soft, nontender, gravid Ext: edema: no A/P 14w3d Estimated Date of Delivery: 07/27/23 Labs: declines aneuploidy screeing f/u in 4-5 weeks for anatomy US cont. PNV declines flu vaccine today Angie Mora M.D. documented in this encounterMercy Health [facility]11-17-2023 Instructions* Patient Instructions* Marly Hernadez Ma - 01/29/2023 10:56 AM EST SEQUENTIAL SCREENINGS The [facility] offers sequential screenings for women who are interested in screenings for chromosomal abnormalities and certain defects during a . The sequential screen combinesultrasound and blood tests to determine the risk [...] this testing. It will require an appointment withour bottle house quality control technician. This is not an ultrasound performed [...] the above symptoms, contact our office at [phone] and ask to speak with anurse. After hours, you can call doctors registry at [phone] OR call [facility] at [phone] ask to have the doctor educational psychology professor paged. If you consider this an emergency, dial 9-1-5 or go to your nearest emergency department. NEED HELP? Are you dealing with a violent or abusive relationship? Are you a victim of rape or sexual assult? Call [facility] ([place]) 24 hour Crisis Hotline: 963.716.6909 or 957-722-1290. MANUAL Your Guide to a Healthy manual is now on-line. Visit [email or web address] to download your free copy documented in this encounterMer[facility]10-24-2023 Miscellaneous Notes* Telephone Encounter - Raquel Brown RN - 01/05/2023 11:13 AM EDT 1st risk assessment form submitted 01/05/2023 11w today documented in this encounterMercy Health St. [facility]10-20-2023 Instructions* Patient Instructions* Erika Calderón Ma - 01/01/2023 11:05 AM EDT Please select the following link to access the [facility] Your Guide to a Healthy . [email or web address] documented in this encounterMercy Health St. [facility]10-20-2023 History of Present illness Narrative* Kayy Longo APRN.BLENDER LABORER - 01/01/2023 10:58 AM EDT INITIAL OB ASSESSMENT OB Provider: Ivett Laguerre CNM HPI: Seda is a 27 year old White here [...] use: No Multivitamin with Folic acid: Yes Cheondoism or heritage: No Would refuse blood transfusion [...] Status:Single Partner: Name: Abe Age: 29 Occupation: [employer] Gender: Male History of STDs: None PAST [...] Take by mouth once daily. (Patientnot taking: Reported on 01/01/2023) acetaminophen (TYLENOL) 325 [...] Your guide to a health and the [place]. OB Community care order placed. Discussed aneuploidy [...] plan for allergy testing. Reviewed midwifery and director of fundraising services that are available. 2) History of diabetes: Given previous gestational diabetes or LGA baby, ordered early glucose screen or Hemoglobin A1C Follow up in 4 weeks or sooner prn. @8 weeks external US done that show a small sub-chorionic hemorrhage, pt had had no bleeding. Also showed a small cyst on umbilical cord Kayy Longo APRN.BLENDER LABORER documented in this encounterMercy Health St. [facility]10-05-2023 History of Present illness Narrative* Steffanie Navarro APRN.CNP - 12/17/2022 8:52 AM EDT Patient came in with complaints of left [...] other symptoms associated with it. Did call TOOL AND DIE DESIGNER office they agree ER is best place for patient. Patient is being sent right now. Patient is going to take her self. documented in this encounterMer[facility]09-21-2023 History of Present illness Narrative* Kimi Sherwood RDMS - 12/03/2022 10:00 AM EDT Radiology Service Progress Note PATIENT NAME: Seda De León DATE OF SERVICE: December 03, 2022 TIME: 11:24 AM PATIENT IDENTITY VERIFICATION COMPLETED USING TWO (2) IDENTIFIERS: Name and Date of confirmedby patient verbally. FALL SCREENING: Has the patient [...] 03, 2022 11:24 AM documented in this encounterMer[facility]. [facility]09-19-2023 History of Present illness Narrative* Angie Mora MD - 12/01/2022 3:10 PM EDT patient needs new order for early ob US in radiology. Angie Mora MD documented in this encounterMercy Health [facility]09-[facility]-2023 Miscellaneous Notes* Telephone Encounter - Polo Soto RN - 11/20/2022 3:18 PM EDT Patient notified and NOB scheduled. Polo Soto RN * Telephone Encounter - Leonela Carreon LPN - 11/20/2022 1:10 PM EDT Message and mychart message left asking pt to call the office for results. Leonela Carreon LPN * Telephone Encounter - Chelsea Navarro MD - 11/20/2022 12:24 PM EDT Hcg quants increasing well. OK to scheduled PNC. Chelsea Navarro MD * Telephone Encounter - Inna Horne RN - 11/20/2022 8:02 AM EDT 2nd HCG quant from [facility] is 109 * Telephone Encounter - Inna Horne RN - 11/19/2022 2:39 PM EDT Order faxed to [facility] lab. Please leave phone note open for result. Patient will still need initial visits scheduled. Inna Horne RN * Telephone Encounter - Inna Horne RN - 11/19/2022 1:13 PM EDT Spoke with patient. She's agreeable to go later today. Lab order on 's desk. Inna Horen RN * Telephone Encounter - Sandra Edwards MD - 11/19/2022 1:05 PM EDT Yes repeat HCG today if possible * Telephone Encounter - Inna Horne RN - 11/19/2022 12:[address] [facility] lab called. Patient was seen at [facility] ER on 11/17 to rule out ectopic and torsion. Her HCG was 46. Lab called because the wrong order was placed by ER physician. A urine HCG was done today. No blood work. Patient was to have a repeat HCG today. Would you like us to contact patient and see if she can go back to [facility] lab and have HCG level done? ER report in mailbox. Inna Horne RN documented in this encounterMercy Health St. [facility]09-05-2023 Discharge summary Author Ru Oden [facility] November 17, 2022 3:16pm Note Date/Time November 17, 2022 10:59am [facility] Medical Records Department [address] [place] [id number] Emergency Department Summary 11/17/22 MR#: [id number] Acct: [id number] Name: SEDA DE LEÓN Rep #:[id number] : 1995 27 From: Ru Oden MD PCP: Care Physician,No Primary Status :REG ER Location: ED HPI HPI - Female History of Present Illness Chief Complaint: Female C/O Detail of Chief Complaint: Left adnexal pain Informant: patient Pain Pain: Negative for Pelvic Pain, Vulvar Pain or Vaginal Pain Maximum Severity: Severe Worsened by: Movement Relieved by: - (Nothing) Bleeding Issue: Negative for Vaginal bleeding, Passing clots or Passing tissue Associated Symptoms Associated Symptoms: Positive for Dysuria, Frequency and Irregular Period; Negative for Urgency, Hematuria or Missed Period Last known menstrual period: October 16, positive home test P: 2 Narrative Narrative: Patient is a 27-year-old female who was last normal menstrual was October 16. She had a positive home as yesterday. She has a known history of an 8 cm left ovarian cyst diagnosed on ultrasound 1 month ago. She presents with abrupt onset of left lower quadrant abdominal pain. She was sent to the [facility] sizing end bander. She denies orthostatic symptoms. She does report dysuria and slight frequency. She denies hematuria. Denies history of renal ureterolithiasis. She denies black or maroon-colored stool. Denies blood or mucus in her stool. She denies change in bowel habitus. She points to the leftlower back where she has most discomfort. She denies history of ectopic . She denies history of STI. She denieshistory of endometriosis. She does have history of gestational diabetes. Prior similar symptoms: No Recent Illness/Hospitalization: Yes PFSH PFSH Home Medications vit no.95-ferrous fumarate 28 mg-folic acid 800 mcg tablet ( Multivitamins) 1 ea PO DAILY 02/14/18 [History Last Taken 10/16/19] acetaminophen 500 mg tablet 500 mg PO Q4H PRN PRN Pain Or Fever 05/24/19 [History Last Taken 05/24/19] metoclopramide HCl 10 mg tablet (Reglan) 10 mg PO Q6H PRN nausea and vomiting #14 tabs 08/28/22 [Rx Last Taken Unknown] sucralfate 100 mg/mL oral suspension (Carafate) 10 ml PO BID PRN epigastric pain#400 mL 08/28/22 [Rx Last Taken Unknown] Allergy/AdvReac Type Severity Reaction Status Date / Time cefdinir Allergy Vomiting Verified 11/17/22 10:24 morphine Allergy Rash Verified 11/17/22 10:24 peanut Allergy Anaphylaxis Verified 11/17/22 10:24 Social History (Updated 11/17/22 @ 11:[address] Ru Oden MD) household members: children Smoking Status: Never smoker ROS ROS ED Constitutional Constitutional ED: Denies chills, fever(s) or subjective Eyes Eyes: Denies change in vision ENT ENT ED: Denies rhinorrhea or sore throat Cardiovascular Cardiovascular: Denies chest pain or palpitations Respiratory/Chest Respiratory/Chest: Denies cough, dyspnea or dyspnea on exertion Gastrointestinal Gastrointestinal: Reports abdominal pain and nausea; Denies diarrhea or vomiting Genitourinary Genitourinary ED: Reports dysuria and urinary frequency; Denies hematuria Musculoskeletal Musculoskeletal: Denies arthralgias, myalgias or neck pain Integumentary Denies rash Neurologic Neurologic: Denies paresthesias or weakness Psychiatric Psychiatric: Reports anxiety Endocrine Endocrinology: Denies heat intolerance Hematologic/Lymphatic Hematologic/Lymphatic: Denies easy bleeding or easy bruising EXAM Physical Exam Const Vital Signs: 11/17/22 10:24 11/17/22 14:37 Temperature 97 F L Temperature Source Temporal Pulse Rate 90 98 Respiratory Rate 14 18 Blood Pressure 146/91 H 134/83 H Blood Pressure Mean 109 100 Pulse Ox 100 93 Oxygen Delivery Method Room Air Room Air Positive well nourished and well developed Constitutional Narrative: Patient appears uncomfortable. Patient became tearful after abdominal exam. General Appearance ED: well developed; Negative for NAD, odor of alcohol detected or pallor HEENT Reports moist mucous membranes HEENT Narrative: Head is atraumatic normocephalic. Ears are normal. Nares are patent. Eyes PERRL and EOMs intact bilaterally General Eye ED: Negative for pale conjunctiva or scleral icterus Neck no lymphadenopathy, supple and no JVD Chest Wall inspection of chest normal and palpation of chest normal Resp normal respiratory effort and clear to auscultation bilaterally Cardio regular rate, regular rhythm, S1 normal heart sound, no murmurs and no JVD GI soft to palpation, non-distended and no masses; Negative for non-tender GI Narrative: Question percussion tenderness. Auscultation: hypoactive bowel sounds Palpation: tender LLQ and guarding LLQ; Negative for rigid, hepatomegaly, splenomegaly or mass Back/Spine no CVA tenderness Lumbar Spine / Lower Back: lumbar spinal tenderness Extremity normal to inspection and full ROM General Extremety ED: Negative for edema or tenderness General Extremity: Negative for edema Neuro oriented x3, CN's II-XII intact bilaterally and no sensory deficits noted Sensorium / Orientation: alert Psych Mood & Affect: anxious Skin no rashes or lesions noted and no wounds General Skin Exam: Negative for jaundice or pallor MDM MDM MDM Narrative Medical decision making narrative: With history of recent test and history of 8 cm left ovarian cyst needto evaluate for ectopic , ovarian torsion. Serum quantitative level was obtained as well as transvaginal ultrasound. The debug technician was contacted personally by me to inform her that there is concern for as well as torsion. UA was obtained because of her urologic symptoms. CBC to assess white count differential. Patient was made NPO. Patient was medicated with Zofran for her nausea and morphine for her pain. History & Record Review Additional record(s) reviewed:: Prior outpatient record (Records from outside facility indicates patient did have a large left ovarian cyst.) Lab Data Attestation: I reviewed the patient's lab results. Lab results narrative: Urinalysis is unremarkable. Quantitative hCG is 46. Labs: Laboratory Results - last 24 hr 11/17/22 11/17/22 11:11 11:20 HCG, Quant 46 H Urine Color Yellow Urine Clarity Cloudy Urine pH 5.0 Ur Specific [place] 1.025 Urine Protein 30 H Urine Glucose (UA) Normal Urine Ketones 150 A* Urine Occult Blood Negative Urine Nitrite Negative Urine Bilirubin 1 H Urine Urobilinogen 8 H Ur Leukocyte Esterase 100 H Urine RBC 0 SEEN Urine WBC 0-5 SEEN Ur Squamous Epith Cells 0-5 SEEN Urine Bacteria RARE Urine Mucus 3+ Radiography Diagnostic Testing: Clinical Impression(s) from Imaging Studies Obstetrics Ultrasound 11/17/22 10:55 IMPRESSION: Irregular shaped intrauterine gestational sac without a pole or yolk sac. 7.6 cm x 8.6 cm x 6.6 cm simple cyst in the right ovary. Minimal amount of free fluid in the cul-de-sac. Electronically Signed: Ellis Murguia MD at 13:14 EDT , Management Discussion w/another healthcare provider: Pool Hall Inspector (Dr. Navarro who is on-call for [employer] [facility] was paged. Patient is seen through [facility]) Treatment and Re-Evaluation Narrative: Plan is quantitative hCG in 48 hours. Discharge Plan Triage Chief Complaint: Female C/O ED Provider: Ru Oden Dx/Rx/DC Orders Clinical Impression: Early stage of , Cyst of left ovary Instructions: 1st Trimester, ED Ovarian Cyst Prescriptions: No Action PNV cmb#95-ferrous fumarate-FA [ Multivitamins] 1 EACH tablet 1 ea PO DAILY acetaminophen 500 MG tablet 500 mg PO Q4H PRN PRN (Reason: Pain Or Fever) sucralfate [Carafate] 100 mg/mL suspension 10 ml PO BID PRN (Reason: epigastric pain) Qty: 400 0RF metoclopramide HCl [Reglan] 10 mg tablet 10 mg PO Q6H PRN (Reason: nausea and vomiting) Qty: 14 0RF Primary Care Provider: Care Physician,No Primary Referrals: Chelsea Navarro MD [Med Staff - Active Staff] - 3-5 Days Care Physician,No Primary [Primary Care Provider] - Activity Restrictions/Additional Instructions: 1. You will need to contact the lab for repeat test in 48 hours. Recommend having the test done here since there can be a 15 to 20% variance if done at another lab. 2. Contact Dr. Navarro for follow-up appointment to discuss results of repeat hCGlevel Disposition Disposition: Home, Self Care What to do if you have Problems For any increased pain, shortness of breath, bleeding, nausea or vomiting, chestpain, or any unexpected problems, contact your Primary Care Provider. Call [facility] ([phone]) or report to the closest Emergency Room. Call 911 if necessary. 11/17/22 1516 <Electronically signed by Ru Oden MD> Cosigner Signature (if applicable): CC: No Primary Care Physician ~ Signed [facility] Work Phone: [phone] Miscellaneous Notes* Telephone Encounter - Chelsea Navarro MD - 11/17/2022 11:21 AM EDT Noted Chelsea Navarro MD * Telephone Encounter - Inna Horne RN - 11/17/2022 9:20 AM EDT Patient called with c/o left sided pain accompanied by nausea that began 2 hours ago. Sharp pain with a pain rate of 7 out of 10. An 8cm cyst was seen on her US on 11/05/22. Advised to visit ER to rule out torsion. Patient informed nurse that she took three positive UPT. LMP 10/20/22. Patient plans togo to ER for evaluation. Message forwarded to DOC and RM to review when she returns. Inna Horne RN documented in this encounterMercy Health [facility]. [facility]08-24-2023 Miscellaneous Notes* Telephone Encounter - Leonela Carreon LPN - 11/05/2022 5:02 PM EDT Pt notified and assisted to schedule follow up ultrasound.Leonela Carreon LPN * Telephone Encounter - Kayy Longo APRN.CNP - 11/05/2022 4:48 PM EDT Please let the pt know that she does have a 8cm cyst on the left ovary and that is the cause of herpain. Review torsion precautions. Follow up US in 8 weeks. Kayy Longo APRN.BLENDER LABORER documented in this encounterMercy Health St. [facility]08-23-2023 History of Present illness Narrative* Kathleen Espinoza RDMS - 11/04/2022 1:45 PM EDT Radiology Service Progress Note PATIENT NAME: Seda De León DATE OF SERVICE: November 04, 2022 TIME: 2:59 PM PATIENT IDENTITY VERIFICATION COMPLETED USING TWO (2) IDENTIFIERS: Name and Date of confirmedby patient verbally. FALL SCREENING: Has the patient [...] 04, 2022 2:59 PM documented in this encounterMercy Health St. [facility]08-21-2023 History of Present illness Narrative* Sterling Martinez RT(R) - 11/02/2022 3:00 PM EDT Radiology Service Progress Note PATIENT NAME: Seda De León DATE OF SERVICE: November 02, 2022 TIME: 2:59 PM PATIENT IDENTITY VERIFICATION COMPLETED USING TWO (2) IDENTIFIERS: Name and Date of confirmedby patient verbally and Name and Date of [...] IV DATA: Not applicable SIGNED BY: RT Saleem(R) November 02, 2022 2:59 PM documented in this encounterMercy Health St. [facility]08-21-2023 Instructions* Patient Instructions* Keith Arriaga APRN.CNP - 11/02/2022 12:30 PM EDT Rest Fluids May use Tylenol as needed for discomfort Plain Mucinex Leave 4 hours between taking your antibiotic and any vitamins, calcium or magnesium supplements. Take antibiotic with full glass of water and food. This antibiotic can make you more sensitive to sunlight avoid prolonged sun exposure, use sun protection SPF. documented in this encounterMercy Health St. [facility]08-21-2023 History of Present illness Narrative* Keith Arriaga APRN.CNP - 11/02/2022 12:24 PM EDT This note was created using NoteWriter. Subjective Seda E Rehard is a 27 year old female. CC: [...] BP Cuff Size: Regular Adult) Pulse 86 Temp36.4 C (97.6 F) (Right Tympanic) Resp 18 Ht 160 cm (5' 3) Wt 83.4 kg (183 lb 14.4 oz) [...] tenderness or frontal sinus tenderness. Mouth/Throat: Lips: [place]. Pharynx: Oropharynx is clear. Uvula midline. Posterior [...] symptoms persist or worsen Keith Arriaga APRN.CNP documented in this encounterMercy Health St. 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 Seda is a 27 year old who presents for an annual gynecologic exam with complaints, crampingon the left side for 2 months Menses: cycles every 21-25 days and 4-5 days of flow. 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 [facility]07-18-2023 NoteHNO ID: [id number] Author: RT Willam(Jerilyn) Service: Radiology Author Type: Technologist Type: Progress Notes Filed: 09/29/2022 10:35 AM Note Text: Radiology Service Progress Note PATIENT NAME: Seda De León DATE OF SERVICE: September 29, [...] PERIPHERAL IV DATA: Not applicable SIGNED BY: Kevin Grover, RT(R) September 29, 2022 10:34 [facility]07-17-2023 History of Present illness Narrative* Jeffery Tinajero RD - 09/28/2022 4:05 PM EDT Patient was scheduled for a nutrition appointment today. The patient did not check into their scheduled appointment. I sent the patient a Aeluros message encouraging them to reschedule their appointment by calling [phone]. documented in this encounterMercy Health St. [facility]07-07-2023 History of Present illness Narrative* Cory Yost MD - 09/18/2022 11:09 AM EDT Metabolic Surgery Postoperative Virtual Clinic Visit Name: Seda De León This visit was performed virtually via [employer] technology due to the COVID-19 epidemic as an effort toprotect patients and minimize exposure.? Virtual Visit (Audio/Visual)I have discussed the nature of this visit with the patient which will occur via [facility] (Phone, Virtual Visit) and she agrees to proceed with this interaction. Index Surgery Date of Surgery: 08/20/2022 Surgeon: Cory Yost MD Surgical Procedure: robo bypass Pre-surgical [...] Morbid obesity with BMI of 40.0-44.9, adult ([facility]) Obesity, Class III, BMI >= 40 COVID-19 virus infection Onychomycosis Well adult exam Hx of gestational diabetes mellitus, not currently Morbid obesity ([facility]) History of gestational hypertension 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[facility]) Resolved Hospital Problems No resolved problems to display. DISPOSITION: Return 1 month to Post-op follow up/ individual office visit EDUCATION: Encouraged to continue with healthy lifestyle changes and incorporate cardiovascular andresistance training, Discussed weight loss expectations after bariatric and metabolic surgery, Advised PT to avoid NSAIDs, smoking tobacco given increased risk of marginal ulcers, or Discussed importance of protein intake as per the RDN note CBC, CMP Upper GI ordered REFERRALS: N/A LABS: Cory Yost MD Advanced Laparoscopic & Bariatric Surgery Bariatric & Metabolic [place] [facility] documented in this encounterMercy Health St. [facility]06-23-2023 History of Present illness Narrative* Cory Yost MD - 09/04/2022 8:53 AM EDT Metabolic Surgery Postoperative Virtual Clinic Visit Name: Seda De León This visit was performed virtually via Zoom technology due to the COVID-19 epidemic as an effort toprotect patients and minimize exposure.? Virtual Visit (Audio/Visual)I have discussed the nature of this visit with the patient which will occur via [facility] [employer] (Phone, Virtual Visit) and she agrees to proceed with this interaction. Index Surgery Date of Surgery: 08/20/2022 Surgeon: Cory Yost MD Surgical Procedure: robo bypass Pre-surgical [...] of gestational hypertension 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[facility]) Resolved Hospital Problems No resolved problems to display. DISPOSITION: Return 1 month to Post-op follow up/ individual office visit EDUCATION: Encouraged to continue with healthy lifestyle changes and incorporate cardiovascular andresistance training, Discussed weight loss expectations after bariatric and metabolic surgery, Advised PT to avoid NSAIDs, smoking tobacco given increased risk of marginal ulcers, or Discussed importance of protein intake as per the RDN note REFERRALS: N/A LABS: Cory Yost MD Advanced Laparoscopic & Bariatric Surgery Bariatric & Metabolic [place] [facility] documented in this encounterMercy Health St. [facility]06-19-2023 Miscellaneous Notes* Telephone Encounter - Sakshi Porter RN - 08/31/2022 12:40 PM EDT BMI SPECIALTY CARE COORDINATION POST-OP TELEPHONE CALL [...] appt. Reminded patient of how to reach [facility] or their surgeons office. Patient reminded to seek medical attention if they develop chest pain, a sudden onset of shortness of breath or persistent pain in the calf of their legs - BEST TO ALWAYS present to [facility] where you had your surgery Patient verbalized understanding of all advice and instructions given. COVID-19 Symptoms: none . Sakshi Porter RN documented in this encounterMercy Health St. [facility]06-16-2023 Miscellaneous Notes* Telephone Encounter - Sakshi Porter RN - 08/28/2022 9:08 AM EDT [facility] SPECIALTY CARE COORDINATION TELEPHONE ENCOUNTER KVM with call back number to check on pt documented in this encounterMercy Health St. [facility]06-16-[address] Umesh Liu [facility] August 28, 2022 3:58am Note Date/Time August 27, 2022 11:0 7pm [facility] Medical Records Department [address] [place] [address] Emergency Department Summary 08/27/22 MR#: [id number] Acct: [id number] Name: SEDA DE LEÓN Rep #:[id number] : 1995 27 From: Davion Calvo DO PCP: Care Physician,No Primary Status :DEP ER Location: ED HPI HPI - GI History of Present Illness Chief Complaint: Nausea/Vomiting Narrative Narrative: 27-year-old female presenting with nausea, vomiting. She states this started after surgery. Apparently she had gastric bypass 5 days ago at [facility] by Dr. Steel. She states it is an elective surgery. She states she contacted her surgeon a couple of days ago because she notes she had not been able to hold down much food. She is making less urine and stool is not quite diarrhea but not quite solid. She has had 2 bowel movements this week. She reports that every time she eats something she has pain in the left flank. It is sharp in nature. It does go away eventually. She is concerned she might be dehydrated because she has not been able to eat. She states that she called hersurgeon 2 days ago and they told her she needed to get stat lab work but did nothave her come to an office visit. She has not heard about her lab results. Shedenies fevers. She does states she is lightheaded and dizzy when she stands up. PFSH PFSH Home Medications vit no.95-ferrous fumarate 28 mg-folic acid 800 mcg tablet ( Multivitamins) 1 ea PO DAILY 02/14/18 [History Last Taken 10/16/19] acetaminophen 500 mg tablet 500 mg PO Q4H PRN PRN Pain Or Fever 05/24/19 [History Last Taken 05/24/19] metoclopramide HCl 10 mg tablet (Reglan) 10 mg PO Q6H PRN nausea and vomiting #14 tabs 08/28/22 [Rx Last Taken Unknown] sucralfate 100 mg/mL oral suspension (Carafate) 10 ml PO BID PRN epigastric pain#400 mL 08/28/22 [Rx Last Taken Unknown] Allergy/AdvReac Type Severity Reaction Status Date / Time cefdinir Allergy Vomiting Verified 08/27/22 21:55 morphine Allergy Rash Verified 08/27/22 21:55 peanut Allergy Anaphylaxis Verified 08/27/22 21:55 Social History Smoking Status: Never smoker ROS ROS ED Constitutional Constitutional ED: Denies chills or fever(s) ENT ENT ED: Denies rhinorrhea or sore throat Cardiovascular Cardiovascular: Reports other Details: Lightheadedness ; Denies chest pain Respiratory/Chest Respiratory/Chest: Denies cough or dyspnea Gastrointestinal Gastrointestinal: Reports abdominal pain, nausea and vomiting Genitourinary Genitourinary ED: Reports other Details: Decreased urine output ; Denies dysuria Musculoskeletal Musculoskeletal: Denies arthralgias Integumentary Denies abscess or Abrasions Neurologic Neurologic: Reports headache(s) Psychiatric Psychiatric: Denies anxiety or depression Endocrine Endocrinology: Denies polydipsia or polyphagia EXAM Physical Exam Const Vital Signs: 08/27/22 21:53 08/28/22 02:35 Temperature 98.3 F Temperature Source Temporal Pulse Rate 132 H 94 Respiratory Rate 18 17 Blood Pressure 145/94 H 123/87 H Blood Pressure Mean 111 99 Pulse Ox 98 100 Oxygen Delivery Method Room Air Room Air Positive well nourished General Appearance ED: NAD; Negative for pallor HEENT Reports dry mucous membranes normocephalic and atraumatic Mouth ED: Yes dry mucous membranes Mouth: dry mucous membranes Eyes PERRL Resp normal respiratory effort Effort and Inspection: Negative for respiratory distress Cardio regular rhythm Rate: tachycardic GI GI Narrative: TTP LUQ. Abdomen nonperitoneal. Surgical stitch sites look clean, dry, intact. Palpation: soft Neuro CN's II-XII intact bilaterally and moves all extremities Sensorium / Orientation: alert Motor Exam: strength 5/5 throughout Psych mental status grossly normal Skin General Skin Exam: Negative for jaundice or pallor MDM MDM MDM Narrative Medical decision making narrative: 27-year-old female presenting with left flank pain intermittently and nausea/vomiting. She has decreased output of urine and decree stool output because she cannot eat and drink. She is contacted her surgeon who had her do lab work but she has not seen the results. She has not been seen again by her surgeon. Differential includes postop infection, anemia, GI bleed, electrolyte abnormalities, dehydration, UTI, pyelonephritis, gastritis bowel perforation, bowel obstruction. Patient is given Reglan to help with her nausea. CBC to assess white blood cell count, hemoglobin, platelets, differential. BMP to assess, renal function, electrolytes. Liver function panel to assess the liver. Urinalysis to assess for UTI. CT of the abdomen pelvis with oral contrast willbe obtained as well. CBC shows a normal white count of 7.5. Hemoglobin 14.9, hematocrit 45.7, platelets 355. Creatinine is normal 1.84 electrolytes normal with exception of a potassium of 3.2. Urinalysis shows 150 ketones. No evidence of infection. CT of the abdomen pelvis shows a left ovarian cyst whichdoes not appear to be complex. There is no evidence of acute pathology otherwise. On reevaluation the patient is feeling much better. Heart rate has come down. She does not feel lightheaded anymore. She is not nauseous anymore with the Reglan. Potassium was repleted orally with 40 mill equivalents of p.o. potassium. She tolerated this well. I made several attempts to try to get a hold of the surgeon or the on-call surgeon for [facility] and I did not receive a phone call back. She did tell me she supposed to be on Protonix but she was given extended release by mistake and they told her not to take it because of she is status post gastric bypass. She does not know what they were supposed to substitute. I am going to place her on Carafate. She states the Reglan helped a lot somata give her Reglan for nausea. Return precautions were discussed. Patient discharged home in stable condition. Impression: 1. Postop abdominal pain 2. Left ovarian cyst 3. Nausea/vomiting 4. Dehydration 5. Hypokalemia Lab Data Labs: Laboratory Results - last 24 hr 08/27/22 08/27/22 08/28/22 22:46 22:46 00:40 WBC 7.5 RBC 5.31 Hgb 14.9 Hct 45.7 MCV 86.1 MCH 28.1 MCHC 32.6 RDW Std Deviation 42.7 RDW Coeff of Dorcas 13.9 Plt Count 355 MPV 10.9 Immature Gran % (Auto) 0.300 Neut % (Auto) 57.5 Lymph % (Auto) 29.9 Johnston % (Auto) 9.6 Eos % (Auto) 2.0 Baso % (Auto) 0.7 Absolute Neuts (auto) 4.3 Absolute Lymphs (auto) 2.24 Nucleated RBC % 0 Sodium 137 Potassium 3.2 L Chloride 105 Carbon Dioxide 19.0 L Anion Gap 13 BUN 10 Creatinine 0.84 Estim Creat Clear Calc 83.95 Est GFR (MDRD) Af Amer 105 Est GFR (MDRD) Non-Af 87 BUN/Creatinine Ratio 11.9 Glucose 94 Calcium 9.5 Total Bilirubin 0.30 Direct Bilirubin 0.11 AST 41 H ALT 114 H Alkaline Phosphatase 148 H Total Protein 7.7 Albumin 3.6 Globulin 4.1 Urine Color Yellow Urine Clarity Clear Urine pH 5.0 Ur Specific Cornell 1.030 Urine Protein 30 H Urine Glucose (UA) Normal Urine Ketones 150 A* Urine Occult Blood 25 H Urine Nitrite Negative Urine Bilirubin 1 H Urine Urobilinogen 4 H Ur Leukocyte Esterase 25 H Urine RBC 0-5 SEEN Urine WBC 0-5 SEEN Ur Squamous Epith Cells 0-5 SEEN Amorphous Sediment 1+ Urine Bacteria 2+ Hyaline Casts 5-10 SEEN Urine Mucus 1+ Radiography Diagnostic Testing: Clinical Impression(s) from Imaging Studies Abdomen CT 08/28/22 22:32 IMPRESSION: 1. Presumed recent cholecystectomy. No suspicious fluid collections. Mild band of atelectasis in the right lung base. Mild ventral body wall postoperative changes. 2. Gastrojejunostomy. Oral contrast reached most of the distal small bowel. Normal appendix. Moderate stool in the proximal half of the colon and in the sigmoid. 3. 5.4 cm left adnexal cystic lesion. Fairly simple by unenhanced CT but not fully evaluated. Recommendations: ACR White Paper guidelines (Ordoñez, et. al. JACR 2020;17(2):248-254) recommend pelvic ultrasound to better characterize this cyst. Electronically Signed: Rand Shrestha MD at 1:17 EDT , Discharge Plan Triage Chief Complaint: Nausea/Vomiting ED Provider: Davion Calvo Dx/Rx/DC Orders Prescriptions: New sucralfate [Carafate] 100 mg/mL suspension 10 ml PO BID PRN (Reason: epigastric pain) Qty: 400 0RF metoclopramide HCl [Reglan] 10 mg tablet 10 mg PO Q6H PRN (Reason: nausea and vomiting) Qty: 14 0RF No Action PNV cmb#95-ferrous fumarate-FA [ Multivitamins] 1 EACH tablet 1 ea PO DAILY acetaminophen 500 MG tablet 500 mg PO Q4H PRN PRN (Reason: Pain Or Fever) Primary Care Provider: Care Physician,No Primary Referrals: Care Physician,No Primary [Primary Care Provider] - Disposition Disposition: Home, Self Care What to do if you have Problems For any increased pain, shortness of breath, bleeding, nausea or vomiting, chestpain, or any unexpected problems, contact your Primary Care Provider. Call [facility] ([phone]) or report to the closest Emergency Room. Call 911 if necessary. 08/28/22357 <Electronically signed by Davion Calvo DO> Cosigner Signature (if applicable): CC: No Primary Care Physician ~ Signed [facility] Work Phone: [phone] Miscellaneous Notes* Telephone Encounter - Sakshi Porter RN - 08/26/2022 11:24 AM EDT BMI SPECIALTY CARE COORDINATION TELEPHONE ENCOUNTER 12:00 [...] what. I will advise and get back toher. [facility] of Past illness Narrative* Problem Noted [...] of this encounter (statuses as of 10/16/2022) [facility] of Past illness Narrative* Problem Noted [...] of this encounter (statuses as of 11/02/2022) [facility] Narrative* Problem Noted [...] of this encounter (statuses as of 11/03/2022) [facility] of [facility] illness Narrative* Problem Noted [...] of this encounter (statuses as of 11/06/2022) [facility] Narrative* Problem Noted [...] of this encounter (statuses as of 11/17/2022) [facility] of Past illness Narrative* Problem Noted [...] need Rhogam at 28 wks. Kimi Smith APRN.DONNYM Childhood asthma without complication 01/03/2018 10/31/2019 Overview: [...] of this encounter (statuses as of 11/20/2022) [facility] of Past illness Narrative* Problem Noted [...] of this encounter (statuses as of 12/02/2022) [facility] Narrative* Problem Noted [...] of this encounter (statuses as of 12/18/2022) [facility] Narrative* Problem Noted [...] of this encounter (statuses as of 01/01/2023) [facility] Narrative* Problem Noted [...] of this encounter (statuses as of 01/05/2023) [facility] Narrative* Problem Noted [...] of this encounter (statuses as of 01/17/2023) [facility] of [facility] illness Narrative* Problem Noted Date Diagnosed Date Resolved Date Morbid obesity with BMI of 40.0-44.9, adult 08/20/2022 10/16/2022 Obesity, Class III, BMI >= 40 08/04/2022 10/16/2022 COVID-19 virus infection 03/26/2021 Overview: 03/2021 Onychomycosis 11/29/2020 01/29/2023 Well adult exam 05/16/2020 10/16/2022 Overview: Last done: 05/16/20 Hx of gestational diabetes m ben, not currently 05/16/2020 01/29/2023 Last Assessment & [...] child 08/01/2018. TKRN Shortness of breath 06/15/2018 04/23/20 19 Abnormal glucose measurement 05/31/2018 08/05/2018 Overview: [...] of this encounter (statuses as of 01/29/2023) [facility] of Past illness Narrative* Problem Noted [...] 05/31/2018 08/05/2018 Overview: 05/31/2018 Elevated 1hr GTT. 1/ elevated with 3hr GTT - 2hr was [...] of this encounter (statuses as of 02/02/2023) [facility] of Past illness Narrative* Problem Noted [...] Kick counts. PTL precuations. F/u weekly. Angie L Jw, MD Short interval between pregn ancies affecting [...] as of this encounter (statuses as of 04/28/2023) [facility] Past illness Narrative* Problem Noted [...] as of this encounter (statuses as of 04/29/2023) [facility] of [facility] Narrative* Problem Noted [...] 05/31/2018 08/05/2018 Overview: 05/31/2018 Elevated 1hr GTT. 1 elevated with 3hr GTT - 2hr was [...] 12/30/2017 08/15/2019 Overview: 06/19/19-Declines aneuploidy screening. Kimi Simth APRN.SAM 03/16/2019. Patient desires nuchal ultrasound and genetic carrier screening testing. TKRN Mononucleosis 05/17/2013 06/21/2018 Tendonitis, Achilles, left 01/10/2013 0 06/21/2018 Lumbago 07/07/2011 06/21/2018 Spondylolysis of lumbar region 06/25/2011 10/31/2019 documented as of this encounter (statuses as of 04/30/2023) [facility] of Past illness Narrative* Problem Noted [...] 08/01/2018. TKRN Shortness of breath 06/15/2018 07/06/19 Abnormal glucose measurement 05/31/2018 08/05/2018 Overview: 05/31/2018 [...] as of this encounter (statuses as of 05/03/2023) [facility] of Past illness Narrative* Problem Noted [...] 05/31/2018 08/05/2018 Overview: 05/31/2018 Elevated 1hr GTT. 1 elevated with 3hr GTT - 2hr was [...] as of this encounter (statuses as of 05/04/2023) [facility] of Past illness Narrative* Problem Noted [...] 05/31/2018 08/05/2018 Overview: 05/31/2018 Elevated 1hr GTT. 1/ elevated with 3hr GTT - 2hr was [...] as of this encounter (statuses as of 05/19/2023) [facility] of Past illness Narrative* Problem Noted [...] 08/15/2019 Overview: 06/19/19-Declines aneuploidy screening. Kimi Smith APRN.DONNYM 03/16/2019. Patient desires nuchal ultrasound and genetic carrier screening testing. TKRN Mononucleosis 05/17/2013 06/21/2018 Tendonitis, Achilles, left 01/10/2013 0 06/21/2018 Lumbago 07/07/2011 06/21/2018 Spondylolysis of lumbar region 06/25/2011 10/31/2019 documented as of this encounter (statuses as of 05/20/2023) [facility] of [facility] illness Narrative* Problem Noted Date Diagnosed Date Resolved Date Morbid obesity with BMI of 40.0-44.9, adult 08/20/2022 10/16/2022 Obesity, Class III, BMI >= 40 08/04/2022 10/16/2022 COVID-19 virus infection 03/26/2021 Overview: 03/2021 Onychomycosis 11/29/2020 01/29/2023 Well adult exam 05/16/2020 10/16/2022 Overview: Last done: 05/16/20 Hx of gestational diabetes m ellitus, not currently 05/16/2020 01/29/2023 Last Assessment & [...] testing 12/30/2017 08/15/2019 Overview: 06/19/19-Declines aneuploidy screening. Kmii Smith APRN.SAM 03/16/2019. Patient desires nuchal ultrasound and genetic carrier screening testing. TKRN Mononucleosis 05/17/2013 06/21/2018 Tendonitis, Achilles, left 01/10/2013 0 06/21/2018 Lumbago 07/07/2011 06/21/2018 Spondylolysis of lumbar region 06/25/2011 10/31/2019 documented as of this encounter (statuses as of 05/24/2023) [facility] Narrative* Problem Noted [...] as of this encounter (statuses as of 05/26/2023) [facility] illness Narrative* Problem Noted [...] 40.88 kg/m . -scheduled for the surgery Short interval between pregn ancies affecting , [...] as of this encounter (statuses as of 05/27/2023) [facility] of Past illness Narrative* Problem Noted [...] 40.88 kg/m . -scheduled for the surgery Short interval between pregn ancies affecting , antepartum 06/15/2018 10/31/2019 Overview: 03/16/2019 Patient delivered her previous child 08/01/2018. TKRN Shortness of breath 06/15/2018 07/06/19 19 Abnormal glucose measurement 05/31/2018 08/05/2018 Overview: 05/31/2018 Elevated 1hr GTT. 1 elevated with 3hr GTT - 2hr was [...] 08/15/2019 Overview: 06/19/19-Declines aneuploidy screening. Kimi Smith APRN.DONNYM 03/16/2019. Patient desires nuchal ultrasound and genetic carrier screening testing. TKRN Mononucleosis 05/17/2013 06/21/2018 Tendonitis, Achilles, left 01/10/2013 0 06/21/2018 Lumbago 07/07/2011 06/21/2018 Spondylolysis of lumbar region 06/25/2011 10/31/2019 documented as of this encounter (statuses as of 05/27/2023) [facility] illness Narrative* Problem Noted Date Diagnosed Date Resolved Date Morbid obesity with BMI of 40.0-44.9, adult 08/20/2022 10/16/2022 Obesity, Class III, BMI >= 40 08/04/2022 10/16/2022 COVID-19 virus infection 03/26/2021 Overview: 03/2021 Onychomycosis 11/29/2020 01/29/2023 Well adult exam 05/16/2020 10/16/2022 Overview: Last done: 05/16/20 Hx of gestational diabetes m ellitus, not currently 05/16/2020 01/29/2023 Last Assessment & Plan: Assessment: resolved after Hemoglobin A1C (%) Date Value 05/16/2020 5.7 Acute upper respiratory infection 06/29/2019 10/31/2019 Overview: 06/29/2019 Pt being tested for COVID19 - results pending. SW Morbid obesity 03/22/2019 10/16/2022 Last Assessment & Plan: -Body mass index is 40.88 kg/m . -scheduled for the surgery Short interval between pregn ancies affecting , antepartum 06/15/2018 10/31/2019 Overview: 03/16/2019 Patient delivered her previous child 08/01/2018. TKRN Shortness of breath 06/15/2018 07/06/19 19 Abnormal glucose measurement 05/31/2018 08/05/2018 Overview: 05/31/2018 Elevated 1hr GTT. 1 elevated with 3hr GTT - 2hr was [...] as of this encounter (statuses as of 05/27/2023) [facility] of Past illness Narrative* Problem Noted [...] 40.88 kg/m . -scheduled for the surgery Short interval between pregn ancies affecting , [...] as of this encounter (statuses as of 05/27/2023) [facility] of Past illness Narrative* Problem Noted [...] 40.88 kg/m . -scheduled for the surgery Short interval between pregn ancies affecting , [...] as of this encounter (statuses as of 05/27/2023) [facility] of Past illness Narrative* Problem Noted [...] 40.88 kg/m . -scheduled for the surgery Short interval between pregn ancies affecting , antepartum 06/15/2018 10/31/2019 Overview: 03/16/2019 Patient delivered her previous child 08/01/2018. TKRN Shortness of breath 06/15/2018 07/06/19 19 Abnormal glucose measurement 05/31/2018 08/05/2018 Overview: 05/31/2018 Elevated 1hr GTT. 1 elevated with 3hr GTT - 2hr was [...] as of this encounter (statuses as of 05/31/2023) [facility] of Past illness Narrative* Problem Noted [...] 40.88 kg/m . -scheduled for the surgery Short interval between pregn ancies affecting , antepartum 06/15/2018 10/31/2019 Overview: 03/16/2019 Patient delivered her previous child 08/01/2018. TKRN Shortness of breath 06/15/2018 07/06/19 19 Abnormal glucose measurement 05/31/2018 08/05/2018 Overview: 05/31/2018 Elevated 1hr GTT. 1 elevated with 3hr GTT - 2hr was [...] as of this encounter (statuses as of 06/01/2023) [facility] of [facility] illness Narrative* Problem Noted Date Diagnosed Date Resolved Date Morbid obesity with BMI of 40.0-44.9, adult 08/20/2022 10/16/2022 Obesity, Class III, BMI >= 40 08/04/2022 10/16/2022 COVID-19 virus infection 03/26/2021 Overview: 03/2021 Onychomycosis 11/29/2020 01/29/2023 Well adult exam 05/16/2020 10/16/2022 Overview: Last done: 05/16/20 Hx of gestational diabetes m ben, not currently 05/16/2020 01/29/2023 Last Assessment & Plan: Assessment: resolved after Hemoglobin A1C (%) Date Value 05/16/2020 5.7 Acute upper respiratory infection 06/29/2019 10/31/2019 Overview: 06/29/2019 Pt being tested for COVID19 - results pending. SW Morbid obesity 03/22/2019 10/16/2022 Last Assessment & Plan: -Body mass index is 40.88 kg/m . -scheduled for the surgery Short interval between pregn ancies affecting , antepartum 06/15/2018 10/31/2019 Overview: 03/16/2019 Patient delivered her previous child 08/01/2018. TKRN Shortness of breath 06/15/2018 07/06/19 19 Abnormal glucose measurement 05/31/2018 08/05/2018 Overview: 05/31/2018 Elevated 1hr GTT. 1/ elevated with 3hr GTT - 2hr was [...] as of this encounter (statuses as of 06/01/2023) [facility] of Past illness Narrative* Problem Noted [...] 40.88 kg/m . -scheduled for the surgery Short interval between pregn ancies affecting , [...] as of this encounter (statuses as of 06/02/2023) [facility] of Past illness Narrative* Problem Noted Date Diagnosed Date Resolved Date Morbid obesity with BMI of 40.0-44.9, adult 08/20/2022 10/16/2022 Obesity, Class III, BMI >= 40 08/04/2022 10/16/2022 COVID-19 virus infection 03/26/2021 Overview: 03/2021 Onychomycosis 11/29/2020 01/29/2023 Well adult exam 05/16/2020 10/16/2022 Overview: Last done: 05/16/20 Hx of gestational diabetes m ben, not currently 05/16/2020 01/29/2023 Last Assessment & Plan: Assessment: resolved after Hemoglobin A1C (%) Date Value 05/16/2020 5.7 Acute upper respiratory infection 06/29/2019 10/31/2019 Overview: 06/29/2019 Pt being tested for COVID19 - results pending. SW Morbid obesity 03/22/2019 10/16/2022 Last Assessment & Plan: -Body mass index is 40.88 kg/m . -scheduled for the surgery Short interval between pregn ancies affecting , [...] as of this encounter (statuses as of 06/02/2023) [facility] of Past illness Narrative* Problem Noted [...] 40.88 kg/m . -scheduled for the surgery Short interval between pregn ancies affecting , antepartum 06/15/2018 10/31/2019 Overview: 03/16/2019 Patient delivered her previous child 08/01/2018. TKRN Shortness of breath 06/15/2018 07/06/19 19 Abnormal glucose measurement 05/31/2018 08/05/2018 Overview: 05/31/2018 Elevated 1hr GTT. 1 elevated with 3hr GTT - 2hr was [...] as of this encounter (statuses as of 06/03/2023) [facility] Past illness Narrative* Problem Noted [...] 40.88 kg/m . -scheduled for the surgery Short interval between pregn ancies affecting , [...] as of this encounter (statuses as of 06/07/2023) [facility] Past illness Narrative* Problem Noted [...] 40.88 kg/m . -scheduled for the surgery Short interval between pregn ancies affecting , antepartum 06/15/2018 10/31/2019 Overview: 03/16/2019 Patient delivered her previous child 08/01/2018. TKRN Shortness of breath 06/15/2018 07/06/19 19 Abnormal glucose measurement 05/31/2018 08/05/2018 Overview: 05/31/2018 Elevated 1hr GTT. 1 elevated with 3hr GTT - 2hr was [...] as of this encounter (statuses as of 06/15/2023) [facility] illness Narrative* Problem Noted Date Diagnosed Date Resolved Date Morbid obesity with BMI of 40.0-44.9, adult 08/20/2022 10/16/2022 Obesity, Class III, BMI >= 40 08/04/2022 10/16/2022 COVID-19 virus infection 03/26/2021 Overview: 03/2021 Onychomycosis 11/29/2020 01/29/2023 Well adult exam 05/16/2020 10/16/2022 Overview: Last done: 05/16/20 Hx of gestational diabetes m ellitus, not currently 05/16/2020 01/29/2023 Last Assessment & Plan: Assessment: resolved after Hemoglobin A1C (%) Date Value 05/16/2020 5.7 Acute upper respiratory infection 06/29/2019 10/31/2019 Overview: 06/29/2019 Pt being tested for COVID19 - results pending. SW Morbid obesity 03/22/2019 10/16/2022 Last Assessment & Plan: -Body mass index is 40.88 kg/m . -scheduled for the surgery Short interval between pregn ancies affecting , antepartum 06/15/2018 10/31/2019 Overview: 03/16/2019 Patient delivered her previous child 08/01/2018. TKRN Shortness of breath 06/15/2018 07/06/19 19 Abnormal glucose measurement 05/31/2018 08/05/2018 Overview: 05/31/2018 Elevated 1hr GTT. 1 elevated with 3hr GTT - 2hr was [...] as of this encounter (statuses as of 06/18/2023) [facility] Instructions* Patient Instructions* Ivett Krueger, RD - 08/11/2022 1:12 PM EDT Nutrition Intervention: [...] fish, low fat dairy - cottage cheese, Czech yogurt, light yogurt, cheese, ricotta cheese, nuts, [...] - Celebrate: multiple options- look on website [email or web address] - [employer]: 1 Multivitamin and Calcium Citrate twice a day (total of 1200- 1500 mg/day) * take calcium citrate separately from Multivitamin with iron at least 2 hours apart and 4 hours apart from additional calcium www.[email or web address] - Bariatric Choice: 4 complete multivitamins (chewable) per day [email or web address] - Bariatric Advantage: 2 Multivitamins and 3 Calcium Citrate Chewable per day * take calcium citrate separately from Multivitamin with iron at least 2 hours apart and 4 hours apart from additional calcium www.bariatricadRedOwl Analyticsage.[employer] B complex with at least 75 mg [...] 2 weeks post op [facility] History of Present illness Narrative* Ivett Krueger RD - 08/11/2022 12:45 PM EDT his [...] visit. Either the patient or their legal physician relations representative has been informed of the risks [...] fish, low fat dairy - cottage cheese, Czech yogurt, light yogurt, cheese, ricotta cheese, nuts, [...] and 4 hours apart from additional calcium www.[employer] - Bariatric Choice: 4 complete multivitamins (chewables) per day www.bariatricchoice.com - Bariatric Advantage: 2 Multivitamins and 3 Calcium Citrate Chewables per day * take calcium citrate separately from Multivitamin with iron at least 2 hours apart and 4 hours apart from additional calcium www.bariatricadvantage.com - Barimelts Www.[email or web address] - Bariatric Pal www.[email or web address].com B complex with [...] Readings: Date: Ht: 08/04/2022 160 cm (5' 3) Current weight: Last 1 Encounter Wt Readings: [...] fish, low fat dairy - cottage cheese, Czech yogurt, light yogurt, cheese, ricotta cheese, nuts, [...] - Celebrate: multiple options- look on website [email or web address] - [employer]: 1 Multivitamin and Calcium Citrate twice a day (total of 1200- 1500 mg/day) * take calcium citrate separately from Multivitamin with iron at least 2 hours apart and 4 hours apart from additional calcium www.[email or web address] - Bariatric Choice: 4 complete multivitamins (chewable) per day Www.[email or web address] - Bariatric Advantage: 2 Multivitamins and 3 Calcium Citrate Chewable per day * take calcium citrate separately from Multivitamin with iron at least 2 hours apart and 4 hours apart from additional calcium www.bariatricadRedOwl [email or web address] B complex with at least 75 mg [...] Consult: 25 minutes - Group Signed by: Ivett Krueger RDN, LD, MFN documented in this encounter[facility] Miscellaneous Notes* Telephone Encounter - Sakshi Porter RN - 08/11/2022 11:44 AM EDT BMI SPECIALTY CARE COORDINATION TELEPHONE ENCOUNTER Dr Yost spoke with pt and gave her alternative ideas. I will check up on her in a couple days to see how she is tolerating the diet. documented in [facility] Miscellaneous Notes* Telephone Encounter - Sakshi Porter RN - 08/11/2022 10:38 AM EDT BMI SPECIALTY CARE COORDINATION TELEPHONE ENCOUNTER Pt complains [...] then she called nursing. documented in [facility] Miscellaneous Notes* Telephone Encounter - Priya Kaminski RN - 08/11/2022 9:44 AM EDT Please see pt Priya Kaminski RN August 11, 2022 9:44 AM * Telephone Encounter - Patsy Polk - 08/11/2022 9:37 AM EDT Seda De León is calling David Rogers RD today with concern regarding request to speak to a nurse. She states that she has not been able to keep anything down. Going on day 6 today. No chief complaint on file. Patient has been identified by name and birthdate. Duration of symptoms: 6 days Person calling: self Call patient at: on cell [phone] (home) [phone] (cell) Was an appointment scheduled: Yes: Date/Time: today Closing statement: Symptom Call: Thank you for [facility], your call is very important. A nurse will call in approximately 2-4 hours during business hours. If this is an emergency, please contact 911. Patsy Pride documented in [facility] encounter[facility] History of Present illness Narrative* Lila Tobar LPN - 06/02/2022 9:09 AM EDT Patient presents for EKG per Cristy Platt CNP. Denies any problems at this time. Tolerated procedure well. Lila Tobar LPN documented in this encounterMer[facility]03[facility] History of Present illness Narrative* Cristy Platt APRN.CNP - 05/28/2022 7:59 AM EDT BMI Obesity Medicine Initial Bariatric Surgery Consult May 28, 2022 Consultation requested by Kelly Can CNP for an opinion regarding Obesity. My final recommendations will be communicated back to the requesting physician by way of shared Medical record or letterto requesting physician via US mail. 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 Snoring : [...] of lumbar region 06/25/2011 No history of MT, COPD, asthma, peptic ulcer disease, dyslipidemia, hypothyroidism, [...] Hives, Shortness of Breath given medication at [facility] ER and reacted Peanuts Swelling redness [...] normal, no suspicious rashes or lesions Impression Seda De León is a 26 year old [...] perioperative plan. If she is considering a Susana-en Y gastric bypass, I counseled her that [...] which included preparing to see the patient, [id number] patient care, completing clinical documentation, obtaining and/or reviewing separately obtained history, performing a medically appropriate examination, counseling and educating the pat ient/family/caregiver, ordering medications, tests, or procedures, and independently interpreting results (not separately reported). Cristy Platt APRN.FLORECITA documented in this encounterMercy [facility]07-22-2022 History of Present illness Narrative* Cory Yost MD - 10/03/2021 10:00 AM EDT BARIATRIC H&P/PRE-OPERATIVE CONSULT SERVICE DATE: 10/03/2021 SERVICE TIME: 10AM PRIMARY CARE PHYSICIAN: Shakeel Villasenor MD Subjective Patient presents to discuss bariatric surgery options for weight loss. Patient referred by Dr. Can. CHIEF COMPLAINT: Discussion of surgical weight loss, morbid obesity HPI: Seda De León is a 26 year old [...] maybe 8-10 miles a day (works for [employer]), feels that she doesn't lose weight even [...] Hives, Shortness of Breath given medication at [facility] ER and reacted Peanuts Swelling redness REVIEW OF SYSTEMS: General: no fevers or chills Neuro: No history of stroke or neurological problems. Respiratory: No SOB or cough. No asthma. No snoring/BRYSON Cardiovascular: No HTN, no CHF or MT. GI: No abdominal pain. No reflux or [...] 120/82 Pulse 85 Ht 159.2 cm (5' 2.66) Wt 105.8 kg (233 lb 3.2 oz) [...] individual. SIGNATURE: Yokasta Manzo MD PATIENT NAME: Seda De León DATE: October 03, 2021 TIME: 10:16 AM Medical Decision Making: Problems: Moderate: 1+ chronic illnesses with change Data: Unique source(s) for external note(s) reviewed: 3+ Unique test result(s) reviewed: 2 Independent interpretation of test from other physician/QHCP Risk: High: Decision on elective major surgery w/ risk factors Medical Decision Making Level: 5 - High documented in this encounterMercy [facility]06-10-2022 History of Present illness Narrative* Kayy RAYMOND Longo.BLENDER LABORER - 08/22/2021 2:38 PM EDT Seda is a 26 year old who presents [...] L2 SAB0 IAB0 Ectopic0 Multiple0 Live Births2 Steel Fabricator History LMP: 07/22/2021 (Exact Date), Having periods Age at Menarche: Age at First : Age at Menopause: Steel Fabricator History Comments: Sexual Activity: Yes; Male Contraception: [...] external genitalia normal, normal Bartholin's glands, urethra, [place]'s glands, no vulvar lesions, no cervical lesions, [...] needed Kayy Longo APRN.CNP documented in this encounterMercy [facility]06-06-2022 Miscellaneous Notes* Telephone Encounter - Kelly Can APRN.CNP - 08/18/2021 3:37 PM EDT Prescription sent for generic equivalent. The following approved medication requests have been transmitted electronically. Signed Prescriptions Disp Refills naltrexone-bupropion (CONTRAVE) 8-90 mg ER tablet 60 tablet 0 Sig: Take 1 tablet by mouth twice daily. Authorizing Provider: KELLY CAN APRN.CNP documented in this encounterMer[facility]06-06-2022 Miscellaneous Notes* Telephone Encounter - Kelly Can [...] your call and can be reached at [phone] after 12 pm today. Marla Valentine LPN documented in this encounterMercy [facility]05-10-2022 Instructions* Patient Instructions* Kimi Jeffrey APRN.CNP - [...] No follow-ups on file. documented in this encounterMercy Health St. [facility]05-10-2022 History of Present illness Narrative* Kimi Jeffrey APRN.CNP - 07/22/2021 11:07 AM EDT This note was created using [employer]. Subjective Seda De León is a 26 year old female. 26 year old female Acute onset 07/16/21 citing she felt tired and slept 18 hours 07/17/21 states developed +body aches +fever + chills unable to tolerate PO +emesis +diarrhea + headache States immediately after eating anything. Denies cough or congestion. Denies accompanying URI sx. States she feels like she is getting worse. 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 States 21 month old recently ill, attends daycare. States that he is feeling better. States similarsymptoms. States she took Immodium and tylenol. The history is provided by the patient. No russian language instructor was used. Illness The current episode started [...] red flags Hemodynamically stable Will cover with Zomoi here in clinic, RX for same - COVID WITH FLUA+B, ROUTINE-obtained BRAT diet Follow up with Dr. Villasenor if symptoms persist - ONDANSETRON 4 MG DISINTEGRATING TABLET Kimi Jeffrey APRN.BLENDER LABORER documented in this encounterMercy [facility]09-20-2021 NoteHNO ID: [id number] Author: Bekah Momin DPM Service: Podiatry Author [...] Urine NEG 09/10/2015 Nitrites NEG 09/10/2015 Specific [place], Ur >=1.030 08/30/2018 Protein, Urine trace 10/16/2019 Leukocytes NEG 09/10/2015 Type AND screen: No Medical Clearance: Yes CXR/EKG: N/A Medications/Preop Antibiotics: Ancef ALLERGIES Allergen Reactions - Cefdinir Vomiting - Morphine Hives, Shortness of Breath given medication at [facility] ER and reacted - Peanuts Swelling redness Surgical site identified: Yes NPO: Yes IV Fluids: Yes Risks and benefits, complications, treatment options, expected outcome and rehabilitation explained, patient understands. All questions were entertained and answered. Patient wishes to proceed with above procedure(s). SIGNATURE: Bekah Momin DPM PATIENT NAME: Seda De León DATE: December 02, 2020 TIME: 1:58 PM PAGER:[phone] History of Present illness Narrative* Kayla Tobar Tech (Tech) - 01/12/2020 8:10 AM EDT Radiology Service Progress Note PATIENT NAME: Seda De León DATE OF SERVICE: January 12, 2020 TIME: 8:12 AM PATIENT IDENTITY VERIFICATION COMPLETED USING TWO (2) IDENTIFIERS: Name and Date of confirmedby patient verbally. FALL SCREENING: Has the patient had 2 falls in the last year or 1 fall with injury or currently using an Ambulatory Assistive Device (Walker, Cane, Wheelchair, Crutches, etc.)? No PATIENT GENDER DATA: Female. status: : No status: NO. PATIENT RELEVANT IMPLANT DATA REVIEWED: Not Applicable RADIOLOGY DEPARTMENT: General X-ray: Exam(s) Completed: Upper Extremity X- Ray(s): Wrist, left : PERIPHERAL IV DATA: Not applicable SIGNED BY: Rina Cardozo January 12, 2020 8:12 AM documented in this encounterMercy Health St. [facility]04-16-2020 History of Past illness Narrative* Problem Noted [...] of this encounter (statuses as of 07/22/2021) [facility] History of Past illness Narrative* Problem Noted [...] of this encounter (statuses as of 08/18/2021) [facility] History of Past illness Narrative* Problem Noted [...] of this encounter (statuses as of 08/18/2021) [facility] History of Past illness Narrative* Problem Noted [...] of this encounter (statuses as of 08/19/2021) [facility] History of Past illness Narrative* Problem Noted [...] of this encounter (statuses as of 08/22/2021) [facility] History of Past illness Narrative* Problem Noted [...] of this encounter (statuses as of 10/03/2021) [facility] History of Past illness Narrative* Problem Noted [...] of this encounter (statuses as of 05/28/2022) [facility] History of Past illness Narrative* Problem Noted [...] of this encounter (statuses as of 06/02/2022) [facility] History of Past illness Narrative* Problem Noted [...] measurement 05/31/2018 Overview: 05/31/2018 Elevated 1hr GTT. 1 elevated with 3hr GTT - 2hr was [...] of this encounter (statuses as of 07/03/2022) [facility] History of Past illness Narrative* Problem Noted [...] negative will need Rhogam at 28 wks. Kmii Smith APRN.SAM Childhood asthma without complication 01/03/2018 [...] of this encounter (statuses as of 08/11/2022) [facility] History of Past illness Narrative* Problem Noted [...] of this encounter (statuses as of 08/11/2022) [facility] of Past illness Narrative* Problem Noted [...] of this encounter (statuses as of 08/26/2022) [facility] History of Past illness Narrative* Problem Noted [...] need Rhogam at 28 wks. Kimi Smith APRN.DONNYM Childhood asthma without complication 01/03/2018 10/31/2019 Overview: [...] of this encounter (statuses as of 08/28/2022) [facility] of Past illness Narrative* Problem Noted [...] of this encounter (statuses as of 08/28/2022) [facility] of Past illness Narrative* Problem Noted [...] of this encounter (statuses as of 08/31/2022) [facility] of Past illness Narrative* Problem Noted [...] of this encounter (statuses as of 09/04/2022) [facility] of Past illness Narrative* Problem Noted [...] need Rhogam at 28 wks. Kimi Smith APRN.DONNYM Childhood asthma without complication 01/03/2018 10/31/2019 Overview: [...] of this encounter (statuses as of 09/18/2022) [facility] History of Past illness Narrative* Problem Noted Date Diagnosed Date Resolved Date Acute upper respiratory infection 06/29/2019 10/31/2019 Overview: 06/29/2019 Pt being tested for COVID19 - results pending. SW Polyhydramnios in third trimester 07/05/2018 08/05/2018 Overview: July 05, 2018 D/w her risks. NSTs weekly. Kick counts. PTL precuations. F/u weekly. Angie Mroa MD Short interval between pregn ancies affecting [...] of this encounter (statuses as of 09/29/2022) [facility]* Diagnosis Viral illness- Primary Unspecified viral infection, in conditions classified elsewhere and of unspecified site Nausea and vomiting, unspecified vomiting type documented in this encounter [facility]* Diagnosis Obesity, Class III, BMI 40-49.9 (morbid obesity) (HCC)- Primary Morbid obesity documented in this encounter [facility]* Diagnosis Obesity, Class III, BMI 40-49.9 (morbid obesity) (HCC) Morbid obesity documented [facility] this [facility]* Diagnosis Encounter for gynecological examination (general) (routine) without abnormal findings- Primary Screening for cervical cancer Screening for malignant neoplasm of the cervix Encounter for screening for human papillomavirus (HPV) Special screening examination for human papillomavirus (HPV) Encounter for surveillance of vaginal ring hormonal contraceptive device documented in this encounter [facility]* Diagnosis Body mass index 40.0-44.9, adult (HCC)- Primary Body Mass Index 40.0-44.9, adult documented in this encounter [facility]* Diagnosis Body mass index 40.0-44.9, adult (HCC)- Primary Body Mass Index 40.0-44.9, adult documented [facility]* Diagnosis Body mass index 40.0-44.9, adult (HCC) Body Mass Index 40.0-44.9, adult documented [facility]* Diagnosis Morbid obesity (HCC)- Primary Morbid obesity Preoperative examination Preoperative examination, unspecified documented in this encounter [facility] note* Diagnosis BMI 40.0-44.9, adult (HCC)- Primary Body Mass Index 40.0-44.9, adult Dietary counseling Dietary surveillance and counseling Morbid obesity (HCC) Morbid obesity Preoperative examination Preoperative examination, unspecified documented in this encounter [facility] note* Diagnosis Left upper quadrant abdominal pain- Primary Leg cramping Cramp of limb documented in this encounter [facility] noteNo assessment information availableWClermont County [facility] Work Phone: Evaluation note* Diagnosis Transaminitis- Primary Nonspecific elevation of levels of transaminase or lactic acid dehydrogenase (LDH) documented in this encounter [facility] note* Diagnosis Bariatric surgery status- Primary documented in this encounter [facility] note* Diagnosis Food intolerance- Primary Other specified intestinal malabsorption Bariatric surgery status documented in this encounter [facility] note* Diagnosis NO SHOW- Primary documented in this encounter [facility] note* Diagnosis Encounter for gynecological examination without abnormal finding- Primary Routine gynecological examination Pelvic pain in female Unspecified symptom associated with female genital organs Breast cyst, left documented in this encounter [facility] note* Diagnosis Sinobronchitis- Primary Unspecified sinusitis (chronic) Strep pharyngitis Streptococcal sore throat [facility]* Diagnosis Sinobronchitis Unspecified sinusitis (chronic) documented [facility]* Diagnosis Left ovarian cyst- Primary Other and unspecified ovarian cyst documented [facility]* Diagnosis , location unknown- Primary state, incidental documented [facility] this encounter [facility]* Diagnosis Lower abdominal pain- Primary Abdominal pain, other specified site documented [facility] this [facility]* Diagnosis 10 weeks gestation of - Primary state, incidental with uncertain dates in first trimester History of gastric bypass Bariatric surgery status Hx of gestational diabetes mellitus, not currently Personal history of gestational diabetes documented in this [facility]* Diagnosis , location unknown state, incidental documented in this encounter [facility]* Diagnosis Breast cyst, left documented in this encounter [facility]* Diagnosis Supervision of high risk in second trimester- Primary Unspecified high-risk History of gastric bypass Bariatric surgery status 14 weeks gestation of state, incidental documented in this encounter [facility]* Diagnosis Supervision of high risk in second trimester- Primary Unspecified high-risk History of gastric bypass Bariatric surgery status Rh negative state in antepartum period Rhesus isoimmunization affecting management of mother, antepartum condition Need for vaccination Need for prophylactic vaccination and inoculation against unspecified single disease 27 weeks gestation of state, incidental documented [facility] this encounter [facility]* Diagnosis Anemia during in second trimester- Primary Impaired intestinal absorption Unspecified intestinal malabsorption documented [facility] this [facility]* Diagnosis Maternal iron deficiency anemia complicating , third trimester Impaired intestinal absorption Unspecified intestinal malabsorption documented in this [facility]* Diagnosis Gestational diabetes mellitus, class A1- Primary Abnormal maternal glucose tolerance, complicating , childbirth, or the puerperium, unspecified as to episode of care Supervision of high risk in second trimester Unspecified high-risk Anemia during in second trimester 30 weeks gestation of state, incidental documented [facility] this [facility]* Diagnosis Maternal iron deficiency anemia complicating , third trimester- Primary Impaired intestinal absorption Unspecified intestinal malabsorption documented [facility]* Diagnosis Diet controlled gestational diabetes mellitus (GDM) in third trimester- Primary Gestational diabetes mellitus, class A1 Abnormal maternal glucose tolerance, complicating , childbirth, or the puerperium, unspecified as to episode of care History of gastric bypass Bariatric surgery status Dietary counseling Dietary surveillance and counseling documented in this [facility]* Diagnosis Gestational diabetes mellitus, class A1- Primary Abnormal maternal glucose tolerance, complicating , childbirth, or the puerperium, unspecified as to episode of care Supervision of high risk in second trimester Unspecified high-risk History of gastric bypass Bariatric surgery status History of gestational hypertension Polyhydramnios in cash in third trimester documented in this [facility]* Diagnosis Insulin controlled gestational diabetes mellitus (GDM) in third trimester- Primary Polyhydramnios in third trimester complication, single or unspecified fetus History of gastric bypass Bariatric surgery status Anemia during in third trimester 31 weeks gestation of state, incidental documented [facility]* Diagnosis Insulin controlled gestational diabetes mellitus (GDM) in third trimester- Primary Polyhydramnios in third trimester complication, single or unspecified fetus documented [facility]* Diagnosis Insulin controlled gestational diabetes mellitus (GDM) in third trimester- Primary documented [facility]* Diagnosis Maternal iron deficiency anemia complicating , third trimester- Primary Impaired intestinal absorption Unspecified intestinal malabsorption 32 weeks gestation of state, incidental Supervision of high risk in second trimester Unspecified high-risk Insulin controlled gestational diabetes mellitus (GDM) in third trimester History of gastric bypass Bariatric surgery status documented [facility]* Diagnosis 32 weeks gestation of - Primary state, incidental Supervision of high risk in second trimester Unspecified high-risk Insulin controlled gestational diabetes mellitus (GDM) in third trimester History of gastric bypass Bariatric surgery status History of gestational hypertension documented [facility]* Diagnosis Insulin controlled gestational diabetes mellitus (GDM) in third trimester Polyhydramnios in third trimester complication, single or unspecified fetus documented [facility]* Diagnosis Maternal iron deficiency anemia complicating , third trimester- Primary Impaired intestinal absorption Unspecified intestinal malabsorption [facility]* Diagnosis Insulin controlled gestational diabetes mellitus (GDM) in third trimester- Primary 32 weeks gestation of state, incidental Polyhydramnios in third trimester complication, single or unspecified fetus Anemia during in third trimester documented [facility] encounter [facility]* Diagnosis Onset Date Resolution Status 29 weeks gestation of acute History of gastric bypass ac egegik Uterine cramping acute 33 weeks gestation of acute Gestational diabetes requiring insulin acute Headache in , antepartum acute [facility] Work Phone: Evaluation note* Diagnosis 33 weeks gestation of - Primary state, incidental Insulin controlled gestational diabetes mellitus (GDM) in third trimester Polyhydramnios in third trimester complication, single or unspecified fetus documented [facility] this [facility]* Diagnosis Insulin controlled gestational diabetes mellitus (GDM) in third trimester- Primary Polyhydramnios in third trimester complication, single or unspecified fetus History of gastric bypass Bariatric surgery status 34 weeks gestation of state, incidental [facility]* Diagnosis Supervision of other high risk pregnancies, third trimester- Primary 34 weeks gestation of state, incidental Polyhydramnios in third trimester complication, single or unspecified fetus Insulin controlled gestational diabetes mellitus (GDM) in third trimester History of gastric bypass Bariatric surgery status Anemia during in third trimester documented [facility] this [facility]* Diagnosis Insulin controlled gestational diabetes mellitus (GDM) in third trimester- Primary Polyhydramnios in third trimester complication, single or unspecified fetus Supervision of other high risk pregnancies, third trimester 35 weeks gestation of state, incidental documented [facility]* Diagnosis Encounter for ultrasound to check growth- Primary Encounter for routine screening for malformation using ultrasonics Insulin controlled gestational diabetes mellitus (GDM) in third trimester Polyhydramnios in third trimester complication, single or unspecified fetus 35 weeks gestation of state, incidental documented [facility] this encounter [facility]* Diagnosis Supervision of other high risk pregnancies, third trimester- Primary Insulin controlled gestational diabetes mellitus (GDM) in third trimester Polyhydramnios in third trimester complication, single or unspecified fetus 35 weeks gestation of state, incidental History of gastric bypass Bariatric surgery status documented in this encounter [facility]* Diagnosis Onset Date Resolution Status 29 weeks gestation of acute History of gastric bypass ac [place] Uterine cramping acute 33 weeks gestation of acute Gestational diabetes requiring insulin acute Headache in , antepartum resolved 33 weeks gestation of acute Gestational diabetes requiring insulin acute History of gastric bypass [place] Nausea and vomiting during acute Headache in , antepartum resolved 36 weeks gestation of acute Headache in acute [facility] Work Phone: Evaluation note* Diagnosis History of gastric bypass- Primary Bariatric surgery status Insulin controlled gestational diabetes mellitus (GDM) in third trimester Polyhydramnios in third trimester complication, single or unspecified fetus 36 weeks gestation of state, incidental documented in this encounter [facility] note* Diagnosis Onset Date Resolution Status 29 weeks gestation of acute History of gastric bypass [place] Uterine cramping acute 33 weeks gestation of acute Gestational diabetes requiring insulin acute Headache in , antepartum resolved 33 weeks gestation of acute Gestational diabetes requiring insulin acute History of gastric bypass [place] Nausea and vomiting during acute Headache in , antepartum resolved 36 weeks gestation of acute Headache in acute 36 weeks gestation of acute Gestational diabetes requiring insulin acute History of gastric bypass [place] History of gestational hypertension acute Polyhydramnios affecting acute Rh negative state in antepartum period acute Vaginal bleeding acute Vaginal delivery acute [facility] Work Phone: Evaluation note* Diagnosis Routine follow-up- Primary Impaired glucose tolerance in , delivered Abnormal maternal glucose tolerance, with delivery documented in this encounter [facility]* Diagnosis Pelvic pain in female- Primary Unspecified symptom associated with female genital organs documented in this encounter [facility] note* Diagnosis Pelvic pain in female Unspecified symptom associated with female genital organs documented in this encounter [facility] note* Diagnosis Ovarian cyst, left- Primary Other and unspecified ovarian cyst documented in this encounter [facility] note* Diagnosis Pre-operative examination- Primary Preoperative examination, unspecified Onychomycosis Dermatophytosis of nail 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HCC) Spina bifida with hydrocephalus, unspecified region Hx of gestational diabetes mellitus, not currently Personal history of gestational diabetes History of gestational hypertension Morbid obesity (HCC) Morbid obesity Body mass index 40.0-44.9, adult (HCC) Body Mass Index 40.0-44.9, adult documented in this encounter [facility] note* Diagnosis Pre-operative examination- Primary Preoperative examination, unspecified Onychomycosis Dermatophytosis of nail 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HCC) Spina bifida with hydrocephalus, unspecified region Hx of gestational diabetes mellitus, not currently Personal history of gestational diabetes History of gestational hypertension Morbid obesity (HCC) Morbid obesity Ovarian cyst, left Other and unspecified ovarian cyst documented in this encounter [facility] note* Diagnosis Acute pain of left wrist Pre-operative examination- Primary Preoperative examination, unspecified Onychomycosis Dermatophytosis of nail 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HCC) Spina bifida with hydrocephalus, unspecified region Hx of gestational diabetes mellitus, not currently Personal history of gestational diabetes History of gestational hypertension Morbid obesity (HCC) Morbid obesity 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HCC) Spina bifida with hydrocephalus, unspecified region Hx of gestational diabetes mellitus, not currently Personal history of gestational diabetes History of gestational hypertension Morbid obesity (HCC) Morbid obesity Ovarian cyst, left- Primary Other and unspecified ovarian cyst documented in this encounter 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HCC) Spina bifida with hydrocephalus, unspecified region Hx of gestational diabetes mellitus, not currently Personal history of gestational diabetes History of gestational hypertension Morbid obesity (HCC) Morbid obesity Missed menses- Primary Absence of menstruation documented in this encounter 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HCC) Spina bifida with hydrocephalus, unspecified region Hx of gestational diabetes mellitus, not currently Personal history of gestational diabetes History of gestational hypertension Morbid obesity (HCC) Morbid obesity Encounter for test, result positive- Primary examination or test, positive result documented in this encounter [facility] note* Diagnosis Pre-operative examination- Primary Preoperative examination, unspecified Onychomycosis Dermatophytosis of nail 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HCC) Spina bifida with hydrocephalus, unspecified region Hx of gestational diabetes mellitus, not currently Personal history of gestational diabetes History of gestational hypertension Morbid obesity (HCC) Morbid obesity Complete - Primary Unspecified , without mention of complication, complete Ovarian cyst, left Other and unspecified ovarian cyst Encounter for initial prescription of vaginal ring hormonal contraceptive documented in this encounter 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HCC) Spina bifida with hydrocephalus, unspecified region Hx of gestational diabetes mellitus, not currently Personal history of gestational diabetes History of gestational hypertension Morbid obesity (HCC) Morbid obesity Missed menses- Primary Absence of menstruation documented in this encounter 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HCC) Spina bifida with hydrocephalus, unspecified region Hx of gestational diabetes mellitus, not currently Personal history of gestational diabetes History of gestational hypertension Morbid obesity (HCC) Morbid obesity Missed menses- Primary Absence of menstruation Date of last menstrual period (LMP) unknown 6 weeks gestation of state, incidental Paratubal cyst Other noninflammatory disorder of ovary, fallopian tube, and broad ligament documented in this encounter 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HCC) Spina bifida with hydrocephalus, unspecified region Hx of gestational diabetes mellitus, not currently Personal history of gestational diabetes History of gestational hypertension Morbid obesity (HCC) Morbid obesity Encounter for supervision of normal in multigravida- Primary Screening for cervical cancer Screening for malignant neoplasm of the cervix 8 weeks gestation of state, incidental Encounter for anatomic survey Hx of gestational diabetes in prior , currently with other poor obstetric history documented in this encounter 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HCC) Spina bifida with hydrocephalus, unspecified region Hx of gestational diabetes mellitus, not currently Personal history of gestational diabetes History of gestational hypertension Morbid obesity (HCC) Morbid obesity Anemia affecting in first trimester- Primary documented in this 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HCC) Spina bifida with hydrocephalus, unspecified region Hx of gestational diabetes mellitus, not currently Personal history of gestational diabetes History of gestational hypertension Morbid obesity (HCC) Morbid obesity Encounter for supervision of normal in multigravida- Primary Hx of gestational diabetes in prior , currently with other poor obstetric history Anemia affecting in second trimester 12 weeks gestation of state, incidental Rh negative state in antepartum period Rhesus isoimmunization affecting management of mother, antepartum condition History of gastric bypass Bariatric surgery status History of gestational hypertension Anemia complicating , second trimester documented in this encounter 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HCC) Spina bifida with hydrocephalus, unspecified region Hx of gestational diabetes mellitus, not currently Personal history of gestational diabetes History of gestational hypertension Morbid obesity (HCC) Morbid obesity Encounter for screening for malformation using ultrasound- Primary 12 weeks gestation of state, incidental documented in this encounter [facility]* Diagnosis Pre-operative examination- Primary Preoperative examination, unspecified Onychomycosis Dermatophytosis of nail 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HCC) Spina bifida with hydrocephalus, unspecified region Hx of gestational diabetes mellitus, not currently Personal history of gestational diabetes History of gestational hypertension Morbid obesity (HCC) Morbid obesity Anemia, unspecified type- Primary documented in this encounter [facility] note* Diagnosis Pre-operative examination- Primary Preoperative examination, unspecified Onychomycosis Dermatophytosis of nail 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HCC) Spina bifida with hydrocephalus, unspecified region Hx of gestational diabetes mellitus, not currently Personal history of gestational diabetes History of gestational hypertension Morbid obesity (HCC) Morbid obesity 17 weeks gestation of - Primary state, incidental Encounter for supervision of normal in multigravida Anemia affecting , antepartum Diet controlled gestational diabetes mellitus (GDM) in second trimester Other iron deficiency anemia Impaired intestinal absorption Unspecified intestinal malabsorption * Assessment & Plan Note - Angie Mora MD - 05/31/2024 4:30 PM EDT Associated Problem(s): Anemia affecting , antepartum h/o gastric bypass, iron levels still low despite attempt at po fe, referral for IVfe * Assessment & Plan Note - Angie Mora MD - 05/31/2024 4:30 PM EDT Associated Problem(s): Diet controlled gestational diabetes mellitus (GDM) in second trimester h/o gastric bypass, normal [id number] earlier in . However, now BS is significantly elevated. D/w her need recording of trends to determine if needs treatment. Consider endocrine referaly and consider continuous glucose monitoring. COnsider GDM as strong h/o of it and will not have her do 1 hras has dumping syndrome. BS difficult to control last . States glucose strips are new within a month and monitor is from last and in good working order. Checked BS at work and reading was simliar to her monitor F/u for anatomy US or prn. Send BS log in within a week for review. * Assessment & Plan Note - Angie Mora MD - 05/31/2024 4:30 PM EDT Associated Problem(s): Anemia Orders: BLOOD MANAGEMENT REFERRAL * Assessment & Plan Note - Angie Mora MD - 05/31/2024 4:30 PM EDT Associated Problem(s): Impaired intestinal absorption due to gastric bypass * Assessment & Plan Note - Angie Mora MD - 05/31/2024 4:15 PM EDT Associated Problem(s): Encounter for supervision of normal in multigravida 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HCC) Spina bifida with hydrocephalus, unspecified region Hx of gestational diabetes mellitus, not currently Personal history of gestational diabetes History of gestational hypertension Morbid obesity (HCC) Morbid obesity 17 weeks gestation of - Primary state, incidental Encounter for supervision of normal in multigravida Anemia affecting , antepartum Diet controlled gestational diabetes mellitus (GDM) in second trimester Other iron deficiency anemia Impaired intestinal absorption Unspecified intestinal malabsorption Maternal iron deficiency anemia complicating , second trimester- [facility] Pre-operative examination- Primary Preoperative examination, unspecified Onychomycosis Dermatophytosis of nail 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HCC) Spina bifida with hydrocephalus, unspecified region Hx of gestational diabetes mellitus, not currently Personal history of gestational diabetes History of gestational hypertension Morbid obesity (HCC) Morbid obesity 17 weeks gestation of ([facility])- Primary state, incidental Encounter for supervision of normal in multigravida ([facility]) Anemia affecting , antepartum ([facility]) Diet controlled gestational diabetes mellitus (GDM) in second trimester ([facility]) Other iron deficiency anemia Impaired intestinal absorption ([facility]) Unspecified intestinal malabsorption Insulin controlled gestational diabetes mellitus (GDM) in second trimester ([facility])- Primary Anemia Anemia, unspecified Rh negative state in antepartum period ([facility]) Rhesus isoimmunization affecting management of mother, antepartum condition Hx of gestational diabetes in prior , currently ([facility]) with other poor obstetric history History of gastric bypass Bariatric surgery status History of gestational hypertension Prematurity of fetus ([facility]) Other infants, unspecified (weight) 19 weeks gestation of ([facility]) state, incidental Maternal iron deficiency anemia complicating , second trimester ([facility])- Primary Impaired intestinal absorption ([facility]) Unspecified intestinal malabsorption History of gastric bypass Bariatric surgery status documented in this encounter [facility] note* Diagnosis Pre-operative examination- Primary Preoperative examination, unspecified Onychomycosis Dermatophytosis of nail 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HCC) Spina bifida with hydrocephalus, unspecified region Hx of gestational diabetes mellitus, not currently Personal history of gestational diabetes History of gestational hypertension Morbid obesity (HCC) Morbid obesity 17 weeks gestation of ([facility])- Primary state, incidental Encounter for supervision of normal in multigravida ([facility]) Anemia affecting , antepartum ([facility]) Diet controlled gestational diabetes mellitus (GDM) in second trimester ([facility]) Other iron deficiency anemia Impaired intestinal absorption ([facility]) Unspecified intestinal malabsorption Insulin controlled gestational diabetes mellitus (GDM) in second trimester ([facility])- Primary Anemia Anemia, unspecified Rh negative state in antepartum period ([facility]) Rhesus isoimmunization affecting management of mother, antepartum condition Hx of gestational diabetes in prior , currently ([facility]) with other poor obstetric history History of gastric bypass Bariatric surgery status History of gestational hypertension Prematurity of fetus ([facility]) Other infants, unspecified (weight) 19 weeks gestation of ([facility]) state, incidental Insulin controlled gestational diabetes mellitus (GDM) in second trimester ([facility])- Primary 20 weeks gestation of ([facility]) state, incidental documented in this encounter [facility] note* Diagnosis Pre-operative examination- Primary Preoperative examination, unspecified Onychomycosis Dermatophytosis of nail 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HCC) Spina bifida with hydrocephalus, unspecified region Hx of gestational diabetes mellitus, not currently Personal history of gestational diabetes History of gestational hypertension Morbid obesity ([facility]) Morbid obesity 17 weeks gestation of ([facility])- Primary state, incidental Encounter for supervision of normal in multigravida ([facility]) Anemia affecting , antepartum ([facility]) Diet controlled gestational diabetes mellitus (GDM) in second trimester ([facility]) Other iron deficiency anemia Impaired intestinal absorption ([facility]) Unspecified intestinal malabsorption Insulin controlled gestational diabetes mellitus (GDM) in second trimester ([facility])- Primary Anemia Anemia, unspecified Rh negative state in antepartum period ([facility]) Rhesus isoimmunization affecting management of mother, antepartum condition Hx of gestational diabetes in prior , currently ([facility]) with other poor obstetric history History of gastric bypass Bariatric surgery status History of gestational hypertension Prematurity of fetus ([facility]) Other infants, unspecified (weight) 19 weeks gestation of ([facility]) state, incidental Hx of gestational diabetes in prior , currently ([facility])- Primary with other poor obstetric history documented in this encounter [facility] note* Diagnosis Pre-operative examination- Primary Preoperative examination, unspecified Onychomycosis Dermatophytosis of nail 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[facility]) Spina bifida with hydrocephalus, unspecified region Hx of gestational diabetes mellitus, not currently Personal history of gestational diabetes History of gestational hypertension Morbid obesity ([facility]) Morbid obesity 17 weeks gestation of ([facility])- Primary state, incidental Encounter for supervision of normal in multigravida ([facility]) Anemia affecting , antepartum ([facility]) Diet controlled gestational diabetes mellitus (GDM) in second trimester ([facility]) Other iron deficiency anemia Impaired intestinal absorption ([facility]) Unspecified intestinal malabsorption Anemia Anemia, unspecified Rh negative state in antepartum period ([facility]) Rhesus isoimmunization affecting management of mother, antepartum condition Hx of gestational diabetes in prior , currently ([facility]) with other poor obstetric history History of gastric bypass Bariatric surgery status History of gestational hypertension Prematurity of fetus (HCC) Other infants, unspecified (weight) 20 weeks gestation of ([facility])- Primary state, incidental Insulin controlled gestational diabetes mellitus (GDM) in second trimester ([facility]) Anemia, unspecified type Rh negative state in antepartum period ([facility]) Rhesus isoimmunization affecting management of mother, antepartum condition Encounter for supervision of normal in multigravida ([facility]) documented in this [facility]* Diagnosis Pre-operative examination- Primary Preoperative examination, unspecified Onychomycosis Dermatophytosis of nail 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[facility]) Spina bifida with hydrocephalus, unspecified region Hx of gestational diabetes mellitus, not currently Personal history of gestational diabetes History of gestational hypertension Morbid obesity ([facility]) Morbid obesity 17 weeks gestation of ([facility])- Primary state, incidental Encounter for supervision of normal in multigravida ([facility]) Anemia affecting , antepartum ([facility]) Diet controlled gestational diabetes mellitus (GDM) in second trimester ([facility]) Other iron deficiency anemia Impaired intestinal absorption ([facility]) Unspecified intestinal malabsorption Anemia Anemia, unspecified Rh negative state in antepartum period ([facility]) Rhesus isoimmunization affecting management of mother, antepartum condition Hx of gestational diabetes in prior , currently ([facility]) with other poor obstetric history History of gastric bypass Bariatric surgery status History of gestational hypertension Prematurity of fetus ([facility]) Other infants, unspecified (weight) Maternal iron deficiency anemia complicating , second trimester ([facility])- Primary Impaired intestinal absorption ([facility]) Unspecified intestinal malabsorption History of gastric bypass Bariatric surgery status documented in this [facility]* Diagnosis Pre-operative examination- Primary Preoperative examination, unspecified Onychomycosis Dermatophytosis of nail 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HCC) Spina bifida with hydrocephalus, unspecified region Hx of gestational diabetes mellitus, not currently Personal history of gestational diabetes History of gestational hypertension Morbid obesity ([facility]) Morbid obesity 17 weeks gestation of ([facility])- Primary state, incidental Encounter for supervision of normal in multigravida ([facility]) Anemia affecting , antepartum ([facility]) Diet controlled gestational diabetes mellitus (GDM) in second trimester ([facility]) Other iron deficiency anemia Impaired intestinal absorption ([facility]) Unspecified intestinal malabsorption Anemia Anemia, unspecified Rh negative state in antepartum period ([facility]) Rhesus isoimmunization affecting management of mother, antepartum condition Hx of gestational diabetes in prior , currently ([facility]) with other poor obstetric history History of gastric bypass Bariatric surgery status History of gestational hypertension Prematurity of fetus (HCC) Other infants, unspecified (weight) Encounter for anatomic survey ([facility])- Primary Encounter for anatomic survey Pre-existing diabetes mellitus in in second trimester ([facility]) Diabetes mellitus, antepartum 20 weeks gestation of ([facility]) state, incidental documented in this encounter [facility] note* Diagnosis Pre-operative examination- Primary Preoperative examination, unspecified Onychomycosis Dermatophytosis of nail 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[facility]) Spina bifida with hydrocephalus, unspecified region Hx of gestational diabetes mellitus, not currently Personal history of gestational diabetes History of gestational hypertension Morbid obesity ([facility]) Morbid obesity 17 weeks gestation of ([facility])- Primary state, incidental Encounter for supervision of normal in multigravida ([facility]) Anemia affecting , antepartum ([facility]) Diet controlled gestational diabetes mellitus (GDM) in second trimester ([facility]) Other iron deficiency anemia Impaired intestinal absorption ([facility]) Unspecified intestinal malabsorption Anemia Anemia, unspecified Rh negative state in antepartum period ([facility]) Rhesus isoimmunization affecting management of mother, antepartum condition Hx of gestational diabetes in prior , currently ([facility]) with other poor obstetric history History of gastric bypass Bariatric surgery status History of gestational hypertension Prematurity of fetus ([facility]) Other infants, unspecified (weight) Insulin controlled gestational diabetes mellitus (GDM) in second trimester ([facility])- Primary 20 weeks gestation of ([facility]) state, incidental Diabetes mellitus type 1, controlled, without complications ([facility]) Type I (juvenile type) diabetes mellitus without mention of complication, not stated as uncontrolled 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[facility]) Spina bifida with hydrocephalus, unspecified region Hx of gestational diabetes mellitus, not currently Personal history of gestational diabetes History of gestational hypertension Morbid obesity ([facility]) Morbid obesity 17 weeks gestation of ([facility])- Primary state, incidental Encounter for supervision of normal in multigravida ([facility]) Anemia affecting , antepartum ([facility]) Diet controlled gestational diabetes mellitus (GDM) in second trimester (HCC) Other iron deficiency anemia Impaired intestinal absorption (HCC) Unspecified intestinal malabsorption Anemia Anemia, unspecified Rh negative state in antepartum period (HCC) Rhesus isoimmunization affecting management of mother, antepartum condition Hx of gestational diabetes in prior , currently (HCC) with other poor obstetric history History of gastric bypass Bariatric surgery status History of gestational hypertension Prematurity of fetus (HCC) Other infants, unspecified (weight) Maternal iron deficiency anemia complicating , second trimester ([facility])- Primary Impaired intestinal absorption ([facility]) Unspecified intestinal malabsorption History of gastric bypass Bariatric surgery status 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[facility]) Spina bifida with hydrocephalus, unspecified region Hx of gestational diabetes mellitus, not currently Personal history of gestational diabetes History of gestational hypertension Morbid obesity ([facility]) Morbid obesity 17 weeks gestation of ([facility])- Primary state, incidental Encounter for supervision of normal in multigravida ([facility]) Anemia affecting , antepartum ([facility]) Diet controlled gestational diabetes mellitus (GDM) in second trimester ([facility]) Other iron deficiency anemia Impaired intestinal absorption ([facility]) Unspecified intestinal malabsorption Anemia Anemia, unspecified Rh negative state in antepartum period ([facility]) Rhesus isoimmunization affecting management of mother, antepartum condition Hx of gestational diabetes in prior , currently ([facility]) with other poor obstetric history History of gastric bypass Bariatric surgery status History of gestational hypertension Prematurity of fetus (HCC) Other infants, unspecified (weight) Supervision of high risk in second trimester ([facility])- Primary Unspecified high-risk Insulin controlled gestational diabetes mellitus (GDM) in second trimester ([facility]) Anemia, unspecified type 25 weeks gestation of ([facility]) state, incidental * Assessment & Plan Note - Jimmie Jules MD - 07/24/2024 8:52 AM EDT Associated Problem(s): Insulin controlled gestational diabetes mellitus (GDM) in second trimester ([facility]) Sees endocrinology tomorrow- will need insulin adjusted- runs 70s before meals but can spike to 200s after. Last time endocrinology removed her short acting insulin before meals- b/c dropping too low. - pt reports running low during night - reviewed poor sleep and impact on BS levels - Reviewed nutrition and decreasing carbs- increasing protein. - Growth us starting 28 weeks - NSTs starting 32 weeks - BPPs?? May need twice weekly testing if still not well controlled Orders: URINE OB DIP B/O Insulin Douglas, Disposable, (PEN NEEDLE) 32 gauge x 5/32; 1 each as needed. OBSTETRIC ULTRASOUND WHI; Standing * Assessment & Plan Note - Jimmie Jules MD - 07/24/2024 8:52 AM EDT Associated Problem(s): Anemia Continue IV iron Orders: URINE OB DIP B/O 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[facility]) Spina bifida with hydrocephalus, unspecified region Hx of gestational diabetes mellitus, not currently Personal history of gestational diabetes History of gestational hypertension Morbid obesity ([facility]) Morbid obesity 17 weeks gestation of ([facility])- Primary state, incidental Encounter for supervision of normal in multigravida ([facility]) Anemia affecting , antepartum ([facility]) Diet controlled gestational diabetes mellitus (GDM) in second trimester ([facility]) Other iron deficiency anemia Impaired intestinal absorption ([facility]) Unspecified intestinal malabsorption Anemia Anemia, unspecified Rh negative state in antepartum period ([facility]) Rhesus isoimmunization affecting management of mother, antepartum condition Hx of gestational diabetes in prior , currently ([facility]) with other poor obstetric history History of gastric bypass Bariatric surgery status History of gestational hypertension Prematurity of fetus ([facility]) Other infants, unspecified (weight) Supervision of high risk in second trimester ([facility])- Primary Unspecified high-risk Insulin controlled gestational diabetes mellitus (GDM) in second trimester ([facility]) Anemia, unspecified type 25 weeks gestation of ([facility]) state, incidental 28 weeks gestation of ([facility])- Primary state, incidental Supervision of high risk in second trimester ([facility]) Unspecified high-risk Insulin controlled gestational diabetes mellitus (GDM) in second trimester ([facility]) Rh negative state in antepartum period ([facility]) Rhesus isoimmunization affecting management of mother, antepartum condition Need for vaccination Need for prophylactic vaccination and inoculation against unspecified single disease Request for sterilization documented in this 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HCC) Spina bifida with hydrocephalus, unspecified region Hx of gestational diabetes mellitus, not currently Personal history of gestational diabetes History of gestational hypertension Morbid obesity ([facility]) Morbid obesity 17 weeks gestation of ([facility])- Primary state, incidental Encounter for supervision of normal in multigravida ([facility]) Anemia affecting , antepartum ([facility]) Diet controlled gestational diabetes mellitus (GDM) in second trimester ([facility]) Other iron deficiency anemia Impaired intestinal absorption ([facility]) Unspecified intestinal malabsorption Anemia Anemia, unspecified Rh negative state in antepartum period ([facility]) Rhesus isoimmunization affecting management of mother, antepartum condition Hx of gestational diabetes in prior , currently ([facility]) with other poor obstetric history History of gastric bypass Bariatric surgery status History of gestational hypertension Prematurity of fetus ([facility]) Other infants, unspecified (weight) Supervision of high risk in second trimester ([facility])- Primary Unspecified high-risk Insulin controlled gestational diabetes mellitus (GDM) in second trimester ([facility]) Anemia, unspecified type 25 weeks gestation of ([facility]) state, incidental Encounter for ultrasound to check growth ([facility])- Primary Encounter for routine screening for malformation using ultrasonics Insulin controlled gestational diabetes mellitus (GDM) in second trimester ([facility]) 28 weeks gestation of ([facility]) state, incidental documented in 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HCC) Spina bifida with hydrocephalus, unspecified region Hx of gestational diabetes mellitus, not currently Personal history of gestational diabetes History of gestational hypertension Morbid obesity ([facility]) Morbid obesity 17 weeks gestation of ([facility])- Primary state, incidental Encounter for supervision of normal in multigravida ([facility]) Anemia affecting , antepartum ([facility]) Diet controlled gestational diabetes mellitus (GDM) in second trimester ([facility]) Other iron deficiency anemia Impaired intestinal absorption ([facility]) Unspecified intestinal malabsorption Anemia Anemia, unspecified Rh negative state in antepartum period ([facility]) Rhesus isoimmunization affecting management of mother, antepartum condition Hx of gestational diabetes in prior , currently ([facility]) with other poor obstetric history History of gastric bypass Bariatric surgery status History of gestational hypertension Prematurity of fetus ([facility]) Other infants, unspecified (weight) Supervision of high risk in second trimester ([facility])- Primary Unspecified high-risk Insulin controlled gestational diabetes mellitus (GDM) in second trimester ([facility]) Anemia, unspecified type 25 weeks gestation of ([facility]) state, incidental Polyhydramnios in third trimester complication, single or unspecified fetus ([facility])- Primary Insulin controlled gestational diabetes mellitus (GDM) in second trimester ([facility]) Rh negative state in antepartum period ([facility]) Rhesus isoimmunization affecting management of mother, antepartum condition Supervision of high risk in second trimester ([facility]) Unspecified high-risk Anemia, unspecified type 30 weeks gestation of ([facility]) state, incidental documented in 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[facility]) Spina bifida with hydrocephalus, unspecified region Hx of gestational diabetes mellitus, not currently Personal history of gestational diabetes History of gestational hypertension Morbid obesity ([facility]) Morbid obesity 17 weeks gestation of ([facility])- Primary state, incidental Encounter for supervision of normal in multigravida ([facility]) Anemia affecting , antepartum ([facility]) Diet controlled gestational diabetes mellitus (GDM) in second trimester ([facility]) Other iron deficiency anemia Impaired intestinal absorption ([facility]) Unspecified intestinal malabsorption Anemia Anemia, unspecified Rh negative state in antepartum period ([facility]) Rhesus isoimmunization affecting management of mother, antepartum condition Hx of gestational diabetes in prior , currently ([facility]) with other poor obstetric history History of gastric bypass Bariatric surgery status History of gestational hypertension Prematurity of fetus ([facility]) Other infants, unspecified (weight) Supervision of high risk in second trimester ([facility])- Primary Unspecified high-risk Insulin controlled gestational diabetes mellitus (GDM) in second trimester ([facility]) Anemia, unspecified type 25 weeks gestation of ([facility]) state, incidental Insulin controlled gestational diabetes mellitus (GDM) in third trimester ([facility]) [O24.414]- Primary documented in 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HCC) Spina bifida with hydrocephalus, unspecified region Hx of gestational diabetes mellitus, not currently Personal history of gestational diabetes History of gestational hypertension Morbid obesity ([facility]) Morbid obesity 17 weeks gestation of ([facility])- Primary state, incidental Encounter for supervision of normal in multigravida ([facility]) Anemia affecting , antepartum ([facility]) Diet controlled gestational diabetes mellitus (GDM) in second trimester ([facility]) Other iron deficiency anemia Impaired intestinal absorption ([facility]) Unspecified intestinal malabsorption Anemia Anemia, unspecified Rh negative state in antepartum period ([facility]) Rhesus isoimmunization affecting management of mother, antepartum condition Hx of gestational diabetes in prior , currently ([facility]) with other poor obstetric history History of gastric bypass Bariatric surgery status History of gestational hypertension Prematurity of fetus ([facility]) Other infants, unspecified (weight) Supervision of high risk in second trimester ([facility])- Primary Unspecified high-risk Insulin controlled gestational diabetes mellitus (GDM) in second trimester ([facility]) Anemia, unspecified type 25 weeks gestation of ([facility]) state, incidental Diabetes mellitus type 1, controlled, without complications ([facility]) Type I (juvenile type) diabetes mellitus without mention of complication, not stated as uncontrolled documented 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HCC) Spina bifida with hydrocephalus, unspecified region Hx of gestational diabetes mellitus, not currently Personal history of gestational diabetes History of gestational hypertension Morbid obesity ([facility]) Morbid obesity 17 weeks gestation of ([facility])- Primary state, incidental Encounter for supervision of normal in multigravida ([facility]) Anemia affecting , antepartum ([facility]) Diet controlled gestational diabetes mellitus (GDM) in second trimester ([facility]) Other iron deficiency anemia Impaired intestinal absorption ([facility]) Unspecified intestinal malabsorption Anemia Anemia, unspecified Rh negative state in antepartum period ([facility]) Rhesus isoimmunization affecting management of mother, antepartum condition Hx of gestational diabetes in prior , currently ([facility]) with other poor obstetric history History of gastric bypass Bariatric surgery status History of gestational hypertension Prematurity of fetus (HCC) Other infants, unspecified (weight) Supervision of high risk in second trimester ([facility])- Primary Unspecified high-risk Insulin controlled gestational diabetes mellitus (GDM) in second trimester ([facility]) Anemia, unspecified type 25 weeks gestation of ([facility]) state, incidental Encounter for ultrasound to check growth ([facility])- Primary Encounter for routine screening for malformation using ultrasonics Insulin controlled gestational diabetes mellitus (GDM) in second trimester ([facility]) 31 weeks gestation of ([facility]) state, incidental Polyhydramnios in third trimester complication, single or unspecified fetus (HCC)- Primary Insulin controlled gestational diabetes mellitus (GDM) in second trimester ([facility]) Anemia affecting , antepartum ([facility]) 31 weeks gestation of ([facility]) state, incidental documented in this encounter [facility] note* Diagnosis Pre-operative examination- Primary Preoperative examination, unspecified Onychomycosis Dermatophytosis of nail 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[facility]) Spina bifida with hydrocephalus, unspecified region Hx of gestational diabetes mellitus, not currently Personal history of gestational diabetes History of gestational hypertension Morbid obesity ([facility]) Morbid obesity 17 weeks gestation of ([facility])- Primary state, incidental Encounter for supervision of normal in multigravida ([facility]) Anemia affecting , antepartum ([facility]) Diet controlled gestational diabetes mellitus (GDM) in second trimester ([facility]) Other iron deficiency anemia Impaired intestinal absorption ([facility]) Unspecified intestinal malabsorption Anemia Anemia, unspecified Rh negative state in antepartum period ([facility]) Rhesus isoimmunization affecting management of mother, antepartum condition Hx of gestational diabetes in prior , currently ([facility]) with other poor obstetric history History of gastric bypass Bariatric surgery status History of gestational hypertension Prematurity of fetus ([facility]) Other infants, unspecified (weight) Supervision of high risk in second trimester ([facility])- Primary Unspecified high-risk Insulin controlled gestational diabetes mellitus (GDM) in second trimester ([facility]) Anemia, unspecified type 25 weeks gestation of ([facility]) state, incidental Polyhydramnios in third trimester complication, single or unspecified fetus (HCC)- Primary Insulin controlled gestational diabetes mellitus (GDM) in second trimester ([facility]) Anemia affecting , antepartum ([facility]) 31 weeks gestation of ([facility]) state, incidental * Assessment & Plan Note - Chelsea Navarro MD - 09/07/2024 10:21 AM EDTAssociated Problem(s): Polyhydramnios (HCC) Growth US today with BPP 10/20 Orders: URINE OB DIP B/O * Assessment & Plan Note - Chelsea Navarro MD - 09/07/2024 10:21 AM EDTAssociated Problem(s): Insulin controlled gestational diabetes mellitus (GDM) in second trimester ([facility]) Managed by endocrinology. Patient reports BS are getting better. testing at 32 weeks. Orders: URINE OB DIP B/O Blood-Glucose Sensor (FREESTYLE DELORIS 3 PLUS SENSOR) ira; Please change every 15 days * Assessment & Plan Note - Chelsea Navarro MD - 09/07/2024 10:21 AM EDTAssociated Problem(s): Anemia affecting , antepartum ([facility]) Continue iron PO. S/p IV iron. Orders: URINE OB DIP B/O 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[facility]) Spina bifida with hydrocephalus, unspecified region Hx of gestational diabetes mellitus, not currently Personal history of gestational diabetes History of gestational hypertension Morbid obesity (HCC) Morbid obesity 17 weeks gestation of ([facility])- Primary state, incidental Encounter for supervision of normal in multigravida ([facility]) Anemia affecting , antepartum ([facility]) Diet controlled gestational diabetes mellitus (GDM) in second trimester ([facility]) Other iron deficiency anemia Impaired intestinal absorption ([facility]) Unspecified intestinal malabsorption Anemia Anemia, unspecified Rh negative state in antepartum period ([facility]) Rhesus isoimmunization affecting management of mother, antepartum condition Hx of gestational diabetes in prior , currently ([facility]) with other poor obstetric history History of gastric bypass Bariatric surgery status History of gestational hypertension Prematurity of fetus (HCC) Other infants, unspecified (weight) Supervision of high risk in second trimester (HCC)- Primary Unspecified high-risk Insulin controlled gestational diabetes mellitus (GDM) in second trimester (HCC) Anemia, unspecified type 25 weeks gestation of (HCC) state, incidental Polyhydramnios in third trimester complication, single or unspecified fetus (HCC)- Primary Insulin controlled gestational diabetes mellitus (GDM) in second trimester (HCC) Anemia affecting , antepartum (HCC) 31 weeks gestation of (HCC) state, incidental Insulin controlled gestational diabetes mellitus (GDM) in second trimester (HCC)- Primary 33 weeks gestation of (HCC) state, incidental Polyhydramnios in third trimester complication, single or unspecified fetus (HCC) Anemia affecting , antepartum (HCC) documented [facility] Author Sandra Edwards [facility] July 02, 2023 3:23pm Note Date/Time July 02, 2023 3:2 3pm [facility] Medical Records Department [address] [place] [address] OB Triage Physician Note 07/02/23 1521 MR#: [id number] Acct: [id number] Name: SEDA DE LEÓN Rep #:[id number] : 1995 28 From: Sandra Edwards DO PCP: SHAYY Alejandro Status:EDGAR Lennon Location: FU206-1 HPI - General General Date of Admission: 07/02/23 Date of Service: 07/02/23 Chief Complaint: rule out pre e HPI Narrative SEDA DE LEÓN, is a 28 F who presents with headache, vision changes that resolve when she removes her glasses, RUQ pain when she pushes on her abdomen. The headache has been present for days and is noted at her last visit. Maternal Data Information BELEM Calculator Estimated Delivery Date Method Current WG Current Estimate 07/27/23 Manual 36w 3d PFSH [facility] Medical History Gestational diabetes Gestational diabetes Home Medications vit no.95-ferrous fumarate 28 mg-folic acid 800 mcg tablet ( Multivitamins) 1 ea PO DAILY 02/14/18 [History Last Taken 10/16/19] acetaminophen 500 mg tablet 500 mg PO Q4H PRN PRN Pain Or Fever 05/24/19 [History Last Taken 05/24/19] aspirin 81 mg tablet,delayed release (Adult Low Dose Aspirin) 81 mg PO DAILY 05/17/23 [History Last Taken Unknown] ferrous sulfate 325 mg (65 mg iron) tablet (Feosol) 325 mg PO DAILY 05/17/23 [History Last Taken Unknown] insulin NPH isoph U-100 human 100 unit/mL (3 mL) subcutaneous pen (Humulin N NPHU-100 Insulin KwikPen) 10 unit (0.1 mL) subcut QHS #0 mL 06/10/23 [Rx Last Taken Unknown] insulin NPH isoph U-100 human 100 unit/mL (3 mL) subcutaneous pen (Humulin N NPHU-100 Insulin KwikPen) 20 unit (0.2 mL) subcut BREAKFAST #0 mL 06/10/23 [Rx Last Taken Unknown] Allergy/AdvReac Type Severity Reaction Status Date / Time cefdinir Allergy Vomiting Verified 06/11/23 22:20 morphine Allergy Rash Verified 06/11/23 22:20 peanut Allergy Anaphylaxis Verified 06/11/23 22:20 Social History household members: children Smoking Status: Never smoker History Elective abortions Hx Para 1 Spontaneous abortions Hx # Term Pregnancies Ectopic pregnancies Hx # Pregnancies Multiple births # of living children 07/02/23 1523 <Electronically signed by Sandra Edwards DO> Date _ Sandra Edwards DO Cosigner Signature (if applicable): Date CC: Dr. Sandra Edwards DO; SHAYY Alejandro ~ Signed [facility] Work Phone: History and physical note Author Sandra Edwards [facility] July 02, 2023 4:00pm Note Date/Time July 02, 2023 3:5 2pm [facility] Medical Records Department [address] [place] [address] OB Triage Physician Note 07/02/23 1548 MR#: [id number] Acct: [id number] Name: SEDA DE LEÓN Rep #:[id number] : 1995 28 From: Sandra Edwards DO PCP: SHAYY Alejandro Status:REG C МАРИНА Lennon [id number] H[facility] - General General Date of Admission: 07/02/23 Date of Service: 07/02/23 Chief Complaint: rule out pre e HPI Narrative SEDA DE LEÓN, is a 28 F who presents with a headache. She has had an off and on headache for a few days. She says today the headache feels different because it is more generalized rather than frontal. She feels it is a pulsating DIEGO 7/10 andnot improved with Tylenol this morning. She reports vision changes when she takes her glasses off. She has nausea but no vomiting. Eating OK. She has a sharp RUQ pain when she pushes on her upper abdomen. No ctx, vb, lof. Good FM. She had an appointment this morning and says she was going to mention the headache, but forgot to discuss her headache at the visit. She was seen earlier this week for an appointment and had a headache at that time. She has been checking her blood pressures at home and states they have all been normal. Maternal Data Information BELEM Calculator Estimated Delivery Date Method Current WG Current Estimate 07/27/23 Manual 36w 3d PFSH [facility] Medical History Gestational diabetes Gestational diabetes Home Medications vit no.95-ferrous fumarate 28 mg-folic acid 800 mcg tablet ( Multivitamins) 1 ea PO DAILY 02/14/18 [History Last Taken 10/16/19] acetaminophen 500 mg tablet 500 mg PO Q4H PRN PRN Pain Or Fever 05/24/19 [History Last Taken 05/24/19] aspirin 81 mg tablet,delayed release (Adult Low Dose Aspirin) 81 mg PO DAILY 05/17/23 [History Last Taken Unknown] ferrous sulfate 325 mg (65 mg iron) tablet (Feosol) 325 mg PO DAILY 05/17/23 [History Last Taken Unknown] insulin NPH isoph U-100 human 100 unit/mL (3 mL) subcutaneous pen (Humulin N NPHU-100 Insulin KwikPen) 10 unit (0.1 mL) subcut QHS #0 mL 06/10/23 [Rx Last Taken Unknown] insulin NPH isoph U-100 human 100 unit/mL (3 mL) subcutaneous pen (Humulin N NPHU-100 Insulin KwikPen) 20 unit (0.2 mL) subcut BREAKFAST #0 mL 06/10/23 [Rx Last Taken Unknown] Allergy/AdvReac Type Severity Reaction Status Date / Time cefdinir Allergy Vomiting Verified 06/11/23 22:20 morphine Allergy Rash Verified 06/11/23 22:20 peanut Allergy Anaphylaxis Verified 06/11/23 22:20 Social History household members: children Smoking Status: Never smoker History Elective abortions Hx Para 1 Spontaneous abortions Hx # Term Pregnancies Ectopic pregnancies Hx # Pregnancies Multiple births # of living children Physical Exam Const alert and no apparent distress General Appearance: comfortable HEENT normocephalic Resp normal respiratory effort GI soft to palpation and non-distended GI Narrative: +minimal tenderness in epigastric area and RUQ. No rebounding, no guarding, no rigidity Extremity Extremity Narrative: Patellar reflexes 2+ and no clonus, no swelling NST FHR Rate Baby A Baseline: 130 Variability:: Moderate Accelerations:: 15 x 15 Decelerations:: None NST Reactive:: Yes FHR Category:: Category I Uterine Activity:: no contractions Assessment & Plan (1) 36 weeks gestation of : PLAN: Pre e labs normal. BP normal. Suspect migraine headache with nausea. Patient desired IVF bolus and migraine cocktail. Cont to check BP's at home. Discussed pre e signs and symptoms, and reasons to call or come in. She has a visit on Wednesday and an induction scheduled for 37 weeks. (2) Headache in : 07/02/23 1558 <Electronically signed by Sandra Edwards DO> Date _ Sandra Edwards DO Cosigner Signature (if applicable): Date CC: Dr. Sandra Edwards DO; SHAYY Alejandro ~ Signed ADDENDUM by Dr. Sandra Edwards DO on 07/02/23 at 1600 Addendum Has nausea and light sensitivity with headache. 07/02/23 1600 <Electronically signed by Sandra Edwards DO> Date _ Sandra Edwards DO cc: Dr. Sandra Edwards DO; SHAYY Alejandro ~* Signed [facility] Work Phone: Hospital Discharge instructions Additional Instructions 1. You will need to contact the lab for repeat test in 48 hours. Recommend having the test done here since there can be a 15 to 20% variance if done at another lab. 2. Contact Dr. 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 Please return to the emergency department with any concerns or worsening.[facility] Work Phone: Hospital Discharge instructions Additional Instructions NPH 20 units with breakfast. 10 units qhs. QHS snack Date of Discharge: 06/10/23[facility] Work Phone: Hospital Discharge instructions Additional Instructions Keep next follow up appointmentWClerm[facility] Work Phone: Reason for referral (narrative)* Outpatient Procedure (Routine) - Authorized Specialty Diagnoses / Procedures Referred By Contac t Referred To [facility] Diagnoses Body mass index 40.0-44.9, adult (HCC) Procedures ECG COMPLETE ECG ROUTINE ECG W/LEAST 12 LDS W/I&R Cristy Platt, RAYMOND.BLENDER LABORER [address] [place] [address] [facility] [place] [address] [place] [address] Referral ID Status Reason Start Date Expiration Date Visits Requested Visits Authorized [id number] Authorized Auto-Generat ed Referral 05/28/2022 05/28/2023 1 1 [facility] for referral (narrative)* Diagnostic Procedure Only (Routine) - Pending Review Specialty Diagnoses / Procedures Referred By Contac t Referred To Contact XR IMAGING Diagnoses Food intolerance Procedures XR UPPER GI SINGLE CONTRAST RADIOLOGIC EXAM UPR GI TRC SINGLE CONTRAST STUDY Cory Yost MD [address] [id number] Xr Imaging Referral ID Status Reason Start Date Expiration Date Visits Requested Visits Authorized [id number] Pending Review Auto-Generat ed Referral 09/18/2022 10/18/2023 1 1 [facility] for referral (narrative)* Diagnostic Procedure Only (Routine) - Authorized Specialty Diagnoses / Procedures Referred By Contac t Referred To Contact [facility] Diagnoses Breast cyst, left Procedures US BREAST LTD LEFT US BREAST UNI REAL TIME WITH IMAGE LIMITED Kayy Longo APRN.CNP [address] [place] [address] [facility] [address] [place] [address] Referral ID Status Reason Start Date Expiration Date Visits Requested Visits Authorized [id number] Authorized Auto-Generat ed Referral 10/16/2022 11/15/2023 1 1 * Diagnostic Procedure Only (Routine) - Authorized Specialty Diagnoses / Procedures Referred By Contac t Referred To Contact [facility] Diagnoses Pelvic pain in female Procedures PELVIC US WHI US PELVIC NONOBSTETRIC REAL-TIME IMAGE COMPLETE Kayy Longo APRN.CNP [address] [place] [address] [facility] [address] [place] [address] Referral ID Status Reason Start Date Expiration Date Visits Requested Visits Authorized [id number] Authorized Auto-Generat ed Referral 10/16/2022 10/16/2023 1 1 [facility] for referral (narrative)* Diagnostic Procedure Only (Routine) - Authorized Specialty Diagnoses / Procedures Referred By Contac t Referred To Contact US IMAG[facility] Diagnoses Left ovarian cyst Procedures US FEMALE PELVIS TRANSVAG US TRANSVAGINAL Kayy Longo APRN.CNP [address] [place] [address] [place] [address] Referral ID Status Reason Start Date Expiration Date Visits Requested Visits Authorized [id number] Authorized Auto-Generat ed Referral 11/05/2022 12/05/2023 1 1 [facility] for referral (narrative)* Diagnostic Procedure Only (Routine) - Pending Review Specialty Diagnoses / Procedures Referred By Contac t Referred To Contact [facility] Diagnoses , location unknown Procedures US PREG TRANSVAG <14 WEEKS US PREG UTERUS REAL TIME W/IMAGE DCMTN TRANSVAG Angie Mora MD [address] [place] [address] [place] [address] Referral ID Status Reason Start Date Expiration Date Visits Requested Visits Authorized [id number] Pending Review Auto-Generat ed Referral 12/01/2022 12/31/2023 1 1 * Diagnostic Procedure Only (Routine) - Pending Review Specialty Diagnoses / Procedures Referred By Contac t Referred To Contact US IMAGING Diagnoses , location unknown Procedures US PREG TRANSABD <14 WEEKS LTD US UTERUS LIMITED 1/> FETUSES Angie Mora MD [address] [place] [address] [place] [address] Referral ID Status Reason Start Date Expiration Date Visits Requested Visits Authorized [id number] Pending Review Auto-Generat ed Referral 12/01/2022 12/31/2023 1 1 [facility] for referral (narrative)* Diagnostic Procedure Only (Routine) - Closed Specialty Diagnoses / Procedures Referred By Contac t Referred To Contact US IMAGING Diagnoses , location unknown Procedures US PREG TRANSVAG <14 WEEKS US PREG UTERUS REAL TIME W/IMAGE DCMTN TRANSVAG Angie Mora MD [address] [place] [address] [place] [address] Referral ID Status Reason Start Date Expiration Date V isits Requested Visits Authorized [id number] Closed Auto-Generate d Referral 12/01/2022 12/31/2023 1 1 * Diagnostic Procedure Only (Routine) - Closed Specialty Diagnoses / Procedures Referred By Contac t Referred To Contact [facility] IMAG[facility] Diagnoses , location unknown Procedures US PREG TRANSABD <14 WEEKS LTD US UTERUS LIMITED 1/> FETUSES Angie Mora MD [address] [place] [address] [place] [address] Referral ID Status Reason Start Date Expiration Date V isits Requested Visits Authorized [id number] Closed Auto-Generate d Referral 12/01/2022 12/31/2023 1 1 [facility] for referral (narrative)* Diagnostic Procedure Only (Routine) - Closed Specialty Diagnoses / Procedures Referred By Contac t Referred To Contact [facility] Diagnoses Breast cyst, left Procedures US BREAST LTD LEFT US BREAST UNI REAL TIME WITH IMAGE LIMITED Kayy Longo APRN.BLENDER LABORER [address] [place] [address] [facility] [address] [place] [address] Referral ID Status Reason Start Date Expiration Date V isits Requested Visits Authorized [id number] Closed Auto-Generate d Referral 10/16/2022 11/15/2023 1 1 [facility] for referral (narrative)* Diagnostic Procedure Only (Routine) - Authorized Specialty Diagnoses / Procedures Referred By Contac t Referred To Contact [facility] Diagnoses History of gastric bypass 14 weeks gestation of Supervision of high risk in second trimester Procedures OBSTETRIC ULTRASOUND WHI US PREG UTERUS AFTER 1ST TRIMEST GESTATION Angie Mora MD [address] [place] [address] [address] Referral ID Status Reason Start Date Expiration Date Visits Requested Visits Authorized [id number] Authorized Auto-Generat ed Referral 3 01/29/2024 1 1 [facility] for referral (narrative)* Diagnostic Procedure Only (Routine) - Pending Review Specialty Diagnoses / Procedures Referred By Contac t Referred To Contact [facility] Diagnoses Insulin controlled gestational diabetes mellitus (GDM) in third trimester Polyhydramnios in third trimester complication, single or unspecified fetus History of gastric bypass 31 weeks gestation of Procedures BIOPHYSICAL PROFILE US WHI BIOPHYSICAL PROFILE NON-STRESS TESTING Jimmie Jules MD [address] [place] [address] [facility] [address] [place] [address] Referral ID Status Reason Start Date Expiration Date Visits Requested Visits Authorized [id number] Pending Review Auto-Generat ed Referral 05/26/2023 05/25/2024 10 1 * Outpatient Procedure (Routine) - Authorized Specialty Diagnoses / Procedures Referred By Contac t Referred To Contact [facility] Diagnoses 31 weeks gestation of Polyhydramnios in third trimester complication, single or unspecified fetus Insulin controlled gestational diabetes mellitus (GDM) in third trimester Procedures NON-STRESS TEST NON-STRESS TEST Jimmie Jules MD [address] [place] [address] [address] Referral ID Status Reason Start Date Expiration Date Visits Requested Visits Authorized [id number] Authorized Auto-Generat ed Referral 05/26/2023 05/25/2024 10 1 [facility] for referral (narrative)* Diagnostic Procedure Only (Routine) - Pending Review Specialty Diagnoses / Procedures Referred By Contac t Referred To Contact [facility] Diagnoses Insulin controlled gestational diabetes mellitus (GDM) in third trimester Polyhydramnios in third trimester complication, single or unspecified fetus Procedures OBSTETRIC ULTRASOUND WHI US PREG UTERUS AFTER 1ST TRIMEST GESTATION Jimmie Jules MD [address] [place] [address] [address] [place] [address] Referral ID Status Reason Start Date Expiration Date Visits Requested Visits Authorized [id number] Pending Review Auto-Generat ed Referral 05/26/2023 05/25/2024 2 1 [facility] for referral (narrative)* Diagnostic Procedure Only (Routine) - Authorized Specialty Diagnoses / Procedures Referred By Contac t Referred To Contact [facility] Diagnoses Pelvic pain in female Procedures PELVIC US WHI US PELVIC NONOBSTETRIC REAL-TIME IMAGE COMPLETE Kayy Longo APRN.BLENDER LABORER [address] [place] [address] [address] Referral ID Status Reason Start Date Expiration Date Visits Requested Visits Authorized [id number] Authorized Auto-Generat ed Referral 09/13/2023 09/12/2024 1 1 [facility] for referral (narrative)* Diagnostic Procedure Only (Routine) - Authorized Specialty Diagnoses / Procedures Referred By Contac t Referred To Contact [facility] Diagnoses Ovarian cyst, left Procedures PELVIC US I US PELVIC NONOBSTETRIC REAL-TIME IMAGE COMPLETE Kayy Longo APRN.CNP [address] [place] [address] [address] Referral ID Status Reason Start Date Expiration Date Visits Requested Visits Authorized [id number] Authorized Auto-Generat ed Referral 10/04/2023 10/03/2024 1 1 [facility] for referral (narrative)* Diagnostic Procedure Only (Routine) - New Request Specialty Diagnoses / Procedures Referred By Contac t Referred To Contact [facility] Diagnoses Ovarian cyst, left Procedures PELVIC US I US PELVIC NONOBSTETRIC REAL-TIME IMAGE COMPLETE Kayy Longo APRN.CNP [address] [place] [address] [address] Referral ID Status Reason Start Date Expiration Date Visits Requested Visits Authorized [id number] New Request Auto-Generat ed Referral 12/17/2023 12/16/2024 1 1 [facility] for referral (narrative)* Diagnostic Procedure Only (Routine) - Authorized Specialty Diagnoses / Procedures Referred By Contac t Referred To Contact [facility] Diagnoses Encounter for anatomic survey Procedures OBSTETRIC ULTRASOUND WHI US PREG UTERUS AFTER 1ST TRIMEST GESTATION Kayy Longo APRN.BLENDER LABORER [address] [place] [address] [facility] [address] [address] Referral ID Status Reason Start Date Expiration Date Visits Requested Visits Authorized [id number] Authorized Auto-Generat ed Referral 03/31/2024 03/31/2025 1 1 * Diagnostic Procedure Only (Routine) - Authorized Specialty Diagnoses / Procedures Referred By Contac t Referred To Contact [facility] Diagnoses 8 weeks gestation of Procedures OBSTETRIC ULTRASOUND WHI US PREG UTERUS AFTER 1ST TRIMEST GESTATION Kayy Longo APRN.CNP [address] [place] [address] [facility] [place] [address] Referral ID Status Reason Start Date Expiration Date Visits Requested Visits Authorized [id number] Authorized Auto-Generat ed Referral 03/31/2024 03/31/2025 1 1 [facility]No reason for referral information availableWClermont [facility] Work Phone: Reason for visit Narrative* Diagnostic Procedure Only (Routine) - Closed Specialty Diagnoses / Procedures Referred By Contac t Referred To Contact [facility] Diagnoses Pelvic pain in female Procedures PELVIC US WHI US PELVIC NONOBSTETRIC REAL-TIME IMAGE COMPLETE Kayy Longo APRN.BLENDER LABORER [address] [place] [address] [facility] [address] [place] [address] Referral ID Status Reason Start Date Expiration Date V isits Requested Visits Authorized [id number] Closed Auto-Generate d Referral 09/13/2023 09/12/2024 1 1 [facility] Diagnostic Procedure Only (Routine) - Closed Specialty Diagnoses / Procedures Referred By Contac t Referred To Contact [facility] Diagnoses Ovarian cyst, left Procedures PELVIC US WHI US PELVIC NONOBSTETRIC REAL-TIME IMAGE COMPLETE Kayy Longo APRN.[employer] [address] [place] [address] [address] Referral ID Status Reason Start Date Expiration Date V isits Requested Visits Authorized [id number] Closed Auto-Generate d Referral 10/04/2023 10/03/2024 1 1 [facility] for visit Narrative* Diagnostic Procedure Only (Routine) - Closed Specialty Diagnoses / Procedures Referred By Contac t Referred To Contact [facility] Diagnoses Missed menses Procedures OBSTETRIC ULTRASOUND WHI US PREG UTERUS AFTER 1ST TRIMEST GESTATION Inna Garcia MD [address] [place] [address] [facility] [address] [place] [address] Referral ID Status Reason Start Date Expiration Date V isits Requested Visits Authorized [id number] Closed Auto-Generate d Referral 03/06/2024 03/06/2025 [address] 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 Advance Directive(s) 01/21/2021 9:54 AM Advance Directive(s) 12/02/2020 10:24 AM Advance Directive(s) 11/28/2020 10:54 AM Advance Directive(s) 08/30/2018 6:12 AM Advance Directive Response Recorded Date/ Time Living Will No August 27, 2022 11:27pm Power of Refresh Technician No August 27 11:27pm Advance Directive Response Recorded Date/ Time Living Will No Yesenia 5th, 2 023 11:21am Power of Refresh Technician No November 17, 2022 11:21am Advance Directive Response Recorded Date/ Time Living Will No February 18 9:25pm Power of Refresh Technician No February 18, 2023 9:25pm Advance Directive Response Recorded Date/ Time Living Will No April 12 7:37pm Power of Refresh Technician No April 12, 2023 7:37pm Advance Directive Response Recorded Date/ Time Living Will No April 12 8:37pm Power of Refresh Technician No April 12, 2023 8:37pm Advance Directive Response Recorded Date/ Time Living Will No July 04, 2023 8:12am Power of Refresh Technician No July 03 8:12am Date Activated Date Inactivated Comments 06/16/2024 2:44 PM Date Activated Date Inactivated Comments 06/16/2024 2:44 PM 06/17/2024 7:26 PM Question Answer Comments Full Code Order Discussed With: Patient Medications Administered Section Inactive Administered Medications - [...] CC Education - COMMON 01/01/2023 Education - [place] 01/01/2023 Problem Noted Date Diagnosed Date [facility] CC Education - COMMON 01/01/2023 Education - [place] 01/01/2023 Problem Noted Date Diagnosed Date [facility] CC Education - COMMON 01/01/2023 Education - [place] 01/01/2023 Problem Noted Date Diagnosed Date [facility] CC Education - COMMON 01/01/2023 Education - [place] 01/01/2023 Problem Noted Date Diagnosed Date [facility] CC Education - COMMON 01/01/2023 Education - [place] 01/01/2023 Problem Noted Date Diagnosed Date [facility] CC Education - COMMON 01/01/2023 Education - [place] 01/01/2023 Problem Noted Date Diagnosed Date [facility] CC Education - COMMON 01/01/2023 Education - [place] 01/01/2023 Problem Noted Date Diagnosed Date [facility] CC Education - COMMON 01/01/2023 Education - [place] 01/01/2023 Problem Noted Date Diagnosed Date [facility] CC Education - COMMON 01/01/2023 Education - [place] 01/01/2023 Problem Noted Date Diagnosed Date [facility] CC Education - COMMON 01/01/2023 Education - [place] 01/01/2023 Active Problems Noted Date Diagnosed Date [facility] CC Education - COMMON 01/01/2023 Education - [place] 01/01/2023 Active Problems Noted Date Diagnosed Date [facility] CC Education - COMMON 01/01/2023 Education - [place] 01/01/2023 Active Problems Noted Date Diagnosed Date [facility] CC Education - COMMON 01/01/2023 [place] - [place] 01/01/2023 Active Problems Noted Date Diagnosed Date [facility] 01/01/2023 [place] 01/01/2023 Active Problems Noted Date Diagnosed Date [facility] 01/01/2023 [place] 01/01/2023 Active Problems Noted Date Diagnosed Date [facility] 01/01/2023 [facility] [place] 01/01/2023 Active Problems Noted Date Diagnosed Date [facility] 01/01/2023 [facility] [place] 01/01/2023 Active Problems Noted Date Diagnosed Date [facility] 01/01/2023 [facility] [place] 01/01/2023 Active Problems Noted Date Diagnosed Date [facility] 01/01/2023 [facility] [place] 01/01/2023 Active Problems Noted Date Diagnosed Date [facility] - [facility] 01/01/2023 [facility] [place] 01/01/2023 Active Problems Noted Date Diagnosed Date [facility] - [facility] 01/01/2023 [facility] [place] 01/01/2023 Active Problems Noted Date Diagnosed Date [facility] 01/01/2023 [facility] [place] 01/01/2023 Active Problems Noted Date Diagnosed Date [facility] - [facility] 01/01/2023 [place] - [place] 01/01/2023 Chief Complaint and Reason for Visit Chief Complaint N/V Chief Complaint N/V OVARIAN CYST Chief Complaint N/V OVARIAN CYST Chief Complaint OVARIAN CYST LUMP ABD PAIN VAG PREG BLEED Chief Complaint LUMP ABD PAIN VAG PREG BLEED dizziness Chief Complaint VAG PREG BLEED dizziness R/OUT LABOR Chief Complaint VAG PREG BLEED dizziness R/OUT LABOR BLOOD SUGAR Reason for Visit 29 weeks gestation o f History of gastric bypass Uterine cramping 33 weeks gestation of Gestational diabetes requiring insulin Headache in , antepartum Chief Complaint dizziness R/OUT LABOR BLOOD SUGAR RULE OUT PRE-E R/O PRE E Reason for Visit 29 weeks gestation o f History of gastric bypass Uterine cramping 33 weeks gestation of Gestational diabetes requiring insulin Headache in , antepartum 33 weeks gestation of Gestational diabetes requiring insulin History of gastric bypass Nausea and vomiting during Headache in , antepartum 36 weeks gestation of Headache in Chief Complaint dizziness R/OUT LABOR BLOOD SUGAR RULE OUT PRE-E R/O PRE E LABOR AND DELIVERY Reason for Visit 29 weeks gestation o f History of gastric bypass Uterine cramping 33 weeks gestation of Gestational diabetes requiring insulin Headache in , antepartum 33 weeks gestation of Gestational diabetes requiring insulin History of gastric bypass Nausea and vomiting during Headache in , antepartum 36 weeks gestation of Headache in 36 weeks gestation of Gestational diabetes requiring insulin History of gastric bypass History of gestational hypertension Polyhydramnios affecting Rh negative state in antepartum period Vaginal bleeding Vaginal delivery Chief Complaint VAG PREG BLEED dizziness R/OUT LABOR BLOOD SUGAR RULE OUT PRE-E Reason for Visit 29 weeks gestation o f History of gastric bypass Uterine cramping 33 weeks gestation of Gestational diabetes requiring insulin Headache in , antepartum Chief Complaint Admit Date R/O June 23, 2024 9:5 5pm Reason for Referral Specialty Diagnoses / Procedures Referred By Catie perez Referred To Contact Diagnoses Gestational diabetes mellitus, class A1 Procedures CONSULT TO GESTATIONAL/ FUR BUYER OFFICE/OUTPATIENT [facility] 60 MINUTES Jimmie Jules MD [address] [place] [address] Referral ID Status Reason Start Date Expiration Date Visits Requested Visits Authorized [id number] Authorized PCP Requested Referral Auto-Generate d Referral 05/19/2023 05/18/2024 1 1 Additional Source Comments INFORMATION SOURCE (unrecogn ized section and content) DATE CREATED AUTHOR 09/01/2018 [facility] DATE CREATED AUTHOR AUTHOR'S ORGANIZ ATION 05/05/2019 [facility] ([place]) DATE CREATED AUTHOR AUTHOR'S ORGANIZ ATION 12/03/2020 [facility] DATE CREATED AUTHOR AUTHOR'S ORGANIZ ATION 05/30/2021 [facility] [place] DATE CREATED AUTHOR AUTHOR'S ORGANIZ ATION 09/30/2022 [facility] DATE CREATED AUTHOR AUTHOR'S ORGANIZ ATION 06/21/2024 [facility] DATE CREATED AUTHOR AUTHOR'S ORGANIZ ATION 06/30/2024 [facility] DATE CREATED AUTHOR AUTHOR'S ORGANIZ ATION 09/08/2024 [facility] Source Comments (unrecognize d section and content) In the event this informatio n is protected by the Federal Confidentiality of Alcohol and Drug Abuse Patient Records regulations: The Federal rules restrict any use of the information to criminally investigate or prosecute any alcohol or drug abuse patient.[facility]In the event this information is protected by the Federal Confidentiality of Alcohol and Drug Abuse Patient Records regulations: The Federal rules restrict any use of the information to criminally investigate or prosecute any alcohol or drug abuse patient.[facility] HospitalIn the event this information is protected by the Federal Confidentiality of Alcohol and Drug Abuse Patient Records regulations: The Federal rules restrict any use of the information to criminally investigate or prosecute any alcohol or drug abuse patient.[facility] HospitalIn the event this information is protected by the Federal Confidentiality of Alcohol and Drug Abuse Patient Records regulations: The Federal rules restrict any use of the information to criminally investigate or prosecute any alcohol or drug abuse patient.[facility] HospitalIn the event this information is protected by the Federal Confidentiality of Alcohol and Drug Abuse Patient Records regulations: The Federal rules restrict any use of the information to criminally investigate or prosecute any alcohol or drug abuse patient.[facility] HospitalIn the event this information is protected by the Federal Confidentiality of Alcohol and Drug Abuse Patient Records regulations: The Federal rules restrict any use of the information to criminally investigate or prosecute any alcohol or drug abuse patient.[facility] HospitalIn the event this information is protected by the Federal Confidentiality of Alcohol and Drug Abuse Patient Records regulations: The Federal rules restrict any use of the information to criminally investigate or prosecute any alcohol or drug abuse patient.[facility] the event this information is protected by the Federal Confidentiality of Alcohol and Drug Abuse Patient Records regulations: The Federal rules restrict any use of the information to criminally investigate or prosecute any alcohol or drug abuse patient.[facility] HospitalIn the event this information is protected by the Federal Confidentiality of Alcohol and Drug Abuse Patient Records regulations: The Federal rules restrict any use of the information to criminally investigate or prosecute any alcohol or drug abuse patient.[facility] HospitalIn the event this information is protected by the Federal Confidentiality of Alcohol and Drug Abuse Patient Records regulations: The Federal rules restrict any use of the information to criminally investigate or prosecute any alcohol or drug abuse patient.[facility] the event this information is protected by the Federal Confidentiality of Alcohol and Drug Abuse Patient Records regulations: The Federal rules restrict any use of the information to criminally investigate or prosecute any alcohol or drug abuse patient.[facility] HospitalIn the event this information is protected by the Federal Confidentiality of Alcohol and Drug Abuse Patient Records regulations: The Federal rules restrict any use of the information to criminally investigate or prosecute any alcohol or drug abuse patient.[facility] HospitalIn the event this information is protected by the Federal Confidentiality of Alcohol and Drug Abuse Patient Records regulations: The Federal rules restrict any use of the information to criminally investigate or prosecute any alcohol or drug abuse patient.[facility] HospitalIn the event this information is protected by the Federal Confidentiality of Alcohol and Drug Abuse Patient Records regulations: The Federal rules restrict any use of the information to criminally investigate or prosecute any alcohol or drug abuse patient.[facility] HospitalIn the event this information is protected by the Federal Confidentiality of Alcohol and Drug Abuse Patient Records regulations: The Federal rules restrict any use of the information to criminally investigate or prosecute any alcohol or drug abuse patient.[facility] HospitalIn the event this information is protected by the Federal Confidentiality of Alcohol and Drug Abuse Patient Records regulations: The Federal rules restrict any use of the information to criminally investigate or prosecute any alcohol or drug abuse patient.[facility] HospitalIn the event this information is protected by the Federal Confidentiality of Alcohol and Drug Abuse Patient Records regulations: The Federal rules restrict any use of the information to criminally investigate or prosecute any alcohol or drug abuse patient.[facility] HospitalIn the event this information is protected by the Federal Confidentiality of Alcohol and Drug Abuse Patient Records regulations: The Federal rules restrict any use of the information to criminally investigate or prosecute any alcohol or drug abuse patient.[facility] HospitalIn the event this information is protected by the Federal Confidentiality of Alcohol and Drug Abuse Patient Records regulations: The Federal rules restrict any use of the information to criminally investigate or prosecute any alcohol or drug abuse patient.[facility] HospitalIn the event this information is protected by the Federal Confidentiality of Alcohol and Drug Abuse Patient Records regulations: The Federal rules restrict any use of the information to criminally investigate or prosecute any alcohol or drug abuse patient.[facility] HospitalIn the event this information is protected by the Federal Confidentiality of Alcohol and Drug Abuse Patient Records regulations: The Federal rules restrict any use of the information to criminally investigate or prosecute any alcohol or drug abuse patient.[facility] HospitalIn the event this information is protected by the Federal Confidentiality of Alcohol and Drug Abuse Patient Records regulations: The Federal rules restrict any use of the information to criminally investigate or prosecute any alcohol or drug abuse patient.[facility] HospitalIn the event this information is protected by the Federal Confidentiality of Alcohol and Drug Abuse Patient Records regulations: The Federal rules restrict any use of the information to criminally investigate or prosecute any alcohol or drug abuse patient.[facility] HospitalIn the event this information is protected by the Federal Confidentiality of Alcohol and Drug Abuse Patient Records regulations: The Federal rules restrict any use of the information to criminally investigate or prosecute any alcohol or drug abuse patient.[facility] HospitalIn the event this information is protected by the Federal Confidentiality of Alcohol and Drug Abuse Patient Records regulations: The Federal rules restrict any use of the information to criminally investigate or prosecute any alcohol or drug abuse patient.[facility] HospitalIn the event this information is protected by the Federal Confidentiality of Alcohol and Drug Abuse Patient Records regulations: The Federal rules restrict any use of the information to criminally investigate or prosecute any alcohol or drug abuse patient.[facility] HospitalIn the event this information is protected by the Federal Confidentiality of Alcohol and Drug Abuse Patient Records regulations: The Federal rules restrict any use of the information to criminally investigate or prosecute any alcohol or drug abuse patient.[facility] HospitalIn the event this information is protected by the Federal Confidentiality of Alcohol and Drug Abuse Patient Records regulations: The Federal rules restrict any use of the information to criminally investigate or prosecute any alcohol or drug abuse patient.[facility] HospitalIn the event this information is protected by the Federal Confidentiality of Alcohol and Drug Abuse Patient Records regulations: The Federal rules restrict any use of the information to criminally investigate or prosecute any alcohol or drug abuse patient.[facility] HospitalIn the event this information is protected by the Federal Confidentiality of Alcohol and Drug Abuse Patient Records regulations: The Federal rules restrict any use of the information to criminally investigate or prosecute any alcohol or drug abuse patient.[facility] HospitalIn the event this information is protected by the Federal Confidentiality of Alcohol and Drug Abuse Patient Records regulations: The Federal rules restrict any use of the information to criminally investigate or prosecute any alcohol or drug abuse patient.[facility] HospitalIn the event this information is protected by the Federal Confidentiality of Alcohol and Drug Abuse Patient Records regulations: The Federal rules restrict any use of the information to criminally investigate or prosecute any alcohol or drug abuse patient.[facility] HospitalIn the event this information is protected by the Federal Confidentiality of Alcohol and Drug Abuse Patient Records regulations: The Federal rules restrict any use of the information to criminally investigate or prosecute any alcohol or drug abuse patient.[facility] HospitalIn the event this information is protected by the Federal Confidentiality of Alcohol and Drug Abuse Patient Records regulations: The Federal rules restrict any use of the information to criminally investigate or prosecute any alcohol or drug abuse patient.[facility] HospitalIn the event this information is protected by the Federal Confidentiality of Alcohol and Drug Abuse Patient Records regulations: The Federal rules restrict any use of the information to criminally investigate or prosecute any alcohol or drug abuse patient.[facility] HospitalIn the event this information is protected by the Federal Confidentiality of Alcohol and Drug Abuse Patient Records regulations: The Federal rules restrict any use of the information to criminally investigate or prosecute any alcohol or drug abuse patient.[facility] HospitalIn the event this information is protected by the Federal Confidentiality of Alcohol and Drug Abuse Patient Records regulations: The Federal rules restrict any use of the information to criminally investigate or prosecute any alcohol or drug abuse patient.[facility] HospitalIn the event this information is protected by the Federal Confidentiality of Alcohol and Drug Abuse Patient Records regulations: The Federal rules restrict any use of the information to criminally investigate or prosecute any alcohol or drug abuse patient.[facility] HospitalIn the event this information is protected by the Federal Confidentiality of Alcohol and Drug Abuse Patient Records regulations: The Federal rules restrict any use of the information to criminally investigate or prosecute any alcohol or drug abuse patient.[facility] HospitalIn the event this information is protected by the Federal Confidentiality of Alcohol and Drug Abuse Patient Records regulations: The Federal rules restrict any use of the information to criminally investigate or prosecute any alcohol or drug abuse patient.[facility] HospitalIn the event this information is protected by the Federal Confidentiality of Alcohol and Drug Abuse Patient Records regulations: The Federal rules restrict any use of the information to criminally investigate or prosecute any alcohol or drug abuse patient.[facility] HospitalIn the event this information is protected by the Federal Confidentiality of Alcohol and Drug Abuse Patient Records regulations: The Federal rules restrict any use of the information to criminally investigate or prosecute any alcohol or drug abuse patient.[facility] HospitalIn the event this information is protected by the Federal Confidentiality of Alcohol and Drug Abuse Patient Records regulations: The Federal rules restrict any use of the information to criminally investigate or prosecute any alcohol or drug abuse patient.[facility] HospitalIn the event this information is protected by the Federal Confidentiality of Alcohol and Drug Abuse Patient Records regulations: The Federal rules restrict any use of the information to criminally investigate or prosecute any alcohol or drug abuse patient.[facility] HospitalIn the event this information is protected by the Federal Confidentiality of Alcohol and Drug Abuse Patient Records regulations: The Federal rules restrict any use of the information to criminally investigate or prosecute any alcohol or drug abuse patient.[facility] HospitalIn the event this information is protected by the Federal Confidentiality of Alcohol and Drug Abuse Patient Records regulations: The Federal rules restrict any use of the information to criminally investigate or prosecute any alcohol or drug abuse patient.[facility] HospitalIn the event this information is protected by the Federal Confidentiality of Alcohol and Drug Abuse Patient Records regulations: The Federal rules restrict any use of the information to criminally investigate or prosecute any alcohol or drug abuse patient.[facility] HospitalIn the event this information is protected by the Federal Confidentiality of Alcohol and Drug Abuse Patient Records regulations: The Federal rules restrict any use of the information to criminally investigate or prosecute any alcohol or drug abuse patient.[facility] HospitalIn the event this information is protected by the Federal Confidentiality of Alcohol and Drug Abuse Patient Records regulations: The Federal rules restrict any use of the information to criminally investigate or prosecute any alcohol or drug abuse patient.[facility] HospitalIn the event this information is protected by the Federal Confidentiality of Alcohol and Drug Abuse Patient Records regulations: The Federal rules restrict any use of the information to criminally investigate or prosecute any alcohol or drug abuse patient.[facility] HospitalIn the event this information is protected by the Federal Confidentiality of Alcohol and Drug Abuse Patient Records regulations: The Federal rules restrict any use of the information to criminally investigate or prosecute any alcohol or drug abuse patient.[facility] HospitalIn the event this information is protected by the Federal Confidentiality of Alcohol and Drug Abuse Patient Records regulations: The Federal rules restrict any use of the information to criminally investigate or prosecute any alcohol or drug abuse patient.[facility] HospitalIn the event this information is protected by the Federal Confidentiality of Alcohol and Drug Abuse Patient Records regulations: The Federal rules restrict any use of the information to criminally investigate or prosecute any alcohol or drug abuse patient.[facility] HospitalIn the event this information is protected by the Federal Confidentiality of Alcohol and Drug Abuse Patient Records regulations: The Federal rules restrict any use of the information to criminally investigate or prosecute any alcohol or drug abuse patient.[facility] HospitalIn the event this information is protected by the Federal Confidentiality of Alcohol and Drug Abuse Patient Records regulations: The Federal rules restrict any use of the information to criminally investigate or prosecute any alcohol or drug abuse patient.[facility] HospitalIn the event this information is protected by the Federal Confidentiality of Alcohol and Drug Abuse Patient Records regulations: The Federal rules restrict any use of the information to criminally investigate or prosecute any alcohol or drug abuse patient.[facility] HospitalIn the event this information is protected by the Federal Confidentiality of Alcohol and Drug Abuse Patient Records regulations: The Federal rules restrict any use of the information to criminally investigate or prosecute any alcohol or drug abuse patient.[facility] the event this information is protected by the Federal Confidentiality of Alcohol and Drug Abuse Patient Records regulations: The Federal rules restrict any use of the information to criminally investigate or prosecute any alcohol or drug abuse patient.[facility] HospitalIn the event this information is protected by the Federal Confidentiality of Alcohol and Drug Abuse Patient Records regulations: The Federal rules restrict any use of the information to criminally investigate or prosecute any alcohol or drug abuse patient.[facility] HospitalIn the event this information is protected by the Federal Confidentiality of Alcohol and Drug Abuse Patient Records regulations: The Federal rules restrict any use of the information to criminally investigate or prosecute any alcohol or drug abuse patient.[facility]In the event this information is protected by the Federal Confidentiality of Alcohol and Drug Abuse Patient Records regulations: The Federal rules restrict any use of the information to criminally investigate or prosecute any alcohol or drug abuse patient.[facility] HospitalIn the event this information is protected by the Federal Confidentiality of Alcohol and Drug Abuse Patient Records regulations: The Federal rules restrict any use of the information to criminally investigate or prosecute any alcohol or drug abuse patient.[facility] HospitalIn the event this information is protected by the Federal Confidentiality of Alcohol and Drug Abuse Patient Records regulations: The Federal rules restrict any use of the information to criminally investigate or prosecute any alcohol or drug abuse patient.[facility] HospitalIn the event this information is protected by the Federal Confidentiality of Alcohol and Drug Abuse Patient Records regulations: The Federal rules restrict any use of the information to criminally investigate or prosecute any alcohol or drug abuse patient.[facility] HospitalIn the event this information is protected by the Federal Confidentiality of Alcohol and Drug Abuse Patient Records regulations: The Federal rules restrict any use of the information to criminally investigate or prosecute any alcohol or drug abuse patient.[facility] HospitalIn the event this information is protected by the Federal Confidentiality of Alcohol and Drug Abuse Patient Records regulations: The Federal rules restrict any use of the information to criminally investigate or prosecute any alcohol or drug abuse patient.[facility] HospitalIn the event this information is protected by the Federal Confidentiality of Alcohol and Drug Abuse Patient Records regulations: The Federal rules restrict any use of the information to criminally investigate or prosecute any alcohol or drug abuse patient.[facility] HospitalIn the event this information is protected by the Federal Confidentiality of Alcohol and Drug Abuse Patient Records regulations: The Federal rules restrict any use of the information to criminally investigate or prosecute any alcohol or drug abuse patient.[facility] HospitalIn the event this information is protected by the Federal Confidentiality of Alcohol and Drug Abuse Patient Records regulations: The Federal rules restrict any use of the information to criminally investigate or prosecute any alcohol or drug abuse patient.[facility] HospitalIn the event this information is protected by the Federal Confidentiality of Alcohol and Drug Abuse Patient Records regulations: The Federal rules restrict any use of the information to criminally investigate or prosecute any alcohol or drug abuse patient.[facility] HospitalIn the event this information is protected by the Federal Confidentiality of Alcohol and Drug Abuse Patient Records regulations: The Federal rules restrict any use of the information to criminally investigate or prosecute any alcohol or drug abuse patient.[facility] HospitalIn the event this information is protected by the Federal Confidentiality of Alcohol and Drug Abuse Patient Records regulations: The Federal rules restrict any use of the information to criminally investigate or prosecute any alcohol or drug abuse patient.[facility] HospitalIn the event this information is protected by the Federal Confidentiality of Alcohol and Drug Abuse Patient Records regulations: The Federal rules restrict any use of the information to criminally investigate or prosecute any alcohol or drug abuse patient.[facility] HospitalIn the event this information is protected by the Federal Confidentiality of Alcohol and Drug Abuse Patient Records regulations: The Federal rules restrict any use of the information to criminally investigate or prosecute any alcohol or drug abuse patient.[facility] HospitalIn the event this information is protected by the Federal Confidentiality of Alcohol and Drug Abuse Patient Records regulations: The Federal rules restrict any use of the information to criminally investigate or prosecute any alcohol or drug abuse patient.[facility] HospitalIn the event this information is protected by the Federal Confidentiality of Alcohol and Drug Abuse Patient Records regulations: The Federal rules restrict any use of the information to criminally investigate or prosecute any alcohol or drug abuse patient.[facility] HospitalIn the event this information is protected by the Federal Confidentiality of Alcohol and Drug Abuse Patient Records regulations: The Federal rules restrict any use of the information to criminally investigate or prosecute any alcohol or drug abuse patient.[facility] HospitalIn the event this information is protected by the Federal Confidentiality of Alcohol and Drug Abuse Patient Records regulations: The Federal rules restrict any use of the information to criminally investigate or prosecute any alcohol or drug abuse patient.[facility] HospitalIn the event this information is protected by the Federal Confidentiality of Alcohol and Drug Abuse Patient Records regulations: The Federal rules restrict any use of the information to criminally investigate or prosecute any alcohol or drug abuse patient.[facility] HospitalIn the event this information is protected by the Federal Confidentiality of Alcohol and Drug Abuse Patient Records regulations: The Federal rules restrict any use of the information to criminally investigate or prosecute any alcohol or drug abuse patient.[facility] HospitalIn the event this information is protected by the Federal Confidentiality of Alcohol and Drug Abuse Patient Records regulations: The Federal rules restrict any use of the information to criminally investigate or prosecute any alcohol or drug abuse patient.[facility] HospitalIn the event this information is protected by the Federal Confidentiality of Alcohol and Drug Abuse Patient Records regulations: The Federal rules restrict any use of the information to criminally investigate or prosecute any alcohol or drug abuse patient.[facility] HospitalIn the event this information is protected by the Federal Confidentiality of Alcohol and Drug Abuse Patient Records regulations: The Federal rules restrict any use of the information to criminally investigate or prosecute any alcohol or drug abuse patient.[facility] HospitalIn the event this information is protected by the Federal Confidentiality of Alcohol and Drug Abuse Patient Records regulations: The Federal rules restrict any use of the information to criminally investigate or prosecute any alcohol or drug abuse patient.[facility] HospitalIn the event this information is protected by the Federal Confidentiality of Alcohol and Drug Abuse Patient Records regulations: The Federal rules restrict any use of the information to criminally investigate or prosecute any alcohol or drug abuse patient.[facility] HospitalIn the event this information is protected by the Federal Confidentiality of Alcohol and Drug Abuse Patient Records regulations: The Federal rules restrict any use of the information to criminally investigate or prosecute any alcohol or drug abuse patient.[facility] HospitalIn the event this information is protected by the Federal Confidentiality of Alcohol and Drug Abuse Patient Records regulations: The Federal rules restrict any use of the information to criminally investigate or prosecute any alcohol or drug abuse patient.[facility] HospitalIn the event this information is protected by the Federal Confidentiality of Alcohol and Drug Abuse Patient Records regulations: The Federal rules restrict any use of the information to criminally investigate or prosecute any alcohol or drug abuse patient.[facility] HospitalIn the event this information is protected by the Federal Confidentiality of Alcohol and Drug Abuse Patient Records regulations: The Federal rules restrict any use of the information to criminally investigate or prosecute any alcohol or drug abuse patient.[facility] HospitalIn the event this information is protected by the Federal Confidentiality of Alcohol and Drug Abuse Patient Records regulations: The Federal rules restrict any use of the information to criminally investigate or prosecute any alcohol or drug abuse patient.[facility] HospitalIn the event this information is protected by the Federal Confidentiality of Alcohol and Drug Abuse Patient Records regulations: The Federal rules restrict any use of the information to criminally investigate or prosecute any alcohol or drug abuse patient.[facility] HospitalIn the event this information is protected by the Federal Confidentiality of Alcohol and Drug Abuse Patient Records regulations: The Federal rules restrict any use of the information to criminally investigate or prosecute any alcohol or drug abuse patient.[facility] HospitalIn the event this information is protected by the Federal Confidentiality of Alcohol and Drug Abuse Patient Records regulations: The Federal rules restrict any use of the information to criminally investigate or prosecute any alcohol or drug abuse patient.[facility] HospitalIn the event this information is protected by the Federal Confidentiality of Alcohol and Drug Abuse Patient Records regulations: The Federal rules restrict any use of the information to criminally investigate or prosecute any alcohol or drug abuse patient.[facility] HospitalIn the event this information is protected by the Federal Confidentiality of Alcohol and Drug Abuse Patient Records regulations: The Federal rules restrict any use of the information to criminally investigate or prosecute any alcohol or drug abuse patient.[facility] HospitalIn the event this information is protected by the Federal Confidentiality of Alcohol and Drug Abuse Patient Records regulations: The Federal rules restrict any use of the information to criminally investigate or prosecute any alcohol or drug abuse patient.[facility] HospitalIn the event this information is protected by the Federal Confidentiality of Alcohol and Drug Abuse Patient Records regulations: The Federal rules restrict any use of the information to criminally investigate or prosecute any alcohol or drug abuse patient.[facility] HospitalIn the event this information is protected by the Federal Confidentiality of Alcohol and Drug Abuse Patient Records regulations: The Federal rules restrict any use of the information to criminally investigate or prosecute any alcohol or drug abuse patient.[facility] HospitalIn the event this information is protected by the Federal Confidentiality of Alcohol and Drug Abuse Patient Records regulations: The Federal rules restrict any use of the information to criminally investigate or prosecute any alcohol or drug abuse patient.[facility] HospitalIn the event this information is protected by the Federal Confidentiality of Alcohol and Drug Abuse Patient Records regulations: The Federal rules restrict any use of the information to criminally investigate or prosecute any alcohol or drug abuse patient.[facility] HospitalIn the event this information is protected by the Federal Confidentiality of Alcohol and Drug Abuse Patient Records regulations: The Federal rules restrict any use of the information to criminally investigate or prosecute any alcohol or drug abuse patient.[facility] HospitalIn the event this information is protected by the Federal Confidentiality of Alcohol and Drug Abuse Patient Records regulations: The Federal rules restrict any use of the information to criminally investigate or prosecute any alcohol or drug abuse patient.[facility] HospitalIn the event this information is protected by the Federal Confidentiality of Alcohol and Drug Abuse Patient Records regulations: The Federal rules restrict any use of the information to criminally investigate or prosecute any alcohol or drug abuse patient.[facility] HospitalIn the event this information is protected by the Federal Confidentiality of Alcohol and Drug Abuse Patient Records regulations: The Federal rules restrict any use of the information to criminally investigate or prosecute any alcohol or drug abuse patient.[facility] HospitalIn the event this information is protected by the Federal Confidentiality of Alcohol and Drug Abuse Patient Records regulations: The Federal rules restrict any use of the information to criminally investigate or prosecute any alcohol or drug abuse patient.[facility] HospitalIn the event this information is protected by the Federal Confidentiality of Alcohol and Drug Abuse Patient Records regulations: The Federal rules restrict any use of the information to criminally investigate or prosecute any alcohol or drug abuse patient.[facility] HospitalIn the event this information is protected by the Federal Confidentiality of Alcohol and Drug Abuse Patient Records regulations: The Federal rules restrict any use of the information to criminally investigate or prosecute any alcohol or drug abuse patient.[facility] the event this information is protected by the Federal Confidentiality of Alcohol and Drug Abuse Patient Records regulations: The Federal rules restrict any use of the information to criminally investigate or prosecute any alcohol or drug abuse patient.[facility] HospitalIn the event this information is protected by the Federal Confidentiality of Alcohol and Drug Abuse Patient Records regulations: The Federal rules restrict any use of the information to criminally investigate or prosecute any alcohol or drug abuse patient.[facility] HospitalIn the event this information is protected by the Federal Confidentiality of Alcohol and Drug Abuse Patient Records regulations: The Federal rules restrict any use of the information to criminally investigate or prosecute any alcohol or drug abuse patient.[facility]In the event this information is protected by the Federal Confidentiality of Alcohol and Drug Abuse Patient Records regulations: The Federal rules restrict any use of the information to criminally investigate or prosecute any alcohol or drug abuse patient.[facility] HospitalIn the event this information is protected by the Federal Confidentiality of Alcohol and Drug Abuse Patient Records regulations: The Federal rules restrict any use of the information to criminally investigate or prosecute any alcohol or drug abuse patient.[facility] HospitalIn the event this information is protected by the Federal Confidentiality of Alcohol and Drug Abuse Patient Records regulations: The Federal rules restrict any use of the information to criminally investigate or prosecute any alcohol or drug abuse patient.[facility] HospitalIn the event this information is protected by the Federal Confidentiality of Alcohol and Drug Abuse Patient Records regulations: The Federal rules restrict any use of the information to criminally investigate or prosecute any alcohol or drug abuse patient.[facility] HospitalIn the event this information is protected by the Federal Confidentiality of Alcohol and Drug Abuse Patient Records regulations: The Federal rules restrict any use of the information to criminally investigate or prosecute any alcohol or drug abuse patient.[facility] HospitalIn the event this information is protected by the Federal Confidentiality of Alcohol and Drug Abuse Patient Records regulations: The Federal rules restrict any use of the information to criminally investigate or prosecute any alcohol or drug abuse patient.[facility] HospitalIn the event this information is protected by the Federal Confidentiality of Alcohol and Drug Abuse Patient Records regulations: The Federal rules restrict any use of the information to criminally investigate or prosecute any alcohol or drug abuse patient.[facility] Reason for Visit (unrecogniz ed section and content) Reason Comments Nausea & Vomiting diarrhea, bodyaches, chills and fever, dizziness x 5 days Reason Comments Orders Medication/labs Reason Comments Refill Request Reason Comments Obesity New Patient Reason Comments Obesity Weight Loss Surgery Reason Comments EKG Specialty Diagnoses / Procedures Referred By Contac t Referred To [facility] Diagnoses Body mass index 40.0-44.9, adult (HCC) Procedures ECG COMPLETE ECG ROUTINE ECG W/LEAST 12 LDS W/I&R Cristy Platt, [employer] PLANT OPERATOR.[employer]ENDER [employer]ORER [address] [place] [address] [facility] [place] [address] [place] [address] Referral ID Status Reason Start Date Expiration Date V isits Requested Visits Authorized [id number] Closed Auto-Generate d Referral 05/28/2022 05/28/2023 1 [...] US Specialty Diagnoses / Procedures Referred By Contac t Referred To Contact [facility] Diagnoses , location unknown Procedures US PREG TRANSABD <14 WEEKS LTD US UTERUS LIMITED FETUSES Angie Mora MD [address] [place] [id number] [place] [address] Referral ID Status Reason Start Date Expiration Date V isits Requested Visits Authorized [id number] Closed Auto-Generate d Referral 12/01/2022 12/31/2023 1 1 Reason Comments Radiology US Specialty Diagnoses / Procedures Referred By Contac t Referred To Contact [facility] Diagnoses Breast cyst, left Procedures US BREAST LTD LEFT US BREAST UNI REAL TIME WITH IMAGE LIMITED Kayy Longo, RAYMOND.BLENDER LABORER [address] [place] [address] [facility] [address] [place] [address] Referral ID Status Reason Start Date Expiration Date V isits Requested Visits Authorized [id number] Closed Auto-Generate d Referral 10/16/2022 11/15/2023 1 1 Reason Onset Date Comments Care 01/29/2023 Reason Comments Vomiting Reason Onset Date Comments Care 04/28/2023 Reason Comments Results Reason Comments Blood Management Reason Comments Breast Pump Reason Onset Date Comments Care 05/19/2023 Reason Comments PRAF Reason Comments Non-Chemotherapy Treatment Specialty Diagnoses / Procedures Referred By Contac t Referred To Contact Diagnoses Maternal iron deficiency anemia complicating , third trimester Impaired intestinal absorption Procedures IRON SUCROSE INJECTION PER 1 MG Jimmie Jules MD [address] [place] [address] [facility] [address] [place] [address] Referral ID Status Reason Start Date Expiration Date V isits Requested Visits Authorized [id number] Authorized 05/04/2023 10/31/2023 5 5 Reason Comments Assessment Patient Education Specialty Diagnoses / Procedures Referred By Contac t Referred To Contact Diagnoses Gestational diabetes mellitus, class A1 Procedures CONSULT TO GESTATIONAL/ FUR BUYER OFFICE/OUTPATIENT [facility] 60 MINUTES Jimmie Jules MD [address] [place] [address] Referral ID Status Reason Start Date Expiration Date V isits Requested Visits Authorized [id number] Closed PCP Requested Referral Auto-Generated Referral 05/19/2023 05/18/2024 1 1 Reason Comments US Specialty Diagnoses / Procedures Referred By Contac t Referred To Contact [facility] Diagnoses Supervision of high risk in second trimester History of gastric bypass Procedures OBSTETRIC ULTRASOUND WHI US PREG UTERUS AFTER 1ST TRIMEST GESTATION Jimmie Jules MD [address] [place] [address] [facility] [address] [place] [address] Referral ID Status Reason Start Date Expiration Date V isits Requested Visits Authorized [id number] Closed Auto-Generate d Referral 03/31/2023 03/30/2024 4 1 Reason Onset Date Comments Care 05/26/2023 Reason Comments Insurance Authorization Reason Comments Insulin Douglas Reason Onset Date Comments Care 06/01/2023 Reason Comments Appointment Specialty Diagnoses / Procedures Referred By Contac t Referred To Contact [facility] Diagnoses Insulin controlled gestational diabetes mellitus (GDM) in third trimester Polyhydramnios in third trimester complication, single or unspecified fetus Procedures OBSTETRIC ULTRASOUND WHI US PREG UTERUS AFTER 1ST TRIMEST GESTATION Jimmie Jules MD [address] [place] [address] [facility] [address] [place] [address] Referral ID Status Reason Start Date Expiration Date V isits Requested Visits Authorized [id number] Closed Auto-Generate d Referral 05/26/2023 05/25/2024 2 1 Reason Onset Date Comments Care 06/07/2023 Reason Onset Date Comments Care 06/14/2023 Specialty Diagnoses / Procedures Referred By Contac t Referred To Contact [facility] Diagnoses Insulin controlled gestational diabetes mellitus (GDM) in third trimester Polyhydramnios in third trimester complication, single or unspecified fetus History of gastric bypass 31 weeks gestation of Procedures BIOPHYSICAL PROFILE US WHI BIOPHYSICAL PROFILE NON-STRESS TESTING Jimmie Jules MD [address] [place] [address] [facility] [address] [place] [address] Referral ID Status Reason Start Date Expiration Date V isits Requested Visits Authorized [id number] Closed Auto-Generate d Referral 05/26/2023 05/25/2024 10 1 Reason Onset Date Comments Care 06/21/2023 Reason Onset Date Comments Care 06/25/2023 Reason Onset Date Comments Care 06/28/2023 Reason Comments OB DIEGO, vision changes, RUQ pain Reason Comments Ob Delivery Note Reason Comments Early Reason Comments blood sugars Reason Comments problem visit Left sided pain and cramping Specialty Diagnoses / Procedures Referred By Contac t Referred To Contact Radiology / [facility] WS Diagnoses ML Procedures XR CHEST Cristy Platt, [employer]ANT OPERATOR.BLENDER LABORER [address] [place] [address] [facility] [address] [place] [address] Referral ID Status Reason Start Date Expiration Date Visits Re quested Visits Authorized [id number] Closed 06/02/2022 03/14/2023 1 1 Reason Comments Radiology XR Reason Comments Missed Menses Reason Comments Follow Up Reason Comments Medication Question Reason Comments test Reason Comments Initial OB Visit Reason Comments Spin Instructor - Other PRAF Reason Comments Orders Reason Onset Date Comments Care 04/26/2024 Specialty Diagnoses / Procedures Referred By [place] t Referred To Contact [facility] Diagnoses 8 weeks gestation of Procedures OBSTETRIC ULTRASOUND WHI US PREG UTERUS AFTER 1ST TRIMEST GESTATION Kayy Longo, [employer] POWER PLANT OPERATOR.BLENDER LABORER [address] [place] [address] Phone: tel: fax: [facility] [address] [place] [address] Referral ID Status Reason Start Date Expiration Date V isits Requested Visits Authorized [id number] Closed Auto-Generate d Referral 03/31/2024 03/31/2025 1 1 Reason Onset Date Comments Care 05/31/2024 Specialty Diagnoses / Procedures [facility] To Contact Diagnoses Maternal iron deficiency anemia complicating , second trimester (HCC) Impaired intestinal absorption (HCC) History of gastric bypass Procedures IRON SUCROSE INJECTION PER 1 MG Angie Mora MD [address] [place] [address] Phone: tel: fax: Angie Mora MD [address] [place] [address] Phone: tel: fax: Referral ID Status Reason Start Date Expiration Date V isits Requested Visits Authorized [id number] Authorized 06/06/2024 12/03/2024 99 99 Reason Onset Date Comments Care 06/23/2024 Specialty Diagnoses / Procedures Referred By Contac t Referred To Contact [facility] Diagnoses Encounter for anatomic survey ([facility]) Procedures OBSTETRIC ULTRASOUND WHI US PREG UTERUS AFTER 1ST TRIMEST GESTATION [place]Kayy APRN.FLORECITA [address] [place] [address] Phone: tel: fax: [facility] [address] [place] [address] Referral ID Status Reason Start Date Expiration Date V isits Requested Visits Authorized [id number] Closed Auto-Generate d Referral 03/31/2024 03/31/2025 1 1 Reason Comments Spin Instructor - Other Prior Auth for HumuLin N kwik Pen 100u/ML Reason Comments Insurance Authorization (HUMULIN N NPH I NSULIN KWIKPEN) 100 unit/mL - Insurance Approval Reason Comments Gestational Diabetes Specialty Diagnoses / Procedures Referred By Contac t Referred To Contact Endocrinology / ENDOCRINOLOGY Diagnoses Insulin controlled gestational diabetes mellitus (GDM) in second trimester ([facility]) 20 weeks gestation of ([facility]) Procedures CONSULT TO ENDOCRINOLOGY OFFICE/OUTPATIENT [facility] 60 MINUTES Inna Garcia MD [address] [place] [address] Phone: tel: fax: Eddi Sneed MD [address] [place] [address] Phone: tel: fax: Referral ID Status Reason Start Date Expiration Date V isits Requested Visits Authorized [id number] Closed PCP Requested Referral 06/21/2024 03/14/2025 1 1 Reason Onset Date Comments Care 07/24/2024 Reason Onset Date Comments Care 08/14/2024 Specialty Diagnoses / Procedures Referred By Contac t Referred To Contact [facility] Diagnoses Insulin controlled gestational diabetes mellitus (GDM) in second trimester (HCC) 25 weeks gestation of ([facility]) Supervision of high risk in second trimester ([facility]) Procedures OBSTETRIC ULTRASOUND WHI US PREG UTERUS AFTER 1ST TRIMEST GESTATION NeJimmie Vargas MD [address] [place] [address] Phone: tel: fax: [facility] [address] [place] [address] Referral ID Status Reason Start Date Expiration Date V isits Requested Visits Authorized [id number] Closed Auto-Generate d Referral 07/24/2024 07/24/2025 8 1 Reason Onset Date Comments Care 08/29/2024 Reason Onset Date Comments Care 09/07/2024 Reason Onset Date Comments Care 09/21/2024 Care Teams (unrecognized sec tion and content) Associate Director Career Services Relationship Specialty Start Date End Date Shakeel Villasenor MD [address] [place] [address] PCP - General Family Practice 03/20/21 Associate Director Career Services Relationship Specialty Start Date End Date Shakeel Villasenor MD [address] [place] [address] PCP - General Family Practice 03/20/21 Associate Director Career Services Relationship Specialty Start Date End Date Shakeel Villasenor MD [address] [place] [address] PCP - General Family Practice 03/20/21 Associate Director Career Services Relationship Specialty Start Date End Date Shakeel Villasenor MD [address] [place] [address] PCP - General Family Practice 03/20/21 Associate Director Career Services Relationship Specialty Start Date End Date Shakeel Villasenor MD [address] [place] [address] PCP - General Family Practice 03/20/21 Associate Director Career Services Relationship Specialty Start Date End Date Shakeel Villasenor MD [address] [place] [address] PCP - General Family Medicine 03/20/21 Associate Director Career Services Relationship Specialty Start Date End Date Shakeel Villasenor MD [address] [place] [address] PCP - General Family Medicine 03/20/21 Associate Director Career Services Relationship Specialty Start Date End Date Shakeel Villasenor MD [address] [place] [address] PCP - General Family Medicine 03/20/21 Associate Director Career Services Relationship Specialty Start Date End Date Shakeel Villasenor MD [address] [place] [address] PCP - General Family Medicine 03/20/21 Associate Director Career Services Relationship Specialty Start Date End Date Shakeel Villasenor MD [address] [place] [address] PCP - General Family Medicine 03/20/21 Associate Director Career Services Relationship Specialty Start Date End Date Shakeel Villasenor MD [address] [place] [address] PCP - General Family Medicine 03/20/21 Team Status: Active Member Role Status Dates No Primary Care Physician Family Provider Active No Primary Care Physician Primary Care Provider Active Team Status: Inactive Member Role Status Dates No Primary Care Physician Primary Care Provider Active Dr. Davion Calvo , DO Emergency Provider Active Associate Director Career Services Relationship Specialty Start Date End Date Shakeel Villasenor MD [address] [place] [address] PCP - General Family Medicine 03/20/21 Associate Director Career Services Relationship Specialty Start Date End Date Shakeel Villasenor MD [address] [place] [address] PCP - General Family Medicine 03/20/21 Associate Director Career Services Relationship Specialty Start Date End Date Shakeel Villasenor MD [address] [place] [address] PCP - General Family Medicine 03/20/21 Associate Director Career Services Relationship Specialty Start Date End Date Shakeel Villasenor MD [address] [place] [address] PCP - General Family Medicine 03/20/21 Associate Director Career Services Relationship Specialty Start Date End Date Shakeel Villasenor MD [address] [place] [address] PCP - General Family Medicine 03/20/21 Associate Director Career Services Relationship Specialty Start Date End Date Shakeel Villasenor MD [address] [place] [address] PCP - General Family Medicine 03/20/21 Team Status: Inactive Member Role Status Dates No Primary Care Physician Primary Care Provider Active Dr. Davion Calvo DO Attending Provider, Emergency Provider Active Team Status: Inactive Member Role Status Dates No Primary Care Physician Primary Care Provider Active Dr. Ru Oden MD Emergency Provider Active Associate Director Career Services Relationship Specialty Start Date End Date Shakeel Villasenor MD [address] [place] [address] PCP - General Family Medicine 03/20/21 Team Status: Inactive Member Role Status Dates No Primary Care Physician Primary Care Provider Active Dr. Ru dOen MD Attending Provider, Referring Provi franklin Active Team Status: Inactive Member Role Status Dates No Primary Care Physician Primary Care Provider Active Dr. Ru Oden MD Attending Provider, Emergency Provi franklin Active Associate Director Career Services Relationship Specialty Start Date End Date Shakeel Villasenor MD [address] [place] [address] PCP - General Family Medicine 03/20/21 Associate Director Career Services Relationship Specialty Start Date End Date Shakeel Villasenor MD [address] [place] [address] PCP - General Family Medicine 03/20/21 Associate Director Career Services Relationship Specialty Start Date End Date Shakeel Villasenor MD [address] [place] [address] PCP - General Family Medicine 03/20/21 Associate Director Career Services Relationship Specialty Start Date End Date Shakeel Villasenor MD [address] [place] [address] PCP - General Family Medicine 03/20/21 Associate Director Career Services Relationship Specialty Start Date End Date Shakeel Villasenor MD [address] [place], [place] [address] PCP - General Family Medicine 03/20/21 Associate Director Career Services Relationship Specialty Start Date End Date Shakeel Villasenor MD [address] [place], [place] [address] PCP - General Family Medicine 03/20/21 Team Status: Active Member Role Status Dates No Primary Care Physician Family Provider Active SHAYY Silverio Primary Care Provider Active Team Status: Inactive Member Role Status Dates SHAYY Silverio Primary Care Provider Active Dr. Ru Oden MD Emergency Provider Active Team Status: Inactive Member Role Status Dates No Primary Care Physician Primary Care Provider Active Dr. Rito Bloom DO Attending Provider, Emergency P rovider Active Team Status: Inactive Member Role Status Dates Dr. Rito Bloom DO Attending Provider, Emergency P rovider Active SHAYY Silverio Primary Care Provider Active Team Status: Inactive Member Role Status Dates SHAYY Silverio Primary Care Provider Active Dr. Ru Oden MD Attending Provider, Emergency Provi franklin Active Team Status: Inactive Member Role Status Dates SHAYY Silverio Primary Care Provider Active Dr. Jeff Thakur DO Emergency Provider Active Associate Director Career Services Relationship Specialty Start Date End Date Shakeel Villasenor MD [address] [place], [place] [address] PCP - General Family Medicine 03/20/21 Associate Director Career Services Relationship Specialty Start Date End Date Shakeel Villasenor MD [address] [place] [address] PCP - General Family Medicine 03/20/21 Associate Director Career Services Relationship Specialty Start Date End Date Shakeel Villasenor MD [address] [place] [address] PCP - General Family Medicine 03/20/21 Associate Director Career Services Relationship Specialty Start Date End Date Shakeel Villasenor MD [address] [place] [address] PCP - General Family Medicine 03/20/21 Associate Director Career Services Relationship Specialty Start Date End Date Shakeel Villasenor MD [address] [place] [address] PCP - General Family Medicine 03/20/21 Team Status: Inactive Member Role Status Dates SHAYY Silverio Primary Care Provider Active Dr. Jeff Thakur DO Attending Provider, Emergency P dane Active Team Status: Inactive Member Role Status Dates SHAYY Silverio Primary Care Provider Active Ivett Laguerre CNM Attending Provider, Referring Pr hetal Active Associate Director Career Services Relationship Specialty Start Date End Date Shakeel Villasenor MD [address] [place] [address] PCP - General Family Medicine 03/20/21 Associate Director Career Services Relationship Specialty Start Date End Date Shakeel Villasenor MD [address] [place] [address] PCP - General Family Medicine 03/20/21 Associate Director Career Services Relationship Specialty Start Date End Date Shakeel Villasenor MD [address] [place] [address] PCP - General Family Medicine 03/20/21 Associate Director Career Services Relationship Specialty Start Date End Date Shakeel Villasenor MD [address] [place] [address] PCP - General Family Medicine 03/20/21 Associate Director Career Services Relationship Specialty Start Date End Date Shakeel Villasenor MD [address] [place] [address] PCP - General Family Medicine 03/20/21 Associate Director Career Services Relationship Specialty Start Date End Date Shakeel Villasenor MD [address] [place] [address] PCP - General Family Medicine 03/20/21 Associate Director Career Services Relationship Specialty Start Date End Date Shakeel Villasenor MD [address] [place] [address] PCP - General Family Medicine 03/20/21 Associate Director Career Services Relationship Specialty Start Date End Date Shakeel Villasenor MD [address] [place] [address] PCP - General Family Medicine 03/20/21 Associate Director Career Services Relationship Specialty Start Date End Date Shakeel Villasenor MD [address] [place] [address] PCP - General Family Medicine 03/20/21 Associate Director Career Services Relationship Specialty Start Date End Date Shakeel Villasenor MD [address] [place] [address] PCP - General Family Medicine 03/20/21 Associate Director Career Services Relationship Specialty Start Date End Date Shakeel Villasenor MD [address] [place] [address] PCP - General Family Medicine 03/20/21 Associate Director Career Services Relationship Specialty Start Date End Date Shakeel Villasenor MD [address] [place] [address] PCP - General Family Medicine 03/20/21 Associate Director Career Services Relationship Specialty Start Date End Date Shakeel Villasenor MD [address] [place] [address] PCP - General Family Medicine 03/20/21 Team Status: Inactive Member Role Status Dates SHAYY Silverio Primary Care Provider Active Dr. Inna Garcia MD Admit Provider, Attending Provider, Referring Provider Active Associate Director Career Services Relationship Specialty Start Date End Date Shakeel Villasenor MD [address] [place] [address] PCP - General Family Medicine 03/20/21 Associate Director Career Services Relationship Specialty Start Date End Date Shakeel Villasenor MD [address] [place] [address] PCP - General Family Medicine 03/20/21 Team Status: Inactive Member Role Status Dates SHAYY Silverio Primary Care Provider Active Dr. Jimmie Wang MD Attending Provider, Referring Provider Active Team Status: Inactive Member Role Status Dates SHAYY Silverio Primary Care Provider Active Kimi Simth CNM Attending Provider, Referring Prov ider Active Associate Director Career Services Relationship Specialty Start Date End Date Shakeel Villasenor MD [address] [place] [address] PCP - General Family Medicine 03/20/21 Associate Director Career Services Relationship Specialty Start Date End Date Shakeel Villasenor MD [address] [place] [address] PCP - General Family Medicine 03/20/21 Team Status: Inactive Member Role Status Dates Natalie LUCAS, PA Primary Care Provider Active Dr. Sandra Edwards , DO Admit Provider, Attending Provid er Active Associate Director Career Services Relationship Specialty Start Date End Date Shakeel Villasenor MD [address] [place] [address] PCP - General Family Medicine 03/20/21 Associate Director Career Services Relationship Specialty Start Date End Date Shakeel Villasenor MD [address] [place] [address] PCP - General Family Medicine 03/20/21 Associate Director Career Services Relationship Specialty Start Date End Date Shakeel Villasenor MD [address] [place] [address] PCP - General Family Medicine 03/20/21 Associate Director Career Services Relationship Specialty Start Date End Date Shakeel Villasenor MD [address] [place] [address] PCP - General Family Medicine 03/20/21 Associate Director Career Services Relationship Specialty Start Date End Date Shakeel Villasenor MD [address] [place] [address] PCP - General Family Medicine 03/20/21 Associate Director Career Services Relationship Specialty Start Date End Date Shakeel Villasenor MD [address] [place] [address] PCP - General Family Medicine 06/22/18 11/26/20 Associate Director Career Services Relationship Specialty Start Date End Date Shakeel Villasenor MD [address] [place] [address] PCP - General Family Medicine 03/20/21 Associate Director Career Services Relationship Specialty Start Date End Date Shakeel Villasenor MD [address] [place] [address] PCP - General Family Medicine 03/20/21 Associate Director Career Services Relationship Specialty Start Date End Date Shakeel Villasenor MD [address] [place] [address] PCP - General Family Medicine 03/20/21 Associate Director Career Services Relationship Specialty Start Date End Date Shakeel Villasenor MD [address] [place] [address] PCP - General Family Medicine 03/20/21 Lea Marie, RAYMOND.[employer]ENDER LABORER [address] [place] [address] [facility] 02/19/24 Natalie Blum PA-C [address] [place] [address] [facility] 02/19/24 Associate Director Career Services Relationship Specialty Start Date End Date Shakeel Villasenor MD [address] [place] [address] PCP - General Family Medicine 03/20/21 Lea Marie APRN.BLENDER LABORER [address] [place] [address] [facility] 02/19/24 Natalie Blum PA-C [address] [place] [address] [facility] 02/19/24 Associate Director Career Services Relationship Specialty Start Date End Date Shakeel Villasenor MD [address] [place] [address] PCP - General Family Medicine 03/20/21 Lea Marie, RAYMOND.[employer]ENDER LABORER [address] [place] [address] [facility] 02/19/24 Natalie Blum PA-C [address] [place] [address] [facility] 02/19/24 Associate Director Career Services Relationship Specialty Start Date End Date Shakeel Villasenor MD [address] [place] [address] PCP - General Family Medicine 03/20/21 Lea Marie [employer] OPERATOR.[employer]ER [employer]ER [address] [place] [address] [facility] 02/19/24 Natalie Blum PA-C [address] [place] [address] [facility] Associate Director Career Services Relationship Specialty Start Date End Date Shakeel Villasenor MD [address] [place] [address] PCP - General Family Medicine 03/20/21 Lea Marie, [employer] POWER [employer]ANT OPERATOR.[employer]ER [employer]ORER [address] [place] [address] [facility] 02/19/24 Natalie Blum PA-C [address] [place] [address] [facility] 02/19/24 Associate Director Career Services Relationship Specialty Start Date End Date Shakeel Villasenor MD [address] [place] [address] PCP - General Family Medicine 03/20/21 Lea Marie APRN.BLENDER LABORER [address] [place] [address] [facility] 02/19/24 Natalie Blum PA-C [address] [place] [address] [facility] 02/19/24 Associate Director Career Services Relationship Specialty Start Date End Date Shakeel Villasenor MD [address] [place] [address] PCP - General Family Medicine 03/20/21 Lea Marie APRN.BLENDER LABORER [address] [place] [address] [facility] 02/19/24 Natalie Blum PA-C [address] [place] [address] [facility] 02/19/24 Associate Director Career Services Relationship Specialty Start Date End Date hSakeel Villasenor MD [address] [place] [address] PCP - General Family Medicine 03/20/21 Lea Marie APRN.BLENDER [employer]ORER [address] [place] [address] [facility] 02/19/24 Natalie Blum PA-C [address] [place] [address] [facility] 02/19/24 Associate Director Career Services Relationship Specialty Start Date End Date Shakeel Villasenor MD [address] [place] [address] PCP - General Family Medicine 03/20/21 Lea Marie APRN.BLENDER LABORER [address] [place] [address] [facility] 02/19/24 Natalie Blum PA-C [address] [place] [address] [facility] 02/19/24 Associate Director Career Services Relationship Specialty Start Date End Date Shakeel Villasenor MD [address] [place] [address] PCP - General Family Medicine 03/20/21 Lea Marie APRN.BLENDER LABORER [address] [place] [address] [facility] 02/19/24 Natalie Blum PA-C [address] [place] [address] [facility] 02/19/24 Associate Director Career Services Relationship Specialty Start Date End Date Shakeel Villasenor MD [address] [place] [address] PCP - General Family Medicine 03/20/21 Lea Marie, [employer] POWER [employer] OPERATOR.BLENDER [employer]ORER [address] [place] [address] [facility] Natalie Blum PA-C [address] [place] [address] [facility] 02/19/24 Associate Director Career Services Relationship Specialty Start Date End Date Lea Marie, [employer] P[employer]ANT OPERATOR.BLENDER LABORER [address] [place] [address] [facility] 02/19/24 Natalie Blum PA-C [address] [place] [address] [facility] Associate Director Career Services Relationship Specialty Start Date End Date Lea Marie, [employer] P[employer] OPERATOR.BLENDER LABORER [address] [place] [address] [facility] 02/19/24 Natalie Blum PA-C [address] [place] [address] [facility] 02/19/24 Associate Director Career Services Relationship Specialty Start Date End Date Lea Marie, [employer] POWER PLANT OPERATOR.BLENDER LABORER [address] [place] [address] [facility] 02/19/24 Natalie Blum PA-C [address] [place] [address] [facility] 02/19/24 Associate Director Career Services Relationship Specialty Start Date End Date Lea Marie, [employer] P[employer] OPERATOR.BLENDER LABORER [address] [place] [address] [facility] 02/19/24 Natalie Blum PA-C [address] [place] [address] [facility] 02/19/24 Associate Director Career Services Relationship Specialty Start Date End Date Lea Marie, [employer] P[employer] OPERATOR.BLENDER LABORER [address] [place] [address] [facility] 02/19/24 Natalie Blum PA-C [address] [place] [address] [facility] 02/19/24 Associate Director Career Services Relationship Specialty Start Date End Date Lea Marie, [employer] POWER PLANT OPERATOR.BLENDER LABORER [address] [place] [address] [facility] 02/19/24 Natalie Blum PA-C [address] [place] [address] [facility] 02/19/24 Associate Director Career Services Relationship Specialty Start Date End Date Lea Marie APRN.BLENDER LABORER [address] [place] [address] [facility] 02/19/24 Natalie Blum PA-C [address] [place] [address] [facility] 02/19/24 Team Status: Inactive Member Role Status Dates Natalie LUCAS PA Primary Care Provider Active Start: June 23, 2024 End: June 23, 2024 Dr. Inna Garcia MD Attending Provider Active Start: June 23, 2024 End: June 23, 2024 Associate Director Career Services Relationship Specialty Start Date End Date Lea Marie APRN.BLENDER LABORER [address] [place] [address] [facility] 02/19/24 Natalie Blum PA-C [address] [place] [address] [facility] 02/19/24 Associate Director Career Services Relationship Specialty Start Date End Date Lea Marie APRN.BLENDER LABORER [address] [place] [address] [facility] 02/19/24 Natalie Blum PA-C [address] [place] [address] [facility] 02/19/24 Associate Director Career Services Relationship Specialty Start Date End Date Shakeel Villasenor MD [facility] [place] [address] PCP - General Family Medicine 03/20/21 06/06/24 Lea Marie APRN.BLENDER LABORER [address] [place] [address] [facility] 02/19/24 Natalie Blum PA-C [address] [place] [address] [facility] 02/19/24 Associate Director Career Services Relationship Specialty Start Date End Date Lea Marie APRN.BLENDER LABORER [address] [place] [address] [facility] 02/19/24 Natalie Blum PA-C [address] [place] [address] [facility] 02/19/24 Associate Director Career Services Relationship Specialty Start Date End Date Shakeel Villasenor MD [address] [place] [address] PCP - General Family Medicine 03/20/21 06/06/24 Lea Marie APRN.BLENDER LABORER [address] [place] [address] [facility] 02/19/24 Natalie Blum PA-C [address] [place] [address] [facility] 02/19/24 Associate Director Career Services Relationship Specialty Start Date End Date Lea Marie, RAYMOND.BLENDER LABORER [address] [place] [address] [facility] 02/19/24 Natalie Blum PA-C [address] [place] [address] [facility] 02/19/24 Associate Director Career Services Relationship Specialty Start Date End Date Lea Marie, [employer] P[employer] PLANT OPERATOR.BLENDER LABORER [address] [place] [address] [facility] 02/19/24 Natalie Blum PA-C [address] [place] [address] [facility] 02/19/24 Associate Director Career Services Relationship Specialty Start Date End Date Lea Marie, [employer] P[employer] PLANT OPERATOR.BLENDER LABORER [address] [place] [address] [facility] 02/19/24 Natalie Blum PA-C [address] [place] [address] [facility] 02/19/24 Associate Director Career Services Relationship Specialty Start Date End Date Lea Marie, [employer] POWER PLANT OPERATOR.BLENDER LABORER [address] [place] [address] [facility] 02/19/24 Natalie Blum PA-C [address] [place] [address] [facility] 02/19/24 Associate Director Career Services Relationship Specialty Start Date End Date Lea Marie, [employer] POWER PLANT OPERATOR.BLENDER LABORER [address] [place] [address] [facility] 02/19/24 Natalie Blum PA-C [address] [place] [address] [facility] 02/19/24 Associate Director Career Services Relationship Specialty Start Date End Date Lea Marie, [employer] POWER PLANT OPERATOR.BLENDER LABORER [address] [place] [address] [facility] 02/19/24 Natalie Blum PA-C [address] [place] [address] [facility] 02/19/24 Associate Director Career Services Relationship Specialty Start Date End Date Lea Marie, [employer] POWER PLANT OPERATOR.BLENDER LABORER [address] [place], [place] [address] [facility] 02/19/24 Natalie Blum PA-C [address] [place], [place] [address] [facility] 02/19/24 Associate Director Career Services Relationship Specialty Start Date End Date Lea Marie, [employer] POWER PLANT OPERATOR.[employer]ENDER LABORER [address] [place], [place] [address] [facility] 02/19/24 Natalie Blum PA-C [address] [place], [place] [address] [facility] 02/19/24 Goals (unrecognized section and content) Goals may be documented in a n alternate sectionGoals may be documented in an alternate sectionGoals may be documented in an alternate sectionGoals may be documented in an alternate sectionGoals may be documented in an alternate sectionGoals may be documented in an alternate sectionGoals may be documented in an alternate sectionGoals may be documented in an alternate sectionGoals may be documented in an alternate sectionGoals may be documented in an alternate section Inactive Administered Medications - up to 3 most recent administrations Administered Medications (un recognized section and content) Medication Order MAR Action Action Date Dose Rate Site iron sucrose iv piggyback 200 mg in NaCl 0.9% 100 mL (VENOFER) 200 mg, INTRAVENOUS, at 400 mL/hr, Administer over 15 Minutes, ONCE, 1 dose, On Wed05/24/23 at 1000, Please conduct a 30 minute post-dose observation. Refrigerate New Bag/Syringe/Bottle 05/24/2023 10:13 AM EDT 200 mg 400 mL/hr Inactive Administered Medications - up to 3 most recent administrations Medication Order MAR Action Action Date Dose Rate Site iron sucrose iv piggyback 200 mg in NaCl 0.9% 100 mL (VENOFER) 200 mg, INTRAVENOUS, at 400 mL/hr, Administer over 15 Minutes, ONCE, 1 dose, On Wed05/26/23 at 1400, Please conduct a 30 minute post-dose observation. Refrigerate New Bag/Syringe/Bottle 05/26/2023 2:50 PM EDT 200 mg 400 mL/hr Inactive Administered Medications - up to 3 most recent administrations Medication Order MAR Action Action Date Dose Rate Site iron sucrose iv piggyback 200 mg in NaCl 0.9% 100 mL (VENOFER) 200 mg, INTRAVENOUS, at 400 mL/hr, Administer over 15 Minutes, ONCE, 1 dose, On Wed06/01/23 at 1400, Please conduct a 30 minute post-dose observation. Refrigerate New Bag/Syringe/Bottle 06/01/2023 3:10 PM EDT 200 mg 400 mL/hr Inactive Administered Medications - up to 3 most recent administrations Medication Order MAR Action Action Date Dose Rate Site iron sucrose iv piggyback 200 mg in NaCl 0.9% 100 mL (VENOFER) 200 mg, INTRAVENOUS, at 400 mL/hr, Administer over 15 Minutes, ONCE, 1 dose, On Abiola 06/03/23 at 1330, Please conduct a 30 minute post-dose observation. Refrigerate New Bag/Syringe/Bottle 06/03/2023 1:31 PM EDT 200 mg 400 mL/hr FOR RECORDS PERTAINING TO PATIENTS WHO ARE [...] BE BASED ON THE PRIMARY CLINICAL RECORDS. [employer] [facility]. provides no warranty or guarantee of the accuracy or completeness of information in this document.
[2024-09-23 17:45] LABS: Hematocrit 29.6 % (37-47); Hemoglobin 9.4 g/dL (12.0-15.0); Mean Corp Hgb Conc 31.8 g/dL (32-36); Mean Corpuscular Volume 81.8 fL (81-99); Mean Platelet Vol. 9.5 fl (6.2-12.0); Platelet Count 284 K/mm3 (150-450); RBC Distribution Width CV 15.3 % (11.6-14.6); RBC Distribution Width SD 45.5 fl (35.1-43.9); Red Blood Count 3.62 M/mm3 (4.2-5.4); White Blood Count 8.5 K/mm3 (4.4-11.0)
[2024-09-23 18:03] LABS: Creatinine, Urine (random) 172.00 mg/dL (28.00-217.00)
[2024-09-23 18:15] LABS: Protein, Urine (Random) 283.0 mg/dL (0.0-12.0); Protein:Creat Ratio 1645 mg/g CRE (0-200)
[2024-09-23 18:22] LABS: AST(SGOT) 17 U/L (<=31); Alanine Aminotransfer ALT/SGPT 12 U/L (<=34); Estimated Creatinine Clearance 229.98 ml/min (50-250); Uric Acid 2.9 mg/dL (2.6-6.0)
--- NOTE | 2024-09-24 09:49 | OB.TRI.NOTE ---
HPI - General General Date of Service: 09/23/24 HPI Narrative LAINA DE LEÓN, is a 29 F who presents at 33w6d for complaint of mild headache 2/10, visual changes, and RUQ pain. History of preeclampsia. Mild headache the last day, tylenol x2 but still present. Admits to visual stars when in shower or positional changes or blinks a lot. Not consistent with scotoma. RUQ pain started yesterday on and off. Maternal Data Information BELEM Calculator Estimated Delivery Date Method Current WG Current Estimate 11/05/24 Manual 34w 0d PFSH PFS Medical History (Updated 09/24/24 @ 09:52 by Kimi Smith CNM) Polyhydramnios Gestational diabetes Gestational diabetes Home Medications ?Medication ?Instructions ?Recorded ?Last Taken ?Type vit no.95-ferrous 1 ea PO DAILY 02/14/18 06/23/24 History fumarate 28 mg-folic acid 800 mcg tablet ( Multivitamins) aspirin 81 mg chewable tablet 1 tab PO DAILY 06/23/24 06/23/24 History (Aspirin Childrens) ferrous sulfate 325 mg (65 mg 325 mg PO BID 06/23/24 06/23/24 History iron) tablet (Feosol) insulin NPH isoph U-100 human 100 16 unit subcut DAILY 06/23/24 06/23/24 20:00 History unit/mL (3 mL) subcutaneous pen (Humulin N NPH U-100 Insulin KwikPen) insulin NPH isoph U-100 human 100 32 unit subcut DAILY gdm 06/23/24 06/23/24 History unit/mL (3 mL) subcutaneous pen (Humulin N NPH U-100 Insulin KwikPen) Allergy/AdvReac Type Severity Reaction Status Date / Time cefdinir Allergy Vomiting Verified 09/23/24 17:24 morphine Allergy Rash Verified 09/23/24 17:24 peanut Allergy Anaphylaxis Verified 09/23/24 17:24 Surgical History (Updated 07/10/23 @ 00:04 by Rangel Bonilla) Gastric bypass status for obesity History of cholecystectomy Social History household members: children Smoking Status: Never smoker History 5 Elective abortions Hx Para 2 Spontaneous abortions Hx # Term Pregnancies Ectopic pregnancies Hx # Pregnancies Multiple births # of living children NST FHR Rate Baby A Baseline: 150 Variability:: Moderate Accelerations:: 15 x 15 Decelerations:: None NST Reactive:: Yes Assessment & Plan (1) Gestational diabetes requiring insulin: (2) Proteinuria affecting : PLAN: Plan 1) BP mostly normal range, two mildly elevated 2) P/C ratio elevated, remainder of labs normal 3) Headache mild, flexeril given. 4) Consulted due to GDM with insulin, , and P/C ratio elevation. Ok for D/C at this time and follow up this week in office.
== END 2024-09-23 19:33 | disposition home or self-care (01) ==
LOC: WPOUT 16:58 → WP 16:58
PROVIDERS: PCP Physician Assistant; Visit Provider Advanced Practice Midwife
DX: O12.13 Gestational proteinuria, third trimester (principal); O26.893 Other specified pregnancy related conditions, third trimester; R10.11 Right upper quadrant pain; O24.414 Gestational diabetes mellitus in pregnancy, insulin controlled; Z3A.33 33 weeks gestation of pregnancy; Z79.82 Long term (current) use of aspirin; Z87.59 Personal history of other complications of pregnancy, childbirth and the puerperium
CPT/HCPCS: 36415; 59025; 59050 ×2; 82565; 82570; 84156; 84450; 84460; 84550; 85027; G0378 ×2; 99221

== ENCOUNTER 2024-09-25 17:40 | Inpatient (IN) | payer MEDICAID, SELFPAY ==
[2024-09-25] VITALS (24 sets, daily range): BP systolic 109–144; BP diastolic 68–98; PULSE 74–108; RESP 14–18; TEMP 36.3–37.5; O2SAT 93–96; BMI 33.8
[2024-09-25 16:22] LABS: Hematocrit 30.0 % (37-47); Hemoglobin 9.1 g/dL (12.0-15.0); Mean Corp Hgb Conc 30.3 g/dL (32-36); Mean Corpuscular Volume 82.0 fL (81-99); Mean Platelet Vol. 9.6 fl (6.2-12.0); Platelet Count 293 K/mm3 (150-450); RBC Distribution Width CV 15.2 % (11.6-14.6); RBC Distribution Width SD 44.9 fl (35.1-43.9); Red Blood Count 3.66 M/mm3 (4.2-5.4); White Blood Count 12.0 K/mm3 (4.4-11.0)
[2024-09-25 16:52] LABS: AST(SGOT) 16 U/L (<=31); Alanine Aminotransfer ALT/SGPT 10 U/L (<=34); Estimated Creatinine Clearance 174.78 ml/min (50-250); Uric Acid 3.3 mg/dL (2.6-6.0)
[2024-09-25 17:01] LABS: Creatinine, Urine (random) 222.00 mg/dL (28.00-217.00)
[2024-09-25 17:13] LABS: Protein, Urine (Random) > 600.0 mg/dL (0.0-12.0); Protein:Creat Ratio UNABLE TO CALCULATE mg/g CRE (0-200)
[2024-09-25] MEDS: Magnesium Sulfate 4gm/100mL 4 GM/100 ML IV.SOLN. IV (18:05)
[2024-09-25] MEDS: Lactated Ringers 1,000 ML 25 ML IV (18:06)
[2024-09-25] MEDS: Magnesium Sulfate 4gm/100mL 2 GM/50 ML IV.SOLN. IV (18:23)
[2024-09-25] MEDS: Magnesium Sulfate 20 GM/500 ML BAG IV (18:35)
[2024-09-25 18:52] LABS: Syphilis Antibodies Nonreactive (Nonreactive)
[2024-09-25] MEDS: Oxytocin 15 Units/NS 250ml 15 UNITS/250 ML IV.SOLN 2 UNITS IV (19:29)
--- NOTE | 2024-09-25 19:49 | HP.PCM.OB_ITS ---
HPI - General General Date of Admission: 09/25/24 Date of Service: 09/25/24 Chief Complaint: headache HPI Narrative LAINA DE LEÓN, is a 29 F who presents 5 para 2-1-1-3 at 34 and 1 sevenths weeks complaining of a headache. She was seen on labor and delivery over the weekend and found to have elevated blood pressures and an elevated protein creatinine ratio. Her other labs were normal. She was discharged home with routine preeclampsia instructions and follow-up in the office today. Today in the office she states she had a persistent severe headache that did not improve with Tylenol. She also had some epigastric pain and states she just did not feel well. She denied any gross vaginal bleeding or leaking of fluid and she has had good movement. She denies regular contractions. is complicated to date by history of gestational hypertension, history of Esperanza-en-Y gastric bypass, anemia, gestational diabetes class A2 on insulin. Maternal Data Information BELEM Calculator Estimated Delivery Date Method Current WG Current Estimate 11/05/24 Manual 34w 1d Final BELEM: 11/05/24 Gestational age: 35 03/21 [facility] Medical History (Updated 09/25/24 @ 19:[address] Angie Escalera MD) Polyhydramnios Gestational diabetes Gestational diabetes Medical History no medical history Home Medications ?Medication ?Instructions ?Recorded ?Last Taken ?Type vit no.95-ferrous 1 ea PO DAILY 05/3006/23/24 History fumarate 28 mg-folic acid 800 mcg tablet ( Multivitamins) aspirin 81 mg chewable tablet 1 tab PO DAILY 06/23/24 06/23/24 History (Aspirin Childrens) ferrous sulfate 325 mg (65 mg 325 mg PO BID 06/23/24 0 06/23/24 History iron) tablet (Feosol) insulin NPH isoph U-100 human 100 16 unit subcut DAILY 06/23/24 06/23/24 20:00 History unit/mL (3 mL) subcutaneous pen (Humulin N NPH U-100 Insulin KwikPen) insulin NPH isoph U-100 human 100 32 unit subcut DAILY gdm 06/23/24 06/23/24 History unit/mL (3 mL) subcutaneous pen (Humulin N NPH U-100 Insulin KwikPen) Allergy/AdvReac Type Severity Reaction Status Date / Time cefdinir Allergy Vomiting Verified 09/25/24 16:31 morphine Allergy Rash Verified 09/25/24 16:31 peanut Allergy Anaphylaxis Verified 09/25/24 16:31 Family History no significant family his Surgical History (Updated 07/10/23 @ 00:04 by Background Daemon) Gastric bypass status for obesity History of cholecystectomy Surgical History no surgical history Social History household members: children Smoking Status: Never smoker History 5 Elective abortions Hx Para 2 Spontaneous abortions Hx # Term Pregnancies Ectopic pregnancies Hx # Pregnancies Multiple births # of living children NST FHR Rate Baby A Baseline: normal Variability:: Moderate Accelerations:: 15 x 15 FHR Category:: Category I Uterine Activity:: irreg c txs ROS ROS Narrative some dizziness, lightheadedness adn upper abd pain. Persistent DIEGO Constitutional Constitutional: Denies fatigue, fever(s) or malaise Cardiovascular Cardiovascular: Denies chest pain, dyspnea or lightheadedness Respiratory/Chest Respiratory/Chest: Denies cough or dyspnea Gastrointestinal Gastrointestinal: Denies change in bowel habits Genitourinary Genitourinary: Denies burning urination or genital lesions Integumentary Integumentary: Denies rash Neurologic Neurologic: Denies confusion, dizziness, headache(s), numbness or weakness Vital Signs Vital Signs Vital Signs: 09/25/24 15:39 09/25/24 15:39 09/25/24 15:54 Temperature Temperature Source Pulse Rate 96 Respiratory Rate Respiratory Effort Respiratory Depth Respiratory Pattern Blood Pressure 124/85 H 129/89 H Blood Pressure Mean BP Systolic 124 129 BP Diastolic 85 89 Blood Pressure Source Blood Pressure Position Blood Pressure Location Pulse Ox Oxygen Delivery Method 09/25/24 15:54 09/25/24 16:11 09/25/24 16:11 Temperature Temperature Source Pulse Rate 108 H 102 H Respiratory Rate Respiratory Effort Respiratory Depth Respiratory Pattern Blood Pressure 116/98 H Blood Pressure Mean BP Systolic 116 BP Diastolic 98 Blood Pressure Source Blood Pressure Position Blood Pressure Location Pulse Ox Oxygen Delivery Method 09/25/24 16:12 09/25/24 16:12 09/25/24 16:40 Temperature Temperature Source Pulse Rate 96 Respiratory Rate Respiratory Effort Respiratory Depth Respiratory Pattern Blood Pressure 125/82 H 130/89 H Blood Pressure Mean BP Systolic 125 130 BP Diastolic 82 89 Blood Pressure Source Blood Pressure Position Blood Pressure Location Pulse Ox Oxygen Delivery Method 09/25/24 16:40 09/25/24 16:55 09/25/24 16:55 Temperature Temperature Source Pulse Rate 103 H 101 H Respiratory Rate Respiratory Effort Respiratory Depth Respiratory Pattern Blood Pressure 125/84 H Blood Pressure Mean BP Systolic 125 BP Diastolic 84 Blood Pressure Source Blood Pressure Position Blood Pressure Location Pulse Ox Oxygen Delivery Method 09/25/24 17:10 09/25/24 17:10 09/25/24 17:25 Temperature Temperature Source Pulse Rate 99 Respiratory Rate Respiratory Effort Respiratory Depth Respiratory Pattern Blood Pressure 137/81 H 139/84 H Blood Pressure Mean BP Systolic 137 139 BP Diastolic 81 84 Blood Pressure Source Blood Pressure Position Blood Pressure Location Pulse Ox Oxygen Delivery Method 09/25/24 17:25 09/25/24 17:40 09/25/24 17:40 Temperature Temperature Source Pulse Rate 88 96 Respiratory Rate Respiratory Effort Respiratory Depth Respiratory Pattern Blood Pressure 144/97 H Blood Pressure Mean BP Systolic 144 BP Diastolic 97 Blood Pressure Source Blood Pressure Position Blood Pressure Location Pulse Ox Oxygen Delivery Method 09/25/24 17:56 09/25/24 17:56 09/25/24 18:07 Temperature Temperature Source Temporal Pulse Rate 92 Respiratory Rate Respiratory Effort Respiratory Depth Respiratory Pattern Blood Pressure 135/97 H Blood Pressure Mean BP Systolic 135 BP Diastolic 97 Blood Pressure Source Blood Pressure Position Blood Pressure Location Pulse Ox Oxygen Delivery Method 09/25/24 18:07 09/25/24 18:10 09/25/24 18:10 Temperature 97.5 F L Temperature Source Temporal Pulse Rate 92 90 Respiratory Rate 17 Respiratory Effort Normal Respiratory Depth Normal Respiratory Pattern Normal Blood Pressure 135/97 H 137/87 H Blood Pressure Mean 109 BP Systolic 137 BP Diastolic 87 Blood Pressure Source Monitor Blood Pressure Position Sitting Blood Pressure Location Left Arm Pulse Ox Oxygen Delivery Method Room Air 09/25/24 18:17 09/25/24 18:17 09/25/24 18:25 Temperature 97.3 F L Temperature Source Temporal Temporal Pulse Rate 90 Respiratory Rate 17 Respiratory Effort Respiratory Depth Respiratory Pattern Blood Pressure 137/87 H 128/74 H Blood Pressure Mean 103 BP Systolic 128 BP Diastolic 74 Blood Pressure Source Blood Pressure Position Sitting Blood Pressure Location Left Arm Pulse Ox Oxygen Delivery Method Room Air 09/25/24 18:25 09/25/24 18:30 09/25/24 18:30 Temperature 98.0 F Temperature Source Temporal Temporal Pulse Rate 96 90 Respiratory Rate 18 Respiratory Effort Normal Respiratory Depth Normal Respiratory Pattern Normal Blood Pressure 137/87 H Blood Pressure Mean 103 BP Systolic BP Diastolic Blood Pressure Source Monitor Blood Pressure Position Semi-Fowlers Blood Pressure Location Left Arm Pulse Ox Oxygen Delivery Method 09/25/24 19:31 09/25/24 19:31 09/25/24 19:31 Temperature Temperature Source Pulse Rate 82 Respiratory Rate Respiratory Effort Respiratory Depth Respiratory Pattern Blood Pressure 120/74 Blood Pressure Mean BP Systolic 120 BP Diastolic 74 Blood Pressure Source Blood Pressure Position Blood Pressure Location Pulse Ox 93 Oxygen Delivery Method 09/25/24 19:31 09/25/24 19:31 09/25/24 19:31 Temperature Temperature Source Temporal Pulse Rate Respiratory Rate 14 Respiratory Effort Respiratory Depth Respiratory Pattern Blood Pressure Blood Pressure Mean BP Systolic BP Diastolic Blood Pressure Source Blood Pressure Position Blood Pressure Location Pulse Ox 95 Oxygen Delivery Method 09/25/24 19:31 Temperature 97.8 F Temperature Source Pulse Rate Respiratory Rate Respiratory Effort Respiratory Depth Respiratory Pattern Blood Pressure Blood Pressure Mean BP Systolic BP Diastolic Blood Pressure Source Blood Pressure Position Blood Pressure Location Pulse Ox Oxygen Delivery Method Weight Weight: 86.636 kg Body Mass Index (BMI) 33.8 Physical Exam Narrative 2+ DTRs, no clonus Const alert and no apparent distress General Appearance: cooperative HEENT normocephalic Resp normal respiratory effort Cardio regular rate GI soft to palpation GI Narrative: gravid, nontender, appropriate for gestational age Extremity no calf tenderness General Extremity: edema Skin no wounds Rashes: No rashes noted Psych activity/motor behavior normal Labs Labs Labs: Blood Type A NEGATIVE Antibody Screen POSITIVE Hct 30.0 % (37-47) L Hgb 9.1 g/dL (12.0-15.0) L Obstetrics Ultrasound Syphilis Total Ab Nonreactive (Nonreactive) Group B Strep DNA Negative (Negative) Rhogam given: Yes Assessment & Plan (1) 34 weeks gestation of : (2) High-risk , elderly multigravida in third trimester: (3) Gestational diabetes requiring insulin: (4) Headache in : QUALIFIERS: Trimester: third trimester Qualified Code(s): O26.893 - Other specified related conditions, third trimester; R51.9 - Headache, unspecified (5) Pre-eclampsia, severe, antepartum: PLAN: Plan Response alternatives to induction of labor discussed with patient questions were answered to her satisfaction she desires to proceed. She is being induced for preeclampsia with severe features. She has a persistent severe headache limiting her activity today. She has significant proteinuria. Other preec lampsia labs are normal. Estimated weight is less than 4500 g and pelvis clinically adequate to expect vaginal delivery. Underwriting Clerks Supervisor has been consulted to discuss with the patient special care nursery and indications for transport should they arrive due to patient's prematurity. Magnesium sulfate prophylaxis for preeclampsia initiated Group B strep was obtained and penicillin prophylaxis initiated since group B strep status is unknown Pitocin for induction May use routine pain control measures during labor Tylenol as needed for headache, ordered for 0.5 mg of Dilaudid IV x 1 for her he adache Blood pressures are not in severe range at this time but will monitor them closely Will monitor blood sugars closely.
[2024-09-25] MEDS: Penicillin G Pot 5,000,000 UNITS in 0.9% Normal Saline (100mL MB+) 100 ML 150 UNITS IV (19:50)
[2024-09-25] MEDS: HYDROmorphone 0.5 MG/0.5 ML SYRINGE IV (20:01)
[2024-09-25] MEDS: 0.9% Saline Lock 10 ML Syringe IV (20:01)
--- OUTSIDE RECORDS SUMMARY | 2024-09-25 23:06 | XMS RPT_ITS | CCD ---
Author Organization [facility] CliniSyct Care Team Providers [employer] Principal Name Role Phone Shakeel Villasenor MD Primary Care Provider BRENDA YOST Referring Unavailable SHAKEEL VILLASENOR Primary Care Unavailable BRENDA YOST Referring Unavailable SHAKEEL VILLASENOR Primary Care Unavailable Shakeel Villasenor MD Primary Care Provider Shakeel Villasenor MD Primary Care Provider Shakeel Villasenor MD Primary Care Provider [phone] Shakeel Villasenor MD Primary Care Provider Cynthia RAMON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, Lea Unavailable Natalie Blum PA-C Unavailable JOCELYNN [...] Unavailable Margaret Clay NP Attending Unavailable Natalie Lye Referring Unavailable Kimi Smith CNM Attending Provider [phone] EDDI SNEED Attending Unavaila KAYY Basurto Referring Unavailable GÉNESIS JULES Attending Unavail able YOVANI MORA Referring Unavailable JACKLYN, SHAKEEL A Primary Care Unavailable KALPANA LAGUERRE Attending Unavailable CORETTA, KAYY Referring Unavailable JACKLYN, SHAKEEL A Primary Care Unavailable CORETTA, KAYY Referring Unavailable CORETTA, KAYY Referring Unavailable NEYHART WANG, GÉNESIS Referring Unavail able NEYHART WANG, GÉNESIS Referring Unavail able GRACIE NAVARRO Attending Unavailable NEYHART WANG, GÉNESIS Referring Unavail able WISSANDRA ABDI Attending Unavailable NEYHART WANG, GÉNESIS Referring Unavail able NEYHART WANG, GÉNESIS Referring Unavail able INNA GARCIA Attending Unavailable JACKLYN, SHAKEEL A Primary Care Unavailable NEYJAMES KINNEYOSH, GÉNESIS Attending Unavail able EDDI SNEED Attending Unavaila YOVANI Aparicio Referring Unavailable YOVANI MORA Referring Unavailable BENDEDDI KO Attending Unavaila INNA Riley Referring Unavailable SANDRA EDWARDS Attending Unavailable WISWELL, SANDRA Referring Unavailable JACKLYN, SHAKEEL A Primary Care Unavailable CORETTA, KAYY Referring Unavailable YOVANI MORA Attending Unavailable JACKLYN, SHAKEEL A Primary Care Unavailable JACKLYN, SHAKEEL A Primary Care Unavailable CORETTA, KAYY Referring Unavailable JACKLYN, SHAKEEL A Primary Care Unavailable INNA GARCIA Referring Unavailable JACKLYN, SHAKEEL A Primary Care Unavailable INNA GARCIA Referring Unavailable CORETTA, KAYY Referring Unavailable JACKLYN, SHAKEEL A Primary Care Unavailable JACKLYN, SHAKEEL A Primary Care Unavailable CORETTA, KAYY Attending Unavailable CORETTA, KAYY Referring Unavailable JACKLYN, SHAKEEL A Primary Care Unavailable JACKLYN, SHAKEEL A Primary Care Unavailable CORETTA, KAYY Referring Unavailable WISWELL, SANDRA Referring Unavailable JACKLYN, SHAKEEL A Primary Care Unavailable CORETTA, KAYY Referring Unavailable JACKLYN, SHAKEEL A Primary Care Unavailable COERTTA, KAYY Referring Unavailable CORETTA, KAYY Referring Unavailable JACKLYN, SHAKEEL A Primary Care Unavailable CORETTA, KAYY Referring Unavailable INNA GARCIA Attending Unavailable Allergies Allergy Classification Reported Allergen(s) Allergy Type Date of Onset Reaction(s) Facility (20 sources) cefdinir; Translations: [CEFDINIR] Drug Allergy 3 Vomiting [facility] Work Phone: (20 sources) Morphine; Translations: [MORPHINE] Drug Allergy 4 Hives, Shortness of Breath [facility] Work Phone: (20 sources) peanut; Translations: [PEANUTS] Food Intolerance 5 Swelling [facility] Work Phone: (12 sources) peanut allergenic extract Drug Allergy 3 Anaphylaxis [facility] (1 source) cefdinir Drug Allergy 5 [facility] Repository (1 source) Morphine Drug Allergy 5 [facility] Rep[facility] (1 source) peanut allergenic extract Drug Allergy 5 [facility] Repository Medications Current Medications Medication Drug Class(es) Dates Sig (Normalized) Sig (Original) aspirin 81 mg chewable tablet (20 sources) Platelet Aggregation Inhibitor, Nonsteroidal Anti-inflammatory Drug Start: 06-23-2024 take 1 tablet by mouth once daily Aspirin (Aspirin Childrens) 81 mg tablet,chewable Active 1 {tbl} PO DAILY June 23, 2024 12:00am Start: 03-31-2024 take 1 tablet by chuck th once daily aspirin, enteric coated (ECOTRIN LOW [...] 04, 2019 12:00am October 19, 2019 12:01pm gthn Start: 08-29-2019 End: 11-29-2020 take 1 tablet [...] by mouth once daily. Blood-Glucose Sensor (FREESTYLE ELEANOR 3 PLUS SENSOR) ira (20 sources) Start: 09-07-2024 Blood-Glucose Sensor (FREESTYLE ELEANOR 3 PLUS SENSOR) ira Indications: Insulin controlled gestational diabetes mellitus (GDM) in second trimester (HCC) Please change every 15 days 6 each 1 09/07/2024 Active Start: 06-22-2024 End: 09-07-2024 Blood-Glucose Sensor (FREEST YLE ELEANOR 3 PLUS SENSOR) ira Indications: Insulin controlled gestational diabetes mellitus (GDM) in second trimester (HCC) Please change every 15 days 6 each 1 06/22/2024 09/07/2024 Discontinued Start: 06-22-2024 Blood-Glucose Sensor (FREESTYLE ELEANOR 3 PLUS SENSOR) ira Indications: Insulin controlled [...] once daily. flash glucose scanning reader (FREESTYLE ELEANOR 14 DAY READER) (1 source) Start: 06-17-2024 End: 06-18-2024 flash glucose scanning reader (FREESTYLE ELEANOR 14 DAY READER) Use to check blood sugar at least 4 times daily. 1 each 06/17/2024 06/18/2024 Active flash glucose sensor (FREESTYLE ELEANOR 14 DAY SENSOR) kit (20 sources) Start: 06-17-2024 flash glucose sensor (FREESTYLE ELEANOR 14 DAY SENSOR) kit Apply new sensor [...] U SC DAILY June 23, 2024 12:00am gdm Start: 06-23-2024 Insulin Nph Is oph U-100 [...] 04, 2023 12:00am July 06, 2023 8:53am Diabetes Start: 07-04-2023 End: 07-06-2023 Insulin Nph Isoph U-100 Gina n (Humulin N Nph Insulin Kwikpen) 100 unit/mL (3 mL) Insulin Pen Discontinued 16 U SC AT BEDTIME July 04, 2023 12:00am July 06, 2023 8:53am Diabetes Start: 06-28-2023 End: 09-13-2023 insulin NPH subcutaneous [...] Discontinued 20 U SC WITH BREAKFAST 0 0 June 10, 2023 12:00am July 04, 2023 7:14am Start: 06-10-2023 End: 07-04-2023 Insulin Nph Isoph U-100 Gina n (Humulin N Nph Insulin Kwikpen) 100 unit/mL (3 mL) Insulin Pen Discontinued 10 U SC AT BEDTIME 0 0 June 10, 2023 12:00am July 04, [...] as needed for nausea and vomiting 9 3 0 December 20, 2022 12:00am April 12, 2023 [...] Cmb#95-Ferrous Fumarate-Fa ( Multivitamins) 1 EACH tablet (12 sources) Start: 02-14-2018 Pnv Cmb#95-Ferrous Fumarate-Fa ( [...] needed for Pain 1-10 Or Fever 0 0 July 06, 2023 12:00am June 23, [...] by mouth every 6 hours as needed. [id number] 200 actuat albuterol 0.09 mg/actuat metered dose inhaler (10 sources) beta2-Adrenergic Agonist Start: 023 End: take 2 puff(s) by inhalation every [...] oral tablet (5 sources) Tricyclic Antidepressant Start: End: take 1 tablet by mouth once [...] Take 1 tablet by chuck th every 12 hours for 10 days. Breast [...] above: Take 1 tablet by chuck th twice daily. Take 1 tablet daily for 1 week and then increase to 1 tablet BID. Take 1 tablet by chuck th twice daily. cholecalciferol 1.25 mg oral capsule (5 sources) Vitamin D Start: End: take 1 capsule by mouth every week cholecalciferol, Vitamin D3, (VITAMIN D3) 1,250 mcg (50,000 unit) cap capsule Take 1 capsule by mouth one time a week. 12 capsule 0 05/17/2020 08/22/2021 Discontinued Comment on above: Take 1 capsule by mo [facility] one time a week. cholecalciferol, vitamin D3, [...] Comment on above: Take 1 capsule by [facility] twice daily for 7 days. 21 day ethinyl estradiol 0.343695 mg/hr / etonogestrel 0.005 mg/hr vaginal system (20 sources) Progestin, Estrogen Start: 02-02-20 End: 03-31-19 Etonogestrel-Ethinyl Estradiol (NUVARING) 0.12-0.015 mg/24 hr vaginal ring Use 1 Each vaginally as directed. 1 Each 13 02/02/2024 03/31/2024 Discontinued Start: 11-28-2019 End: 10-16-2022 Etonogestrel-Ethinyl Estradi ol (NUVARING) 0.12-0.015 mg/24 hr vaginal ring Use 1 Each vaginally as directed. 1 Each 11/28/2019 08/22/2021 Discontinued Comment on above: Use [...] Comment on above: Take 2 tablets by [facility] two times a day. ibuprofen 600 mg oral tablet (3 sources) Nonsteroidal Anti-inflammatory Drug Start: 07-06-19 End: 06-24-19 take 1 tablet by mouth every six hours as needed for pain Ibuprofen 600 mg Tablet Discontinued 600 mg PO EVERY 6 HOURS NEEDED as needed for Pain Score 1-10 0 0 July 06, 2023 12:00am June 23, 2024 10:29pm 3 ml insulin glargine 100 unt/ml pen injector (17 sources) Insulin Analog Start: 06-18-19 End: 06-23-19 [...] 25, 2019 12:00am October 19, 2019 12:01pm gdm Start: 09-25-2019 End: 10-19-2019 inject 10 [IU] [...] post-dose observation. metoclopramide 10 mg oral tablet (12 sources) Dopamine-2 Receptor Antagonist Start: 08-28-2022 End: 12-19-2022 take 1 tablet by mouth every six hours as needed for nausea and vomiting Metoclopramide Hcl (Reglan) 10 mg tablet Discontinued 10 mg PO EVERY 6 HOURS as needed for nausea and vomiting 14 0 August 28, 2022 12:00am December 19, 2022 [...] tablet by chuck th DAILY (6 AM). Vsbxlkra-Mf-Jrv-Fe-FA ( VITAMIN) tab (1 source) End: 11-30-19 take 1 tablet by mouth once Hkgiuhdb-Cz-Rmx-Fe-F A ( VITAMIN) tab Take 1 tablet by mouth. 11/29/2020 Discontinued 2 ml rho(d) immune globulin, human 750 unt/ml prefilled syringe (1 source) Human Immunoglobulin G Start: 04-28-19 End: 04-28-19 RhoD immune globulin 300 mcg injection (RHOPHYLAC) sucralfate 100 mg/ml oral suspension (12 sources) Aluminum Complex Start: 08-29-19 End: 12-20-19 take 1 mL by mouth twice daily as needed for pain Sucralfate (Carafate) 100 mg/mL suspension Discontinued 10 mL PO TWICE A DAY as needed for epigastric pain 400 0 August 28, 2022 3:49am December 19, 2022 8:56pm Problems Active Problems Problem Classification Problem Date Documented Da te Episodic/Chronic Administrative/social admission (12 sources) Multiparous; Translations: [Problems related to multiparity] 09-27-2019 Episodic Conditions associated with dizziness or vertigo (8 sources) Lightheadedness; Translations: [Dizziness and giddiness] 04-12-2023 Episodic Contraceptive and procreative management (13 sources) Contraception status; Translations: [Encounter for surveillance of vaginal ring hormonal contraceptive device] Onset: 08-14-2024 Episodic Deficiency and other anemia (1 source) Iron deficiency anemia; Translations: [Other iron deficiency anemias] 05-31-2024 Episodic Diabetes mellitus without complication (2 sources) Type 1 diabetes mellitus well controlled; Translations: [Type 1 diabetes mellitus without complications] 06-22-2024 Chronic Diabetes or abnormal glucose tolerance complicating ; childbirth; or the puerperium (1 source) Diabetes mellitus in mother complicating , childbirth AND/OR puerperium; Translations: [Unspecified pre-existing diabetes mellitus in , second trimester] 06-23-2024 Chronic Early or threatened labor (12 sources) False labor before 37 completed weeks of gestation; Translations: [False labor before 37 completed weeks of gestation, third trimester] 08-01-2018 Episodic Headache; including migraine (18 sources) Headache; Translations: [Headache] 04-12-2023 Episodic Headache; including migraine (1 source) Headache; including migraine; Translations: [Headache, unspecified] Onset: 07-11-2023 Hypertension complicating ; childbirth and the puerperium (1 source) Pre-eclampsia; Translations: [Unspecified pre-eclampsia, third trimester] Onset: 09-25-2024 09-25-2024 Episodic Immunizations and screening for infectious disease (20 sources) Patient encounter status; Translations: [Encounter for screening for human papillomavirus (HPV)] Onset: 08-14-2024 Episodic Menstrual disorders (4 sources) Missed period; Translations: [Irregular menstruation, unspecified] Onset: 03-02-2024 01-24-2024 Chronic Nausea and vomiting (15 sources) Nausea and vomiting; Translations: [Nausea with [...] trimester] Onset: 05-30-2024 Chronic Other complications of (12 sources) Vaginal discharge; Translations: [Other specified related conditions, third trimester] 08-01-2018 Episodic Other complications of (2 sources) with inconclusive viability, not applicable or unspecified; Translations: [ with inconclusive viability] 12-01-2022 Episodic Other complications of (14 sources) High risk ; Translations: [Supervision of high risk , unspecified, second trimester] 01-29-2023 Episodic Other complications of (4 sources) Vomiting of , unspecified; Translations: [Unspecified vomiting of , unspecified as to episode of care or not applicable] 06-12-2023 Episodic Other complications of (2 sources) Back pain complicating ; Translations: [Back pain affecting in second trimester] 2024 Episodic Other complications of (1 source) Supervision of high risk , unspecified, second trimester; Translations: [Supervision of high risk in second trimester (HCC)] Onset: 07-24-2024 Episodic Other connective tissue disease (1 source) Cramp in lower limb; Translations: [Cramp and spasm] Episodic Other female genital disorders (3 sources) Vaginal bleeding; Translations: [Abnormal uterine and vaginal bleeding, unspecified] 07-04-2023 Chronic Other female genital disorders (1 source) Abnormal uterine and vaginal bleeding, unspecified; Translations: [Other specified noninflammatory disorders of vagina] 07-06-2023 Chronic Other female genital disorders (6 sources) Uterine contractions present; Translations: [Other specified [...] procedure; Translations: [Bariatric surgery status] Episodic Other liver diseases (1 source) Enzyme [...] sinusitis; Translations: [Chronic sinusitis, unspecified] 11-02-2022 Chronic Residual codes; unclassified (14 sources) Gestation period, 33 weeks; Translations: [33 [...] of ] 06-01-2023 Episodic Residual codes; unclassified (6 sources) Gestation period, 29 weeks; Translations: [29 weeks gestation of ] 05-17-2023 Episodic Residual codes; unclassified (4 sources) 29 weeks gestation of ; Translations: [ state, incidental] 05-17-2023 Episodic Residual codes; unclassified (7 sources) 33 weeks gestation of ; Translations: [ state, incidental] Onset: 09-21-2024 06-10-2023 Episodic Residual codes; unclassified (2 sources) Gestation period, 34 weeks; Translations: [34 weeks gestation of ] 06-18-2023 Episodic Residual codes; unclassified (3 sources) Gestation period, 35 weeks; Translations: [35 weeks gestation of ] 06-25-2023 Episodic Residual codes; unclassified (5 sources) Gestation period, 36 weeks; Translations: [36 [...] of ] 05-31-2024 Episodic Residual codes; unclassified (8 sources) Gestation period, 20 weeks; Translations: [20 [...] 09-07-2024 Episodic Residual codes; unclassified (1 source) 30 weeks gestation of ; Translations: [30 weeks gestation of (HCC)] Onset: 08-29-2024 Episodic Residual codes; unclassified (1 source) 28 weeks gestation of ; Translations: [28 weeks gestation of (HCC)] Onset: 08-14-2024 Episodic Residual codes; unclassified (1 source) 25 weeks gestation of ; Translations: [25 weeks gestation of (HCC)] Onset: 07-24-2024 Episodic Spontaneous (1 source) with abortive outcome; [...] diseases and conditions complicating ] Onset: 06-28-2024 Past or Other Problems Problem Classification Problem Date Documented Da te Episodic/Chronic Abdominal pain (18 sources) Left upper quadrant pain; Translations: [Left upper quadrant pain] Onset: 10-01-2023 Episodic Asthma (20 sources) Childhood asthma; Translations: [Unspecified asthma, uncomplicated] Onset: 01-03-2018 Resolved: 10-31-2019 10-31-2019 Chronic Deficiency and other anemia (20 sources) Anemia; Translations: [Anemia, unspecified] Onset: 05-04-2023 05-04-2023 Episodic Deficiency and other anemia (1 source) Anemia, unspecified; Translations: [Anemia, unspecified type] Onset: 06-16-2024 Episodic Deficiency and other anemia (1 source) Iron deficiency anemia, unspecified; Translations: [Maternal iron deficiency anemia complicating , second trimester (HCC)] Onset: 06-05-2024 Episodic Diabetes mellitus without complication (20 sources) Abnormal glucose level; Translations: [Other abnormal glucose] Onset: 05-31-2018 Resolved: 08-05-2018 08-05-2018 Episodic Diabetes or abnormal glucose tolerance complicating ; childbirth; or the puerperium (20 sources) History of gestational diabetes mellitus; Translations: [Personal history of gestational diabetes] Onset: 05-16-2020 Resolved: 03-31-2024 05-16-2020 Episodic Hemorrhage during ; abruptio placenta; [...] [Other specified related conditions, unspecified trimester] Onset: 11-05-2018 11-09-2023 Episodic Other complications of (10 sources) Other specified related conditions, unspecified trimester; Translations: [Other specified complications of , antepartum condition or complication] Onset: 06-16-2024 06-10-2023 Episodic Other complications of (20 sources) Finding [...] surgery status] Onset: 01-01-2023 01-01-2023 Episodic Other gastrointestinal disorders (8 sources) Bariatric surgery status; Translations: [Bariatric surgery status] Onset: 06-16-2024 05-17-2023 Episodic Other lower respiratory disease (20 sources) [...] cyst, left side] Onset: 12-16-2023 11-05-2022 Episodic Polyhydramnios and other problems of amniotic cavity (20 sources) Polyhydramnios; Translations: [Polyhydramnios, third trimester, not applicable or unspecified] Onset: 07-05-2018 Resolved: 03-31-2024 05-26-2023 Episodic Residual codes; unclassified (20 sources) History [...] 06-17-2024 Episodic Residual codes; unclassified (1 source) Unspecified blood type, Rh negative; Translations: [Rh negative state in antepartum period (HCC)] Onset: 06-16-2024 Episodic Residual codes; unclassified (1 source) 20 weeks gestation of ; Translations: [20 weeks gestation of (HCC)] Onset: 06-22-2024 Episodic Residual codes; unclassified (1 source) 8 weeks gestation of ; Translations: [8 weeks gestation of ] Onset: 04-14-2024 Episodic Short gestation; low weight; and growth retardation (20 sources) Prematurity of ; Translations: [ , unspecified weeks of gestation] [...] Test Name Value Interpretation Reference Range Facility [facility] 09-25-2024 CNCO [facility] CNPN Telephone (OBGYWM) ----- LAINA DE LEÓN ([id number]) 1995 F CHT Date Time Provider Department 09/25/24 YOVANI MORA OBGYWM During your visit today, we recorded the following information about you: Laina Cardoza RN 09/25/2024 9:10 AM Addendum [id number] Pt calls to get appointment scheduled today. Was on LANDD this and was kept for a few hours on Wednesday. States was having vision changes-Pt states they have not gotten any worse-every once in awhile having floating spots. States had increased protein in urine and increase in BP. Pt not checking BP at home/States not on BP medications at home. Offered AM appt with AT; However, Pt states she is unable to come in this AM as her older child is having tubes placed in ears at [facility] and his father is out of town. Did advise Pt that she should be seen sooner d/t having symptoms; However, pt states sx have not worsened and Appt scheduled today with SW at 2:40pm. Laina Cardoza RN Allergies As of Date: 09/25/2024 Noted Allergy Reaction CEFDINIR 04/11/2012 11 - Vomiting MORPHINE 05/15/2013 4 - Hives 12 - Shortness of Breath Comments: given medication at [facility] and reacted PEANUTS 12/18/2014 7 - Swelling Comments: redness Date Reviewed: 09/21/2024 Reviewed by: Donna Miguel MA - Fully Assessed Reason for Visit: follow-up LANDD [Other] Prescriptions as of 09/25/2024 - Blood-Glucose Sensor (FREESTYLE EELANOR 3 PLUS SENSOR) ira Please change every 15 days - insulin NPH (HUMULIN N NPH INSULIN KWIKPEN) 100 unit/mL (3 mL) injection pen Take 32 units before breakfast and 9 units before dinner - BD ULTRAFINE III MINI PEN 31 gauge x 3/16 1 each as needed. - flash glucose sensor (FREESTYLE ELEANOR 14 DAY SENSOR) kit Apply new sensor [...] Take 1 tablet by mouth once daily. 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] [...] for sterilization [Z30.2] 08/14/2024 Encounter Status:Closed by LAINA CARDOZA on 09/25/24 Normal [facility] Erythrocyte distribution wid th ratioOrdered By: Kimi Smith on 09-23-2024 Erythrocyte distribution width (RBC) [Ratio] 15.3 % High 11.6-14.6 [facility] Erythrocyte distribution wid th standard deviationOrdered By: Kimi Smith on 09-23-2024 Erythrocyte distribution width (RBC) [Ratio] 45.5 fl High 35.1-43.9 [facility] Glomerular filtration rate ( GFR) estimation/1.73 sq m using serum, plasma, or whole bOrdered By: Kimi Smith on 09-23-2024 GFR/1.73 sq M.predicted among non-blacks MDRD (S/P/Bld) [Vol rate/Area] 140 mL/min/{1.73_m2} >60 [facility] Comment on above: mL/min/1.73m2 CKD-EP I Creatinine Equation (2020) Hematocrit Auto (Bld) [Volum e fraction]Ordered By: Kimi Smith on 09-23-2024 Hematocrit (Bld) [Volume fraction] 29.6 % Low 37-47 [facility] Hemoglobin measurementOrdere d By: Kimi Smith on 09-23-2024 Hemoglobin (Bld) [Mass/Vol] 9.4 g/dL Low 12.0-15.0 [facility] Laboratory - Chemistry and C hemistry - challengeOrdered By: Kimi Smith on 09-23-2024 AST [Catalytic activity/Vol] 17 U/L <32 [facility] MCV (mean corpuscular volume ) determinationOrdered By: Kimi Smith on 09-23-2024 MCV (RBC) [Entitic vol] 81.8 fL 81-99 [facility] Mean corpuscular hemoglobin (MCH) determinationOrdered By: Kimi Smith on 09-23-2024 MCH (RBC) [Entitic mass] 26.0 pg Low 27.0-32.0 [facility] Mean corpuscular hemoglobin concentration (MCHC) determinationOrdered By: Kimi Smith on 09-23-2024 MCHC (RBC) [Mass/Vol] 31.8 g/dL Low 32-36 [facility] Mean platelet volume determi nationOrdered By: Kimi Smith on 09-23-2024 Platelet mean volume (Bld) [Entitic vol] 9.5 fL 6.2-12.0 [facility] Platelet countOrdered By: Jacoby Smith on 09-23-2024 Platelets (Bld) [#/Vol] 284 10*3/uL 150-450 [facility] RBC Auto (Bld) [#/Vol]Ordere d By: Kimi Smith on 09-23-2024 RBC (Bld) [#/Vol] 3.62 10*6/uL Low 4.2-5.4 [facility] Random urine creatinine alia urement (mass/volume)Ordered By: Kimi Smith on 09-23-2024 Creatinine Unsp time (U) [Mass/Vol] 172.00 mg/dL 28.00-217.00 [facility] Serum creatinine measurement (mass/volume)Ordered By: Kimi Smith on 09-23-2024 Creatinine [Mass/Vol] 0.38 mg/dL Low 0.70-1.20 [facility] Serum or plasma alanine meyer otransferase (ALT) measurementOrdered By: Kimi Smith on 09-23-2024 ALT [Catalytic activity/Vol] 12 U/L <35 [facility] Serum or plasma uric acid me asurement (mass/volume)Ordered By: Kimi Smith on 09-23-2024 Urate [Mass/Vol] 2.9 mg/dL 2.6-6.0 [facility] Comment on above: The drugs N-Acetylcy steine and Metamizole may falsely depress this assay. Urine protein measurement (m ass/volume)Ordered By: Kimi Smith on 09-23-2024 Protein (U) [Mass/Vol] 283.0 mg/dL High 0.0-12.0 [facility] Comment on above: Previous reported re sult: 405.0 mg/dLEdited by: KANDACE on 09/23/24:1815 AMENDED REPORT 09/23/24 181 PROTEIN,UR.RAN. previously reported as: 405.0 H mg/dL Urine protein/creatinine mas s ratioOrdered By: Kimi Smith on 09-23-2024 Protein/Creatinine (U) [Mass ratio] 1645 mg/g CRE High 0-200 [facility] Comment on above: Previous reported re sult: 2355 mg/g CREEdited by: KANDACE on 09/23/24:1814 AMENDED REPORT 09/23/241814 PROT:CRE RATIO previously reported as: 2355 H mg/g CRE White blood cell (WBC) count Ordered By: Kimi Smith on 09-23-2024 WBC (Bld) [#/Vol] 8.5 10*3/uL 4.4-11.0 [facility] URINE OB DIP B/Oon 5 Glucose Ql (U) Negative Neg mg/dL [facility] Interpretation and review of laboratory results Normal [facility] Protein.monoclonal (U) [Mass/Vol] Negative Neg mg/dL [facility] Examination level ultrasound on 09-07-2024 [facility] Radiology Study observation (narrative) [facility] URINE OB DIP B/Oon 5 Glucose Ql (U) Negative Neg mg/dL [facility] Interpretation and review of laboratory results Normal [facility] Protein.monoclonal (U) [Mass/Vol] trace Neg mg/dL [facility] CNOVon 08-29-2024 CNOV Office Visit (ENWSTR ) ----- LAINA DE LEÓN ([id number]) 1995 F [facility] Date Time Provider Department 08/29/24 8:40 AM EDDI SNEED ENWSTR During your visit today, we recorded the following information about you: Pulse Respiration Blood pressure Weight 74/minute 18/minute 100/68 84.8 kg Diana Munoz RN 08/30/2024 10:25 PM Signed Eddi Sneed MD 08/30/2024 10:25 PM Addendum [facility] Follow up visit note Referred by: Inna Garcia MD (OBGYN) Chief complaint: Gestational Diabetes Mellitus My final recommendations will be communicated back to the requesting physician by way of shared medical record or letter via US mail. History of Present Illness: Laina De León is a 29 year old [...] of Personal CGM Findings: Type of CGM: Veeker eleanor 3+ August 02, 2024 to August 29, [...] Diagnosis Date Anemia complicating , first trimester ([facility]) 03/24/2019 Anemia during in second trimester ([facility]) 05/19/2023 Asthma as a child Childhoo (more content not included)... Normal [facility] URINE OB DIP B/Oon Glucose Ql (U) Negative Neg mg/dL [facility] Interpretation and review of laboratory results Normal [facility] Protein.monoclonal (U) [Mass/Vol] Negative Neg mg/dL [facility] CNPNon 08-15-2024 CNPN Telephone (OGFVWE) ----- LAINA DE LEÓN ([id number]) 1995 F CHT Date Time Provider Department 08/15/24 NURSE KEY CUTTER FRVW ANKIT OGFVWE During your visit today, we recorded the following information about you: Arabella Sanz, RN 08/15/2024 8:39 AM Signed 3rd risk assessment form submitted 08/15/24 Arabella Sanz RN Allergies As of Date: 08/15/2024 Noted Allergy Reaction CEFDINIR 04/11/2012 11 - Vomiting MORPHINE 05/15/2013 4 - Hives 12 - Shortness of Breath Comments: given medication at [facility] and reacted PEANUTS 12/18/2014 7 - Swelling Comments: redness Date Reviewed: 08/14/2024 Reviewed by: Donna Miguel MA - Fully Assessed Reason for Visit: [facility] [[id number]] Prescriptions as of 08/15/2024 - Insulin Gilbert, Disposable, (PEN NEEDLE) 32 gauge x 5/32 1 each as needed. - Blood-Glucose Sensor (FREESTYLE ELEANOR 3 PLUS SENSOR) ira Please change every 15 days - insulin NPH subcutaneous pen Take 32 units before breakfast and 16 units before dinner - flash glucose sensor (FREESTYLE ELEANOR 14 DAY SENSOR) kit Apply new sensor [...] Status:Closed by ARABELLA SANZ on 08/15/24 Normal [facility] CBC W Auto Differential pane l (Bld)on 08-14-2024 Basophils (Bld) [#/Vol] 0.04 10*3/uL Normal <0.11 [facility] Comment on above: Order Comment: Speci men Type: BLOOD SPECIMENOrdering Facility: [facility] Address: [address] [place] [address] Performed By: #### 5 7021-8 ####[facility] [id number] [place] [address] [place] Basophils/100 WBC (Bld) 0.4 % Normal [facility] Comment on above: Order Comment: Speci men Type: BLOOD SPECIMENOrdering Facility: [facility] Address: [address] [place] [address] Performed By: #### 5 7021-8 ####[facility] [id number] [place] [address] [place] Differential cell count method Nom (Bld) Auto Normal [facility] Comment on above: Order Comment: Speci men Type: BLOOD SPECIMENOrdering Facility: [facility] Address: [address] [place] [address] Performed By: #### 5 7021-8 ####[facility] KYLEМАРИНАAdonis [id number] [place] [address] [place] Eosinophils (Bld) [#/Vol] 0.11 10*3/uL Normal <0.46 [facility] Comment on above: Order Comment: Speci men Type: BLOOD SPECIMENOrdering Facility: [facility] Address: [address] [place] [address] Performed By: #### 5 7021-8 ####[facility] [id number] [place] [address] [place] Eosinophils/100 WBC (Bld) 1.1 % Normal [facility] Comment on above: Order Comment: Speci men Type: BLOOD SPECIMENOrdering Facility: [facility] Address: [address] [place] [address] Performed By: #### 5 7021-8 ####[facility]ITALNCLIAdonis [id number] [place] [address] [place] Erythrocyte distribution width (RBC) [Ratio] 18.4 % High 11.5-15.0 [facility] Comment on above: Order Comment: Speci men Type: BLOOD SPECIMENOrdering Facility: [facility] Address: [address] [place] [address] Performed By: #### 5 7021-8 ####[facility]IT[facility] [id number] [place] [address] [place] Hematocrit (Bld) [Volume fraction] 33.3 % Low 36.0-46.0 [facility] Comment on above: Order Comment: Speci men Type: BLOOD SPECIMENOrdering Facility: [facility] Address: [address] [place] [address] Performed By: #### 5 7021-8 ####[facility]ITALNCLIA [id number] [place] [address] [place] Hemoglobin (Bld) [Mass/Vol] 10.3 g/dL Low 11.5-15.5 [facility] Comment on above: Order Comment: Speci men Type: BLOOD SPECIMENOrdering Facility: [facility] Address: [address] [place] [address] Performed By: #### 5 7021-8 ####[facility]ITALNC[facility] [id number] [place] [address] [place] Immature granulocytes (Bld) [#/Vol] 0.05 10*3/uL Normal <0.10 [facility] Comment on above: Order Comment: Speci men Type: BLOOD SPECIMENOrdering Facility: [facility] Address: [address] [place] [address] Performed By: #### 5 7021-8 ####[facility] [id number] [place] [address] [place] Immature granulocytes/100 WBC (Bld) 0.5 % Normal [facility] Comment on above: Order Comment: Speci men Type: BLOOD SPECIMENOrdering Facility: [facility] Address: [address] [place] [address] Performed By: #### 5 7021-8 ####[facility] H[facility]ITALL[facility] [id number] [place] [address] [place] Lymphocytes (Bld) [#/Vol] 2.22 10*3/uL Normal 1.00-4.00 [facility] Comment on above: Order Comment: Speci men Type: BLOOD SPECIMENOrdering Facility: [facility] Address: [address] [place] [address] Performed By: #### 5 7021-8 ####[facility]ITALNCLI [id number] [place] [address] [place] Lymphocytes/100 WBC (Bld) 21.6 % Normal [facility] Comment on above: Order Comment: Speci men Type: BLOOD SPECIMENOrdering Facility: [facility] Address: [address] [place] [address] Performed By: #### 5 7021-8 ####[facility] [id number] [place] [address] [place] MCH (RBC) [Entitic mass] 25.4 pg Low 26.0-34.0 [facility] Comment on above: Order Comment: Speci men Type: BLOOD SPECIMENOrdering Facility: [facility] Address: [address] [place] [address] Performed By: #### 5 7021-8 ####[facility] [id number] [place] [address] [place] MCHC (RBC) [Mass/Vol] 30.9 g/dL Normal 30.5-36.0 [facility] Comment on above: Order Comment: Speci men Type: BLOOD SPECIMENOrdering Facility: [facility] Address: [address] [place] [address] Performed By: #### 5 7021-8 ####[facility]OSPITALNCМАРИНА [id number] [place] [address] [place] MCV (RBC) [Entitic vol] 82.0 fL Normal 80.0-100.0 [facility] Comment on above: Order Comment: Speci men Type: BLOOD SPECIMENOrdering Facility: [facility] Address: [address] [place] [address] Performed By: #### 5 7021-8 ####[facility]ITALNCLI [id number] [place] [address] [place] Monocytes (Bld) [#/Vol] 0.83 10*3/uL Normal <0.87 [facility] Comment on above: Order Comment: Speci men Type: BLOOD SPECIMENOrdering Facility: [facility] Address: [address] [place] [address] Performed By: #### 5 7021-8 ####[facility]ITALNCLIA [id number] [place] [address] [place] Monocytes/100 WBC (Bld) 8.1 % Normal [facility] Comment on above: Order Comment: Speci men Type: BLOOD SPECIMENOrdering Facility: [facility] Address: [address] [place] [address] Performed By: #### 5 7021-8 ####[facility] HOSPITALNCA [id number] [place] [address] [place] Neutrophils (Bld) [#/Vol] 7.05 10*3/uL Normal 1.45-7.50 [facility] Comment on above: Order Comment: Speci men Type: BLOOD SPECIMENOrdering Facility: [facility] Address: [address] [place] [address] Performed By: #### 5 7021-8 ####[facility] [id number] [place] [address] [place] Neutrophils/100 WBC (Bld) 68.3 % Normal [facility] Comment on above: Order Comment: Speci men Type: BLOOD SPECIMENOrdering Facility: [facility] Address: [address] [place] [address] Performed By: #### 5 7021-8 ####[facility]ITALL[facility] [id number] [place] [address] [place] Nucleated RBC (Bld) [#/Vol] 10*3/uL Normal <0.01 [facility] Comment on above: Order Comment: Speci men Type: BLOOD SPECIMENOrdering Facility: [facility] Address: [address] [place] [address] Performed By: #### 5 7021-8 ####[facility]ITALNCLIA [id number] [place] [address] [place] Nucleated RBC/100 WBC (Bld) [Ratio] 0.0 /100 WBC Normal [facility] Comment on above: Order Comment: Speci men Type: BLOOD SPECIMENOrdering Facility: [facility] Address: [address] [place] [address] Performed By: #### 5 7021-8 ####[facility]ITALL[facility] [id number] [place] [address] [place] Platelet mean volume (Bld) [Entitic vol] 9.3 fL Normal 9.0-12.7 [facility] Comment on above: Order Comment: Speci men Type: BLOOD SPECIMENOrdering Facility: [facility] Address: [address] [place], [place] [id number] Performed By: #### 5 7021-8 ####[facility] [id number] [place] [address] [place] Platelets (Bld) [#/Vol] 361 10*3/uL Normal 150-400 [facility] Comment on above: Order Comment: Speci men Type: BLOOD SPECIMENOrdering Facility: [facility] Address: [address] [place] [address] Performed By: #### 5 7021-8 ####[facility]IT[facility] [id number] [place] [address] [place] RBC (Bld) [#/Vol] 4.06 10*6/uL Normal 3.90-5.20 [facility] Comment on above: Order Comment: Speci men Type: BLOOD SPECIMENOrdering Facility: [facility] Address: [address] [place] [address] Performed By: #### 5 7021-8 ####[facility] [id number] [place] [address] [place] WBC (Bld) [#/Vol] 10.30 10*3/uL Normal 3.70-11.00 [facility] Comment on above: Order Comment: Speci men Type: BLOOD SPECIMENOrdering Facility: [facility] Address: [address] [place] [address] Performed By: #### 5 7021-8 ####[facility]ALL[facility] [id number] [place] [address] [place] Examination level ultrasound on 08-14-2024 [facility] Radiology Study observation (narrative) [facility] Ferritin SerPl-mCncon 2024 Ferritin [Mass/Vol] 15.0 ng/mL Normal 14.7-205.1 [facility] Comment on above: Order Comment: Speci men Type: BLOOD SPECIMENOrdering Facility: [facility] Address: [address] [place] [address] Performed By: #### 2 276-4, 07804-4 ####[facility] LABCLIA [id number] [place] [address] [place] Iron and Iron binding capaci ty panelon 08-14-2024 Iron [Mass/Vol] 32 ug/dL Low 41-186 [facility] Comment on above: Order Comment: Speci men Type: BLOOD SPECIMENOrdering Facility: [facility] Address: [address] [place] [address] Performed By: #### 2 276-4, 04231-7 ####[facility] LABCLIA [id number] [place] [id number] [place] Iron binding capacity [Mass/Vol] >532 High 232-386 [facility] Comment on above: Order Comment: Speci men Type: BLOOD SPECIMENOrdering Facility: [facility] Address: [address] [place] [address] Performed By: #### 2 276-4, 85734-1 ####[facility] LABCLIA [id number] [place] [id number] [place] Iron/TIBC [Molar ratio] <6.0 Low 15.0-57.0 [facility] Comment on above: Order Comment: Speci men Type: BLOOD SPECIMENOrdering Facility: [facility] Address: [address] [place] [address] Performed By: #### 2 276-4, 80072-3 ####[facility] LABIA [id number] [place] [id number] [place] Reagin and Treponema pallidu m IgG and IgM [Interp]on 08-14-2024 T. pallidum IgG+IgM IA Ql (S) Non-Reactive Normal Nonreactive [facility] Comment on above: Order Comment: Speci men Type: BLOOD SPECIMENOrdering Facility: [facility] Address: [address] [place] [address] Performed By: #### 7 3752-8 ####[facility] [id number] [place] [address] [place] Reagin+T pallidum IgG+IgM Se rPl-Impon 08-14-2024 Reagin and Treponema pallidum IgG and IgM [Interp] Cannot exclude recent Treponemal infection if specimen collected within 7-10 days after appearance of suspect lesions or 2-3 weeks after an exposure. Clinical correlation is required. Normal [facility] Comment on above: Order Comment: Speci men Type: BLOOD SPECIMENOrdering Facility: [facility] Address: [address] [place] [address] Performed By: #### 7 3752-8 ####[facility] [id number] [place] [id number] [place] TYPE + SCREEN PRENATALon ABO A Normal [facility] Comment on above: Order Comment: Speci men Type: BLOOD SPECIMENOrdering Facility: [facility] Address: [address] [place] [address] Performed By: #### T SPN ####[facility] MAIN BLOOD BANKCLIA [id number] [address] Rh Nom (Bld) Negative Normal [facility] Comment on above: Order Comment: Speci men Type: BLOOD SPECIMENOrdering Facility: [facility] Address: [address] [place] [address] Performed By: #### T SPN ####CC MAIN BLOOD BANKCLIA [id number] [address] OF [facility] TYPE AND SCREEN EXPIRATION 08/17/2024 23:59 Normal [facility] Comment on above: Order Comment: Speci men Type: BLOOD SPECIMENOrdering Facility: [facility] Address: [address] [place] [address] Performed By: #### T SPN ####CC MAIN BLOOD BANKCLIA [id number] [address] OF [place] URINE OB DIP B/Oon Glucose Ql (U) Negative Neg mg/dL [facility] Interpretation and review of laboratory results Normal [facility] Protein.monoclonal (U) [Mass/Vol] Negative Neg mg/dL [facility] CNOVon 07-25-2024 CNOV Office Visit (ENWSTR ) ----- LAINA DE LEÓN ([id number]) 1995 F T Date Time Provider Department 07/25/24 2:00 PM EDDI SNEED ENWSTR During your visit today, we recorded the following information about you: Pulse Blood pressure Weight 86/minute 111/77 77 kg Diana Munoz, KEYONNA 08/02/2024 1:11 PM Signed Eddi Sneed MD 08/02/2024 1:09 PM Signed [facility] Initial Clinic Visit Note Referred by: Inna Garcia MD (OBGYN) Chief complaint: Gestational Diabetes Mellitus My final recommendations will be communicated back to the requesting physician by way of shared medical record or letter via US mail. History of Present Illness: Laina De León is a 29 year old female patient presenting as a new patient to id for evaluation of Gestational diabetes mellitus She [...] before dinner started on initial visit with id, switched from basal-bolus (TID) regimen which resulted in multiple hypoglycemic episodes which are now better -Misses doses: None -Adverse medication effects: hypoglycemia -Rotating injection sites: yes -Previously Used DM Meds: She was on insulin during previous , treated by [facility] . Blood sugars -Self monitoring of blood sugar via CGM Summary of Personal CGM Findings: Type of CGM: [employer] G7 1) CGM recording is adequate for [...] Diagnosis Date Anemia complicating , first trimester ([facility]) 03/24/2019 Anemia during in second trimester ([facility]) 05/19/2023 Asthma as a child Childhood asthma without complication ([facility]) 01/03/2018 01/03/2018 Not currently using Albuterol inhaler. Continue to monitor. No Hemabate. SW Concussion 2010 COVID-19 virus infection 03/26/202103/2021 Diet controlled gestational diabetes mellitus (GDM) in third trimester ([facility]) 08/16/2019 Gestational hypertension ([facility]) History of gestational hypertension 03/16/2019 Hx of gestational harsh (more content not included)... Normal [facility] URINE OB DIP B/Oon 5 Glucose Ql (U) Negative Neg mg/dL [facility] Protein.monoclonal (U) [Mass/Vol] Negative Neg mg/dL [facility] CNPNon 2024 CNPN Telephone (OGFVWE) ----- LAINA DE LEÓN ([id number]) 1995 F CHT Date Time Provider Department 06/26/24 NURSE KEY CUTTER FRVW WEST OGFVWE During your visit today, we recorded the following information about you: Arabella Sanz, RN 2024 12:06 PM Signed 2nd risk assessment form submitted 06/26/24 Arabella Sanz RN Allergies As of Date: 2024 Noted Allergy Reaction CEFDINIR 04/11/2012 11 - Vomiting MORPHINE 05/15/2013 4 - Hives 12 - Shortness of Breath Comments: given medication at [facility] and reacted PEANUTS 12/18/2014 7 - Swelling Comments: redness Date Reviewed: 06/23/2024 Reviewed by: Paulina Salas, KEYONNA - Fully Assessed Reason for Visit: PRAF [4193] Prescriptions as of 2024 - Blood-Glucose Sensor (FREESTYLE ELEANOR 3 PLUS SENSOR) ira Please change every 15 days - insulin NPH subcutaneous pen Take 32 units before breakfast and 16 units before dinner - flash glucose sensor (FREESTYLE ELEANOR 14 DAY SENSOR) kit Apply new sensor every 14 days to upper arm. Use to check blood sugar at least 4 times daily. - blood sugar diagnostic (FREESTYLE PRECISION CARA STRIPS) test strip Use to check blood sugar once daily as needed. - Insulin Gilbert, Disposable, (PEN NEEDLE) 32 gauge x 5/32 [...] Encounter Status:Closed by ARABELLA SANZ [facility] LAINA DE LEÓN ([id number]) 1995 F T Date Time Provider Department 06/26/24 EDDI SNEED During your visit today, we [...] Shortness of Breath Comments: given medication at [facility] and reacted PEANUTS 12/18/2014 7 - Swelling Comments: redness Date Reviewed: 06/23/2024 Reviewed by: Paulina Salas RN - Fully Assessed Prescriptions as of 06/27/2024 - Blood-Glucose Sensor (FREESTYLE ELEANOR 3 PLUS SENSOR) ira Please change every 15 days - insulin NPH subcutaneous pen Take 32 units before breakfast and 16 units before dinner - flash glucose sensor (FREESTYLE ELEANOR 14 DAY SENSOR) kit Apply new sensor every 14 days to upper arm. Use to check blood sugar at least 4 times daily. - blood sugar diagnostic (FREESTYLE PRECISION CARA STRIPS) test strip Use to check blood sugar once daily as needed. - Insulin Gilbert, Disposable, (PEN NEEDLE) 32 gauge x 5/32 [...] Status:Closed by INNA DOWELL on 06/27/24 Normal [facility] Urine Cultureon 06-25-2024 URC Below infection leve l. Mixed Gram Positive Organisms [place] Count <1000 MIXC Mixed contaminants. Submit a new specimen if indicated. Normal [facility] Comment on above: Performed By: #### B [id number], BTS, L100.0100 #### [facility] Laboratory [facility] [place], [address] Bilirubin Test strip Ql (U)O rdered By: Inna Garcia on 06-23-2024 Bilirubin Ql (U) Negative Negative [facility] William 06-23-2024 [facility] Telephone (EMQ) ----- AMANDA DE LEÓNAdonis [place] ([id number]) 1995 F CHT Date Time Provider Department 06/23/24 EDDI SNEED During your visit today, we recorded the following information about you: Anali Bustamante 06/23/2024 2:57 PM Signed Initiated PA for insulin NPH human (HUMULIN N NPH INSULIN KWIKPEN) 100 unit/mL through Covermymeds Questions Completed/attached notes Waiting for determination Anali Marshall Prior [employer] Endocrinology [employer] Met[employer] [place] Anali Bustamante 06/23/2024 3:25 PM Signed insulin NPH human (HUMULIN N NPH INSULIN KWIKPEN) 100 unit/mL has been approved Notified patient through mychart Anali Marshall Prior Mortgage Loan [employer] Endocrinology [employer] Metabolism [place] Allergies As of Date: 06/23/2024 Noted Allergy Reaction CEFDINIR 04/11/2012 11 - Vomiting MORPHINE 05/15/2013 4 - Hives 12 - Shortness of Breath Comments: given medication at [facility] and reacted PEANUTS 12/18/2014 7 - Swelling Comments: redness Date Reviewed: 06/23/2024 Reviewed by: Paulina Salas, RN - Fully Assessed Reason for Visit: Insurance Authorization [[id number]] Cmt: (HUMULIN N NPH INSULIN KWIKPEN) 100 unit/mL - Insurance Approval Prescriptions as of 06/23/2024 - Blood-Glucose Sensor (FREESTYLE ELEANOR 3 PLUS SENSOR) ira Please change every 15 days - insulin NPH subcutaneous pen Take 32 units before breakfast and 16 units before dinner - flash glucose sensor (FREESTYLE ELEANOR 14 DAY SENSOR) kit Apply new sensor every 14 days to upper arm. Use to check blood sugar at least 4 times daily. - blood sugar diagnostic (FREESTYLE PRECISION CARA STRIPS) test strip Use to check blood sugar once daily as needed. - Insulin Gilbert, Disposable, (PEN NEEDLE) 32 gauge x 5/32 [...] (HCC) [Z3A.19] 06/17/2024 06/23/2024 Encounter Status:Closed by ANALI BUSTAMANTE on 06/23/24 Normal [facility] Examination level ultrasound on 06-23-2024 Indication Detailed [...] 14 oz EFW by: Hadlock (HC-AC-FL) Extended Case Loader Operator 6.1 mm CM 4.6 mm 32% Nicolaides [...] normal LVOT view: normal 3-vessel view: normal 4-vzyuvr-rexuauo view: normal Heart / Thorax Situs: situs [...] visualized Lt ovary: Not visualized Performed By: Mariah Barraza RDMS, RVT Read By: Kyung Tom M.D. MATERNAL MEDICINE [facility] Radiology Study observation (narrative) [facility] Glucose Ql (U)Ordered By: Jacoby Garcia on 06-23-2024 Glucose (U) [Mass/Vol] 50 mg/dL High Normal [facility] Ketones Test strip Ql (U)Ord ered By: Inna Garcia on 06-23-2024 Ketones Ql (U) Negative Negative [facility] Nitrite Test strip Ql (U)Ord ered By: Inna Garcia on 06-23-2024 Nitrite Ql (U) Negative Negative [facility] OB Triage Physician Noteon 0 06-23-2024 OB Triage Physician Note [facility] Medical Records Department [address] [place] [address] OB Triage Physician Note 06/23/24 2303 MR#: [id number] Acct: [id number] Name: LAINA DE LEÓN Rep #: [id number] : 1995 28 From: Inna Garcia MD PCP: SHAYY Alejandro Status:DEP CLI Y Location: [facility] - General General Date of Admission: 06/23/24 Chief Complaint: cramping and back pain HPI Narrative LAINA DE LEÓN, is a 28 F who presents with cramping and lower back pain. NO bleeding or loss of fluid Maternal Data Information Final BELEM: 11/05/24 Gestational age: 20+5 [facility] Medical History (Updated 06/26/24 @ 05:55 by [...] Inna Garcia MD; SHAYY Alejandro Signed Normal [facility] Protein Test strip Ql (U)Ord ered By: Inna Garcia on 06-23-2024 Protein Ql (U) 15 mg/dl High Negative [facility] Urinalysis, Routine (Dipstic k)on 06-23-2024 BILIRUBIN URINE Negative Normal Negative [facility] Comment on above: Order Comment: Labor Performed By: #### B [id number], BTS, L100.0100 #### [facility] Laboratory [address] [place], [address] Clarity (U) Sl. Cloudy Normal Clear [facility] Comment on above: Order Comment: Labor Performed By: #### B [id number], BTS, L100.0100 #### [facility] Laboratory [address] [place], [address] Color (U) Yellow Normal Yellow [facility] Comment on above: Order Comment: Labor Performed By: #### B [id number], BTS, L100.0100 #### [facility] Laboratory [address] [place], [address] GLUCOSE, UR 50 mg/dl Abnormal Normal [facility] Comment on above: Order Comment: Labor Performed By: #### B [id number], BTS, L100.0100 #### [facility] Laboratory [address] [place], [address] KETONE UR Negative Normal Negative [facility] Comment on above: Order Comment: Labor Performed By: #### B [id number], BTS, L100.0100 #### [facility] Laboratory [address] [place], [address] LEUK ESTERASE 25 /ul Abnormal Negative [facility] Comment on above: Order Comment: Labor Performed By: #### B [id number], BTS, L100.0100 #### [facility] Laboratory [address] [place], [address] Nitrite Ql (U) Negative Normal Negative [facility] Comment on above: Order Comment: Labor Performed By: #### B [id number], BTS, L100.0100 #### [facility] Laboratory [address] [place], [address] OCCULT BLOOD-UR Negative Normal Negative [facility] Comment on above: Order Comment: Labor Performed By: #### B [id number], BTS, L100.0100 #### [facility] Laboratory [address] [place], [address] pH UR 6.0 Normal 5.0 - 8.0 [facility] Comment on above: Order Comment: Labor Performed By: #### B [id number], BTS, L100.0100 #### [facility] Laboratory [address] [place], [address] PROT DIPSTX 15 mg/dl Abnormal Negative [facility] Comment on above: Order Comment: Labor Performed By: #### B [id number], BTS, L100.0100 #### [facility] Laboratory [address] [place], [address] SP.GR. DIPSTX 1.020 Normal 1.002-1.030 [facility] Comment on above: Order Comment: Labor Performed By: #### B [id number], BTS, L100.0100 #### [facility] Laboratory [address] [place], [address] UROBILI Normal Normal Normal [facility] Comment on above: Order Comment: Labor Performed By: #### B [id number], BTS, L100.0100 #### [facility] Laboratory [address] [place], [address] Urine blood detectionOrdered By: Inna Garcia on 06-23-2024 Urine Occult Blood Negative Negative [facility] Urine clarityOrdered By: Vianey Garcia on 06-23-2024 Clarity (U) Sl. Cloudy Clear [facility] Urine color determinationOrd ered By: Inna Garcia on 06-23-2024 Color (U) Yellow Yellow [facility] Urine cultureOrdered By: Vianey Garcia on 06-23-2024 Bacteria identified Cx Nom (U) Positive Abnormal [facility] Urine glucose detectionOrder ed By: Inna Garcia on 06-23-2024 Glucose Ql (U) 50 mg/dl High Normal [facility] Urine leukocyte esterase det ection by dipstickOrdered By: Inna Garcia on 06-23-2024 Leukocyte esterase Test strip Ql (U) 25 /ul High Negative [facility] Urine pHOrdered By: Inna Garcia on 06-23-2024 pH (U) 6.0 [pH] 5.0 - 8.0 [facility] Urine specific gravity measu rementOrdered By: Inna Garcia on 06-23-2024 Specific gravity (U) [Rel density] 1.020 1.002-1.030 [facility] Urine urobilinogen measureme ntOrdered By: Inna Garcia on 06-23-2024 Urobilinogen Ql (U) Normal mg/dl Normal [facility] Urobilinogen Ql (U)Ordered B y: Inna Garcia on 06-23-2024 Urine Urobilinogen Normal mg/dl Normal [facility] CNOVon 06-22-2024 CNOV Office Visit (ENWSTR ) ----- LAINA DE LEÓN ([id number]) 1995 F [facility] Date Time Provider Department 06/22/24 3:00 PM [...] via US mail. History of Present Illness: Laina De León is a 28 year old [...] Diagnosis Date Anemia complicating , first trimester ([facility]) 03/24/2019 Anemia during in second trimester ([facility]) 05/19/2023 Asthma as a child Childhood asthma without complication ([facility]) 01/03/2018 01/03/2018 Not currently using Albuterol inhaler. Continue to monitor. No Hemabate. SW Concussion 2010 COVID-19 virus infection 03/26/202103/2021 Diet controlled gestational diabetes mellitus (GDM) in third trimester (HCC) 08/16/2019 Gestational hypertension (HCC) History of gestational hypertension 03/16/2019 Hx of gestational diabetes mellitus, not currently 05/16/2020 Insulin controlled gestational diabetes mellitus (GDM) in third trimester (HCC) 05/18 (more content not included)... Normal [facility] CNPNon 06-22-2024 CNPN Telephone (ENWSTR) ----- LAINA DE LEÓN ([id number]) 1995 F [facility] Date Time Provider Department 06/22/24 EDDI SNEED ENWSTR During your visit today, we recorded the following information about you: Inna Dowell MA 06/22/2024 3:48 PM Signed Prior Auth requested for Humulin kwikpen 100u/ml [place] [id number] YINKA Juárez Lakieta D 06/23/2024 2:58 PM Signed Anali Kimball [employer] Endocrinology AND Metabolism [place] Allergies As of Date: 06/22/2024 Noted Allergy Reaction CEFDINIR 04/11/2012 11 - Vomiting MORPHINE 05/15/2013 4 - Hives 12 - Shortness of Breath Comments: given medication at [facility] and reacted PEANUTS 12/18/2014 7 - Swelling Comments: redness Date Reviewed: 06/22/2024 Reviewed by: Inna Dowell MA - Fully Assessed 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 Use to check blood sugar at least 4 times daily. - blood sugar diagnostic (FREESTYLE PRECISION CARA STRIPS) test strip Use to check blood sugar once daily as needed. - Insulin Gilbert, Disposable, (PEN NEEDLE) 32 gauge x 5/32 [...] of (HCC) [Z3A.19] 06/17/2024 Encounter Status:Closed by ANALI BUSTAMANTE on 06/23/24 [facility] 06-21-2024 CNNURSE Nurse Visit (ENDIMT) ----- LAINA DE LEÓN ([id number]) 1995 F CHT Date Time Provider Department 06/21/24 11:00 AM SAMANTHA ELIAS During your visit today, we recorded the following information about you: Samantha Elias RN 06/21/2024 11:23 AM Signed DIABETES CARE AND EDUCATION VISIT Location: [place] Type of visit: In person individual PATIENT'S [...] record. SIGNATURE: Samantha Elias RN PATIENT NAME: Laina De León DATE: June 21, 2024 TIME: 10:59 AM Inna Dowell MA 06/21/2024 11:23 AM Signed Referring Provider: YOVANI MORA [[id number]] Allergies As of Date: 06/21/2024 Noted Allergy Reaction CEFDINIR 04/11/2012 11 - Vomiting MORPHINE 05/15/2013 4 - Hives 12 - Shortness of Breath Comments: given medication at [facility] and reacted PEANUTS 12/18/2014 7 - Swelling Comments: redness Date Reviewed: 06/21/2024 Reviewed by: Eva Parker RN - Fully Assessed Primary Visit Diagnosis:Hx of gestational diabetes in prior , currently ([facility]) [O09.299, Z86.32] Prescriptions as of 06/21/2024 - insulin glargine (LANTUS SOLOSTAR U-100 INSULIN) 100 unit/mL (3 mL) Inject 15 Units subcutaneously in the morning and before bedtime - flash glucose sensor (FREESTYLE ELEANOR 14 DAY SENSOR) kit Apply new sensor every 14 days to upper arm. Use to check blood sugar at least 4 times daily. - blood sugar diagnostic (FREESTYLE PRECISION CARA STRIPS) test strip Use to check blood sugar once daily as needed. - insulin lispro (HUMALOG KWIKPEN INSULIN) 100 unit/mL Inject 8 Units subcutaneously three times a day before meals. - Insulin Gilbert, Disposable, (PEN NEEDLE) 32 gauge x 5/32 [...] (HC*08/20/2022 08/ (more content not included)... Normal [facility] CNPNon 06-21-2024 CNPN Telephone (OBGYWM) ----- LAINA DE LEÓN ([id number]) 1995 F CHT Date Time Provider Department 06/21/24 KALPANA LAGUERRE OBCHI During your visit today, we recorded the following information about you: Laina Cardoza, KEYONNA 06/21/2024 9:37 AM Signed 20w3d DX gestational DM-sent to [facility] on Wednesday. Discharged home on Wednesday. Pt was started on Lispro AND Lantus insulin and dosage/ Has Eleanor. Ever since leaving on Wednesday has been [...] waking her up at night. Currently in [facility] getting an iron infusion-appt at 930 (60 minute appt). Advised Pt that headaches can occur with fluctuations in blood sugars and that she should be seen to discuss with provider what dosage would be best for her. Please advise on when Pt should be seen. KEYONNA Hendricks Jennifer, MD 06/21/2024 10:01 AM Signed Laina Sherman RN 06/21/2024 10:47 AM Signed Spoke to Endocrinology- Dr. Torres is able to see patient tomorrow at 3pm. Balaji-bale tie machine operator-able to see Pt today at 11am to assist with linking Pt's eleanor to [employer] system. Pt is agreeable to seeing Endo [...] Please file pended orders. PSS scheduling appts. KEYONNA Hendricks Jennifer, MD 06/21/2024 10:59 AM Signed Thank you. Orders signed Allergies As of Date: 06/21/2024 Noted Allergy Reaction CEFDINIR 04/11/2012 11 - Vomiting MORPHINE 05/15/2013 4 - Hives 12 - Shortness of Breath Comments: given medication at [facility] and reacted PEANUTS 12/18/2014 7 - Swelling Comments: redness Date Reviewed: 06/21/2024 Reviewed by: Eva Parker RN - Fully Assessed Primary Visit Diagnosis:Insulin controlled gestational diabetes mellitus (GDM) in second trimester (HCC) [O24.414] Other Visit Diagnosis:20 weeks gestation of ([facility]) [Z3A.20] Order(s):CONSULT TO ENDOCRINOLOGY [9007] Order #: [id number]: 1 FUTURE ENDOCRINOLOGY DIETITIAN VISIT (MNT) [9336512] Order #: [id number]: 4 FUTURE Prescriptions as of 06/21/2024 - insulin glargine (LANTUS SOLOSTAR U-100 INSULIN) 100 unit/mL (3 mL) Inject 15 Units subcutaneously in the morning and before bedtime - flash glucose sensor (FREESTYLE ELEANOR 14 DAY SENSOR) kit Apply new sensor every 14 days to upper arm. Use to check blood sugar at least 4 times daily. - blood sugar diagnostic (FREESTYLE PRECISION CARA STRIPS) test strip Use to check blood sugar once daily as needed. - insulin lispro (HUMALOG KWIKPEN INSULIN) 100 unit/mL Inject 8 Units subcutaneously three times a day before meals. - Insulin Gilbert, Disposable, (PEN NEEDLE) 32 gauge x 5/32 [...] [B27.90] 05/17/2013 06/21/2018 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[facility]) [Q07.01] 07/10/2013 Bleeding in early [O20.9] 12/30/2017 06/21/2018 Patient request for diagnostic testing [Z01.89] 12/30/2017 08/15/2019 Childhood asthma without complication [J45.909] 01/03/2018 10/31/2019 Rh negative state in antepartum period (HCC) [O*01/17/2018 Abnormal glucose measurement [R73.09] 05/31/2018 08/05/2018 Short interval between pregnancies affecting pr*06/15/2018 10/31/2019 Shortness of breath [R06.02] 06/15/2018 07/05/2018 Polyhydramnios in third trimester [O40.3XX0] (more content not included)... Normal [facility] CNCOon 06-17-2024 CNCO Letter Text Normal [facility] CNDSon 06-17-2024 CNDS HNO ID: [id number] Author: CRISTY SWENSON DO Service: Obstetrics Author Type: Resident Type: Discharge Summary Filed: 06/17/2024 16:15 Note Text: ----- Attestation signed by Donna Worthington MD at 06/17/2024 7:52 PM (Updated) [facility] STAFF PHYSICIAN NOTE OF PERSONAL INVOLVEMENT IN [...] 06/16/2024 DISCHARGE DISPOSITION: Home with Self Care Laina is a 28 year old who was directly admitted to the [facility] service from [place] on 06/16/24 at 19w5d for glycemic control in the setting of newly diagnosed GDMA. Upon arrival, patient's blood glucose was found to be 224. She was started on Lantus 15/15, log 10//10 and sliding scale insulin with meals. Her [...] blood sugar once daily as needed. FREESTYLE ELEANOR 14 DAY READER Generic drug: flash glucose scanning reader Use to check blood sugar at least 4 times daily. FREESTYLE ELEANOR 14 DAY SENSOR Kit Generic drug: flash [...] Medications These medications were sent to e- [facility]/pharmacy #[id number] [place] [address] [address] [facility] - [phone] [facility] [address] [address] [facility] [address] blood sugar diagnostic test strip FREESTYLE ELEANOR 14 DAY READER FREESTYLE ELEANOR 14 DAY SENSOR Kit insulin lispro 100 unit/mL LANTUS SOLOSTAR U-100 INSULIN 100 unit/mL (3 mL) FINAL DIAGNOSIS: GMDA2 Plan of care discussed with Provider, RN, Patient SIGNATURE: Cristy Swenson DO PATIENT NAME: Laina De León DATE: June 17, 2024 TIME: 4:14 PM Normal [facility] PT EDon 06-17-2024 PT ED HNO ID: [id number] Author: ARTHUR SALGADO DTR Service: Nutrition Therapy Author Type: Marketing Liaison Type: Patient Education Filed: 06/19/2024 16:34 Note [...] $ Routine Care : 1-15 minutes SIGNATURE: Arthur Salgado DTR PATIENT NAME: Laina De León DATE: June 19, 2024 TIME: 4:33 PM PAGER: Normal [facility] CBC W Auto Differential pane l (Bld)on 06-16-2024 Basophils (Bld) [#/Vol] 0.03 10*3/uL Normal <0.11 [facility] Comment on above: Order Comment: Speci men Type: BLOOD SPECIMEN Ordering Facility: [facility] Address: [address] [place] [address] Performed By: #### 5 7021-8 #### [facility] CLIA [id number] [address] Basophils/100 WBC (Bld) 0.3 % Normal [facility] Comment on above: Order Comment: Speci men Type: BLOOD SPECIMEN Ordering Facility: [facility] Address: [address] [place] [address] Performed By: #### 5 7021-8 #### [facility] CLIA [id number] [address] Differential cell count method Nom (Bld) Auto Normal [facility] Comment on above: Order Comment: Speci men Type: BLOOD SPECIMEN Ordering Facility: [facility] Address: [address] [place] [address] Performed By: #### 5 7021-8 #### [facility] CLIA [id number] [address] [place] Eosinophils (Bld) [#/Vol] 0.15 10*3/uL Normal <0.46 [facility] Comment on above: Order Comment: Speci men Type: BLOOD SPECIMEN Ordering Facility: [facility] Address: [address] [place] [address] Performed By: #### 5 7021-8 #### [facility] CLIA [id number] [address] [place] Eosinophils/100 WBC (Bld) 1.3 % Normal [facility] Comment on above: Order Comment: Speci men Type: BLOOD SPECIMEN Ordering Facility: [facility] Address: [facility] [place] [address] Performed By: #### 5 7021-8 #### [facility] CLIA [id number] [address] [place] Erythrocyte distribution width (RBC) [Ratio] 15.4 % High 11.5-15.0 [facility] Comment on above: Order Comment: Speci men Type: BLOOD SPECIMEN Ordering Facility: [facility] Address: [address] [place] [address] Performed By: #### 5 7021-8 #### [facility] CLIA [id number] [address] [place] Hematocrit (Bld) [Volume fraction] 31.0 % Low 36.0-46.0 [facility] Comment on above: Order Comment: Speci men Type: BLOOD SPECIMEN Ordering Facility: [facility] Address: [address] [place] [address] Performed By: #### 5 7021-8 #### [facility] CLIA [id number] [address] [place] Hemoglobin (Bld) [Mass/Vol] 9.4 g/dL Low 11.5-15.5 [facility] Comment on above: Order Comment: Speci men Type: BLOOD SPECIMEN Ordering Facility: [facility] Address: [address] [place] [address] Performed By: #### 5 7021-8 #### [facility] CLIA [id number] [address] [place] Immature granulocytes (Bld) [#/Vol] 0.04 10*3/uL Normal <0.10 [facility] Comment on above: Order Comment: Speci men Type: BLOOD SPECIMEN Ordering Facility: [facility] Address: [address] [place] [address] Performed By: #### 5 7021-8 #### [facility] CLIA [id number] [address] [place] Immature granulocytes/100 WBC (Bld) 0.4 % Normal [facility] Comment on above: Order Comment: Speci men Type: BLOOD SPECIMEN Ordering Facility: [facility] Address: [address] [place] [address] Performed By: #### 5 7021-8 #### [facility] CLIA [id number] [address] [place] [address] [place] Lymphocytes (Bld) [#/Vol] 2.31 10*3/uL Normal 1.00-4.00 [facility] Comment on above: Order Comment: Speci men Type: BLOOD SPECIMEN Ordering Facility: [facility] Address: [address] [place] [address] Performed By: #### 5 7021-8 #### [facility] CLIA [id number] [address] Lymphocytes/100 WBC (Bld) 20.6 % Normal [facility] Comment on above: Order Comment: Speci men Type: BLOOD SPECIMEN Ordering Facility: [facility] Address: [address] [place] [address] Performed By: #### 5 7021-8 #### [facility] CLIA [id number] [address] STATES OF [facility] MCH (RBC) [Entitic mass] 23.7 pg Low 26.0-34.0 [facility] Comment on above: Order Comment: Speci men Type: BLOOD SPECIMEN Ordering Facility: [facility] Address: [address] [place] [address] Performed By: #### 5 7021-8 #### [facility] CLIA [id number] [address] MCHC (RBC) [Mass/Vol] 30.3 g/dL Low 30.5-36.0 [facility] Comment on above: Order Comment: Speci men Type: BLOOD SPECIMEN Ordering Facility: [facility] Address: [address] [place] [address] Performed By: #### 5 7021-8 #### [facility] CLIA [id number] [address] MCV (RBC) [Entitic vol] 78.3 fL Low 80.0-100.0 [facility] Comment on above: Order Comment: Speci men Type: BLOOD SPECIMEN Ordering Facility: [facility] Address: [address] [place] [address] Performed By: #### 5 7021-8 #### [facility] CLIA [id number] [address] [place] Monocytes (Bld) [#/Vol] 1.09 10*3/uL High <0.87 [facility] Comment on above: Order Comment: Speci men Type: BLOOD SPECIMEN Ordering Facility: [facility] Address: [address] [place] [address] Performed By: #### 5 7021-8 #### [facility] CLIA [id number] [address] [place] Monocytes/100 WBC (Bld) 9.7 % Normal [facility] Comment on above: Order Comment: Speci men Type: BLOOD SPECIMEN Ordering Facility: [facility] Address: [address] [place] [address] Performed By: #### 5 7021-8 #### [facility] CLIA [id number] [address] [place] Neutrophils (Bld) [#/Vol] 7.60 10*3/uL High 1.45-7.50 [facility] Comment on above: Order Comment: Speci men Type: BLOOD SPECIMEN Ordering Facility: [facility] Address: [address] [place] [address] Performed By: #### 5 7021-8 #### [facility] CLIA [id number] [address] Neutrophils/100 WBC (Bld) 67.7 % Normal [facility] Comment on above: Order Comment: Speci men Type: BLOOD SPECIMEN Ordering Facility: [facility] Address: [address] [place] [address] Performed By: #### 5 7021-8 #### [facility] CLIA [id number] [address] [place] Nucleated RBC (Bld) [#/Vol] 10*3/uL Normal <0.01 [facility] Comment on above: Order Comment: Speci men Type: BLOOD SPECIMEN Ordering Facility: [facility] Address: [address] [place] [address] Performed By: #### 5 7021-8 #### [facility] CLIA [id number] [address] [place] Nucleated RBC/100 WBC (Bld) [Ratio] 0.0 /100 WBC Normal [facility] Comment on above: Order Comment: Speci men Type: BLOOD SPECIMEN Ordering Facility: [facility] Address: [address] [place] [address] Performed By: #### 5 7021-8 #### [facility] CLIA [id number] [address] [place] Platelet mean volume (Bld) [Entitic vol] 9.7 fL Normal 9.0-12.7 [facility] Comment on above: Order Comment: Speci men Type: BLOOD SPECIMEN Ordering Facility: [facility] Address: [address] [place] [address] Performed By: #### 5 7021-8 #### [facility] CLIA [id number] [address] [place] Platelets (Bld) [#/Vol] 385 10*3/uL Normal 150-400 [facility] Comment on above: Order Comment: Speci men Type: BLOOD SPECIMEN Ordering Facility: [facility] Address: [address] [place] [address] Performed By: #### 5 7021-8 #### [facility] CLIA [id number] [address] [place] RBC (Bld) [#/Vol] 3.96 10*6/uL Normal 3.90-5.20 [facility] Comment on above: Order Comment: Speci men Type: BLOOD SPECIMEN Ordering Facility: [facility] Address: [address] [place] [address] Performed By: #### 5 7021-8 #### [facility] CLIA [id number] [address] [place] WBC (Bld) [#/Vol] 11.22 10*3/uL High 3.70-11.00 [facility] Comment on above: Order Comment: Speci men Type: BLOOD SPECIMEN Ordering Facility: [facility] Address: [address] [place] [address] Performed By: #### 5 7021-8 #### [facility] CLIA [id number] [address] OF [facility] Comprehensive metabolic 2000 panelon 06-16-2024 Albumin [Mass/Vol] 3.5 g/dL Low 3.9-4.9 [facility] Comment on above: Order Comment: Speci men Type: BLOOD SPECIMEN Ordering Facility: [facility] Address: [address] [place] [address] Performed By: #### 2 4323-8 #### [facility] CLIA [id number] [address] OF [facility] ALP [Catalytic activity/Vol] 95 U/L Normal 34-123 [facility] Comment on above: Order Comment: Speci men Type: BLOOD SPECIMEN Ordering Facility: [facility] Address: [address] [place] [address] Performed By: #### 2 4323-8 #### [facility] CLIA [id number] [address] ALT With P-5'-P [Catalytic activity/Vol] 6 U/L Low 7-38 [facility] Comment on above: Order Comment: Speci men Type: BLOOD SPECIMEN Ordering Facility: [facility] Address: [address] [place] [address] Performed By: #### 2 4323-8 #### [facility] CLIA [id number] [address] Anion gap [Moles/Vol] 10 mmol/L Normal 8-15 [facility] Comment on above: Order Comment: Speci men Type: BLOOD SPECIMEN Ordering Facility: [facility] Address: [address] [place] [address] Performed By: #### 2 4323-8 #### [facility] CLIA [id number] [address] [place] [address] [place] AST With P-5'-P [Catalytic activity/Vol] 15 U/L Normal 13-35 [facility] Comment on above: Order Comment: Speci men Type: BLOOD SPECIMEN Ordering Facility: [facility] Address: [address] [place] [address] Performed By: #### 2 4323-8 #### [facility] CLIA [id number] 1 [place] [address] [place] Bilirubin [Mass/Vol] mg/dL Low 0.2-1.3 [facility] Comment on above: Order Comment: Speci men Type: BLOOD SPECIMEN Ordering Facility: [facility] Address: [address] [place] [address] Performed By: #### 2 4323-8 #### [facility] CLIA [id number] 1 [place] [address] [place] Calcium [Mass/Vol] 8.2 mg/dL Low 8.5-10.2 [facility] Comment on above: Order Comment: Speci men Type: BLOOD SPECIMEN Ordering Facility: [facility] Address: [address] [place] [address] Performed By: #### 2 4323-8 #### [facility] CLIA [id number] 1 [place] [address] [place] Chloride [Moles/Vol] 104 mmol/L Normal 98-107 [facility] Comment on above: Order Comment: Speci men Type: BLOOD SPECIMEN Ordering Facility: [facility] Address: [address] [place] [address] Performed By: #### 2 4323-8 #### [facility] CLIA [id number] 1 [place] [address] [place] CO2 [Moles/Vol] 22 mmol/L Normal 22-30 [facility] Comment on above: Order Comment: Speci men Type: BLOOD SPECIMEN Ordering Facility: [facility] Address: [address] [place] [address] Performed By: #### 2 4323-8 #### [facility] CLIA [id number] [address] STATES OF [facility] Creatinine [Mass/Vol] 0.45 mg/dL Low 0.58-0.96 [facility] Comment on above: Order Comment: Shantel espinal Type: BLOOD SPECIMEN Ordering Facility: [facility] Address: [address] [place] [address] Performed By: #### 2 4323-8 #### [facility] CLIA [id number] [address] Creatinine and Glomerular filtration rate.predicted panel (S/P/Bld) 135 mL/min/1.73m??? Normal >=60 [facility] Comment on above: Order Comment: Shantel espinal Type: BLOOD SPECIMEN Ordering Facility: [facility] Address: [address] [place] [address] Result Comment: Rekha mated Glomerular Filtration Rate [...] GFR. Performed By: #### 2 4323-8 #### [facility] CLIA [id number] [address] [place] [address] [place] Glucose [Mass/Vol] 56 mg/dL Low 74-99 [facility] Comment on above: Order Comment: Shantel espinal Type: BLOOD SPECIMEN Ordering Facility: [facility] Address: [address] [place] [address] Result Comment: The [place] Diabetes Association (ADA) provides guidance for cutoff [...] Standards of Medical Care in Diabetes 2016, [place] [employer]. Diabetes Care. 2016.39(Suppl 1). Performed By: #### 2 4323-8 #### [facility] CLIA [id number] [address] Potassium [Moles/Vol] 4.0 mmol/L Normal 3.7-5.1 [facility] Comment on above: Order Comment: Speci men Type: BLOOD SPECIMEN Ordering Facility: [facility] Address: [address] [place] [address] Performed By: #### 2 4323-8 #### [facility] CLIA [id number] [address] Protein [Mass/Vol] 6.7 g/dL Normal 6.3-8.0 [facility] Comment on above: Order Comment: Speci men Type: BLOOD SPECIMEN Ordering Facility: [facility] Address: [address] [place] [address] Performed By: #### 2 4323-8 #### [facility] CLIA [id number] [address] Sodium [Moles/Vol] 136 mmol/L Normal 136-144 [facility] Comment on above: Order Comment: Speci men Type: BLOOD SPECIMEN Ordering Facility: [facility] Address: [address] [place] [address] Performed By: #### 2 4323-8 #### [facility] CLIA [id number] [address] Urea nitrogen [Mass/Vol] 10 mg/dL Normal 7-21 [facility] Comment on above: Order Comment: Speci men Type: BLOOD SPECIMEN Ordering Facility: [facility] Address: [address] [place] [address] Performed By: #### 2 4323-8 #### [facility] CLIA [id number] [address] [place] HISTORY PHYSICALon 5 HISTORY PHYSICAL HNO ID: [id number] Author: JOCELYNN MACKENZIE MD Service: Obstetrics Author [...] is here as a direct admit from [place] for glycemic control in the setting of [...] Continue to plan for testing. Cristy Matthew APRN.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 July 05, 2018 D/w her risks. NSTs weekly. Kick counts. PTL precuations. F/u weekly. Yovani Mora MD Spondylolysis of lumbar region 06/25/2011 [...] orally disintegr (more content not included)... Normal [facility] HbA1c (Bld)on 06-16-2024 Average glucose Estimated from glycated hemoglobin (Bld) [Mass/Vol] 105 mg/dL Normal [facility] Comment on above: Order Comment: Shantel espinal Type: BLOOD SPECIMEN Ordering Facility: [facility] Address: [address] [place] [address] Result Comment: eAG: (Estimated average glucose) is a calculated value from HgbA1c and is human resources hr representative of the average blood glucose level in the last 2-3 month period. Performed By: #### 5 5454-3 #### [facility] CLIA [id number] [address] [place], [place] [address] [address] [place] HbA1c (Bld) [Mass fraction] 5.3 % Normal 4.3-5.6 [facility] Comment on above: Order Comment: Shantel espinal Type: BLOOD SPECIMEN Ordering Facility: [facility] Address: [address] [place] [address] Result Comment: Amer [place] Diabetes Association guidelines indicate that patients with HgbA1c in the range 5.7-6.4% are at increased risk for development of diabetes, and intervention by lifestyle modification may be beneficial. HgbA1c greater or equal to 6.5% is considered diagnostic of diabetes. Performed By: #### 5 5454-3 #### [facility] CLIA [id number] [address] [place] [address] TYPE + SCREEN PRENATALon ABO A Normal [facility] Comment on above: Order Comment: Speci men Type: BLOOD SPECIMEN Ordering Facility: [facility] Address: [address] [place] [address] Performed By: #### T SPN #### [facility] CLIA [id number] [address] Rh Nom (Bld) Negative Normal [facility] Comment on above: Order Comment: Speci men Type: BLOOD SPECIMEN Ordering Facility: [facility] Address: [address] [place] [address] Performed By: #### T SPN #### [facility] CLIA [id number] [address] [place] [address] TYPE AND SCREEN EXPIRATION 06/19/2024 23:59 Normal [facility] Comment on above: Order Comment: Speci men Type: BLOOD SPECIMEN Ordering Facility: [facility] Address: [address] [place] [address] Performed By: #### T SPN #### [facility] CLIA [id number] [address] [place] [address] CNPNon 06-08-2024 CNPN Telephone (INTMMN) ----- LAINA DE LEÓN ([id number]) 1995 F T Date Time Provider Department 06/08/24 LUH QUINN During your visit today, we recorded the following information about you: Luh Quinn, RN 06/08/2024 11:26 AM Signed Venofer orders signed. PA approved. Venice León 06/08/2024 11:53 AM Signed LVM for pt to call back and schedule IRON SUCROSE 200 X3 OVER 2 WEEKS. Venice León Amy Hicks 06/08/2024 12:14 PM Signed Scheduled with patient Start email sent Allergies As of Date: 06/08/2024 Noted Allergy Reaction CEFDINIR 04/11/2012 11 - Vomiting MORPHINE 05/15/2013 4 - Hives 12 - Shortness of Breath Comments: given medication at [facility] and reacted PEANUTS 12/18/2014 7 - [...] deficiency anemia complicating pr*06/05/2024 Encounter Status:Closed by LUH MEYERS on 06/08/24 Normal [facility] CBC panel Auto (Bld)on 05-30 Erythrocyte distribution width (RBC) [Ratio] 15.9 % High 11.5-15.0 [facility] Comment on above: Order Comment: Speci men Type: BLOOD SPECIMENOrdering Facility: [facility] Address: [address] [place] [address] Performed By: #### 5 8410-2 ####[facility] [id number] [place] [address] [place] Hematocrit (Bld) [Volume fraction] 33.5 % Low 36.0-46.0 [facility] Comment on above: Order Comment: Speci men Type: BLOOD SPECIMENOrdering Facility: [facility] Address: [address] [place] [address] Performed By: #### 5 8410-2 ####[facility] [id number] [place] [address] [place] Hemoglobin (Bld) [Mass/Vol] 9.9 g/dL Low 11.5-15.5 [facility] Comment on above: Order Comment: Speci men Type: BLOOD SPECIMENOrdering Facility: [facility] Address: [address] [place] [address] Performed By: #### 5 8410-2 ####[facility] [id number] [place] [address] [place] MCH (RBC) [Entitic mass] 23.3 pg Low 26.0-34.0 [facility] Comment on above: Order Comment: Speci men Type: BLOOD SPECIMENOrdering Facility: [facility] Address: [address] [place] [address] Performed By: #### 5 8410-2 ####[facility] [id number] [place] [id number] [place] MCHC (RBC) [Mass/Vol] 29.6 g/dL Low 30.5-36.0 [facility] Comment on above: Order Comment: Speci men Type: BLOOD SPECIMENOrdering Facility: [facility] Address: [address] [place] [address] Performed By: #### 5 8410-2 ####[facility] [id number] [address] [address] [place] MCV (RBC) [Entitic vol] 79.0 fL Low 80.0-100.0 [facility] Comment on above: Order Comment: Speci men Type: BLOOD SPECIMENOrdering Facility: [facility] Address: [address] [place] [address] Performed By: #### 5 8410-2 ####[facility] [id number] [place] [address] [place] Nucleated RBC (Bld) [#/Vol] 10*3/uL Normal <0.01 [facility] Comment on above: Order Comment: Speci men Type: BLOOD SPECIMENOrdering Facility: [facility] Address: [address] [place] [address] Performed By: #### 5 8410-2 ####[facility] [id number] [place] [address] [place] Platelet mean volume (Bld) [Entitic vol] 10.9 fL Normal 9.0-12.7 [facility] Comment on above: Order Comment: Speci men Type: BLOOD SPECIMENOrdering Facility: [facility] Address: [address] [place] [address] Performed By: #### 5 8410-2 ####[facility] [id number] [place] [id number] [place] Platelets (Bld) [#/Vol] 474 10*3/uL High 150-400 [facility] Comment on above: Order Comment: Speci men Type: BLOOD SPECIMENOrdering Facility: [facility] Address: [address] [place] [address] Performed By: #### 5 8410-2 ####[facility] [id number] [place] [address] [place] RBC (Bld) [#/Vol] 4.24 10*6/uL Normal 3.90-5.20 [facility] Comment on above: Order Comment: Speci men Type: BLOOD SPECIMENOrdering Facility: [facility] Address: [address] [place] [address] Performed By: #### 5 8410-2 ####[facility] [id number] [place] [address] [place] WBC (Bld) [#/Vol] 9.94 10*3/uL Normal 3.70-11.00 [facility] Comment on above: Order Comment: Speci men Type: BLOOD SPECIMENOrdering Facility: [facility] Address: [address] [place] [address] Performed By: #### 5 8410-2 ####[facility] [id number] [place] [address] [place] Ferritin SerPl-mCncon 2024 Ferritin [Mass/Vol] 13.8 ng/mL Low 14.7-205.1 [facility] Comment on above: Order Comment: Speci men Type: BLOOD SPECIMENOrdering Facility: [facility] Address: [address] [place] [address] Performed By: #### 5 0190-8, 2276-4 ####[facility] [id number] [place] [id number] [place] Iron and Iron binding capaci ty panelon 05-30-2024 Iron [Mass/Vol] 20 ug/dL Low 41-186 [facility] Comment on above: Order Comment: Speci men Type: BLOOD SPECIMENOrdering Facility: [facility] Address: [address] [place] [address] Performed By: #### 5 0190-8, 2276-4 ####[facility]CL[facility] [id number] [place] [id number] [place] Iron binding capacity [Mass/Vol] >520 High 232-386 [facility] Comment on above: Order Comment: Speci men Type: BLOOD SPECIMENOrdering Facility: [facility] Address: [address] [place] [address] Performed By: #### 5 0190-8, 6-4 ####[facility]CL[facility] [id number] [place] [id number] [place] Iron/TIBC [Molar ratio] <3.8 Low 15.0-57.0 [facility] Comment on above: Order Comment: Speci men Type: BLOOD SPECIMENOrdering Facility: [facility] Address: [address] [place] [address] Performed By: #### 5 0190-8, 6-4 ####[facility] LABCLIA [id number] [place] [address] [place] CNCOon 05-02-2024 CNCO Letter Text Normal [facility] Examination level ultrasound on 04-26-2024 Indication First trimester anatomic survey Impression REMOTE READ The patient is referred for a first trimester anatomy scan including nuchal translucency measurement as clinically indicated. - Single, live, intrauterine . - [place] rump length measurement is consistent with the [...] view: normal 4-chamber view with color: normal 6-ceylay-mtvmebf view: normal Abdominal cord insertion: normal Stomach: [...] cyst findings: Unilocular simple cyst Performed By: Mariah Barraza RDMS, RVT Read By: Kyung Tom M.D. MATERNAL MEDICINE [facility] Radiology Study observation (narrative) [facility] William 04-18-2024 CNPKeily Telephone (OBGYWM) ----- LAINA DE LEÓN ([id number]) 1995 F CHT Date Time Provider Department 04/18/24 KAYY LONGO During your visit today, we recorded the following information about you: Allergies As of Date: 04/18/2024 Noted Allergy Reaction CEFDINIR 04/11/2012 11 - Vomiting MORPHINE 05/15/2013 4 - Hives 12 - Shortness of Breath Comments: given medication at [facility] and reacted PEANUTS 12/18/2014 7 - Swelling Comments: redness Date Reviewed: 03/31/2024 Reviewed by: Patricia Valentine LPN - Fully Assessed Reason for Visit: Orders [681] Primary Visit Diagnosis:Anemia affecting in first trimester [O99.011] Order(s):IRON AND TIBC [SQIRON] Order #: [id number] FUTURE FERRITIN [SQFERR] Order #: [id number] FUTURE Prescriptions as of 04/18/2024 - aspirin, [...] Status:Closed by KAYY LONGO on 04/18/24 Normal [facility] CBC W Auto Differential pane l (Bld)on 04-14-2024 Basophils (Bld) [#/Vol] 0.05 10*3/uL Normal <0.11 [facility] Comment on above: Order Comment: Speci men Type: BLOOD SPECIMENOrdering Facility: [facility] Address: [address] [place] [address] Performed By: #### 5 7021-8 ####[facility] [id number] [place] [address] [place] Basophils/100 WBC (Bld) 0.4 % Normal [facility] Comment on above: Order Comment: Speci men Type: BLOOD SPECIMENOrdering Facility: [facility] Address: [address] [place] [address] Performed By: #### 5 7021-8 ####[facility] [id number] [place] [address] [place] Differential cell count method Nom (Bld) Auto Normal [facility] Comment on above: Order Comment: Speci men Type: BLOOD SPECIMENOrdering Facility: [facility] Address: [address] [place] [address] Performed By: #### 5 7021-8 ####[facility] MILLWNCLIA [id number] [place] [address] [place] Eosinophils (Bld) [#/Vol] 0.13 10*3/uL Normal <0.46 [facility] Comment on above: Order Comment: Speci men Type: BLOOD SPECIMENOrdering Facility: [facility] Address: [address] [place] [address] Performed By: #### 5 7021-8 ####[facility] MILLDUPONTNCLIA [id number] [place] [address] [place] Eosinophils/100 WBC (Bld) 1.1 % Normal [facility] Comment on above: Order Comment: Speci men Type: BLOOD SPECIMENOrdering Facility: [facility] Address: [address] [place] [address] Performed By: #### 5 7021-8 ####[facility] [id number] [place] [address] [place] Erythrocyte distribution width (RBC) [Ratio] 15.1 % High 11.5-15.0 [facility] Comment on above: Order Comment: Speci men Type: BLOOD SPECIMENOrdering Facility: [facility] Address: [address] [place] [address] Performed By: #### 5 7021-8 ####[facility]CL[facility] [id number] [place] [address] [place] Hematocrit (Bld) [Volume fraction] 32.9 % Low 36.0-46.0 [facility] Comment on above: Order Comment: Speci men Type: BLOOD SPECIMENOrdering Facility: [facility] Address: [address] [place] [address] Performed By: #### 5 7021-8 ####[facility] [id number] [place] [address] [place] Hemoglobin (Bld) [Mass/Vol] 10.1 g/dL Low 11.5-15.5 [facility] Comment on above: Order Comment: Speci men Type: BLOOD SPECIMENOrdering Facility: [facility] Address: [address] [place] [address] Performed By: #### 5 7021-8 ####[facility]ITAL[facility]CL[facility] [id number] [place] [address] [place] Immature granulocytes (Bld) [#/Vol] 0.04 10*3/uL Normal <0.10 [facility] Comment on above: Order Comment: Speci men Type: BLOOD SPECIMENOrdering Facility: [facility] Address: [address] [place] [address] Performed By: #### 5 7021-8 ####[facility]ITALRAYA [id number] [place] [address] [place] Immature granulocytes/100 WBC (Bld) 0.3 % Normal [facility] Comment on above: Order Comment: Speci men Type: BLOOD SPECIMENOrdering Facility: [facility] Address: [address] [place] [address] Performed By: #### 5 7021-8 ####[facility] [id number] [place] [address] [place] Lymphocytes (Bld) [#/Vol] 2.76 10*3/uL Normal 1.00-4.00 [facility] Comment on above: Order Comment: Speci men Type: BLOOD SPECIMENOrdering Facility: [facility] Address: [address] [place] [address] Performed By: #### 5 7021-8 ####[facility] [id number] [place] [address] [place] Lymphocytes/100 WBC (Bld) 23.7 % Normal [facility] Comment on above: Order Comment: Speci men Type: BLOOD SPECIMENOrdering Facility: [facility] Address: [address] [place] [address] Performed By: #### 5 7021-8 ####[facility]IT[facility] [id number] [place] [address] [place] MCH (RBC) [Entitic mass] 24.2 pg Low 26.0-34.0 [facility] Comment on above: Order Comment: Speci men Type: BLOOD SPECIMENOrdering Facility: [facility] Address: [address] [place] [address] Performed By: #### 5 7021-8 ####[facility]CL[facility] [id number] [place] [address] [place] MCHC (RBC) [Mass/Vol] 30.7 g/dL Normal 30.5-36.0 [facility] Comment on above: Order Comment: Speci men Type: BLOOD SPECIMENOrdering Facility: [facility] Address: [address] [place] [address] Performed By: #### 5 7021-8 ####[facility] [id number] [place] [address] [place] MCV (RBC) [Entitic vol] 78.7 fL Low 80.0-100.0 [facility] Comment on above: Order Comment: Speci men Type: BLOOD SPECIMENOrdering Facility: [facility] Address: [address] [place] [address] Performed By: #### 5 7021-8 ####[facility] [id number] [place] [address] [place] Monocytes (Bld) [#/Vol] 0.75 10*3/uL Normal <0.87 [facility] Comment on above: Order Comment: Speci men Type: BLOOD SPECIMENOrdering Facility: [facility] Address: [address] [place] [address] Performed By: #### 5 7021-8 ####[facility] [id number] [place] [address] [place] Monocytes/100 WBC (Bld) 6.4 % Normal [facility] Comment on above: Order Comment: Speci men Type: BLOOD SPECIMENOrdering Facility: [facility] Address: [address] [place] [address] Performed By: #### 5 7021-8 ####[facility] [id number] [place] [address] [place] Neutrophils (Bld) [#/Vol] 7.93 10*3/uL High 1.45-7.50 [facility] Comment on above: Order Comment: Speci men Type: BLOOD SPECIMENOrdering Facility: [facility] Address: [address] [place] [address] Performed By: #### 5 7021-8 ####[facility] [id number] [place] [address] [place] Neutrophils/100 WBC (Bld) 68.1 % Normal [facility] Comment on above: Order Comment: Speci men Type: BLOOD SPECIMENOrdering Facility: [facility] Address: [address] [place] [address] Performed By: #### 5 7021-8 ####[facility] [id number] [place] [address] [place] Nucleated RBC (Bld) [#/Vol] 10*3/uL Normal <0.01 [facility] Comment on above: Order Comment: Speci men Type: BLOOD SPECIMENOrdering Facility: [facility] Address: [address] [place] [address] Performed By: #### 5 7021-8 ####[facility] [id number] [place] [address] [place] Nucleated RBC/100 WBC (Bld) [Ratio] 0.0 /100 WBC Normal [facility] Comment on above: Order Comment: Speci men Type: BLOOD SPECIMENOrdering Facility: [facility] Address: [address] [place] [address] Performed By: #### 5 7021-8 ####[facility]ITALNCA [id number] [place] [address] [place] Platelet mean volume (Bld) [Entitic vol] 9.5 fL Normal 9.0-12.7 [facility] Comment on above: Order Comment: Speci men Type: BLOOD SPECIMENOrdering Facility: [facility] Address: [address] [place] [address] Performed By: #### 5 7021-8 ####[facility] JESSENIAWNCLIA [id number] [place] [address] [place] Platelets (Bld) [#/Vol] 392 10*3/uL Normal 150-400 [facility] Comment on above: Order Comment: Speci men Type: BLOOD SPECIMENOrdering Facility: [facility] Address: [address] [place] [address] Performed By: #### 5 7021-8 ####[facility]ITALNCLIA [id number] [place] [address] [place] RBC (Bld) [#/Vol] 4.18 10*6/uL Normal 3.90-5.20 [facility] Comment on above: Order Comment: Speci men Type: BLOOD SPECIMENOrdering Facility: [facility] Address: [address] [place] [address] Performed By: #### 5 7021-8 ####[facility]ITALNCA [id number] [place] [address] [place] WBC (Bld) [#/Vol] 11.66 10*3/uL High 3.70-11.00 [facility] Comment on above: Order Comment: Speci men Type: BLOOD SPECIMENOrdering Facility: [facility] Address: [address] [place] [address] Performed By: #### 5 7021-8 ####[facility]ITALNCLIA [id number] [place] [address] [place] HBV surface Ag Ser Qlon - HBV surface Ag Ql (S) Negative Normal Negative [facility] Comment on above: Order Comment: Speci men Type: BLOOD SPECIMENOrdering Facility: [facility] Address: [address] [place] [address] Performed By: #### 7 3752-8, 5-3, 79232-4 ####[facility] LABCLIA [id number] [place] [address] [place] HCV Ab Ser Qlon 04-14-2024 HCV Ab Ql (S) Negative Normal Negative [facility] Comment on above: Order Comment: Speci men Type: BLOOD SPECIMENOrdering Facility: [facility] Address: [address] [place] [address] Result Comment: The result suggests no evidence of active infection with Hepatitis C virus. Should recent infection be suspected, repeat testing may be considered 4-6 weeks after this draw. Performed By: #### 1 6128-1 ####[facility] LABCLIA [id number] [place] [address] [place] HIV 1+2 Ab IA Qlon HIV 1 and 2 Ab IA.rapid Nom (S/P/Bld) Normal [facility] Comment on above: Order Comment: Speci men Type: BLOOD SPECIMENOrdering Facility: [facility] Address: [address] [place] [address] Result Comment: Test not indicated. Performed By: #### 7 3752-8, 5194-3, ####[facility] LABCLIA [id number] [place] [address] [place] HIV 1+2 Ab+HIV1 p24 Ag IA Ql Non-Reactive Normal Nonreactive [facility] Comment on above: Order Comment: Speci men Type: BLOOD SPECIMENOrdering Facility: [facility] Address: [address] [place] [address] Performed By: #### 7 3752-8, 5195-3, ####[facility] LABCLIA [id number] [place] [address] [place] HIV immunoassay testing algorithm interpretation (S/P/Bld) [Interp] Normal [facility] Comment on above: Order Comment: Speci men Type: BLOOD SPECIMENOrdering Facility: [facility] Address: [address] [place] [address] Result Comment: No e vidence of HIV-1 or HIV-2 infection. Should recent infection be suspected, repeat testing may be considered 2-3 weeks after this draw. [place] Diaz Rev. Code 3701.243(E): This information has been [...] diagnoses. Performed By: #### 7 3752-8, 5195-3, 11258-8 ####[facility] LABCLIA [id number] [place] [address] [place] HbA1c (Bld)on 04-14-2024 Average glucose Estimated from glycated hemoglobin (Bld) [Mass/Vol] 114 mg/dL Normal [facility] Comment on above: Order Comment: Speci men Type: BLOOD SPECIMENOrdering Facility: [facility] Address: [address] [place] [address] Result Comment: eAG: (Estimated average glucose) is a calculated value from HgbA1c and is human resources hr representative of the average blood glucose level in the last 2-3 month period. Performed By: #### 5 5454-3 ####[facility] LABIA [id number] [place] [address] [place] HbA1c (Bld) [Mass fraction] 5.6 % Normal 4.3-5.6 [facility] Comment on above: Order Comment: Speci men Type: BLOOD SPECIMENOrdering Facility: [facility] Address: [address] [place] [address] Result Comment: Amer ican Diabetes Association guidelines indicate that patients with HgbA1c in the range 5.7-6.4% are at increased risk for development of diabetes, and intervention by lifestyle modification may be beneficial. HgbA1c greater or equal to 6.5% is considered diagnostic of diabetes. Performed By: #### 5 5454-3 ####[facility] LABCLIA [id number] [place] [address] [place] [id number] PLUSon 04-14-2024 Cell-free DNA./Cell-free DNA.total Dosage of chromosome-specific cfDNA (cfDNA) [Molar fraction] 11% Normal [facility] Comment on above: Order Comment: Speci men Type: BLOOD SPECIMENOrdering Facility: [facility] Address: [address] [place] [address] Performed By: #### M AT21 ####[facility] LABCLIA [id number] [place] [address] Chr 13+18+21+X+Y aneuploidy Dosage of chromosome-specific cfDNA Ql (cfDNA) Negative Normal [facility] Comment on above: Order Comment: Speci men Type: BLOOD SPECIMENOrdering Facility: [facility] Address: [address] [place] [address] Performed By: #### M AT21 ####[facility] [employer] [employer] LABCLIA [id number] [place] [address] Chr 21 trisomy Dosage of chromosome-specific cfDNA Ql (cfDNA) Negative Normal [facility] Comment on above: Order Comment: Speci men Type: BLOOD SPECIMENOrdering Facility: [facility] Address: [address] [place] [address] Performed By: #### M AT21 ####[facility] LABCLIA [id number] [place] [address] Chr X and Y aneuploidy risk Sequencing Ql (cfDNA) [Interp] Not detected Normal [facility] Comment on above: Order Comment: Speci men Type: BLOOD SPECIMENOrdering Facility: [facility] Address: [address] [place] [address] Result Comment: Not Detected Not Detected Performed By: #### M AT21 ####[facility] LABCLIA [id number] [place] [address] Citation Carlos (Reference lab test) Comment Normal [facility] Comment on above: Order Comment: Speci men Type: BLOOD SPECIMENOrdering Facility: [facility] Address: [address] [place] [address] Result Comment: 1. P navid BORGES et al. Estefania Med. 2012;14(3):296-305. 2. Kranthi TOURE, et al. Prenat Diag. 2013;33(6):591-597. 3. Onesimo Salguero, et al. Clin Chem. 2015 Jun;61(4):608-616. 4. Rick BORGES, et al. Estefania Med. 2011;13(11):913-920. 5. ACOG/SMFM Practice Bulletin No. 226, Dec 2019. Performed By: #### M AT21 ####[facility] LABCLIA [id number] [place] [address] Gestational age Estimated from conception date Cash Normal [facility] Comment on above: Order Comment: Speckyle espinal Type: BLOOD SPECIMENOrdering Facility: [facility] Address: [address] [place] [address] Performed By: #### M AT21 ####[facility] LABCLIA [id number] [place] [address] GESTATIONALAGE AGE > OR = 9W Yes Normal [facility] Comment on above: Order Comment: Shantel espinal Type: BLOOD SPECIMENOrdering Facility: [facility] Address: [address] [place] [address] Performed By: #### M AT21 ####[facility] LABCLIA [id number] [place] [address] Laboratory comment Carlos (Report) Comment Normal [facility] Comment on above: Order Comment: Shantel espinal Type: BLOOD SPECIMENOrdering Facility: [facility] Address: [address] [place] [address] Result Comment: The MaterniT(R) 21 PLUS laboratory-developed test (LDT) analyzes circulating cell-free DNA from a maternal blood sample. This test is used for screening purposes and not diagnostic. Clinical correlation is recommended. Validation data on twin pregnancies is limited and the ability of this test to detect aneuploidy in higher multiple gestations has not yet been validated. Performed By: #### M AT21 ####[facility] LABCLIA [id number] [place] [address] director zone name Nom (Provider) Comment Normal [facility] Comment on above: Order Comment: Speci men Type: BLOOD SPECIMENOrdering Facility: [facility] Address: [address] [place] [address] Result Comment: This specimen showed an expected representation of chromosome 21, 18 and 13 material. Clinical correlation is suggested. Comment Harish Carcamo MD, PhD, Director, [employer] [facility] Performed By: #### M AT21 ####[facility] LABCLIA [id number] [place] [address] LIMITATIONS OF THE TEST Comment Normal [facility] Comment on above: Order Comment: Speci men Type: BLOOD SPECIMENOrdering Facility: [facility] Address: [address] [place] [address] Result Comment: Soledad ellington the results of [...] and Fragmin(R)). Performed By: #### M AT21 ####[employer]!IA [id number] [place] [address] Monosomy X risk Dosage of chromosome-specific cfDNA Ql (Plasma cell-free+WBC DNA) [Interp] Not detected Normal [facility] Comment on above: Order Comment: Speci kylie Type: BLOOD SPECIMENOrdering Facility: [facility] Address: [address] [place] [address] Performed By: #### M AT21 ####[employer] LABTxtFeedbackIA [id number] [place] [address] NEGATIVE PREDICTIVE VALUE Note Normal [facility] Comment on above: Order Comment: Speckyle espinal Type: BLOOD SPECIMENOrdering Facility: [facility] Address: [address] [place] [address] Result Comment: The Negative Predictive Value (NPV) for trisomy 21, 18, and 13 is greater than 99%. The NPV for SCA and ESS cannot be calculated as SCA and ESS are only reported when an abnormality is detected. Performed By: #### M AT21 ####[employer] LABTxtFeedbackIA [id number] [facility] [place] [address] PERFORMANCE CHARACTERISTICS Note Normal [facility] Comment on above: Order Comment: Norai kylie Type: BLOOD SPECIMENOrdering Facility: [facility] Address: [address], [place] [address] Result Comment: ! Sex ! Accuracy: 99.4% [...] gestation only. Performed By: #### M AT21 ####[facility] [employer] LABCLIA [id number] [place] [address] POSITIVE PREDICTIVE VALUE N/A Normal [facility] Comment on above: Order Comment: Speci men Type: BLOOD SPECIMENOrdering Facility: [facility] Address: [address] [place] [address] Performed By: #### M AT21 ####[facility] LABCLIA [id number] [place] [address] Reference Lab Test Method Comment Normal [facility] Comment on above: Order Comment: Shantel espinal Type: BLOOD SPECIMENOrdering Facility: [facility] Address: [address] [place] [address] Result Comment: See Notes Circulating cell-free DNA [...] and 22. Performed By: #### M AT21 ####[facility] LABCLIA [id number] [place] [address] Service comment (Unsp spec) [Interp] Comment Normal [facility] Comment on above: Order Comment: Speci men Type: BLOOD SPECIMENOrdering Facility: [facility] Address: [address] [place] [address] Result Comment: See Notes [employer] is a subsidiary of [employer], using the brand [employer]. This test was developed and its performance characteristics determined by [employer]. It has not been cleared or approved by the Food and Drug Administration. This laboratory is certified under the Clinical Laboratory Improvement Amendments (CLIA) as qualified to perform high complexity clinical laboratory testing and accredited by the [employer] (CAP). If there is future clinical need for adding MaterniT GENOME testing, this specimen will be available until term. [facility] samples will not be retained beyond 60 days. [facility] patients will have to send a new sample for re-sequencing ([facility] Test Code: 401136). Performed By: #### M AT21 ####[facility] LABCLIA [id number] [place] [address] Sex Dosage of chromosome-specific cfDNA Nom (cfDNA) Comment Normal [facility] Comment on above: Order Comment: Speci men Type: BLOOD SPECIMENOrdering Facility: [facility] Address: [address] [place] [address] Result Comment: Cons istent with Male Performed By: #### M AT21 ####[facility] LABCLIA [id number] [place] [address] Test performance information Carlos (Unsp spec) Comment Normal [facility] Comment on above: Order Comment: Speci men Type: BLOOD SPECIMENOrdering Facility: [facility] Address: [address] [place] [address] Result Comment: The performance characteristics of the MaterniT(R) 21 PLUS laboratory-developed test (LDT) have been determined in a clinical validation study with women at increased risk for chromosomal aneuploidy.[1-4] Performed By: #### M AT21 ####[facility] LABCLIA [id number] [place] [address] Trisomy 13 risk Dosage of chromosome-specific cfDNA Ql (cfDNA) [Interp] Negative Normal [facility] Comment on above: Order Comment: Speci men Type: BLOOD SPECIMENOrdering Facility: [facility] Address: [address] [place] [address] Performed By: #### M AT21 ####[facility] LABCLIA [id number] [place] [address] Trisomy 18 risk Dosage of chromosome-specific cfDNA Ql (Plasma cell-free+WBC DNA) [Interp] Negative Normal [facility] Comment on above: Order Comment: Speci men Type: BLOOD SPECIMENOrdering Facility: [facility] Address: [address] [place] [address] Performed By: #### M AT21 ####[employer] LABCLIA [id number] [place] [address] RUBELLA IGG ANTIBODYon 04-14 RUBELLA IGG AB, QUAL Positive Normal Positive [facility] Comment on above: Order Comment: Speci men Type: BLOOD SPECIMENOrdering Facility: [facility] Address: [address] [place] [address] Result Comment: The result suggests recent or past exposure to Rubella virus or history of Rubella vaccination. Positive result may also be seen due to presence of passively-transferred antibodies. Please correlate with patient's history. Performed By: #### R UBIGG ####[facility] LABCLIA [id number] [facility] [id number] [place] [address] [place] Reagin and Treponema pallidu m IgG and IgM [Interp]on 04-14-2024 T. pallidum IgG+IgM IA Ql (S) Non-Reactive Normal Nonreactive [facility] Comment on above: Order Comment: Speci men Type: BLOOD SPECIMENOrdering Facility: [facility] Address: [address] [place] [address] Performed By: #### 7 3752-8, 5195-3, 43679-4 ####[facility] LABCLIA [id number] [place] [address] [place] Reagin+T pallidum IgG+IgM Se rPl-Impon 04-14-2024 Reagin and Treponema pallidum IgG and IgM [Interp] Cannot exclude recent Treponemal infection if specimen collected within 7-10 days after appearance of suspect lesions or 2-3 weeks after an exposure. Clinical correlation is required. Normal [facility] Comment on above: Order Comment: Speci men Type: BLOOD SPECIMENOrdering Facility: [facility] Address: [address] [place] [address] Performed By: #### 7 3752-8, 5195-3, 97986-4 ####[facility] LABCLIA [id number] [place] [address] [place] TYPE + SCREEN PRENATALon ABO A Normal [facility] Comment on above: Order Comment: Speci men Type: BLOOD SPECIMENOrdering Facility: [facility] Address: [address] [place] [address] Performed By: #### T SPN ####[facility] BLOOD BANKCLIA [id number] [place] [address] [place] Rh Nom (Bld) Negative Normal [facility] Comment on above: Order Comment: Speci men Type: BLOOD SPECIMENOrdering Facility: [facility] Address: [address] [place] [address] Performed By: #### T SPN ####[facility] MAIN BLOOD BANKCLIA [id number] [place] [address] [place] TYPE AND SCREEN EXPIRATION 04/17/2024 23:59 Normal [facility] Comment on above: Order Comment: Speci men Type: BLOOD SPECIMENOrdering Facility: [facility] Address: [address] [place] [address] Performed By: #### T SPN ####CC MAIN BLOOD BANKCLIA [id number] [place] [id number] [place] [facility] William 04-04-2024 CNPN Telephone (OGFVWE) ----- TOMÁSLAINA MORILLO ([id number]) 1995 F CHT Date Time Provider Department 04/04/24 INNA CARROLL During your visit today, we recorded the following information about you: Inna Carroll RN 04/04/2024 11:24 AM Signed 1st risk assessment form submitted 04/04/2024. 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 trachomatis+N. gonorrhoea e DNA BEN+probe Ql (Unsp spec)on 03-31-2024 C. trachomatis rRNA BEN+probe Ql (Unsp spec) Not detected Normal Not detected [facility] Comment on above: Order Comment: Speci men Type: SWABOrdering Facility: [facility] Address: [address] [place] [address] Performed By: #### 3 6902-5 ####[facility] LABCLIA [id number] [place] [address] [place] N. gonorrhoeae rRNA BEN+probe Ql (Unsp spec) Not detected Normal Not detected [facility] Comment on above: Order Comment: Speci men Type: SWABOrdering Facility: [facility] Address: [address] [place] [address] Performed By: #### 3 6902-5 ####[facility] LABIA [id number] [place] [address] [place] PAP TESTon 03-31-2024 ADEQUACY Normal [facility] Comment on above: Order Comment: Speci men Type: FLUID SPECIMENOrdering Facility: [facility] Address: [address] [place] [address] Result Comment: Sati sfactory for interpretation. No endocervical component Performed By: #### L [id number] ####[facility] LABCLIA [id number] [place] [address] [place] CASE REPORT Normal [facility] Comment on above: Order Comment: Speci men Type: FLUID SPECIMENOrdering Facility: [facility] Address: [address] [place] [address] Result Comment: Gyne cologic Cytology Report Case: [id number] Authorizing Provider: Kayy Longo APRN.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 Collected: 03/31/2024 09:48 AM Ordering Location: OB/Gynecology Received: 03/31/2024 12:14 PM First Screen: Luis Jim, CT, ASCP Specimen: Pap Test, ThinPrep, Cervix Performed By: #### L [id number] ####[facility] LABCLIA [id number] [place] [address] [place] CLINICAL HISTORY, CYTOLOGY, WASH DRILLER HELPER Routine Exam Normal [facility] Comment on above: Order Comment: Speci men Type: FLUID SPECIMENOrdering Facility: [facility] Address: [address] [place] [address] Performed By: #### L [id number] ####[facility] LABCLIA [id number] [place] [address] [place] FINAL PERFORMING LAB Normal [facility] Comment on above: Order Comment: Speci men Type: FLUID SPECIMENOrdering Facility: [facility] Address: [address] [place] [address] Result Comment: Tech nical component, hospital clerk screening performed at [facility], [address] [place] [address] CLIA# [id number] Diagnostic interpretation performed at [facility], [address] [place], [place] [address] CLIA# [id number] Cutter Operator Brick: Amarjit Harper M.D. Performed By: #### L [id number] ####[facility] LABCLIA [id number] [address] [address] [place] INTERPRETATION, CYTOLOGY, WASH DRILLER HELPER Normal [facility] Comment on above: Order Comment: Speci men Type: FLUID SPECIMENOrdering Facility: [facility] Address: [address] [place] [address] Result Comment: Nega tive for intraepithelial lesion or malignancy. Performed By: #### L [id number] ####[facility] LABIA [id number] [place] [id number] [place] LMP 02/29/2024 Normal [facility] Comment on above: Order Comment: Speci men Type: FLUID SPECIMENOrdering Facility: [facility] Address: [address] [place] [address] Performed By: #### L [id number] ####[facility] LABCLIA [id number] [address] [address] [place] PAP DISCLAIMER COMMENT The Pap Smear is a screening test for cervical cancer. False negative results occur with all screening tests, emphasizing the need for rescreening at recommended intervals, and clinical correlation. Normal [facility] Comment on above: Order Comment: Speci men Type: FLUID SPECIMENOrdering Facility: [facility] Address: [address] [place] [address] Performed By: #### L [id number] ####[facility] LABIA [id number] [address] [address] [place] PAP BODY PIERCER COMMENT This specimen has be en analyzed by the ThinPrep Imaging System, an automated imaging and review system, which assists the laboratory in evaluating cells on ThinPrep Pap tests. Following automated imaging, selected stevens from every slide are reviewed by a hospital clerk. Normal [facility] Comment on above: Order Comment: Speci men Type: FLUID SPECIMENOrdering Facility: [facility] Address: [address] [place] [address] Performed By: #### L [id number] ####[facility] LABCLIA [id number] [facility] [id number] [place], [place] [id number] [facility] [place] POC COREMAKER ULTRASOUNDon 03-31-19 Indication Confirmation of intrauterine . [...] Read By: Kayy Longo CNP MATERNAL MEDICINE [facility] Radiology Study observation (narrative) [facility] Examination level ultrasound on 03-16-2024 Indication [...] Performed By: Niki Lucio RDMS Read By: Dani Rudolph M.D. MATERNAL MEDICINE [facility] Radiology Study observation (narrative) [facility] B-HCG SerPl[facility] 4 HCG.beta subunit Qn 1700.0 m[IU]/mL High <5.0 [facility] Comment on above: Order Comment: Speci men Type: BLOOD SPECIMENOrdering Facility: [facility] Address: [address] [place] [address] Result Comment: CHERELLE TITATIVE HCG NORMAL RANGES Weeks of Gestation (Weeks Since LMP) 3 Weeks (5.8-71.2 mIU/mL) 4 Weeks (9.5-750 mIU/mL) 5 Weeks (217-7138 mIU/mL) 6 Weeks (158-00608 mIU/mL) 7 Weeks (3697-253176 mIU/mL) 8 Weeks (18527-079379 mIU/mL) 9 Weeks (88251-882515 mIU/mL) 10 Weeks (59346-092081 mIU/mL) 12 Weeks (32797-284298 mIU/mL) Referenced to 4th IS of [facility] Performed By: #### 2 1198-7 ####[facility] LABCLIA [id number] [facility] [id number] [id number] [place] CNPNon 03-03-2024 CNPN Telephone (OBGYWM) ----- LAINA DE LEÓN ([id number]) 1995 F CHT Date Time Provider Department 03/03/24 INNA GARCIA During your visit today, we recorded the following information about you: Laina Cardoza RN 03/03/2024 10:16 AM Addendum ----- [...] Shortness of Breath Comments: given medication at [facility] and reacted PEANUTS 12/18/2014 7 - [...] Status:Closed by INNA HORNE on 03/06/24 Normal [facility] B-HCG SerPl-aCncon 4 HCG.beta subunit Qn 713.3 m[IU]/mL High <5.0 C [facility] Comment on above: Order Comment: Speci men Type: BLOOD SPECIMENOrdering Facility: [facility] Address: [address] [place] [address] Result Comment: CHERELLE TITATIVE HCG NORMAL RANGES Weeks of Gestation (Weeks Since LMP) 3 Weeks (5.8-71.2 mIU/mL) 4 Weeks (9.5-750 mIU/mL) 5 Weeks (217-7138 mIU/mL) 6 Weeks (158-73132 mIU/mL) 7 Weeks (3697-906586 mIU/mL) 8 Weeks (34198-992129 mIU/mL) 9 Weeks (75160-436918 mIU/mL) 10 Weeks (36849-470393 mIU/mL) 12 Weeks (52110-597117 mIU/mL) Referenced to 4th [facility] Performed By: #### 2 1198-7 ####[facility] LABCLIA [id number] KEHINDESharon [address] [address] [place] 03-01-2024 CNPN Telephone (OBGYWM) ----- LAINA DE LEÓN ([id number]) 1995 F CHT Date Time Provider Department 03/01/24 INNA GARCIAWSandra During your visit today, we recorded the following information about you: Mariah Bolivar RN 03/01/2024 1:20 PM Signed Patient [...] 03/01/2024 1:32 PM Signed Yes. Orders placed Mariah Bolivar RN 03/01/2024 1:53 PM Signed Patient notified and voiced understanding, will get blood work completed tomorrow. KEYONNA Borja Jennifer, MD 03/06/2024 8:16 AM Signed Addended by: INNA GARCIA on: 03/06/2024 08:16 AM Modules accepted: Orders Allergies As of Date: 03/01/2024 Noted Allergy Reaction CEFDINIR 04/11/2012 11 - Vomiting MORPHINE 05/15/2013 4 - Hives 12 - Shortness of Breath Comments: given medication at [facility] and reacted PEANUTS 12/18/2014 7 - Swelling Comments: redness Date Reviewed: 02/02/2024 Reviewed by: Erika Calderón MA - Fully Assessed Reason for Visit: test [Other] Primary Visit Diagnosis:Missed menses [N92.6] Order(s):HCG QUANTITATIVE [SQHCGQT] Order #: [id number] STANDING OBSTETRIC ULTRASOUND WHI [[id number]] Reflex Order#: [id number] (Ord#:[id number])Qty: 1 FUTURE Prescriptions as of 03/06/2024 - [...] in second trimester [O9*05/19/2023 Encounter Status:Closed by MARIAH BOLIVAR on 03/01/24 [facility] William 02-09-2024 [facility] Tele[facility] (OBGYWM) ----- LAINA DE LEÓN ([id number]) 1995 F CHT Date Time Provider Department 02/09/24 GÉNESIS JULES OBAWAWSandra During your visit today, we recorded the following information about you: Klarissa Soto, KEYONNA 02/09/2024 4:27 PM Signed Patient saw DM 02/01 for f/u miscarriage and was prescribed Nuvaring. She is asking when she can start that. She is still having light bleeding from miscarriage. Aware provider is back in office on 02/10. KEYONNA Gasca Deidre, MD 02/11/2024 9:37 AM Signed She can start it. Klarissa Soto RN 02/11/2024 9:45 AM Signed Patient notified. Klarissa Soto RN Allergies As of Date: 02/09/2024 Noted Allergy Reaction CEFDINIR 04/11/2012 11 - Vomiting MORPHINE 05/15/2013 4 - Hives 12 - Shortness of Breath Comments: given medication at [facility] and reacted PEANUTS 12/18/2014 7 - Swelling Comments: redness Date Reviewed: 02/02/2024 Reviewed by: Erika Calderón MA - Fully Assessed Reason for Visit: Medication Question [1478] Prescriptions as of 02/11/2024 - Etonogestrel-Ethinyl Estradiol [...] in second trimester [O9*05/19/2023 Encounter Status:Closed by KLARISSA SOTO on 02/11/24 [facility] 02-02-2024 CNOV Office Visit (OBGYWM ) ----- LAINA DE LEÓN ([id number]) 1995 F CHT Date Time Provider Department 02/02/24 10:20 AM GÉNESIS JULES OBGYWSandra During your visit today, we recorded the following information about you: Blood pressure Weight 118/74 66.7 kg Génesis Jules MD 02/02/2024 11:59 AM Signed Assistant Dean Of Students offered: Patient declines. Laina De León is a 28 year old [...] L3 SAB0 IAB0 Ectopic0 Multiple0 Live Births3 Tax Consultant History LMP: 10/20/2022 (Exact Date), Unknown Age at Menarche: Age at First : Age at Menopause: Tax Consultant History Comments: Sexual Activity: Not Currently; Male [...] discussed with the Patient or Patient's Authorized Expressive Music Therapist. As applicable, any other physician, advance practice provider, medical student, or other health professional student that will be observing or involved in the sensitive examination for educational or training purposes was discussed with the Patient or Authorized Expressive Music Therapist. The Patient or Authorized Expressive Music Therapist has agreed to proceed with the sensitive [...] external genitalia normal, normal Bartholin's glands, urethra, [place]'s glands, no vulvar lesions, no cervical lesions, good vaginal support, normal appearing perineal body and perianal region, moderate amount of blood in vault, minimal active bleeding. Os is closed. NEURO: alert and oriented x3,exam grossly non-focal EXTREMITIES: normal Limited transvaginal ultras (more content not included)... Normal [facility] William 01-31-2024 CNPN Telephone (OBGYWM) ----- TOMÁSLAINA MORILLO ([id number]) 1995 F CHT Date Time Provider Department 01/31/24 KAYY LONGO OBGYWM During your visit today, we recorded the following information about you: Kayy Longo APRN.FLORECITA 01/31/2024 7:31 AM Signed Pt quant levels are falling, consistent with a SAB. Pt needs scheduled with doctor to discuss management. Kayy Longo APRN.Klarissa Lindsey RN 01/31/2024 9:56 AM Signed Attempted to call patient. Unable to leave message because mailbox was full. KEYONNA Gasca Lindsey, RN 01/31/2024 10:27 AM Signed Patient notified and voiced understanding of results. Follow up scheduled. Mariah Bolivar RN Allergies As of Date: 01/31/2024 Noted Allergy Reaction CEFDINIR 04/11/2012 11 - Vomiting MORPHINE 05/15/2013 4 - Hives 12 - Shortness of Breath Comments: given medication at [facility] and reacted PEANUTS 12/18/2014 7 - [...] in second trimester [O9*05/19/2023 Encounter Status:Closed by MARIAH BOLIVAR on 01/31/24 Normal [facility] B-HCG SerPl-aCncon 4 HCG.beta subunit Qn 61.2 m[IU]/mL High <5.0 Cl [facility] Comment on above: Order Comment: Speci men Type: BLOOD SPECIMENOrdering Facility: [facility] Address: [address] [place] [address] Result Comment: CHERELLE TITATIVE HCG NORMAL RANGES Weeks of Gestation (Weeks Since LMP) 3 Weeks (5.8-71.2 mIU/mL) 4 Weeks (9.5-750 mIU/mL) 5 Weeks (217-7138 mIU/mL) 6 Weeks (158-71851 mIU/mL) 7 Weeks (3697-142531 mIU/mL) 8 Weeks (57949-684778 mIU/mL) 9 Weeks (10365-143022 mIU/mL) 10 Weeks (67919-814820 mIU/mL) 12 Weeks (87632-149607 mIU/mL) Referenced to 4th IS of [facility] Performed By: #### 2 1198-7 ####[facility] LABCLIA [id number] [address] [place] B-HCG SerPl-aCncon 4 HCG.beta subunit Qn 124.3 m[IU]/mL High <5.0 C [facility] Comment on above: Order Comment: Speci men Type: BLOOD SPECIMENOrdering Facility: [facility] Address: [address] [place] [address] Result Comment: CHERELLE TITATIVE HCG NORMAL RANGES Weeks of Gestation (Weeks Since LMP) 3 Weeks (5.8-71.2 mIU/mL) 4 Weeks (9.5-750 mIU/mL) 5 Weeks (217-7138 mIU/mL) 6 Weeks (158-99907 mIU/mL) 7 Weeks (3697-334867 mIU/mL) 8 Weeks (79636-348377 mIU/mL) 9 Weeks (57706-817999 mIU/mL) 10 Weeks (21921-323506 mIU/mL) 12 Weeks (94040-447756 mIU/mL) Referenced to 4th IS of [facility] Performed By: #### 2 1198-7 ####[facility] LABCLIA [id number] [address] OF [facility] CNPIzzy 01-25-2024 BRANDON Telephone (OBGYWM) ----- LAINA DE LEÓN ([id number]) 1995 F CHT Date Time Provider Department [...] Shortness of Breath Comments: given medication at [facility] and reacted PEANUTS 12/18/2014 7 - Swelling Comments: redness Date Reviewed: 09/13/2023 Reviewed by: Maritza Schneider MA - Fully Assessed Reason for Visit: Results [95] Primary Visit Diagnosis:Encounter for test, result positive [Z32.01] Order(s):HCG QUANTITATIVE [SQHCGQT] Order #: [id number] STANDING Prescriptions as of 01/25/2024 - ferrous [...] Status:Closed by INNA HORNE on 01/25/24 Normal [facility] B-HCG SerPl-aCncon 4 HCG.beta subunit Qn 88.1 m[IU]/mL High <5.0 Cl [facility] Comment on above: Order Comment: Speci men Type: BLOOD SPECIMENOrdering Facility: [facility] Address: [address] [place] [address] Result Comment: CHERELLE TITATIVE HCG NORMAL RANGES Weeks of Gestation (Weeks Since LMP) 3 Weeks (5.8-71.2 mIU/mL) 4 Weeks (9.5-750 mIU/mL) 5 Weeks (217-7138 mIU/mL) 6 Weeks (158-85898 mIU/mL) 7 Weeks (3697-719042 mIU/mL) 8 Weeks (33545-600814 mIU/mL) 9 Weeks (63078-653703 mIU/mL) 10 Weeks (02499-295104 mIU/mL) 12 Weeks (84566-832420 mIU/mL) Referenced to 4th IS of [facility] Performed By: #### 2 1198-7 ####[facility] LABCLIA [id number] [address] OF [place] 01-24-2024 CNPN Telephone (OBGYWM) ----- LAINA DEL EÓN ([id number]) 1995 F CHT Date Time Provider Department 01/24/24 KAYY LONGO OBGYWM During your visit today, [...] from her cyst. HCG pending if appropriate. KEYONNA Barrios Renee, APRN.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 01/24/2024 10:18 AM Signed Ordered filed. She can stop by and have that done at any time. Kayy Longo APRN.Mariah Villasenor RN 01/24/2024 10:37 AM Signed Patient notified and voiced understanding. Mariah Bolivar RN Allergies As of Date: 01/24/2024 Noted Allergy Reaction CEFDINIR 04/11/2012 11 - Vomiting MORPHINE 05/15/2013 4 - Hives 12 - Shortness of Breath Comments: given medication at [facility] and reacted PEANUTS 12/18/2014 7 - Swelling Comments: redness Date Reviewed: 09/13/2023 Reviewed by: Maritza Schneider MA - Fully Assessed Reason for Visit: Missed Menses [Other] Primary Visit Diagnosis:Missed menses [N92.6] Order(s):HCG QUANTITATIVE [SQHCGQT] Order #: [id number] FUTURE Prescriptions as of 01/24/2024 - ferrous [...] in second trimester [O9*05/19/2023 Encounter Status:Closed by MARIAH BOLIVAR on 01/24/24 [facility] William 12-17-2023 CNPKeily Telephone (OBGYWM) ----- LAINA DE LEÓN ([id number]) 1995 F T Date Time Provider Department 12/17/23 KAYY LONGO OBGYWM During your visit today, we recorded the following information about you: Kayy Longo APRN.CNP 12/17/2023 7:50 AM Signed Please let the patient know that the ovarian cyst has slightly increased in size I would like to repeat the ultrasound in another 12 weeks. Please review torsion precautions with patient. THU Lynn Annalee, LPN 12/17/2023 9:01 AM Signed Left message to call office Klarissa Soto RN 12/28/2023 8:48 AM Signed Left message for patient to call office or check mychart. Klarissa Soto RN Allergies As of Date: 12/17/2023 Noted Allergy Reaction CEFDINIR 04/11/2012 11 - Vomiting MORPHINE 05/15/2013 4 - Hives 12 - Shortness of Breath Comments: given medication at [facility] ER and reacted PEANUTS 12/18/2014 7 - Swelling Comments: redness Date Reviewed: 09/13/2023 Reviewed by: Maritza Schneider MA - Fully Assessed Reason for Visit: Results [95] Primary Visit Diagnosis:Ovarian cyst, left [N83.202] Order(s):PELVIC US WHI [[id number]] Order #: [id number]: 1 FUTURE Prescriptions as of 12/28/2023 - [...] in second trimester [O9*05/19/2023 Encounter Status:Closed by KLARISSA SOTO on 12/28/23 Normal [facility] US Pelvison 12-16-2023 Indication Follow-up on ovarian [...] Performed By: Niki Lucio RDMS Read By: Pamela Greene M.D. MATERNAL MEDICINE [facility] Radiology Study observation (narrative) [facility] 10-04-2023 BRANDON Telephone (OBGYWM) ----- LAINA DE LEÓN ([id number]) 1995 F T Date Time Provider Department 10/04/23 KAYY LONGO OBCHI During your visit today, we recorded the [...] No treatment at this time. Kayy Longo APRN.Laina Cristobal RN 10/04/2023 2:28 PM Signed Pt notified and pelvic u/s appt made. Laina Cardoza RN Allergies As of Date: 10/04/2023 Noted Allergy Reaction CEFDINIR 04/11/2012 11 - Vomiting MORPHINE 05/15/2013 4 - Hives 12 - Shortness of Breath Comments: given medication at [facility] and reacted PEANUTS 12/18/2014 7 - Swelling Comments: redness Date Reviewed: 09/13/2023 Reviewed by: Maritza Schneider MA - Fully Assessed Reason for Visit: Results [95] Primary Visit Diagnosis:Ovarian cyst, left [N83.202] Order(s):PELVIC US WHI [[id number]] Order #: [id number]: 1 FUTURE Prescriptions as of 10/04/2023 - [...] in second trimester [O9*05/19/2023 Encounter Status:Closed by LAINA CARDOZA on 10/04/23 Normal [facility] US Pelvison 10-02-2023 Indication Pelvic pain- left lower [...] Performed By: Niki Lucio RDMS Read By: Pamela Greene M.D. MATERNAL MEDICINE [facility] US [place]vison 10-01-2023 Radiology Study observation (narrative) [facility] MR/BMS.BBCon 08-17-2023 MR/HARPREET.[facility] [address] [place] [address] OFFICE VISIT Date of Service: 08/11/23 MR#: [id number] Acct: [id number] Name: LAINA DE LEÓN Rep #: [id number] : 1995 Provider: Margaret Clay NP Age/Sex: 28/F Location: [facility] Status: Signed Intake Vital Signs 07/04/23 07:11 [...] # of living children HPI HPI HPI: LAINA DE LEÓN, is a 28 F who presents to [...] assist from staff, mother able to position/hold infant (2) Total Score Total Score:: 10 Observation [...] as needed. Coding Level of Care Code 60653 PRVT COUNSELING INDIVID Diagnoses Care and examination of lactating mother Z39.1 Time Spent (min) 15 08/17/23 0959 Date Margaret Clay IMAGING TECHNICIAN IMAGING TECHNICIAN-C Cosigner Signature: Date (if applicable) CC: Normal [facility] Bedside Glucoseon 07-05-2023 FINGERSTICK GLU 74 mg/dL Normal 74-106 [facility] Comment on above: Result Comment: BETO MCKNIGHT OF PATIENT CARE PER NURSING PROTOCOL Performed By: #### L 501.080 #### [facility] Laboratory [address] [place], [address] Thin prep Papanicolaou smear with manual screeningOrdered By: Sandra Edwards on 07-05-2023 Thin prep Papanicolaou smear with manual screening 74 mg/dL 74-106 [facility] Comment on above: MANAGEMENT OF PATIEN T CARE PER NURSING PROTOCOL (ROM) Rupture Of Membraneson 07-04-2023 C-LINE PRESENT? Normal Internal QC [facility] Comment on above: Result Comment: NOT NEEDED PER WP Performed By: #### B [id number], BTS, L100.0100 #### [facility] [address] [place], [place], [address] RECORD KIT LOT# Normal [facility] Comment on above: Result Comment: NOT NEEDED PER WP Performed By: #### B [id number], BTS, L100.0100 #### [facility] [address] [place], [place], [id number] ROM Normal Negative [facility] Comment on above: Result Comment: NOT NEEDED PER WP Performed By: #### B [id number], BTS, L100.0100 #### [facility] [address] [place], [place], [id number] Absolute lymphocyte countOrd ered By: Sandra Edwards on 07-04-2023 Lymphocytes Auto (Unsp spec) [#/Vol] 2.09 10*3/uL 0.83-4.51 [facility] Activated partial thrombopla stin time (aPTT) in platelet poor plasma by coagulation aOrdered By: Sandra Edwards on 07-04-2023 aPTT Coag (PPP) [Time] 27.3 s 24.1-36.2 [facility] Automated blood erythrocyte count (number/volume)Ordered By: Sandra Edwards on 07-04-2023 RBC (Bld) [#/Vol] 4.09 10*6/uL Low 4.2-5.4 [facility] Comment on above: Performed By: #### B [id number], BTS, L100.0100 #### [facility] [address] [place], [place], [id number] Automated blood hematocrit ( percentage)Ordered By: Sandra Edwards on 07-04-2023 Hematocrit (Bld) [Volume fraction] 34.3 % Low 37-47 [facility] Comment on above: Performed By: #### B [id number], BTS, L100.0100 #### [facility] [address] [place], [address] Automated lymphocyte count a s percentage of total leukocytesOrdered By: Sandra Edwards on 07-04-2023 Lymphocytes/100 WBC Auto (Unsp spec) 16.4 % 19-41 [facility] [id number] 07-04-2023 ANTIBODY ID D Normal [facility] Comment on above: Order Comment: Labor Performed By: #### B [id number], BTS, L100.0100 #### [facility] [address] [place], [address] BRho(D) IGon 07-04-2023 Rho(D) IG Normal [facility] Comment on above: Result Comment: [id number] Rho(D) IG PRSMD TRFSD 07/04/23 1825 Performed By: #### B [id number], BTS, L100.0100 #### [facility] [address] [place], [address] Basophil percentageOrdered B y: Sandra Edwards on 07-04-2023 Basophils/100 WBC (Bld) 0.4 % Normal 0-1 [facility] Comment on above: Performed By: #### B [id number], BTS, L100.0100 #### [facility] [address] [place], [address] Eosinophils/100 WBC (Bld) 0.7 % Normal 0-5 [facility] Comment on above: Performed By: #### B [id number], BTS, L100.0100 #### [facility] [address] [place], [address] Hemoglobin (Bld) [Mass/Vol] 10.6 g/dL Low 12.0-15.0 [facility] Comment on above: Performed By: #### B [id number], BTS, L100.0100 #### [facility] [address] [place], [address] Monocytes/100 WBC (Bld) 7.4 % Normal 0-10 [facility] Comment on above: Performed By: #### B [id number], BTS, L100.0100 #### [facility] [address] [place], [address] Neutrophils/100 WBC (Bld) 74.6 % High 47-70 [facility] Comment on above: Performed By: #### B [id number], BTS, L100.0100 #### [facility] [address] [place], [address] WBC (Bld) [#/Vol] 12.7 10*3/uL High 4.4-11.0 [facility] Comment on above: Performed By: #### B [id number], BTS, L100.0100 #### [facility] [address] [place], [address] Neutrophils (Bld) [#/Vol] 9.5 10*3/uL 2.0-7.7 [facility] Bedside Glucoseon 07-04-2023 FINGERSTICK GLU 124 mg/dL High 74-106 [facility] Comment on above: Result Comment: BETO GEMENT OF PATIENT CARE PER NURSING PROTOCOL Performed By: #### L 501.080 #### [facility] Laboratory [address] [place], [address] FINGERSTICK GLU 66 mg/dL Low 74-106 [facility] Comment on above: Result Comment: BETO GEMENT OF PATIENT CARE PER NURSING PROTOCOL Performed By: #### L 501.080 #### [facility] Laboratory [address] [place], [address] FINGERSTICK GLU 71 mg/dL Low 74-106 [facility] Comment on above: Result Comment: BETO GEMENT OF PATIENT CARE PER NURSING PROTOCOL Performed By: #### B [id number], BTS, L100.0100 #### [facility] Laboratory [address] [place], [address] FINGERSTICK GLU 75 mg/dL Normal 74-106 [facility] Comment on above: Result Comment: BETO GEMENT OF PATIENT CARE PER NURSING PROTOCOL Performed By: #### L 501.080 #### [facility] Laboratory [address] [place], [address] CBC W/Diff, Automatedon 04-2 Absolute Lymph 2.09 X10 3/uL Normal 0.83-4.51 [facility] Comment on above: Performed By: #### B [id number], BTS, L100.0100 #### [facility] Laboratory [address] [place], [address] Absolute Neut 9.5 X10 3/uL High 2.0-7.7 [facility] Comment on above: Performed By: #### B [id number], BTS, L100.0100 #### [facility] Laboratory [address] [place], [address] IG% 0.500 Normal 0.0-0.9 [facility] Comment on above: Result Comment: IG% - Immature Granulocytes (promyelocytes, myelocytes and metamyelocytes) > 1% indicates that a LEFT SHIFT is Present. Performed By: #### B [id number], BTS, L100.0100 #### [facility] Laboratory [address] [place], [address] Lymphocytes/100 WBC (Bld) 16.4 % Low 19-41 [facility] Comment on above: Performed By: #### B [id number], BTS, L100.0100 #### [facility] Laboratory [address] [place], [address] Nucleated RBC (Bld) [#/Vol] 0 10*3/uL Normal 0-5 [facility] Comment on above: Performed By: #### B [id number], BTS, L100.0100 #### [facility] Laboratory [address] [place], [address] RDW SD 61.1 fl High 35.1-43.9 [facility] Comment on above: Performed By: #### B [id number], BTS, L100.0100 #### [facility] Laboratory [address] [place], [address] CBC W/Diff, AutomatedOrdered By: Sandra Edwards on 07-04-2023 MCH (RBC) [Entitic mass] 25.9 pg Low 27.0-32.0 [facility] Comment on above: Performed By: #### B [id number], BTS, L100.0100 #### [facility] Laboratory [address] [place], [address] MCHC (RBC) [Mass/Vol] 30.9 g/dL Low 32-36 [facility] Comment on above: Performed By: #### B [id number], BTS, L100.0100 #### [facility] Laboratory [address] [place], [address] Platelet mean volume (Bld) [Entitic vol] 10.0 fL Normal 6.2-12.0 [facility] Comment on above: Performed By: #### B [id number], BTS, L100.0100 #### [facility] Laboratory [address] [place], [address] Platelets (Bld) [#/Vol] 285 10*3/uL Normal 150-450 [facility] Comment on above: Performed By: #### B [id number], BTS, L100.0100 #### [facility] Laboratory [address] [place], [address] Determination of erythrocyte mean corpuscular volume (MCV)Ordered By: Sandra Edwards on 07-04-2023 MCV (RBC) [Entitic vol] 83.9 fL Normal 81-99 [facility] Comment on above: Performed By: #### B [id number], BTS, L100.0100 #### [facility] Laboratory [address] [place], [address] Erythrocyte distribution wid th ratioOrdered By: Sandra Edwards on 07-04-2023 Erythrocyte distribution width (RBC) [Ratio] 19.9 % High 11.6-14.6 [facility] Comment on above: Performed By: #### B [id number], BTS, L100.0100 #### [facility] Laboratory [address] [place], [address] Erythrocyte distribution wid th standard deviationOrdered By: Sandra Edwards on 07-04-2023 Erythrocyte distribution width (RBC) [Entitic vol] 61.1 fL 35.1-43.9 [facility] FibrinogenOrdered By: Sandra jackson on 07-04-2023 Fibrinogen 529 mg/dl High 203-444 [facility] Comment on above: Performed By: #### L 300.4700, L300.3900, L300.4310 #### [facility] Laboratory [address] 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 Mitchell with ctx's q 1-3 min, however patient comfortable appearing and cervix posterior - Discussed risk of prematurity with delivery at this gestational age - Discussed would not recommend BMZ for lung maturity given insulin requiring GDM and 36w5d (2) Gestational diabet (more content not included)... Normal [place] [facility] Immature granulocytes/100 WB C Auto (Bld)Ordered By: Sandra Edwards on 07-04-2023 Immature granulocytes/100 WBC (Bld) 0.500 % 0.0-0.9 [facility] Comment on above: IG% - Immature Granu locytes (promyelocytes, myelocytes and metamyelocytes) > 1% indicates that a LEFT SHIFT is Present. L509.8000on 07-04-2023 Syphilis Abs Non-Reactive Normal [facility] Comment on above: Performed By: #### B [id number], BTS, L100.0100 #### [facility] Laboratory [address] [place], [place], [address] Laboratory - CoagulationOrde red By: Sandra Edwards on 07-04-2023 INR Coag (Bld) [Relative time] 1.1 {INR} [facility] Laboratory - Hematology and Cell countsOrdered By: Sandra Edwards on 07-04-2023 Nucleated RBC/100 WBC (Bld) [Ratio] 0 % 0-5 [facility] Operative Reporton 4 Operative Report [facility] Medical Records Department [address] [place] [address] Operative Report 07/04/23 1542 MR#: [id number] Acct: [id number] Name: LAINA DE LEÓN Rep #: [id number] : 1995 28 From: Sandra Edwards DO PCP: SHAYY Alejandro Status:ADM IN Location: [id number] Problems Associated Problem List Diagnoses (1) Vaginal [...] Special Medications: None Specimen's removed: Placenta Drains: Gueavra Estimated Blood Loss (mL): 100 Fluids Replaced: N/A Description of Procedure: Patient complete and pushing. Head of infant delivered in right occiput anterior position, followed by the shoulders and body spontaneously. A vigorous viable female infant was delivered atraumatically without any force, traction, [...] Documentation VTE Present on Admission: No 07/04/23 4446 Cosigner Signature (if applicable): CC: Dr. Sandra Edwards, ; SHAYY Alejandro Signed Normal [facility] Partial Thromboplast Timeon 07-04-2023 aPTT Coag (Bld) [Time] 27.3 s Normal 24.1-36.2 [facility] Comment on above: Performed By: #### L 300.4700, L300.3900, L300.4310 #### [facility] Laboratory [address] [place], [place], [address] Pathology Specimen OBon 06-14 PATH. Spec OB SEE PATHOLOGY REPORT Normal [facility] Comment on above: Order Comment: Send Specimen For (Specify): Studies @ [facility] Lab:RoutineTime of Procedure: 1524Date of Procedure: 07/04/23Reason specimen being sent to pathology (Hx/complications):Possible abruptionType of specimen: PlacentaType of procedure performed: Other Result Comment: Spec imen submitted to Anatomical Pathology Department for testing. Performed By: #### B [id number], BTS, L100.0100 #### [facility] Laboratory [address] [place], [address] Prothrombin Time w/INRon 04- 21-2024 INR Coag (PPP) [Relative time] 1.1 {INR} Normal [facility] Comment on above: Performed By: #### L 300.4700, L300.3900, L300.4310 #### [facility] Laboratory [address] [place], [address] Prothrombin Time w/INROrdere d By: Sandra Edwards on 07-04-2023 PT Coag (PPP) [Time] 14.0 s Normal 11.7-14.9 [facility] Comment on above: Performed By: #### L 300.4700, L300.3900, L300.4310 #### [facility] Laboratory [address] [place], [address] Rh Negative Mom Workupon ABO and Rh group Nom (Bld) Blood group A Rh(D) positive [facility] Comment on above: Order Comment: Labor Performed By: #### B [id number], BTS, L100.0100 #### [facility] Laboratory [address] [place], [address] DIRECT ANTIGLOB Negative Normal NEGATIVE [facility] Comment on above: Order Comment: Labor Performed By: #### B [id number], BTS, L100.0100 #### [facility] Laboratory [address] [place], [address] SCREEN Negative Normal NEGATIVE [facility] Comment on above: Order Comment: Labor Performed By: #### B [id number], BTS, L100.0100 #### [facility] Laboratory [address] [place], [address] ABO and Rh group Nom (Bld) Blood group A Rh(D) negative [facility] Comment on above: Order Comment: Labor Performed By: #### B [id number], BTS, L100.0100 #### [facility] Laboratory [address] [place], [address] MOM'S ABS Negative Normal [facility] Comment on above: Order Comment: Labor Performed By: #### B [id number], BTS, L100.0100 #### [facility] Laboratory [address] [place], [address] ABO and Rh group Nom (Bld) Test Not Performed Normal [facility] Comment on above: Order Comment: Labor Result Comment: Canc elled via OM: Order edited - Discontinuing original order Performed By: #### B [id number], BTS, L100.0100 #### [facility] Laboratory [address] [place], [address] DIRECT ANTIGLOB Not performed Normal NEGATIVE [facility] Comment on above: Order Comment: Labor Result Comment: Canc elled via OM: Order edited - Discontinuing original order Performed By: #### B [id number], BTS, L100.0100 #### [facility] Laboratory [address] [place], [address] SCREEN Not performed Normal NEGATIVE [facility] Comment on above: Order Comment: Labor Result Comment: Canc elled via OM: Order edited - Discontinuing original order Performed By: #### B [id number], BTS, L100.0100 #### [facility] Laboratory [address] [place], [address] MOM'S ABS Not performed Normal [facility] Comment on above: Order Comment: Labor Result Comment: Canc elled via OM: Order edited - Discontinuing original order Performed By: #### B [id number], BTS, L100.0100 #### [facility] Laboratory [address] [place], [address] Serum Treponema species anti body detectionOrdered By: Sandra Edwards on 07-04-2023 Treponema sp Ab Ql (S) Non-Reactive [facility] Surgery Specimen Level Von 0 07-04-2023 Surgery Specimen Level V Patient Age/Sex Location Account Attending Physician LAINA DE LEÓN / [id number] Dr. Sandra Edwards DO Specimen: [id number] Received: 07/05/23-1025 Status: JIMI Graham Num: [id number] Spec Type: PLACENTA Subm Dr: Dr. Sandra [...] None Patient Age/Sex Location Account Attending Physician LAINA DE LEÓN / [id number] Dr. Sandra Edwards DO PLACENTAL DISC - [...] disc, and maternal surfaces MOI/ 07/06/2023TC:4 CPT: 78317 Patient Age/Sex Location Account Attending Physician LAINA DE LEÓN [id number] Dr. Sandra Edwards, DO Signed (signature on file) Dr. Jean Claude Godinez MD 07/07/23 1228 Normal [facility] Comment on above: Performed By: #### B [id number], Online DealerS, L100.0100 #### [facility] Laboratory [address] [place], [place], [id number] Type AND Screenon 07-04-2023 ABO and Rh group Nom (Bld) Blood group A Rh(D) negative Normal [facility] Comment on above: Order Comment: Labor Performed By: #### B [id number], BTS, L100.0100 #### [facility] Laboratory [address] [place], [place], [address] AST(SGOT)on 07-02-2023 AST [Catalytic activity/Vol] 14 U/L Low 15-37 [facility] Comment on above: Performed By: #### Brian [id number], BTS, L100.0100 #### [facility] Laboratory [address] [place], [place], [address] Alanine Aminotransferas (SGP T)on 07-02-2023 ALT [Catalytic activity/Vol] 14 U/L Normal 13-56 [facility] Comment on above: Performed By: #### B [id number], BTS, L100.0100 #### [facility] Laboratory [address] [place], [address] Basophil percentageOrdered B y: Sandra Edwards on 07-02-2023 Hemoglobin (Bld) [Mass/Vol] 10.5 g/dL 12.0-15.0 [facility] WBC (Bld) [#/Vol] 9.0 10*3/uL 4.4-11.0 [facility] Blood manual differential co mment interpretation (narrative result)Ordered By: Sandra Edwards on 07-02-2023 Manual differential comment Carlos (Bld) [Interp] SEE COMMENTS [facility] Comment on above: RARE ANISOCYTOSISRAR E MACROCYTOSIS CBC-Complete Blood Cnt No Di ffon 07-02-2023 Erythrocyte distribution width (RBC) [Ratio] 20.1 % High 11.6-14.6 [facility] Comment on above: Performed By: #### B [id number], BTS, L100.0100 #### [facility] Laboratory [address] [place], [address] Hematocrit (Bld) [Volume fraction] 34.9 % Low 37-47 [facility] Comment on above: Performed By: #### B [id number], BTS, L100.0100 #### [facility] Laboratory [address] [place], [address] Hemoglobin (Bld) [Mass/Vol] 10.5 g/dL Low 12.0-15.0 [facility] Comment on above: Performed By: #### B [id number], BTS, L100.0100 #### [facility] Laboratory [address] [place], [address] MCH (RBC) [Entitic mass] 26.0 pg Low 27.0-32.0 [facility] Comment on above: Performed By: #### B [id number], BTS, L100.0100 #### [facility] Laboratory [address] [place], [address] MCHC (RBC) [Mass/Vol] 30.1 g/dL Low 32-36 [facility] Comment on above: Performed By: #### B [id number], BTS, L100.0100 #### [facility] Laboratory [address] [place], [address] MCV (RBC) [Entitic vol] 86.4 fL Normal 81-99 [facility] Comment on above: Performed By: #### B [id number], BTS, L100.0100 #### [facility] Laboratory [address] [place], [address] Platelet mean volume (Bld) [Entitic vol] 10.2 fL Normal 6.2-12.0 [facility] Comment on above: Performed By: #### B [id number], BTS, L100.0100 #### [facility] Laboratory [address] [place], [address] Platelets (Bld) [#/Vol] 288 10*3/uL Normal 150-450 [facility] Comment on above: Performed By: #### B [id number], BTS, L100.0100 #### [facility] Laboratory [address] [place], [address] RBC (Bld) [#/Vol] 4.04 10*6/uL Low 4.2-5.4 [facility] Comment on above: Performed By: #### B [id number], BTS, L100.0100 #### [facility] Laboratory [address] [place], [address] RDW SD 63.0 fl High 35.1-43.9 [facility] Comment on above: Performed By: #### B [id number], BTS, L100.0100 #### [facility] Laboratory [address] [place], [address] WBC (Bld) [#/Vol] 9.0 10*3/uL Normal 4.4-11.0 [facility] Comment on above: Performed By: #### B [id number], BTS, L100.0100 #### [facility] Laboratory [address] [place], [address] Determination of erythrocyte mean corpuscular volume (MCV)Ordered By: Sandra Edwards on 07-02-2023 MCV (RBC) [Entitic vol] 86.4 fL 81-99 [facility] Differential Commenton 07-01 SMEAR COMMENT SEE COMMENTS Normal [facility] Comment on above: Result Comment: RARE ANISOCYTOSIS RARE MACROCYTOSIS Performed By: #### B [id number], BTS, L100.0100 #### [facility] Laboratory [address] [place], [address] Erythrocyte distribution wid th ratioOrdered By: Sandra Edwards on 07-02-2023 Erythrocyte distribution width (RBC) [Ratio] 20.1 % 11.6-14.6 [facility] Erythrocyte distribution wid th standard deviationOrdered By: Sandra Edwards on 07-02-2023 Erythrocyte distribution width (RBC) [Entitic vol] 63.0 fL 35.1-43.9 [facility] Biophysical profile.hope dy movement USon 07-02-2023 [facility] Hematocrit Auto (Bld) [Volum e fraction]Ordered By: Sandra Edwards on 07-02-2023 Hematocrit (Bld) [Volume fraction] 34.9 % 37-47 [facility] Laboratory - Chemistry and C hemistry - challengeOrdered By: Sandra Edwards on 07-02-2023 ALT [Catalytic activity/Vol] 14 U/L 13-56 [facility] Laboratory - Hematology and Cell countsOrdered By: Sandra Edwards on 07-02-2023 MCH (RBC) [Entitic mass] 26.0 pg 27.0-32.0 [facility] MCHC (RBC) [Mass/Vol] 30.1 g/dL 32-36 [facility] Platelet mean volume (Bld) [Entitic vol] 10.2 fL 6.2-12.0 [facility] Platelets (Bld) [#/Vol] 288 10*3/uL 150-450 [facility] No Panel InformationOrdered By: Sandra Edwards on 07-02-2023 Estimated GFR (MDRD) Amer 117 mL/min >60 [facility] Comment on above: GFR Calc Estimated GFR (MDRD) Non-Af Amer 96 mL/min >60 [facility] Comment on above: Non- GFR Calc OB Triage Physician Noteon 0 07-02-2023 OB Triage Physician Note [facility] Medical Records Department [address] [place] [address] OB Triage Physician Note 07/02/23 1548 MR#: [id number] Acct: [id number] Name: LAINA DE LEÓN Rep #: [id number] : 1995 28 From: Sandra Edwards DO PCP: SHAYY Alejandro Status:REG CLI Y Location: [place] [id number] HPI - General General Date of Admission: 07/02/23 Date of Service: 07/02/23 Chief Complaint: rule out pre e HPI Narrative LAINA DE LEÓN, is a 28 F who [...] weeks. (2) Headache in : 07/02/23 1558 Date Sandra Edwards DO Cosigner Signature (if applicable): Date CC: Dr. Sandra Edwards DO; SHAYY Alejandro Signed ADDENDUM by Dr. Sandra Edwards DO on 07/02/23 at 1600 Addendum Has nausea and light sensitivity with headache. 07/02/23 1600 Date Sandra Edwards DO cc: Dr. Sandra Edwards DO; SHAYY Alejandro * Signed Normal [facility] OB Triage Physician Note [facility] Medical Records Department [address] [place] [address] OB Triage Physician Note 07/02/23 1521 MR#: [id number] Acct: [id number] Name: LAIAN DE LEÓN Rep #: [id number] : 1995 28 From: Sandra Edwards DO PCP: SHAYY Alejandro Status:REG CLI Y Location: [id number] HPI - General General Date of Admission: 07/02/23 Date of Service: 07/02/23 Chief Complaint: rule out pre e HPI Narrative LAINA DE LEÓN, is a 28 F who presents with headache, vision changes that resolve when she removes her glasses, RUQ pain when she pushes on her abdomen. The headache has been present for days and is noted at her last visit. Maternal Data Information BELEM Calculator Estimated Delivery Date Method Current WG Current Estimate 07/27/23 Manual 36w 3d PFSH [facility] Medical History Gestational diabetes Gestational diabetes Home [...] of living children 07/02/23 1523 Date Sandra Morrison Signature (if applicable): Date CC: Dr. Sandra Edwards, DO; SHAYY Alejandro Signed Normal [facility] Protein+Creatinine Ratio,Uri neon 07-02-2023 PROT:CRE RATIO 270 mg/g CRE High 0-200 [facility] Comment on above: Performed By: #### B [id number], BTS, L100.0100 #### [facility] Laboratory [address] [place], [address] Protein (U) [Mass/Vol] 39.1 mg/dL High <11.9 [facility] Comment on above: Performed By: #### B [id number], BTS, L100.0100 #### [facility] Laboratory [address] [place], [address] UR CREAT 145.00 mg/dL Normal NO RANGE EST. [facility] Comment on above: Performed By: #### B [id number], BTS, L100.0100 #### [facility] Laboratory [address] [place], [address] RBC Auto (Bld) [#/Vol]Ordere d By: Sandra Edwards on 07-02-2023 RBC (Bld) [#/Vol] 4.04 10*6/uL 4.2-5.4 [facility] Serum Creatinine AND GFRon 0 07-02-2023 Creatinine [Mass/Vol] 0.76 mg/dL Normal 0.55-1.02 [facility] Comment on above: Result Comment: The validity of the calculated GFR GFRAA in patients over 70 years has not been determined. Clinical correlation is essential. Performed By: #### B [id number], BTS, L100.0100 #### [facility] Laboratory [address] [place], [address] EST GFR - AA 117 mL/min Normal >60 [facility] Comment on above: Result Comment: Afri can [place] GFR Calc Performed By: #### B [id number], BTS, L100.0100 #### [facility] Laboratory [address] [place], [address] GFR/1.73 sq M.predicted among non-blacks MDRD (S/P/Bld) [Vol rate/Area] 96 mL/min/{1.73_m2} Normal >60 [facility] Comment on above: Result Comment: Non- GFR Calc Performed By: #### B [id number], BTS, L100.0100 #### [facility] Laboratory [address] [place], [address] Serum or plasma creatinine m easurement (mass/volume)Ordered By: Sandra Edwards on 07-02-2023 Creatinine [Mass/Vol] 0.76 mg/dL 0.55-1.02 [facility] Comment on above: The validity of the calculated GFR & GFRAA in patients over 70 years has not been determined. Clinical correlation is essential. Serum or plasma uric acid me asurement (mass/volume)Ordered By: Sandra Edwards on 07-02-2023 Urate [Mass/Vol] 3.4 mg/dL 2.6-6.0 [facility] Comment on above: The drugs N-Acetylcy steine and Metamizole may falsely depress this assay. Thin prep Papanicolaou smear with manual screeningOrdered By: Sandra Edwards on 07-02-2023 Protein (U) [Mass/Vol] 39.1 mg/dL 0.0-11.8 [facility] Thin prep Papanicolaou smear with manual screening 14 U/L 15-37 [facility] Uric Acidon 07-02-2023 URIC 3.4 mg/dL Normal 2.6-6.0 [facility] Comment on above: Result Comment: The drugs N-Acetylcysteine and Metamizole may falsely depress this assay. Performed By: #### B [id number], BTS, L100.0100 #### [facility] [address] [place], [address] Urine creatinine measurement (mass/volume)Ordered By: Sandra Edwards on 07-02-2023 Creatinine (U) [Mass/Vol] 145.00 mg/dL NO RANGE EST. [facility] Urine protein/creatinine mas s ratioOrdered By: Sandra Edwards on 07-02-2023 Protein/Creatinine (U) [Mass ratio] 270 mg/g CRE 0-200 [facility] URINE OB DIP B/Oon Glucose Ql (U) Negative Neg mg/dL [facility] Protein.monoclonal (U) [Mass/Vol] trace Neg mg/dL [facility] Examination level ultrasound on 06-25-2023 [facility] CBC panel Auto (Bld)on 06-20 Erythrocyte distribution width (RBC) [Ratio] 21.0 % High 11.5 - 15.0 % [facility] Hematocrit (Bld) [Volume fraction] 33.9 % Low 36.0 - 46.0 % [facility] Hemoglobin (Bld) [Mass/Vol] 10.6 g/dL Low 11.5 - 15.5 g/dL [facility] MCH (RBC) [Entitic mass] 26.2 pg 26.0 - 34.0 pg [facility] MCHC (RBC) [Mass/Vol] 31.3 g/dL 30.5 - 36.0 g/dL [facility] MCV (RBC) [Entitic vol] 83.9 fL 80.0 - 100.0 fL [facility] Nucleated RBC (Bld) [#/Vol] <0.01 k/uL [facility] Platelet mean volume (Bld) [Entitic vol] 9.8 fL 9.0 - 12.7 fL [facility] Platelets (Bld) [#/Vol] 285 10*3/uL 150 - 400 k/uL [facility] RBC (Bld) [#/Vol] 4.04 10*6/uL 3.90 - 5.2 0 m/uL [facility] WBC (Bld) [#/Vol] 7.32 10*3/uL 3.70 - 11. 00 k/uL [facility] Comprehensive metabolic 2000 panelon 06-21-2023 Albumin [Mass/Vol] 3.3 g/dL Low 3.9 - 4.9 g/dL [facility] ALP [Catalytic activity/Vol] 133 U/L High 34 - 123 U/L [facility] ALT [Catalytic activity/Vol] 13 U/L 7 - 38 U/L [facility] Anion gap [Moles/Vol] 8 mmol/L Low 9 - 18 mmol/L [facility] AST [Catalytic activity/Vol] 12 U/L Low 13 - 35 U/L [facility] Bilirubin [Mass/Vol] Low 0.2 - 1 .3 mg/dL [facility] Calcium [Mass/Vol] 8.7 mg/dL 8.5 - 10. 2 mg/dL [facility] Chloride [Moles/Vol] 107 mmol/L High 97 - 10 5 mmol/L [facility] CO2 [Moles/Vol] 23 mmol/L 22 - 30 mmol/L [facility] Creatinine [Mass/Vol] 0.40 mg/dL Low 0.58 - 0.96 mg/dL [facility] Estimated Glomerular Filtration Rate 140 mL/min/1.73m >=60 mL/min/1.73m [facility] Glucose [Mass/Vol] 87 mg/dL 74 - 99 mg/dL [facility] Potassium [Moles/Vol] 3.6 mmol/L Low 3.7 - 5.1 mmol/L [facility] Protein [Mass/Vol] 6.3 g/dL 6.3 - 8.0 g/dL [facility] Sodium [Moles/Vol] 138 mmol/L 136 - 144 mmol/L [facility] Urea nitrogen [Mass/Vol] 8 mg/dL 7 - 21 mg/dL [facility] URINE OB DIP B/Oon 4 Glucose Ql (U) Negative Neg mg/dL [facility] Protein.monoclonal (U) [Mass/Vol] Negative Neg mg/dL [facility] Biophysical profile.hope dy movement USon 06-18-2023 [facility] URINE OB DIP B/Oon 4 Glucose Ql (U) Negative Neg mg/dL [facility] Protein.monoclonal (U) [Mass/Vol] Negative Neg mg/dL [facility] Thin prep Papanicolaou smear with manual screeningOrdered By: Sandra Lopez on 06-11-2023 Thin prep Papanicolaou smear with manual screening 88 mg/dL 74-106 [facility] Comment on above: MANAGEMENT OF PATIEN T CARE PER NURSING PROTOCOL Thin prep Papanicolaou smear with manual screeningOrdered By: Inna Garcia on 06-10-2023 Thin prep Papanicolaou smear with manual screening 76 mg/dL 74-106 [facility] Comment on above: MANAGEMENT OF PATIEN T CARE PER NURSING PROTOCOL URINE OB DIP B/Oon 4 Glucose Ql (U) Negative Neg mg/dL [facility] Protein.monoclonal (U) [Mass/Vol] Negative Neg mg/dL [facility] Examination level ultrasound on 06-02-2023 [facility] URINE OB DIP B/Oon 4 Glucose Ql (U) Negative Neg mg/dL [facility] Protein.monoclonal (U) [Mass/Vol] Negative Neg mg/dL [facility] Examination level ultrasound on 05-26-2023 [facility] URINE OB DIP B/Oon 4 Glucose Ql (U) Negative Neg mg/dL [facility] Protein.monoclonal (U) [Mass/Vol] trace Neg mg/dL [facility] URINE OB DIP B/Oon 4 Glucose Ql (U) Negative Neg mg/dL [facility] Protein.monoclonal (U) [Mass/Vol] Negative Neg mg/dL [facility] Bilirubin Test strip Ql (U)O rdered By: Kalpana Laguerre on 05-17-2023 Bilirubin Ql (U) Negative Negative [facility] Ketones Test strip Ql (U)Ord ered By: Kalpana Laguerre on 05-17-2023 Ketones Ql (U) 15 mg/dl Negative [facility] Nitrite Test strip Ql (U)Ord ered By: Kalpana Laguerre on 05-17-2023 Nitrite Ql (U) Negative Negative [facility] Protein Test strip Ql (U)Ord ered By: Kalpana Laguerre on 05-17-2023 Protein Ql (U) 15 mg/dl Negative [facility] Thin prep Papanicolaou smear with manual screeningOrdered By: Kalpana Laguerre on 05-17-2023 Thin prep Papanicolaou smear with manual screening 158 mg/dL 74-106 [facility] Comment on above: MANAGEMENT OF PATIEN T CARE PER NURSING PROTOCOL Urine blood detectionOrdered By: Kalpana Laguerre on 05-17-2023 RBC Ql (U) Negative Negative [facility] Urine clarityOrdered By: Veda Laguerre on 05-17-2023 Clarity (U) Clear Clear [facility] Urine color determinationOrd ered By: Kalpana Laguerre on 05-17-2023 Color (U) Yellow Yellow [facility] Urine glucose detectionOrder ed By: Kalpana Laguerre on 05-17-2023 Glucose Ql (U) 250 mg/dl Normal [facility] Urine leukocyte esterase det ection by dipstickOrdered By: Kalpana Laguerre on 05-17-2023 Leukocyte esterase Test strip Ql (U) Negative Negative [facility] Urine pHOrdered By: Kalpana Laguerre on 05-17-2023 pH (U) 7.0 [pH] 5.0 - 8.0 [facility] Urine specific gravity measu rementOrdered By: Kalpana Laguerre on 05-17-2023 Specific gravity (U) [Rel density] 1.010 1.002-1.030 [facility] Urine urobilinogen measureme ntOrdered By: Kalpana Laguerre on 05-17-2023 Urobilinogen Ql (U) 4 mg/dl Normal [facility] URINE OB DIP B/Oon Glucose Ql (U) Negative Neg mg/dL [facility] Protein.monoclonal (U) [Mass/Vol] Negative Neg mg/dL [facility] Absolute lymphocyte countOrd ered By: Jeff Thakur on 04-12-2023 Lymphocytes Auto (Unsp spec) [#/Vol] 2.44 10*3/uL 0.83-4.51 [facility] Automated lymphocyte count a s percentage of total leukocytesOrdered By: Jeff Thakur on 04-12-2023 Lymphocytes/100 WBC Auto (Unsp spec) 21.8 % 19-41 [facility] Basophil percentageOrdered B y: Jeff Thakur on 04-12-2023 Basophil percentage 0-5 SEEN /hpf 0-5 [facility] Basophils/100 WBC (Bld) 0.3 % 0-1 [facility] Bilirubin [Mass/Vol] 0.20 mg/dL 0.20-1.00 [facility] Comment on above: For patients on eltr ombopag therapy, use of Dimension [place] TBIL is not recommended. Chloride [Moles/Vol] 113 mmol/L 98-107 [facility] Eosinophils/100 WBC (Bld) 0.3 % 0-5 [facility] Glucose [Mass/Vol] 86 mg/dL 74-106 [facility] Hemoglobin (Bld) [Mass/Vol] 9.3 g/dL 12.0-15.0 [facility] Monocytes/100 WBC (Bld) 8.2 % 0-10 [facility] Neutrophils (Bld) [#/Vol] 7.7 10*3/uL 2.0-7.7 [facility] Neutrophils/100 WBC (Bld) 69.2 % 47-70 [facility] Potassium [Moles/Vol] 4.0 mmol/L 3.5-5.1 [facility] Protein [Mass/Vol] 6.1 g/dL 6.4-8.2 [facility] Sodium [Moles/Vol] 142 mmol/L 136-145 [facility] WBC (Bld) [#/Vol] 11.2 10*3/uL 4.4-11.0 [facility] Bilirubin Test strip Ql (U)O rdered By: Jeff Thakur on 04-12-2023 Bilirubin Ql (U) Negative Negative [facility] Determination of erythrocyte mean corpuscular volume (MCV)Ordered By: Jeff Thakur on 04-12-2023 MCV (RBC) [Entitic vol] 84.7 fL 81-99 [facility] Erythrocyte distribution wid th ratioOrdered By: Jeff Thakur on 04-12-2023 Erythrocyte distribution width (RBC) [Ratio] 12.8 % 11.6-14.6 [facility] Erythrocyte distribution wid th standard deviationOrdered By: Jeff Thakur on 04-12-2023 Erythrocyte distribution width (RBC) [Entitic vol] 39.5 fL 35.1-43.9 [facility] Hematocrit Auto (Bld) [Volum e fraction]Ordered By: Jeff Thakur on 04-12-2023 Hematocrit (Bld) [Volume fraction] 30.5 % 37-47 [facility] Immature granulocytes/100 WB C Auto (Bld)Ordered By: Jeff Thakur on 04-12-2023 Immature granulocytes/100 WBC (Bld) 0.200 % 0.0-0.9 [facility] Comment on above: IG% - Immature Granu locytes (promyelocytes, myelocytes and metamyelocytes) > 1% indicates that a LEFT SHIFT is Present. Ketones Test strip Ql (U)Ord ered By: Jeff Thakur on 04-12-2023 Ketones Ql (U) Negative Negative [facility] Laboratory - Chemistry and C hemistry - challengeOrdered By: Jeff Thakur on 04-12-2023 Albumin/Globulin [Mass ratio] 0.6 {ratio} 0.9-2.4 [facility] ALP [Catalytic activity/Vol] 104 U/L 45-117 [facility] ALT [Catalytic activity/Vol] 15 U/L 13-56 [facility] CO2 [Moles/Vol] 23.0 mmol/L 21.0-32.0 [facility] Globulin (S) [Mass/Vol] 3.9 g/dL 2.2-4.2 [facility] Urea nitrogen/Creatinine [Mass ratio] 14.7 mg/mg 10-20 [facility] - Hematology and Cell countsOrdered By: Jeff Thakur on 04-12-2023 MCH (RBC) [Entitic mass] 25.8 pg 27.0-32.0 [facility] MCHC (RBC) [Mass/Vol] 30.5 g/dL 32-36 [facility] Nucleated RBC/100 WBC (Bld) [Ratio] 0 % 0-5 [facility] Platelets (Bld) [#/Vol] 273 10*3/uL 150-450 [facility] Mucus LM Ql (Urine sed)Order ed By: Jeff Thakur on 04-12-2023 Mucus Ql (Urine sed) RARE /hpf [facility] Nitrite Test strip Ql (U)Ord ered By: Jeff Thakur on 04-12-2023 Nitrite Ql (U) Negative Negative [facility] No Panel InformationOrdered By: Jeff Thakur on 04-12-2023 Estimated Creatinine Clearance Calc 248.84 ml/min [facility] Estimated GFR (MDRD) Amer 297 mL/min >60 [facility] Comment on above: GFR Calc Estimated GFR (MDRD) Non-Af Amer 245 mL/min >60 [facility] Comment on above: Non- GFR Calc Urine RBC 0 SEEN /hpf 0-5 [facility] Platelet mean volume Paolo-Ec ker (Bld) [Entitic vol]Ordered By: Jeff Thakur on 04-12-2023 Platelet mean volume (Bld) [Entitic vol] 9.6 fL 6.2-12.0 [facility] Protein Test strip Ql (U)Ord ered By: Jeff Thakur on 04-12-2023 Protein Ql (U) Negative Negative [facility] RBC Auto (Bld) [#/Vol]Ordere d By: Jeff Thakur on 04-12-2023 RBC (Bld) [#/Vol] 3.60 10*6/uL 4.2-5.4 [facility] Serum or plasma calcium alia urement (mass/volume)Ordered By: Jeff Thakur on 04-12-2023 Calcium [Mass/Vol] 7.9 mg/dL 8.5-10.1 [facility] Serum or plasma creatinine m easurement (mass/volume)Ordered By: Jeff Thakur on 04-12-2023 Creatinine [Mass/Vol] 0.34 mg/dL 0.55-1.02 [facility] Comment on above: The validity of the calculated GFR & GFRAA in patients over 70 years has not been determined. Clinical correlation is essential. Serum or plasma urea nitroge n measurement (mass/volume)Ordered By: Jeff Thakur on 04-12-2023 Urea nitrogen [Mass/Vol] 5 mg/dL 7-18 [facility] Squamous epithelial cells de tection in urine sediment by light microscopyOrdered By: Jeff Thakur on 04-12-2023 Epithelial cells.squamous LM Ql (Urine sed) 0-5 SEEN /hpf 5-10 [facility] Thin prep Papanicolaou smear with manual screeningOrdered By: Jeff Thakur on 04-12-2023 Thin prep Papanicolaou smear with manual screening 2.2 g/dL 3.2-5.0 [facility] Thin prep Papanicolaou smear with manual screening 13 U/L 15-37 [facility] Thin prep Papanicolaou smear with manual screening 6 15 [facility] Urine blood detectionOrdered By: Jeff Thakur on 04-12-2023 RBC Ql (U) Negative Negative [facility] Urine clarityOrdered By: Abraham Thakur on 04-12-2023 Clarity (U) Clear Clear [facility] Urine color determinationOrd ered By: Jeff Thakur on 04-12-2023 Color (U) Yellow Yellow [facility] Urine glucose detectionOrder ed By: Jeff Thakur on 04-12-2023 Glucose Ql (U) Normal mg/dl Normal [facility] Urine leukocyte esterase det ection by dipstickOrdered By: Jeff Thakur on 04-12-2023 Leukocyte esterase Test strip Ql (U) 100 /ul Negative [facility] Urine pHOrdered By: Jeff butt on 04-12-2023 pH (U) 6.5 [pH] 5.0 - 8.0 [facility] Urine sediment bacteria coun t by microscopy (number/high power field)Ordered By: Jeff Thakur on 04-12-2023 Bacteria LM.HPF (Urine sed) [#/Area] 1 /[HPF] None Seen [facility] Urine specific gravity measu rementOrdered By: Jeff Thakur on 04-12-2023 Specific gravity (U) [Rel density] 1.015 1.002-1.030 [facility] Urine urobilinogen measureme ntOrdered By: Jeff Thakur on 04-12-2023 Urobilinogen Ql (U) 1 mg/dl Normal [facility] No Panel Informationon 12-03 [facility] - Chemistry and C hemistry - challengeOrdered By: Ru Oden on 11-19-2022 HCG ( test) Ql (U) Negative [facility] Comment on above: TEST is *P OSITIVE* Serum or plasma choriogonado tropin detectionOrdered By: Ru Oden on 11-19-2022 HCG ( test) Ql 109 mIU/mL <4 [facility] Comment on above: hCG levels with Gest ational AgeGestational Age hCG mIU/mL (IU/L)0.2 - 1 week 5 - 501-2 weeks 50 - 5002-3 weeks 100 - 65161-5 weeks 500 - 359074-6 weeks 1000 - 296554-4 weeks 96204 - 100,0006-8 weeks 49993 - 200,0002-3 months 23950 - 100,000 Basophil percentageOrdered B y: Ru Oden on 11-17-2022 Basophil percentage 0-5 SEEN /hpf 0-5 [facility] Bilirubin Test strip Ql (U)O rdered By: Ru Oden on 11-17-2022 Bilirubin Ql (U) 1 mg/dL Negative [facility] Comment on above: COLOR OF URINE MAY A FFECT DIPSTICK RESULTS. Ketones Test strip Ql (U)Ord ered By: Ru Oden on 11-17-2022 Ketones Ql (U) 150 mg/dl Negative [facility] Comment on above: CRITICAL VALUE *H Mucus LM Ql (Urine sed)Order ed By: Ru Oden on 11-17-2022 Mucus Ql (Urine sed) 3+ /hpf [facility] Nitrite Test strip Ql (U)Ord ered By: Ru Oden on 11-17-2022 Nitrite Ql (U) Negative Negative [facility] Protein Test strip Ql (U)Ord ered By: Ru Oden on 11-17-2022 Protein Ql (U) 30 mg/dl Negative [facility] Serum or plasma choriogonado tropin detectionOrdered By: Ru Oden on 11-17-2022 HCG ( test) Ql 46 mIU/mL <4 [facility] Comment on above: hCG levels with Gest ational AgeGestational Age hCG mIU/mL (IU/L)0.2 - 1 week 5 - 501-2 weeks 50 - 5002-3 weeks 100 - 55705-9 weeks 500 - 203506-1 weeks 1000 - 979449-3 weeks 93281 - 100,0006-8 weeks 58520 - 200,0002-3 months 93785 - 100,000 Squamous epithelial cells de tection in urine sediment by light microscopyOrdered By: Ru Oden on 11-17-2022 Epithelial cells.squamous LM Ql (Urine sed) 0-5 SEEN /hpf 5-10 [facility] Urine blood detectionOrdered By: Ru Oden on 11-17-2022 RBC Ql (U) Negative Negative [facility] RBC Ql (U) 0 SEEN /hpf 0-5 [facility] Urine clarityOrdered By: Ru Oden on 11-17-2022 Clarity (U) Cloudy Clear [facility] Urine color determinationOrd ered By: Ru Oden on 11-17-2022 Color (U) Yellow Yellow [facility] Urine glucose detectionOrder ed By: Ru Oden on 11-17-2022 Glucose Ql (U) Normal mg/dl Normal [facility] Urine leukocyte esterase det ection by dipstickOrdered By: Ru Oden on 11-17-2022 Leukocyte esterase Test strip Ql (U) 100 /ul Negative [facility] Urine pHOrdered By: Ru romero on 11-17-2022 pH (U) 5.0 [pH] 5.0 - 8.0 [facility] Urine sediment bacteria coun t by microscopy (number/high power field)Ordered By: Ru Oden on 11-17-2022 Bacteria LM.HPF (Urine sed) [#/Area] RARE /hpf None Seen [facility] Urine specific gravity measu rementOrdered By: Ru Oden on 11-17-2022 Specific gravity (U) [Rel density] 1.025 1.002-1.030 [facility] Urobilinogen Auto test strip Ql (U)Ordered By: Ru Oden on 11-17-2022 Urobilinogen Ql (U) 8 mg/dl Normal [facility] US BREAST LTD LEFTon 023 [facility] No Panel Informationon 11-02 [facility] STREP A MOLECULAR (POC)on Procedural Control Valid [facility] Strep A (POCT) Positive Abnormal Negative [facility] CBC W Auto Differential pane l (Bld)on 09-29-2022 Basophils (Bld) [#/Vol] 0.04 10*3/uL Normal <0.11 [facility] Comment on above: Order Comment: Speci men Type: BLOOD SPECIMEN Ordering Facility: [facility] Address: [address] [place] [id number] Performed By: #### 5 7021-8 #### [facility] CLIA [id number] [address] [place] [address] [place] Basophils/100 WBC (Bld) 0.7 % Normal [facility] Comment on above: Order Comment: Speci men Type: BLOOD SPECIMEN Ordering Facility: [facility] Address: [address] [address] Performed By: #### 5 7021-8 #### [facility] CLIA [id number] [place] [address] [place] Differential cell count method Nom (Bld) Auto Normal [facility] Comment on above: Order Comment: Speci men Type: BLOOD SPECIMEN Ordering Facility: [facility] Address: [address] [address] Performed By: #### 5 7021-8 #### [facility] CLIA [id number] [place] [address] [place] Eosinophils (Bld) [#/Vol] 0.15 10*3/uL Normal <0.46 [facility] Comment on above: Order Comment: Speci men Type: BLOOD SPECIMEN Ordering Facility: [facility] Address: [address] [address] Performed By: #### 5 7021-8 #### [facility] CLIA [id number] [place] [address] [place] Eosinophils/100 WBC (Bld) 2.6 % Normal [facility] Comment on above: Order Comment: Speci men Type: BLOOD SPECIMEN Ordering Facility: [facility] Address: [address] [address] Performed By: #### 5 7021-8 #### [facility] CLIA [id number] [place] [address] [place] Erythrocyte distribution width (RBC) [Ratio] 13.3 % Normal 11.5-15.0 [facility] Comment on above: Order Comment: Speci men Type: BLOOD SPECIMEN Ordering Facility: [facility] Address: [address] [address] Performed By: #### 5 7021-8 #### [facility] CLIA [id number] [place] [address] [place] Hematocrit (Bld) [Volume fraction] 40.9 % Normal 36.0-46.0 [facility] Comment on above: Order Comment: Speci men Type: BLOOD SPECIMEN Ordering Facility: [facility] Address: [address] [place] [address] Performed By: #### 5 7021-8 #### [facility] IA [id number] [place] [address] [place] Hemoglobin (Bld) [Mass/Vol] 13.2 g/dL Normal 11.5-15.5 [facility] Comment on above: Order Comment: Speci men Type: BLOOD SPECIMEN Ordering Facility: [facility] Address: [address] [place] [address] Performed By: #### 5 7021-8 #### [facility] IA [id number] [place] [address] [place] Immature granulocytes (Bld) [#/Vol] 10*3/uL Normal <0.10 [facility] Comment on above: Order Comment: Speci men Type: BLOOD SPECIMEN Ordering Facility: [facility] Address: [address] [place] [address] Performed By: #### 5 7021-8 #### [facility] IA [id number] [place] [address] [place] Immature granulocytes/100 WBC (Bld) 0.2 % Normal [facility] Comment on above: Order Comment: Speci men Type: BLOOD SPECIMEN Ordering Facility: [facility] Address: [address] [place] [address] Performed By: #### 5 7021-8 #### [facility] IA [id number] [place] [address] [place] Lymphocytes (Bld) [#/Vol] 2.36 10*3/uL Normal 1.00-4.00 [facility] Comment on above: Order Comment: Speci men Type: BLOOD SPECIMEN Ordering Facility: [facility] Address: [address] [address] Performed By: #### 5 7021-8 #### [facility] CLIA [id number] [place] [address] [place] Lymphocytes/100 WBC (Bld) 40.4 % Normal [facility] Comment on above: Order Comment: Speci men Type: BLOOD SPECIMEN Ordering Facility: [facility] Address: [address] [address] Performed By: #### 5 7021-8 #### [facility] CLIA [id number] [place] [address] [place] MCH (RBC) [Entitic mass] 27.7 pg Normal 26.0-34.0 [facility] Comment on above: Order Comment: Speci men Type: BLOOD SPECIMEN Ordering Facility: [facility] Address: [address] [address] Performed By: #### 5 7021-8 #### [facility] CLIA [id number] [address] [place] MCHC (RBC) [Mass/Vol] 32.3 g/dL Normal 30.5-36.0 [facility] Comment on above: Order Comment: Speci men Type: BLOOD SPECIMEN Ordering Facility: [facility] Address: [address] [address] Performed By: #### 5 7021-8 #### [facility] CLIA [id number] [place] [address] [place] MCV (RBC) [Entitic vol] 85.9 fL Normal 80.0-100.0 [facility] Comment on above: Order Comment: Speci men Type: BLOOD SPECIMEN Ordering Facility: [facility] Address: [address] Performed By: #### 5 7021-8 #### [facility] CLIA [id number] [place] [address] [place] Monocytes (Bld) [#/Vol] 0.52 10*3/uL Normal <0.87 [facility] Comment on above: Order Comment: Speci men Type: BLOOD SPECIMEN Ordering Facility: [facility] Address: [address] [address] Performed By: #### 5 7021-8 #### [facility] CLIA [id number] [place] [address] [place] Monocytes/100 WBC (Bld) 8.9 % Normal [facility] Comment on above: Order Comment: Speci men Type: BLOOD SPECIMEN Ordering Facility: [facility] Address: [address] [address] Performed By: #### 5 7021-8 #### [facility] CLIA [id number] [place] [address] [place] Neutrophils (Bld) [#/Vol] 2.76 10*3/uL Normal 1.45-7.50 [facility] Comment on above: Order Comment: Speci men Type: BLOOD SPECIMEN Ordering Facility: [facility] Address: [address] [address] Performed By: #### 5 7021-8 #### [facility] CLIA [id number] [place] [address] [place] Neutrophils/100 WBC (Bld) 47.2 % Normal [facility] Comment on above: Order Comment: Speci men Type: BLOOD SPECIMEN Ordering Facility: [facility] Address: [address] Performed By: #### 5 7021-8 #### [facility] CLIA [id number] [place] [address] [place] Nucleated RBC (Bld) [#/Vol] 10*3/uL Normal <0.01 [facility] Comment on above: Order Comment: Speci men Type: BLOOD SPECIMEN Ordering Facility: [facility] Address: [address] [address] Performed By: #### 5 7021-8 #### [facility] CLIA [id number] [place] [address] [place] Nucleated RBC/100 WBC (Bld) [Ratio] 0.0 /100 WBC Normal [facility] Comment on above: Order Comment: Speci men Type: BLOOD SPECIMEN Ordering Facility: [facility] Address: [address] [place] [address] Performed By: #### 5 7021-8 #### [facility] CLIA [id number] [place] [address] [place] Platelet mean volume (Bld) [Entitic vol] 10.9 fL Normal 9.0-12.7 [facility] Comment on above: Order Comment: Speci men Type: BLOOD SPECIMEN Ordering Facility: [facility] Address: [address] [place] [address] Performed By: #### 5 7021-8 #### [facility] CLIA [id number] [place] [address] [place] Platelets (Bld) [#/Vol] 323 10*3/uL Normal 150-400 [facility] Comment on above: Order Comment: Speci men Type: BLOOD SPECIMEN Ordering Facility: [facility] Address: [address] [place] [address] Performed By: #### 5 7021-8 #### [facility] CLIA [id number] [place] [address] [place] RBC (Bld) [#/Vol] 4.76 10*6/uL Normal 3.90-5.20 [facility] Comment on above: Order Comment: Speci men Type: BLOOD SPECIMEN Ordering Facility: [facility] Address: [address] [place], [place] [address] Performed By: #### 5 7021-8 #### [facility] CLIA [id number] [place] [address] [place] WBC (Bld) [#/Vol] 5.84 10*3/uL Normal 3.70-11.00 [facility] Comment on above: Order Comment: Speci men Type: BLOOD SPECIMEN Ordering Facility: [facility] Address: [address] [place] [address] Performed By: #### 5 7021-8 #### [facility] CLIA [id number] [place] [address] [place] Comprehensive metabolic 2000 panelon 09-29-2022 Albumin [Mass/Vol] 4.0 g/dL Normal 3.9-4.9 [facility] Comment on above: Order Comment: Speci men Type: BLOOD SPECIMEN Ordering Facility: [facility] Address: [address] [address] Performed By: #### 2 4323-8 #### [facility] CLIA [id number] [place] [address] [place] ALP [Catalytic activity/Vol] 109 U/L Normal 34-123 [facility] Comment on above: Order Comment: Speci men Type: BLOOD SPECIMEN Ordering Facility: [facility] Address: [address] [address] Performed By: #### 2 4323-8 #### [facility] CLIA [id number] [place] [address] [place] ALT [Catalytic activity/Vol] 23 U/L Normal 7-38 [facility] Comment on above: Order Comment: Speci men Type: BLOOD SPECIMEN Ordering Facility: [facility] Address: [address] [address] Performed By: #### 2 4323-8 #### [facility] CLIA [id number] [place] [address] [place] Anion gap [Moles/Vol] 15 mmol/L Normal 9-18 [facility] Comment on above: Order Comment: Speci men Type: BLOOD SPECIMEN Ordering Facility: [facility] Address: [address] Performed By: #### 2 4323-8 #### [facility] CLIA [id number] [place] [address] [place] AST [Catalytic activity/Vol] 30 U/L Normal 13-35 [facility] Comment on above: Order Comment: Speci men Type: BLOOD SPECIMEN Ordering Facility: [facility] Address: [address] [address] Performed By: #### 2 4323-8 #### [facility] CLIA [id number] [place] [address] [place] Bilirubin [Mass/Vol] 0.2 mg/dL Normal 0.2-1.3 [facility] Comment on above: Order Comment: Speci men Type: BLOOD SPECIMEN Ordering Facility: [facility] Address: [address] [address] Performed By: #### 2 4323-8 #### [facility] CLIA [id number] [place] [address] [place] Calcium [Mass/Vol] 9.4 mg/dL Normal 8.5-10.2 [facility] Comment on above: Order Comment: Speci men Type: BLOOD SPECIMEN Ordering Facility: [facility] Address: [address] [place] [address] Performed By: #### 2 4323-8 #### [facility] CLIA [id number] [place] [address] [place] Chloride [Moles/Vol] 104 mmol/L Normal 97-105 [facility] Comment on above: Order Comment: Speci men Type: BLOOD SPECIMEN Ordering Facility: [facility] Address: [address] [address] Performed By: #### 2 4323-8 #### [facility] CLIA [id number] [place] [address] [place] CO2 [Moles/Vol] 23 mmol/L Normal 22-30 [facility] Comment on above: Order Comment: Speci men Type: BLOOD SPECIMEN Ordering Facility: [facility] Address: [address] [place] [address] Performed By: #### 2 4323-8 #### [facility] CLIA [id number] [place] [address] [place] Creatinine [Mass/Vol] 0.57 mg/dL Low 0.58-0.96 [facility] Comment on above: Order Comment: Shantel espinal Type: BLOOD SPECIMEN Ordering Facility: [facility] Address: [address] [address] Performed By: #### 2 4323-8 #### [facility] CLIA [id number] [place] [address] [place] ESTIMATED GLOMERULAR FILTRATION RATE 129 mL/min/1.73m??? Normal >=60 [facility] Comment on above: Order Comment: Shantel espinal Type: BLOOD SPECIMEN Ordering Facility: [facility] Address: [address] [place] [address] Result Comment: Rekha mated Glomerular Filtration Rate [...] GFR. Performed By: #### 2 4323-8 #### [facility] CLIA [id number] [place] [address] [place] Glucose [Mass/Vol] 90 mg/dL Normal 74-99 [facility] Comment on above: Order Comment: Shantel espinal Type: BLOOD SPECIMEN Ordering Facility: [facility] Address: [address] [place] [address] Result Comment: The [place] [employer] (ADA) provides guidance for cutoff [...] Standards of Medical Care in Diabetes 2016, [place] [employer]. Diabetes Care. 2016.39(Suppl 1). Performed By: #### 2 4323-8 #### [facility] CLIA [id number] [place] [address] [place] Potassium [Moles/Vol] 3.5 mmol/L Low 3.7-5.1 [facility] Comment on above: Order Comment: Speci men Type: BLOOD SPECIMEN Ordering Facility: [facility] Address: [address] [place] [address] Performed By: #### 2 4323-8 #### [facility] CLIA [id number] [place] [address] [place] Protein [Mass/Vol] 6.6 g/dL Normal 6.3-8.0 [facility] Comment on above: Order Comment: Speci men Type: BLOOD SPECIMEN Ordering Facility: [facility] Address: [address] [place] [address] Performed By: #### 2 4323-8 #### [facility] CLIA [id number] [place] [address] [place] Sodium [Moles/Vol] 142 mmol/L Normal 136-144 [facility] Comment on above: Order Comment: Speci men Type: BLOOD SPECIMEN Ordering Facility: [facility] Address: [address] [place] [address] Performed By: #### 2 4323-8 #### [facility] CLIA [id number] [place] [address] [place] Urea nitrogen [Mass/Vol] 7 mg/dL Normal 7-21 [facility] Comment on above: Order Comment: Speci men Type: BLOOD SPECIMEN Ordering Facility: [facility] Address: [address] [place] [address] Performed By: #### 2 4323-8 #### [facility] CLIA [id number] [place] [address] [place] XR UPPER GI [...] bypass on August 20, 2022. COMPARISON:None RESULTS: Weather Reporter film of the abdomen demonstrates normal bowel [...] Sep 29 2022 10:30AM EST [id number] Normal [facility] Amorphous sediment detection in urine sediment by light microscopyOrdered By: Dr. Calvo on 08-28-2022 Amorphous sediment LM Ql (Urine sed) 1+ [facility] Basophil percentageOrdered B y: Dr. Calvo on 08-28-2022 Basophil percentage 0-5 SEEN /hpf 0-5 [facility] Bilirubin Test strip Ql (U)O rdered By: Dr. Calvo on 08-28-2022 Bilirubin Ql (U) 1 mg/dL Negative [facility] Comment on above: COLOR OF URINE MAY A FFECT DIPSTICK RESULTS.CRITICAL VALUE VERIFIED. CALLED TO Ayan RIVERA RN ER08/28/22 Evan Archer.RESULTS READ BACK BY SAME. Hyaline casts LM.LPF (Urine sed) [#/Area]Ordered By: Dr. Calvo on 08-28-2022 Hyaline casts (Urine sed) [#/Area] 5 /[LPF] 0-5 [facility] Ketones Test strip Ql (U)Ord ered By: Dr. Calvo on 08-28-2022 Ketones Ql (U) 150 mg/dl Negative [facility] Comment on above: CRITICAL VALUE *H Mucus LM Ql (Urine sed)Order ed By: Dr. Calvo on 08-28-2022 Mucus Ql (Urine sed) 1+ /hpf [facility] Nitrite Test strip Ql (U)Ord ered By: Dr. Calvo on 08-28-2022 Nitrite Ql (U) Negative Negative [facility] Protein Test strip Ql (U)Ord ered By: Dr. Calvo on 08-28-2022 Protein Ql (U) 30 mg/dl Negative [facility] Squamous epithelial cells de tection in urine sediment by light microscopyOrdered By: Dr. Calvo on 08-28-2022 Epithelial cells.squamous LM Ql (Urine sed) 0-5 SEEN /hpf 5-10 [facility] Urine blood detectionOrdered By: Dr. Calvo on 08-28-2022 RBC Ql (U) 25 /ul Negative [facility] RBC Ql (U) 0-5 SEEN /hpf 0-5 [facility] Urine clarityOrdered By: Dr. Calvo on 08-28-2022 Clarity (U) Clear Clear [facility] Urine color determinationOrd ered By: Dr. Calvo on 08-28-2022 Color (U) Yellow Yellow [facility] Urine glucose detectionOrder ed By: Dr. Calvo on 08-28-2022 Glucose Ql (U) Normal mg/dl Normal [facility] Urine leukocyte esterase det ection by dipstickOrdered By: Dr. Calvo on 08-28-2022 Leukocyte esterase Test strip Ql (U) 25 /ul Negative [facility] Urine pHOrdered By: Dr. Ky terry on 08-28-2022 pH (U) 5.0 [pH] 5.0 - 8.0 [facility] Urine sediment bacteria coun t by microscopy (number/high power field)Ordered By: Dr. Calvo on 08-28-2022 Bacteria LM.HPF (Urine sed) [#/Area] 2 /[HPF] None Seen [facility] Comment on above: Previous reported re sult: 1+ /hpfEdited by: GOLDIE on 08/28/22:0056 AMENDED REPORT 08/28/22 0056 BACTERIA previously reported as: 1+ /hpf Urine specific gravity measu rementOrdered By: Dr. Calvo on 08-28-2022 Specific gravity (U) [Rel density] 1.030 1.002-1.030 [facility] Urobilinogen Auto test strip Ql (U)Ordered By: Dr. Calvo on 08-28-2022 Urobilinogen Ql (U) 4 mg/dl Normal [facility] Absolute lymphocyte countOrd ered By: Dr. Calvo on 08-27-2022 Lymphocytes Auto (Unsp spec) [#/Vol] 2.24 10*3/uL 0.83-4.51 [facility] Basophil percentageOrdered B y: Dr. Calvo on 08-27-2022 Basophils/100 WBC (Bld) 0.7 % 0-1 [facility] Bilirubin [Mass/Vol] 0.30 mg/dL 0.20-1.00 [facility] Comment on above: For patients on eltr ombopag therapy, use of Dimension [place] TBIL is not recommended. Chloride [Moles/Vol] 105 mmol/L 98-107 [facility] Eosinophils/100 WBC (Bld) 2.0 % 0-5 [facility] Glucose [Mass/Vol] 94 mg/dL 74-106 [facility] Neutrophils (Bld) [#/Vol] 4.3 10*3/uL 2.0-7.7 [facility] Neutrophils/100 WBC (Bld) 57.5 % 47-70 [facility] Potassium [Moles/Vol] 3.2 mmol/L 3.5-5.1 [facility] Protein [Mass/Vol] 7.7 g/dL 6.4-8.2 [facility] Sodium [Moles/Vol] 137 mmol/L 136-145 [facility] WBC (Bld) [#/Vol] 7.5 10*3/uL 4.4-11.0 [facility] Blood erythrocytes count (nu mber/volume)Ordered By: Dr. Calvo on 08-27-2022 RBC (Bld) [#/Vol] 5.31 10*6/uL 4.2-5.4 [facility] Blood hemoglobin measurement (mass/volume)Ordered By: Dr. Calvo on 08-27-2022 Hemoglobin (Bld) [Mass/Vol] 14.9 g/dL 12.0-15.0 [facility] Blood lymphocytes/100 leukoc ytesOrdered By: Dr. Calvo on 08-27-2022 Lymphocytes/100 WBC (Bld) 29.9 % 19-41 [facility] Blood monocytes/100 leukocyt esOrdered By: Dr. Calvo on 08-27-2022 Monocytes/100 WBC (Bld) 9.6 % 0-10 [facility] Blood platelet mean volumeOr dered By: Dr. Calvo on 08-27-2022 Platelet mean volume (Bld) [Entitic vol] 10.9 fL 6.2-12.0 [facility] Determination of erythrocyte mean corpuscular volume (MCV)Ordered By: Dr. Calvo on 08-27-2022 MCV (RBC) [Entitic vol] 86.1 fL 81-99 [facility] Direct bilirubinOrdered By: Dr. Calvo on 08-27-2022 Bilirubin.direct [Mass/Vol] 0.11 mg/dL 0.00-0.30 [facility] Hematocrit Auto (Bld) [Volum e fraction]Ordered By: Dr. Calvo on 08-27-2022 Hematocrit (Bld) [Volume fraction] 45.7 % 37-47 [facility] Laboratory - Chemistry and C hemistry - challengeOrdered By: Dr. Calvo on 08-27-2022 ALP [Catalytic activity/Vol] 148 U/L 45-117 [facility] ALT [Catalytic activity/Vol] 114 U/L 13-56 [facility] CO2 [Moles/Vol] 19.0 mmol/L 21.0-32.0 [facility] Globulin (S) [Mass/Vol] 4.1 g/dL 2.2-4.2 [facility] Urea nitrogen/Creatinine [Mass ratio] 11.9 mg/mg 10-20 [facility] Laboratory - Hematology and Cell countsOrdered By: Dr. Calvo on 08-27-2022 Erythrocyte distribution width (RBC) [Entitic vol] 42.7 fL 35.1-43.9 [facility] Erythrocyte distribution width (RBC) [Ratio] 13.9 % 11.6-14.6 [facility] Immature granulocytes/100 WBC (Bld) 0.300 % 0.0-0.9 [facility] Comment on above: IG% - Immature Granu locytes (promyelocytes, myelocytes and metamyelocytes) > 1% indicates that a LEFT SHIFT is Present. MCH (RBC) [Entitic mass] 28.1 pg 27.0-32.0 [facility] Nucleated RBC/100 WBC (Bld) [Ratio] 0 % 0-5 [facility] MCHC Auto (RBC) [Mass/Vol]Or dered By: Dr. Calvo on 08-27-2022 MCHC (RBC) [Mass/Vol] 32.6 g/dL 32-36 [facility] No Panel InformationOrdered By: Dr. Calvo on 08-27-2022 Estimated Creatinine Clearance Calc 83.95 ml/min [facility] Estimated GFR (MDRD) Amer 105 mL/min >60 [facility] Comment on above: GFR Calc Estimated GFR (MDRD) Non-Af Amer 87 mL/min >60 [facility] Comment on above: Non- GFR Calc Platelets bldOrdered By: Dr. Calvo on 08-27-2022 Platelets (Bld) [#/Vol] 355 10*3/uL 150-450 [facility] Serum or plasma albumin alia urement (mass/volume)Ordered By: Dr. Calvo on 08-27-2022 Albumin [Mass/Vol] 3.6 g/dL 3.2-5.0 [facility] Serum or plasma calcium alia urement (mass/volume)Ordered By: Dr. Calvo on 08-27-2022 Calcium [Mass/Vol] 9.5 mg/dL 8.5-10.1 [facility] Serum or plasma creatinine m easurement (mass/volume)Ordered By: Dr. Calvo on 08-27-2022 Creatinine [Mass/Vol] 0.84 mg/dL 0.55-1.02 [facility] Comment on above: The validity of the calculated GFR & GFRAA in patients over 70 years has not been determined. Clinical correlation is essential. Serum or plasma urea nitroge n measurement (mass/volume)Ordered By: Dr. Calvo on 08-27-2022 Urea nitrogen [Mass/Vol] 10 mg/dL 7-18 [facility] Thin prep Papanicolaou smear with manual screeningOrdered By: Dr. Calvo on 08-27-2022 Thin prep Papanicolaou smear with manual screening 41 U/L 15-37 [facility] Thin prep Papanicolaou smear with manual screening 13 -15 [facility] CBC W Auto Differential pane l (Bld)on 08-26-2022 Basophils (Bld) [#/Vol] 0.03 10*3/uL <0.11 k/uL [facility] Basophils/100 WBC (Bld) 0.5 % [facility] Differential cell count method Nom (Bld) Auto [facility] Eosinophils (Bld) [#/Vol] 0.15 10*3/uL <0.46 k/uL [facility] Eosinophils/100 WBC (Bld) 2.3 % [facility] Erythrocyte distribution width (RBC) [Ratio] 13.8 % 11.5 - 15.0 % [facility] Hematocrit (Bld) [Volume fraction] 44.1 % 36.0 - 46.0 % [facility] Hemoglobin (Bld) [Mass/Vol] 14.3 g/dL 11.5 - 15.5 g/dL [facility] Immature granulocytes (Bld) [#/Vol] <0.10 k/uL [facility] Immature granulocytes/100 WBC (Bld) 0.2 % [facility] Lymphocytes (Bld) [#/Vol] 2.11 10*3/uL 1.00 - 4.00 k/uL [facility] Lymphocytes/100 WBC (Bld) 33.0 % [facility] MCH (RBC) [Entitic mass] 27.8 pg 26.0 - 34.0 pg [facility] MCHC (RBC) [Mass/Vol] 32.4 g/dL 30.5 - 36.0 g/dL [facility] MCV (RBC) [Entitic vol] 85.6 fL 80.0 - 100.0 fL [facility] Monocytes (Bld) [#/Vol] 0.63 10*3/uL <0.87 k/uL [facility] Monocytes/100 WBC (Bld) 9.8 % [facility] Neutrophils (Bld) [#/Vol] 3.47 10*3/uL 1.45 - 7.50 k/uL [facility] Neutrophils/100 WBC (Bld) 54.2 % [facility] Nucleated RBC (Bld) [#/Vol] <0.01 k/uL [facility] Nucleated RBC/100 WBC (Bld) [Ratio] 0.0 /100 WBC [facility] Platelet mean volume (Bld) [Entitic vol] 12.3 fL 9.0 - 12.7 fL [facility] Platelets (Bld) [#/Vol] 332 10*3/uL 150 - 400 k/uL [facility] RBC (Bld) [#/Vol] 5.15 10*6/uL 3.90 - 5.2 0 m/uL [facility] WBC (Bld) [#/Vol] 6.40 10*3/uL 3.70 - 11. 00 k/uL [facility] PHOSPHORUS INORGANICon 08-26 Phosphate [Mass/Vol] 3.6 mg/dL 2.7 - 4 .8 mg/dL [facility] XR Chest PA and Lateralon IMPRESSION: No acute radiographic abnormality. Soil Field Technician: RAMON Transcribe Date/Time: Jun 02 2022 10:25A Dictated by : DEMETRA MEDRANO MD This examination was interpreted and the report reviewed and electronically signed by: DEMETRA MEDRANO MD on Jun 02 2022 10:26AM [facility] DIVISION OF RADIOLOGY * * *Final Report* * * DATE OF EXAM: Jun 02 2022 8:38AM WOX 5291 - XR CHEST 2V FRONTAL/LAT / PROCEDURE REASON: Body mass index 40.0-44.9, adult (HCC) * * * * Physician Interpretation * * * * EXAMINATION: CHEST RADIOGRAPH (2 VIEW FRONTAL & LATERAL) CLINICAL HISTORY: Body mass index 40.0-44.9, adult ([facility]) MQ: XC2_6 EXAM DATE/TIME: 06/02/2022 8:38 AM COMPARISON: No relevant prior studies available. RESULT: Lines, tubes, and devices: None. Lungs and pleura: Small lung volume due to inadequate inspiration. No definite consolidation. No lung mass. No pleural effusion. No pneumothorax. Cardiomediastinal silhouette: Probably unremarkable cardiomediastinal silhouette. Bones and soft tissues: Unremarkable. DIVISION OF RADIOLOGY Provider, [facility] - 06/02/2022 * * *Final Report* * * DATE OF EXAM: Jun 02 2022 8:38AM WOX 5291 - XR CHEST 2V FRONTAL/LAT / PROCEDURE REASON: Body mass index 40.0-44.9, adult ([facility]) * * * * Physician Interpretation * * * * EXAMINATION: CHEST RADIOGRAPH (2 VIEW FRONTAL & LATERAL) CLINICAL HISTORY: Body mass index 40.0-44.9, adult ([facility]) MQ: XC2_6 EXAM DATE/TIME: 06/02/2022 8:38 AM COMPARISON: No relevant prior studies available. RESULT: Lines, tubes, and devices: None. Lungs and pleura: Small lung volume due to inadequate inspiration. No definite consolidation. No lung mass. No pleural effusion. No pneumothorax. Cardiomediastinal silhouette: Probably unremarkable cardiomediastinal silhouette. Bones and soft tissues: Unremarkable. IMPRESSION IMPRESSION: No acute radiographic abnormality. Soil Field Technician: RAMON Transcribe Date/Time: Jun 02 2022 10:25A Dictated by : DEMETRA MEDRANO MD This examination was interpreted and the report reviewed and electronically signed by: DEMETRA MEDRANO MD on Jun 02 2022 10:26AM EST [facility] Radiology Study observation (narrative) [facility] XR Chest PA and LateralOrder ed By: Ccf Provider on 06-02-2022 [facility] SCon 05-23-2021 [facility] REPORT Normal [facility] DATE OF SERVICE: 05/23/2021 HISTORY [...] warm, dry. No clubbing, cyanosis or edema. [facility] PATIENT NAME: LAINA DE LEÓN Marni Pride MEDICAL REC #: [id number] [place] [address] [facility] REPORT [facility] PHYSICIAN IMPRESSION: 1. Sinusitis. 2. Upper respiratory infection with cough and congestion. PLAN: Z-Tunde and Bromfed DM. Rest, fluids, follow up for nonresolution. Irwin Downs MD OJ/[id number] [facility] File#: [id number] END OF DOCUMENT / CHANGE LOG FOLLOWS Last Edited By Elec. Signed By Irwin Downs MD #Irwin Yeung MD on 05/29/2021 10:52 ET on 05/29/2021 10:52 ET Revision Number - 2 Verified/Reviewed by 05/29/[address] [facility] PATIENT NAME: LAINA DE LEÓN Marni Pride MEDICAL REC #: [id number] [place] [address] [facility] REPORT [facility]ARE PHYSICIAN [facility] ANES POSTPROC EVALon 021 ANES POSTPROC EVAL HNO ID: [id number] Author: Kimber Melara MD Service: Anesthesiology Author Type: Anesthesiologist Type: Anesthesia Postprocedure Evaluation Filed: 12/02/2020 4:02 PM Note Text: POST ANESTHESIA EVALUATION NOTE : 1995 Procedure Summary Date: 12/02/20 Room / Location: [place]03 [place] Anesthesia Start: 1415 Anesthesia Stop: 1451 [...] of care. No complications documented. SIGNATURE: Kimber Mealra MD PATIENT NAME: Laina De León DATE: December 02, 2020 TIME: 4:01 PM CSN: [id number] [facility] ANES PRE-OPon 12-02-2020 ANES PRE-OP HNO ID: [id number] Author: Kimber Melara MD Service: Anesthesiology Author [...] Surgery/Procedure. SIGNATURE: Kimber Melara MD PATIENT NAME: Laina De León DATE: December 02, 2020 TIME: 11:16 AM CSN: [id number] [facility] BRIEF OP NOTon 12-02-2020 BRIEF OP NOT HNO ID: [id number] Author: Kevin Funes Service: Podiatry Author Type: Physician Type: Brief Op Note Filed: 12/02/2020 2:50 PM Note Text: BRIEF OP NOTE LOG ID: [id number] Surgery/Procedure Date: 12/02/2020 Incision/Procedure Start Time: 2:31 PM Incision Close/Procedure End Time: 2:49 PM Surgeon(s)/Proceduralist( s) and Zig Zag Spring Machine Operator(s): Surgeon(s) and Role: * Kevin Funes - Primary * Bekah Momin DPM - Resident - Assisting Procedure(s): left 3rd toenail removal with chemical matrixectomy Anesthesia: Monitored Anesthesia Care Findings: severe thickening of left hallux toenail Estimated Blood Loss: 0 ml Specimens: None Complications: None Pre-Op/Pre-Procedure Diagnosis: onychomycosis Post-Op/Post-Procedure Diagnosis: * No post-op diagnosis entered * SIGNATURE: Kevin Funes DPM PATIENT NAME: Laina De León DATE: December 02, 2020 TIME: 2:50 PM PAGER/CONTACT #: [facility] HISTORY PHYSICALon HISTORY PHYSICAL HNO ID: [id number] Author: Kevin Funes Service: Podiatry Author Type: [...] matrixectomy SIGNATURE: Kevin Funes DPM PATIENT NAME: Laina De León DATE: December 02, 2020 TIME: 1:53 PM [facility] NURSING PROGon 12-02-2020 NURSING PROG HNO ID: [id number] Author: Fredis Abraham RN Service: Nursing Author Type: Registered Nurse Type: Nursing Progress Note Filed: 12/02/2020 3:46 PM Note Text: Nursing Progress Note Patient Name: Laina De León Patient Location: [place] Surgery/[place] Surgery Daily Note: Lite snack given, family at bedside, no c/o This note was completed by: Fredis Abraham [facility] OPERATIVE NOon 12-02-2020 OPERATIVE NO HNO ID: [id number] Author: Kevin Funes Service: Podiatry Author Type: Physician Type: Operative Report Filed: 12/02/2020 9:25 PM Note Text: OPERATIVE/PROCEDURE REPORT LOG ID: [id number] SURGERY/PROCEDURE DATE: 12/02/2020 INCISION/PROCEDURE START TIME: 2:31 PM INCISION CLOSE/PROCEDURE END TIME: 2:49 PM SURGEON(S)/PROCEDURALIST( S) AND SHOT CORE DRILL OPERATOR(S): Surgeon(s) and Role: * Kevin Funes [...] Of note, patient does have gel nail welsh on the left 3rd toenail. I attempted [...] surgeon/proceduralist performed the procedure with assistance. SIGNATURE: Kvein Funes DPM PATIENT NAME: Laina De León DATE: December 02, 2020 TIME: 9:10 PM Normal [facility] XR Wrist - left PA and Later al and Obliqueon 01-12-2020 IMPRESSION: No acute bone or joint space abnormality. Soil Field Technician: RAMON Transcribe Date/Time: Jan 12 2020 8:21A Dictated by : Patrick SEXTON MD This examination was interpreted and the report reviewed and electronically signed by: Patrick SEXTON MD on Jan 12 2020 8:23AM [facility] DIVISION OF RADIOLOGY * * *Final Report* [...] soft tissue calcification. DIVISION OF RADIOLOGY Provider, [facility] - 01/12/2020 * * *Final Report* * [...] No acute bone or joint space abnormality. Soil Field Technician: PSCB Transcribe Date/Time: Jan 12 2020 8:21A Dictated by : Patrick SEXTON MD This examination was interpreted and the report reviewed and electronically signed by: Patrick SETXON MD on Jan 12 2020 8:23AM EST [facility] Radiology Study observation (narrative) [facility] XR Wrist - left PA and Later al and ObliqueOrdered By: Ccf Provider on 01-12-2020 [facility] CURon 04-09-2019 CUR . MICRO - [...] Locations *1: This test was performed at: [facility], [address] [place] [address], [facility] , [facility] Normal [facility] ([place]) Comment on above: Performed By: #### C BC, ADIFF, ANEU #### [address] [address] #### LIP, CMP, HCGQ, GFR #### [place] [address] RESPIDon 04-08-2019 Adenovirus Not Detected Normal Not Detected [facility] ([place]) Comment on above: Order Comment: Order added by [email or web address] Performed By: #### R ESPID #### [place] [address] Bordetella Parapertussis Not Detected Normal Not Detected [facility] ([place]) Comment on above: Order Comment: Order added by [email or web address] Performed By: #### R ESPID #### [place] [address] Bordetella Pertussis Not Detected Normal Not Detected [facility] ([place]) Comment on above: Order Comment: Order added by [email or web address] Performed By: #### R ESPID #### [place] [address] Chlamydophila pneumoniae Not Detected Normal Not Detected [facility] ([place]) Comment on above: Order Comment: Order added by [email or web address] Performed By: #### R ESPID #### [place] [address] Coronavirus 229E Not Detected Normal Not Detected [facility] ([place]) Comment on above: Order Comment: Order added by [email or web address] Performed By: #### R ESPID #### [facility] [address] [place], [place] [address] Coronavirus HKU1 Not Detected Normal Not Detected [facility] ([place]) Comment on above: Order Comment: Order added by [email or web address] Performed By: #### R ESPID #### [place] [address] Coronavirus NL63 Not Detected Normal Not Detected [facility] ([place]) Comment on above: Order Comment: Order added by [email or web address] Performed By: #### R ESPID #### [place] [address] Coronavirus OC43 Not Detected Normal Not Detected [facility] ([place]) Comment on above: Order Comment: Order added by [email or web address] Performed By: #### R ESPID #### [place] [address] Human Metapneumovirus Not Detected Normal Not Detected [facility] ([place]) Comment on above: Order Comment: Order added by [email or web address] Performed By: #### R ESPID #### [place] [id number] Influenza A Not Detected Normal Not Detected [facility] ([place]) Comment on above: Order Comment: Order added by [email or web address] Performed By: #### R ESPID #### [address] [address] Influenza B Not Detected Normal Not Detected [facility] ([place]) Comment on above: Order Comment: Order added by [email or web address] Performed By: #### R ESPID #### [address] [address] Mycoplasma pneumoniae Not Detected Normal Not Detected [facility] ([place]) Comment on above: Order Comment: Order added by [email or web address] Performed By: #### R ESPID #### [address] [address] Parainfluenza 1 Not Detected Normal Not Detected [facility] ([place]) Comment on above: Order Comment: Order added by [email or web address] Performed By: #### R ESPID #### [place] [address] Parainfluenza 2 Not Detected Normal Not Detected [facility] ([place]) Comment on above: Order Comment: Order added by [email or web address] Performed By: #### R ESPID #### [place] [address] Parainfluenza 3 Not Detected Normal Not Detected [facility] ([place]) Comment on above: Order Comment: Order added by [email or web address] Performed By: #### R ESPID #### [place] [address] Parainfluenza 4 Not Detected Normal Not Detected [facility] ([place]) Comment on above: Order Comment: Order added by [email or web address] Performed By: #### R ESPID #### [place] [address] Respiratory Syncytial Virus Not Detected Normal Not Detected [facility] ([place]) Comment on above: Order Comment: Order added by [email or web address] Performed By: #### R ESPID #### [place] [address] Rhinovirus/Enteroviru s Not Detected Normal Not Detected [facility] ([place]) Comment on above: Order Comment: Order added by [email or web address] Performed By: #### R ESPID #### [place] [address] .Auto Diffon 04-07-2019 Ammonia (P) [Mass/Vol] 0.60 10 3/mcL Normal 0.15-1.00 [facility] ([place]) Comment on above: Performed By: #### C BC, ADIFF, ANEU #### [facility] [address] #### LIP, CMP, HCGQ, GFR #### [place] [address] Basophils (Bld) [#/Vol] 0.00 10 3/mcL Normal 0.00-0.19 [facility] ([place]) Comment on above: Performed By: #### C BC, ADIFF, ANEU #### [place] [address] #### LIP, CMP, HCGQ, GFR #### [address] [address] Basophils/100 WBC (Bld) 0.2 % Normal 0.0-2.5 [facility] ([place]) Comment on above: Performed By: #### C BC, ADIFF, ANEU #### [place] [address] #### LIP, CMP, HCGQ, GFR #### [address] [address] Eosinophils (Bld) [#/Vol] 0.00 10 3/mcL Normal 0.00-0.40 [facility] ([place]) Comment on above: Performed By: #### C BC, ADIFF, ANEU #### [place] [address] #### LIP, CMP, HCGQ, GFR #### [address] [address] Eosinophils/100 WBC (Bld) 0.2 % Normal 0.0-7.0 [facility] ([place]) Comment on above: Performed By: #### C BC, ADIFF, ANEU #### [place] [address] #### LIP, CMP, HCGQ, GFR #### [address] [address] Lymphocytes (Bld) [#/Vol] 0.70 10 3/mcL Low 0.77-3.85 [facility] ([place]) Comment on above: Performed By: #### C BC, ADIFF, ANEU #### [place] [address] #### LIP, CMP, HCGQ, GFR #### [address] [address] Lymphocytes/100 WBC (Bld) 5.3 % Low 10.0-50.0 [facility] ([place]) Comment on above: Performed By: #### C BC, ADIFF, ANEU #### [address] [address] #### LIP, CMP, HCGQ, GFR #### [address] [address] Monocytes/100 WBC (Bld) 5.1 % Normal 1.7-13.0 [facility] ([place]) Comment on above: Performed By: #### C BC, ADIFF, ANEU #### [address] [address] #### LIP, CMP, HCGQ, GFR #### [address] [address] Neutrophils/100 WBC (Bld) 89.2 % High 37.0-80.0 [facility] ([place]) Comment on above: Performed By: #### C BC, ADIFF, ANEU #### [place] [address] #### LIP, CMP, HCGQ, GFR #### [address] [address] .GFRon 04-07-2019 GFR 100 ml/min/1.73sqm Normal [facility] ([place]) Comment on above: Result Comment: GFR Population [...] By: #### C BC, ADIFF, ANEU #### [place] [address] #### LIP, CMP, HCGQ, GFR #### [address] [address] GFR Non- 83 ml/min/1.73sqm Normal [facility] ([place]) Comment on above: Result Comment: GFR Population [...] mL/min/1.73 square meters Performed By: #### C VAMSI MARIE ANEU #### [place] [address] #### LIP, CMP, HCGQ, GFR #### [address] [address] .NEUABSon 04-07-2019 Neutrophils (Bld) [#/Vol] 11.00 10 3/mcL High 2.85-6.16 [facility] ([place]) Comment on above: Performed By: #### VAMSI GONZALEZ, ANEU #### [place] [address] #### LIP, CMP, HCGQ, GFR #### [address] [address] CBCon 04-07-2019 Erythrocyte distribution width (RBC) [Ratio] 13.9 % Normal 11.5-14.5 [facility] ([place]) Comment on above: Performed By: #### VAMSI GONZALEZ, ANEU #### [place] [address] #### LIP, CMP, HCGQ, GFR #### [address] [address] Hematocrit (Bld) [Volume fraction] 43.9 % Normal 37.0-47.0 [facility] ([place]) Comment on above: Performed By: #### C VAMSI MARIE, ANEU #### [address] [address] #### LIP, CMP, HCGQ, GFR #### [address] [address] Hemoglobin (Bld) [Mass/Vol] 14.4 G/dL Normal 12.0-16.0 [facility] ([place]) Comment on above: Performed By: #### C VAMSI MARIE, ANEU #### [place] [address] #### LIP, CMP, HCGQ, GFR #### [address] [address] MCH (RBC) [Entitic mass] 27.5 pg Normal 27.0-31.2 [facility] ([place]) Comment on above: Performed By: #### C VAMSI MARIE, ANEU #### [place] [address] #### LIP, CMP, HCGQ, GFR #### [place] [address] MCHC (RBC) [Mass/Vol] 32.8 G/dL Low 33.0-37.0 [facility] ([place]) Comment on above: Performed By: #### C VAMSI MARIE, ANEU #### [place] [address] #### LIP, CMP, HCGQ, GFR #### [address] [address] MCV (RBC) [Entitic vol] 83.6 fL Normal 80.0-94.0 [facility] ([place]) Comment on above: Performed By: #### C CYNTHIA ADIFF, ANEU #### [place] [address] #### LIP, CMP, HCGQ, GFR #### [facility] [address] [place], [place] [address] Platelet mean volume (Bld) [Entitic vol] 8.1 fL Normal 7.4-10.4 [facility] ([place]) Comment on above: Performed By: #### C BC, ADIFF, ANEU #### [address] [address] #### LIP, CMP, HCGQ, GFR #### [address] [address] Platelets (Bld) [#/Vol] 368 10 3/mcL Normal 130-400 [facility] ([place]) Comment on above: Performed By: #### C BC, ADIFF, ANEU #### [place] [address] #### LIP, CMP, HCGQ, GFR #### [address] [address] RBC (Bld) [#/Vol] 5.26 10 6/mcL Normal 4.20-5.40 [facility] ([place]) Comment on above: Performed By: #### C BC, ADIFF, ANEU #### [place] [address] #### LIP, CMP, HCGQ, GFR #### [address] [address] WBC (Bld) [#/Vol] 12.40 10 3/mcL High 4.60-10.80 [facility] ([place]) Comment on above: Performed By: #### C BC, ADIFF, ANEU #### [place] [address] #### LIP, CMP, HCGQ, GFR #### [address] [address] CMPon 04-07-2019 Albumin [Mass/Vol] 3.4 G/dL Low 3.5-5.0 [facility] ([place]) Comment on above: Performed By: #### C BC, ADIFF, ANEU #### [place] [address] #### LIP, CMP, HCGQ, GFR #### [facility] [address] Albumin/Globulin [Mass ratio] 0.9 {ratio} Low 1.1-2.5 [facility] ([place]) Comment on above: Performed By: #### C BC, ADIFF, ANEU #### [place] [address] #### LIP, CMP, HCGQ, GFR #### [address] [address] ALP [Catalytic activity/Vol] 104 U/L Normal 40-135 [facility] ([place]) Comment on above: Performed By: #### C BC, ADIFF, ANEU #### [place] [address] #### LIP, CMP, HCGQ, GFR #### [address] [address] ALT [Catalytic activity/Vol] 24 U/L Normal 10-35 [facility] ([place]) Comment on above: Performed By: #### C BC, ADIFF, ANEU #### [place] [address] #### LIP, CMP, HCGQ, GFR #### [address] [address] AST [Catalytic activity/Vol] 18 U/L Normal 10-40 [facility] ([place]) Comment on above: Performed By: #### C BC, ADIFF, ANEU #### [place] [address] #### LIP, CMP, HCGQ, GFR #### [address] [address] Bili Total 0.3 mg/dL Normal 0.2-1.0 [facility] ([place]) Comment on above: Performed By: #### C BC, ADIFF, ANEU #### [place] [address] #### LIP, CMP, HCGQ, GFR #### [address] [address] Calcium [Mass/Vol] 8.6 mg/dL Normal 8.4-10.2 [facility] ([place]) Comment on above: Performed By: #### C BC, ADIFF, ANEU #### [address] [address] #### LIP, CMP, HCGQ, GFR #### [address] [address] Chloride [Moles/Vol] 102 mmol/L Normal 98-107 [facility] ([place]) Comment on above: Performed By: #### C BC, ADIFF, ANEU #### [address] [address] #### LIP, CMP, HCGQ, GFR #### [address] [address] CO2 [Moles/Vol] 21 mmol/L Low 22-29 [facility] ([place]) Comment on above: Performed By: #### C BC, ADIFF, ANEU #### [address] [address] #### LIP, CMP, HCGQ, GFR #### [address] [address] Creatinine [Mass/Vol] 0.86 mg/dL Normal 0.55-1.02 [facility] ([place]) Comment on above: Performed By: #### C BC, ADIFF, ANEU #### [address] [address] #### LIP, CMP, HCGQ, GFR #### [address] [address] Electrolyte Balance 13.0 mEq/L Normal [facility] ([place]) Comment on above: Performed By: #### C BC, ADIFF, ANEU #### [address] [address] #### LIP, CMP, HCGQ, GFR #### [address] [address] Globulin (S) [Mass/Vol] 3.7 G/dL Normal [facility] ([place]) Comment on above: Performed By: #### C BC, ADIFF, ANEU #### [address] [address] #### LIP, CMP, HCGQ, GFR #### [address] [address] Glucose [Mass/Vol] 150 mg/dL High 70-105 [facility] ([place]) Comment on above: Performed By: #### C BC, ADIFF, ANEU #### [address] [address] #### LIP, CMP, HCGQ, GFR #### [address] [address] Potassium [Moles/Vol] 3.8 mmol/L Normal 3.5-5.1 [facility] ([place]) Comment on above: Performed By: #### C BC, ADIFF, ANEU #### [place] [address] #### LIP, CMP, HCGQ, GFR #### [address] [address] Protein [Mass/Vol] 7.1 G/dL Normal 6.4-8.2 [facility] ([place]) Comment on above: Performed By: #### C BC, ADIFF, ANEU #### [place] [address] #### LIP, CMP, HCGQ, GFR #### [address] [address] Sodium [Moles/Vol] 136 mmol/L Normal 136-145 [facility] ([place]) Comment on above: Performed By: #### C BC, ADIFF, ANEU #### [address] [address] #### LIP, CMP, HCGQ, GFR #### [address] [address] Urea nitrogen [Mass/Vol] 14 mg/dL Normal 7-18 [facility] ([place]) Comment on above: Performed By: #### C BC, ADIFF, ANEU #### [place] [address] #### LIP, CMP, HCGQ, GFR #### [address] [address] Urea nitrogen/Creatinine [Mass ratio] 16 ratio Normal 7-27 [facility] ([place]) Comment on above: Performed By: #### C VAMSI MARIE ANEU #### [address] [address] #### LIP, CMP, HCGQ, GFR #### [address] [address] HCGQon 04-07-2019 hCG, quantitative 373[address].8 mIU/mL Normal [facility] ([place]) Comment on above: Result Comment: HCG Quantitative [...] Performed By: #### VAMSI GONZALEZ ANEU #### [address] [address] #### LIP, CMP, HCGQ, GFR #### [address] [address] LIPon 04-07-2019 Lipase Level 59 U/L Low 73-393 [facility] ([place]) Comment on above: Performed By: #### VAMSI GONZALEZ ANEU #### [address] [address] #### LIP, CMP, HCGQ, GFR #### [place] [address] RFLUon 04-07-2019 RFLU . MICRO - Microbiology [...] Locations *1: This test was performed at: [address] ([place]) Comment on above: Performed By: #### R FLU #### [place] [address] UAon 04-07-2019 Color (U) Yellow Normal [facility] ([place]) Comment on above: Performed By: #### U A #### [place] [address] Glucose (U) [Mass/Vol] Negative Normal Negative [facility] ([place]) Comment on above: Performed By: #### U A #### [place] [id number] Ketones Ql (U) Trace Negative [facility] ([place]) Comment on above: Performed By: #### U A #### [place] [address] UA Appear Clear Normal Clear [facility] ([place]) Comment on above: Performed By: #### U A #### [place] [address] UA Blood Negative Normal Negative [facility] ([place]) Comment on above: Performed By: #### U A #### [address] [address] UA Leuk Est Negative Normal Negative [facility] ([place]) Comment on above: Performed By: #### U A #### [place] [address] UA Nitrite Negative Normal Negative [facility] ([place]) Comment on above: Performed By: #### U A #### [place] [address] UA pH 6.0 Normal 5.0 - 8.0 [facility] ([place]) Comment on above: Performed By: #### U A #### [place] [address] UA Protein Negative Normal Negative [facility] ([place]) Comment on above: Performed By: #### U A #### [place] [address] UA Spec Grav >=1.030 1.015-1.025 [facility] ([place]) Comment on above: Performed By: #### U A #### [place] [address] UA Specimen Type Clean Catch Normal [facility] ([place]) Comment on above: Performed By: #### U A #### [place] [address] UA Urobilinogen 0.2 E.U./dL Normal 0.2-1.0 [facility] ([place]) Comment on above: Performed By: #### U A #### [place] [address] Urobilinogen Qn (U) Negative Normal Negative [facility] ([place]) Comment on above: Performed By: #### U A #### [place] [address] Surgical Tissue Examon 08-30 Surgical Tissue Exam Test performed at [place] [address] NAME: LAINA DE LEÓN REQUESTING: ATIYA MCKEE MD FINAL [...] Tissue is submitted as follows: 1 - human resources hr representative sections of gallbladder; 2-3 focus of mucosal folds- fungating mass, totally submitted. KVB:[email or web address] QUIROZ M.D. (Electronic signature on file) Signed out: 09/01/2018 12:12 PRINTED: 09/01/2018 Page 1 of 1 Normal [facility] Comment on above: Performed By: #### S URG #### [place] [address] Urine HCG, Qual.on 9 HCG.beta subunit ( test) Ql (U) Negative Normal Negative [facility] Comment on above: Performed By: #### L HCG2 #### [address] [address] Specific [place], Ur >=1.030 Normal 1.005-1.030 [facility] Comment on above: Performed By: #### L HCG2 #### [address] [address] Vital Signs Date Time Vital Sign Value Performing Clinician Facility 09-23-2024 19:20-0400 Diastolic blood pressure 96 mm[Hg] Natalie LUCAS Work Phone: [facility] 09-23-2024 19:20-0400 Heart rate 80 /min Natalie LUCAS Work Phone: [facility] 09-23-2024 19:20-0400 Systolic blood pressure 132 mm[Hg] Natalie LUCAS Work Phone: [facility] 09-23-2024 17:22-0400 Body height 160.02 cm Natalie LUCAS Work Phone: [facility] 09-23-2024 17:22-0400 Body mass index (BMI) [Ratio] 33.8 kg/m2 Natalie Blum PA Work Phone: [facility] 09-23-2024 17:22-0400 Body weight 86.63 kg Natalie LUCAS Work Phone: [facility] 09-23-2024 17:05-0400 Body temperature 97.7 [degF] Natalie Blum PA Work Phone: [phone] [place] [address] 09-23-2024 17:05-0400 Respiratory rate 14 /min Natalie LUCAS Work Phone: [facility] 09-23-2024 17:05-0400 SaO2% (BldA) [Mass fraction] 99 % Natalie LUCAS Work Phone: [facility] 09-21-2024 09:59-0400 Body mass index (BMI) [Ratio] 33.8 kg/m2 Sandra Edwards MD Work Phone: [facility] 09-21-2024 09:59-0400 Body weight 86.55 kg Sandra Edwards MD Work Phone: [facility] 09-21-2024 09:59-0400 Diastolic blood pressure 77 mm[Hg] Sandra Edwards MD Work Phone: [facility] 09-21-2024 09:59-0400 Systolic blood pressure 118 mm[Hg] Sandra Edwards MD Work Phone: [facility] 09-07-2024 09:53-0400 Body mass index (BMI) [Ratio] 32.42 kg/m2 Gracie Navarro MD Work Phone: [facility] 09-07-2024 09:53-0400 Body weight 83.01 kg Gracie Navarro MD Work Phone: [facility] 09-07-2024 09:53-0400 Diastolic blood pressure 72 mm[Hg] Gracie Navarro MD Work Phone: [facility] 09-07-2024 09:53-0400 Systolic blood pressure 116 mm[Hg] Gracie Navarro MD Work Phone: [facility] 08-29-2024 08:38-0400 Body mass index (BMI) [Ratio] 33.13 kg/m2 Eddi Sneed MD Work Phone: [facility] 08-29-2024 08:38-0400 Body weight 84.82 kg Eddi Sneed MD Work Phone: [facility] Comment on above: self-reported from OB visit 08/29/24 08-29-2024 08:38-0400 Diastolic blood pressure 68 mm[Hg] Eddi Sneed MD Work Phone: [facility] Comment on above: self-reported from OB visit 08/29/24 08-29-2024 08:38-0400 Heart rate 74 /min Eddi Sneed MD Work Phone: [facility] 08-29-2024 08:38-0400 Respiratory rate 18 /min Eddi Sneed MD Work Phone: [facility] 08-29-2024 08:38-0400 SaO2% (BldA) [Mass fraction] 98 % Eddi Sneed MD Work Phone: [facility] 08-29-2024 08:38-0400 Systolic blood pressure 100 mm[Hg] Eddi Sneed MD Work Phone: [facility] Comment on above: self-reported from OB visit 08/29/24 08-29-2024 08:08-0400 Body mass index (BMI) [Ratio] 33.13 kg/m2 Inna Garcia MD Work Phone: [facility] 08-29-2024 08:08-0400 Body weight 84.82 kg Inna Garcia MD Work Phone: [facility] 08-29-2024 08:08-0400 Diastolic blood pressure 68 mm[Hg] Inna Garcia MD Work Phone: [facility] 08-29-2024 08:08-0400 Systolic blood pressure 100 mm[Hg] Inna Garcia MD Work Phone: [facility] 08-14-2024 13:34-0400 Body mass index (BMI) [Ratio] 31.21 kg/m2 Sandra Edwards MD Work Phone: [facility] 08-14-2024 13:34-0400 Body weight 79.92 kg Sandra Edwards MD Work Phone: [facility] 08-14-2024 13:34-0400 Diastolic blood pressure 70 mm[Hg] Sandra Edwards MD Work Phone: [facility] 08-14-2024 13:34-0400 Systolic blood pressure 110 mm[Hg] Sandra Edwards MD Work Phone: [facility] 07-24-2024 07:57-0400 Body mass index (BMI) [Ratio] 30.65 kg/m2 Génesis Wang MD Work Phone: [facility] 07-24-2024 07:57-0400 Body weight 78.47 kg Génesis Wang MD Work Phone: [facility] 07-24-2024 07:57-0400 Diastolic blood pressure 64 mm[Hg] Génesis Wang MD Work Phone: [facility] 07-24-2024 07:57-0400 Systolic blood pressure 110 mm[Hg] Génesis Wang MD Work Phone: [facility] 06-28-2024 08:14-0400 Body temperature 98.2 [degF] Treatment Wstr Work Phone: [facility] 06-28-2024 08:14-0400 Diastolic blood pressure 71 mm[Hg] Treatment Wstr Work Phone: [facility] 06-28-2024 08:14-0400 Heart rate 98 /min Treatment Wstr Work Phone: [facility] 06-28-2024 08:14-0400 Respiratory rate 16 /min Treatment Wstr Work Phone: [facility] 06-28-2024 08:14-0400 SaO2% (BldA) [Mass fraction] 99 % Treatment Wstr Work Phone: [facility] 06-28-2024 08:14-0400 Systolic blood pressure 109 mm[Hg] Treatment Wstr Work Phone: [facility] 06-23-2024 22:22-0400 Diastolic blood pressure 70 mm[Hg] Natalie LUCAS Work Phone: [facility] 06-23-2024 22:22-0400 Heart rate 80 /min Natalie LUCAS Work Phone: [facility] 06-23-2024 22:22-0400 Systolic blood pressure 115 mm[Hg] Natalie LUCAS Work Phone: [facility] 06-23-2024 22:18-0400 SaO2% (BldA) [Mass fraction] 100 % Natalie LUCAS Work Phone: [facility] 06-23-2024 22:08-0400 Body height 165.1 cm Natalie LUCAS Work Phone: [facility] 06-23-2024 22:08-0400 Body mass index (BMI) [Ratio] 27.5 kg/m2 Natalie LUCAS Work Phone: [facility] 06-23-2024 22:08-0400 Body weight 75.11 kg Natalie LUCAS Work Phone: [facility] 06-23-2024 11:18-0400 Body temperature 97.9 [degF] Treatment Wstr Work Phone: [facility] 06-23-2024 11:18-0400 Diastolic blood pressure 76 mm[Hg] Treatment Wstr Work Phone: [facility] 06-23-2024 11:18-0400 Heart rate 87 /min Treatment Wstr Work Phone: [facility] 06-23-2024 11:18-0400 Respiratory rate 16 /min Treatment Wstr Work Phone: [facility] 06-23-2024 11:18-0400 SaO2% (BldA) [Mass fraction] 99 % Treatment Wstr Work Phone: [facility] 06-23-2024 11:18-0400 Systolic blood pressure 116 mm[Hg] Treatment Wstr Work Phone: [facility] 06-23-2024 08:53-0400 Body mass index (BMI) [Ratio] 29.05 kg/m2 Inna Garcia MD Work Phone: [facility] 06-23-2024 08:53-0400 Body weight 74.39 kg Inna Garcia MD Work Phone: [facility] 06-23-2024 08:53-0400 Diastolic blood pressure 64 mm[Hg] Inna Garcia MD Work Phone: [facility] 06-23-2024 08:53-0400 Systolic blood pressure 118 mm[Hg] Inna Garcia MD Work Phone: [facility] 06-22-2024 14:53-0400 Body mass index (BMI) [Ratio] 29.26 kg/m2 Eddi Sneed MD Work Phone: [facility] 06-22-2024 14:53-0400 Body temperature 97.7 [degF] Eddi Sneed MD Work Phone: [facility] 06-22-2024 14:53-0400 Body weight 74.93 kg Eddi Sneed MD Work Phone: [facility] 06-22-2024 14:53-0400 Heart rate 111 /min Eddi Sneed MD Work Phone: [facility] 06-22-2024 14:53-0400 SaO2% (BldA) [Mass fraction] 98 % Eddi Sneed MD Work Phone: [facility] 06-21-2024 09:33-0400 Body temperature 97.11 [degF] Treatment Wstr Work Phone: [facility] 06-21-2024 09:33-0400 Diastolic blood pressure 73 mm[Hg] Treatment Wstr Work Phone: [facility] 06-21-2024 09:33-0400 Heart rate 82 /min Treatment Wstr Work Phone: [facility] 06-21-2024 09:33-0400 SaO2% (BldA) [Mass fraction] 100 % Treatment Wstr Work Phone: [facility] 06-21-2024 09:33-0400 Systolic blood pressure 117 mm[Hg] Treatment Wstr Work Phone: [facility] 05-31-2024 15:31-0400 Body mass index (BMI) [Ratio] 28.31 kg/m2 Yovani Mroa MD Work Phone: [facility] 05-31-2024 15:31-0400 Body weight 72.48 kg Yovani Mora MD Work Phone: [facility] 05-31-2024 15:31-0400 Diastolic blood pressure 80 mm[Hg] Yovani Mora MD Work Phone: [facility] 05-31-2024 15:31-0400 Systolic blood pressure 120 mm[Hg] Yovani Mora MD Work Phone: [facility] 04-26-2024 10:14-0500 Body mass index (BMI) [Ratio] 26.57 kg/m2 Kalpana Laguerre APRN.CNM Work Phone: [facility] 04-26-2024 10:14-0500 Body weight 68.04 kg Kalpana Plotts INDUSTRIAL WELDER.CNM Work Phone: [facility] 04-26-2024 10:14-0500 Diastolic blood pressure 82 mm[Hg] Kalpana Plotts INDUSTRIAL WELDER.CNM Work Phone: [facility] 04-26-2024 10:14-0500 Systolic blood pressure 120 mm[Hg] Kalpana Plotts INDUSTRIAL WELDER.CNM Work Phone: [facility] 03-31-2024 08:19-0500 Body mass index (BMI) [Ratio] 26.15 kg/m2 Kayy Coretta INDUSTRIAL WELDER.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 Work Phone: [facility] 03-31-2024 08:19-0500 Body weight 66.95 kg Kayy Coretta INDUSTRIAL WELDER.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 Work Phone: [facility] 03-31-2024 08:19-0500 Diastolic blood pressure 62 mm[Hg] Kayy Coretta INDUSTRIAL WELDER.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 Work Phone: [facility] 03-31-2024 08:19-0500 Systolic blood pressure 116 mm[Hg] Kayy Elk Horn INDUSTRIAL WELDER.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 Work Phone: [facility] 02-02-2024 10:16-0500 Body mass index (BMI) [Ratio] 26.04 kg/m2 Génesis Wang MD Work Phone: [facility] 02-02-2024 10:16-0500 Body weight 66.68 kg Génesis Wang MD Work Phone: [facility] 02-02-2024 10:16-0500 Diastolic blood pressure 74 mm[Hg] Génesis Wang MD Work Phone: [facility] 02-02-2024 10:16-0500 Systolic blood pressure 118 mm[Hg] Génesis Wang MD Work Phone: [facility] 09-13-2023 10:26-0400 Body mass index (BMI) [Ratio] 26.68 kg/m2 Kayy Coretta INDUSTRIAL WELDER.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 Work Phone: [facility] 09-13-2023 10:26-0400 Body weight 68.31 kg Kayy Elk Horn INDUSTRIAL WELDER.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 Work Phone: [facility] 09-13-2023 10:26-0400 Diastolic blood pressure 70 mm[Hg] Kayy Coretta INDUSTRIAL WELDER.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 Work Phone: [facility] 09-13-2023 10:26-0400 Systolic blood pressure 120 mm[Hg] Kayy Elk Horn INDUSTRIAL WELDER.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 Work Phone: [facility] 07-13-2023 10:01-0400 Body mass index (BMI) [Ratio] 29.58 kg/m2 Yovani Mora MD Work Phone: [facility] 07-13-2023 10:01-0400 Body weight 75.75 kg Yovani Mora MD Work Phone: [facility] 07-13-2023 10:01-0400 Diastolic blood pressure 84 mm[Hg] Yovani Mora MD Work Phone: [facility] 07-13-2023 10:01-0400 Systolic blood pressure 126 mm[Hg] Yovani Mora MD Work Phone: [facility] 07-06-2023 09:01-0400 Body temperature 97.5 [degF] [facility] 07-06-2023 09:01-0400 Diastolic blood pressure 85 mm[Hg] [facility] 07-06-2023 09:01-0400 Heart rate 68 /min [facility] 07-06-2023 09:01-0400 Respiratory rate 16 /min [facility] 07-06-2023 09:01-0400 SaO2% (BldA) [Mass fraction] 98 % [facility] 07-06-2023 09:01-0400 Systolic blood pressure 124 mm[Hg] [facility] 07-04-2023 07:11-0400 Body height 160.02 cm [facility] 07-04-2023 07:11-0400 Body mass index (BMI) [Ratio] 34.2 kg/m2 [facility] 07-04-2023 07:11-0400 Body weight 87.54 kg [facility] 07-02-2023 16:51-0400 Diastolic blood pressure 87 mm[Hg] [facility] 07-02-2023 16:51-0400 Heart rate 75 /min [facility] 07-02-2023 16:51-0400 Systolic blood pressure 125 mm[Hg] [facility] 07-02-2023 16:03-0400 Body mass index (BMI) [Ratio] 34 kg/m2 [facility] 07-02-2023 16:03-0400 Body weight 87.08 kg [facility] 07-02-2023 11:06-0400 Diastolic blood pressure 76 mm[Hg] Ob Ultrasound Work Phone: [facility] 07-02-2023 11:06-0400 Systolic blood pressure 120 mm[Hg] Ob Ultrasound Work Phone: [facility] 06-28-2023 10:13-0400 Body weight 85.28 kg Yovani Mora MD Work Phone: [facility] 06-28-2023 10:13-0400 Diastolic blood pressure 84 mm[Hg] Yovani Mora MD Work Phone: [facility] 06-28-2023 10:13-0400 Systolic blood pressure 129 mm[Hg] Yovani Mora MD Work Phone: [facility] 06-25-2023 10:52-0400 Diastolic blood pressure 76 mm[Hg] Génesis Wang MD Work Phone: [facility] 06-25-2023 10:52-0400 Systolic blood pressure 116 mm[Hg] Génesis Wang MD Work Phone: [facility] 06-21-2023 13:17-0400 Body weight 83.92 kg Yovani Mora MD Work Phone: [facility] 06-21-2023 13:17-0400 Diastolic blood pressure 81 mm[Hg] Yovani Mora MD Work Phone: [facility] 06-21-2023 13:17-0400 Systolic blood pressure 132 mm[Hg] Yovani Mora MD Work Phone: [facility] 06-18-2023 14:25-0400 Diastolic blood pressure 80 mm[Hg] Ob Ultrasound Work Phone: [facility] 06-18-2023 14:25-0400 Systolic blood pressure 110 mm[Hg] Ob Ultrasound Work Phone: [facility] 06-14-2023 14:18-0400 Body weight 83.92 kg Inna Garcia MD Work Phone: [facility] 06-14-2023 14:18-0400 Diastolic blood pressure 85 mm[Hg] Inna Garcia MD Work Phone: [facility] 06-14-2023 14:18-0400 Systolic blood pressure 132 mm[Hg] Inna Garcia MD Work Phone: [facility] 06-12-2023 00:11-0400 Heart rate 89 /min [facility] 06-12-2023 00:11-0400 SaO2% (BldA) [Mass fraction] 99 % [facility] 06-12-2023 00:06-0400 Heart rate 96 /min [facility] 06-12-2023 00:06-0400 SaO2% (BldA) [Mass fraction] 98 % [facility] 06-11-2023 22:18-0400 Body height 160.02 cm [facility] 06-11-2023 22:18-0400 Body mass index (BMI) [Ratio] 32.4 kg/m2 [facility] 06-11-2023 22:18-0400 Body weight 83 kg [facility] 06-11-2023 22:14-0400 Body temperature 98 [degF] [facility] 06-11-2023 22:14-0400 Respiratory rate 18 /min [facility] 06-11-2023 22:08-0400 Diastolic blood pressure 73 mm[Hg] [facility] 06-11-2023 22:08-0400 Systolic blood pressure 120 mm[Hg] [facility] 06-10-2023 13:29-0400 Diastolic blood pressure 76 mm[Hg] [facility] 06-10-2023 13:29-0400 Heart rate 84 /min [facility] 06-10-2023 13:29-0400 Systolic blood pressure 122 mm[Hg] [facility] 06-10-2023 11:23-0400 Body height 160.02 cm [facility] 06-10-2023 11:23-0400 Body weight 85.27 kg [facility] 06-10-2023 09:42-0400 Diastolic blood pressure 56 mm[Hg] [facility] 06-10-2023 09:42-0400 Heart rate 130 /min [facility] 06-10-2023 09:42-0400 SaO2% (BldA) [Mass fraction] 99 % [facility] 06-10-2023 09:42-0400 Systolic blood pressure 98 mm[Hg] [facility] 06-10-2023 03:03-0400 Body temperature 97.4 [degF] [facility] 06-10-2023 03:03-0400 Respiratory rate 16 /min [facility] 06-07-2023 09:50-0400 Body weight 83.92 kg Inna Garcia MD Work Phone: [facility] 06-07-2023 09:50-0400 Diastolic blood pressure 73 mm[Hg] Inna Garcia MD Work Phone: [facility] 06-07-2023 09:50-0400 Systolic blood pressure 113 mm[Hg] Inna Garcia MD Work Phone: [facility] 06-03-2023 13:23-0400 Body temperature 97.9 [degF] Treatment Wstr Work Phone: [facility] 06-03-2023 13:23-0400 Diastolic blood pressure 76 mm[Hg] Treatment Wstr Work Phone: [facility] 06-03-2023 13:23-0400 Heart rate 93 /min Treatment Wstr Work Phone: [facility] 06-03-2023 13:23-0400 Respiratory rate 20 /min Treatment Wstr Work Phone: [facility] 06-03-2023 13:23-0400 Systolic blood pressure 107 mm[Hg] Treatment Wstr Work Phone: [facility] 06-01-2023 13:58-0400 Body weight 84.28 kg Inna Garcia MD Work Phone: [facility] 06-01-2023 13:58-0400 Diastolic blood pressure 82 mm[Hg] Inna Garcia MD Work Phone: [facility] 06-01-2023 13:58-0400 Systolic blood pressure 121 mm[Hg] Inna Garcia MD Work Phone: [facility] 05-26-2023 15:30-0400 Body weight 83.46 kg Génesis Wang MD Work Phone: [facility] 05-26-2023 15:30-0400 Diastolic blood pressure 70 mm[Hg] Génesis Wang MD Work Phone: [facility] 05-26-2023 15:30-0400 Systolic blood pressure 118 mm[Hg] Génesis Wang MD Work Phone: [facility] 05-26-2023 14:44-0400 Body temperature 97.59 [degF] Treatment Wstr Work Phone: [facility] 05-26-2023 14:44-0400 Diastolic blood pressure 78 mm[Hg] Treatment Wstr Work Phone: [facility] 05-26-2023 14:44-0400 Heart rate 94 /min Treatment Wstr Work Phone: [facility] 05-26-2023 14:44-0400 Respiratory rate 16 /min Treatment Wstr Work Phone: [facility] 05-26-2023 14:44-0400 SaO2% (BldA) [Mass fraction] 98 % Treatment Wstr Work Phone: [facility] 05-26-2023 14:44-0400 Systolic blood pressure 114 mm[Hg] Treatment Wstr Work Phone: [facility] 05-25-2023 13:46-0400 Body height 160 cm Susi Maik TRINH [facility] 05-25-2023 13:46-0400 Body weight 84.[address] [facility] 05-24-2023 10:58-0400 Diastolic blood pressure 71 mm[Hg] Treatment Wstr Work Phone: [facility] 05-24-2023 10:58-0400 Heart rate 88 /min Treatment Wstr Work Phone: [facility] 05-24-2023 10:58-0400 Systolic blood pressure 103 mm[Hg] Treatment Wstr Work Phone: [facility] 05-24-2023 09:57-0400 Body temperature 98.01 [degF] Treatment Wstr Work Phone: [facility] 05-24-2023 09:57-0400 Respiratory rate 20 /min Treatment Wstr Work Phone: [facility] 05-19-2023 08:02-0500 Body weight 81.65 kg Génesis Wang MD Work Phone: [facility] 05-19-2023 08:02-0500 Diastolic blood pressure 60 mm[Hg] Génesis Wang MD Work Phone: [facility] 05-19-2023 08:02-0500 Systolic blood pressure 110 mm[Hg] Gnéesis Wang MD Work Phone: [facility] 05-17-2023 14:36-0500 Body height 160.02 cm [facility] 05-17-2023 14:36-0500 Body mass index (BMI) [Ratio] 31.9 kg/m2 [facility] 05-17-2023 14:36-0500 Body weight 81.9 kg [facility] 05-17-2023 14:32-0500 Diastolic blood pressure 73 mm[Hg] [facility] 05-17-2023 14:32-0500 Heart rate 85 /min [facility] 05-17-2023 14:32-0500 Systolic blood pressure 111 mm[Hg] [facility] 05-17-2023 14:31-0500 Body temperature 98.6 [degF] [facility] 05-17-2023 14:31-0500 Respiratory rate 16 /min [facility] 05-17-2023 14:31-0500 SaO2% (BldA) [Mass fraction] 97 % [facility] 04-28-2023 13:38-0500 Body weight 80.74 kg Génesis Wang MD Work Phone: [facility] 04-28-2023 13:38-0500 Diastolic blood pressure 68 mm[Hg] Génesis Wang MD Work Phone: [facility] 04-28-2023 13:38-0500 Systolic blood pressure 120 mm[Hg] Génesis Wang MD Work Phone: [facility] 04-12-2023 23:44-0500 Diastolic blood pressure 75 mm[Hg] [facility] 04-12-2023 23:44-0500 Heart rate 73 /min [facility] 04-12-2023 23:44-0500 Respiratory rate 17 /min [facility] 04-12-2023 23:44-0500 SaO2% (BldA) [Mass fraction] 98 % [facility] 04-12-2023 23:44-0500 Systolic blood pressure 110 mm[Hg] [facility] 04-12-2023 19:37-0500 Body height 160.02 cm [facility] 04-12-2023 19:37-0500 Body mass index (BMI) [Ratio] 30.7 kg/m2 [facility] 04-12-2023 19:37-0500 Body temperature 97.7 [degF] [facility] 04-12-2023 19:37-0500 Body weight 78.56 kg [facility] 02-18-2023 23:52-0500 Heart rate 66 /min [facility] 02-18-2023 23:52-0500 Respiratory rate 15 /min [facility] 02-18-2023 23:52-0500 SaO2% (BldA) [Mass fraction] 100 % [facility] 02-18-2023 20:14-0500 Body height 160.02 cm [facility] 02-18-2023 20:14-0500 Body mass index (BMI) [Ratio] 29.2 kg/m2 [facility] 02-18-2023 20:14-0500 Body temperature 97.6 [degF] [facility] 02-18-2023 20:14-0500 Body weight 74.84 kg [facility] 02-18-2023 20:14-0500 Diastolic blood pressure 80 mm[Hg] [facility] 02-18-2023 20:14-0500 Systolic blood pressure 128 mm[Hg] [facility] 01-29-2023 11:01-0500 Body weight 73.03 kg Yovani Mora MD Work Phone: [facility] 01-29-2023 11:01-0500 Diastolic blood pressure 74 mm[Hg] Yovani Mora MD Work Phone: [facility] 01-29-2023 11:01-0500 Systolic blood pressure 118 mm[Hg] Yovani Mora MD Work Phone: [facility] 01-01-2023 10:59-0400 Body height 160 cm Kayy Elk Horn INDUSTRIAL WELDER.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 Work Phone: [facility] 01-01-2023 10:59-0400 Body weight 76.2 kg Kayy Elk Horn INDUSTRIAL WELDER.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 Work Phone: [facility] 01-01-2023 10:59-0400 Diastolic blood pressure 74 mm[Hg] Kayy Coretta INDUSTRIAL WELDER.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 Work Phone: [facility] 01-01-2023 10:59-0400 Systolic blood pressure 118 mm[Hg] Kayy Elk Horn INDUSTRIAL WELDER.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 Work Phone: [facility] 12-19-2022 20:29-0400 Body mass index (BMI) [Ratio] 29.5 kg/m2 [facility] 12-19-2022 20:29-0400 Body temperature 97.1 [degF] [facility] 12-19-2022 20:29-0400 Body weight 75.74 kg [facility] 12-19-2022 20:29-0400 Diastolic blood pressure 91 mm[Hg] [facility] 12-19-2022 20:29-0400 Heart rate 94 /min [facility] 12-19-2022 20:29-0400 Respiratory rate 15 /min [facility] 12-19-2022 20:29-0400 SaO2% (BldA) [Mass fraction] 100 % [facility] 12-19-2022 20:29-0400 Systolic blood pressure 127 mm[Hg] [facility] 12-17-2022 09:05-0400 Body mass index (BMI) [Ratio] 29.8 kg/m2 [facility] 12-17-2022 09:05-0400 Body temperature 98 [degF] [facility] 12-17-2022 09:05-0400 Body weight 76.4 kg [facility] 12-17-2022 09:05-0400 Diastolic blood pressure 92 mm[Hg] [facility] 12-17-2022 09:05-0400 Heart rate 81 /min [facility] 12-17-2022 09:05-0400 Respiratory rate 14 /min [facility] 12-17-2022 09:05-0400 SaO2% (BldA) [Mass fraction] 98 % [facility] 12-17-2022 09:05-0400 Systolic blood pressure 138 mm[Hg] [facility] 12-17-2022 08:43-0400 Body temperature 97.59 [degF] Steffanie Navarro APRN.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 Work Phone: [facility] 12-17-2022 08:43-0400 Body weight 76.39 kg Stefafnie Navarro APRN.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 Work Phone: [facility] 12-17-2022 08:43-0400 Diastolic blood pressure 96 mm[Hg] Steffanie Navarro APRN.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 Work Phone: [facility] 12-17-2022 08:43-0400 Heart rate 73 /min Steffanie Navarro APRN.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 Work Phone: [facility] 12-17-2022 08:43-0400 Respiratory rate 20 /min Steffanie Navarro APRN.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 Work Phone: [facility] 12-17-2022 08:43-0400 SaO2% (BldA) [Mass fraction] 100 % Steffanie Navarro APRN.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 Work Phone: [facility] 12-17-2022 08:43-0400 Systolic blood pressure 120 mm[Hg] Steffanie Navarro APRN.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 Work Phone: [facility] 11-17-2022 14:37-0400 Diastolic blood pressure 83 mm[Hg] [facility] 11-17-2022 14:37-0400 Heart rate 98 /min [facility] 11-17-2022 14:37-0400 Respiratory rate 18 /min [facility] 11-17-2022 14:37-0400 SaO2% (BldA) [Mass fraction] 93 % [facility] 11-17-2022 14:37-0400 Systolic blood pressure 134 mm[Hg] [facility] 11-17-2022 10:24-0400 Body height 160.02 cm [facility] 11-17-2022 10:24-0400 Body mass index (BMI) [Ratio] 31.5 kg/m2 [facility] 11-17-2022 10:24-0400 Body temperature 97 [degF] [facility] 11-17-2022 10:24-0400 Body weight 80.7 kg [facility] 11-02-2022 12:25-0400 Body height 160 cm Keith Arriaga APRN.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 Work Phone: [facility] 11-02-2022 12:25-0400 Body temperature 97.59 [degF] Jennalee Chagin INDUSTRIAL WELDER.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 Work Phone: [facility] 11-02-2022 12:25-0400 Body weight 83.42 kg Jennalee Chagin INDUSTRIAL WELDER.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 Work Phone: [facility] 11-02-2022 12:25-0400 Diastolic blood pressure 86 mm[Hg] Jennalee Chagin INDUSTRIAL WELDER.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 Work Phone: [facility] 11-02-2022 12:25-0400 Heart rate 86 /min Jennalee Chagin INDUSTRIAL WELDER.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 Work Phone: [facility] 11-02-2022 12:25-0400 Respiratory rate 18 /min Jennalee Chagin INDUSTRIAL WELDER.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 Work Phone: [facility] 11-02-2022 12:25-0400 SaO2% (BldA) [Mass fraction] 97 % Jennalee Chagin INDUSTRIAL WELDER.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 Work Phone: [facility] 11-02-2022 12:25-0400 Systolic blood pressure 126 mm[Hg] Jennalee Chagin INDUSTRIAL WELDER.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 Work Phone: [facility] 10-16-2022 12:56-0400 Body weight 84.01 kg Kayy Elk Horn INDUSTRIAL WELDER.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 Work Phone: [facility] 10-16-2022 12:56-0400 Diastolic blood pressure 82 mm[Hg] Kayy Elk Horn INDUSTRIAL WELDER.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 Work Phone: [facility] 10-16-2022 12:56-0400 Systolic blood pressure 112 mm[Hg] Kayy Coretta INDUSTRIAL WELDER.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 Work Phone: [facility] 08-28-2022 02:35-0400 Diastolic blood pressure 87 mm[Hg] [facility] 08-28-2022 02:35-0400 Heart rate 94 /min [facility] 08-28-2022 02:35-0400 Respiratory rate 17 /min [facility] 08-28-2022 02:35-0400 SaO2% (BldA) [Mass fraction] 100 % [facility] 08-28-2022 02:35-0400 Systolic blood pressure 123 mm[Hg] [facility] 08-27-2022 21:53-0400 Body height 160.02 cm [facility] 08-27-2022 21:53-0400 Body mass index (BMI) [Ratio] 36.4 kg/m2 [facility] 08-27-2022 21:53-0400 Body temperature 98.3 [degF] [facility] 08-27-2022 21:53-0400 Body weight 93.4 kg [facility] 08-11-2022 13:11-0400 Body weight 101.[address] Work Phone: [facility] 05-28-2022 07:57-0400 Body weight 110 kg Cristy Bulow INDUSTRIAL WELDER.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 Work Phone: [facility] 05-28-2022 07:57-0400 Diastolic blood pressure 74 mm[Hg] Cristy Bulow INDUSTRIAL WELDER.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 Work Phone: [facility] 05-28-2022 07:57-0400 Heart rate 95 /min Cristy Bulow INDUSTRIAL WELDER.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 Work Phone: [facility] 05-28-2022 07:57-0400 Respiratory rate 18 /min Cristy Bulow INDUSTRIAL WELDER.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 Work Phone: [facility] 05-28-2022 07:57-0400 Systolic blood pressure 126 mm[Hg] Cristy Bulow INDUSTRIAL WELDER.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 Work Phone: [facility] 10-03-2021 09:59-0400 Body height 159.2 cm Brenda Yots MD Work Phone: [facility] 10-03-2021 09:59-0400 Body weight 105.78 kg Brenda Yost MD Work Phone: [facility] 10-03-2021 09:59-0400 Diastolic blood pressure 82 mm[Hg] Brenda Yost MD Work Phone: [facility] 10-03-2021 09:59-0400 Heart rate 85 /min Brenda Yost MD Work Phone: [facility] 10-03-2021 09:59-0400 Systolic blood pressure 120 mm[Hg] Brenda Yost MD Work Phone: [facility] 08-22-2021 14:51-0400 Body height 161.3 cm Kayy Elk Horn INDUSTRIAL WELDER.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 Work Phone: [facility] 08-22-2021 14:51-0400 Body weight 101.42 kg Kayy Coretta INDUSTRIAL WELDER.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 Work Phone: [facility] 08-22-2021 14:51-0400 Diastolic blood pressure 70 mm[Hg] Kayy Coretta INDUSTRIAL WELDER.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 Work Phone: [facility] 08-22-2021 14:51-0400 Systolic blood pressure 116 mm[Hg] Kayy Elk Horn INDUSTRIAL WELDER.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 Work Phone: [facility] 07-22-2021 11:04-0400 Body temperature 97.5 [degF] Kimi Jeffrey INDUSTRIAL WELDER.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 Work Phone: [facility] 07-22-2021 11:04-0400 Body weight 103.42 kg Kimi Jeffrey INDUSTRIAL WELDER.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 Work Phone: [facility] 07-22-2021 11:04-0400 Diastolic blood pressure 74 mm[Hg] Kimi Jeffrey INDUSTRIAL WELDER.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 Work Phone: [facility] 07-22-2021 11:04-0400 Heart rate 98 /min Kimi Jeffrey INDUSTRIAL WELDER.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 Work Phone: [facility] 07-22-2021 11:04-0400 Respiratory rate 16 /min Kimi Jeffrey INDUSTRIAL WELDER.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 Work Phone: [facility] 07-22-2021 11:04-0400 SaO2% (BldA) [Mass fraction] 99 % Kimi Jeffrey INDUSTRIAL WELDER.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 Work Phone: [facility] 07-22-2021 11:04-0400 Systolic blood pressure 122 mm[Hg] Kimi Rachele INDUSTRIAL WELDER.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 Work Phone: [facility] Encounters Encounter Date Encounter Type Care Provider Facility Start: 09-25-2024 End: 09-25-2024 Telephone encounter Yovani Mora MD Work Phone: OB/Gynecology Comment on above: follow-up L&D Start: 09-23-2024 End: 09-23-2024 ambulatory Natalie LUCAS Work Phone: [facility] Start: 09-23-2024 End: 09-23-2024 Patient encounter procedure Kimi Smith CNM [facility] Work Phone: Start: 09-21-2024 End: 09-21-2024 Patient encounter procedure Sandra Edwards MD Work Phone: OB/Gynecology Comment on above: Insulin controlled g estational diabetes mellitus (GDM) in second trimester (HCC) (Primary Dx); 33 weeks gestation of (HCC); Polyhydramnios in third trimester complication, single or unspecified fetus (HCC); Anemia affecting , antepartum (HCC) Start: 09-21-2024 End: 09-21-2024 ambulatory SANDRA EDWARDS Facility:[facility] Start: 09-07-2024 End: 09-07-2024 Patient encounter procedure Whi Tech 1 Die Stamper [facility] Comment on [...] gestation of (HCC) Start: 09-07-2024 End: 09-07-2024 ambulatory GÉNESIS WANG Facility:[facility] Start: 09-01-2024 End: 09-04-2024 Refill Eddi Sneed [...] Start: 08-29-2024 End: 08-29-2024 ambulatory INNA GARCIA Facility:[facility] Start: 08-15-2024 End: 08-15-2024 Telephone encounter Nurse Die Stamper Joy Zarate Work Phone: Obstetrics/Gynecology Comment on above: PRAF Start: 08-14-2024 End: 08-14-2024 ambulatory GÉNESIS WANG Facility:[facility] Start: 08-14-2024 End: 08-14-2024 ambulatory SANDRA EDWARDS Facility:[facility] Start: 08-14-2024 End: 08-14-2024 Patient encounter procedure [...] Start: 07-25-2024 End: 07-25-2024 ambulatory EDDI SNEED Facility:[facility] Start: 07-24-2024 End: 07-24-2024 Patient encounter procedure Génesis Wang MD Work Phone: OB/Gynecology Comment on above: Supervision of high risk in second trimester (HCC) (Primary Dx); Insulin controlled gestational diabetes mellitus (GDM) in second trimester (HCC); Anemia, unspecified type; 25 weeks gestation of (HCC) Start: 07-24-2024 End: 07-24-2024 ambulatory GÉNESIS WANG Facility:[facility] Start: 06-28-2024 End: 06-28-2024 ambulatory Treatment Rm 15 Jean Pierre [facility] Work Phone: Hematology/Oncology Comment on above: Maternal iron defici ency anemia complicating , second trimester (HCC) (Primary Dx); Impaired intestinal absorption (HCC); History of gastric bypass Start: 2024 End: 06-27-2024 Telephone encounter Nurse Die Stamper Joy Dudley Work Phone: Obstetrics/Gynecology Comment on above: PRAF Start: 06-23-2024 End: 06-23-2024 Telephone encounter Eddi Sneed MD Work Phone: Endocrinology & Metabolic [place] Comment on above: Insurance Authorizat ion ((HUMULIN [...] for supervision of normal in multigravida (HCC) Start: 06-23-2024 End: 06-23-2024 ambulatory Treatment Rm 16 Jean Pierre [facility] Work Phone: Hematology/Oncology Comment on above: Maternal iron defici ency anemia complicating , second trimester (HCC) (Primary Dx); Impaired intestinal absorption (HCC); History of gastric bypass Start: 06-23-2024 End: 06-23-2024 Patient encounter procedure Whi Tech 1 Die Stamper [facility] Comment on above: Encounter for anatomic survey (HCC) (Primary Dx); Pre-existing diabetes mellitus in in second trimester (HCC); 20 weeks gestation of (HCC) Start: 06-22-2024 End: 06-22-2024 ambulatory EDDI SNEED Facility:[facility] Start: 06-22-2024 End: 06-22-2024 Patient encounter procedure Edid Sneed MD Work Phone: Endocrinology Comment on above: Insulin controlled g estational diabetes mellitus (GDM) in second trimester (HCC) (Primary Dx); 20 weeks gestation of (HCC); Diabetes mellitus type 1, controlled, without complications (HCC) Start: 06-22-2024 End: 06-23-2024 Telephone encounter Eddi Sneed MD Work Phone: Endocrinology Comment on above: Tissue Rewinder - O ther (Prior Auth for HumuLin N kwik Pen 100u/ML) Start: 06-21-2024 End: 06-21-2024 Telephone encounter Kalpana Laguerre APRN.CNM Work Phone: OB/Gynecology Start: 06-21-2024 End: 06-21-2024 Nursing evaluation of patient and report Samantha Elias RN Work Phone: Endocrinology Comment on above: Hx of gestational di abetes in prior , currently (HCC) (Primary Dx) Start: 06-21-2024 End: 06-21-2024 ambulatory Treatment Rm 15 Jean Pierre [facility] Work Phone: Hematology/Oncology Comment on above: Maternal iron defici ency anemia complicating , second trimester (HCC) (Primary Dx); Impaired intestinal absorption (HCC); History of gastric bypass Start: 06-17-2024 End: 06-17-2024 Orders Only Cristy Swenson DO Work Phone: [place] [facility] Start: 06-16-2024 End: 06-17-2024 Evaluation and management of inpatient JOCELYNN MACKENZIE Facility:[facility] Start: 06-15-2024 End: 06-16-2024 ambulatory Yovani Mora MD Work Phone: OB/Gynecology Comment on above: Glucose Start: 06-05-2024 End: 06-05-2024 ambulatory Luh Quinn RNstore sales manager [place] in [place] Comment on above: Blood Management Start: 05-31-2024 End: 05-31-2024 ambulatory YOVANI MORA Facility:[facility] Start: 05-31-2024 End: 05-31-2024 Patient encounter procedure Yovani Mora MD Work Phone: OB/Gynecology Comment on above: 17 weeks gestation o f (Primary Dx); Encounter for supervision of normal in multigravida; Anemia affecting , antepartum; Diet controlled gestational diabetes mellitus (GDM) in second trimester; Other iron deficiency anemia; Impaired intestinal absorption Start: 05-31-2024 End: 07-31-2024 Follow-up encounter Kalpana Laguerre APRN.CNM Work Phone: OB/Gynecology Start: 05-30-2024 End: 05-30-2024 ambulatory SHAKEEL VILLASENOR Facility:[facility] Start: 04-28-2024 End: 06-28-2024 Follow-up encounter Kayy Longo APRN.CNP Work Phone: OB/Gynecology Start: 04-26-2024 End: 04-26-2024 ambulatory SHAKEEL VILLASENOR Facility:[facility] Start: 04-26-2024 End: 04-26-2024 Patient encounter procedure Kalpana Laguerre APRN.CNSandra Work Phone: OB/Gynecology Comment on above: Encounter [...] on above: Orders Start: 04-14-2024 End: 04-14-2024 [facility] Facility:[facility] Start: 04-04-2024 End: 04-04-2024 Telephone encounter Inna Carroll RN Obstetrics/Gynecolog y Comment on above: Tissue Rewinder - O ther (PRAF) Start: 03-31-2024 End: 03-31-2024 [facility] SHAKEEL VILLASENOR Facility:[facility] Start: 03-31-2024 End: 03-31-2024 Patient encounter procedure Kayy Longo APRN.CNP Work Phone: OB/Gynecology Comment on above: Encounter for superv ision of normal in multigravida (Primary Dx); Screening for cervical cancer; 8 weeks gestation of ; Encounter for anatomic survey; Hx of gestational diabetes in prior , currently Start: 03-16-2024 End: 03-16-2024 [facility] Facility:[facility] Start: 03-16-2024 End: 03-16-2024 Patient encounter procedure Die Stamper [facility] Work Phone: OB/Gynecology Comment on above: Missed menses (Prima ry Dx); Date of last menstrual period (LMP) unknown; 6 weeks gestation of ; Paratubal cyst Start: 03-04-2024 End: 03-04-2024 ambulatory SHAKEEL VILLASENOR Facility:[facility] Start: 03-03-2024 End: 03-06-2024 Telephone encounter Inna Garcia MD Work Phone: OB/Gynecology Start: 03-02-2024 End: 03-02-2024 ambulatory SHAKEEL VILLASENOR Facility:[facility] Start: 03-01-2024 End: 03-01-2024 Telephone encounter Inna Garcia MD Work Phone: OB/Gynecology Comment on above: test Start: 02-09-2024 End: 02-11-2024 Telephone encounter Génesis Wang MD Work Phone: OB/Gynecology Comment on above: Medication Question Start: 02-02-2024 End: 02-02-2024 ambulatory [facility] Facility:[facility] Start: 02-02-2024 End: 02-02-2024 Patient encounter procedure Génesis Wang MD Work Phone: OB/Gynecology Comment on above: Complete (P rimary Dx); Ovarian cyst, left; Encounter for initial prescription of vaginal ring hormonal contraceptive Start: 01-31-2024 End: 01-31-2024 Telephone encounter Kayy Coretta INDUSTRIAL WELDER.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 Work Phone: OB/Gynecology Comment on above: Results Start: 01-28-2024 End: 01-28-2024 [facility] Facility:[facility] Start: 01-26-2024 End: 01-26-2024 ambulatory KAYY CORETTA Facility:[facility] Start: 01-25-2024 End: 01-25-2024 Telephone encounter Kayy Elk Horn INDUSTRIAL WELDER.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 Work Phone: OB/Gynecology Comment on above: Results Start: 01-24-2024 End: 01-24-2024 Telephone encounter Kayy Coretta INDUSTRIAL WELDER.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 Work Phone: OB/Gynecology Comment on above: Missed Menses Start: 01-24-2024 End: 01-24-2024 [facility] Facility:[facility] Start: 01-03-2024 End: 01-04-2024 E-mail encounter from caregiver Luisana Quintero MD Work Phone: Neurology Start: 01-03-2024 End: 01-04-2024 Patient encounter procedure Luisana Quintero MD Work Phone: Neurology Comment on above: Appointment Request Start: 12-17-2023 End: 12-28-2023 Telephone encounter Kayy Elk Horn INDUSTRIAL WELDER.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 Work Phone: OB/Gynecology Comment on above: Results Start: 12-16-2023 End: 12-16-2023 ambulatory [facility] OB/Gynecology Start: 12-16-2023 End: 12-16-2023 Patient encounter procedure Whi Tech 1 Die Stamper [facility] OB/Gynecology Start: 10-04-2023 Telephone encounter Kayy correia INDUSTRIAL WELDER.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 Work Phone: OB/Gynecology Comment on above: Results Start: 10-01-2023 End: 10-01-2023 ambulatory SHAKEEL Lamb [facility] OB/Gynecology Start: 10-01-2023 End: 10-01-2023 Patient encounter procedure Whi Tech 1 Die Stamper [facility] OB/Gynecology Start: 09-13-2023 End: 09-13-2023 Patient encounter procedure Kayy Longo INDUSTRIAL WELDER.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 Work Phone: OB/Gynecology Comment on above: Pelvic pain in femal e (Primary Dx) Start: 08-11-2023 End: 08-11-2023 ambulatory Natalie LUCAS Facility:[facility] Start: 07-13-2023 End: 07-13-2023 Patient encounter procedure Yovani Mora MD Work Phone: OB/Gynecology Comment on above: Routine f ollow-up (Primary Dx); Impaired glucose tolerance in , delivered Start: 07-05-2023 ambulatory Sandra Herrera Work Phone: OB/Gynecology Comment on above: Ob Delivery Note Start: 07-04-2023 End: 07-06-2023 Evaluation and management of inpatient [facility] Work Phone: Start: 07-02-2023 End: 07-02-2023 ambulatory Kimi Smith [facility] Work Phone: Start: 07-02-2023 Telephone encounter Kimi almeida INDUSTRIAL WELDER.CNM Work Phone: OB/Gynecology Comment on above: OB DIEGO, vision change s, RUQ pain Start: 07-02-2023 End: 07-02-2023 Patient encounter procedure [facility] Work Phone: Comment on above: History of gastric b ypass (Primary Dx); Insulin controlled gestational diabetes mellitus (GDM) in third trimester; Polyhydramnios in third trimester complication, single or unspecified fetus; 36 weeks gestation of Start: 06-28-2023 End: 06-28-2023 Patient encounter procedure Yovani Mora MD Work Phone: OB/Gynecology Comment on above: Supervision of other high risk pregnancies, third trimester (Primary Dx); Insulin controlled gestational diabetes mellitus (GDM) in third trimester; Polyhydramnios in third trimester complication, single or unspecified fetus; 35 weeks gestation of ; History of gastric bypass Start: 06-25-2023 End: 06-25-2023 Patient encounter procedure Génesis Wang MD Work Phone: OB/Gynecology Comment on [...] Start: 06-21-2023 End: 06-21-2023 Patient encounter procedure Yovani Mora MD Work Phone: OB/Gynecology Comment on above: Supervision of other high risk pregnancies, third trimester (Primary Dx); 34 weeks gestation of ; Polyhydramnios in third trimester complication, single or unspecified fetus; Insulin controlled gestational diabetes mellitus (GDM) in third trimester; History of gastric bypass; Anemia during in third trimester Start: 06-18-2023 End: 06-18-2023 Patient encounter procedure Die Stamper [facility] Work Phone: OB/Gynecology Comment on above: Insulin controlled g estational diabetes mellitus (GDM) in third trimester (Primary Dx); Polyhydramnios in third trimester complication, single or unspecified fetus; History of gastric bypass; 34 weeks gestation of Start: 06-14-2023 End: 06-14-2023 Office outpatient visit 15 minutes Inna Garcia MD Work Phone: OB/Gynecology Comment on above: 33 weeks gestation o f (Primary Dx); Insulin controlled gestational diabetes mellitus (GDM) in third trimester; Polyhydramnios in third trimester complication, single or unspecified fetus Start: 06-11-2023 End: 06-12-2023 ambulatory [facility] Work Phone: Start: 06-11-2023 End: 06-12-2023 Patient encounter procedure [facility] Work Phone: Start: 06-09-2023 Telephone encounter Inna alonzo MD Work Phone: OB/Gynecology Comment on above: blood sugars Start: 06-09-2023 End: 06-10-2023 Evaluation and management of inpatient [facility] Work Phone: Start: 06-09-2023 End: 06-10-2023 observation encounter [facility] Work Phone: Start: 06-07-2023 End: 06-07-2023 Office outpatient visit 25 minutes Inna Garcia MD Work Phone: OB/Gynecology Comment on above: Insulin controlled g estational diabetes mellitus (GDM) in third trimester (Primary Dx); 32 weeks gestation of ; Polyhydramnios in third trimester complication, single or unspecified fetus; Anemia during in third trimester Start: 06-03-2023 End: 06-03-2023 ambulatory Treatment Rm 12 Jean Pierre [facility] Work Phone: Hematology/Oncology Comment on above: Maternal iron defici ency anemia complicating , third trimester (Primary Dx); Impaired intestinal absorption Start: 06-02-2023 End: 06-02-2023 Patient encounter procedure Die Stamper [place] [facility] Work Phone: OB/Gynecology Comment on above: Insulin controlled g estational diabetes mellitus (GDM) in third trimester; Polyhydramnios in third trimester complication, single or unspecified fetus Start: 06-01-2023 End: 06-01-2023 ambulatory Treatment Rm 12 Jean Pierre [facility] Work Phone: Hematology/Oncology Comment on above: [...] on above: Appointment Start: 05-31-2023 Telephone encounter Génesis Wang MD Work Phone: OB/Gynecology Comment on above: Insulin [place] Start: 05-27-2023 Telephone encounter Génesis Wang MD Work Phone: OB/Gynecology Comment on above: Insurance Authorizat ion Start: 05-26-2023 End: 05-26-2023 ambulatory Treatment 8 [facility] Work Phone: Hematology/Oncology Comment on above: Maternal iron defici ency anemia complicating , third trimester (Primary Dx); Impaired intestinal absorption Start: 05-26-2023 End: 05-26-2023 Patient encounter procedure Die Stamper [place] [facility] Work Phone: OB/Gynecology Comment on above: [...] 05-24-2023 ambulatory Treatment Rm 12 Jean Pierre [facility] Work Phone: Hematology/Oncology Comment on above: Maternal iron defici ency anemia complicating , third trimester (Primary Dx); Impaired intestinal absorption Start: 05-20-2023 Telephone encounter Tissue Rewinder RN Obstetrics/Gynecology Comment on above: PRAF Start: 05-19-2023 End: 05-19-2023 Patient encounter procedure Génesis Wang MD Work Phone: OB/Gynecology Comment on above: Gestational diabetes mellitus, class A1 (Primary Dx); Supervision of high risk in second trimester; Anemia during in second trimester; 30 weeks gestation of Start: 05-17-2023 End: 05-17-2023 ambulatory [facility] Work Phone: Start: 05-17-2023 End: 05-17-2023 Patient encounter procedure [facility] [place] Work Phone: Start: 05-04-2023 ambulatory Luh Quinn RN Interna l Medicine [facility] Comment on above: Blood Management Maternal iron defici ency anemia complicating , third trimester; Impaired intestinal absorption Start: 04-30-2023 Telephone encounter Génesis Wagn MD Work Phone: OB/Gynecology Comment on above: Blood Management Breast Pump Start: 04-29-2023 Telephone encounter Génesis Wang MD Work Phone: OB/Gynecology Comment on above: Results Start: 04-28-2023 End: 04-28-2023 Patient encounter procedure Génesis Wang MD Work Phone: OB/Gynecology Comment on above: Supervision of high risk in second trimester (Primary Dx); History of gastric bypass; Rh negative state in antepartum period; Need for vaccination; 27 weeks gestation of Start: 04-12-2023 End: 04-12-2023 Emergency department patient visit [facility] Work Phone: Start: 02-18-2023 End: 02-19-2023 [facility] Start: 01-29-2023 End: 01-29-2023 Patient encounter procedure Yovani Mora MD Work Phone: OB/Gynecology Comment on above: Supervision of high risk in second trimester (Primary Dx); History of gastric bypass; 14 weeks gestation of Start: 01-05-2023 Telephone encounter Raquel Brown RN Obstetrics/Gynecology Start: 01-01-2023 End: 01-01-2023 Patient encounter procedure Kayy Longo INDUSTRIAL WELDER.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 Work Phone: OB/Gynecology Comment on above: 10 weeks gestation o f (Primary Dx); with uncertain dates in first trimester; History of gastric bypass; Hx of gestational diabetes mellitus, not currently Start: 12-19-2022 End: 12-20-2022 Emergency department patient visit [facility] Work Phone: Start: 12-17-2022 End: 12-17-2022 Emergency department patient visit [facility] Work Phone: Start: 12-17-2022 End: 12-17-2022 Patient encounter procedure Steffanie Navarro APRN.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 Work Phone: [facility] Comment on above: Lower abdominal pain (Primary Dx) Start: 12-03-2022 End: 12-03-2022 Subsequent hospital visit by physician [facility] Work Phone: Radiology Comment on above: , location unknown [[id number]] Start: 12-01-2022 ambulatory Yovani perkins MD Work Phone: OB/Gynecology Comment on above: , location unknown (Primary Dx) Start: 12-01-2022 Patient encounter procedure Yovani Mora MD Work Phone: [facility] Start: 11-19-2022 Telephone encounter Gracie campo MD Work Phone: OB/Gynecology Comment on above: Patient Update Start: 11-19-2022 End: 11-19-2022 ambulatory [facility] Work Phone: Start: 11-19-2022 End: 11-19-2022 Patient encounter procedure [facility] Work Phone: Start: 11-17-2022 Telephone encounter Gracie campo MD Work Phone: OB/Gynecology Comment on above: Left sided pain; Ear ly Start: 11-17-2022 End: 11-17-2022 Emergency department patient visit [facility] Work Phone: Start: 11-05-2022 Telephone encounter Kayy correia INDUSTRIAL WELDER.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 Work Phone: OB/Gynecology Comment on above: Results Start: 11-04-2022 End: 11-04-2022 Subsequent hospital visit by physician [facility] Work Phone: Radiology Comment on above: Breast cyst, left [N 60.02] Start: 11-02-2022 End: 11-02-2022 Subsequent hospital visit by physician Xr [facility] Comment on above: Sinobronchitis [J32. 9, J40] Start: 11-02-2022 End: 11-02-2022 Patient encounter procedure Keith Arriaga INDUSTRIAL WELDER.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 Work Phone: [facility] Comment on above: Sinobronchitis (Prim janelle Dx); Strep pharyngitis Start: 10-16-2022 End: 10-16-2022 Patient encounter procedure Kayy Longo INDUSTRIAL WELDER.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 Work Phone: OB/Gynecology Comment on above: Encounter for gyneco logical examination without abnormal finding (Primary Dx); Pelvic pain in female; Breast cyst, left Start: 10-16-2022 End: 10-16-2022 Patient encounter status Kayy Longo INDUSTRIAL WELDER.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 Work Phone: [facility] Start: 09-29-2022 End: 09-30-2022 ambulatory [facility] Facility:[facility] Start: 09-28-2022 Chart abstracting Jeffery funez RD Work Phone: General Surgery Start: 09-18-2022 End: 09-18-2022 Admission to same day surgery center Brenda Yost MD Work Phone: General Surgery Comment on above: Food intolerance (Pr imary Dx); Bariatric surgery status Start: 09-18-2022 End: 09-18-2022 Telemedicine consultation with patient Brenda Yost MD Work Phone: [facility] Start: 09-04-2022 End: 09-04-2022 Admission to same day surgery center Brenda Yost MD Work Phone: General Surgery Comment on above: Bariatric surgery [facility] (Primary Dx) Start: 09-04-2022 End: 09-04-2022 Telemedicine consultation with patient Brenda Yost MD Work Phone: [facility] Start: 08-31-2022 Telephone encounter Sakshi Michaels General Surgery Comment on above: Post Op Call Start: 08-28-2022 Orders Only Brenda Yost MD Work Phone: General Surgery Comment on above: Transaminitis (Prima ry Dx) Patient Update Start: 08-27-2022 End: 08-28-2022 Emergency department patient visit [facility] Start: 08-26-2022 Telephone encounter Sakshi Michaels General Surgery Comment on above: phone encounter Left upper quadrant abdominal pain (Primary Dx); Leg cramping Start: 08-11-2022 Telephone encounter Sakshi Michaels General Surgery Comment on above: phone encounter Patient Update Vomiting Start: 08-11-2022 End: 08-11-[address] Work Phone: General Surgery Comment on above: BMI 40.0-44.9, adult (HCC) (Primary Dx); Dietary counseling Start: 08-11-2022 End: 08-11-2022 Telemedicine consultation with patient Kalpana Pulidojoyce RD Work Phone: [facility] Start: 07-02-2022 ambulatory Sakshi Porter RN Gener al Surgery Comment on above: 08/16/2022 (pseudo) Start: 07-02-2022 Preprocedural examination done Sakshi Porter RN General Surgery Start: 06-02-2022 End: 06-02-2022 Nursing evaluation of patient and report Mi Nurse Work Phone: Family [facility] [place] Comment on above: Body mass index 40.0 -44.9, adult (HCC) Start: 06-02-2022 End: 06-02-2022 Subsequent hospital visit by physician Xr [facility] [place] Work Phone: Radiology Comment on above: Body mass index 40.0 -44.9, adult (HCC) [Z68.41] Start: 05-28-2022 End: 05-28-2022 Patient encounter procedure Cristy Platt APRN.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 Work Phone: Endocrinology BMI Comment on above: Body mass index 40.0 -44.9, adult (HCC) (Primary Dx) Start: 10-03-2021 End: 10-03-2021 Patient encounter procedure Brenda Yost MD Work Phone: General Surgery Comment on above: Body mass index 40.0 -44.9, adult (HCC) (Primary Dx) Start: 08-22-2021 End: 08-22-2021 Patient encounter procedure Kayy Longo APRN.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 Work Phone: OB/Gynecology Comment on above: Encounter for gyneco logical examination (general) (routine) without abnormal findings (Primary Dx); Screening for cervical cancer; Encounter for screening for human papillomavirus (HPV); Encounter for surveillance of vaginal ring hormonal contraceptive device Start: 08-22-2021 End: 08-22-2021 Patient encounter status Kayy Longo APRN.CNP Work Phone: OB/Gynecology Start: 08-18-2021 Refill Kelly Can APRN.CNP Work Phone: Family [facility] [place] Comment on above: Refill Request Start: 08-18-2021 Telephone encounter Kelly carpenter APRN.CNP Work Phone: Family [facility] [place] Comment on above: Orders (Medication/l abs ) Start: 07-22-2021 End: 07-22-2021 Patient encounter procedure Kimi Jeffrey INDUSTRIAL WELDER.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 Work Phone: [facility] Comment on above: Viral illness (Prima ry Dx); Nausea and vomiting, unspecified vomiting type Start: 05-16-2020 End: 10-16-2022 Patient encounter status Kimi Jeffrey INDUSTRIAL WELDER.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 Work Phone: [facility] Work Phone: Start: 01-12-2020 End: 01-12-2020 Subsequent hospital visit by physician Xr [facility] [place] Work Phone: Radiology Comment on above: Acute pain of left w rist [M25.532] Start: 12-30-2017 End: 08-15-2019 Patient requested procedure Sandra Edwards MD Work Phone: [facility] Procedures Date Procedure Procedure Detail Performing Clinician Start: 09-23-2024 Estimated creatinine clearance Natalie LUCAS Work Phone: Start: 09-21-2024 Urnls dip stick/tabl et rgnt non-auto w/o micrscp Sandra Edwards MD Work Phone: Start: 09-07-2024 Urnls dip stick/tabl et rgnt non-auto w/o micrscp Gracie Navarro MD Work Phone: Start: 09-07-2024 Us preg uterus after 1st trimest 1/ gestation Génesis Wang MD Work Phone: Start: 08-29-2024 Urnls dip stick/tabl et rgnt non-auto w/o micrscp Inna Garcia MD Work Phone: Start: 08-14-2024 Antibody screen [facility] SNEED Comment on above: Order Comment: Speci men Type: BLOOD SPECIMENOrdering Facility: [facility] Address: [address] [place] [id number] Result Comment: Narda ent has a previous clinically significant antibody Performed By: #### T SPN ####CC MAIN BLOOD BANKCLIA [id number] [place] [id number] [address] [place] Start: 08-14-2024 Urnls dip stick/tabl et rgnt non-auto w/o micrscp Sandra Edwards MD Work Phone: Start: 08-14-2024 Us preg uterus after 1st trimest 1/ gestation Génesis Wang MD Work Phone: Start: 07-25-2024 Follow-up visit Follow Up [facility] SNEED Start: 07-24-2024 Urnls dip stick/tabl et rgnt non-auto w/o micrscp Génesis Frantz Wang MD Work Phone: Start: 06-23-2024 Urnls dip stick/tabl et reagent auto microscopy Natalie LUCAS Work Phone: Start: 06-23-2024 Urine culture Natalie LUCAS Work Phone: Start: 06-23-2024 Us preg uterus after 1st trimest / gestation Kayy Coretta INDUSTRIAL WELDER.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 Work Phone: Start: 06-16-2024 Antibody screen JOCELYNN SMITH Comment on above: Order Comment: Speci men Type: BLOOD SPECIMEN Ordering Facility: [facility] Address: [address] [place] [address] Result Comment: Narda ent has a previous clinically significant antibody Performed By: #### T SPN #### [facility] BLOOD BANK CLIA [id number] [address] OF [facility] Start: 04-26-2024 Us preg uterus after 1st trimest / gestation Kayy Coretta INDUSTRIAL WELDER.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 Work Phone: Start: 04-14-2024 Antibody screen [facility]DI SNEED Comment on above: Order Comment: Speci men Type: BLOOD SPECIMENOrdering Facility: [facility] Address: [address] [place] [address] Result Comment: Narda ent has a previous clinically significant antibody Performed By: #### T SPN ####CC MAIN BLOOD BANKCLIA [id number] [place] [address] [place] Start: 03-31-2024 Us uterus l imited 1/> fetuses Kayy Coretta INDUSTRIAL WELDER.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 Work Phone: Start: 03-31-2024 Adult depression scr eening assessment Kayy Coretta INDUSTRIAL WELDER.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 Work Phone: Start: 03-16-2024 Us preg uterus after 1st trimest 03/15 gestation Inna Garcia MD Work Phone: Start: 12-16-2023 Us pelvic nonobstetr ic real-time image complete Kayy Coretta INDUSTRIAL WELDER.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 Work Phone: Start: 10-01-2023 Us pelvic nonobstetr ic real-time image complete Kayy [place] INDUSTRIAL WELDER.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 Work Phone: Start: 07-02-2023 biophysical pr ofile non-stress testing Génesis Wang MD Work Phone: Start: 06-28-2023 URINE OB DIP B/O Rebecc adonis Mora MD Work Phone: Start: 06-25-2023 Us preg uterus after 1st trimest 03/15 gestation Génesis Wang MD Work Phone: Start: 06-21-2023 URINE OB DIP B/O Susanecc adonis Mora MD Work Phone: Start: 06-18-2023 biophysical pr ofile non-stress testing Génesis Wang MD Work Phone: Start: 06-14-2023 URINE OB DIP B/O Virgil Garcia MD Work Phone: Start: 06-07-2023 URINE OB DIP B/O Virgil Garcia MD Work Phone: Start: 06-02-2023 Us preg uterus after 1st trimest 03/15 gestation Génesis Wang MD Work Phone: Start: 06-01-2023 URINE OB DIP B/O Virgil Garcia MD Work Phone: Start: 05-26-2023 URINE OB DIP B/O Génesis Wang MD Work Phone: Start: 05-26-2023 Us preg uterus after 1st trimest 1/ gestation Génesis Wang MD Work Phone: Start: 05-19-2023 URINE OB DIP B/O Génesis Wang MD Work Phone: Start: 04-28-2023 URINE OB DIP B/O Génesis Wang MD Work Phone: Start: 12-19-2022 Transvaginal obstetr ic ultrasonography Start: 12-03-2022 Us preg uterus real time w/image dcmtn transvag oYvani Mora MD Work Phone: Start: 11-17-2022 Transvaginal obstetr ic ultrasonography Start: 11-04-2022 Us breast uni real t hans with image limited Kayy Longo INDUSTRIAL WELDER.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 Work Phone: Start: 11-02-2022 Radiologic exam ches t 2 views Keith Arriaga INDUSTRIAL WELDER.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 Work Phone: Start: 11-02-2022 STREP A MOLECULAR (POC) [facility] Provider Start: 08-28-2022 CT of abdomen and pe lvis with oral contrast Start: 06-02-2022 Radiologic exam ches t 2 views Cristy Platt INDUSTRIAL WELDER.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 Work Phone: Start: 01-12-2020 Radex wrist complete minimum 3 views Marcelle Talavera INDUSTRIAL WELDER.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 Work Phone: Start: 06-22-2018 Adult depression scr eening assessment Kimi Jeffrey INDUSTRIAL WELDER.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 Work Phone: Plan of Treatment Date Care Activity Detail Author Start: 08-14-2034 Urine microalbumin profile DTaP,Tdap,Td Vaccine (12 - Td or Tdap) [facility] Start: 04-28-2033 Urine microalbumin profile DTaP,Tdap,Td Vaccine (11 - Td or Tdap) [facility] Start: 08-14-2029 Urine microalbumin profile [facility] Start: 03-31-2027 Screening for malignant neoplasm of cervix Cervical Cancer Screening [facility] Start: 03-31-2025 Anxiety Screening Anxiety Screening [facility] Start: 03-31-2025 Depression Screening Depression Screening [facility] Start: 11-13-2024 Influenza vaccination [facility] Start: 10-17-2024 End: 10-17-2024 Patient encounter procedure 10/17/2024 8:10 AM EDT Routine Office Visit OB/Gynecology [address] [place], [place] [id number] Génesis Jules MD [address] [address] ob routine OB/Gynecology Comment on above: ob routine Start: 10-12-2024 End: 10-12-2024 Patient encounter procedure OB/Gynecology Comment on above: nst/ob OB Start: 10-05-2024 End: 10-05-2024 Patient encounter procedure Maternal Medicine Comment on above: Growth OB Start: 09-28-2024 End: 09-28-2024 Patient encounter procedure OB/Gynecology Comment on above: nst/ob OB 4 wk f/u GESTATIONAL DIABETES Start: 09-23-2024 Nonstress test [facility] Start: 09-23-2024 Obstetric monitoring [facility] Start: 09-23-2024 Vital signs measurements [facility] Start: 09-23-2024 [facility] Start: 09-23-2024 Patient discharge [facility] Start: 09-21-2024 End: 09-21-2024 Patient encounter procedure OB/Gynecology Comment on above: nst/ob NST / OB Start: 09-07-2024 End: 09-07-2024 Patient encounter procedure Maternal Medicine Comment on above: Growth OB Start: 08-29-2024 End: 08-29-2024 Patient encounter procedure OB/Gynecology Comment on above: OB Return in about 4 we eks Start: 08-22-2024 PAP TESTING PAP TESTING [facility] Start: 08-22-2024 Screening for malignant neoplasm of cervix [facility] Start: 08-14-2024 End: 11-13-2024 ANEMIA REFLEX PANEL ANEMIA REFLEX PANEL Lab Routine Supervision of high risk in second trimester (HCC) 25 weeks gestation of (HCC) Expected: 08/14/2024, Expires: 11/13/2024 [facility] Comment on above: Expected: 08/14/2024, Expires: 5 Start: 08-14-2024 End: 07-24-2025 SYPHILIS TREPONEMAL W/REFLEX SYPHILIS TREPONEMAL W/REFLEX Lab Routine Supervision of high risk in second trimester (HCC) 25 weeks gestation of (HCC) Expected: 08/14/2024, Expires: 07/24/2025 [facility] Work Phone: Comment on above: Expected: 08/14/2024, Expires: 6 Start: 08-14-2024 End: 11-13-2024 TYPE + SCREEN TYPE + SCREEN Blood Bank Routine Supervision of high risk in second trimester (HCC) 25 weeks gestation of (HCC) Expected: 08/14/2024, Expires: 11/13/2024 [facility] Comment on above: Expected: 08/14/2024, Expires: Start: 08-14-2024 End: 08-14-2024 Patient encounter procedure Maternal Medicine Comment on above: US AND PRASAD Start: 07-25-2024 End: 07-25-2024 Patient encounter procedure 07/25/2024 2:00 PM EDT Office Visit Endocrinology [address] [place] [id number] Eddi Sneed MD [address] [place] [id number] Gest diabetes Endocrinology Comment on above: Gest diabetes Start: 07-21-2024 End: 07-21-2024 Patient encounter procedure OB/Gynecology Comment on above: OB Gest diabetes Start: 06-28-2024 End: 06-28-2024 ambulatory 06/28/2024 8:30 AM EDT Infusion Center Hematology/Oncology [address] [place] [address] 2ND Hematology/Oncology Comment on above: 2ND Start: 06-23-2024 End: 06-23-2024 [facility] Start: 06-23-2024 Nonstress test [facility] Start: 06-23-2024 Obstetric monitoring [facility] Start: 06-23-2024 Vital signs measurements [facility] Start: 06-23-2024 Bacteria identified in Urine by Culture Urine Culture [facility] Start: 06-23-2024 End: 06-23-2024 ambulatory 06/23/2024 11:00 AM EDT Infusion Center Hematology/Oncology [address] [place] [address] 2ND Hematology/Oncology Comment on above: 2ND Start: 06-23-2024 End: 06-23-2024 Patient encounter procedure Maternal Medicine Comment on above: Anatomy Anatomy/OB Start: 06-22-2024 End: 06-22-2024 Patient encounter procedure 06/22/2024 3:00 PM EDT Office Visit Endocrinology [address] [place] [address] Eddi Sneed MD [address] [place] [address] Gestational DM-ok per KEYONNA Tejedahyperbaric technologist Comment on above: Gestational DM-ok per KEYONNA Tejeda Start: 06-21-2024 End: 06-21-2024 ambulatory 06/21/2024 9:30 AM EDT Infusion Center Hematology/Oncology [address] [place] [address] 2ND Hematology/Oncology Comment on above: 2ND Start: 05-31-2024 End: 05-31-2024 Patient encounter procedure 05/31/2024 3:50 PM EDT Routine Office Visit OB/Gynecology [address] [place] [address] Yovani Mora MD [address] [place] [address] OB-Review blood sugars OB/Gynecology Comment on above: OB-Review blood sugars Start: 05-26-2024 End: 05-26-2024 Patient encounter procedure 05/26/2024 8:10 AM EDT Routine Office Visit OB/Gynecology [address] [place] [address] Génesis Jules MD [address] [place] [address] OB OB/Gynecology Comment on above: OB Start: 04-26-2024 End: 07-26-2024 CBC panel - Blood by Automated count COMPLETE BLOOD COUNT Lab Routine Anemia complicating , second trimester Expected: 04/26/2024, Expires: 07/26/2024 [facility] Work Phone: Comment on above: Expected: 04/26/2024, Expires: Start: 04-26-2024 End: 04-26-2024 Patient encounter procedure Maternal Medicine Comment on above: Nuchal OB Start: 04-18-2024 End: 07-18-2024 Ferritin [Mass/volume] in Serum or Plasma FERRITIN Lab Routine Anemia affecting in first trimester Expected: 04/18/2024, Expires: 07/18/2024 [facility] Comment on above: Expected: 04/18/2024, Expires: Start: 04-18-2024 End: 07-18-2024 Iron and Iron binding capacity panel - Serum or Plasma IRON AND TIBC Lab Routine Anemia affecting in first trimester Expected: 04/18/2024, Expires: 07/18/2024 [facility] Work Phone: Comment on above: Expected: 04/18/2024, Expires: Start: 03-31-2024 End: 06-30-2024 ANEMIA REFLEX PANEL ANEMIA REFLEX PANEL Lab Routine Encounter for supervision of normal in multigravida Expected: 03/31/2024, Expires: 06/30/2024 [facility] Work Phone: Comment on above: Expected: 03/31/2024, Expires: Start: 03-31-2024 End: 06-30-2024 Chromosome 21 trisomy [Presence] in Blood or Tissue by Cytogenetics [id number] PLUS Lab Routine 8 weeks gestation of Expected: 03/31/2024, Expires: 06/30/2024 [facility] Comment on above: Expected: 03/31/2024, Expires: Start: 03-31-2024 End: 06-30-2024 Hemoglobin A1c in Blood HEMOGLOBIN A1C Lab Routine Encounter for supervision of normal in multigravida Expected: 03/31/2024, Expires: 06/30/2024 [facility] Comment on above: Expected: 03/31/2024, Expires: Start: 03-31-2024 End: 06-30-2024 Hepatitis B virus surface Ag [Presence] in Serum HEPATITIS B SURFACE ANTIGEN Lab Routine Encounter for supervision of normal in multigravida Expected: 03/31/2024, Expires: 06/30/2024 [facility] Comment on above: Expected: 03/31/2024, Expires: Start: 03-31-2024 End: 06-30-2024 Hepatitis C virus Ab [Presence] in Serum HEPATITIS C ANTIBODY IA WITH CONFIRMATION Lab Routine Encounter for supervision of normal in multigravida Expected: 03/31/2024, Expires: 06/30/2024 [facility] Comment on above: Expected: 03/31/2024, Expires: Start: 03-31-2024 End: 06-30-2024 HIV 1+2 Ab [Presence] in Serum or Plasma by Immunoassay HIV 1/2 COMBO WITH REFLEX TO DIFFERENTIATION Lab Routine Encounter for supervision of normal in multigravida Expected: 03/31/2024, Expires: 06/30/2024 [facility] Comment on above: Expected: 03/31/2024, Expires: Start: 03-31-2024 End: 03-31-2025 OBSTETRIC ULTRASOUND [facility] Comment on above: Expected: 03/31/2024, Expires: Start: 03-31-2024 End: 06-30-2024 RUBELLA IGG ANTIBODY RUBELLA IGG ANTIBODY Lab Routine Encounter for supervision of normal in multigravida Expected: 03/31/2024, Expires: 06/30/2024 [facility] Comment on above: Expected: 03/31/2024, Expires: 5 Start: 03-31-2024 End: 06-30-2024 SYPHILIS TREPONEMAL W/REFLEX SYPHILIS TREPONEMAL W/REFLEX Lab Routine Encounter for supervision of normal in multigravida Expected: 03/31/2024, Expires: 06/30/2024 [facility] Comment on above: Expected: 03/31/2024, Expires: Start: 03-31-2024 End: 06-30-2024 TYPE + SCREEN TYPE + SCREEN Blood Bank Routine Encounter for supervision of normal in multigravida Expected: 03/31/2024, Expires: 06/30/2024 [facility] Comment on above: Expected: 03/31/2024, Expires: Start: 03-31-2024 End: 03-31-2024 Patient encounter procedure 03/31/2024 8:15 AM EST Initial Office Visit OB/Gynecology [address] [place] [address] Kayy Longo APRN.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 [address] [place] [address] NOB OB/Gynecology Comment on above: NOB Start: 03-16-2024 End: 03-16-2024 ambulatory 03/16/2024 8:00 AM EST Procedure OB/Gynecology [address] [place] [address] [facility] [address] [place] [address] Ovarian cyst, left [N83.202] OB/Gynecology Comment on above: Ovarian cyst, left [N83.202] Start: 03-16-2024 End: 03-16-2024 Patient encounter procedure 03/16/2024 8:00 AM EST Routine Office Visit OB/Gynecology [address] [place] [address] Remote, [employer] [facility] [address] [place] [address] dating/viability OB/Gynecology Comment on above: dating/viability Start: 03-09-2024 End: 03-09-2024 ambulatory 03/09/2024 8:00 AM EST Procedure OB/Gynecology [address] [place] [address] Remote, [employer] [facility] [address] [place] [address] [address] Ovarian cyst, left [N83.202 OB/Gynecology Comment on above: Ovarian cyst, left [N83.202 Start: 02-24-2024 End: 02-24-2024 Patient encounter procedure 02/24/2024 8:15 AM EST Initial Office Visit OB/Gynecology [address] [place] [address] Kayy Longo APRN.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 [address] [place] [address] New OB OB/Gynecology Comment on above: New OB Start: 02-02-2024 End: 02-02-2024 Patient encounter procedure 02/02/2024 10:20 AM EST Office Visit OB/Gynecology [address] [place] [address] Génesis Jules MD [address] [place] [address] Miscarriage F/U OB/Gynecology Comment on above: Miscarriage F/U Start: 01-24-2024 End: 04-24-2024 Choriogonadotropin.beta subunit [Units/volume] in Serum or Plasma [facility] Work Phone: Comment on above: Expected: 01/24/2024, Expires: Start: 01-19-2024 End: 01-19-2024 Patient encounter procedure 01/19/2024 12:30 PM EST Office Visit Neurology [address] [phone] Luisana Quintero MD [address] [place] [address] recurring migraines (last OV 02/14/2021) Neurology Comment on above: recurring migraines (last OV 02/14/2021) Start: 12-17-2023 End: 12-16-2024 US Pelvis PELVIC US [facility] Anc Imaging Routine Ovarian cyst, left Expected: 12/17/2023, Expires: 12/16/2024 [facility] Work Phone: Comment on above: Expected: 12/17/2023, Expires: Start: 12-16-2023 End: 12-16-2023 Manual pelvic examination 12/16/2023 9:00 AM EDT Procedure OB/Gynecology [address] [place], [place] [id number] Pelvic u/s OB/Gynecology Comment on above: Pelvic u/s Start: 11-14-2023 Covid-19 Vaccine ( season) Covid-19 Vaccine ( season) [facility] Start: 11-14-2023 Influenza vaccination [facility] Start: 10-04-2023 End: 10-03-2024 US Pelvis PELVIC US [facility] Anc Imaging Routine Ovarian cyst, left Expected: 10/04/2023, Expires: 10/03/2024 [facility] Work Phone: Comment on above: Expected: 10/04/2023, Expires: Start: 09-14-2023 End: 09-14-2023 Manual pelvic examination 09/14/2023 10:30 AM EDT Procedure OB/Gynecology [address] [place] [id number] Pelvic pain in female [R10.2] OB/Gynecology Comment on above: Pelvic pain in female [R10.2] Start: 09-13-2023 End: 09-12-2024 US Pelvis PELVIC US [facility] Anc Imaging Routine Pelvic pain in female Expected: 09/13/2023, Expires: 09/12/2024 [facility] Work Phone: Comment on above: Expected: 09/13/2023, Expires: 5 Start: 08-17-2023 End: 08-17-2023 Patient encounter procedure 08/17/2023 10:20 AM EDT Office Visit OB/Gynecology [address] [place] [place] [address] Gracie Navarro MD [address] [place] [place] [address] PP OB/Gynecology Comment on above: PP Start: 07-13-2023 End: 10-12-2023 GLUC RYAN, 2-HR NON-GEST, 75 GM, FASTING GLUC RYAN, 2-HR NON-GEST, 75 GM, FASTING Lab Routine Impaired glucose tolerance in , delivered Expected: 07/13/2023, Expires: 10/12/2023 [facility] Work Phone: Comment on above: Expected: 07/13/2023, Expires: 4 Start: 07-06-2023 Patient discharge [facility] Start: 07-04-2023 Administration of blood product [facility] Start: 07-04-2023 Administration of medication [facility] Start: 07-04-2023 Application of ice collar, cap or bag [facility] Start: 07-04-2023 Catheterization of vein [facility] Start: 07-04-2023 Introduction of urinary catheter [facility] Start: 07-04-2023 Measuring intake and output [facility] Start: 07-04-2023 Notification of physician [facility] Start: 07-04-2023 Procedure discontinued [facility] Start: 07-04-2023 Provision of activity privileges [facility] Start: 07-04-2023 Vital signs measurements [facility] Start: 07-04-2023 Documentation procedure [facility] Start: 07-04-2023 End: 07-04-2023 [facility] Start: 07-04-2023 Admission procedure [facility] Start: 06-21-2023 End: 09-20-2023 Protein/Creatinine [Mass Ratio] in Urine PROTEIN CREATININE RATIO Lab Routine 34 weeks gestation of Polyhydramnios in third trimester complication, single or unspecified fetus Insulin controlled gestational diabetes mellitus (GDM) in third trimester History of gastric bypass Supervision of other high risk pregnancies, third trimester Anemia during in third trimester Expected: 06/21/2023, Expires: 09/20/2023 [facility] Work Phone: Comment on above: Expected: 06/21/2023, Expires: Start: 06-12-2023 Patient discharge [facility] Start: 06-11-2023 End: 06-11-2023 [facility] Start: 06-11-2023 Nonstress test [facility] Start: 06-11-2023 Obstetric monitoring [facility] Start: 06-11-2023 Vital signs measurements [facility] Start: 06-10-2023 Patient discharge [facility] Start: 06-09-2023 Notification of physician [facility] Start: 06-09-2023 [facility] Start: 06-09-2023 [facility] Start: 06-09-2023 Admission procedure [facility] Start: 06-09-2023 Nonstress test [facility] Start: 06-09-2023 Vital signs measurements [facility] Start: 06-09-2023 End: 06-09-2023 Notification of physician [facility] Start: 06-09-2023 End: 06-09-2023 Catheterization of vein [facility] Start: 06-09-2023 End: 06-09-2023 [facility] Start: 06-09-2023 Patient referral to dietitian [facility] Start: 06-07-2023 End: 09-06-2023 CBC panel - Blood by Automated count CBC Lab Routine Anemia during in third trimester Expected: 06/07/2023, Expires: 09/06/2023 [facility] Work Phone: Comment on above: Expected: 06/07/2023, Expires: Start: 06-01-2023 End: 08-31-2023 TYPE + SCREEN [facility] Work Phone: Comment on above: Expected: 06/01/2023, Expires: Start: 05-17-2023 End: 05-17-2023 Nonstress test [facility] Start: 05-17-2023 End: 05-17-2023 Obstetric monitoring [facility] Start: 05-17-2023 Vital signs measurements [facility] Start: 05-17-2023 End: 05-17-2023 [facility] Start: 05-17-2023 Patient discharge [facility] Start: 04-12-2023 [facility] Start: 03-15-2023 Behavioral Health Screening Behavioral Health Screening [facility] Start: 03-15-2023 Depression Assessment Depression Assessment [facility] Start: 02-19-2023 [facility] Start: 02-18-2023 Administration of blood product [facility] Start: 02-18-2023 [facility] Start: 02-18-2023 [facility] Start: 01-29-2023 End: 01-30-2024 OBSTETRIC ULTRASOUND WHI OBSTETRIC ULTRASOUND WHI Anc Imaging Routine History of gastric bypass 14 weeks gestation of Supervision of high risk in second trimester Expected: 01/29/2023, Expires: 01/30/2024 [facility] Work Phone: Comment on above: Expected: 01/29/2023, Expires: 4 Start: 01-01-2023 End: 04-02-2023 CBC panel - Blood by Automated count CBC Lab Routine 10 weeks gestation of Expected: 01/01/2023, Expires: 04/02/2023 [facility] Work Phone: Comment on above: Expected: 01/01/2023, Expires: 4 Start: 01-01-2023 End: 04-02-2023 Hemoglobin A1c in Blood HGB A1C Lab Routine 10 weeks gestation of Expected: 01/01/2023, Expires: 04/02/2023 [facility] Work Phone: Comment on above: Expected: 01/01/2023, Expires: 4 Start: 01-01-2023 End: 04-02-2023 Hepatitis B virus surface Ag [Presence] in Serum HEP B SURF AG SCRN Lab Routine 10 weeks gestation of Expected: 01/01/2023, Expires: 04/02/2023 [facility] Work Phone: Comment on above: Expected: 01/01/2023, Expires: 4 Start: 01-01-2023 End: 04-02-2023 Hepatitis C virus Ab [Presence] in Serum HEPATITIS C ANTIBODY IA WITH CONFIRMATION Lab Routine 10 weeks gestation of Expected: 01/01/2023, Expires: 04/02/2023 [facility] Work Phone: Comment on above: Expected: 01/01/2023, Expires: 4 Start: 01-01-2023 End: 04-02-2023 HIV 1+2 Ab [Presence] in Serum or Plasma by Immunoassay HIV 1 2 COMBO(AG/AB),WITH REFLEX TO DIFFERENTIATION Lab Routine 10 weeks gestation of Expected: 01/01/2023, Expires: 04/02/2023 [facility] Work Phone: Comment on above: Expected: 01/01/2023, Expires: 4 Start: 01-01-2023 End: 04-02-2023 RUBELLA IGG AB RUBELLA IGG AB Lab Routine 10 weeks gestation of Expected: 01/01/2023, Expires: 04/02/2023 [facility] Work Phone: Comment on above: Expected: 01/01/2023, Expires: 4 Start: 01-01-2023 End: 04-02-2023 SYPHILIS TOTAL W/REFLEX SYPHILIS TOTAL W/REFLEX Lab Routine 10 weeks gestation of Expected: 01/01/2023, Expires: 04/02/2023 [facility] Work Phone: Comment on above: Expected: 01/01/2023, Expires: 4 Start: 01-01-2023 End: 04-02-2023 TYPE + SCREEN TYPE + SCREEN Blood Bank Routine 10 weeks gestation of Expected: 01/01/2023, Expires: 04/02/2023 [facility] Work Phone: Comment on above: Expected: 01/01/2023, Expires: 4 Start: 12-20-2022 [facility] Start: 12-17-2022 [facility] Start: 11-13-2022 Covid-19 Vaccine () Covid-19 Vaccine () [facility] Start: 11-13-2022 Influenza vaccination [facility] Start: 10-16-2022 End: 10-17-2023 PELVIC US WHI PELVIC US WHI Anc Imaging Routine Pelvic pain in female Expected: 10/16/2022, Expires: 10/17/2023 [facility] Work Phone: Comment on above: Expected: 10/16/2022, Expires: 4 Start: 09-18-2022 End: 11-18-2022 CBC panel - Blood by Automated count CBC Lab Routine Food intolerance Expected: 09/18/2022, Expires: 11/18/2022 [facility] Work Phone: Comment on above: Expected: 09/18/2022, Expires: 3 Start: 09-18-2022 End: 11-18-2022 Comprehensive metabolic 2000 panel - Serum or Plasma COMP METABOLIC PANEL Lab Routine Food intolerance Expected: 09/18/2022, Expires: 11/18/2022 [facility] Work Phone: Comment on above: Expected: 09/18/2022, Expires: 3 Start: 08-28-2022 End: 10-28-2022 CBC W Auto Differential panel - Blood CBC + DIFF Lab Routine Transaminitis Expected: 08/28/2022, Expires: 10/28/2022 [facility] Work Phone: Comment on above: Expected: 08/28/2022, Expires: 3 Start: 08-28-2022 End: 10-28-2022 Comprehensive metabolic 2000 panel - Serum or Plasma COMP METABOLIC PANEL Lab Routine Transaminitis Expected: 08/28/2022, Expires: 10/28/2022 [facility] Work Phone: Comment on above: Expected: 08/28/2022, Expires: Start: 08-26-2022 End: 10-26-2022 Comprehensive metabolic 2000 panel - Serum or Plasma [facility] Work Phone: Comment on above: Expected: 08/26/2022, Expires: 3 Start: 08-26-2022 End: 10-26-2022 Magnesium [Mass/volume] in Serum or Plasma [facility] Work Phone: Comment on above: Expected: 08/26/2022, Expires: Start: 05-28-2022 End: 07-28-2022 25-hydroxyvitamin D3 [Mass/volume] in Serum or Plasma VITAMIN D 25 HYDROXY Lab Routine Body mass index 40.0-44.9, adult (HCC) Expected: 05/28/2022, Expires: 07/28/2022 [facility] Work Phone: Comment on above: Expected: 05/28/2022, Expires: 3 Start: 05-28-2022 End: 07-28-2022 CBC W Auto Differential panel - Blood CBC + DIFF Lab Routine Body mass index 40.0-44.9, adult (HCC) Expected: 05/28/2022, Expires: 07/28/2022 [facility] Work Phone: Comment on above: Expected: 05/28/2022, Expires: 3 Start: 05-28-2022 End: 07-28-2022 Cobalamin (Vitamin B12) [Mass/volume] in Serum or Plasma VITAMIN B12 BLOOD Lab Routine Body mass index 40.0-44.9, adult (HCC) Expected: 05/28/2022, Expires: 07/28/2022 [facility] Work Phone: Comment on above: Expected: 05/28/2022, Expires: Start: 05-28-2022 End: 07-28-2022 Comprehensive metabolic 2000 panel - Serum or Plasma COMP METABOLIC PANEL Lab Routine Body mass index 40.0-44.9, adult (HCC) Expected: 05/28/2022, Expires: 07/28/2022 [facility] Work Phone: Comment on above: Expected: 05/28/2022, Expires: 3 Start: 05-28-2022 End: 07-28-2022 Ferritin [Mass/volume] in Serum or Plasma FERRITIN BLD Lab Routine Body mass index 40.0-44.9, adult (HCC) Expected: 05/28/2022, Expires: 07/28/2022 [facility] Work Phone: Comment on above: Expected: 05/28/2022, Expires: Start: 05-28-2022 End: 07-28-2022 Folate [Mass/volume] in Serum or Plasma FOLATE SERUM Lab Routine Body mass index 40.0-44.9, adult (HCC) Expected: 05/28/2022, Expires: 07/28/2022 [facility] Work Phone: Comment on above: Expected: 05/28/2022, Expires: Start: 05-28-2022 End: 07-28-2022 Hemoglobin A1c in Blood HGB A1C Lab Routine Body mass index 40.0-44.9, adult (HCC) Expected: 05/28/2022, Expires: 07/28/2022 [facility] Work Phone: Comment on above: Expected: 05/28/2022, Expires: Start: 05-28-2022 End: 07-28-2022 Iron and Iron binding capacity panel - Serum or Plasma IRON + TIBC Lab Routine Body mass index 40.0-44.9, adult (HCC) Expected: 05/28/2022, Expires: 07/28/2022 [facility] Work Phone: Comment on above: Expected: 05/28/2022, Expires: Start: 05-28-2022 End: 07-28-2022 Lipid 1996 panel - Serum or Plasma LIPID PANEL BASIC Lab Routine Body mass index 40.0-44.9, adult (HCC) Expected: 05/28/2022, Expires: 07/28/2022 [facility] Work Phone: Comment on above: Expected: 05/28/2022, Expires: Start: 05-28-2022 End: 07-28-2022 Natriuretic peptide.B prohormone N-Terminal [Mass/volume] in Serum or Plasma NT PRO BNP Lab Routine Body mass index 40.0-44.9, adult (HCC) Expected: 05/28/2022, Expires: 07/28/2022 [facility] Work Phone: Comment on above: Expected: 05/28/2022, Expires: Start: 05-28-2022 End: 07-28-2022 Thyrotropin [Units/volume] in Serum or Plasma TSH BLD Lab Routine Body mass index 40.0-44.9, adult (HCC) Expected: 05/28/2022, Expires: 07/28/2022 [facility] Work Phone: Comment on above: Expected: 05/28/2022, Expires: Start: 05-28-2022 End: 07-28-2022 VITAMIN B1 (THIAMINE), WHOLE BLOOD VITAMIN B1 (THIAMINE), WHOLE BLOOD Lab Routine Body mass index 40.0-44.9, adult (HCC) Expected: 05/28/2022, Expires: 07/28/2022 [facility] Work Phone: Comment on above: Expected: 05/28/2022, Expires: 3 Start: 03-15-2022 DEPRESSION ASSESSMENT DEPRESSION ASSESSMENT [facility] Start: 11-13-2021 Influenza vaccination [facility] Start: 08-18-2021 End: 10-18-2021 Comprehensive metabolic 2000 panel - Serum or Plasma COMP METABOLIC PANEL Lab Routine Obesity, Class III, BMI 40-49.9 (morbid obesity) (HCC) Expected: 08/18/2021, Expires: 10/18/2021 [facility] Work Phone: Comment on above: Expected: 08/18/2021, Expires: 2 Start: 07-22-2021 End: 08-05-2021 Influenza virus A and B RNA and SARS-CoV-2 (COVID-19) N gene panel - Respiratory specimen by BEN with probe detection [facility] Work Phone: Comment on above: Expected: 07/22/2021, Expires: 2 Start: 07-03-2021 COVID-19 VACCINE (4 - Booster for Moderna series) COVID-19 VACCINE (4 - Booster for Moderna series) [facility] Start: 07-03-2021 COVID-19 VACCINE (4 - Moderna series) COVID-19 VACCINE (4 - Moderna series) [facility] Start: 01-03-2021 PAP TESTING PAP TESTING [facility] Start: 06-23-2019 Adult depression screening assessment DEPRESSION SCREENING [facility] Start: 06-27-2015 ONE PNEUMOVAX PRIOR TO AGE 65 ONE PNEUMOVAX PRIOR TO AGE 66 [facility] Start: 2014 Anxiety Screening Anxiety Screening [facility] Start: 2014 Depression Screening Depression Screening [facility] Start: 2010 PEDS TO ADULT TRANSITION ANNUAL ASSESSMENT PEDS TO ADULT TRANSITION ANNUAL ASSESSMENT [facility] Start: 2008 PEDS TO ADULT TRANSITION INITIAL DISCUSSION PEDS TO ADULT TRANSITION INITIAL DISCUSSION [facility] Bacteria identified in Urine by Culture URINE CULTURE Microbiology Routine 10 weeks gestation of 01/01/2023 12:[address] [facility] Work Phone: Bacteria identified in Urine by Culture BACTERIAL CULTURE, URINE Microbiology Routine Encounter for supervision of normal in multigravida 03/31/2024 9:48 AM EST [facility] End: 11-22-2023 BIOPHYSICAL PROFILE US WHI BIOPHYSICAL PROFILE US I Anc Imaging Routine Insulin controlled gestational diabetes mellitus (GDM) in third trimester Polyhydramnios in third trimester complication, single or unspecified fetus History of gastric bypass 31 weeks gestation of Once per week for 10 Occurrences starting 05/26/2023 until 11/22/2023 [facility] Work Phone: Comment on above: Once per week for 10 Occurrences startin g 05/26/2023 until 11/22/2023 Chlamydia trachomatis+Neisseria gonorrhoeae DNA [Presence] in Unspecified specimen by BEN with probe detection GONORRHEA/CHLAMYDIA NAAT Lab Routine 10 weeks gestation of 01/01/2023 12:[address] [facility] Work Phone: Chlamydia trachomatis+Neisseria gonorrhoeae DNA [Presence] in Unspecified specimen by BEN with probe detection GONORRHEA/CHLAMYDIA NAAT Lab Routine Encounter for supervision of normal in multigravida 03/31/2024 9:48 AM EST [facility] End: 01-24-2025 Choriogonadotropin.beta subunit [Units/volume] in Serum or Plasma HCG QUANTITATIVE Lab Routine Encounter for test, result positive 2x per week for 2 Occurrences starting 01/25/2024 until 01/24/2025 [facility] Work Phone: Comment on above: 2x per week for 2 Occurrences starting 1 03/26/2023 until 01/24/2025 End: 03-01-2025 Choriogonadotropin.beta subunit [Units/volume] in Serum or Plasma HCG QUANTITATIVE Lab Routine Missed menses 3x per week for 10 Occurrences starting 03/01/2024 until 03/01/2025 [facility] Work Phone: Comment on above: 3x per week for 10 Occurrences starting 03/01/2024 until 03/01/2025 End: 05-29-2023 ECG COMPLETE ECG COMPLETE ECG Routine Body mass index 40.0-44.9, adult (HCC) 1 Occurrences starting 05/28/2022 until 05/29/2023 [facility] Work Phone: Comment on above: 1 Occurrences starting 05/28/2022 until 05/29/2023 End: 07-28-2023 nonstress test NON-STRESS TEST Procedures Routine 31 weeks gestation of Polyhydramnios in third trimester complication, single or unspecified fetus Insulin controlled gestational diabetes mellitus (GDM) in third trimester Once per week for 10 Occurrences starting 05/26/2023 until 07/28/2023 [facility] Work Phone: Comment on above: Once per week for 10 Occurrences startin g 05/26/2023 until 07/28/2023 End: 11-05-2024 nonstress test NON-STRESS TEST Procedures Routine 28 weeks gestation of ([facility]) Supervision of high risk in second trimester ([facility]) Insulin controlled gestational diabetes mellitus (GDM) in second trimester ([facility]) Once per week for 7 Occurrences starting 08/14/2024 until 11/05/2024 [facility] Work Phone: Comment on above: Once per week for 7 Occurrences starting 08/14/2024 until 11/05/2024 End: 08-11-2023 OBSTETRIC ULTRASOUND WHI OBSTETRIC ULTRASOUND WHI Anc Imaging Routine Insulin controlled gestational diabetes mellitus (GDM) in third trimester Polyhydramnios in third trimester complication, single or unspecified fetus Once per month for 2 Occurrences starting 05/26/2023 until 08/11/2023 [facility] Work Phone: Comment on above: Once per month for 2 Occurrences startin g 05/26/2023 until 08/11/2023 End: 11-06-2024 OBSTETRIC ULTRASOUND WHI OBSTETRIC ULTRASOUND WHI Anc Imaging Routine Insulin controlled gestational diabetes mellitus (GDM) in second trimester ([facility]) 25 weeks gestation of ([facility]) Supervision of high risk in second trimester ([facility]) Once per month for 8 Occurrences starting 07/24/2024 until 11/06/2024 [facility] Comment on above: Once per month for 8 Occurrences startin g 07/24/2024 until 11/06/2024 PAP FLUID CERVICAL SCREENING PAP FLUID CERVICAL SCREENING Lab Routine Screening for cervical cancer Encounter for screening for human papillomavirus (HPV) 08/22/2021 3:[address] [facility] Work Phone: PAP TEST PAP TEST Lab Rou johnny Screening for cervical cancer 03/31/2024 9:48 AM EST [facility] Patient Education [facility] Work Phone: Patient referral [facility] Work Phone: POC COREMAKER ULTRASOUND POC COREMAKER ULTRASO UND Anc Imaging Routine with uncertain dates in first trimester Ordered: 01/01/2023 [facility] Work Phone: Comment on above: Ordered: 01/01/2023 End: 06-27-2023 Radiologic exam chest 2 views XR CHEST 2V FRONTAL/LAT Radiology Routine Body mass index 40.0-44.9, adult (HCC) 1 Occurrences starting 05/28/2022 until 06/27/2023 [facility] Work Phone: Comment on above: 1 Occurrences starting 05/28/2022 until 06/27/2023 ROUTINE, GR OUP B STREP PCR ROUTINE, GROUP B STREP PCR Microbiology Routine 34 weeks gestation of 06/21/2023 3:[address] [facility] Work Phone: Urine culture [facility] URINE OB DIP B/O URINE OB DIP B/ O Lab Routine History of gastric bypass 14 weeks gestation of Supervision of high risk in second trimester Ordered: 01/29/2023 [facility] Work Phone: Comment on above: Ordered: 01/29/2023 URINE OB DIP B/O URINE OB DIP B/ O Lab Routine 35 weeks gestation of Ordered: 06/25/2023 [facility] Work Phone: Comment on above: Ordered: 06/25/2023 End: 11-15-2023 US BREAST LTD LEFT US BREAST LTD LEFT Radiology Routine Breast cyst, left 1 Occurrences starting 10/16/2022 until 11/15/2023 [facility] Work Phone: Comment on above: 1 Occurrences starting 10/16/2022 until 11/15/2023 End: 12-31-2023 US PREG TRANSABD <14 WEEKS LTD US PREG TRANSABD <14 WEEKS LTD Radiology Routine , location unknown 1 Occurrences starting 12/01/2022 until 12/31/2023 [facility] Work Phone: Comment on above: 1 Occurrences starting 12/01/2022 until 12/31/2023 End: 12-31-2023 US PREG TRANSVAG <14 WEEKS US PREG TRANSVAG <14 WEEKS Radiology Routine , location unknown 1 Occurrences starting 12/01/2022 until 12/31/2023 [facility] Work Phone: Comment on above: 1 Occurrences starting 12/01/2022 until 12/31/2023 End: 12-05-2023 Us transvaginal US FEMALE PELVIS TRANSVAG Radiology Routine Left ovarian cyst 1 Occurrences starting 11/05/2022 until 12/05/2023 [facility] Work Phone: Comment on above: 1 Occurrences starting 11/05/2022 until 12/05/2023 End: 10-18-2023 XR UPPER GI SINGLE CONTRAST XR UPPER GI SINGLE CONTRAST Radiology Routine Food intolerance 1 Occurrences starting 09/18/2022 until 10/18/2023 [facility] Work Phone: Comment on above: 1 Occurrences starting 09/18/2022 until 10/18/2023 [facility] Immunizations Immunization Date Immunization Notes Care Provider [facility] 08-14-2024 RHO(D) immune globulin- IV or IM Sandra Edwards MD Work Phone: [facility] 08-14-2024 tetanus toxoid, reduced diphtheria toxoid, and acellular pertussis vaccine, adsorbed Sandra Edwards MD Work Phone: [facility] 06-01-2023 RHO(D) immune globulin- IV or IM Treatment Wstr Work Phone: [facility] 04-28-2023 tetanus toxoid, reduced diphtheria toxoid, and acellular pertussis vaccine, adsorbed Génesis Wang MD Work Phone: [facility] 08-15-2019 RHO(D) immune globulin- IV or IM Kimi Jeffrey 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 Work Phone: [facility] 08-15-2019 tetanus toxoid, reduced diphtheria toxoid, and acellular pertussis vaccine, adsorbed Kimi Jeffrey INDUSTRIAL WEL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 Work Phone: [facility] 05-22-2019 RHO(D) immune globulin- IV or IM Kimi Jeffrey [employer]RIAL W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 Work Phone: [facility] Work Phone: 06-29-2018 tetanus toxoid, reduced diphtheria toxoid, and acellular pertussis vaccine, adsorbed Kimi Jeffrey INDUSTRIAL WEL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 Work Phone: [facility] 05-23-2018 RHO(D) immune globulin- IV or IM Kimi Jeffrey INDUSTRIAL WELDER.[facility] Work Phone: [facility] Work Phone: 03-25-2018 influenza, injectable, quadrivalent, contains preservative Kimi Jeffrey INDUSTRIAL WEL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 Work Phone: [facility] 03-25-2018 influenza virus vaccine, unspecified formulation Yovani Mora MD Work Phone: [facility] 09-05-2012 human papilloma viru s vaccine, quadrivalent Kimi Jeffrey [employer] W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 Work Phone: [facility] 03-30-2012 human papilloma viru s vaccine, quadrivalent Kimi Jeffrey [employer]RIAL W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 Work Phone: [facility] 12-01-2011 human papilloma viru s vaccine, quadrivalent Kimi Jeffrey IND[employer]RIAL WELDER.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 Work Phone: [facility] 12-01-2011 tetanus toxoid, reduced diphtheria toxoid, and acellular pertussis vaccine, adsorbed Kimi Jeffrey INDUSTRIAL WELDER.[facility] Work Phone: [facility] 03-28-2010 Meningococcal, MCV4, unspecified conjugate formulation(groups A, C, Y and W-135) Kimi Jeffrey [employer]RI[employer] W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 Work Phone: [facility] Work Phone: 12-13-2008 diphtheria and tetanus toxoids, adsorbed for pediatric use Kimi Jeffrey INDUSTRIAL WELDER.[facility] Work Phone: [facility] Work Phone: 10-08-2000 diphtheria, tetanus toxoids and acellular pertussis vaccine Kimi Rachele INDUSTRIAL WELDER.[facility] Work Phone: [facility] Work Phone: 10-08-2000 measles, mumps and rubella virus vaccine Kimi Jeffrey INDUSTRIAL WELDER.[facility] Work Phone: [facility] Work Phone: 10-08-2000 poliovirus vaccine, inactivated Kimi Jeffrey INDUSTRIAL WELDER.[facility] Work Phone: [facility] Work Phone: 10-08-2000 varicella virus vaccine Kimifloyd Jeffrey [employer]USTRIAL [employer]DER.[facility] Work Phone: [facility] Work Phone: 01-13-2000 diphtheria, tetanus toxoids and acellular pertussis vaccine Kimifloyd Jeffrey INDUSTRIAL WELDER.[facility] Work Phone: [facility] Work Phone: 09-26-1997 diphtheria, tetanus toxoids and acellular pertussis vaccine Kimifloyd Jeffrey INDUSTRIAL WELDER.[facility] Work Phone: [facility] Work Phone: 09-26-1997 haemophilus influenzae type b vaccine, HbOC conjugate Kimi Jeffrey INDUSTRIAL WELDER.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 Work Phone: [facility] Work Phone: 09-26-1997 measles, mumps and rubella virus vaccine Kimifloyd Jeffrey INDUSTRIAL WELDER.[facility] Work Phone: [facility] Work Phone: 1997 Chicken Pox (disease) Nasrin Jeffrey INDUSTRIAL WELDER.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 Work Phone: [facility] Work Phone: 01-03-1997 trivalent poliovirus vaccine, live, oral Kimi Jeffrey INDUSTRIAL WELDER.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 Work Phone: [facility] Work Phone: 01-01-1997 hepatitis B vaccine, pediatric or pediatric/adolescent dosage Kimi Jeffrey INDUSTRIAL WELDER.[facility] Work Phone: [facility] Work Phone: 1996 DTaP-Haemophilus influenzae type b conjugate vaccine Kimi Jeffrey INDUSTRIAL WELDER.[facility] Work Phone: [facility] Work Phone: 1996 trivalent poliovirus vaccine, live, oral Kimi Jeffrey INDUSTRIAL WELDER.[facility] Work Phone: [facility] Work Phone: 1996 DTaP-Haemophilus influenzae type b conjugate vaccine Kimi Jeffrey INDUSTRIAL WELDER.[facility] Work Phone: [facility] Work Phone: 1996 trivalent poliovirus vaccine, live, oral Kimi Jeffrey INDUSTRIAL WELDER.[facility] Work Phone: [facility] Work Phone: 1996 hepatitis B vaccine, pediatric or pediatric/adolescent dosage Kimi Jeffrey INDUSTRIAL WELDER.[facility] Work Phone: [facility] Work Phone: 1996 hepatitis B vaccine, pediatric or pediatric/adolescent dosage Kimi Jeffrey INDUSTRIAL WELDER.[facility] Work Phone: [facility] Work Phone: NEGATED: Highlighted row has not occurred!04-28-2023 RHO(D) immune globulin- IV or IM Génesis Wang MD Work Phone: [facility] Payers Date Payer Category Payer Self-pay [id number] 2022 Medicaid [id number] 2020 Medicaid [place] [employer] [place] [employer] MEDICA[employer] [id number] 2020-Present [phone] [address] [place] [address] Medicaid [id number] 2020 Government (not [facility] or Medicaid) [employer] MGMT [id number] 2020 Unknown [facility] B[employer]NIE CLA IMS [facility] [id number] 2020-Present [phone] [id number] [place] [address] [id number] 2019 Medicaid [id number] Unknown [id number] Unknown [id number] Unknown [id number] Unknown [id number] Unknown [id number] Unknown [id number] Unknown [id number] Social History Date Type Detail Facility Start: 05-15-2013 End: 05-11-2022 Tobacco smoking status NHIS Never smoked tobacco [facility] Work Phone: Start: 05-15-2013 End: 05-11-2022 Tobacco use and exposure Smokeless tobacco non-user [facility] Work Phone: Start: 07-22-2021 End: 09-25-2024 Alcohol intake Current non-drinker of alcohol (finding) [facility] Start: 11-28-2019 History SDOH Financial 5 [facility] Start: 11-28-2019 History SDOH Food Worry 1 [facility] Start: 11-28-2019 History SDOH Transport Med 2 [facility] Start: 03-16-2019 Education 15 [facility] Start: 1995 Sex Assigned At Not on file [facility] Start: 07-12-2021 End: 07-22-2021 Exposure to SARS-CoV-2 (event) Yes [facility] Work Phone: Start: 12-13-2019 End: 10-03-2021 Exposure to SARS-CoV-2 (event) Not sure [facility] Work Phone: Start: 08-27-2022 End: 04-12-2023 Tobacco smoking status NHIS Unknown if ever smoked [facility] Start: 10-16-2019 None [facility] Start: 05-24-2019 With Family [facility] Start: 05-24-2019 Non-smoker [facility] Start: 1995 Sex Assigned At Female [facility] Start: 08-04-2022 End: 06-21-2024 History of Social function [facility] Start: 08-04-2022 End: 06-21-2024 Tobacco use panel [facility] How hard is it for you to pay for the very basics like food, housing, medical care, and heating Not hard at all [facility] (I/We) worried whether (my/our) food would run out before (I/we) got money to buy more. Never true [facility] Start: 11-03-2022 [facility] Start: 06-24-2024 Sex Female (finding) [facility] NEGATED: Highlighted row [facility] Medical Equipment Procedure Code Equipment Code Equipment Origin al Text Equipment Identifier Dates [id number], [id number], [id number], [id number], [id number], [id number], [id number] Start: 08-16-2019 End: 08-29-2024 Comment on above: 1 Each once daily. Goals Date Patient Goal Desired Activity /State Personal health goal Personal health goal Functional Status Date Assessment Result Facility 06-17-2024 Are you deaf, or do you have serious difficulty hearing No 06/17/2024 4:23 PM Chen Tirado RN No [facility] 06-17-2024 Are you blind, or do you have serious difficulty seeing, even when wearing glasses No 06/17/2024 4:23 PM Chen Tirado RN No [facility] 06-17-2024 Do you have serious difficulty walking or climbing stairs No 06/17/2024 4:23 PM Chen Tirado RN No [facility] 06-17-2024 Do you have difficul ty dressing or bathing No 06/17/2024 4:23 PM Chen Tirado, KEYONNA [facility] 06-17-2024 Because of a physica l, mental, or emotional condition, do you have difficulty doing errands alone such as visiting a physician's office or shopping No 06/17/2024 4:23 PM Chen Tirado RN No [facility] 05-03-2023 Are you deaf, or do you have serious difficulty hearing No 05/03/2023 4:15 PM Hortencia Curtis RN No [facility] 05-03-2023 Are you blind, or do you have serious difficulty seeing, even when wearing glasses No 05/03/2023 4:15 PM Hortencia Curtis RN No [facility] 05-03-2023 Do you have serious difficulty walking or climbing stairs No 05/03/2023 4:15 PM Hortencia Curtis RN No [facility] 05-03-2023 Do you have difficul ty dressing or bathing No 05/03/2023 4:15 PM Hortencia Curtis, KEYONNA No [facility] 05-03-2023 Because of a physica l, mental, or emotional condition, do you have difficulty doing errands alone such as visiting a physician's office or shopping No 05/03/2023 4:15 PM Hortencia Curtis RN No [facility] Mental Status Date Assessment Result Facility 06-17-2024 Because of a physica l, mental, or emotional condition, do you have serious difficulty concentrating, remembering, or making decisions No 06/17/2024 4:23 PM EDT Chen Baker, KEYONNA No [facility] 05-03-2023 Because of a physica l, mental, or emotional condition, do you have serious difficulty concentrating, remembering, or making decisions No 05/03/2023 4:15 PM Hortencia Curtis RN No [facility] 04-12-2023 Cognitive function Level Of Cons ciousness Awake;Alert;Appropriate [facility] Work Phone: Clinical Notes 06-29-2019 to 09-25-2024 Telephone Encounter - Laina Cardoza RN - 09/25/2024 8:47 AM EDTTelephone Encounter - Laina Cardoza RN - 09/25/2024 8:47 AM EDTPrenatal Quick Notes - Sandra Edwards MD - 09/21/2024 11:44 AM EDT Note Date & Type Note Facility 09-25-2024 Telephone encounter Note 34w1d Pt calls to get appointment scheduled today. Was on L&D this weekend and was kept for a few hours on Wednesday. States was having vision changes-Pt states they have not gotten any worse-every once in awhile having floating spots. States had increased protein in urine and increase in BP. Pt not checking BP at home/States not on BP medications at home. Offered AM appt with AT; However, Pt states she is unable to come in this AM as her older child is having tubes placed in ears at [facility] and his father is out of town. Did advise Pt that she should be seen sooner d/t having symptoms; However, pt states sx have not worsened and Appt scheduled today with SW at 2:40pm. Laina Cardoza RN [facility] 09-25-2024 Miscellaneous Notes 34w1d Pt calls to get appointment scheduled today. Was on L&D this weekend and was kept for a few hours on Wednesday. States was having vision changes-Pt states they have not gotten any worse-every once in awhile having floating spots. States had increased protein in urine and increase in BP. Pt not checking BP at home/States not on BP medications at home. Offered AM appt with AT; However, Pt states she is unable to come in this AM as her older child is having tubes placed in ears at [facility] and his father is out of town. Did advise Pt that she should be seen sooner d/t having symptoms; However, pt states sx have not worsened and Appt scheduled today with SW at 2:40pm. Laina Cardoza RN documented in this encounter [facility] 09-21-2024 Progress note Formatting of t his [...] - RTO 1 wk Sandra Edwards DO [facility] 09-21-2024 Miscellaneous Notes SW- Pt doing [...] Sandra Edwards DO documented in this encounter [facility] 09-21-2024 Note HNO ID: [id number] Author: SANDRA EDWARDS MD Service: ? Author Type: Physician Type: Progress Notes Filed: 09/21/2024 11:46 Note Text: NST SUMMARY PROVIDER ASSESSMENT AND INTERPRETATION Laina De León is a 29 year old female, , who is at 33w4d with an BELEM of 11/05/2024, by Last Menstrual Period dating method. Indications for NST: Gestational Diabetes - Insulin Controlled Baseline: 135 Variability: Moderate Accelerations: Present 15 X 15 Decelerations: None Contractions: TOCO: one ctx Interpretation: Reactive SIGNATURE: Sandra Edwards DO [facility] 09-21-2024 History of Presen t illness Narrative NST SUMMARY PROVIDER ASSESSMENT AND INTERPRETATION Laina De León is a 29 year old female, , who is at 33w4d with an BELEM of 11/05/2024, by Last Menstrual Period dating method. Indications for NST: Gestational Diabetes - Insulin Controlled Baseline: 135 Variability: Moderate Accelerations: Present 15 X 15 Decelerations: None Contractions: TOCO: one ctx Interpretation: Reactive SIGNATURE: Sandra Edwards DO documented in this encounter [facility] 09-21-2024 Instructions Donna Miguel MA - 09/21/2024 9:59 AM EDT SEQUENTIAL SCREENINGS The [facility] offers sequential screenings for women who [...] It will require an appointment with our civil laboratory technician. This is not an ultrasound [...] the above symptoms, contact our office at [phone] and ask to speak with a nurse. After hours, you can call doctors registry at [phone] OR call [facility] at [phone] and ask to have the doctor environmental health officer paged. If you consider this an emergency, dial 9-1-6 or go to your nearest emergency department. NEED HELP? Are you dealing with a violent or abusive relationship? Are you a victim of rape or sexual assult? Call [facility] ([place]) 24 hour Crisis Hotline: 725.447.7237 or 202-825-1288. MANUAL Your Guide to a Healthy manual is now on-line. Visit [email or web address] Lora to download your free copy documented in this encounter [facility] 09-07-2024 Progress note Formatting of t his note might be different from the original. KJ - S: Laina denies LOF, contractions or vaginal bleeding. O: 31w4d, see flow sheet SENSITIVE EXAM: Sensitive exam not performed. A/P: Assessment & Plan Polyhydramnios in third trimester complication, single or unspecified fetus (HCC) Growth US today with BPP 10/20 Orders: URINE OB DIP B/O Insulin controlled gestational diabetes mellitus (GDM) in second trimester (HCC) Managed by endocrinology. Patient reports BS are getting better. testing at 32 weeks. Orders: URINE OB DIP B/O Blood-Glucose Sensor (FREESTYLE ELEANOR 3 PLUS SENSOR) ira; Please change every 15 days Anemia affecting , antepartum (HCC) Continue iron PO. S/p IV iron. Orders: URINE OB DIP B/O 31 weeks gestation of (HCC) Orders: URINE OB DIP B/O Reviewed PTL & FM precautions Gracie Navarro MD [facility] 09-07-2024 Miscellaneous Notes KJ - S: Laina denies LOF, contractions or vaginal bleeding. O: 31w4d, see flow sheet SENSITIVE EXAM: Sensitive exam not performed. A/P: Assessment & Plan Polyhydramnios in third trimester complication, single or unspecified fetus (HCC) Growth US today with BPP 10/20 Orders: URINE OB DIP B/O Insulin controlled gestational diabetes mellitus (GDM) in second trimester ([facility]) Managed by endocrinology. Patient reports BS are getting better. testing at 32 weeks. Orders: URINE OB DIP B/O Blood-Glucose Sensor (FREESTYLE ELEANOR 3 PLUS SENSOR) ira; Please change every 15 days Anemia affecting , antepartum ([facility]) Continue iron PO. S/p IV iron. Orders: URINE OB DIP B/O 31 weeks gestation of ([facility]) Orders: URINE OB DIP B/O Reviewed PTL & FM precautions Gracie Navarro MD documented in this encounter [facility] 09-07-2024 Note Indication Evaluation of well-being. [...] The placenta is posterior, fundal. - BPP 8/8. - No malformations visualized on a limited [...] 4 oz EFW by: Hadlock (HC-AC-FL) Extended Case Loader Operator 5.1 mm Extremities / Bony Struc FL [...] 09/07/2024 9:52 AM EDT SEQUENTIAL SCREENINGS The [facility] offers sequential screenings for women who [...] It will require an appointment with our civil laboratory technician. This is not an ultrasound [...] the above symptoms, contact our office at [phone] and ask to speak with a nurse. After hours, you can call doctors registry at [phone] OR call [facility] at [phone] and ask to have the doctor environmental health officer paged. If you consider this an emergency, dial or go to your nearest emergency department. NEED HELP? Are you dealing with a violent or abusive relationship? Are you a victim of rape or sexual assult? Call [facility] ([place]) 24 hour Crisis Hotline: 908.660.3087 or 851-167-6537. MANUAL Your Guide to a Healthy manual is now on-line. Visit [email or web address] nancyGuide to download your free copy documented in this encounter [facility] 08-29-2024 Instructions Eddi nSeed MD - 08/29/2024 8:49 AM EDT Continue 32 unuts with breakfast and reduce evening dose to 9 units daily Continue CGM documented in this encounter [facility] 08-29-2024 Note HNO ID: [id number] Author: EDDI SNEED MD Service: ? Author Type: Physician Type: Progress Notes Filed: 08/30/2024 22:25 Note Text: [facility] Follow up visit note Referred by: Inna Garcia MD (OBGYN) Chief complaint: Gestational Diabetes Mellitus My final recommendations will be communicated back to the requesting physician by way of shared medical record or letter via [place] mail. History of Present Illness: Laina De León is a 29 year old female patient presenting for follow up evaluation of Gestational diabetes mellitus She is A1, currently 30+ weeks of gestation. Last delivery was in 06/2023. Initial visit with id on 06/22/24. EUGENE 07/25/24 PMH: significant for [...] of Personal CGM Findings: Type of CGM: Veeker eleanor 3+ August 02, 2024 to August 29, [...] Diagnosis Date Anemia complicating , first trimester ([facility]) 03/24/2019 Anemia during in second trimester ([facility]) 05/19/2023 Asthma as a child Childhood asthma without complication ([facility]) 01/03/2018 01/03/2018 Not currently using Albuterol inhaler. Continue to monitor. No Hemabate. SW Concussion 2009 COVID-19 virus infection 03/26/202103/2021 Diet controlled gestational diabetes mellitus (GDM) in third trimester ([facility]) 08/16/2019 Gestational hypertension ([facility]) History of (more content not included)... [facility] 08-29-2024 History of Presen t illness Narrative [facility] Follow up visit note Referred by: Inna Garcia MD (OBGYN) Chief complaint: Gestational Diabetes Mellitus My final recommendations will be communicated back to the requesting physician by way of shared medical record or letter via [place] mail. History of Present Illness: Laina De León is a 29 year old [...] of Personal CGM Findings: Type of CGM: Veeker eleanor 3+ August 02, 2024 to August 29, [...] Diagnosis Date Anemia complicating , first trimester ([facility]) 03/24/2019 Anemia during in second trimester ([facility]) 05/19/2023 Asthma as a child Childhood asthma without complication ([facility]) 01/03/2018 01/03/2018 Not currently using Albuterol inhaler. Continue to monitor. No Hemabate. SW Concussion 2009 COVID-19 virus infection 03/26/202103/2021 Diet controlled gestational diabetes mellitus (GDM) in third trimester ([facility]) 08/16/2019 Gestational hypertension ([facility]) History of gestational hypertension 03/16/2019 Hx of gestational diabetes mellitus, not currently 05/16/2020 Insulin controlled gestational diabetes mellitus (GDM) in third trimester ([facility]) 05/19/2023 Maternal iron deficiency anemia complicating , third trimester ([facility]) 05/04/2023 Mononucleosis NEGATIVE MEDICAL HISTORY normal color vision PMH - PAST MEDICAL HISTORY OF slip disc Polyhydramnios in third trimester ([facility]) 07/05/2018 06/03/23 Mild noted on 32 week growth. Continue to plan for testing. Cristy Matthew APRN.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 July 05, 2018 D/w her risks. NSTs weekly. Kick counts. PTL precuations. F/u weekly. Yovani Mora MD Spondylolysis of lumbar region 06/25/2011 [...] 3/16 1 each as needed. Blood-Glucose Sensor (FREESTYLE ELEANOR 3 PLUS SENSOR) ira Please change every [...] mouth once daily. flash glucose sensor (FREESTYLE ELEANOR 14 DAY SENSOR) kit Apply new sensor [...] Ellington et al. 2017 Guidelines of the [place] [employer] for the Diagnosis and Management [...] Ellington et al. 2017 Guidelines of the [place] [employer] for the Diagnosis and Management [...] Ellington, et al. 2017 Guidelines of the [place] [employer] for the Diagnosis and Management of Thyroid Disease during and the . Thyroid, 2017:27:3:315-389. Free T4 Date Value Ref Range Status 05/16/2020 1.3 0.9 - 1.7 ng/dL Final Hemoglobin A1C Date Value Ref Range Status 06/16/2024 5.3 4.3 - 5.6 % Final Comment: [place] [employer] guidelines indicate that patients with [...] carb high protein- will send prescriptions for eleanor 3+ -hypoglycemia treatment reviewed, along with BG [...] dietitian - labs for cholesterol may not cell changer, hence will defer, reviewed diet and [...] Moderate Eddi Sneed MD Endocrinology Associate Staff [facility] Endocrinology and Metabolism [place] [phone] Images from the original note were not included. documented in this encounter [facility] 08-29-2024 Note HNO ID: [id number] Author: DIANA MUNOZ RN Service: ? Author Type: Registered Nurse Type: Progress Notes Filed: 08/30/2024 22:25 Note Text: [facility] 08-29-2024 Progress note Formatting of t his note might be different from the original. S: Laina De León is a 29 year old [...] third trimester complication, single or unspecified fetus ([facility]) - ICD9: 657.03, ICD10: O40.3XX0 (primary diagnosis) Repeat US next visit - URINE OB DIP B/O 2. Insulin controlled gestational diabetes mellitus (GDM) in second trimester ([facility]) - ICD9: 648.83, ICD10: O24.414 Managed by endo - URINE OB DIP B/O 3. Rh negative state in antepartum period ([facility]) - ICD9: 646.83, ICD10: O26.899, Z67.91 S/p rhogam - URINE OB DIP B/O 4. Supervision of high risk in second trimester ([facility]) - ICD9: V23.9, ICD10: O09.92 - URINE OB DIP B/O 5. Anemia, unspecified type - ICD9: 285.9, ICD10: D64.9 Rpeat Hgb in 2-4 weeks - URINE OB DIP B/O 6. 30 weeks gestation of ([facility]) - ICD9: V22.2, ICD10: Z3A.30 - URINE OB DIP B/O Inna Garcia MD [facility] 08-29-2024 Miscellaneous Notes S: Laina De León is a 29 year old [...] third trimester complication, single or unspecified fetus ([facility]) - ICD9: 657.03, ICD10: O40.3XX0 (primary diagnosis) Repeat US next visit - URINE OB DIP B/O 2. Insulin controlled gestational diabetes mellitus (GDM) in second trimester ([facility]) - ICD9: 648.83, ICD10: O24.414 Managed by endo - URINE OB DIP B/O 3. Rh negative state in antepartum period ([facility]) - ICD9: 646.83, ICD10: O26.899, Z67.91 S/p rhogam - URINE OB DIP B/O 4. Supervision of high risk in second trimester ([facility]) - ICD9: V23.9, ICD10: O09.92 - URINE OB DIP B/O 5. Anemia, unspecified type - ICD9: 285.9, ICD10: D64.9 Rpeat Hgb in 2-4 weeks - URINE OB DIP B/O 6. 30 weeks gestation of ([facility]) - ICD9: V22.2, ICD10: Z3A.30 - URINE OB DIP B/O Inna Garcia MD documented in this encounter [facility] 08-29-2024 Instructions Maritza Schneider MA - 08/29/2024 8:02 AM EDT SEQUENTIAL SCREENINGS The [facility] offers sequential screenings for women who [...] It will require an appointment with our civil laboratory technician. This is not an ultrasound [...] the above symptoms, contact our office at [phone] and ask to speak with a nurse. After hours, you can call doctors registry at [phone] OR call [facility] at [phone] and ask to have the doctor environmental health officer paged. If you consider this an emergency, dial 0-1 or go to your nearest emergency department. NEED HELP? Are you dealing with a violent or abusive relationship? Are you a victim of rape or sexual assult? Call [facility] ([place]) 24 hour Crisis Hotline: 645.752.3607 or 204-445-3938. MANUAL Your Guide to a Healthy manual is now on-line. Visit [email or web address] to download your free copy documented in this encounter [facility] 08-15-2024 Telephone encounter Note 3rd risk assessment form submitted 08/15/24 Arabella Sanz RN [facility] 08-15-2024 Miscellaneous Notes 3rd risk assessment form submitted 08/15/24 Arabella Sanz RN documented in this encounter [facility] 08-14-2024 Note Indication Evaluation of growth [...] 12 oz EFW by: Hadlock (HC-AC-FL) Extended Case Loader Operator 1.8 mm Extremities / Bony Struc FL [...] Wants to know sex: yes Performed By: Mariah Barraza RDMS, RVT Read By: Kyung Tom M.D. [facility] 08-14-2024 Note HNO ID: [id number] Author: KLARISSA SOTO RN Service: ? Author Type: Registered Nurse Type: Progress Notes Filed: 08/14/2024 14:39 Note Text: Laina De León 29 year old is here for her injection of Rhophylac. Laina De León ABO/RH(D) (no units) Date Value 05/22/2019 A NEGATIVE Antibody Screen (no units) Date Value 06/16/2024 Negative 08/15/2019 POS Antibody Identified (no units) Date Value 04/28/2023 No new Neda Detected 08/15/2019 ANTI-D PRESENT. Laina De León is RH Negative Rhophylac was given without incident. See immunizations for details of immunizations administered today. Provider Dr. Edwards was present in office at time of injection Laina De León was given her Rhophylac pocket card. Klarissa Soto RN [facility] 08-14-2024 History of Presen t illness Narrative Laina De León 29 year old is here for her injection of Rhophylac. Laina De León ABO/RH(D) (no units) Date Value 05/22/2019 A NEGATIVE Antibody Screen (no units) Date Value 06/16/2024 Negative 08/15/2019 POS Antibody Identified (no units) Date Value 04/28/2023 No new Neda Detected 08/15/2019 ANTI-D PRESENT. Laina De León is RH Negative Rhophylac was given without incident. See immunizations for details of immunizations administered today. Provider Dr. Edwards was present in office at time of injection Laina De León was given her Rhophylac pocket card. Klarissa Soto RN Patient identified by name and date of . Laina De León presents today for a vaccination of Tdap. Patient denies an allergy to latex: yes Patient denies a severe (life-threatening) allergy to a previous dose of Tdap, DTP, DTaP, DT or Td vaccine. Yes Patient denies history of epilepsy or neurological problems: Yes Patient is afebrile and denies being moderately or severely ill: Yes Patient denies history of Guillain-Marianna Syndrome (a severe paralytic illness): Yes Tdap Adacel injection was given without incident. See immunizations for details of immunizations administered today. VIS sheet provided: Yes Provider Dr. Edwards was present in office at time of injection. Klarissa Soto RN documented in this encounter [facility] 08-14-2024 Note HNO ID: [id number] Author: KLARISSA SOTO RN Service: ? Author Type: Registered Nurse Type: Progress Notes Filed: 08/14/2024 14:39 Note Text: Patient identified by name and date of . Laina De León presents today for a vaccination of Tdap. Patient denies an allergy to latex: yes Patient denies a severe (life-threatening) allergy to a previous dose of Tdap, DTP, DTaP, DT or Td vaccine. Yes Patient denies history of epilepsy or neurological problems: Yes Patient is afebrile and denies being moderately or severely ill: Yes Patient denies history of Guillain-Marianna Syndrome (a severe paralytic illness): Yes Tdap Adacel injection was given without incident. See immunizations for details of immunizations administered today. VIS sheet provided: Yes Provider Dr. Edwards was present in office at time of injection. Klarissa Soto RN [facility] 08-14-2024 Progress note Formatting of t his [...] - RTO 2 wks Sandra Edwards DO [facility] 08-14-2024 Miscellaneous Notes SW- Pt doing [...] Sandra Edwards DO documented in this encounter [facility] 08-14-2024 Instructions Donna Miguel MA - 08/14/2024 1:27 PM EDT SEQUENTIAL SCREENINGS The [facility] offers sequential screenings for women who [...] It will require an appointment with our civil laboratory technician. This is not an ultrasound [...] the above symptoms, contact our office at [phone] and ask to speak with a nurse. After hours, you can call doctors registry at [phone] OR call [facility] at [phone] and ask to have the doctor environmental health officer paged. If you consider this an emergency, dial 5-5-0 or go to your nearest emergency department. NEED HELP? Are you dealing with a violent or abusive relationship? Are you a victim of rape or sexual assult? Call [facility] ([place]) 24 hour Crisis Hotline: 324.618.1100 or 742-504-1543. MANUAL Your Guide to a Healthy manual is now on-line. Visit [email or web address] Lora to download your free copy documented in this encounter [facility] 07-25-2024 Note HNO ID: [id number] Author: EDDI SNEED MD Service: ? Author Type: Physician Type: Progress Notes Filed: 08/02/2024 13:09 Note Text: [facility] Initial Clinic Visit Note Referred by: Inna Garcia MD (OBGYN) Chief complaint: Gestational Diabetes Mellitus My final recommendations will be communicated back to the requesting physician by way of shared medical record or letter via US mail. History of Present Illness: Laina De León is a 29 year old [...] of Personal CGM Findings: Type of CGM: [employer] G7 1) CGM recording is adequate for [...] Diagnosis Date Anemia complicating , first trimester ([facility]) 03/24/2019 Anemia during in second trimester ([facility]) 05/19/2023 Asthma as a child Childhood asthma without complication ([facility]) 01/03/2018 01/03/2018 Not currently using Albuterol inhaler. Continue to monitor. No Hemabate. SW Concussion 2010 COVID-19 virus infection 03/26/202103/2021 Diet controlled gestational diabetes mellitus (GDM) in third trimester ([facility]) 08/16/2019 Gestational hypertension ([facility]) History of gestational hypertension 03/16/2019 Hx of gestational diabetes mellitus, not currently 05/16/2020 Insulin controlled gestational diabetes mellitus (GDM) in third trimester ([facility]) 05/19/2023 Maternal iron deficiency anemia complicating , third trimester ([facility]) 05/04/2023 Mononucleosis NEGATIVE MEDICAL HISTORY normal color vision PMH - P (more content not included)... [facility] 07-25-2024 Note HNO ID: [id number] Author: DIANA MUNOZ RN Service: ? Author Type: Registered Nurse Type: Progress Notes Filed: 08/02/2024 13:11 Note Text: [facility] 07-24-2024 Progress note Formatting of t his note might be different from the original. DM-Pt doing well. Denies vaginal Bleeding, Leaking fluid, or regular Contractions. Pt reports good movement Physical Exam: Gen: female in no apparent distress Abd: soft, Gravid. Non tender to palpation. See flow sheet @ 08/04 [facility] Assessment & Plan Supervision of high risk in second trimester ([facility]) Orders: URINE OB DIP B/O SYPHILIS TREPONEMAL W/REFLEX; Future ANEMIA REFLEX PANEL; Future TYPE + SCREEN ; Future OBSTETRIC ULTRASOUND WHI; Standing Insulin controlled gestational diabetes mellitus (GDM) in second trimester ([facility]) Sees endocrinology tomorrow- will need insulin adjusted- [...] controlled Orders: URINE OB DIP B/O Insulin Gilbert, Disposable, (PEN NEEDLE) 32 gauge x 5/32; 1 each as needed. OBSTETRIC ULTRASOUND WHI; Standing Anemia, unspecified type Continue IV iron Orders: URINE OB DIP B/O 25 weeks gestation of (HCC) Orders: URINE OB DIP B/O SYPHILIS TREPONEMAL W/REFLEX; Future ANEMIA REFLEX PANEL; Future TYPE + SCREEN ; Future OBSTETRIC ULTRASOUND WHI; Standing Génesis Lopez MD [facility] 07-24-2024 Miscellaneous Notes DM-Pt doing well. Denies vaginal Bleeding, Leaking fluid, or regular Contractions. Pt reports good movement Physical Exam: Gen: female in no apparent distress Abd: soft, Gravid. Non tender to palpation. See flow sheet @ 08/04 [facility] Assessment & Plan Supervision of high risk in second trimester ([facility]) Orders: URINE OB DIP B/O SYPHILIS TREPONEMAL W/REFLEX; Future ANEMIA REFLEX PANEL; Future TYPE + SCREEN ; Future OBSTETRIC ULTRASOUND WHI; Standing Insulin controlled gestational diabetes mellitus (GDM) in second trimester ([facility]) Sees endocrinology tomorrow- will need insulin adjusted- [...] controlled Orders: URINE OB DIP B/O Insulin Gilbert, Disposable, (PEN NEEDLE) 32 gauge x 5/32; 1 each as needed. OBSTETRIC ULTRASOUND WHI; Standing Anemia, unspecified type Continue IV iron Orders: URINE OB DIP B/O 25 weeks gestation of (HCC) Orders: URINE OB DIP B/O SYPHILIS TREPONEMAL W/REFLEX; Future ANEMIA REFLEX PANEL; Future TYPE + SCREEN ; Future OBSTETRIC ULTRASOUND WHI; Standing Génesis Lopez MD documented in this encounter [facility] 07-24-2024 Instructions Erika Calderón MA - 07/24/2024 7:55 AM EDT SEQUENTIAL SCREENINGS The [facility] offers sequential screenings for women who [...] It will require an appointment with our civil laboratory technician. This is not an ultrasound [...] the above symptoms, contact our office at [phone] and ask to speak with a nurse. After hours, you can call doctors registry at [phone] OR call [facility] at [phone] and ask to have the doctor environmental health officer paged. If you consider this an emergency, dial or go to your nearest emergency department. NEED HELP? Are you dealing with a violent or abusive relationship? Are you a victim of rape or sexual assult? Call [facility] ([place]) 24 hour Crisis Hotline: 392.565.9899 or 570-374-6041. MANUAL Your Guide to a Healthy manual is now on-line. Visit [email or web address] [email or web address] to download your free copy documented in this encounter [facility] 06-27-2024 Telephone encounter Note Phoned patient as requested. Patient accepts dosage change. Patient is double checking readings with glucometer. Inna Dowell MA [facility] 06-27-2024 Miscellaneous Notes Phoned patient as [...] Kimi Jason LPN documented in this encounter [facility] 2024 Telephone encounter Note She can lower the dose to 28 units in am and 14 units in pm. But most of her labs are within ranges. Please advise her to quit following what the sensor for a low, and rather let us know of blood sugars less than 60 mg/dl before next visit in 3 weeks [facility] 2024 Telephone encounter Note 2nd risk assessment form submitted 06/26/24 Arabella Sanz RN [facility] 2024 Miscellaneous Notes 2nd risk assessment form submitted 06/26/24 Arabella Sanz RN documented in this encounter [facility] 2024 Telephone encounter Note Images from the original note were not included. [facility] 2024 Telephone encounter Note Patient calling [...] shakiness, lightheadedness and sweating. Kimi Jason LPN [facility] 06-23-2024 Evaluation note Diagnosis Onset Date Resolution 20 weeks gestation of acute June 23, 2024 9:55pm Back pain affecting in second trimester acute June 23, 2024 9:55pm [facility] Work Phone: 1(606) 955-979104-11-2025 Telephone encounter Note* Telephone Encounter - Anali Bustamante - 06/23/2024 3:24 PM EDT Images from the original note were not included. insulin NPH human (HUMULIN N NPH INSULIN KWIKPEN) 100 unit/mL has been approved Notified patient through [employer] [facility] [place] [facility]04-11-2025 Miscellaneous Notes* Telephone Encounter - Anali Bustamante - 06/23/2024 3:24 PM EDT Images from the original note were not included. insulin NPH human (HUMULIN N NPH INSULIN KWIKPEN) 100 unit/mL has been approved Notified patient through [employer] [facility] [place] * Telephone Encounter - Anali Bustamante - 06/23/2024 2:56 PM EDT Images from the original note were not included. Initiated PA for insulin NPH human (HUMULIN N NPH INSULIN KWIKPEN) 100 unit/mL through Covermymeds Questions Completed/attached notes Waiting for determination Anali [employer] [facility] [place] [facility] Telephone encounter Note * Telephone Encounter - Anali Bustamante - 06/23/2024 2:58 PM EDT Images from the original note were not included. Anali Marshall [employer] [facility] [place] [facility]04-11-2025 Miscellaneous Notes* Telephone Encounter - Anali Bustamante - 06/23/2024 2:58 PM EDT Images from the original note were not included. Anali Marshall [employer] [facility] [place] * Telephone Encounter - Inna Dowell MA - 06/22/2024 3:46 PM EDT Prior Auth requested for Humulin kwikpen 100u/ml Mcgowan [id number] Inna Dowell MA [facility] Telephone encounter Note * Telephone Encounter - Anali Bustamante - 06/23/2024 2:56 PM EDT Images from the original note were not included. Initiated PA for insulin NPH human (HUMULIN N NPH INSULIN KWIKPEN) 100 unit/mL through Covermymeds Questions Completed/attached notes Waiting for determination Anali Marshall [employer] [facility] [place] [facility]04-11-2025 Progress note* Quick Notes - Inna Garcia MD - 06/23/2024 9:27 AM EDT S: Laina De León is a 28 year old [...] today ASSESSMENT/PLAN: 1. 20 weeks gestation of ([facility]) - ICD9: V22.2, ICD10: Z3A.20 (primary diagnosis) 2. Insulin controlled gestational diabetes mellitus (GDM) in second trimester ([facility]) - ICD9: 648.83,ICD10: O24.414 New insulin dosage per endocrine 3. Anemia, unspecified type - ICD9: 285.9, ICD10: D64.9 IV iron 4. Rh negative state in antepartum period ([facility]) - ICD9: 646.83, ICD10: O26.899, Z67.91 Rhogam at 28 5. Encounter for supervision of normal in multigravida ([facility]) - ICD9: V22.1, ICD10: Z34.80 Inna Garcia MD [facility]04-11-2025 Miscellaneous Notes* Quick Notes - Inna Garcia MD - 06/23/2024 9:27 AM EDT S: Laina De León is a 28 year old [...] today ASSESSMENT/PLAN: 1. 20 weeks gestation of ([facility]) - ICD9: V22.2, ICD10: Z3A.20 (primary diagnosis) 2. Insulin controlled gestational diabetes mellitus (GDM) in second trimester ([facility]) - ICD9: 648.83,ICD10: O24.414 New insulin dosage per endocrine 3. Anemia, unspecified type - ICD9: 285.9, ICD10: D64.9 IV iron 4. Rh negative state in antepartum period ([facility]CC) - ICD9: 646.83, ICD10: O26.899, Z67.91 Rhogam at 28 5. Encounter for supervision of normal in multigravida ([facility]) - ICD9: V22.1, ICD10: Z34.80 Inna Garcia MD [facility] Instructions* Patient Instructions* Maritza Schneider MA - 06/23/2024 8:12 AM EDT SEQUENTIAL SCREENINGS The [facility] offers sequential screenings for women who [...] testing. It will require an appointment withour civil laboratory technician. This is not an ultrasound [...] the above symptoms, contact our office at [phone] and ask to speak with anurse. After hours, you can call doctors registry at [phone] OR call [facility] at [phone] ask to have the doctor environmental health officer paged. If you consider this an emergency, dial or go to your nearest emergency department. NEED HELP? Are you dealing with a violent or abusive relationship? Are you a victim of rape or sexual assult? Call [facility] ([place]) 24 hour Crisis Hotline: 820.962.2435 or 368-116-8703. MANUAL Your Guide to a Healthy manual is now on-line. Visit [email or web address] to download your free copy [facility] Telephone encounter Note * Telephone Encounter - Inna Dowell MA - 06/22/2024 3:46 PM EDT Prior Auth requested for Humulin kwikpen 100u/ml Mcgowan [id number] Inna Dowell MA [facility]04-10-2025 Instructions* Patient Instructions* Eddi Sneed MD - 06/22/2024 3:20 PM EDT Please administer 32 units of NPH before breakfast and 16 units before dinner Please start using [employer] 3+, scripts sent documented [facility]2025 NoteHNO ID: [id number] Author: EDDI SNEED MD Service: ? Author Type: Physician Type: Progress Notes Filed: 06/25/2024 18:22 Note Text: [facility] Initial Clinic Visit Note Referred by: Inna Garcia MD (OBGYN) Chief complaint: Gestational Diabetes Mellitus My final recommendations will be communicated back to the requesting physician by way of shared medical record or letter via [place] mail. History of Present Illness: Laina De León is a 28 year old [...] Diagnosis Date Anemia complicating , first trimester ([facility]) 03/24/2019 Anemia during in second trimester ([facility]) 05/19/2023 Asthma as a child Childhood asthma without complication ([facility]) 01/03/2018 01/03/2018 Not currently using Albuterol inhaler. Continue to monitor. No Hemabate. SW Concussion 2010 COVID-19 virus infection 03/26/202103/2021 Diet controlled gestational diabetes mellitus (GDM) in third trimester ([facility]) 08/16/2019 Gestational hypertension ([facility]) History of gestational hypertension 03/16/2019 Hx of gestational diabetes mellitus, not currently 05/16/2020 Insulin controlled gestational diabetes mellitus (GDM) in third trimester ([facility]) 05/19/2023 Maternal iron deficiency anemia complicating , third trimester ([facility]) 05/04/2023 Mononucleosis NEGATIVE MEDICAL HISTORY normal color vision PMH - PAST MEDICAL HISTORY OF slip disc Polyhydramnios in third trimester ([facility]) 07/05/2018 06/03/23 (more content not included)...[facility]04-10-2025 History of Present illness Narrative* Eddi Sneed MD - 06/22/2024 2:58 PM EDT [facility] Initial Clinic Visit Note Referred by: Inna Garcia MD (OBGYN) Chief complaint: Gestational Diabetes Mellitus My final recommendations will be communicated back to the requesting physician by way of shared medical record or letter via [place] mail. History of Present Illness: Laina De León is a 28 year old [...] Diagnosis Date Anemia complicating , first trimester ([facility]) 03/24/2019 Anemia during in second trimester ([facility]) 05/19/2023 Asthma as a child Childhood asthma without complication ([facility]) 01/03/2018 01/03/2018 Not currently using Albuterol inhaler. Continue to monitor. No Hemabate. SW Concussion 2009 COVID-19 virus infection 03/26/202103/2021 Diet controlled gestational diabetes mellitus (GDM) in third trimester ([facility]) 08/16/2019 Gestational hypertension ([facility]) History of gestational hypertension 03/16/2019 Hx of gestational diabetes mellitus, not currently 05/16/2020 Insulin controlled gestational diabetes mellitus (GDM) in third trimester ([facility]) 05/19/2023 Maternal iron deficiency anemia complicating , third trimester ([facility]) 05/04/2023 Mononucleosis NEGATIVE MEDICAL HISTORY normal color vision PMH - PAST MEDICAL HISTORY OF slip disc Polyhydramnios in third trimester ([facility]) 07/05/2018 06/03/23 Mild noted on 32 week growth. Continue to plan for testing. Cristy Matthew APRN.CNPApril 2018 D/w her risks. NSTs weekly. Kick counts. PTL precuations. F/u weekly. Yovani Mora MD Spondylolysis of lumbar region 06/25/2011 [...] 3 mL 0 flash glucose sensor (FREESTYLE ELEANOR 14 DAY SENSOR) kit Apply new sensor [...] day before meals. 1 each 0 Insulin Gilbert, Disposable, (PEN NEEDLE) 32 gauge x 5/32 [...] for Thyroid Function tests in . Thyroid, 2019:29:3:412-420.Yobani Ellington et al. 2017 Guidelines of the [place] Thyroid Association for the Diagnosis and Management [...] Ellington et al. 2017 Guidelines of the [place] Thy[employer] Association for the Diagnosis and Management [...] Ellington, et al. 2017 Guidelines of the [place] Thyroid [employer] for the Diagnosis and Management of Thyroid Disease during and the . Thyroid, 2017:27:3:315-389. Free T4 Date Value Ref Range Status 05/16/2020 1.3 0.9 - 1.7 ng/dL Final Hemoglobin A1C Date Value Ref Range Status 06/16/2024 5.3 4.3 - 5.6 % Final Comment: [place] [employer] guidelines indicate that patients with [...] low carb high protein- will send prescriptions forlibre 3+ -hypoglycemia treatment reviewed, along with BG targets. Reviewed lowering insulin dose by2 units in the evening if waking up [...] dietitian - labs for cholesterol may not cell changer, hence will defer, reviewed diet and exercise as above Scripts sent to pharmacy of pt choice: Yes RTC in 4 weeks I have confirmed and edited as necessary, the past medical, surgical, family, and social history asobtained by others. I spent a total of 55 minutes on the date of the service which included preparing to see the patient, [id number] patient care, completing clinical documentation, obtaining and/or reviewing separately obtained history, performing a medically appropriate examination, counseling and educating the pat ient/family/caregiver, ordering medications, tests, or procedures, independently interpreting results (not separately reported), and communicating results to the patient/family/caregiver. Eddi Sneed MD Endocrinology Associate Staff [facility]ocrinology [facility] Metabolism [place] [phone] documented in [facility]04-[facility]-2025 NoteHNO ID: [id number] Author: INNA DOWELL MA Service: ? Author Type: Stone Rigger Type: Progress Notes Filed: 06/21/2024 11:23 Note Text:[facility]04-09-2025 History of Present illness Narrative* Inna Dowell MA - 06/21/2024 11:03 AM EDT Images from the original note were not included. * Samatnha Elias RN - 06/21/2024 10:59 AM EDT DIABETES CARE AND EDUCATION VISIT Location: [place] Type of visit: In person individual PATIENT'S [...] record. SIGNATURE: Samantha Elias RN PATIENT NAME: Laina De León DATE: June 21, 2024 TIME: 10:59 AM [facility] Telephone encounter Note * Telephone Encounter - Inna Garcia MD - 06/21/2024 10:59 AM EDT Thank you. Orders signed [facility]04-09-2025 NoteHNO ID: [id number] Author: SAMANTHA ELIAS RN Service: ? Author Type: Registered Nurse Type: Progress Notes Filed: 06/21/2024 11:23 Note Text: DIABETES CARE AND EDUCATION VISIT Location: [place] Type of visit: In person individual PATIENT'S [...] record. SIGNATURE: Samantha Elias RN PATIENT NAME: Laina De León DATE: June 21, 2024 TIME: 10:59 [facility]04-09-2025 Miscellaneous Notes* Telephone Encounter - Inna Garcia MD - 06/21/2024 10:59 AM EDT Thank you. Orders signed * Telephone Encounter - Laina Cardoza RN - 06/21/2024 10:25 AM EDT Spoke to Endocrinology- Dr. Torres is able to see patient tomorrow at 3pm. Balaji-bale tie machine operator-able to see Pt today at 11am to assist with linking Pt's eleanor to [employer] system. Pt is agreeable to seeing Endo Dietitian Wednesday virtually at 11am. At bedtime-eating cheese stick, cottage cheese, yogurt. Advised Pt to be cautious with the yogurt as it can have a lot of sugar in it. Pt states that its usually around 2am that she wakes up with herBG around 40/50's and she is hot/sweaty. Advised Pt to maybe set an alarm for 1am and eat protein-such as peanuts to help stabilize BG. Pt states she has been trying to stick to eating mainly meats and vegetables Pt states yesterday at grilled chicken wrap-used mini tortilla (0 carb wrap). Please file pended orders. PSS scheduling appts. Laina Cardoza RN * Telephone Encounter - Inna Garcia MD - 06/21/2024 10:01 AM EDT Okay * Telephone Encounter - Laina Cardoza RN - 06/21/2024 9:17 AM EDT 20w3d DX gestational DM-sent to [facility] on Wednesday. Discharged home on Wednesday. Pt was started on Lispro & Lantus insulin and dosage/ Has [facility]. Ever since leaving on Wednesday has been keeping a log of blood sugars. Fluctuating -180's then downto 40's , constant headaches since Wednesday Taking Tylenol-helps, but not taking completely away. Has not been monitoring blood pressures and denies having BP problems at this time. Pt states she is eating high protein meals. The low BG are waking her up at night. Currently in [place] [facility] getting an iron infusion-appt at 930 (60 minute appt). Advised Pt that headaches can occur with fluctuations in blood sugars and that she should be seen to discuss with provider what dosage would be best for her. Please advise on when Pt should be seen. Laina Cardoza RN documented in [facility] encounterL[facility]04-[facility] Telephone encounter Note * Telephone Encounter - Laina Cardoza RN - 06/21/2024 10:25 AM EDT Spoke to Endocrinology- Dr. Torres is able to see patient tomorrow at 3pm. Balaji-bale tie machine operator-able to see Pt today at 11am to assist with linking Pt's eleanor to [employer] system. Pt is agreeable to seeing Endo Dietitian Wednesday virtually at 11am. At bedtime-eating cheese stick, cottage cheese, yogurt. Advised Pt to be cautious with the yogurt as it can have a lot of sugar in it. Pt states that its usually around 2am that she wakes up with herBG around 40/50's and she is hot/sweaty. Advised Pt to maybe set an alarm for 1am and eat protein-such as peanuts to help stabilize BG. Pt states she has been trying to stick to eating mainly meats and vegetables Pt states yesterday at grilled chicken wrap-used mini tortilla (0 carb wrap). Please file pended orders. PSS scheduling appts. Laina Cardoza RN [facility]04-09-2025 Telephone encounter Note* Telephone Encounter - Inna Garcia MD - 06/21/2024 10:01 AM EDT Okay [facility]04-09-2025 Telephone encounter Note* Telephone Encounter - Laina Cardoza RN - 06/21/2024 9:17 AM EDT 20w3d DX gestational DM-sent to [facility] on Wednesday. Discharged home on Wednesday. Pt was started on Lispro & Lantus insulin and dosage/ Has Eleanor. Ever since leaving on Wednesday has been keeping a log of blood sugars. Fluctuating -180's then downto 40's , constant headaches since Wednesday Taking Tylenol-helps, but not taking completely away. Has not been monitoring blood pressures and denies having BP problems at this time. Pt states she is eating high protein meals. The low BG are waking her up at night. Currently in [facility] getting an iron infusion-appt at 930 (60 minute appt). Advised Pt that headaches can occur with fluctuations in blood sugars and that she should be seen to discuss with provider what dosage would be best for her. Please advise on when Pt should be seen. Laina Cardoza RN [facility]04-05-2025 NoteHNO ID: [id number] Author: CRISTY SWENSON DO Service: Obstetrics Author [...] second trimester (HCC) - direct admission from [place] to the [facility] service for glycemic control in the setting of GDM - fasting glucose 78 (/) - initiate Lantus , log 12/22/09, SS1 - admission CBC, CMP within normal limits other than iron deficiency anemia - Hgb A1c pending - fasting and 1 hour post-prandial blood glucose - consult nutrition - s/p DM education Rh negative state in antepartum period ([facility]) - A negative will need Rhogam at 28 wks History of gestational hypertension - GHTN in G1/G2 - compliant with bASA 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 She has [...] results. SIGNATURE: Cristy Swenson DO PATIENT NAME: Laina De León DATE: June 17, 2024 TIME: 6:38 [facility]04-04-2025 NoteHNO ID: [id number] Author: HANNAH ANTHONY RN Service: Diabetes Education Author Type: Registered [...] of diabetes -Monitoring: BG targets, CGM type: Eleanor, rationale for HGM, and testing frequency -Healthy [...] Diabetes and Time Spent (Minutes): 30 SIGNATURE: Hannah Anthony RN PATIENT NAME: Laina De León DATE: June 16, 2024 TIME: 3:42 PM PAGER: [address] [place], [place] [id number] Telephone encounter Note* Telephone Encounter - Klarissa Soto RN - 06/16/2024 12:23 PM EDT Patient notified. Klarissa Soto RN [facility]04-04-2025 Miscellaneous Notes* Telephone Encounter - Klarissa Soto RN - 06/16/2024 12:23 PM EDT Patient notified. Klarissa Soto RN * Telephone Encounter - Génesis Jules MD - 06/16/2024 12:21 PM EDT Please call patient- I spoke to [facility] Dr. Jocelynn Mackenzie environmental health officer for [facility]- pt is go proceed to [facility] for admission for BS control. * Telephone Encounter - Klarissa Soto RN - 06/16/2024 12:15 PM EDT Patient notified and wants to go to [facility]. Klarissa Soto RN * Telephone Encounter - Génesis Jules MD - 06/16/2024 11:48 AM EDT Please call patient- I reached out to [facility]- BS are extremely elevated. They agree with admission forBS regulation- either [place], [facility] or [facility]. Would she be ok with this- and where does she prefer? * Telephone Encounter - Inna Horne RN - 06/16/2024 8:45 AM EDT 19w5d Please review elevated blood sugars in RR's absence. Thank you. documented in this encounterLima [facility] Hospital04-04-2025 Telephone encounter Note * Telephone Encounter - Génesis Jules MD - 06/16/2024 12:21 PM EDT Please call patient- I spoke to [facility] Dr. Jocelynn Mackenzie environmental health officer for [facility]- pt is go proceed to [facility] for admission for BS control. [facility] Work Phone: [phone]) 197-365804-04-2025 Telephone encounter Note* Telephone Encounter - Klarissa Soto RN - 06/16/2024 12:15 PM EDT Patient notified and wants to go to [facility]. Klarissa Soto RN [facility]04-04-2025 Telephone encounter Note* Telephone Encounter - Génesis Jules MD - 06/16/2024 11:48 AM EDT Please call patient- I reached out to [facility]- BS are extremely elevated. They agree with admission forBS regulation- either [place], [place] or [facility]. Would she be ok with this- and where does she prefer? [facility]04-04-2025 Telephone encounter Note* Telephone Encounter - Inna Horne, KEYONNA - 06/16/2024 8:45 AM EDT 19w5d Please review elevated blood sugars in RR's absence. Thank you. [facility]03-24-2025 NoteHNO ID: [id number] Author: LUH QUINN RN Service: ? Author [...] Continue to plan for testing. Cristy Matthew APRN.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 July 05, 2018 D/w her risks. NSTs weekly. Kick counts. PTL precuations. F/u weekly. Yovani Mora MD Spondylolysis of lumbar region 06/25/2011 [...] a provider for review and evaluation for treatment.[facility]03-24-2025 History of Present illness Narrative* Luh Quinn RN - 06/05/2024 12:55 PM EDT Patient referred to Blood Management for evaluation [...] Continue to plan for testing. Cristy Matthew APRN.CNPApril 2018 D/w her risks. NSTs weekly. Kick counts. PTL precuations. F/u weekly. Yovani Mora MD Spondylolysis of lumbar region 06/25/2011 [...] and evaluation for treatment. documented in this encounterLima [facility] Hospital03-19-2025 Progress note* Quick Notes - Yovani Mora MD - 05/31/2024 4:06 PM EDT RR- VB No. LOF No. [...] reports fasting BS > 150 in am. Yovani Mora M.D. [facility]03-19-2025 Miscellaneous Notes* Quick Notes - Yovani Mora MD - 05/31/2024 4:06 PM EDT RR- VB No. LOF No. [...] reports fasting BS > 150 in am. Yovani Mora M.D. documented in this encounterLima Memorial Hospital03-19-2025 Instructions* Patient Instructions* Donna Miguel MA - 05/31/2024 3:30 PM EDT SEQUENTIAL SCREENINGS The [facility] offers sequential screenings for women who [...] testing. It will require an appointment withour civil laboratory technician. This is not an ultrasound [...] the above symptoms, contact our office at [phone] and ask to speak with anurse. After hours, you can call doctors registry at [phone] OR call [facility] at [phone] ask to have the doctor environmental health officer paged. If you consider this an emergency, dial 9-1-7 or go to your nearest emergency department. NEED HELP? Are you dealing with a violent or abusive relationship? Are you a victim of rape or sexual assult? Call [facility] ([place]) 24 hour Crisis Hotline: 363.734.6663 or 316-520-3222. MANUAL Your Guide to a Healthy manual is now on-line. Visit [email or web address] to download your free copy documented in this encounterLima Memorial Hospital03-19-2025 Telephone encounter Note * Telephone Encounter - Kalpana Laguerre APRN.CNM - 05/31/2024 9:41 AM EDT Blood management consulted. Kalpana Laguerre APRN.CNM [facility]03-19-2025 Instructions* Patient Instructions* Kalpana Laguerre APRN.CNM - 05/31/2024 9:41 AM EDT Referral to Blood Management: We want to let you know we have placed a referral for you to our Blood Management Program. Your labresults show that you have anemia, and this [...] , you can visit the following link: [email or web address] Please feel free to reach out to us if you have any questions or concerns. documented in this encounterLima Memorial Hospital03-19-2025 Miscellaneous Notes* Telephone Encounter - Kalpana Laguerre APRN.CNM - 05/31/2024 9:41 AM EDT Blood management consulted. Kalpana Laguerre APRN.CNM documented in this encounterLima Memorial Hospital02-12-2025 Progress note* Quick Notes - Kalpana Laguerre APRN.CNM - 04/26/2024 10:22 AM EST S: Laina De León is a 28 year old [...] 28 weeks gestation - RTO 4 weeks Kalpana Laguerre APRN.CNM [facility]02-12-2025 Miscellaneous Notes* Quick Notes - Kalpana Laguerre APRN.CNM - 04/26/2024 10:22 AM EST S: Laina De León is a 28 year old [...] 28 weeks gestation - RTO 4 weeks Klapana Laguerre APRN.CNM documented in this encounterLima Memorial Hospital02-12-2025 Instructions* Patient Instructions* Tom Thomson MA - 04/26/2024 10:14 AM EST SEQUENTIAL SCREENINGS The [facility] offers sequential screenings for women who [...] testing. It will require an appointment withour civil laboratory technician. This is not an ultrasound [...] the above symptoms, contact our office at [phone] and ask to speak with anurse. After hours, you can call doctors registry at [phone] OR call [facility] at [phone] ask to have the doctor environmental health officer paged. If you consider this an emergency, dial 8-8-6 or go to your nearest emergency department. NEED HELP? Are you dealing with a violent or abusive relationship? Are you a victim of rape or sexual assult? Call [facility] ([place]) 24 hour Crisis Hotline: 615.742.1695 or 732-312-9966. MANUAL Your Guide to a Healthy manual is now on-line. Visit [email or web address] to download your free copy documented in this encounterLima Memorial Hospital01-21-2025 Telephone encounter Note * Telephone Encounter - Inna Carroll RN - 04/04/2024 11:24 AM EST 1st risk assessment form submitted 04/04/2024. Inna aCrroll RN [facility]01-21-2025 Miscellaneous Notes* Telephone Encounter - Inna Carroll RN - 04/04/2024 11:24 AM EST 1st risk assessment form submitted 04/04/2024. Inna Carroll RN documented in this encounterLima Memorial Hospital01-14-2025 NoteHNO ID: [id number] Author: KAYY LONGO APRN.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 Service: ? 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 As applicable, any other physician, advance practice provider, medical student, or other health professional student that will be observing or involved in the sensitive examination for educational or training purposes was discussed with the Patient or Authorized Expressive Music Therapist. The Patient or Authorized Expressive Music Therapist has agreed to proceed with the sensitive [...] +cardiac activity, CRL consistent with LMP. Kayy Longo, INDUSTRIAL WELDER.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 ASSESSMENT: 28 year old at 4w3d wks gestational age PLAN: 1) Patient oriented to practice. Patient given new OB orientation folder. Discussed nutrition, folic acid supplementation, dietary guidelines, exercise, smoking, alcohol, caffeine, and drug use. Discussed gestational weight gain guidelines. Discussed routine OB labs including STD/HIV. Discussed how to access Your guide to a health and the Winding Inspector. 2) Screening: Hemoglobin A1C: ordered Baby Aspirin: [...] aneuploidy screening was provided. The patient chooses toproceed with First trimester early anatomy ultrasound (12-13w6d) [...] Follow up in 4 weeks or sooner prkeily. Kayy Longo APRN.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 documented in this encounterLima Memorial Hospital01-14-2025 Instructions* Patient Instructions* Patricia Valentine LPN - 03/28/2024 2:10 PM EST Please select the following link to access the [facility] Your Guide to a Healthy . [email or web address] Please select the following link to access the [facility] Your Guide to a Healthy . [email or web address] documented in this encounterLima Memorial Hospital01-02-2025 NoteHNO ID: [id number] Author: DANI RUDOLPH MD Service: ? Author Type: Physician Type: Progress Notes Filed: 03/16/2024 10:42 Note Text: The patient presents for requested ultrasound. Full report available in the Imaging tab in Equivalent DATA. [facility] History of Present illness Narrative* Dani Rudolph MD - 03/16/2024 10:40 AM EST The patient presents for requested ultrasound. Full report available in the Imaging tab in Equivalent DATA. Dani Rudolph MD documented in this encounterLima Memorial Hospital12-23-2024 Telephone encounter Note * Telephone Encounter - Inna Horne RN - 03/06/2024 8:42 AM EST See result note. Inna Horne, RN [facility]12-23-2024 Miscellaneous Notes* Telephone Encounter - Inna Horne RN - 03/06/2024 8:42 AM EST See result note. Inna Horne RN * Telephone Encounter - Laina Cardoza RN - 03/03/2024 10:16 AM EST ----- Message from Inna Garcia MD sent at 03/03/2024 10:02 AM EST ----- Keep open for future results documented in this encounterLima Memorial Hospital12-20-2024 Telephone encounter Note * Telephone Encounter - Laina Cardoza RN - 03/03/2024 10:16 AM EST ----- Message from Inna Garcia MD sent at 03/03/2024 10:02 AM EST ----- Keep open for future results [facility]12-18-2024 Telephone encounter Note* Telephone Encounter - Mariah Bolivar RN - 03/01/2024 1:53 PM EST Patient notified and voiced understanding, will get blood work completed tomorrow. Mariah Bolivar RN [facility]12-18-2024 Miscellaneous Notes* Telephone Encounter - Mariah Bolivar RN - 03/01/2024 1:53 PM EST Patient notified and voiced understanding, will get blood work completed tomorrow. Mariah Bolivar RN * Telephone Encounter - Inna Garcia MD - 03/01/2024 1:32 PM EST Yes. Orders placed * Telephone Encounter - Mariah Bolivar RN - 03/01/2024 1:17 PM EST Patient was last seen in the office [...] want patient to have repeat blood work? Mariah Bolivar RN documented in this encounterLima Memorial Hospital12-18-2024 Telephone encounter Note * Telephone Encounter - Inna Garcia MD - 03/01/2024 1:32 PM EST Yes. Orders placed [facility]12-18-2024 Telephone encounter Note* Telephone Encounter - Mariah Bolivar RN - 03/01/2024 1:17 PM EST Patient was last seen in the office [...] want patient to have repeat blood work? Mariah Bolivar RN [facility]11-29-2024 Telephone encounter Note* Telephone Encounter - Klarissa Soto RN - 02/11/2024 9:45 AM EST Patient notified. Klarissa Soto RN [facility]11-29-2024 Miscellaneous Notes* Telephone Encounter - Klarissa Soto RN - 02/11/2024 9:45 AM EST Patient notified. Klarissa Soto RN * Telephone Encounter - Génesis Jules MD - 02/11/2024 9:37 AM EST She can start it. * Telephone Encounter - Klarissa Soto RN - 02/09/2024 4:25 PM EST Patient saw DM 02/01 for f/u miscarriage and was prescribed Nuvaring. She is asking when she can start that. She is still having light bleeding from miscarriage. Aware provider is back in office on 02/10. Klarissa Soto RN documented in this encounterLima Memorial Hospital11-29-2024 Telephone encounter Note * Telephone Encounter - Génesis Jules MD - 02/11/2024 9:37 AM EST She can start it. [facility]11-27-2024 Telephone encounter Note* Telephone Encounter - Klarissa Soto RN - 02/09/2024 4:25 PM EST Patient saw DM 02/01 for f/u miscarriage and was prescribed Nuvaring. She is asking when she can start that. She is still having light bleeding from miscarriage. Aware provider is back in office on 02/10. Klarissa Soto RN [facility]11-20-2024 NoteHNO ID: [id number] Author: GÉNESIS JULES MD Service: ? Author Type: Physician Type: Progress Notes Filed: 02/02/2024 11:59 Note Text: Assistant Dean Of Students offered: Patient declines. Laina De León is a 28 year old [...] L3 SAB0 IAB0 Ectopic0 Multiple0 Live Births3 Tax Consultant History LMP: 10/20/2022 (Exact Date), Unknown Age at Menarche: Age at First : Age at Menopause: Tax Consultant History Comments: Sexual Activity: Not Currently; Male [...] discussed with the Patient or Patient's Authorized Expressive Music Therapist. As applicable, any other physician, advance practice provider, medical student, or other health professional student that will be observing or involved in the sensitive examination for educational or training purposes was discussed with the Patient or Authorized Expressive Music Therapist. The Patient or Authorized Expressive Music Therapist has agreed to proceed with the sensitive [...] external genitalia normal, normal Bartholin's glands, urethra, [place]'s glands, no vulvar lesions, no cervical lesions, [...] of vaginal ring hormon (more content not included)...[facility]11-20-2024 History of Present illness Narrative* Génesis Jules MD - 02/02/2024 10:15 AM EST Assistant Dean Of Students offered: Patient declines. Laina De León is a 28 year old female who presents for follow up miscarriage- pt reports didn't know she was - took UPT on 01/13, started bleeding on 01/28 - no fevers or pain. Pt reports juststopped breast feeding 2 months ago. Pt was [...] L3 SAB0 IAB0 Ectopic0 Multiple0 Live Births3 Tax Consultant History LMP: 10/20/2022 (Exact Date), Unknown Age at Menarche: Age at First : Age at Menopause: Tax Consultant History Comments: Sexual Activity: Not Currently; Male [...] discussed with the Patient or Patient's Authorized Expressive Music Therapist. As applicable, any other physician, advance practice provider, medical student, or other health professional student that will be observing or involved in the sensitive examination for educational or training purposes was discussed with the Patient or Authorized Expressive Music Therapist. The Patient or Authorized Expressive Music Therapist has agreed to proceed with the sensitive [...] external genitalia normal, normal Bartholin's glands, urethra, [place]'s glands, no vulvar lesions, no cervical lesions, [...] Medical Decision Making Level: 4 - Moderate Génesis Lopez MD documented in this encounterLima Memorial Hospital11-18-2024 Telephone encounter Note * Telephone Encounter - Mariah Bolivar RN - 01/31/2024 10:27 AM EST Patient notified and voiced understanding of results. Follow up scheduled. Mariah Bolivar RN [facility]11-18-2024 Miscellaneous Notes* Telephone Encounter - Mariah Bolivar RN - 01/31/2024 10:27 AM EST Patient notified and voiced understanding of results. Follow up scheduled. Mariah Bolivar RN * Telephone Encounter - Klarissa Soto RN - 01/31/2024 9:56 AM EST Attempted to call patient. Unable to leave message because mailbox was full. Klarissa Soto RN * Telephone Encounter - Kayy Longo APRN.CNP - 01/31/2024 7:30 AM EST Pt quant levels are falling, consistent with a SAB. Pt needs scheduled with doctor to discuss management. Kayy Longo APRN.CNP documented in this encounterLima Memorial Hospital11-18-2024 Telephone encounter Note * Telephone Encounter - Klarissa Soto RN - 01/31/2024 9:56 AM EST Attempted to call patient. Unable to leave message because mailbox was full. Klarissa Soto RN [facility]11-18-2024 Telephone encounter Note* Telephone Encounter - Kayy Longo APRN.CNP - 01/31/2024 7:30 AM EST Pt quant levels are falling, consistent with a SAB. Pt needs scheduled with doctor to discuss management. Kayy Longo APRN.CNP [facility]11-12-2024 Telephone encounter Note* Telephone Encounter - Inna Horne RN - 01/25/2024 8:29 AM EST Patient notified. Will have HCG done on 01/25 and 01/27. Scheduled NOB on 02/23. Inna Horne RN [facility]11-12-2024 Miscellaneous Notes* Telephone Encounter - Inna Horne RN - 01/25/2024 8:29 AM EST Patient notified. Will have HCG done on 01/25 and 01/27. Scheduled NOB on 02/23. Inna Horne RN * Telephone Encounter - Kayy Longo APRN.CNP - 01/25/2024 7:00 AM EST +HCG, repeat x 2, order filed. Assist pt in scheduling NOB. Kayy Longo APRN.CNP documented in this encounterLima Memorial Hospital11-12-2024 Telephone encounter Note * Telephone Encounter - Kayy Longo APRN.CNP - 01/25/2024 7:00 AM EST +HCG, repeat x 2, order filed. Assist pt in scheduling NOB. Kayy Longo APRN.FLORECITA [facility]11-11-2024 Telephone encounter Note* Telephone Encounter - Mariah Bolivar RN - 01/24/2024 10:37 AM EST Patient notified and voiced understanding. Mariah Bolivar RN [facility]11-11-2024 Miscellaneous Notes* Telephone Encounter - Mariah Bolivar RN - 01/24/2024 10:37 AM EST Patient notified and voiced understanding. Mariah Bolivar RN * Telephone Encounter - Kayy Longo APRN.CNP - 01/24/2024 10:17 AM EST Ordered filed. She can stop by and have that done at any time. Kayy Longo APRN.CNP * Telephone Encounter - Inna Horne RN - 01/24/2024 9:53 AM EST Patient states that she has not had a period since she delivered June 2023. Calling to report thatshe had a faint +UPT and a week later, another faint +UPT. She has a Pelvic US on 12/16/23 for a left ovarian cyst. Not using contraception. Interested in discussing if she is not . Denies expe riencing any symptoms. Having some left sided pain, but believes that's from her cyst. HCG pending if appropriate. Inna Horne RN documented in this encounterLima Memorial Hospital11-11-2024 Telephone encounter Note * Telephone Encounter - Kayy Longo APRN.CNP - 01/24/2024 10:17 AM EST Ordered filed. She can stop by and have that done at any time. Kayy Longo APRN.CNP [facility]11-11-2024 Telephone encounter Note* Telephone Encounter - Inna Horne RN - 01/24/2024 9:53 AM EST Patient states that she has not had a period since she delivered June 2023. Calling to report thatshe had a faint +UPT and a week later, another faint +UPT. She has a Pelvic US on 12/16/23 for a left ovarian cyst. Not using contraception. Interested in discussing if she is not . Denies expe riencing any symptoms. Having some left sided pain, but believes that's from her cyst. HCG pending if appropriate. Inna Horne RN [facility]10-15-2024 Telephone encounter Note* Telephone Encounter - Klarissa Soto RN - 12/28/2023 8:47 AM EDT Left message for patient to call office or check mychart. Klarissa Soto RN [facility]10-15-2024 Miscellaneous Notes* Telephone Encounter - Klarissa Soto RN - 12/28/2023 8:47 AM EDT Left message for patient to call office or check mychart. Klarissa Soto, KEYONNA * Telephone Encounter - Yee Egan LPN - 12/17/2023 9:01 AM EDT Left message to call office * Telephone Encounter - Kayy Longo APRN.CNP - 12/17/2023 7:48 AM EDT Please let the patient know that the ovarian cyst has slightly increased in size I would like to repeat the ultrasound in another 12 weeks. Please review torsion precautions with patient. Kayy Longo APRN.CNP documented in this encounterL[facility]10-[facility] Telephone encounter Note * Telephone Encounter - Yee Egan LPN - 12/17/2023 9:01 AM EDT Left message to call office [facility]10-04-2024 Telephone encounter Note* Telephone Encounter - Kayy Longo APRN.CNP - 12/17/2023 7:48 AM EDT Please let the patient know that the ovarian cyst has slightly increased in size I would like to repeat the ultrasound in another 12 weeks. Please review torsion precautions with patient. Kayy Longo APRN.CNP [facility]10-03-2024 NoteHNO ID: [id number] Author: PAMELA GREENE MD Service: ? Author Type: Physician Type: Progress Notes Filed: 12/16/2023 21:19 Note Text: Laina De León is a 28 year old female who presented for reed dipper ultrasound today. Encounter Diagnosis ICD-10-CM 1. Ovarian cyst, left N83.202 Please see report under imaging tab. Pamela Greene MD December 16, 2023 9:14 [facility]10-03-2024 History of Present illness Narrative * Pamela Greene MD - 12/16/2023 9:14 PM EDT Laina De León is a 28 year old female who presented for reed dipper ultrasound today. Encounter Diagnosis ICD-10-CM 1. Ovarian cyst, left N83.202 Please see report under imaging tab. Pamela Greene MD December 16, 2023 9:14 PM documented in this encounterLima [facility] Hospital07-[facility]-2024 Telephone encounter Note * Telephone Encounter - Laina Cardoza RN - 10/04/2023 2:27 PM EDT Pt notified and pelvic u/s appt made. Laina Cardoza RN [facility]07-22-2024 Miscellaneous Notes* Telephone Encounter - Laina Cardoza RN - 10/04/2023 2:27 PM EDT Pt notified and pelvic u/s appt made. Laina Cardoza RN * Telephone Encounter - Kayy Longo APRN.CNP - 10/04/2023 2:03 PM EDT Please let the pt know that there is a cyst on the left ovary which is the likely reason for the pain she is having. I would like her to repeat the US in 10 weeks to monitor cyst. No treatment at this time. Kayy Longo APRN.CNP documented in this encounterLima [facility] Hospital07-22-2024 Telephone encounter Note * Telephone Encounter - Kayy Longo APRN.CNP - 10/04/2023 2:03 PM EDT Please let the pt know that there is a cyst on the left ovary which is the likely reason for the pain she is having. I would like her to repeat the US in 10 weeks to monitor cyst. No treatment at this time. Kayy Longo APRN.CNP [facility]07-20-2024 NoteHNO ID: [id number] Author: PAMELA GREENE MD Service: ? Author Type: Physician Type: Progress Notes Filed: 10/02/2023 09:24 Note Text: Laina De León is a 28 year old female who presented for reed dipper ultrasound today. Encounter Diagnosis ICD-10-CM 1. Pelvic pain in female R10.2 Please see report under imaging tab. Pamela Greene MD October 02, 2023 9:20 [facility]07-20-2024 History of Present illness Narrative * Pamela Greene MD - 10/02/2023 9:20 AM EDT Laina De León is a 28 year old female who presented for reed dipper ultrasound today. Encounter Diagnosis ICD-10-CM 1. Pelvic pain in female R10.2 Please see report under imaging tab. Pamela Greene MD October 02, 2023 9:20 AM documented in this encounterLima [facility] Hospital07-01-2024 History of Present illness Narrative* Kayy Longo APRN.CNP - 09/13/2023 10:18 AM EDT Assistant Dean Of Students offered: Patient declines. Laina De León is a 28 year old female who presents for problem visit left side pelvic pain for 3 week(s). HPI: pain started about 3-4 wks that comes and goes. The pain ranges from cramping to sharp. She isnow noticing the pain more often. Denies any vaginal bleeding. OB History T2 L3 SAB0 IAB0 Ectopic0 Multiple0 Live Births3 Tax Consultant History LMP: 10/20/2022 (Exact Date), Age at Menarche: Age at First : Age at Menopause: Tax Consultant History Comments: Sexual Activity: Not Currently; Male [...] external genitalia normal, normal Bartholin's glands, urethra, [place]'s glands, no vulvar lesions, no cervical lesions, good vaginal support, physiologic discharge present, normal appearing perineal body and perianal region BIMANUAL: uterus normal size, shape and consistency, no adnexal masses, non- tender, and Mild tenderness NEURO: alert and oriented x3,exam grossly non-focal EXTREMITIES: normal ASSESSMENT/PLAN: 1. Pelvic pain in female - ICD9: 625.9, ICD10: R10.2 - PELVIC US I Will notify patient of test results. Kayy Longo APRN.CNP Medical Decision Making: Problems: Low: Acute, uncomplicated illness or injury Data: Unique test(s) ordered: 1 Risk: Low: Low risk from testing/treatment Medical Decision Making Level: 3 - Low documented in this encounterLima [facility] Hospital04-30-2024 Miscellaneous Notes* Telephone Encounter - Jenifer Jeffery RN - 07/13/2023 10:19 AM EDT Patient has appt with RR today * Telephone Encounter - Leonela Carreon LPN - 07/06/2023 3:32 PM EDT Medication has been approved, attempted to contact pt without success. Message left asking pt to contact office for update. Pt does not actively use her mychart. Leonela Carreon LPN * Telephone Encounter - Leonela Carreon LPN - 06/10/2023 2:45 PM EDT Electronic PA submitted. Will await further response from pts insurance. Leonela Carreon LPN * Telephone Encounter - Jenifer Jeffery RN - 06/09/2023 9:44 AM EDT Left message on pharmacy voicemail for them to call us or send us information regarding Insulin coverage,Several attempts by phone to reach pharmacy with long wait times * Telephone Encounter - Jenifer Jeffery RN - 06/09/2023 9:13 AM EDT Attempted to call [facility], was on hold for 15 minutes-will attempt again * Telephone Encounter - Jenifer Jeffery RN - 06/09/2023 8:48 [address] EDT [address] with Dr Garcia. Patient to go to [facility]. She is instructed not to drive. She is to have her father drive her. I called Iveth AT [facility] L&D. Please call orders, Dr Gutierrez. Updated Episode faxedto [facility] * Telephone Encounter - Jenifer Jeffery RN - 06/09/2023 8:30 AM EDT PATIENT CALLING IN. States she has been unable to tow picker Novalin R due to Insurance issues. Took [...] appt with Dr Garcia documented in this encounterLima [facility] Hospital04-30-2024 Telephone encounter Note * Telephone Encounter - Jenifer Jeffery RN - 07/13/2023 10:19 AM EDT Patient has appt with RR today [facility]04-30-2024 History of Present illness Narrative* Yovani Mora MD - 07/13/2023 10:01 AM EDT EARLY VISIT Laina De León is a 28 year old [...] No heartburn or reflux symptoms, and Negative forabdominal discomfort, blood in stools or black stools Abdomen: N/A Bleeding: spotting Bottom and Perineum: No issues Sleep: no sleep concerns and sleeps in bassinet/crib in parent's room, feels rested [place] since delivery: Not resumed Emotional support: Yes Exercise: N/A Other issues: None Above reviewed and agree. Yovani Mora MD PHYSICAL EXAMINATION: Wt 167 lb [...] for 6 week visit and as needed Yovani Mora MD documented in this encounterLima [facility] Hospital04-23-2024 Telephone encounter Note * Telephone Encounter - Leonela Carreon LPN - 07/06/2023 3:32 PM EDT Medication has been approved, attempted to contact pt without success. Message left asking pt to contact office for update. Pt does not actively use her mychart. Leonela Carreon LPN [facility]04-23-2024 Hospital Discharge instructions Additional Instructions Date of Discharge: 07/06/23[facility] Work Phone: 1(619) 765-932704-23-2024 Progress note Author Kimi Smith [facility] July 06, 2023 8:56am Note Date/Time July 06, 2023 8:[address] [facility] Medical Records Department [address] [place] [address] Progress Note - OBGYN 07/06/23 0854 MR#: [id number] Acct: [id number] Name: LAINA DE LEÓN Rep #:[id number] : 1995 28 From: Kimi DOMINGUEZ PCP: SHAYY Alejandro Status:ADM I N Location: [place] [address] Subjective Subjective Doing well per patient and [...] Cosigner Signature (if applicable): CC: ~ Signed [facility] Work Phone: 1(918) 505-255104-23-2024 Discharge summary Author Kimi Smith [facility] July 06, 2023 8:54am Note Date/Time July 06, 2023 8:[address] [place] [address] Medical Records Department [address] [place] [address] Discharge Summary 07/06/23 0852 MR#: [id number] Acct: [id number] Name: LAINA DE LEÓN Rep #:[id number] : 1995 28 From: Kimi DOMINGUEZ PCP: SHAYY Alejandro Status:ADM I N Location: [place] [address] Providers Date of Admission: 07/04/23 Primary Care [...] applicable): CC: SAM Smith; SHAYY Alejandro~ Signed [facility] Work Phone: 1(446) 200-330004-23-2024 Discharge summary Author Kimi Smith [facility] July 06, 2023 8:52am Note Date/Time July 06, 2023 8:[address] [facility] Medical Records Department [address] [facility] [place] [address] Discharge Summary 07/06/23 0851 MR#: [id number] Acct: [id number] Name: LAINA DE LEÓN Rep #:[id number] : 1995 28 From: Kimi DOMINGUEZ PCP: SHAYY Alejandro Status:ADM I N Location: [place] [address] Providers Date of Admission: 07/04/23 Date of [...] applicable): CC: SAM Smith; SHAYY Alejandro~ Signed [facility] Work Phone: [phone]) 337-802704-23-2024 [facility] Medical Records Department [address] [place] [address] Discharge Summary 07/06/23851 MR#: [id number] Acct: [id number] Name: LAINA DE LEÓN Rep #: [id number] : 1995 28 From: Kimi Smith CNM PCP: SHAYY Alejandro Status:ADM IN Location: [id number] Providers Date of Admission: 07/04/23 Primary Care [...] (if applicable): CC: SAM Smith; SHAYY Alejandro [facility]04-23-2024 [facility] Medical Records Department [address] [facility] [place] [address] Discharge Summary 07/06/23 0851 MR#: [id number] Acct: [id number] Name: LAINA DE LEÓN Rep #: [id number] : 1995 28 From: Kimi Smith CNM PCP: SHAYY Alejandro Status:ADM IN Location: CF499-7 Providers Date of Admission: 07/04/23 Date of [...] subcut QHS Referrals / Follow Up: Natalie Bulm PA [Primary Care Provider] - 07/06/23 0852 Cosigner Signature (if applicable): CC: SAM Smith; SHAYY Alejandro [facility]24 Progress note Author Inna Garcia [facility] July 05, 2023 8:31am Note Date/Time July 05, 2023 8:[address] [facility] Medical Records Department [address] [facility] [place] [address] Progress Note - OBGYN 07/05/23829 MR#: [id number] Acct: [id number] Name: LAINA DE LEÓN Rep #:[id number] : 1995 28 From: Inna Garcia MD PCP: SHAYY Alejandro Status:ADM I N Location: PE139-1 Subjective Subjective Feels good. BG have been [...] requiring insulin: PLAN: Plan Expect D/c tomorrow 07/05/23 0831 <Electronically signed by Inna Garcia MD> Cosigner Signature (if applicable): CC: ~ Signed [facility] Work Phone: 1(543) 819-925104-22-2024 History of Present illness Narrative* Klarissa Soto RN - 07/05/2023 8:57 AM EDT Patient delivered via by Dr. Edwards on 07/04/23 at [facility]. See OB history. Klarissa Soto RN documented in this encounterLima [facility] Hospital04-21-2024 Progress note Author Sandraadonis Edwards [facility] July 04, 2023 2:12pm Note Date/Time July 04, 2023 2:1 2pm [facility] Medical Records Department [address] [place] [address] Progress Note 07/04/23 1405 MR#: [id number] Acct: [id number] Name: LAINA DE LEÓN Rep #:[id number] : 1995 28 From: Sandra Edwards DO PCP: SHAYY Alejandro Status:ADM I N Location: [place] [address] Progress Note RN called as patient feels [...] Cosigner Signature (if applicable): CC: ~ Signed [facility] Work Phone: 1(656) 583-725704-21-2024 History and physical note Author Sandra Edwards [facility] July 04, 2023 2:05pm Note Date/Time July 04, 2023 8:5 6am [facility] Medical Records Department [address] [place] [address] H&P 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 The patient is a M2M0xng presents at 36w5d with bleeding. She states [...] - Will recheck again in 2 hours. Mitchell with ctx's q 1-3 min, however patient [...] to closely monitor at this time 07/04/23 09 <Electronically signed by Sandra Edwards DO> Cosigner [...] Sandra Edwards DO; SHAYY Alejandro ~* Signed [facility] Work Phone: [phone]) 509-397904-21-2024 Procedure [facility] 07-02-2023 Miscellaneous Notes* Telephone Encounter - Kimi [...] orders. Inna Horne RN documented in this encounterLima [facility] Hospital04-15-2024 History of Present illness Narrative* Yovani Mora MD - 06/28/2023 10:52 AM EDT NST SUMMARY PROVIDER ASSESSMENT AND INTERPRETATION Laina De León is a 28 year old female, , who is at 35w6d with an BELEM of 07/27/2023, by Last Menstrual Period dating method. Indications for NST: Gestational Diabetes - Insulin Controlled Baseline: 145 Variability: Moderate Accelerations: Present 15 X 15 Decelerations: None Contractions: TOCO: Irregular Interpretation: Category I and Reactive SIGNATURE: Yovani Mora MD documented in this encounterLima [facility] Hospital04-15-2024 Miscellaneous Notes* Quick Notes - Yovani Mora MD - 06/28/2023 10:42 AM EDT [...] not done- will have her do today Yovani Mora M.D. documented in this encounterLima Memorial Hospital04-15-2024 Instructions* Patient Instructions* Marly Hernadez MA - 06/28/2023 10:15 AM EDT SEQUENTIAL SCREENINGS [facility] offers sequential screenings for women who [...] testing. It will require an appointment withour civil laboratory technician. This is not an ultrasound [...] the above symptoms, contact our office at [phone] and ask to speak with anurse. After hours, you can call doctors registry at [phone] OR call [facility] at [phone] ask to have the doctor environmental health officer paged. If you consider this an emergency, dial 9-7-2 or go to your nearest emergency department. NEED HELP? Are you dealing with a violent or abusive relationship? Are you a victim of rape or sexual assult? Call [facility] ([place]) 24 hour Crisis Hotline: 974.255.2194 or 635-706-7198. MANUAL Your Guide to a Healthy manual is now on-line. Visit [email or web address] to download your free copy documented in this encounterLima [facility] Hospital04-12-2024 History of Present illness Narrative* Génesis Jules MD - 06/25/2023 11:45 AM EDT NST SUMMARY PROVIDER ASSESSMENT AND INTERPRETATION Laina De León is a 27 year old female, , who is at 35w3d with an BELEM of 07/27/2023, by Last Menstrual Period dating method. Indications for NST: Diabetes - Insulin Controlled Baseline: 145 Variability: Moderate Accelerations: Present 15 X 15 Decelerations: None Contractions: TOCO: None Interpretation: Category I and Reactive SIGNATURE: Génesis Lopez MD documented in this encounterLima [facility] Hospital04-12-2024 Miscellaneous Notes* Quick Notes - Génesis Jules MD - 06/25/2023 11:03 AM EDT [...] 7) next appointment Wednesday - NST scheduled. Génesis Lopez MD documented in this encounterLima Memorial Hospital04-12-2024 Instructions* Patient Instructions* Erika Calderón MA - 06/25/2023 10:12 AM EDT SEQUENTIAL SCREENINGS [facility] offers sequential screenings for women who [...] testing. It will require an appointment withour civil laboratory technician. This is not an ultrasound [...] the above symptoms, contact our office at [phone] and ask to speak with anurse. After hours, you can call doctors registry at [phone] OR call [facility] at [phone] ask to have the doctor environmental health officer paged. If you consider this an emergency, dial 91-6 or go to your nearest emergency department. NEED HELP? Are you dealing with a violent or abusive relationship? Are you a victim of rape or sexual assult? Call [facility] [place] ([place]) 24 hour Crisis Hotline: 708.407.5405 or 299-457-1920. MANUAL Your Guide to a Healthy manual is now on-line. Visit [email or web address] to download your free copy documented in this encounterLima Memorial Hospital04-08-2024 History of Present illness Narrative* Yovani Mora MD - 06/21/2023 1:49 PM EDT NST SUMMARY PROVIDER ASSESSMENT AND INTERPRETATION Laina De León is a 27 year old female, , who is at 34w6d with an BELEM of 07/27/2023, by Last Menstrual Period dating method. Indications for NST: Diabetes - Insulin Controlled and Obesity Baseline: 140 Variability: Moderate Accelerations: Present 15 X 15 Decelerations: None Contractions: TOCO: Irregular Interpretation: Category I and Reactive SIGNATURE: Yovani Mora MD documented in this encounterLima [facility] Hospital04-08-2024 Miscellaneous Notes* Quick Notes - Yovani Mora MD - 06/21/2023 1:44 PM EDT [...] 9.7 plan delivery at 37 weeks- scheduled Yovani Mora M.D. documented in this encounterLima [facility] Hospital04-08-2024 Instructions* Patient Instructions* Yee Egan LPN - 06/21/2023 1:18 PM EDT SEQUENTIAL SCREENINGS [facility] offers sequential screenings for women who [...] testing. It will require an appointment withour civil laboratory technician. This is not an ultrasound [...] the above symptoms, contact our office at [phone] and ask to speak with anurse. After hours, you can call doctors registry at [phone] OR call [facility] at [phone] ask to have the doctor environmental health officer paged. If you consider this an emergency, dial 9--0 or go to your nearest emergency department. NEED HELP? Are you dealing with a violent or abusive relationship? Are you a victim of rape or sexual assult? Call [facility] ([place]) 24 hour Crisis Hotline: 576.520.7471 or 623-064-7225. MANUAL Your Guide to a Healthy manual is now on-line. Visit [email or web address] to download your free copy documented in this encounterLima [facility] Hospital04-01-2024 Miscellaneous Notes* Quick Notes - Inna Garcia MD - 06/14/2023 3:49 PM EDT S: Laina De León is a 27 year [...] B/O Inna Garcia MD documented in this encounterLima Memorial Hospital04-01-2024 Instructions* Patient Instructions* Erika Calderón MA - 06/14/2023 2:11 PM EDT SEQUENTIAL SCREENINGS [facility] offers sequential screenings for women who [...] testing. It will require an appointment withour civil laboratory technician. This is not an ultrasound [...] the above symptoms, contact our office at [phone] and ask to speak with anurse. After hours, you can call doctors registry at [phone] OR call [facility] at [phone] ask to have the doctor environmental health officer paged. If you consider this an emergency, dial 8--4 or go to your nearest emergency department. NEED HELP? Are you dealing with a violent or abusive relationship? Are you a victim of rape or sexual assult? Call [facility] ([place]) 24 hour Crisis Hotline: 875.803.7474 or 568-335-4498. MANUAL Your Guide to a Healthy manual is now on-line. Visit [email or web address] to download your free copy documented in this encounterLima [facility] Hospital03-28-2024 Telephone encounter Note * Telephone Encounter - Leonela Carreon LPN - 06/10/2023 2:45 PM EDT Electronic PA submitted. Will await further response from pts insurance. Leonela Carreon LPN [facility]03-28-2024 Discharge summary Author Inna Garcia [facility] June 10, 2023 8:51am Note Date/Time June 10, 2023 8:4 0am [facility] Medical Records Department [address] [place] [address] Discharge Summary 06/10/23 0840 MR#: [id number] Acct: [id number] Name: LAINA DE LEÓN Rep #:[id number] : 1995 27 From: Inna Garcia MD PCP: SHAYY Alejandro Status:ADM I NO Location: HB418-0 Providers Date of Admission: 06/09/23 Date of Discharge: 06/10/23 Primary Care Physician: SHAYY Alejandro Reason For Visit: BLOOD SUGAR Diagnosis Discharge Diagnosis (1) Gestational diabetes requiring insulin: Status: Acute Code(s): O24.414 - Gestational diabetes mellitus in , insulin controlled Plan: NPH 20 am and 10 QHS plan d/c after laboratory machinist. Has office appointments scheduled (2) 33 weeks [...] Dr. Inna Garcia MD; SHAYY Alejandro~ Signed [facility] Work Phone: 1(307) 407-162803-28-2024 Progress note Author Inna Garcia [facility] June 10, 2023 8:28am Note Date/Time June 10, 2023 8:0 4am [facility] Medical Records Department [address] [place] [address] Progress Note - OBGYN 06/10/23 0803 MR#: [id number] Acct: [id number] Name: LAINA DE LEÓN Rep #:[id number] : 1995 27 From: Inna Garcia MD PCP: SHAYY Alejandro Status:ADM I NO [facility] Subjective Subjective Over night glucose 71 at 3 am. Snack at 10 with a qhs BG of 58. Fasting this am 69. Asymptomatic. Ordering breakfast. Discussed QHS snack and just NPH but 2 times a day. Certified Hearing Instrument Dispenser coming to see her this am. Objective [...] am and 10 QHS plan d/c after laboratory machinist. 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 06/10/23 0609 MR#: [id number] Acct: [id number] Name: LAINA DE LEÓN Rep #:[id number] : 1995 27 From: Inna Garcia MD PCP: SHAYY Alejandro Status:REG C МАРИНА Location: IA261-0 HPI - General General Date of Admission: 06/09/23 Date of Service: 06/09/23 Chief Complaint: headache, high blood sugar HPI Narrative LAINA DE LEÓN, is a 27 F who [...] Final BELEM: 07/27/23 Gestational age: 33+1 PFSH PFSH Medical History Gestational diabetes Gestational [...] antepartum: PLAN: tylenol hydration and BG control 06/10/23628 <Electronically signed by Inna Garcia MD> Cosigner Signature (if applicable): CC: Dr. Inna Garcia MD; SHAYY Alejandro~ Signed [facility] Work Phone: 1(936) 597-132603-27-2024 Telephone encounter Note* Telephone Encounter - Jenifer Jeffery RN - 06/09/2023 9:44 AM EDT Left message on pharmacy voicemail for them to call us or send us information regarding Insulin coverage,Several attempts by phone to reach pharmacy with long wait times [facility]03-27-2024 Telephone encounter Note* Telephone Encounter - Jenifer Jeffery RN - 06/09/2023 9:13 AM EDT Attempted to call [facility], was on hold for 15 minutes-will attempt again [facility]03-27-2024 Telephone encounter Note* Telephone Encounter - Jenifer Jeffery RN - 06/09/2023 8:48 AM EDT DIscussed with Dr Garcia. Patient to go to [facility]. She is instructed not to drive. She is to have her father drive her. I called Iveth AT [facility] L&D. Please call orders, Dr Gutierrez. Updated Episode faxedto [facility]03-27-2024 Telephone encounter Note* Telephone Encounter - Jenifer Jeffery RN - 06/09/2023 8:30 AM EDT PATIENT CALLING IN. States she has been unable to tow picker Novalin R due to Insurance issues. Took [...] and NST and appt with Dr Garcia [facility]03-25-2024 Miscellaneous Notes* Quick Notes - Inna Garcia MD - 06/07/2023 11:03 AM EDT S: Laina De León is a 27 year [...] B/O Inna Garcia MD documented in this encounterLima [facility] Hospital03-25-2024 Instructions* Patient Instructions* Erika Calderón MA - 06/07/2023 9:47 AM EDT SEQUENTIAL SCREENINGS The [facility] offers sequential screenings for women who [...] testing. It will require an appointment withour civil laboratory technician. This is not an ultrasound [...] the above symptoms, contact our office at [phone] and ask to speak with anurse. After hours, you can call doctors registry at [phone] OR call [facility] at [phone] ask to have the doctor environmental health officer paged. If you consider this an emergency, dial 5-1-9 or go to your nearest emergency department. NEED HELP? Are you dealing with a violent or abusive relationship? Are you a victim of rape or sexual assult? Call [facility] ([place]) 24 hour Crisis Hotline: 943.476.7240 or 633-879-1601. MANUAL Your Guide to a Healthy manual is now on-line. Visit [email or web address]/[email or web address] to download your free copy documented in this encounterLima Memorial Hospital03-19-2024 Miscellaneous Notes* Quick Notes - Inna Garcia MD - 06/01/2023 4:10 PM EDT S: Laina De León is a 27 year [...] SYRINGE Inna Garcia MD documented in this encounterLima Memorial Hospital03-19-2024 Nurse Note* Inna Horne RN - 06/01/2023 3:40 PM EDT The patient is here for an injection of Rhogam. Dose: 300 mcg Amount wasted: none. Route: Intramuscular Site: right upper quadrant gluteus Molder Floor: CSL Behring Lot #: see MAY Expiration Date: see MAR The date due for the next injection is n/a Inna Horne RN documented in this encounterLima Memorial Hospital03-19-2024 Instructions* Patient Instructions* Donna Miguel MA - 06/01/2023 1:58 PM EDT SEQUENTIAL SCREENINGS The [facility] offers sequential screenings for women who [...] testing. It will require an appointment withour civil laboratory technician. This is not an ultrasound [...] the above symptoms, contact our office at [phone] and ask to speak with anurse. After hours, you can call doctors registry at [phone] OR call [facility] at [phone] ask to have the doctor environmental health officer paged. If you consider this an emergency, dial 9-1-3 or go to your nearest emergency department. NEED HELP? Are you dealing with a violent or abusive relationship? Are you a victim of rape or sexual assult? Call [facility] ([place]) 24 hour Crisis Hotline: 171.286.2384 or 221-370-2985. MANUAL Your Guide to a Healthy manual is now on-line. Visit [email or web address]/HealthyPregnancyGuide to download your free copy documented in this encounterLima Memorial Hospital03-19-2024 Miscellaneous Notes* Telephone Encounter - Klarissa Soto RN - 06/01/2023 8:30 AM EDT [...] is here for her visit if needed. Klarissa Soto RN documented in this encounterLima Memorial Hospital03-18-2024 Miscellaneous Notes* Telephone Encounter - Génesis Jules MD - 05/31/2023 8:24 AM EDT ordered * Telephone Encounter - Inna Horne RN - 05/31/2023 8:08 AM EDT Patient received her insulin, but it did not come with pen needles. RX pending. Inna Horne RN documented in this encounterLima Memorial Hospital03-14-2024 Miscellaneous Notes* Telephone Encounter - Leonela Carreon LPN - 05/27/2023 4:52 PM EDT Received approval for insulin. Pt notified. Leonela Carreon LPN * Telephone Encounter - Leonela Carreon LPN - 05/27/2023 10:26 AM EDT Electronic PA submitted for insulin. Will await further response from pt's insurance. Leonela Carreon LPN documented in this encounterLima Memorial Hospital03-13-2024 Miscellaneous Notes* Quick Notes - Génesis Jules MD - 05/26/2023 3:55 PM EDT [...] bring BS log but states all fastings [id number] and 1hr PP 150s-170s. 3) will start NPH in morning- advised will likely need Regular with some meals but needs to keep track and bring log next week. 4) will needs weekly BPPs /NSTs- NSTs ordered. As scheduling BPPs now is limited. 5) Mild POLY on ultrasound 6)continue IV IRON 7) continue ASA- h/o GHTN Génesis Lopez MD documented in this encounterLima Memorial Hospital03-13-2024 Instructions* Patient Instructions* Erika Calderón MA - 05/26/2023 2:40 PM EDT SEQUENTIAL SCREENINGS The [facility] offers sequential screenings for women who [...] testing. It will require an appointment withour civil laboratory technician. This is not an ultrasound [...] the above symptoms, contact our office at [phone] and ask to speak with anurse. After hours, you can call doctors registry at [phone] OR call [facility] at [phone] ask to have the doctor environmental health officer paged. If you consider this an emergency, dial 9-1-2 or go to your nearest emergency department. NEED HELP? Are you dealing with a violent or abusive relationship? Are you a victim of rape or sexual assult? Call [facility] ([place]) 24 hour Crisis Hotline: 161.901.8354 or 979-750-5926. MANUAL Your Guide to a Healthy manual is now on-line. Visit [email or web address]/HealthyPregnancyGuide to download your free copy documented in this encounterLima Memorial Hospital03-12-2024 Instructions* Patient Instructions* Susi Pleitez, AGYATHRI - 05/25/2023 2:53 PM EDT Vitamin/minerals: Bariatric [...] (about 4oz per serving). Non-fish sources of [place] 3's include walnuts and walnut oil, ground flaxseed and flaxseed oil, hemp and forrest seeds, and soybean oil. Avoid fish high in mercury like shark, chayo mackerel, swordfish, tilefish, marlin, orange roughly, and bigeye tuna. -Be mindful of cravings: listen to your cravings, but practice moderation. If you crave non-food items like ice, cornstarch, or dirt, tell your concrete panel installer. This may be a sign of a [...] can help settle your stomach. BMI scheduling [phone] - schedule with bariatric medical of doctor or IMAGING TECHNICIAN documented in this encounterLima Memorial Hospital03-12-2024 History of Present illness Narrative* Susi [...] (about 4oz per serving). Non-fish sources of [place] 3's include walnuts and walnut oil, ground flaxseed and flaxseed oil, hemp and forrest seeds, and soybean oil. Avoid fish high in mercury like shark, chayo mackerel, swordfish, tilefish, marlin, orange roughly, and bigeye tuna. -Be mindful of cravings: listen to your cravings, but practice moderation. If you crave non-food items like ice, cornstarch, or dirt, tell your concrete panel installer. This may be a sign of a [...] can help settle your stomach. BMI scheduling [phone] - schedule with bariatric medical of doctor or IMAGING TECHNICIAN Nutrition Monitoring & Evaluation: nutrition to meet [...] be protein shakes, or part of a Bots[place]an yogurt (texture), couple cheese and cashewsor part [...] days/week) Walk a lot at work at [employer] Anthropometrics: Height: Last 1 Encounter Ht Readings: [...] units SIGNATURE: Susi Pleitez RD PATIENT NAME: Laina De León DATE: May 25, 2023 TIME: 1:47 PM documented in this encounterLima Memorial Hospital03-07-2024 Miscellaneous Notes* Telephone Encounter - Arabella Sanz, RN - 05/20/2023 11:35 AM EST 3rd risk assessment form submitted 05/20/23 Arabella Sanz RN documented in this encounterLima Memorial Hospital03-06-2024 Miscellaneous Notes* Quick Notes - Génesis Jules MD - 05/19/2023 8:30 AM EST [...] surprised but was on insulin previously. 2) office technology instructor/nutrition placed 3) will notify office if BS still elevated and will start on insulin 4) RTO 2 weeks 5) growth us scheduled 6) IV IRON scheduled Génesis Lopez MD documented in this encounterLima Memorial Hospital03-06-2024 Instructions* Patient Instructions* Erika Calderón MA - 05/19/2023 7:59 AM EST SEQUENTIAL SCREENINGS The [facility] offers sequential screenings for women who [...] testing. It will require an appointment withour civil laboratory technician. This is not an ultrasound [...] the above symptoms, contact our office at [phone] and ask to speak with anurse. After hours, you can call doctors registry at [phone] OR call [facility] at [phone] ask to have the doctor environmental health officer paged. If you consider this an emergency, dial 91-6 or go to your nearest emergency department. NEED HELP? Are you dealing with a violent or abusive relationship? Are you a victim of rape or sexual assult? Call [facility] ([place]) 24 hour Crisis Hotline: 106.122.3717 or 303-716-2366. MANUAL Your Guide to a Healthy manual is now on-line. Visit [email or web address]/HealthyPregnancyGuide to download your free copy documented in this encounterLima Memorial Hospital02-20-2024 History of Present illness Narrative* Luh [...] and evaluation for treatment. documented in this encounterLima Memorial Hospital02-19-2024 History of Past illness Narrative* Problem [...] of this encounter (statuses as of 06/21/2023) [facility] History of Past illness Narrative* Problem [...] of this encounter (statuses as of 06/25/2023) [facility] History of Past illness Narrative* Problem Noted Date Diagnosed Date Resolved Date 27 weeks gestation of 05/03/2023 06/21/2023 Morbid obesity with BMI of 40.0-44.9, adult 08/20/2022 10/16/2022 Obesity, Class III, BMI >= 40 08/04/2022 10/16/2022 COVID-19 virus infection 03/26/2021 Overview: 03/2021 Onychomycosis 11/29/2020 01/29/2023 Well adult exam 05/16/2020 10/16/2022 Overview: Last done: 05/16/20 Hx of gestational diabetes m maddieitus, not currently 05/16/2020 01/29/2023 Last Assessment & [...] of this encounter (statuses as of 06/25/2023) [facility] History of Past illness Narrative* Problem [...] of this encounter (statuses as of 06/29/2023) [facility] of Past illness Narrative* Problem [...] of this encounter (statuses as of 07/02/2023) [facility] of Past illness Narrative* Problem [...] of this encounter (statuses as of 07/02/2023) [facility] Miscellaneous Notes* Telephone Encounter - Inna Horne RN - 05/03/2023 9:17 AM EST Faxed * Telephone Encounter - Inna Horne RN - 04/30/2023 5:05 PM EST Received breast pump RX from [facility]. To DM to sign. Inna Horne RN documented in this encounterLima Memorial Hospital02-16-2024 Miscellaneous Notes* Telephone Encounter - Inna Horne RN - 04/30/2023 10:24 AM EST Patient notified. Inna Horne RN * Telephone Encounter - Génesis Jules MD - 04/30/2023 10:02 AM EST ordered * Telephone Encounter - Inna Horne RN - 04/30/2023 8:56 AM EST Blood Management referral pending. Please file. Inna Horne RN * Telephone Encounter - Inna Horne RN - 04/30/2023 8:53 AM EST ----- Message from Génesis Wang MD sent at 04/30/2023 8:02 AM EST ----- Recommend IV IRON please pend IV iron referral- blood mgmt referral. documented in this encounterLima Memorial Hospital02-15-2024 Miscellaneous Notes* Telephone Encounter - Klarissa Soto RN - 04/29/2023 1:22 PM EST Patient notified. Klarissa Soto RN * Telephone Encounter - Génesis Jules MD - 04/29/2023 11:57 AM EST If she has been taking daily then yes do the studies and then IV iron I would recommend it. * Telephone Encounter - Klarissa Soto RN - 04/29/2023 11:48 AM EST 27w2d Patient called in. She has already been taking ferrous sulfate 325mg daily throughout . Should she do iron labs now? Klarissa Soto RN * Telephone Encounter - Klarissa Soto RN - 04/29/2023 11:44 AM EST Génesis Wang MD 04/29/2023 7:53 AM EST Notify [...] to consider IV iron documented in this encounterLima Memorial Hospital02-14-2024 Miscellaneous Notes* Quick Notes - Génesis Jules MD - 04/28/2023 1:56 PM EST [...] 6) had rhogam 10 weeks ago at [facility]- will get next visit. Génesis Lopez MD documented in this encounterLima Memorial Hospital02-14-2024 History of Present illness Narrative* Erika Calderón Ma - 04/28/2023 1:42 PM EST Patient identified by name and date of . Laina De León presents today for a vaccination of Tdap. Patient denies an allergy to latex: yes Patient denies a severe (life-threatening) allergy to a previous dose of Tdap, DTP, DTaP, DT or Td vaccine. Yes Patient denies history of epilepsy or neurological problems: Yes Patient is afebrile and denies being moderately or severely ill: Yes Patient denies history of Guillain-Marianna Syndrome (a severe paralytic illness): Yes Tdap Adacel injection was given without incident. See immunizations for details of immunizations administered today. VIS sheet provided: Yes Provider Shania was present in office at time of injection. Erika Calderón Ma documented in this encounterLima Memorial Hospital02-14-2024 Instructions* Patient Instructions* Erika Calderón Ma - 04/28/2023 1:34 PM EST SEQUENTIAL SCREENINGS The [facility] offers sequential screenings for women who [...] testing. It will require an appointment withour civil laboratory technician. This is not an ultrasound [...] the above symptoms, contact our office at [phone] and ask to speak with anurse. After hours, you can call doctors registry at [phone] OR call [facility] at [phone] ask to have the doctor environmental health officer paged. If you consider this an emergency, dial 9-9 or go to your nearest emergency department. NEED HELP? Are you dealing with a violent or abusive relationship? Are you a victim of rape or sexual assult? Call [facility] ([place]) 24 hour Crisis Hotline: 490.172.9327 or 282-423-2025. MANUAL Your Guide to a Healthy manual is now on-line. Visit [email or web address]/HealthyPregnancyGuide to download your free copy documented in this encounterLima Memorial Hospital12-07-2023 Discharge summary Author Ru Oden [facility] February 19, 2023 12:09am Note Date/Time February 18, 2023 1 1:28pm [facility] Medical Records Department [address] [place] [address] Emergency Department Summary 02/18/23 MR#: [id number] Acct: [id number] Name: LAINA DE LEÓN Rep #:[id number] : 1995 27 From: Ru Oden MD [...] OB who is affiliated with [facility] who recommended she come to [...] RhoGAM protocol was initiated. Since heart tones [id number] and the os is closed with no blood noted ultrasound was not obtained. History & Record Review Additional record(s) reviewed:: Prior outpatient record (Outpatient ultrasound that revealed single live intrauterine .) and Prior labs Discharge Plan Triage Chief Complaint: Vag Bld, Preg ED Provider: AkshatRu Dx/Rx/DC Orders Clinical Impression: Vaginal bleeding before [...] 0RF Primary Care Provider: Natalie Blum Referrals: Gracie Navarro MD [Med Staff - Active Staff] - 3-5 Days Natalie Blum PA [Primary Care Provider] - Disposition Disposition: Home, Self Care What to do if you have Problems For any increased pain, shortness of breath, bleeding, nausea or vomiting, chestpain, or any unexpected problems, contact your Primary Care Provider. Call [facility] ([phone]) or report to the closest Emergency Room. Call 911 if necessary. 02/19/238 <Electronically signed by Ru Oden MD> Cosigner Signature (if applicable): CC: SHAYY Alejandro ~ Signed [facility] Work Phone: 1(639) 205-677211-17-2023 Miscellaneous Notes* Quick Notes - Yovani Mora MD - 01/29/2023 11:40 AM EST RR- VB No. LOF No. CTXS No. Movement: absent. Other c/o: No. Medication list reviewed. Physical Exam See Flow Sheet Abd: soft, nontender, gravid Ext: edema: no A/P 14w3d Estimated Date of Delivery: 07/27/23 Labs: declines aneuploidy screeing f/u in 4-5 weeks for anatomy US cont. PNV declines flu vaccine today Yovani Mora M.D. documented in this encounterLima Memorial Hospital11-17-2023 Instructions* Patient Instructions* Marly Hernadez Ma - 01/29/2023 10:56 AM EST SEQUENTIAL SCREENINGS The [facility] offers sequential screenings for women who [...] testing. It will require an appointment withour civil laboratory technician. This is not an ultrasound [...] the above symptoms, contact our office at [phone] and ask to speak with anurse. After hours, you can call doctors registry at [phone] OR call [facility] at [phone] ask to have the doctor environmental health officer paged. If you consider this an emergency, dial 9-1-5 or go to your nearest emergency department. NEED HELP? Are you dealing with a violent or abusive relationship? Are you a victim of rape or sexual assult? Call [facility] ([place]) 24 hour Crisis Hotline: 109.422.9696 or 730-903-6315. MANUAL Your Guide to a Healthy manual is now on-line. Visit [email or web address]/HealthyPregnancyGuide to download your free copy documented in this encounterLima Memorial Hospital10-24-2023 Miscellaneous Notes* Telephone Encounter - Raquel Brown RN - 01/05/2023 11:13 AM EDT 1st risk assessment form submitted 01/05/2023 11w today documented in this encounterLima Memorial Hospital10-20-2023 Instructions* Patient Instructions* Stephane Bear Erika - 01/01/2023 11:05 AM EDT Please select the following link to access the [facility] Your Guide to a Healthy . [email or web address] documented in this encounterLima Memorial Hospital10-20-2023 History of Present illness Narrative* Kayy Longo APRN.CNP - 01/01/2023 10:58 AM EDT INITIAL OB ASSESSMENT OB Provider: Kalpana Laguerre [...] use: No Multivitamin with Folic acid: Yes Sikhism or heritage: No Would refuse blood transfusion [...] Your guide to a health and the Winding Inspector. OB Community care order placed. Discussed aneuploidy [...] plan for allergy testing. Reviewed midwifery and ocean freight forwarder services that are available. 2) History of diabetes: Given previous gestational diabetes or LGA baby, ordered early glucose screen or Hemoglobin A1C Follow up in 4 weeks or sooner prn. @8 weeks external US done that show a small sub-chorionic hemorrhage, pt had had no bleeding. Also showed a small cyst on umbilical cord Kayy Longo APRN.CNP documented in this encounterLima Memorial Hospital10-05-2023 History of Present illness Narrative* Steffanie [...] other symptoms associated with it. Did call [facility] COLLECTOR DRIVER office they agree ER is best place for patient. Patient is being sent right now. Patient is going to take her self. documented in this encounterLima Memorial Hospital09-21-2023 History of Present illness Narrative* Kimi Sherwood RDMS - 12/03/2022 10:00 AM EDT Radiology Service Progress Note PATIENT NAME: Laina [...] 03, 2022 11:24 AM documented in this encounterLima Memorial Hospital09-19-2023 History of Present illness Narrative* Yovani Mora MD - 12/01/2022 3:10 PM EDT patient needs new order for early ob US in radiology. Yovani Mora MD documented in this encounterLima Memorial Hospital09-08-2023 Miscellaneous Notes* Telephone Encounter - Klarissa Soto RN - 11/20/2022 3:18 PM EDT Patient notified and NOB scheduled. Klarissa Soto RN * Telephone Encounter - Leonela Carreon LPN - 11/20/2022 1:10 PM EDT Message and mychart message left asking pt to call the office for results. Leonela Carreon LPN * Telephone Encounter - Gracie Navarro MD - 11/20/2022 12:24 PM EDT Hcg quants increasing well. OK to scheduled PNC. Gracie Navarro MD * Telephone Encounter - Inna Horne RN - 11/20/2022 8:02 AM EDT 2nd HCG quant from [facility] is 109 * Telephone Encounter - Inna Horne RN - 11/19/2022 2:39 PM EDT Order faxed to [facility] lab. Please leave phone note open for result. Patient will still need initial visits scheduled. Inna Horne RN * Telephone Encounter - Inna Horne RN - 11/19/2022 1:13 PM EDT Spoke with patient. She's agreeable to go later today. Lab order on 's desk. Inna Horne RN * Telephone Encounter - Sandra Edwards MD - 11/19/2022 1:05 PM EDT Yes repeat HCG today if possible * Telephone Encounter - Inna Horne RN - 11/19/2022 12:36 PM EDT [facility] lab called. Patient was seen at [facility] ER on 11/17 to rule out ectopic and torsion. Her HCG was 46. Lab called because the wrong order was placed by ER physician. A urine HCG was done today. No blood work. Patient was to have a repeat HCG today. Would you like us to contact patient and see if she can go back to [facility] lab and have HCG level done? ER report in mailbox. Inna Horne RN documented in this encounterLima Memorial Hospital09-05-2023 Discharge summary Author Ru Oden [facility] November 17, 2022 3:16pm Note Date/Time November 17, 2022 10:59am [facility] Medical Records Department [address] [place] [address] Emergency Department Summary 11/17/22 MR#: [id number] Acct: [id number] Name: LAINA DE LEÓN Rep #:[id number] : 1995 27 From: Ru Oden MD [...] abdominal pain. She was sent to the [facility] ore sampler. She denies orthostatic symptoms. She does report [...] obtained as well as transvaginal ultrasound. The pharmacy laboratory technician was contacted personally by me to [...] Clarity Cloudy Urine pH 5.0 Ur Specific [place] 1.025 Urine Protein 30 H Urine Glucose [...] EDT , Management Discussion w/another healthcare provider: Clearing House Clerk (Dr. Navarro who is on-call for [facility] was paged. Patient is seen through [facility] clinic) Treatment and Re-Evaluation Narrative: Plan is [...] Primary Care Provider: Care Physician,No Primary Referrals: Gracie Navarro MD [Med Staff - Active Staff] [...] your Primary Care Provider. Call Doctors Registry ([phone]) or report to the closest Emergency Room. Call 911 if necessary. 11/17/22 1516 <Electronically signed by Ru Oden MD> Cosigner Signature (if applicable): CC: No Primary Care Physician ~ Signed [facility] Work Phone: 1(190) 120-842609-05-2023 Miscellaneous Notes* Telephone Encounter - Gracie Navarro MD - 11/17/2022 11:21 AM EDT Noted Gracie Navarro MD * Telephone Encounter - Inna [...] returns. Inna Horne RN documented in this encounterLima Memorial Hospital08-24-2023 Miscellaneous Notes* Telephone Encounter - Leonela [...] weeks. Kayy Longo APRN.CNP documented in this encounterLima Memorial Hospital08-23-2023 History of Present illness Narrative* Kathleen Espinoza RDMS - 11/04/2022 1:45 PM EDT Radiology Service Progress Note PATIENT NAME: Laina [...] 04, 2022 2:59 PM documented in this encounterLima [facility] Hospital08-21-2023 History of Present illness Narrative* Sterling Martinez RT(Jerilyn) - 11/02/2022 3:00 PM EDT Radiology Service Progress Note PATIENT NAME: Laina [...] 02, 2022 2:59 PM documented in this encounterLima [facility] Hospital08-21-2023 Instructions* Patient Instructions* Keith Arriaga APRN.CNP [...] use sun protection SPF. documented in this encounterLima Memorial Hospital08-21-2023 History of Present illness Narrative* Keith Arriaga APRN.CNP - 11/02/2022 12:24 PM EDT This note was created using LearnSprout. Subjective Laina De León is a 27 [...] tenderness or frontal sinus tenderness. Mouth/Throat: Lips: [place]. Pharynx: Oropharynx is clear. Uvula midline. Posterior [...] if symptoms persist or worsen Keith Arriaga APRN.FLORECITA documented in this encounterLima Memorial Hospital08-04-2023 History of Present illness Narrative* Kayy Longo APRN.CNP - 10/16/2022 12:50 PM EDT Assistant Dean Of Students offered: Patient declines. Laina is a 27 [...] L2 SAB0 IAB0 Ectopic0 Multiple0 Live Births2 Tax Consultant History LMP: 09/29/2022 (Exact Date), Having periods Age at Menarche: Age at First : Age at Menopause: Tax Consultant History Comments: Sexual Activity: Yes; Male Contraception: [...] external genitalia normal, normal Bartholin's glands, urethra, [place]'s glands, no vulvar lesions, no cervical lesions, [...] ordered Kayy Longo APRN.FLORECITA documented in this encounterLima [facility] Hospital07-18-2023 NoteHNO ID: [id number] Author: RT Willam(R) Service: Radiology Author Type: [...] BY: RT Willam(R) September 29, 2022 10:34 [facility]07-17-2023 History of Present illness Narrative* Jeffery Tinajero RD - 09/28/2022 4:05 PM EDT Patient was scheduled for a nutrition appointment today. The patient did not check into their scheduled appointment. I sent the patient a AlwaySupport message encouraging them to reschedule their appointment by calling [phone]. documented in this encounterLima Memorial Hospital07-07-2023 History of Present illness Narrative* Brenda Yost MD - 09/18/2022 11:09 AM EDT Metabolic Surgery Postoperative Virtual Clinic Visit Name: Laina De León This visit was performed virtually via ZoKongregate technology due to the COVID-19 epidemic as [...] Morbid obesity with BMI of 40.0-44.9, adult ([facility]) Obesity, Class III, BMI >= 40 COVID-19 virus infection Onychomycosis Well adult exam Hx of gestational diabetes mellitus, not currently Morbid obesity (HCC) History of gestational hypertension 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[facility]) Resolved Hospital Problems No resolved problems to [...] Laparoscopic & Bariatric Surgery Bariatric & Metabolic [place] [facility] documented in this encounterLima [facility] Hospital06-23-2023 History of Present illness Narrative* Brenda Yost MD - 09/04/2022 8:53 AM EDT Metabolic Surgery Postoperative Virtual Clinic Visit Name: Laina De León This visit was performed virtually via Next Heathcareom technology due to the COVID-19 epidemic as [...] of gestational hypertension 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[facility]) Resolved Hospital Problems No resolved problems to [...] Laparoscopic & Bariatric Surgery Bariatric & Metabolic [place] [facility] documented in this encounterLima Memorial Hospital06-19-2023 Miscellaneous Notes* Telephone Encounter - Sakshi [...] appt. Reminded patient of how to reach [facility] or their surgeons office. Patient reminded to seek medical attention if they develop chest pain, a sudden onset of shortness of breath or persistent pain in the calf of their legs - BEST TO ALWAYS present to [facility] hospital where you had your surgery Patient verbalized understanding of all advice and instructions given. COVID-19 Symptoms: none . Sakshi Porter RN documented in this encounterLima Memorial Hospital06-16-2023 Miscellaneous Notes* Telephone Encounter - Sakshi Porter RN - 08/28/2022 9:08 AM EDT BMI SPECIALTY CARE COORDINATION TELEPHONE ENCOUNTER KVM with call back number to check on pt documented in this encounterCleveland [id number] Calvo [facility] August 28, 2022 3:58am Note Date/Time August 27, 2022 11:[address] [facility] Medical Records Department [address] [place] [address] Emergency Department Summary 08/27/22 MR#: [id number] Acct: [id number] Name: LAINA DE LEÓN Rep #:[id number] : 1995 27 From: Davion Calvo DO PCP: Care Physician,No Primary Status :DEP ER Location: ED HPI HPI - GI History of Present Illness Chief Complaint: Nausea/Vomiting Narrative Narrative: 27-year-old female presenting with nausea, vomiting. She states this started after surgery. Apparently she had gastric bypass 5 days ago at [facility] by Dr. Steel. She states it [...] or the on-call surgeon for [facility] and I did not receive [...] % (Auto) 57.5 Lymph % (Auto) 29.9 [place] % (Auto) 9.6 Eos % (Auto) 2.0 [...] Clarity Clear Urine pH 5.0 Ur Specific [place] 1.030 Urine Protein 30 H Urine Glucose [...] your Primary Care Provider. Call [facility] ([phone]) or report to the closest Emergency Room. Call 911 if necessary. 08/28/22 0358 <Electronically signed by Davion Calvo DO> Cosigner Signature (if applicable): CC: No Primary Care Physician ~ Signed [facility] Work Phone: [phone]) 954-881106-14-2023 Miscellaneous Notes* Telephone Encounter - Sakshi Porter [...] and get back toher. documented in this encounterLima Memorial Hospital06-08-2023 History of Past illness Narrative* Problem [...] weekly. Kick counts. PTL precuations. F/u weekly. Yovani Mora MD Short interval between pregn ancies [...] of this encounter (statuses as of 10/16/2022) [facility] of Past illness Narrative* Problem [...] weekly. Kick counts. PTL precuations. F/u weekly. Yovani Mora MD Short interval between pregn ancies [...] of this encounter (statuses as of 11/02/2022) [facility] of Past illness Narrative* Problem [...] weekly. Kick counts. PTL precuations. F/u weekly. Yovani Mora MD Short interval between pregn ancies [...] of this encounter (statuses as of 11/03/2022) [facility] of Past illness Narrative* Problem [...] weekly. Kick counts. PTL precuations. F/u weekly. Yovani Mora MD Short interval between pregn ancies [...] of this encounter (statuses as of 11/06/2022) [facility] of Past illness Narrative* Problem [...] weekly. Kick counts. PTL precuations. F/u weekly. Yovani Mora MD Short interval between pregn ancies [...] of this encounter (statuses as of 11/17/2022) [facility] of Past illness Narrative* Problem [...] weekly. Kick counts. PTL precuations. F/u weekly. Yovani Mora MD Short interval between pregn ancies [...] of this encounter (statuses as of 11/20/2022) [facility] of Past illness Narrative* Problem [...] weekly. Kick counts. PTL precuations. F/u weekly. Yovani Mora MD Short interval between pregn ancies [...] of this encounter (statuses as of 12/02/2022) [facility] of Past illness Narrative* Problem [...] weekly. Kick counts. PTL precuations. F/u weekly. Yovani Mora MD Short interval between pregn ancies [...] of this encounter (statuses as of 12/18/2022) [facility] of Past illness Narrative* Problem [...] weekly. Kick counts. PTL precuations. F/u weekly. Yovani Mora MD Short interval between pregn ancies [...] of this encounter (statuses as of 01/01/2023) [facility] of Past illness Narrative* Problem [...] weekly. Kick counts. PTL precuations. F/u weekly. Yovani Mora MD Short interval between pregn ancies [...] of this encounter (statuses as of 01/05/2023) [facility] of Past illness Narrative* Problem [...] weekly. Kick counts. PTL precuations. F/u weekly. Yovani Mora MD Short interval between pregn ancies [...] of this encounter (statuses as of 01/17/2023) [facility] of Past illness Narrative* Problem [...] weekly. Kick counts. PTL precuations. F/u weekly. Yovani Mora MD Short interval between pregn ancies [...] of this encounter (statuses as of 01/29/2023) [facility] of Past illness Narrative* Problem [...] weekly. Kick counts. PTL precuations. F/u weekly. Yovani Mora MD Short interval between pregn ancies [...] of this encounter (statuses as of 02/02/2023) [facility] of Past illness Narrative* Problem [...] weekly. Kick counts. PTL precuations. F/u weekly. Yovani Mora MD Short interval between pregn ancies [...] of this encounter (statuses as of 04/28/2023) [facility] of Past illness Narrative* Problem [...] weekly. Kick counts. PTL precuations. F/u weekly. Yovani Mora MD Short interval between pregn ancies [...] of this encounter (statuses as of 04/29/2023) [facility] of [facility] Narrative* Problem [...] weekly. Kick counts. PTL precuations. F/u weekly. Yovani Mora MD Short interval between pregn ancies [...] of this encounter (statuses as of 04/30/2023) [facility] of Past illness Narrative* Problem [...] weekly. Kick counts. PTL precuations. F/u weekly. Yovani Mora MD Short interval between pregn ancies [...] of this encounter (statuses as of 05/03/2023) [facility] of Past illness Narrative* Problem [...] weekly. Kick counts. PTL precuations. F/u weekly. Yovani Mora MD Short interval between pregn ancies [...] of this encounter (statuses as of 05/04/2023) [facility] of Past illness Narrative* Problem [...] weekly. Kick counts. PTL precuations. F/u weekly. Yovani Mora MD Short interval between pregn ancies [...] of this encounter (statuses as of 05/19/2023) [facility] of Past illness Narrative* Problem [...] weekly. Kick counts. PTL precuations. F/u weekly. Yovani Mora MD Short interval between pregn ancies [...] of this encounter (statuses as of 05/20/2023) [facility] of Past illness Narrative* Problem [...] weekly. Kick counts. PTL precuations. F/u weekly. Yovani Mora MD Short interval between pregn ancies [...] of this encounter (statuses as of 05/24/2023) [facility] of Past illness Narrative* Problem [...] weekly. Kick counts. PTL precuations. F/u weekly. Yovani Mora MD Short interval between pregn ancies [...] of this encounter (statuses as of 05/26/2023) [facility] of Past illness Narrative* Problem [...] of this encounter (statuses as of 05/27/2023) [place] [address]-08-2023 History of Past illness Narrative* Problem Noted [...] of this encounter (statuses as of 05/27/2023) [facility] Narrative* Problem [...] of this encounter (statuses as of 05/27/2023) [facility] Narrative* Problem [...] of this encounter (statuses as of 05/27/2023) [facility] Past [facility] Narrative* Problem [...] 08/15/2019 Overview: 06/19/19-Declines aneuploidy screening. Kimi Smith APRN.CN 03/16/2019. Patient desires nuchal ultrasound and genetic carrier screening testing. TKRN Mononucleosis 05/17/2013 06/21/2018 Tendonitis, Achilles, left 01/10/2013 0 06/21/2018 Lumbago 07/07/2011 06/21/2018 Spondylolysis of lumbar region 06/25/2011 10/31/2019 documented as of this encounter (statuses as of 05/27/2023) [facility] Narrative* Problem [...] of this encounter (statuses as of 05/31/2023) [facility] Narrative* Problem [...] of this encounter (statuses as of 06/01/2023) [facility] Narrative* Problem [...] of this encounter (statuses as of 06/01/2023) [facility] Narrative* Problem [...] of this encounter (statuses as of 06/02/2023) [facility] Narrative* Problem [...] of this encounter (statuses as of 06/02/2023) [facility] Narrative* Problem [...] testing 12/30/2017 08/15/2019 Overview: 06/19/19-Declines aneuploidy screening. iKmi Smith APRN.CNM 03/16/2019. Patient desires nuchal ultrasound and genetic carrier screening testing. TKRN Mononucleosis 05/17/2013 06/21/2018 Tendonitis, Achilles, left 01/10/2013 0 06/21/2018 Lumbago 07/07/2011 06/21/2018 Spondylolysis of lumbar region 06/25/2011 10/31/2019 documented as of this encounter (statuses as of 06/03/2023) [facility] Past [facility] Narrative* Problem Noted Date Diagnosed Date Resolved Date Morbid obesity with BMI of 40.0-44.9, adult 08/20/2022 10/16/2022 Obesity, Class III, BMI >= 40 08/04/2022 10/16/2022 COVID-19 virus infection 03/26/2021 Overview: 03/2021 Onychomycosis 11/29/2020 01/29/2023 Well adult exam 05/16/2020 10/16/2022 Overview: Last done: 05/16/20 Hx of gestational diabetes m maddieitus, not currently 05/16/2020 01/29/2023 Last Assessment & [...] of this encounter (statuses as of 06/07/2023) [facility] of Past illness Narrative* Problem [...] of this encounter (statuses as of 06/15/2023) [facility] of Past illness Narrative* Problem [...] of this encounter (statuses as of 06/18/2023) [facility] Instructions* Patient Instructions* Kalpana Krueger, GAYATHRI - 08/11/2022 1:12 PM EDT Nutrition [...] fish, low fat dairy - cottage cheese, Botswanan yogurt, light yogurt, cheese, ricotta cheese, nuts, [...] - Celebrate: multiple options- look on website Www.IntolooprateValidic.[employer] - Procare Health: 1 Multivitamin and Calcium Citrate twice a day (total of 1200- 1500 mg/day) * take calcium citrate separately from Multivitamin with iron at least 2 hours apart and 4 hours apart from additional calcium www.Mieple.[employer] - Bariatric Choice: 4 complete multivitamins (chewable) per day Www.bariatricchoice.[employer] - Bariatric Advantage: 2 Multivitamins and 3 Calcium Citrate Chewable per day * take calcium citrate separately from Multivitamin with iron at least 2 hours apart and 4 hours apart from additional calcium www.bariatricadvantage.[employer] B complex with at least 75 mg [...] 2 weeks post op documented in this encounterLima Memorial Hospital05-30-2023 History of Present illness Narrative* Kalpana Krueger RD - 08/11/2022 12:45 PM EDT [...] visit. Either the patient or their legal human resources hr representative has been informed of the risks [...] fish, low fat dairy - cottage cheese, Botswanan yogurt, light yogurt, cheese, ricotta cheese, nuts, peanut butter, beans/legumes. Eat protein first at all meals. 5. Vitamins : Begin looking into Vitamins and Minerals (page 49 of your Bariatric Guide to Surgery Book) - OK to use a bariatric multivitamin: - Bariatric Fusion: multiple options- look on website www.bariatricfusion.com - Celebrate: multiple options- look on website Www.Intoloopratevitamins.com - Procare Health: 1 Multivitamin and Calcium Citrate twice a day (total of 1200- 1500 mg/day) * take calcium citrate separately from Multivitamin with iron at least 2 hours apart and 4 hours apart from additional calcium www.Mieple.[employer] - Bariatric Choice: 4 complete multivitamins (chewables) per day www.bariatricchoice.[employer] - Bariatric Advantage: 2 Multivitamins and 3 Calcium Citrate Chewables per day * take calcium citrate separately from Multivitamin with iron at least 2 hours apart and 4 hours apart from additional calcium www.bariatricadvantage.[employer] - Barimelts Www.Spaciety ([employer]) - Bariatric Pal www.bariatricpal.com B complex with [...] fish, low fat dairy - cottage cheese, Botswanan yogurt, light yogurt, cheese, ricotta cheese, nuts, [...] - Celebrate: multiple options- look on website Www.GOQiiebratevitamins.[employer] - Procare Health: 1 Multivitamin and Calcium Citrate twice a day (total of 1200- 1500 mg/day) * take calcium citrate separately from Multivitamin with iron at least 2 hours apart and 4 hours apart from additional calcium www.AFreeze - Bariatric Choice: 4 complete multivitamins (chewable) per day Www.bariatricchoBOXX Technologies.[employer] - Bariatric Advantage: 2 Multivitamins and 3 Calcium Citrate Chewable per day * take calcium citrate separately from Multivitamin with iron at least 2 hours apart and 4 hours apart from additional calcium www.bariatricadDynasilage.[employer] B complex with at least 75 mg [...] 25 minutes - Group Signed by: Kalpana Krueger RDN, SEBAS, MARVA documented in this encounterLima Memorial Hospital05-30-2023 Miscellaneous Notes* Telephone Encounter - Sakshi Porter RN - 08/11/2022 11:44 AM EDT BMI SPECIALTY CARE COORDINATION TELEPHONE ENCOUNTER Dr Yost spoke with pt and gave her alternative ideas. I will check up on her in a couple days to see how she is tolerating the diet. documented in this encounterLima Memorial Hospital05-30-2023 Miscellaneous Notes* Telephone Encounter - Sakshi [...] then she called nursing. documented in this encounterLima Memorial Hospital05-30-2023 Miscellaneous Notes* Telephone Encounter - Priya Kaminski RN - 08/11/2022 9:44 AM EDT Please see pt Priya Kaminski RN August 11, 2022 9:44 AM * Telephone Encounter - Patsy Polk - 08/11/2022 9:37 AM EDT Laina De León is calling Hannah Rogers RD today with concern regarding request to speak to a nurse. She states that she has not been able to keep anything down. Going on day 6 today. No chief complaint on file. Patient has been identified by name and birthdate. Duration of symptoms: 6 days Person calling: self Call patient at: on cell [phone] (home) [phone] (cell) Was an appointment scheduled: Yes: Date/Time: today Closing statement: Symptom Call: Thank you for [facility], your call is very important. A nurse will call in approximately 2-4 hours during business hours. If this is an emergency, please contact 911. Patsy Pride documented in this encounterLima Memorial Hospital03-21-2023 History of Present illness Narrative* Lila Tobar LPN - 06/02/2022 9:09 AM EDT Patient presents for EKG per Cristy Platt CNP. Denies any problems at this time. Tolerated procedure well. 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 Snoring : [...] which included preparing to see the patient, [id number]-ie-ldip patient care, completing clinical documentation, obtaining and/or reviewing separately obtained history, performing a medically appropriate examination, counseling and educating the pat ient/family/caregiver, ordering medications, tests, or procedures, and independently interpreting results (not separately reported). Cristy Platt APRN.CNP documented in this encounterLima Memorial Hospital07-22-2022 History of Present illness Narrative* Brenda [...] maybe 8-10 miles a day (works for [employer]), feels that she doesn't lose weight even [...] bmp, lfts, hga1c Notes reviewed: joe longo, jayson quintero The following labs were reviewed: WBC (k/uL) [...] Level: 5 - High documented in this encounterLima Memorial Hospital06-10-2022 History of Present illness Narrative* Kayy Longo APRN.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 - 08/22/2021 2:38 PM EDT Laina is [...] L2 SAB0 IAB0 Ectopic0 Multiple0 Live Births2 Tax Consultant History LMP: 07/22/2021 (Exact Date), Having periods Age at Menarche: Age at First : Age at Menopause: Tax Consultant History Comments: Sexual Activity: Yes; Male Contraception: [...] external genitalia normal, normal Bartholin's glands, urethra, [place]'s glands, no vulvar lesions, no cervical lesions, [...] year or sooner as needed Kayy Longo APRN.FLORECITA documented in this encounterLima Memorial Hospital06-06-2022 Miscellaneous Notes* Telephone Encounter - Kelly Can APRN.CNP - 08/18/2021 3:37 PM EDT Prescription sent for generic equivalent. The following approved medication requests have been transmitted electronically. Signed Prescriptions Disp Refills naltrexone-bupropion (CONTRAVE) 8-90 mg ER tablet 60 tablet 0 Sig: Take 1 tablet by mouth twice daily. Authorizing Provider: KELLY CAN APRN.CNP documented in this encounterLima Memorial Hospital06-06-2022 Miscellaneous Notes* Telephone Encounter - Kelly [...] your call and can be reached at [phone] after 12 pm today. Marla Valentine LPN documented in this encounterLima Memorial Hospital05-10-2022 Instructions* Patient Instructions* Kimi Jeffrey APRN.CNP [...] No follow-ups on file. documented in this encounterLima Memorial Hospital05-10-2022 History of Present illness Narrative* Kimi Jeffrey APRN.FLORECITA - 07/22/2021 11:07 AM EDT This note was created using LearnSprout. Subjective Laina De León is a 26 [...] like she is getting worse. 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 States 21 month old recently ill, attends daycare. States that he is feeling better. States similarsymptoms. States she took Immodium and tylenol. The history is provided by the patient. No language tutor was used. Illness The current episode started [...] ONDANSETRON 4 MG DISINTEGRATING TABLET Kimi Jeffrey APRN.CNP documented in this encounterLima Memorial Hospital09-20-2021 NoteHNO ID: [id number] Author: Bekah Momin DPM Service: Podiatry Author [...] Urine NEG 09/10/2015 Nitrites NEG 09/10/2015 Specific [place], Ur >=1.030 08/30/2018 Protein, Urine trace 10/16/2019 [...] DATE: December 02, 2020 TIME: 1:58 PM [email or web address] History of Present illness Narrative* Kayla Tobar Tech (Tech) - 01/12/2020 8:10 AM EDT Radiology Service Progress Note PATIENT NAME: Laina De León DATE OF SERVICE: January 12, [...] 12, 2020 8:12 AM documented in this encounterLima Memorial Hospital04-16-2020 History of Past illness Narrative* Problem Noted Date Resolved Date Acute upper respiratory infection 06/29/2019 10/31/2019 Overview: 06/29/2019 Pt being tested for COVID19 - results pending. SW Polyhydramnios in third trimester 07/05/2018 08/05/2018 Overview: July 05, 2018 D/w her risks. NSTs weekly. Kick counts. PTL precuations. F/u weekly. Yovani Mora MD Short interval between pregn ancies [...] of this encounter (statuses as of 07/22/2021) [facility] History of Past illness Narrative* Problem Noted Date Resolved Date Acute upper respiratory infection 06/29/2019 10/31/2019 Overview: 06/29/2019 Pt being tested for COVID19 - results pending. SW Polyhydramnios in third trimester 07/05/2018 08/05/2018 Overview: July 05, 2018 D/w her risks. NSTs weekly. Kick counts. PTL precuations. F/u weekly. Yovani Mora MD Short interval between pregn ancies [...] of this encounter (statuses as of 08/18/2021) [facility] of Past illness Narrative* Problem Noted Date Resolved Date Acute upper respiratory infection 06/29/2019 10/31/2019 Overview: 06/29/2019 Pt being tested for COVID19 - results pending. SW Polyhydramnios in third trimester 07/05/2018 08/05/2018 Overview: July 05, 2018 D/w her risks. NSTs weekly. Kick counts. PTL precuations. F/u weekly. Yovani Mora MD Short interval between pregn ancies [...] of this encounter (statuses as of 08/18/2021) [facility] of Past illness Narrative* Problem Noted Date Resolved Date Acute upper respiratory infection 06/29/2019 10/31/2019 Overview: 06/29/2019 Pt being tested for COVID19 - results pending. SW Polyhydramnios in third trimester 07/05/2018 08/05/2018 Overview: July 05, 2018 D/w her risks. NSTs weekly. Kick counts. PTL precuations. F/u weekly. Yovani Mora MD Short interval between pregn ancies [...] of this encounter (statuses as of 08/19/2021) [facility] History of Past illness Narrative* Problem Noted Date Resolved Date Acute upper respiratory infection 06/29/2019 10/31/2019 Overview: 06/29/2019 Pt being tested for COVID19 - results pending. SW Polyhydramnios in third trimester 07/05/2018 08/05/2018 Overview: July 05, 2018 D/w her risks. NSTs weekly. Kick counts. PTL precuations. F/u weekly. Yovani Mora MD Short interval between pregn ancies [...] of this encounter (statuses as of 08/22/2021) [facility] History of Past illness Narrative* Problem Noted Date Resolved Date Acute upper respiratory infection 06/29/2019 10/31/2019 Overview: 06/29/2019 Pt being tested for COVID19 - results pending. SW Polyhydramnios in third trimester 07/05/2018 08/05/2018 Overview: July 05, 2018 D/w her risks. NSTs weekly. Kick counts. PTL precuations. F/u weekly. Yovani Mora MD Short interval between pregn ancies [...] of this encounter (statuses as of 10/03/2021) [facility] History of Past illness Narrative* Problem Noted Date Resolved Date Acute upper respiratory infection 06/29/2019 10/31/2019 Overview: 06/29/2019 Pt being tested for COVID19 - results pending. SW Polyhydramnios in third trimester 07/05/2018 08/05/2018 Overview: July 05, 2018 D/w her risks. NSTs weekly. Kick counts. PTL precuations. F/u weekly. Yovani Mora MD Short interval between pregn ancies [...] of this encounter (statuses as of 05/28/2022) [facility] History of Past illness Narrative* Problem Noted Date Resolved Date Acute upper respiratory infection 06/29/2019 10/31/2019 Overview: 06/29/2019 Pt being tested for COVID19 - results pending. SW Polyhydramnios in third trimester 07/05/2018 08/05/2018 Overview: July 05, 2018 D/w her risks. NSTs weekly. Kick counts. PTL precuations. F/u weekly. Yovani Mora MD Short interval between pregn ancies [...] of this encounter (statuses as of 06/02/2022) [facility] History of Past illness Narrative* Problem Noted Date Resolved Date Acute upper respiratory infection 06/29/2019 10/31/2019 Overview: 06/29/2019 Pt being tested for COVID19 - results pending. SW Polyhydramnios in third trimester 07/05/2018 08/05/2018 Overview: July 05, 2018 D/w her risks. NSTs weekly. Kick counts. PTL precuations. F/u weekly. Yovani Mora MD Short interval between pregn ancies [...] of this encounter (statuses as of 07/03/2022) [facility] History of Past illness Narrative* Problem Noted Date Resolved Date Acute upper respiratory infection 06/29/2019 10/31/2019 Overview: 06/29/2019 Pt being tested for COVID19 - results pending. SW Polyhydramnios in third trimester 07/05/2018 08/05/2018 Overview: July 05, 2018 D/w her risks. NSTs weekly. Kick counts. PTL precuations. F/u weekly. Yovani Mora MD Short interval between pregn ancies [...] of this encounter (statuses as of 08/11/2022) [facility] History of Past illness Narrative* Problem Noted Date Resolved Date Acute upper respiratory infection 06/29/2019 10/31/2019 Overview: 06/29/2019 Pt being tested for COVID19 - results pending. SW Polyhydramnios in third trimester 07/05/2018 08/05/2018 Overview: July 05, 2018 D/w her risks. NSTs weekly. Kick counts. PTL precuations. F/u weekly. Yovani Mora MD Short interval between pregn ancies [...] of this encounter (statuses as of 08/11/2022) [facility] History of Past illness Narrative* Problem Noted Date Resolved Date Acute upper respiratory infection 06/29/2019 10/31/2019 Overview: 06/29/2019 Pt being tested for COVID19 - results pending. SW Polyhydramnios in third trimester 07/05/2018 08/05/2018 Overview: July 05, 2018 D/w her risks. NSTs weekly. Kick counts. PTL precuations. F/u weekly. Yovani Mora MD Short interval between pregn ancies [...] of this encounter (statuses as of 08/26/2022) [facility] History of Past illness Narrative* Problem Noted Date Resolved Date Acute upper respiratory infection 06/29/2019 10/31/2019 Overview: 06/29/2019 Pt being tested for COVID19 - results pending. SW Polyhydramnios in third trimester 07/05/2018 08/05/2018 Overview: July 05, 2018 D/w her risks. NSTs weekly. Kick counts. PTL precuations. F/u weekly. Yovani Mora MD Short interval between pregn ancies [...] of this encounter (statuses as of 08/28/2022) [facility] History of Past illness Narrative* Problem Noted Date Resolved Date Acute upper respiratory infection 06/29/2019 10/31/2019 Overview: 06/29/2019 Pt being tested for COVID19 - results pending. SW Polyhydramnios in third trimester 07/05/2018 08/05/2018 Overview: July 05, 2018 D/w her risks. NSTs weekly. Kick counts. PTL precuations. F/u weekly. Yovani Mora MD Short interval between pregn ancies [...] of this encounter (statuses as of 08/28/2022) [facility] History of Past illness Narrative* Problem Noted Date Resolved Date Acute upper respiratory infection 06/29/2019 10/31/2019 Overview: 06/29/2019 Pt being tested for COVID19 - results pending. SW Polyhydramnios in third trimester 07/05/2018 08/05/2018 Overview: July 05, 2018 D/w her risks. NSTs weekly. Kick counts. PTL precuations. F/u weekly. Yovani Mora MD Short interval between pregn ancies [...] of this encounter (statuses as of 08/31/2022) [facility] History of Past illness Narrative* Problem Noted Date Resolved Date Acute upper respiratory infection 06/29/2019 10/31/2019 Overview: 06/29/2019 Pt being tested for COVID19 - results pending. SW Polyhydramnios in third trimester 07/05/2018 08/05/2018 Overview: July 05, 2018 D/w her risks. NSTs weekly. Kick counts. PTL precuations. F/u weekly. Yovani Mora MD Short interval between pregn ancies [...] of this encounter (statuses as of 09/04/2022) [facility] History of Past illness Narrative* Problem Noted Date Resolved Date Acute upper respiratory infection 06/29/2019 10/31/2019 Overview: 06/29/2019 Pt being tested for COVID19 - results pending. SW Polyhydramnios in third trimester 07/05/2018 08/05/2018 Overview: July 05, 2018 D/w her risks. NSTs weekly. Kick counts. PTL precuations. F/u weekly. Yovani Mora MD Short interval between pregn ancies [...] of this encounter (statuses as of 09/18/2022) [facility] History of Past illness Narrative* Problem Noted Date Diagnosed Date Resolved Date Acute upper respiratory infection 06/29/2019 10/31/2019 Overview: 06/29/2019 Pt being tested for COVID19 - results pending. SW Polyhydramnios in third trimester 07/05/2018 08/05/2018 Overview: July 05, 2018 D/w her risks. NSTs weekly. Kick counts. PTL precuations. F/u weekly. Yovani Mora MD Short interval between pregn ancies [...] of this encounter (statuses as of 09/29/2022) [facility] Diagnosis Viral illness- Primary Unspecified viral infection, in conditions classified elsewhere and of unspecified site Nausea and vomiting, unspecified vomiting type [facility] Diagnosis Obesity, Class III, BMI 40-49.9 (morbid obesity) (HCC)- Primary Morbid obesity [facility] Diagnosis Obesity, Class III, BMI 40-49.9 (morbid obesity) ([facility]) Morbid obesity [facility] Diagnosis Encounter for gynecological examination (general) (routine) without abnormal findings- Primary Screening for cervical cancer Screening for malignant neoplasm of the cervix Encounter for screening for human papillomavirus (HPV) Special screening examination for human papillomavirus (HPV) Encounter for surveillance of vaginal ring hormonal contraceptive device [facility] Diagnosis Body mass index 40.0-44.9, adult (HCC)- Primary Body Mass Index 40.0-44.9, adult documented in this encounter [facility] note* Diagnosis Body mass index 40.0-44.9, adult (HCC)- Primary Body Mass Index 40.0-44.9, adult documented in this encounter [facility] note* Diagnosis Body mass index 40.0-44.9, adult (HCC) Body Mass Index 40.0-44.9, adult documented in this encounter [facility] note* Diagnosis Morbid obesity (HCC)- Primary Morbid obesity Preoperative examination Preoperative examination, unspecified documented in this encounter [facility] note* Diagnosis BMI 40.0-44.9, adult (HCC)- Primary Body Mass Index 40.0-44.9, adult Dietary counseling Dietary surveillance and counseling Morbid obesity (HCC) Morbid obesity Preoperative examination Preoperative examination, unspecified documented in this encounter [facility] note* Diagnosis Left upper quadrant abdominal pain- Primary Leg cramping Cramp of limb documented in this encounter [facility] noteNo assessment information availableWLakeHealth [facility] Work [facility]* Diagnosis Transaminitis- Primary Nonspecific elevation of levels of transaminase or lactic acid dehydrogenase (LDH) documented in this encounter [facility] note* Diagnosis Bariatric surgery status- Primary documented in this encounter [facility] note* Diagnosis Food intolerance- Primary Other specified intestinal malabsorption Bariatric surgery status documented in this encounter [facility] note* Diagnosis NO SHOW- Primary documented in this encounter [facility] note* Diagnosis Encounter for gynecological examination without abnormal finding- Primary Routine gynecological examination Pelvic pain in female Unspecified symptom associated with female genital organs Breast cyst, left documented in this encounter [facility] note* Diagnosis Sinobronchitis- Primary Unspecified sinusitis (chronic) Strep pharyngitis Streptococcal sore throat [facility] Diagnosis Sinobronchitis Unspecified sinusitis (chronic) documented in this encounter [facility] note* Diagnosis Left ovarian cyst- Primary Other and unspecified ovarian cyst documented in this encounter [facility] note* Diagnosis , location unknown- Primary state, incidental documented in this encounter [facility] note* Diagnosis Lower abdominal pain- Primary Abdominal pain, other specified site [facility] Diagnosis 10 weeks gestation of - Primary state, incidental with uncertain dates in first trimester History of gastric bypass Bariatric surgery status Hx of gestational diabetes mellitus, not currently Personal history of gestational diabetes [facility]* Diagnosis , location unknown state, incidental [facility]* Diagnosis Breast cyst, left [facility]* Diagnosis Supervision of high risk in second trimester- Primary Unspecified high-risk History of gastric bypass Bariatric surgery status 14 weeks gestation of state, incidental [facility] Diagnosis Supervision of high risk in second trimester- Primary Unspecified high-risk History of gastric bypass Bariatric surgery status Rh negative state in antepartum period Rhesus isoimmunization affecting management of mother, antepartum condition Need for vaccination Need for prophylactic vaccination and inoculation against unspecified single disease 27 weeks gestation of state, incidental [facility] Diagnosis Anemia during in second trimester- Primary Impaired intestinal absorption Unspecified intestinal malabsorption [facility] Diagnosis Maternal iron deficiency anemia complicating , third trimester Impaired intestinal absorption Unspecified intestinal malabsorption [facility] Diagnosis Gestational diabetes mellitus, class A1- Primary Abnormal maternal glucose tolerance, complicating , childbirth, or the puerperium, unspecified as to episode of care Supervision of high risk in second trimester Unspecified high-risk Anemia during in second trimester 30 weeks gestation of state, incidental [facility] Diagnosis Maternal iron deficiency anemia complicating , third trimester- Primary Impaired intestinal absorption Unspecified intestinal malabsorption [facility]* Diagnosis Diet controlled gestational diabetes mellitus (GDM) in third trimester- Primary Gestational diabetes mellitus, class A1 Abnormal maternal glucose tolerance, complicating , childbirth, or the puerperium, unspecified as to episode of care History of gastric bypass Bariatric surgery status Dietary counseling Dietary surveillance and counseling [facility] Diagnosis Gestational diabetes mellitus, class A1- Primary Abnormal maternal glucose tolerance, complicating , childbirth, or the puerperium, unspecified as to episode of care Supervision of high risk in second trimester Unspecified high-risk History of gastric bypass Bariatric surgery status History of gestational hypertension Polyhydramnios in cash in third trimester [facility]* Diagnosis Insulin controlled gestational diabetes mellitus (GDM) in third trimester- Primary Polyhydramnios in third trimester complication, single or unspecified fetus History of gastric bypass Bariatric surgery status Anemia during in third trimester 31 weeks gestation of state, incidental [facility]* Diagnosis Insulin controlled gestational diabetes mellitus (GDM) in third trimester- Primary Polyhydramnios in third trimester complication, single or unspecified fetus [facility]* Diagnosis Insulin controlled gestational diabetes mellitus (GDM) in third trimester- Primary [facility]* Diagnosis Maternal iron deficiency anemia complicating , third trimester- Primary Impaired intestinal absorption Unspecified intestinal malabsorption 32 weeks gestation of state, incidental Supervision of high risk in second trimester Unspecified high-risk Insulin controlled gestational diabetes mellitus (GDM) in third trimester History of gastric bypass Bariatric surgery status [facility]* Diagnosis 32 weeks gestation of - Primary state, incidental Supervision of high risk in second trimester Unspecified high-risk Insulin controlled gestational diabetes mellitus (GDM) in third trimester History of gastric bypass Bariatric surgery status History of gestational hypertension [facility]* Diagnosis Insulin controlled gestational diabetes mellitus (GDM) in third trimester Polyhydramnios in third trimester complication, single or unspecified fetus [facility]* Diagnosis Maternal iron deficiency anemia complicating , third trimester- Primary Impaired intestinal absorption Unspecified intestinal malabsorption [facility]* Diagnosis Insulin controlled gestational diabetes mellitus (GDM) in third trimester- Primary 32 weeks gestation of state, incidental Polyhydramnios in third trimester complication, single or unspecified fetus Anemia during in third trimester [facility]* Diagnosis Onset Date Resolution Status 29 weeks gestation of acute History of gastric bypass ac [place] Uterine cramping acute 33 weeks gestation of acute Gestational diabetes requiring insulin acute Headache in , antepartum acute [facility] Work Phone: Evaluation note* Diagnosis 33 weeks gestation of - Primary state, incidental Insulin controlled gestational diabetes mellitus (GDM) in third trimester Polyhydramnios in third trimester complication, single or unspecified fetus documented in this encounter [facility] note* Diagnosis Insulin controlled gestational diabetes mellitus (GDM) in third trimester- Primary Polyhydramnios in third trimester complication, single or unspecified fetus History of gastric bypass Bariatric surgery status 34 weeks gestation of state, incidental documented in this encounter [facility] note* Diagnosis Supervision of other high risk pregnancies, third trimester- Primary 34 weeks gestation of state, incidental Polyhydramnios in third trimester complication, single or unspecified fetus Insulin controlled gestational diabetes mellitus (GDM) in third trimester History of gastric bypass Bariatric surgery status Anemia during in third trimester documented in this encounter [facility] note* Diagnosis Insulin controlled gestational diabetes mellitus (GDM) in third trimester- Primary Polyhydramnios in third trimester complication, single or unspecified fetus Supervision of other high risk pregnancies, third trimester 35 weeks gestation of state, incidental documented in this encounter [facility] note* Diagnosis Encounter for ultrasound to check growth- Primary Encounter for routine screening for malformation using ultrasonics Insulin controlled gestational diabetes mellitus (GDM) in third trimester Polyhydramnios in third trimester complication, single or unspecified fetus 35 weeks gestation of state, incidental documented in this encounter [facility] note* Diagnosis Supervision of other high risk pregnancies, third trimester- Primary Insulin controlled gestational diabetes mellitus (GDM) in third trimester Polyhydramnios in third trimester complication, single or unspecified fetus 35 weeks gestation of state, incidental History of gastric bypass Bariatric surgery status documented in this encounter [facility] note* Diagnosis Onset Date Resolution Status 29 weeks gestation of acute History of gastric bypass [place] Uterine cramping acute 33 weeks gestation of acute Gestational diabetes requiring insulin acute Headache in , antepartum resolved 33 weeks gestation of acute Gestational diabetes requiring insulin acute History of gastric bypass [place] Nausea and vomiting during acute Headache in , antepartum resolved 36 weeks gestation of acute Headache in acute [facility] Work Phone: Evaluation note* Diagnosis History of gastric bypass- Primary Bariatric surgery status Insulin controlled gestational diabetes mellitus (GDM) in third trimester Polyhydramnios in third trimester complication, single or unspecified fetus 36 weeks gestation of state, incidental [facility]* Diagnosis Onset Date Resolution Status 29 weeks gestation of acute History of gastric bypass [place] Uterine cramping acute 33 weeks gestation of acute Gestational diabetes requiring insulin acute Headache in , antepartum resolved 33 weeks gestation of acute Gestational diabetes requiring insulin acute History of gastric bypass [place] Nausea and vomiting during acute Headache in , antepartum resolved 36 weeks gestation of acute Headache in acute 36 weeks gestation of acute Gestational diabetes requiring insulin acute History of gastric bypass [place] History of gestational hypertension acute Polyhydramnios affecting acute Rh negative state in antepartum period acute Vaginal bleeding acute Vaginal delivery acute [facility] Work Phone: Evaluation note* Diagnosis Routine follow-up- Primary Impaired glucose tolerance in , delivered Abnormal maternal glucose tolerance, with delivery [facility]* Diagnosis Pelvic pain in female- Primary Unspecified symptom associated with female genital organs documented in this encounter [facility] note* Diagnosis Pelvic pain in female Unspecified symptom associated with female genital organs [facility]* Diagnosis Ovarian cyst, left- Primary Other and unspecified ovarian cyst documented in this encounter [facility] note* Diagnosis Pre-operative examination- Primary Preoperative examination, unspecified Onychomycosis Dermatophytosis of nail 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HCC) Spina bifida with hydrocephalus, unspecified region Hx of gestational diabetes mellitus, not currently Personal history of gestational diabetes History of gestational hypertension Morbid obesity (HCC) Morbid obesity Body mass index 40.0-44.9, adult (HCC) Body Mass Index 40.0-44.9, adult [facility]* Diagnosis Pre-operative examination- Primary Preoperative examination, unspecified Onychomycosis Dermatophytosis of nail 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HCC) Spina bifida with hydrocephalus, unspecified region Hx of gestational diabetes mellitus, not currently Personal history of gestational diabetes History of gestational hypertension Morbid obesity (HCC) Morbid obesity Ovarian cyst, left Other and unspecified ovarian cyst [facility]* Diagnosis Acute pain of left wrist Pre-operative examination- Primary Preoperative examination, unspecified Onychomycosis Dermatophytosis of nail 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HCC) Spina bifida with hydrocephalus, unspecified region Hx of gestational diabetes mellitus, not currently Personal history of gestational diabetes History of gestational hypertension Morbid obesity (HCC) Morbid obesity [facility] Diagnosis Pre-operative examination- Primary Preoperative examination, unspecified Onychomycosis Dermatophytosis of nail 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HCC) Spina bifida with hydrocephalus, unspecified region Hx of gestational diabetes mellitus, not currently Personal history of gestational diabetes History of gestational hypertension Morbid obesity (HCC) Morbid obesity Ovarian cyst, left- Primary Other and unspecified ovarian cyst [facility] Diagnosis Pre-operative examination- Primary Preoperative examination, unspecified Onychomycosis Dermatophytosis of nail 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HCC) Spina bifida with hydrocephalus, unspecified region Hx of gestational diabetes mellitus, not currently Personal history of gestational diabetes History of gestational hypertension Morbid obesity (HCC) Morbid obesity Missed menses- Primary Absence of menstruation [facility] Diagnosis Pre-operative examination- Primary Preoperative examination, unspecified Onychomycosis Dermatophytosis of nail 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HCC) Spina bifida with hydrocephalus, unspecified region Hx of gestational diabetes mellitus, not currently Personal history of gestational diabetes History of gestational hypertension Morbid obesity (HCC) Morbid obesity Encounter for test, result positive- Primary examination or test, positive result [facility] Diagnosis Pre-operative examination- Primary Preoperative examination, [...] ring hormonal contraceptive [facility] Diagnosis Pre-operative examination- Primary Preoperative examination, unspecified Onychomycosis Dermatophytosis of nail 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HCC) Spina bifida with hydrocephalus, unspecified region Hx of gestational diabetes mellitus, not currently Personal history of gestational diabetes History of gestational hypertension Morbid obesity (HCC) Morbid obesity Missed menses- Primary Absence of menstruation [facility] Diagnosis Pre-operative examination- Primary Preoperative examination, [...] and broad ligament [facility] Diagnosis Pre-operative examination- Primary Preoperative examination, [...] poor obstetric history [facility] Diagnosis Pre-operative examination- Primary Preoperative examination, unspecified Onychomycosis Dermatophytosis of nail 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HCC) Spina bifida with hydrocephalus, unspecified region Hx of gestational diabetes mellitus, not currently Personal history of gestational diabetes History of gestational hypertension Morbid obesity (HCC) Morbid obesity Anemia affecting in first trimester- Primary [facility] Diagnosis Pre-operative examination- Primary Preoperative examination, [...] , second trimester [facility]* Diagnosis Pre-operative examination- Primary Preoperative examination, unspecified Onychomycosis Dermatophytosis of nail 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HCC) Spina bifida with hydrocephalus, unspecified region Hx of gestational diabetes mellitus, not currently Personal history of gestational diabetes History of gestational hypertension Morbid obesity (HCC) Morbid obesity Encounter for screening for malformation using ultrasound- Primary 12 weeks gestation of state, incidental documented in this encounter [facility] note* Diagnosis Pre-operative examination- Primary Preoperative examination, unspecified Onychomycosis Dermatophytosis of nail 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HCC) Spina bifida with hydrocephalus, unspecified region Hx of gestational diabetes mellitus, not currently Personal history of gestational diabetes History of gestational hypertension Morbid obesity (HCC) Morbid obesity Anemia, unspecified type- Primary documented in this encounter [facility] note* Diagnosis Pre-operative examination- Primary Preoperative examination, [...] malabsorption * Assessment & Plan Note - Yovani Mora MD - 05/31/2024 4:30 PM EDT Associated Problem(s): Anemia affecting , antepartum h/o gastric bypass, iron levels still low despite attempt at po fe, referral for IVfe * Assessment & Plan Note - Yovani Mora MD - 05/31/2024 4:30 PM EDT [...] review. 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 * Assessment & Plan Note - Yovani Mora MD - 05/31/2024 4:15 PM EDT Associated Problem(s): Encounter for supervision of normal in multigravida [facility] Diagnosis Pre-operative examination- Primary Preoperative [...] second trimester- Primary [facility]* Diagnosis Pre-operative examination- Primary Preoperative examination, unspecified Onychomycosis Dermatophytosis of nail 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HCC) Spina bifida with hydrocephalus, unspecified region Hx of gestational diabetes mellitus, not currently Personal history of gestational diabetes History of gestational hypertension Morbid obesity ([facility]) Morbid obesity 17 weeks gestation of ([facility])- Primary state, incidental Encounter for supervision of normal in multigravida ([facility]) Anemia affecting , antepartum ([facility]) Diet controlled gestational diabetes mellitus (GDM) in second trimester ([facility]) Other iron deficiency anemia Impaired intestinal absorption ([facility]) Unspecified intestinal malabsorption Insulin controlled gestational diabetes mellitus (GDM) in second trimester ([facility])- Primary Anemia Anemia, unspecified Rh negative state in antepartum period ([facility]) Rhesus isoimmunization affecting management of mother, antepartum condition Hx of gestational diabetes in prior , currently ([facility]) with other poor obstetric history History of gastric bypass Bariatric surgery status History of gestational hypertension Prematurity of fetus ([facility]) Other infants, unspecified (weight) 19 weeks gestation of ([facility]) state, incidental Maternal iron deficiency anemia complicating , second trimester ([facility])- Primary Impaired intestinal absorption ([facility]) Unspecified intestinal malabsorption History of gastric bypass Bariatric surgery status documented in this encounter [facility] note* Diagnosis Pre-operative examination- Primary Preoperative examination, unspecified Onychomycosis Dermatophytosis of nail 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HCC) Spina bifida with hydrocephalus, unspecified region Hx of gestational diabetes mellitus, not currently Personal history of gestational diabetes History of gestational hypertension Morbid obesity ([facility]) Morbid obesity 17 weeks gestation of ([facility])- Primary state, incidental Encounter for supervision of normal in multigravida ([facility]) Anemia affecting , antepartum ([facility]) Diet controlled gestational diabetes mellitus (GDM) in second trimester ([facility]) Other iron deficiency anemia Impaired intestinal absorption ([facility]) Unspecified intestinal malabsorption Insulin controlled gestational diabetes mellitus (GDM) in second trimester ([facility])- Primary Anemia Anemia, unspecified Rh negative state in antepartum period ([facility]) Rhesus isoimmunization affecting management of mother, antepartum condition Hx of gestational diabetes in prior , currently ([facility]) with other poor obstetric history History of gastric bypass Bariatric surgery status History of gestational hypertension Prematurity of fetus (HCC) Other infants, unspecified (weight) 19 weeks gestation of ([facility]) state, incidental Insulin controlled gestational diabetes mellitus (GDM) in second trimester ([facility])- Primary 20 weeks gestation of ([facility]) state, incidental documented in this encounter [facility] note* Diagnosis Pre-operative examination- Primary Preoperative examination, unspecified Onychomycosis Dermatophytosis of nail 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HCC) Spina bifida with hydrocephalus, unspecified region Hx of gestational diabetes mellitus, not currently Personal history of gestational diabetes History of gestational hypertension Morbid obesity ([facility]) Morbid obesity 17 weeks gestation of ([facility])- Primary state, incidental Encounter for supervision of normal in multigravida ([facility]) Anemia affecting , antepartum ([facility]) Diet controlled gestational diabetes mellitus (GDM) in second trimester ([facility]) Other iron deficiency anemia Impaired intestinal absorption ([facility]) Unspecified intestinal malabsorption Insulin controlled gestational diabetes mellitus (GDM) in second trimester ([facility])- Primary Anemia Anemia, unspecified Rh negative state in antepartum period ([facility]) Rhesus isoimmunization affecting management of mother, antepartum condition Hx of gestational diabetes in prior , currently ([facility]) with other poor obstetric history History of gastric bypass Bariatric surgery status History of gestational hypertension Prematurity of fetus (HCC) Other infants, unspecified (weight) 19 weeks gestation of ([facility]) state, incidental Hx of gestational diabetes in prior , currently ([facility])- Primary with other poor obstetric history documented in this encounter [facility] note* Diagnosis Pre-operative examination- Primary Preoperative examination, unspecified Onychomycosis Dermatophytosis of nail 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HCC) Spina bifida with hydrocephalus, unspecified region Hx of gestational diabetes mellitus, not currently Personal history of gestational diabetes History of gestational hypertension Morbid obesity ([facility]) Morbid obesity 17 weeks gestation of ([facility])- Primary state, incidental Encounter for supervision of normal in multigravida ([facility]) Anemia affecting , antepartum ([facility]) Diet controlled gestational diabetes mellitus (GDM) in second trimester ([facility]) Other iron deficiency anemia Impaired intestinal absorption ([facility]) Unspecified intestinal malabsorption Anemia Anemia, unspecified Rh negative state in antepartum period ([facility]) Rhesus isoimmunization affecting management of mother, antepartum condition Hx of gestational diabetes in prior , currently ([facility]) with other poor obstetric history History of gastric bypass Bariatric surgery status History of gestational hypertension Prematurity of fetus (HCC) Other infants, unspecified (weight) 20 weeks gestation of ([facility])- Primary state, incidental Insulin controlled gestational diabetes mellitus (GDM) in second trimester ([facility]) Anemia, unspecified type Rh negative state in antepartum period ([facility]) Rhesus isoimmunization affecting management of mother, antepartum condition Encounter for supervision of normal in multigravida ([facility]) [facility] Diagnosis Pre-operative examination- Primary Preoperative examination, unspecified Onychomycosis Dermatophytosis of nail 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[facility]) Spina bifida with hydrocephalus, unspecified region Hx of gestational diabetes mellitus, not currently Personal history of gestational diabetes History of gestational hypertension Morbid obesity ([facility]) Morbid obesity 17 weeks gestation of ([facility])- Primary state, incidental Encounter for supervision of normal in multigravida ([facility]) Anemia affecting , antepartum ([facility]) Diet controlled gestational diabetes mellitus (GDM) in second trimester ([facility]) Other iron deficiency anemia Impaired intestinal absorption ([facility]) Unspecified intestinal malabsorption Anemia Anemia, unspecified Rh negative state in antepartum period ([facility]) Rhesus isoimmunization affecting management of mother, antepartum condition Hx of gestational diabetes in prior , currently ([facility]) with other poor obstetric history History of gastric bypass Bariatric surgery status History of gestational hypertension Prematurity of fetus ([facility]) Other infants, unspecified (weight) Maternal iron deficiency anemia complicating , second trimester ([facility])- Primary Impaired intestinal absorption ([facility]) Unspecified intestinal malabsorption History of gastric bypass Bariatric surgery status [facility]* Diagnosis Pre-operative examination- Primary Preoperative examination, unspecified Onychomycosis Dermatophytosis of nail 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HCC) Spina bifida with hydrocephalus, unspecified region Hx of gestational diabetes mellitus, not currently Personal history of gestational diabetes History of gestational hypertension Morbid obesity ([facility]) Morbid obesity 17 weeks gestation of ([facility])- Primary state, incidental Encounter for supervision of normal in multigravida ([facility]) Anemia affecting , antepartum ([facility]) Diet controlled gestational diabetes mellitus (GDM) in second trimester ([facility]) Other iron deficiency anemia Impaired intestinal absorption ([facility]) Unspecified intestinal malabsorption Anemia Anemia, unspecified Rh negative state in antepartum period ([facility]) Rhesus isoimmunization affecting management of mother, antepartum condition Hx of gestational diabetes in prior , currently ([facility]) with other poor obstetric history History of gastric bypass Bariatric surgery status History of gestational hypertension Prematurity of fetus ([facility]) Other infants, unspecified (weight) Encounter for anatomic survey ([facility])- Primary Encounter for anatomic survey Pre-existing diabetes mellitus in in second trimester ([facility]) Diabetes mellitus, antepartum 20 weeks gestation of ([facility]) state, incidental [facility]* Diagnosis Pre-operative examination- Primary Preoperative examination, unspecified Onychomycosis Dermatophytosis of nail 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[facility]) Spina bifida with hydrocephalus, unspecified region Hx of gestational diabetes mellitus, not currently Personal history of gestational diabetes History of gestational hypertension Morbid obesity ([facility]) Morbid obesity 17 weeks gestation of ([facility])- Primary state, incidental Encounter for supervision of normal in multigravida ([facility]) Anemia affecting , antepartum ([facility]) Diet controlled gestational diabetes mellitus (GDM) in second trimester ([facility]) Other iron deficiency anemia Impaired intestinal absorption ([facility]) Unspecified intestinal malabsorption Anemia Anemia, unspecified Rh negative state in antepartum period ([facility]) Rhesus isoimmunization affecting management of mother, antepartum condition Hx of gestational diabetes in prior , currently ([facility]) with other poor obstetric history History of gastric bypass Bariatric surgery status History of gestational hypertension Prematurity of fetus ([facility]) Other infants, unspecified (weight) Insulin controlled gestational diabetes mellitus (GDM) in second trimester ([facility])- Primary 20 weeks gestation of ([facility]) state, incidental Diabetes mellitus type 1, controlled, without complications ([facility]) Type I (juvenile type) diabetes mellitus without mention of complication, not stated as uncontrolled [facility]* Diagnosis Pre-operative examination- Primary Preoperative examination, unspecified Onychomycosis Dermatophytosis of nail 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[facility]) Spina bifida with hydrocephalus, unspecified region Hx of gestational diabetes mellitus, not currently Personal history of gestational diabetes History of gestational hypertension Morbid obesity ([facility]) Morbid obesity 17 weeks gestation of ([facility])- Primary state, incidental Encounter for supervision of normal in multigravida ([facility]) Anemia affecting , antepartum ([facility]) Diet controlled gestational diabetes mellitus (GDM) in second trimester ([facility]) Other iron deficiency anemia Impaired intestinal absorption ([facility]) Unspecified intestinal malabsorption Anemia Anemia, unspecified Rh negative state in antepartum period ([facility]) Rhesus isoimmunization affecting management of mother, antepartum condition Hx of gestational diabetes in prior , currently (HCC) with other poor obstetric history History of gastric bypass Bariatric surgery status History of gestational hypertension Prematurity of fetus (HCC) Other infants, unspecified (weight) Maternal iron deficiency anemia complicating , second trimester ([facility])- Primary Impaired intestinal absorption ([facility]) Unspecified intestinal malabsorption History of gastric bypass Bariatric surgery status [facility]* Diagnosis Pre-operative examination- Primary Preoperative examination, unspecified Onychomycosis Dermatophytosis of nail 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[facility]) Spina bifida with hydrocephalus, unspecified region Hx of gestational diabetes mellitus, not currently Personal history of gestational diabetes History of gestational hypertension Morbid obesity ([facility]) Morbid obesity 17 weeks gestation of ([facility])- Primary state, incidental Encounter for supervision of normal in multigravida ([facility]) Anemia affecting , antepartum ([facility]) Diet controlled gestational diabetes mellitus (GDM) in second trimester ([facility]) Other iron deficiency anemia Impaired intestinal absorption ([facility]) Unspecified intestinal malabsorption Anemia Anemia, unspecified Rh negative state in antepartum period ([facility]) Rhesus isoimmunization affecting management of mother, antepartum condition Hx of gestational diabetes in prior , currently ([facility]) with other poor obstetric history History of gastric bypass Bariatric surgery status History of gestational hypertension Prematurity of fetus ([facility]) Other infants, unspecified (weight) Supervision of high risk in second trimester ([facility])- Primary Unspecified high-risk Insulin controlled gestational diabetes mellitus (GDM) in second trimester ([facility]) Anemia, unspecified type 25 weeks gestation of ([facility]) state, incidental * Assessment & Plan Note - Génesis Jules MD - 07/24/2024 8:52 AM EDT Associated Problem(s): Insulin controlled gestational diabetes mellitus (GDM) in second trimester ([facility]) Sees endocrinology tomorrow- will need insulin adjusted- [...] controlled Orders: URINE OB DIP B/O Insulin Gilbert, Disposable, (PEN NEEDLE) 32 gauge x 5/32; 1 each as needed. OBSTETRIC ULTRASOUND WHI; Standing * Assessment & Plan Note - Génesis Jules MD - 07/24/2024 8:52 AM EDT Associated Problem(s): Anemia Continue IV iron 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[facility]) Spina bifida with hydrocephalus, unspecified region Hx of gestational diabetes mellitus, not currently Personal history of gestational diabetes History of gestational hypertension Morbid obesity (HCC) Morbid obesity 17 weeks gestation of ([facility])- Primary state, incidental Encounter for supervision of normal in multigravida ([facility]) Anemia affecting , antepartum ([facility]) Diet controlled gestational diabetes mellitus (GDM) in second trimester ([facility]) Other iron deficiency anemia Impaired intestinal absorption ([facility]) Unspecified intestinal malabsorption Anemia Anemia, unspecified Rh negative state in antepartum period ([facility]) Rhesus isoimmunization affecting management of mother, antepartum condition Hx of gestational diabetes in prior , currently ([facility]) with other poor obstetric history History of gastric bypass Bariatric surgery status History of gestational hypertension Prematurity of fetus ([facility]) Other infants, unspecified (weight) Supervision of high risk in second trimester ([facility])- Primary Unspecified high-risk Insulin controlled gestational diabetes mellitus (GDM) in second trimester ([facility]) Anemia, unspecified type 25 weeks gestation of ([facility]) state, incidental 28 weeks gestation of ([facility])- Primary state, incidental Supervision of high risk in second trimester ([facility]) Unspecified high-risk Insulin controlled gestational diabetes mellitus (GDM) in second trimester ([facility]) Rh negative state in antepartum period ([facility]) Rhesus isoimmunization affecting management of mother, antepartum condition Need for vaccination Need for prophylactic vaccination and inoculation against unspecified single disease Request for sterilization [facility]* Diagnosis Pre-operative examination- Primary Preoperative examination, unspecified Onychomycosis Dermatophytosis of nail 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[facility]) Spina bifida with hydrocephalus, unspecified region Hx of gestational diabetes mellitus, not currently Personal history of gestational diabetes History of gestational hypertension Morbid obesity ([facility]) Morbid obesity 17 weeks gestation of ([facility])- Primary state, incidental Encounter for supervision of normal in multigravida ([facility]) Anemia affecting , antepartum ([facility]) Diet controlled gestational diabetes mellitus (GDM) in second trimester ([facility]) Other iron deficiency anemia Impaired intestinal absorption ([facility]) Unspecified intestinal malabsorption Anemia Anemia, unspecified Rh negative state in antepartum period ([facility]) Rhesus isoimmunization affecting management of mother, antepartum condition Hx of gestational diabetes in prior , currently ([facility]) with other poor obstetric history History of gastric bypass Bariatric surgery status History of gestational hypertension Prematurity of fetus ([facility]) Other infants, unspecified (weight) Supervision of high risk in second trimester ([facility])- Primary Unspecified high-risk Insulin controlled gestational diabetes mellitus (GDM) in second trimester ([facility]) Anemia, unspecified type 25 weeks gestation of ([facility]) state, incidental Encounter for ultrasound to check growth ([facility])- Primary Encounter for routine screening for malformation using ultrasonics Insulin controlled gestational diabetes mellitus (GDM) in second trimester ([facility]) 28 weeks gestation of ([facility]) state, incidental [facility] Diagnosis Pre-operative examination- Primary Preoperative examination, unspecified Onychomycosis Dermatophytosis of nail 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[facility]) Spina bifida with hydrocephalus, unspecified region Hx of gestational diabetes mellitus, not currently Personal history of gestational diabetes History of gestational hypertension Morbid obesity ([facility]) Morbid obesity 17 weeks gestation of ([facility])- Primary state, incidental Encounter for supervision of normal in multigravida ([facility]) Anemia affecting , antepartum ([facility]) Diet controlled gestational diabetes mellitus (GDM) in second trimester ([facility]) Other iron deficiency anemia Impaired intestinal absorption ([facility]) Unspecified intestinal malabsorption Anemia Anemia, unspecified Rh negative state in antepartum period ([facility]) Rhesus isoimmunization affecting management of mother, antepartum condition Hx of gestational diabetes in prior , currently ([facility]) with other poor obstetric history History of gastric bypass Bariatric surgery status History of gestational hypertension Prematurity of fetus ([facility]) Other infants, unspecified (weight) Supervision of high risk in second trimester ([facility])- Primary Unspecified high-risk Insulin controlled gestational diabetes mellitus (GDM) in second trimester ([facility]) Anemia, unspecified type 25 weeks gestation of ([facility]) state, incidental Polyhydramnios in third trimester complication, single or unspecified fetus ([facility])- Primary Insulin controlled gestational diabetes mellitus (GDM) in second trimester ([facility]) Rh negative state in antepartum period ([facility]) Rhesus isoimmunization affecting management of mother, antepartum condition Supervision of high risk in second trimester ([facility]) Unspecified high-risk Anemia, unspecified type 30 weeks gestation of ([facility]) state, incidental [facility] Diagnosis Pre-operative examination- Primary Preoperative examination, unspecified Onychomycosis Dermatophytosis of nail 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[facility]) Spina bifida with hydrocephalus, unspecified region Hx of gestational diabetes mellitus, not currently Personal history of gestational diabetes History of gestational hypertension Morbid obesity ([facility]) Morbid obesity 17 weeks gestation of ([facility])- Primary state, incidental Encounter for supervision of normal in multigravida ([facility]) Anemia affecting , antepartum ([facility]) Diet controlled gestational diabetes mellitus (GDM) in second trimester ([facility]) Other iron deficiency anemia Impaired intestinal absorption ([facility]) Unspecified intestinal malabsorption Anemia Anemia, unspecified Rh negative state in antepartum period ([facility]) Rhesus isoimmunization affecting management of mother, antepartum condition Hx of gestational diabetes in prior , currently ([facility]) with other poor obstetric history History of gastric bypass Bariatric surgery status History of gestational hypertension Prematurity of fetus ([facility]) Other infants, unspecified (weight) Supervision of high risk in second trimester ([facility])- Primary Unspecified high-risk Insulin controlled gestational diabetes mellitus (GDM) in second trimester ([facility]) Anemia, unspecified type 25 weeks gestation of ([facility]) state, incidental Insulin controlled gestational diabetes mellitus (GDM) in third trimester ([facility]) [O24.414]- Primary [facility] Diagnosis Pre-operative examination- Primary Preoperative examination, unspecified Onychomycosis Dermatophytosis of nail 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[facility]) Spina bifida with hydrocephalus, unspecified region Hx of gestational diabetes mellitus, not currently Personal history of gestational diabetes History of gestational hypertension Morbid obesity ([facility]) Morbid obesity 17 weeks gestation of ([facility])- Primary state, incidental Encounter for supervision of normal in multigravida ([facility]) Anemia affecting , antepartum ([facility]) Diet controlled gestational diabetes mellitus (GDM) in second trimester ([facility]) Other iron deficiency anemia Impaired intestinal absorption ([facility]) Unspecified intestinal malabsorption Anemia Anemia, unspecified Rh negative state in antepartum period ([facility]) Rhesus isoimmunization affecting management of mother, antepartum condition Hx of gestational diabetes in prior , currently ([facility]) with other poor obstetric history History of gastric bypass Bariatric surgery status History of gestational hypertension Prematurity of fetus ([facility]) Other infants, unspecified (weight) Supervision of high risk in second trimester ([facility])- Primary Unspecified high-risk Insulin controlled gestational diabetes mellitus (GDM) in second trimester ([facility]) Anemia, unspecified type 25 weeks gestation of ([facility]) state, incidental Diabetes mellitus type 1, controlled, without complications ([facility]) Type I (juvenile type) diabetes mellitus without mention of complication, not stated as uncontrolled [facility] Diagnosis Pre-operative examination- Primary Preoperative examination, unspecified Onychomycosis Dermatophytosis of nail 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[facility]) Spina bifida with hydrocephalus, unspecified region Hx of gestational diabetes mellitus, not currently Personal history of gestational diabetes History of gestational hypertension Morbid obesity ([facility]) Morbid obesity 17 weeks gestation of ([facility])- Primary state, incidental Encounter for supervision of normal in multigravida ([facility]) Anemia affecting , antepartum ([facility]) Diet controlled gestational diabetes mellitus (GDM) in second trimester ([facility]) Other iron deficiency anemia Impaired intestinal absorption ([facility]) Unspecified intestinal malabsorption Anemia Anemia, unspecified Rh negative state in antepartum period ([facility]) Rhesus isoimmunization affecting management of mother, antepartum condition Hx of gestational diabetes in prior , currently ([facility]) with other poor obstetric history History of gastric bypass Bariatric surgery status History of gestational hypertension Prematurity of fetus ([facility]) Other infants, unspecified (weight) Supervision of high risk in second trimester ([facility])- Primary Unspecified high-risk Insulin controlled gestational diabetes mellitus (GDM) in second trimester ([facility]) Anemia, unspecified type 25 weeks gestation of ([facility]) state, incidental Encounter for ultrasound to check growth ([facility])- Primary Encounter for routine screening for malformation using ultrasonics Insulin controlled gestational diabetes mellitus (GDM) in second trimester ([facility]) 31 weeks gestation of ([facility]) state, incidental Polyhydramnios in third trimester complication, single or unspecified fetus ([facility])- Primary Insulin controlled gestational diabetes mellitus (GDM) in second trimester ([facility]) Anemia affecting , antepartum ([facility]) 31 weeks gestation of ([facility]) state, incidental [facility] Diagnosis Pre-operative examination- Primary Preoperative examination, unspecified Onychomycosis Dermatophytosis of nail 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[facility]) Spina bifida with hydrocephalus, unspecified region Hx of gestational diabetes mellitus, not currently Personal history of gestational diabetes History of gestational hypertension Morbid obesity ([facility]) Morbid obesity 17 weeks gestation of ([facility])- Primary state, incidental Encounter for supervision of normal in multigravida ([facility]) Anemia affecting , antepartum ([facility]) Diet controlled gestational diabetes mellitus (GDM) in second trimester ([facility]) Other iron deficiency anemia Impaired intestinal absorption ([facility]) Unspecified intestinal malabsorption Anemia Anemia, unspecified Rh negative state in antepartum period ([facility]) Rhesus isoimmunization affecting management of mother, antepartum condition Hx of gestational diabetes in prior , currently ([facility]) with other poor obstetric history History of gastric bypass Bariatric surgery status History of gestational hypertension Prematurity of fetus ([facility]) Other infants, unspecified (weight) Supervision of high risk in second trimester ([facility])- Primary Unspecified high-risk Insulin controlled gestational diabetes mellitus (GDM) in second trimester ([facility]) Anemia, unspecified type 25 weeks gestation of ([facility]) state, incidental Polyhydramnios in third trimester complication, single or unspecified fetus ([facility])- Primary Insulin controlled gestational diabetes mellitus (GDM) in second trimester ([facility]) Anemia affecting , antepartum ([facility]) 31 weeks gestation of ([facility]) state, incidental * Assessment & Plan Note - Gracie Navarro MD - 09/07/2024 10:21 AM EDTAssociated Problem(s): Polyhydramnios (HCC) Growth US today with BPP 10/20 Orders: URINE OB DIP B/O * Assessment & Plan Note - Gracie Navarro MD - 09/07/2024 10:21 AM EDTAssociated Problem(s): Insulin controlled gestational diabetes mellitus (GDM) in second trimester ([facility]) Managed by endocrinology. Patient reports BS are getting better. testing at 32 weeks. Orders: URINE OB DIP B/O Blood-Glucose Sensor (FREESTYLE ELEANOR 3 PLUS SENSOR) ira; Please change every 15 days * Assessment & Plan Note - Gracie Navarro MD - 09/07/2024 10:21 AM EDTAssociated Problem(s): Anemia affecting , antepartum ([facility]) Continue iron PO. S/p IV iron. 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[facility]) Spina bifida with hydrocephalus, unspecified region Hx of gestational diabetes mellitus, not currently Personal history of gestational diabetes History of gestational hypertension Morbid obesity ([facility]) Morbid obesity 17 weeks gestation of ([facility])- Primary state, incidental Encounter for supervision of normal in multigravida ([facility]) Anemia affecting , antepartum ([facility]) Diet controlled gestational diabetes mellitus (GDM) in second trimester ([facility]) Other iron deficiency anemia Impaired intestinal absorption ([facility]) Unspecified intestinal malabsorption Anemia Anemia, unspecified Rh negative state in antepartum period ([facility]) Rhesus isoimmunization affecting management of mother, antepartum [...] , antepartum ([facility]) [facility] Author Sandra Edwards [facility] July 02, 2023 3:23pm Note Date/Time July 02, 2023 3:2 3pm [facility] Medical Records Department [address] [place] [address] OB Triage Physician Note 07/02/23 1521 MR#: [id number] Acct: [id number] Name: LAINA DE LEÓN Rep #:[id number] : 1995 28 From: Sandra Edwards DO PCP: SHAYY Alejandro Status:REG C LI Y Location: [place] [id number] HPI - General General Date of Admission: 07/02/23 Date of Service: 07/02/23 Chief Complaint: rule out pre e HPI Narrative LAINA DE LEÓN, is a 28 F who presents with headache, vision changes that resolve when she removes her glasses, RUQ pain when she pushes on her abdomen. The headache has been present for days and is noted at her last visit. Maternal Data Information BELEM Calculator Estimated Delivery Date Method Current WG Current Estimate 07/27/23 Manual 36w 3d [facility] Medical History Gestational diabetes Gestational diabetes Home [...] Sandra Edwards DO; SHAYY Alejandro ~ Signed [facility] Work Phone: History and physical note Author Sandra Edwards [facility] July 02, 2023 4:00pm Note Date/Time July 02, 2023 3:5 2pm [facility] Medical Records Department [address] [place] [address] OB Triage Physician Note 07/02/23 1548 MR#: [id number] Acct: [id number] Name: LAINA DE LEÓN Rep #:[id number] : 1995 28 From: Sandra Edwards DO PCP: SHAYY Alejandro Status:REG Noemy МАРИНА Y Location: [place] [id number] HPI - General General Date of Admission: 07/02/23 Date of Service: 07/02/23 Chief Complaint: rule out pre e HPI Narrative LAINA DE LEÓN, is a 28 F who [...] WG Current Estimate 07/27/23 Manual 36w 3d [facility] Medical History Gestational diabetes Gestational diabetes Home [...] 37 weeks. (2) Headache in : 07/02/23 7391 <Electronically signed by Sandra Edwards DO> Date [...] Sandra Edwards DO; SHAYY Alejandro ~* Signed [facility] Work Phone: Hospital Discharge instructions Additional Instructions 1. You will need to contact the lab for repeat test in 48 hours. Recommend having the test done here since there can be a 15 to 20% variance if done at another lab. 2. Contact Dr. 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 Please return to the emergency department with any concerns or worsening.[facility] Work Phone: Hospital Discharge instructions Additional Instructions NPH 20 units with breakfast. 10 units qhs. QHS snack Date [facility]: [facility] Work Phone: Hospital Discharge instructions Additional Instructions Keep next follow up appointmentWL[facility] Work Phone: Hospital Discharge instructionsAdditional Instructions Call office Wednesday morning to be seen Wednesday or Wednesday.[facility] Work Phone: Reason for referral (narrative)* Outpatient Procedure (Routine) - Authorized Specialty Diagnoses / Procedures [facility] Diagnoses Body mass index 40.0-44.9, adult (HCC) Procedures ECG COMPLETE ECG ROUTINE ECG W/LEAST 12 LDS W/I&R Cristy Platt APRN.CNP [address] [id number] [facility] [place] [address] [place] [id number] Referral ID Status Reason Start Date Expiration Date Visits Requested Visits Authorized [id number] Authorized Auto-Generat ed Referral 05/28/2022 05/28/2023 1 1 T [facility] for referral (narrative)* Diagnostic Procedure Only (Routine) - Pending Review Specialty Diagnoses / Procedures [facility] Referred To Contact XR IMAGING Diagnoses Food intolerance Procedures XR UPPER GI SINGLE CONTRAST RADIOLOGIC EXAM UPR GI TRC SINGLE CONTRAST STUDY Brenda Yost MD [address] [id number] Xr Imaging Referral ID Status Reason Start Date Expiration Date Visits Requested Visits Authorized [id number] Pending Review Auto-Generat ed Referral 09/18/2022 10/18/2023 1 1 T [facility] for referral (narrative)* Diagnostic Procedure Only (Routine) - Authorized Specialty Diagnoses / Procedures [facility] Ref[facility] To Contact [facility] Diagnoses Breast cyst, left Procedures US BREAST LTD LEFT US BREAST UNI REAL TIME WITH IMAGE LIMITED Kayy Longo APRN.CNP [address] [place] [address] [facility] [address] [place] [address] Referral ID Status Reason Start Date Expiration Date Visits Requested Visits Authorized [id number] Authorized Auto-Generat ed Referral 10/16/2022 11/15/2023 1 1 * Diagnostic Procedure Only (Routine) - Authorized Specialty Diagnoses / Procedures Referred By Contac t Referred To Contact [facility] Diagnoses Pelvic pain in female Procedures PELVIC US WHI US PELVIC NONOBSTETRIC REAL-TIME IMAGE COMPLETE Kayy Longo APRN.CNP [address] [place] [address] [facility] [address] [place] [address] Referral ID Status Reason Start Date Expiration Date Visits Requested Visits Authorized [id number] Authorized Auto-Generat ed Referral 10/16/2022 10/16/2023 1 1 [facility] for referral (narrative)* Diagnostic Procedure Only (Routine) - Authorized Specialty Diagnoses / Procedures Referred By Contac t Referred To Contact US IMAGING Diagnoses Left ovarian cyst Procedures US FEMALE PELVIS TRANSVAG US TRANSVAGINAL Kayy Longo APRN.CNP [address] [place] [address] [place] [address] Referral ID Status Reason Start Date Expiration Date Visits Requested Visits Authorized [id number] Authorized Auto-Generat ed Referral 11/05/2022 12/05/2023 1 1 [facility] for referral (narrative)* Diagnostic Procedure Only (Routine) - Pending Review Specialty Diagnoses / Procedures Referred By Contac t Referred To Contact [facility] IMAGING Diagnoses , location unknown Procedures US PREG TRANSVAG <14 WEEKS US PREG UTERUS REAL TIME W/IMAGE DCMTN TRANSVAG Yovani Mora MD [address] [place] [address] [place] [address] Referral ID Status Reason Start Date Expiration Date Visits Requested Visits Authorized [id number] Pending Review Auto-Generat ed Referral 12/01/2022 12/31/2023 1 1 * Diagnostic Procedure Only (Routine) - Pending Review Specialty Diagnoses / Procedures Referred By Contac t Referred To Contact US IMAGING Diagnoses , location unknown Procedures US PREG TRANSABD <14 WEEKS LTD US UTERUS LIMITED 1/> FETUSES Yovani Mora MD [address] [place] [address] [place] [address] Referral ID Status Reason Start Date Expiration Date Visits Requested Visits Authorized [id number] Pending Review Auto-Generat ed Referral 12/01/2022 12/31/2023 1 1 [facility] for referral (narrative)* Diagnostic Procedure Only (Routine) - Closed Specialty Diagnoses / Procedures Referred By Contac t Referred To Contact US IMAGING Diagnoses , location unknown Procedures US PREG TRANSVAG <14 WEEKS US PREG UTERUS REAL TIME W/IMAGE DCMTN TRANSVAG Yovani Mora MD [address] [place] [address] [place] [address] Referral ID Status Reason Start Date Expiration Date V isits Requested Visits Authorized [id number] Closed Auto-Generate d Referral 12/01/2022 12/31/2023 1 1 * Diagnostic Procedure Only (Routine) - Closed Specialty Diagnoses / Procedures Referred By Contac t Referred To Contact [facility] IMAGING Diagnoses , location unknown Procedures US PREG TRANSABD <14 WEEKS LTD US UTERUS LIMITED 1/> FETUSES Yovani Mora MD [address] [place] [address] [place] [address] Referral ID Status Reason Start Date Expiration Date V isits Requested Visits Authorized [id number] Closed Auto-Generate d Referral 12/01/2022 12/31/2023 1 1 [facility] for referral (narrative)* Diagnostic Procedure Only (Routine) - Closed Specialty Diagnoses / Procedures Referred By Contac t Referred To Contact [facility] Diagnoses Breast cyst, left Procedures US BREAST LTD LEFT US BREAST UNI REAL TIME WITH IMAGE LIMITED Kayy Longo APRN.CNP [address] [place] [address] [facility] [address] [place] [address] Referral ID Status Reason Start Date Expiration Date V isits Requested Visits Authorized [id number] Closed Auto-Generate d Referral 10/16/2022 11/15/2023 1 1 [facility] for referral (narrative)* Diagnostic Procedure Only (Routine) - Authorized Specialty Diagnoses / Procedures Referred By Contac t Referred To Contact [facility] Diagnoses History of gastric bypass 14 weeks gestation of Supervision of high risk in second trimester Procedures OBSTETRIC ULTRASOUND WHI US PREG UTERUS AFTER 1ST TRIMEST GESTATION Yovani Mora MD [address] [place] [address] [facility] [address] [place] [address] Referral ID Status Reason Start Date Expiration Date Visits Requested Visits Authorized [id number] Authorized Auto-Generat ed Referral 3 01/29/2024 1 1 [facility] for referral (narrative)* Diagnostic Procedure Only (Routine) - Pending Review Specialty Diagnoses / Procedures Referred By Contac t Referred To Contact [facility] Diagnoses Insulin controlled gestational diabetes mellitus (GDM) in third trimester Polyhydramnios in third trimester complication, single or unspecified fetus History of gastric bypass 31 weeks gestation of Procedures BIOPHYSICAL PROFILE US WHI BIOPHYSICAL PROFILE NON-STRESS TESTING Génesis Jules MD [address] [place] [address] [facility] [address] [place] [address] Referral ID Status Reason Start Date Expiration Date Visits Requested Visits Authorized [id number] Pending Review Auto-Generat ed Referral 05/26/2023 05/25/2024 10 1 * Outpatient Procedure (Routine) - Authorized Specialty Diagnoses / Procedures Referred By Catie t Referred To Contact [facility] Diagnoses 31 weeks gestation of Polyhydramnios in third trimester complication, single or unspecified fetus Insulin controlled gestational diabetes mellitus (GDM) in third trimester Procedures NON-STRESS TEST NON-STRESS TEST Génesis Jules MD [address] [place] [address] [address] Referral ID Status Reason Start Date Expiration Date Visits Requested Visits Authorized [id number] Authorized Auto-Generat ed Referral 05/26/2023 05/25/2024 10 1 [facility] for referral (narrative)* Diagnostic Procedure Only (Routine) - Pending Review Specialty Diagnoses / Procedures Referred By Catie preez Referred To Contact [facility] Diagnoses Insulin controlled gestational diabetes mellitus (GDM) in third trimester Polyhydramnios in third trimester complication, single or unspecified fetus Procedures OBSTETRIC ULTRASOUND WHI US PREG UTERUS AFTER 1ST TRIMEST GESTATION Génesis Jules MD [address] [place] [address] [address] Referral ID Status Reason Start Date Expiration Date Visits Requested Visits Authorized [id number] Pending Review Auto-Generat ed Referral 05/26/2023 05/25/2024 2 1 [facility] for referral (narrative)* Diagnostic Procedure Only (Routine) - Authorized Specialty Diagnoses / Procedures Referred By Contac t Referred To Contact [facility] Diagnoses Pelvic pain in female Procedures PELVIC US I US PELVIC NONOBSTETRIC REAL-TIME IMAGE COMPLETE Kayy Longo APRN.CNP [address] [place] [address] [facility] [address] [place] [address] Referral ID Status Reason Start Date Expiration Date Visits Requested Visits Authorized [id number] Authorized Auto-Generat ed Referral 09/13/2023 09/12/2024 1 1 [facility] for referral (narrative)* Diagnostic Procedure Only (Routine) - Authorized Specialty Diagnoses / Procedures Referred By Contac t Referred To Contact [facility] Diagnoses Ovarian cyst, left Procedures PELVIC US [facility] US PELVIC NONOBSTETRIC REAL-TIME IMAGE COMPLETE Kayy Longo APRN.CNP [address] [place] [address] [facility] [address] [place] [address] Referral ID Status Reason Start Date Expiration Date Visits Requested Visits Authorized [id number] Authorized Auto-Generat ed Referral 10/04/2023 10/03/2024 1 1 [facility] for referral (narrative)* Diagnostic Procedure Only (Routine) - New Request Specialty Diagnoses / Procedures Referred By Contac t Referred To Contact [facility] Diagnoses Ovarian cyst, left Procedures PELVIC US I US PELVIC NONOBSTETRIC REAL-TIME IMAGE COMPLETE Kayy Longo APRN.CNP [address] [place] [address] [facility] [address] [place] [address] Referral ID Status Reason Start Date Expiration Date Visits Requested Visits Authorized [id number] New Request Auto-Generat ed Referral 12/17/2023 12/16/2024 1 [facility] Diagnostic Procedure Only (Routine) - Authorized Specialty Diagnoses / Procedures Referred By Contac t Referred To Contact [facility] Diagnoses Encounter for anatomic survey Procedures OBSTETRIC ULTRASOUND WHI US PREG UTERUS AFTER 1ST TRIMEST 1 GESTATION Kayy Longo APRN.CNP [address] [place] [address] [place] [phone] Referral ID Status Reason Start Date Expiration Date Visits Requested Visits Authorized [id number] Authorized Auto-Generat ed Referral 03/31/2024 03/31/2025 1 1 * Diagnostic Procedure Only (Routine) - Authorized Specialty Diagnoses / Procedures Referred By Contac t Referred To Contact [facility] Diagnoses 8 weeks gestation of Procedures OBSTETRIC ULTRASOUND WHI US PREG UTERUS AFTER 1ST TRIMEST GESTATION Kayy Longo APRN.CNP [address] [place] [address] [place] [phone] Referral ID Status Reason Start Date Expiration Date Visits Requested Visits Authorized [id number] Authorized Auto-Generat ed Referral 03/31/2024 03/31/2025 1 1 [facility])No reason for referral information availableWLakeHealth [facility] Work Phone: Reason for visit Narrative* Diagnostic Procedure Only (Routine) - Closed Specialty Diagnoses / Procedures Referred By Contac t Referred To Contact [facility] Diagnoses Pelvic pain in female Procedures PELVIC US WHI US PELVIC NONOBSTETRIC REAL-TIME IMAGE COMPLETE Kayy Longo APRN.CNP [address] [place] [address] [address] Referral ID Status Reason Start Date Expiration Date V isits Requested Visits Authorized [id number] Closed Auto-Generate d Referral 09/13/2023 09/12/2024 1 1 [facility] for visit Narrative* Diagnostic Procedure Only (Routine) - Closed Specialty Diagnoses / Procedures Referred By Contac t Referred To Contact [facility] Diagnoses Ovarian cyst, left Procedures PELVIC US WHI US PELVIC NONOBSTETRIC REAL-TIME IMAGE COMPLETE Kayy Longo APRN.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 [address] [place] [address] [address] Referral ID Status Reason Start Date Expiration Date V isits Requested Visits Authorized [id number] Closed Auto-Generate d Referral 10/04/2023 10/03/2024 1 1 [facility] for visit Narrative* Diagnostic Procedure Only (Routine) - Closed Specialty Diagnoses / Procedures Referred By Contac t Referred To Contact [facility] Diagnoses Missed menses Procedures OBSTETRIC ULTRASOUND WHI US PREG UTERUS AFTER 1ST TRIMEST 1/ GESTATION Inna Garcia MD [address] [place] [address] [address] Referral ID Status Reason Start Date Expiration Date V isits Requested Visits Authorized [id number] Closed Auto-Generate d Referral 03/06/2024 03/06/2025 1 1 [facility] Summary Purpose [...] Documents on File Type Date Recorded 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 Advance Directive(s) 01/21/2021 9:54 AM Advance Directive(s) 12/02/2020 10:24 AM Advance Directive(s) 11/28/2020 10:54 AM Advance Directive(s) 08/30/2018 6:12 AM Advance Directive Response Recorded Date/ Time Living Will No August 27, 2022 11:27pm Power of Page Technician No August 27 11:27pm Advance Directive Response Recorded Date/ Time Living Will No November 17, 023 11:21am Power of Page Technician No November 17, 2022 11:21am Advance Directive Response Recorded Date/ Time Living Will No February 18 9:25pm Power of Page Technician No February 18, 2023 9:25pm Advance Directive Response Recorded Date/ Time Living Will No April 12 7:37pm Power of Page Technician No April 12, 2023 7:37pm Advance Directive Response Recorded Date/ Time Living Will No April 12 8:37pm Power of Page Technician No April 12, 2023 8:37pm Advance Directive Response Recorded Date/ Time Living Will No July 04, 2023 8:12am Power of Page Technician No July 03 8:12am Date Activated [...] CC Education - COMMON 01/01/2023 [place] - [place] 01/01/2023 Problem Noted Date Diagnosed Date [facility] Education - [facility] 01/01/2023 Education - [place] 01/01/2023 Problem Noted Date Diagnosed Date [facility] - [facility] 01/01/2023 Education - [place] 01/01/2023 Problem Noted Date Diagnosed Date [facility] [...] CC Education - COMMON 01/01/2023 Education - [place] 01/01/2023 Active Problems Noted Date Diagnosed Date [facility] Education - [facility]ON 01/01/2023 Education - [place] 01/01/2023 Chief Complaint and Reason for Visit [...] Date R/O June 23, 2024 9:5 5pm Chief Complaint Admit Date R/O June 23, 2024 9:5 5pm RULE OUT PRE E September 23, 2024 4:50 pm Reason for Visit Admit Date 20 weeks gestation of June 232024 9:55pm Back pain affecting in second trimester June 23, 2024 9:55pm Reason for Referral Specialty Diagnoses / Procedures Referred By Contac t Referred To Contact Diagnoses Gestational diabetes mellitus, class A1 Procedures CONSULT TO GESTATIONAL/ 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 TEACHER ASSISTANT OFFICE/OUTPATIENT [facility] 60 MINUTES Génesis Jules MD [address] [place] [address] Referral ID Status Reason Start Date Expiration Date Visits Requested Visits Authorized [id number] Authorized PCP Requested Referral Auto-Generate d Referral 05/19/2023 05/18/2024 1 1 Additional Source Comments INFORMATION SOURCE (unrecogn ized section and content) DATE CREATED AUTHOR 09/01/2018 [facility] DATE CREATED AUTHOR AUTHOR'S ORGANIZ ATION 05/05/2019 [facility] DATE CREATED AUTHOR AUTHOR'S ORGANIZ ATION 12/03/2020 [facility] DATE CREATED AUTHOR AUTHOR'S ORGANIZ ATION 05/30/2021 [facility] DATE CREATED AUTHOR AUTHOR'S ORGANIZ ATION 09/30/2022 [facility] DATE CREATED AUTHOR AUTHOR'S ORGANIZ ATION 06/21/2024 [facility] DATE CREATED AUTHOR AUTHOR'S ORGANIZ ATION 06/30/2024 [facility] DATE CREATED AUTHOR AUTHOR'S ORGANIZ ATION 09/25/2024 [facility] Source Comments (unrecognize d section and content) In the event this informatio n is protected by the Federal Confidentiality of Alcohol and Drug Abuse Patient Records regulations: The Federal rules restrict any use of the information to criminally investigate or prosecute any alcohol or drug abuse patient.[facility]In the event this information is protected by the Federal Confidentiality of Alcohol and Drug Abuse Patient Records regulations: The Federal rules restrict any use of the information to criminally investigate or prosecute any alcohol or drug abuse patient.[facility] HospitalIn the event this information is protected by the Federal Confidentiality of Alcohol and Drug Abuse Patient Records regulations: The Federal rules restrict any use of the information to criminally investigate or prosecute any alcohol or drug abuse patient.[facility] HospitalIn the event this information is protected by the Federal Confidentiality of Alcohol and Drug Abuse Patient Records regulations: The Federal rules restrict any use of the information to criminally investigate or prosecute any alcohol or drug abuse patient.[facility] HospitalIn the event this information is protected by the Federal Confidentiality of Alcohol and Drug Abuse Patient Records regulations: The Federal rules restrict any use of the information to criminally investigate or prosecute any alcohol or drug abuse patient.[facility] HospitalIn the event this information is protected by the Federal Confidentiality of Alcohol and Drug Abuse Patient Records regulations: The Federal rules restrict any use of the information to criminally investigate or prosecute any alcohol or drug abuse patient.[facility] HospitalIn the event this information is protected by the Federal Confidentiality of Alcohol and Drug Abuse Patient Records regulations: The Federal rules restrict any use of the information to criminally investigate or prosecute any alcohol or drug abuse patient.[facility] HospitalIn the event this information is protected by the Federal Confidentiality of Alcohol and Drug Abuse Patient Records regulations: The Federal rules restrict any use of the information to criminally investigate or prosecute any alcohol or drug abuse patient.[facility] HospitalIn the event this information is protected by the Federal Confidentiality of Alcohol and Drug Abuse Patient Records regulations: The Federal rules restrict any use of the information to criminally investigate or prosecute any alcohol or drug abuse patient.[facility] HospitalIn the event this information is protected by the Federal Confidentiality of Alcohol and Drug Abuse Patient Records regulations: The Federal rules restrict any use of the information to criminally investigate or prosecute any alcohol or drug abuse patient.[facility] HospitalIn the event this information is protected by the Federal Confidentiality of Alcohol and Drug Abuse Patient Records regulations: The Federal rules restrict any use of the information to criminally investigate or prosecute any alcohol or drug abuse patient.[facility] HospitalIn the event this information is protected by the Federal Confidentiality of Alcohol and Drug Abuse Patient Records regulations: The Federal rules restrict any use of the information to criminally investigate or prosecute any alcohol or drug abuse patient.[facility] HospitalIn the event this information is protected by the Federal Confidentiality of Alcohol and Drug Abuse Patient Records regulations: The Federal rules restrict any use of the information to criminally investigate or prosecute any alcohol or drug abuse patient.[facility] HospitalIn the event this information is protected by the Federal Confidentiality of Alcohol and Drug Abuse Patient Records regulations: The Federal rules restrict any use of the information to criminally investigate or prosecute any alcohol or drug abuse patient.[facility] HospitalIn the event this information is protected by the Federal Confidentiality of Alcohol and Drug Abuse Patient Records regulations: The Federal rules restrict any use of the information to criminally investigate or prosecute any alcohol or drug abuse patient.[facility] HospitalIn the event this information is protected by the Federal Confidentiality of Alcohol and Drug Abuse Patient Records regulations: The Federal rules restrict any use of the information to criminally investigate or prosecute any alcohol or drug abuse patient.[facility] HospitalIn the event this information is protected by the Federal Confidentiality of Alcohol and Drug Abuse Patient Records regulations: The Federal rules restrict any use of the information to criminally investigate or prosecute any alcohol or drug abuse patient.[facility] HospitalIn the event this information is protected by the Federal Confidentiality of Alcohol and Drug Abuse Patient Records regulations: The Federal rules restrict any use of the information to criminally investigate or prosecute any alcohol or drug abuse patient.[facility] HospitalIn the event this information is protected by the Federal Confidentiality of Alcohol and Drug Abuse Patient Records regulations: The Federal rules restrict any use of the information to criminally investigate or prosecute any alcohol or drug abuse patient.[facility] HospitalIn the event this information is protected by the Federal Confidentiality of Alcohol and Drug Abuse Patient Records regulations: The Federal rules restrict any use of the information to criminally investigate or prosecute any alcohol or drug abuse patient.[facility] HospitalIn the event this information is protected by the Federal Confidentiality of Alcohol and Drug Abuse Patient Records regulations: The Federal rules restrict any use of the information to criminally investigate or prosecute any alcohol or drug abuse patient.[facility] HospitalIn the event this information is protected by the Federal Confidentiality of Alcohol and Drug Abuse Patient Records regulations: The Federal rules restrict any use of the information to criminally investigate or prosecute any alcohol or drug abuse patient.[facility] HospitalIn the event this information is protected by the Federal Confidentiality of Alcohol and Drug Abuse Patient Records regulations: The Federal rules restrict any use of the information to criminally investigate or prosecute any alcohol or drug abuse patient.[facility] HospitalIn the event this information is protected by the Federal Confidentiality of Alcohol and Drug Abuse Patient Records regulations: The Federal rules restrict any use of the information to criminally investigate or prosecute any alcohol or drug abuse patient.[facility] HospitalIn the event this information is protected by the Federal Confidentiality of Alcohol and Drug Abuse Patient Records regulations: The Federal rules restrict any use of the information to criminally investigate or prosecute any alcohol or drug abuse patient.[facility] HospitalIn the event this information is protected by the Federal Confidentiality of Alcohol and Drug Abuse Patient Records regulations: The Federal rules restrict any use of the information to criminally investigate or prosecute any alcohol or drug abuse patient.[facility] HospitalIn the event this information is protected by the Federal Confidentiality of Alcohol and Drug Abuse Patient Records regulations: The Federal rules restrict any use of the information to criminally investigate or prosecute any alcohol or drug abuse patient.[facility] HospitalIn the event this information is protected by the Federal Confidentiality of Alcohol and Drug Abuse Patient Records regulations: The Federal rules restrict any use of the information to criminally investigate or prosecute any alcohol or drug abuse patient.[facility] HospitalIn the event this information is protected by the Federal Confidentiality of Alcohol and Drug Abuse Patient Records regulations: The Federal rules restrict any use of the information to criminally investigate or prosecute any alcohol or drug abuse patient.[facility] HospitalIn the event this information is protected by the Federal Confidentiality of Alcohol and Drug Abuse Patient Records regulations: The Federal rules restrict any use of the information to criminally investigate or prosecute any alcohol or drug abuse patient.[facility] HospitalIn the event this information is protected by the Federal Confidentiality of Alcohol and Drug Abuse Patient Records regulations: The Federal rules restrict any use of the information to criminally investigate or prosecute any alcohol or drug abuse patient.[facility] HospitalIn the event this information is protected by the Federal Confidentiality of Alcohol and Drug Abuse Patient Records regulations: The Federal rules restrict any use of the information to criminally investigate or prosecute any alcohol or drug abuse patient.[facility] HospitalIn the event this information is protected by the Federal Confidentiality of Alcohol and Drug Abuse Patient Records regulations: The Federal rules restrict any use of the information to criminally investigate or prosecute any alcohol or drug abuse patient.[facility] HospitalIn the event this information is protected by the Federal Confidentiality of Alcohol and Drug Abuse Patient Records regulations: The Federal rules restrict any use of the information to criminally investigate or prosecute any alcohol or drug abuse patient.[facility] HospitalIn the event this information is protected by the Federal Confidentiality of Alcohol and Drug Abuse Patient Records regulations: The Federal rules restrict any use of the information to criminally investigate or prosecute any alcohol or drug abuse patient.[facility] HospitalIn the event this information is protected by the Federal Confidentiality of Alcohol and Drug Abuse Patient Records regulations: The Federal rules restrict any use of the information to criminally investigate or prosecute any alcohol or drug abuse patient.[facility] HospitalIn the event this information is protected by the Federal Confidentiality of Alcohol and Drug Abuse Patient Records regulations: The Federal rules restrict any use of the information to criminally investigate or prosecute any alcohol or drug abuse patient.[facility] HospitalIn the event this information is protected by the Federal Confidentiality of Alcohol and Drug Abuse Patient Records regulations: The Federal rules restrict any use of the information to criminally investigate or prosecute any alcohol or drug abuse patient.[facility] HospitalIn the event this information is protected by the Federal Confidentiality of Alcohol and Drug Abuse Patient Records regulations: The Federal rules restrict any use of the information to criminally investigate or prosecute any alcohol or drug abuse patient.[facility] HospitalIn the event this information is protected by the Federal Confidentiality of Alcohol and Drug Abuse Patient Records regulations: The Federal rules restrict any use of the information to criminally investigate or prosecute any alcohol or drug abuse patient.[facility] HospitalIn the event this information is protected by the Federal Confidentiality of Alcohol and Drug Abuse Patient Records regulations: The Federal rules restrict any use of the information to criminally investigate or prosecute any alcohol or drug abuse patient.[facility] HospitalIn the event this information is protected by the Federal Confidentiality of Alcohol and Drug Abuse Patient Records regulations: The Federal rules restrict any use of the information to criminally investigate or prosecute any alcohol or drug abuse patient.[facility] HospitalIn the event this information is protected by the Federal Confidentiality of Alcohol and Drug Abuse Patient Records regulations: The Federal rules restrict any use of the information to criminally investigate or prosecute any alcohol or drug abuse patient.[facility] HospitalIn the event this information is protected by the Federal Confidentiality of Alcohol and Drug Abuse Patient Records regulations: The Federal rules restrict any use of the information to criminally investigate or prosecute any alcohol or drug abuse patient.[facility] HospitalIn the event this information is protected by the Federal Confidentiality of Alcohol and Drug Abuse Patient Records regulations: The Federal rules restrict any use of the information to criminally investigate or prosecute any alcohol or drug abuse patient.[facility] HospitalIn the event this information is protected by the Federal Confidentiality of Alcohol and Drug Abuse Patient Records regulations: The Federal rules restrict any use of the information to criminally investigate or prosecute any alcohol or drug abuse patient.[facility] HospitalIn the event this information is protected by the Federal Confidentiality of Alcohol and Drug Abuse Patient Records regulations: The Federal rules restrict any use of the information to criminally investigate or prosecute any alcohol or drug abuse patient.[facility] HospitalIn the event this information is protected by the Federal Confidentiality of Alcohol and Drug Abuse Patient Records regulations: The Federal rules restrict any use of the information to criminally investigate or prosecute any alcohol or drug abuse patient.[facility] HospitalIn the event this information is protected by the Federal Confidentiality of Alcohol and Drug Abuse Patient Records regulations: The Federal rules restrict any use of the information to criminally investigate or prosecute any alcohol or drug abuse patient.[facility] HospitalIn the event this information is protected by the Federal Confidentiality of Alcohol and Drug Abuse Patient Records regulations: The Federal rules restrict any use of the information to criminally investigate or prosecute any alcohol or drug abuse patient.[facility] HospitalIn the event this information is protected by the Federal Confidentiality of Alcohol and Drug Abuse Patient Records regulations: The Federal rules restrict any use of the information to criminally investigate or prosecute any alcohol or drug abuse patient.[facility] HospitalIn the event this information is protected by the Federal Confidentiality of Alcohol and Drug Abuse Patient Records regulations: The Federal rules restrict any use of the information to criminally investigate or prosecute any alcohol or drug abuse patient.[facility] HospitalIn the event this information is protected by the Federal Confidentiality of Alcohol and Drug Abuse Patient Records regulations: The Federal rules restrict any use of the information to criminally investigate or prosecute any alcohol or drug abuse patient.[facility] HospitalIn the event this information is protected by the Federal Confidentiality of Alcohol and Drug Abuse Patient Records regulations: The Federal rules restrict any use of the information to criminally investigate or prosecute any alcohol or drug abuse patient.[facility] HospitalIn the event this information is protected by the Federal Confidentiality of Alcohol and Drug Abuse Patient Records regulations: The Federal rules restrict any use of the information to criminally investigate or prosecute any alcohol or drug abuse patient.[facility] HospitalIn the event this information is protected by the Federal Confidentiality of Alcohol and Drug Abuse Patient Records regulations: The Federal rules restrict any use of the information to criminally investigate or prosecute any alcohol or drug abuse patient.[facility] HospitalIn the event this information is protected by the Federal Confidentiality of Alcohol and Drug Abuse Patient Records regulations: The Federal rules restrict any use of the information to criminally investigate or prosecute any alcohol or drug abuse patient.[facility] HospitalIn the event this information is protected by the Federal Confidentiality of Alcohol and Drug Abuse Patient Records regulations: The Federal rules restrict any use of the information to criminally investigate or prosecute any alcohol or drug abuse patient.[facility] HospitalIn the event this information is protected by the Federal Confidentiality of Alcohol and Drug Abuse Patient Records regulations: The Federal rules restrict any use of the information to criminally investigate or prosecute any alcohol or drug abuse patient.[facility] HospitalIn the event this information is protected by the Federal Confidentiality of Alcohol and Drug Abuse Patient Records regulations: The Federal rules restrict any use of the information to criminally investigate or prosecute any alcohol or drug abuse patient.[facility] HospitalIn the event this information is protected by the Federal Confidentiality of Alcohol and Drug Abuse Patient Records regulations: The Federal rules restrict any use of the information to criminally investigate or prosecute any alcohol or drug abuse patient.[facility] HospitalIn the event this information is protected by the Federal Confidentiality of Alcohol and Drug Abuse Patient Records regulations: The Federal rules restrict any use of the information to criminally investigate or prosecute any alcohol or drug abuse patient.[facility] HospitalIn the event this information is protected by the Federal Confidentiality of Alcohol and Drug Abuse Patient Records regulations: The Federal rules restrict any use of the information to criminally investigate or prosecute any alcohol or drug abuse patient.[facility] HospitalIn the event this information is protected by the Federal Confidentiality of Alcohol and Drug Abuse Patient Records regulations: The Federal rules restrict any use of the information to criminally investigate or prosecute any alcohol or drug abuse patient.[facility] HospitalIn the event this information is protected by the Federal Confidentiality of Alcohol and Drug Abuse Patient Records regulations: The Federal rules restrict any use of the information to criminally investigate or prosecute any alcohol or drug abuse patient.[facility] HospitalIn the event this information is protected by the Federal Confidentiality of Alcohol and Drug Abuse Patient Records regulations: The Federal rules restrict any use of the information to criminally investigate or prosecute any alcohol or drug abuse patient.[facility] HospitalIn the event this information is protected by the Federal Confidentiality of Alcohol and Drug Abuse Patient Records regulations: The Federal rules restrict any use of the information to criminally investigate or prosecute any alcohol or drug abuse patient.[facility] HospitalIn the event this information is protected by the Federal Confidentiality of Alcohol and Drug Abuse Patient Records regulations: The Federal rules restrict any use of the information to criminally investigate or prosecute any alcohol or drug abuse patient.[facility] HospitalIn the event this information is protected by the Federal Confidentiality of Alcohol and Drug Abuse Patient Records regulations: The Federal rules restrict any use of the information to criminally investigate or prosecute any alcohol or drug abuse patient.[facility] HospitalIn the event this information is protected by the Federal Confidentiality of Alcohol and Drug Abuse Patient Records regulations: The Federal rules restrict any use of the information to criminally investigate or prosecute any alcohol or drug abuse patient.[facility] HospitalIn the event this information is protected by the Federal Confidentiality of Alcohol and Drug Abuse Patient Records regulations: The Federal rules restrict any use of the information to criminally investigate or prosecute any alcohol or drug abuse patient.[facility] HospitalIn the event this information is protected by the Federal Confidentiality of Alcohol and Drug Abuse Patient Records regulations: The Federal rules restrict any use of the information to criminally investigate or prosecute any alcohol or drug abuse patient.[facility] HospitalIn the event this information is protected by the Federal Confidentiality of Alcohol and Drug Abuse Patient Records regulations: The Federal rules restrict any use of the information to criminally investigate or prosecute any alcohol or drug abuse patient.[facility] HospitalIn the event this information is protected by the Federal Confidentiality of Alcohol and Drug Abuse Patient Records regulations: The Federal rules restrict any use of the information to criminally investigate or prosecute any alcohol or drug abuse patient.[facility] HospitalIn the event this information is protected by the Federal Confidentiality of Alcohol and Drug Abuse Patient Records regulations: The Federal rules restrict any use of the information to criminally investigate or prosecute any alcohol or drug abuse patient.[facility] HospitalIn the event this information is protected by the Federal Confidentiality of Alcohol and Drug Abuse Patient Records regulations: The Federal rules restrict any use of the information to criminally investigate or prosecute any alcohol or drug abuse patient.[facility] HospitalIn the event this information is protected by the Federal Confidentiality of Alcohol and Drug Abuse Patient Records regulations: The Federal rules restrict any use of the information to criminally investigate or prosecute any alcohol or drug abuse patient.[facility] HospitalIn the event this information is protected by the Federal Confidentiality of Alcohol and Drug Abuse Patient Records regulations: The Federal rules restrict any use of the information to criminally investigate or prosecute any alcohol or drug abuse patient.[facility] HospitalIn the event this information is protected by the Federal Confidentiality of Alcohol and Drug Abuse Patient Records regulations: The Federal rules restrict any use of the information to criminally investigate or prosecute any alcohol or drug abuse patient.[facility] HospitalIn the event this information is protected by the Federal Confidentiality of Alcohol and Drug Abuse Patient Records regulations: The Federal rules restrict any use of the information to criminally investigate or prosecute any alcohol or drug abuse patient.[facility] HospitalIn the event this information is protected by the Federal Confidentiality of Alcohol and Drug Abuse Patient Records regulations: The Federal rules restrict any use of the information to criminally investigate or prosecute any alcohol or drug abuse patient.[facility] HospitalIn the event this information is protected by the Federal Confidentiality of Alcohol and Drug Abuse Patient Records regulations: The Federal rules restrict any use of the information to criminally investigate or prosecute any alcohol or drug abuse patient.[facility] HospitalIn the event this information is protected by the Federal Confidentiality of Alcohol and Drug Abuse Patient Records regulations: The Federal rules restrict any use of the information to criminally investigate or prosecute any alcohol or drug abuse patient.[facility] HospitalIn the event this information is protected by the Federal Confidentiality of Alcohol and Drug Abuse Patient Records regulations: The Federal rules restrict any use of the information to criminally investigate or prosecute any alcohol or drug abuse patient.[facility] HospitalIn the event this information is protected by the Federal Confidentiality of Alcohol and Drug Abuse Patient Records regulations: The Federal rules restrict any use of the information to criminally investigate or prosecute any alcohol or drug abuse patient.[facility] HospitalIn the event this information is protected by the Federal Confidentiality of Alcohol and Drug Abuse Patient Records regulations: The Federal rules restrict any use of the information to criminally investigate or prosecute any alcohol or drug abuse patient.[facility] HospitalIn the event this information is protected by the Federal Confidentiality of Alcohol and Drug Abuse Patient Records regulations: The Federal rules restrict any use of the information to criminally investigate or prosecute any alcohol or drug abuse patient.[facility] HospitalIn the event this information is protected by the Federal Confidentiality of Alcohol and Drug Abuse Patient Records regulations: The Federal rules restrict any use of the information to criminally investigate or prosecute any alcohol or drug abuse patient.[facility] HospitalIn the event this information is protected by the Federal Confidentiality of Alcohol and Drug Abuse Patient Records regulations: The Federal rules restrict any use of the information to criminally investigate or prosecute any alcohol or drug abuse patient.[facility] HospitalIn the event this information is protected by the Federal Confidentiality of Alcohol and Drug Abuse Patient Records regulations: The Federal rules restrict any use of the information to criminally investigate or prosecute any alcohol or drug abuse patient.[facility] HospitalIn the event this information is protected by the Federal Confidentiality of Alcohol and Drug Abuse Patient Records regulations: The Federal rules restrict any use of the information to criminally investigate or prosecute any alcohol or drug abuse patient.[facility] HospitalIn the event this information is protected by the Federal Confidentiality of Alcohol and Drug Abuse Patient Records regulations: The Federal rules restrict any use of the information to criminally investigate or prosecute any alcohol or drug abuse patient.[facility] HospitalIn the event this information is protected by the Federal Confidentiality of Alcohol and Drug Abuse Patient Records regulations: The Federal rules restrict any use of the information to criminally investigate or prosecute any alcohol or drug abuse patient.[facility] HospitalIn the event this information is protected by the Federal Confidentiality of Alcohol and Drug Abuse Patient Records regulations: The Federal rules restrict any use of the information to criminally investigate or prosecute any alcohol or drug abuse patient.[facility] HospitalIn the event this information is protected by the Federal Confidentiality of Alcohol and Drug Abuse Patient Records regulations: The Federal rules restrict any use of the information to criminally investigate or prosecute any alcohol or drug abuse patient.[facility] HospitalIn the event this information is protected by the Federal Confidentiality of Alcohol and Drug Abuse Patient Records regulations: The Federal rules restrict any use of the information to criminally investigate or prosecute any alcohol or drug abuse patient.[facility] HospitalIn the event this information is protected by the Federal Confidentiality of Alcohol and Drug Abuse Patient Records regulations: The Federal rules restrict any use of the information to criminally investigate or prosecute any alcohol or drug abuse patient.[facility] HospitalIn the event this information is protected by the Federal Confidentiality of Alcohol and Drug Abuse Patient Records regulations: The Federal rules restrict any use of the information to criminally investigate or prosecute any alcohol or drug abuse patient.[facility] HospitalIn the event this information is protected by the Federal Confidentiality of Alcohol and Drug Abuse Patient Records regulations: The Federal rules restrict any use of the information to criminally investigate or prosecute any alcohol or drug abuse patient.[facility] HospitalIn the event this information is protected by the Federal Confidentiality of Alcohol and Drug Abuse Patient Records regulations: The Federal rules restrict any use of the information to criminally investigate or prosecute any alcohol or drug abuse patient.[facility] HospitalIn the event this information is protected by the Federal Confidentiality of Alcohol and Drug Abuse Patient Records regulations: The Federal rules restrict any use of the information to criminally investigate or prosecute any alcohol or drug abuse patient.[facility] HospitalIn the event this information is protected by the Federal Confidentiality of Alcohol and Drug Abuse Patient Records regulations: The Federal rules restrict any use of the information to criminally investigate or prosecute any alcohol or drug abuse patient.[facility] HospitalIn the event this information is protected by the Federal Confidentiality of Alcohol and Drug Abuse Patient Records regulations: The Federal rules restrict any use of the information to criminally investigate or prosecute any alcohol or drug abuse patient.[facility] HospitalIn the event this information is protected by the Federal Confidentiality of Alcohol and Drug Abuse Patient Records regulations: The Federal rules restrict any use of the information to criminally investigate or prosecute any alcohol or drug abuse patient.[facility] HospitalIn the event this information is protected by the Federal Confidentiality of Alcohol and Drug Abuse Patient Records regulations: The Federal rules restrict any use of the information to criminally investigate or prosecute any alcohol or drug abuse patient.[facility] HospitalIn the event this information is protected by the Federal Confidentiality of Alcohol and Drug Abuse Patient Records regulations: The Federal rules restrict any use of the information to criminally investigate or prosecute any alcohol or drug abuse patient.[facility] HospitalIn the event this information is protected by the Federal Confidentiality of Alcohol and Drug Abuse Patient Records regulations: The Federal rules restrict any use of the information to criminally investigate or prosecute any alcohol or drug abuse patient.[facility] HospitalIn the event this information is protected by the Federal Confidentiality of Alcohol and Drug Abuse Patient Records regulations: The Federal rules restrict any use of the information to criminally investigate or prosecute any alcohol or drug abuse patient.[facility] HospitalIn the event this information is protected by the Federal Confidentiality of Alcohol and Drug Abuse Patient Records regulations: The Federal rules restrict any use of the information to criminally investigate or prosecute any alcohol or drug abuse patient.[facility] HospitalIn the event this information is protected by the Federal Confidentiality of Alcohol and Drug Abuse Patient Records regulations: The Federal rules restrict any use of the information to criminally investigate or prosecute any alcohol or drug abuse patient.[facility] HospitalIn the event this information is protected by the Federal Confidentiality of Alcohol and Drug Abuse Patient Records regulations: The Federal rules restrict any use of the information to criminally investigate or prosecute any alcohol or drug abuse patient.[facility] HospitalIn the event this information is protected by the Federal Confidentiality of Alcohol and Drug Abuse Patient Records regulations: The Federal rules restrict any use of the information to criminally investigate or prosecute any alcohol or drug abuse patient.[facility] HospitalIn the event this information is protected by the Federal Confidentiality of Alcohol and Drug Abuse Patient Records regulations: The Federal rules restrict any use of the information to criminally investigate or prosecute any alcohol or drug abuse patient.[facility] HospitalIn the event this information is protected by the Federal Confidentiality of Alcohol and Drug Abuse Patient Records regulations: The Federal rules restrict any use of the information to criminally investigate or prosecute any alcohol or drug abuse patient.[facility] HospitalIn the event this information is protected by the Federal Confidentiality of Alcohol and Drug Abuse Patient Records regulations: The Federal rules restrict any use of the information to criminally investigate or prosecute any alcohol or drug abuse patient.[facility] HospitalIn the event this information is protected by the Federal Confidentiality of Alcohol and Drug Abuse Patient Records regulations: The Federal rules restrict any use of the information to criminally investigate or prosecute any alcohol or drug abuse patient.[facility] HospitalIn the event this information is protected by the Federal Confidentiality of Alcohol and Drug Abuse Patient Records regulations: The Federal rules restrict any use of the information to criminally investigate or prosecute any alcohol or drug abuse patient.[facility] HospitalIn the event this information is protected by the Federal Confidentiality of Alcohol and Drug Abuse Patient Records regulations: The Federal rules restrict any use of the information to criminally investigate or prosecute any alcohol or drug abuse patient.[facility] Reason for Visit (unrecogniz ed section and content) Reason Comments Nausea & Vomiting diarrhea, bodyaches, chills and fever, dizziness x 5 days Reason Comments Orders Medication/labs Reason Comments Refill Request Reason Comments Obesity New Patient Reason Comments Obesity Weight Loss Surgery Reason Comments EKG Specialty Diagnoses / Procedures Referred By Contac t Referred To Contact [facility] [place] Diagnoses Body mass index 40.0-44.9, adult (HCC) Procedures ECG COMPLETE ECG ROUTINE ECG W/LEAST 12 LDS W/I&R Cristy Platt, RAYMOND.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 [address] [place] [address] [address] [place] [address] Referral ID Status Reason Start Date Expiration Date V isits Requested Visits Authorized [id number] Closed Auto-Generate d Referral 05/28/2022 05/28/2023 1 [...] <14 WEEKS LTD US UTERUS LIMITED FETUSES Yovani Mora MD [address] [place] [address] [place] [address] Referral ID Status Reason Start Date Expiration Date V isits Requested Visits Authorized [id number] Closed Auto-Generate d Referral 12/01/2022 12/31/2023 1 1 Reason Comments Radiology US Specialty Diagnoses / Procedures [facility] Diagnoses Breast cyst, left Procedures US BREAST LTD LEFT US BREAST UNI REAL TIME WITH IMAGE LIMITED Kayy Longo APRN.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 [address] [place] [address] [facility] [address] [place] [address] Referral ID Status Reason Start Date Expiration Date V isits Requested Visits Authorized [id number] Closed Auto-Generate d Referral 10/16/2022 11/15/2023 1 1 Reason Onset Date Comments Care 01/29/2023 Reason Comments Vomiting Reason Onset Date Comments Care 04/28/2023 Reason Comments Results Reason Comments Blood Management Reason Comments Breast Pump Reason Onset Date Comments Care 05/19/2023 Reason Comments PRAF Reason Comments Non-Chemotherapy Treatment Specialty Diagnoses / Procedures [facility] Referred To Contact Diagnoses Maternal iron deficiency anemia complicating , third trimester Impaired intestinal absorption Procedures IRON SUCROSE INJECTION PER 1 MG Génesis Jules MD [address] [place] [address] [facility] [address] [place] [address] Referral ID Status Reason Start Date Expiration Date V isits Requested Visits Authorized [id number] Authorized 05/04/2023 10/31/2023 5 5 Reason Comments Assessment Patient Education Specialty Diagnoses / Procedures Referred By Contac t Referred To Contact Diagnoses Gestational diabetes mellitus, class A1 Procedures CONSULT TO GESTATIONAL/ ITINERANT TEACHER ASSISTANT OFFICE/OUTPATIENT [facility] 60 MINUTES Génesis Jules MD [address] [place] [address] Referral ID Status Reason Start Date Expiration Date V isits Requested Visits Authorized [id number] Closed PCP Requested Referral Auto-Generated Referral 05/19/2023 05/18/2024 1 1 Reason Comments US Specialty Diagnoses / Procedures Referred By Contac t Referred To Contact [facility] Diagnoses Supervision of high risk in second trimester History of gastric bypass Procedures OBSTETRIC ULTRASOUND WHI US PREG UTERUS AFTER 1ST TRIMEST GESTATION Génesis Jules MD [address] [place] [address] [facility] [address] [place] [address] Referral ID Status Reason Start Date Expiration Date V isits Requested Visits Authorized [id number] Closed Auto-Generate d Referral 03/31/2023 03/30/2024 4 1 Reason Onset Date Comments Care 05/26/2023 Reason Comments Insurance Authorization Reason Comments Insulin Gilbert Reason Onset Date Comments Care 06/01/2023 Reason Comments Appointment Specialty Diagnoses / Procedures Referred By Contac t Referred To Contact [facility] Diagnoses Insulin controlled gestational diabetes mellitus (GDM) in third trimester Polyhydramnios in third trimester complication, single or unspecified fetus Procedures OBSTETRIC ULTRASOUND WHI US PREG UTERUS AFTER 1ST TRIMEST GESTATION Génesis Jules MD [address] [place] [address] [facility] [address] [place] [address] Referral ID Status Reason Start Date Expiration Date V isits Requested Visits Authorized [id number] Closed Auto-Generate d Referral 05/26/2023 05/25/2024 2 1 Reason Onset Date Comments Care 06/07/2023 Reason Onset Date Comments Care 06/14/2023 Specialty Diagnoses / Procedures Referred By [place] t Referred To Contact [facility] Diagnoses Insulin controlled gestational diabetes mellitus (GDM) in third trimester Polyhydramnios in third trimester complication, single or unspecified fetus History of gastric bypass 31 weeks gestation of Procedures BIOPHYSICAL PROFILE US WHI BIOPHYSICAL PROFILE NON-STRESS TESTING Génesis Jules MD [address] [place] [address] [facility] [address] [place] [address] Referral ID Status Reason Start Date Expiration Date V isits Requested Visits Authorized [id number] Closed Auto-Generate d Referral 05/26/2023 05/25/2024 10 [...] Referred To Contact Radiology / [facility] Diagnoses ML Procedures XR CHEST Cristy Platt, INDUSTRIAL WELDER.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 [address] [place] [address] [facility] [address] [place] [address] Referral ID Status Reason Start Date Expiration Date Visits Re quested Visits Authorized [id number] Closed 06/02/2022 03/14/2023 1 1 Reason Comments Radiology XR Reason Comments Missed Menses Reason Comments Follow Up Reason Comments Medication Question Reason Comments test Reason Comments Initial OB Visit Reason Comments Tissue Rewinder - Other PRAF Reason Comments Orders Reason Onset Date Comments Care 04/26/2024 Specialty Diagnoses / Procedures Referred By Contac t Referred To Contact [facility] Diagnoses 8 weeks gestation of Procedures OBSTETRIC ULTRASOUND WHI US PREG UTERUS AFTER 1ST TRIMEST GESTATION Kayy Longo, INDUSTRIAL WELDER.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 [address] [place] [address] Phone: tel: fax: [address] [phone] Referral ID Status Reason Start Date Expiration Date V isits Requested Visits Authorized [id number] Closed Auto-Generate d Referral 03/31/2024 03/31/2025 1 1 Reason Onset Date Comments Care 05/31/2024 Specialty Diagnoses / Procedures Referred By Contac t Referred To Contact Diagnoses Maternal iron deficiency anemia complicating , second trimester (HCC) Impaired intestinal absorption (HCC) History of gastric bypass Procedures IRON SUCROSE INJECTION PER 1 MG Yovani Mora MD [address] [place] [address] Phone: tel: fax: Yovani Mora MD [address] [place] [address] Phone: tel: fax: Referral ID Status Reason Start Date Expiration Date V isits Requested Visits Authorized [id number] Authorized 06/06/2024 12/03/2024 99 99 Reason Onset Date Comments Care 06/23/2024 Specialty Diagnoses / Procedures Referred By Contac t Referred To Contact [facility] Diagnoses Encounter for anatomic survey (HCC) Procedures OBSTETRIC ULTRASOUND WHI US PREG UTERUS AFTER 1ST TRIMEST 1/ GESTATION Kayy Longo APRN.[employer]OR[employer] [address] [place] [address] Phone: tel: fax: [address] [address] Referral ID Status Reason Start Date Expiration Date V isits Requested Visits Authorized [id number] Closed Auto-Generate d Referral 03/31/2024 03/31/2025 1 1 Reason Comments Tissue Rewinder - Other Prior Auth for HumuLin N kwik Pen 100u/ML Reason Comments Insurance Authorization (HUMULIN N NPH I NSULIN KWIKPEN) 100 unit/mL - Insurance Approval Reason Comments Gestational Diabetes Specialty Diagnoses / Procedures Referred By Contac t Referred To Contact Endocrinology / ENDOCRINOLOGY Diagnoses Insulin controlled gestational diabetes mellitus (GDM) in second trimester ([facility]) 20 weeks gestation of ([facility]) Procedures CONSULT TO ENDOCRINOLOGY OFFICE/OUTPATIENT NEW HIGH [facility] 60 MINUTES Inna Garcia MD [address] [place] [address] Phone: tel: fax: Eddi Sneed MD [address] [place] [address] Phone: tel: fax: Referral ID Status Reason Start Date Expiration Date V isits Requested Visits Authorized [id number] Closed PCP Requested Referral 06/21/2024 03/14/2025 1 1 Reason Onset Date Comments Care 07/24/2024 Reason Onset Date Comments Care 08/14/2024 Specialty Diagnoses / Procedures Referred By Contac t Referred To Contact [facility] Diagnoses Insulin controlled gestational diabetes mellitus (GDM) in second trimester ([facility]) 25 weeks gestation of ([facility]) Supervision of high risk in second trimester ([facility]) Procedures OBSTETRIC ULTRASOUND WHI US PREG UTERUS AFTER 1ST TRIMEST GESTATION Génesis Jules MD [address] [place] [address] Phone: tel: fax: [facility] [address] [place] [address] Referral ID Status Reason Start Date Expiration Date V isits Requested Visits Authorized [id number] Closed Auto-Generate d Referral 07/24/2024 07/24/2025 8 1 Reason Onset Date Comments Care 08/29/2024 Reason Onset Date Comments Care 09/07/2024 Reason Onset Date Comments Care 09/21/2024 Reason Comments follow-up L&D Care Teams (unrecognized sec tion and content) [employer] Principal Relationship Specialty Start Date End Date Shakeel Villasenor MD [address] [place] [address] PCP - General Family Practice 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 Relationship 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 Start Date End Date Shakeel Villasenor MD [address] [place] [address] PCP - General Family Practice 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 Relationship Specialty Start Date End Date Shakeel Villasenor MD [address] [facility] [place] [address] PCP - General Family Practice 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 Relationship Specialty Start Date End Date Shakeel Villasenor MD [address] [facility] [place] [address] PCP - General Family Practice 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 Relationship Specialty Start Date End Date Shakeel Villasenor MD [facility] [place] [address] PCP - General Family Practice 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 Relationship Specialty Start Date End Date Shakeel Villasenor MD [address] [place] [address] PCP - General Family Medicine 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 Relationship Specialty Start Date End Date Shakeel Villasenor MD [facility] [place] [address] PCP - General Family Medicine 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 Relationship Specialty Start Date End Date Shakeel Villasenor MD [facility] [place] [address] PCP - General Family Medicine 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 Relationship Specialty Start Date End Date Shakeel Villasenor MD [facility] [place] [address] PCP - General Family Medicine 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 Relationship Specialty Start Date End Date Shakeel Villasenor MD [address] [place] [address] [place] [address] PCP - General Family Medicine 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 Relationship Specialty Start Date End Date Shakeel Villasenor MD [address] [place] [address] PCP - General Family Medicine 03/20/21 Team Status: Active Member Role Status Dates No Primary Care Physician Family Provider Active No Primary Care Physician Primary Care Provider Active Team Status: Inactive Member Role Status Dates No Primary Care Physician Primary Care Provider Active Dr. Davion Calvo , DO Emergency Provider Active [employer] Principal Relationship Specialty Start Date End Date Shakeel Villasenor MD [address] [place] [address] PCP - General Family Medicine 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 Relationship Specialty Start Date End Date Shakeel Villasenor MD [address] [place] [address] PCP - General Family Medicine 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 Relationship Specialty Start Date End Date Shakeel Villasenor MD [address] [place] [address] PCP - General Family Medicine 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 Relationship Specialty Start Date End Date Shakeel Villasenor MD [address] [place] [address] PCP - General Family Medicine 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 Relationship Specialty Start Date End Date Shakeel Villasenor MD [address] [place] [address] PCP - General Family Medicine 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 Relationship Specialty Start Date End Date Shakeel Villasenor MD [address] [place] [address] PCP - General Family Medicine 03/20/21 Team Status: Inactive Member Role Status Dates No Primary Care Physician Primary Care Provider Active Dr. Davion Calvo , DO Attending Provider, Emergency Provider Active Team Status: Inactive Member Role Status Dates No Primary Care Physician Primary Care Provider Active Dr. Ru Oden MD Emergency Provider Active [employer] Principal Relationship Specialty Start Date End Date Shakeel Villasenor MD [address] [place] [address] PCP - General Family Medicine 03/20/21 Team Status: Inactive Member Role Status Dates No Primary Care Physician Primary Care Provider Active Dr. Ru Oden MD Attending Provider, Referring Provi franklin Active Team Status: Inactive Member Role Status Dates No Primary Care Physician Primary Care Provider Active Dr. Ru Oden MD Attending Provider, Emergency Provi franklin Active [employer] Principal Relationship Specialty Start Date End Date Shakeel Villasenor MD [address] [place] [address] PCP - General Family Medicine 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 Relationship Specialty Start Date End Date Shakeel Villasenor MD [address] [place] [address] PCP - General Family Medicine 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 Relationship Specialty Start Date End Date Shakeel Villasenor MD [address] [place] [address] PCP - General Family Medicine 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 Relationship Specialty Start Date End Date Shakeel Villasenor MD [address] [place] [address] PCP - General Family Medicine 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 Relationship Specialty Start Date End Date Shakeel Villasenor MD [address] [place] [address] PCP - General Family Medicine 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 Relationship Specialty Start Date End Date Shakeel Villasenor MD [address] [place] [address] PCP - General Family Medicine 03/20/21 Team Status: Active Member Role Status Dates No Primary Care Physician Family Provider Active Natalie LUCAS PA Primary Care Provider Active Team Status: Inactive Member Role Status Dates Natalie LUCAS PA Primary Care Provider Active Dr. Ru Oden MD Emergency Provider Active Team Status: Inactive Member Role Status Dates No Primary Care Physician Primary Care Provider Active Dr. Rito Bloom , Attending Provider, Emergency P rovider Active Team Status: Inactive Member Role Status Dates Dr. Rito Bloom , Attending Provider, Emergency P rovider Active Natalie LUCAS PA Primary Care Provider Active Team Status: Inactive Member Role Status Dates Natalie LUCAS PA Primary Care Provider Active Dr. Ru Oedn MD Attending Provider, Emergency Provi franklin Active Team Status: Inactive Member Role Status Dates Natalie LUCAS PA Primary Care Provider Active Dr. Jeff Thakur DO Emergency Provider Active [employer] Principal Relationship Specialty Start Date End Date Shakeel Villasenor MD [address] [place] [address] PCP - General Family Medicine 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 Relationship Specialty Start Date End Date Shakeel Villasenor MD [address] [place] [address] PCP - General Family Medicine 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 Relationship Specialty Start Date End Date Shakeel Villasenor MD [address] [place] [address] PCP - General Family Medicine 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 Relationship Specialty Start Date End Date Shakeel Villasenor MD [address] [place] [address] PCP - General Family Medicine 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 Relationship Specialty Start Date End Date Shakeel Villasenor MD [address] [place] [address] PCP - General Family Medicine 03/20/21 Team Status: Inactive Member Role Status Dates SHAYY Silverio Primary Care Provider Active Dr. Jeff Thakur DO Attending Provider, Eric vela Active Team Status: Inactive Member Role Status Dates SHAYY Silverio Primary Care Provider Active Kalpana Laguerre CNM Attending Provider, Referring Pr hetal Active [employer] School Principal Relationship Specialty Start Date End Date Shakeel Villasenor MD [address] [place] [address] PCP - General Family Medicine 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 Relationship Specialty Start Date End Date Shakeel Villasenor MD [address] [place] [address] PCP - General Family Medicine 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 Relationship Specialty Start Date End Date Shakeel Villasenor MD [address] [place] [address] PCP - General Family Medicine 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 Relationship Specialty Start Date End Date Shakeel Villasenor MD [address] [place] [address] PCP - General Family Medicine 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 Relationship Specialty Start Date End Date Shakeel Villasenor MD [address] [place] [address] PCP - General Family Medicine 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 Relationship Specialty Start Date End Date Shakeel Villasenor MD [address] [place] [address] PCP - General Family Medicine 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 Relationship Specialty Start Date End Date Shakeel Villasenor MD [address] [place] [address] PCP - General Family Medicine 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 Relationship Specialty Start Date End Date Shakeel Villasenor MD [address] [place] [address] PCP - General Family Medicine 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 Relationship Specialty Start Date End Date Shakeel Villasenor MD [address] [place] [address] PCP - General Family Medicine 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 Relationship Specialty Start Date End Date Shakeel Villasenor MD [address] [place] [address] PCP - General Family Medicine 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 Relationship Specialty Start Date End Date Shakeel Villasenor MD [address] [place] [address] PCP - General Family Medicine 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 Relationship Specialty Start Date End Date Shakeel Villasenor MD [address] [place] [address] PCP - General Family Medicine 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 Relationship Specialty Start Date End Date Shakeel Villasenor MD [address] [place] [address] PCP - General Family Medicine 03/20/21 Team Status: Inactive Member Role Status Dates Natalie LUCAS, PA Primary Care Provider Active Dr. Inna Garcia MD Admit Provider, Attending Provider, Referring Provider Active [employer] Principal Relationship Specialty Start Date End Date Shakeel Villasenor MD [address] [place] [address] PCP - General Family Medicine 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 Relationship Specialty Start Date End Date Shakeel Villasenor MD [address] [place] [address] PCP - General Family Medicine 03/20/21 Team Status: Inactive Member Role Status Dates SHAYY Silverio Primary Care Provider Active Dr. Génesis Wang MD Attending Provider, Referring Provider Active Team Status: Inactive Member Role Status Dates SHAYY Silverio Primary Care Provider Active Kimi Smith CNM Attending Provider, Referring Prov ider Active [employer] Principal Relationship Specialty Start Date End Date Shakeel Villasenor MD [address] [place] [address] PCP - General Family Medicine 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 Relationship Specialty Start Date End Date Shakeel Villasenor MD [address] [place] [address] PCP - General Family Medicine 03/20/21 Team Status: Inactive Member Role Status Dates SHAYY Silverio Primary Care Provider Active Dr. Sandra Edwards , DO Admit Provider, Attending Provid er Active [employer] Principal Relationship Specialty Start Date End Date Shakeel Villasenor MD [address] [place] [address] PCP - General Family Medicine 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 Relationship Specialty Start Date End Date Shakeel Villasenor MD [address] [place] [address] PCP - General Family Medicine 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 Relationship Specialty Start Date End Date Shakeel Villasenor MD [address] [facility] [place] [address] PCP - General Family Medicine 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 Relationship Specialty Start Date End Date Shakeel Villasenor MD [address] [facility] [place] [address] PCP - General Family Medicine 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 Relationship Specialty Start Date End Date Shakeel Villasenor MD [address] [facility] [place] [address] PCP - General Family Medicine 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 Relationship Specialty Start Date End Date Shakeel Villasenor MD [address] [facility] [place] [address] PCP - General Family Medicine 06/22/18 11/26/20 Middle School Principal Relationship Specialty Start Date End Date Shakeel Villasenor MD [address] [place] [address] PCP - General Family Medicine 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 Relationship Specialty Start Date End Date Shakeel Villasenor MD [address] [facility] [place] [address] PCP - General Family Medicine 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 Relationship Specialty Start Date End Date Shakeel Villasenor MD [address] [place] [address] PCP - General Family Medicine 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 Relationship Specialty Start Date End Date Shakeel Villasenor MD [address] [facility] [place] [address] PCP - General Family Medicine 03/20/21 Lea Marie, INDUSTRIAL WELDER.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 [address] [place] [address] Riding Instructor Family Medicine 02/19/24 Natalie Blum PA-C [address] [facility] [place] [address] Riding Instructor Family Medicine 02/19/24 Middle School Principal Relationship Specialty Start Date End Date Shakeel Villasenor MD [address] [place] [address] PCP - General Family Medicine 03/20/21 Lea Marie, RAYMOND.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 [address] [place] [address] Riding Instructor Family Medicine 02/19/24 Natalie Blum PA-C [address] [place] [address] Riding Instructor Family Medicine 02/19/24 Middle School Principal Relationship Specialty Start Date End Date Shakeel Villasenor MD [address] [place] [address] PCP - General Family Medicine 03/20/21 Lea Marie, INDUSTRIAL WELDER.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 [address] [place] [address] Riding Instructor Family Medicine 02/19/24 Natalie Blum PA-C [address] [facility] [place] [address] Riding Instructor Family Medicine 02/19/24 Middle School Principal Relationship Specialty Start Date End Date Shakeel Villasenor MD [address] [place] [address] PCP - General Family Medicine 03/20/21 Lea Marie APRN.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 [address] [place] [address] Riding Instructor Family Medicine 02/19/24 Natalie Blum PA-C [address] [place] [address] Riding Instructor Family Medicine 02/19/24 Middle School Principal Relationship Specialty Start Date End Date Shakeel Villasenor MD [address] [place] [address] PCP - General Family Medicine 03/20/21 Lea Marie APRN.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 [address] [place] [address] Riding Instructor Family Medicine 02/19/24 Natalie Blum PA-C [address] [place] [address] Riding Instructor Family Medicine 02/19/24 Middle School Principal Relationship Specialty Start Date End Date Shakeel Villasenor MD [address] [place] [address] PCP - General Family Medicine 03/20/21 Lea Marie INDUSTRIAL WELDER.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 [address] [place] [address] Riding Instructor Family Medicine 02/19/24 Natalie Blum PA-C [address] [place] [address] Riding Instructor Family Medicine 02/19/24 Middle School Principal Relationship Specialty Start Date End Date Shakeel Villasenor MD [address] [facility] [place] [address] PCP - General Family Medicine 03/20/21 Lea Marie, RAYMOND.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 [address] [place] [address] Riding Instructor Family Medicine 02/19/24 Natalie Blum PA-C [address] [place] [address] Riding Instructor Family Medicine 02/19/24 Middle School Principal Relationship Specialty Start Date End Date Shakeel Villasenor MD [address] [place] [address] PCP - General Family Medicine 03/20/21 Lea Marie, INDUSTRIAL WELDER.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 [address] [place] [address] Riding Instructor Family Medicine 02/19/24 Natalie Blum PA-C [address] [facility] [place] [address] Riding Instructor Family Medicine 02/19/24 Middle School Principal Relationship Specialty Start Date End Date Shakeel Villasenor MD [address] [place] [address] PCP - General Family Medicine 03/20/21 Lea Marie, RAYMOND.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 [address] [place] [address] Riding Instructor Family Medicine 02/19/24 Natalie Blum PA-C [address] [place] [address] Riding Instructor Family Medicine 02/19/24 Middle School Principal Relationship Specialty Start Date End Date Shakeel Villasenor MD [address] [place] [address] PCP - General Family Medicine 03/20/21 Lea Marie, INDUSTRIAL WELDER.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 [address] [place] [address] Riding Instructor Family Medicine 02/19/24 Natalie Blum PA-C [address] [place] [address] Riding Instructor Family Medicine 02/19/24 Middle School Principal Relationship Specialty Start Date End Date Shakeel Villasenor MD [address] [place] [address] PCP - General Family Medicine 03/20/21 eLa Marie, INDUSTRIAL WELDER.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 [address] [place] [address] Riding Instructor Family Medicine 02/19/24 Natalie Blum PA-C [address] [place] [address] Riding Instructor Family Medicine 02/19/24 Middle School Principal Relationship Specialty Start Date End Date Lea Marie, INDUSTRIAL WELDER.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 [address] [place] [address] Riding Instructor Family Medicine 02/19/24 Natalie Blum PA-C [address] [place] [address] Riding Instructor Family Medicine 02/19/24 Middle School Principal Relationship Specialty Start Date End Date Lea Marie, RAYMOND.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 [address] [place] [address] [facility] 02/19/24 Natalie Blum PA-C [address] [place] [address] [facility] Middle School Principal Relationship Specialty Start Date End Date Lea Marie, INDUSTRIAL WELDER.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 [address] [place] [address] [facility] 02/19/24 Natalie Blum PA-C [address] [place] [address] [facility] 02/19/24 Middle School Principal Relationship Specialty Start Date End Date Lea Marie, INDUSTRIAL WELDER.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 [address] [place] [address] [facility] 02/19/24 Natalie Blum PA-C [address] [place] [address] [facility] 02/19/24 Middle School Principal Relationship Specialty Start Date End Date Lea Marie, INDUSTRIAL WELDER.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 [address] [place] [address] [facility] 02/19/24 Natalie Blum PA-C [address] [place] [address] [facility] 02/19/24 Middle School Principal Relationship Specialty Start Date End Date Lea Marie, RAYMOND.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 [address] [place] [address] [facility] 02/19/24 Natalie Blum PA-C [address] [place], [place] [address] [facility] 02/19/24 Middle School Principal Relationship Specialty Start Date End Date Lea Marie APRN.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 [address] [place] [address] [facility] 02/19/24 Natalie Blum PA-C [address] [place] [address] [facility] 02/19/24 Team Status: Inactive Member Role Status Dates SHAYY Silverio Primary Care Provider Active Start: June 23, 2024 End: June 23, 2024 Dr. Inna Garcia MD Attending Provider Active Start: June 23, 2024 End: June 23, 2024 Middle School Principal Relationship Specialty Start Date End Date Lea Marie, RAYMOND.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 [address] [place] [address] [facility] 02/19/24 Natalie Blum PA-C [address] [place], [place] [address] [facility] 02/19/24 Middle School Principal Relationship Specialty Start Date End Date Lea Marie, INDUSTRIAL WELDER.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 [address] [place] [address] [facility] 02/19/24 Natalie Blum PA-C [address] [place] [address] Riding Instructor Family Medicine 02/19/24 Middle School Principal Relationship Specialty Start Date End Date Shakeel Villasenor MD [address] [place] [address] PCP - General Family Medicine 03/20/21 06/06/24 Lea Marie, INDUSTRIAL WELDER.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 [address] [place] [address] Riding Instructor Family Medicine 02/19/24 Natalie Blum PA-C [address] [place] [address] Riding Instructor Family Medicine 02/19/24 Middle School Principal Relationship Specialty Start Date End Date Lea Marie, INDUSTRIAL WELDER.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 [address] [place] [address] Riding Instructor Family Medicine 02/19/24 Natalie Blum PA-C [address] [place] [address] Riding Instructor Family Medicine 02/19/24 Middle School Principal Relationship Specialty Start Date End Date Shakeel Villasenor MD [address] [place] [address] PCP - General Family Medicine 03/20/21 06/06/24 Lea Marie, INDUSTRIAL WELDER.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 [address] [place] [address] Riding Instructor Family Medicine 02/19/24 Natalie Blum PA-C [address] [place] [address] Riding Instructor Family Medicine 02/19/24 Middle School Principal Relationship Specialty Start Date End Date Lea Marie APRN.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 [address] [place] [address] Riding Instructor Family Medicine 02/19/24 Natalie Blum PA-C [address] [place] [address] Riding Instructor Family Medicine 02/19/24 Middle School Principal Relationship Specialty Start Date End Date Lea Marie APRN.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 [address] [place] [address] Riding Instructor Family Medicine 02/19/24 Natalie Blum PA-C [address] [place] [address] Riding Instructor Family Medicine 02/19/24 Middle School Principal Relationship Specialty Start Date End Date Lea Marie APRN.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 [address] [place] [address] Riding Instructor Family Medicine 02/19/24 Natalie Blum PA-C [address] [place] [address] [facility] 02/19/24 Middle School Principal Relationship Specialty Start Date End Date Lea Marie APRN.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 [facility] [place] [address] Riding Instructor Family Medicine 02/19/24 Natalie Blum PA-C [address] [place], [place] [address] Riding Instructor Family [facility] 02/19/24 Middle School Principal Relationship Specialty Start Date End Date Lea Marie APRN.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 [address] [place] [address] Riding Instructor Family Medicine 02/19/24 Natalie Blum PA-C [address] [place] [address] [facility] Middle School Principal Relationship Specialty Start Date End Date Lea Marie APRN.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 [address] [place] [address] Riding Instructor Family Medicine 02/19/24 Natalie Blum PA-C [address] [place] [address] [facility] Middle School Principal Relationship Specialty Start Date End Date Lea Marie APRN.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 [address] [place] [address] [facility] 02/19/24 Natalie Blum PA-C [address] [place] [address] [facility] 02/19/24 Middle School Principal Relationship Specialty Start Date End Date Lea Marie APRN.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 [address] [place] [address] [facility] 02/19/24 Natalie Blum PA-C [address] [place] [address] Riding Instructor Family Medicine 02/19/24 Team Status: Active Member Role/Relationship Status Dates No Primary Care Physician Family Provider Active SHAYY Silverio Primary Care Provider Active Team Status: Inactive Member Role/Relationship Status Dates SHAYY Silverio Primary Care Provider Active Start: June 23, 2024 End: June 23, 2024 Dr. Inna Garcia MD Attending Provider Active Start: June 23, 2024 End: June 23, 2024 Team Status: Inactive Member Role/Relationship Status Dates SHAYY Silverio Primary Care Provider Active Start: September 23, 2024 End: September 23, 2024 Kimi Smith CNM Attending Provider Active St art: September 23, 2024 End: September 23, 2024 Goals (unrecognized section and content) Goals may [...] over 15 Minutes, ONCE, 1 dose, On 06/01/23 at 1400, Please conduct a 30 minute [...] BE BASED ON THE PRIMARY CLINICAL RECORDS. [facility] [employer] [facility]. provides no warranty or guarantee of the accuracy or completeness of information in this document.
[2024-09-25] MEDS: Lactated Ringers 1,000 ML 999 ML IV (23:41)
[2024-09-25] MEDS: Penicillin G 3,000,000 Units 50 ML 100 UNITS IV (23:59)
[2024-09-26] VITALS (85 sets, daily range): BP systolic 97–146; BP diastolic 53–90; PULSE 70–99; RESP 14–20; TEMP 36.1–37.3; O2SAT 88–100
[2024-09-26] MEDS: fentaNYL-bupivacaine (epidural) 100 ML BAG EPIDURAL (03:57)
[2024-09-26] MEDS: Penicillin G 3,000,000 Units 50 ML 100 UNITS IV (04:20)
[2024-09-26] MEDS: Magnesium Sulfate 20 GM/500 ML BAG IV ×2 (04:40→15:21)
[2024-09-26] MEDS: Oxytocin 15 Units/NS 250ml 15 UNITS/250 ML IV.SOLN 83 UNITS IV (05:10)
--- NOTE | 2024-09-26 05:15 | OB.VAGDELI_ITS ---
Assessment & Plan (1) High-risk , elderly multigravida in third trimester: (2) High risk multigravida in third trimester: (3) Pre-eclampsia, severe, antepartum: (4) 34 weeks gestation of : (5) Vaginal delivery: (6) Rh negative state in antepartum period: (7) Polyhydramnios affecting : (8) Gestational diabetes requiring insulin: Maternal Data Information BELEM Calculator Estimated Delivery Date Method Current WG Current Estimate 11/05/24 Manual 34w 2d Final BELEM: 11/05/24 Gestational age: 24 2/7 Vaginal Delivery Maternal Presentation Maternal Presentation: Medically Indicated Induction Type of Induction: Pitocin Vaginal Delivery Information Procedure Performed: Spontaneous Vaginal Delivery Surgeon/Practitioner: Angie Escalera Date of Procedure: 09/26/24 Pre-Procedure Diagnosis: vaginal delivery Post-Procedure Diagnosis: same Type of anesthesia: Epidural Special Medications: dilauded 1 mg iv x1 Estimated Blood Loss: 500 cc Time of Delivery: 04:49 Findings Description of procedure: A vigorous male infant was delivered YUMIKO over an intact perineum. The remainder the was delivered with maternal pushing and gentle traction only in less than 15 seconds. The Pitocin infusion was initiated for active management of the third stage. The cord was clamped and cut after approximately 30 seconds as the infant was pink and had great tone and appeared to be attempting to cry but had not made an exhale yet. The was attended to by the waiting raise driller and nursing staff. The placenta was delivered spontaneously and intact. The vagina but appeared to be intact. There was some mild atony that responded to uterine massage, IV Pitocin and 1 dose of Hemabate. I was unable to tell if the right side of the cervix was a laceration or just normal defect but did not appear to be bleeding so the approximately 1 cm defect was oversewn with 2-0 Vicryl suture in a running locked fashion and was then hemostatic.. The uterus was then firm and bleeding was minimal. Sponge and needle counts were correct. A vaginal sweep was completed by me. 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
--- NOTE | 2024-09-26 05:45 | PLAC_PTH ---
PATIENT: LAINA DE LEÓN LOC: WP U#:[id number] AGE/SX: 29/F ROOM: WP014 RE09/25/[address]: Dr. Angie Escalera MD : 1995 BED: 1 DIS: 09/28/2024 SPEC #: [id number] RECD: 09/26/24 16:48 STATUS: JIMI KOROMA #: [id number] REYNALDO: 09/26/24 05:[address]: Angie Escalera DEPT: SURGICAL PATHOLOGY RECD BY: Tom Combs ENTERED: 09/27/24 08:59 SP TYPE: PLACENTA OTHR DR: SHAYY Alejandro Tissues: A - Placenta, NOS Procedures: Surgery Specimen Level V HEADER OPERATION: Vaginal delivery PRE-OP DIAGNOSIS: Pre-eclampsia TISSUE SUBMITTED: A- Placenta MICROSCOPIC DIAGNOSIS A. Placenta, gestation: 34 weeks / 2 days, vaginal delivery: * Eccentrically inserted and trivascular umbilical cord without active inflammation * Circumvallate inserted membranes without active inflammation * Mature placenta appearing older than stated gestational age of 34 weeks/2days, without active inflammation and with subchorionic fibrin involving ~ 50% of the surface MICROSCOPIC DESCRIPTION Slides are reviewed. GROSS DESCRIPTION A. Received in formalin labeled with the patient's name and date of is a 479 g, 16.7 x 13.9 x 3.4 cm irregular placental disc. The membranes are hill-pink, translucent to opaque with circumvallate insertion and a point of rupture located approximately 5.0 cm from the disc edge. The attached, trivascular umbilical cord measures 27.2 cm in length by 1.0-1.7 cm in diameter and inserts eccentrically, 4.3 cm from the disc edge. The surface is blue-purple with focal edema and patchy, subchorionic fibrin (>50%). The maternal surface is dark red-brown with a focally torn and frayed appearance however, the maternal surface appears complete. Sectioning reveals dark red, spongy parenchyma devoid of identifiable hemorrhages or fibrin next. Blower Room Attendant sections are submitted as follows: A1: Membrane rollA2: Umbilical cordA3: PlacentaA4: Placenta SC 09/27/2024PT:[id number]
[2024-09-26] MEDS: 0.9% Saline Lock 10 ML Syringe IV (05:49)
--- NOTE | 2024-09-26 10:16 | NURSING ---
Assessments,vital signs, neuro checks completed with student and charting reviewed.
--- NOTE | 2024-09-26 13:18 | NURSING ---
student charting reviewed-Thelma NEWBY
[2024-09-26] MEDS: Rho(D) Immune Globulin 300 MCG (1500 Unit) Syringe IV (14:13)
[2024-09-26] MEDS: Lactated Ringers 1,000 ML 25 ML IV (15:26)
[2024-09-26 16:47] LABS: Pathology Specimen OB SEE PATHOLOGY REPORT
[2024-09-27] VITALS (19 sets, daily range): BP systolic 100–117; BP diastolic 56–79; PULSE 68–95; RESP 16–18; TEMP 36.7–37.2; O2SAT 90–98
[2024-09-27] MEDS: Magnesium Sulfate 20 GM/500 ML BAG IV (01:28)
[2024-09-27 06:33] LABS: Hematocrit 26.5 % (37-47); Hemoglobin 8.2 g/dL (12.0-15.0); Immature Granulocytes Count 0.040 X10^3/uL (0.0-0.0); Mean Corp Hgb Conc 30.9 g/dL (32-36); Mean Corpuscular Volume 80.3 fL (81-99); Mean Platelet Vol. 9.6 fl (6.2-12.0); NRBC Flagged by Analyzer 0 % (0-5); Platelet Count 245 K/mm3 (150-450); RBC Distribution Width CV 15.2 % (11.6-14.6); RBC Distribution Width SD 44.7 fl (35.1-43.9); Red Blood Count 3.30 M/mm3 (4.2-5.4); White Blood Count 11.8 K/mm3 (4.4-11.0)
--- NOTE | 2024-09-27 08:17 | PCM.PROGNOTE ---
Subjective Subjective patient seen at bedside, doing well. Patient reports good pain control. lochia mild. pt denies DIEGO or epigastric pain Objective Data Objective Data Vital Signs: Vital Signs Temp Pulse Resp BP Pulse Ox O2 Del Method 98.2 F 73 16 117/69 94 Room Air 09/27/24 04:55 09/27/24 07:21 09/27/24 04:55 09/27/24 07:20 09/27/24 07:21 09/27/24 04:55 Oxygen Delivery Method Room Air Weight: 86.636 kg Body Mass Index (BMI) 33.8 Intake & Output: Intake and Output for Last 24 Hours 09/25/24 09/26/24 09/27/24 23:59 23:59 23:59 Intake Total 640.17 / 640.17 5119.83 / 5119.83 1003.33 / 1003.33 Output Total 800 / 800 6050 / 6050 0 / 0 Balance -159.83 / -159.83 -930.17 / -930.17 1003.33 / 1003.33 Lab / Micro Data 09/27/24 06:20 09/25/24 16:05 Labs: Laboratory Results - last 24 hr 09/26/24 09:20: Screen NEGATIVE, Baby's Blood Type A POSITIVE, Baby's BRODY NEGATIVE 09/27/24 06:20: WBC 11.8 H, RBC 3.30 L, Hgb 8.2 L, Hct 26.5 L, MCV 80.3 L, MCH 24.8 L, MCHC 30.9 L, RDW Std Deviation 44.7 H, RDW Coeff of Dorcas 15.2 H, Plt Count 245, MPV 9.6, Immature Gran % (Auto) 0.300, Neut % (Auto) 77.1 H, Lymph % (Auto) 14.0 L, [place] % (Auto) 7.4, Eos % (Auto) 1.0, Baso % (Auto) 0.2, Absolute Neuts (auto) 9.1 H, Absolute Lymphs (auto) 1.66, Nucleated RBC % 0 09/27/24 06:25: POC Glucose 76 Micro: Microbiology 09/25/24 17:30 Genital vaginal Group B Streptococcus (PCR) - Final Physical Exam Narrative Abd: fundus firm. no RUQ or epigastric pain Const alert and oriented x3 General Appearance: cooperative HEENT normocephalic Neck General: normal visual inspection GI soft to palpation and non-distended GI Narrative: Fundus firm Extremity normal to inspection and no calf tenderness Skin no rashes or lesions noted Neuro oriented x3 and CN's II-XII intact bilaterally Psych mental status grossly normal Assessment & Plan Assessment/Plan (1) Preeclampsia: (2) Vaginal delivery: (3) Chronic anemia: (4) Rh negative state in antepartum period: (5) Gestational diabetes requiring insulin: PLAN: Plan PPD#1 , delivered 34 weeks with preeclampsia with severe features Routine care pain mgmt ambulation baby transported to [facility]- pt understands she can be discharged tomorrow morning if BPs remain stable monitor VS
--- NOTE | 2024-09-27 08:20 | DCINST_ITS ---
Discharge Instructions DC O2, CPAP, BIPAP needs Home O2 Discharge instructions: No Dressing / Incision May resume sexual activity in: 6-8 weeks Dressing / Incision Call your doctor if you observe: Fever of 101 or Higher, Inability to urinate, Using more than 1 pad per hour and Uncontrolled pain Follow Up Care Please Follow Up With: Angie Escalera MD When: 1 week post and again at 6 weeks post . [phone]: if you had PREECLAMPSIA or other Blood pressure concerns in labor you should be seen in 48-72 hours in the office. Test Results: Test results from this visit will be discussed in further detail at your follow- up appointment, if applicable. Discharge Plan Admission Admit Date/Time: 09/25/24 17:40 Attending Provider: Angie Escalera Primary Care Provider: Natalie Blum Discharge Orders/Prescriptions Prescriptions: No Action PNV cmb#95-ferrous fumarate-FA [ Multivitamins] 1 EACH tablet 1 ea PO DAILY aspirin [Aspirin Childrens] 81 mg tablet,chewable 1 tab PO DAILY ferrous sulfate [Feosol] 325 mg (65 mg iron) tablet 325 mg PO BID Humulin N NPH Insulin KwikPen 100 unit/mL (3 mL) insulin pen 32 unit subcut DAILY Patient Comments: in AM Humulin N NPH Insulin KwikPen 100 unit/mL (3 mL) insulin pen 16 unit subcut DAILY Patient Comments: at night Referrals / Follow Up: Natalie Blum PA [Primary Care Provider] -
--- NOTE | 2024-09-27 08:21 | DCINST_ITS ---
Discharge Instructions DC O2, CPAP, BIPAP needs Home O2 Discharge instructions: No Dressing / Incision May resume sexual activity in: 6-8 weeks Dressing / Incision Call your doctor if you observe: Fever of 101 or Higher, Inability to urinate, Using more than 1 pad per hour and Uncontrolled pain Follow Up Care Please Follow Up With: Angie Escalera MD Test Results: Test results from this visit will be discussed in further detail at your follow- up appointment, if applicable. Discharge Plan Admission Admit Date/Time: 09/25/24 17:40 Attending Provider: Angie Escalera Primary Care Provider: Natalie Blum Discharge Orders/Prescriptions Prescriptions: New acetaminophen 500 mg Tablet 1,000 mg PO Q6H PRN PRN (Reason: Pain 1-10 Or Fever) Qty: 0 0RF ibuprofen 600 mg Tablet 600 mg PO Q6H PRN PRN (Reason: Pain Score 1-10) Qty: 0 0RF Continued ferrous sulfate [Feosol] 325 mg (65 mg iron) tablet 325 mg PO BID Discontinued PNV cmb#95-ferrous fumarate-FA [ Multivitamins] 1 EACH tablet 1 ea PO DAILY aspirin [Aspirin Childrens] 81 mg tablet,chewable 1 tab PO DAILY Humulin N NPH Insulin KwikPen 100 unit/mL (3 mL) insulin pen 32 unit subcut DAILY Patient Comments: in AM Humulin N NPH Insulin KwikPen 100 unit/mL (3 mL) insulin pen 16 unit subcut DAILY Patient Comments: at night Referrals / Follow Up: Natalie Blum PA [Primary Care Provider] -
[2024-09-28 01:43] VITALS: BP 128/75; PULSE 68; PULSE 74; RESP 18; TEMP 36.4; O2SAT 95
--- NOTE | 2024-09-28 07:38 | PCM.PROGNOTE ---
Subjective Subjective patient seen at bedside, doing well. Patient reports good pain control. lochia mild. denies DIEGO, visual changes, epigastric pain. pt requesting dc home due to baby at [facility]. Objective Data Objective Data Vital Signs: Vital Signs Temp Pulse Resp BP Pulse Ox O2 Del Method 97.6 F L 74 18 128/75 H 95 Room Air 09/28/24 01:43 09/28/24 01:43 09/28/24 01:43 09/28/24 01:43 09/28/24 01:43 09/28/24 01:43 Oxygen Delivery Method Room Air Weight: 86.636 kg Body Mass Index (BMI) 33.8 Intake & Output: Intake and Output for Last 24 Hours 09/26/24 09/27/24 09/28/24 23:59 23:59 23:59 Intake Total 5119.83 / 5119.83 1003.33 / 1003.33 Output Total 6050 / 6050 0 / 0 Balance -930.17 / -930.17 1003.33 / 1003.33 Lab / Micro Data 09/27/24 06:20 09/25/24 16:05 Micro: Microbiology 09/25/24 17:30 Genital vaginal Group B Streptococcus (PCR) - Final Physical Exam Narrative Abd: fundus firm. no RUQ or Epigastric pain Const alert and oriented x3 General Appearance: cooperative HEENT normocephalic Neck General: normal visual inspection GI soft to palpation and non-distended GI Narrative: Fundus firm Extremity normal to inspection and no calf tenderness Skin no rashes or lesions noted Neuro oriented x3 and CN's II-XII intact bilaterally Psych mental status grossly normal Assessment & Plan Assessment/Plan (1) Chronic anemia: (2) Preeclampsia: (3) Vaginal delivery: (4) Rh negative state in antepartum period: (5) Gestational diabetes requiring insulin: PLAN: Plan PPD# 2 , Doing well Routine care pain mgmt ambulation dc home- needs follow up in office monday 10/02 for BP check BP monitoring at home reviewed and when to call d/w patient
[2024-09-28 07:50] VITALS: BP 133/80; PULSE 69
--- NOTE | 2024-09-28 10:06 | CASEMGMT ---
Social Work Assessment Labor and Delivery Unit Patient Address: [address] [place] [address] [place] [address] Phone number: [phone] Date of Referral: 09/27/24 Time of Referral:? 841 Referred By: Dr. Escalera Date of Intervention: ??09/27/24 Time of Intervention:? 1449 Reason for Referral:? depression Sw completed chart review, and notes social work consult. Sw presented to bedside and introduced self to mother of baby, (MOB- Seda) and father of baby (FOB- Abe). Sw explained reason for sw involvement and completed psychosocial assessment. History obtained from: medical records, MOB and FOB Household composition: Currently residing in the family home is ANEL, DERRICK, their three older children: Ashley (6), Brent (4), Marcia (1) and baby when ready for discharge. Parents deny any problems or concerns with their housing, reporting it to be safe and secure. Patient's parent/guardian status:? ?ANEL states that she and DERRICK have been together for 7 years after meeting each other through mutual friends. No concerns reported of domestic violence or intimate partner violence. Medical History: ?ANEL is 29 year old female who is 4, para 3- now 4 following labor and delivery of . ANEL received routine care during with [facility]. ANEL presented to hospital and delivered baby early at 34 weeks gestation due to severe pre-eclampsia via vaginal delivery. Baby boy, named Valentín Miller, was initially transferred to [facility] due to prematurity and respiratory distress, and then required transfer to [facility]'s NICU for worsening respiratory distress and need for CPAP. ANEL reports that baby will be followed by Dr. Sams for pediatrics. Educational Status:? Both parents attended college and deny problems with reading, learning or comprehension Financial Status: Both parents are gainfully employed outside of the home, MOB works for [employer] and FOB is an non licensed nuclear equipment operator. Infant Supplies:?? All necessary baby supplies obtained, including: car seat, safe sleep space, clothes, diapers and wipes. Childcare/Caregiver(s):? MOB will be the primary caregiver to baby along with FOB when he is not working. Transportation:?? Both parents have their drivers license along with reliable means of transportation, no barriers at this time. Programs/Agencies Involved: ???ANEL is connected to WIC and insurance through [facility] Children Services/Legal Issues:??No history of children services involvement, no issues or concerns warranting a referral to be made ? Behavioral Health Issues: ??Mental Health History:?FOBrian denies mental health history. ANEL denies mental health history, and also denies experiencing baby blues or depression or anxiety following her other deliveries. ?? Substance Use History: Parents deny substance use history prior to and during . ?? Family History:??Parents report that neither family has history of substance use or abuse or significant mental health diagnoses. ??? Drug Screens: No drug screens observed while completing chart review. ?? Family/Social Stressors:?Parents report that although required transfer to NICU they are not bothered by this. Both parents state that if this would be their first baby they may be more stressed, but they state they have experience going to [facility], so they are able to easily navigate the hospital. MOB states that she is eager to be discharged so that she can go be with baby. Support Systems: ANEL reports that DERRICK is her biggest support person Depression/Shaken Baby/Safe Sleeping:? Sw educated parents on signs and symptoms of baby blues and depression and anxiety. MOB states that she has heard these terms but does not think that she has ever experienced any of these symptoms. FOB states that MOB usually does pretty well during her times. MOB states that naturally several days after delivery she can be tearful, but she does not believe that it has ever turned into anything more than that. Francine explained to parents that due to their baby being born early and requring transfer to NICU they may be more at risk for experiencing some of these symptoms this time. Parents expressed understanding. FOB states that if MOB were to struggle he would be able to recognize that. MOB states that she feels well now that baby has been born, and states that she felt well mentally during her . Sw educated parents on shaken baby prevention and ABCs of safe sleep, parents express understanding. ASSESSMENT:? MOB admitted following labor and delivery of . Baby required transfer to [facility] NICU due to prematurity and respiratory distress requiring CPAP. MOB and FOB relatively calm about this and are not worried or stressed out. MOB denies having experienced baby blues or depression/ anxiety in the past. MOB states that her other children have had specialist at [facility] which has required them to be there frequently so they are familiar with the campus and where to park and how to access the NICU. Sw offered to answer any questions that they may have at this time regarding the NICU and what to expect about their length of stay or NICU experience. Parents were welcoming of sw and engaging throughout completion of assessment. Parents made and maintained eye contact and conversation flowed naturally. Parents have obtained all necessary baby supplies and have natural supports in place. PLAN:? No other services requested or indicated. MOB and baby to be discharged when medically ready. Parents were provided literature regarding: signs and symptoms of baby blues and mood and anxiety disorders, Help Me Grow, shaken baby prevention, ABCs of safe sleep and a list of county resources that are available for them should any needs present themselves. Sergei Hernandez, XEROX MACHINE OPERATOR, ENVIRONMENTAL JOURNALIST
--- NOTE | 2024-10-02 14:19 | NURSING ---
Pt. doing well. Still pumping, denies questions about this. Pt. denies issues with lochia, no headache, vision changes, or s+s of baby blues. Verbalized understanding of discharge instructions. No questions at this time. Encouragement and support given. Pt. reports infant is still at [facility] on CPAP.
== END 2024-09-28 08:20 | disposition home or self-care (01) | DRG 542 ==
LOC: WPOUT 17:42 → WP 17:42
PROVIDERS: Obstetrics & Gynecology; Admitting Provider Obstetrics & Gynecology; PCP Physician Assistant; Referring Provider Obstetrics & Gynecology; Visit Provider Obstetrics & Gynecology
DX: O14.14 Severe pre-eclampsia complicating childbirth (principal); Z37.0 Single live birth; O60.14X0 Preterm labor third trimester with preterm delivery third trimester, not applicable or unspecified; O24.424 Gestational diabetes mellitus in childbirth, insulin controlled; O40.3XX0 Polyhydramnios, third trimester, not applicable or unspecified; O26.893 Other specified pregnancy related conditions, third trimester; Z67.11 Type A blood, Rh negative; O99.02 Anemia complicating childbirth; O62.2 Other uterine inertia; O71.3 Obstetric laceration of cervix; Z3A.34 34 weeks gestation of pregnancy; Z87.59 Personal history of other complications of pregnancy, childbirth and the puerperium
CPT/HCPCS: 36415; 59025; 59050; 82565; 82570; 82962; 84156; 84450; 84460; 84550; 85025; 85027; 85461; 86780; 86850; 86900; 86901; 87081; 87653; 88307; 90384; 99221; A4216; G0378; J2405; J2790; J2791